=== PATIENT | female | born 1945 | race Caucasian/White ===

== ENCOUNTER → 2016-07-01 | Outpatient (CLI) | payer BC ==
[~2016-07-01] MED LIST: ALPR0.25 PO; AMLO5TAB4 PO; APR25 PO; ASPCH81X PO; ATEN50TA8 PO; CARV12.52 PO; CHOL100010 PO; CLB/200 PO; FLUO40CA8 PO; FLUT0.15 NAE; FURO-85 PO; FURO20TA PO; GABA-1218 PO; GLC/500 PO; HYDR-4717 PO; HYDR200T5 PO; HYT/2 PO; IRON5TAB PO; LPT/40 PO; MECL1TAB40 PO; NITR0.1S UT; NITRSPR6 OR; NRV5 PO; OMEP20CA59 PO; OXYSR10 PO; PANT40TA PO; SNK PO; TAMS0.4C38 PO; VSC/10 PO
[2016-07-01 18:29] LABS: BLOOD UREA NITROGEN 24 mg/dl (7-18); BUN/CREATININE RATIO 29.1 (10-20); CALCIUM 9.3 mg/dl (8.5-10.1); CARBON DIOXIDE 26 mmol/L (21-32); CHLORIDE 107 mmol/L (98-107); CREATININE 0.82 mg/dl (0.60-1.20); GLUCOSE 104 mg/dl (70-99); POTASSIUM 4.3 mmol/L (3.5-5.1); SODIUM 142 mmol/L (136-145)
[2016-07-02 06:54] LABS: ESTIMATED AVERAGE GLUCOSE 128 mg/dl; HA1C FLAG Normal (Normal)
== END | disposition home or self-care (01) ==
LOC: C.LABPVFM 16:04
PROVIDERS: ATTEND Family Medicine
DX: E11.9 Type 2 diabetes mellitus without complications (principal)

== ENCOUNTER → 2016-09-30 | Outpatient (CLI) | payer BC ==
--- NOTE | 2016-10-01 07:55 | MAMMOGRAPHY REPORT ---
UNILATERAL LEFT DIGITAL SCREENING MAMMOGRAM TOMOSYNTHESIS WITH CAD: 09/30/2016 CLINICAL HISTORY: Asymptomatic. Personal history of breast cancer. TECHNIQUE: Breast tomosynthesis in addition to standard 2D mammography was performed. Current study was also evaluated with a Computer Aided Detection (CAD) system. Left CC and MLO 2-D and tomosynth esis images were obtained. COMPARISON: Comparison is made to exams dated: 09/30/2015 mammogram, 09/28/2014 mammogram, 09/26/2013 [facility] mogram, 09/21/2012 mammogram, 09/21/2011 mammogram, and 09/30/2010 ultrasound biopsy - [facility]. BREAST COMPOSITION: There are scattered areas of fibroglandular density in the left breast. FINDINGS: There are no suspicious masses, calcifications, or areas of architectural distortion note d in the left breast. There has been no significant interval change compared to prior exams. IMPRESSION: ACR BI-RADS CATEGORY 1: NEGATIVE There is no mammographic evidence of malignancy. A 1 year screening mammogram is recommended. The p atient will receive written notification of the results. Approximately 10% of breast cancers are not detected with mammography. A negative mammographic repor t should not delay biopsy if a clinically suggestive mass is present. Lou Qureshi M.D. ah/:09/30/2016 15:41:25 Orange Peel Operator: Lissy STOREY)(Manuel), [facility] letter sent: Normal 1/2 BI-RADS Code: ACR BI-RADS Category 1: Negative
== END | disposition home or self-care (01) ==
LOC: EDSEX → C.MAMM 14:14
PROVIDERS: ATTEND Surgery
DX: Z12.31 Encounter for screening mammogram for malignant neoplasm of breast (principal); Z85.3 Personal history of malignant neoplasm of breast; Z90.11 Acquired absence of right breast and nipple

== ENCOUNTER → 2017-02-16 | Outpatient (CLI) | payer BC ==
[~2017-02-16] MED LIST changes: -CARV12.52 PO; -FURO20TA PO; -GABA-1218 PO; +GABA300C19 PO; -HYT/2 PO; -NITR0.1S UT; +NITR0.4S76 UT; -NRV5 PO
[2017-02-16 18:05] LABS: HEMATOCRIT 39.8 % (37-47); MEAN CORPUSCULAR HEMOGLOBIN 30.7 pg (25-34); MEAN CORPUSCULAR HGB CONC 30.4 g/dl (32-36); MEAN PLATELET VOLUME 9.3 fL (7.4-10.4); PLATELET COUNT 185 K/uL (130-400); RED BLOOD COUNT 3.94 M/uL (4.2-5.4); WHITE BLOOD COUNT 7.53 K/uL (4.8-10.8)
[2017-02-16 18:23] LABS: BLOOD UREA NITROGEN 16 mg/dl (7-18); BUN/CREATININE RATIO 20.2 (10-20); CALCIUM 9.3 mg/dl (8.5-10.1); CARBON DIOXIDE 28 mmol/L (21-32); CHLORIDE 107 mmol/L (98-107); CREATININE 0.81 mg/dl (0.60-1.20); GLUCOSE 120 mg/dl (70-99); POTASSIUM 4.5 mmol/L (3.5-5.1); SODIUM 141 mmol/L (136-145)
[2017-02-17 06:32] LABS: ESTIMATED AVERAGE GLUCOSE 131 mg/dl; HA1C FLAG Normal (Normal)
== END | disposition home or self-care (01) ==
LOC: C.LABPVFM 11:25
PROVIDERS: ATTEND Family Medicine
DX: E87.5 Hyperkalemia (principal); E11.40 Type 2 diabetes mellitus with diabetic neuropathy, unspecified; D64.9 Anemia, unspecified

== ENCOUNTER → 2017-03-30 | Outpatient (CLI) | payer BC ==
[~2017-03-30] MED LIST changes: -CLB/200 PO; -FLUT0.15 NAE; -GABA300C19 PO; -HYDR-4717 PO; -HYDR200T5 PO; -IRON5TAB PO; -NITR0.4S76 UT; -PANT40TA PO
[2017-03-30 12:19] LABS: BASO % 0.4 %; BASO ABS # 0.03 K/uL (0-0.2); COMPLETE YES; EOS % 2.9 %; HEMATOCRIT 36.3 % (37-47); IG% 0.4 %; LYMPH % 29.8 %; LYMPH ABS # 2.06 K/uL (1.2-3.4); MEAN CELL VOLUME 98.6 fL (80-100); MEAN CORPUSCULAR HEMOGLOBIN 31.5 pg (25-34); MEAN PLATELET VOLUME 9.1 fL (7.4-10.4); MONO % 7.9 %; NEUT % 58.6 %; PLATELET COUNT 151 K/uL (130-400); RED BLOOD COUNT 3.68 M/uL (4.2-5.4); WHITE BLOOD COUNT 6.92 K/uL (4.8-10.8)
[2017-03-30 12:28] LABS: ALT/SGPT 16 U/L (12-78); AST/SGOT 14 U/L (15-37); CREATININE 0.78 mg/dl (0.60-1.20)
[2017-03-30 12:29] LABS: ALKALINE PHOSPHATASE 67 U/L (45-117)
== END | disposition home or self-care (01) ==
LOC: C.LAB1850 10:02
PROVIDERS: ATTEND Internal Medicine Rheumatology
DX: Z51.81 Encounter for therapeutic drug level monitoring (principal); M15.9 Polyosteoarthritis, unspecified; M70.62 Trochanteric bursitis, left hip; Z79.899 Other long term (current) drug therapy

== ENCOUNTER 2017-05-26 06:56 | Inpatient (IN) | payer BC, OTHER ==
[2017-05-26] VITALS (25 sets, daily range): BP systolic 126–196; BP diastolic 61–127; PULSE 59–85; TEMP 36.4–36.6; O2SAT 92–100; Ht 172.7 cm; Wt 106.2 kg
[~2017-05-26] VITALS: Ht 172.7 cm; Wt 106.2 kg
[~2017-05-26 06:56] MED LIST changes: -APR25 PO; -ATEN50TA8 PO; -CHOL100010 PO; +FLUT0.15 NAE; -FURO-85 PO; +GABA-1218 PO; +HYDR-4717 PO; +HYDR200T5 PO; +IRON5TAB PO; +NITR0.1S UT; -NITRSPR6 OR; -OMEP20CA59 PO; -OXYSR10 PO; +PANT40TA PO; -SNK PO; -TAMS0.4C38 PO; -VSC/10 PO
[2017-05-26] MEDS ORDERED: CARV12.52 PO (07:31)
[2017-05-26] MEDS ORDERED: FURO20TA PO (07:31)
[2017-05-26] MEDS ORDERED: HEPARIN SOD (PORCINE) 1000 UNIT/ML 10 ML VIAL ONE (07:48)
[2017-05-26] MEDS ORDERED: NITROGLYCERIN/D5W 100MCG/ML 20ML SYR ONE (07:48)
[2017-05-26] MEDS ORDERED: FENTANYL CITRATE INJ 50 MCG/1 ML 2 ML VIAL ONE (07:48)
[2017-05-26] MEDS ORDERED: NiCARDipine HCL INJ 2.5 MG/ML 10 ML AMP ONE (07:48)
[2017-05-26] MEDS ORDERED: MIDAZOLAM HCL 1 MG/ML 2ML VIAL ONE (07:48)
--- NOTE | 2017-05-26 07:57 | History & Physical Bridge Note ---
H&P Re-Evaluation Bridge Note: I have examined the patient, reviewed the History & Physical and in the interval since the performance of the History & Physical I have noted the following changes of clinical significance: No changes noted
--- NOTE | 2017-05-26 08:01 | Procedure Note ---
Pre-Mod Sedation Assessment General Date of Moderate Sedation: May 26, 2017. Vital Signs: Vital Signs Past 12 Hours Date Time Temp Pulse Resp B/P (MAP) Pulse Ox O2 Delivery O2 Flow Rate FiO2 05/26/17 07:15 36.6 63 18 160/86 97 Room Air Review Cardiovascular: regular rate, rhythm, no edema, no JVD, no murmur Abdomen: normal bowel sounds, non tender, soft Lungs: chest non-tender, lungs clear, normal breath sounds Pre-Sedation Airway Assessment Oral Cavity: Dentures Short Thick Neck: No Hx of Sleep Apnea: No Smoking Status: Former Smoker Mallampati Classification: Class III ASA Classification: Class II Procedure Planning Contraindications-for Mod Sed: None Yes Notes The planned sedation has been discussed with the patient and consent obtained. I have identified the patient, determined the appropriateness of sedation and have assessed the patient immediately prior to the procedure. All medicine(s) and interventions are by my order.
--- NOTE | 2017-05-26 09:34 | Procedure Note ---
Post-Mod Sedation Assessment General Date of Moderate Sedation May 26, 2017. Vital Signs: Vital Signs Past 12 Hours Date Time Temp Pulse Resp B/P (MAP) Pulse Ox O2 Delivery O2 Flow Rate FiO2 05/26/17 09:20 55 18 149/69 (95) 99 Oxymask 05/26/17 07:15 36.6 63 18 160/86 97 Room Air Review - Discharge Criteria Vital Signs Stable: Yes Alert/Oriented/Conversant: Yes Returned to Baseline Mental St: Yes Nausea Absent/Minimal: Yes Pain/Discomfort/Absent/Minimal: Yes Normal/Baseline Respirations: Yes Active Bleeding?: No Pt Received D/C Instructions: Yes Prescriptions Given: None Specific Proced. D/C Criteria Distal Pulses Present (Cardiac: Yes Groin site assessed-Card Cath: Yes Voided Prior To Discharge: Yes Discharged Patients Adult Escort/Transportation: Yes
--- NOTE | 2017-05-26 09:55 | DIAGNOSTIC IMAGING REPORT ---
HEAD WITHOUT CONTRAST (CT) CLINICAL HISTORY: 71 years-old Female presenting with facial asymmetry, left sided numbness. TECHNIQUE: Multidetector CT imaging of the head was performed without the use of intravenous contrast. IV contrast: None. A dose lowering technique was used consistent with the principles of ALARA (as low as reasonably achievable). COMPARISON: 04/10/2017. CT DOSE (mGy.cm): The estimated cumulative dose is 537.48 mGy.cm. FINDINGS: Bank Compliance Officer topogram: Unremarkable. Ventricles and sulci normal in size. Brain parenchyma normal in appearance with preserved head-white differentiation. No mass effect or midline shift. No hemorrhage or acute territorial infarct. No extra-axial fluid collection. Paranasal sinuses and mastoid air cells clear. Calvarium intact. IMPRESSION: 1. No acute intracranial abnormality. Electronically signed by: Neeraj Gandhi M.D. 05/26/2017 9:54 AM Dictated Date/Time: 05/26/2017 9:51 AM
--- NOTE | 2017-05-26 10:21 | Cardiac Catheterization ---
Procedure Note Procedure Date May 26, 2017. Pre-Procedure Diagnosis Positive Stress Test, CAD, Cardiothoracic Symptom AUC Score 8 Post-Procedure Diagnosis Mild CAD Procedure(s) Performed Coronary Angiography, Left Heart Cath Wallpaper Inspector And Shipper Dr. 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 Moderate to severe distal abdominal aortic stenosis. Hemodynamics Rest Ao: 149/56/93 Final Ao: 159/56/94 LV: 160/0/13 Recommendations Medical therapy and/or Counseling Specimens None Radiation Exposure (mGy) 826 Contrast (mls) 100 Anesthesia Moderate sedation. Start 0818. End 0917. Sedation monitor Ernesto GOMES Procedural Complication(s) facial asymmetry concerning for TIA / CVA. Stroke alert called. Disposition ICU ACC Data Cardiac Status Clinical evaluation leading to the procedure CAD Presntation: Positive Stress Test Anginal Classification: CCS II Heart Failure: No Stress Testing w/SPECT MPI: Yes - Positive, Risk/Extent of Ischemia (High) Coronary Anatomy Dominant: Right Left Main (% Stenosis): Proximal (20%) LAD (% Stenosis): Mid (10%), Distal (20%) Circumflex (% Stenosis): Normal RCA (% Stenosis): Proximal (20% in area of moderate calcification), Mid (30% ini area of moderate calcification) R PDA (% Stenosis): Ostial (20%) Ramus (% Stenosis): Normal Diagnostic Status: Elective Closure Device Percutaneous Entry Location: Femoral (Unable to pass wire due to brachiocephali )
[2017-05-26] MEDS ORDERED: FUROSEMIDE 20 MG TAB PO PRN (10:30)
[2017-05-26 10:37] LABS: BASO % 0.3 %; BASO ABS # 0.02 K/uL (0-0.2); EOS % 1.5 %; HEMATOCRIT 35.8 % (37-47); LYMPH % 25.4 %; LYMPH ABS # 1.52 K/uL (1.2-3.4); MEAN CELL VOLUME 98.1 fL (80-100); MEAN PLATELET VOLUME 8.7 fL (7.4-10.4); MONO % 9.3 %; NEUT % 63.5 %; PLATELET COUNT 130 K/uL (130-400); RED BLOOD COUNT 3.65 M/uL (4.2-5.4); WHITE BLOOD COUNT 5.99 K/uL (4.8-10.8)
[2017-05-26 10:48] LABS: COMPLETE YES; MEAN CORPUSCULAR HGB CONC 31.6 g/dl (32-36)
[2017-05-26 11:00] LABS: ALB/GLOB RATIO 1.2 (0.9-2); BUN/CREATININE RATIO 24.8 (10-20); CREATININE 0.73 mg/dl (0.60-1.20)
[2017-05-26] MEDS ORDERED: ACETAMINOPHEN 325 MG TAB ONE (12:44)
--- NOTE | 2017-05-26 12:48 | Critical Care Consultation ---
Critical Care Consultation Date of Consultation: May 26, 2017. Attending Physician: Reynold Kitchen DO Reason for Consultation: CVA symptoms during cardiac catheterization with nonobstructive CAD History of Present Illness Polymerization Helper: Dr. Bañuelos This is a 71-year-old female that presented earlier today for an elective cardiac catheterization with Dr. Kitchen. The patient previously had [place] and was treated in 1991. She also has a history of breast cancer which was treated with modified radical mastectomy. The patient follows with Dr. Pelayo at the [facility]. She is most recently seen by Dr. Morris for hospital follow-up from her recent admission to [facility]. The patient does have a history of uncontrolled hypertension and has been reporting blood pressures in the 180s and 190s. At the office sure his reported that her blood pressure is constantly above 150 systolic and cons above a diastolic of 80. For blood pressure control the patient takes amlodipine, carvedilol, hydralazine, and furosemide. She was recently seen by Ray Monsivais PA-C at [facility]. She was referred by him to Dr. Kitchen for the cardiac catheterization. During the procedure today, the patient experienced facial asymmetry, numbness and tingling of the extremities. A stroke alert was called and telemedicine was used to communicate with the stroke neurologist at [facility]. His evaluation was to continue with conservative treatment and monitor overnight. The patient is currently on aspirin 81 mg daily which she felt was adequate for her symptoms. At the time of my examination the patient denied any nausea or vomiting. She had minimal residual numbness and tingling of the hand and fingers. She had no aphasia. She denied headache to me but complained of headache to the nurse for which she was treated with acetaminophen. She has no other neurological deficits. Past Medical/Surgical History Medical Problems: (1) CVA (cerebral vascular accident) (2) Diabetes mellitus type 2 managed with metformin with most recent hemoglobin A1c below 7 (3) Dyslipidemia (4) History of breast cancer (5) HTN (hypertension) (6) Hypertensive emergency (7) IBS (irritable bowel syndrome) (8) osteoarthritis (9) diabetic neuropathy (10) history of vertigo (11) GERD (12) depression/anxiety Surgical Problems: (1) H/O repair of right rotator cuff with history of shoulder replacement (2) History of bilateral knee arthroplasty (3) History of cholecystectomy (4) History of modified radical mastectomy of right breast (5) Status post renal artery angioplasty Family History Asthma Diabetes mellitus Hypertension Myocardial infarction Stroke Family history of acute myocardial disease Family history of diabetes mellitus Family history of stroke syndrome Mother with history of heart disease Social History Smoking Status: Former Smoker (quit in 1991) Smokeless Tobacco Use: No Alcohol Use: none Drug Use: none Marital Status: Housing Status: lives with family 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) Allergies Coded Allergies: NSAIDs (Verified Adverse Reaction, Unknown, GI UPSET, 04/10/17) Nadolol (Verified Adverse Reaction, Unknown, GI UPSET, 04/10/17) Nitroglycerin (Verified Adverse Reaction, Unknown, HEADACHE, 04/10/17) Home Medications Scheduled Amlodipine Besylate (Norvasc), 2.5 MG PO QAM Aspirin (Aspirin Chewable), 81 MG PO DAILY Atorvastatin (Lipitor), 40 MG PO QPM Carvedilol (Coreg), 1 TAB PO BID Fluoxetine Hcl (Prozac), 40 MG PO QAM Furosemide (Lasix), 1 TAB PO PRN Gabapentin (Neurontin), 300 MG PO HS Hydralazine Hcl (Apresoline), 50 MG PO TID Hydroxychloroquine Sulfate (Plaquenil), 200 MG PO BIDM Iron-Vitamin C (Iron 100/C), 1 TAB PO DAILY Metformin Hcl (Glucophage), 500 MG PO TID Pantoprazole (Protonix), 40 MG PO DAILY Scheduled PRN Meclizine Hcl (Meclizine Hcl), 1 TAB PO Q8 PRN for Dizziness or Vertigo Nitroglycerin (Nitroglycerin Lingual), 1 SPRAY UT UD PRN for CHEST PAIN Current Inpatient Medications Current Inpatient Medications Medications (Trade) Dose Ordered Sig/Miguelito Route Start Time Stop Time Status Last Admin Dose Admin Amlodipine Besylate (Norvasc Tab) 2.5 mg QAM PO 05/27/17 09:00 06/26/17 08:59 Aspirin (Ecotrin Tab) 81 mg DAILY PO 05/27/17 09:00 06/26/17 08:59 Atorvastatin Calcium (Lipitor Tab) 40 mg QPM PO 05/26/17 21:00 06/25/17 20:59 Carvedilol (Coreg Tab) 12.5 mg BID PO 05/26/17 21:00 06/25/17 20:59 Fluoxetine HCl (Prozac Cap) 40 mg QAM PO 05/27/17 09:00 06/26/17 08:59 Furosemide (Lasix Tab) 20 mg DAILY PRN PO 05/26/17 10:30 06/25/17 10:29 Gabapentin (Neurontin Cap) 300 mg HS PO 05/26/17 21:00 06/25/17 20:59 Hydralazine HCl (Apresoline Tab) 50 mg TID PO 05/26/17 14:00 06/25/17 13:59 Hydroxychloroquine Sulfate (Plaquenil Tab) 200 mg BIDM PO 05/26/17 16:30 06/25/17 17:59 Pantoprazole Sodium (Protonix Tab) 40 mg DAILY PO 05/27/17 09:00 06/26/17 08:59 Review of Systems A total of 12 systems was reviewed and is negative other than as listed above in the HPI Physical Exam Date Time Temp Pulse Resp B/P (MAP) Pulse Ox O2 Delivery O2 Flow Rate FiO2 05/26/17 12:10 36.4 60 16 178/83 (114) 98 Room Air 05/26/17 12:00 97 Room Air 05/26/17 12:00 36.4 60 16 178/83 (114) 96 Room Air 05/26/17 11:55 61 14 185/92 (123) 98 05/26/17 11:40 36.4 60 19 184/81 (115) 96 05/26/17 11:25 36.5 85 18 185/84 (117) 100 Room Air 05/26/17 11:00 36.6 60 20 173/74 (107) 98 Room Air 05/26/17 10:45 59 16 172/82 (112) 99 Room Air 05/26/17 10:30 63 16 168/127 (141) 95 Room Air 05/26/17 10:15 36.4 59 14 162/97 (118) 97 Room Air 05/26/17 10:00 36.4 59 19 155/81 (105) 97 Room Air 05/26/17 09:56 36.4 59 19 155/81 97 Room Air 05/26/17 09:35 55 18 140/61 (87) 96 Room Air 05/26/17 09:20 55 18 149/69 (95) 99 Oxymask 05/26/17 07:15 36.6 63 18 160/86 97 Room Air GENERAL : No acute distress. Pleasant EYES: No icterus, gaze conjugate. EOMI. Pupils equal and reactive NOSE: No evidence of epistaxis. MOUTH: No lesions or candidiasis. Upper and lower dentures in place. No tongue deviation NECK: Supple. No carotid bruits or stridor appreciated LUNGS: CTA B/L, no wheezes, rales or rhonchi. Unable to listen to posterior lung enriquez secondary to mandatory supine position status post groin approach for catheterization HEART: Regular, rate controlled. No murmurs gallops or rubs appreciated. Rate in the 60s ABDOMEN: Soft, NT, ND, BS Present. No rebound tenderness or guarding EXTREMITIES: No LE edema, pedal pulses intact. Patient with what appeared to be sebaceous cysts on bilateral shins. No discharge. No open wounds. NEURO: A&OX3. Facial asymmetry has resolved. Patient has slight pronator drift at onset of symptoms. This has resolved. No other neurological focal signs. Unable to ambulate secondary to recent procedure. NIH scale 3 per [place] neurologist Laboratory Results Last 24 Hours Test 05/26/17 10:28 White Blood Count 5.99 K/uL Red Blood Count 3.65 M/uL Hemoglobin 11.3 g/dL Hematocrit 35.8 % Mean Corpuscular Volume 98.1 fL Mean Corpuscular Hemoglobin 31.0 pg Mean Corpuscular Hemoglobin Concent 31.6 g/dl Platelet Count 130 K/uL Mean Platelet Volume 8.7 fL Neutrophils (%) (Auto) 63.5 % Lymphocytes (%) (Auto) 25.4 % Monocytes (%) (Auto) 9.3 % Eosinophils (%) (Auto) 1.5 % Basophils (%) (Auto) 0.3 % Neutrophils # (Auto) 3.80 K/uL Lymphocytes # (Auto) 1.52 K/uL Monocytes # (Auto) 0.56 K/uL Eosinophils # (Auto) 0.09 K/uL Basophils # (Auto) 0.02 K/uL RDW Standard Deviation 46.8 fL RDW Coefficient of Variation 13.1 % Immature Granulocyte % (Auto) 0.0 % Immature Granulocyte # (Auto) 0.00 K/uL Prothrombin Time 11.0 SECONDS Prothromb Time International Ratio 1.0 Activated Partial Thromboplast Time 26.0 SECONDS Partial Thromboplastin Ratio 1.0 Sodium Level 140 mmol/L Potassium Level 4.0 mmol/L Chloride Level 107 mmol/L Carbon Dioxide Level 26 mmol/L Anion Gap 7.0 mmol/L Blood Urea Nitrogen 18 mg/dl Creatinine 0.73 mg/dl Est Creatinine Clear Calc Drug Dose 89.7 ml/min Estimated GFR () 95.4 Estimated GFR (Non- 82.3 BUN/Creatinine Ratio 24.8 Random Glucose 134 mg/dl Calcium Level 9.0 mg/dl Total Bilirubin 0.6 mg/dl Aspartate Amino Transf (AST/SGOT) 20 U/L Alanine Aminotransferase (ALT/SGPT) 23 U/L Alkaline Phosphatase 63 U/L Total Protein 6.7 gm/dl Albumin 3.6 gm/dl Globulin 3.1 gm/dl Albumin/Globulin Ratio 1.2 Diagnostic Results HEAD WITHOUT CONTRAST (CT) CLINICAL HISTORY: 71 years-old Female presenting with facial asymmetry, left sided numbness. TECHNIQUE: Multidetector CT imaging of the head was performed without the use of intravenous contrast. IV contrast: None. A dose lowering technique was used consistent with the principles of ALARA (as low as reasonably achievable). COMPARISON: 04/10/2017. CT DOSE (mGy.cm): The estimated cumulative dose is 537.48 mGy.cm. FINDINGS: Box Turner topogram: Unremarkable. Ventricles and sulci normal in size. Brain parenchyma normal in appearance with preserved head-white differentiation. No mass effect or midline shift. No hemorrhage or acute territorial infarct. No extra-axial fluid collection. Paranasal sinuses and mastoid air cells clear. Calvarium intact. IMPRESSION: 1. No acute intracranial abnormality. Electronically signed by: Neeraj Gandhi M.D. 05/26/2017 9:54 AM Assessment & Plan This a 71-year-old female that presented to the intensive care unit after a stroke alert was called intraoperatively during cardiac catheterization. Patient had failed approach from the right radial artery. Approach was then made from the femoral artery. Catheterization was completed with non-occluded CAD as a summary. Patient was transferred to room 111 for telemedicine consult with [place] neurologist. After full evaluation it was determined the patient was not a TPA candidate. Patient was continued on lipid and aspirin 81 mg. Patient will be monitored in the intensive care unit for the remainder of her workup secondary to possible stroke and uncontrolled hypertension. NEURO Patient had stroke alert secondary to facial asymmetry and pronator drift No residual neurological deficits or focal No TPA per [place] neurologist gps navigation installer Continue with stroke alert protocol - order set was used Continue with aspirin 81 mg by mouth daily Continue to monitor with neuro checks per protocol Neurology consulted - appreciate Dr. Rutledge input MRI/MRA tomorrow morning CAD Cardiac catheterization completed by Dr. Kitchen Nonocclusive disease Continue treatment for uncontrolled hypertension Continue aspirin 81 mg daily Further management per cardiology POORLY CONTROLLED HYPERTENSION Patient multiple agents Continue with home regimen Cardiac regimen per cardiology Cardiology consult placed - appreciate Dr. Kitchen's input Maintain systolic blood pressure around 160 today for good perfusion Patient reports that a typical blood pressure is 180-200 systolically Further management per cardiology PULMONARY Patient with prior tobacco abuse history - quit in 1991 Patient denies current pulmonary disease No home supplemental O2 use No home nebulizers or bronchodilators Check a chest x-ray for baseline comparison Follow clinically ELECTROLYTES Magnesium 1.7 - replete with 2 g of IV magnesium Follow serial labs Other electrolytes are balanced ENDOCRINE History of diabetes mellitus type 2 with baseline hemoglobin A1c below seven Patient uses metformin No insulin history as an outpatient Glycemic consult with pharmacy for further management BSG's before meals and at bedtime HEME Question of chronic anemia in outpatient notes Current hemoglobin 11.3 with hematocrit of 35.8 No difficulty with bleeding at catheterization sites Continue to monitor arterial puncture sites NUTRITION Patient tolerated bedside swallow test Continue with diabetic AHA diet as tolerated RENAL No history of chronic kidney disease No renal insufficiency with admission labs Continue to follow clinically ID No recent illness No leukocytosis No fever No nausea or vomiting. No diarrhea MRSA swab is negative GI History of GERD Continue with home dose of pantoprazole No indication for [place] catheter at this time DVT PROPHYLAXIS SCDs TEDs No chemical prophylaxis at this time secondary to possible stroke CCT: 40 minutes Thank you for including us in the care of this patient. Please refer to Dr. Bañuelos's addendum for further recommendations Resident Physician Supervision Note: I was present with Joao Wong during the history and exam. I discussed the case with Emmy and agree with the findings and plan as documented in the note. Briefly, 71 yo with Hx as above including remote KY and Breast CA s/p chemo now admitted S/p attempted elective cath ( done for Stress Echo + for ischemia) which was aborted due to new onset sensory neuro deficits as described ( unilateral facial numbness, facial droop), but no motor deficits; Head CT negative for acute CVA, as per Neurology - no TPA nor intervention planned; PLAN: - MRI in am; able to swallow; PT/OT; Neuro checks; Etiology of deficit likely due to disrupted plaque ? atheroma of aorta; Chart reviewed - had carotid dopplers w/o significant stenosis; - Defer to cardiology to do complete cath once neurological issues resolved; - Currently stable hemodynamically and from respiratory standpoint, labs and imaging reviewed; Met with patient and her , obtained history and updated on the plan of care as well as answered their questions to the best of my ability. Documented By: Kayden Bañuelos
[2017-05-26] MEDS ORDERED: ONDANSETRON INJ 2 MG/ML 2 ML VIAL IV PRN (13:00)
[2017-05-26] MEDS ORDERED: PHARMACIST DISCHARGE MED REC CONSULT PRN (13:00)
[2017-05-26 13:26] LABS: CHOLESTEROL/HDL RATIO 1.6; MAGNESIUM 1.7 mg/dl (1.8-2.4)
[2017-05-26] MEDS ORDERED: PHARMACY GLYCEMIC MGMT CONSULT STA (14:47)
[2017-05-26] MEDS ORDERED: PHARMACY GLYCEMIC MGMT CONSULT PRN (15:15)
[2017-05-26] MEDS: MAGNESIUM SULFATE 1GM / D5W 1 GM in PREMIXED IN D5W 100 ML IV SCH ×2 (15:31→16:32)
--- NOTE | 2017-05-26 15:52 | Pharmacy Progress Note ---
Glycemic Control Intl Consult Date of Service May 26, 2017. Scope Glycemic Pharmacist consulted by Lindsey SANTORO on 05/26/17 for glycemic control and to write orders per [facility] inpatient glycemic control protocol Objective Weight (Kilograms): 106.500 Accuchecks BSG (last 24hrs): Test 05/26/17 10:02 05/26/17 10:28 Bedside Glucose 124 mg/dl (70-90) Random Glucose 134 mg/dl (70-99) Laboratory Data (last 24hrs) Test 05/26/17 10:28 Anion Gap 7.0 mmol/L BUN/Creatinine Ratio 24.8 Blood Urea Nitrogen 18 mg/dl Creatinine 0.73 mg/dl Potassium Level 4.0 mmol/L Sodium Level 140 mmol/L White Blood Count 5.99 K/uL Red Blood Count 3.65 M/uL Hemoglobin 11.3 g/dL Hematocrit 35.8 % Mean Corpuscular Volume 98.1 fL Mean Corpuscular Hemoglobin 31.0 pg Mean Corpuscular Hemoglobin Concent 31.6 g/dl Platelet Count 130 K/uL Mean Platelet Volume 8.7 fL Neutrophils (%) (Auto) 63.5 % Lymphocytes (%) (Auto) 25.4 % Monocytes (%) (Auto) 9.3 % Eosinophils (%) (Auto) 1.5 % Basophils (%) (Auto) 0.3 % Neutrophils # (Auto) 3.80 K/uL Lymphocytes # (Auto) 1.52 K/uL Monocytes # (Auto) 0.56 K/uL Eosinophils # (Auto) 0.09 K/uL Basophils # (Auto) 0.02 K/uL HbA1c 6.2% 02/16/17 Recent Pertinent Medications Outpatient Anti-diabetic Regimen: * Metformin 500mg PO TID * A1c = 6.2 % 02/16/17 Risk Factors for Insulin Resistance: * Recent Surgery: s/p elective cardiac cath today * Diet: ordered T2DM / AHA diet Assessment & Plan ASSESSMENT: 05/26/17 * Well controlled type 2 diabetic admitted to ICU today following stroke-like symptoms experienced in the cardiac lab technician during elective procedure * Patient's glycemic control adequate based upon most recent A1c w/ the use of metformin monotherapy * Metformin now on hold following receipt of IV contrast media during today's procedure * Will begin SQ basal/bolus regimen based upon weight and moderate stress level PLAN FOR INPATIENT GLYCEMIC CONTROL: * Lantus SQ BID based upon the following scale: * BSG below 110 give 0 units * BSG 110 - 180 give 10 units * BSG above 180 give 18 units * BSGs ACHS and cover with SQ Novolog * Correction factor 20 mg/dl/unit * Carb ratio 1 unit per 7 grams CHO consumed * Goal range Low 110 mg/dL - High 140 mg/dL * If BSG greater than 180 x 2 consecutive checks, begin insulin drip per moderate stress protocol with goal range 110 - 200 mg/dL * Please note that the plan above was derived based on current level of insulin resistance and hospital stress. These recommendations are appropriate for inpatient admission only. Plan of care upon discharge will need to be reassessed to avoid potential outpatient hypo/hyperglycemia. Thank you.
[2017-05-26] MEDS: INSULIN ASPART 100 UNITS/ML 3 ML PEN SC SCH ×2 (16:00→20:47)
[2017-05-26] MEDS: HYDROXYCHLOROQUINE SULFATE 200 MG TAB PO SCH (16:57)
[2017-05-26] MEDS: ACETAMINOPHEN 325 MG TAB PO PRN (19:49)
[2017-05-26] MEDS: INSULIN GLARGINE SOLOSTAR 100 UNITS/ML 3 ML PEN SC SCH (20:46)
[2017-05-26] MEDS: CARVEDILOL 12.5 MG TAB PO SCH (20:49)
[2017-05-26] MEDS ORDERED: GABAPENTIN 300 MG CAP PO SCH (21:00)
[2017-05-26] MEDS ORDERED: ATORVASTATIN 20 MG TAB PO SCH (21:00)
[2017-05-27] VITALS (7 sets, daily range): BP systolic 132–166; BP diastolic 51–131; PULSE 56–78; TEMP 36.8; O2SAT 90–96
[2017-05-27] MEDS: ACETAMINOPHEN 325 MG TAB PO PRN (05:09)
[2017-05-27 05:59] LABS: HEMATOCRIT 35.3 % (37-47); MEAN CELL VOLUME 98.6 fL (80-100); MEAN CORPUSCULAR HEMOGLOBIN 30.4 pg (25-34); MEAN CORPUSCULAR HGB CONC 30.9 g/dl (32-36); MEAN PLATELET VOLUME 8.8 fL (7.4-10.4); PLATELET COUNT 117 K/uL (130-400); RED BLOOD COUNT 3.58 M/uL (4.2-5.4); WHITE BLOOD COUNT 6.63 K/uL (4.8-10.8)
[2017-05-27 06:02] LABS: ESTIMATED AVERAGE GLUCOSE 128 mg/dl; HA1C FLAG Normal (Normal)
[2017-05-27 06:21] LABS: BUN/CREATININE RATIO 20.9 (10-20); CALCIUM 8.9 mg/dl (8.5-10.1); CREATININE 0.79 mg/dl (0.60-1.20); POTASSIUM 4.4 mmol/L (3.5-5.1)
[2017-05-27] MEDS: [UNRECOGNIZED DRUG - REMARK] SCH ×2 (06:45→11:00)
--- NOTE | 2017-05-27 07:03 | Clinical Documentation Query ---
CLINICAL DOCUMENTATION QUERY 71-y/o female who was undergone cardiac catheterization who experienced facial asymmetry, numbness, and tingling of extremities. A stroke alert was called. In your clinical opinion is this patient being managed for: ( ) Possible postprocedural CVA ( ) Possible postprocedural TIA ( ) Not Agree ( ) Other explanation of clinical findings (Please Explain) ( ) Unable to determine (Please Define) ( ) Need to Discuss The medical record reflects the following clinical findings, treatment, and risk factors. Clinical Indicators: As above. Treatment: Stroke alert, ICU hemodynamic monitoring, q2hr neurochecks, NIHSS assessments, Neurology consult, Head CT, Brain MRI, Risk Factors: Age, CAD, DM type II, HTN Please clarify and document your clinical opinion in the progress notes and discharge summary. Terms such as "probable", "suspected", "likely", "questionable", "possible", or "still to be ruled out" are acceptable. IF IN AGREEMENT, YOU MUST DOCUMENT ABOVE DIAGNOSTIC STATEMENT IN DAILY PROGRESS NOTES AND DISCHARGE SUMMARY. This document is not part of the patient's record. Thank You, Hernandez Chavez RN [phone]
--- NOTE | 2017-05-27 07:05 | Clinical Documentation Query ---
CLINICAL DOCUMENTATION QUERY 71-y/o female who was undergone cardiac catheterization who experienced facial asymmetry, numbness, and tingling of extremities. A stroke alert was called. No documentation exists to say possible/still be ruled out Stroke or TIA. In your clinical opinion is this patient being managed for: (X ) Possible postprocedural CVA ( ) Possible postprocedural TIA ( ) Not Agree ( ) Other explanation of clinical findings (Please Explain) ( ) Unable to determine (Please Define) ( ) Need to Discuss The medical record reflects the following clinical findings, treatment, and risk factors. Clinical Indicators: As above. Treatment: Stroke alert, ICU hemodynamic monitoring, q2hr neurochecks, NIHSS assessments, Neurology consult, Head CT, Brain MRI, Risk Factors: Age, CAD, DM type II, HTN Please clarify and document your clinical opinion in the progress notes and discharge summary. Terms such as "probable", "suspected", "likely", "questionable", "possible", or "still to be ruled out" are acceptable. IF IN AGREEMENT, YOU MUST DOCUMENT ABOVE DIAGNOSTIC STATEMENT IN DAILY PROGRESS NOTES AND DISCHARGE SUMMARY. This document is not part of the patient's record. Thank You, Hernandez Chavez, ELISEO [phone]
--- NOTE | 2017-05-27 07:17 | DIAGNOSTIC IMAGING REPORT ---
SINGLE VIEW CHEST CLINICAL HISTORY: Status post cardiac catheterization. Stroke alert. FINDINGS: An AP, portable, upright chest radiograph is compared to study dated 04/10/2017. The cardiomediastinal silhouette is unremarkable. There is atherosclerotic calcification of the thoracic aorta. The pulmonary vasculature is noncongested. There is chronic elevation of the right hemidiaphragm with mild bibasilar atelectasis. The lungs and pleural spaces are otherwise clear. No pneumothorax is seen. The skeletal structures are osteopenic. A right shoulder arthroplasty is in place. IMPRESSION: No acute cardiopulmonary abnormality. Electronically signed by: Joao Dan M.D. 05/27/2017 7:16 AM Dictated Date/Time: 05/27/2017 7:15 AM
--- NOTE | 2017-05-27 08:44 | Neurology Consultation ---
Neurology Consultation Date of Consultation: May 27, 2017. Attending Physician: Ryenold Kitchen DO Primary Care Physician: Neeraj Pelayo M.D. Reason for Consultation: TIA or stroke History of Present Illness Source: patient, hospital records The patient is a 71-year-old female with a chief complaint of left facial numbness and weakness with associated numbness of the left upper extremity which began acutely yesterday morning. Symptoms were noted immediately after undergoing a cardiac catheterization. A tele-stroke consultation was obtained with [facility] at that time. The patient was not considered an appropriate candidate for TPA. I did review the images and radiologist's interpretation of yesterday's CT of the head, the study is unremarkable. No evidence of hemorrhage or acute process. A follow-up brain MRI has been ordered. The patient reports that her symptoms have resolved this morning. The patient does have a past medical history of poorly controlled hypertension and diabetes mellitus complicated by diabetic peripheral neuropathy. 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) Allergies Coded Allergies: NSAIDs (Verified Adverse Reaction, Unknown, GI UPSET, 04/10/17) Nadolol (Verified Adverse Reaction, Unknown, GI UPSET, 04/10/17) Nitroglycerin (Verified Adverse Reaction, Unknown, HEADACHE, 04/10/17) Current Inpatient Medications Current Inpatient Medications Medications (Trade) Dose Ordered Sig/Miguelito Route Start Time Stop Time Status Last Admin Dose Admin Aspirin (Ecotrin Tab) 81 mg DAILY PO 05/27/17 09:00 06/26/17 08:59 Atorvastatin Calcium (Lipitor Tab) 40 mg QPM PO 05/26/17 21:00 06/25/17 20:59 05/26/17 20:49 40 MG Carvedilol (Coreg Tab) 12.5 mg BID PO 05/26/17 21:00 06/25/17 20:59 05/26/17 20:49 12.5 MG Fluoxetine HCl (Prozac Cap) 40 mg QAM PO 05/27/17 09:00 06/26/17 08:59 Furosemide (Lasix Tab) 20 mg DAILY PRN PO 05/26/17 10:30 06/25/17 10:29 Gabapentin (Neurontin Cap) 300 mg HS PO 05/26/17 21:00 06/25/17 20:59 05/26/17 20:49 300 MG Hydralazine HCl (Apresoline Tab) 50 mg TID PO 05/26/17 14:00 06/25/17 13:59 05/26/17 20:48 50 MG Hydroxychloroquine Sulfate (Plaquenil Tab) 200 mg BIDM PO 05/26/17 16:30 06/25/17 17:59 05/26/17 16:57 200 MG Pantoprazole Sodium (Protonix Tab) 40 mg DAILY PO 05/27/17 09:00 06/26/17 08:59 Acetaminophen (Tylenol Tab) 650 mg Q4H PRN PO 05/26/17 12:45 06/25/17 12:44 05/27/17 05:09 650 MG Miscellaneous Information (Pharmacist Discharge Med Rec Consult) 1 ea UD PRN N/A 05/26/17 13:00 06/25/17 12:59 Ondansetron HCl (Zofran Inj) 4 mg Q6H PRN IV 05/26/17 13:00 06/25/17 12:59 Miscellaneous Information (Consult Glycemic Management Pharmacy) 1 ea UD PRN N/A 05/26/17 15:15 06/25/17 15:14 Insulin Aspart (novoLOG ASPART) SLIDING SCALE ACHS SC 05/26/17 16:00 06/25/17 15:59 Insulin Glargine (Lantus Solostar Pen) See protocol text BID SC 05/26/17 21:00 06/25/17 20:59 Miscellaneous Information (Pending Order) 1 ea ACHS N/A 05/26/17 16:00 06/25/17 15:59 Amlodipine Besylate (Norvasc Tab) 5 mg QAM PO 05/27/17 09:00 06/26/17 08:59 Review of Systems Constitutional: No fever or chills Eyes: No vision loss or diplopia ENT: No vertigo or hearing loss Cardiovascular: No chest pain or palpitations Respiratory: No coughing wheezing or shortness of breath Neurological: As per history of present illness Musculoskeletal: No myalgias Skin: No rash Full 10 point review of systems was obtained from this patient with pertinent positives and negatives described in history of present illness and otherwise listed above. All remaining systems reviewed and are negative. Physical Exam Vital Signs (Past 24 Hrs): Date Time Temp Pulse Resp B/P (MAP) Pulse Ox O2 Delivery O2 Flow Rate FiO2 05/27/17 06:00 56 14 156/68 (97) 95 Room Air 05/27/17 04:00 94 Nasal Cannula 2.0 05/27/17 04:00 36.8 58 15 147/70 (95) 94 Room Air 05/27/17 02:00 59 17 132/51 (78) 93 Room Air 05/27/17 00:01 36.8 65 20 136/62 (86) 90 Room Air 05/26/17 23:59 92 Room Air 05/26/17 22:00 62 15 153/61 (91) 96 Room Air 05/26/17 21:00 62 17 126/95 (105) 96 Room Air 05/26/17 20:00 96 Room Air 05/26/17 20:00 36.5 62 19 184/102 (129) 94 Room Air 05/26/17 19:52 64 20 191/78 (115) 97 Room Air 05/26/17 18:00 36.4 62 16 163/63 (96) 97 05/26/17 17:10 36.4 61 16 177/92 (120) 97 Room Air 05/26/17 16:10 36.4 62 16 154/65 (94) 97 Room Air 05/26/17 16:10 36.4 62 16 154/65 (94) 97 05/26/17 16:00 Room Air 05/26/17 15:10 36.4 59 16 155/73 (100) 98 Room Air 05/26/17 14:10 36.4 61 16 147/74 (98) 97 Room Air 05/26/17 14:00 36.4 61 16 147/74 (98) 96 Room Air 05/26/17 13:10 36.4 61 14 169/73 (105) 98 Room Air 05/26/17 12:40 61 18 163/76 (105) 94 Room Air 05/26/17 12:10 36.4 60 16 178/83 (114) 98 Room Air 05/26/17 12:00 97 Room Air 05/26/17 12:00 36.4 60 16 178/83 (114) 96 Room Air 05/26/17 11:55 61 14 185/92 (123) 98 05/26/17 11:40 36.4 60 19 184/81 (115) 96 05/26/17 11:25 36.5 85 18 185/84 (117) 100 Room Air 05/26/17 11:00 36.6 60 20 173/74 (107) 98 Room Air 05/26/17 10:45 59 16 172/82 (112) 99 Room Air 05/26/17 10:30 63 16 168/127 (141) 95 Room Air 05/26/17 10:15 36.4 59 14 162/97 (118) 97 Room Air 05/26/17 10:00 36.4 59 19 155/81 (105) 97 Room Air 05/26/17 09:56 36.4 59 19 155/81 97 Room Air 05/26/17 09:35 55 18 140/61 (87) 96 Room Air 05/26/17 09:20 55 18 149/69 (95) 99 Oxymask The patient is a well-developed, well-nourished elderly female. She is sitting up comfortably in a bedside chair. The patient is alert and oriented to person place and time. Recent and remote memory intact. Attention and concentration normal. Patient exhibits a normal spontaneous speech pattern and age appropriate fund of knowledge. Visual enriquez full to confrontation. Visual acuity normal. Pupils equal round reactive to light and accommodation. Eye movements normal. Facial sensation intact bilaterally. There is normal facial symmetry and strength. No facial droop. Hearing intact bilaterally. Palate elevates to midline. Shoulder shrug strength intact bilaterally. Tongue protrudes to midline. There is a length-dependent deficit to temperature and vibration noted. Proprioception intact. Deep tendon reflexes are 1+ for the arms and legs bilaterally. There is no dysdiadochokinesia or dysmetria with finger to nose or heel to ledezma bilaterally. Ophthalmoscopic examination reveals normal-appearing optic nerves and posterior segments. No papilledema or hemorrhages. Carotid pulses normal bilaterally, no bruits to auscultation. Gait and station not tested due to safety concerns. Patient exhibits normal muscle strength for the arms and legs bilaterally. There is no pronator drift or hemiparesis at this time. Muscle tone normal throughout. No atrophy. No abnormal movements. Laboratory Results Past 24 Hours: 05/27/17 05:32 05/27/17 05:32 Test 05/26/17 10:28 05/26/17 12:53 05/26/17 20:45 05/27/17 05:32 Immature Granulocyte % (Auto) 0.0 % White Blood Count 5.99 K/uL (4.8-10.8) Red Blood Count 3.65 M/uL (4.2-5.4) 3.58 M/uL (4.2-5.4) Hemoglobin 11.3 g/dL (12.0-16.0) Hematocrit 35.8 % (37-47) Mean Corpuscular Volume 98.1 fL (80-100) 98.6 fL (80-100) Mean Corpuscular Hemoglobin 31.0 pg (25-34) 30.4 pg (25-34) Mean Corpuscular Hemoglobin Concent 31.6 g/dl (32-36) 30.9 g/dl (32-36) Platelet Count 130 K/uL (130-400) Mean Platelet Volume 8.7 fL (7.4-10.4) 8.8 fL (7.4-10.4) Neutrophils (%) (Auto) 63.5 % Lymphocytes (%) (Auto) 25.4 % Monocytes (%) (Auto) 9.3 % Eosinophils (%) (Auto) 1.5 % Basophils (%) (Auto) 0.3 % Neutrophils # (Auto) 3.80 K/uL (1.4-6.5) Lymphocytes # (Auto) 1.52 K/uL (1.2-3.4) Monocytes # (Auto) 0.56 K/uL (0.11-0.59) Eosinophils # (Auto) 0.09 K/uL (0-0.5) Basophils # (Auto) 0.02 K/uL (0-0.2) Immature Granulocyte # (Auto) 0.00 K/uL (0.00-0.02) Prothrombin Time 11.0 SECONDS (9.0-12.0) Prothromb Time International Ratio 1.0 (0.9-1.1) Activated Partial Thromboplast Time 26.0 SECONDS (21.0-31.0) Partial Thromboplastin Ratio 1.0 Total Bilirubin 0.6 mg/dl (0.2-1) Aspartate Amino Transf (AST/SGOT) 20 U/L (15-37) Alanine Aminotransferase (ALT/SGPT) 23 U/L (12-78) Alkaline Phosphatase 63 U/L (45-117) Total Protein 6.7 gm/dl (6.4-8.2) Albumin 3.6 gm/dl (3.4-5.0) Globulin 3.1 gm/dl (2.5-4.0) Albumin/Globulin Ratio 1.2 (0.9-2) Magnesium Level 1.7 mg/dl (1.8-2.4) Triglycerides Level 101 mg/dl (0-150) Cholesterol Level 111 mg/dl (0-200) HDL Cholesterol 71 mg/dl LDL Cholesterol, Calculated 20 mg/dl VLDL Cholesterol, Calculated 20 mg/dl Cholesterol/HDL Ratio 1.6 Bedside Glucose 101 mg/dl (70-90) RDW Standard Deviation 47.9 fL (36.4-46.3) RDW Coefficient of Variation 13.3 % (11.5-14.5) Anion Gap 3.0 mmol/L (3-11) Est Creatinine Clear Calc Drug Dose 82.2 ml/min Estimated GFR () 86.7 Estimated GFR (Non- 74.8 BUN/Creatinine Ratio 20.9 (10-20) Estimated Average Glucose 128 mg/dl Hemoglobin A1c 6.1 % (4.5-5.6) Calcium Level 8.9 mg/dl (8.5-10.1) Date/Time Source Procedure Growth Status 05/26/17 11:00 Nasal MRSA DNA Surveillance Screen - Final Specimen Negative for MRSA by DNA Probe Complete Impression Clinically, this patient appears to have experienced a small TIA localizing to the right cerebral hemisphere. Her symptoms have resolved this morning. However , I'm unable to completely exclude a small catheter related embolic stroke given her history. Her neurological examination is currently intact although she does have some findings consistent with her history of diabetic peripheral neuropathy. Plan Agree with obtaining an MRI of the brain to further exclude a small acute infarct. I would also recommend obtaining a carotid ultrasound as well. Continue with aspirin 81 mg per day. Continue management of hypertension and diabetes mellitus as medically appropriate. Consultations with PT/OT/speech therapy as ordered. However, patient does not appear to have any residual neurological deficits that would require rehabilitation at this time. Please contact me if I may be of further assistance
[2017-05-27] MEDS ORDERED: AMLODIPINE BESYLATE 5 MG TAB PO SCH ×2 (09:00)
[2017-05-27] MEDS ORDERED: ASPIRIN 81 MG ECTAB PO SCH (09:00)
[2017-05-27] MEDS ORDERED: FLUOXETINE HCL 20 MG CAP PO SCH (09:00)
[2017-05-27] MEDS ORDERED: PANTOprazole SOD 40 MG TAB PO SCH (09:00)
--- NOTE | 2017-05-27 09:06 | Medical Student: [facility] ---
Consultation Date of Consultation: May 27, 2017. History of Present Illness Patient is a 71 year old female who presented complaining of left facial numbness and eyelid droop after a cardiac catheter yesterday. She describes that after the procedure she felt that her left eyelid was a bit droopy and that she could not feel on the left cheek. She describes that today, 24 hours later, that she no longer feels numb and weak on her left side of her face. 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) Review of Systems Neurologic: + weakness, + numbness/tingling, No memory loss, No balance problems Allergies Coded Allergies: NSAIDs (Verified Adverse Reaction, Unknown, GI UPSET, 04/10/17) Nadolol (Verified Adverse Reaction, Unknown, GI UPSET, 04/10/17) Nitroglycerin (Verified Adverse Reaction, Unknown, HEADACHE, 04/10/17) Medications Current Inpatient Medications Medications (Trade) Dose Ordered Sig/Miguelito Route Start Time Stop Time Status Last Admin Dose Admin Aspirin (Ecotrin Tab) 81 mg DAILY PO 05/27/17 09:00 06/26/17 08:59 Atorvastatin Calcium (Lipitor Tab) 40 mg QPM PO 05/26/17 21:00 06/25/17 20:59 05/26/17 20:49 40 MG Carvedilol (Coreg Tab) 12.5 mg BID PO 05/26/17 21:00 06/25/17 20:59 05/26/17 20:49 12.5 MG Fluoxetine HCl (Prozac Cap) 40 mg QAM PO 05/27/17 09:00 06/26/17 08:59 Furosemide (Lasix Tab) 20 mg DAILY PRN PO 05/26/17 10:30 06/25/17 10:29 Gabapentin (Neurontin Cap) 300 mg HS PO 05/26/17 21:00 06/25/17 20:59 05/26/17 20:49 300 MG Hydralazine HCl (Apresoline Tab) 50 mg TID PO 05/26/17 14:00 06/25/17 13:59 05/26/17 20:48 50 MG Hydroxychloroquine Sulfate (Plaquenil Tab) 200 mg BIDM PO 05/26/17 16:30 06/25/17 17:59 05/26/17 16:57 200 MG Pantoprazole Sodium (Protonix Tab) 40 mg DAILY PO 05/27/17 09:00 06/26/17 08:59 Acetaminophen (Tylenol Tab) 650 mg Q4H PRN PO 05/26/17 12:45 06/25/17 12:44 05/27/17 05:09 650 MG Miscellaneous Information (Pharmacist Discharge Med Rec Consult) 1 UD PRN N/A 05/26/17 13:00 06/25/17 12:59 Ondansetron HCl (Zofran Inj) 4 mg Q6H PRN IV 05/26/17 13:00 06/25/17 12:59 Miscellaneous Information (Consult Glycemic Management Pharmacy) 1 UD PRN N/A 05/26/17 15:15 06/25/17 15:14 Insulin Aspart (novoLOG ASPART) SLIDING SCALE ACHS SC 05/26/17 16:00 06/25/17 15:59 Insulin Glargine (Lantus Solostar Pen) See protocol text BID SC 05/26/17 21:00 06/25/17 20:59 Miscellaneous Information (Pending Order) 1 ACHS N/A 05/26/17 16:00 06/25/17 15:59 Amlodipine Besylate (Norvasc Tab) 5 mg QAM PO 05/27/17 09:00 06/26/17 08:59 Physical Exam Date Time Temp Pulse Resp B/P (MAP) Pulse Ox O2 Delivery O2 Flow Rate FiO2 05/27/17 06:00 56 14 156/68 (97) 95 Room Air 05/27/17 04:00 94 Nasal Cannula 2.0 05/27/17 04:00 36.8 58 15 147/70 (95) 94 Room Air 05/27/17 02:00 59 17 132/51 (78) 93 Room Air 05/27/17 00:01 36.8 65 20 136/62 (86) 90 Room Air 05/26/17 23:59 92 Room Air 05/26/17 22:00 62 15 153/61 (91) 96 Room Air 05/26/17 21:00 62 17 126/95 (105) 96 Room Air 05/26/17 20:00 96 Room Air 05/26/17 20:00 36.5 62 19 184/102 (129) 94 Room Air 05/26/17 19:52 64 20 191/78 (115) 97 Room Air 05/26/17 18:00 36.4 62 16 163/63 (96) 97 05/26/17 17:10 36.4 61 16 177/92 (120) 97 Room Air 05/26/17 16:10 36.4 62 16 154/65 (94) 97 Room Air 05/26/17 16:10 36.4 62 16 154/65 (94) 97 05/26/17 16:00 Room Air 05/26/17 15:10 36.4 59 16 155/73 (100) 98 Room Air 05/26/17 14:10 36.4 61 16 147/74 (98) 97 Room Air 05/26/17 14:00 36.4 61 16 147/74 (98) 96 Room Air 05/26/17 13:10 36.4 61 14 169/73 (105) 98 Room Air 05/26/17 12:40 61 18 163/76 (105) 94 Room Air 05/26/17 12:10 36.4 60 16 178/83 (114) 98 Room Air 05/26/17 12:00 97 Room Air 05/26/17 12:00 36.4 60 16 178/83 (114) 96 Room Air 05/26/17 11:55 61 14 185/92 (123) 98 05/26/17 11:40 36.4 60 19 184/81 (115) 96 05/26/17 11:25 36.5 85 18 185/84 (117) 100 Room Air 05/26/17 11:00 36.6 60 20 173/74 (107) 98 Room Air 05/26/17 10:45 59 16 172/82 (112) 99 Room Air 05/26/17 10:30 63 16 168/127 (141) 95 Room Air 05/26/17 10:15 36.4 59 14 162/97 (118) 97 Room Air 05/26/17 10:00 36.4 59 19 155/81 (105) 97 Room Air 05/26/17 09:56 36.4 59 19 155/81 97 Room Air 05/26/17 09:35 55 18 140/61 (87) 96 Room Air 05/26/17 09:20 55 18 149/69 (95) 99 Oxymask General Appearance: WD/WN, no apparent distress, + obese Eyes: bilateral eyes normal inspection, bilateral eyes PERRL, bilateral eyes EOMI ENT: hearing grossly normal, pharynx normal 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 Extraocular movements were intact and no nystagmus noted. Mental status: Global - alert, attentive, and cooperative Orientation - oriented to name, location, and date Memory - recent and remote memory intact Language - spontaneous speech of normal fluence, rate, and abundance. no paraphasic errors or neologisms or grammar errors present No [id number] confusion, no finger agnosia. calculations and agraphia not tested. Neglect, constructions, praxis not tested Sequencing tasks and frontal release signs - not tested Logic and abstraction - not tested Delusions/Hallucinations/Mood - not tested Cranial nerves: CN1 - olfaction not tested CN2 - visual enriquez intact CN3, 4, 6 - normal eye tracking to all directions CN5 - No trigeminal neuropathy CN7 - no facial palsy CN8 - hearing intact CN9,10 -normal palatal elevation CN11 - shoulder shrug not tested CN12 - no tongue deviation on protrusion Reflexes: As per Dr. Nayak - Deep tendon reflexes are 1+ for the arms and legs bilaterally Motor strength: not tested. Gait and ambulation not tested. Sensation: sensation to cold and touch normal in bilateral face, arms, legs Laboratory Results Last 24 Hours Test 05/26/17 10:02 05/26/17 10:28 05/26/17 11:32 05/26/17 12:53 Bedside Glucose 124 mg/dl 108 mg/dl White Blood Count 5.99 K/uL Red Blood Count 3.65 M/uL Hemoglobin 11.3 g/dL Hematocrit 35.8 % Mean Corpuscular Volume 98.1 fL Mean Corpuscular Hemoglobin 31.0 pg Mean Corpuscular Hemoglobin Concent 31.6 g/dl Platelet Count 130 K/uL Mean Platelet Volume 8.7 fL Neutrophils (%) (Auto) 63.5 % Lymphocytes (%) (Auto) 25.4 % Monocytes (%) (Auto) 9.3 % Eosinophils (%) (Auto) 1.5 % Basophils (%) (Auto) 0.3 % Neutrophils # (Auto) 3.80 K/uL Lymphocytes # (Auto) 1.52 K/uL Monocytes # (Auto) 0.56 K/uL Eosinophils # (Auto) 0.09 K/uL Basophils # (Auto) 0.02 K/uL RDW Standard Deviation 46.8 fL RDW Coefficient of Variation 13.1 % Immature Granulocyte % (Auto) 0.0 % Immature Granulocyte # (Auto) 0.00 K/uL Prothrombin Time 11.0 SECONDS Prothromb Time International Ratio 1.0 Activated Partial Thromboplast Time 26.0 SECONDS Partial Thromboplastin Ratio 1.0 Sodium Level 140 mmol/L Potassium Level 4.0 mmol/L Chloride Level 107 mmol/L Carbon Dioxide Level 26 mmol/L Anion Gap 7.0 mmol/L Blood Urea Nitrogen 18 mg/dl Creatinine 0.73 mg/dl Est Creatinine Clear Calc Drug Dose 89.7 ml/min Estimated GFR () 95.4 Estimated GFR (Non- 82.3 BUN/Creatinine Ratio 24.8 Random Glucose 134 mg/dl Calcium Level 9.0 mg/dl Total Bilirubin 0.6 mg/dl Aspartate Amino Transf (AST/SGOT) 20 U/L Alanine Aminotransferase (ALT/SGPT) 23 U/L Alkaline Phosphatase 63 U/L Total Protein 6.7 gm/dl Albumin 3.6 gm/dl Globulin 3.1 gm/dl Albumin/Globulin Ratio 1.2 Magnesium Level 1.7 mg/dl Triglycerides Level 101 mg/dl Cholesterol Level 111 mg/dl HDL Cholesterol 71 mg/dl LDL Cholesterol, Calculated 20 mg/dl VLDL Cholesterol, Calculated 20 mg/dl Cholesterol/HDL Ratio 1.6 Test 05/26/17 16:31 05/26/17 20:45 05/27/17 05:32 Bedside Glucose 124 mg/dl 101 mg/dl White Blood Count 6.63 K/uL Red Blood Count 3.58 M/uL Hemoglobin 10.9 g/dL Hematocrit 35.3 % Mean Corpuscular Volume 98.6 fL Mean Corpuscular Hemoglobin 30.4 pg Mean Corpuscular Hemoglobin Concent 30.9 g/dl RDW Standard Deviation 47.9 fL RDW Coefficient of Variation 13.3 % Platelet Count 117 K/uL Mean Platelet Volume 8.8 fL Sodium Level 140 mmol/L Potassium Level 4.4 mmol/L Chloride Level 108 mmol/L Carbon Dioxide Level 29 mmol/L Anion Gap 3.0 mmol/L Blood Urea Nitrogen 16 mg/dl Creatinine 0.79 mg/dl Est Creatinine Clear Calc Drug Dose 82.2 ml/min Estimated GFR () 86.7 Estimated GFR (Non- 74.8 BUN/Creatinine Ratio 20.9 Random Glucose 131 mg/dl Estimated Average Glucose 128 mg/dl Hemoglobin A1c 6.1 % Calcium Level 8.9 mg/dl Assessment & Plan Transient ischemic attack, location to the right cerebral hemisphere - status post cardiac catheterization - associated symptoms of left sided facial numbness and weakness after the procedure, today (24hrs later) the symptoms have subsided - CT scan done about 30 minutes after the procedure showed no abnormality when compared with earlier study, consider MRI for further workup - Continue aspirin 81 mg per day Hypertension with recent cardiac catheterization - continue maintenance of furosemide, hydralazine, carvedilol, amlodipine Type 2 diabetes melitis -continue maintenance with insulin glargine and insulin aspart in the hospital as per glycemic pharmacist consult -restart metformin once discharged from hospital IBS -continue maintenance with hydroxychloroquine Dyslipidemia -continue atorvastatin
[2017-05-27] MEDS: CARVEDILOL 12.5 MG TAB PO SCH (09:41)
[2017-05-27] MEDS ORDERED: GADAVIST IV PRN (09:45)
[2017-05-27] MEDS: HYDROXYCHLOROQUINE SULFATE 200 MG TAB PO SCH (09:45)
--- NOTE | 2017-05-27 09:45 | DIAGNOSTIC IMAGING REPORT ---
BRAIN COMBO CLINICAL HISTORY: 71 years-old Female presenting with Stroke, recent cardiac catheterization, now with facial droop and left arm weakness with tingling. TECHNIQUE: Multisequence, multiplanar MR imaging of the brain was performed before and after the administration of intravenous contrast. IV contrast: 10 mL of Gadavist. COMPARISON: CT head from 05/26/2017 and brain MR from 07/02/2014. FINDINGS: Ventricles and sulci normal in size. Few scattered foci of FLAIR hyperintensity in the subcortical white matter likely age-related. Brain parenchyma otherwise normal in appearance with preserved head-white differentiation. No mass effect or midline shift. Punctate focus of restricted diffusion in the right cerebellar hemisphere (series 4 image 5; series 400 image 5). No extra-axial fluid collection. T2 skull base flow voids preserved. No abnormal parenchymal enhancement. Bone marrow signal intensity within the calvarium within normal limits. Trace fluid in the right mastoid air cells. IMPRESSION: 1. Punctate focus of restricted diffusion consistent with acute ischemia in the right cerebellar hemisphere. No other sites of ischemia. Electronically signed by: Neeraj Gandhi M.D. 05/27/2017 9:43 AM Dictated Date/Time: 05/27/2017 9:37 AM
[2017-05-27] MEDS: INSULIN ASPART 100 UNITS/ML 3 ML PEN SC SCH (09:50)
[2017-05-27] MEDS: INSULIN GLARGINE SOLOSTAR 100 UNITS/ML 3 ML PEN SC SCH (09:51)
--- NOTE | 2017-05-27 09:51 | DIAGNOSTIC IMAGING REPORT ---
MR ANGIOGRAM OF THE NECK COMBO CLINICAL HISTORY: Facial droop status post cardiac catheterization. Left arm weakness and tingling. COMPARISON STUDY: CT of the neck dated 07/02/2014 and carotid artery ultrasound dated 06/13/2014. TECHNIQUE: Axial 3-D [id number] MR angiography of the neck is performed. Subsequently, following the IV administration of 10 cc of Gadavist. Coronal MR angiogram of the neck was performed to corroborate the findings. 3-D reformats are created and assessed. All measurements were calculated based on NASCET criteria. FINDINGS: Visualized portions of the thoracic aorta are normal in caliber. The aortic arch demonstrates standard 3-vessel anatomy. High-grade stenosis is identified at the origin of the right subclavian artery. The right subclavian artery is otherwise patent, as is the left subclavian artery. Mild atherosclerotic irregularity is seen in the carotid bulbs bilateral. High-grade stenosis is suggested at the origin of the right external carotid artery. The right common carotid artery is widely patent, as is the right internal carotid artery. The left common carotid artery is widely patent, as are the left internal and external carotid arteries. There is likely stenosis at the origin of the right vertebral artery. The vertebral arteries are otherwise widely patent and codominant in the neck. The visualized intracranial vessels at the skull base appear patent. Jugular veins are patent. IMPRESSION: 1. The common carotid and internal carotid arteries are patent bilaterally. 2. Some degree of stenosis is suggested the origin of the right vertebral artery. The vertebral arteries are otherwise patent. 3. There is high-grade stenosis of the origin of the right external carotid artery. 4. There is high-grade stenosis at the origin of the right subclavian artery. Electronically signed by: Joao Dan M.D. 05/27/2017 9:50 AM Dictated Date/Time: 05/27/2017 9:42 AM
--- NOTE | 2017-05-27 11:04 | Critical Care Progress Note ---
Critical Care Progress Note Date of Service May 27, 2017. Attending Dr. Bañuelos Subjective Patient alert and oriented. No slurred speech. No cognitive deficits. Denies headache, blurred vision, diplopia, weakness, numbness or tingling of extremities. No chest pain or SOB No acute complaints Objective Vital Signs - as noted below Laboratory Data - as noted below Physical Exam: General - NAD Eyes - No icterus, gaze conjugate ENT - Mucosa moist, no lesions or candidiasis Neck - Supple, No JVD. No stridor or bruits appreciated Lungs - No bronchospasm, rales, or rhonchi. Heart - Regular, rate controlled Abdomen - Soft, NT, ND, BS present. Good bowel sounds Extremities - No edema, pedal pulses intact Neuro - A&OX3. No pronator drift. No focal weakness. No facial droop. No numbness or weakness Current SOFA Score SOFA Score Response (Comments) Value Platelets (x10) < 150 1 Bilirubin (mg/dL) < 1.2 0 [place] Coma Score 15 0 Level of Hypotension No Hypotension 0 Creatinine (mg/dL) < 1.2 0 Total 1 Assessment & Plan ACUTE CVA/ISCHEMIA Patient with focal changes neurologically during cardiac catheterization 2016 Stroke alert called No indication for tPA per [facility] neurologist MRA/MRI brain combo this morning with Punctate focus of restricted diffusion consistent with acute ischemia in the right cerebellar hemisphere. No other sites of ischemia - no other acute findings. Discussed with Dr. Nayak - ok to discharge home with outpatient followup in 1-2 weeks Continue ASA 81mg PO daily CAD S/P cardiac catheterization yesterday with Dr. Younger Non-obstructive disease Outpatient follow up with cardiology Further management per Dr. Kitchen HTN Non-occlusive CAD Dr. Kitchen to adjust antihypertensives before discharge. Follow up with [facility] cardiology in 1-2 weeks DMII Non-insulin dependant Hold metformin for another day and then resume Out patient follow up with Dr. Foley RENAL No acute kidney injury PULMONARY Oxygenating well on room air Lungs clear to auscultation DVT PROPHYLAXIS Ambulate Discharge home CCT: 0 minutes. Level II inpatient billing Thank you for including us in the care of this patient. Please refer to Dr. Bañuelos's addendum for further recommendations Consults & Procedures Consultants: Neurology - Dr. Nayak Procedures: MRI/MRA Brain combo EKG Cardiac catheterization IV infusion of fluids Data Medications: Current Inpatient Medications Medications (Trade) Dose Ordered Sig/Miguelito Route Start Time Stop Time Status Last Admin Dose Admin Aspirin (Ecotrin Tab) 81 mg DAILY PO 05/27/17 09:00 06/26/17 08:59 05/27/17 09:45 81 MG Atorvastatin Calcium (Lipitor Tab) 40 mg QPM PO 05/26/17 21:00 06/25/17 20:59 05/26/17 20:49 40 MG Carvedilol (Coreg Tab) 12.5 mg BID PO 05/26/17 21:00 06/25/17 20:59 05/27/17 09:41 12.5 MG Fluoxetine HCl (Prozac Cap) 40 mg QAM PO 05/27/17 09:00 06/26/17 08:59 05/27/17 09:46 40 MG Furosemide (Lasix Tab) 20 mg DAILY PRN PO 05/26/17 10:30 06/25/17 10:29 Gabapentin (Neurontin Cap) 300 mg HS PO 05/26/17 21:00 06/25/17 20:59 05/26/17 20:49 300 MG Hydralazine HCl (Apresoline Tab) 50 mg TID PO 05/26/17 14:00 06/25/17 13:59 05/27/17 09:41 50 MG Hydroxychloroquine Sulfate (Plaquenil Tab) 200 mg BIDM PO 05/26/17 16:30 06/25/17 17:59 05/27/17 09:45 200 MG Pantoprazole Sodium (Protonix Tab) 40 mg DAILY PO 05/27/17 09:00 06/26/17 08:59 05/27/17 09:41 40 MG Acetaminophen (Tylenol Tab) 650 mg Q4H PRN PO 05/26/17 12:45 06/25/17 12:44 05/27/17 05:09 650 MG Miscellaneous Information (Pharmacist Discharge Med Rec Consult) 1 pauline UD PRN N/A 05/26/17 13:00 06/25/17 12:59 Ondansetron HCl (Zofran Inj) 4 mg Q6H PRN IV 05/26/17 13:00 06/25/17 12:59 Miscellaneous Information (Consult Glycemic Management Pharmacy) 1 pauline UD PRN N/A 05/26/17 15:15 06/25/17 15:14 Insulin Aspart (novoLOG ASPART) SLIDING SCALE ACHS SC 05/26/17 16:00 06/25/17 15:59 05/27/17 09:50 10 UNITS Insulin Glargine (Lantus Solostar Pen) See protocol text BID SC 05/26/17 21:00 06/25/17 20:59 05/27/17 09:51 10 UNITS Miscellaneous Information (Pending Order) 1 ea ACHS N/A 05/26/17 16:00 06/25/17 15:59 Amlodipine Besylate (Norvasc Tab) 5 mg QAM PO 05/27/17 09:00 06/26/17 08:59 05/27/17 09:45 5 MG Gadobutrol (Gadavist) 10 mmol UD PRN IV 05/27/17 09:45 05/31/17 09:44 Vital Signs: Date Time Temp Pulse Resp B/P (MAP) Pulse Ox O2 Delivery O2 Flow Rate FiO2 05/27/17 10:00 61 20 166/131 (143) 96 Room Air 05/27/17 08:00 36.8 78 20 156/127 (137) 96 Room Air 05/27/17 06:00 56 14 156/68 (97) 95 Room Air 05/27/17 04:00 94 Nasal Cannula 2.0 05/27/17 04:00 36.8 58 15 147/70 (95) 94 Room Air 05/27/17 02:00 59 17 132/51 (78) 93 Room Air 05/27/17 00:01 36.8 65 20 136/62 (86) 90 Room Air 05/26/17 23:59 92 Room Air 05/26/17 22:00 62 15 153/61 (91) 96 Room Air 05/26/17 21:00 62 17 126/95 (105) 96 Room Air 05/26/17 20:00 96 Room Air 05/26/17 20:00 36.5 62 19 184/102 (129) 94 Room Air 05/26/17 19:52 64 20 191/78 (115) 97 Room Air 05/26/17 18:00 36.4 62 16 163/63 (96) 97 05/26/17 17:10 36.4 61 16 177/92 (120) 97 Room Air 05/26/17 16:10 36.4 62 16 154/65 (94) 97 Room Air 05/26/17 16:10 36.4 62 16 154/65 (94) 97 05/26/17 16:00 Room Air 05/26/17 15:10 36.4 59 16 155/73 (100) 98 Room Air 05/26/17 14:10 36.4 61 16 147/74 (98) 97 Room Air 05/26/17 14:00 36.4 61 16 147/74 (98) 96 Room Air 05/26/17 13:10 36.4 61 14 169/73 (105) 98 Room Air 05/26/17 12:40 61 18 163/76 (105) 94 Room Air 05/26/17 12:10 36.4 60 16 178/83 (114) 98 Room Air 05/26/17 12:00 97 Room Air 05/26/17 12:00 36.4 60 16 178/83 (114) 96 Room Air 05/26/17 11:55 61 14 185/92 (123) 98 05/26/17 11:40 36.4 60 19 184/81 (115) 96 05/26/17 11:25 36.5 85 18 185/84 (117) 100 Room Air 05/26/17 11:00 36.6 60 20 173/74 (107) 98 Room Air Laboratory Results: Last 24 Hours Test 05/26/17 11:32 05/26/17 12:53 05/26/17 16:31 05/26/17 20:45 Bedside Glucose 108 mg/dl 124 mg/dl 101 mg/dl Magnesium Level 1.7 mg/dl Triglycerides Level 101 mg/dl Cholesterol Level 111 mg/dl HDL Cholesterol 71 mg/dl LDL Cholesterol, Calculated 20 mg/dl VLDL Cholesterol, Calculated 20 mg/dl Cholesterol/HDL Ratio 1.6 Test 05/27/17 05:32 White Blood Count 6.63 K/uL Red Blood Count 3.58 M/uL Hemoglobin 10.9 g/dL Hematocrit 35.3 % Mean Corpuscular Volume 98.6 fL Mean Corpuscular Hemoglobin 30.4 pg Mean Corpuscular Hemoglobin Concent 30.9 g/dl RDW Standard Deviation 47.9 fL RDW Coefficient of Variation 13.3 % Platelet Count 117 K/uL Mean Platelet Volume 8.8 fL Sodium Level 140 mmol/L Potassium Level 4.4 mmol/L Chloride Level 108 mmol/L Carbon Dioxide Level 29 mmol/L Anion Gap 3.0 mmol/L Blood Urea Nitrogen 16 mg/dl Creatinine 0.79 mg/dl Est Creatinine Clear Calc Drug Dose 82.2 ml/min Estimated GFR () 86.7 Estimated GFR (Non- 74.8 BUN/Creatinine Ratio 20.9 Random Glucose 131 mg/dl Estimated Average Glucose 128 mg/dl Hemoglobin A1c 6.1 % Calcium Level 8.9 mg/dl
[2017-05-27] MEDS ORDERED: HYT/2 PO (11:05)
[2017-05-27] MEDS ORDERED: NRV5 PO (11:05)
--- NOTE | 2017-05-27 11:08 | Discharge Instructions ---
Discharge Instructions Procedure Procedure Date: May 27, 2017. Reason for Visit: CVA. Discharge Discharge Date: May 27, 2017. Discharge Diagnosis: cardiac catheterization demonstrating nonobstructive CAD. Post procedural TIA Uncontrolled hypertension Last Recorded Wt (Kilograms): 106.200 Anesthesia Post Anesthesia Instructions: If you have had General Anesthesia or IV Sedation: * Do not drive today. * Resume driving when surgeon permits. * Do not make important decisions or sign legal documents today. * Call surgeon for: 1. Temperature elevations greater than 101 degrees F. 2. Uncontrollable pain. 3. Excessive bleeding. 4. Persistent nausea and vomiting. 5. Medication intolerance (nausea, vomiting or rash). * For nausea and vomiting use only clear liquids such as: tea, soda, bouillon until nausea subsides, then gradually increase diet as tolerated. * If you have any concerns or questions, call your surgeon's office. If physician is unavailable and it is an emergency, call 911 or go to the nearest emergency room. Instructions Activity Recommendations: limitations as noted below Return to School/Work: with the following limitations Recommended Home Diet: low sodium, low cholesterol, diabetes diet Allergies: Coded Allergies: NSAIDs (Verified Adverse Reaction, Unknown, GI UPSET, 04/10/17) Nadolol (Verified Adverse Reaction, Unknown, GI UPSET, 04/10/17) Nitroglycerin (Verified Adverse Reaction, Unknown, HEADACHE, 04/10/17) Provider Instructions ACTIVITY RECOMMENDATIONS: Excess manipulation of the wrist should be avoided for the next 24-48 hours. * No lifting over 2 pounds (approximately a 1/2 gallon of milk) with the utilized arm for 24 hours. * No strenuous activity such as bowling or tennis for 3 days. * Keep the site of the procedure covered with a bandage for 24 hours. *You may shower the day after the procedure. Do not take a tub bath or submerge the puncture site in water for the next 3 days. *Do not operate any motorized equipment for 3 days. SPECIAL CARE INSTRUCTIONS: The site may be slightly bruised and sore following your procedure. Should any of the following occur, contact the DrTrey who performed your procedure. 1. Redness/inflammation, swelling, chills, or fever, or colored drainage at procedure site within 3-7 days after your procedure. 2. Coldness, discoloration, ongoing numbness, severe pain, or swelling. Expect mild tingling of hand and tenderness at the puncture site for up to three days. If this persists beyond three days, or other symptoms develop, notify the Dr. who performed your procedure. BLEEDING: If the procedure site on your wrist begins to bleed, do not panic 1. Place 1 or 2 fingers firmly just slightly above the insertion site to stop the bleeding. You may be able to feel your pulse as you hold pressure. 2. Lift your finger after 5 minutes to see if the bleeding has stopped. 3. Once the bleeding has stopped, gently wipe the wrist area clean with a bandage. * If the bleeding from your wrist does not stop after 10 minutes, or if there is a large amount of bleeding or spurting, call 911 (do not drive yourself to the hospital). SKIN IRRITATION: * You may experience some redness and/or swelling in the area where radiation was administered. If any skin irritation occurs, please contact your family physician. FOLLOW UP VISIT: Keep any scheduled doctor appointments. Follow Up Follow-up with: Ray Monsivais in one week [facility] Recommendations: Call your doctor if: * Temperature above 101 degrees * Pain not relieved by pain medicine ordered * There is increased drainage or redness from any incision * You have any unanswered questions or concerns. Your Doctors Instructions noted above were prepared by provider Reynold Kitchen. Patient Signature Section: Patient Instructions Signature Page Elmira Tavares Patient (or Guardian) Signature/Date: I have read and understand the instructions given to me by my caregivers. Caregiver/RN/Doctor Signature/Date: The above-named patient and/or guardian has received patient instructions on this date. + Original Patient Signature Page (only) stays with chart. Please make copy for patient.
--- NOTE | 2017-05-27 11:22 | CARDIOLOGY PROGRESS NOTE ---
DATE: 05/27/2017 DATE: 05/27/2017 SUBJECTIVE: The patient is seen and examined at the bedside. Previously noted facial asymmetry has resolved. No recurrent left upper or lower extremity paresthesias. MRI of the brain performed this morning demonstrating a punctate focus of restricted diffusion consistent with acute ischemia in the right cerebellar hemorrhage. No other areas of ischemia. MRA of the head and neck were performed demonstrating patent carotid arteries with some degree of stenosis involving the right vertebral artery and a high grade stenosis of the origin of the right external carotid artery and high grade stenosis of the right subclavian artery. Currently, patient is resting comfortably. is present at bedside. Tolerating diet and medications. Blood pressure remains elevated. Denies headaches, focal weakness, slurred speech, visual changes, or gait instability. No chest discomfort or unusual shortness of breath. Offers no complaints at this time. Requesting discharge if possible. LABORATORY DATA: White blood cell count 6.63, hemoglobin is 10.9, platelet count is 117. INR 1.0. Sodium 140, potassium 4.4, CO2 is 29, BUN is 16, creatinine is 0.79, glucose 131, calculated LDL is 20, HDL 71. MEDICATIONS: Reviewed via EMR. Please see list for details. PHYSICAL EXAMINATION: VITAL SIGNS: Temperature is 36.8 degrees centigrade, pulse 60 beats per minute and regular, respiratory rate is 20 breaths per minute, blood pressure 180/90. SaO2 is 96% on room air. GENERAL: NAD, awake, alert and oriented x3. HEAD, EYES, EARS, NOSE, AND THROAT: Mucous membranes are moist. No scleral icterus. Conjunctivae pink. NECK: Supple without JVD or HJR. No carotid bruit. HEART: Regular with a normal S1 and S2. There is a 1/6 systolic ejection murmur heard best at the right second intercostal space. ABDOMEN: Soft, nontender. No rebound or guarding. Normal bowel sounds. EXTREMITIES: Warm and dry without clubbing, cyanosis, or edema. NEUROLOGIC EXAMINATION: Demonstrates no focal motor deficit. No facial asymmetry. Sensation grossly intact. FINAL IMPRESSION: 1. A 71-year-old female status post cardiac catheterization demonstrating nonobstructive CAD and post-procedural neurologic deficit including facial asymmetry and left upper and lower extremity paresthesias. No evidence of acute cerebrovascular accident per MRI to explain neurologic deficit. Punctate cerebellar lesion likely incidental finding of subclinical event post procedure. 2. Peripheral vascular disease with severe right-sided subclavian stenosis as well as distal abdominal aortic disease visualized during catheterization. 3. Hypertension -- uncontrolled. 4. Dyslipidemia -- well controlled. 5. Diabetes. 6. Chronic kidney disease. PLAN AND RECOMMENDATIONS: I will add Hytrin 2 mg at bedtime to improve blood pressure control. Other medications will be continued as previously ordered. I will arrange for close cardiology followup in 1 week to assess blood pressure. No further inpatient evaluation or testing from a cardiovascular perspective. Await neurology input prior to discharge. Case discussed with the hydraulic spinner service. CHUCK
--- NOTE | 2017-05-27 12:22 | DISCHARGE SUMMARY ---
DATE OF DISCHARGE: 05/27/2017 ADMISSION DIAGNOSES: 1. Abnormal stress testing. 2. Hypertension. 3. Dyslipidemia. DISCHARGE DIAGNOSES. 1. Nonobstructive coronary disease. 2. Periprocedural transient ischemic attack. 3. Peripheral vascular disease with right subclavian and distal aortic stenosis. 4. Uncontrolled hypertension. ADMISSION MEDICATIONS: 1. Atorvastatin 40 mg daily. 2. Carvedilol 12.5 mg twice daily. 3. Flonase daily. 4. Neurontin 300 mg at bedtime. 5. Plaquenil twice daily. 6. Sublingual nitroglycerin as needed. 7. Amlodipine 5 mg daily. 8. Lasix 20 mg as needed for edema. 9. Hydralazine 50 mg 3 times daily. 10. Protonix 40 mg daily. 11. Doxycycline 100 mg twice daily. 12. Oxycodone as needed. 13. Antivert as needed. 14. Glucophage 500 mg 3 times daily. 15. Prozac 40 mg daily. 16. Xanax 0.25 mg twice daily as needed. 17. Aspirin 81 mg daily. DISCHARGE MEDICATIONS: Same as outpatient with the addition of Hytrin 2 mg at bedtime. PROCEDURES DURING HOSPITALIZATION: Left heart catheterization with coronary angiography demonstrating nonobstructive coronary disease. HOSPITAL COURSE: The patient was admitted for observation after cardiac catheterization demonstrating nonobstructive coronary disease and transient ischemic attack. Procedure complicated by transient ischemic attack with left- sided facial asymmetry and left upper and lower extremity paresthesias. Symptoms resolved prior to discharge. MRI demonstrated a punctate lesion in the cerebellum which did not correlate with the patient's neurologic exam. Blood pressure noted to be elevated during hospitalization, 2 mg Hytrin added prior to discharge. Other medications continued as previously ordered. Close cardiology followup arranged in 1 week to reassess blood pressure. [facility] HOSPITALEmiliana
== END 2017-05-27 13:27 | disposition home or self-care (01) | DRG 69 ==
LOC: C.CATH 06:56 → C.MSICU 10:24
PROVIDERS: ADMIT Internal Medicine Cardiovascular Disease; ATTEND Internal Medicine Cardiovascular Disease
PROC: 4A023N7 Measurement of Cardiac Sampling and Pressure, Left Heart, Percutaneous Approach (ICD-10-PCS; principal; 2017-05-26 07:15)
PROC: B2111ZZ Fluoroscopy of Multiple Coronary Arteries using Low Osmolar Contrast (ICD-10-PCS; principal; 2017-05-26 07:15)
DX: G45.9 Transient cerebral ischemic attack, unspecified (principal); I25.10 Atherosclerotic heart disease of native coronary artery without angina pectoris; I70.0 Atherosclerosis of aorta; I70.8 Atherosclerosis of other arteries; R94.39 Abnormal result of other cardiovascular function study; I25.2 Old myocardial infarction; I12.9 Hypertensive chronic kidney disease with stage 1 through stage 4 chronic kidney disease, or unspecified chronic kidney disease; E11.40 Type 2 diabetes mellitus with diabetic neuropathy, unspecified; E11.22 Type 2 diabetes mellitus with diabetic chronic kidney disease; N18.9 Chronic kidney disease, unspecified; D50.9 Iron deficiency anemia, unspecified; E78.5 Hyperlipidemia, unspecified; M19.90 Unspecified osteoarthritis, unspecified site; K21.9 Gastro-esophageal reflux disease without esophagitis; G47.30 Sleep apnea, unspecified; F32.9 Major depressive disorder, single episode, unspecified; E66.9 Obesity, unspecified; Z68.35 Body mass index [BMI] 35.0-35.9, adult; Z96.611 Presence of right artificial shoulder joint; Z96.653 Presence of artificial knee joint, bilateral; Z87.891 Personal history of nicotine dependence; Z82.49 Family history of ischemic heart disease and other diseases of the circulatory system; Z79.84 Long term (current) use of oral hypoglycemic drugs; Z79.82 Long term (current) use of aspirin; Z79.899 Other long term (current) drug therapy

== ENCOUNTER → 2017-06-08 | Outpatient (CLI) | payer BC ==
[~2017-06-08] MED LIST changes: -ALPR0.25 PO; -AMLO5TAB4 PO; +CARV12.52 PO; -FLUT0.15 NAE; +FURO20TA PO; +HYT/2 PO; +NRV5 PO
--- NOTE | 2017-06-08 14:29 | DIAGNOSTIC IMAGING REPORT ---
R HAND MIN 3 VIEWS ROUTINE CLINICAL HISTORY: 71 years-old Female presenting with M06.4,Z79.899. TECHNIQUE: Frontal, oblique, and lateral views of the right hand were obtained. COMPARISON: 05/27/2016. FINDINGS: Osteopenia. Chondrocalcinosis of the triangular fibrocartilage complex. Radiocarpal articulations intact. Mild degenerative changes of the first metacarpophalangeal articulation without significant joint space loss. And osteophytosis at the head of the third metacarpal, similar to prior exam, with mild joint space loss again evident. No erosions are evident. No soft tissue swelling. No acute fracture or malalignment allowing for osteopenia. IMPRESSION: 1. Findings most consistent with osteoporosis at the first and third metacarpal phalangeal articulations. No evidence of erosions. This is similar to prior exam. 2. Chondrocalcinosis. 3. Osteopenia. Electronically signed by: Neeraj Gandhi M.D. 06/08/2017 2:28 PM Dictated Date/Time: 06/08/2017 2:25 PM
== END | disposition home or self-care (01) ==
LOC: C.RAD1850 14:00
PROVIDERS: ATTEND Internal Medicine Rheumatology
DX: Z51.81 Encounter for therapeutic drug level monitoring (principal); M06.4 Inflammatory polyarthropathy; Z79.899 Other long term (current) drug therapy; M11.241 Other chondrocalcinosis, right hand; M85.841 Other specified disorders of bone density and structure, right hand

== ENCOUNTER → 2017-06-16 | Outpatient (CLI) | payer BC ==
--- NOTE | 2017-06-17 06:56 | PAP/PSG TECHNICIAN REPORT ---
[facility] Editor Publications Polysomnogram Report Study name: None Report date: 06/17/2017 Study date: 06/16/2017 Referring Physician: Dr. Vallejo Name: ABDIAS TAVARES Interpreting Physician: Juan Nash M.D. Date of : 1945 Editor Publications: Oliver Medellin RPSGT. Sex: Female Age: 71 StudyType: PSG Weight: 295 lbs 14.5 inches Height: 71 years, Height 5' 9" Neck Circum: BMI: 43.56 Medications: LIPITOR 40 MG, COREG 12.5 MG, FLONASE 50 MCG/ACT, NEURONTIN 300 MG, PLAQUENIL 200 MG, NITROLINGUAL 0.4 MG/SPRAY, NORVASC 5 MG, APRESOLINE 50 MG, PROTONIX 40 MG, PERCOCET, ANTIVERT, PROZAC 40 MG, ALPRAZOLAM 0.25 MG, ASPRIN 81 MG Patient History PATIENT HAS HISTORY OF FATIGUE, SNORING AND DAYTIME SLEEPINESS. SHE GENERALLY HAS AN IRREGULAR SLEEP SCHEDULE AND TAKES NAPS DURING THE DAY. SHE IS HERE TODAY FOR AN EVALUATION FOR ISATU. ESS = 2 RM 6 Parameters Monitored NPSG: E1-M2, E2-M1, Fp1-M2, Fp2-M1, F3-M2, F4-M2, F4-M1, C3-M2, C4-M2, C4-M1, O1-M2, O2-M2, O2-M1, T3-M2, T4-M1, P3-M2, P4-M1, CHIN1, CHIN2, HR, EKG, Legs, PFLOW, SNOR, FLOW, CFLOW, Tidal Volume, THOR, ABDO, SpO2, PLTH, CPRESS, ETCO2 Wave, ETCO2, pH Sleep Architecture Sleep Stages Time at Lights Off 9:56:11 PM STAGES Time (min.) TST (%) Time at Lights On 5:30:41 AM Wake 185.5 -- Total Recording Time (TRT) 455.00 min. N1 20.5 8 Total Sleep Period (TSP) 392.5 min. N2 186.5 69 Total Sleep Time (TST) 269.0min. N3 26.0 10 Awake Time 185.5 min. REM 36.0 13 Wake after Sleep Onset 123.5 min. Sleep Efficiency (SE) 59 % Sleep Onset Latency (AGUSTIN) 62.0 min. Number of Stage 1 Shifts None Awakenings 17 Stage Changes 53 Number of REM periods 2 REM 36.0 13 REM Latency 194.0 min. NREM 233.0 87 Body Position Analysis Supine Right Left Side Prone Vertical Total Sleep Time (min.) 4.3 237.0 32.0 269.00 0.0 0.0 Total Sleep Time (%) 0% 88% 12% 100 0% N/A% Total Sleep Time REM (min.) 0.0 36.0 0.0 None 0.0 0.0 Total Sleep Time NREM (min.) 0.0 201.0 32.0 None 0.0 0.0 Intermittent Wake (min.) 4.3 151.9 29.3 None 0.0 0.0 Total Sleep Period (%) 0% None None None None None Arousals Myoclonus (PLM) * Events Count Index Events Count Index Spontaneous 32 7 Events Awake (PLMW) 135 43.7 Respiratory 9 2.0 Events Asleep w/ Arousal (PLMA) 16 3.6 PLM 16 4 Events Asleep w/o Arousal (PLMS) 104 23.2 Snoring 4 1 Total Asleep 120 26.8 Total 61 14 Total 255 34 Respiratory Analysis * CA OA MA CH H RERA Total Count 0 0 0 0 30 2 30 Index 0.0 0.0 0.0 0 6.7 0 7.1 Mean Duration 0.0 0.0 0.0 0.00 16.2 14.2 16.1 Longest Duration 0.0 0.0 0.0 0.00 0.0 14.5 23.5 Respiratory Event Summary Total Supine ~Supine Right Left Prone REM NREM Apneas Count 0 N/A 0 0 0 N/A 0 0 Index 0.0 N/A 0 0.0 0.0 N/A 0 0 Hypopneas (4% Desat) Count 30 N/A 30 29 1 N/A 16 14 Index 6.7 N/A 7 7.3 1.9 N/A 26.7 3.6 Apneas & All Hypopneas Count 30 N/A 30 29 1 N/A 16 14 Index 6.7 N/A 7 7 2 N/A 26.7 3.6 Respiratory Events (Service Shop Foreman+All Hyp+RERA) Count 30 N/A 32 31 1 N/A 16 14 Index 7.1 N/A 7 7.8 1.9 N/A 28.3 3.9 Respiratory Related Arousal Count 9 N/A 9 9 0 N/A 0 9 Index 2.0 N/A 2 2 0 N/A 0 2 Snoring Analysis Supine Right Left Prone REM NREM Total Snore duration 12.4 min Snores count N/A 797 3 N/A 5 795 800 Snore mean duration 0.9 Sec Snores index N/A 202 6 N/A 8.3 204.7 178.4 TST with snoring (%) 4.6% SpO2 Analysis Total REM NREM Awake <50% 0.0 min. 0.0 min. 0.0 min. 0.0 min. 51 - 60% 0.0 min. 0.0 min. 0.0 min. 0.0 min. 61 - 70% 0.0 min. 0.0 min. 0.0 min. 0.0 min. 71 - 80% 0.0 min. 0.0 min. 0.0 min. 0.0 min. 81 - 90% 38.0 min. 9.8 min. 19.0 min. 9.2 min. 91 - 100% 410.0 min. 26.2 min. 214.0 min. 169.9 min. Average 92 92 92 93 Minimum SpO2 84 84 89 84 Desaturation Event Index 5.1 26.7 3.3 3.2 # Desat. Events below 89% 6 5 N/A 1 Time(%) with Saturation below 89% 0.9 0.9 0.0 0.0 Time(min.) with Saturation below 89% 4.2 4.0 0.0 0.2 Heart Rate Analysis End Tidal CO2 Analysis Min (bpm) Max (bpm) Average (bpm) TSP (mins) % of TSP Awake 63 90 71 Above 55 mmHg 0.0 0.0 NREM 65 81 72 50-55 mmHg 0.0 0.0 REM 70 88 75 45-50 mmHg 0.6 0.2 Overall 65 88 72 40-45 mmHg 90.5 33.6 35-40 mmHg 167.4 62.2 30-35 mmHg 10.4 3.9 Average ETCO2 0.2 Supplemental O2 Values Minimum O2 level: None Value Start Time End Time Editor Publications Comments Mrs. Tavares slept in the right and left positions. PVC's noted. Leg movements noted. No bruxism noted. Snoring was noted and scored as a 3 on a scale of 1 through 5. (0=no snoring, 5=snoring loud enough to be heard through a closed door or down the oneal way) Mrs. Tavares awoke to use the restroom 1 time during the night. Mrs. Tavares stated I did not sleep as well as I do when I am in my own bed. The final report will be interpreted and signed by a sleep physician. The completed physician report will then be placed in the patient medical record. Therapy (cm H2O) 0 TIB (min.) 454.5 TST (min.) 269.0 Sleep Onset (min.) 62.0 REM Onset From Sleep (min.) 194.0 Sleep Efficiency % 59 Wakefulness (%) 41 Wakefulness (min.) 185.5 NREM 1 (%) 8 NREM 1 (min.) 20.5 NREM 2 (%) 69 NREM 2 (min.) 186.5 NREM 3 (%) 10 NREM 3 (min.) 26.0 REM (%) 13 REM (min.) 36.0 # Arousals 61 Arousal Index 14 # Snore 800 Snore Index 178.4 AHI 6.7 AHI Supine N/A AHI Non-Supine 7 NREM AHI 3.6 REM AHI 26.7 RDI 7.1 # Obstructive Apnea 0 # Central Apnea 0 # Mixed Apnea 0 # Hypopneas 30 RERAs 2 Total Respiratory Events 33 Time Below SpO2 89% (min.) 4.0 Mean NREM SpO2 (%) 92 Mean REM SpO2 (%) 92 Mean Sleep SpO2 (%) 92 Min NREM SpO2 (%) 89 Min REM SpO2 (%) 84 Position Supine (min.) 4.3 Position Non-supine (min.) 269.0 LM Index Sleep 26.8 LM Index NREM 25.0 LM Index REM 38.3 Mean Heart Rate (bpm) 72 Min Heart Rate (bpm) 65
--- NOTE | 2017-06-17 17:36 | POLYSOMNOGRAPH REPORT ---
CLINICAL DATA: A 71-year-old female with a BMI of 43.6, referred by Dr. Vallejo with a history of snoring, fatigue, and daytime sleepiness. She has no regular sleep schedule and naps during the day. Her [place] sleepiness score is 2/24. SLEEP ARCHITECTURE: Total sleep period was 392.5 minutes. Total sleep time was 269 minutes divided between 233 minutes of non-REM sleep and 36 minutes of REM sleep. Sleep onset latency was delayed at 62 minutes. REM latency was delayed at 194 minutes. Sleep efficiency was reduced to 59%. Wake after sleep onset was elevated at 123.5 minutes. Sleep consisted of stage N1 8%, stage N2 69%, stage N3 10%, and REM 13%. AROUSAL DATA: Sixty one arousals were recorded for an index of 14 per hour. Thirty two were spontaneous. PERIODIC LIMB MOVEMENT DATA: Mildly elevated limb movements during sleep were noted. There are 120 limb movements during sleep noted for an index of 26.8 per hour with arousal index of 3.6 per hour. RESPIRATORY DATA: Mild sleep apnea was documented. The AHI was 6.7. The RDI was 7.1. There were 30 hypopneic episodes with a mean duration of 16.2 seconds. There were 2 RERAs. The longest duration of RERA was 14.5 seconds. OXIMETRY DATA: Transient nocturnal hypoxemia was seen. Oxygen padmini was 84% during REM. The mean saturation was 92%. Time below 89% onset was 4 minutes. ECHOCARDIOGRAM: Heart rate ranged from 65-88 beats per minute. PVCs were noted. GRILL PREP COOK'S COMMENTS: The patient slept in the right and left positions. His snoring was moderate, rated 3 on a scale of 1-5. IMPRESSION: Mild sleep apnea/hypopnea with an apnea/hypopnea index of 6.7 and a respiratory disturbance index of 7.1. RECOMMENDATIONS: The patient may benefit from use of an oral appliance, a repeat sleep study with CPAP, or use of auto CPAP. Clinical correlation is needed. CHUCK
== END | disposition home or self-care (01) ==
LOC: C.NEUR 21:00
PROVIDERS: ATTEND Internal Medicine
DX: G47.33 Obstructive sleep apnea (adult) (pediatric) (principal)

== ENCOUNTER → 2017-08-13 | Outpatient (CLI) | payer BC ==
[2017-08-13 10:02] LABS: BASO % 0.6 %; BASO ABS # 0.04 K/uL (0-0.2); EOS % 3.4 %; EOS ABS # 0.21 K/uL (0-0.5); HEMATOCRIT 34.5 % (37-47); HEMOGLOBIN 11.1 g/dL (12.0-16.0); IG# 0.01 K/uL (0.00-0.02); LYMPH % 32.5 %; MEAN CORPUSCULAR HEMOGLOBIN 31.5 pg (25-34); MEAN CORPUSCULAR HGB CONC 32.2 g/dl (32-36); MONO % 9.1 %; MONO ABS # 0.56 K/uL (0.11-0.59); NEUT % 54.2 %; NEUT ABS # 3.34 K/uL (1.4-6.5); PLATELET COUNT 137 K/uL (130-400); RED CELL DISTRIBUTION WIDTH CV 14.6 % (11.5-14.5); RED CELL DISTRIBUTION WIDTH SD 51.8 fL (36.4-46.3); WHITE BLOOD COUNT 6.16 K/uL (4.8-10.8)
[2017-08-13 10:32] LABS: ALBUMIN 3.6 gm/dl (3.4-5.0); ALT/SGPT 20 U/L (12-78); CREATININE 0.69 mg/dl (0.60-1.20)
[2017-08-13 10:35] LABS: ALKALINE PHOSPHATASE 57 U/L (45-117); AST/SGOT 20 U/L (15-37); TOTAL PROTEIN 6.7 gm/dl (6.4-8.2)
== END | disposition home or self-care (01) ==
LOC: C.LAB1850 09:03
PROVIDERS: ATTEND Internal Medicine Rheumatology
DX: M13.0 Polyarthritis, unspecified (principal); Z51.81 Encounter for therapeutic drug level monitoring; Z79.899 Other long term (current) drug therapy; M70.61 Trochanteric bursitis, right hip

== ENCOUNTER → 2017-09-29 | Outpatient (CLI) | payer BC ==
--- NOTE | 2017-09-29 15:21 | MAMMOGRAPHY REPORT ---
UNILATERAL LEFT DIGITAL SCREENING MAMMOGRAM TOMOSYNTHESIS WITH CAD: 09/29/2017 CLINICAL HISTORY: Asymptomatic. Personal history of breast cancer. TECHNIQUE: Breast tomosynthesis in addition to standard 2D mammography was performed. Current study was also evaluated with a Computer Aided Detection (CAD) system. COMPARISON: Comparison is made to exams dated: 09/30/2016 mammogram, 09/30/2015 mammogram, 09/28/2014 mamm ogram, 09/26/2013 mammogram, 09/21/2012 mammogram, and 09/21/2011 mammogram - [facility] BREAST COMPOSITION: There are scattered areas of fibroglandular density in the left breast. FINDINGS: There are scattered benign round and coarse microcalcifications in left breast. Stable asy mmetries in the lateral breast. No new suspicious mass, architectural distortion or cluster of micro calcifications is seen. IMPRESSION: ACR BI-RADS CATEGORY 1: NEGATIVE There is no mammographic evidence of malignancy. A 1 year screening mammogram is recommended. The pa tient will receive written notification of the results. Approximately 10% of breast cancers are not detected with mammography. A negative mammographic report should not delay biopsy if a clinically suggestive mass is present. Maria R Tesfaye M.D. ay/:09/29/2017 14:39:39 Probation Counselor: Jill STOREY)(M), [facility] letter sent: Normal 1/2 BI-RADS Code: ACR BI-RADS Category 1: Negative
== END | disposition home or self-care (01) ==
LOC: C.MAMM 13:38
PROVIDERS: ATTEND Family Medicine
DX: Z12.31 Encounter for screening mammogram for malignant neoplasm of breast (principal); Z90.11 Acquired absence of right breast and nipple

== ENCOUNTER → 2018-01-19 | Outpatient (CLI) | payer BC ==
[2018-01-19 15:44] LABS: BASO % 0.5 %; BASO ABS # 0.04 K/uL (0-0.2); EOS % 1.9 %; EOS ABS # 0.15 K/uL (0-0.5); HEMATOCRIT 37.8 % (37-47); HEMOGLOBIN 11.8 g/dL (12.0-16.0); IG# 0.02 K/uL (0.00-0.02); LYMPH % 27.9 %; LYMPH ABS # 2.26 K/uL (1.2-3.4); MEAN CELL VOLUME 98.7 fL (80-100); MEAN CORPUSCULAR HEMOGLOBIN 30.8 pg (25-34); MEAN CORPUSCULAR HGB CONC 31.2 g/dl (32-36); MEAN PLATELET VOLUME 9.4 fL (7.4-10.4); MONO ABS # 0.57 K/uL (0.11-0.59); NEUT % 62.5 %; NEUT ABS # 5.06 K/uL (1.4-6.5); PLATELET COUNT 138 K/uL (130-400); RED CELL DISTRIBUTION WIDTH CV 13.1 % (11.5-14.5); RED CELL DISTRIBUTION WIDTH SD 46.7 fL (36.4-46.3)
[2018-01-19 15:52] LABS: ALBUMIN 3.8 gm/dl (3.4-5.0); ALKALINE PHOSPHATASE 74 U/L (45-117); ALT/SGPT 20 U/L (12-78); AST/SGOT 17 U/L (15-37); CREATININE 0.79 mg/dl (0.60-1.20); TOTAL PROTEIN 7.4 gm/dl (6.4-8.2)
== END | disposition home or self-care (01) ==
LOC: C.LAB1850 14:33
PROVIDERS: ATTEND Internal Medicine Rheumatology
DX: M06.049 Rheumatoid arthritis without rheumatoid factor, unspecified hand (principal); Z79.899 Other long term (current) drug therapy

== ENCOUNTER 2018-11-13 15:39 | Inpatient (IN) ==
[2018-11-13] MEDS ORDERED: MoRPHine SULFATE 4 MG/ML 1 ML CARP\\VIAL IV STA ×2 (16:17→17:55)
[2018-11-13] MEDS ORDERED: ONDANSETRON 4 MG OD TAB PO STA (16:18)
[2018-11-13] MEDS: LIDOCAINE 5% 1 PATCH TD SCH (16:35)
[2018-11-13 16:56] LABS: Prothrombin Time 10.4 Seconds (9.0-12.0)
[2018-11-13 17:08] LABS: Basophils # (auto) 0.01 K/uL (0-0.2); Basophils % (auto) 0.1 %; Hematocrit (blood only) 36.9 % (37-47); Hemoglobin 12.6 g/dL (12.0-16.0); Immature Granulocytes # (auto) 0.06 K/uL (0.00-0.02); Immature Granulocytes % (auto) 0.8 %; Lymphocytes # (auto) 0.98 K/uL (1.2-3.4); Lymphocytes % (auto) 12.6 %; Mean Corpuscular Hgb Conc 34.1 g/dL (32-36); Mean Corpuscular Volume 102.8 fL (80-100); Mean Platelet Volume 8.5 fL (7.4-10.4); Monocytes # (auto) 0.33 K/uL (0.11-0.59); Monocytes % (auto) 4.2 %; Neutrophils # (auto) 6.39 K/uL (1.4-6.5); Neutrophils % (auto) 82.3 %; Platelet Count 141 K/uL (130-400); RDW Coefficient of Variation 13.1 % (11.5-14.5); RDW Standard Deviation 48.5 fL (36.4-46.3); Red Blood Count 3.59 M/uL (4.2-5.4); White Blood Count 7.77 K/uL (4.8-10.8)
[2018-11-13 17:09] LABS: BUN Creatinine Ratio 15.9 (10-20); Calcium 8.6 mg/dl (8.5-10.1); Creatinine Clr Calc Pharmacy 64.5 ml/min; Est GFR (African American) 65.9; Est GFR (Non-African American) 56.8; Potassium 4.2 mmol/L (3.5-5.1)
--- NOTE | 2018-11-13 17:19 | Emergency Department Note ---
History of Present Illness General Chief complaint: Back Injury/Pain Stated complaint: BACK PAIN Time Seen by Provider: 11/13/18 16:03 History of Present Illness Maximum Pain Intensity: 8 This patient is a 73-year-old female presents to the emergency department with severe back pain for the last several days per the patient initially had a fall on 10/28 where she sustained a fracture at T12. The patient saw Dr. Street on 11/10. She was told if the pain got worse, that she was supposed to come to the emergency department. The patient has been taking Percocet at home with no relief. She cannot take NSAIDs. She denies any numbness, tingling or weakness. The pain is worse with any movement. Home Medications Home Medications Medication Instructions Recorded Confirmed Type aspirin [Aspirin Low Dose] 81 mg PO DAILY 04/02/18 11/13/18 History atorvastatin 40 mg PO DAILY 04/02/18 11/13/18 History carvedilol 12.5 mg PO BID 04/02/18 11/13/18 History fluoxetine 40 mg PO DAILY 04/02/18 11/13/18 History folic acid 1 mg PO DAILY 04/02/18 11/13/18 History furosemide [Lasix] 20 mg PO DAILY PRN 04/02/18 11/13/18 History gabapentin 300 mg PO TID 04/02/18 11/13/18 History hydralazine 50 mg PO TID 04/02/18 11/13/18 History hydroxychloroquine 200 mg PO BID 04/02/18 11/13/18 History meclizine 0.5 mg PO Q8 PRN 04/02/18 11/13/18 History metformin 500 mg PO BID 04/02/18 11/13/18 History methotrexate sodium 7.5 mg PO WK 04/02/18 11/13/18 History nitroglycerin 1 dose TRANSLINGUAL DIRECTED PRN 04/02/18 11/13/18 History pantoprazole 40 mg PO DAILY 04/02/18 11/13/18 History terazosin 2 mg PO HS 04/02/18 11/13/18 History prednisone 5 mg PO BID 11/13/18 11/13/18 History Allergies Allergy/AdvReac Type Severity Reaction Status Date / Time nadolol AdvReac Unknown GI UPSET Verified 11/13/18 19:33 nitroglycerin AdvReac Unknown HEADACHE Verified 11/13/18 19:33 NSAIDS (Non-Steroidal AdvReac Unknown GI UPSET Verified 11/13/18 19:33 Anti-Inflamma Past Med/Surg History Medical History HTN (hypertension) (Chronic) Diabetes mellitus type 2 in nonobese (Chronic) Dyslipidemia (Chronic) IBS (irritable bowel syndrome) (Chronic) History of breast cancer (Chronic) CVA (cerebral vascular accident) Hypertensive emergency Surgical History Status post renal artery angioplasty (Resolved) "1991" History of bilateral knee arthroplasty (Resolved) "L knee 08/1995 and R knee 03/2006" History of cholecystectomy (Resolved) "1998" History of modified radical mastectomy of right breast (Resolved) "10/24/2010 right mod. radical mastectomy with SLNB - [facility] - DR. Gerber " H/O repair of right rotator cuff (Resolved) "06/2012 [facility] " Family History Other Diabetes Heart disease Hypertension Social History Preferred Language: Tristanian Communication Ability: Effective Visual Impairment: No Limitations Hearing Ability: Normal Operations Support Professionals Required: No Beliefs That Will Affect Care: None marital status: Current Living Situation: Spouse current occupational status: retired Other Information That Helps Us Care for You: No Feels Safe at Home: Yes Safety Concerns: Feels Safe At This Time Smoking Status: Former smoker Do You Dip or Chew Tobacco: No Smoking End Date: 1994 Second Hand Exposure: No Hx Alcohol Use: Yes Hx Substance Use: No Review of Systems A total of 10 systems reviewed and were otherwise negative Physical Exam Vital Signs Vital Signs - 24 hr 11/13/18 15:46 11/13/18 20:59 Temperature 36.8 C Temperature Source Oral Sepsis Recent Fever Within 48 Hours No Sepsis New/Unexplained Change in Mental Status No Sepsis Action Taken by Nursing No Action Required Pulse Rate 70 Respiratory Rate 20 Respiratory Depth Normal Blood Pressure 178/77 H Blood Pressure Mean 110 Pulse Oximetry 97 Oxygen Delivery Method Room Air Room Air Constitutional WD/WN, vitals as above Eyes EOM intact bilaterally ENMT external ear and nose normal, oropharynx normal Neck trachea midline Respiratory normal respiratory effort, lungs clear to auscultation Cardiovascular RRR, no murmur, no edema Gastrointestinal (Abdomen) normal bowel sounds, soft, nontender, no hepatosplenomegaly Musculoskeletal Tenderness to palpation over the lower thoracic and upper lumbar spinous processes. Slight tenderness over the left SI joint. No muscle spasms present in the paraspinous muscles. Quadricep and hamstring strength 5/5. Dorsiflexion and plantarflexion of the feet intact bilaterally. Skin no rashes, warm and dry Neurologic Alert and oriented x3. No focal motor deficits. Sensation in the lower extremities is intact. Psychiatric Acting appropriately Course Patient was seen and examined Vital signs including blood pressure were reviewed medications list was verified with patient Labs were obtained, and a saline lock was established 4 mg of morphine IV ordered. She was also ordered Zofran 4 mg ODT Upon reevaluation, the pain was starting to come back. We reviewed her work-up. The patient was ordered an additional dose of morphine 4 mg IV. We discussed disposition plans. She was not comfortable being discharged home. Case was discussed with case case management and the [facility] team. They agreed to keep the patient overnight for pain control. Consultations Consultation #1: [facility] hospitalist team Administered Medications Lidocaine (Lidoderm 5%) 1 patch TD QAM DIAMOND Stop: 12/13/18 16:29 Last Admin: 11/13/18 16:35 Dose: 1 patch Documented by: [id number] Discontinued Medications Morphine Sulfate (Morphine Sulfate) 4 mg IV NOW STA Stop: 11/13/18 16:18 Last Admin: 11/13/18 16:40 Dose: 4 mg Documented by: [id number] Morphine Sulfate (Morphine Sulfate) 4 mg IV NOW STA Stop: 11/13/18 17:56 Last Admin: 11/13/18 18:04 Dose: 4 mg Documented by: [id number] Ondansetron HCl (Zofran Odt) 4 mg PO NOW STA Stop: 11/13/18 16:19 Last Admin: 11/13/18 16:35 Dose: 4 mg Documented by: [id number] Medical Decision Making Medical Records Attestation: I reviewed the patient's medical records. Home Medications Current Medication List: was personally reviewed by me Laboratory Data Attestation: I reviewed the patient's lab results. Result diagrams: 11/13/18 16:38 11/13/18 16:38 Lab Results 11/13/18 11/13/18 11/13/18 Range/Units 16:38 16:38 16:38 WBC 7.77 (4.8-10.8) K/uL RBC 3.59 L (4.2-5.4) M/uL Hgb 12.6 (12.0-16.0) g/dL Hct 36.9 L (37-47) % MCV 102.8 H (80-100) fL MCH 35.1 H (25-34) pg MCHC 34.1 (32-36) g/dL RDW Std Deviation 48.5 H (36.4-46.3) fL RDW Coeff of Farheen 13.1 (11.5-14.5) % Plt Count 141 (130-400) K/uL MPV 8.5 (7.4-10.4) fL Immature Gran % (Auto) 0.8 % Neut % (Auto) 82.3 % Lymph % (Auto) 12.6 % Jay % (Auto) 4.2 % Eos % (Auto) 0.0 % Baso % (Auto) 0.1 % Immature Gran # (Auto) 0.06 H (0.00-0.02) K/uL Neut # (Auto) 6.39 (1.4-6.5) K/uL Lymph # (Auto) 0.98 L (1.2-3.4) K/uL Jay # (Auto) 0.33 (0.11-0.59) K/uL Eos # (Auto) 0.00 (0-0.5) K/uL Baso # (Auto) 0.01 (0-0.2) K/uL PT 10.4 (9.0-12.0) Seconds INR 1.0 (0.9-1.1) Sodium 140 (136-145) mmol/L Potassium 4.2 (3.5-5.1) mmol/L Chloride 106 (98-107) mmol/L Carbon Dioxide 26 (21-32) mmol/L Anion Gap 8.0 (3-11) BUN 16 (7-18) mg/dl Creatinine 0.98 (0.6-1.2) mg/dl Est Cr Clr Drug Dosing 64.5 ml/min Est GFR ( Amer) 65.9 Est GFR (Non-Af Amer) 56.8 BUN/Creatinine Ratio 15.9 (10-20) Glucose 279 H (70-99) mg/dl Calcium 8.6 (8.5-10.1) mg/dl Prescription Drug Monitoring [place] Drug Monitoring Program reviewed and no issues identified Blood Pressure Blood Pressure Findings: Elevated blood pressure Blood Pressure Disposition: elevated BP felt to be situational MDM Narrative Differential diagnosis: Ongoing pain from fracture, new injury, muscular pain, radiculopathy, among others This patient is a 73-year-old female presents the emergency department with ongoing back pain related to a fall. On exam, she was neurovascularly intact. I reviewed her past records. She did have a fairly significant fracture at T12. Unfortunately, i was unable to control the patient's pain in the emergency department. I also felt that she was a significant fall risk; [facility] Impression & Plan Compression fracture of T12 vertebra Discharge Plan Visit Data Chief Complaint: Back Injury/Pain Stated Complaint: BACK PAIN ED Provider: Reynold Castanon ED Midlevel Provider: Delmy Boggs Discharge Problem: Compression fracture of T12 vertebra Patient Disposition: Admitted As Inpatient Condition: Fair Forms Stand Alone Forms: [facility] Prescriptions: No Action fluoxetine 40 mg Capsule 40 mg PO DAILY RF: 0 atorvastatin 40 mg Tablet 40 mg PO DAILY RF: 0 metformin 500 mg Tablet 500 mg PO BID RF: 0 carvedilol 6.25 mg Tablet 12.5 mg PO BID RF: 0 nitroglycerin 400 mcg/spray Aerosol,[place] 1 dose Translingual DIRECTED PRN (Reason: Chest Pain) RF: 0 meclizine 12.5 mg Tablet 0.5 mg PO Q8 PRN (Reason: Dizziness) RF: 0 aspirin [Aspirin Low Dose] 81 mg Tablet,Delayed Release (Dr/Ec) 81 mg PO DAILY RF: 0 methotrexate sodium 2.5 mg tablet 7.5 mg PO WK RF: 0 terazosin 2 mg Capsule 2 mg PO HS RF: 0 pantoprazole 40 mg tablet,delayed release (DR/EC) 40 mg PO DAILY RF: 0 gabapentin 300 mg Capsule 300 mg PO TID RF: 0 folic acid 1 mg tablet 1 mg PO DAILY RF: 0 hydralazine 50 mg Tablet 50 mg PO TID RF: 0 furosemide [Lasix] 20 mg Tablet 20 mg PO DAILY PRN (Reason: Weight Gain) RF: 0 hydroxychloroquine 200 mg tablet 200 mg PO BID RF: 0 prednisone 5 mg Tablet 5 mg PO BID RF: 0 Referrals Referrals: Derrek Sparks MD [Primary Care Provider] -
[2018-11-13] MEDS ORDERED: ONDANSETRON INJ 2 MG/ML 2 ML VIAL IV PRN (22:21)
[2018-11-13] MEDS ORDERED: FUROSEMIDE 20 MG TAB PO PRN (22:21)
[2018-11-13] MEDS ORDERED: MECLIZINE 12.5 MG TAB PO PRN (22:21)
[2018-11-13] MEDS ORDERED: TIZANIDINE HCL 4 MG TABLET PO PRN (22:21)
[2018-11-13] MEDS ORDERED: POLYETHYLENE (MIRALAX) 17 GM PACK PO PRN (22:21)
[2018-11-13] MEDS ORDERED: HYDROmorphone INJ 0.5 MG/0.5 ML SYR IV PRN (22:21)
[2018-11-13] MEDS ORDERED: CARBOHYDRATES FOR HYPOGLYCEMIA PO PRN (22:45)
[2018-11-13] MEDS ORDERED: DEXTROSE 50% 50 ML SYRINGE IV PRN (22:45)
[2018-11-13] MEDS ORDERED: GLUCOSE 40% GEL 15 GM TUBE PO PRN (22:45)
[2018-11-13] MEDS ORDERED: INSULIN ASPART 100 UNITS/ML 3 ML PEN SC SCH (22:45)
[2018-11-13] MEDS ORDERED: GLUCOSE 10 TABS/TUBE PO PRN (22:45)
[2018-11-13] MEDS ORDERED: GLUCAGON FOR INJ 1 MG VIAL SQ PRN (22:45)
[2018-11-13] MEDS: OXYCODONE HCL IR 5 MG TAB (IMMEDIATE RELEASE) PO PRN (22:52)
[2018-11-13] MEDS: HYDROXYCHLOROQUINE SULFATE 200 MG TAB PO SCH (22:55)
[2018-11-13] MEDS ORDERED: NITROGLYCERIN SL 0.4 MG/TAB TAB SL PRN (23:02)
--- NOTE | 2018-11-14 00:45 | History and Physical Report ---
DATE OF ADMISSION: 11/13/2018 CHIEF COMPLAINT: Back pain. HISTORY OF PRESENT ILLNESS: This is a 73-year-old female with past medical history significant for type 2 diabetes, hyperlipidemia, diabetic peripheral angiopathy, mild sleep apnea, peripheral vascular disease, history of [place], history of hypertension, irritable bowel syndrome, GERD, rheumatoid arthritis, iron deficiency anemia presents with severe back pain. The patient apparently fell on 10/28/2018 at home while she was moving a chair, felled backwards and she was able to get up but had severe pain. She thought it will go away, but it did not and she went to family doctor and x-rays were done which were unremarkable, but the pain was not getting better, so she came to the ER on 11/04/2018 and the CAT scan done in the ER showed T12 burst fracture. She was discharged home on pain medications to follow with Orthopedics and she saw Dr. Street last and advised to see her in 2 weeks and plan for MRI of the back and advised her to go to the ER if the pain does not improve or gets worse. Patient says she is having difficulty ambulating because of severe back pain and she could not sleep in the night, so she came here. Her hemodynamics are stable. No complaints except the back pain. Denies any chest pain, no shortness of breath, no cough, no fever, no chills, no headache, no dizziness, no blurred vision, no runny nose, no sore throat, no difficulty swallowing. Appetite is okay. No nausea, no abdominal pain. Normal bowel and bladder movements. No hematuria, no burning micturition, no black stools or blood in the stools, no rash is seen. No lower extremity edema. The patient says she also fell in September and hit her head and she saw her family doctor because she had lot of bruises on the face and she followed with ENT and found to have broken nasal bone which was treated but right now all the bruises are resolved. ALLERGIES: NADOLOL, NITROGLYCERIN AND NSAIDS. PAST MEDICAL HISTORY: As mentioned above. PAST SURGICAL HISTORY: Left knee replacement, renal angioplasty, colonoscopy, EGDs, modified radical mastectomy, laparoscopic surgical removal of the ducts, right shoulder replacement, left hip surgery, excision of the chest subcutaneous tumor 3 cm, right knee replacement, cholecystectomy, angioplasty, right rotator cuff repair, closed treatment of nasal fracture with stabilization on 09/15/2018, ultrasound guided breast biopsy in 2010. MEDICATIONS: The patient is on Zanaflex 2 mg p.o. t.i.d. p.r.n., methotrexate 2.5 mg 6 tablets once a week, prednisone 7.5 mg daily, Plaquenil 200 mg p.o. b.i.d., Coreg 12.5 mg p.o. b.i.d., atorvastatin 40 mg p.o. daily, folic acid 1 mg p.o. daily, metformin 500 mg p.o. b.i.d., terazosin 2 mg p.o. at bedtime, Protonix 40 mg p.o. daily, fluoxetine 40 mg p.o. daily, Lasix 20 mg p.r.n., gabapentin 300 mg p.o. daily, hydralazine 50 mg p.o. t.i.d., nitroglycerin 0.4 mg sublingual spray p.r.n., Antivert 12.5 mg p.o. t.i.d. p.r.n. FAMILY HISTORY: Significant for father, asthma. Mother has diabetes. SOCIAL HISTORY: , lives with . Quit smoking in 1989, smoked 1 pack a day for 30 years. No alcohol use, no drug use. REVIEW OF SYMPTOMS: As per HPI. Rest of review of systems negative. PHYSICAL EXAMINATION: GENERAL: The patient is of moderate build, not in acute distress. VITAL SIGNS: Temperature 36.8, pulse 58, respiratory rate 20, blood pressure 197/85, oxygen 97% room air. HEENT: No pallor, no icterus. Pupils equal, round, and reactive to light. NECK: No JVD, no neck masses, no carotid bruits. CARDIOVASCULAR: S1, S2 heard, regular rate and rhythm, no murmur, no gallop. RESPIRATORY SYSTEM: Normal AP diameter. No accessory muscle use. No wheezing, no crackles. ABDOMEN: Soft, bowel sounds present. Nontender. No distention. CENTRAL NERVOUS SYSTEM: Cranial nerves II-XII grossly intact, nonfocal. MUSCULOSKELETAL: Lower thoracic spine, mild tenderness. Straight leg test negative. EXTREMITIES: No edema, no erythema. LABS: WBC 7.7, hemoglobin 12.6, hematocrit 36.9, platelets 141. PT 14.4, INR 1. Sodium 140, potassium 4.2, chloride 106, bicarbonate 26, BUN 16, creatinine 0.9, serum glucose 279, calcium 8.6. ASSESSMENT AND PLAN: This is a 73-year-old female who presents with severe back. 1. Severe back pain status post mechanical fall and T12 burst fracture in the first week of October. Severe pain is limiting her ambulation and also not able to sleep well because of pain. We will observe on medical floor. Consult Orthopedics. PT and OT. Further recommendations from ortho. Pain control. 2. History of diabetes. Hold metformin. We will place her on insulin sliding scale. Follow the HbA1c levels, follow the blood sugar. 3. History of rheumatoid arthritis, continue Plaquenil, methotrexate and prednisone. 4. History of hypertension. Continue home medication of hydralazine, Coreg and terazosin. We will monitor the blood pressure. 5. History of depression, on fluoxetine. 6. History of hyperlipidemia on statin. 7. Deep venous thrombosis prophylaxis. SCDs for now. 8. Disposition. Observation on medical floor. PT and OT. Social Service to help with discharge planning. Level 1, full code. MTDD
[2018-11-14] MEDS ORDERED: Nursing to Pharmacy Communication ONE ×2 (05:45→06:36)
[2018-11-14] MEDS: OXYCODONE HCL IR 5 MG TAB (IMMEDIATE RELEASE) PO PRN ×3 (05:53→21:31)
[2018-11-14 05:55] LABS: Basophils # (auto) 0.01 K/uL (0-0.2); Basophils % (auto) 0.1 %; Eosinophils # (auto) 0.03 K/uL (0-0.5); Eosinophils % (auto) 0.4 %; Hematocrit (blood only) 36.9 % (37-47); Hemoglobin 12.2 g/dL (12.0-16.0); Immature Granulocytes # (auto) 0.05 K/uL (0.00-0.02); Immature Granulocytes % (auto) 0.7 %; Lymphocytes # (auto) 2.19 K/uL (1.2-3.4); Lymphocytes % (auto) 31.6 %; Mean Corpuscular Hgb Conc 33.1 g/dL (32-36); Mean Corpuscular Volume 103.9 fL (80-100); Mean Platelet Volume 8.2 fL (7.4-10.4); Monocytes # (auto) 0.51 K/uL (0.11-0.59); Monocytes % (auto) 7.3 %; Neutrophils # (auto) 4.15 K/uL (1.4-6.5); Neutrophils % (auto) 59.9 %; Platelet Count 109 K/uL (130-400); RDW Coefficient of Variation 13.1 % (11.5-14.5); RDW Standard Deviation 49.3 fL (36.4-46.3); Red Blood Count 3.55 M/uL (4.2-5.4); White Blood Count 6.94 K/uL (4.8-10.8)
[2018-11-14] MEDS ORDERED: INSULIN ASPART 100 UNITS/ML 3 ML PEN SC SCH ×2 (06:00→07:30)
[2018-11-14 06:17] LABS: Estimated Average Glucose 166 mg/dl
[2018-11-14 06:31] LABS: BUN Creatinine Ratio 20.7 (10-20); Calcium 8.6 mg/dl (8.5-10.1); Creatinine Clr Calc Pharmacy 90.4 ml/min; Est GFR (African American) 98.9; Est GFR (Non-African American) 85.4; Magnesium 1.2 mg/dl (1.8-2.4); Potassium 3.8 mmol/L (3.5-5.1)
[2018-11-14] MEDS: ACETAMINOPHEN 325 MG TAB PO PRN ×2 (08:11→18:13)
[2018-11-14] MEDS: HYDROXYCHLOROQUINE SULFATE 200 MG TAB PO SCH ×2 (08:11→20:20)
[2018-11-14] MEDS: PANTOprazole 40 MG TAB PO SCH (08:12)
[2018-11-14] MEDS: ASPIRIN 81 MG ECTAB PO SCH (08:12)
[2018-11-14] MEDS: HydrALAZINE TAB 50 MG TAB PO SCH ×3 (08:13→21:41)
[2018-11-14] MEDS: FOLIC ACID 1 MG TAB PO SCH (08:13)
[2018-11-14] MEDS: CARVEDILOL 6.25 MG TAB PO SCH ×3 (08:13→22:51)
[2018-11-14] MEDS: FLUOXETINE HCL 20 MG CAP PO SCH (08:13)
[2018-11-14] MEDS: LIDOCAINE 5% 1 PATCH TD SCH ×2 (08:14→11:11)
[2018-11-14] MEDS: ATORVASTATIN 40 MG TAB PO SCH (08:15)
[2018-11-14] MEDS: GABAPENTIN 300 MG CAP PO SCH ×3 (08:15→20:20)
[2018-11-14] MEDS: predniSONE 5 MG TAB PO SCH (08:19)
[2018-11-14] MEDS: INSULIN ASPART 100 UNITS/ML 3 ML PEN SC SCH ×4 (08:51→21:44)
[2018-11-14] MEDS ORDERED: predniSONE 5 MG TAB PO SCH (09:00)
[2018-11-14] MEDS: MAGNESIUM SULFATE / D5W 1 GM/100 ML BAG IV SCH ×4 (10:02→14:39)
--- NOTE | 2018-11-14 10:17 | Hospitalist Progress Note ---
Date of Service November 14, 2018 Assessment & Plan (1) Compression fracture of T12 vertebra: Pain is been present since fall in early October. Orthospine consult with Dr. Street planning possible surgery tomorrow. Continue supportive care with pain control at this time. (2) Hypomagnesemia: Etiology likely PPI. Replace and repeat in a.m. If persistently low may consider more regular supplementation and follow-up with outpatient primary care doctor. Of note no GI losses have been reported. (3) HTN (hypertension): Controlled, continue current antihypertensive regimen including Coreg 12.5 p.o. twice daily, hydralazine 50 mg p.o. 3 times daily, terazosin 2 mg p.o. nightly. (4) Diabetes mellitus type 2 in nonobese: Hemoglobin A1c reflects control at 7.4 and she is at goal in this hospitalization. Continue with insulin sliding scale coverage as ordered. (5) Rheumatoid arthritis: Currently denies any flare. Continue Plaquenil 200 mg p.o. twice daily, methotrexate 15 mg every Wednesday, folic acid daily. Also continue prednisone 7.5 mg daily. This should be continued perioperatively and if patient is unable to tolerate p.o., hydrocortisone IV should be considered. (6) DVT prophylaxis: SCDs pending procedure Full code Disposition-pending Ortho Spine recommendations Yoly Sin DO [facility] Hospitalist Subjective 73-year-old female with fall and subsequent fracture of T12 presents for uncontrolled pain. Pain control efforts are working for her and she is able to ambulate. I arrived when PT was leaving and they said she was doing well but having pain. Review of Systems Review of Systems: All systems reviewed & are unremarkable except as noted in HPI & below Physical Exam Physical Exam: CONSTITUTIONAL: WNWD, vitals as above, generally well- appearing EYES: normal conjuctivae, no scleral icterus ENT: MMM RESPIRATORY: clear to auscultation bilaterally, no crackles, rales or wheezes, normal respiratory effort CARDIOVASCULAR: regular rate and rhythm, S1 and 2 heard without murmurs, gallops or rubs, no JVD, no peripheral edema, euvolemic CHEST: inspection of chest revealed a small pectus abnormality. GASTROINTESTINAL: normal bowel sounds, soft, nontender, nonistended MUSCULOSKELETAL: strength 5/5 throughout, head is normocephalic and atraumatic, palpation of SP along lower thoracics and lower lumbar area was painful. She can but had some difficulty with sitting up independently. SKIN: warm and dry NEUROLOGIC: CN 2-12 grossly intact, no sensory deficit, no gross focal deficits. Lower extremities are NVI PSYCHIATRIC: alert cooperative and oriented to person, place and time. Results & Data Vital Signs (Past 12 Hours) Vital Signs Temp Pulse Pulse Resp BP Pulse Ox 11/14/18 07:35 36.5 C 54 L 17 146/80 H 94 11/14/18 02:51 165/69 H 11/13/18 22:32 36.6 C 54 L 18 185/80 H 98 Laboratory Results Short CBC 11/13/18 11/14/18 Range/Units 16:38 05:45 WBC 7.77 6.94 (4.8-10.8) K/uL Hgb 12.6 12.2 (12.0-16.0) g/dL Hct 36.9 L 36.9 L (37-47) % Plt Count 141 109 L (130-400) K/uL BMP 11/13/18 11/14/18 16:38 05:45 Sodium 140 142 Potassium 4.2 3.8 Chloride 106 106 Carbon Dioxide 26 29 BUN 16 14 Creatinine 0.98 0.70 Glucose 279 H 131 H Calcium 8.6 8.6 Medications Administered Current Inpatient Medications Acetaminophen (Tylenol) 650 mg PO Q4H PRN PRN Reason: pain/fever Stop: 12/13/18 22:20 Last Admin: 11/14/18 08:11 Dose: 650 mg Documented by: Aspirin (Ecotrin Ectab) 81 mg PO DAILY [facility] Stop: 12/14/18 08:59 Last Admin: 11/14/18 08:12 Dose: 81 mg Documented by: Atorvastatin Calcium (Lipitor) 40 mg PO DAILY [facility] Stop: 12/14/18 08:59 Last Admin: 11/14/18 08:15 Dose: 40 mg Documented by: Carvedilol (Coreg) 12.5 mg PO BID [facility] Stop: 12/14/18 08:59 Last Admin: 11/14/18 08:13 Dose: 12.5 mg Documented by: Dextrose (Dextrose 50%) 25 - 50 ml IV UD PRN; Protocol PRN Reason: Hypoglycemia Protocol Stop: 12/13/18 22:44 Fluoxetine HCl (Prozac) 40 mg PO DAILY [facility] Stop: 12/14/18 08:59 Last Admin: 11/14/18 08:13 Dose: 40 mg Documented by: Folic Acid (Folvite) 1 mg PO DAILY [facility] Stop: 12/14/18 08:59 Last Admin: 11/14/18 08:13 Dose: 1 mg Documented by: Furosemide (Lasix) 20 mg PO DAILY PRN PRN Reason: Weight Gain Stop: 12/13/18 22:20 Gabapentin (Neurontin) 300 mg PO TID [facility] Stop: 12/14/18 08:59 Last Admin: 11/14/18 08:15 Dose: 300 mg Documented by: Glucagon (Glucagen) 1 mg SQ UD PRN; Protocol PRN Reason: Hypoglycemia Protocol Stop: 12/13/18 22:44 Glucose (Glucose 40%) 15 - 30 gm PO UD PRN; Protocol PRN Reason: Hypoglycemia Protocol Stop: 12/13/18 22:44 Glucose (Dex4 Glucose) 4 - 8 tabs PO UD PRN; Protocol PRN Reason: Hypoglycemia Protocol Stop: 12/13/18 22:44 Hydralazine HCl (Apresoline) 50 mg PO TID [facility] Stop: 12/14/18 08:59 Last Admin: 11/14/18 08:13 Dose: 50 mg Documented by: Hydromorphone HCl (Dilaudid) 0.5 mg IV Q4H PRN PRN Reason: Pain Stop: 11/27/18 22:20 Hydroxychloroquine Sulfate (Plaquenil) 200 mg PO BID [facility] Stop: 12/13/18 22:20 Last Admin: 11/14/18 08:11 Dose: 200 mg Documented by: Magnesium Sulfate/Dextrose (Magnesium Sulfate / D5w) 1 gm in 100 mls @ 100 mls/hr IV Q1H [facility] Stop: 11/14/18 13:29 Last Admin: 11/14/18 10:02 Dose: 100 mls/hr Documented by: Insulin Aspart (Novolog Flexpen) 0 units SC ACHS [facility] Stop: 12/14/18 07:29 Last Admin: 11/14/18 08:51 Dose: 4 units Documented by: Lidocaine (Lidoderm 5%) 2 patch TD QAM [facility] Stop: 12/14/18 10:14 Meclizine HCl (Antivert) 6.25 mg PO Q8 PRN PRN Reason: Dizziness Stop: 12/13/18 22:20 Methotrexate (Methotrexate) 15 mg PO We@0900 [facility] Stop: 12/16/18 08:59 Miscellaneous (Remove Lidoderm Patch) 1 ea N/A DAILY@2100 [facility] Stop: 12/13/18 20:59 Last Admin: 11/13/18 22:50 Dose: 1 ea Documented by: Miscellaneous (Carbohydrates For Hypoglycemia) 15 - 30 gm PO UD PRN PRN Reason: Hypoglycemia Treatment Stop: 12/13/18 22:44 Nitroglycerin (Nitrostat) 0.4 mg SL UD PRN PRN Reason: Chest Pain Stop: 12/13/18 23:01 Ondansetron HCl (Zofran) 4 mg IV Q6H PRN PRN Reason: Nausea Stop: 12/13/18 22:20 Oxycodone HCl (Roxicodone Immediate Rel) 5 mg PO Q6H PRN PRN Reason: Pain Stop: 11/27/18 22:20 Last Admin: 11/14/18 05:53 Dose: 5 mg Documented by: Pantoprazole Sodium (Protonix) 40 mg PO DAILY [facility] Stop: 12/14/18 08:59 Last Admin: 11/14/18 08:12 Dose: 40 mg Documented by: Polyethylene Glycol (Miralax Powder Packet) 17 gm PO DAILY PRN PRN Reason: Constipation Stop: 12/13/18 22:20 Prednisone (Prednisone) 7.5 mg PO DAILY [facility] Stop: 12/14/18 08:59 Last Admin: 11/14/18 08:19 Dose: 7.5 mg Documented by: Terazosin HCl (Hytrin) 2 mg PO HS [facility] Stop: 12/14/18 20:59 Tizanidine HCl (Zanaflex) 2 mg PO TID PRN PRN Reason: Muscle Spasm Stop: 12/13/18 22:20 Last Admin: 11/14/18 08:14 Dose: 2 mg Documented by:
--- NOTE | 2018-11-14 11:27 | Orthopedic Consultation ---
Date of Consultation November 14, 2018 Assessment & Plan (1) Compression fracture of T12 vertebra: This time patient has known T12 burst fracture and has continued to decline with her activities of daily living and increase in pain. Subsequently we discussed surgical stabilization by way of a T12 kyphoplasty. I will obtain a preoperative MRI to rule out any adjacent level fracture. Risk benefits pros cons and alternatives were outlined in detail. She will made n.p.o. after midnight. Present on Admission?: Yes History of Present Illness Reason for Consultation: Back pain Attending Physician: Yoly Sin, DO History of Present Illness This is a 73-year-old female with known burst fracture of T12. She is been trying to manage this at home but has had significant decline in status chronic back pain and marked limitations in her activities of daily living. She denies any numbness and tingling to lower extremities. She denies any radicular complaints today. Allergies Allergy/AdvReac Type Severity Reaction Status Date / Time nadolol AdvReac Unknown GI UPSET Verified 11/13/18 19:33 nitroglycerin AdvReac Unknown HEADACHE Verified 11/13/18 19:33 NSAIDS (Non-Steroidal AdvReac Unknown GI UPSET Verified 11/13/18 19:33 Anti-Inflamma Home Medications Home Medications Medication Instructions Recorded Confirmed Type aspirin [Aspirin Low Dose] 81 mg PO DAILY 04/02/18 11/13/18 History atorvastatin 40 mg PO DAILY 04/02/18 11/13/18 History carvedilol 12.5 mg PO BID 04/02/18 11/13/18 History fluoxetine 40 mg PO DAILY 04/02/18 11/13/18 History folic acid 1 mg PO DAILY 04/02/18 11/13/18 History furosemide [Lasix] 20 mg PO DAILY PRN 04/02/18 11/13/18 History gabapentin 300 mg PO TID 04/02/18 11/13/18 History hydralazine 50 mg PO TID 04/02/18 11/13/18 History hydroxychloroquine 200 mg PO BID 04/02/18 11/13/18 History meclizine 0.5 mg PO Q8 PRN 04/02/18 11/13/18 History metformin 500 mg PO BID 04/02/18 11/13/18 History methotrexate sodium 7.5 mg PO WK 04/02/18 11/13/18 History nitroglycerin 1 dose TRANSLINGUAL DIRECTED PRN 04/02/18 11/13/18 History pantoprazole 40 mg PO DAILY 04/02/18 11/13/18 History terazosin 2 mg PO HS 04/02/18 11/13/18 History prednisone 7.5 mg PO DAILY 11/13/18 11/14/18 History Patient History Medical History HTN (hypertension) (Chronic) Diabetes mellitus type 2 in nonobese (Chronic) Dyslipidemia (Chronic) IBS (irritable bowel syndrome) (Chronic) History of breast cancer (Chronic) CVA (cerebral vascular accident) Hypertensive emergency Surgical History Status post renal artery angioplasty (Resolved) "1991" History of bilateral knee arthroplasty (Resolved) "L knee 08/1995 and R knee 03/2006" History of cholecystectomy (Resolved) "1998" History of modified radical mastectomy of right breast (Resolved) "10/24/2010 right mod. radical mastectomy with SLNB - [facility] - DR. Gerber " H/O repair of right rotator cuff (Resolved) "06/2012 [facility] " Family History Other Diabetes Heart disease Hypertension Social History Preferred Language: Burmese Communication Ability: Effective Visual Impairment: No Limitations Hearing Ability: Normal Tankage Grinder Required: No Beliefs That Will Affect Care: None marital status: Current Living Situation: Spouse current occupational status: retired Other Information That Helps Us Care for You: No Feels Safe at Home: Yes Safety Concerns: Feels Safe At This Time Smoking Status: Former smoker Do You Dip or Chew Tobacco: No Smoking End Date: 1994 Second Hand Exposure: No Hx Alcohol Use: Yes Hx Substance Use: No Physical Exam Physical Exam: On exam she is in the chair at the bedside. She is in obvious distress. She has reasonable strength testing the bilateral extremities. Sensory symmetric and intact. Results & Data Vital Signs (Past 12 Hours) Vital Signs Temp Pulse Resp BP Pulse Ox 11/14/18 07:35 36.5 C 54 L 17 146/80 H 94 05/20/19 02:51 165/69 H
--- NOTE | 2018-11-14 15:24 | Anesthesiology Consultation ---
Date of Service November 14, 2018 Assessment & Plan (1) Encounter for pre-operative examination: Chart Review Chart Review: Acceptable Risk for Surgery and Patient NOT seen in Pre Admission Testing Consults Requested none Additional Notes Attempted to see patient, but she was currently off the floor. Patient will be evaluated and consented for anesthesia the day of surgery. History Surgery Operation Date: 11/15/18 13:05 Proposed Procedures p T12 Kyphoplasty - [address] Street, Height/Weight Height: 5 ft 8 in Weight: 107.2 kg Allergies Allergy/AdvReac Type Severity Reaction Status Date / Time nadolol AdvReac Unknown GI UPSET Verified 11/13/18 19:33 nitroglycerin AdvReac Unknown HEADACHE Verified 11/13/18 19:33 NSAIDS (Non-Steroidal AdvReac Unknown GI UPSET Verified 11/13/18 19:33 Anti-Inflamma Medications Home Medications Medication Instructions Recorded Confirmed Last Taken aspirin [Aspirin Low Dose] 81 mg PO DAILY 04/02/18 11/13/18 09/06/18 atorvastatin 40 mg PO DAILY 04/02/18 11/13/18 09/06/18 carvedilol 12.5 mg PO BID 04/02/18 11/13/18 09/06/18 fluoxetine 40 mg PO DAILY 04/02/18 11/13/18 09/06/18 folic acid 1 mg PO DAILY 04/02/18 11/13/18 Unknown furosemide [Lasix] 20 mg PO DAILY PRN 04/02/18 11/13/18 09/06/18 gabapentin 300 mg PO TID 04/02/18 11/13/18 09/06/18 hydralazine 50 mg PO TID 04/02/18 11/13/18 09/06/18 hydroxychloroquine 200 mg PO BID 04/02/18 11/13/18 09/06/18 meclizine 0.5 mg PO Q8 PRN 04/02/18 11/13/18 Unknown metformin 500 mg PO BID 04/02/18 11/13/18 09/06/18 methotrexate sodium 7.5 mg PO WK 04/02/18 11/13/18 Unknown nitroglycerin 1 dose TRANSLINGUAL DIRECTED PRN 04/02/18 11/13/18 Unknown pantoprazole 40 mg PO DAILY 04/02/18 11/13/18 09/06/18 terazosin 2 mg PO HS 04/02/18 11/13/18 09/06/18 prednisone 7.5 mg PO DAILY 11/13/18 11/14/18 Unknown Active Medications Generic Name Dose Route Start Last Admin Trade Name Freq PRN Reason Stop Dose Admin Acetaminophen 650 mg 11/13/18 22:21 11/14/18 08:11 Tylenol PO 12/13/18 22:20 650 mg Q4H PRN Administration pain/fever Aspirin 81 mg 11/14/18 09:00 11/14/18 08:12 Ecotrin Ectab PO 12/14/18 08:59 81 mg DAILY [facility] Administration Atorvastatin Calcium 40 mg 11/14/18 09:00 11/14/18 08:15 Lipitor PO 12/14/18 08:59 40 mg DAILY [facility] Administration Carvedilol 12.5 mg 11/14/18 09:00 11/14/18 08:13 Coreg PO 12/14/18 08:59 12.5 mg BID [facility] Administration Fluoxetine HCl 40 mg 11/14/18 09:00 11/14/18 08:13 Prozac PO 12/14/18 08:59 40 mg DAILY [facility] Administration Folic Acid 1 mg 11/14/18 09:00 11/14/18 08:13 Folvite PO 12/14/18 08:59 1 mg DAILY [facility] Administration Gabapentin 300 mg 11/14/18 09:00 11/14/18 14:39 Neurontin PO 12/14/18 08:59 300 mg TID [facility] Administration Hydralazine HCl 50 mg 11/14/18 09:00 11/14/18 14:39 Apresoline PO 12/14/18 08:59 50 mg TID [facility] Administration Hydroxychloroquine Sulfate 200 mg 11/13/18 22:21 11/14/18 08:11 Plaquenil PO 12/13/18 22:20 200 mg BID [facility] Administration Insulin Aspart 0 units 11/14/18 07:30 11/14/18 13:03 Novolog Flexpen SC 12/14/18 07:29 6 units ACHS [facility] Administration Lidocaine 2 patch 11/14/18 10:15 11/14/18 11:11 Lidoderm 5% TD 12/14/18 10:14 1 patch QAM [facility] Administration Miscellaneous 1 ea 11/13/18 21:00 11/13/18 22:50 Remove Lidoderm Patch N/A 12/13/18 20:59 1 ea DAILY@2100 [facility] Administration Oxycodone HCl 5 mg 11/13/18 22:21 11/14/18 13:50 Roxicodone Immediate Rel PO 11/27/18 22:20 5 mg Q6H PRN Administration Pain Pantoprazole Sodium 40 mg 11/14/18 09:00 11/14/18 08:12 Protonix PO 12/14/18 08:59 40 mg DAILY [facility] Administration Prednisone 7.5 mg 11/14/18 09:00 11/14/18 08:19 Prednisone PO 12/14/18 08:59 7.5 mg DAILY [facility] Administration Tizanidine HCl 2 mg 11/13/18 22:21 11/14/18 08:14 Zanaflex PO 12/13/18 22:20 2 mg TID PRN Administration Muscle Spasm NPO Date Last Intake of Fluids: 11/14/18 Time Last Intake of Fluids: 23:59 Date Last Intake of Solids: 11/14/18 Time Last Intake of Solids: 23:59 Past Medical History Medical History HTN (hypertension) (Chronic) Diabetes mellitus type 2 in nonobese (Chronic) Dyslipidemia (Chronic) IBS (irritable bowel syndrome) (Chronic) History of breast cancer (Chronic) CVA (cerebral vascular accident) Hypertensive emergency Past Family History Family History Other Diabetes Heart disease Hypertension Past Surgical History Surgical History Status post renal artery angioplasty (Resolved) "1991" History of bilateral knee arthroplasty (Resolved) "L knee 08/1995 and R knee 03/2006" History of cholecystectomy (Resolved) "1998" History of modified radical mastectomy of right breast (Resolved) "10/24/2010 right mod. radical mastectomy with SLNB - [facility] - DR. Gerber " H/O repair of right rotator cuff (Resolved) "06/2012 RIGHT - [facility] [place] " Social History Smoking Status: Former smoker Do You Dip or Chew Tobacco: No Smoking End Date: 1994 Hx Alcohol Use: Yes alcohol intake frequency: holidays/special occasions only Alcohol Intake Frequency Comment: 1 drink Hx Substance Use: No Physical Exam Vital Signs Last Vital Signs Temp 36.5 C 11/14/18 12:05 Pulse 59 L 11/14/18 12:05 Resp 18 11/14/18 12:05 BP 137/73 11/14/18 12:05 Pulse Ox 95 11/14/18 12:05 Testing Laboratory Results 11/14/18 05:45 11/14/18 05:45 11/13/18 11/14/18 16:38 05:45 PT 10.4 INR 1.0 Hemoglobin A1c 7.4 H Electrocardiogram Date: 11/14/18 Findings: + SB @ (52) Increased R/S ratio in V1, consider early transition or posterior infarct, When compared with ECG of 11-APR-2017 06:57, No significant change was found
--- NOTE | 2018-11-14 17:08 | Magnetic Resonance Report ---
MR lumbar spine wo con CLINICAL HISTORY: 73 years-old Female with back pain. Acute low back pain COMPARISON: CT lumbar spine 11/04/2018 TECHNIQUE: Multiplanar, multi sequence MRI of the lumbar spine was performed without intravenous cont rast. FINDINGS: 4 mm anterolisthesis L5 on S1, 5 mm anterolisthesis L4 on L5 and 6 mm anterolisthesis L3 on L4 is unc hanged and likely secondary to long-standing severe facet arthrosis. Acute-appearing burst fracture o f the T12 vertebral body redemonstrated with approximately 30% anterior endplate compression deformit y and 80% central superior endplate compression deformity. 6 mm retropulsion is noted about the super ior aspect of the posterior endplate. Moderate paraspinal edema surrounds the T12 level. Watch Crystal Grinder locali zer images demonstrate no gross extraspinal abnormality. No aortic aneurysm or adenopathy. T2 hyperin tense lesions about the left kidney are noted, possibly reflecting cysts. Conus medullaris terminates at the T12-L1 level. Signal within the thoracic spinal cord appears normal. Study is mildly motion d egraded. T11-T12: Spondylitic spurring with small posterior annular disc bulge and moderate facet arthrosis. R etropulsion as above flattens the ventral thecal sac without significant central canal stenosis. Ther e is mild left foraminal narrowing. T12-L1: Spondylitic spurring with small posterior annular disc bulge and moderate facet arthrosis. N o central canal or foraminal narrowing. L1-L2: Spondylitic spurring with small circumferential annular disc bulge, moderate facet arthrosis with ligamentum flavum thickening and small bilateral facet effusions. Flattening of the ventral thec al sac with mild bilateral foraminal stenosis. The central canal is generally patent. L2-L3: Spondylitic spurring with small circumferential annular disc bulge, severe facet arthrosis wi th ligamentum flavum thickening. Mild central canal stenosis with mild bilateral foraminal narrowing. L3-L4: Disc space uncovering secondary to anterolisthesis as above. Spondylitic spurring with small circumferential annular disc bulge, severe facet arthrosis with ligamentum flavum thickening. Mild ce ntral canal stenosis. Mild left with [id number] right foraminal narrowing. L4-L5: Mild spondylitic spurring with severe facet arthrosis and mild ligamentum flavum thickening. No significant central canal or foraminal narrowing. L5-S1: Mild disc space narrowing with spondylitic spurring, circumferential annular disc bulge and s evere facet arthrosis. Flattening of the ventral thecal sac without significant central canal stenosi s. [id number] bilateral foraminal narrowing. IMPRESSION: 1. Acute-appearing burst fracture at T12 redemonstrated with 6 mm retropulsion. There is flattening o f the ventral thecal sac at T11-T12 without significant central canal stenosis. 2. Multilevel discogenic degenerative changes with advanced facet arthrosis and ligamentum flavum thi ckening. 3. Mild central canal stenosis at L2-L3 and L3-L4. 4. Multilevel foraminal narrowing as above. The above report was generated using voice recognition software. It may contain grammatical, syntax o r spelling errors. Dictated: 11/14/2018 4:30 PM Transcribed: 11/14/2018 5:07 PM [employer] [id number] [email or web address] Electronically signed by: Bishnu Juarez M.D. 11/14/2018 5:18 PM
[2018-11-14] MEDS: TERAZOSIN HCL 1 MG CAP PO SCH (21:42)
[2018-11-15] MEDS ORDERED: Nursing to Pharmacy Communication ONE (01:06)
[2018-11-15] MEDS: INSULIN ASPART 100 UNITS/ML 3 ML PEN SC SCH ×5 (01:27→21:10)
[2018-11-15 06:32] LABS: Hematocrit (blood only) 36.8 % (37-47); Hemoglobin 12.4 g/dL (12.0-16.0); Mean Corpuscular Hgb Conc 33.7 g/dL (32-36); Mean Corpuscular Volume 102.8 fL (80-100); Mean Platelet Volume 8.2 fL (7.4-10.4); Platelet Count 112 K/uL (130-400); RDW Standard Deviation 48.4 fL (36.4-46.3); Red Blood Count 3.58 M/uL (4.2-5.4); White Blood Count 7.78 K/uL (4.8-10.8)
[2018-11-15 07:02] LABS: BUN Creatinine Ratio 18.3 (10-20); Calcium 9.3 mg/dl (8.5-10.1); Creatinine Clr Calc Pharmacy 84.4 ml/min; Est GFR (Non-African American) 78.5; Magnesium 1.8 mg/dl (1.8-2.4); Phosphorus 3.2 mg/dl (2.5-4.9); Potassium 4.1 mmol/L (3.5-5.1)
[2018-11-15] MEDS: OXYCODONE HCL IR 5 MG TAB (IMMEDIATE RELEASE) PO PRN ×2 (07:35→18:58)
[2018-11-15] MEDS: HydrALAZINE TAB 50 MG TAB PO SCH ×3 (07:36→20:00)
[2018-11-15] MEDS: GABAPENTIN 300 MG CAP PO SCH ×3 (07:36→20:00)
[2018-11-15] MEDS: FLUOXETINE HCL 20 MG CAP PO SCH (07:37)
[2018-11-15] MEDS: PANTOprazole 40 MG TAB PO SCH (07:37)
[2018-11-15] MEDS: predniSONE 5 MG TAB PO SCH (07:37)
[2018-11-15] MEDS: HYDROXYCHLOROQUINE SULFATE 200 MG TAB PO SCH ×2 (07:38→20:00)
[2018-11-15] MEDS: ASPIRIN 81 MG ECTAB PO SCH (07:38)
[2018-11-15] MEDS: FOLIC ACID 1 MG TAB PO SCH (07:38)
[2018-11-15] MEDS: ATORVASTATIN 40 MG TAB PO SCH (07:38)
[2018-11-15] MEDS: CARVEDILOL 6.25 MG TAB PO SCH ×2 (07:38→20:01)
[2018-11-15] MEDS: LIDOCAINE 5% 1 PATCH TD SCH (07:38)
--- NOTE | 2018-11-15 09:50 | Hospitalist Progress Note ---
Date of Service November 15, 2018 Assessment & Plan (1) Compression fracture of T12 vertebra: Pain is been present since fall in early October. s/p T12 kyphoplasty POD#0. Management per Dr. Street. (2) Hypomagnesemia: Repleted. This was possibly secondary to PPI and should be rechecked as outpatient under primary care provider nonurgently. (3) HTN (hypertension): Controlled, continue current antihypertensive regimen including Coreg 12.5 p.o. twice daily, hydralazine 50 mg p.o. 3 times daily, terazosin 2 mg p.o. nightly. (4) Diabetes mellitus type 2 in nonobese: Hemoglobin A1c reflects control at 7.4 and she is at goal in this hospitalization. Continue with insulin sliding scale coverage as ordered. Glycemic pharmacy consult as above. (5) Rheumatoid arthritis: Currently denies any flare. Continue Plaquenil 200 mg p.o. twice daily, methotrexate 15 mg every Wednesday, folic acid daily. Also continue prednisone 7.5 mg daily. This should be continued perioperatively and if patient is unable to tolerate p.o., hydrocortisone IV should be considered. (6) DVT prophylaxis: SCDs with DVT prophylaxis added per Ortho once cleared Full code Disposition-pending Ortho Spine recommendations Yoly Sin DO [facility] Hospitalist Subjective Doing well postoperatively. Not using pain medications, denies any pain. Tolerating p.o. Review of systems is otherwise negative. Of note the nurse contacted me regarding an uncovered snack of chicken noodle soup and crackers brought in by her granddaughter. As a result her sugar went up to 304. As the undersigned will not be here overnight or tomorrow to follow the result I have consulted the glycemic pharmacist. She was covered with 10 units of NovoLog subcutaneously and will recheck in 3 hours. Review of Systems 2 Review of Systems: All systems reviewed & are unremarkable except as noted in HPI & below Physical Exam Physical Exam: CONSTITUTIONAL: WNWD, vitals as above, generally well- appearing EYES: normal conjuctivae, no scleral icterus ENT: MMM RESPIRATORY: clear to auscultation bilaterally, no crackles, rales or wheezes, normal respiratory effort CARDIOVASCULAR: regular rate and rhythm, S1 and 2 heard without murmurs, gallops or rubs, no JVD, no peripheral edema, euvolemic CHEST: inspection of chest revealed a small pectus abnormality. GASTROINTESTINAL: normal bowel sounds, soft, nontender, nondistended MUSCULOSKELETAL: LE NVI SKIN: warm and dry NEUROLOGIC: CN 2-12 grossly intact, no sensory deficit, no gross focal deficits. Lower extremities are NVI PSYCHIATRIC: alert cooperative and oriented to person, place and time. Results & Data Vital Signs (Past 12 Hours) Vital Signs Temp Pulse Resp BP Pulse Ox 11/15/18 06:52 36.3 C L 63 16 188/84 H 98 11/14/18 23:54 178/70 H 11/14/18 22:45 36.3 C L 57 L 16 197/70 H 96 11/14/18 22:19 36.5 C 56 L 19 191/77 H 97 Laboratory Results Short CBC 11/15/18 Range/Units 06:16 WBC 7.78 (4.8-10.8) K/uL Hgb 12.4 (12.0-16.0) g/dL Hct 36.8 L (37-47) % Plt Count 112 L (130-400) K/uL BMP 11/15/18 06:16 Sodium 142 Potassium 4.1 Chloride 106 Carbon Dioxide 32 BUN 14 Creatinine 0.75 Glucose 142 H Calcium 9.3 Medications Administered Current Inpatient Medications Acetaminophen (Tylenol) 650 mg PO Q4H PRN PRN Reason: pain/fever Stop: 12/13/18 22:20 Last Admin: 11/14/18 18:13 Dose: 650 mg Documented by: Aspirin (Ecotrin Ectab) 81 mg PO DAILY [facility] Stop: 12/14/18 08:59 Last Admin: 11/15/18 07:38 Dose: 81 mg Documented by: Atorvastatin Calcium (Lipitor) 40 mg PO DAILY [facility] Stop: 12/14/18 08:59 Last Admin: 11/15/18 07:38 Dose: 40 mg Documented by: Carvedilol (Coreg) 12.5 mg PO BID [facility] Stop: 12/14/18 08:59 Last Admin: 11/15/18 07:38 Dose: 12.5 mg Documented by: Dextrose (Dextrose 50%) 25 - 50 ml IV UD PRN; Protocol PRN Reason: Hypoglycemia Protocol Stop: 12/13/18 22:44 Fluoxetine HCl (Prozac) 40 mg PO DAILY [facility] Stop: 12/14/18 08:59 Last Admin: 11/15/18 07:37 Dose: 40 mg Documented by: Folic Acid (Folvite) 1 mg PO DAILY [facility] Stop: 12/14/18 08:59 Last Admin: 11/15/18 07:38 Dose: 1 mg Documented by: Furosemide (Lasix) 20 mg PO DAILY PRN PRN Reason: Weight Gain Stop: 12/13/18 22:20 Gabapentin (Neurontin) 300 mg PO TID [facility] Stop: 12/14/18 08:59 Last Admin: 11/15/18 07:36 Dose: 300 mg Documented by: Glucagon (Glucagen) 1 mg SQ UD PRN; Protocol PRN Reason: Hypoglycemia Protocol Stop: 12/13/18 22:44 Glucose (Glucose 40%) 15 - 30 gm PO UD PRN; Protocol PRN Reason: Hypoglycemia Protocol Stop: 12/13/18 22:44 Glucose (Dex4 Glucose) 4 - 8 tabs PO UD PRN; Protocol PRN Reason: Hypoglycemia Protocol Stop: 12/13/18 22:44 Hydralazine HCl (Apresoline) 50 mg PO TID [facility] Stop: 12/14/18 08:59 Last Admin: 11/15/18 07:36 Dose: 50 mg Documented by: Hydromorphone HCl (Dilaudid) 0.5 mg IV Q4H PRN PRN Reason: Pain Stop: 11/27/18 22:20 Hydroxychloroquine Sulfate (Plaquenil) 200 mg PO BID [facility] Stop: 12/13/18 22:20 Last Admin: 11/15/18 07:38 Dose: 200 mg Documented by: Insulin Aspart (Novolog Flexpen) 0 units SC Q6 [facility] Stop: 12/15/18 01:14 Last Admin: 11/15/18 06:14 Dose: Not Given Documented by: Lidocaine (Lidoderm 5%) 2 patch TD QAM [facility] Stop: 12/14/18 10:14 Last Admin: 11/15/18 07:38 Dose: Not Given Documented by: Meclizine HCl (Antivert) 6.25 mg PO Q8 PRN PRN Reason: Dizziness Stop: 12/13/18 22:20 Methotrexate (Methotrexate) 15 mg PO We@0900 [facility] Stop: 12/16/18 08:59 Miscellaneous (Remove Lidoderm Patch) 1 ea N/A DAILY@2100 [facility] Stop: 12/13/18 20:59 Last Admin: 11/14/18 20:19 Dose: 1 ea Documented by: Miscellaneous (Carbohydrates For Hypoglycemia) 15 - 30 gm PO UD PRN PRN Reason: Hypoglycemia Treatment Stop: 12/13/18 22:44 Nitroglycerin (Nitrostat) 0.4 mg SL UD PRN PRN Reason: Chest Pain Stop: 12/13/18 23:01 Ondansetron HCl (Zofran) 4 mg IV Q6H PRN PRN Reason: Nausea Stop: 12/13/18 22:20 Oxycodone HCl (Roxicodone Immediate Rel) 5 mg PO Q6H PRN PRN Reason: Pain Stop: 11/27/18 22:20 Last Admin: 11/15/18 07:35 Dose: 5 mg Documented by: Pantoprazole Sodium (Protonix) 40 mg PO DAILY [facility] Stop: 12/14/18 08:59 Last Admin: 11/15/18 07:37 Dose: 40 mg Documented by: Polyethylene Glycol (Miralax Powder Packet) 17 gm PO DAILY PRN PRN Reason: Constipation Stop: 12/13/18 22:20 Prednisone (Prednisone) 7.5 mg PO DAILY [facility] Stop: 12/14/18 08:59 Last Admin: 11/15/18 07:37 Dose: 7.5 mg Documented by: Terazosin HCl (Hytrin) 2 mg PO HS [facility] Stop: 12/14/18 20:59 Last Admin: 11/14/18 21:42 Dose: 2 mg Documented by: Tizanidine HCl (Zanaflex) 2 mg PO TID PRN PRN Reason: Muscle Spasm Stop: 12/13/18 22:20 Last Admin: 11/14/18 08:14 Dose: 2 mg Documented by:
[2018-11-15] MEDS ORDERED: fentaNYL citrate 100 MCG/2 ML VIAL ONE ×2 (12:33→13:27)
--- NOTE | 2018-11-15 12:49 | History & Physical Bridge Note ---
Date of Service November 15, 2018 History & Physical Bridge Note I have examined the patient, reviewed the History & Physical and in the interval since the performance of the History & Physical I have noted the following changes of clinical significance: Plan for a T12 kyphoplasty with biopsy
[2018-11-15] MEDS ORDERED: CONRAY 60% 50 ML VIAL ONE (13:03)
[2018-11-15] MEDS ORDERED: BUPIVACAINE/EPINEPHRINE 0.5% MPF 1:200,000 30 ML VIAL ONE (13:03)
[2018-11-15] MEDS ORDERED: HYDROmorphone INJ 2 MG/ML SYR/VIAL ONE (13:27)
[2018-11-15] MEDS ORDERED: fentaNYL citrate 100 MCG/2 ML VIAL IV PRN (13:32)
[2018-11-15] MEDS ORDERED: ATROPINE SULFATE 0.1 MG/ML 10ML SYR IV PRN (13:32)
[2018-11-15] MEDS ORDERED: ONDANSETRON INJ 2 MG/ML 2 ML VIAL IV PRN ×2 (13:32→15:28)
[2018-11-15] MEDS ORDERED: ePHEDrine sulfate 50 MG/ML AMP IV PRN (13:32)
[2018-11-15] MEDS ORDERED: CEFAZOLIN 250 MG/ML 1 GM VIAL IM STA (13:41)
[2018-11-15] MEDS ORDERED: NEOSTIGMINE METHYLSULFATE 1 MG/ML 10ML VIAL ONE (14:12)
[2018-11-15] MEDS ORDERED: DEXAMETHASONE SOD INJ 4 MG/ML VIAL ONE (14:12)
[2018-11-15] MEDS ORDERED: ONDANSETRON INJ 2 MG/ML 2 ML VIAL ONE (14:12)
[2018-11-15] MEDS ORDERED: LIDOCAINE HCL 2% 2 ML VIAL/AMP(20MG/ML) INFIL ONE (14:12)
[2018-11-15] MEDS ORDERED: KETOROLAC 30 MG/ML VIAL ONE (14:12)
[2018-11-15] MEDS ORDERED: PROPOFOL IV EMULSION 10 MG/ML 20 ML VIAL IV ONE (14:12)
[2018-11-15] MEDS ORDERED: GLYCOPYRROLATE 0.2 MG/ML VIAL ONE (14:12)
[2018-11-15] MEDS ORDERED: ePHEDrine sulfate 50 MG/ML SYR ONE ×2 (14:12)
--- NOTE | 2018-11-15 14:12 | Operative Report ---
Post Operative Report Pre & Post Diagnosis Operation Date: 11/15/18 13:05 Pre-Op Diagnosis: Compression fracture of T12 vertebra Obesity Post-Op Diagnosis: Same Procedure Operation Date: 11/15/18 13:05 Actual Procedures #1 T12 kyphoplasty. #2 T12 biopsy. Surgeon Rashaad Street DO Center Rep None Estimated Blood Loss 10 Findings See Below Patient is 5 foot 8 inches tall and 107 kg with a BMI of 36. Patient's body habitus increase the technical difficulty of the procedure adding at least 25 to 35% increase in operative time. Specimens T12 biopsy Indications This is a 73-year-old female that presents with the above-mentioned diagnosis. After having a considerable pain and marked decline in activities of daily living elected to undergo the above-mentioned procedure. Description of Procedure Patient was met with identified and informed consent obtained. Patient was then taken to the operative suite underwent intubation and placed in a prone position on the Yan table with chest padded bolsters. The thoracolumbar spine was then prepped and draped in a normal sterile fashion. With the assistance of fluoroscopy identified the T12 vertebral body in AP and lateral planes. 2 incisions were then placed just lateral to the T12 pedicle. Into Kyphon working cannulas were placed by way of a transpedicular approach into the vertebral body. 2 core biopsies were then obtained. 2 Kyphon balloons were then inserted and inflated with fluoroscopic visualization. I subsequently injected approximately 4-1/2 cc of Kyphon bone cement with fluoroscopic visualization. This demonstrated excellent interdigitation of the bony fragments and fill of the vertebral body. Balloons and cannula were then removed. The small incisions were closed with subcutaneous Monocryl and sterile dressing placed. The patient was then awakened and taken to PACU in stable condition. I attest to the content of the Intraoperative Record and any orders documented therein. Any exceptions are noted below.
[2018-11-15] MEDS ORDERED: HydrALAZINE HCL 20 MG/ML VIAL ONE (14:19)
--- NOTE | 2018-11-15 14:34 | Fluoroscopy Report ---
FL thoracic spine 2V CLINICAL HISTORY: KYPHO T12 COMPARISON STUDY: Lumbar spine CT 11/04/2018. FLUOROSCOPY TIME: 3 minutes and 28 seconds. 2 fluoroscopic spot images. FINDINGS: Patient is status post kyphoplasty at T12 which demonstrates the majority of the cement wit hin the moderately compressed vertebral body. Small amount of cement extends to the disc basis. IMPRESSION: Fluoroscopy provided for T12 kyphoplasty. Electronically signed by: Shaun Abreu M.D. 11/15/2018 2:33 PM
--- NOTE | 2018-11-15 14:48 | Anesthesiology Progress Note ---
Date of Service November 15, 2018 Anesthesia Post Procedure Vital Signs Vital Signs: Temp Pulse Pulse Resp BP Pulse Ox 11/15/18 14:45 62 18 184/73 H 100 11/15/18 14:35 66 14 189/76 H 100 11/15/18 14:25 66 17 198/81 H 100 11/15/18 14:17 36.2 C L 64 16 230/95 H 96 11/15/18 12:24 36.6 C 58 L 20 180/74 H 96 11/15/18 06:52 36.3 C L 63 16 188/84 H 98 11/14/18 23:54 178/70 H 11/14/18 22:45 36.3 C L 57 L 16 197/70 H 96 11/14/18 22:19 36.5 C 56 L 19 191/77 H 97 11/14/18 21:40 184/80 H 11/14/18 21:33 56 L 197/77 H 11/14/18 20:14 56 L 133/59 L 11/14/18 16:32 36.4 C L 56 L 19 177/73 H 94 Pain Intensity Back: Pain Intensity: 0 Transfer of Care Handoff Completed per policy Notes Mental Status: alert / awake / arousable Patient Amnestic to Procedure: Yes Nausea / Vomiting: adequately controlled Pain: adequately controlled Airway Patency, RR, SpO2: stable & adequate BP & HR: stable & adequate Hydration State: stable & adequate Anesthetic Complications: no major complications apparent
[2018-11-15] MEDS ORDERED: DO NOT ADMINISTER FLU VACCINE PRN (15:28)
[2018-11-15] MEDS ORDERED: ACETAMINOPHEN 325 MG TAB PO PRN (15:28)
[2018-11-15] MEDS ORDERED: HYDROmorphone INJ 1 MG/ML SYRINGE IV PRN (15:28)
[2018-11-15] MEDS ORDERED: MAGNESIUM HYDROXIDE SUSP 30 ML UDC PO PRN (15:28)
[2018-11-15] MEDS ORDERED: DO NOT ADMINISTER PNEUMOCOCCAL VACCINE PRN (15:28)
[2018-11-15] MEDS ORDERED: PHARMACY GLYCEMIC MGMT CONSULT PRN (18:13)
[2018-11-15] MEDS ORDERED: INSULIN HUMAN NPH SC ONE (18:45)
[2018-11-15] MEDS: TERAZOSIN HCL 1 MG CAP PO SCH (20:02)
[2018-11-15] MEDS: DOCUSATE SODIUM 100 MG CAP PO SCH (20:03)
--- NOTE | 2018-11-15 20:16 | Pharmacy Report ---
Glycemic Control Consultation - Date of Service November 15, 2018 - Scope Scope: Glycemic Pharmacist consulted by Dr Sin on 11/15 for glycemic control and to write orders per [facility] inpatient glycemic control protocol - Objective Weight: 107.2 kg Accuchecks BSG (last 24hrs): 11/14/18 11/15/18 11/15/18 20:26 01:25 05:33 Glucose POC Glucose 202 H 116 H 126 H 11/15/18 11/15/18 11/15/18 06:16 12:01 14:20 Glucose 142 H POC Glucose 185 H 174 H 11/15/18 17:27 Glucose POC Glucose 304 H* Laboratory Data (last 24hrs): 11/15/18 06:16 Potassium 4.1 Carbon Dioxide 32 Anion Gap 4.0 Creatinine 0.75 Est Cr Clr Drug Dosing 84.4 HbA1c: 7.4 % (4.5-5.6) H 11/14/18 05:45 - Recent Pertinent Medications Outpatient Anti-diabetic Regimen: * Metformin 500 mg BID * A1c = 7.4 % 11/14/18 The patient is currently receiving: * Basal insulin: None * Correctional Insulin: Novolog Correction per scale ACHS Goal Range: Low 110 mg/dL - High 140 mg/dL Correction Factor: 30 mg/dL/unit * Prandial insulin: Per carb ratio of 1 unit per 12 grams CHO consumed * Oral Agents: None at this time Risk Factors for Insulin Resistance: * Steroids: Prednisone 7.5 mg daily (chronic med); in addition to this, received up to 12 mg of Decadron intraop today * Recent Surgery: POD 0 s/p T12 kyphoplasty * Diet: type 2 diabetes - Assessment & Plan Assessment & Plan: ASSESSMENT: * 73 y/o female admitted 11/13 for a compression fracture, now s/p kyphoplasty done today. She has a history of type 2 diabetes managed with metformin only as an outpatient. She is also on chronic prednisone for her RA. Other than fasting BSGs, remainder of BSGs have been above goal on just Novolog w/ correctional and prandial insulin ordered. Pharmacy has now been consulted due to a BSG of 304 mg/dL at dinner. After receiving the consult, the nurse informed me that this was after the patient ate some chicken noodle soup and crackers (brought from home) so the hospitalist instructed her to give 10 units of Novolog (to cover food and BSG) and then cover for CHO ate with meal here. BSG could certainly be increased from this; however, the intraop Decadron would most certainly be the culprit and I expect BSGs to continue to be elevated over the next 24-36 hours until this wears off. * Will plan to cover the Decadron with NPH (~0.4 units/kg) now and then 0.2 units/kg in the AM. I am electing to do this over Lantus to have a faster onset and to help with once daily prednisone as well. Novolog parameters will be tightened to weight based dosing using stress of 3. PLAN FOR INPATIENT GLYCEMIC CONTROL: * Continue to hold outpatient oral diabetes medications * Basal insulin * NPH 40 units x 1 now * NPH 20 units in the AM * Further dosing to be reassessed tomorrow * Bolus insulin - tighten CF/CR and add overnight checks * NovoLog per scale ACHS + 00, 04 * Goal Range: Low 110 mg/dL - High 140 mg/dL * Correction Factor: 15 mg/dL/unit * Nutritional / Prandial insulin per carb ratio of 1 unit per 5 grams CHO consumed Discharge Recommendations: * A1c indicates good outpatient glycemic control. Would recommend to continue metformin on discharge, monitoring closely if steroid dose would be increased. Thank you.
[2018-11-15] MEDS: SODIUM CHLORIDE 0.9% 1000ML 1,000 ML IV SCH (21:16)
[2018-11-15] MEDS: CEFAZOLIN 2000MG 2,000 MG/15 ML SYR IV SCH (21:17)
[2018-11-15] MEDS: ACETAMINOPHEN 325 MG TAB PO PRN (21:24)
[2018-11-16] MEDS: INSULIN ASPART 100 UNITS/ML 3 ML PEN SC SCH ×3 (00:51→08:43)
[2018-11-16] MEDS: OXYCODONE HCL IR 5 MG TAB (IMMEDIATE RELEASE) PO PRN ×2 (04:42→11:46)
[2018-11-16] MEDS: CEFAZOLIN 2000MG 2,000 MG/15 ML SYR IV SCH (06:13)
[2018-11-16 07:05] LABS: Hematocrit (blood only) 35.3 % (37-47); Hemoglobin 11.7 g/dL (12.0-16.0); Mean Corpuscular Hgb Conc 33.1 g/dL (32-36); Mean Corpuscular Volume 102.9 fL (80-100); Mean Platelet Volume 8.5 fL (7.4-10.4); Platelet Count 119 K/uL (130-400); RDW Coefficient of Variation 12.9 % (11.5-14.5); RDW Standard Deviation 47.9 fL (36.4-46.3); Red Blood Count 3.43 M/uL (4.2-5.4); White Blood Count 7.76 K/uL (4.8-10.8)
[2018-11-16 07:49] LABS: BUN Creatinine Ratio 16.2 (10-20); Calcium 8.8 mg/dl (8.5-10.1); Creatinine Clr Calc Pharmacy 78.1 ml/min; Est GFR (African American) 82.9; Est GFR (Non-African American) 71.5; Potassium 4.1 mmol/L (3.5-5.1)
[2018-11-16] MEDS: predniSONE 5 MG TAB PO SCH (08:21)
[2018-11-16] MEDS: PANTOprazole 40 MG TAB PO SCH (08:21)
[2018-11-16] MEDS: FLUOXETINE HCL 20 MG CAP PO SCH (08:21)
[2018-11-16] MEDS: GABAPENTIN 300 MG CAP PO SCH (08:22)
[2018-11-16] MEDS: ATORVASTATIN 40 MG TAB PO SCH (08:22)
[2018-11-16] MEDS: FOLIC ACID 1 MG TAB PO SCH (08:22)
[2018-11-16] MEDS: HYDROXYCHLOROQUINE SULFATE 200 MG TAB PO SCH (08:22)
[2018-11-16] MEDS: LIDOCAINE 5% 1 PATCH TD SCH (08:23)
[2018-11-16] MEDS: CARVEDILOL 6.25 MG TAB PO SCH (08:23)
[2018-11-16] MEDS: HydrALAZINE TAB 50 MG TAB PO SCH (08:23)
[2018-11-16] MEDS: DOCUSATE SODIUM 100 MG CAP PO SCH (08:23)
[2018-11-16] MEDS: ASPIRIN 81 MG ECTAB PO SCH (08:23)
[2018-11-16] MEDS ORDERED: metHOTREXate sodium 2.5 MG TAB PO SCH (09:00)
[2018-11-16] MEDS ORDERED: INSULIN HUMAN NPH SC SCH (09:00)
--- NOTE | 2018-11-16 09:03 | Anesthesiology Progress Note ---
Date of Service November 16, 2018 Anesthesia Post Procedure Vital Signs Vital Signs: Temp Pulse Pulse Resp BP Pulse Ox 11/16/18 07:45 36.4 C L 72 20 174/82 H 94 11/16/18 04:04 36.4 C L 73 16 156/107 H 93 11/15/18 23:06 36.8 C 72 16 135/72 94 11/15/18 19:56 69 169/83 H 11/15/18 18:27 37.0 C 75 19 146/70 H 96 11/15/18 17:30 36.3 C L 94 H 19 154/72 H 94 11/15/18 16:30 36.3 C L 66 19 164/75 H 99 11/15/18 15:58 36.4 C L 64 16 171/75 H 99 11/15/18 15:30 36.3 C L 61 16 164/74 H 99 11/15/18 15:05 36.5 C 65 16 172/74 H 99 11/15/18 14:55 36.5 C 62 16 182/71 H 100 11/15/18 14:45 62 18 184/73 H 100 11/15/18 14:35 66 14 189/76 H 100 11/15/18 14:25 66 17 198/81 H 100 11/15/18 14:17 36.2 C L 64 16 230/95 H 96 11/15/18 12:24 36.6 C 58 L 20 180/74 H 96 Pain Intensity Back: Pain Intensity: 8 Notes Mental Status: alert / awake / arousable and participated in evaluation Patient Amnestic to Procedure: Yes Nausea / Vomiting: adequately controlled Pain: adequately controlled Airway Patency, RR, SpO2: stable & adequate BP & HR: stable & adequate Hydration State: stable & adequate Anesthetic Complications: no major complications apparent and Pt Satisfied with anesthetic care
[2018-11-16] MEDS: SODIUM CHLORIDE 0.9% 1000ML 1,000 ML IV SCH (09:24)
--- NOTE | 2018-11-16 11:23 | Hospitalist Progress Note ---
Date of Service November 16, 2018 Assessment & Plan (1) Compression fracture of T12 vertebra: Reports back pain Pain since fall in October. A/P T12 kyphoplasty POD#1 Pain is controlled Activity/wound Care as per Dr. Street Needs follow up upon discharge (2) Hypomagnesemia: Replaced supplements Resolved (3) HTN (hypertension): Stable continue Coreg, hydralazine, terazosin Monitor (4) Diabetes mellitus type 2 in nonobese: Hemoglobin A1c: 7.4 Continue with insulin sliding scale Glycemic pharmacy consult (5) Rheumatoid arthritis: Currently denies any symptoms Continue Plaquenil, Methotrexate, prednisone (6) DVT prophylaxis: SCDs Code Status Full code Subjective Patient is seen and examined at bedside Back pain at surgical site is controlled Denies any chest pain, shortness of breath, dizziness, nausea Family at bedside Offers no other complaints. Review of Systems Review of Systems: All systems reviewed & are unremarkable except as noted in HPI & below Physical Exam Physical Exam: Physical Exam: Vitals signs as noted above General Appearance:Moderately built and nourished, no apparent distress Head: normocephalic, Atraumatic Eyes: normal inspection, EOMI Neck: supple, Trachea midline Respiratory/Chest: Normal breath sounds, CTA, No accessory muscle use Cardiovascular: S1, S2, +murmur Abdomen/GI:Soft, Non tender, Bowel sounds present Back: Surgical site in dressing Extremities/Musculoskelatal:normal inspection, no edema Neurologic/Psych:AAOX3, grossly no focal neurological deficits Skin: normal color, warm Results & Data Vital Signs (Past 12 Hours) Vital Signs Temp Pulse Pulse Resp BP Pulse Ox 11/16/18 07:45 36.4 C L 72 20 174/82 H 94 11/16/18 04:04 36.4 C L 73 16 156/107 H 93 Laboratory Results Short CBC 11/16/18 Range/Units 06:32 WBC 7.76 (4.8-10.8) K/uL Hgb 11.7 L (12.0-16.0) g/dL Hct 35.3 L (37-47) % Plt Count 119 L (130-400) K/uL BMP 11/16/18 06:32 Sodium 137 Potassium 4.1 Chloride 103 Carbon Dioxide 29 BUN 13 Creatinine 0.81 Glucose 130 H Calcium 8.8
--- NOTE | 2018-11-16 11:31 | Pharmacy Report ---
Pharmacy Glycemic Short Note 2 - Date of Service November 16, 2018 - Glycemic Short BSG Results (Last 24 hours): 11/15/18 11/15/18 11/15/18 12:01 14:20 17:27 Glucose POC Glucose 185 H 174 H 304 H* 11/15/18 11/16/18 11/16/18 20:19 00:00 04:00 Glucose POC Glucose 220 H 148 H 124 H 11/16/18 11/16/18 06:32 08:22 Glucose 130 H POC Glucose 145 H OUTPATIENT ANTIDIABETIC REGIMEN: * Metformin 500mg PO BIDM ASSESSMENT: * 73yo T2DM female with adequate outpatient control per recent A1c * Pt is maintained on oral antidiabetic agents as an outpatient * Oral agents are not recommended for inpatient use d/t drug interactions, changing PO intake, and difficulty titrating for acute hyper/hypoglycemia. ADA recommends re-initiating outpatient oral agents 1-2 days prior to discharge if/when appropriate if they were held on admission. * Will hold oral agents for admission and utilize SQ basal bolus insulin regimen which is the recommended regimen for inpatient glycemic control. * Will initiate weight based insulin dosing for insulin ulysses patient and titrate based on BSG trends. * Start with 0.4 units/kg of NPH for high dose steroids (DXM 12mg IV) given intraop on POD#1 * Taper to 0.2 units/kg of NPH POD#1 as the hyperglycemic effects of DXM subside * Will re-assess the need for basal insulin POD#2. May be able to resume outpatient metformin instead of basal insulin PLAN FOR INPATIENT GLYCEMIC CONTROL: * Hold outpatient oral diabetes medications * Basal insulin * NPH 20 units SQ x 1 dose this morning (POD#1) * Bolus insulin * NovoLog per scale ACHS or Q6hrs while NPO * Goal Range: Low 110 mg/dL - High 140 mg/dL * Correction Factor: 20 mg/dL/unit * Nutritional / Prandial insulin per carb ratio of 1 unit per 7 grams CHO consumed PLAN FOR DISCHARGE: * No changes needed to outpatient regimen. * A1c is in goal range at 7.4% on 11/14/18.
--- NOTE | 2018-11-16 13:53 | Orthopedic Progress Note ---
Date of Service November 16, 2018 Assessment & Plan (1) Compression fracture of T12 vertebra: This time patient is responded appropriately to the kyphoplasty is quite comfortable. We will allow her to discharge home when okay with medicine. Present on Admission?: Yes Subjective Patient's back pain is markedly improved. She denies any leg symptoms. Physical Exam Physical Exam: Patient is good strength testing sitting the chair appears comfortable. Results & Data Vital Signs (Past 12 Hours) Vital Signs Temp Pulse Pulse Pulse Resp BP Pulse Ox 11/16/18 12:07 36.8 C 64 73 58 L 20 151/81 H 97 11/16/18 11:50 36.8 C 64 20 151/81 H 97 11/16/18 07:45 36.4 C L 72 20 174/82 H 94 11/16/18 04:04 36.4 C L 73 16 156/107 H 93
--- NOTE | 2018-11-16 15:40 | Discharge Summary ---
Date of Service November 16, 2018 Admission HPI Per Admitting Provider CHIEF COMPLAINT: Back pain. HISTORY OF PRESENT ILLNESS: This is a 73-year-old female with past medical history significant for type 2 diabetes, hyperlipidemia, diabetic peripheral angiopathy, mild sleep apnea, peripheral vascular disease, history of MS, history of hypertension, irritable bowel syndrome, GERD, rheumatoid arthritis, iron deficiency anemia presents with severe back pain. The patient apparently fell on 10/28/2018 at home while she was moving a chair, felled backwards and she was able to get up but had severe pain. She thought it will go away, but it did not and she went to family doctor and x-rays were done which were unremarkable, but the pain was not getting better, so she came to the ER on 11/04/2018 and the CAT scan done in the ER showed T12 burst fracture. She was discharged home on pain medications to follow with Orthopedics and she saw Dr. Street last and advised to see her in 2 weeks and plan for MRI of the back and advised her to go to the ER if the pain does not improve or gets worse. Patient says she is having difficulty ambulating because of severe back pain and she could not sleep in the night, so she came here. Her hemodynamics are stable. No complaints except the back pain. Denies any chest pain, no shortness of breath, no cough, no fever, no chills, no headache, no dizziness, no blurred vision, no runny nose, no sore throat, no difficulty swallowing. Appetite is okay. No nausea, no abdominal pain. Normal bowel and bladder movements. No hematuria, no burning micturition, no black stools or blood in the stools, no rash is seen. No lower extremity edema. The patient says she also fell in September and hit her head and she saw her family doctor because she had lot of bruises on the face and she followed with ENT and found to have broken nasal bone which was treated but right now all the bruises are resolved. Admission Exam Per Admitting Provider PHYSICAL EXAMINATION: GENERAL: The patient is of moderate build, not in acute distress. VITAL SIGNS: Temperature 36.8, pulse 58, respiratory rate 20, blood pressure 197/85, oxygen 97% room air. HEENT: No pallor, no icterus. Pupils equal, round, and reactive to light. NECK: No JVD, no neck masses, no carotid bruits. CARDIOVASCULAR: S1, S2 heard, regular rate and rhythm, no murmur, no gallop. RESPIRATORY SYSTEM: Normal AP diameter. No accessory muscle use. No wheezing, no crackles. ABDOMEN: Soft, bowel sounds present. Nontender. No distention. CENTRAL NERVOUS SYSTEM: Cranial nerves II-XII grossly intact, nonfocal. MUSCULOSKELETAL: Lower thoracic spine, mild tenderness. Straight leg test negative. EXTREMITIES: No edema, no erythema. Principal Diagnosis Discharge Information Discharge Diagnosis T 12 compression fracture Discharge Goals Improve function Discharge Activity Limitations As commented below Discharge Data Allergies Allergy/AdvReac Type Severity Reaction Status Date / Time nadolol AdvReac Unknown GI UPSET Verified 11/13/18 19:33 nitroglycerin AdvReac Unknown HEADACHE Verified 11/13/18 19:33 NSAIDS (Non-Steroidal AdvReac Unknown GI UPSET Verified 11/13/18 19:33 Anti-Inflamma Consultations 11/13/18 19:29 ED Decision to Admit Stat 11/13/18 22:21 Consult Case Management - Discharge Planning Routine 11/14/18 08:00 Consult Orthopedic Surgery Routine Procedures Performed Operation Date: 11/15/18 13:05 Actual Procedures p T12 Kyphoplasty with biopsies - Rashaad Street, DO Lumbar MRI: 1. Acute-appearing burst fracture at T12 redemonstrated with 6 mm retropulsion. There is flattening of the ventral thecal sac at T11-T12 without significant central canal stenosis. 2. Multilevel discogenic degenerative changes with advanced facet arthrosis and ligamentum flavum thickening. 3. Mild central canal stenosis at L2-L3 and L3-L4. 4. Multilevel foraminal narrowing as above. Ordered Studies 11/14/18 11:25 MR lumbar spine wo con Urgent 11/15/18 13:05 FL fluoroscopy <1hr Routine FL thoracic spine 2V Routine Hospital Course (1) Compression fracture of T12 vertebra: Reports back pain Pain since fall in October. A/P T12 kyphoplasty POD#1 Pain is controlled Activity/wound Care as per Dr. Street Needs follow up upon discharge (2) Hypomagnesemia: Replaced supplements Resolved (3) HTN (hypertension): Stable continue Coreg, hydralazine, terazosin Monitor (4) Diabetes mellitus type 2 in nonobese: Hemoglobin A1c: 7.4 Continue with insulin sliding scale Glycemic pharmacy consult (5) Rheumatoid arthritis: Currently denies any symptoms Continue Plaquenil, Methotrexate, prednisone (6) DVT prophylaxis: SCDs Code Status Full code Total Time Total Time Spent Total Time Spent (In Minutes): 36 minutes Total Time Includes: Examination of the Patient, Discharge Planning, Medication Reconciliation, Communication With Other Providers and Other Discharge Plan Discharge Items Patient Disposition: Home - Self-Care Reason For Visit: SEVERE BACK PAIN Discharge Diagnosis: T 12 compression fracture Condition: Fair Discharge Goals: Improve function Activity: As commented below Lifting: No more than 10 pounds Bathing: May shower/bathe in 3 days Non-emergency contact: Primary Care Provider and Surgeon Call non-emergency contact if: you have any medication questions, your symptoms worsen, your pain is not controlled, your pain is worsening, your pain is unusual for you, your pain is concerning for you, you have a fever, your wound has increased redness, your wound has increased drainage and your wound pain has increased Follow-up/Referrals: Derrek Sparks MD [Primary Care Provider] - Diet: Carb Consistent or DM2 and Heart Healthy Addtl Provider Instructions: Follow up with for Primary Care on November 17, 2018 at 10:05Am Follow up with in 2 weeks in office Seek immediate medical attention if your symptoms reoccur or worsen Prescriptions: Continued fluoxetine 40 mg Capsule 40 mg PO DAILY RF: 0 atorvastatin 40 mg Tablet 40 mg PO DAILY RF: 0 metformin 500 mg Tablet 500 mg PO BID RF: 0 carvedilol 6.25 mg Tablet 12.5 mg PO BID RF: 0 nitroglycerin 400 mcg/spray Aerosol,[place] 1 dose Translingual DIRECTED PRN (Reason: Chest Pain) RF: 0 meclizine 12.5 mg Tablet 0.5 mg PO Q8 PRN (Reason: Dizziness) RF: 0 aspirin [Aspirin Low Dose] 81 mg Tablet,Delayed Release (Dr/Ec) 81 mg PO DAILY RF: 0 methotrexate sodium 2.5 mg tablet 7.5 mg PO WK RF: 0 terazosin 2 mg Capsule 2 mg PO HS RF: 0 pantoprazole 40 mg tablet,delayed release (DR/EC) 40 mg PO DAILY RF: 0 gabapentin 300 mg Capsule 300 mg PO TID RF: 0 folic acid 1 mg tablet 1 mg PO DAILY RF: 0 hydralazine 50 mg Tablet 50 mg PO TID RF: 0 furosemide [Lasix] 20 mg Tablet 20 mg PO DAILY PRN (Reason: Weight Gain) RF: 0 hydroxychloroquine 200 mg tablet 200 mg PO BID RF: 0 prednisone 5 mg Tablet 7.5 mg PO DAILY RF: 0 Stand-Alone Forms: [facility]/Other Patient Handouts: DVT Prevent Discharge Orders: Discharge Order (Routine); Ordered 11/16/18 Ordered By: Rashaad Street Admission Data Admit Date/Time: 11/13/18 21:16 Attending Provider: Sergio Hermosillo Admit Provider: Blaze Hutchins Primary Care Provider: Derrek Sparks Other Providers: Blaze Hutchins ; Rashaad Street ; Yoly Sin Service: Surgical Services Other Interventions: Discharge Summary Assessment (RN) Last Done: 11/16/18 12:07 Pending Studies at Discharge: No DC Date/Time DO NOT enter until pt leaves facility: 11/16/18 12:28
== END 2018-11-16 12:28 | disposition home or self-care (01) | DRG 479 ==
LOC: ED 15:39 → SUATTDRO 21:16 → 3N 21:16

== ENCOUNTER 2020-01-15 06:10 | Inpatient (IN) ==
--- NOTE | 2019-12-28 15:51 | PAT Medication Instructions ---
Medication Instructions Date of Service December 28, 2019 Home Medications Medication Instructions Recorded meclizine 12.5 mg tablet 0.5 mg PO Q8 PRN #30 tab 09/26/19 aspirin [Aspirin Low Dose] 81 mg PO QAM atorvastatin 40 mg PO HS carvedilol 12.5 mg PO BID fluoxetine [Prozac] 40 mg PO QAM furosemide [Lasix] 20 mg PO DAILY PRN gabapentin 300 mg PO TID hydralazine 50 mg PO TID hydroxychloroquine 200 mg PO BID metformin 500 mg PO BID nitroglycerin 1 dose TRANSLINGUAL DIRECTED PRN pantoprazole 40 mg PO QAM terazosin 2 mg PO HS amlodipine 5 mg PO QAM betamethasone dipropionate 1 applic TOPICAL BID PRN acetaminophen [Tylenol Extra Strength] 1,000 mg PO Q6H PRN levothyroxine 25 mcg PO QAM meclizine 12.5 mg tablet 0.5 mg PO Q8 PRN Continue as directed nitroglycerin 1 dose TRANSLINGUAL DIRECTED PRN (if needed) ASK your prescriber and surgeon aspirin [Aspirin Low Dose] 81 mg PO QAM hydroxychloroquine 200 mg PO BID STOP taking 24 hours before surgery betamethasone dipropionate 1 applic TOPICAL BID PRN DO NOT take the morning of surgery furosemide [Lasix] 20 mg PO DAILY PRN metformin 500 mg PO BID Take morning of surgery With a small sip of water, OTHERWISE NOTHING TO EAT OR DRINK AFTER MIDNIGHT: carvedilol 12.5 mg PO BID fluoxetine [Prozac] 40 mg PO QAM gabapentin 300 mg PO TID hydralazine 50 mg PO TID pantoprazole 40 mg PO QAM amlodipine 5 mg PO QAM acetaminophen [Tylenol Extra Strength] 1,000 mg PO Q6H PRN (okay to take up to 4 hours prior to surgery if needed) levothyroxine 25 mcg PO QAM meclizine 12.5 mg tablet 0.5 mg PO Q8 PRN (if needed) Take evening before surgery atorvastatin 40 mg PO HS carvedilol 12.5 mg PO BID furosemide [Lasix] 20 mg PO DAILY PRN (if needed) gabapentin 300 mg PO TID hydralazine 50 mg PO TID metformin 500 mg PO BID terazosin 2 mg PO HS acetaminophen [Tylenol Extra Strength] 1,000 mg PO Q6H PRN (if needed) meclizine 12.5 mg tablet 0.5 mg PO Q8 PRN (if needed) Other Notes If you have any questions please call us at [phone] or [phone] or [phone] or [phone]
--- NOTE | 2020-01-04 15:39 | Anesthesiology Consultation ---
Date of Service January 04, 2020 Assessment & Plan (1) Encounter for pre-operative examination: Per nursing phone assessment on 12/27: Travel screen negative. No known COVID-19 positive contacts. No current COVID-19 related symptoms. No hx of COVID-19 testing in past 30 days. - S/P T12 kyphoplasty: 11/16/18: Grade view 1, MAC#3, ETT 7.0 at [facility] - PCP office visit: 01/03/20: "There is no medical contraindication for the proposed surgery and anesthesia.. mild/moderate risk. She is aware of risk of surgery but wants to proceed as this is now a quality of life issue for her." - Cardiology office visit: 12/18/19: "Stable cardiac signs and symptoms.. Complex vascular history.. Although she does have peripheral arterial disease, her symptoms at present include debilitating low back pain. She has had ongoing symptoms despite conservative therapy.. She has a mild to moderately increased risk of perioperative cardiac complication. She is however willing to accept this risk.. I do not think any additional cardiac testing will help lower her risk of present." Chart Review Chart Review: Acceptable Risk for Surgery (pending evaluation AM DOS) and Patient NOT seen in Pre Admission Testing History Surgery Operation Date: 01/15/20 07:45 Proposed Procedures p L3-S1 Decompression and Fusion, Spinal Cord Monitoring - Rashaad Street, Height/Weight Height: 5 ft 10 in Weight: 109.316 kg Allergies Allergy/AdvReac Type Severity Reaction Status Date / Time nadolol AdvReac Unknown GI UPSET Verified 01/15/20 06:39 nitroglycerin AdvReac Unknown HEADACHE Verified 01/15/20 06:39 NSAIDS (Non-Steroidal AdvReac Unknown GI UPSET Verified 01/15/20 06:39 Anti-Inflamma Medications Home Medications Medication Instructions Recorded Confirmed Last Taken aspirin [Aspirin Low Dose] 81 mg PO QAM 04/02/18 01/15/20 01/08/20 atorvastatin 40 mg PO HS 04/02/18 01/15/20 01/14/20 20:00 carvedilol 12.5 mg PO BID 04/02/18 01/15/20 01/15/20 05:30 fluoxetine [Prozac] 40 mg PO QAM 04/02/18 01/15/20 01/14/20 08:00 furosemide [Lasix] 20 mg PO DAILY PRN 04/02/18 01/15/20 09/06/18 gabapentin 300 mg PO TID 04/02/18 01/15/20 01/15/20 05:30 hydralazine 50 mg PO TID 04/02/18 01/15/20 01/15/20 05:30 hydroxychloroquine 200 mg PO BID 04/02/18 01/15/20 01/15/20 05:30 metformin 500 mg PO BID 04/02/18 01/15/20 01/14/20 08:00 nitroglycerin 1 dose TRANSLINGUAL DIRECTED PRN 04/02/18 01/15/20 Unknown pantoprazole 40 mg PO QAM 04/02/18 01/15/20 01/15/20 05:30 terazosin 2 mg PO HS 04/02/18 01/15/20 01/14/20 20:00 amlodipine 5 mg PO QAM 03/29/19 01/15/20 01/15/20 05:30 betamethasone dipropionate 1 applic TOPICAL BID PRN 03/29/19 01/15/20 01/14/20 07:00 acetaminophen [Tylenol Extra 1,000 mg PO Q6H PRN 09/08/19 01/15/20 01/14/20 20:00 Strength] levothyroxine 25 mcg PO QAM 09/08/19 01/15/20 01/15/20 05:30 meclizine 12.5 mg tablet 0.5 mg PO Q8 PRN #30 tab 09/26/19 01/15/20 Unknown Active Medications Generic Name Dose Route Start Last Admin Trade Name Freq PRN Reason Stop Dose Admin Acetaminophen 1,000 mg 01/15/20 06:00 01/15/20 07:02 Tylenol PO 01/15/20 18:00 1,000 mg PREOP DIAMOND Administration Celecoxib 200 mg 01/15/20 06:00 01/15/20 07:03 Celebrex PO 01/15/20 18:00 200 mg PREOP DIAMOND Administration Gabapentin 300 mg 01/15/20 06:00 01/15/20 07:08 Neurontin PO 01/15/20 18:00 Not Given PREOP DIAMOND Lactated Ringer's 1,000 mls @ 15 mls/hr 01/15/20 06:00 07/20/20 06:50 Lr IV 01/16/20 05:59 15 mls/hr .Q24H DIAMOND Administration Past Family History Family History Daughter Family history of reaction to anesthesia SLOW TO WAKE UP Mother Family history of diabetes mellitus Other Diabetes Heart disease Hypertension Social History Smoking Status: Former smoker Do You Dip or Chew Tobacco: No Smoking End Date: QUIT 1991 Hx Alcohol Use: No alcohol intake frequency: holidays/special occasions only Hx Substance Use: No substance use type: does not use Physical Exam Vital Signs Last Vital Signs Temp 36.8 C 01/15/20 06:29 Pulse 75 01/15/20 06:29 Resp 18 01/15/20 06:29 BP 217/97 H 01/15/20 07:20 Pulse Ox 97 01/15/20 06:29 Testing Laboratory Results 01/15/20 06:27 POC Glucose 151 H 01/03/20 WBC 6.86 H/H 11.4/31.3 PLATELETS 137 SODIUM 139 POTASSIUM 4.1 CHLORIDE 100 CO2 26 BUN 18 CREATININE 0.8 GLUCOSE 124 HGBA1C 6.4% PT 13.6 INR 1.04 Electrocardiogram Date: 12/18/19 Findings: + NSR @ (62) Chest X-Ray Date: 05/22/19 Thoracic kyphoplasty. Reversed right shoulder arthroplasty. Clear lungs. Echocardiogram Date: 11/02/18 EF 70%. No RWMA. Mild cLVH. Grade I DD. Moderate AV sclerosis. Mild TR. Stress Test Date: 05/14/17 Type: nuclear Lexiscan nuclear cardiac stress test positive for reversible ischemia (involving the posterior lateral wall). LVEF >70%. 64% MPHR. 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 Cardiac Catheterization Date: 05/26/17 Non-obstructive CAD. Other Testing Aorta-Iliac Arterial Duplex Evaluation: 12/25/19: diffuse, moderate to severe calcific sclerosis throughout the aorto-iliac system. 50-74% mid to distal adominal aorta, right and left ostial SUNNY. No evidence of aorto-iliac aneurysm.
[~2020-01-15 06:10] MED LIST changes: +ACETAMINOPHEN 500 MG TAB PO SCH; -ASPCH81X PO; -CARV12.52 PO; +CEFAZOLIN 1000MG 1,000 MG/7.5 ML SYR IV SCH; +CEFAZOLIN 2000MG 2,000 MG/15 ML SYR IV SCH; +CeleBREX 200 MG CAP PO SCH; -FLUO40CA8 PO; -FURO20TA PO; -GABA-1218 PO; +GABAPENTIN 300 MG CAP PO SCH; -GLC/500 PO; -HYDR-4717 PO; -HYDR200T5 PO; -HYT/2 PO; -IRON5TAB PO; -LPT/40 PO; +LR 15ML/HR IV SCH; -MECL1TAB40 PO; -NITR0.1S UT; -NRV5 PO; -PANT40TA PO
[2020-01-15] MEDS ORDERED: ONDANSETRON INJ 2 MG/ML 2 ML VIAL ONE (06:58)
[2020-01-15] MEDS ORDERED: PROPOFOL IV EMULSION 10 MG/ML 20 ML VIAL IV ONE (06:58)
[2020-01-15] MEDS ORDERED: fentaNYL citrate 100 MCG/2 ML VIAL ONE ×2 (06:58→08:30)
[2020-01-15] MEDS ORDERED: MIDAZOLAM HCL 1 MG/ML 2ML VIAL ONE (06:58)
[2020-01-15] MEDS ORDERED: LIDOCAINE HCL 2% 2 ML VIAL/AMP(20MG/ML) INFIL ONE (06:58)
[2020-01-15] MEDS ORDERED: ROCURONIUM BROMIDE 10 MG/ML 5 ML VIAL IV ONE (06:58)
[2020-01-15] MEDS ORDERED: DEXAMETHASONE SOD INJ 4 MG/ML VIAL ONE (06:58)
[2020-01-15] MEDS ORDERED: BACITRACIN INJ 50,000 UNIT VIAL ONE (06:59)
[2020-01-15] MEDS ORDERED: BUPIVACAINE/EPINEPHRINE 0.25% 1:200,000 30 ML VIAL ONE (06:59)
[2020-01-15] MEDS ORDERED: ePHEDrine sulfate 50 MG/ML AMP IV PRN (07:35)
[2020-01-15] MEDS ORDERED: PROMETHAZINE HCL 12.5 MG in SODIUM CHLORIDE 0.9% 50 ML IV PRN ×2 (07:35→12:38)
[2020-01-15] MEDS ORDERED: ATROPINE SULFATE 0.1 MG/ML 10ML SYR IV PRN (07:35)
[2020-01-15] MEDS ORDERED: ONDANSETRON INJ 2 MG/ML 2 ML VIAL IV PRN ×2 (07:35→12:38)
--- NOTE | 2020-01-15 07:36 | History & Physical Bridge Note ---
Date of Service January 15, 2020 History & Physical Bridge Note I have examined the patient, reviewed the History & Physical and in the interval since the performance of the History & Physical I have noted the following changes of clinical significance: no changes noted
--- NOTE | 2020-01-15 07:37 | History & Physical Report ---
Date of Service January 15, 2020 Assessment & Plan (1) Neurogenic claudication due to lumbar spinal stenosis: L3-S1 decompression fusion Present on Admission?: Yes History of Present Illness Chief Complaint: Back and bilateral leg pain Primary Care Provider: Derrek Sparks MD This is a 74-year-old female presents with chronic persistent back and bilateral leg pain. After an extensive course of nonoperative care is here for surgical invention. Allergies Allergy/AdvReac Type Severity Reaction Status Date / Time nadolol AdvReac Unknown GI UPSET Verified 01/15/20 06:39 nitroglycerin AdvReac Unknown HEADACHE Verified 01/15/20 06:39 NSAIDS (Non-Steroidal AdvReac Unknown GI UPSET Verified 01/15/20 06:39 Anti-Inflamma Home Medications Home Medications Medication Instructions Recorded Confirmed Type aspirin [Aspirin Low Dose] 81 mg PO QAM 04/02/18 01/15/20 History atorvastatin 40 mg PO HS 04/02/18 01/15/20 History carvedilol 12.5 mg PO BID 04/02/18 01/15/20 History fluoxetine [Prozac] 40 mg PO QAM 04/02/18 01/15/20 History furosemide [Lasix] 20 mg PO DAILY PRN 04/02/18 01/15/20 History gabapentin 300 mg PO TID 04/02/18 01/15/20 History hydralazine 50 mg PO TID 04/02/18 01/15/20 History hydroxychloroquine 200 mg PO BID 04/02/18 01/15/20 History metformin 500 mg PO BID 04/02/18 01/15/20 History nitroglycerin 1 dose TRANSLINGUAL DIRECTED PRN 04/02/18 01/15/20 History pantoprazole 40 mg PO QAM 04/02/18 01/15/20 History terazosin 2 mg PO HS 04/02/18 01/15/20 History amlodipine 5 mg PO QAM 03/29/19 01/15/20 History betamethasone dipropionate 1 applic TOPICAL BID PRN 03/29/19 01/15/20 History acetaminophen [Tylenol Extra 1,000 mg PO Q6H PRN 09/08/19 01/15/20 History Strength] levothyroxine 25 mcg PO QAM 09/08/19 01/15/20 History meclizine 12.5 mg tablet 0.5 mg PO Q8 PRN #30 tab 09/26/19 01/15/20 Rx Past Med/Surg History Family History Daughter Family history of reaction to anesthesia SLOW TO WAKE UP Mother Family history of diabetes mellitus Other Diabetes Heart disease Hypertension Social History Preferred Language: Armenian Communication Ability: Effective Visual Impairment: No Limitations Hearing Ability: Normal Director Game Required: No Beliefs That Will Affect Care: None marital status: Current Living Situation: Spouse and Family current occupational status: retired Other Information That Helps Us Care for You: No Feels Safe at Home: Yes Safety Concerns: Feels Safe At This Time Smoking Status: Former smoker Do You Dip or Chew Tobacco: No ; Smoking End Date: QUIT 1991 ; Second Hand Exposure: No ; Tobacco Cessation Education Requested by Patient: No Hx Alcohol Use: No Hx Substance Use: No Physical Exam Physical Exam: Patient is alert and oriented neurologically intact. Heart regular rate and rhythm. Lungs clear to auscultation. Results & Data Vital Signs (Past 12 Hours) Vital Signs Temp Pulse Resp BP Pulse Ox 01/15/20 07:20 217/97 H 01/15/20 06:29 36.8 C 75 18 203/109 H 97
[2020-01-15] MEDS ORDERED: MoRPHine SULFATE 2 MG/ML CARP ONE (08:30)
[2020-01-15] MEDS ORDERED: FLOSEAL HEMOSTATIC MATRIX 10ML TOP ONE (08:34)
[2020-01-15] MEDS ORDERED: NEOSTIGMINE METHYLSULFATE 1 MG/ML 10ML VIAL ONE (08:41)
[2020-01-15] MEDS ORDERED: GLYCOPYRROLATE 0.2 MG/ML VIAL ONE (08:41)
--- NOTE | 2020-01-15 10:41 | Operative Report ---
Post Operative Report Pre & Post Diagnosis Operation Date: 01/15/20 07:45 Pre-Op Diagnosis: Spondylolisthesis, Lumbar Region Lumbar spinal stenosis with neurogenic claudication Obesity Post-Op Diagnosis: Same I identified the patient and participated in the time-out.: Yes Procedure Operation Date: 01/15/20 07:45 Actual Procedures #1 lumbar decompression with bilateral medial facetectomies and foraminotomies L2-3, L3-4, L4-5 and L5-S1. #2 posterior spinal fusion L2-S1. #3 placed a posterior segmental instrumentation L2-S1. #4 interbody fusion L3-4, L4-5 and L5-S1. #5 placement peek cage 12 x 22 mm at L3-4, 12 x 22 mm at L4-5, 13 x 26 mm at L5-S1. #6 placement of locally harvested morselized autograft in the posterior lateral gutters. #7 placement infuse collagen sponge, master graft in the posterior lateral gutters and ostial amp and interbody space. Surgeon Rashaad Street, DO Piece Meat Trimmer Yina Brown Estimated Blood Loss 400 Findings See Below The patient is 5 foot 10 inches tall weighing over 106 kg with a BMI in excess of 33. Patient's body habitus did add increased technical difficulty requiring her deepest retractors and longest instruments in order to perform her procedure. She will require additional postoperative care. This did at least 50% increase to the operative time. Specimens None Indications This is a 74-year-old female who presents above-mentioned diagnosis after failing extensive course of nonoperative care is here for the above-mentioned procedure. Description of Procedure Patient was met with identified informed consent obtained. Patient was then taken to the operative suite underwent intubation placed in a prone position the Yan table on top of the Erik frame. All bony prominences well-padded eyes inspected to ensure no external pressure placed upon the. This point the lumbar spine was prepped and draped in a sterile fashion. Sharp dissection with the assistance of Bovie cautery was performed down to and exposing the lamina and transverse processes of L to L3-L4-L5 and sacral ala bilaterally. From a caudal cephalad fashion complete laminectomy of L5 L4 L3 and L2 was performed including bilateral medial facetectomies and foraminotomies addressing severe spinal stenosis. Pedicle screws were then placed in L2 L3-L4-L5 and S1 levels bilaterally with the assistance of fluoroscopy and appropriate size malcolm placed. By way of a trans-foraminal approach on the left complete discectomy of L5-S1 was performed endplates curetted to subcortical bleeding bone and a 13 x 26 mm peek cage filled with osteo-bone graft tapped in position. Then proceeded L4-[address] of a transforaminal approach on the left complete discectomy performed endplates curetted to subcortical any bone and a 12 x 22 mm peek cage with osteo-bone graft tapped in position. Lastly I approach the L3-4 tr ansforaminal region on the left. A complete discectomy again performed. Endplates curetted to subcortical bleeding bone and a 12 x 22 mm peek cage filled osteo-bone graft tapped position. The rods were then locked in final position bilaterally. A cross-link locked in position. The transverse processes of L2-3-4 5 and the sacral ala were then burred to subcortical any bone. Infuse collagen sponge mass graft local autograft placed in the posterior lateral gutters. 15 round BRITTNEY drain inserted. The incision was then closed with 1 Vicryl the fascia 2-0 Vicryl subcutaneously and 4 Monocryl for final skin closure. Steri-Strip sterile dressings placed. Patient waken taken PACU stable condition. Please note spinal cord monitoring was utilized that the procedure no changes noted. Lastly Yina Brown was present at the entire procedure involved the patient positioning complex portions of the surgery and final skin closure. I attest to the content of the Intraoperative Record and any orders documented therein. Any exceptions are noted below.
--- NOTE | 2020-01-15 10:50 | Fluoroscopy Report ---
LUMBAR SPINE, INTRAOPERATIVE FLUOROSCOPY HISTORY: L2-S1 decompression and fusion. FLUOROSCOPY TIME: 37 seconds. FINDINGS: Intraoperative fluoroscopy was provided for the lumbar spine. 4 fluoroscopic spot images we re obtained. Posterior decompression fusion from L2 through S1 with pedicle screws and rods. The hard andre appears intact. IMPRESSION: Fluoroscopy provided for a L2-S1 posterior decompression and fusion. ACT 112: Negative or not required by law. Electronically signed by: Shaun Abreu M.D. 01/15/2020 10:48 AM
[2020-01-15] MEDS: fentaNYL citrate 100 MCG/2 ML VIAL IV PRN ×2 (11:11→11:16)
[2020-01-15] MEDS ORDERED: HYDROmorphone INJ 1 MG/ML SYRINGE ONE ×3 (11:17→11:49)
[2020-01-15] MEDS: HYDROmorphone INJ 2 MG/ML SYR/VIAL IV PRN ×4 (11:21→11:36)
[2020-01-15] MEDS ORDERED: HYDROmorphone INJ 0.5 MG/0.5 ML SYR IV STA (11:48)
--- NOTE | 2020-01-15 12:23 | Anesthesiology Progress Note ---
Date of Service January 15, 2020 Anesthesia Post Procedure Vital Signs Vital Signs: Temp Pulse Pulse Resp BP Pulse Ox 01/15/20 12:10 36.5 C 82 16 176/82 H 97 01/15/20 12:00 75 16 176/82 H 97 01/15/20 11:50 36.3 C L 77 16 217/76 H 97 01/15/20 11:40 74 16 188/77 H 97 01/15/20 11:30 73 16 182/84 H 73 L 01/15/20 11:20 66 16 163/92 H 99 01/15/20 11:10 67 16 196/91 H 99 01/15/20 11:04 36.4 C L 63 16 200/92 H 98 01/15/20 07:20 217/97 H 01/15/20 06:29 36.8 C 75 18 203/109 H 97 Pain Intensity Lower Back: Pain Intensity: 7 Transfer of Care Handoff Completed per policy Notes Mental Status: alert / awake / arousable and participated in evaluation Patient Amnestic to Procedure: Yes Nausea / Vomiting: adequately controlled Pain: adequately controlled Airway Patency, RR, SpO2: stable & adequate BP & HR: stable & adequate Hydration State: stable & adequate Anesthetic Complications: no major complications apparent and Pt Satisfied with anesthetic care
[2020-01-15] MEDS ORDERED: MECLIZINE 12.5 MG TAB PO PRN (12:38)
[2020-01-15] MEDS ORDERED: METOCLOPRAMIDE HCL INJ 5 MG/ML 2 ML VIAL IV PRN (12:38)
[2020-01-15] MEDS ORDERED: MAGNESIUM HYDROXIDE SUSP 30 ML UDC PO PRN (12:38)
[2020-01-15] MEDS ORDERED: NALOXONE HCL 0.4 MG/1 ML VIAL/CARP IV PRN (12:38)
[2020-01-15] MEDS ORDERED: DO NOT ADMINISTER FLU VACCINE PRN (12:38)
[2020-01-15] MEDS ORDERED: SOD PHOSPHATE/SOD BIPHOSPHATE ENEMA 132 ML BTL PR PRN (12:38)
[2020-01-15] MEDS ORDERED: ALUMINUM/MAGNESIUM SUSP 30 ML UDC PO PRN (12:38)
[2020-01-15] MEDS ORDERED: bisacodyL 10 MG SUPP PR PRN (12:38)
[2020-01-15] MEDS ORDERED: ACETAMINOPHEN 1,000 MG/100 ML VIAL IV PRN (12:38)
[2020-01-15] MEDS ORDERED: FUROSEMIDE 20 MG TAB PO PRN (12:38)
[2020-01-15] MEDS ORDERED: FAMOTIDINE 20 MG TAB PO PRN (12:38)
[2020-01-15] MEDS ORDERED: DO NOT ADMINISTER PNEUMOCOCCAL VACCINE PRN (12:38)
[2020-01-15] MEDS ORDERED: LORazepam 0.5 MG/1 ML VIAL IV PRN (12:38)
[2020-01-15] MEDS ORDERED: LORazepam 0.5 MG TAB PO PRN (12:38)
[2020-01-15] MEDS ORDERED: ONDANSETRON 4 MG OD TAB PO PRN (12:38)
[2020-01-15] MEDS ORDERED: PHARMACY GLYCEMIC MGMT CONSULT PRN (12:48)
[2020-01-15] MEDS ORDERED: NITROGLYCERIN 60 SPRAYS/4.9 GM SPRAY SL PRN (12:53)
[2020-01-15] MEDS ORDERED: BETAMETHASONE DIP AUG (DIPROLENE) 0.05% CR 15 GM TUBE EXT PRN (12:54)
--- NOTE | 2020-01-15 13:05 | Consultation ---
Date of Consultation January 15, 2020 Assessment & Plan (1) Status post lumbar surgery: Post op day# 0 S/P L2-S1 decompression and fusion by Dr Street EBL#400ml -pain management per ortho -wound management per ortho -PT/OT as appropriate -DVT prophylaxis per ortho -incentive spirometry -monitor H&H for acute blood loss anemia; pre-op Hgb: 11.4 (2) HTN (hypertension): -Continue amlodipine, hydralazine, carvedilol, terazosin (3) Diabetes mellitus, type II: A1c: 6.4 on 01/03/2020 -Hold metformin -Monitor BSGs -Novolog sliding scale per protocol, initial insulin orders placed by glycemic pharmacist, we will take over glycemic management (4) CAD (coronary artery disease): -Continue aspirin, atorvastatin, carvedilol (5) Rheumatoid arthritis: Follows with Dr Bro -Continue hydroxychloroquine (6) Depression: -Continue PPI DVT Prophylaxis -SCDs Disposition per primary service Follows with Dr Sparks for routine care Pt was seen and care coordinated with Dr Hermosillo. See addendum Pt will be followed by Dr Barton starting 01/16/2020 Thank you for this consultation. We will follow the patient with you during their hospital stay. You can reach a [facility] via pager @ [phone]. Supervising Physician Co-Signing Physician Notes Patient is a 74-year-old female with history of CAD, hypertension, obstructive sleep apnea and other medical problems was seen and examined postop after having lumbar decompression fusion surgery by Dr. Street. Patient seem to be in mild distress secondary to pain. Denies any chest pain, shortness of breath, dizziness, nausea, abdominal pain. On exam patient is obese, mild distress, normocephalic atraumatic, lungs are clear to auscultation, chest-sternum protruding, S1-S2,+murmur, trace pedal edema, abdomen soft, nontender, normal bowel sounds, back--surgical site in dressing, tender, grossly no focal neurologic deficits. Patient is consulted for postop medical management S/P L2-S1 decompression and fusion by Dr Street POD#0. Monitor for postop anemia. DVT prophylaxis, wound care, activity as per primary team. Pain control. Continue bowel regimen to prevent constipation. Continue incentive spirometry. Blood pressure is slightly elevated. Secondary to pain. Resume home medications to control blood pressure. Hold metformin and utilize insulin therapy while hospitalized to control blood sugar levels. Hold Lasix for now. Resume as able. I personally reviewed the record. Patient is interviewed and examined at bedside. Patient's care is coordinated with Cindy Wong. Please refer to the documentation above for details of patient's presentation and for discussion of other issues. History of Present Illness Requesting Physician: Dr Street Reason for Consultation: Post op medical management Attending Physician: Rashaad Street, DO History of Present Illness Pt is 74 y/o F with PMH CAD, HTN, dyslipidemia, ISATU -untreated, iron deficiency anemia, DM II, depression, GERD, gout, RA, hypothyroidism, breast CA s/p mastectomy & chemo seen in medical consultation s/p L2-S1 decompression and fusion today by Dr Street. Post op pt reports some back pain. Denies extremity paresthesias, nausea, vomiting. Has Granger in place. Denies fever/chills, diaphoresis, MAXWELL, dizziness, CP, SOB, cough, choking, abdominal pain, rashes. Allergies Allergy/AdvReac Type Severity Reaction Status Date / Time nadolol AdvReac Unknown GI UPSET Verified 01/15/20 06:39 nitroglycerin AdvReac Unknown HEADACHE Verified 01/15/20 06:39 NSAIDS (Non-Steroidal AdvReac Unknown GI UPSET Verified 01/15/20 06:39 Anti-Inflamma Home Medications Home Medications Medication Instructions Recorded Confirmed Type aspirin [Aspirin Low Dose] 81 mg PO QAM 04/02/18 01/15/20 History atorvastatin 40 mg PO HS 04/02/18 01/15/20 History carvedilol 12.5 mg PO BID 04/02/18 01/15/20 History fluoxetine [Prozac] 40 mg PO QAM 04/02/18 01/15/20 History furosemide [Lasix] 20 mg PO DAILY PRN 04/02/18 01/15/20 History gabapentin 300 mg PO TID 04/02/18 01/15/20 History hydralazine 50 mg PO TID 04/02/18 01/15/20 History hydroxychloroquine 200 mg PO BID 04/02/18 01/15/20 History metformin 500 mg PO BID 04/02/18 01/15/20 History nitroglycerin 1 dose TRANSLINGUAL DIRECTED PRN 04/02/18 01/15/20 History pantoprazole 40 mg PO QAM 04/02/18 01/15/20 History terazosin 2 mg PO HS 04/02/18 01/15/20 History amlodipine 5 mg PO QAM 03/29/19 01/15/20 History betamethasone dipropionate 1 applic TOPICAL BID PRN 03/29/19 01/15/20 History acetaminophen [Tylenol Extra 1,000 mg PO Q6H PRN 09/08/19 01/15/20 History Strength] levothyroxine 25 mcg PO QAM 09/08/19 01/15/20 History meclizine 12.5 mg tablet 0.5 mg PO Q8 PRN #30 tab 09/26/19 01/15/20 Rx Patient History Medical History (Updated 01/15/20 @ 13:36 by Cindy Green PA-C) CAD (coronary artery disease) non-obstructive per 2017 cardiac cath Chronic back pain LLE radiculopathy CVA (cerebral vascular accident) 2017, residual unsteady, left sided weakness Depression Diabetes mellitus type 2 in nonobese NIDDM Diabetes mellitus, type II Dyslipidemia GERD (gastroesophageal reflux disease) Hiatal hernia History of breast cancer right breast HTN (hypertension) Hypothyroidism IBS (irritable bowel syndrome) Myocardial Infarction 1991 (PTCA/PCI to ramus intermedius complicated by spiral dissection) Osteoarthritis PAD (peripheral artery disease) severe right brachiocephalic stenosis and moderate to severe abdominal aortic stenosis- under surveillance by cardiovascular Rheumatoid arthritis Surgical History (Updated 01/15/20 @ 13:36 by Cindy Green PA-C) H/O repair of right rotator cuff 2013 History of back surgery 2019 History of bilateral knee arthroplasty Left (1995), right (2005) History of cardiac cath [facility]-2017 NO STENTS History of cholecystectomy 1998 History of colonoscopy History of modified radical mastectomy of right breast 2011 History of total knee replacement left revision Nasal fracture repair Status post renal artery angioplasty 1991 Family History Daughter Family history of reaction to anesthesia SLOW TO WAKE UP Mother Family history of diabetes mellitus Other Diabetes Heart disease Hypertension Social History Smoking Status: Former smoker Smoking End Date: QUIT 1991; Second Hand Exposure: No; Do You Dip or Chew Tobacco: No; Tobacco Cessation Education Requested by Patient: No Hx Alcohol Use: No Hx Substance Use: No Preferred Language: Tajik Communication Ability: Effective Visual Impairment: No Limitations Hearing Ability: Normal Card Grinder Required: No Beliefs That Will Affect Care: None marital status: Current Living Situation: Spouse and Family current occupational status: retired Other Information That Helps Us Care for You: No Feels Safe at Home: Yes Safety Concerns: Feels Safe At This Time Review of Systems Review of Systems: All systems reviewed & are unremarkable except as noted in HPI & below Physical Exam Physical Exam: General: no distress, obese Head: normocephalic, atraumatic Eyes: conjunctiva non-injected, anicteric ENT: normal inspection external ears, nose, mucous membranes moist Neck: supple, trachea midline Lungs: clear, no respiratory distress, no wheezing/rhonchi/rales CV: RRR, no murmur, no pretibial edema Abd: normal BS, soft, non-tender Back: Surgical dressing in place is dry and intact Ext: no cyanosis, no calf tenderness Neuro: A&O x 3, no focal deficits noted, normal affect Skin: warm, dry Results & Data ([facility]) Vital Signs (Past 12 Hours) Vital Signs Temp Pulse Pulse Resp BP Pulse Ox 01/15/20 12:38 79 16 164/78 H 99 01/15/20 12:25 36.7 C 76 15 184/75 H 97 01/15/20 12:10 36.5 C 82 16 176/82 H 97 01/15/20 12:00 75 16 176/82 H 97 01/15/20 11:50 36.3 C L 77 16 217/76 H 97 01/15/20 11:40 74 16 188/77 H 97 01/15/20 11:30 73 16 182/84 H 73 L 01/15/20 11:20 66 16 163/92 H 99 01/15/20 11:10 67 16 196/91 H 99 01/15/20 11:04 36.4 C L 63 16 200/92 H 98 01/15/20 07:20 217/97 H 01/15/20 06:29 36.8 C 75 18 203/109 H 97
[2020-01-15] MEDS ORDERED: CARBOHYDRATES FOR HYPOGLYCEMIA PO PRN (13:30)
[2020-01-15] MEDS ORDERED: GLUCAGON FOR INJ 1 MG VIAL IM PRN (13:30)
[2020-01-15] MEDS ORDERED: GLUCOSE 40% GEL 15 GM TUBE PO PRN (13:30)
[2020-01-15] MEDS ORDERED: DEXTROSE 50% 50 ML SYRINGE IV PRN (13:30)
[2020-01-15] MEDS ORDERED: GLUCOSE 10 TABS/TUBE PO PRN (13:30)
[2020-01-15] MEDS: HydrALAZINE TAB 50 MG TAB PO SCH ×2 (14:02→21:42)
[2020-01-15] MEDS: SODIUM CHLORIDE 0.9% 1000ML 1,000 ML IV SCH ×2 (14:02→21:56)
[2020-01-15] MEDS: GABAPENTIN 300 MG CAP PO SCH ×2 (14:02→21:42)
[2020-01-15] MEDS: INSULIN ASPART 100 UNITS/ML 3 ML PEN SC SCH ×4 (14:04→23:37)
[2020-01-15] MEDS: OXYCODONE HCL IR 5 MG TAB (IMMEDIATE RELEASE) PO PRN ×2 (16:51→23:46)
[2020-01-15] MEDS: CEFAZOLIN 2000MG 2,000 MG/15 ML SYR IV SCH ×2 (16:51→23:34)
[2020-01-15] MEDS: TRAMADOL HCL 50 MG TABLET PO PRN (17:55)
[2020-01-15] MEDS: carvediloL 12.5 MG TAB PO SCH (21:42)
[2020-01-15] MEDS: ATORVASTATIN 40 MG TAB PO SCH (21:42)
[2020-01-15] MEDS: DOCUSATE SODIUM/SENNA 50/8.6MG TAB PO SCH (21:42)
[2020-01-15] MEDS: TERAZOSIN HCL 1 MG CAP PO SCH (21:42)
[2020-01-15] MEDS: HYDROXYCHLOROQUINE SULFATE 200 MG TAB PO SCH (21:44)
[2020-01-15] MEDS: INSULIN GLARGINE SOLOSTAR 100 UNITS/ML 3 ML PEN SC SCH (21:51)
[2020-01-16] MEDS: OXYCODONE HCL IR 5 MG TAB (IMMEDIATE RELEASE) PO PRN ×4 (03:54→22:39)
[2020-01-16] MEDS: INSULIN ASPART 100 UNITS/ML 3 ML PEN SC SCH ×5 (04:46→21:09)
[2020-01-16 06:33] LABS: Basophils # (auto) 0.02 K/uL (0-0.2); Basophils % (auto) 0.2 %; Eosinophils # (auto) 0.02 K/uL (0-0.5); Eosinophils % (auto) 0.2 %; Hematocrit (blood only) 28.5 % (37-47); Hemoglobin 9.2 g/dL (12.0-16.0); Immature Granulocytes # (auto) 0.04 K/uL (0.00-0.02); Immature Granulocytes % (auto) 0.3 %; Mean Corpuscular Hemoglobin 31.9 pg (25-34); Mean Corpuscular Hgb Conc 32.3 g/dL (32-36); Mean Platelet Volume 8.3 fL (7.4-10.4); Monocytes # (auto) 0.99 K/uL (0.11-0.59); Monocytes % (auto) 8.5 %; Neutrophils # (auto) 9.01 K/uL (1.4-6.5); Neutrophils % (auto) 77.8 %; Platelet Count 143 K/uL (130-400); RDW Coefficient of Variation 12.8 % (11.5-14.5); Red Blood Count 2.88 M/uL (4.2-5.4); White Blood Count 11.58 K/uL (4.8-10.8)
[2020-01-16] MEDS: LEVOTHYROXINE SODIUM 25 MCG TABLET PO SCH (06:41)
[2020-01-16] MEDS: POLYETHYLENE (MIRALAX) 17 GM PACK PO SCH ×3 (06:41→17:44)
[2020-01-16 06:58] LABS: Estimated Average Glucose 140 mg/dl; Hemoglobin A1C 6.5 % (4.5-5.6)
[2020-01-16 07:03] LABS: BUN Creatinine Ratio 18.4 (10-20); Calcium 7.9 mg/dl (8.5-10.1); Creatinine Clr Calc Pharmacy 83.3 ml/min; Est GFR (African American) 87.5; Est GFR (Non-African American) 75.5; Magnesium 1.2 mg/dl (1.8-2.4)
[2020-01-16] MEDS: HYDROmorphone INJ 0.5 MG/0.5 ML SYR IV PRN ×2 (07:39→08:39)
--- NOTE | 2020-01-16 08:00 | Anesthesiology Progress Note ---
Date of Service January 16, 2020 Pt. very painful during rounding. Nurse getting ready to administer pain medicine. Anesthesia Post Procedure Vital Signs Vital Signs: Temp Pulse Pulse Resp BP Pulse Ox 01/16/20 07:52 36.5 C 89 16 145/69 H 96 01/16/20 04:02 36.4 C L 87 20 197/78 H 90 01/16/20 00:04 36.7 C 86 18 186/67 H 91 01/15/20 20:07 36.5 C 82 16 169/71 H 94 01/15/20 15:25 36.3 C L 78 17 189/95 H 96 01/15/20 13:21 76 16 175/81 H 97 01/15/20 12:38 79 16 164/78 H 99 01/15/20 12:25 36.7 C 76 15 184/75 H 97 01/15/20 12:10 36.5 C 82 16 176/82 H 97 01/15/20 12:00 75 16 176/82 H 97 01/15/20 11:50 36.3 C L 77 16 217/76 H 97 01/15/20 11:40 74 16 188/77 H 97 01/15/20 11:30 73 16 182/84 H 73 L 01/15/20 11:20 66 16 163/92 H 99 01/15/20 11:10 67 16 196/91 H 99 01/15/20 11:04 36.4 C L 63 16 200/92 H 98 Pain Intensity Lower Back: Pain Intensity: 10 Notes Mental Status: alert / awake / arousable and participated in evaluation Nausea / Vomiting: adequately controlled Pain: adequately controlled Airway Patency, RR, SpO2: stable & adequate BP & HR: stable & adequate Hydration State: stable & adequate
[2020-01-16] MEDS: HydrALAZINE TAB 50 MG TAB PO SCH ×3 (08:50→21:03)
[2020-01-16] MEDS: GABAPENTIN 300 MG CAP PO SCH ×3 (08:50→21:05)
[2020-01-16] MEDS: HYDROXYCHLOROQUINE SULFATE 200 MG TAB PO SCH (08:50)
[2020-01-16] MEDS: carvediloL 12.5 MG TAB PO SCH ×2 (08:50→21:04)
[2020-01-16] MEDS: ASPIRIN 81 MG ECTAB PO SCH (08:51)
[2020-01-16] MEDS: AMLODIPINE BESYLATE 5 MG TAB PO SCH (08:51)
[2020-01-16] MEDS: PANTOprazole 40 MG TAB PO SCH (08:51)
[2020-01-16] MEDS: FLUOXETINE HCL 20 MG CAP PO SCH (08:52)
--- NOTE | 2020-01-16 09:56 | Orthopedic Progress Note ---
Date of Service January 16, 2020 Assessment & Plan (1) Neurogenic claudication due to lumbar spinal stenosis: At this time we will continue physical therapy as tolerated. She is quite weak. She is a very good candidate for rehab placement. Present on Admission?: Yes Admission and Anticipated Discharge Date Admission Date: January 15, 2020 Subjective Back pain controlled leg pain improved. Physical Exam Physical Exam: Patient is unsure at the bedside. She is had difficulty with any prolonged standing and she has generalized weakness. This was pre-existing. Results & Data ([facility]) Vital Signs (Past 12 Hours) Vital Signs Temp Pulse Resp BP Pulse Ox 01/16/20 07:52 36.5 C 89 16 145/69 H 96 01/16/20 04:02 36.4 C L 87 20 197/78 H 90 01/16/20 00:04 36.7 C 86 18 186/67 H 91
[2020-01-16] MEDS: HYDROmorphone INJ 1 MG/ML SYRINGE IV PRN (13:27)
[2020-01-16] MEDS ORDERED: HydrALAZINE HCL 20 MG/ML VIAL IV PRN (20:11)
--- NOTE | 2020-01-16 20:37 | Hospitalist Progress Note ---
Date of Service January 16, 2020 Assessment & Plan (1) Status post lumbar surgery: Post op day# 1 S/P L2-S1 decompression and fusion by Dr Street Hemoglobin down to 10 Check hemoglobin daily DVT prophylaxis per orthopedic service (2) HTN (hypertension): Uncontrolled, secondary to pain Add hydralazine as needed for systolic BP more than 160 -Continue amlodipine, hydralazine, carvedilol, terazosin (3) Diabetes mellitus, type II: A1c: 6.4 on 01/03/2020 -Hold metformin BSG's within acceptable range Continue insulin regimen (4) CAD (coronary artery disease): -Continue aspirin, atorvastatin, carvedilol (5) Rheumatoid arthritis: Follows with Dr Bro Hold hydroxychloroquine Need to discuss with Dr. Bro regarding best time to resume hydroxychloroquine (6) Depression: -Continue PPI DVT Prophylaxis -SCDs Thank you for this consultation. We will follow the patient with you during their hospital stay. You can reach a member [facility] via pager @ [phone]. Admission and Anticipated Discharge Date Admission Date: January 15, 2020 Subjective Follow-up for postop back surgery Seen sitting up in bed, not in distress Comfortable States she feels sore on the incision site but otherwise feels fine today No chest pain, shortness of breath, palpitations, dizziness, headache No abdominal pain or nausea vomiting Denies other symptoms Review of Systems Review of Systems: All systems reviewed & are unremarkable except as noted in HPI & below Physical Exam Physical Exam: General- oriented x 3, not in distress, speaks in sentences with no effort or accessory muscle use Head- atraumatic Eyes- PERRL, EOMI, anicteric ENT- oropharynx clear Neck- supple, no JVD, no adenopathy, no thyromegaly; carotids +2/2, no bruits appreciated Lungs- clear to auscultation bilaterally, no rales/wheezes Heart- normal rate, regular rhythm; no murmur, no gallop, no rub appreciated Abdomen- normal bowel sounds, nondistended, soft, nontender, no masses or hepatosplenomegaly Back-surgical dressing in place with no bleeding or discharge, BRITTNEY drain with sanguinous output Extremities- no pretibial edema, no calf tenderness; peripheral pulses intact Neuro- alert, oriented x 3; CN 2-12 grossly intact; motor 5/5 bilaterally;sensation 100% on all extremities; no other gross focal neurologic deficits Skin- warm & dry Results & Data Results & Data ([facility]) Vital Signs (Past 12 Hours) Vital Signs Temp Pulse Resp BP Pulse Ox 01/16/20 20:00 36.7 C 92 H 18 150/70 H 92 01/16/20 16:11 37.1 C 84 16 169/64 H 95 01/16/20 12:29 94 01/16/20 12:02 94 Laboratory Results Laboratory Results - last 24 hr 01/15/20 01/15/20 01/16/20 20:31 23:34 03:34 WBC RBC Hgb Hct MCV MCH MCHC RDW Std Deviation RDW Coeff of Farheen Plt Count MPV Immature Gran % (Auto) Neut % (Auto) Lymph % (Auto) [place] % (Auto) Eos % (Auto) Baso % (Auto) Neut # (Auto) Lymph # (Auto) [place] # (Auto) Eos # (Auto) Baso # (Auto) Immature Gran # (Auto) Sodium Potassium Chloride Carbon Dioxide Anion Gap BUN Creatinine Est Cr Clr Drug Dosing Est GFR ( Amer) Est GFR (Non-Af Amer) BUN/Creatinine Ratio Glucose POC Glucose 157 H 154 H 135 H Estimat Average Glucose Hemoglobin A1c Calcium Magnesium Hepatitis C Ab Screen 01/16/20 01/16/20 01/16/20 05:37 05:37 05:37 WBC 11.58 H RBC 2.88 L Hgb 9.2 L Hct 28.5 L MCV 99.0 MCH 31.9 MCHC 32.3 RDW Std Deviation 46.0 RDW Coeff of Farheen 12.8 Plt Count 143 MPV 8.3 Immature Gran % (Auto) 0.3 Neut % (Auto) 77.8 Lymph % (Auto) 13.0 [place] % (Auto) 8.5 Eos % (Auto) 0.2 Baso % (Auto) 0.2 Neut # (Auto) 9.01 H Lymph # (Auto) 1.50 [place] # (Auto) 0.99 H Eos # (Auto) 0.02 Baso # (Auto) 0.02 Immature Gran # (Auto) 0.04 H Sodium 138 Potassium 4.0 Chloride 106 Carbon Dioxide 26 Anion Gap 6.0 BUN 14 Creatinine 0.77 Est Cr Clr Drug Dosing 83.3 Est GFR ( Amer) 87.5 Est GFR (Non-Af Amer) 75.5 BUN/Creatinine Ratio 18.4 Glucose 146 H POC Glucose Estimat Average Glucose Hemoglobin A1c Calcium 7.9 L Magnesium 1.2 L Hepatitis C Ab Screen Neg 01/16/20 01/16/20 01/16/20 05:37 08:10 12:03 WBC RBC Hgb Hct MCV MCH MCHC RDW Std Deviation RDW Coeff of Farheen Plt Count MPV Immature Gran % (Auto) Neut % (Auto) Lymph % (Auto) [place] % (Auto) Eos % (Auto) Baso % (Auto) Neut # (Auto) Lymph # (Auto) [place] # (Auto) Eos # (Auto) Baso # (Auto) Immature Gran # (Auto) Sodium Potassium Chloride Carbon Dioxide Anion Gap BUN Creatinine Est Cr Clr Drug Dosing Est GFR ( Amer) Est GFR (Non-Af Amer) BUN/Creatinine Ratio Glucose POC Glucose 137 H 177 H Estimat Average Glucose 140 Hemoglobin A1c 6.5 H Calcium Magnesium Hepatitis C Ab Screen 01/16/20 01/16/20 17:13 20:26 WBC RBC Hgb Hct MCV MCH MCHC RDW Std Deviation RDW Coeff of Farheen Plt Count MPV Immature Gran % (Auto) Neut % (Auto) Lymph % (Auto) [place] % (Auto) Eos % (Auto) Baso % (Auto) Neut # (Auto) Lymph # (Auto) [place] # (Auto) Eos # (Auto) Baso # (Auto) Immature Gran # (Auto) Sodium Potassium Chloride Carbon Dioxide Anion Gap BUN Creatinine Est Cr Clr Drug Dosing Est GFR ( Amer) Est GFR (Non-Af Amer) BUN/Creatinine Ratio Glucose POC Glucose 142 H 163 H Estimat Average Glucose Hemoglobin A1c Calcium Magnesium Hepatitis C Ab Screen
[2020-01-16] MEDS: MAGNESIUM SULFATE / D5W 1 GM/100 ML BAG IV SCH ×2 (20:59→22:29)
[2020-01-16] MEDS: ATORVASTATIN 40 MG TAB PO SCH (21:03)
[2020-01-16] MEDS: TERAZOSIN HCL 1 MG CAP PO SCH (21:03)
[2020-01-16] MEDS: MAGNESIUM OXIDE 400 MG TAB PO SCH (21:03)
[2020-01-16] MEDS: DOCUSATE SODIUM/SENNA 50/8.6MG TAB PO SCH (21:03)
[2020-01-16] MEDS: INSULIN GLARGINE SOLOSTAR 100 UNITS/ML 3 ML PEN SC SCH (21:09)
[2020-01-17] MEDS: POLYETHYLENE (MIRALAX) 17 GM PACK PO SCH ×5 (00:22→23:21)
[2020-01-17] MEDS: ACETAMINOPHEN 500 MG TAB PO PRN (00:22)
[2020-01-17 05:57] LABS: Basophils # (auto) 0.01 K/uL (0-0.2); Basophils % (auto) 0.1 %; Eosinophils # (auto) 0.04 K/uL (0-0.5); Eosinophils % (auto) 0.4 %; Hematocrit (blood only) 22.3 % (37-47); Hemoglobin 7.5 g/dL (12.0-16.0); Immature Granulocytes # (auto) 0.05 K/uL (0.00-0.02); Immature Granulocytes % (auto) 0.5 %; Lymphocytes % (auto) 15.1 %; Mean Corpuscular Hemoglobin 32.3 pg (25-34); Mean Corpuscular Hgb Conc 33.6 g/dL (32-36); Mean Corpuscular Volume 96.1 fL (80-100); Mean Platelet Volume 8.1 fL (7.4-10.4); Neutrophils # (auto) 7.26 K/uL (1.4-6.5); Neutrophils % (auto) 72.9 %; Platelet Count 107 K/uL (130-400); RDW Coefficient of Variation 12.6 % (11.5-14.5); RDW Standard Deviation 43.4 fL (36.4-46.3); Red Blood Count 2.32 M/uL (4.2-5.4); White Blood Count 9.96 K/uL (4.8-10.8)
[2020-01-17] MEDS: LEVOTHYROXINE SODIUM 25 MCG TABLET PO SCH (05:57)
[2020-01-17 06:16] LABS: RBC Morphology Unremarkable
[2020-01-17 06:29] LABS: BUN Creatinine Ratio 17.1 (10-20); Calcium 8.4 mg/dl (8.5-10.1); Creatinine Clr Calc Pharmacy 72.9 ml/min; Est GFR (African American) 74.5; Est GFR (Non-African American) 64.3; Potassium 3.9 mmol/L (3.5-5.1)
[2020-01-17] MEDS ORDERED: SODIUM CHLORIDE 0.9% 250 ML IV PRN (07:43)
[2020-01-17] MEDS: HydrALAZINE TAB 50 MG TAB PO SCH ×3 (08:40→20:57)
[2020-01-17] MEDS: FLUOXETINE HCL 20 MG CAP PO SCH (08:40)
[2020-01-17] MEDS: GABAPENTIN 300 MG CAP PO SCH ×3 (08:41→20:57)
[2020-01-17] MEDS: MAGNESIUM OXIDE 400 MG TAB PO SCH ×2 (08:41→20:57)
[2020-01-17] MEDS: carvediloL 12.5 MG TAB PO SCH ×2 (08:41→20:57)
[2020-01-17] MEDS: ASPIRIN 81 MG ECTAB PO SCH (08:41)
[2020-01-17] MEDS: PANTOprazole 40 MG TAB PO SCH (08:41)
[2020-01-17] MEDS: AMLODIPINE BESYLATE 5 MG TAB PO SCH (08:41)
[2020-01-17] MEDS: INSULIN ASPART 100 UNITS/ML 3 ML PEN SC SCH ×4 (08:42→21:01)
[2020-01-17] MEDS: OXYCODONE HCL IR 5 MG TAB (IMMEDIATE RELEASE) PO PRN ×3 (08:47→18:10)
--- NOTE | 2020-01-17 09:50 | Orthopedic Progress Note ---
Date of Service January 17, 2020 Assessment & Plan (1) Neurogenic claudication due to lumbar spinal stenosis: At this time we will transfuse 2 units of packed red blood cells today. Continue with activity as tolerated. Hopefully a candidate for rehab in the next few days. Present on Admission?: Yes Admission and Anticipated Discharge Date Admission Date: January 15, 2020 Subjective Back pain controlled leg symptoms improved. Physical Exam Physical Exam: Exam she is good strength testing appears comfortable. Results & Data ([facility]) Vital Signs (Past 12 Hours) Vital Signs Temp Pulse Pulse Resp BP BP Pulse Ox 01/17/20 09:10 37 C 78 16 167/68 H 93 01/17/20 08:45 36.6 C 78 16 161/70 H 95 01/17/20 08:25 36.7 C 90 18 145/72 H 96 01/17/20 08:04 36.7 C 76 18 150/69 H 01/17/20 07:49 36.7 C 75 16 149/71 H 92 01/16/20 23:30 38.3 C H 89 18 149/69 H 96
--- NOTE | 2020-01-17 16:24 | Hospitalist Progress Note ---
Date of Service January 17, 2020 Assessment & Plan (1) Status post lumbar surgery: Post op day# 2S/P L2-S1 decompression and fusion by Dr Street Participating in PT OT Orthopedics following closely Acute blood loss anemia due to post surgical status 970 cc BRITTNEY drainage Baseline Hgb 11.7, having dropped to 7.5. s/p transfusion of 2 units of PRBC monitor CBC (2) HTN (hypertension): -Continue amlodipine, hydralazine, carvedilol, terazosin (3) Diabetes mellitus, type II: A1c: 6.4 on 01/03/2020 -Hold metformin BSG's within acceptable range Continue insulin regimen (4) CAD (coronary artery disease): -Continue aspirin, atorvastatin, carvedilol (5) Rheumatoid arthritis: Follows with Dr Bro Hold hydroxychloroquine We will discuss with Dr. Bro regarding best time to resume hydroxychloroquine (6) Depression: -Continue PPI DVT Prophylaxis -SCDs Thank you for this consultation. We will follow the patient with you during their hospital stay. You can reach a [facility] of [facility] via pager @ [phone]. Admission and Anticipated Discharge Date Admission Date: January 15, 2020 Subjective Patient sitting up on chair, Denies of any back pain, no radiation pain to thigh and upper leg, No complaint of shortness of breath, no dizzy spell or palpitation Received 2 unit of PRBC transfusion earlier today for postop acute anemia Review of Systems Review of Systems: All systems reviewed & are unremarkable except as noted in HPI & below Physical Exam Constitutional: WD/WN, vitals as above well developed; no acute distress Eyes: + anicteric sclerae ENMT: external ear and nose normal, oropharynx normal Neck: trachea midline, no thyromegaly Respiratory: normal respiratory effort, lungs clear to auscultation Cardiovascular: RRR, no murmur, no edema Gastrointestinal (Abdomen): Percussion/Palpation: abdomen soft; abdomen nontender Musculoskeletal: Status post lumbar decompression surgery, BRITTNEY drain present with serosanguineous drainage Skin: no rashes, warm and dry Neurologic: PERRL, EOMI, accommodation nl, no face palsy, no dysarthria Psychiatric: A+Ox3, euthymic affect Results & Data Results & Data ([facility]) Vital Signs (Past 12 Hours) Vital Signs Temp Pulse Pulse Resp BP BP Pulse Ox 01/17/20 13:50 37.4 C 73 16 154/71 H 93 01/17/20 13:20 36.8 C 76 16 138/63 91 01/17/20 12:50 37.1 C 75 16 146/72 H 95 01/17/20 12:20 37.4 C 75 20 160/72 H 97 01/17/20 11:48 36.7 C 74 16 157/69 H 01/17/20 11:10 37.2 C 71 16 165/71 H 01/17/20 10:10 37 C 76 16 163/72 H 91 01/17/20 09:10 37 C 78 16 167/68 H 93 01/17/20 08:45 36.6 C 78 16 161/70 H 95 01/17/20 08:40 36.5 C 72 16 149/58 H 01/17/20 08:25 36.7 C 90 18 145/72 H 96 01/17/20 08:04 36.7 C 76 18 150/69 H 01/17/20 07:49 36.7 C 75 16 149/71 H 92
[2020-01-17 18:30] LABS: Hematocrit (blood only) 30.8 % (37-47); Hemoglobin 10.3 g/dL (12.0-16.0)
[2020-01-17] MEDS: DOCUSATE SODIUM/SENNA 50/8.6MG TAB PO SCH (20:57)
[2020-01-17] MEDS: ATORVASTATIN 40 MG TAB PO SCH (20:57)
[2020-01-17] MEDS: TERAZOSIN HCL 1 MG CAP PO SCH (20:57)
[2020-01-17] MEDS: INSULIN GLARGINE SOLOSTAR 100 UNITS/ML 3 ML PEN SC SCH (21:01)
[2020-01-18] MEDS: OXYCODONE HCL IR 5 MG TAB (IMMEDIATE RELEASE) PO PRN ×2 (02:14→07:25)
[2020-01-18] MEDS: POLYETHYLENE (MIRALAX) 17 GM PACK PO SCH ×3 (06:25→18:19)
[2020-01-18] MEDS: LEVOTHYROXINE SODIUM 25 MCG TABLET PO SCH (06:25)
[2020-01-18 06:30] LABS: Basophils # (auto) 0.02 K/uL (0-0.2); Basophils % (auto) 0.2 %; Eosinophils # (auto) 0.08 K/uL (0-0.5); Eosinophils % (auto) 0.7 %; Hematocrit (blood only) 25.9 % (37-47); Hemoglobin 8.8 g/dL (12.0-16.0); Immature Granulocytes # (auto) 0.04 K/uL (0.00-0.02); Immature Granulocytes % (auto) 0.4 %; Lymphocytes # (auto) 1.33 K/uL (1.2-3.4); Mean Corpuscular Hemoglobin 31.8 pg (25-34); Mean Corpuscular Volume 93.5 fL (80-100); Mean Platelet Volume 8.3 fL (7.4-10.4); Monocytes # (auto) 1.04 K/uL (0.11-0.59); Monocytes % (auto) 9.4 %; Neutrophils # (auto) 8.53 K/uL (1.4-6.5); Neutrophils % (auto) 77.3 %; Platelet Count 114 K/uL (130-400); RDW Coefficient of Variation 14.2 % (11.5-14.5); RDW Standard Deviation 48.7 fL (36.4-46.3); Red Blood Count 2.77 M/uL (4.2-5.4); White Blood Count 11.04 K/uL (4.8-10.8)
[2020-01-18 07:07] LABS: BUN Creatinine Ratio 22.5 (10-20); Calcium 8.3 mg/dl (8.5-10.1); Est GFR (African American) 98.7; Est GFR (Non-African American) 85.2; Potassium 3.9 mmol/L (3.5-5.1)
[2020-01-18] MEDS: HydrALAZINE TAB 50 MG TAB PO SCH ×3 (08:09→21:09)
[2020-01-18] MEDS: carvediloL 12.5 MG TAB PO SCH ×2 (08:09→21:10)
[2020-01-18] MEDS: MAGNESIUM OXIDE 400 MG TAB PO SCH ×2 (08:09→21:11)
[2020-01-18] MEDS: ASPIRIN 81 MG ECTAB PO SCH (08:09)
[2020-01-18] MEDS: FLUOXETINE HCL 20 MG CAP PO SCH (08:10)
[2020-01-18] MEDS: PANTOprazole 40 MG TAB PO SCH (08:10)
[2020-01-18] MEDS: AMLODIPINE BESYLATE 5 MG TAB PO SCH (08:10)
[2020-01-18] MEDS: GABAPENTIN 300 MG CAP PO SCH ×4 (08:10→21:16)
[2020-01-18] MEDS: INSULIN ASPART 100 UNITS/ML 3 ML PEN SC SCH ×4 (09:01→21:39)
--- NOTE | 2020-01-18 13:16 | Orthopedic Progress Note ---
Date of Service January 18, 2020 Assessment & Plan (1) Neurogenic claudication due to lumbar spinal stenosis: This time we will continue physical therapy monitor BRITTNEY output consider discharge to rehab or home with home health soon. Present on Admission?: Yes Admission and Anticipated Discharge Date Admission Date: January 15, 2020 Subjective Back pain controlled leg symptoms improving. Physical Exam Physical Exam: Patient is in a chair at the bedside is good strength testing. Results & Data ([facility]) Vital Signs (Past 12 Hours) Vital Signs Temp Pulse Resp BP Pulse Ox 01/18/20 08:06 77 139/72 01/18/20 06:32 36.8 C 69 16 156/67 H 97 01/18/20 03:01 96 01/18/20 03:00 87 L
--- NOTE | 2020-01-18 18:54 | Communication Note ---
Date of Service: January 18, 2020 pt not seen personally Chart review done , pt will not be billed Anemia due to post surgical blood loss : hb 8.2 s/p 2 units of PRBc tx monitor BRITTNEY drain out put repeat CBC in AM hx of RA : hydroxycholoqiine should be resumed on discharge cont PT/OT and furhter management per post spinal decompression protocol by spinal Ortho Litzy Ayala MD
[2020-01-18] MEDS: ATORVASTATIN 40 MG TAB PO SCH (21:10)
[2020-01-18] MEDS: TERAZOSIN HCL 1 MG CAP PO SCH (21:10)
[2020-01-18] MEDS: DOCUSATE SODIUM/SENNA 50/8.6MG TAB PO SCH (21:11)
[2020-01-18] MEDS: INSULIN GLARGINE SOLOSTAR 100 UNITS/ML 3 ML PEN SC SCH (21:39)
[2020-01-18] MEDS ORDERED: Nursing to Pharmacy Communication SCH (22:00)
[2020-01-18 23:50] LABS: Hematocrit (blood only) 27.1 % (37-47); Hemoglobin 9.3 g/dL (12.0-16.0); Mean Corpuscular Hemoglobin 31.8 pg (25-34); Mean Corpuscular Hgb Conc 34.3 g/dL (32-36); Mean Corpuscular Volume 92.8 fL (80-100); Mean Platelet Volume 8.5 fL (7.4-10.4); Nucleated RBC # (auto) 0.02 K/uL (0-0); Nucleated RBC % (auto) 0.2 %; Platelet Count 131 K/uL (130-400); RDW Coefficient of Variation 13.9 % (11.5-14.5); RDW Standard Deviation 46.7 fL (36.4-46.3); Red Blood Count 2.92 M/uL (4.2-5.4)
[2020-01-19 00:33] LABS: Appearance Urine Clear (Clear); Bacteria Urine Automated Negative (Negative); Bilirubin Urine Negative (Negative); Blood Urine Trace (Negative); Cast Urine Automated 0 /lpf (0-5); Color Urine Yellow; Glucose Urine UA Negative (Negative); Ketones Urine Negative (Negative); Leukocyte Esterase Urine Trace (Negative); Nitrite Urine Negative (Negative); Protein Urine Trace (Negative); RBC Urine Automated 0-4 /hpf (0-4); Specific Gravity Urine 1.012 (1.000-1.030); Urobilinogen Urine Negative (Negative); pH Urine 5.5 (4.5-7.5)
[2020-01-19] MEDS ORDERED: OPTIRAY 320 125ml IV PRN (02:54)
[2020-01-19] MEDS ORDERED: METOPROLOL TARTRATE 1 MG/ML VIAL IV PRN (05:04)
--- NOTE | 2020-01-19 07:33 | XRay Report ---
XR chest 1V portable HISTORY: hypoxia COMPARISON: Chest 05/27/2017. FINDINGS: Rotated study. Right shoulder prosthesis is again noted. No pneumothorax. No pleural effusi ons. The lungs are clear. Cardiac silhouette appears normal in size. IMPRESSION: Rotated study. No acute process within the chest. ACT 112: Negative or not required by law. Electronically signed by: Shaun Abreu M.D. 01/19/2020 7:32 AM
[2020-01-19 07:42] LABS: Basophils # (auto) 0.01 K/uL (0-0.2); Basophils % (auto) 0.1 %; Eosinophils # (auto) 0.03 K/uL (0-0.5); Eosinophils % (auto) 0.3 %; Hematocrit (blood only) 27.8 % (37-47); Hemoglobin 9.4 g/dL (12.0-16.0); Immature Granulocytes # (auto) 0.05 K/uL (0.00-0.02); Immature Granulocytes % (auto) 0.5 %; Lymphocytes # (auto) 0.87 K/uL (1.2-3.4); Lymphocytes % (auto) 8.4 %; Mean Corpuscular Hemoglobin 32.6 pg (25-34); Mean Corpuscular Hgb Conc 33.8 g/dL (32-36); Mean Corpuscular Volume 96.5 fL (80-100); Mean Platelet Volume 8.5 fL (7.4-10.4); Monocytes # (auto) 1.13 K/uL (0.11-0.59); Neutrophils # (auto) 8.22 K/uL (1.4-6.5); Neutrophils % (auto) 79.7 %; Platelet Count 156 K/uL (130-400); RDW Coefficient of Variation 13.6 % (11.5-14.5); RDW Standard Deviation 46.7 fL (36.4-46.3); Red Blood Count 2.88 M/uL (4.2-5.4); White Blood Count 10.31 K/uL (4.8-10.8)
--- NOTE | 2020-01-19 08:25 | CT Scan Report ---
CHEST CTA for PULMONARY ARTERIES CT DOSE: 1097.64 mGy.cm HISTORY: Shortness of breath. TECHNIQUE: Multiaxial CT images of the chest were performed following the intravenous administration of contrast to evaluate the pulmonary arteries. Maximal intensity projection images were also obtaine d. A dose lowering technique was utilized adhering to the principles of ALARA. COMPARISON STUDY: Chest CT 06/09/2013. FINDINGS: Prior T12 vertebroplasty. Old left posterior 11th rib fracture. Postoperative changes withi n the right shoulder. Small hiatus hernia. Prior cholecystectomy. Elevation of the right hemidiaphrag m. Moderate calcified plaque within the aorta and origin of the celiac and superior mesenteric arteri es. Normal caliber thoracic aorta with no evidence for dissection. The heart is mildly enlarged. No p leural or pericardial effusions. The visualized liver and spleen are unremarkable. No mediastinal or hilar lymphadenopathy. Normal esophagus. No pneumothorax. The central airways are patent. Small subpl eural nodular density along the major fissures measure up to 4 mm. These are likely benign. No focal lung consolidations to suggest pneumonia. No filling defects within the pulmonary arteries to suggest pulmonary embolus. IMPRESSION: 1. No evidence for pulmonary embolus. 2. Small hiatus hernia. 3. No focal lung consolidations to suggest pneumonia. ACT 112: Negative or not required by law. Electronically signed by: Shaun Abreu M.D. 01/19/2020 8:24 AM
[2020-01-19 08:47] LABS: BUN Creatinine Ratio 19.4 (10-20); Calcium 8.5 mg/dl (8.5-10.1); Creatinine Clr Calc Pharmacy 77.3 ml/min; Est GFR (African American) 79.9; Magnesium 1.7 mg/dl (1.8-2.4); Potassium 3.4 mmol/L (3.5-5.1)
[2020-01-19] MEDS: TRAMADOL HCL 50 MG TABLET PO PRN (09:53)
[2020-01-19] MEDS: MAGNESIUM OXIDE 400 MG TAB PO SCH ×2 (09:54→22:06)
[2020-01-19] MEDS: carvediloL 12.5 MG TAB PO SCH ×2 (09:55→22:06)
[2020-01-19] MEDS: HydrALAZINE TAB 50 MG TAB PO SCH ×3 (09:55→22:06)
[2020-01-19] MEDS: ASPIRIN 81 MG ECTAB PO SCH (09:56)
[2020-01-19] MEDS: PANTOprazole 40 MG TAB PO SCH (09:56)
[2020-01-19] MEDS: AMLODIPINE BESYLATE 5 MG TAB PO SCH (09:56)
[2020-01-19] MEDS: FLUOXETINE HCL 20 MG CAP PO SCH (09:57)
[2020-01-19] MEDS: LEVOTHYROXINE SODIUM 25 MCG TABLET PO SCH (09:57)
[2020-01-19] MEDS: INSULIN ASPART 100 UNITS/ML 3 ML PEN SC SCH ×4 (10:05→22:15)
[2020-01-19] MEDS: GABAPENTIN 300 MG CAP PO SCH ×3 (10:07→22:06)
[2020-01-19] MEDS ORDERED: MAGNESIUM SULFATE / D5W 1 GM/100 ML BAG IV ONE (11:00)
[2020-01-19] MEDS ORDERED: POTASSIUM CHLORIDE 20 MEQ TABCR PO ONE (11:00)
--- NOTE | 2020-01-19 11:00 | Cardiology Consultation ---
Date of Consultation January 19, 2020 Assessment & Plan (1) Unspecified atrial fibrillation: New onset asymptomatic atrial fibrillation with a rapid ventricular response occurring in a postoperative period, postoperative anemia, hypokalemia, and hypomagnesemia noted along with untreated sleep apnea. [id number] Score 8 points though with what appears to be significant risks for both short term and mini shifter anticoagulation. Recommend supplementing potassium and magnesium, utilizing as needed IV metoprolol for additional rate control. Further recommendations pending the above, evaluation and by Dr. Ac, and her ongoing hospitalization. Elevated troponin. Patient with known nonobstructive coronary artery disease by May 26, 2017 diagnostic cardiac catheterization, Catheterization course complicated by transient ischemic attack. No signs/symptoms to suggest an acute coronary syndrome. Hypertension, intermittently uncontrolled. Resume prior antihypertensive regimen. Follow. She has a history of recurrent hyperkalemia with past use of ACEI/A2RB, requiring two prior hospital admissions with hyperkalemia. She has also had past issues with HCTZ and headaches with nitrates. Dyslipidemia. Continue atorvastatin 40 mg/day. Chronic renal insufficiency. Peripheral vascular disease. Followed by Dr. Cruz. Supervising Physician Co-Signing Physician Notes Patient seen and examined with Ray Monsivais PA-C. Agree with findings and assessment as above. Patient seen and examined out of bed in chair with daughter at bedside, chart reviewed. States that she is feeling okay currently with only complaint being that of back pain. Denies any chest pain, shortness of breath, palpitations, lightheadedness, dizziness or syncope. Had a lengthy discussion with the patient and her daughter on the pathophysiology and treatment options for atrial fibrillation. Discussed pros and cons of anticoagulation therapy. The patient has very poor ambulation at baseline even with a walker she falls multiple times. Now status post back surgery I am obviously concerned that this will only worsen. The risk of falling and suffering trauma and possible exsanguination while on anticoagulation was also discussed with the patient and her daughter. We will need to discuss with spinal surgery as to the timing that anticoagulation could be initiated. The patient and her daughter will discuss whether or not she would like to be placed on anticoagulation therapy. Would recommend against DOAC given frequent falls. General: Awake, alert and oriented x 3. No acute distress. HEENT: Normocephalic, atraumatic. Pupils equal, round and reactive to light and accommodation. Extraocular muscles are intact. Anicteric sclera. Moist mucous membranes. Neck: No JVD. No bruit. Cardiovascular: irregularly irregular, unable to appreciate murmur, rub or gallop. Pulmonary: Clear to auscultation bilaterally. No rales, rhonchi, or wheezing. Abdomen: Bowel sounds x 4, soft. No rebound, guarding or tenderness. No organomegaly. Extremities: No clubbing, cyanosis or edema. +2 pedal pulses bilaterally. Skin: Warm and dry. History of Present Illness Reason for Consultation: Atrial fibrillation with a rapid ventricular response Requesting Physician: Cuong Attending Physician: Jamie History of Present Illness Elmira Tavares is a very pleasant yet markedly medially complex 74-year-old female who was admitted to [facility] following January 15, 2020 for lumbar spine intervention by Dr. Street. Postoperative course complicated by elevated blood pressures as well as symptomatic anemia, receiving 2 units of packed red blood cells on January 17, 2020. Electrocardiogram early this morning revealed new onset atrial fibrillation with a rapid ventricular response, replacing sinus rhythm. Personal review of her continuous telemetry monitoring reveals sinus rhythm initially with frequent atrial and ventricular ectopy, short runs of atrial tachycardia, short runs of PAF starting 01/17, lapsing into atrial fibrillation shortly after 9 AM this morning and remaining in atrial fibrillation thereafter. Daughter at bedside. Patient and daughter both believe she is doing better today as compared to yesterday. She is unaware of the atrial fibrillation. She specifically denies chest pain, palpitations, worsening dyspnea, cough, chest congestion, peripheral edema, dizziness, near syncope, fevers, or chills. Back pain is controlled, ongoing leg symptoms (improved) Past Medical and Surgical History History of ischemic heart disease * s/p PTCA to the ramus intermedius complicated by spiral dissection in 1991 * Presentation in the Fall of 2016 with chest discomfort concerning for angina leading to abnormal nuclear stress testing and ultimately diagnostic cardiac catheterization on May 26, 2017. Coronary anatomy was noted to be right- dominant and nonobstructive. There was a 20% proximal left main stenosis, 10% mid LAD stenosis, 20% distal LAD stenosis, 20% proximal RCA stenosis in an area of moderate calcification, 30% mid RCA stenosis in an area of moderate calcification, 20% ostial stenosis of the right PDA, normal left circumflex, normal ramus intermedius. * Josseline procedure course complicated by a transient ischemic attack (left sided facial asymmetry along with left upper and left lower pareshesias) MRA of the neck at that time showed patent common carotid and internal carotid arteries. There was some degree of stenosis suggested at the origin of the right vertebral artery and high-grade stenosis of the origin of the right external carotid artery a well as the right subclavian artery. MRI revealed a punctate focus of restricted diffusion consistent with acute ischemia in the right cerebellar hemisphere with no other sites of ischemia observed; this did not correlate with the patient's neurological examination per documentation. Neurological symptoms resolved prior to discharge. 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 Recurrent hyperkalemia with ACEI/A2RB, requiring two prior hospital admissions at [facility] secondary to hyperkalemia. Past issues with HCTZ. Headaches with nitrates. Type II diabetes mellitus with neuropathy Dyslipidemia Obesity Mild obstructive sleep apnea (untreated). Osteoarthritis Chronic renal insufficiency Iron deficiency anemia. Breast cancer status post mastectomy complicated by wound infection requiring a wound vac x 4 months and chemotherapy Depression GERD Diverticulosis Internal hemorrhoids Colonoscopy last on September 26, 2018, tubular adenoma polypectomy. Repeat colonoscopy due in September 2019. IBS Gout Urinary incontinence Lumbar disc disease Bilateral knee replacements. Redo left knee replacement. Right rotator cuff repair. Right shoulder replacement. Cholecystectomy. Breast biopsy. Left wrist surgery. Closed nasal reduction by Dr. Rust on September 15, 2018. Mechanical fall on October 28, 2018 with resultant T12 compression fracture requiring kyphoplasty by Dr. Rashaad Street at [facility] on 11/15/2018. Family History: Father with asthma. He at the age of 42 [address] Mother had DM and a CVA, at [address] while walking to the post office in [place]. One sister with CAD, valvular heart disease. Oldest brother with a cerebral aneurysm. One brother was electrocuted. One brother committed suicide. Social History: Prior smoker, quit in 1991 after smoking 1 ppd off an on for 25- 30 years. Rare alcohol. No illegal drug use. Lives with her Tray. Three children. Complete Review of Systems is otherwise negative or noncontributory. Allergies Allergy/AdvReac Type Severity Reaction Status Date / Time nadolol AdvReac Unknown GI UPSET Verified 01/15/20 06:39 nitroglycerin AdvReac Unknown HEADACHE Verified 01/15/20 06:39 NSAIDS (Non-Steroidal AdvReac Unknown GI UPSET Verified 01/15/20 06:39 Anti-Inflamma Home Medications Home Medications Medication Instructions Recorded Confirmed Type aspirin [Aspirin Low Dose] 81 mg PO QAM 04/02/18 01/15/20 History atorvastatin 40 mg PO HS 04/02/18 01/15/20 History carvedilol 12.5 mg PO BID 04/02/18 01/15/20 History fluoxetine [Prozac] 40 mg PO QAM 04/02/18 01/15/20 History furosemide [Lasix] 20 mg PO DAILY PRN 04/02/18 01/15/20 History gabapentin 300 mg PO TID 04/02/18 01/15/20 History hydralazine 50 mg PO TID 04/02/18 01/15/20 History hydroxychloroquine 200 mg PO BID 04/02/18 01/15/20 History metformin 500 mg PO BID 04/02/18 01/15/20 History nitroglycerin 1 dose TRANSLINGUAL DIRECTED PRN 04/02/18 01/15/20 History pantoprazole 40 mg PO QAM 04/02/18 01/15/20 History terazosin 2 mg PO HS 04/02/18 01/15/20 History amlodipine 5 mg PO QAM 03/29/19 01/15/20 History betamethasone dipropionate 1 applic TOPICAL BID PRN 03/29/19 01/15/20 History acetaminophen [Tylenol Extra 1,000 mg PO Q6H PRN 09/08/19 01/15/20 History Strength] levothyroxine 25 mcg PO QAM 09/08/19 01/15/20 History meclizine 12.5 mg tablet 0.5 mg PO Q8 PRN #30 tab 09/26/19 01/15/20 Rx oxycodone 5 mg PO Q6H PRN #20 tab 01/16/20 Rx tramadol 50 mg PO Q6H PRN #30 tab 01/16/20 Rx Patient History Medical History CAD (coronary artery disease) non-obstructive per 2017 cardiac cath Chronic back pain LLE radiculopathy CVA (cerebral vascular accident) 2017, residual unsteady, left sided weakness Depression Diabetes mellitus type 2 in nonobese NIDDM Diabetes mellitus, type II Dyslipidemia GERD (gastroesophageal reflux disease) Hiatal hernia History of breast cancer right breast HTN (hypertension) Hypothyroidism IBS (irritable bowel syndrome) Myocardial Infarction 1991 (PTCA/PCI to ramus intermedius complicated by spiral dissection) Osteoarthritis PAD (peripheral artery disease) severe right brachiocephalic stenosis and moderate to severe abdominal aortic stenosis- under surveillance by cardiovascular Rheumatoid arthritis Surgical History H/O repair of right rotator cuff 2013 History of back surgery 2019 History of bilateral knee arthroplasty Left (1995), right (2005) History of cardiac cath [facility]-2016 NO STENTS History of cholecystectomy 1998 History of colonoscopy History of modified radical mastectomy of right breast 2011 History of total knee replacement left revision Nasal fracture repair Status post renal artery angioplasty 1991 Family History Daughter Family history of reaction to anesthesia SLOW TO WAKE UP Mother Family history of diabetes mellitus Other Diabetes Heart disease Hypertension Social History Smoking Status: Former smoker Smoking End Date: QUIT 1991; Second Hand Exposure: No; Do You Dip or Chew Tobacco: No; Tobacco Cessation Education Requested by Patient: No Hx Alcohol Use: No Hx Substance Use: No Preferred Language: Divehi Communication Ability: Effective Visual Impairment: No Limitations Hearing Ability: Normal School Curriculum Developer Required: No Beliefs That Will Affect Care: None marital status: Current Living Situation: Spouse and Family current occupational status: retired Other Information That Helps Us Care for You: No Feels Safe at Home: Yes Safety Concerns: Feels Safe At This Time Review of Systems Review of Systems: All systems reviewed & are unremarkable except as noted in HPI & below Physical Exam Physical Exam: Patient examined in a bedside chair General: A&Ox3. NAD. Obese. HEENT: Normocephalic. Atraumatic. PER. Conjunctiva pink, sclera clear. Neck: Bilateral carotid bruits. No overt JVD. Heart: Irregularly irregular around 100 bpm. Grade II/ systolic murmur at the LLSB. No rub. No gallop. PMI is nondisplaced. Chest: + Chest wall pain. Lungs: Clear to auscultation. Abdomen: +BS. Extremities: No edema. No clubbing or cyanosis. Limited neurological examination is without focal deficits. Pulses: radial=2/4 on the right, 2/4 on the left. Posterior tibial pulses are 0/4. Results & Data ([facility]) Vital Signs (Past 12 Hours) Vital Signs Temp Pulse Pulse Pulse Resp BP Pulse Ox 01/19/20 08:06 36.9 C 73 19 169/71 H 96 01/19/20 04:30 36.8 C 75 20 166/87 H 95 01/19/20 04:03 37.2 C 108 H 18 131/87 94 01/19/20 01:55 116 H 01/19/20 00:05 95 01/19/20 00:04 36.7 C 114 H 24 154/70 H 91 01/18/20 23:18 37.1 C 79 18 158/79 H 91 Laboratory Results Laboratory Results - last 24 hr 01/18/20 01/18/20 01/18/20 11:49 17:03 20:36 WBC RBC Hgb Hct MCV MCH MCHC RDW Std Deviation RDW Coeff of Farheen Plt Count MPV Immature Gran % (Auto) Neut % (Auto) Lymph % (Auto) [place] % (Auto) Eos % (Auto) Baso % (Auto) Neut # (Auto) Lymph # (Auto) [place] # (Auto) Eos # (Auto) Baso # (Auto) Immature Gran # (Auto) Absolute Nucleated RBC Nucleated RBC % (auto) Sodium Potassium Chloride Carbon Dioxide Anion Gap BUN Creatinine Est Cr Clr Drug Dosing Est GFR ( Amer) Est GFR (Non-Af Amer) BUN/Creatinine Ratio Glucose POC Glucose 158 H 136 H 133 H Calcium Magnesium Troponin I Urine Color Urine Appearance Urine pH Ur Specific [place] Urine Protein Urine Glucose (UA) Urine Ketones Urine Blood Urine Nitrite Urine Bilirubin Urine Urobilinogen Ur Leukocyte Esterase Urine WBC (Auto) Urine RBC (Auto) U Hyaline Cast (Auto) U Epithel Cells (Auto) Urine Bacteria (Auto) 01/18/20 01/18/20 01/18/20 23:40 23:50 23:58 WBC 11.70 H RBC 2.92 L Hgb 9.3 L Hct 27.1 L MCV 92.8 MCH 31.8 MCHC 34.3 RDW Std Deviation 46.7 H RDW Coeff of Farheen 13.9 Plt Count 131 MPV 8.5 Immature Gran % (Auto) Neut % (Auto) Lymph % (Auto) [place] % (Auto) Eos % (Auto) Baso % (Auto) Neut # (Auto) Lymph # (Auto) [place] # (Auto) Eos # (Auto) Baso # (Auto) Immature Gran # (Auto) Absolute Nucleated RBC 0.02 H Nucleated RBC % (auto) 0.2 Sodium Potassium Chloride Carbon Dioxide Anion Gap BUN Creatinine Est Cr Clr Drug Dosing Est GFR ( Amer) Est GFR (Non-Af Amer) BUN/Creatinine Ratio Glucose POC Glucose 181 H Calcium Magnesium Troponin I Urine Color Yellow Urine Appearance Clear Urine pH 5.5 Ur Specific [place] 1.012 Urine Protein Trace H Urine Glucose (UA) Negative Urine Ketones Negative Urine Blood Trace H Urine Nitrite Negative Urine Bilirubin Negative Urine Urobilinogen Negative Ur Leukocyte Esterase Trace H Urine WBC (Auto) 1-5 Urine RBC (Auto) 0-4 U Hyaline Cast (Auto) 0 U Epithel Cells (Auto) 10-20 H Urine Bacteria (Auto) Negative 01/19/20 01/19/20 01/19/20 05:23 05:27 07:22 WBC 10.31 RBC 2.88 L Hgb 9.4 L Hct 27.8 L MCV 96.5 MCH 32.6 MCHC 33.8 RDW Std Deviation 46.7 H RDW Coeff of Farheen 13.6 Plt Count 156 MPV 8.5 Immature Gran % (Auto) 0.5 Neut % (Auto) 79.7 Lymph % (Auto) 8.4 [place] % (Auto) 11.0 Eos % (Auto) 0.3 Baso % (Auto) 0.1 Neut # (Auto) 8.22 H Lymph # (Auto) 0.87 L [place] # (Auto) 1.13 H Eos # (Auto) 0.03 Baso # (Auto) 0.01 Immature Gran # (Auto) 0.05 H Absolute Nucleated RBC Nucleated RBC % (auto) Sodium Potassium Chloride Carbon Dioxide Anion Gap BUN Creatinine Est Cr Clr Drug Dosing Est GFR ( Amer) Est GFR (Non-Af Amer) BUN/Creatinine Ratio Glucose POC Glucose 189 H Calcium Magnesium Troponin I 0.058 H* Urine Color Urine Appearance Urine pH Ur Specific [place] Urine Protein Urine Glucose (UA) Urine Ketones Urine Blood Urine Nitrite Urine Bilirubin Urine Urobilinogen Ur Leukocyte Esterase Urine WBC (Auto) Urine RBC (Auto) U Hyaline Cast (Auto) U Epithel Cells (Auto) Urine Bacteria (Auto) 01/19/20 08:12 WBC RBC Hgb Hct MCV MCH MCHC RDW Std Deviation RDW Coeff of Farheen Plt Count MPV Immature Gran % (Auto) Neut % (Auto) Lymph % (Auto) [place] % (Auto) Eos % (Auto) Baso % (Auto) Neut # (Auto) Lymph # (Auto) [place] # (Auto) Eos # (Auto) Baso # (Auto) Immature Gran # (Auto) Absolute Nucleated RBC Nucleated RBC % (auto) Sodium 133 L Potassium 3.4 L Chloride 96 L Carbon Dioxide 29 Anion Gap 8.0 BUN 16 Creatinine 0.83 Est Cr Clr Drug Dosing 77.3 Est GFR ( Amer) 79.9 Est GFR (Non-Af Amer) 69.0 BUN/Creatinine Ratio 19.4 Glucose 161 H POC Glucose Calcium 8.5 Magnesium 1.7 L Troponin I Urine Color Urine Appearance Urine pH Ur Specific [place] Urine Protein Urine Glucose (UA) Urine Ketones Urine Blood Urine Nitrite Urine Bilirubin Urine Urobilinogen Ur Leukocyte Esterase Urine WBC (Auto) Urine RBC (Auto) U Hyaline Cast (Auto) U Epithel Cells (Auto) Urine Bacteria (Auto)
[2020-01-19] MEDS: HYDROmorphone INJ 1 MG/ML SYRINGE IV PRN (12:08)
--- NOTE | 2020-01-19 13:07 | Orthopedic Progress Note ---
Date of Service January 19, 2020 Assessment & Plan (1) Neurogenic claudication due to lumbar spinal stenosis: At this time we will encourage her to continue with activity and ambulation as tolerated. Her postoperative course has been interrupted with atrial fibrillation. Present on Admission?: Yes Admission and Anticipated Discharge Date Admission Date: January 15, 2020 Subjective Patient is at the bedside chair. She denies any leg pain. Physical Exam Physical Exam: Patient is comfortable has good strength testing. Results & Data ([facility]) Vital Signs (Past 12 Hours) Vital Signs Temp Pulse Pulse Pulse Resp BP Pulse Ox 01/19/20 11:39 36.9 C 96 H 18 129/73 97 01/19/20 08:06 36.9 C 73 19 169/71 H 96 01/19/20 04:30 36.8 C 75 20 166/87 H 95 01/19/20 04:03 37.2 C 108 H 18 131/87 94 01/19/20 01:55 116 H
--- NOTE | 2020-01-19 16:00 | Electrocardiogram Report ---
Test Reason : Blood Pressure : / mmHG Vent. Rate : 117 BPM Atrial Rate : 060 BPM P-R Int : 000 ms QRS Dur : 094 ms QT Int : 344 ms P-R-T Axes : 000 063 025 degrees QTc Int : 479 ms Atrial fibrillation with rapid ventricular response Abnormal ECG When compared with ECG of 14-NOV-2018 10:06, Atrial fibrillation has replaced Sinus rhythm Vent. rate has increased BY 65 BPM Nonspecific T wave abnormality now evident in Inferior leads Confirmed by Isiah Shepherd ([id number]) on 01/19/2020 4:00:14 PM Referred By: Rashaad Street Confirmed By:Isiah Shepherd
--- NOTE | 2020-01-19 17:05 | Hospitalist Progress Note ---
Date of Service January 19, 2020 Assessment & Plan (1) Unspecified atrial fibrillation: Patient developed A. fib RVR on orthopedic floor, new diagnosis Heart rate was variable between 120/1 40s Patient remains asymptomatic Cardiology consulted, appreciate input Patient started on Lopressor 25 mg p.o. every 6 hours, Ordered for echo Continue to monitor in telemetry Given recent spinal surgery, therapeutic anticoagulation is contraindicated (2) Status post lumbar surgery: Post op day# 3 S/P L2-S1 decompression and fusion by Dr Street Participating in PT OT Orthopedics following closely Acute blood loss anemia due to post surgical status 970 cc BRITTNEY drainage Baseline Hgb 11.7, having dropped to 7.5. s/p transfusion of 2 units of PRBC Hemoglobin remained stable at 9 (3) HTN (hypertension): -Continue amlodipine, hydralazine, carvedilol, terazosin Added Lopressor for rapid A. fib RVR (4) Diabetes mellitus, type II: A1c: 6.4 on 01/03/2020 -Hold metformin BSG's within acceptable range Continue insulin regimen (5) CAD (coronary artery disease): -Continue aspirin, atorvastatin, carvedilol (6) Rheumatoid arthritis: Follows with Dr Dieudonne Rajan hydroxychloroquine Will be resumed after discharge from hospital (7) Depression: -Continue PPI DVT Prophylaxis -SCDs Thank you for this consultation. We will follow the patient with you during their hospital stay. You can reach a member of the [facility] Hospitalist Team 18/01 via pager @ [phone]. Admission and Anticipated Discharge Date Admission Date: January 15, 2020 Subjective Developed rapid A. fib RVR last night, transferred to PCU Denies of any complaint of shortness of breath palpitation dizzy spell or l ightheadedness Back pain well controlled No fever or chills No cough or shortness of breath Physical Exam Constitutional: WD/WN, vitals as above well developed; no acute distress Eyes: + anicteric sclerae ENMT: external ear and nose normal, oropharynx normal Neck: trachea midline, no thyromegaly Respiratory: normal respiratory effort, lungs clear to auscultation Cardiovascular: RRR, no murmur, no edema Gastrointestinal (Abdomen): Percussion/Palpation: abdomen soft; abdomen nontender Skin: no rashes, warm and dry Neurologic: PERRL, EOMI, accommodation nl, no face palsy, no dysarthria Psychiatric: A+Ox3, euthymic affect Results & Data Results & Data ([facility]) Vital Signs (Past 12 Hours) Vital Signs Temp Pulse Resp BP Pulse Ox 01/19/20 11:39 36.9 C 96 H 18 129/73 97 01/19/20 08:06 36.9 C 73 19 169/71 H 96
[2020-01-19] MEDS: OXYCODONE HCL IR 5 MG TAB (IMMEDIATE RELEASE) PO PRN ×2 (17:13→22:06)
[2020-01-19] MEDS: DOCUSATE SODIUM/SENNA 50/8.6MG TAB PO SCH (21:59)
[2020-01-19] MEDS: TERAZOSIN HCL 1 MG CAP PO SCH (22:05)
[2020-01-19] MEDS: ATORVASTATIN 40 MG TAB PO SCH (22:06)
[2020-01-19] MEDS: INSULIN GLARGINE SOLOSTAR 100 UNITS/ML 3 ML PEN SC SCH (22:14)
[2020-01-20] MEDS: LEVOTHYROXINE SODIUM 25 MCG TABLET PO SCH (06:39)
[2020-01-20 06:54] LABS: Hematocrit (blood only) 28.3 % (37-47); Hemoglobin 9.3 g/dL (12.0-16.0); Mean Corpuscular Hemoglobin 31.1 pg (25-34); Mean Corpuscular Hgb Conc 32.9 g/dL (32-36); Mean Corpuscular Volume 94.6 fL (80-100); Mean Platelet Volume 8.4 fL (7.4-10.4); Platelet Count 175 K/uL (130-400); RDW Coefficient of Variation 13.6 % (11.5-14.5); RDW Standard Deviation 46.8 fL (36.4-46.3); Red Blood Count 2.99 M/uL (4.2-5.4); White Blood Count 7.31 K/uL (4.8-10.8)
[2020-01-20 07:20] LABS: Creatinine Clr Calc Pharmacy 98.7 ml/min; Est GFR (African American) 100.7; Est GFR (Non-African American) 86.8; Magnesium 1.8 mg/dl (1.8-2.4); Potassium 3.5 mmol/L (3.5-5.1)
[2020-01-20] MEDS: OXYCODONE HCL IR 5 MG TAB (IMMEDIATE RELEASE) PO PRN ×3 (08:30→20:27)
[2020-01-20] MEDS: MAGNESIUM OXIDE 400 MG TAB PO SCH ×2 (08:30→20:27)
[2020-01-20] MEDS: PANTOprazole 40 MG TAB PO SCH (08:31)
[2020-01-20] MEDS: ASPIRIN 81 MG ECTAB PO SCH (08:31)
[2020-01-20] MEDS: HydrALAZINE TAB 50 MG TAB PO SCH ×3 (08:31→20:27)
[2020-01-20] MEDS: carvediloL 12.5 MG TAB PO SCH ×2 (08:31→20:27)
[2020-01-20] MEDS: AMLODIPINE BESYLATE 5 MG TAB PO SCH (08:32)
[2020-01-20] MEDS: FLUOXETINE HCL 20 MG CAP PO SCH (08:32)
[2020-01-20] MEDS: GABAPENTIN 300 MG CAP PO SCH ×3 (08:32→20:27)
[2020-01-20] MEDS: INSULIN ASPART 100 UNITS/ML 3 ML PEN SC SCH ×4 (08:33→21:18)
--- NOTE | 2020-01-20 09:42 | Orthopedic Progress Note ---
Date of Service January 20, 2020 Assessment & Plan (1) Neurogenic claudication due to lumbar spinal stenosis: At this time we will continue physical therapy as tolerated. Await for placement pending medicine's opinion. She may begin anticoagulation therapy. Present on Admission?: Yes Admission and Anticipated Discharge Date Admission Date: January 15, 2020 Subjective Patient complaining of back pain she denies leg pain. She is still ambulating with physical therapy. Physical Exam Physical Exam: Patient is in bed. She has good strength testing. Results & Data ([facility]) Vital Signs (Past 12 Hours) Vital Signs Temp Pulse Resp BP Pulse Ox 01/20/20 08:00 36.9 C 68 20 170/69 H 97 01/20/20 03:15 36.6 C 86 19 139/77 93 01/19/20 23:17 36.8 C 67 21 124/59 L 93
--- NOTE | 2020-01-20 09:59 | Cardiology Progress Note ---
Date of Service January 20, 2020 Assessment & Plan (1) Unspecified atrial fibrillation: (2) CAD (coronary artery disease): (3) Status post lumbar surgery: (4) Neurogenic claudication due to lumbar spinal stenosis: The patient converted to sinus rhythm this morning. As previously discussed she is high risk for long-term anticoagulation. I think it is best at this time that we continue her on aspirin only and provide DVT prophylaxis until discharge. Subjective The patient is resting comfortably. No ongoing complaints other than postsurgical pain. Review of Systems Review of Systems: All systems reviewed & are unremarkable except as noted in HPI & below Nothing additional to add. Physical Exam Physical Exam: General: no acute distress and stated age Head: normocephalic, no masses, lesions, tenderness or abnormalities Eyes: conjunctiva are pink and non-injected, sclera clear Neck: supple, no adenopathy, no bruits, normal jugular venous pulse, no hepatojugular reflux Chest: normal shape and normal respiratory effort Lungs: clear to auscultation and percussion Cardiac Exam: - regular rate & rhythm, no murmurs gallops or rubs - normal S1, normal S2 Pulses: 2(+) throughout Abdomen: abdomen soft, non-tender, no abnormal masses and no hepatosplenomegaly Musculoskeletal: no gait disturbance, no joint inflammation, no deforming arthritis Extremities: no edema and no cyanosis Neuro: grossly normal exam Results & Data Vital Signs (Past 12 Hours) Vital Signs Temp Pulse Resp BP Pulse Ox 01/20/20 08:00 36.9 C 68 20 170/69 H 97 01/20/20 03:15 36.6 C 86 19 139/77 93 01/19/20 23:17 36.8 C 67 21 124/59 L 93 Laboratory Results Laboratory Results - last 24 hr 01/19/20 01/19/20 01/19/20 11:01 11:42 16:17 WBC RBC Hgb Hct MCV MCH MCHC RDW Std Deviation RDW Coeff of Farheen Plt Count MPV Sodium Potassium Chloride Carbon Dioxide Anion Gap BUN Creatinine Est Cr Clr Drug Dosing Est GFR ( Amer) Est GFR (Non-Af Amer) BUN/Creatinine Ratio Glucose POC Glucose 151 H 142 H Calcium Magnesium Troponin I 0.040 01/19/20 01/20/20 01/20/20 20:12 06:23 06:23 WBC 7.31 RBC 2.99 L Hgb 9.3 L Hct 28.3 L MCV 94.6 MCH 31.1 MCHC 32.9 RDW Std Deviation 46.8 H RDW Coeff of Farheen 13.6 Plt Count 175 MPV 8.4 Sodium 135 L Potassium 3.5 Chloride 99 Carbon Dioxide 31 Anion Gap 5.0 BUN 14 Creatinine 0.65 Est Cr Clr Drug Dosing 98.7 Est GFR ( Amer) 100.7 Est GFR (Non-Af Amer) 86.8 BUN/Creatinine Ratio 22.0 H Glucose 128 H POC Glucose 174 H Calcium 8.0 L Magnesium 1.8 Troponin I 01/20/20 07:29 WBC RBC Hgb Hct MCV MCH MCHC RDW Std Deviation RDW Coeff of Farheen Plt Count MPV Sodium Potassium Chloride Carbon Dioxide Anion Gap BUN Creatinine Est Cr Clr Drug Dosing Est GFR ( Amer) Est GFR (Non-Af Amer) BUN/Creatinine Ratio Glucose POC Glucose 144 H Calcium Magnesium Troponin I Medications Administered Current Inpatient Medications Acetaminophen (Tylenol) 1,000 mg PO Q8H PRN PRN Reason: MILD Pain Scale 1,2,3 & Pre PT Stop: 02/14/20 12:37 Last Admin: 01/17/20 00:22 Dose: 1,000 mg Documented by: Al Hydrox/Mg Hydrox/Simethicone (Maalox) 30 ml PO Q6H PRN PRN Reason: Dyspepsia Stop: 02/14/20 12:37 Amlodipine Besylate (Norvasc) 5 mg PO [facility] Stop: 02/15/20 08:59 Last Admin: 01/20/20 08:32 Dose: 5 mg Documented by: Aspirin (Ecotrin Ectab) 81 mg PO [facility] Stop: 02/15/20 08:59 Last Admin: 01/20/20 08:31 Dose: 81 mg Documented by: Atorvastatin Calcium (Lipitor) 40 mg PO [facility] Stop: 02/14/20 20:59 Last Admin: 01/19/20 22:06 Dose: 40 mg Documented by: Betamethasone Dipropion Augmented (Diprolene 0.05%) 1 appln EXT BID PRN PRN Reason: REDNESS Stop: 02/14/20 12:53 Bisacodyl (Dulcolax) 10 mg [place] DAILY PRN PRN Reason: Constipation Stop: 02/14/20 12:37 Carvedilol (Coreg) 12.5 mg PO BID COUNT [facility] Stop: 02/14/20 20:59 Last Admin: 01/20/20 08:31 Dose: 12.5 mg Documented by: Dextrose (Dextrose 50%) 25 - 50 ml IV UD PRN; Protocol PRN Reason: Hypoglycemia Protocol Stop: 02/14/20 13:29 Diphenhydramine HCl (Benadryl Capsule) 25 mg PO Q6H PRN PRN Reason: Allergic Rhinitis/Insomnia Stop: 02/14/20 12:37 Enoxaparin Sodium (Lovenox) 40 mg SQ QAM [facility] Stop: 02/19/20 09:59 Famotidine (Pepcid) 20 mg PO Q12H PRN PRN Reason: Dyspepsia Stop: 02/14/20 12:37 Fluoxetine HCl (Prozac) 40 mg PO QAM COUNT [facility] Stop: 02/15/20 08:59 Last Admin: 01/20/20 08:32 Dose: 40 mg Documented by: Furosemide (Lasix) 20 mg PO DAILY PRN PRN Reason: Weight Gain Stop: 02/14/20 12:37 Gabapentin (Neurontin) 300 mg PO TID COUNT [facility] Stop: 02/14/20 13:59 Last Admin: 01/20/20 08:32 Dose: 300 mg Documented by: Glucagon (Glucagen) 1 mg IM UD PRN; Protocol PRN Reason: Hypoglycemia Protocol Stop: 02/14/20 13:29 Glucose (Glucose 40%) 15 - 30 gm PO UD PRN; Protocol PRN Reason: Hypoglycemia Protocol Stop: 02/14/20 13:29 Glucose (Dex4 Glucose) 4 - 8 tabs PO UD PRN; Protocol PRN Reason: Hypoglycemia Protocol Stop: 02/14/20 13:29 Hydralazine HCl (Apresoline) 50 mg PO TID COUNT [facility] Stop: 02/14/20 13:59 Last Admin: 01/20/20 08:31 Dose: 50 mg Documented by: Hydromorphone HCl (Dilaudid) 0.5 mg IV Q3H PRN PRN Reason: MOD pain (scale 4-6) & Pre PT Stop: 01/29/20 12:37 Last Admin: 01/16/20 08:39 Dose: 0.5 mg Documented by: Hydromorphone HCl (Dilaudid) 1 mg IV Q3H PRN PRN Reason: severe pain (scale 7-10) Stop: 01/29/20 12:37 Last Admin: 01/19/20 12:08 Dose: 1 mg Documented by: Hydroxychloroquine Sulfate (Plaquenil) 200 mg PO BID COUNT [facility] Stop: 02/14/20 20:59 Last Admin: 01/16/20 08:50 Dose: 200 mg Documented by: Hydroxyzine HCl (Vistaril) 25 mg PO Q8H PRN PRN Reason: Anxiety Stop: 02/14/20 12:37 Promethazine HCl 12.5 mg/ (Sodium Chloride) 50.5 mls @ 204 mls/hr IV Q6H PRN PRN Reason: Nausea &/or Vomiting Stop: 02/14/20 12:37 Lorazepam (Ativan) 0.5 mg in 1 mls @ 0.5 mls/min IV Q8H PRN PRN Reason: Sedation/Anxiety Stop: 02/14/20 12:37 Influenza Virus Vaccine Quadrival (Flu Vaccine, Do Not Administer) 1 ea N/A PRN PRN PRN Reason: Notification Stop: 02/14/20 12:37 Insulin Aspart (Novolog Flexpen) 0 units SC [facility] Stop: 02/14/20 13:29 Last Admin: 01/20/20 08:33 Dose: 6 units Documented by: Insulin Glargine (Lantus Solostar Pen) 0 units SC [facility]; Protocol Stop: 02/14/20 20:59 Last Admin: 01/19/20 22:14 Dose: 10 units Documented by: Ioversol (Optiray 320 125ml) 125 ml IV ONCE PRN PRN Reason: Interaction Checking Stop: 01/23/20 02:53 Last Admin: 01/19/20 02:54 Dose: 112 ml Documented by: [facility]othy[facility]ine [facility]) [facility]: 02/15/20 06:29 Last Admin: 01/20/20 06:39 Dose: 25 mcg Documented by: Lorazepam (Ativan) 0.5 mg PO Q8H PRN PRN Reason: Sedation/Anxiety Stop: 02/14/20 12:37 Magnesium Hydroxide (Milk Of Magnesia) 30 ml PO DAILY PRN PRN Reason: Constipation Stop: 02/14/20 12:37 Magnesium Oxide (Mag-Ox) 400 mg PO BID COUNT [facility]CLUD[facility] Stop: 02/15/20 20:59 Last Admin: 01/20/20 08:30 Dose: 400 mg Documented by: Meclizine HCl (Antivert) 6.25 mg PO Q8H PRN PRN Reason: Dizziness Stop: 02/14/20 12:37 Metoprolol Tartrate (Lopressor) 2.5 mg IV Q4 PRN PRN Reason: Tachycardia Stop: 02/18/20 05:03 Miscellaneous (Carbohydrates For Hypoglycemia) 15 - 30 gm PO UD PRN PRN Reason: Hypoglycemia Treatment Stop: 02/14/20 13:29 Naloxone HCl (Narcan) 0.1 mg IV Q5M PRN; Protocol PRN Reason: Oversedation/Resp Depression Stop: 02/14/20 12:37 Nitroglycerin (Nitrolingual) 1 sprays SL UD PRN PRN Reason: CHEST PAIN Stop: 02/14/20 12:52 Ondansetron HCl (Zofran) 4 mg IV Q6H PRN PRN Reason: Nausea &/or Vomiting Stop: 02/14/20 12:37 Last Admin: 01/16/20 07:39 Dose: 4 mg Documented by: Ondansetron HCl (Zofran Odt) 4 mg PO Q6H PRN PRN Reason: Nausea Stop: 02/14/20 12:37 Oxycodone HCl (Roxicodone Immediate Rel) 5 - 10 mg PO Q4H PRN PRN Reason: Moderate-Severe Pain & Pre PT Stop: 01/29/20 12:37 Last Admin: 01/20/20 08:30 Dose: 10 mg Documented by: Pantoprazole Sodium (Protonix) 40 mg PO QAM COUNT [facility]CLUDES [facility] Stop: 02/15/20 08:59 Last Admin: 01/20/20 08:31 Dose: 40 mg Documented by: Pneumococcal Polyvalent Vaccine (Pneumococcal Vacc, Do Not Administer) 1 ea N/A PRN PRN PRN Reason: Notification Stop: 02/14/20 12:37 Senna/Docusate Sodium (Senokot S) 2 tab PO HS COUNT INCLUDES [facility] Stop: 02/14/20 20:59 Last Admin: 01/19/20 21:59 Dose: Not Given Documented by: Sodium Biphosphate/Sodium Phosphate (Fleet Enema) 132 ml [place] ONE PRN PRN Reason: Constipation Stop: 02/14/20 12:37 Terazosin HCl (Hytrin) 2 mg PO HS [facility] Stop: 02/14/20 20:59 Last Admin: 01/19/20 22:05 Dose: 2 mg Documented by: Tramadol HCl (Ultram) 50 - 100 mg PO Q4H PRN PRN Reason: Moderate-Severe Pain & Pre PT Stop: 02/14/20 12:37 Last Admin: 01/19/20 09:53 Dose: 100 mg Documented by:
[2020-01-20] MEDS: ENOXAPARIN INJ 40 MG/0.4 ML SYR SQ SCH (11:54)
--- NOTE | 2020-01-20 18:35 | Hospitalist Progress Note ---
Date of Service January 20, 2020 Assessment & Plan (1) Unspecified atrial fibrillation: Assessment A. fib: Patient developed A. fib RVR on orthopedic floor, new diagnosis Converted to normal sinus rhythm earlier today Patient remains asymptomatic Cardiology consulted, appreciate input Continue to monitor in telemetry Given recent spinal surgery, therapeutic anticoagulation is contraindicated (2) Status post lumbar surgery: Post op day# 4 S/P L2-S1 decompression and fusion by Dr Street Participating in PT OT Orthopedics following closely Acute blood loss anemia s/p transfusion of 2 units of PRBC Hemoglobin remained stable at 9 (3) HTN (hypertension): -Continue amlodipine, hydralazine, carvedilol, terazosin (4) Diabetes mellitus, type II: A1c: 6.4 on 01/03/2020 -Hold metformin BSG's within acceptable range Continue insulin regimen (5) CAD (coronary artery disease): -Continue aspirin, atorvastatin, carvedilol (6) Rheumatoid arthritis: Follows with Dr Bro Hold hydroxychloroquine Will be resumed after discharge from hospital (7) Depression: -Continue PPI DVT Prophylaxis -SCDs Thank you for this consultation. We will follow the patient with you during their hospital stay. You can reach a member of the [facility] Hospitalist Team 18/01 via pager @ [phone]. Admission and Anticipated Discharge Date Admission Date: January 15, 2020 Subjective Acute sinus with rate controlled earlier today, Telemetry shows normal sinus heart rate between 7080s Patient sitting up on chair, Denies of any discomfort, no chest pain no shortness of breath or palpitation Complains of back pain, no fever chills or cough Physical Exam Constitutional: WD/WN, vitals as above well developed; no acute distress Eyes: + anicteric sclerae ENMT: external ear and nose normal, oropharynx normal Neck: trachea midline, no thyromegaly Respiratory: normal respiratory effort, lungs clear to auscultation Cardiovascular: RRR, no murmur, no edema Gastrointestinal (Abdomen): Percussion/Palpation: abdomen soft; abdomen nontender Skin: no rashes, warm and dry Neurologic: PERRL, EOMI, accommodation nl, no face palsy, no dysarthria Psychiatric: A+Ox3, euthymic affect Results & Data Results & Data ([place]) Vital Signs (Past 12 Hours) Vital Signs Temp Pulse Resp BP Pulse Ox 07/25/20 15:26 36.8 C 66 19 172/76 H 95 01/20/20 08:00 36.9 C 68 20 170/69 H 97
[2020-01-20] MEDS: ATORVASTATIN 40 MG TAB PO SCH (20:27)
[2020-01-20] MEDS: TERAZOSIN HCL 1 MG CAP PO SCH (20:27)
[2020-01-20] MEDS: INSULIN GLARGINE SOLOSTAR 100 UNITS/ML 3 ML PEN SC SCH (21:19)
[2020-01-20] MEDS: DOCUSATE SODIUM/SENNA 50/8.6MG TAB PO SCH (23:10)
[2020-01-21] MEDS: LEVOTHYROXINE SODIUM 25 MCG TABLET PO SCH (06:34)
[2020-01-21 07:20] LABS: Hematocrit (blood only) 28.3 % (37-47); Hemoglobin 9.3 g/dL (12.0-16.0); Mean Corpuscular Hemoglobin 31.1 pg (25-34); Mean Corpuscular Hgb Conc 32.9 g/dL (32-36); Mean Corpuscular Volume 94.6 fL (80-100); Mean Platelet Volume 8.6 fL (7.4-10.4); Platelet Count 180 K/uL (130-400); RDW Coefficient of Variation 13.5 % (11.5-14.5); RDW Standard Deviation 46.6 fL (36.4-46.3); Red Blood Count 2.99 M/uL (4.2-5.4); White Blood Count 7.87 K/uL (4.8-10.8)
[2020-01-21 07:47] LABS: BUN Creatinine Ratio 22.5 (10-20); Calcium 8.4 mg/dl (8.5-10.1); Creatinine Clr Calc Pharmacy 103.5 ml/min; Est GFR (African American) 102.2; Est GFR (Non-African American) 88.2; Magnesium 1.8 mg/dl (1.8-2.4); Potassium 3.6 mmol/L (3.5-5.1)
[2020-01-21] MEDS: INSULIN ASPART 100 UNITS/ML 3 ML PEN SC SCH ×2 (08:17→12:23)
[2020-01-21] MEDS: ASPIRIN 81 MG ECTAB PO SCH (08:19)
[2020-01-21] MEDS: ENOXAPARIN INJ 40 MG/0.4 ML SYR SQ SCH (08:19)
[2020-01-21] MEDS: carvediloL 12.5 MG TAB PO SCH (08:19)
[2020-01-21] MEDS: HydrALAZINE TAB 50 MG TAB PO SCH ×2 (08:19→13:09)
[2020-01-21] MEDS: ACETAMINOPHEN 500 MG TAB PO PRN (08:21)
[2020-01-21] MEDS: MAGNESIUM OXIDE 400 MG TAB PO SCH (08:23)
[2020-01-21] MEDS: AMLODIPINE BESYLATE 5 MG TAB PO SCH (08:24)
[2020-01-21] MEDS: FLUOXETINE HCL 20 MG CAP PO SCH (08:24)
[2020-01-21] MEDS: GABAPENTIN 300 MG CAP PO SCH ×2 (08:24→13:09)
[2020-01-21] MEDS: PANTOprazole 40 MG TAB PO SCH (08:24)
--- NOTE | 2020-01-21 10:03 | Cardiology Progress Note ---
Date of Service January 21, 2020 Assessment & Plan (1) PAF (paroxysmal atrial fibrillation): (2) Status post lumbar surgery: (3) Neurogenic claudication due to lumbar spinal stenosis: The patient has maintained sinus rhythm now for over 24 hours. I would recommend continuing her current medications including an aspirin daily. Subjective The patient had an uneventful night. She is sitting comfortably on the edge of the bed with her present in the room. Review of Systems Review of Systems: All systems reviewed & are unremarkable except as noted in HPI & below Nothing additional to add. Physical Exam Physical Exam: General: no acute distress and stated age Head: normocephalic, no masses, lesions, tenderness or abnormalities Eyes: conjunctiva are pink and non-injected, sclera clear Neck: supple, no adenopathy, no bruits, normal jugular venous pulse, no hepatojugular reflux Chest: normal shape and normal respiratory effort Lungs: clear to auscultation and percussion Cardiac Exam: - regular rate & rhythm, no murmurs gallops or rubs - normal S1, normal S2 Pulses: 2(+) throughout Abdomen: abdomen soft, non-tender, no abnormal masses and no hepatosplenomegaly Musculoskeletal: no gait disturbance, no joint inflammation, no deforming arthritis Extremities: no edema and no cyanosis Neuro: grossly normal exam Results & Data Vital Signs (Past 12 Hours) Vital Signs Temp Pulse Resp BP Pulse Ox 01/21/20 07:21 37.0 C 66 18 152/92 H 94 01/21/20 03:12 36.4 C L 64 18 139/74 92 01/20/20 23:18 36.8 C 67 21 169/81 H 95 Laboratory Results Laboratory Results - last 24 hr 01/20/20 01/20/20 01/20/20 11:33 16:04 20:42 WBC RBC Hgb Hct MCV MCH MCHC RDW Std Deviation RDW Coeff of Farheen Plt Count MPV Sodium Potassium Chloride Carbon Dioxide Anion Gap BUN Creatinine Est Cr Clr Drug Dosing Est GFR ( Amer) Est GFR (Non-Af Amer) BUN/Creatinine Ratio Glucose POC Glucose 96 138 H 119 H Calcium Magnesium 01/21/20 01/21/20 01/21/20 06:33 06:33 07:19 WBC 7.87 RBC 2.99 L Hgb 9.3 L Hct 28.3 L MCV 94.6 MCH 31.1 MCHC 32.9 RDW Std Deviation 46.6 H RDW Coeff of Farheen 13.5 Plt Count 180 MPV 8.6 Sodium 134 L Potassium 3.6 Chloride 98 Carbon Dioxide 30 Anion Gap 6.0 BUN 14 Creatinine 0.62 Est Cr Clr Drug Dosing 103.5 Est GFR ( Amer) 102.2 Est GFR (Non-Af Amer) 88.2 BUN/Creatinine Ratio 22.5 H Glucose 129 H POC Glucose 154 H Calcium 8.4 L Magnesium 1.8 Medications Administered Current Inpatient Medications Acetaminophen (Tylenol) 1,000 mg PO Q8H PRN PRN Reason: MILD Pain Scale 1,2,3 & Pre PT Stop: 02/14/20 12:37 Last Admin: 01/21/20 08:21 Dose: 1,000 mg Documented by: Al Hydrox/Mg Hydrox/Simethicone (Maalox) 30 ml PO Q6H PRN PRN Reason: Dyspepsia Stop: 02/14/20 12:37 Amlodipine Besylate (Norvasc) 5 mg PO QAM [facility] Stop: 02/15/20 08:59 Last Admin: 01/21/20 08:24 Dose: 5 mg Documented by: Aspirin (Ecotrin Ectab) 81 mg PO QAM [facility] Stop: 02/15/20 08:59 Last Admin: 01/21/20 08:19 Dose: 81 mg Documented by: Atorvastatin Calcium (Lipitor) 40 mg PO HS [facility] Stop: 02/14/20 20:59 Last Admin: 01/20/20 20:27 Dose: 40 mg Documented by: Betamethasone Dipropion Augmented (Diprolene 0.05%) 1 appln EXT BID PRN PRN Reason: REDNESS Stop: 02/14/20 12:53 Bisacodyl (Dulcolax) 10 mg [place] DAILY PRN PRN Reason: Constipation Stop: 02/14/20 12:37 Carvedilol (Coreg) 12.5 mg PO BID [facility] Stop: 02/14/20 20:59 Last Admin: 01/21/20 08:19 Dose: 12.5 mg Documented by: Dextrose (Dextrose 50%) 25 - 50 ml IV UD PRN; Protocol PRN Reason: Hypoglycemia Protocol Stop: 02/14/20 13:29 Diphenhydramine HCl (Benadryl Capsule) 25 mg PO Q6H PRN PRN Reason: Allergic Rhinitis/Insomnia Stop: 02/14/20 12:37 Enoxaparin [facility] ([facility]) [facility] Stop: 02/19/20 10:14 Last Admin: 01/21/20 08:19 Dose: 40 mg Documented by: Famotidine (Pepcid) 20 mg PO Q12H PRN PRN Reason: Dyspepsia Stop: 02/14/20 12:37 Fluoxetine HCl (Prozac) 40 mg PO QAM [facility] Stop: 02/15/20 08:59 Last Admin: 01/21/20 08:24 Dose: 40 mg Documented by: Furosemide (Lasix) 20 mg PO DAILY PRN PRN Reason: Weight Gain Stop: 02/14/20 12:37 Gabapentin (Neurontin) 300 mg PO TID [facility] Stop: 02/14/20 13:59 Last Admin: 01/21/20 08:24 Dose: 300 mg Documented by: Glucagon (Glucagen) 1 mg IM UD PRN; Protocol PRN Reason: Hypoglycemia Protocol Stop: 02/14/20 13:29 Glucose (Glucose 40%) 15 - 30 gm PO UD PRN; Protocol PRN Reason: Hypoglycemia Protocol Stop: 02/14/20 13:29 Glucose (Dex4 Glucose) 4 - 8 tabs PO UD PRN; Protocol PRN Reason: Hypoglycemia Protocol Stop: 02/14/20 13:29 Hydralazine HCl (Apresoline) 50 mg PO TID [facility] Stop: 02/14/20 13:59 Last Admin: 01/21/20 08:19 Dose: 50 mg Documented by: Hydromorphone HCl (Dilaudid) 0.5 mg IV Q3H PRN PRN Reason: MOD pain (scale 4-6) & Pre PT Stop: 01/29/20 12:37 Last Admin: 01/16/20 08:39 Dose: 0.5 mg Documented by: Hydromorphone HCl (Dilaudid) 1 mg IV Q3H PRN PRN Reason: severe pain (scale 7-10) Stop: 01/29/20 12:37 Last Admin: 01/19/20 12:08 Dose: 1 mg Documented by: Hydroxychloroquine Sulfate (Plaquenil) 200 mg PO BID [facility] Stop: 02/14/20 20:59 Last Admin: 01/16/20 08:50 Dose: 200 mg Documented by: Hydroxyzine HCl (Vistaril) 25 mg PO Q8H PRN PRN Reason: Anxiety Stop: 02/14/20 12:37 Promethazine HCl 12.5 mg/ (Sodium Chloride) 50.5 mls @ 204 mls/hr IV Q6H PRN PRN Reason: Nausea &/or Vomiting Stop: 02/14/20 12:37 Lorazepam (Ativan) 0.5 mg in 1 mls @ 0.5 mls/min IV Q8H PRN PRN Reason: Sedation/Anxiety Stop: 02/14/20 12:37 Influenza Virus Vaccine Quadrival (Flu Vaccine, Do Not Administer) 1 ea N/A PRN PRN PRN Reason: Notification Stop: 02/14/20 12:37 Insulin Aspart (Novolog Flexpen) 0 units SC [facility] Stop: 02/14/20 13:29 Last Admin: 01/21/20 08:17 Dose: 8 units Documented by: Insulin Glargine (Lantus Solostar Pen) 0 units SC [facility]; Protocol Stop: 02/14/20 20:59 Last Admin: 01/20/20 21:19 Dose: Not Given Documented by: Ioversol (Optiray 320 125ml) 125 ml IV ONCE PRN PRN Reason: Interaction Checking Stop: 01/23/20 02:53 Last Admin: 01/19/20 02:54 Dose: 112 ml Documented by: Levothyroxine Sodium (Synthroid) 25 mcg PO DAILYBB [facility] Stop: 02/15/20 06:29 Last Admin: 01/21/20 06:34 Dose: 25 mcg Documented by: Lorazepam (Ativan) 0.5 mg PO Q8H PRN PRN Reason: Sedation/Anxiety Stop: 02/14/20 12:37 Magnesium Hydroxide (Milk Of Magnesia) 30 ml PO DAILY PRN PRN Reason: Constipation Stop: 02/14/20 12:37 Magnesium Oxide (Mag-Ox) 400 mg PO BID [facility] Stop: 02/15/20 20:59 Last Admin: 01/21/20 08:23 Dose: 400 mg Documented by: Meclizine HCl (Antivert) 6.25 mg PO Q8H PRN PRN Reason: Dizziness Stop: 02/14/20 12:37 Metoprolol Tartrate (Lopressor) 2.5 mg IV Q4 PRN PRN Reason: Tachycardia Stop: 02/18/20 05:03 Miscellaneous (Carbohydrates For Hypoglycemia) 15 - 30 gm PO UD PRN PRN Reason: Hypoglycemia Treatment Stop: 02/14/20 13:29 Naloxone HCl (Narcan) 0.1 mg IV Q5M PRN; Protocol PRN Reason: Oversedation/Resp Depression Stop: 02/14/20 12:37 Nitroglycerin (Nitrolingual) 1 sprays SL UD PRN PRN Reason: CHEST PAIN Stop: 02/14/20 12:52 Ondansetron HCl (Zofran) 4 mg IV Q6H PRN PRN Reason: Nausea &/or Vomiting Stop: 02/14/20 12:37 Last Admin: 01/16/20 07:39 Dose: 4 mg Documented by: Ondansetron HCl (Zofran Odt) 4 mg PO Q6H PRN PRN Reason: Nausea Stop: 02/14/20 12:37 Oxycodone HCl (Roxicodone Immediate Rel) 5 - 10 mg PO Q4H PRN PRN Reason: Moderate-Severe Pain & Pre PT Stop: 01/29/20 12:37 Last Admin: 01/20/20 20:27 Dose: 10 mg Documented by: Pantoprazole Sodium (Protonix) 40 mg PO [facility] Stop: 02/15/20 08:59 Last Admin: 01/21/20 08:24 Dose: 40 mg Documented by: Pneumococcal Polyvalent Vaccine (Pneumococcal Vacc, Do Not Administer) 1 ea N/A PRN PRN PRN Reason: Notification Stop: 02/14/20 12:37 Senna/Docusate Sodium (Senokot S) 2 tab PO [facility] Stop: 02/14/20 20:59 Last Admin: 01/20/20 23:10 Dose: Not Given Documented by: Sodium Biphosphate/Sodium Phosphate (Fleet Enema) 132 ml [place] ONE PRN PRN Reason: Constipation Stop: 02/14/20 12:37 Terazosin HCl (Hytrin) 2 mg PO HS [facility] Stop: 02/14/20 20:59 Last Admin: 01/20/20 20:27 Dose: 2 mg Documented by: Tramadol HCl (Ultram) 50 - 100 mg PO Q4H PRN PRN Reason: Moderate-Severe Pain & Pre PT Stop: 02/14/20 12:37 Last Admin: 01/19/20 09:53 Dose: 100 mg Documented by:
--- NOTE | 2020-01-21 11:11 | Discharge Summary ---
Date of Service January 21, 2020 Admission HPI Per Admitting Provider This is a 74-year-old female presents with chronic persistent back and bilateral leg pain. After an extensive course of nonoperative care is here for surgical invention. Principal Diagnosis Lumbar spinal stenosis with neurogenic claudication Discharge Data Allergies Allergy/AdvReac Type Severity Reaction Status Date / Time nadolol AdvReac Unknown GI UPSET Verified 01/15/20 06:39 nitroglycerin AdvReac Unknown HEADACHE Verified 01/15/20 06:39 NSAIDS (Non-Steroidal AdvReac Unknown GI UPSET Verified 01/15/20 06:39 Anti-Inflamma Consultations 01/15/20 12:38 Consult Case Management - Discharge Planning Routine Consult Hospitalist Routine 01/19/20 08:00 Consult Cardiology Routine Procedures Performed Operation Date: 01/15/20 07:45 Actual Procedures p L2-S1 Decompression and Fusion, L3-L4, L4-L5, L5-S1 Interbody Fusion, Spinal Cord Monitoring(Not Applicable) - Rashaad Street DO Ordered Studies 01/15/20 07:45 FL fluoroscopy <1hr Routine FL lumbar spine 2-3V Routine 01/19/20 02:08 CT angio chest PE protocol Urgent Hospital Course (1) Neurogenic claudication due to lumbar spinal stenosis: Patient underwent multilevel lumbar decompression fusion tolerated this well was taken to the orthopedic floor possibly. Postop day #1 she was tolerating therapy progressed to postop day #2 and 3 with steady progress however she had an episode of atrial fibrillation and was taken to the ICU. She did return to sinus was stable cleared by cardiology and subsequently discharged home. Day of discharge she is up and standing good strength testing pain well controlled. Discharge orders instructions can be found in chart for further review. Total Time Total Time Spent Total Time Spent (In Minutes): 20 minutes Discharge Plan Discharge Items Patient Disposition: Home - Home Health Services Reason For Visit: Spondylolisthesis, Lumbar Region Discharge Diagnosis: Lumbar spinal stenosis with spondylolisthesis Activity: As commented below Non-emergency contact: Primary Care Provider Call non-emergency contact if: you have any medication questions Follow-up/Referrals: Derrek Sparks MD [Primary Care Provider] - Diet: Regular Addtl Attending Provider Instructions: ACTIVITY RECOMMENDATIONS: SELF CARE INSTRUCTIONS AFTER THORACIC/LUMBAR FUSIONS 1. You may walk to your tolerance. It is good exercise for your legs and back. Expect some back and intermittent leg aches and pains. 2. You may perform "counter-top" level activities (make a sandwich, gal with a project, etc.). 3. No bending or lifting of more than 10 pounds or back twisting of any nature (roll like a log when turning in bed). 4. You may ride in a car for 20-30 minutes at a time. No driving until after your first visit with your doctor. 5. Frequent changes of position and restricting sitting to 30 minutes at a time will help limit the amount of back spasms and stiffness you may experience. 6. You may discontinue the use of ambulatory aids (cane, crutches, etc.) once your strength and confidence allow. 7. You may straight line press setter the shower and let water strike your incision when you arrive home at least once daily. Do not take a tub bath, sit in a hot tub or go into a swimming pool until after your first recheck in the office. SPECIAL CARE INSTRUCTIONS: VERY IMPORTANT TO READ AND REVIEW A. Your surgical incision has been closed with a cosmetic suture under the skin that will dissolve in about 6 weeks. In 14 days, you can use a pair of clean scissors and cut the suture that is left outside of the skin at the ends of your incision. 1. The small skin tapes can be removed 7 days after surgery if they have not fallen off by that point. 2. You may keep the wound open to air as much as possible to promote healing after post-op day number 5 unless told otherwise by your doctor. 3. If you think the wound looks like it is becoming infected (redness or worsening drainage) and/or you are experiencing fever, chill or worsening back pain and muscle spasms, contact the office so that we may evaluate you as soon as possible. B. Complications are uncommon, but please contact us if you have any signs or symptoms of: 1. wound infection (fever higher than 102.5 degrees F, redness, separation of wound, drainage, or increasing pain from the incision) 2. blood clots in legs (pain, swelling, redness and warmth in legs) 3. urinary tract infection (fever higher than 102.5 degrees F, burning upon urination or increased frequency of urination) 4. nerve problems (inability to walk on your toes or heels, numbness, loss of bowel or bladder control) 5. any other symptoms that concern you C. Please call the office at if you have any concerns or questions about your operation or recovery. D. No smoking! Smoking drastically decreases the chance of a solid fusion. E. Do not take any anti-inflammatory medications (Indocin, Advil, Motrin, Aspirin, Naprosyn, etc.) as these may inhibit the chance of a solid fusion. Tylenol is okay to take for pain. MANAGING PAIN AFTER SPINAL SURGERY 1. Narcotic medication is intended for short-term use and will be provided for surgical pain. Surgical pain usually lasts for a period of 4-6 weeks. Narcotic medication includes Percocet, Vicodin, Darvocet, Tylenol #3 or Lortab. 2. Longer-term pain is more appropriately treated with non-narcotic medication such as Tylenol ES. 3. Muscle spasm is not appropriately treated with narcotics. Muscle relaxers such as Soma, Flexeril or Skelaxin can be used along with Tylenol ES. 4. Remember that we all live with some "aches and pains". This is not unusual or uncommon after an injury or as we get older. a. Back pain is expected and may include muscle spasms for 4 to 6 weeks after surgery. The pain should gradually improve. If the pain worsens for no apparent reason, please contact the office. b. Intermittent leg pain may also be experienced and should not be concerned about unless it worsens for no apparent reason. If so, please contact the office. 5. We will provide appropriate medication within the normal guidelines of their prescribed use. We will also be very cautious and aware of potential abuse and extended duration of patients' medication needs. a. Pain medications are for your comfort and to assist with sleep and rest so that the tissue can heal. They are not provided in order to return to normal activity and should not be used through the day. To do so or worsening pain at night can result from ongoing tissue damage and development of tolerance to the prescribed medicine. 6. Please allow 2-3 days to process refills. Prescriptions will not be mailed but must be picked up at the office. FOLLOW UP VISIT: Keep your scheduled follow-up appointment. Any questions, please call the office at . Pending Studies at Discharge: No Stand-Alone Forms: [place], Smoking Cessation Medications and DC Order Prescriptions: New tramadol 50 mg tablet 50 mg PO Q6H PRN (Reason: pain, moderate) Qty: 30 RF: 0 oxycodone 5 mg tablet 5 mg PO Q6H PRN (Reason: pain, severe) Qty: 20 RF: 0 Continued meclizine 12.5 mg tablet 0.5 mg PO Q8 PRN (Reason: Dizziness) Qty: 30 RF: 0 fluoxetine [Prozac] 40 mg Capsule 40 mg PO QAM RF: 0 atorvastatin 40 mg Tablet 40 mg PO HS RF: 0 metformin 500 mg Tablet 500 mg PO BID RF: 0 carvedilol 6.25 mg Tablet 12.5 mg PO BID RF: 0 nitroglycerin 400 mcg/spray Aerosol,[place] 1 dose Translingual DIRECTED PRN (Reason: Chest Pain) RF: 0 aspirin [Aspirin Low Dose] 81 mg Tablet,Delayed Release (Dr/Ec) 81 mg PO QAM RF: 0 terazosin 2 mg Capsule 2 mg PO HS RF: 0 pantoprazole 40 mg tablet,delayed release (DR/EC) 40 mg PO QAM RF: 0 gabapentin 300 mg Capsule 300 mg PO TID RF: 0 hydralazine 50 mg Tablet 50 mg PO TID RF: 0 furosemide [Lasix] 20 mg Tablet 20 mg PO DAILY PRN (Reason: Weight Gain) RF: 0 hydroxychloroquine 200 mg tablet 200 mg PO BID RF: 0 amlodipine 5 mg Tablet 5 mg PO QAM RF: 0 betamethasone dipropionate 0.05 % Cream 1 applic TOPICAL BID PRN (Reason: redness) RF: 0 acetaminophen [Tylenol Extra Strength] 500 mg Tablet 1,000 mg PO Q6H PRN (Reason: Pain) RF: 0 levothyroxine 25 mcg Capsule 25 mcg PO QAM RF: 0 Discharge Orders: Discharge Order (Routine); Ordered 01/21/20 Ordered By: Rashaad Irving/Other Patient Handouts: Managing Type 2 Diabetes Admission Data Admit Date/Time: 01/15/20 11:04 Attending Provider: Litzy Ayala Admit Provider: Rashaad Street Primary Care Provider: Derrek Sparks Other Providers: Guilherme Barton ; [place] ; Juan Lora ; Mitesh Ac
[2020-01-21] MEDS: OXYCODONE HCL IR 5 MG TAB (IMMEDIATE RELEASE) PO PRN (12:28)
== END 2020-01-21 13:28 | disposition home health service (06) | DRG 454 ==
LOC: ASU 06:10 → 3E 11:04 → SUATTDRO 11:04 → 2E 01-19 04:42

== ENCOUNTER 2020-01-29 09:43 | Inpatient (IN) ==
[2020-01-29] MEDS ORDERED: HYDROmorphone INJ 1 MG/ML SYRINGE IV STA ×2 (10:18→12:33)
[2020-01-29] MEDS ORDERED: ONDANSETRON INJ 2 MG/ML 2 ML VIAL IV STA (10:18)
--- NOTE | 2020-01-29 10:46 | Emergency Department Note ---
History of Present Illness General Chief Complaint: Back Injury/Pain Stated Complaint: back pain- sx came home sun doc ref. Time Seen by Provider: 01/29/20 10:11 History of Present Illness Provider Complaint: back pain Onset (ago): day(s) 5 Duration: constant Similar Symptoms Previously: No Location: lumbar spine Quality: + sharp Radiation: none Severity: severe Current Pain Intensity: 10 Relieved By: + none Exacerbated By: + none Context: + other (Recent surgery on January [address]) Associated symptoms: + weakness, + difficulty walking, + urinary incontinence and + fecal incontinence; no loss of sensation in lower extremities, no fever, no chills, no dysuria and no hematuria Home Medications Home Medications Medication Instructions Recorded Confirmed Type aspirin [Aspirin Low Dose] 81 mg PO QAM 04/02/18 01/29/20 History atorvastatin 40 mg PO HS 04/02/18 01/29/20 History carvedilol 12.5 mg PO BID 04/02/18 01/29/20 History fluoxetine [Prozac] 40 mg PO QAM 04/02/18 01/29/20 History furosemide [Lasix] 20 mg PO DAILY PRN 04/02/18 01/29/20 History gabapentin 300 mg PO TID 04/02/18 01/29/20 History hydralazine 50 mg PO TID 04/02/18 01/29/20 History hydroxychloroquine 200 mg PO BID 04/02/18 01/29/20 History metformin 500 mg PO BID 04/02/18 01/29/20 History nitroglycerin 1 dose TRANSLINGUAL DIRECTED PRN 04/02/18 01/29/20 History pantoprazole 40 mg PO QAM 04/02/18 01/29/20 History terazosin 2 mg PO HS 04/02/18 01/29/20 History amlodipine 5 mg PO QAM 03/29/19 01/29/20 History betamethasone dipropionate 1 applic TOPICAL BID PRN 03/29/19 01/29/20 History levothyroxine 25 mcg PO QAM 09/08/19 01/29/20 History tramadol 50 mg PO Q6H PRN #30 tab 01/16/20 01/29/20 Rx Allergies Allergy/AdvReac Type Severity Reaction Status Date / Time nadolol AdvReac Unknown GI UPSET Verified 01/29/20 11:11 nitroglycerin AdvReac Unknown HEADACHE Verified 01/29/20 11:11 NSAIDS (Non-Steroidal AdvReac Unknown GI UPSET Verified 01/29/20 11:11 Anti-Inflamma Past Med/Surg History Medical History CAD (coronary artery disease) non-obstructive per 2017 cardiac cath Chronic back pain LLE radiculopathy CVA (cerebral vascular accident) 2017, residual unsteady, left sided weakness Depression Diabetes mellitus type 2 in nonobese NIDDM Diabetes mellitus, type II Dyslipidemia GERD (gastroesophageal reflux disease) Hiatal hernia History of breast cancer right breast HTN (hypertension) Hypothyroidism IBS (irritable bowel syndrome) Myocardial Infarction 1991 (PTCA/PCI to ramus intermedius complicated by spiral dissection) Osteoarthritis PAD (peripheral artery disease) severe right brachiocephalic stenosis and moderate to severe abdominal aortic stenosis- under surveillance by cardiovascular Rheumatoid arthritis Surgical History H/O repair of right rotator cuff 2013 History of back surgery 2019 History of bilateral knee arthroplasty Left (1995), right (2005) History of cardiac cath [facility]-2017 NO STENTS History of cholecystectomy 1998 History of colonoscopy History of modified radical mastectomy of right breast 2011 History of total knee replacement left revision Nasal fracture repair Status post renal artery angioplasty 1991 Family History Daughter Family history of reaction to anesthesia SLOW TO WAKE UP Mother Family history of diabetes mellitus Other Diabetes Heart disease Hypertension Social History Smoking Status: Former smoker Second Hand Exposure: No; Hx Alcohol Use: No Hx Substance Use: No Preferred Language: Persian Communication Ability: Effective Visual Impairment: No Limitations Hearing Ability: Normal Manager Stone Required: No Beliefs That Will Affect Care: None marital status: Current Living Situation: Spouse and Family current occupational status: retired Feels Safe at Home: Yes Review of Systems A total of 10 systems reviewed and were otherwise negative Physical Exam Vital Signs Vital Signs - 24 hr 01/29/20 10:03 01/29/20 10:54 01/29/20 12:00 Temperature 36.7 C Temperature Source Oral Pulse Rate 82 Pulse Rate [Right Finger] 73 85 Pulse Rhythm [Right Finger] Regular Pulse Strength [Right Finger] Normal Respiratory Rate 24 18 20 Respiratory Effort / Characteristics Non-Labored Non-Labored Spontaneous Non-Labored Respiratory Depth Normal Normal Normal Respiratory Pattern Regular Regular Blood Pressure 156/88 H Blood Pressure [Left Arm] 162/87 H 193/90 H Blood Pressure Mean 110 Blood Pressure Mean [Left Arm] 112 124 Blood Pressure Position Sitting Blood Pressure Position [Left Arm] Lying Lying Pulse Oximetry 98 91 92 Oxygen Delivery Method Room Air Room Air Room Air Sepsis Recent Fever Within 48 Hours No Sepsis New/Unexplained Change in Mental Status No Sepsis Action Taken by Nursing No Action Required 01/29/20 15:25 Temperature Temperature Source Pulse Rate Pulse Rate [Right Finger] Pulse Rhythm [Right Finger] Pulse Strength [Right Finger] Respiratory Rate Respiratory Effort / Characteristics Respiratory Depth Respiratory Pattern Blood Pressure Blood Pressure [Left Arm] Blood Pressure Mean Blood Pressure Mean [Left Arm] Blood Pressure Position Blood Pressure Position [Left Arm] Pulse Oximetry Oxygen Delivery Method Room Air Sepsis Recent Fever Within 48 Hours Sepsis New/Unexplained Change in Mental Status Sepsis Action Taken by Nursing Physical Exam GENERAL: She is oriented to person, place, and time. She appears well-developed and well-nourished. She does not appear distressed. HENT: Exam performed. -Head: Normocephalic and atraumatic. -Right Ear: External ear normal. No mastoid tenderness. -Left Ear: External ear normal. No mastoid tenderness. -Mouth/Throat: The oropharynx is clear and moist. No trismus in the jaw. No dental abscesses or uvula swelling. No oropharyngeal exudate or tonsillar abscesses. EYES: Conjunctivae and EOM are normal. Pupils are equal, round, and reactive to light. Right eye exhibits no discharge. Left eye exhibits no discharge. No scleral icterus. NECK: Normal range of motion. Neck supple. No JVD present. No spinous process tenderness present. No carotid bruit present. No rigidity. No tracheal deviation and normal range of motion present. No Brudzinski's sign and no Kernig's sign noted. CV: Normal rate, regular rhythm, normal heart sounds and intact distal pulses. There is no peripheral edema. Palpable radial pulses bue. PULM/CHEST: Effort normal and breath sounds normal. No respiratory distress. No stridor. She has no wheezes. She has no rales. -Chest Wall: She exhibits no tenderness. ABD: The abdomen is soft. Bowel sounds are normal. She has no distension. No mass is present. There is no tenderness. There is no rebound, no guarding, no Ann's sign and no tenderness at McBurney's point. Rovsig negative MUSC/SKEL: Pain on palpation of the lumbar spine. Surgical incision over her lumbar back appears clean and dry. There is no surrounding erythema. There is no discharge. LYMPH: No cervical adenopathy. NEURO: Motor and sensation grossly intact. No saddle anesthesia or paresthesias. SKIN: Skin is warm and dry. She is not diaphoretic. PSYCH: She has a normal mood and affect. Behavior is normal. Judgment and thought content normal. Course Course 1011: The patient was evaluated in room C1. A complete history and physical exam was performed. EMR reviewed. Patient had a surgery done on January 15, [address]. Procedures performed were as follows per his note: Actual Procedures #1 lumbar decompression with bilateral medial facetectomies and foraminotomies L2-3, L3-4, L4-5 and L5-S1. #2 posterior spinal fusion L2-S1. #3 placed a posterior segmental instrumentation L2-S1. #4 interbody fusion L3-4, L4-5 and L5-S1. #5 placement peek cage 12 x 22 mm at L3-4, 12 x 22 mm at L4-5, 13 x 26 mm at L5-S1. #6 placement of locally harvested morselized autograft in the posterior lateral gutters. #7 placement infuse collagen sponge, master graft in the posterior lateral gutters and ostial amp and interbody space. Analgesia, antiemetics, basic lab work and MRI to rule out cauda equina will be ordered. 1257: MRI shows no evidence of cord compression. There is a leukocytosis of 17. Patient is still reporting increasing back pain. Repeat analgesia given. Multiple pages have been sent out to Dr. Street but no response to this point. 1343: Vital signs stable. Discussed the case with Dr. Street who reviewed the MRI images himself and stated he will admit the patient to his service. He recommends starting the patient's on antibiotics vancomycin. Patient is in agreement with the plan. Administered Medications Sodium Chloride (Nss 1000ml) 1,000 mls @ 125 mls/hr IV .Q8H DIAMOND Stop: 02/28/20 10:29 Last Admin: 01/29/20 10:55 Dose: 125 mls/hr Documented by: [id number] Vancomycin HCl 2,250 mg/ (Sodium Chloride) 545 mls @ 200 mls/hr IV NOW ONE Stop: 01/29/20 16:26 Last Admin: 01/29/20 15:31 Dose: 200 mls/hr Documented by: [id number] Discontinued Medications Hydromorphone HCl (Dilaudid) 1 mg IV NOW STA Stop: 01/29/20 10:19 Last Admin: 01/29/20 10:55 Dose: 1 mg Documented by: [id number] Hydromorphone HCl (Dilaudid) 1 mg IV NOW STA Stop: 01/29/20 12:34 Last Admin: 01/29/20 12:43 Dose: 1 mg Documented by: [id number] Ondansetron HCl (Zofran) 4 mg IV NOW STA Stop: 01/29/20 10:19 Last Admin: 01/29/20 10:55 Dose: 4 mg Documented by: [id number] Medical Decision Making Laboratory Data Result diagrams: 01/29/20 10:56 01/29/20 10:56 Lab Results 01/29/20 01/29/20 01/29/20 Range/Units 10:56 10:56 10:56 WBC 17.03 H (4.8-10.8) K/uL RBC 3.95 L (4.2-5.4) M/uL Hgb 12.3 (12.0-16.0) g/dL Hct 37.7 (37-47) % MCV 95.4 (80-100) fL MCH 31.1 (25-34) pg MCHC 32.6 (32-36) g/dL RDW Std Deviation 48.3 H (36.4-46.3) fL RDW Coeff of Farheen 14.0 (11.5-14.5) % Plt Count 262 (130-400) K/uL MPV 8.3 (7.4-10.4) fL Immature Gran % (Auto) 1.0 % Neut % (Auto) 83.0 % Lymph % (Auto) 8.1 % Kleberg % (Auto) 7.3 % Eos % (Auto) 0.5 % Baso % (Auto) 0.1 % Neut # (Auto) 14.13 H (1.4-6.5) K/uL Lymph # (Auto) 1.38 (1.2-3.4) K/uL Kleberg # (Auto) 1.25 H (0.11-0.59) K/uL Eos # (Auto) 0.08 (0-0.5) K/uL Baso # (Auto) 0.02 (0-0.2) K/uL Immature Gran # (Auto) 0.17 H (0.00-0.02) K/uL Absolute Nucleated RBC 0.03 H (0-0) K/uL Nucleated RBC % (auto) 0.2 % PT 11.3 (9.0-12.0) Seconds INR 1.1 (0.9-1.1) APTT 23.1 (21.0-31.0) Seconds PTT Ratio 0.8 Sodium 140 (136-145) mmol/L Potassium 3.2 L (3.5-5.1) mmol/L Chloride 104 (98-107) mmol/L Carbon Dioxide 26 (21-32) mmol/L Anion Gap 10.0 (3-11) BUN 15 (7-18) mg/dl Creatinine 0.89 (0.6-1.2) mg/dl Est Cr Clr Drug Dosing Not Reportable Est GFR ( Amer) 73.5 Est GFR (Non-Af Amer) 63.4 BUN/Creatinine Ratio 17.0 (10-20) Glucose 171 H (70-99) mg/dl Calcium 9.0 (8.5-10.1) mg/dl Imaging Data Radiologist's Impression: MR lumbar spine wo con CLINICAL HISTORY: Postoperative back pain. Urinary incontinence. Evaluate for cord compression. TECHNIQUE: Sagittal and axial T1, T2 and STIR images were obtained. COMPARISON STUDY: 11/14/2018 OBSERVATIONS: Again evident is a severe T12 compression fracture with 4 mm of retropulsion. This effaces the anterior thecal sac but does not result in significant canal compromise. Since the prior study, the patient has developed a moderate superior endplate L1 compression fracture with 30% loss in height. In addition there is interval development of S2 marrow edema suggesting an insufficiency fracture. There is artifact secondary to a L2-S1 spinal decompression and fusion with posterior pedicle screws. L1-2: There is a minimal circumferential disc bulge. There is no significant spinal or foraminal stenosis L2-3: There are postsurgical changes of a posterior laminectomy. There is no significant spinal or foraminal stenosis L3-4: There are postsurgical changes of a discectomy and interbody fusion. There are postlaminectomy changes. There is no significant spinal or foraminal stenosis. L4-5: There are postsurgical changes of discectomy and interbody fusion. There are postlaminectomy changes. There is no significant spinal or foraminal stenosis. L5-S1: There are postsurgical changes of a discectomy and interbody fusion. There are postlaminectomy changes. There is soft tissue surrounding the left S1 nerve root, likely postsurgical. The conus medullaris and cauda equina appear normal. There is a posterior subcutaneous fluid collection measuring 8.8 x 4.5 x 13.4 cm. This is felt to be postsurgical IMPRESSION: 1. Interval L2-S1 spinal decompression and fusion 2. Interval development of an 8.8 x 4.5 x 13.4 cm midline posterior subcutaneous fluid collection which is felt to be postsurgical 3. Persistent severe T12 compression fracture with 4 mm of retropulsion but no evidence of significant canal compromise 4. Interval development of a superior endplate L1 compression fracture with 30% loss in height 5. Interval development of subtle S2 marrow edema suggesting a insufficiency fra cture ACT 112: Negative or not required by law. Electronically signed by: Avery López M.D. 01/29/2020 12:06 PM Dictated: 01/29/20 1152 Transcribed: 01/29/20 1152 [facility] Narrative 1011: The patient was evaluated in room C1. A complete history and physical exam was performed. EMR reviewed. Patient had a surgery done on January 15, [address]. Procedures performed were as follows per his note: Actual Procedures #1 lumbar decompression with bilateral medial facetectomies and foraminotomies L2-3, L3-4, L4-5 and L5-S1. #2 posterior spinal fusion L2-S1. #3 placed a posterior segmental instrumentation L2-S1. #4 interbody fusion L3-4, L4-5 and L5-S1. #5 placement peek cage 12 x 22 mm at L3-4, 12 x 22 mm at L4-5, 13 x 26 mm at L5-S1. #6 placement of locally harvested morselized autograft in the posterior lateral gutters. #7 placement infuse collagen sponge, master graft in the posterior lateral gutters and ostial amp and interbody space. Analgesia, antiemetics, basic lab work and MRI to rule out cauda equina will be ordered. 1257: MRI shows no evidence of cord compression. There is a leukocytosis of 17. Patient is still reporting increasing back pain. Repeat analgesia given. Multiple pages have been sent out to Dr. Street but no response to this point. 1343: Vital signs stable. Discussed the case with Dr. Street who reviewed the MRI images himself and stated he will admit the patient to his service. He recommends starting the patient's on antibiotics vancomycin. Patient is in agreement with the plan. Impression & Plan Postoperative back pain Discharge Plan Visit Data Chief Complaint: Back Injury/Pain Stated Complaint: back pain- sx came home sun doc ref. ED Provider: Adonay Anand Discharge Problem: Postoperative back pain Patient Disposition: Being Evaluated by Surgeon Discharge Instructions Interventions: ED Discharge Assessment Last Done: 01/29/20 15:25 Forms Stand Alone Forms: My [facility] Prescriptions Prescriptions: No Action fluoxetine [Prozac] 40 mg Capsule 40 mg PO QAM RF: 0 atorvastatin 40 mg Tablet 40 mg PO HS RF: 0 metformin 500 mg Tablet 500 mg PO BID RF: 0 carvedilol 6.25 mg Tablet 12.5 mg PO BID RF: 0 nitroglycerin 400 mcg/spray Aerosol,[place] 1 dose Translingual DIRECTED PRN (Reason: Chest Pain) RF: 0 aspirin [Aspirin Low Dose] 81 mg Tablet,Delayed Release (Dr/Ec) 81 mg PO QAM RF: 0 terazosin 2 mg Capsule 2 mg PO HS RF: 0 pantoprazole 40 mg tablet,delayed release (DR/EC) 40 mg PO QAM RF: 0 gabapentin 300 mg Capsule 300 mg PO TID RF: 0 hydralazine 50 mg Tablet 50 mg PO TID RF: 0 furosemide [Lasix] 20 mg Tablet 20 mg PO DAILY PRN (Reason: Weight Gain) RF: 0 hydroxychloroquine 200 mg tablet 200 mg PO BID RF: 0 amlodipine 5 mg Tablet 5 mg PO QAM RF: 0 betamethasone dipropionate 0.05 % Cream 1 applic TOPICAL BID PRN (Reason: redness) RF: 0 levothyroxine 25 mcg Capsule 25 mcg PO QAM RF: 0 tramadol 50 mg tablet 50 mg PO Q6H PRN (Reason: pain, moderate) Qty: 30 RF: 0 Referrals Referrals: Derrek Sparks MD [Primary Care Provider] -
[2020-01-29] MEDS: SODIUM CHLORIDE 0.9% 1000ML 1,000 ML IV SCH ×2 (10:55→18:53)
[2020-01-29 11:07] LABS: Basophils # (auto) 0.02 K/uL (0-0.2); Basophils % (auto) 0.1 %; Eosinophils # (auto) 0.08 K/uL (0-0.5); Eosinophils % (auto) 0.5 %; Hematocrit (blood only) 37.7 % (37-47); Hemoglobin 12.3 g/dL (12.0-16.0); Immature Granulocytes # (auto) 0.17 K/uL (0.00-0.02); Lymphocytes # (auto) 1.38 K/uL (1.2-3.4); Lymphocytes % (auto) 8.1 %; Mean Corpuscular Hemoglobin 31.1 pg (25-34); Mean Corpuscular Hgb Conc 32.6 g/dL (32-36); Mean Corpuscular Volume 95.4 fL (80-100); Mean Platelet Volume 8.3 fL (7.4-10.4); Monocytes # (auto) 1.25 K/uL (0.11-0.59); Monocytes % (auto) 7.3 %; Neutrophils # (auto) 14.13 K/uL (1.4-6.5); Nucleated RBC # (auto) 0.03 K/uL (0-0); Nucleated RBC % (auto) 0.2 %; Platelet Count 262 K/uL (130-400); RDW Standard Deviation 48.3 fL (36.4-46.3); Red Blood Count 3.95 M/uL (4.2-5.4); White Blood Count 17.03 K/uL (4.8-10.8)
[2020-01-29 11:17] LABS: INR 1.1 (0.9-1.1); Partial Thromboplastin Ratio 0.8; Partial Thromboplastin Time 23.1 Seconds (21.0-31.0); Prothrombin Time 11.3 Seconds (9.0-12.0)
[2020-01-29 11:20] LABS: Blood Urea Nitrogen 15 mg/dl (7-18); Carbon Dioxide 26 mmol/L (21-32); Chloride 104 mmol/L (98-107); Est GFR (African American) 73.5; Est GFR (Non-African American) 63.4; Glucose 171 mg/dl (70-99); Potassium 3.2 mmol/L (3.5-5.1); Sodium 140 mmol/L (136-145)
--- NOTE | 2020-01-29 12:07 | Magnetic Resonance Report ---
MR lumbar spine wo con CLINICAL HISTORY: Postoperative back pain. Urinary incontinence. Evaluate for cord compression. TECHNIQUE: Sagittal and axial T1, T2 and STIR images were obtained. COMPARISON STUDY: 11/14/2018 OBSERVATIONS: Again evident is a severe T12 compression fracture with 4 mm of retropulsion. This effaces the anteri or thecal sac but does not result in significant canal compromise. Since the prior study, the patient has developed a moderate superior endplate L1 compression fracture with 30% loss in height. In addit ion there is interval development of S2 marrow edema suggesting an insufficiency fracture. There is a rtifact secondary to a L2-S1 spinal decompression and fusion with posterior pedicle screws. L1-2: There is a minimal circumferential disc bulge. There is no significant spinal or foraminal sten osis L2-3: There are postsurgical changes of a posterior laminectomy. There is no significant spinal or fo raminal stenosis L3-4: There are postsurgical changes of a discectomy and interbody fusion. There are postlaminectomy changes. There is no significant spinal or foraminal stenosis. L4-5: There are postsurgical changes of discectomy and interbody fusion. There are postlaminectomy ch anges. There is no significant spinal or foraminal stenosis. L5-S1: There are postsurgical changes of a discectomy and interbody fusion. There are postlaminectomy changes. There is soft tissue surrounding the left S1 nerve root, likely postsurgical. The conus medullaris and cauda equina appear normal. There is a posterior subcutaneous fluid collection measuring 8.8 x 4.5 x 13.4 cm. This is felt to be postsurgical IMPRESSION: 1. Interval L2-S1 spinal decompression and fusion 2. Interval development of an 8.8 x 4.5 x 13.4 cm midline posterior subcutaneous fluid collection whi ch is felt to be postsurgical 3. Persistent severe T12 compression fracture with 4 mm of retropulsion but no evidence of significan t canal compromise 4. Interval development of a superior endplate L1 compression fracture with 30% loss in height 5. Interval development of subtle S2 marrow edema suggesting a insufficiency fracture ACT 112: Negative or not required by law. Electronically signed by: Avery López M.D. 01/29/2020 12:06 PM
[2020-01-29] MEDS ORDERED: VANCOMYCIN HCL 2,250 MG in SODIUM CHLORIDE 0.9% 500 ML IV ONE (13:43)
[2020-01-29] MEDS ORDERED: VANCOMYCIN CONSULT ACTIVE PRN (13:43)
--- NOTE | 2020-01-29 14:15 | History & Physical Report ---
Date of Service January 29, 2020 Assessment & Plan (1) Compression fracture of L1 lumbar vertebra: At this time we are going to admit the patient for pain control and medical evaluation. I have had a discussion with the patient and her reviewing MRI findings at this point I would like to arrange for a kyphoplasty of L1 which clearly needs to be stabilized as it sits adjacent to a large fusion construct. This should help with a component of her pain. We will also need to perform an I&D on the seroma in the subcutaneous tissues. This may require wound VAC. Patient understands and agrees. Most surgical most likely be Wednesday. Present on Admission?: Yes History of Present Illness Chief Complaint: Back pain Primary Care Provider: Derrek Sparks MD This is a 74-year-old female status post multilevel lumbar decompression and fusion approximate 2 weeks ago. She states past few days she has had significant thoracolumbar back pain that is markedly limited her ability to stand and ambulate. She presents the emergency room today with worsening symptoms. She denies any numbness or tingling into the lower extremities. Denies any radicular complaints. Allergies Allergy/AdvReac Type Severity Reaction Status Date / Time nadolol AdvReac Unknown GI UPSET Verified 01/29/20 11:11 nitroglycerin AdvReac Unknown HEADACHE Verified 01/29/20 11:11 NSAIDS (Non-Steroidal AdvReac Unknown GI UPSET Verified 01/29/20 11:11 Anti-Inflamma Home Medications Home Medications Medication Instructions Recorded Confirmed Type aspirin [Aspirin Low Dose] 81 mg PO QAM 04/02/18 01/29/20 History atorvastatin 40 mg PO HS 04/02/18 01/29/20 History carvedilol 12.5 mg PO BID 04/02/18 01/29/20 History fluoxetine [Prozac] 40 mg PO QAM 04/02/18 01/29/20 History furosemide [Lasix] 20 mg PO DAILY PRN 04/02/18 01/29/20 History gabapentin 300 mg PO TID 04/02/18 01/29/20 History hydralazine 50 mg PO TID 04/02/18 01/29/20 History hydroxychloroquine 200 mg PO BID 04/02/18 01/29/20 History metformin 500 mg PO BID 04/02/18 01/29/20 History nitroglycerin 1 dose TRANSLINGUAL DIRECTED PRN 04/02/18 01/29/20 History pantoprazole 40 mg PO QAM 04/02/18 01/29/20 History terazosin 2 mg PO HS 04/02/18 01/29/20 History amlodipine 5 mg PO QAM 03/29/19 01/29/20 History betamethasone dipropionate 1 applic TOPICAL BID PRN 03/29/19 01/29/20 History levothyroxine 25 mcg PO QAM 09/08/19 01/29/20 History tramadol 50 mg PO Q6H PRN #30 tab 01/16/20 01/29/20 Rx Past Med/Surg History Medical History CAD (coronary artery disease) non-obstructive per 2017 cardiac cath Chronic back pain LLE radiculopathy CVA (cerebral vascular accident) 2017, residual unsteady, left sided weakness Depression Diabetes mellitus type 2 in nonobese NIDDM Diabetes mellitus, type II Dyslipidemia GERD (gastroesophageal reflux disease) Hiatal hernia History of breast cancer right breast HTN (hypertension) Hypothyroidism IBS (irritable bowel syndrome) Myocardial Infarction 1991 (PTCA/PCI to ramus intermedius complicated by spiral dissection) Osteoarthritis PAD (peripheral artery disease) severe right brachiocephalic stenosis and moderate to severe abdominal aortic stenosis- under surveillance by cardiovascular Rheumatoid arthritis Surgical History H/O repair of right rotator cuff 2013 History of back surgery 2019 History of bilateral knee arthroplasty Left (1995), right (2005) History of cardiac cath [facility]-2017 NO STENTS History of cholecystectomy 1998 History of colonoscopy History of modified radical mastectomy of right breast 2011 History of total knee replacement left revision Nasal fracture repair Status post renal artery angioplasty 1991 Family History Daughter Family history of reaction to anesthesia SLOW TO WAKE UP Mother Family history of diabetes mellitus Other Diabetes Heart disease Hypertension Social History Smoking Status: Former smoker Second Hand Exposure: No; Hx Alcohol Use: No Hx Substance Use: No Preferred Language: Canadian Communication Ability: Effective Visual Impairment: No Limitations Hearing Ability: Normal Card Reader Required: No Beliefs That Will Affect Care: None marital status: Current Living Situation: Spouse and Family current occupational status: retired Feels Safe at Home: Yes Physical Exam Physical Exam: On exam the incision is healing there is no erythema but there is evidence of swelling. She is neurologically intact testing lower extremities. Results & Data Vital Signs (Past 12 Hours) Vital Signs Temp Pulse Pulse Resp BP BP Pulse Ox 01/29/20 12:00 85 20 193/90 H 92 01/29/20 10:54 73 18 162/87 H 91 01/29/20 10:03 36.7 C 82 24 156/88 H 98
[2020-01-29] MEDS ORDERED: TRAMADOL HCL 50 MG TABLET PO PRN (15:59)
[2020-01-29] MEDS ORDERED: LORazepam 1 MG/2 ML VIAL IV PRN (15:59)
[2020-01-29] MEDS ORDERED: PROMETHAZINE HCL 12.5 MG in SODIUM CHLORIDE 0.9% 50 ML IV PRN (15:59)
[2020-01-29] MEDS ORDERED: ONDANSETRON INJ 2 MG/ML 2 ML VIAL IV PRN (15:59)
[2020-01-29] MEDS ORDERED: ACETAMINOPHEN 500 MG TAB PO PRN (15:59)
[2020-01-29] MEDS ORDERED: HYDROmorphone INJ 0.5 MG/0.5 ML SYR IV PRN (15:59)
[2020-01-29] MEDS ORDERED: METOCLOPRAMIDE HCL INJ 5 MG/ML 2 ML VIAL IV PRN (15:59)
[2020-01-29] MEDS ORDERED: LORazepam 1 MG TAB PO PRN (15:59)
[2020-01-29] MEDS ORDERED: ONDANSETRON 4 MG OD TAB PO PRN (15:59)
[2020-01-29] MEDS ORDERED: FUROSEMIDE 20 MG TAB PO PRN (15:59)
[2020-01-29] MEDS: HYDROmorphone INJ 1 MG/ML SYRINGE IV PRN ×3 (16:10→23:59)
[2020-01-29] MEDS ORDERED: NITROGLYCERIN SL 0.4 MG/TAB TAB SL PRN (16:12)
[2020-01-29] MEDS: LACTATED RINGER'S 1,000 ML IV SCH (16:23)
[2020-01-29] MEDS ORDERED: PIPERACILL/TAZOBAC CONSULT ACTIVE PRN (17:03)
[2020-01-29] MEDS ORDERED: CARBOHYDRATES FOR HYPOGLYCEMIA PO PRN (17:08)
[2020-01-29] MEDS ORDERED: GLUCOSE 10 TABS/TUBE PO PRN (17:08)
[2020-01-29] MEDS ORDERED: DEXTROSE 50% 50 ML SYRINGE IV PRN (17:08)
[2020-01-29] MEDS ORDERED: GLUCAGON FOR INJ 1 MG VIAL SQ PRN (17:08)
[2020-01-29] MEDS ORDERED: GLUCOSE 40% GEL 15 GM TUBE PO PRN (17:08)
[2020-01-29] MEDS: OXYCODONE HCL IR 5 MG TAB (IMMEDIATE RELEASE) PO PRN (17:13)
[2020-01-29] MEDS ORDERED: POTASSIUM CHLORIDE 20 MEQ TABCR PO ONE (17:14)
[2020-01-29] MEDS ORDERED: PIPERACILLIN/TAZOBACTAM 4.5 GM in DEXTROSE 5% 100 ML IV ONE (17:30)
--- NOTE | 2020-01-29 17:50 | Hospitalist Consultation ---
Date of Consultation January 29, 2020 Assessment & Plan (1) Postoperative back pain: -Admitted to [facility] under orthopedic service -Patient is s/p L3-S1 decompression and fusion on 01/[address] -Presented to the ED for worsening back pain, lumbar spine MRI showing 1. Interval development of an 8.8 x 4.5 x 13.4 cm midline posterior subcutaneous fluid collection which is felt to be postsurgical, 2. Persistent severe T12 compression fracture with 4 mm of retropulsion but no evidence of significant canal compromise, 3. Interval development of a superior endplate L1 compression fracture with 30% loss in height -Spine Ortho planning on kyphoplasty and I&D on 01/30 -Pain control as per spine Ortho -Received IV vancomycin, will add on IV Zosyn (2) Leukocytosis: -WBC 17 K -Does not appear septic -Recent steroid course likely contributing -On IV Vanco and IV Zosyn as above for postoperative seroma -Check UA -Follow postop cultures (3) Hypomagnesemia: (4) Hypokalemia: -K+ 3.2, Mg+ 1.4 -Replace, follow electrolytes (5) Diabetes mellitus, type II: -Hgb A1c 6.4 12/2019 -Hold oral agents and utilize NovoLog per protocol while hospitalized (6) HTN (hypertension): -BP elevated likely situational and/or secondary to pain -Continue home doses of amlodipine, carvedilol, hydralazine, and make adjustments as needed (7) CAD (coronary artery disease): -Appears stable, no reports of chest pain -Continue aspirin, statin, beta-pamela (8) Rheumatoid arthritis: -Previously on Plaquenil and methotrexate however patient reports she has not taken his medications for the past several months (9) DVT prophylaxis: -Teds/SCDs as per spine Ortho Thank you for this consultation. We will follow the patient with you during their hospital stay. You can reach a member of the [facility] Hospitalist Team 18/01 via pager @ [phone]. Supervising Physician Co-Signing Physician Notes Patient was seen and examined by me, care coordinated with BLAYNE Valerio. Please see her note above for further details. Pt is a 74 y/o female with DM type II, CAD, HTN, rheumatoid arthritis, hx of breast ca who underwent decompression and fusion of L3-S1 on January 14 , postoperative course was complicated by new onset of A. fib, after discharge patient was doing well until recently. Patient complained of increased weakness, overall body, and some lower back pain, patient also reported incontinence of urine and stool, patient wears dependents. She presented today to ED for further evaluation and was admitted under the spine orthopedic service for management of postoperative back pain, postoperative incisional fluid collection, and L1 compression fracture. IV broad-spectrum antibiotics, vancomycin and Zosyn were started. She was placed on a Medrol Dosepak by spine orthopedics. Patient reports having subjective fevers chills, however when she measured her temperature at home, she was afebrile. She denies chest pain or shortness of breath. No lightheadedness, dizziness, diaphoresis, syncopal events. Denies abdominal pain, nausea, vomiting, diarrhea. Currently she is lying in bed, in no acute distress. She is alert and oriented, answering questions appropriately. She is moving all 4 extremities. Lung sounds are clear to auscultation bilaterally, without any wheezing rhonchi or crackles. Heart sounds seem regular. Abdomen is soft, nontender, nondistended, positive bowel sounds. There is healed incisional scar on her back, without any erythema however there seems to be mild swelling, and mild tenderness to palpation. [place] catheter is placed. Skin is warm, dry, well-perfused, no rashes or lesions noted. Continue to monitor vital signs, CBC, monitor white blood cell count, patient w/leukocytosis. She was also found hypokalemic and hypomagnesemic, will be replacing electrolytes as needed. Routine ECG d/t hx of afib. Perfecto Marcum MD History of Present Illness Reason for Consultation: Medical management Requesting Physician: Dr. Street Attending Physician: Dr. Marcum History of Present Illness 74-year-old female with PMH DM type II, CAD, HTN, rheumatoid arthritis, and other problems listed below who was admitted under the spine orthopedic service for management of postoperative back pain, postoperative incisional fluid collection, and L1 compression fracture. Patient is status post L3-S1 decompression and fusion on 01/[address]. Patient reports she has been feeling well up until about 5 days ago. Patient reports increasing incisional back pain. She has had associated bilateral lower extremity weakness, numbness, tingling. She was placed on a Medrol Dosepak by spine orthopedics. She denies any loss of bowel or bladder function. No fevers or chills. She denies chest pain or shortness of breath. No lightheadedness, dizziness, diaphoresis, syncopal events. Denies abdominal pain, nausea, vomiting, diarrhea. No urinary symptoms. At the time my exam, patient is resting in bed no acute distress. Allergies Allergy/AdvReac Type Severity Reaction Status Date / Time nadolol AdvReac Unknown GI UPSET Verified 01/29/20 11:11 nitroglycerin AdvReac Unknown HEADACHE Verified 01/29/20 11:11 NSAIDS (Non-Steroidal AdvReac Unknown GI UPSET Verified 01/29/20 11:11 Anti-Inflamma Home Medications Home Medications Medication Instructions Recorded Confirmed Type aspirin [Aspirin Low Dose] 81 mg PO QAM 04/02/18 01/29/20 History atorvastatin 40 mg PO HS 04/02/18 01/29/20 History carvedilol 12.5 mg PO BID 04/02/18 01/29/20 History fluoxetine [Prozac] 40 mg PO QAM 04/02/18 01/29/20 History furosemide [Lasix] 20 mg PO DAILY PRN 04/02/18 01/29/20 History gabapentin 300 mg PO TID 04/02/18 01/29/20 History metformin 500 mg PO BID 04/02/18 01/29/20 History nitroglycerin 1 dose TRANSLINGUAL DIRECTED PRN 04/02/18 01/29/20 History pantoprazole 40 mg PO QAM 04/02/18 01/29/20 History terazosin 2 mg PO HS 04/02/18 01/29/20 History amlodipine 5 mg PO QAM 03/29/19 01/29/20 History betamethasone dipropionate 1 applic TOPICAL BID PRN 03/29/19 01/29/20 History levothyroxine 25 mcg PO QAM 09/08/19 01/29/20 History tramadol 50 mg PO Q6H PRN #30 tab 01/16/20 01/29/20 Rx hydralazine 25 mg PO TID 01/29/20 01/29/20 History methylprednisolone mg 01/29/20 History Patient History Medical History CAD (coronary artery disease) 1992 - PTCA/PCI to ramus intermedius complicated by spiral dissection non-obstructive per 2017 cardiac cath Chronic back pain LLE radiculopathy CVA (cerebral vascular accident) 2017, residual unsteady, left sided weakness Depression Diabetes mellitus, type II Dyslipidemia GERD (gastroesophageal reflux disease) Hiatal hernia History of breast cancer right breast HTN (hypertension) Hypothyroidism IBS (irritable bowel syndrome) Osteoarthritis PAD (peripheral artery disease) severe right brachiocephalic stenosis and moderate to severe abdominal aortic stenosis- under surveillance by cardiovascular PAF (paroxysmal atrial fibrillation) post operative, no further reoccurance Rheumatoid arthritis Surgical History H/O repair of right rotator cuff 2013 History of back surgery 2019 History of bilateral knee arthroplasty Left (1995), right (2005) History of cardiac cath [facility]-2017 NO STENTS History of cholecystectomy 1998 History of colonoscopy History of modified radical mastectomy of right breast 2011 History of total knee replacement left revision Nasal fracture repair Status post lumbar surgery Status post renal artery angioplasty 1991 Family History Daughter Family history of reaction to anesthesia SLOW TO WAKE UP Mother Family history of diabetes mellitus Other Diabetes Heart disease Hypertension Social History Smoking Status: Former smoker Smoking End Date: 1991; Second Hand Exposure: No; Do You Dip or Chew Tobacco: No; Hx Alcohol Use: No Hx Substance Use: No Preferred Language: Dominican Communication Ability: Effective Visual Impairment: No Limitations Hearing Ability: Normal Spectrograph Operator Required: No Beliefs That Will Affect Care: None marital status: Current Living Situation: Spouse current occupational status: retired Other Information That Helps Us Care for You: No Feels Safe at Home: Yes Safety Concerns: Feels Safe At This Time Review of Systems Review of Systems: ROS per HPI, all other systems reviewed and negative Physical Exam Constitutional: WD/WN, vitals as above Eyes: PERRL, conjunctivae normal, anicteric sclerae ENMT: external ear and nose normal, oropharynx normal Respiratory: normal respiratory effort, lungs clear to auscultation Cardiovascular: Rate/Rhythm: regular rate and regular rhythm Vessels: normal peripheral pulses Extremities: no edema Gastrointestinal (Abdomen): normal bowel sounds, soft, nontender, no hepatosplenomegaly Musculoskeletal: no cyanosis or clubbing, extremities motor strength 5/5 Pedal pushes and pulls strong bilaterally Skin: no rashes, warm and dry Neurologic: PERRL, EOMI, accommodation nl, no face palsy, no dysarthria Psychiatric: A+Ox3, euthymic affect Results & Data Results & Data ([facility]) Vital Signs (Past 12 Hours) Vital Signs Temp Pulse Pulse Resp BP BP Pulse Ox 01/29/20 16:25 36.3 C L 77 22 178/74 H 94 01/29/20 12:00 85 20 193/90 H 92 01/29/20 10:54 73 18 162/87 H 91 01/29/20 10:03 36.7 C 82 24 156/88 H 98 Laboratory Results Short CBC 01/29/20 Range/Units 10:56 WBC 17.03 H (4.8-10.8) K/uL Hgb 12.3 (12.0-16.0) g/dL Hct 37.7 (37-47) % Plt Count 262 (130-400) K/uL [facility] 01/29/20 10:56 Sodium 140 Potassium 3.2 L Chloride 104 Carbon Dioxide 26 BUN 15 Creatinine 0.89 Glucose 171 H Calcium 9.0 Diagnostic Findings LUMBAR SPINE MRI IMPRESSION: 1. Interval L2-S1 spinal decompression and fusion 2. Interval development of an 8.8 x 4.5 x 13.4 cm midline posterior subcutaneous fluid collection which is felt to be postsurgical 3. Persistent severe T12 compression fracture with 4 mm of retropulsion but no evidence of significant canal compromise 4. Interval development of a superior endplate L1 compression fracture with 30% loss in height 5. Interval development of subtle S2 marrow edema suggesting a insufficiency fracture
[2020-01-29] MEDS: INSULIN ASPART 100 UNITS/ML 3 ML PEN SC SCH ×2 (17:57→21:03)
[2020-01-29 18:20] LABS: Appearance Urine Turbid (Clear); Bacteria Urine Automated 2+ (Negative); Bilirubin Urine Negative (Negative); Blood Urine Negative (Negative); Color Urine Yellow; Epithelial Cell Urine Auto 0-5 /lpf (0-5); Glucose Urine UA Negative (Negative); Ketones Urine Negative (Negative); Leukocyte Esterase Urine 1+ (Negative); Nitrite Urine Negative (Negative); RBC Urine Automated 0-4 /hpf (0-4); Specific Gravity Urine 1.013 (1.000-1.030); Urobilinogen Urine Negative (Negative); WBC Urine Automated >30 /hpf (0-5)
[2020-01-29 18:24] LABS: Protein Urine 2+ (Negative); Sulfosalicylic Acid Urine Positive (Negative)
--- NOTE | 2020-01-29 18:49 | XRay Report ---
XR chest 1V portable HISTORY: 74 years-old Female pre op preoperative exam. No acute chest complaints COMPARISON: CTA of the chest and chest radiograph 01/19/2020 TECHNIQUE: Portable AP view of the chest FINDINGS: Cardiomediastinal and hilar silhouettes are within normal limits. Calcified plaque of the thoracic ao rtic arch. Unchanged right hemidiaphragmatic elevation. No pneumothorax, pleural effusion, airspace c onsolidation or overt pulmonary edema. Right shoulder total joint arthroplasty. Degenerative changes of the spine and left shoulder. IMPRESSION: No acute process. ACT 112: Negative or not required by law. The above report was generated using voice recognition software. It may contain grammatical, syntax o r spelling errors. Electronically signed by: Bishnu Juarez M.D. 01/29/2020 6:48 PM
[2020-01-29] MEDS: MAGNESIUM SULFATE / D5W 1 GM/100 ML BAG IV SCH ×2 (19:02→20:53)
--- NOTE | 2020-01-29 20:22 | Pharmacy Report ---
Pharmacy Abx Initial Consult - Date of Service January 29, 2020 - Pharmacy Dosing Scope Date of Consult: 01/29/20 Consultation requested by: Dr. Street and Sully Stephens PA-C Pharmacy is consulted to initiate vancomycin and Zosyn IV dosing therapy, order appropriate labs and adjust drug dose/frequency. - Subjective The patient is a 74 year old F admitted on 01/29/20 14:27. - Objective Height: 5 ft 10 in Weight: 106.1 kg Vital Signs (Past 12hrs): Vital Signs Temp Pulse Pulse Resp BP BP Pulse Ox 01/29/20 16:25 36.3 C L 77 22 178/74 H 94 01/29/20 12:00 85 20 193/90 H 92 01/29/20 10:54 73 18 162/87 H 91 01/29/20 10:03 36.7 C 82 24 156/88 H 98 Lab Results (24hrs): Laboratory Tests (24 Hours) 01/29/20 01/29/20 10:56 10:56 WBC 17.03 H Neut # (Auto) 14.13 H Creatinine 0.89 Est Cr Clr Drug Dosing Not Reportable Micro Results: 01/29/20 17:45 Urine Culture - Pending Urine,Straight Cath - Risk Factors for Resistance * Hospitalization for 48 hours or more within the past 90 days (December 2019) * S/P lumbar decompression (01/15/20) * Diabetes mellitus - Assessment & Plan Assessment 74 year old F ordered empiric vancomycin and Zosyn for leukocytosis (WBC: 17 K) and evidence of postoperative seroma on MRI. L3-S1 decompression on 01/15/20. Vital signs stable, patient afebrile on admission. Kyphoplasty L1 + I&D of lumbar spine seroma scheduled for tomorrow. Plan Vancomycin IV * Estimated PK Parameters: Vd 64 L/kg, Travis 0.056 hr-1, t1/2 12 hr * Loading dose: 2250 mg (21 mg/kg) * Maintenance dose: 1000 mg IV (9 mg/kg) every 12 hours * Goal trough level for possible bone/joint infection : 15 to 20 mcg/mL * Trough level ordered for 01/31/20 - prior to steady-state due to dosing in obese patient * A less than traditional dose has been selected due to likelihood of drug accumulation in obese patient Piperacillin/tazobactam * 4.5 g bolus administered over 30 minutes, then 3.375 g IV extended infusion every 8 hours for CrCl greater than 20 mL/min Pharmacy will continue to follow and will adjust dose/frequency as necessary. Thank you.
[2020-01-29] MEDS ORDERED: HYDROXYCHLOROQUINE SULFATE 200 MG TAB PO SCH (21:00)
[2020-01-29] MEDS ORDERED: METFORMIN HCL 500 MG TAB PO SCH (21:00)
[2020-01-29] MEDS: DOCUSATE SODIUM 100 MG CAP PO SCH (21:00)
[2020-01-29] MEDS ORDERED: HydrALAZINE TAB 50 MG TAB PO SCH (21:00)
[2020-01-29] MEDS: TERAZOSIN HCL 1 MG CAP PO SCH (21:02)
[2020-01-29] MEDS: ATORVASTATIN 40 MG TAB PO SCH (21:02)
[2020-01-29] MEDS: carvediloL 12.5 MG TAB PO SCH (21:02)
[2020-01-29] MEDS: GABAPENTIN 300 MG CAP PO SCH (21:03)
[2020-01-29] MEDS: PIPERACILLIN/TAZOBACTAM 3.375 GM in DEXTROSE 5% 100 ML IV SCH (21:25)
[2020-01-30] MEDS: SODIUM CHLORIDE 0.9% 1000ML 1,000 ML IV SCH ×2 (03:05→11:52)
[2020-01-30] MEDS ORDERED: VANCOMYCIN HCL 1,000 MG in SODIUM CHLORIDE 0.9% 250 ML IV SCH (04:00)
[2020-01-30] MEDS: LEVOTHYROXINE SODIUM 25 MCG TABLET PO SCH (06:24)
[2020-01-30] MEDS: PIPERACILLIN/TAZOBACTAM 3.375 GM in DEXTROSE 5% 100 ML IV SCH ×3 (06:24→21:37)
[2020-01-30] MEDS: HYDROmorphone INJ 1 MG/ML SYRINGE IV PRN ×4 (06:29→23:40)
[2020-01-30 06:53] LABS: BUN Creatinine Ratio 22.5 (10-20); Creatinine Clr Calc Pharmacy 85.5 ml/min; Est GFR (African American) 90.4; Magnesium 1.8 mg/dl (1.8-2.4)
[2020-01-30 07:44] LABS: Hematocrit (blood only) 33.4 % (37-47); Hemoglobin 10.2 g/dL (12.0-16.0); Mean Corpuscular Hemoglobin 30.6 pg (25-34); Mean Corpuscular Hgb Conc 30.5 g/dL (32-36); Mean Corpuscular Volume 100.3 fL (80-100); Mean Platelet Volume 8.1 fL (7.4-10.4); Platelet Count 205 K/uL (130-400); RDW Coefficient of Variation 14.1 % (11.5-14.5); RDW Standard Deviation 50.7 fL (36.4-46.3); Red Blood Count 3.33 M/uL (4.2-5.4); White Blood Count 7.27 K/uL (4.8-10.8)
[2020-01-30] MEDS: OXYCODONE HCL IR 5 MG TAB (IMMEDIATE RELEASE) PO PRN ×3 (08:18→21:36)
[2020-01-30] MEDS: carvediloL 12.5 MG TAB PO SCH ×2 (08:20→21:31)
[2020-01-30] MEDS: PANTOprazole 40 MG TAB PO SCH (08:20)
[2020-01-30] MEDS: ASPIRIN 81 MG ECTAB PO SCH (08:20)
[2020-01-30] MEDS: DOCUSATE SODIUM 100 MG CAP PO SCH ×2 (08:21→21:31)
[2020-01-30] MEDS: GABAPENTIN 300 MG CAP PO SCH ×3 (08:21→21:31)
[2020-01-30] MEDS: AMLODIPINE BESYLATE 5 MG TAB PO SCH (08:22)
[2020-01-30] MEDS: FLUOXETINE HCL 20 MG CAP PO SCH (08:22)
--- NOTE | 2020-01-30 08:32 | Orthopedic Progress Note ---
Date of Service January 30, 2020 Assessment & Plan (1) Compression fracture of L1 lumbar vertebra: At this time we will make her n.p.o. after midnight and plan for kyphoplasty L1 as well as I&D of the lumbar seroma tomorrow. Present on Admission?: Yes Admission and Anticipated Discharge Date Admission Date: January 29, 2020 Subjective Patient complaining of back pain no leg pain. She is more comfortable in bed at this time. Physical Exam Physical Exam: On exam she is good strength testing. Results & Data ([facility]) Vital Signs (Past 12 Hours) Vital Signs Temp Pulse Resp BP Pulse Ox 01/30/20 08:03 36.7 C 68 16 201/72 H 96 01/29/20 23:03 36.7 C 67 18 161/67 H 97
[2020-01-30] MEDS: INSULIN ASPART 100 UNITS/ML 3 ML PEN SC SCH ×4 (09:04→21:44)
--- NOTE | 2020-01-30 11:41 | Electrocardiogram Report ---
Test Reason : Blood Pressure : / mmHG Vent. Rate : 061 BPM Atrial Rate : 061 BPM P-R Int : 166 ms QRS Dur : 090 ms QT Int : 456 ms P-R-T Axes : 050 058 061 degrees QTc Int : 459 ms Sinus rhythm with Premature atrial complexes Otherwise normal ECG When compared with ECG of 19-JAN-2020 02:17, Sinus rhythm has replaced Atrial fibrillation Vent. rate has decreased BY 56 BPM Nonspecific T wave abnormality no longer evident in Inferior leads Confirmed by Jim Prieto ([id number]) on 01/30/2020 11:41:20 AM Referred By: Rashaad Street Confirmed By:Willem Prieto
[2020-01-30] MEDS: VANCOMYCIN HCL 1,500 MG in SODIUM CHLORIDE 0.9% 500 ML IV SCH (13:10)
--- NOTE | 2020-01-30 14:56 | Hospitalist Progress Note ---
Date of Service January 30, 2020 Assessment & Plan (1) Postoperative back pain: L1 compression fracture Lumbar seroma S/P L3-S1 decompression and fusion on 01/[address] --Lumbar MRI:Interval L2-S1 spinal decompression and fusion. Interval development of an 8.8 x 4.5 x 13.4 cm midline posterior subcutaneous fluid collection which is felt to be postsurgical. Persistent severe T12 compression fracture with 4 mm of retropulsion but no evidence of significant canal compromise. Interval development of a superior endplate L1 compression fracture with 30% loss in height. Interval development of subtle S2 marrow edema suggesting a insufficiency fracture. --Planned for L1 kyphoplasty and I&D of lumbar seroma tomorrow N.p.o. after midnight Continue empiric antibiotics with vancomycin, Zosyn Pain control, DVT prophylaxis as per primary team (2) Leukocytosis: Urinary tract infection--POA Urine culture E. coli Continue Zosyn as above (3) Hypomagnesemia: (4) Hypokalemia: Replace electrolytes as needed monitor (5) Diabetes mellitus, type II: Hgb A1c 6.4 12/2019 Hold oral agents Utilize NovoLog per protocol while hospitalized (6) HTN (hypertension): BP elevated likely situational secondary to pain Continue amlodipine, carvedilol, hydralazine Pain control monitor (7) CAD (coronary artery disease): Stable Continue aspirin, statin, beta-pamela (8) Rheumatoid arthritis: Previously on Plaquenil and methotrexate Currently not taking meds (9) DVT prophylaxis: Teds/SCDs as per spine Ortho Disposition As per Primary Team Admission and Anticipated Discharge Date Admission Date: January 29, 2020 Subjective Patient is seen and examined at bedside Complains of low back pain radiating down her legs, right more than left Admits to having dysuria Poor appetite Denies any chest pain, shortness of breath, dizziness, nausea, abdominal pain Plan for kyphoplasty and I&D for lumbar seroma tomorrow Family at bedside Review of Systems Review of Systems: All systems reviewed & are unremarkable except as noted in HPI & below Physical Exam Physical Exam: Physical Exam: Vitals signs as noted above General Appearance:Chronic ill appearing, no apparent distress Head: normocephalic, Atraumatic Eyes: normal inspection, EOMI Neck: supple, Trachea midline Respiratory/Chest: Normal breath sounds, CTA, No accessory muscle use Cardiovascular: S1, S2, No murmur Chest: +sternal deformity--chronic Abdomen/GI:Soft, Non tender, Bowel sounds present Back:tender on palpation Extremities/Musculoskelatal:normal inspection, no edema Neurologic/Psych:AAOX3, grossly no focal neurological deficits Skin: normal color, warm Results & Data Results & Data ([facility]) Vital Signs (Past 12 Hours) Vital Signs Temp Pulse Resp BP Pulse Ox 01/30/20 11:56 68 182/75 H 01/30/20 08:03 36.7 C 68 16 201/72 H 96 Laboratory Results Short CBC 01/30/20 Range/Units 05:21 WBC 7.27 (4.8-10.8) K/uL Hgb 10.2 L (12.0-16.0) g/dL Hct 33.4 L (37-47) % Plt Count 205 (130-400) K/uL BMP 01/30/20 05:21 Sodium 138 Potassium 4.0 D Chloride 105 Carbon Dioxide 27 BUN 17 Creatinine 0.75 Glucose 136 H Calcium 8.0 L Urine 01/29/20 Range/Units 17:45 Urine Color Yellow Urine Appearance Turbid A (Clear) Urine pH 8.0 H (4.5-7.5) Ur Specific [place] 1.013 (1.000-1.030) Urine Protein 2+ H (Negative) Urine Glucose (UA) Negative (Negative)
[2020-01-30] MEDS: LACTATED RINGER'S 1,000 ML IV SCH (16:44)
[2020-01-30] MEDS: TERAZOSIN HCL 1 MG CAP PO SCH (21:30)
[2020-01-30] MEDS: ATORVASTATIN 40 MG TAB PO SCH (21:31)
[2020-01-31] MEDS ORDERED: Nursing to Pharmacy Communication SCH ×2 (01:30→15:15)
[2020-01-31] MEDS: SODIUM CHLORIDE 0.9% 1000ML 1,000 ML IV SCH (01:36)
[2020-01-31] MEDS: VANCOMYCIN HCL 1,500 MG in SODIUM CHLORIDE 0.9% 500 ML IV SCH ×2 (02:07→14:26)
[2020-01-31] MEDS ORDERED: VANCOMYCIN TROUGH ONE ×3 (03:30→15:30)
[2020-01-31] MEDS: PIPERACILLIN/TAZOBACTAM 3.375 GM in DEXTROSE 5% 100 ML IV SCH ×3 (05:28→21:50)
[2020-01-31] MEDS: LEVOTHYROXINE SODIUM 25 MCG TABLET PO SCH (05:30)
[2020-01-31 06:00] LABS: Basophils # (auto) 0.03 K/uL (0-0.2); Basophils % (auto) 0.4 %; Eosinophils # (auto) 0.17 K/uL (0-0.5); Eosinophils % (auto) 2.5 %; Hematocrit (blood only) 32.1 % (37-47); Hemoglobin 10.1 g/dL (12.0-16.0); Immature Granulocytes # (auto) 0.11 K/uL (0.00-0.02); Immature Granulocytes % (auto) 1.6 %; Lymphocytes # (auto) 1.48 K/uL (1.2-3.4); Lymphocytes % (auto) 21.5 %; Mean Corpuscular Hemoglobin 31.3 pg (25-34); Mean Corpuscular Hgb Conc 31.5 g/dL (32-36); Mean Corpuscular Volume 99.4 fL (80-100); Mean Platelet Volume 8.1 fL (7.4-10.4); Monocytes # (auto) 0.72 K/uL (0.11-0.59); Monocytes % (auto) 10.5 %; Neutrophils # (auto) 4.37 K/uL (1.4-6.5); Neutrophils % (auto) 63.5 %; Nucleated RBC # (auto) 0.02 K/uL (0-0); Nucleated RBC % (auto) 0.3 %; Platelet Count 151 K/uL (130-400); Red Blood Count 3.23 M/uL (4.2-5.4); White Blood Count 6.88 K/uL (4.8-10.8)
[2020-01-31 06:02] LABS: BUN Creatinine Ratio 16.3 (10-20); Calcium 8.3 mg/dl (8.5-10.1); Creatinine Clr Calc Pharmacy 90.3 ml/min; Est GFR (African American) 96.6; Est GFR (Non-African American) 83.3; Magnesium 1.4 mg/dl (1.8-2.4); Potassium 3.9 mmol/L (3.5-5.1)
[2020-01-31] MEDS: INSULIN ASPART 100 UNITS/ML 3 ML PEN SC SCH ×4 (06:08→21:40)
[2020-01-31] MEDS: DOCUSATE SODIUM 100 MG CAP PO SCH ×2 (07:32→21:35)
[2020-01-31] MEDS: FLUOXETINE HCL 20 MG CAP PO SCH (07:34)
[2020-01-31] MEDS: ASPIRIN 81 MG ECTAB PO SCH (07:35)
[2020-01-31] MEDS: PANTOprazole 40 MG TAB PO SCH (07:35)
[2020-01-31] MEDS: AMLODIPINE BESYLATE 5 MG TAB PO SCH (07:35)
[2020-01-31] MEDS: GABAPENTIN 300 MG CAP PO SCH ×3 (07:36→21:36)
[2020-01-31] MEDS: carvediloL 12.5 MG TAB PO SCH ×2 (07:37→21:35)
[2020-01-31] MEDS: HYDROmorphone INJ 1 MG/ML SYRINGE IV PRN ×2 (07:50→14:22)
[2020-01-31] MEDS ORDERED: fentaNYL citrate 100 MCG/2 ML VIAL ONE ×2 (08:18→10:19)
--- NOTE | 2020-01-31 08:57 | History & Physical Bridge Note ---
Date of Service January 31, 2020 History & Physical Bridge Note I have examined the patient, reviewed the History & Physical and in the interval since the performance of the History & Physical I have noted the following changes of clinical significance: no changes noted
[2020-01-31] MEDS ORDERED: BUPIVACAINE/EPINEPHRINE 0.25% 1:200,000 30 ML VIAL ONE (09:20)
[2020-01-31] MEDS ORDERED: BACITRACIN INJ 50,000 UNIT VIAL ONE (09:20)
--- NOTE | 2020-01-31 09:33 | Anesthesiology Consultation ---
Date of Service January 31, 2020 Assessment & Plan Chart Review Chart Review: Acceptable Risk for Surgery Consults Requested none History Surgery Operation Date: 01/31/20 09:05 Proposed Procedures p L1 Kyphoplasty; - Rashaad Street DO s Lumbar Seroma Incision and Drainage - Rashaad Street DO Height/Weight Height: 5 ft 10 in Weight: 106.1 kg Allergies Allergy/AdvReac Type Severity Reaction Status Date / Time nadolol AdvReac Unknown GI UPSET Verified 01/29/20 11:11 nitroglycerin AdvReac Unknown HEADACHE Verified 01/29/20 11:11 NSAIDS (Non-Steroidal AdvReac Unknown GI UPSET Verified 01/29/20 11:11 Anti-Inflamma Medications Home Medications Medication Instructions Recorded Confirmed Last Taken aspirin [Aspirin Low Dose] 81 mg PO QAM 04/02/18 01/29/20 01/28/20 atorvastatin 40 mg PO HS 04/02/18 01/29/20 01/28/20 carvedilol 12.5 mg PO BID 04/02/18 01/29/20 01/28/20 fluoxetine [Prozac] 40 mg PO QAM 04/02/18 01/29/20 01/28/20 furosemide [Lasix] 20 mg PO DAILY PRN 04/02/18 01/29/20 09/06/18 gabapentin 300 mg PO TID 04/02/18 01/29/20 01/28/20 metformin 500 mg PO BID 04/02/18 01/29/20 01/28/20 nitroglycerin 1 dose TRANSLINGUAL DIRECTED PRN 04/02/18 01/29/20 Unknown pantoprazole 40 mg PO QAM 04/02/18 01/29/20 01/28/20 terazosin 2 mg PO HS 04/02/18 01/29/20 01/28/20 amlodipine 5 mg PO QAM 03/29/19 01/29/20 01/28/20 betamethasone dipropionate 1 applic TOPICAL BID PRN 03/29/19 01/29/20 01/14/20 07:00 levothyroxine 25 mcg PO QAM 09/08/19 01/29/20 01/28/20 tramadol 50 mg PO Q6H PRN #30 tab 01/16/20 01/29/20 01/28/20 20:30 50 mg hydralazine 25 mg PO TID 01/29/20 01/29/20 Unknown methylprednisolone mg 01/29/20 Unknown Active Medications Generic Name Dose Route Start Last Admin Trade Name Alyssa PRN Reason Stop Dose Admin Amlodipine Besylate 5 mg 01/30/20 09:00 01/31/20 07:35 Norvasc PO 02/29/20 08:59 5 mg QAM [facility]OND Administration Aspirin 81 mg 01/30/20 09:00 01/31/20 07:35 Ecotrin Ectab PO 02/29/20 08:59 Not Given QAM DI[facility] Atorvastatin Calcium 40 mg 01/29/20 21:00 01/30/20 21:31 Lipitor PO 02/28/20 20:59 40 mg HS DI[facility] Administration Carvedilol 12.5 mg 01/29/20 21:00 01/31/20 07:37 Coreg PO 02/28/20 20:59 12.5 mg BID DI[facility] Administration Docusate Sodium 100 mg 01/29/20 21:00 01/31/20 07:32 Colace PO 02/28/20 20:59 Not Given BID DI[facility] Fluoxetine HCl 40 mg 01/30/20 09:00 01/31/20 07:34 Prozac PO 02/29/20 08:59 40 mg QAM [facility] Administration Gabapentin 300 mg 01/29/20 21:00 01/31/20 07:36 Neurontin PO 02/28/20 20:59 300 mg TID DI[facility] Administration Hydralazine HCl 25 mg 01/29/20 21:00 01/31/20 07:36 Apresoline PO 02/28/20 20:59 25 mg TID DI[facility] Administration Hydromorphone HCl 1 mg 01/29/20 15:59 01/31/20 07:50 Dilaudid IV 02/12/20 15:58 1 mg Q3H PRN Administration severe pain (scale 7-10) Sodium Chloride 1,000 mls @ 75 mls/hr 01/29/20 10:30 01/31/20 06:10 Nss 1000ml IV 02/28/20 10:29 75 mls/hr .[id number] [facility] Infusion Lactated Ringer's 1,000 mls @ 15 mls/hr 01/29/20 15:59 01/30/20 16:44 Lr IV 02/28/20 15:58 Not Given .Q24H DI[facility]OND Piperacillin Sod/Tazobactam 115 mls @ 28.75 mls/hr 01/29/20 22:00 01/31/20 09:10 Sod 3.375 gm/ Dextrose IV 03/11/20 21:59 Infused Q8H [facility] Infusion Protocol Vancomycin HCl 1,500 mg/ 530 mls @ 200 mls/hr 01/30/20 14:00 01/31/20 04:52 Sodium Chloride IV 03/12/20 13:59 Infused Q12H DI[facility] Infusion Protocol Insulin Aspart 0 units 01/31/20 06:00 01/31/20 06:08 Novolog Flexpen SC 03/01/20 05:59 1 units Q6 DI[facility] Administration Levothyroxine Sodium 25 mcg 01/30/20 06:30 01/31/20 05:30 Synthroid PO 02/29/20 06:29 25 mcg DAILYBB DI[facility] Administration Oxycodone HCl 5 - 10 mg 01/29/20 15:59 01/30/20 21:36 Roxicodone Immediate Rel PO 02/12/20 15:58 10 mg Q4H PRN Administration Moderate-Severe Pain Pantoprazole Sodium 40 mg 01/30/20 09:00 01/31/20 07:35 Protonix PO 02/29/20 08:59 40 mg QAM [facility] Administration Terazosin HCl 2 mg 01/29/20 21:00 01/30/20 21:30 Hytrin PO 02/28/20 20:59 2 mg HS DI[facility]OND Administration NPO Date Last Intake of Fluids: 01/31/20 Time Last Intake of Fluids: 07:30 Date Last Intake of Solids: 01/30/20 Time Last Intake of Solids: 23:59 Past Medical History Medical History CAD (coronary artery disease) 1991 - PTCA/PCI to ramus intermedius complicated by spiral dissection non-obstructive per 2017 cardiac cath Chronic back pain LLE radiculopathy CVA (cerebral vascular accident) 2017, residual unsteady, left sided weakness Depression Diabetes mellitus, type II Dyslipidemia GERD (gastroesophageal reflux disease) Hiatal hernia History of breast cancer right breast HTN (hypertension) Hypothyroidism IBS (irritable bowel syndrome) Osteoarthritis PAD (peripheral artery disease) severe right brachiocephalic stenosis and moderate to severe abdominal aortic stenosis- under surveillance by cardiovascular PAF (paroxysmal atrial fibrillation) post operative, no further reoccurance Rheumatoid arthritis Past Family History Family History Daughter Family history of reaction to anesthesia SLOW TO WAKE UP Mother Family history of diabetes mellitus Other Diabetes Heart disease Hypertension Past Surgical History Surgical History H/O repair of right rotator cuff 2013 History of back surgery 2019 History of bilateral knee arthroplasty Left (1995), right (2005) History of cardiac cath [facility]-2017 NO STENTS History of cholecystectomy 1998 History of colonoscopy History of modified radical mastectomy of right breast 2011 History of total knee replacement left revision Nasal fracture repair Status post lumbar surgery Status post renal artery angioplasty 1991 Social History Smoking Status: Former smoker Do You Dip or Chew Tobacco: No Smoking End Date: 1991 Hx Alcohol Use: No alcohol intake frequency: holidays/special occasions only Hx Substance Use: No substance use type: does not use Physical Exam Vital Signs Last Vital Signs Temp 36.6 C 01/31/20 09:00 Pulse 112 H 01/31/20 09:00 Resp 18 01/31/20 09:00 BP 152/89 H 01/31/20 09:00 Pulse Ox 96 01/31/20 09:00 Testing Laboratory Results 01/31/20 05:10 01/31/20 05:10 PT 11.3 Seconds (9.0-12.0) 01/29/20 10:56 INR 1.1 (0.9-1.1) 01/29/20 10:56 APTT 23.1 Seconds (21.0-31.0) 01/29/20 10:56 Urine Color Yellow 01/29/20 17:45 Urine Appearance Turbid (Clear) A 01/29/20 17:45 Urine pH 8.0 (4.5-7.5) H 01/29/20 17:45 Ur Specific Crane 1.013 (1.000-1.030) 01/29/20 17:45 Urine Protein 2+ (Negative) H 01/29/20 17:45 Urine Glucose (UA) Negative (Negative) 01/29/20 17:45 Urine Ketones Negative (Negative) 01/29/20 17:45 Urine Nitrite Negative (Negative) 01/29/20 17:45 Ur Leukocyte Esterase 1+ (Negative) H 01/29/20 17:45 Urine WBC (Auto) >30 /hpf (0-5) H 01/29/20 17:45 Urine RBC (Auto) 0-4 /hpf (0-4) 01/29/20 17:45 U Hyaline Cast (Auto) 1-5 /lpf (0-5) 01/29/20 17:45 U Epithel Cells (Auto) 0-5 /lpf (0-5) 01/29/20 17:45 Urine Bacteria (Auto) 2+ (Negative) H 01/29/20 17:45 01/29/20 17:45 Urine Culture - Preliminary Urine,Straight Cath Escherichia coli 01/31/20 05:57 POC Glucose 161 H
[2020-01-31] MEDS ORDERED: ATROPINE SULFATE 0.1 MG/ML 10ML SYR IV PRN (09:35)
[2020-01-31] MEDS ORDERED: METOCLOPRAMIDE HCL INJ 5 MG/ML 2 ML VIAL IV PRN ×2 (09:35→12:36)
[2020-01-31] MEDS ORDERED: ePHEDrine sulfate 50 MG/ML AMP IV PRN (09:35)
[2020-01-31] MEDS ORDERED: HYDROmorphone INJ 2 MG/ML SYR/VIAL IV PRN (09:35)
[2020-01-31] MEDS ORDERED: PROMETHAZINE HCL 12.5 MG in SODIUM CHLORIDE 0.9% 50 ML IV PRN ×2 (09:35→12:36)
[2020-01-31] MEDS ORDERED: ONDANSETRON INJ 2 MG/ML 2 ML VIAL IV PRN ×2 (09:35→12:36)
[2020-01-31] MEDS ORDERED: VANCOMYCIN HCL 1000MG/20ML VIAL ONE (10:09)
[2020-01-31] MEDS ORDERED: GENTAMICIN SULFATE 40 MG/ML 2 ML VIAL ONE (10:09)
[2020-01-31] MEDS ORDERED: PROPOFOL IV EMULSION 10 MG/ML 20 ML VIAL IV ONE (10:21)
[2020-01-31] MEDS ORDERED: LIDOCAINE HCL 2% 2 ML VIAL/AMP(20MG/ML) INFIL ONE (10:21)
[2020-01-31] MEDS ORDERED: ONDANSETRON INJ 2 MG/ML 2 ML VIAL ONE (10:21)
[2020-01-31] MEDS ORDERED: ROCURONIUM BROMIDE 10 MG/ML 5 ML VIAL IV ONE (10:21)
[2020-01-31] MEDS ORDERED: FLOSEAL HEMOSTATIC MATRIX 10ML TOP ONE (10:23)
[2020-01-31] MEDS ORDERED: PHENYLEPHRINE 100MCG/ML 5ML SYR ONE (10:30)
[2020-01-31] MEDS ORDERED: GLYCOPYRROLATE 0.2 MG/ML VIAL ONE (10:31)
[2020-01-31] MEDS ORDERED: NEOSTIGMINE METHYLSULFATE 1 MG/ML 10ML VIAL ONE (10:31)
--- NOTE | 2020-01-31 10:51 | Operative Report ---
Post Operative Report Pre & Post Diagnosis #1 L1 compression fracture. #2 lumbar hematoma I identified the patient and participated in the time-out.: Yes Procedure Operation Date: 01/31/20 09:05 Actual Procedures #1 kyphoplasty of L1 vertebral body. #2 biopsy of L1 vertebral body. #3 irrigation debridement subcutaneous lumbar hematoma with placement of 5 cc of stimulant beads. Surgeon Rashaad Street, Rolled Ham Lacer Michele Graham Estimated Blood Loss 25 Findings Consistent with Post-Op Diagnosis Specimens Cultures of lumbar hematoma Indications This is a 74-year-old female status post lumbar decompression fusion that presents with worsening back pain. With L1 compression fracture was diagnosed as well as a large hematoma. Subsequently she is here to address these issues. Description of Procedure Patient was met with identified informed consent obtained. Patient was then taken to the operative suite underwent an patient placed in the prone position the Yan table chest padded bolsters. All bony prominences well-padded eyes inspected to ensure no external pressure placed upon the. This point the lumbar spine was prepped and draped in a sterile fashion. I then opened the previous incision site along the lumbar decompression and fusion. A large hematoma was identified. Cultures were obtained. The area was then copiously irrigated with antibiotic solution. 10 round BRITTNEY drain inserted. Proximally 5 cc of stimulant beads impregnated with gentamicin and vancomycin were then placed throughout the wound. Was then closed with several layers of subcutaneous Vicryl and 4 Monocryl for final skin closure. After this complete I identified the L1 compression fracture by way of fluoroscopy. 2 small incisions were created in Kyphon working cannulas were then placed by way of a transpedicular approach into the L1 vertebral body. Took 2 core biopsies were obtained. Then placed to 15 mm balloons within the vertebral body and explained to them sequentially with fluoroscopic visualization. These were subsequently removed in approximately 6 cc of Kyphon cement injected with fluoroscopic visualization. This demonstrated excellent interdigitation within the broken bone. After this is complete the working cannulas were removed all incisions were closed with subcutaneous Vicryl and Monocryl Steri-Strips and sterile dressings placed. Patient will continue PACU stable condition. Please note Michele dominguez was present at the entire procedure involved the patient positioning complex portions of the surgery and final skin closure. I attest to the content of the Intraoperative Record and any orders documented therein. Any exceptions are noted below.
[2020-01-31] MEDS ORDERED: LABETALOL HCL IV 5 MG/ML 20ML IV ONE (11:23)
[2020-01-31] MEDS: LABETALOL HCL IV 5 MG/ML 20ML IV PRN ×2 (11:27→11:48)
--- NOTE | 2020-01-31 11:46 | Fluoroscopy Report ---
FL lumbar spine 2-3V HISTORY: 74 years-old Female L1 KYPHOPLASTY COMPARISON: MR lumbar spine 01/29/2020 TECHNIQUE: 3 spot fluoroscopic views of the lumbar spine were obtained utilizing 122.8 seconds fluoro scopy time FINDINGS: Interval kyphoplasty changes at what appears to be the T12 and L1 levels. There may be minimal cement material present within the T12 posterior elements and also within the T12-L1 disc space. Partially imaged posterior interbody malcolm and screw fusion hardware with discectomy changes of the lumbar spine. Mild levoscoliosis of the thoracolumbar junction. IMPRESSION: Fluoroscopic assistance as above. Please see procedural report for further details. ACT 112: Negative or not required by law. The above report was generated using voice recognition software. It may contain grammatical, syntax o r spelling errors. Electronically signed by: Bishnu Juarez M.D. 01/31/2020 11:44 AM
[2020-01-31] MEDS ORDERED: LABETALOL HCL IV 5 MG/ML 20ML IV PRN (11:51)
[2020-01-31] MEDS: fentaNYL citrate 100 MCG/2 ML VIAL IV PRN ×4 (11:52→12:08)
--- NOTE | 2020-01-31 12:23 | Anesthesiology Progress Note ---
Date of Service January 31, 2020 Anesthesia Post Procedure Vital Signs Vital Signs: Temp Pulse Pulse Pulse Resp BP Pulse Ox 01/31/20 12:15 87 12 165/85 H 99 01/31/20 12:10 101 H 13 181/88 H 98 01/31/20 12:00 93 H 13 198/98 H 99 01/31/20 11:50 101 H 16 186/113 H 99 01/31/20 11:40 96 H 14 213/125 H 95 01/31/20 11:30 96 H 16 201/114 H 100 01/31/20 11:20 100 H 16 219/144 H 100 01/31/20 11:13 36.4 C L 102 H 16 190/134 H 100 01/31/20 09:00 36.6 C 112 H 18 152/89 H 96 01/31/20 07:20 36.8 C 115 H 18 177/76 H 95 01/30/20 23:32 37.5 C 110 H 14 142/79 H 94 01/30/20 21:26 123 H 168/93 H 01/30/20 15:16 37.2 C 68 17 166/76 H 95 Pain Intensity Bilateral Lower Back: Pain Intensity: 8 Right Back: Pain Intensity: 8 Back: Pain Intensity: 4 Transfer of Care Handoff Completed per policy Notes Mental Status: alert / awake / arousable and participated in evaluation Patient Amnestic to Procedure: Yes Nausea / Vomiting: adequately controlled Pain: adequately controlled Airway Patency, RR, SpO2: stable & adequate BP & HR: stable & adequate Hydration State: stable & adequate Anesthetic Complications: no major complications apparent
[2020-01-31] MEDS ORDERED: FAMOTIDINE 20 MG TAB PO PRN (12:36)
[2020-01-31] MEDS ORDERED: LORazepam 0.5 MG TAB PO PRN (12:36)
[2020-01-31] MEDS ORDERED: MAGNESIUM HYDROXIDE SUSP 30 ML UDC PO PRN (12:36)
[2020-01-31] MEDS ORDERED: LORazepam 0.5 MG/1 ML VIAL IV PRN (12:36)
[2020-01-31] MEDS ORDERED: ALUMINUM/MAGNESIUM SUSP 30 ML UDC PO PRN (12:36)
[2020-01-31] MEDS ORDERED: NALOXONE HCL 0.4 MG/1 ML VIAL/CARP IV PRN (12:36)
[2020-01-31] MEDS ORDERED: DO NOT ADMINISTER PNEUMOCOCCAL VACCINE PRN (12:36)
[2020-01-31] MEDS ORDERED: SOD PHOSPHATE/SOD BIPHOSPHATE ENEMA 132 ML BTL PR PRN (12:36)
[2020-01-31] MEDS ORDERED: DO NOT ADMINISTER FLU VACCINE PRN (12:36)
[2020-01-31] MEDS ORDERED: ONDANSETRON 4 MG OD TAB PO PRN (12:36)
[2020-01-31] MEDS ORDERED: ACETAMINOPHEN 1,000 MG/100 ML VIAL IV PRN (12:36)
[2020-01-31] MEDS ORDERED: bisacodyL 10 MG SUPP PR PRN (12:36)
[2020-01-31] MEDS ORDERED: SODIUM CHLORIDE 0.9% 1000ML 1,000 ML IV SCH (13:00)
--- NOTE | 2020-01-31 16:12 | Hospitalist Progress Note ---
Date of Service January 31, 2020 Assessment & Plan (1) Postoperative back pain: L1 compression fracture Lumbar seroma S/P L3-S1 decompression and fusion on 01/[address] --Lumbar MRI:Interval L2-S1 spinal decompression and fusion. Interval development of an 8.8 x 4.5 x 13.4 cm midline posterior subcutaneous fluid collection which is felt to be postsurgical. Persistent severe T12 compression fracture with 4 mm of retropulsion but no evidence of significant canal compromise. Interval development of a superior endplate L1 compression fracture with 30% loss in height. Interval development of subtle S2 marrow edema suggesting a insufficiency fracture. --Appreciate Ortho input and recommendation --Status post L1 kyphoplasty and I&D of lumbar seroma on 01/31/2020 Continue empiric antibiotics with vancomycin, Zosyn Remains stable following surgery (2) Leukocytosis: Urinary tract infection--POA Urine culture E. coli and is pansensitive Continue Zosyn as above and change to oral antibiotic in a day or 2 White cell count has been normalized (3) Hypomagnesemia: Remains low at 1.4 Will supplement (4) Hypokalemia: Replace electrolytes as needed monitor -normalized (5) Diabetes mellitus, type II: Hgb A1c 6.4 12/2019 Hold oral agents Utilize NovoLog per protocol while hospitalized (6) HTN (hypertension): BP elevated likely situational secondary to pain Continue amlodipine, carvedilol, hydralazine Pain control monitor (7) CAD (coronary artery disease): Stable Continue aspirin, statin, beta-pamela (8) Rheumatoid arthritis: Previously on Plaquenil and methotrexate Currently not taking meds (9) DVT prophylaxis: Teds/SCDs as per spine Ortho Disposition As per Primary Team Admission and Anticipated Discharge Date Admission Date: January 29, 2020 Subjective The patient was seen and examined in medical floor She is a status post a long kyphoplasty and I&D for lumbar seroma Complains pain at the back but denies any other symptoms Review of Systems Review of Systems: All systems reviewed and are unremarkable except as noted below Musculoskeletal: + back pain Status post L1 kyphoplasty and drainage of lumbar seroma Physical Exam Physical Exam: Lying in bed with some discomfort due to back pain Constitutional: well developed, well nourished, + acute distress (Minimal distress due to back pain) and + morbidly obese; not ill appearing Eyes: PERRL, conjunctivae normal, anicteric sclerae ENMT: external ear and nose normal, oropharynx normal Neck: trachea midline, no thyromegaly Respiratory: normal respiratory effort; no respiratory distress Auscultation: lungs clear to auscultation bilaterally Cardiovascular: Rate/Rhythm: regular rate and regular rhythm Heart Sounds: no murmur Gastrointestinal (Abdomen): Inspection/Auscultation: abdomen normal to inspection and normal bowel sounds; abdomen not distended Percussion/Palpation: abdomen soft; abdomen nontender Musculoskeletal: Has localized back pain at the lumbar region without radiation Neurologic: moves all extremities; no focal motor deficits Alert, awake and oriented x3 Results & Data Results & Data ([facility]) Vital Signs (Past 12 Hours) Vital Signs Temp Pulse Pulse Pulse Resp BP Pulse Ox 01/31/20 15:42 36.5 C 89 17 163/72 H 99 01/31/20 14:35 36.5 C 84 16 162/77 H 99 01/31/20 13:35 100 H 16 157/81 H 98 01/31/20 13:05 91 H 16 157/80 H 98 01/31/20 12:40 36.5 C 95 H 16 169/63 H 98 01/31/20 12:15 87 12 165/85 H 99 01/31/20 12:10 101 H 13 181/88 H 98 01/31/20 12:00 93 H 13 198/98 H 99 01/31/20 11:50 101 H 16 186/113 H 99 01/31/20 11:40 96 H 14 213/125 H 95 01/31/20 11:30 96 H 16 201/114 H 100 01/31/20 11:20 100 H 16 219/144 H 100 01/31/20 11:13 36.4 C L 102 H 16 190/134 H 100 01/31/20 09:00 36.6 C 112 H 18 152/89 H 96 01/31/20 07:20 36.8 C 115 H 18 177/76 H 95 Laboratory Results Short CBC 01/31/20 Range/Units 05:10 WBC 6.88 (4.8-10.8) K/uL Hgb 10.1 L (12.0-16.0) g/dL Hct 32.1 L (37-47) % Plt Count 151 (130-400) K/uL BMP 01/31/20 05:10 Sodium 141 Potassium 3.9 Chloride 109 H Carbon Dioxide 27 BUN 12 Creatinine 0.71 Glucose 148 H Calcium 8.3 L Medications Administered Current Inpatient Medications Acetaminophen (Tylenol) 1,000 mg PO Q8H PRN PRN Reason: MILD Pain Scale 1,2,3 & Pre PT Stop: 03/01/20 12:35 Al Hydrox/Mg Hydrox/Simethicone (Maalox) 30 ml PO Q6H PRN PRN Reason: Dyspepsia Stop: 03/01/20 12:35 Amlodipine Besylate (Norvasc) 5 mg PO QAM [facility] Stop: 02/29/20 08:59 Last Admin: 01/31/20 07:35 Dose: 5 mg Documented by: Aspirin (Ecotrin Ectab) 81 mg PO QAM [facility] Stop: 02/29/20 08:59 Last Admin: 01/31/20 07:35 Dose: Not Given Documented by: Atorvastatin Calcium (Lipitor) 40 mg PO [facility] Stop: 02/28/20 20:59 Last Admin: 01/30/20 21:31 Dose: 40 mg Documented by: Atropine Sulfate (Atropine Sulfate) 0.5 mg IV Q1M PRN PRN Reason: PACU Use-HR<40 &/or Bradycardi Stop: 01/31/20 17:35 Bisacodyl (Dulcolax) 10 mg IN DAILY PRN PRN Reason: Constipation Stop: 03/01/20 12:35 Carvedilol (Coreg) 12.5 mg PO BID [facility] Stop: 02/28/20 20:59 Last Admin: 01/31/20 07:37 Dose: 12.5 mg Documented by: Dextrose (Dextrose 50%) 25 - 50 ml IV UD PRN; Protocol PRN Reason: Hypoglycemia Protocol Stop: 02/28/20 17:07 Diphenhydramine HCl (Benadryl Capsule) 25 mg PO Q6H PRN PRN Reason: Allergic Rhinitis/Insomnia Stop: 03/01/20 12:35 Docusate Sodium (Colace) 100 mg PO BID [facility] Stop: 02/28/20 20:59 Last Admin: 01/31/20 07:32 Dose: Not Given Documented by: Ephedrine Sulfate (Ephedrine Sulfate) 5 mg IV Q5M PRN PRN Reason: PACU Use Only-SBP<90 mmHg Stop: 01/31/20 17:35 Famotidine (Pepcid) 20 mg PO Q12H PRN PRN Reason: Dyspepsia Stop: 03/01/20 12:35 Fentanyl Citrate (Fentanyl Citrate) 25 mcg IV Q5M PRN PRN Reason: PACU Use Only-Pain Stop: 01/31/20 17:35 Last Admin: 01/31/20 12:08 Dose: 25 mcg Documented by: Fluoxetine HCl (Prozac) 40 mg PO QAM [facility] Stop: 02/29/20 08:59 Last Admin: 01/31/20 07:34 Dose: 40 mg Documented by: Furosemide (Lasix) 20 mg PO DAILY PRN PRN Reason: Weight Gain Stop: 02/28/20 15:58 Gabapentin (Neurontin) 300 mg PO TID [facility] Stop: 02/28/20 20:59 Last Admin: 01/31/20 14:31 Dose: 300 mg Documented by: Glucagon (Glucagen) 1 mg SQ UD PRN; Protocol PRN Reason: Hypoglycemia Protocol Stop: 02/28/20 17:07 Glucose (Dex4 Glucose) 4 - 8 tabs PO UD PRN; Protocol PRN Reason: Hypoglycemia Protocol Stop: 02/28/20 17:07 Glucose (Glucose 40%) 15 - 30 gm PO UD PRN; Protocol PRN Reason: Hypoglycemia Protocol Stop: 02/28/20 17:07 Hydralazine HCl (Apresoline) 25 mg PO TID [facility] Stop: 02/28/20 20:59 Last Admin: 01/31/20 14:31 Dose: 25 mg Documented by: Hydromorphone HCl (Dilaudid) 0.5 mg IV Q3H PRN PRN Reason: moderate pain (scale 4-6) Stop: 02/12/20 15:58 Hydromorphone HCl (Dilaudid) 1 mg IV Q3H PRN PRN Reason: severe pain (scale 7-10) Stop: 02/12/20 15:58 Last Admin: 01/31/20 14:22 Dose: 1 mg Documented by: Hydromorphone HCl (Dilaudid) 0.5 mg IV Q5M PRN PRN Reason: PACU Use Only-Pain Stop: 01/31/20 17:35 Hydroxyzine HCl (Vistaril) 25 mg PO Q8H PRN PRN Reason: Anxiety Stop: 03/01/20 12:35 Lorazepam (Ativan) 1 mg in 2 mls @ 2 mls/min IV Q6H PRN PRN Reason: Anxiety/Spasms Stop: 02/28/20 15:58 Piperacillin Sod/Tazobactam (Sod 3.375 gm/ Dextrose) 115 mls @ 28.75 mls/hr IV Q8H [facility]; Protocol Stop: 03/11/20 21:59 Last Admin: 01/31/20 14:25 Dose: 28.8 mls/hr Documented by: Vancomycin HCl 1,500 mg/ (Sodium Chloride) 530 mls @ 200 mls/hr IV Q12H [facility]; Protocol Stop: 03/12/20 13:59 Last Admin: 01/31/20 14:26 Dose: 200 mls/hr Documented by: Promethazine HCl 12.5 mg/ (Sodium Chloride) 50.5 mls @ 204 mls/hr IV ONCE PRN PRN Reason: PACU Use Only-Nausea/Vomiting Stop: 01/31/20 17:35 Acetaminophen (Ofirmev) 1,000 mg in 100 mls @ 400 mls/hr IV Q8H PRN PRN Reason: MILD Pain Rating 1,2,3 Stop: 02/01/20 12:35 Lorazepam (Ativan) 0.5 mg in 1 mls @ 1 mls/min IV Q8H PRN PRN Reason: Sedation/Anxiety Stop: 03/01/20 12:35 Sodium Chloride (Nss 1000ml) 1,000 mls @ 75 mls/hr IV .[id number] [facility] Stop: 03/01/20 12:59 Last Admin: 01/31/20 13:05 Dose: 75 mls/hr Documented by: Promethazine HCl 12.5 mg/ (Sodium Chloride) 50.5 mls @ 202 mls/hr IV Q6H PRN PRN Reason: Nausea And Vomiting Stop: 03/01/20 12:35 Vancomycin HCl 1,500 mg/ (Sodium Chloride) 530 mls @ 200 mls/hr IV Q18H [facility]; Protocol Stop: 03/14/20 11:59 Influenza Virus Vaccine Quadrival (Flu Vaccine, Do Not Administer) 1 ea N/A PRN PRN PRN Reason: Notification Stop: 03/01/20 12:35 Insulin Aspart (Novolog Flexpen) 0 units SC ACHS [facility] Stop: 03/01/20 16:29 Labetalol HCl (Normodyne) 10 mg IV Q5M PRN PRN Reason: PACU Use-SBP>160 or DBP>100 Stop: 01/31/20 19:51 Last Admin: 01/31/20 12:04 Dose: 10 mg Documented by: Levothyroxine Sodium (Synthroid) 25 mcg PO DAILYBB [facility] Stop: 02/29/20 06:29 Last Admin: 01/31/20 05:30 Dose: 25 mcg Documented by: Lorazepam (Ativan) 1 mg PO Q6H PRN PRN Reason: Anxiety/spasms Stop: 02/28/20 15:58 Lorazepam (Ativan) 0.5 mg PO Q8H PRN PRN Reason: Sedation/Anxiety Stop: 03/01/20 12:35 Magnesium Hydroxide (Milk Of Magnesia) 30 ml PO DAILY PRN PRN Reason: Constipation Stop: 03/01/20 12:35 Metoclopramide HCl (Reglan) 10 mg IV ONCE PRN PRN Reason: PACU Use Only-Nausea/Vomiting Stop: 01/31/20 17:35 Metoclopramide HCl (Reglan) 10 mg IV Q6H PRN PRN Reason: Nausea &/or Vomiting Stop: 03/01/20 12:35 Miscellaneous (Carbohydrates For Hypoglycemia) 15 - 30 gm PO UD PRN PRN Reason: Hypoglycemia Protocol Stop: 02/28/20 17:07 Miscellaneous Information (Consult) 1 ea N/A UD PRN PRN Reason: Consult Stop: 02/28/20 13:42 Miscellaneous Information (Consult) 1 ea N/A UD PRN PRN Reason: Consult Stop: 02/28/20 17:02 Naloxone HCl (Narcan) 0.1 mg IV Q5M PRN; Protocol PRN Reason: Oversedation/Resp Depression Stop: 03/01/20 12:35 Nitroglycerin (Nitrostat) 0.4 mg SL Q5M PRN PRN Reason: CHEST PAIN Stop: 02/28/20 16:11 Ondansetron HCl (Zofran) 4 mg IV ONCE PRN PRN Reason: PACU Use Only-Nausea/Vomiting Stop: 01/31/20 17:35 Ondansetron HCl (Zofran) 4 mg IV Q6H PRN PRN Reason: Nausea And Vomiting Stop: 03/01/20 12:35 Ondansetron HCl (Zofran Odt) 4 mg PO Q6H PRN PRN Reason: Nausea Stop: 03/01/20 12:35 Oxycodone HCl (Roxicodone Immediate Rel) 5 - 10 mg PO Q4H PRN PRN Reason: Moderate-Severe Pain Stop: 02/12/20 15:58 Last Admin: 01/30/20 21:36 Dose: 10 mg Documented by: Pantoprazole S[facility] ([facility]ix) [facility] [place]: 02/29/20 08:59 Last Admin: 01/31/20 07:35 Dose: 40 mg Documented by: Pneumococcal Polyvalent Vaccine (Pneumococcal Vacc, Do Not Administer) 1 ea N/A PRN PRN PRN Reason: Notification Stop: 03/01/20 12:35 Polyethylene Glycol (Miralax Powder Packet) 17 gm PO Q6 [facility] Stop: 03/02/20 05:59 Senna/Docusate Sodium (Senokot S) 2 tab PO [facility] Stop: 03/01/20 20:59 Sodium Biphosphate/Sodium Phosphate (Fleet Enema) 132 ml IN ONE PRN PRN Reason: Constipation Stop: 03/01/20 12:35 Terazosin HCl (Hytrin) 2 mg PO HS [facility] Stop: 02/28/20 20:59 Last Admin: 01/30/20 21:30 Dose: 2 mg Documented by: Tramadol HCl (Ultram) 50 mg PO Q6H PRN PRN Reason: pain, moderate Stop: 02/28/20 15:58 Tramadol HCl (Ultram) 50 - 100 mg PO Q4H PRN PRN Reason: Moderate-Severe Pain Stop: 02/28/20 15:58
[2020-01-31] MEDS: OXYCODONE HCL IR 5 MG TAB (IMMEDIATE RELEASE) PO PRN ×2 (16:38→21:49)
[2020-01-31] MEDS: MAGNESIUM SULFATE / D5W 1 GM/100 ML BAG IV SCH ×2 (17:30→19:49)
--- NOTE | 2020-01-31 19:50 | Pharmacy Report ---
Pharmacy Abx Dose Short Note - Date of Service January 31, 2020 - Assessment & Plan Assessment * 74 year old F receiving VANCOMYCIN + ZOSYN for treatment of lumbar hematoma/seroma and UTI * Day # 3 of antimicrobial therapy * e coli growing in urine cx is godinez-sensitive - perhaps Zosyn could be deon scalated * Patient to OR today for irrigation debridement subcutaneous lumbar hematoma. Cultures were also collected * Patient is afebrile, no leukocytosis noted on today's labs, non-hypotensive * Renal fxn appears to be stable / unchanged Plan Vancomycin * Trough level of 19.8 mcg/mL is therapeutic. This level was drawn at the appropriate time and prior doses were hung on schedule. This level was drawn prior to achieving steady state and will likely continue to rise w/ repeat dosing (drawn after 2 maint doses) * Change to 1500 mg (~14mg/kg) IV every 18 hours - next dose / @ 1000 to allow for additional time to eliminate last dose * Goal trough level for spinal hematoma/seroma : 10 to 15 mcg/mL, however 15-20 mcg/mL acceptable given proximity to bone and recent surgery * Will repeat trough in 2-3 days if therapy to continue Zosyn * eCrCl > 20, BMI < 35, continue 3.375gm exgt-infusion Q 8 hrs * consider deescalation in near future based upon cx results Pharmacy will continue to follow and will adjust dose/frequency as necessary. Thank you.
[2020-01-31] MEDS: DOCUSATE SODIUM/SENNA 50/8.6MG TAB PO SCH (21:35)
[2020-01-31] MEDS: TERAZOSIN HCL 1 MG CAP PO SCH (21:35)
[2020-01-31] MEDS: ATORVASTATIN 40 MG TAB PO SCH (21:36)
[2020-01-31] MEDS: ACETAMINOPHEN 500 MG TAB PO PRN (21:48)
[2020-02-01] MEDS: OXYCODONE HCL IR 5 MG TAB (IMMEDIATE RELEASE) PO PRN ×4 (03:46→21:11)
[2020-02-01 06:00] LABS: Basophils # (auto) 0.02 K/uL (0-0.2); Basophils % (auto) 0.3 %; Eosinophils # (auto) 0.13 K/uL (0-0.5); Eosinophils % (auto) 1.7 %; Hematocrit (blood only) 29.9 % (37-47); Hemoglobin 9.5 g/dL (12.0-16.0); Immature Granulocytes # (auto) 0.07 K/uL (0.00-0.02); Immature Granulocytes % (auto) 0.9 %; Lymphocytes # (auto) 1.56 K/uL (1.2-3.4); Lymphocytes % (auto) 20.1 %; Mean Corpuscular Hemoglobin 31.5 pg (25-34); Mean Corpuscular Hgb Conc 31.8 g/dL (32-36); Mean Platelet Volume 7.9 fL (7.4-10.4); Monocytes # (auto) 0.89 K/uL (0.11-0.59); Monocytes % (auto) 11.4 %; Neutrophils # (auto) 5.11 K/uL (1.4-6.5); Neutrophils % (auto) 65.6 %; Platelet Count 129 K/uL (130-400); RDW Coefficient of Variation 14.1 % (11.5-14.5); RDW Standard Deviation 49.7 fL (36.4-46.3); Red Blood Count 3.02 M/uL (4.2-5.4); White Blood Count 7.78 K/uL (4.8-10.8)
[2020-02-01] MEDS: POLYETHYLENE (MIRALAX) 17 GM PACK PO SCH ×3 (06:05→18:18)
[2020-02-01] MEDS: LEVOTHYROXINE SODIUM 25 MCG TABLET PO SCH (06:05)
[2020-02-01] MEDS: PIPERACILLIN/TAZOBACTAM 3.375 GM in DEXTROSE 5% 100 ML IV SCH ×3 (06:06→21:22)
[2020-02-01 06:41] LABS: BUN Creatinine Ratio 13.7 (10-20); Calcium 8.5 mg/dl (8.5-10.1); Creatinine Clr Calc Pharmacy 91.6 ml/min; Est GFR (African American) 98.2; Est GFR (Non-African American) 84.8; Magnesium 1.5 mg/dl (1.8-2.4); Phosphorus 2.7 mg/dl (2.5-4.9); Potassium 3.9 mmol/L (3.5-5.1)
[2020-02-01] MEDS: FLUOXETINE HCL 20 MG CAP PO SCH (07:48)
[2020-02-01] MEDS: carvediloL 12.5 MG TAB PO SCH ×2 (07:48→21:10)
[2020-02-01] MEDS: ASPIRIN 81 MG ECTAB PO SCH (07:49)
[2020-02-01] MEDS: GABAPENTIN 300 MG CAP PO SCH ×3 (07:49→21:10)
[2020-02-01] MEDS: PANTOprazole 40 MG TAB PO SCH (07:49)
[2020-02-01] MEDS: DOCUSATE SODIUM 100 MG CAP PO SCH ×2 (07:50→21:09)
[2020-02-01] MEDS: AMLODIPINE BESYLATE 5 MG TAB PO SCH (07:50)
--- NOTE | 2020-02-01 07:53 | Orthopedic Progress Note ---
Date of Service February 01, 2020 Assessment & Plan (1) Compression fracture of L1 lumbar vertebra: Patient's back pain is improved dramatically after the kyphoplasty and evacuation hematoma. Intraoperatively I did not a appreciate any evidence of gross infection. She does have antibiotic beads placed. The drain is in place. We will initiate physical therapy today. Discontinue her [place]. Hopefully she will be able to discharge home the next few days on oral antibiotics. Present on Admission?: Yes Admission and Anticipated Discharge Date Admission Date: January 29, 2020 Subjective Back pain improved. No leg pain. Physical Exam Physical Exam: Patient is good strength testing appears comfortable. Results & Data ([facility]) Vital Signs (Past 12 Hours) Vital Signs Temp Pulse Pulse Resp BP Pulse Ox 02/01/20 03:35 36.7 C 111 H 20 158/90 H 97 01/31/20 23:50 36.5 C 104 H 18 154/71 H 96 01/31/20 21:33 110 H 160/80 H 01/31/20 20:27 156/78 H 01/31/20 20:06 36.6 C 93 H 17 95
[2020-02-01] MEDS ORDERED: MAGNESIUM OXIDE 400 MG TAB PO ONE (08:45)
[2020-02-01] MEDS: HYDROmorphone INJ 1 MG/ML SYRINGE IV PRN ×3 (09:14→16:46)
[2020-02-01] MEDS: INSULIN ASPART 100 UNITS/ML 3 ML PEN SC SCH ×4 (09:15→21:26)
[2020-02-01] MEDS ORDERED: VANCOMYCIN HCL 1,500 MG in SODIUM CHLORIDE 0.9% 500 ML IV SCH ×2 (10:00→12:00)
[2020-02-01] MEDS: TRAMADOL HCL 50 MG TABLET PO PRN (10:03)
--- NOTE | 2020-02-01 11:46 | Hospitalist Progress Note ---
Date of Service February 01, 2020 Assessment & Plan (1) Postoperative back pain: L1 compression fracture Lumbar seroma S/P L3-S1 decompression and fusion on 01/[address] --Lumbar MRI:Interval L2-S1 spinal decompression and fusion. Interval development of an 8.8 x 4.5 x 13.4 cm midline posterior subcutaneous fluid collection which is felt to be postsurgical. Persistent severe T12 compression fracture with 4 mm of retropulsion but no evidence of significant canal compromise. Interval development of a superior endplate L1 compression fracture with 30% loss in height. Interval development of subtle S2 marrow edema suggesting a insufficiency fracture. --Appreciate Ortho input and recommendation --Status post L1 kyphoplasty and I&D of lumbar seroma on 01/31/2020 Continue empiric antibiotics with vancomycin, Zosyn Complains of more pain at the back otherwise is stable Has been receiving intravenous pain medications (2) Leukocytosis: Urinary tract infection--POA Urine culture E. coli and is pansensitive Continue Zosyn as above and change to oral antibiotic in a day or 2 White cell count has been normalized No signs of overt infection We will change antibiotic to oral Augmentin on discharge which will cover UTI and surgical wound at the back Antibiotics will be continued for a total of 7 days (3) Hypomagnesemia: Remains low at 1.4 Will supplement-magnesium remains low at 1.5 We will supplement more (4) Hypokalemia: Replace electrolytes as needed monitor -normalized (5) Diabetes mellitus, type II: Hgb A1c 6.4 12/2019 Hold oral agents Utilize NovoLog per protocol while hospitalized (6) HTN (hypertension): BP elevated likely situational secondary to pain Continue amlodipine, carvedilol, hydralazine Pain control Remains on the upper side at 163/82 this morning We will continue current medications (7) CAD (coronary artery disease): Stable Continue aspirin, statin, beta-pamela (8) Rheumatoid arthritis: Previously on Plaquenil and methotrexate Currently not taking meds (9) DVT prophylaxis: Teds/SCDs as per spine Ortho Disposition As per Primary Team Admission and Anticipated Discharge Date Admission Date: January 29, 2020 Subjective The patient was seen and examined in medical floor She is a status post a long kyphoplasty and I&D for lumbar seroma on 01/31/20 Complains pain at the back but denies any other symptoms 02/01/2020 Patient was seen and examined in medical floor She complains today of some pain at the back with radiation to legs Denies any chest pain or palpitation No fever and/or chills, no abdominal pain, nausea and/or vomiting Review of Systems Review of Systems: All systems reviewed and are unremarkable except as noted below Musculoskeletal: + back pain Status post L1 kyphoplasty and drainage of lumbar seroma Physical Exam Physical Exam: Lying in bed with some discomfort due to back pain Constitutional: well developed, well nourished, + acute distress (Minimal distress due to back pain) and + morbidly obese; not ill appearing Eyes: PERRL, conjunctivae normal, anicteric sclerae ENMT: external ear and nose normal, oropharynx normal Neck: trachea midline, no thyromegaly Respiratory: normal respiratory effort; no respiratory distress Auscultation: lungs clear to auscultation bilaterally Cardiovascular: Rate/Rhythm: regular rate and regular rhythm Heart Sounds: no murmur Gastrointestinal (Abdomen): Inspection/Auscultation: abdomen normal to inspection and normal bowel sounds; abdomen not distended Percussion/Palpation: abdomen soft; abdomen nontender Musculoskeletal: Has severe back pain with radiation to legs Neurologic: moves all extremities; no focal motor deficits Alert, awake and oriented x3 Results & Data Results & Data ([facility]) Vital Signs (Past 12 Hours) Vital Signs Temp Pulse Pulse Resp BP Pulse Ox 02/01/20 08:10 37.0 C 105 H 16 163/82 H 96 02/01/20 03:35 36.7 C 111 H 20 158/90 H 97 01/31/20 23:50 36.5 C 104 H 18 154/71 H 96 Laboratory Results Short CBC 02/01/20 Range/Units 05:49 WBC 7.78 (4.8-10.8) K/uL Hgb 9.5 L (12.0-16.0) g/dL Hct 29.9 L (37-47) % Plt Count 129 L (130-400) K/uL BMP 02/01/20 05:49 Sodium 139 Potassium 3.9 Chloride 108 H Carbon Dioxide 27 BUN 10 Creatinine 0.70 Glucose 152 H Calcium 8.5 Medications Administered Current Inpatient Medications Acetaminophen (Tylenol) 1,000 mg PO Q8H PRN PRN Reason: MILD Pain Scale 1,2,3 & Pre PT Stop: 03/01/20 12:35 Last Admin: 01/31/20 21:48 Dose: 1,000 mg Documented by: Al Hydrox/Mg Hydrox/Simethicone (Maalox) 30 ml PO Q6H PRN PRN Reason: Dyspepsia Stop: 03/01/20 12:35 Amlodipine Besylate ([facility]) [facility] Stop: 02/29/20 08:59 Last Admin: 02/01/20 07:50 Dose: 5 mg Documented by: Aspirin (Ecotrin Ectab) 81 mg PO QAM [facility] Stop: 02/29/20 08:59 Last Admin: 02/01/20 07:49 Dose: 81 mg Documented by: Atorvastatin Calcium (Lipitor) 40 mg PO HS [facility] Stop: 02/28/20 20:59 Last Admin: 01/31/20 21:36 Dose: 40 mg Documented by: Bisacodyl (Dulcolax) 10 mg DE DAILY PRN PRN Reason: Constipation Stop: 03/01/20 12:35 Carvedilol (Coreg) 12.5 mg PO BID [facility] Stop: 02/28/20 20:59 Last Admin: 02/01/20 07:48 Dose: 12.5 mg Documented by: Dextrose (Dextrose 50%) 25 - 50 ml IV UD PRN; Protocol PRN Reason: Hypoglycemia Protocol Stop: 02/28/20 17:07 Diphenhydramine HCl (Benadryl Capsule) 25 mg PO Q6H PRN PRN Reason: Allergic Rhinitis/Insomnia Stop: 03/01/20 12:35 Docusate Sodium (Colace) 100 mg PO BID [facility] Stop: 02/28/20 20:59 Last Admin: 02/01/20 07:50 Dose: 100 mg Documented by: Famotidine (Pepcid) 20 mg PO Q12H PRN PRN Reason: Dyspepsia Stop: 03/01/20 12:35 Fluoxetine HCl (Prozac) 40 mg PO QAM [facility] Stop: 02/29/20 08:59 Last Admin: 02/01/20 07:48 Dose: 40 mg Documented by: Furosemide (Lasix) 20 mg PO DAILY PRN PRN Reason: Weight Gain Stop: 02/28/20 15:58 Gabapentin (Neurontin) 300 mg PO TID [facility] Stop: 09/02/20 20:59 Last Admin: 02/01/20 07:49 Dose: 300 mg Documented by: Glucagon (Glucagen) 1 mg SQ UD PRN; Protocol PRN Reason: Hypoglycemia Protocol Stop: 02/28/20 17:07 Glucose (Dex4 Glucose) 4 - 8 tabs PO UD PRN; Protocol PRN Reason: Hypoglycemia Protocol Stop: 02/28/20 17:07 Glucose (Glucose 40%) 15 - 30 gm PO UD PRN; Protocol PRN Reason: Hypoglycemia Protocol Stop: 02/28/20 17:07 Hydralazine HCl (Apresoline) 25 mg PO TID [facility] Stop: 02/28/20 20:59 Last Admin: 02/01/20 07:50 Dose: 25 mg Documented by: Hydromorphone HCl (Dilaudid) 0.5 mg IV Q3H PRN PRN Reason: moderate pain (scale 4-6) Stop: 02/12/20 15:58 Hydromorphone HCl (Dilaudid) 1 mg IV Q3H PRN PRN Reason: severe pain (scale 7-10) Stop: 02/12/20 15:58 Last Admin: 02/01/20 09:14 Dose: 1 mg Documented by: Hydroxyzine HCl (Vistaril) 25 mg PO Q8H PRN PRN Reason: Anxiety Stop: 03/01/20 12:35 Lorazepam (Ativan) 1 mg in 2 mls @ 2 mls/min IV Q6H PRN PRN Reason: Anxiety/Spasms Stop: 02/28/20 15:58 Piperacillin Sod/Tazobactam (Sod 3.375 gm/ Dextrose) 115 mls @ 28.75 mls/hr IV Q8H [facility]; Protocol Stop: 03/11/20 21:59 Last Infusion: 02/01/20 10:11 Dose: Infused Documented by: Acetaminophen (Ofirmev) 1,000 mg in 100 mls @ 400 mls/hr IV Q8H PRN PRN Reason: MILD Pain Rating 1,2,3 Stop: 02/01/20 12:35 Lorazepam (Ativan) 0.5 mg in 1 mls @ 1 mls/min IV Q8H PRN PRN Reason: Sedation/Anxiety Stop: 03/01/20 12:35 Promethazine HCl 12.5 mg/ (Sodium Chloride) 50.5 mls @ 202 mls/hr IV Q6H PRN PRN Reason: Nausea And Vomiting Stop: 03/01/20 12:35 Influenza Virus Vaccine Quadrival (Flu Vaccine, Do Not Administer) 1 ea N/A PRN PRN PRN Reason: Notification Stop: 03/01/20 12:35 Insulin Aspart (Novolog Flexpen) 0 units SC ACHS [facility] Stop: 03/01/20 16:29 Last Admin: 02/01/20 09:15 Dose: 3 units Documented by: Levothyroxine Sodium (Synthroid) 25 mcg PO DAILYBB [facility] Stop: 02/29/20 06:29 Last Admin: 02/01/20 06:05 Dose: 25 mcg Documented by: Lorazepam (Ativan) 1 mg PO Q6H PRN PRN Reason: Anxiety/spasms Stop: 02/28/20 15:58 Lorazepam (Ativan) 0.5 mg PO Q8H PRN PRN Reason: Sedation/Anxiety Stop: 03/01/20 12:35 Magnesium Hydroxide (Milk Of Magnesia) 30 ml PO DAILY PRN PRN Reason: Constipation Stop: 03/01/20 12:35 Metoclopramide HCl (Reglan) 10 mg IV Q6H PRN PRN Reason: Nausea &/or Vomiting Stop: 03/01/20 12:35 Miscellaneous (Carbohydrates For Hypoglycemia) 15 - 30 gm PO UD PRN PRN Reason: Hypoglycemia Protocol Stop: 02/28/20 17:07 Miscellaneous Information (Consult) 1 ea N/A UD PRN PRN Reason: Consult Stop: 02/28/20 17:02 Naloxone HCl (Narcan) 0.1 mg IV Q5M PRN; Protocol PRN Reason: Oversedation/Resp Depression Stop: 03/01/20 12:35 Nitroglycerin (Nitrostat) 0.4 mg SL Q5M PRN PRN Reason: CHEST PAIN Stop: 02/28/20 16:11 Ondansetron HCl (Zofran) 4 mg IV Q6H PRN PRN Reason: Nausea And Vomiting Stop: 03/01/20 12:35 Ondansetron HCl (Zofran Odt) 4 mg PO Q6H PRN PRN Reason: Nausea Stop: 03/01/20 12:35 Oxycodone HCl (Roxicodone Immediate Rel) 5 - 10 mg PO Q4H PRN PRN Reason: Moderate-Severe Pain Stop: 02/12/20 15:58 Last Admin: 02/01/20 08:15 Dose: 10 mg Documented by: Pantoprazole Sodium (Protonix) 40 mg PO QAM [facility] Stop: 02/29/20 08:59 Last Admin: 02/01/20 07:49 Dose: 40 mg Documented by: Pneumococcal Polyvalent Vaccine (Pneumococcal Vacc, Do Not Administer) 1 ea N/A PRN PRN PRN Reason: Notification Stop: 03/01/20 12:35 Polyethylene Glycol (Miralax Powder Packet) 17 gm PO Q6 [facility] Stop: 03/02/20 05:59 Last Admin: 02/01/20 06:05 Dose: 17 gm Documented by: Senna/Docusate Sodium (Senokot S) 2 tab PO HS [facility] Stop: 03/01/20 20:59 Last Admin: 01/31/20 21:35 Dose: 2 tab Documented by: Sodium Biphosphate/Sodium Phosphate (Fleet Enema) 132 ml DE ONE PRN PRN Reason: Constipation Stop: 03/01/20 12:35 Terazosin HCl (Hytrin) 2 mg PO HS [facility] Stop: 02/28/20 20:59 Last Admin: 01/31/20 21:35 Dose: 2 mg Documented by: Tramadol HCl (Ultram) 50 - 100 mg PO Q4H PRN PRN Reason: Moderate-Severe Pain Stop: 02/28/20 15:58 Last Admin: 02/01/20 10:03 Dose: 100 mg Documented by:
[2020-02-01] MEDS: MAGNESIUM OXIDE 400 MG TAB PO SCH (12:12)
[2020-02-01] MEDS: DOCUSATE SODIUM/SENNA 50/8.6MG TAB PO SCH (21:08)
[2020-02-01] MEDS: TERAZOSIN HCL 1 MG CAP PO SCH (21:09)
[2020-02-01] MEDS: ATORVASTATIN 40 MG TAB PO SCH (21:09)
[2020-02-01] MEDS: ACETAMINOPHEN 500 MG TAB PO PRN (21:11)
[2020-02-02] MEDS: POLYETHYLENE (MIRALAX) 17 GM PACK PO SCH ×4 (00:06→17:33)
[2020-02-02] MEDS: TRAMADOL HCL 50 MG TABLET PO PRN ×3 (01:01→14:31)
[2020-02-02] MEDS: OXYCODONE HCL IR 5 MG TAB (IMMEDIATE RELEASE) PO PRN ×4 (01:47→21:20)
[2020-02-02] MEDS: HYDROmorphone INJ 1 MG/ML SYRINGE IV PRN ×2 (02:51→09:50)
[2020-02-02] MEDS ORDERED: HYDROmorphone INJ 1 MG/ML SYRINGE IV STA (03:31)
[2020-02-02] MEDS: ACETAMINOPHEN 500 MG TAB PO PRN ×2 (05:23→16:12)
[2020-02-02] MEDS: LEVOTHYROXINE SODIUM 25 MCG TABLET PO SCH (05:24)
[2020-02-02] MEDS: PIPERACILLIN/TAZOBACTAM 3.375 GM in DEXTROSE 5% 100 ML IV SCH (05:27)
[2020-02-02 06:20] LABS: Est GFR (African American) 94.9; Est GFR (Non-African American) 81.9
[2020-02-02] MEDS: ASPIRIN 81 MG ECTAB PO SCH (07:55)
[2020-02-02] MEDS: GABAPENTIN 300 MG CAP PO SCH ×3 (07:56→22:08)
[2020-02-02] MEDS: carvediloL 12.5 MG TAB PO SCH (07:56)
[2020-02-02] MEDS: MAGNESIUM OXIDE 400 MG TAB PO SCH (07:56)
[2020-02-02] MEDS: AMLODIPINE BESYLATE 5 MG TAB PO SCH (07:56)
[2020-02-02] MEDS: FLUOXETINE HCL 20 MG CAP PO SCH (07:56)
[2020-02-02] MEDS: DOCUSATE SODIUM 100 MG CAP PO SCH ×2 (07:56→21:21)
[2020-02-02] MEDS: PANTOprazole 40 MG TAB PO SCH (07:56)
[2020-02-02] MEDS ORDERED: DEXAMETHASONE SOD PHOSPHATE 10 MG in SYRINGE 0 ML IV STA (10:38)
[2020-02-02] MEDS: INSULIN ASPART 100 UNITS/ML 3 ML PEN SC SCH ×5 (10:40→22:17)
--- NOTE | 2020-02-02 10:41 | Orthopedic Progress Note ---
Date of Service February 02, 2020 Assessment & Plan (1) Postoperative back pain: At this time I am going to initiate a course of IV Decadron and Neurontin. I strongly suspect that prolonged sitting last evening placed excessive pressure on the right-sided nerve and subsequent that is induced this pain. I will have her undergo bedrest today reassess her throughout the weekend we may consider further imaging. We will hold from physical therapy. Present on Admission?: Yes Admission and Anticipated Discharge Date Admission Date: January 29, 2020 Subjective Patient complaining of severe right buttock pain after prolonged time. In a chair last evening. This is not improved. She states she is unable to stand second of his pain. It does not radiate below the knee. Left extremity is asymptomatic. She does not she has no back pain. She denies any trauma or fall. Physical Exam Physical Exam: On exam she is in her bed on her side. She has no pain to percussion of the lumbar spine. She has right sciatic notch tenderness. She is neurologically intact. Results & Data ([facility]) Vital Signs (Past 12 Hours) Vital Signs Temp Pulse Resp BP Pulse Ox 02/02/20 07:08 36.5 C 118 H 18 155/98 H 94 02/02/20 03:30 115 H 149/88 H 02/02/20 00:00 202/86 H 02/01/20 23:10 36.7 C 79 16 181/81 H 98
--- NOTE | 2020-02-02 12:16 | Hospitalist Progress Note ---
Date of Service February 02, 2020 Assessment & Plan (1) Postoperative back pain: L1 compression fracture Lumbar seroma S/P L3-S1 decompression and fusion on 01/[address] --Lumbar MRI:Interval L2-S1 spinal decompression and fusion. Interval development of an 8.8 x 4.5 x 13.4 cm midline posterior subcutaneous fluid collection which is felt to be postsurgical. Persistent severe T12 compression fracture with 4 mm of retropulsion but no evidence of significant canal compromise. Interval development of a superior endplate L1 compression fracture with 30% loss in height. Interval development of subtle S2 marrow edema suggesting a insufficiency fracture. --Appreciate Ortho input and recommendation --Status post L1 kyphoplasty and I&D of lumbar seroma on 01/31/2020 Continue empiric antibiotics with vancomycin, Zosyn Complains to have more pain which is constant with some radiation in the legs without any fever and/or chills or headache Has been advised bedrest for now by orthopedic surgeon and Decadron has been started (2) Leukocytosis: Urinary tract infection--POA Urine culture E. coli and is pansensitive Continue Zosyn as above and change to oral antibiotic in a day or 2 White cell count has been normalized No signs of overt infection We will change antibiotic to oral Augmentin on discharge which will cover UTI and surgical wound at the back Antibiotics will be continued for a total of 7 days (3) Hypomagnesemia: Remains low at 1.4 Will supplement-magnesium remains low at 1.5 We will supplement more-we will recheck (4) Hypokalemia: Replace electrolytes as needed monitor -normalized (5) Diabetes mellitus, type II: Hgb A1c 6.4 12/2019 Hold oral agents Utilize NovoLog per protocol while hospitalized (6) HTN (hypertension): BP elevated likely situational secondary to pain Continue amlodipine, carvedilol, hydralazine Pain control Remains on the upper side at 163/82 this morning We will continue current medications (7) CAD (coronary artery disease): Stable Continue aspirin, statin, beta-pamela (8) Rheumatoid arthritis: Previously on Plaquenil and methotrexate Currently not taking meds No acute arthritis involving any joints (9) DVT prophylaxis: Teds/SCDs as per spine Ortho Disposition As per Primary Team Admission and Anticipated Discharge Date Admission Date: January 29, 2020 Subjective The patient was seen and examined in medical floor She is a status post a long kyphoplasty and I&D for lumbar seroma on 01/31/20 Complains pain at the back but denies any other symptoms 02/01/2020 Patient was seen and examined in medical floor She complains today of some pain at the back with radiation to legs Denies any chest pain or palpitation No fever and/or chills, no abdominal pain, nausea and/or vomiting 02/02/2020 Patient was seen and examined in medical floor She complains to have more pain at the back with radiation down the legs Denies any fever and/or chills, any nausea and or vomiting, any headache or any problem with vision Review of Systems Review of Systems: All systems reviewed and are unremarkable except as noted below Musculoskeletal: + back pain (Increasing back pain with radiation to legs) Status post L1 kyphoplasty and drainage of lumbar seroma Physical Exam Physical Exam: Lying in bed with moderate discomfort due to back pain Constitutional: well developed, well nourished, + acute distress (Minimal distress due to back pain), + ill appearing and + morbidly obese Eyes: PERRL, conjunctivae normal, anicteric sclerae ENMT: external ear and nose normal, oropharynx normal Neck: trachea midline, no thyromegaly Respiratory: normal respiratory effort; no respiratory distress Auscultation: lungs clear to auscultation bilaterally Cardiovascular: Rate/Rhythm: regular rate and regular rhythm Heart Sounds: no murmur Gastrointestinal (Abdomen): Inspection/Auscultation: abdomen normal to inspection and normal bowel sounds; abdomen not distended Percussion/Palpation: abdomen soft; abdomen nontender Musculoskeletal: Severe pain at the back and tenderness Neurologic: moves all extremities; no focal motor deficits Complains today of some radiculopathy pain in the legs Results & Data Results & Data ([facility]) Vital Signs (Past 12 Hours) Vital Signs Temp Pulse Resp BP Pulse Ox 02/02/20 07:08 36.5 C 118 H 18 155/98 H 94 02/02/20 03:30 115 H 149/88 H Laboratory Results [facility] 02/02/20 05:18 Creatinine 0.72 Medications Administered Current Inpatient Medications Acetaminophen (Tylenol) 1,000 mg PO Q8H PRN PRN Reason: MILD Pain Scale 1,2,3 & Pre PT Stop: 03/01/20 12:35 Last Admin: 02/02/20 05:23 Dose: 1,000 mg Documented by: Al Hydrox/Mg Hydrox/Simethicone (Maalox) 30 ml PO Q6H PRN PRN Reason: Dyspepsia Stop: 03/01/20 12:35 Amlodipine Besylate (Norvasc) 5 mg PO QAM [facility] Stop: 02/29/20 08:59 Last Admin: 02/02/20 07:56 Dose: 5 mg Documented by: Aspirin (Ecotrin Ectab) 81 mg PO QAM [facility] Stop: 02/29/20 08:59 Last Admin: 02/02/20 07:55 Dose: 81 mg Documented by: Atorvastatin Calcium (Lipitor) 40 mg PO HS [facility] Stop: 02/28/20 20:59 Last Admin: 02/01/20 21:09 Dose: 40 mg Documented by: Bisacodyl (Dulcolax) 10 mg NE DAILY PRN PRN Reason: Constipation Stop: 03/01/20 12:35 Carvedilol (Coreg) 12.5 mg PO BID [facility] Stop: 02/28/20 20:59 Last Admin: 02/02/20 07:56 Dose: 12.5 mg Documented by: Dextrose (Dextrose 50%) 25 - 50 ml IV UD PRN; Protocol PRN Reason: Hypoglycemia Protocol Stop: 02/28/20 17:07 Diphenhydramine HCl (Benadryl Capsule) 25 mg PO Q6H PRN PRN Reason: Allergic Rhinitis/Insomnia Stop: 03/01/20 12:35 Docusate Sodium (Colace) 100 mg PO BID [facility] Stop: 02/28/20 20:59 Last Admin: 02/02/20 07:56 Dose: 100 mg Documented by: Famotidine (Pepcid) 20 mg PO Q12H PRN PRN Reason: Dyspepsia Stop: 03/01/20 12:35 Fluoxetine HCl (Prozac) 40 mg PO QAM [facility] Stop: 02/29/20 08:59 Last Admin: 02/02/20 07:56 Dose: 40 mg Documented by: Furosemide (Lasix) 20 mg PO DAILY PRN PRN Reason: Weight Gain Stop: 02/28/20 15:58 Gabapentin (Neurontin) 300 mg PO TID [facility] Stop: 02/28/20 20:59 Last Admin: 02/02/20 07:56 Dose: 300 mg Documented by: Glucagon (Glucagen) 1 mg SQ UD PRN; Protocol PRN Reason: Hypoglycemia Protocol Stop: 02/28/20 17:07 Glucose (Dex4 Glucose) 4 - 8 tabs PO UD PRN; Protocol PRN Reason: Hypoglycemia Protocol Stop: 02/28/20 17:07 Glucose (Glucose 40%) 15 - 30 gm PO UD PRN; Protocol PRN Reason: Hypoglycemia Protocol Stop: 02/28/20 17:07 Hydralazine HCl (Apresoline) 25 mg PO TID [facility] Stop: 02/28/20 20:59 Last Admin: 02/02/20 07:55 Dose: 25 mg Documented by: Hydromorphone HCl (Dilaudid) 0.5 mg IV Q3H PRN PRN Reason: moderate pain (scale 4-6) Stop: 02/12/20 15:58 Last Admin: 02/02/20 06:26 Dose: 0.5 mg Documented by: Hydromorphone HCl (Dilaudid) 1 mg IV Q3H PRN PRN Reason: severe pain (scale 7-10) Stop: 02/12/20 15:58 Last Admin: 02/02/20 09:50 Dose: 1 mg Documented by: Hydroxyzine HCl (Vistaril) 25 mg PO Q8H PRN PRN Reason: Anxiety Stop: 03/01/20 12:35 Lorazepam (Ativan) 1 mg in 2 mls @ 2 mls/min IV Q6H PRN PRN Reason: Anxiety/Spasms Stop: 02/28/20 15:58 Piperacillin Sod/Tazobactam (Sod 3.375 gm/ Dextrose) 115 mls @ 28.75 mls/hr IV Q8H [facility]; Protocol Stop: 03/11/20 21:59 Last Infusion: 02/02/20 10:05 Dose: Infused Documented by: Lorazepam (Ativan) 0.5 mg in 1 mls @ 1 mls/min IV Q8H PRN PRN Reason: Sedation/Anxiety Stop: 03/01/20 12:35 Promethazine HCl 12.5 mg/ (Sodium Chloride) 50.5 mls @ 202 mls/hr IV Q6H PRN PRN Reason: Nausea And Vomiting Stop: 03/01/20 12:35 Dexamethasone Sodium Phosphate (8 mg/ Syringe) 2 mls @ 1 mls/min IV DAILY [facility] Stop: 03/04/20 08:59 Influenza Virus Vaccine Quadrival (Flu Vaccine, Do Not Administer) 1 ea N/A PRN PRN PRN Reason: Notification Stop: 03/01/20 12:35 Insulin Aspart (Novolog Flexpen) 0 units SC ACHS [facility] Stop: 03/01/20 16:29 Last Admin: 02/02/20 10:40 Dose: Not Given Documented by: Levothyroxine Sodium (Synthroid) 25 mcg PO DAILYBB [facility] Stop: 02/29/20 06:29 Last Admin: 02/02/20 05:24 Dose: 25 mcg Documented by: Lorazepam (Ativan) 1 mg PO Q6H PRN PRN Reason: Anxiety/spasms Stop: 02/28/20 15:58 Lorazepam (Ativan) 0.5 mg PO Q8H PRN PRN Reason: Sedation/Anxiety Stop: 03/01/20 12:35 Magnesium Hydroxide (Milk Of Magnesia) 30 ml PO DAILY PRN PRN Reason: Constipation Stop: 03/01/20 12:35 Last Admin: 02/02/20 09:44 Dose: 30 ml Documented by: Magnesium Oxide (Mag-Ox) 400 mg PO QAM [facility] Stop: 03/02/20 11:59 Last Admin: 02/02/20 07:56 Dose: 400 mg Documented by: Metoclopramide HCl (Reglan) 10 mg IV Q6H PRN PRN Reason: Nausea &/or Vomiting Stop: 03/01/20 12:35 Miscellaneous (Carbohydrates For Hypoglycemia) 15 - 30 gm PO UD PRN PRN Reason: Hypoglycemia Protocol Stop: 02/28/20 17:07 Miscellaneous Information (Consult) 1 ea N/A UD PRN PRN Reason: Consult Stop: 02/28/20 17:02 Naloxone HCl (Narcan) 0.1 mg IV Q5M PRN; Protocol PRN Reason: Oversedation/Resp Depression Stop: 03/01/20 12:35 Nitroglycerin (Nitrostat) 0.4 mg SL Q5M PRN PRN Reason: CHEST PAIN Stop: 02/28/20 16:11 Ondansetron HCl (Zofran) 4 mg IV Q6H PRN PRN Reason: Nausea And Vomiting Stop: 03/01/20 12:35 Ondansetron HCl (Zofran Odt) 4 mg PO Q6H PRN PRN Reason: Nausea Stop: 03/01/20 12:35 Oxycodone HCl (Roxicodone Immediate Rel) 5 - 10 mg PO Q4H PRN PRN Reason: Moderate-Severe Pain Stop: 02/12/20 15:58 Last Admin: 02/02/20 05:22 Dose: 10 mg Documented by: Pantoprazole Sodium (Protonix) [facility] [place] Stop: 02/29/20 08:59 Last Admin: 02/02/20 07:56 Dose: 40 mg Documented by: Pneumococcal Polyvalent Vaccine (Pneumococcal Vacc, Do Not Administer) 1 ea N/A PRN PRN PRN Reason: Notification Stop: 03/01/20 12:35 Polyethylene Glycol (Miralax Powder Packet) 17 gm PO Q6 [facility] Stop: 03/02/20 05:59 Last Admin: 02/02/20 11:39 Dose: 17 gm Documented by: Senna/Docusate Sodium (Senokot S) 2 tab PO [facility] Stop: 03/01/20 20:59 Last Admin: 02/01/20 21:08 Dose: 2 tab Documented by: Sodium Biphosphate/Sodium Phosphate (Fleet Enema) 132 ml NE ONE PRN PRN Reason: Constipation Stop: 03/01/20 12:35 Terazosin HCl (Hytrin) 2 mg PO [facility] Stop: 02/28/20 20:59 Last Admin: 02/01/20 21:09 Dose: 2 mg Documented by: Tramadol HCl (Ultram) 50 - 100 mg PO Q4H PRN PRN Reason: Moderate-Severe Pain Stop: 02/28/20 15:58 Last Admin: 02/02/20 04:26 Dose: 100 mg Documented by:
[2020-02-02] MEDS ORDERED: GABAPENTIN 300 MG CAP PO SCH (14:00)
[2020-02-02] MEDS: AMOXICILLIN/CLAVULANATE 875 MG TAB PO SCH (17:00)
[2020-02-02] MEDS: HydrALAZINE HCL 20 MG/ML VIAL IV PRN (17:23)
[2020-02-02] MEDS: carvediloL 25 MG TAB PO SCH (21:20)
[2020-02-02] MEDS: TERAZOSIN HCL 1 MG CAP PO SCH (21:21)
[2020-02-02] MEDS: ATORVASTATIN 40 MG TAB PO SCH (21:21)
[2020-02-02] MEDS: DOCUSATE SODIUM/SENNA 50/8.6MG TAB PO SCH (21:21)
[2020-02-02] MEDS ORDERED: Nursing to Pharmacy Communication SCH (21:30)
[2020-02-02] MEDS: INSULIN GLARGINE SOLOSTAR 100 UNITS/ML 3 ML PEN SC SCH (22:11)
[2020-02-03] MEDS: POLYETHYLENE (MIRALAX) 17 GM PACK PO SCH ×2 (00:33→05:50)
[2020-02-03] MEDS: OXYCODONE HCL IR 5 MG TAB (IMMEDIATE RELEASE) PO PRN ×3 (00:51→19:50)
[2020-02-03] MEDS: LEVOTHYROXINE SODIUM 25 MCG TABLET PO SCH (05:50)
[2020-02-03 06:23] LABS: Hematocrit (blood only) 27.2 % (37-47); Hemoglobin 8.8 g/dL (12.0-16.0); Immature Granulocytes # (auto) 0.05 K/uL (0.00-0.02); Immature Granulocytes % (auto) 1.1 %; Lymphocytes # (auto) 0.81 K/uL (1.2-3.4); Lymphocytes % (auto) 17.7 %; Mean Corpuscular Hemoglobin 31.7 pg (25-34); Mean Corpuscular Hgb Conc 32.4 g/dL (32-36); Mean Corpuscular Volume 97.8 fL (80-100); Mean Platelet Volume 8.3 fL (7.4-10.4); Monocytes % (auto) 6.6 %; Neutrophils # (auto) 3.41 K/uL (1.4-6.5); Neutrophils % (auto) 74.6 %; Platelet Count 136 K/uL (130-400); RDW Coefficient of Variation 14.4 % (11.5-14.5); RDW Standard Deviation 50.8 fL (36.4-46.3); Red Blood Count 2.78 M/uL (4.2-5.4); White Blood Count 4.57 K/uL (4.8-10.8)
[2020-02-03 06:49] LABS: BUN Creatinine Ratio 16.5 (10-20); Calcium 8.7 mg/dl (8.5-10.1); Creatinine Clr Calc Pharmacy 106.8 ml/min; Est GFR (African American) 103.3; Est GFR (Non-African American) 89.2; Magnesium 1.7 mg/dl (1.8-2.4)
[2020-02-03 06:50] LABS: Phosphorus 2.8 mg/dl (2.5-4.9)
--- NOTE | 2020-02-03 06:53 | Hospitalist Progress Note ---
Date of Service February 03, 2020 Assessment & Plan Admission and Anticipated Discharge Date Admission Date: January 29, 2020 Subjective Patient was started on decadron. Sugars are going up. Adjusted ISS and started on Lantus 7units daily. Will monitor. Results & Data Results & Data ([facility]) Vital Signs (Past 12 Hours) Vital Signs Temp Pulse Pulse Resp BP Pulse Ox 02/02/20 23:24 36.7 C 76 16 167/55 H 97 02/02/20 21:19 92 H 171/74 H
[2020-02-03] MEDS: INSULIN ASPART 100 UNITS/ML 3 ML PEN SC SCH ×4 (09:23→21:47)
[2020-02-03] MEDS: DEXAMETHASONE SOD PHOSPHATE 8 MG in SYRINGE 0 ML IV SCH (09:24)
[2020-02-03] MEDS: MAGNESIUM OXIDE 400 MG TAB PO SCH (09:25)
[2020-02-03] MEDS: FLUOXETINE HCL 20 MG CAP PO SCH (09:25)
[2020-02-03] MEDS: ASPIRIN 81 MG ECTAB PO SCH (09:25)
[2020-02-03] MEDS: DOCUSATE SODIUM 100 MG CAP PO SCH ×2 (09:25→21:43)
[2020-02-03] MEDS: PANTOprazole 40 MG TAB PO SCH (09:25)
[2020-02-03] MEDS: AMLODIPINE BESYLATE 5 MG TAB PO SCH (09:25)
[2020-02-03] MEDS: AMOXICILLIN/CLAVULANATE 875 MG TAB PO SCH ×2 (09:25→16:13)
[2020-02-03] MEDS: GABAPENTIN 300 MG CAP PO SCH ×3 (09:26→21:43)
[2020-02-03] MEDS: carvediloL 25 MG TAB PO SCH ×2 (09:26→21:43)
--- NOTE | 2020-02-03 09:54 | Orthopedic Progress Note ---
Date of Service February 03, 2020 Assessment & Plan (1) Compression fracture of L1 lumbar vertebra: Today we will begin bed to chair transfers she may ambulate in the room. She is not to sit for longer than 20 to 30 minutes. If she tolerates this activity the next 2 days will initiate formalized physical therapy Wednesday. Present on Admission?: Yes Admission and Anticipated Discharge Date Admission Date: January 29, 2020 Subjective Patient's leg pain is markedly improved today. Physical Exam Physical Exam: Patient appears much more comfortable. She is excellent strength testing. Results & Data ([facility]) Vital Signs (Past 12 Hours) Vital Signs Temp Pulse Resp BP Pulse Ox 02/03/20 07:45 36.7 C 75 16 174/73 H 95 02/02/20 23:24 36.7 C 76 16 167/55 H 97
[2020-02-03] MEDS: TRAMADOL HCL 50 MG TABLET PO PRN ×2 (10:45→16:13)
[2020-02-03] MEDS: HYDROmorphone INJ 1 MG/ML SYRINGE IV PRN (11:28)
--- NOTE | 2020-02-03 15:24 | Hospitalist Progress Note ---
Date of Service February 03, 2020 Assessment & Plan (1) Postoperative back pain: L1 compression fracture Lumbar seroma S/P L3-S1 decompression and fusion on 01/[address] --Lumbar MRI:Interval L2-S1 spinal decompression and fusion. Interval development of an 8.8 x 4.5 x 13.4 cm midline posterior subcutaneous fluid collection which is felt to be postsurgical. Persistent severe T12 compression fracture with 4 mm of retropulsion but no evidence of significant canal compromise. Interval development of a superior endplate L1 compression fracture with 30% loss in height. Interval development of subtle S2 marrow edema suggesting a insufficiency fracture. --Appreciate Ortho input and recommendation --Status post L1 kyphoplasty and I&D of lumbar seroma on 01/31/2020 Continue empiric antibiotics with vancomycin, Zosyn Complains to have more pain which is constant with some radiation in the legs without any fever and/or chills or headache Has been advised bedrest for now by orthopedic surgeon and Decadron has been started Still has severe pain and is not controlled with anti-inflammatory Advised to have more Dilaudid intravenously as needed with Toradol to control pain (2) Leukocytosis: Urinary tract infection--POA Urine culture E. coli and is pansensitive Continue Zosyn as above and change to oral antibiotic in a day or 2 White cell count has been normalized Surgical site infection has been ruled out We will change antibiotic to oral Augmentin on discharge which will cover UTI and surgical wound at the back Antibiotics will be continued for a total of 7 days No increase in white count (3) Hypomagnesemia: Remains low at 1.4 Will supplement-magnesium remains low at 1.5 We will supplement more-we will recheck (4) Hypokalemia: Replace electrolytes as needed monitor -normalized (5) Diabetes mellitus, type II: Hgb A1c 6.4 12/2019 Hold oral agents Utilize NovoLog per protocol while hospitalized (6) HTN (hypertension): BP elevated likely situational secondary to pain Continue amlodipine, carvedilol, hydralazine Pain control Remains on the upper side at 163/82 this morning Blood pressure remains on the upper side with systolic at 162/51 as of this morning (7) CAD (coronary artery disease): Stable Continue aspirin, statin, beta-pamela (8) Rheumatoid arthritis: Previously on Plaquenil and methotrexate Currently not taking meds No acute arthritis involving any joints (9) DVT prophylaxis: Teds/SCDs as per spine Ortho Disposition As per Primary Team Admission and Anticipated Discharge Date Admission Date: January 29, 2020 Subjective The patient was seen and examined in medical floor She is a status post a long kyphoplasty and I&D for lumbar seroma on 01/31/20 Complains pain at the back but denies any other symptoms 02/01/2020 Patient was seen and examined in medical floor She complains today of some pain at the back with radiation to legs Denies any chest pain or palpitation No fever and/or chills, no abdominal pain, nausea and/or vomiting 02/02/2020 Patient was seen and examined in medical floor She complains to have more pain at the back with radiation down the legs Denies any fever and/or chills, any nausea and or vomiting, any headache or any problem with vision 02/03/2020 Patient was seen and examined in medical floor She complains to extreme pain in the back with radiation to the right lower extremity and has been crying since this morning Received Toradol and was advised to give Dilaudid after I have examined the patient Denies any chest pain or palpitation, no nausea and or vomiting No problem with urination Review of Systems Review of Systems: All systems reviewed and are unremarkable except as noted below Musculoskeletal: + back pain (Increasing back pain with radiation to legs) Status post L1 kyphoplasty and drainage of lumbar seroma-complains of severe back pain with radiation to right lower extremity Physical Exam Physical Exam: Lying in bed with severe discomfort secondary to radiculopathy pain in right leg Constitutional: well developed, well nourished, + acute distress (Minimal distress due to back pain), + ill appearing and + morbidly obese Eyes: PERRL, conjunctivae normal, anicteric sclerae ENMT: external ear and nose normal, oropharynx normal Neck: trachea midline, no thyromegaly Respiratory: normal respiratory effort; no respiratory distress Auscultation: lungs clear to auscultation bilaterally Cardiovascular: Rate/Rhythm: regular rate and regular rhythm Heart Sounds: no murmur Gastrointestinal (Abdomen): Inspection/Auscultation: abdomen normal to inspection and normal bowel sounds; abdomen not distended Percussion/Palpation: abdomen soft; abdomen nontender Musculoskeletal: As above Neurologic: moves all extremities; no focal motor deficits Results & Data Results & Data ([facility]) Vital Signs (Past 12 Hours) Vital Signs Temp Pulse Resp BP Pulse Ox 02/03/20 15:00 36.5 C 76 16 162/51 H 95 02/03/20 13:59 72 178/81 H 02/03/20 07:45 36.7 C 75 16 174/73 H 95 Laboratory Results Short CBC 02/03/20 Range/Units 05:18 WBC 4.57 L (4.8-10.8) K/uL Hgb 8.8 L (12.0-16.0) g/dL Hct 27.2 L (37-47) % Plt Count 136 (130-400) K/uL BMP 02/03/20 05:18 Sodium 141 Potassium 4.0 Chloride 106 Carbon Dioxide 27 BUN 10 Creatinine 0.60 Glucose 175 H Calcium 8.7 Medications Administered Current Inpatient Medications Acetaminophen (Tylenol) 1,000 mg PO Q8H PRN PRN Reason: MILD Pain Scale 1,2,3 & Pre PT Stop: 03/01/20 12:35 Last Admin: 02/02/20 16:12 Dose: 1,000 mg Documented by: Al Hydrox/Mg Hydrox/Simethicone (Maalox) 30 ml PO Q6H PRN PRN Reason: Dyspepsia Stop: 03/01/20 12:35 Amlodipine Besylate (Norvasc) 5 mg PO [facility] Stop: 02/29/20 08:59 Last Admin: 02/03/20 09:25 Dose: 5 mg Documented by: Amoxicillin/Clavulanate Potassium (Augmentin 875mg) [facility]; Protocol Stop: 02/06/20 16:59 Last Admin: 02/03/20 09:25 Dose: 1 tab Documented by: Aspirin (Ecotrin Ectab) 81 mg PO [facility] Stop: 02/29/20 08:59 Last Admin: 02/03/20 09:25 Dose: 81 mg Documented by: Atorvastatin Calcium (Lipitor) 40 mg PO [facility] Stop: 02/28/20 20:59 Last Admin: 02/02/20 21:21 Dose: 40 mg Documented by: Bisacodyl (Dulcolax) 10 mg CA DAILY PRN PRN Reason: Constipation Stop: 03/01/20 12:35 Carvedilol (Coreg) 25 mg PO BID [facility] Stop: 03/03/20 20:59 Last Admin: 02/03/20 09:26 Dose: 25 mg Documented by: Dextrose (Dextrose 50%) 25 - 50 ml IV UD PRN; Protocol PRN Reason: Hypoglycemia Protocol Stop: 02/28/20 17:07 Diphenhydramine HCl (Benadryl Capsule) 25 mg PO Q6H PRN PRN Reason: Allergic Rhinitis/Insomnia Stop: 03/01/20 12:35 Docusate Sodium (Colace) 100 mg PO BID [facility] Stop: 02/28/20 20:59 Last Admin: 02/03/20 09:25 Dose: 100 mg Documented by: Famotidine (Pepcid) 20 mg PO Q12H PRN PRN Reason: Dyspepsia Stop: 03/01/20 12:35 Fluoxetine HCl (Prozac) 40 mg PO QAM [facility] Stop: 02/29/20 08:59 Last Admin: 02/03/20 09:25 Dose: 40 mg Documented by: Furosemide (Lasix) 20 mg PO DAILY PRN PRN Reason: Weight Gain Stop: 02/28/20 15:58 Gabapentin (Neurontin) 300 mg PO TID [facility] Stop: 02/28/20 20:59 Last Admin: 02/03/20 14:00 Dose: 300 mg Documented by: Glucagon (Glucagen) 1 mg SQ UD PRN; Protocol PRN Reason: Hypoglycemia Protocol Stop: 02/28/20 17:07 Glucose (Dex4 Glucose) 4 - 8 tabs PO UD PRN; Protocol PRN Reason: Hypoglycemia Protocol Stop: 02/28/20 17:07 Glucose (Glucose 40%) 15 - 30 gm PO UD PRN; Protocol PRN Reason: Hypoglycemia Protocol Stop: 02/28/20 17:07 Hydralazine HCl (Apresoline) 25 mg PO TID [facility] Stop: 02/28/20 20:59 Last Admin: 02/03/20 14:00 Dose: 25 mg Documented by: Hydralazine HCl (Hydralazine Hcl) 10 mg IV Q6H PRN PRN Reason: SBP > 170 Stop: 03/03/20 17:14 Last Admin: 02/02/20 17:23 Dose: 10 mg Documented by: Hydromorphone HCl (Dilaudid) 0.5 mg IV Q3H PRN PRN Reason: moderate pain (scale 4-6) Stop: 02/12/20 15:58 Last Admin: 02/02/20 06:26 Dose: 0.5 mg Documented by: Hydromorphone HCl (Dilaudid) 1 mg IV Q3H PRN PRN Reason: severe pain (scale 7-10) Stop: 02/12/20 15:58 Last Admin: 02/03/20 11:28 Dose: 1 mg Documented by: Hydroxyzine HCl (Vistaril) 25 mg PO Q8H PRN PRN Reason: Anxiety Stop: 03/01/20 12:35 Lorazepam (Ativan) 1 mg in 2 mls @ 2 mls/min IV Q6H PRN PRN Reason: Anxiety/Spasms Stop: 02/28/20 15:58 Lorazepam (Ativan) 0.5 mg in 1 mls @ 1 mls/min IV Q8H PRN PRN Reason: Sedation/Anxiety Stop: 03/01/20 12:35 Promethazine HCl 12.5 mg/ (Sodium Chloride) 50.5 mls @ 202 mls/hr IV Q6H PRN PRN Reason: Nausea And Vomiting Stop: 03/01/20 12:35 Dexamethasone Sodium Phosphate (8 mg/ Syringe) 2 mls @ 1 mls/min IV DAILY [facility] Stop: 03/04/20 08:59 Last Admin: 02/03/20 09:24 Dose: 1 mls/min Documented by: Influenza Virus Vaccine Quadrival (Flu Vaccine, Do Not Administer) 1 ea N/A PRN PRN PRN Reason: Notification Stop: 03/01/20 12:35 Insulin Aspart (Novolog Flexpen) 0 units SC ACHS [facility] Stop: 03/01/20 16:29 Last Admin: 02/03/20 13:58 Dose: 3 units Documented by: Insulin Glargine (Lantus Solostar Pen) 7 units SC HS [facility] Stop: 03/03/20 21:09 Last Admin: 02/02/20 22:11 Dose: 7 units Documented by: Levothyroxine Sodium (Synthroid) 25 mcg PO DAILYBB [facility] Stop: 02/29/20 06:29 Last Admin: 02/03/20 05:50 Dose: 25 mcg Documented by: Lorazepam (Ativan) 1 mg PO Q6H PRN PRN Reason: Anxiety/spasms Stop: 02/28/20 15:58 Lorazepam (Ativan) 0.5 mg PO Q8H PRN PRN Reason: Sedation/Anxiety Stop: 03/01/20 12:35 Magnesium Hydroxide (Milk Of Magnesia) 30 ml PO DAILY PRN PRN Reason: Constipation Stop: 03/01/20 12:35 Last Admin: 02/02/20 09:44 Dose: 30 ml Documented by: Magnesium Oxide (Mag-Ox) [facility] Stop: 03/02/20 11:59 Last Admin: 02/03/20 09:25 Dose: 400 mg Documented by: Metoclopramide HCl (Reglan) 10 mg IV Q6H PRN PRN Reason: Nausea &/or Vomiting Stop: 03/01/20 12:35 Miscellaneous (Carbohydrates For Hypoglycemia) 15 - 30 gm PO UD PRN PRN Reason: Hypoglycemia Protocol Stop: 02/28/20 17:07 Naloxone HCl (Narcan) 0.1 mg IV Q5M PRN; Protocol PRN Reason: Oversedation/Resp Depression Stop: 03/01/20 12:35 Nitroglycerin (Nitrostat) 0.4 mg SL Q5M PRN PRN Reason: CHEST PAIN Stop: 02/28/20 16:11 Ondansetron HCl (Zofran) 4 mg IV Q6H PRN PRN Reason: Nausea And Vomiting Stop: 03/01/20 12:35 Ondansetron HCl (Zofran Odt) 4 mg PO Q6H PRN PRN Reason: Nausea Stop: 03/01/20 12:35 Oxycodone HCl (Roxicodone Immediate Rel) 5 - 10 mg PO Q4H PRN PRN Reason: Moderate-Severe Pain Stop: 02/12/20 15:58 Last Admin: 02/03/20 14:02 Dose: 10 mg Documented by: Pantoprazole Sodium (Protonix) 40 [facility] Stop: 02/29/20 08:59 Last Admin: 02/03/20 09:25 Dose: 40 mg Documented by: Pneumococcal Polyvalent Vaccine (Pneumococcal Vacc, Do Not Administer) 1 ea N/A PRN PRN PRN Reason: Notification Stop: 03/01/20 12:35 Senna/Docusate Sodium (Senokot S) 2 tab PO HS [facility] Stop: 03/01/20 20:59 Last Admin: 02/02/20 21:21 Dose: 2 tab Documented by: Sodium Biphosphate/Sodium Phosphate (Fleet Enema) 132 ml CA ONE PRN PRN Reason: Constipation Stop: 03/01/20 12:35 Terazosin HCl (Hytrin) 2 mg PO HS [facility] Stop: 02/28/20 20:59 Last Admin: 02/02/20 21:21 Dose: 2 mg Documented by: Tramadol HCl (Ultram) 50 - 100 mg PO Q4H PRN PRN Reason: Moderate-Severe Pain Stop: 02/28/20 15:58 Last Admin: 02/03/20 10:45 Dose: 100 mg Documented by:
[2020-02-03] MEDS: ACETAMINOPHEN 500 MG TAB PO PRN (19:51)
[2020-02-03] MEDS: TERAZOSIN HCL 1 MG CAP PO SCH (21:42)
[2020-02-03] MEDS: DOCUSATE SODIUM/SENNA 50/8.6MG TAB PO SCH (21:43)
[2020-02-03] MEDS: ATORVASTATIN 40 MG TAB PO SCH (21:43)
[2020-02-03] MEDS: INSULIN GLARGINE SOLOSTAR 100 UNITS/ML 3 ML PEN SC SCH (21:46)
[2020-02-04] MEDS: OXYCODONE HCL IR 5 MG TAB (IMMEDIATE RELEASE) PO PRN ×3 (05:09→20:00)
[2020-02-04] MEDS: LEVOTHYROXINE SODIUM 25 MCG TABLET PO SCH (05:11)
[2020-02-04] MEDS: PANTOprazole 40 MG TAB PO SCH (08:26)
[2020-02-04] MEDS: ASPIRIN 81 MG ECTAB PO SCH (08:26)
[2020-02-04] MEDS: FLUOXETINE HCL 20 MG CAP PO SCH (08:26)
[2020-02-04] MEDS: carvediloL 25 MG TAB PO SCH ×2 (08:26→20:06)
[2020-02-04] MEDS: AMLODIPINE BESYLATE 5 MG TAB PO SCH (08:26)
[2020-02-04] MEDS: GABAPENTIN 300 MG CAP PO SCH ×3 (08:26→20:06)
[2020-02-04] MEDS: DOCUSATE SODIUM 100 MG CAP PO SCH ×2 (08:27→20:07)
[2020-02-04] MEDS: DEXAMETHASONE SOD PHOSPHATE 8 MG in SYRINGE 0 ML IV SCH (08:27)
[2020-02-04] MEDS: AMOXICILLIN/CLAVULANATE 875 MG TAB PO SCH ×2 (08:27→18:16)
[2020-02-04] MEDS: MAGNESIUM OXIDE 400 MG TAB PO SCH (08:27)
[2020-02-04] MEDS: TRAMADOL HCL 50 MG TABLET PO PRN (08:27)
[2020-02-04] MEDS: INSULIN ASPART 100 UNITS/ML 3 ML PEN SC SCH ×4 (08:32→20:42)
--- NOTE | 2020-02-04 11:33 | Orthopedic Progress Note ---
Date of Service February 04, 2020 Assessment & Plan (1) Compression fracture of L1 lumbar vertebra: I would like to obtain a CAT scan lumbar spine to rule out occult fracture or sacral insufficiency fracture. Also rule out any neural compression. We will maintain bedrest today. Present on Admission?: Yes Admission and Anticipated Discharge Date Admission Date: January 29, 2020 Subjective Patient complaining of back pain with bilateral leg pain. It is improved from yesterday. She describes numbness in her feet. Bowels are working well. Physical Exam Physical Exam: On exam she is exquisitely tender to palpation of the bilateral IT bands and greater trochanteric regions. She has no significant back pain to palpation. She exhibits excellent strength testing the lower extremities. Results & Data ([facility]) Vital Signs (Past 12 Hours) Vital Signs Temp Pulse Resp BP Pulse Ox 02/04/20 07:30 36.4 C L 66 20 130/89 97 02/04/20 00:36 74 164/98 H
--- NOTE | 2020-02-04 12:23 | CT Scan Report ---
CT lumbar spine wo con CT DOSE: 950.28 mGy.cm HISTORY: Pain back pain TECHNIQUE: Multiaxial CT images of the lumbar spine were performed and reformatted in the sagittal an d coronal plane without the use of contrast. A dose lowering technique was utilized adhering to the principles of ALARA. COMPARISON: 11/04/2018 FINDINGS: Interval extensive laminectomy and fusion from L2 through S1. Interval vertebral plasties a t T12 and L1. No significant compromise of the spinal canal. There are multiple antibacterial pellets within the soft tissues There is soft tissue prominence posterior to the spine difficult to evaluate given the patient's body habitus. Several small air bubbles are noted adjacent to the implantable pellets which are of uncertain signif icance given the lack of information in reference to time frame of the reimplantation. The metallic hardware appears to be intact. Subluxation of L4 and L5 as well as L3 on L4 noted on a degenerative bases appears to be similar of t he bony mineralization is progressing to osteoporosis. IMPRESSION: 1. Extensive operative changes consistent with laminectomy and fusion from L2 through S1. 2. Prominent posterior soft tissue with the implantable pellets and associated air bubbles uncertain significance given lack of information regarding date of implantation. 3. Interval vertebral plasties with progressive compression deformities of T12 and L1. ACT 112: Negative or not required by law. The above report was generated using voice recognition software. It may contain grammatical, syntax or spelling errors. Electronically signed by: Ray Borges M.D. 02/04/2020 12:21 PM
--- NOTE | 2020-02-04 14:47 | Hospitalist Progress Note ---
Date of Service February 04, 2020 Assessment & Plan (1) Postoperative back pain: L1 compression fracture Lumbar seroma S/P L3-S1 decompression and fusion on 01/[address] --Lumbar MRI:Interval L2-S1 spinal decompression and fusion. Interval development of an 8.8 x 4.5 x 13.4 cm midline posterior subcutaneous fluid collection which is felt to be postsurgical. Persistent severe T12 compression fracture with 4 mm of retropulsion but no evidence of significant canal compromise. Interval development of a superior endplate L1 compression fracture with 30% loss in height. Interval development of subtle S2 marrow edema suggesting a insufficiency fracture. --Appreciate Ortho input and recommendation --Status post L1 kyphoplasty and I&D of lumbar seroma on 01/31/2020 Continue empiric antibiotics with vancomycin, Zosyn Complains to have more pain which is constant with some radiation in the legs without any fever and/or chills or headache Has been advised bedrest for now by orthopedic surgeon and Decadron has been started Still has severe pain and is not controlled with anti-inflammatory Pain is reasonably controlled today but will have lumbar spine CT to evaluate it further as per Ortho We will continue current medications including Decadron, Toradol and as needed IV Dilaudid (2) Leukocytosis: Urinary tract infection--POA Urine culture E. coli and is pansensitive Continue Zosyn as above and change to oral antibiotic in a day or 2 White cell count has been normalized Surgical site infection has been ruled out We will change antibiotic to oral Augmentin on discharge which will cover UTI and surgical wound at the back Antibiotics will be continued for a total of 7 days No increase in white count (3) Hypomagnesemia: Remains low at 1.4 Will supplement-magnesium remains low at 1.5 We will supplement more-we will recheck Magnesium level is normalized (4) Hypokalemia: Replace electrolytes as needed monitor -normalized (5) Diabetes mellitus, type II: Hgb A1c 6.4 12/2019 Hold oral agents Utilize NovoLog per protocol while hospitalized (6) HTN (hypertension): BP elevated likely situational secondary to pain Continue amlodipine, carvedilol, hydralazine Pain control Remains on the upper side at 163/82 this morning Blood pressure remains on the upper side with systolic at 162/51 as of this morning Remains stable as of 02/04/2020 (7) CAD (coronary artery disease): Stable Continue aspirin, statin, beta-pamela (8) Rheumatoid arthritis: Previously on Plaquenil and methotrexate Currently not taking meds No acute arthritis involving any joints (9) DVT prophylaxis: Teds/SCDs as per spine Ortho Disposition As per Primary Team Admission and Anticipated Discharge Date Admission Date: January 29, 2020 Subjective The patient was seen and examined in medical floor She is a status post a long kyphoplasty and I&D for lumbar seroma on 01/31/20 Complains pain at the back but denies any other symptoms 02/01/2020 Patient was seen and examined in medical floor She complains today of some pain at the back with radiation to legs Denies any chest pain or palpitation No fever and/or chills, no abdominal pain, nausea and/or vomiting 02/02/2020 Patient was seen and examined in medical floor She complains to have more pain at the back with radiation down the legs Denies any fever and/or chills, any nausea and or vomiting, any headache or any problem with vision 02/03/2020 Patient was seen and examined in medical floor She complains to extreme pain in the back with radiation to the right lower extremity and has been crying since this morning Received Toradol and was advised to give Dilaudid after I have examined the patient Denies any chest pain or palpitation, no nausea and or vomiting No problem with urination 02/04/2020 The patient was seen and examined in medical floor She has been feeling a lot better today but he still has considerable low back pain with radiation to both the legs She does not have any weakness involving the legs on examination Denies any bladder and/or bowel prep Review of Systems Review of Systems: All systems reviewed and are unremarkable except as noted below Musculoskeletal: + back pain (Increasing back pain with radiation to legs) Status post L1 kyphoplasty and drainage of lumbar seroma-complains of severe back pain with radiation to right lower extremity Physical Exam Physical Exam: Lying in bed with mild to moderate pain involving the lower back with radiation to legs Constitutional: well developed, well nourished, + acute distress (Minimal distress due to back pain) and + morbidly obese; not ill appearing Eyes: PERRL, conjunctivae normal, anicteric sclerae ENMT: external ear and nose normal, oropharynx normal Neck: trachea midline, no thyromegaly Respiratory: normal respiratory effort; no respiratory distress Auscultation: lungs clear to auscultation bilaterally Cardiovascular: Rate/Rhythm: regular rate and regular rhythm Heart Sounds: no murmur Gastrointestinal (Abdomen): Inspection/Auscultation: abdomen normal to inspection and normal bowel sounds; abdomen not distended Percussion/Palpation: abdomen soft; abdomen nontender Musculoskeletal: Back pain with radiation to legs Neurologic: moves all extremities; no focal motor deficits Sensory impairment involving the lower legs but motor power seems to be intact in the ankle and knee joint Results & Data Results & Data ([facility]) Vital Signs (Past 12 Hours) Vital Signs Temp Pulse Resp BP Pulse Ox 02/04/20 13:00 63 148/75 H 02/04/20 07:30 36.4 C L 66 20 130/89 97 Medications Administered Current Inpatient Medications Acetaminophen (Tylenol) 1,000 mg PO Q8H PRN PRN Reason: MILD Pain Scale 1,2,3 & Pre PT Stop: 03/01/20 12:35 Last Admin: 02/03/20 19:51 Dose: 1,000 mg Documented by: Al Hydrox/Mg Hydrox/Simethicone (Maalox) 30 ml PO Q6H PRN PRN Reason: Dyspepsia Stop: 03/01/20 12:35 Amlodipine Besylate (Norvasc) 5 mg PO [facility] Stop: 02/29/20 08:59 Last Admin: 02/04/20 08:26 Dose: 5 mg Documented by: Amoxicillin/Clavulanate Potassium (Augmentin 875mg) 1 tab PO BIDM [facility]; Protocol Stop: 02/06/20 16:59 Last Admin: 02/04/20 08:27 Dose: 1 tab Documented by: Aspirin (Ecotrin Ectab) [facility] Stop: 02/29/20 08:59 Last Admin: 02/04/20 08:26 Dose: 81 mg Documented by: Atorvastatin Calcium (Lipitor) 40 mg PO [facility] Stop: 02/28/20 20:59 Last Admin: 02/03/20 21:43 Dose: 40 mg Documented by: Bisacodyl (Dulcolax) 10 mg FL DAILY PRN PRN Reason: Constipation Stop: 03/01/20 12:35 Carvedilol (Coreg) 25 mg PO BID [facility] Stop: 03/03/20 20:59 Last Admin: 02/04/20 08:26 Dose: 25 mg Documented by: Dextrose (Dextrose 50%) 25 - 50 ml IV UD PRN; Protocol PRN Reason: Hypoglycemia Protocol Stop: 02/28/20 17:07 Diphenhydramine HCl (Benadryl Capsule) 25 mg PO Q6H PRN PRN Reason: Allergic Rhinitis/Insomnia Stop: 03/01/20 12:35 Docusate Sodium (Colace) 100 mg PO BID [facility] Stop: 02/28/20 20:59 Last Admin: 02/04/20 08:27 Dose: Not Given Documented by: Famotidine (Pepcid) 20 mg PO Q12H PRN PRN Reason: Dyspepsia Stop: 03/01/20 12:35 Fluoxetine HCl (Prozac) 40 mg PO QAM [facility] Stop: 02/29/20 08:59 Last Admin: 02/04/20 08:26 Dose: 40 mg Documented by: Furosemide (Lasix) 20 mg PO DAILY PRN PRN Reason: Weight Gain Stop: 02/28/20 15:58 Gabapentin (Neurontin) 300 mg PO TID [facility] Stop: 02/28/20 20:59 Last Admin: 02/04/20 13:05 Dose: 300 mg Documented by: Glucagon (Glucagen) 1 mg SQ UD PRN; Protocol PRN Reason: Hypoglycemia Protocol Stop: 02/28/20 17:07 Glucose (Dex4 Glucose) 4 - 8 tabs PO UD PRN; Protocol PRN Reason: Hypoglycemia Protocol Stop: 02/28/20 17:07 Glucose (Glucose 40%) 15 - 30 gm PO UD PRN; Protocol PRN Reason: Hypoglycemia Protocol Stop: 02/28/20 17:07 Hydralazine HCl (Apresoline) 25 mg PO TID [facility] Stop: 02/28/20 20:59 Last Admin: 02/04/20 13:05 Dose: 25 mg Documented by: Hydralazine HCl (Hydralazine Hcl) 10 mg IV Q6H PRN PRN Reason: SBP > 170 Stop: 03/03/20 17:14 Last Admin: 02/02/20 17:23 Dose: 10 mg Documented by: Hydromorphone HCl (Dilaudid) 0.5 mg IV Q3H PRN PRN Reason: moderate pain (scale 4-6) Stop: 02/12/20 15:58 Last Admin: 02/02/20 06:26 Dose: 0.5 mg Documented by: Hydromorphone HCl (Dilaudid) 1 mg IV Q3H PRN PRN Reason: severe pain (scale 7-10) Stop: 02/12/20 15:58 Last Admin: 02/03/20 11:28 Dose: 1 mg Documented by: Hydroxyzine HCl (Vistaril) 25 mg PO Q8H PRN PRN Reason: Anxiety Stop: 03/01/20 12:35 Lorazepam (Ativan) 1 mg in 2 mls @ 2 mls/min IV Q6H PRN PRN Reason: Anxiety/Spasms Stop: 02/28/20 15:58 Lorazepam (Ativan) 0.5 mg in 1 mls @ 1 mls/min IV Q8H PRN PRN Reason: Sedation/Anxiety Stop: 03/01/20 12:35 Promethazine HCl 12.5 mg/ (Sodium Chloride) 50.5 mls @ 202 mls/hr IV Q6H PRN PRN Reason: Nausea And Vomiting Stop: 03/01/20 12:35 Dexamethasone Sodium Phosphate (8 mg/ Syringe) 2 mls @ 1 mls/min IV DAILY [facility] Stop: 03/04/20 08:59 Last Admin: 02/04/20 08:27 Dose: 1 mls/min Documented by: Influenza Virus Vaccine Quadrival (Flu Vaccine, Do Not Administer) 1 ea N/A PRN PRN PRN Reason: Notification Stop: 03/01/20 12:35 Insulin Aspart (Novolog Flexpen) 0 units SC ACHS [facility] Stop: 03/01/20 16:29 Last Admin: 02/04/20 13:01 Dose: 8 units Documented by: Insulin Glargine (Lantus Solostar Pen) 7 units SC HS [facility] Stop: 03/03/20 21:09 Last Admin: 02/03/20 21:46 Dose: 7 units Documented by: Levothyroxine Sodium (Synthroid) 25 mcg PO DAILYBB [facility] Stop: 02/29/20 06:29 Last Admin: 02/04/20 05:11 Dose: 25 mcg Documented by: Lorazepam (Ativan) 1 mg PO Q6H PRN PRN Reason: Anxiety/spasms Stop: 02/28/20 15:58 Lorazepam (Ativan) 0.5 mg PO Q8H PRN PRN Reason: Sedation/Anxiety Stop: 03/01/20 12:35 Magnesium Hydroxide (Milk Of Magnesia) 30 ml PO DAILY PRN PRN Reason: Constipation Stop: 03/01/20 12:35 Last Admin: 02/02/20 09:44 Dose: 30 ml Documented by: Magnesium Oxide (Mag-Ox) 400 mg PO QAM [facility] Stop: 03/02/20 11:59 Last Admin: 02/04/20 08:27 Dose: 400 mg Documented by: Metoclopramide HCl (Reglan) 10 mg IV Q6H PRN PRN Reason: Nausea &/or Vomiting Stop: 03/01/20 12:35 Miscellaneous (Carbohydrates For Hypoglycemia) 15 - 30 gm PO UD PRN PRN Reason: Hypoglycemia Protocol Stop: 02/28/20 17:07 Naloxone HCl (Narcan) 0.1 mg IV Q5M PRN; Protocol PRN Reason: Oversedation/Resp Depression Stop: 03/01/20 12:35 Nitroglycerin (Nitrostat) 0.4 mg SL Q5M PRN PRN Reason: CHEST PAIN Stop: 02/28/20 16:11 Ondansetron HCl (Zofran) 4 mg IV Q6H PRN PRN Reason: Nausea And Vomiting Stop: 03/01/20 12:35 Ondansetron HCl (Zofran Odt) 4 mg PO Q6H PRN PRN Reason: Nausea Stop: 03/01/20 12:35 Oxycodone HCl (Roxicodone Immediate Rel) 5 - 10 mg PO Q4H PRN PRN Reason: Moderate-Severe Pain Stop: 02/12/20 15:58 Last Admin: 02/04/20 13:05 Dose: 10 mg Documented by: Pantoprazole Sodium (Protonix) [facility] Stop: 02/29/20 08:59 Last Admin: 02/04/20 08:26 Dose: 40 mg Documented by: Pneumococcal Polyvalent Vaccine (Pneumococcal Vacc, Do Not Administer) 1 ea N/A PRN PRN PRN Reason: Notification Stop: 03/01/20 12:35 Senna/Docusate Sodium (Senokot S) 2 tab PO [facility] Stop: 03/01/20 20:59 Last Admin: 02/03/20 21:43 Dose: Not Given Documented by: Sodium Biphosphate/Sodium Phosphate (Fleet Enema) 132 ml FL ONE PRN PRN Reason: Constipation Stop: 03/01/20 12:35 Terazosin HCl (Hytrin) 2 mg PO HS [facility] Stop: 02/28/20 20:59 Last Admin: 02/03/20 21:42 Dose: 2 mg Documented by: Tramadol HCl (Ultram) 50 - 100 mg PO Q4H PRN PRN Reason: Moderate-Severe Pain Stop: 02/28/20 15:58 Last Admin: 02/04/20 08:27 Dose: 100 mg Documented by:
[2020-02-04] MEDS: HydrALAZINE HCL 20 MG/ML VIAL IV PRN (15:32)
[2020-02-04] MEDS: ACETAMINOPHEN 500 MG TAB PO PRN (20:00)
[2020-02-04] MEDS: ATORVASTATIN 40 MG TAB PO SCH (20:06)
[2020-02-04] MEDS: TERAZOSIN HCL 1 MG CAP PO SCH (20:06)
[2020-02-04] MEDS: DOCUSATE SODIUM/SENNA 50/8.6MG TAB PO SCH (20:07)
[2020-02-04] MEDS: INSULIN GLARGINE SOLOSTAR 100 UNITS/ML 3 ML PEN SC SCH (20:43)
[2020-02-05] MEDS: OXYCODONE HCL IR 5 MG TAB (IMMEDIATE RELEASE) PO PRN ×3 (04:47→20:59)
[2020-02-05] MEDS: LEVOTHYROXINE SODIUM 25 MCG TABLET PO SCH (06:07)
[2020-02-05] MEDS: HYDROmorphone INJ 1 MG/ML SYRINGE IV PRN ×3 (07:35→17:26)
[2020-02-05] MEDS: carvediloL 25 MG TAB PO SCH ×2 (07:50→20:57)
[2020-02-05] MEDS: AMLODIPINE BESYLATE 5 MG TAB PO SCH (07:50)
[2020-02-05] MEDS: AMOXICILLIN/CLAVULANATE 875 MG TAB PO SCH ×2 (08:59→17:25)
[2020-02-05] MEDS: GABAPENTIN 300 MG CAP PO SCH ×3 (09:00→20:57)
[2020-02-05] MEDS: DOCUSATE SODIUM 100 MG CAP PO SCH ×2 (09:00→20:56)
[2020-02-05] MEDS: ASPIRIN 81 MG ECTAB PO SCH (09:01)
[2020-02-05] MEDS: PANTOprazole 40 MG TAB PO SCH (09:01)
[2020-02-05] MEDS: DEXAMETHASONE SOD PHOSPHATE 8 MG in SYRINGE 0 ML IV SCH (09:02)
[2020-02-05] MEDS: MAGNESIUM OXIDE 400 MG TAB PO SCH (09:02)
[2020-02-05] MEDS: FLUOXETINE HCL 20 MG CAP PO SCH (09:02)
[2020-02-05] MEDS: INSULIN ASPART 100 UNITS/ML 3 ML PEN SC SCH ×4 (09:08→21:12)
--- NOTE | 2020-02-05 10:28 | Orthopedic Progress Note ---
Date of Service February 05, 2020 Assessment & Plan (1) Compression fracture of L1 lumbar vertebra: At this time we will initiate physical therapy for transfers and ambulation. If she tolerates therapy today and tomorrow we will consider discharge home. Present on Admission?: Yes Admission and Anticipated Discharge Date Admission Date: January 29, 2020 Subjective Patient complaining of back pain feels that her leg symptoms have improved. Physical Exam Physical Exam: On exam she is neurologically intact. Results & Data ([facility]) Vital Signs (Past 12 Hours) Vital Signs Temp Pulse Resp BP Pulse Ox 02/05/20 08:58 60 149/62 H 93 02/05/20 07:47 74 200/61 H 02/05/20 07:04 36.9 C 81 16 189/70 H 98 02/04/20 22:50 36.5 C 60 16 148/62 H 96
[2020-02-05] MEDS: HydrALAZINE HCL 20 MG/ML VIAL IV PRN (11:47)
--- NOTE | 2020-02-05 13:01 | Hospitalist Progress Note ---
Date of Service February 05, 2020 Assessment & Plan (1) Postoperative back pain: L1 compression fracture Lumbar seroma S/P L3-S1 decompression and fusion on 01/[address] --Lumbar MRI:Interval L2-S1 spinal decompression and fusion. Interval development of an 8.8 x 4.5 x 13.4 cm midline posterior subcutaneous fluid collection which is felt to be postsurgical. Persistent severe T12 compression fracture with 4 mm of retropulsion but no evidence of significant canal compromise. Interval development of a superior endplate L1 compression fracture with 30% loss in height. Interval development of subtle S2 marrow edema suggesting a insufficiency fracture. --Appreciate Ortho input and recommendation --Status post L1 kyphoplasty and I&D of lumbar seroma on 01/31/2020 Continue empiric antibiotics with vancomycin, Zosyn Complains to have more pain which is constant with some radiation in the legs without any fever and/or chills or headache Has been advised bedrest for now by orthopedic surgeon and Decadron has been started Still has severe pain and is not controlled with anti-inflammatory Pain is reasonably controlled today but will have lumbar spine CT to evaluate it further as per Ortho We will continue current medications including Decadron, Toradol and as needed IV Dilaudid Repeat CT of lumbar spine did not show any significant abnormality Has been getting physical therapy and pain medications Likely be discharged tomorrow as per Ortho Medically stable to be discharged (2) Leukocytosis: Urinary tract infection--POA Urine culture E. coli and is pansensitive Continue Zosyn as above and change to oral antibiotic in a day or 2 White cell count has been normalized Surgical site infection has been ruled out We will change antibiotic to oral Augmentin on discharge which will cover UTI and surgical wound at the back Antibiotics will be continued for a total of 7 days No increase in white count We will repeat CBC and PRP tomorrow (3) Hypomagnesemia: Remains low at 1.4 Will supplement-magnesium remains low at 1.5 We will supplement more-we will recheck Magnesium level is normalized (4) Hypokalemia: Replace electrolytes as needed monitor -normalized (5) Diabetes mellitus, type II: Hgb A1c 6.4 12/2019 Hold oral agents Utilize NovoLog per protocol while hospitalized (6) HTN (hypertension): BP elevated likely situational secondary to pain Continue amlodipine, carvedilol, hydralazine Pain control Remains on the upper side at 163/82 this morning Blood pressure remains on the upper side with systolic at 162/51 as of this morning Blood pressure remains elevated We will increase the dose of hydralazine to 50 mg 3 times daily (7) CAD (coronary artery disease): Stable Continue aspirin, statin, beta-pamela (8) Rheumatoid arthritis: Previously on Plaquenil and methotrexate Currently not taking meds No acute arthritis involving any joints (9) DVT prophylaxis: Teds/SCDs as per spine Ortho Disposition As per Primary Team Admission and Anticipated Discharge Date Admission Date: January 29, 2020 Subjective The patient was seen and examined in medical floor She is a status post a long kyphoplasty and I&D for lumbar seroma on 01/31/20 Complains pain at the back but denies any other symptoms 02/01/2020 Patient was seen and examined in medical floor She complains today of some pain at the back with radiation to legs Denies any chest pain or palpitation No fever and/or chills, no abdominal pain, nausea and/or vomiting 02/02/2020 Patient was seen and examined in medical floor She complains to have more pain at the back with radiation down the legs Denies any fever and/or chills, any nausea and or vomiting, any headache or any problem with vision 02/03/2020 Patient was seen and examined in medical floor She complains to extreme pain in the back with radiation to the right lower extremity and has been crying since this morning Received Toradol and was advised to give Dilaudid after I have examined the patient Denies any chest pain or palpitation, no nausea and or vomiting No problem with urination 02/04/2020 The patient was seen and examined in medical floor She has been feeling a lot better today but he still has considerable low back pain with radiation to both the legs She does not have any weakness involving the legs on examination Denies any bladder and/or bowel prep 02/05/2020 The patient was seen and examined in medical floor She has been much better since this morning Still has some pain at the back radiation to the legs Denies any other significant symptoms Review of Systems Review of Systems: All systems reviewed and are unremarkable except as noted below Musculoskeletal: + back pain (Increasing back pain with radiation to legs) Status post L1 kyphoplasty and drainage of lumbar seroma-complains of severe back pain with radiation to right lower extremity Physical Exam Physical Exam: Lying in bed with mild to moderate pain involving the lower back with radiation to legs Constitutional: well developed, well nourished, + acute distress (Minimal distress due to back pain) and + morbidly obese; not ill appearing Eyes: PERRL, conjunctivae normal, anicteric sclerae ENMT: external ear and nose normal, oropharynx normal Neck: trachea midline, no thyromegaly Respiratory: normal respiratory effort; no respiratory distress Auscultation: lungs clear to auscultation bilaterally Cardiovascular: Rate/Rhythm: regular rate and regular rhythm Heart Sounds: no murmur Gastrointestinal (Abdomen): Inspection/Auscultation: abdomen normal to inspection and normal bowel sounds; abdomen not distended Percussio n/Palpation: abdomen soft; abdomen nontender Musculoskeletal: Moderate back pain with movement of the lower extremities Neurologic: moves all extremities; no focal motor deficits Complaints of numbness in the feet but does not have any sensory impairment on gross examination Results & Data Results & Data ([facility]) Vital Signs (Past 12 Hours) Vital Signs Temp Pulse Resp BP Pulse Ox 02/05/20 12:30 66 189/76 H 96 02/05/20 11:24 57 L 181/75 H 96 02/05/20 08:58 60 149/62 H 93 02/05/20 07:47 74 200/61 H 02/05/20 07:04 36.9 C 81 16 189/70 H 98 Medications Administered Current Inpatient Medications Acetaminophen (Tylenol) 1,000 mg PO Q8H PRN PRN Reason: MILD Pain Scale 1,2,3 & Pre PT Stop: 03/01/20 12:35 Last Admin: 02/04/20 20:00 Dose: 1,000 mg Documented by: Al Hydrox/Mg Hydrox/Simethicone (Maalox) 30 ml PO Q6H PRN PRN Reason: Dyspepsia Stop: 03/01/20 12:35 Amlodipine Besylate ([facility]vasc) [facility] [place] Stop: 02/29/20 08:59 Last Admin: 02/05/20 07:50 Dose: 5 mg Documented by: Amoxicillin/Clavulanate Potassium (Augmentin 875mg) 1 tab PO BIDM [facility]; Protocol Stop: 02/06/20 16:59 Last Admin: 02/05/20 08:59 Dose: 1 tab Documented by: Aspirin (Ecotrin Ectab) 81 mg PO QAM [facility] Stop: 02/29/20 08:59 Last Admin: 02/05/20 09:01 Dose: 81 mg Documented by: Atorvastatin Calcium (Lipitor) 40 mg PO HS [facility] Stop: 02/28/20 20:59 Last Admin: 02/04/20 20:06 Dose: 40 mg Documented by: Bisacodyl (Dulcolax) 10 mg WA DAILY PRN PRN Reason: Constipation Stop: 03/01/20 12:35 Carvedilol (Coreg) 25 mg PO BID [facility] Stop: 03/03/20 20:59 Last Admin: 02/05/20 07:50 Dose: 25 mg Documented by: Dextrose (Dextrose 50%) 25 - 50 ml IV UD PRN; Protocol PRN Reason: Hypoglycemia Protocol Stop: 02/28/20 17:07 Diphenhydramine HCl (Benadryl Capsule) 25 mg PO Q6H PRN PRN Reason: Allergic Rhinitis/Insomnia Stop: 03/01/20 12:35 Docusate Sodium (Colace) 100 mg PO BID [facility] Stop: 02/28/20 20:59 Last Admin: 02/05/20 09:00 Dose: 100 mg Documented by: Famotidine (Pepcid) 20 mg PO Q12H PRN PRN Reason: Dyspepsia Stop: 03/01/20 12:35 Fluoxetine HCl (Prozac) 40 mg PO QAM [facility] Stop: 02/29/20 08:59 Last Admin: 02/05/20 09:02 Dose: 40 mg Documented by: Furosemide (Lasix) 20 mg PO DAILY PRN PRN Reason: Weight Gain Stop: 02/28/20 15:58 Gabapentin (Neurontin) 300 mg PO TID [facility] Stop: 02/28/20 20:59 Last Admin: 02/05/20 09:00 Dose: 300 mg Documented by: Glucagon (Glucagen) 1 mg SQ UD PRN; Protocol PRN Reason: Hypoglycemia Protocol Stop: 02/28/20 17:07 Glucose (Dex4 Glucose) 4 - 8 tabs PO UD PRN; Protocol PRN Reason: Hypoglycemia Protocol Stop: 02/28/20 17:07 Glucose (Glucose 40%) 15 - 30 gm PO UD PRN; Protocol PRN Reason: Hypoglycemia Protocol Stop: 02/28/20 17:07 Hydralazine HCl (Apresoline) 25 mg PO TID [facility] Stop: 02/28/20 20:59 Last Admin: 02/05/20 07:50 Dose: 25 mg Documented by: Hydralazine HCl (Hydralazine Hcl) 10 mg IV Q6H PRN PRN Reason: SBP > 170 Stop: 03/03/20 17:14 Last Admin: 02/05/20 11:47 Dose: 10 mg Documented by: Hydromorphone HCl (Dilaudid) 0.5 mg IV Q3H PRN PRN Reason: moderate pain (scale 4-6) Stop: 02/12/20 15:58 Last Admin: 02/02/20 06:26 Dose: 0.5 mg Documented by: Hydromorphone HCl (Dilaudid) 1 mg IV Q3H PRN PRN Reason: severe pain (scale 7-10) Stop: 02/12/20 15:58 Last Admin: 02/05/20 12:34 Dose: 1 mg Documented by: Hydroxyzine HCl (Vistaril) 25 mg PO Q8H PRN PRN Reason: Anxiety Stop: 03/01/20 12:35 Lorazepam (Ativan) 1 mg in 2 mls @ 2 mls/min IV Q6H PRN PRN Reason: Anxiety/Spasms Stop: 02/28/20 15:58 Lorazepam (Ativan) 0.5 mg in 1 mls @ 1 mls/min IV Q8H PRN PRN Reason: Sedation/Anxiety Stop: 03/01/20 12:35 Promethazine HCl 12.5 mg/ (Sodium Chloride) 50.5 mls @ 202 mls/hr IV Q6H PRN PRN Reason: Nausea And Vomiting Stop: 03/01/20 12:35 Dexamethasone Sodium Phosphate (8 mg/ Syringe) 2 mls @ 1 mls/min IV DAILY [facility] Stop: 03/04/20 08:59 Last Admin: 02/05/20 09:02 Dose: 1 mls/min Documented by: Influenza Virus Vaccine Quadrival (Flu Vaccine, Do Not Administer) 1 ea N/A PRN PRN PRN Reason: Notification Stop: 03/01/20 12:35 Insulin Aspart (Novolog Flexpen) 0 units SC ACHS [facility] Stop: 03/01/20 16:29 Last Admin: 02/05/20 12:39 Dose: 6 units Documented by: Insulin Glargine (Lantus Solostar Pen) 7 units SC [facility] Stop: 03/03/20 21:09 Last Admin: 02/04/20 20:43 Dose: 7 units Documented by: Levothyroxine Sodium (Synthroid) 25 mcg PO DAILYBB [facility] Stop: 02/29/20 06:29 Last Admin: 02/05/20 06:07 Dose: 25 mcg Documented by: Lorazepam (Ativan) 1 mg PO Q6H PRN PRN Reason: Anxiety/spasms Stop: 02/28/20 15:58 Lorazepam (Ativan) 0.5 mg PO Q8H PRN PRN Reason: Sedation/Anxiety Stop: 03/01/20 12:35 Magnesium Hydroxide (Milk Of Magnesia) 30 ml PO DAILY PRN PRN Reason: Constipation Stop: 03/01/20 12:35 Last Admin: 02/02/20 09:44 Dose: 30 ml Documented by: Magnesium Oxide (Mag-Ox) 400 mg PO [facility] Stop: 03/02/20 11:59 Last Admin: 02/05/20 09:02 Dose: 400 mg Documented by: Metoclopramide HCl (Reglan) 10 mg IV Q6H PRN PRN Reason: Nausea &/or Vomiting Stop: 03/01/20 12:35 Miscellaneous (Carbohydrates For Hypoglycemia) 15 - 30 gm PO UD PRN PRN Reason: Hypoglycemia Protocol Stop: 02/28/20 17:07 Naloxone HCl (Narcan) 0.1 mg IV Q5M PRN; Protocol PRN Reason: Oversedation/Resp Depression Stop: 03/01/20 12:35 Nitroglycerin (Nitrostat) 0.4 mg SL Q5M PRN PRN Reason: CHEST PAIN Stop: 02/28/20 16:11 Ondansetron HCl (Zofran) 4 mg IV Q6H PRN PRN Reason: Nausea And Vomiting Stop: 03/01/20 12:35 Ondansetron HCl (Zofran Odt) 4 mg PO Q6H PRN PRN Reason: Nausea Stop: 03/01/20 12:35 Oxycodone HCl (Roxicodone Immediate Rel) 5 - 10 mg PO Q4H PRN PRN Reason: Moderate-Severe Pain Stop: 02/12/20 15:58 Last Admin: 02/05/20 09:14 Dose: 10 mg Documented by: Pantoprazole Sodium (Protonix) 40 mg PO [facility] Stop: 02/29/20 08:59 Last Admin: 02/05/20 09:01 Dose: 40 mg Documented by: Pneumococcal Polyvalent Vaccine (Pneumococcal Vacc, Do Not Administer) 1 ea N/A PRN PRN PRN Reason: Notification Stop: 03/01/20 12:35 Senna/Docusate Sodium (Senokot S) 2 tab PO [facility] Stop: 03/01/20 20:59 Last Admin: 02/04/20 20:07 Dose: Not Given Documented by: Sodium Biphosphate/Sodium Phosphate (Fleet Enema) 132 ml WA ONE PRN PRN Reason: Constipation Stop: 03/01/20 12:35 Terazosin HCl (Hytrin) 2 mg PO [facility] Stop: 02/28/20 20:59 Last Admin: 02/04/20 20:06 Dose: 2 mg Documented by: Tramadol HCl (Ultram) 50 - 100 mg PO Q4H PRN PRN Reason: Moderate-Severe Pain Stop: 02/28/20 15:58 Last Admin: 02/04/20 08:27 Dose: 100 mg Documented by:
[2020-02-05] MEDS: HydrALAZINE TAB 50 MG TAB PO SCH ×2 (13:37→20:56)
[2020-02-05] MEDS: ATORVASTATIN 40 MG TAB PO SCH (20:55)
[2020-02-05] MEDS: DOCUSATE SODIUM/SENNA 50/8.6MG TAB PO SCH (20:55)
[2020-02-05] MEDS: TERAZOSIN HCL 1 MG CAP PO SCH (20:56)
[2020-02-05] MEDS: INSULIN GLARGINE SOLOSTAR 100 UNITS/ML 3 ML PEN SC SCH (21:11)
[2020-02-06] MEDS: TRAMADOL HCL 50 MG TABLET PO PRN ×2 (00:37→09:04)
[2020-02-06] MEDS: LEVOTHYROXINE SODIUM 25 MCG TABLET PO SCH (05:51)
[2020-02-06 06:08] LABS: Basophils # (auto) 0.01 K/uL (0-0.2); Basophils % (auto) 0.1 %; Eosinophils # (auto) 0.01 K/uL (0-0.5); Eosinophils % (auto) 0.1 %; Hemoglobin 10.9 g/dL (12.0-16.0); Immature Granulocytes # (auto) 0.08 K/uL (0.00-0.02); Immature Granulocytes % (auto) 1.1 %; Lymphocytes # (auto) 1.16 K/uL (1.2-3.4); Lymphocytes % (auto) 15.4 %; Mean Corpuscular Hemoglobin 31.2 pg (25-34); Mean Corpuscular Hgb Conc 31.1 g/dL (32-36); Mean Corpuscular Volume 100.3 fL (80-100); Mean Platelet Volume 8.5 fL (7.4-10.4); Monocytes # (auto) 0.77 K/uL (0.11-0.59); Monocytes % (auto) 10.2 %; Neutrophils # (auto) 5.51 K/uL (1.4-6.5); Neutrophils % (auto) 73.1 %; Nucleated RBC # (auto) 0.08 K/uL (0-0); Platelet Count 189 K/uL (130-400); RDW Coefficient of Variation 15.3 % (11.5-14.5); RDW Standard Deviation 54.2 fL (36.4-46.3); Red Blood Count 3.49 M/uL (4.2-5.4); White Blood Count 7.54 K/uL (4.8-10.8)
[2020-02-06] MEDS: OXYCODONE HCL IR 5 MG TAB (IMMEDIATE RELEASE) PO PRN ×3 (06:32→22:03)
[2020-02-06 06:48] LABS: BUN Creatinine Ratio 23.4 (10-20); Calcium 8.8 mg/dl (8.5-10.1); Creatinine Clr Calc Pharmacy 87.8 ml/min; Est GFR (African American) 93.4; Est GFR (Non-African American) 80.6; Magnesium 1.7 mg/dl (1.8-2.4)
[2020-02-06] MEDS: AMLODIPINE BESYLATE 5 MG TAB PO SCH (07:24)
[2020-02-06] MEDS: carvediloL 25 MG TAB PO SCH ×2 (07:24→20:13)
[2020-02-06] MEDS: HydrALAZINE TAB 50 MG TAB PO SCH ×3 (07:24→20:13)
[2020-02-06] MEDS: HYDROmorphone INJ 1 MG/ML SYRINGE IV PRN ×2 (07:47→14:28)
--- NOTE | 2020-02-06 08:27 | Orthopedic Progress Note ---
Date of Service February 06, 2020 Assessment & Plan (1) Compression fracture of L1 lumbar vertebra: Patient seems to be struggling with significant back pain with sitting. I suspect this is related to muscle atrophy and deconditioning. I would like her to undergo transfers with limited sitting today. She is to walk as far as tolerated. I ordered an LSO brace to wear when she is out of bed only. Present on Admission?: Yes Admission and Anticipated Discharge Date Admission Date: January 29, 2020 Subjective Patient continue complaining today of mostly axial back pain she denies any leg pain. She states that prolonged sitting exacerbate her pain. Lying supine is tolerable. Physical Exam Physical Exam: She does have good strength testing lower extremities. Results & Data ([facility]) Vital Signs (Past 12 Hours) Vital Signs Temp Pulse Pulse Resp BP Pulse Ox 02/06/20 07:23 62 182/99 H 96 02/06/20 07:06 36.6 C 62 18 197/74 H 96 02/05/20 23:27 36.6 C 73 18 167/68 H 95 02/05/20 20:50 74 203/78 H
[2020-02-06] MEDS: GABAPENTIN 300 MG CAP PO SCH ×3 (08:52→20:13)
[2020-02-06] MEDS: FLUOXETINE HCL 20 MG CAP PO SCH (08:52)
[2020-02-06] MEDS: DOCUSATE SODIUM 100 MG CAP PO SCH ×2 (08:53→20:13)
[2020-02-06] MEDS: AMOXICILLIN/CLAVULANATE 875 MG TAB PO SCH (08:53)
[2020-02-06] MEDS: DEXAMETHASONE SOD PHOSPHATE 8 MG in SYRINGE 0 ML IV SCH (08:53)
[2020-02-06] MEDS: ASPIRIN 81 MG ECTAB PO SCH (08:53)
[2020-02-06] MEDS: PANTOprazole 40 MG TAB PO SCH (08:54)
[2020-02-06] MEDS: MAGNESIUM OXIDE 400 MG TAB PO SCH (08:54)
[2020-02-06] MEDS: INSULIN ASPART 100 UNITS/ML 3 ML PEN SC SCH ×4 (09:05→21:45)
[2020-02-06] MEDS: HydrALAZINE HCL 20 MG/ML VIAL IV PRN (10:58)
--- NOTE | 2020-02-06 15:03 | Hospitalist Progress Note ---
Date of Service February 06, 2020 Assessment & Plan (1) Postoperative back pain: L1 compression fracture Lumbar seroma S/P L3-S1 decompression and fusion on 01/[address] --Lumbar MRI:Interval L2-S1 spinal decompression and fusion. Interval development of an 8.8 x 4.5 x 13.4 cm midline posterior subcutaneous fluid collection which is felt to be postsurgical. Persistent severe T12 compression fracture with 4 mm of retropulsion but no evidence of significant canal compromise. Interval development of a superior endplate L1 compression fracture with 30% loss in height. Interval development of subtle S2 marrow edema suggesting a insufficiency fracture. --Appreciate Ortho input and recommendation --Status post L1 kyphoplasty and I&D of lumbar seroma on 01/31/2020 Continue empiric antibiotics with vancomycin, Zosyn Complains to have more pain which is constant with some radiation in the legs without any fever and/or chills or headache Has been advised bedrest for now by orthopedic surgeon and Decadron has been started Still has severe pain and is not controlled with anti-inflammatory Pain is reasonably controlled today but will have lumbar spine CT to evaluate it further as per Ortho We will continue current medications including Decadron, Toradol and as needed IV Dilaudid Repeat CT of lumbar spine did not show any significant abnormality Has been getting physical therapy and pain medications Likely be discharged tomorrow as per Ortho Pain is not yet reasonably controlled to be discharged Urinary incontinence Has a problem before admission Recommendation has been worse following admission Complicated by UTI-has been receiving Augmentin to cover UTI and surgery site. Advised to have outpatient urology appointment as soon as possible on discharge Will not put any medications for now (2) Leukocytosis: Urinary tract infection--POA Urine culture E. coli and is pansensitive Continue Zosyn as above and change to oral antibiotic in a day or 2 White cell count has been normalized Surgical site infection has been ruled out We will change antibiotic to oral Augmentin on discharge which will cover UTI and surgical wound at the back Antibiotics will be continued for a total of 7 days No increase in white count We will repeat CBC and PRP tomorrow-remains stable as of 02/06/2020 (3) Hypomagnesemia: Remains low at 1.4 Will supplement-magnesium remains low at 1.5 We will supplement more-we will recheck Magnesium level is normalized and remains around 1.7 (4) Hypokalemia: Replace electrolytes as needed monitor -normalized (5) Diabetes mellitus, type II: Hgb A1c 6.4 12/2019 Hold oral agents Utilize NovoLog per protocol while hospitalized (6) HTN (hypertension): BP elevated likely situational secondary to pain Continue amlodipine, carvedilol, hydralazine Pain control Remains on the upper side at 163/82 this morning Blood pressure remains on the upper side with systolic at 162/51 as of this morning Blood pressure remains elevated We will increase the dose of hydralazine to 50 mg 3 times daily Blood pressure remains upper side-will not start any other medications or increase doses for now Observe (7) CAD (coronary artery disease): Stable Continue aspirin, statin, beta-pamela (8) Rheumatoid arthritis: Previously on Plaquenil and methotrexate Currently not taking meds No acute arthritis involving any joints (9) DVT prophylaxis: Teds/SCDs as per spine Ortho Disposition As per Primary Team Admission and Anticipated Discharge Date Admission Date: January 29, 2020 Subjective The patient was seen and examined in medical floor She is a status post a long kyphoplasty and I&D for lumbar seroma on 01/31/20 Complains pain at the back but denies any other symptoms 02/01/2020 Patient was seen and examined in medical floor She complains today of some pain at the back with radiation to legs Denies any chest pain or palpitation No fever and/or chills, no abdominal pain, nausea and/or vomiting 02/02/2020 Patient was seen and examined in medical floor She complains to have more pain at the back with radiation down the legs Denies any fever and/or chills, any nausea and or vomiting, any headache or any problem with vision 02/03/2020 Patient was seen and examined in medical floor She complains to extreme pain in the back with radiation to the right lower extremity and has been crying since this morning Received Toradol and was advised to give Dilaudid after I have examined the patient Denies any chest pain or palpitation, no nausea and or vomiting No problem with urination 02/04/2020 The patient was seen and examined in medical floor She has been feeling a lot better today but he still has considerable low back pain with radiation to both the legs She does not have any weakness involving the legs on examination Denies any bladder and/or bowel prep 02/05/2020 The patient was seen and examined in medical floor She has been much better since this morning Still has some pain at the back radiation to the legs Denies any other significant symptoms 02/06/2020 The patient was seen and examined in medical floor She still complains to have significant low back pain Her recent symptoms being incontinence of urine especially when she stands up and starts ambulating She has had this problem before but seems to be worse recently Review of Systems Review of Systems: All systems reviewed and are unremarkable except as noted below Genitourinary: + urinary incontinence (Especially with standing and ambulatin g-worsening) Musculoskeletal: + back pain (Increasing back pain with radiation to legs) Status post L1 kyphoplasty and drainage of lumbar seroma-complains of severe back pain with radiation to right lower extremity Physical Exam Physical Exam: Lying in bed with mild pain involving the lower back with radiation to legs Constitutional: well developed, well nourished, + acute distress (Minimal distress due to back pain) and + morbidly obese; not ill appearing Eyes: PERRL, conjunctivae normal, anicteric sclerae ENMT: external ear and nose normal, oropharynx normal Neck: trachea midline, no thyromegaly Respiratory: normal respiratory effort; no respiratory distress Auscultation: lungs clear to auscultation bilaterally Cardiovascular: Rate/Rhythm: regular rate and regular rhythm Heart Sounds: no murmur Gastrointestinal (Abdomen): Inspection/Auscultation: abdomen normal to inspection and normal bowel sounds; abdomen not distended Percussion/Palpation: abdomen soft; abdomen nontender Musculoskeletal: Still has back pain with radiation to the legs Neurologic: moves all extremities; no focal motor deficits Remains weak and lethargic Results & Data Results & Data ([facility]) Vital Signs (Past 12 Hours) Vital Signs Temp Pulse Resp BP Pulse Ox 02/06/20 11:49 56 L 170/78 H 95 02/06/20 10:49 55 L 181/83 H 97 02/06/20 09:09 57 L 167/83 H 95 02/06/20 07:23 62 182/99 H 96 02/06/20 07:06 36.6 C 62 18 197/74 H 96 Laboratory Results Short CBC 02/06/20 Range/Units 05:52 WBC 7.54 (4.8-10.8) K/uL Hgb 10.9 L (12.0-16.0) g/dL Hct 35.0 L (37-47) % Plt Count 189 (130-400) K/uL BMP 02/06/20 05:52 Sodium 141 Potassium 4.0 Chloride 105 Carbon Dioxide 30 BUN 17 Creatinine 0.73 Glucose 165 H Calcium 8.8 Medications Administered Current Inpatient Medications Acetaminophen (Tylenol) 1,000 mg PO Q8H PRN PRN Reason: MILD Pain Scale 1,2,3 & Pre PT Stop: 03/01/20 12:35 Last Admin: 02/04/20 20:00 Dose: 1,000 mg Documented by: Al Hydrox/Mg Hydrox/Simethicone (Maalox) 30 ml PO Q6H PRN PRN Reason: Dyspepsia Stop: 03/01/20 12:35 Amlodipine Bes[facility] ([facility]asc) [facility] [place] Stop: 02/29/20 08:59 Last Admin: 02/06/20 07:24 Dose: 5 mg Documented by: Amoxicillin/Clavulanate Potassium (Augmentin 875mg) 1 tab PO BIDM [facility]; Protocol Stop: 02/06/20 16:59 Last Admin: 02/06/20 08:53 Dose: 1 tab Documented by: Aspirin (Ecotrin Ectab) 81 [facility] Stop: 02/29/20 08:59 Last Admin: 02/06/20 08:53 Dose: 81 mg Documented by: Atorvastatin Calcium (Lipitor) 40 mg PO [facility] Stop: 02/28/20 20:59 Last Admin: 02/05/20 20:55 Dose: 40 mg Documented by: Bisacodyl (Dulcolax) 10 mg AK DAILY PRN PRN Reason: Constipation Stop: 03/01/20 12:35 Carvedilol (Coreg) 25 mg PO BID [facility] Stop: 03/03/20 20:59 Last Admin: 02/06/20 07:24 Dose: 25 mg Documented by: Dextrose (Dextrose 50%) 25 - 50 ml IV UD PRN; Protocol PRN Reason: Hypoglycemia Protocol Stop: 02/28/20 17:07 Diphenhydramine HCl (Benadryl Capsule) 25 mg PO Q6H PRN PRN Reason: Allergic Rhinitis/Insomnia Stop: 03/01/20 12:35 Docusate Sodium (Colace) 100 mg PO BID [facility] Stop: 02/28/20 20:59 Last Admin: 02/06/20 08:53 Dose: 100 mg Documented by: Famotidine (Pepcid) 20 mg PO Q12H PRN PRN Reason: Dyspepsia Stop: 03/01/20 12:35 Fluoxetine HCl (Prozac) 40 mg PO QAM [facility] Stop: 02/29/20 08:59 Last Admin: 02/06/20 08:52 Dose: 40 mg Documented by: Furosemide (Lasix) 20 mg PO DAILY PRN PRN Reason: Weight Gain Stop: 02/28/20 15:58 Gabapentin (Neurontin) 300 mg PO TID [facility] Stop: 02/28/20 20:59 Last Admin: 02/06/20 13:49 Dose: 300 mg Documented by: Glucagon (Glucagen) 1 mg SQ UD PRN; Protocol PRN Reason: Hypoglycemia Protocol Stop: 02/28/20 17:07 Glucose (Dex4 Glucose) 4 - 8 tabs PO UD PRN; Protocol PRN Reason: Hypoglycemia Protocol Stop: 02/28/20 17:07 Glucose (Glucose 40%) 15 - 30 gm PO UD PRN; Protocol PRN Reason: Hypoglycemia Protocol Stop: 02/28/20 17:07 Hydralazine HCl (Hydralazine Hcl) 10 mg IV Q6H PRN PRN Reason: SBP > 170 Stop: 03/03/20 17:14 Last Admin: 02/06/20 10:58 Dose: 10 mg Documented by: Hydralazine HCl (Apresoline) 50 mg PO TID [facility] Stop: 03/06/20 13:59 Last Admin: 02/06/20 13:50 Dose: 50 mg Documented by: Hydromorphone HCl (Dilaudid) 0.5 mg IV Q3H PRN PRN Reason: moderate pain (scale 4-6) Stop: 02/12/20 15:58 Last Admin: 02/02/20 06:26 Dose: 0.5 mg Documented by: Hydromorphone HCl (Dilaudid) 1 mg IV Q3H PRN PRN Reason: severe pain (scale 7-10) Stop: 02/12/20 15:58 Last Admin: 02/06/20 14:28 Dose: 1 mg Documented by: Hydroxyzine HCl (Vistaril) 25 mg PO Q8H PRN PRN Reason: Anxiety Stop: 03/01/20 12:35 Lorazepam (Ativan) 1 mg in 2 mls @ 2 mls/min IV Q6H PRN PRN Reason: Anxiety/Spasms Stop: 02/28/20 15:58 Lorazepam (Ativan) 0.5 mg in 1 mls @ 1 mls/min IV Q8H PRN PRN Reason: Sedation/Anxiety Stop: 03/01/20 12:35 Promethazine HCl 12.5 mg/ (Sodium Chloride) 50.5 mls @ 202 mls/hr IV Q6H PRN PRN Reason: Nausea And Vomiting Stop: 03/01/20 12:35 Dexamethasone Sodium Phosphate (8 mg/ Syringe) 2 mls @ 1 mls/min IV DAILY [facility] Stop: 03/04/20 08:59 Last Admin: 02/06/20 08:53 Dose: 1 mls/min Documented by: Influenza Virus Vaccine Quadrival (Flu Vaccine, Do Not Administer) 1 ea N/A PRN PRN PRN Reason: Notification Stop: 03/01/20 12:35 Insulin Aspart (Novolog Flexpen) 0 units SC ACHS [facility] Stop: 03/01/20 16:29 Last Admin: 02/06/20 12:38 Dose: 8 units Documented by: Insulin Glargine (Lantus Solostar Pen) 7 units SC HS [facility] Stop: 03/03/20 21:09 Last Admin: 02/05/20 21:11 Dose: 7 units Documented by: Levothyroxine Sodium (Synthroid) 25 mcg PO DAILYBB [facility] Stop: 02/29/20 06:29 Last Admin: 02/06/20 05:51 Dose: 25 mcg Documented by: Lorazepam (Ativan) 1 mg PO Q6H PRN PRN Reason: Anxiety/spasms Stop: 02/28/20 15:58 Lorazepam (Ativan) 0.5 mg PO Q8H PRN PRN Reason: Sedation/Anxiety Stop: 03/01/20 12:35 Magnesium Hydroxide (Milk Of Magnesia) 30 ml PO DAILY PRN PRN Reason: Constipation Stop: 03/01/20 12:35 Last Admin: 02/02/20 09:44 Dose: 30 ml Documented by: Magnesium Oxide (Mag-Ox) 400 mg PO QAM [facility] Stop: 03/02/20 11:59 Last Admin: 08/11/20 08:54 Dose: 400 mg Documented by: Metoclopramide HCl (Reglan) 10 mg IV Q6H PRN PRN Reason: Nausea &/or Vomiting Stop: 03/01/20 12:35 Miscellaneous (Carbohydrates For Hypoglycemia) 15 - 30 gm PO UD PRN PRN Reason: Hypoglycemia Protocol Stop: 02/28/20 17:07 Naloxone HCl (Narcan) 0.1 mg IV Q5M PRN; Protocol PRN Reason: Oversedation/Resp Depression Stop: 03/01/20 12:35 Nitroglycerin (Nitrostat) 0.4 mg SL Q5M PRN PRN Reason: CHEST PAIN Stop: 02/28/20 16:11 Ondansetron HCl (Zofran) 4 mg IV Q6H PRN PRN Reason: Nausea And Vomiting Stop: 03/01/20 12:35 Ondansetron HCl (Zofran Odt) 4 mg PO Q6H PRN PRN Reason: Nausea Stop: 03/01/20 12:35 Oxycodone HCl (Roxicodone Immediate Rel) 5 - 10 mg PO Q4H PRN PRN Reason: Moderate-Severe Pain Stop: 02/12/20 15:58 Last Admin: 02/06/20 10:55 Dose: 10 mg Documented by: Pantoprazole Sodium (Protonix) 40 mg PO [facility] Stop: 02/29/20 08:59 Last Admin: 02/06/20 08:54 Dose: 40 mg Documented by: Pneumococcal Polyvalent Vaccine (Pneumococcal Vacc, Do Not Administer) 1 ea N/A PRN PRN PRN Reason: Notification Stop: 03/01/20 12:35 Senna/Docusate Sodium (Senokot S) 2 tab PO [facility] Stop: 03/01/20 20:59 Last Admin: 02/05/20 20:55 Dose: 2 tab Documented by: Sodium Biphosphate/Sodium Phosphate (Fleet Enema) 132 ml AK ONE PRN PRN Reason: Constipation Stop: 03/01/20 12:35 Terazosin HCl (Hytrin) 2 mg PO [facility] Stop: 02/28/20 20:59 Last Admin: 02/05/20 20:56 Dose: 2 mg Documented by: Tramadol HCl (Ultram) 50 - 100 mg PO Q4H PRN PRN Reason: Moderate-Severe Pain Stop: 02/28/20 15:58 Last Admin: 02/06/20 09:04 Dose: 100 mg Documented by:
[2020-02-06] MEDS: ACETAMINOPHEN 500 MG TAB PO PRN (15:27)
[2020-02-06] MEDS ORDERED: LORazepam 0.25 MG/0.5 ML VIAL IV PRN (15:52)
[2020-02-06 19:08] LABS: Appearance Urine Clear (Clear); Bacteria Urine Automated Negative (Negative); Bilirubin Urine Negative (Negative); Blood Urine Negative (Negative); Cast Urine Automated 0 /lpf (0-5); Color Urine Yellow; Glucose Urine UA Negative (Negative); Ketones Urine Negative (Negative); Leukocyte Esterase Urine Negative (Negative); Nitrite Urine Negative (Negative); Protein Urine 1+ (Negative); RBC Urine Automated 0-4 /hpf (0-4); Specific Gravity Urine 1.012 (1.000-1.030); Urobilinogen Urine Negative (Negative)
[2020-02-06] MEDS: ATORVASTATIN 40 MG TAB PO SCH (20:13)
[2020-02-06] MEDS: TERAZOSIN HCL 1 MG CAP PO SCH (20:13)
[2020-02-06] MEDS: DOCUSATE SODIUM/SENNA 50/8.6MG TAB PO SCH (20:14)
[2020-02-06] MEDS: INSULIN GLARGINE SOLOSTAR 100 UNITS/ML 3 ML PEN SC SCH (21:46)
[2020-02-07] MEDS: OXYCODONE HCL IR 5 MG TAB (IMMEDIATE RELEASE) PO PRN ×3 (05:57→16:54)
[2020-02-07] MEDS: LEVOTHYROXINE SODIUM 25 MCG TABLET PO SCH (05:57)
[2020-02-07] MEDS: HydrALAZINE TAB 50 MG TAB PO SCH ×3 (07:27→20:05)
[2020-02-07] MEDS: AMLODIPINE BESYLATE 5 MG TAB PO SCH (07:28)
[2020-02-07] MEDS: TRAMADOL HCL 50 MG TABLET PO PRN ×3 (07:33→18:26)
[2020-02-07] MEDS: DEXAMETHASONE SOD PHOSPHATE 8 MG in SYRINGE 0 ML IV SCH (08:46)
[2020-02-07] MEDS: DOCUSATE SODIUM 100 MG CAP PO SCH ×2 (08:46→20:05)
[2020-02-07] MEDS: carvediloL 25 MG TAB PO SCH ×2 (08:47→20:05)
[2020-02-07] MEDS: MAGNESIUM OXIDE 400 MG TAB PO SCH (08:47)
[2020-02-07] MEDS: PANTOprazole 40 MG TAB PO SCH (08:47)
[2020-02-07] MEDS: ASPIRIN 81 MG ECTAB PO SCH (08:47)
[2020-02-07] MEDS: GABAPENTIN 300 MG CAP PO SCH ×3 (08:48→20:05)
[2020-02-07] MEDS: FLUOXETINE HCL 20 MG CAP PO SCH (08:48)
[2020-02-07] MEDS: INSULIN ASPART 100 UNITS/ML 3 ML PEN SC SCH ×4 (08:52→21:28)
[2020-02-07] MEDS: HYDROmorphone INJ 1 MG/ML SYRINGE IV PRN ×2 (11:09→14:21)
--- NOTE | 2020-02-07 13:59 | Magnetic Resonance Report ---
MRI OF THE LUMBAR SPINE WITHOUT IV CONTRAST CLINICAL HISTORY: Chronic low back pain. Bilateral leg pain. COMPARISON STUDY: CT lumbar spine dated 02/04/2020. MRI lumbar spine dated 11/14/2018. TECHNIQUE: MRI of the lumbar spine was performed utilizing various T1 and T2-weighted sequences in th e axial and sagittal planes. IV contrast was not administered for this examination. The examination i s degraded by motion artifact and by susceptibility artifact from extensive orthopedic spinal hardwar e. FINDINGS: Lumbar spine: Marrow signal intensity is markedly heterogeneous. There are compression deformities of T12 and L1 with evidence of previous vertebroplasty. The L1 vertebroplasty is new from the 01/29/2020 examination. Vertebral body height is otherwise maintained throughout the lumbar spine. There is 5 mm of anterolisthesis at L5-S1. Minimal anterolisthesis is seen at L1-L2, L2-L3, and L3-L4. There is po stoperative change from laminectomy and posterior fusion seen from L2-S1. Interpedicular screws are p resent at all levels. No destructive bony lesion is seen. Intervertebral discs: There has been discectomy at L3-L4, L4-L5, and L5-S1. Degenerative disc desicca tion is noted in the upper lumbar levels. Spinal cord: The visualized spinal cord is normal in morphology and signal intensity. The conus medul david terminates at the level of L1. T12-L1: Unremarkable. L1-L2: The central canal is clear. Facet arthropathy causes mild bilateral neural foraminal narrowing . L2-L3: The central canal and neural foramina are grossly clear. L3-L4: The central canal and neural foramina are grossly clear. L4-L5: The central canal and neural foramina are grossly clear. L5-S1: The central canal is grossly clear. Anterolisthesis contributes to mild to moderate bilateral neural foraminal narrowing. Sacrum: There are bilateral sacral insufficiency fractures which cross midline at S1-S2. Soft tissues: Postoperative change is seen within the posterior paraspinous soft tissues throughout t he operative levels. The postoperative fluid collection seen on 01/29/2020 has almost completely resolv ed. There is trace residual subcutaneous fluid deep to the incision site. There is fatty atrophy of t he paraspinous musculature. A left renal cyst is partially visualized. IMPRESSION: 1. There are large bilateral sacral insufficiency fractures with associated marrow edema. This crosse s midline at S1-S2. 2. Spondylosis with extensive postoperative change throughout the lumbar spine as above. This is rivera lar to recent prior studies. 3. There is no evidence of central canal stenosis. 4. There is a subacute compression fracture of L1 with evidence of interval vertebroplasty. 5. The postoperative fluid collection seen on 01/29/2020 has almost completely resolved. Dictated: 02/07/2020 12:37 PM Transcribed: 02/07/2020 1:54 PM Pamela [id number] [facility] Electronically signed by: Joao Dan M.D. 02/07/2020 1:58 PM
--- NOTE | 2020-02-07 15:57 | Orthopedic Progress Note ---
Date of Service February 07, 2020 Assessment & Plan (1) Sacral fracture: Admission and Anticipated Discharge Date Admission Date: January 29, 2020 Patient continues have severe pain associated obtain an MRI this morning. It demonstrates an S1-S2 fracture with bilateral sacral alar fractures. This clearly is etiology of symptom complex. We may consider lumbar pelvic stabilization to span the fracture and provide some pain relief and allow us to begin mobilization. If we were to pursue this path we would do so on Wednesday of this week. Subjective Patient continues to have lumbosacral back pain is incapacitating in nature. She has some leg numbness. She was able to tolerate some modest walking yesterday but has declined significantly since. Physical Exam Physical Exam: On exam she has reasonable strength testing lower extremities. The incision appears to be clean dry and intact there is no erythema no draina ge. Results & Data ([facility]) Vital Signs (Past 12 Hours) Vital Signs Temp Pulse Pulse Resp BP Pulse Ox 02/07/20 15:21 162/76 H 02/07/20 14:52 36.7 C 57 L 17 171/69 H 97 02/07/20 13:43 63 174/73 H 98 02/07/20 08:45 62 181/75 H 99 02/07/20 07:21 36.9 C 58 L 18 200/76 H 95
--- NOTE | 2020-02-07 19:01 | Hospitalist Progress Note ---
Date of Service February 07, 2020 Assessment & Plan (1) Postoperative back pain: L1 compression fracture Lumbar seroma S/P L3-S1 decompression and fusion on 01/[address] --Lumbar MRI:Interval L2-S1 spinal decompression and fusion. Interval development of an 8.8 x 4.5 x 13.4 cm midline posterior subcutaneous fluid collection which is felt to be postsurgical. Persistent severe T12 compression fracture with 4 mm of retropulsion but no evidence of significant canal compromise. Interval development of a superior endplate L1 compression fracture with 30% loss in height. Interval development of subtle S2 marrow edema suggesting a insufficiency fracture. --Appreciate Ortho input and recommendation --Status post L1 kyphoplasty and I&D of lumbar seroma on 01/31/2020 Continue empiric antibiotics with vancomycin, Zosyn Complains to have more pain which is constant with some radiation in the legs without any fever and/or chills or headache Has been advised bedrest for now by orthopedic surgeon and Decadron has been started Still has severe pain and is not controlled with anti-inflammatory Pain is reasonably controlled today but will have lumbar spine CT to evaluate it further as per Ortho We will continue current medications including Decadron, Toradol and as needed IV Dilaudid Repeat CT of lumbar spine did not show any significant abnormality Has been getting physical therapy and pain medications Pain is not yet reasonably controlled to be discharged MRI ordered by Dr. Street to further evaluate (02/06) Urinary incontinence Has a problem before admission Recommendation has been worse following admission Complicated by UTI-has been receiving Augmentin to cover UTI and surgery site. Advised to have outpatient urology appointment as soon as possible on discharge Will not put any medications for now (2) Leukocytosis: Urinary tract infection--POA Urine culture E. coli and is pansensitive Continue Zosyn as above and change to oral antibiotic in a day or 2 White cell count has been normalized Surgical site infection has been ruled out We will change antibiotic to oral Augmentin on discharge which will cover UTI and surgical wound at the back Antibiotics will be continued for a total of 7 days No increase in white count We will repeat CBC and PRP tomorrow-remains stable as of 02/06/2020 (3) Hypomagnesemia: Remains low at 1.4 Will supplement-magnesium remains low at 1.5 We will supplement more-we will recheck Magnesium level is normalized and remains around 1.7 (4) Hypokalemia: Replace electrolytes as needed monitor -normalized (5) Diabetes mellitus, type II: Hgb A1c 6.4 12/2019 Hold oral agents Utilize NovoLog per protocol while hospitalized (6) HTN (hypertension): BP elevated likely situational secondary to pain Continue amlodipine, carvedilol, hydralazine Pain control Remains on the upper side at 163/82 this morning Blood pressure remains on the upper side with systolic at 162/51 as of this morning Blood pressure remains elevated increased the dose of hydralazine to 50 mg 3 times daily Blood pressure remains upper side-will not start any other medications or increase doses for now Observe (7) CAD (coronary artery disease): Stable Continue aspirin, statin, beta-pamela (8) Rheumatoid arthritis: Previously on Plaquenil and methotrexate Currently not taking meds No acute arthritis involving any joints (9) DVT prophylaxis: Teds/SCDs as per spine Ortho Disposition As per Primary Team Admission and Anticipated Discharge Date Admission Date: January 29, 2020 Subjective Patient continues to have lumbosacral back pain radiating to legs. Complains of urinary incontinence when she stands up. No fever, chills, chest pain, shortness of breath, abd. pain, n/v. MRI ordered by Dr. Street to further evaluate. Review of Systems Review of Systems: All systems reviewed & are unremarkable except as noted in HPI & below Constitutional: no fever and no chills Respiratory: no cough and no dyspnea Cardiovascular: no chest pain and no palpitations Gastrointestinal: no abdominal pain and no vomiting Genitourinary: + urinary incontinence (Especially with standing and ambulating-worsening) Musculoskeletal: + back pain (Increasing back pain with radiation to legs) Status post L1 kyphoplasty and drainage of lumbar seroma-complains of severe back pain with radiation to right lower extremity Physical Exam Physical Exam: Physical Exam: Lying in bed with some pain involving the lower back with radiation to legs Constitutional: well developed, well nourished, + acute distress (Minimal distress due to back pain) and + obese; not ill appearing Eyes: PERRL, conjunctivae normal, anicteric sclerae ENMT: external ear and nose normal, oropharynx normal Neck: trachea midline, no thyromegaly Respiratory: normal respiratory effort; no respiratory distress Auscultation: lungs clear to auscultation bilaterally Cardiovascular: Rate/Rhythm: regular rate and regular rhythm Heart Sounds: no murmur Gastrointestinal (Abdomen): Inspection/Auscultation: abdomen normal to inspection and normal bowel sounds; abdomen not distended Percussion/Palpation: abdomen soft; abdomen nontender Musculoskeletal: + back pain with radiation to the legs Neurologic: moves all extremities; no focal motor deficits Remains weak and lethargic Results & Data Results & Data ([facility]) Vital Signs (Past 12 Hours) Vital Signs Temp Pulse Pulse Resp BP Pulse Ox 02/07/20 15:21 162/76 H 02/07/20 14:52 36.7 C 57 L 17 171/69 H 97 02/07/20 13:43 63 174/73 H 98 02/07/20 08:45 62 181/75 H 99 02/07/20 07:21 36.9 C 58 L 18 200/76 H 95 Laboratory Results 02/07/20 02/07/20 02/07/20 Range/Units 20:37 16:54 12:24 POC Glucose 254 H 204 H 176 H (70-99) mg/dl 02/07/20 Range/Units 08:13 POC Glucose 155 H (70-99) mg/dl Medications Administered Current Inpatient Medications Acetaminophen (Tylenol) 1,000 mg PO Q8H PRN PRN Reason: MILD Pain Scale 1,2,3 & Pre PT Stop: 03/01/20 12:35 Last Admin: 02/06/20 15:27 Dose: 1,000 mg Documented by: Al Hydrox/Mg Hydrox/Simethicone (Maalox) 30 ml PO Q6H PRN PRN Reason: Dyspepsia Stop: 03/01/20 12:35 [facility]mlod[facility] Stop: 02/29/20 08:59 Last Admin: 02/07/20 07:28 Dose: 5 mg Documented by: Aspirin (Ecotrin Ectab) [facility] Stop: 02/29/20 08:59 Last Admin: 02/07/20 08:47 Dose: 81 mg Documented by: Atorvastatin Calcium (Lipitor) 40 mg PO [facility] Stop: 02/28/20 20:59 Last Admin: 02/07/20 20:05 Dose: 40 mg Documented by: Bisacodyl (Dulcolax) 10 mg [facility] DAILY PRN PRN Reason: Constipation Stop: 03/01/20 12:35 Carvedilol (Coreg) 25 mg PO BID [facility] Stop: 03/03/20 20:59 Last Admin: 02/07/20 20:05 Dose: 25 mg Documented by: Dextrose (Dextrose 50%) 25 - 50 ml IV UD PRN; Protocol PRN Reason: Hypoglycemia Protocol Stop: 02/28/20 17:07 Diphenhydramine HCl (Benadryl Capsule) 25 mg PO Q6H PRN PRN Reason: Allergic Rhinitis/Insomnia Stop: 03/01/20 12:35 Docusate Sodium (Colace) 100 mg PO BID [facility] Stop: 02/28/20 20:59 Last Admin: 02/07/20 20:05 Dose: 100 mg Documented by: Famotidine (Pepcid) 20 mg PO Q12H PRN PRN Reason: Dyspepsia Stop: 03/01/20 12:35 Fluoxetine HCl (Prozac) 40 mg PO QAM [facility] Stop: 02/29/20 08:59 Last Admin: 02/07/20 08:48 Dose: 40 mg Documented by: Furosemide (Lasix) 20 mg PO DAILY PRN PRN Reason: Weight Gain Stop: 02/28/20 15:58 Gabapentin (Neurontin) 300 mg PO TID [facility] Stop: 02/28/20 20:59 Last Admin: 02/07/20 20:05 Dose: 300 mg Documented by: Glucagon (Glucagen) 1 mg SQ UD PRN; Protocol PRN Reason: Hypoglycemia Protocol Stop: 02/28/20 17:07 Glucose (Dex4 Glucose) 4 - 8 tabs PO UD PRN; Protocol PRN Reason: Hypoglycemia Protocol Stop: 02/28/20 17:07 Glucose (Glucose 40%) 15 - 30 gm PO UD PRN; Protocol PRN Reason: Hypoglycemia Protocol Stop: 02/28/20 17:07 Hydralazine HCl (Hydralazine Hcl) 10 mg IV Q6H PRN PRN Reason: SBP > 170 Stop: 03/03/20 17:14 Last Admin: 02/06/20 10:58 Dose: 10 mg Documented by: Hydralazine HCl (Apresoline) 50 mg PO TID [facility] Stop: 03/06/20 13:59 Last Admin: 02/07/20 20:05 Dose: 50 mg Documented by: Hydromorphone HCl (Dilaudid) 0.5 mg IV Q3H PRN PRN Reason: moderate pain (scale 4-6) Stop: 02/12/20 15:58 Last Admin: 02/02/20 06:26 Dose: 0.5 mg Documented by: Hydromorphone HCl (Hydromorphone Inj 1 Mg/Ml Syringe) 1 mg IV Q3H PRN PRN Reason: severe pain (scale 7-10) Stop: 02/12/20 15:58 Last Admin: 02/07/20 14:21 Dose: 1 mg Documented by: Hydroxyzine HCl (Vistaril) 25 mg PO Q8H PRN PRN Reason: Anxiety Stop: 03/01/20 12:35 Lorazepam (Ativan) 1 mg in 2 mls @ 2 mls/min IV Q6H PRN PRN Reason: Anxiety/Spasms Stop: 02/28/20 15:58 Promethazine HCl 12.5 mg/ (Sodium Chloride) 50.5 mls @ 202 mls/hr IV Q6H PRN PRN Reason: Nausea And Vomiting Stop: 03/01/20 12:35 Dexamethasone Sodium Phosphate (8 mg/ Syringe) 2 mls @ 1 mls/min IV DAILY [facility] Stop: 03/04/20 08:59 Last Admin: 02/07/20 08:46 Dose: 1 mls/min Documented by: Lorazepam (Ativan) 0.25 mg in 0.5 mls @ 0.5 mls/min IV Q6H PRN PRN Reason: Anxiety Stop: 03/07/20 15:51 Influenza Virus Vaccine Quadrival (Flu Vaccine, Do Not Administer) 1 ea N/A PRN PRN PRN Reason: Notification Stop: 03/01/20 12:35 Insulin Aspart (Novolog Flexpen) 0 units SC ACHS [facility] Stop: 03/01/20 16:29 Last Admin: 02/07/20 21:28 Dose: 5 units Documented by: Insulin Glargine (Lantus Solostar Pen) 7 units SC HS [facility] Stop: 03/03/20 21:09 Last Admin: 02/07/20 21:28 Dose: 7 units Documented by: Levothyroxine Sodium (Synthroid) 25 mcg PO DAILYBB [facility] Stop: 02/29/20 06:29 Last Admin: 02/07/20 05:57 Dose: 25 mcg Documented by: Lorazepam (Ativan) 1 mg PO Q6H PRN PRN Reason: Anxiety/spasms Stop: 02/28/20 15:58 Lorazepam (Ativan) 0.5 mg PO Q8H PRN PRN Reason: Sedation/Anxiety Stop: 03/01/20 12:35 Last Admin: 02/06/20 15:59 Dose: 0.5 mg Documented by: Magnesium Hydroxide (Milk Of Magnesia) 30 ml PO DAILY PRN PRN Reason: Constipation Stop: 03/01/20 12:35 Last Admin: 02/02/20 09:44 Dose: 30 ml Documented by: Magnesium Oxide (Mag-Ox) 400 mg PO QAM [facility] Stop: 03/02/20 11:59 Last Admin: 02/07/20 08:47 Dose: 400 mg Documented by: Metoclopramide HCl (Reglan) 10 mg IV Q6H PRN PRN Reason: Nausea &/or Vomiting Stop: 03/01/20 12:35 Miscellaneous (Carbohydrates For Hypoglycemia) 15 - 30 gm PO UD PRN PRN Reason: Hypoglycemia Protocol Stop: 02/28/20 17:07 Naloxone HCl (Narcan) 0.1 mg IV Q5M PRN; Protocol PRN Reason: Oversedation/Resp Depression Stop: 03/01/20 12:35 Nitroglycerin (Nitrostat) 0.4 mg SL Q5M PRN PRN Reason: CHEST PAIN Stop: 02/28/20 16:11 Ondansetron HCl (Zofran) 4 mg IV Q6H PRN PRN Reason: Nausea And Vomiting Stop: 03/01/20 12:35 Ondansetron HCl (Zofran Odt) 4 mg PO Q6H PRN PRN Reason: Nausea Stop: 03/01/20 12:35 Oxycodone HCl (Oxycodone Hcl Ir 5 Mg Tab (Immediate Release)) 5 - 10 mg PO Q4H PRN PRN Reason: Moderate-Severe Pain Stop: 02/12/20 15:58 Last Admin: 02/07/20 16:54 Dose: 10 mg Documented by: Pantoprazole Sodium (Protonix) 40 mg PO QAM [facility] Stop: 02/29/20 08:59 Last Admin: 02/07/20 08:47 Dose: 40 mg Documented by: Pneumococcal Polyvalent Vaccine (Pneumococcal Vacc, Do Not Administer) 1 ea N/A PRN PRN PRN Reason: Notification Stop: 03/01/20 12:35 Senna/Docusate Sodium (Senokot S) 2 tab PO [facility] Stop: 03/01/20 20:59 Last Admin: 02/07/20 20:04 Dose: 2 tab Documented by: Sodium Biphosphate/Sodium Phosphate (Fleet Enema) 132 ml [facility] PRN PRN Reason: Constipation Stop: 03/01/20 12:35 Terazosin HCl (Hytrin) 2 mg PO [facility] Stop: 02/28/20 20:59 Last Admin: 02/07/20 20:05 Dose: 2 mg Documented by: Tramadol HCl (Tramadol Hcl 50 Mg Tablet) 50 - 100 mg PO Q4H PRN PRN Reason: Moderate-Severe Pain Stop: 02/28/20 15:58 Last Admin: 02/07/20 18:26 Dose: 100 mg Documented by:
[2020-02-07] MEDS: DOCUSATE SODIUM/SENNA 50/8.6MG TAB PO SCH (20:04)
[2020-02-07] MEDS: TERAZOSIN HCL 1 MG CAP PO SCH (20:05)
[2020-02-07] MEDS: ATORVASTATIN 40 MG TAB PO SCH (20:05)
[2020-02-07] MEDS: INSULIN GLARGINE SOLOSTAR 100 UNITS/ML 3 ML PEN SC SCH (21:28)
[2020-02-07] MEDS ORDERED: Nursing to Pharmacy Communication SCH (23:45)
[2020-02-08] MEDS: INSULIN ASPART 100 UNITS/ML 3 ML PEN SC SCH ×5 (00:08→21:10)
[2020-02-08] MEDS: OXYCODONE HCL IR 5 MG TAB (IMMEDIATE RELEASE) PO PRN ×6 (00:10→23:42)
[2020-02-08 05:32] LABS: Hemoglobin 10.6 g/dL (12.0-16.0); Mean Corpuscular Hemoglobin 31.9 pg (25-34); Mean Corpuscular Hgb Conc 32.1 g/dL (32-36); Mean Corpuscular Volume 99.4 fL (80-100); Mean Platelet Volume 8.5 fL (7.4-10.4); Nucleated RBC # (auto) 0.02 K/uL (0-0); Nucleated RBC % (auto) 0.3 %; Platelet Count 165 K/uL (130-400); RDW Standard Deviation 53.6 fL (36.4-46.3); Red Blood Count 3.32 M/uL (4.2-5.4); White Blood Count 6.81 K/uL (4.8-10.8)
[2020-02-08 05:59] LABS: BUN Creatinine Ratio 28.5 (10-20); Calcium 8.4 mg/dl (8.5-10.1); Creatinine Clr Calc Pharmacy 90.3 ml/min; Est GFR (African American) 96.6; Est GFR (Non-African American) 83.3; Magnesium 1.8 mg/dl (1.8-2.4); Phosphorus 3.1 mg/dl (2.5-4.9); Potassium 3.8 mmol/L (3.5-5.1)
[2020-02-08] MEDS: LEVOTHYROXINE SODIUM 25 MCG TABLET PO SCH (06:01)
[2020-02-08] MEDS: AMLODIPINE BESYLATE 5 MG TAB PO SCH (08:00)
[2020-02-08] MEDS: ASPIRIN 81 MG ECTAB PO SCH (08:00)
[2020-02-08] MEDS: FLUOXETINE HCL 20 MG CAP PO SCH (08:00)
[2020-02-08] MEDS: GABAPENTIN 300 MG CAP PO SCH ×3 (08:01→21:12)
[2020-02-08] MEDS: TRAMADOL HCL 50 MG TABLET PO PRN ×2 (08:01→12:35)
[2020-02-08] MEDS: PANTOprazole 40 MG TAB PO SCH (08:01)
[2020-02-08] MEDS: carvediloL 25 MG TAB PO SCH ×2 (08:01→21:11)
[2020-02-08] MEDS: MAGNESIUM OXIDE 400 MG TAB PO SCH (08:01)
[2020-02-08] MEDS: DOCUSATE SODIUM 100 MG CAP PO SCH ×2 (08:01→21:14)
[2020-02-08] MEDS: HydrALAZINE TAB 50 MG TAB PO SCH ×3 (08:01→21:11)
[2020-02-08] MEDS: HydrALAZINE HCL 20 MG/ML VIAL IV PRN ×2 (08:03→17:29)
[2020-02-08] MEDS: DEXAMETHASONE SOD PHOSPHATE 8 MG in SYRINGE 0 ML IV SCH (09:11)
[2020-02-08] MEDS ORDERED: Nursing to Pharmacy Communication SCH (10:15)
--- NOTE | 2020-02-08 10:30 | Orthopedic Progress Note ---
Date of Service February 08, 2020 Assessment & Plan (1) Sacral fracture: Admission and Anticipated Discharge Date Admission Date: January 29, 2020 At this time I reviewed the MRI findings with the patient. They confirm my suspicion of a sacral fracture. I am recommending a lumbar pelvic fusion by way of extending the rods to the pelvis with iliac bolts. This will provide some stabilization across the fracture site and hopefully we can begin mobilization of the patient with less pain. Risk benefits pros cons and alternatives were outlined detail. The patient would like to pursue surgery. We will make her n.p.o. after midnight and plan for surgery tomorrow. Subjective Patient continues to have severe lumbosacral back pain. Physical Exam Physical Exam: Patient is neurologically intact but has marked difficulty with movement in bed. Results & Data ([facility]) Vital Signs (Past 12 Hours) Vital Signs Temp Pulse Resp BP Pulse Ox 02/08/20 09:21 173/88 H 02/08/20 07:36 36.5 C 58 L 20 207/80 H 98 02/07/20 22:59 36.4 C L 59 L 15 167/81 H 96
--- NOTE | 2020-02-08 10:35 | Hospitalist Progress Note ---
Date of Service February 08, 2020 Assessment & Plan (1) Postoperative back pain: L1 compression fracture Lumbar seroma Sacral fracture S/P L3-S1 decompression and fusion on 01/[address] --Lumbar MRI:Interval L2-S1 spinal decompression and fusion. Interval devel opment of an 8.8 x 4.5 x 13.4 cm midline posterior subcutaneous fluid collection which is felt to be postsurgical. Persistent severe T12 compression fracture with 4 mm of retropulsion but no evidence of significant canal compromise. Interval development of a superior endplate L1 compression fracture with 30% loss in height. Interval development of subtle S2 marrow edema suggesting a insufficiency fracture. --Appreciate Ortho input and recommendation --Status post L1 kyphoplasty and I&D of lumbar seroma on 01/31/2020 Continue empiric antibiotics with vancomycin, Zosyn Complains to have more pain which is constant with some radiation in the legs without any fever and/or chills or headache Has been advised bedrest for now by orthopedic surgeon and Decadron has been started Still has severe pain and is not controlled with anti-inflammatory lumbar spine CT to evaluate it further as per Ortho continue current medications including Decadron, Toradol and as needed IV Dilaudid Repeat CT of lumbar spine did not show any significant abnormality Has been getting physical therapy and pain medications Pain is not yet reasonably controlled to be discharged MRI ordered by Dr. Street to further evaluate (02/06) Dr. Street reviewed the MRI findings with the patient, confirmed suspicion of a sacral fracture. Recommending a lumbar pelvic fusion by way of extending the rods to the pelvis with iliac bolts. This will provide some stabilization across the fracture site and hopefully then can begin mobilization of the patient with less pain. Plan for surgery tomorrow 02/09/20. Urinary incontinence Had this problem before admission Seems worse following admission Complicated by UTI-has been receiving Augmentin to cover UTI and surgery site.Finished Abx course on 02/05. Advised to have outpatient urology appointment as soon as possible on discharge Will not put any medications for now (2) Leukocytosis: Urinary tract infection--POA Urine culture E. coli and is pansensitive Continued Zosyn as above and changed to oral antibiotic Augmentin. Finished Abx course on 02/05. White cell count has been normalized Surgical site infection has been ruled out Changed antibiotic to oral Augmentin to cover UTI and surgical wound at the back Antibiotics continued until 02/05 (from 01/28) No increase in white count We will repeat CBC and PRP tomorrow-remains stable as of 02/06/2020 (3) Hypomagnesemia: Remains low at 1.4 Will supplement-magnesium remains low at 1.5 We will supplement more-we will recheck Magnesium level is normalized and remains around 1.7 (4) Hypokalemia: Replace electrolytes as needed monitor -normalized (5) Diabetes mellitus, type II: Hgb A1c 6.4 12/2019 Hold oral agents Utilize NovoLog per protocol while hospitalized (6) HTN (hypertension): BP elevated likely situational secondary to pain Continue amlodipine, carvedilol, hydralazine Pain control Remains on the upper side at 163/82 this morning Blood pressure remains on the upper side with systolic at 162/51 as of this morning Blood pressure remains elevated increased the dose of hydralazine to 50 mg 3 times daily Blood pressure remains upper side-will not start any other medications or increase doses for now Observe (7) CAD (coronary artery disease): Stable Continue aspirin, statin, beta-pamela (8) Rheumatoid arthritis: Previously on Plaquenil and methotrexate Currently not taking meds No acute arthritis involving any joints (9) DVT prophylaxis: Teds/SCDs as per spine Ortho Disposition As per Primary Team Admission and Anticipated Discharge Date Admission Date: January 29, 2020 Subjective Patient continues to have severe lumbosacral back pain. Currently lying in bed in no acute distress, granddaughter at the bedside. Denies any fevers, chills, chest pain, shortness of breath, abdominal pain, nausea or vomiting. Dr. Street reviewed the MRI findings with the patient, confirmed suspicion of a sacral fracture. Recommending a lumbar pelvic fusion by way of extending the rods to the pelvis with iliac bolts. This will provide some stabilization across the fracture site and hopefully then can begin mobilization of the patient with less pain. Plan for surgery tomorrow. Review of Systems Review of Systems: All systems reviewed & are unremarkable except as noted in HPI & below All systems reviewed and are unremarkable except as noted below Constitutional: no fever and no chills Respiratory: no cough and no dyspnea Cardiovascular: no chest pain and no palpitations Gastrointestinal: no abdominal pain, no nausea and no vomiting Genitourinary: + urinary incontinence (Especially with standing and ambulating-worsening) Musculoskeletal: + back pain (Increasing back pain with radiation to legs) Status post L1 kyphoplasty and drainage of lumbar seroma-complains of severe back pain with radiation to right lower extremity Physical Exam Physical Exam: Physical Exam: Lying in bed with some pain involving the lower back with radiation to legs Constitutional: well developed, well nourished, + mild acute distress (Minimal distress due to back pain) and + obese; not ill appearing Eyes: PERRL, conjunctivae normal, anicteric sclerae ENMT: external ear and nose normal, oropharynx normal Neck: trachea midline, no thyromegaly Respiratory: normal respiratory effort; no respiratory distress Auscultation: lungs clear to auscultation bilaterally Cardiovascular: Rate/Rhythm: regular rate and regular rhythm Heart Sounds: no murmur Gastrointestinal (Abdomen): Inspection/Auscultation: abdomen normal to inspection and normal bowel sounds; abdomen not distended Percussion/Palpation: abdomen soft; abdomen nontender Musculoskeletal: + back pain with radiation to the legs Neurologic: moves all extremities; no focal motor deficits Remains weak and lethargic Results & Data Results & Data ([facility]) Vital Signs (Past 12 Hours) Vital Signs Temp Pulse Resp BP Pulse Ox 02/08/20 09:21 173/88 H 02/08/20 07:36 36.5 C 58 L 20 207/80 H 98 02/07/20 22:59 36.4 C L 59 L 15 167/81 H 96 Laboratory Results 02/08/20 02/08/20 02/08/20 Range/Units Unknown Unknown 06:02 WBC (4.8-10.8) K/uL RBC (4.2-5.4) M/uL Hgb (12.0-16.0) g/dL Hct (37-47) % MCV (80-100) fL MCH (25-34) pg MCHC (32-36) g/dL RDW Std Deviation (36.4-46.3) fL RDW Coeff of Farheen (11.5-14.5) % Plt Count (130-400) K/uL MPV (7.4-10.4) fL Absolute Nucleated RBC (0-0) K/uL Nucleated RBC % (auto) % Sodium (136-145) mmol/L Potassium (3.5-5.1) mmol/L Chloride (98-107) mmol/L Carbon Dioxide (21-32) mmol/L Anion Gap (3-11) BUN (7-18) mg/dl Creatinine (0.6-1.2) mg/dl Est Cr Clr Drug Dosing ml/min Est GFR ( Amer) Est GFR (Non-Af Amer) BUN/Creatinine Ratio (10-20) Glucose (70-99) mg/dl POC Glucose 121 H (70-99) mg/dl Calcium (8.5-10.1) mg/dl Phosphorus (2.5-4.9) mg/dl Magnesium (1.8-2.4) mg/dl COVID-19 Eval Order Covid19 Done at [facility] COVID-19 PCR NEGATIVE (Negative) 02/08/20 02/08/20 02/08/20 Range/Units 05:21 05:21 00:07 WBC 6.81 (4.8-10.8) K/uL RBC 3.32 L (4.2-5.4) M/uL Hgb 10.6 L (12.0-16.0) g/dL Hct 33.0 L (37-47) % MCV 99.4 (80-100) fL MCH 31.9 (25-34) pg MCHC 32.1 (32-36) g/dL RDW Std Deviation 53.6 H (36.4-46.3) fL RDW Coeff of Farheen 15.0 H (11.5-14.5) % Plt Count 165 (130-400) K/uL MPV 8.5 (7.4-10.4) fL Absolute Nucleated RBC 0.02 H (0-0) K/uL Nucleated RBC % (auto) 0.3 % Sodium 139 (136-145) mmol/L Potassium 3.8 (3.5-5.1) mmol/L Chloride 106 (98-107) mmol/L Carbon Dioxide 26 (21-32) mmol/L Anion Gap 7.0 (3-11) BUN 20 H (7-18) mg/dl Creatinine 0.71 (0.6-1.2) mg/dl Est Cr Clr Drug Dosing 90.3 ml/min Est GFR ( Amer) 96.6 Est GFR (Non-Af Amer) 83.3 BUN/Creatinine Ratio 28.5 H (10-20) Glucose 123 H (70-99) mg/dl POC Glucose 169 H (70-99) mg/dl Calcium 8.4 L (8.5-10.1) mg/dl Phosphorus 3.1 (2.5-4.9) mg/dl Magnesium 1.8 (1.8-2.4) mg/dl COVID-19 Eval Order COVID-19 PCR (Negative) 02/07/20 02/07/20 02/07/20 Range/Units 20:37 16:54 12:24 WBC (4.8-10.8) K/uL RBC (4.2-5.4) M/uL Hgb (12.0-16.0) g/dL Hct (37-47) % MCV (80-100) fL MCH (25-34) pg MCHC (32-36) g/dL RDW Std Deviation (36.4-46.3) fL RDW Coeff of Farheen (11.5-14.5) % Plt Count (130-400) K/uL MPV (7.4-10.4) fL Absolute Nucleated RBC (0-0) K/uL Nucleated RBC % (auto) % Sodium (136-145) mmol/L Potassium (3.5-5.1) mmol/L Chloride (98-107) mmol/L Carbon Dioxide (21-32) mmol/L Anion Gap (3-11) BUN (7-18) mg/dl Creatinine (0.6-1.2) mg/dl Est Cr Clr Drug Dosing ml/min Est GFR ( Amer) Est GFR (Non-Af Amer) BUN/Creatinine Ratio (10-20) Glucose (70-99) mg/dl POC Glucose 254 H 204 H 176 H (70-99) mg/dl Calcium (8.5-10.1) mg/dl Phosphorus (2.5-4.9) mg/dl Magnesium (1.8-2.4) mg/dl COVID-19 Eval Order COVID-19 PCR (Negative) Medications Administered Current Inpatient Medications Acetaminophen (Tylenol) 1,000 mg PO Q8H PRN PRN Reason: MILD Pain Scale 1,2,3 & Pre PT Stop: 03/01/20 12:35 Last Admin: 02/06/20 15:27 Dose: 1,000 mg Documented by: Al Hydrox/Mg Hydrox/Simethicone (Maalox) 30 ml PO Q6H PRN PRN Reason: Dyspepsia Stop: 03/01/20 12:35 Amlodipine Besylate (Norvasc) 5 mg PO QAM [facility] Stop: 02/29/20 08:59 Last Admin: 02/08/20 08:00 Dose: 5 mg Documented by: Aspirin (Ecotrin Ectab) 81 mg PO QAM [facility] Stop: 02/29/20 08:59 Last Admin: 02/08/20 08:00 Dose: 81 mg Documented by: Atorvastatin Calcium (Lipitor) 40 mg PO HS [facility] Stop: 02/28/20 20:59 Last Admin: 02/07/20 20:05 Dose: 40 mg Documented by: Bisacodyl (Dulcolax) 10 mg HI DAILY PRN PRN Reason: Constipation Stop: 03/01/20 12:35 Carvedilol (Coreg) 25 mg PO BID [facility] Stop: 03/03/20 20:59 Last Admin: 02/08/20 08:01 Dose: Not Given Documented by: Dextrose (Dextrose 50%) 25 - 50 ml IV UD PRN; Protocol PRN Reason: Hypoglycemia Protocol Stop: 02/28/20 17:07 Diphenhydramine HCl (Benadryl Capsule) 25 mg PO Q6H PRN PRN Reason: Allergic Rhinitis/Insomnia Stop: 03/01/20 12:35 Docusate Sodium (Colace) 100 mg PO BID [facility] Stop: 02/28/20 20:59 Last Admin: 02/08/20 08:01 Dose: 100 mg Documented by: Famotidine (Pepcid) 20 mg PO Q12H PRN PRN Reason: Dyspepsia Stop: 03/01/20 12:35 Fluoxetine HCl (Prozac) 40 mg PO QAM [facility] Stop: 02/29/20 08:59 Last Admin: 02/08/20 08:00 Dose: 40 mg Documented by: Furosemide (Lasix) 20 mg PO DAILY PRN PRN Reason: Weight Gain Stop: 02/28/20 15:58 Gabapentin (Neurontin) 300 mg PO TID [facility] Stop: 02/28/20 20:59 Last Admin: 02/08/20 08:01 Dose: 300 mg Documented by: Glucagon (Glucagen) 1 mg SQ UD PRN; Protocol PRN Reason: Hypoglycemia Protocol Stop: 02/28/20 17:07 Glucose (Dex4 Glucose) 4 - 8 tabs PO UD PRN; Protocol PRN Reason: Hypoglycemia Protocol Stop: 02/28/20 17:07 Glucose (Glucose 40%) 15 - 30 gm PO UD PRN; Protocol PRN Reason: Hypoglycemia Protocol Stop: 02/28/20 17:07 Hydralazine HCl (Hydralazine Hcl) 10 mg IV Q6H PRN PRN Reason: SBP > 170 Stop: 03/03/20 17:14 Last Admin: 02/08/20 08:03 Dose: 10 mg Documented by: Hydralazine HCl (Apresoline) 50 mg PO TID [facility] Stop: 03/06/20 13:59 Last Admin: 02/08/20 08:01 Dose: 50 mg Documented by: Hydromorphone HCl (Dilaudid) 0.5 mg IV Q3H PRN PRN Reason: moderate pain (scale 4-6) Stop: 02/12/20 15:58 Last Admin: 02/02/20 06:26 Dose: 0.5 mg Documented by: Hydromorphone HCl (Hydromorphone Inj 1 Mg/Ml Syringe) 1 mg IV Q3H PRN PRN Reason: severe pain (scale 7-10) Stop: 02/12/20 15:58 Last Admin: 02/07/20 14:21 Dose: 1 mg Documented by: Hydroxyzine HCl (Vistaril) 25 mg PO Q8H PRN PRN Reason: Anxiety Stop: 03/01/20 12:35 Lorazepam (Ativan) 1 mg in 2 mls @ 2 mls/min IV Q6H PRN PRN Reason: Anxiety/Spasms Stop: 02/28/20 15:58 Promethazine HCl 12.5 mg/ (Sodium Chloride) 50.5 mls @ 202 mls/hr IV Q6H PRN PRN Reason: Nausea And Vomiting Stop: 03/01/20 12:35 Dexamethasone Sodium Phosphate (8 mg/ Syringe) 2 mls @ 1 mls/min IV DAILY [facility] Stop: 03/04/20 08:59 Last Admin: 02/08/20 09:11 Dose: 1 mls/min Documented by: Lorazepam (Ativan) 0.25 mg in 0.5 mls @ 0.5 mls/min IV Q6H PRN PRN Reason: Anxiety Stop: 03/07/20 15:51 Influenza Virus Vaccine Quadrival (Flu Vaccine, Do Not Administer) 1 ea N/A PRN PRN PRN Reason: Notification Stop: 03/01/20 12:35 Insulin Aspart (Insulin Aspart 100 Units/Ml 3 Ml Pen) 0 units SC ACHS [facility] Stop: 03/09/20 11:29 Insulin Glargine (Lantus Solostar Pen) 7 units SC HS [facility] Stop: 03/03/20 21:09 Last Admin: 02/07/20 21:28 Dose: 7 units Documented by: Levothyroxine Sodium (Synthroid) 25 mcg PO DAILYBB [facility] Stop: 02/29/20 06:29 Last Admin: 02/08/20 06:01 Dose: 25 mcg Documented by: Lorazepam (Ativan) 1 mg PO Q6H PRN PRN Reason: Anxiety/spasms Stop: 02/28/20 15:58 Lorazepam (Ativan) 0.5 mg PO Q8H PRN PRN Reason: Sedation/Anxiety Stop: 03/01/20 12:35 Last Admin: 02/06/20 15:59 Dose: 0.5 mg Documented by: Magnesium Hydroxide (Milk Of Magnesia) 30 ml PO DAILY PRN PRN Reason: Constipation Stop: 03/01/20 12:35 Last Admin: 02/02/20 09:44 Dose: 30 ml Documented by: Magnesium Oxide (Mag-Ox) 400 mg PO QAM [facility] Stop: 03/02/20 11:59 Last Admin: 02/08/20 08:01 Dose: 400 mg Documented by: Metoclopramide HCl (Reglan) 10 mg IV Q6H PRN PRN Reason: Nausea &/or Vomiting Stop: 03/01/20 12:35 Miscellaneous (Carbohydrates For Hypoglycemia) 15 - 30 gm PO UD PRN PRN Reason: Hypoglycemia Protocol Stop: 02/28/20 17:07 Naloxone HCl (Narcan) 0.1 mg IV Q5M PRN; Protocol PRN Reason: Oversedation/Resp Depression Stop: 03/01/20 12:35 Nitroglycerin (Nitrostat) 0.4 mg SL Q5M PRN PRN Reason: CHEST PAIN Stop: 02/28/20 16:11 Ondansetron HCl (Zofran) 4 mg IV Q6H PRN PRN Reason: Nausea And Vomiting Stop: 03/01/20 12:35 Ondansetron HCl (Zofran Odt) 4 mg PO Q6H PRN PRN Reason: Nausea Stop: 03/01/20 12:35 Oxycodone HCl (Oxycodone Hcl Ir 5 Mg Tab (Immediate Release)) 5 - 10 mg PO Q4H PRN PRN Reason: Moderate-Severe Pain Stop: 02/12/20 15:58 Last Admin: 02/08/20 06:01 Dose: 10 mg Documented by: Pantoprazole Sodium (Protonix) 40 mg PO [facility] Stop: 02/29/20 08:59 Last Admin: 02/08/20 08:01 Dose: 40 mg Documented by: Pneumococcal Polyvalent Vaccine (Pneumococcal Vacc, Do Not Administer) 1 ea N/A PRN PRN PRN Reason: Notification Stop: 03/01/20 12:35 Senna/Docusate Sodium (Senokot S) 2 tab PO [facility] Stop: 03/01/20 20:59 Last Admin: 02/07/20 20:04 Dose: 2 tab Documented by: Sodium Biphosphate/Sodium Phosphate (Fleet Enema) 132 ml HI ONE PRN PRN Reason: Constipation Stop: 03/01/20 12:35 Terazosin HCl (Hytrin) 2 mg PO [facility] Stop: 02/28/20 20:59 Last Admin: 02/07/20 20:05 Dose: 2 mg Documented by: Tramadol HCl (Tramadol Hcl 50 Mg Tablet) 50 - 100 mg PO Q4H PRN PRN Reason: Moderate-Severe Pain Stop: 02/28/20 15:58 Last Admin: 02/08/20 08:01 Dose: 100 mg Documented by:
[2020-02-08] MEDS ORDERED: MAGNESIUM SULFATE / D5W 1 GM/100 ML BAG IV ONE (11:00)
[2020-02-08] MEDS ORDERED: ACETAMINOPHEN 500 MG TAB PO ONE (19:18)
[2020-02-08] MEDS: INSULIN GLARGINE SOLOSTAR 100 UNITS/ML 3 ML PEN SC SCH (21:11)
[2020-02-08] MEDS: TERAZOSIN HCL 1 MG CAP PO SCH (21:12)
[2020-02-08] MEDS: ATORVASTATIN 40 MG TAB PO SCH (21:12)
[2020-02-08] MEDS: DOCUSATE SODIUM/SENNA 50/8.6MG TAB PO SCH (21:14)
[2020-02-09] MEDS: OXYCODONE HCL IR 5 MG TAB (IMMEDIATE RELEASE) PO PRN ×3 (05:51→19:24)
[2020-02-09] MEDS: LEVOTHYROXINE SODIUM 25 MCG TABLET PO SCH (05:51)
[2020-02-09] MEDS ORDERED: Nursing to Pharmacy Communication SCH ×2 (06:00→22:30)
[2020-02-09] MEDS: INSULIN ASPART 100 UNITS/ML 3 ML PEN SC SCH ×5 (06:34→23:57)
[2020-02-09 06:51] LABS: BUN Creatinine Ratio 27.3 (10-20); Calcium 8.3 mg/dl (8.5-10.1); Creatinine Clr Calc Pharmacy 92.9 ml/min; Est GFR (African American) 98.7; Est GFR (Non-African American) 85.2; Potassium 3.9 mmol/L (3.5-5.1)
[2020-02-09] MEDS: AMLODIPINE BESYLATE 5 MG TAB PO SCH (08:04)
[2020-02-09] MEDS: PANTOprazole 40 MG TAB PO SCH (08:04)
[2020-02-09] MEDS: MAGNESIUM OXIDE 400 MG TAB PO SCH (08:04)
[2020-02-09] MEDS: GABAPENTIN 300 MG CAP PO SCH ×3 (08:04→21:26)
[2020-02-09] MEDS: carvediloL 25 MG TAB PO SCH ×2 (08:04→23:45)
[2020-02-09] MEDS: ASPIRIN 81 MG ECTAB PO SCH (08:04)
[2020-02-09] MEDS: DOCUSATE SODIUM 100 MG CAP PO SCH ×2 (08:04→21:25)
[2020-02-09] MEDS: FLUOXETINE HCL 20 MG CAP PO SCH (08:04)
[2020-02-09] MEDS: HydrALAZINE TAB 50 MG TAB PO SCH ×3 (08:04→22:17)
[2020-02-09] MEDS: HydrALAZINE HCL 20 MG/ML VIAL IV PRN (08:05)
[2020-02-09] MEDS: DEXAMETHASONE SOD PHOSPHATE 8 MG in SYRINGE 0 ML IV SCH (08:05)
--- NOTE | 2020-02-09 09:05 | Hospitalist Progress Note ---
Date of Service February 09, 2020 Assessment & Plan (1) Postoperative back pain: L1 compression fracture Lumbar seroma Sacral fracture S/P L3-S1 decompression and fusion on 01/[address] --Lumbar MRI:Interval L2-S1 spinal decompression and fusion. Interval devel opment of an 8.8 x 4.5 x 13.4 cm midline posterior subcutaneous fluid collection which is felt to be postsurgical. Persistent severe T12 compression fracture with 4 mm of retropulsion but no evidence of significant canal compromise. Interval development of a superior endplate L1 compression fracture with 30% loss in height. Interval development of subtle S2 marrow edema suggesting a insufficiency fracture. --Appreciate Ortho input and recommendation --Status post L1 kyphoplasty and I&D of lumbar seroma on 01/31/2020 Continue empiric antibiotics with vancomycin, Zosyn Complains to have more pain which is constant with some radiation in the legs without any fever and/or chills or headache Has been advised bedrest for now by orthopedic surgeon and Decadron has been started Still has severe pain and is not controlled with anti-inflammatory lumbar spine CT to evaluate it further as per Ortho continue current medications including Decadron, Toradol and as needed IV Dilaudid Repeat CT of lumbar spine did not show any significant abnormality Has been getting physical therapy and pain medications Pain is not yet reasonably controlled to be discharged MRI ordered by Dr. Street to further evaluate (02/06) Dr. Street reviewed the MRI findings with the patient, confirmed suspicion of a sacral fracture. Recommending a lumbar pelvic fusion by way of extending the rods to the pelvis with iliac bolts. This will provide some stabilization across the fracture site and hopefully then can begin mobilization of the patient with less pain. Patient just underwent above-mentioned procedure 02/08, tolerated well, complains of some back pain Urinary incontinence Had this problem before admission Seems worse following admission Complicated by UTI-has been receiving Augmentin to cover UTI and surgery site.Finished Abx course on 02/05. Advised to have outpatient urology appointment as soon as possible on discharge Will not put any medications for now (2) Leukocytosis: Urinary tract infection--POA Urine culture E. coli and is pansensitive Continued Zosyn as above and changed to oral antibiotic Augmentin. Finished Abx course on 02/05. White cell count has been normalized Surgical site infection has been ruled out Changed antibiotic to oral Augmentin to cover UTI and surgical wound at the back Antibiotics continued until 02/05 (from 01/28) No increase in white count remains stable as of 02/06/2020 (3) Hypomagnesemia: Remains low at 1.4 Will supplement-magnesium remains low at 1.5 We will supplement more-we will recheck Magnesium level is normalized and remains around 1.7 (4) Hypokalemia: Replace electrolytes as needed monitor -normalized (5) Diabetes mellitus, type II: Hgb A1c 6.4 12/2019 Hold oral agents Utilize NovoLog per protocol while hospitalized (6) HTN (hypertension): BP elevated likely situational secondary to pain Continue amlodipine, carvedilol, hydralazine Pain control Remains on the upper side at 163/82 this morning Blood pressure remains on the upper side with systolic at 162/51 as of this morning Blood pressure remains elevated increased the dose of hydralazine to 50 mg 3 times daily Blood pressure remains upper side-will not start any other medications or increase doses for now Observe (7) CAD (coronary artery disease): Stable Continue aspirin, statin, beta-pamela (8) Rheumatoid arthritis: Previously on Plaquenil and methotrexate Currently not taking meds No acute arthritis involving any joints (9) DVT prophylaxis: Teds/SCDs as per spine Ortho Disposition As per Primary Team Admission and Anticipated Discharge Date Admission Date: January 29, 2020 Subjective She is currently lying in bed, just underwent pelvic fusion by Dr. Street, she is complaining of mild back pain, however not in acute distress. Is alert and oriented, answering questions appropriately, patient's is at bedside. Denies any fevers, chills, chest pain, shortness of breath, abdominal pain, nausea or vomiting. Review of Systems Review of Systems: All systems reviewed & are unremarkable except as noted in HPI & below Constitutional: no fever and no chills Respiratory: no cough and no dyspnea Cardiovascular: no chest pain and no palpitations Gastrointestinal: no abdominal pain, no nausea and no vomiting Musculoskeletal: + back pain (post surgery) Physical Exam Physical Exam: Physical Exam: Lying in bed with some pain involving the lower back (now post-surg.) Constitutional: well developed, well nourished, + mild acute distress (Minimal distress due to back pain) and + obese; not ill appearing Eyes: PERRL, conjunctivae normal, anicteric sclerae ENMT: external ear and nose normal, oropharynx normal Neck: trachea midline, no thyromegaly Respiratory: normal respiratory effort; no respiratory distress Auscultation: lungs clear to auscultation bilaterally Cardiovascular: Rate/Rhythm: regular rate and regular rhythm Heart Sounds: no murmur Gastrointestinal (Abdomen): Inspection/Auscultation: abdomen normal to inspection and normal bowel sounds; abdomen not distended Percussion/Palpation: abdomen soft; abdomen nontender Musculoskeletal: + back pain Neurologic: moves all extremities; no focal motor deficits Remains weak and lethargic Results & Data Results & Data ([facility]) Vital Signs (Past 12 Hours) Vital Signs Temp Pulse Resp BP Pulse Ox 02/09/20 07:50 60 192/104 H 02/09/20 07:00 36.5 C 58 L 16 201/71 H 97 02/08/20 23:32 36.6 C 65 16 137/69 98 02/08/20 21:06 84 16 172/73 H 96 Laboratory Results 02/09/20 02/09/20 02/08/20 Range/Units 05:56 05:40 Unknown Sodium 139 (136-145) mmol/L Potassium 3.9 (3.5-5.1) mmol/L Chloride 106 (98-107) mmol/L Carbon Dioxide 29 (21-32) mmol/L Anion Gap 4.0 (3-11) BUN 19 H (7-18) mg/dl Creatinine 0.69 (0.6-1.2) mg/dl Est Cr Clr Drug Dosing 92.9 ml/min Est GFR ( Amer) 98.7 Est GFR (Non-Af Amer) 85.2 BUN/Creatinine Ratio 27.3 H (10-20) Glucose 127 H (70-99) mg/dl POC Glucose 139 H (70-99) mg/dl Calcium 8.3 L (8.5-10.1) mg/dl COVID-19 Eval Order COVID-19 PCR NEGATIVE (Negative) Blood Type Antibody Screen Antibody Identification Antibody ID Comment Antigen Identification Crossmatch 02/08/20 02/08/20 02/08/20 Range/Units Unknown 20:31 17:08 Sodium (136-145) mmol/L Potassium (3.5-5.1) mmol/L Chloride (98-107) mmol/L Carbon Dioxide (21-32) mmol/L Anion Gap (3-11) BUN (7-18) mg/dl Creatinine (0.6-1.2) mg/dl Est Cr Clr Drug Dosing ml/min Est GFR ( Amer) Est GFR (Non-Af Amer) BUN/Creatinine Ratio (10-20) Glucose (70-99) mg/dl POC Glucose 256 H 270 H (70-99) mg/dl Calcium (8.5-10.1) mg/dl COVID-19 Eval Order Covid19 Done at [facility] COVID-19 PCR (Negative) Blood Type Antibody Screen Antibody Identification Antibody ID Comment Antigen Identification Crossmatch 02/08/20 02/08/20 02/08/20 Range/Units 15:17 13:50 12:05 Sodium (136-145) mmol/L Potassium (3.5-5.1) mmol/L Chloride (98-107) mmol/L Carbon Dioxide (21-32) mmol/L Anion Gap (3-11) BUN (7-18) mg/dl Creatinine (0.6-1.2) mg/dl Est Cr Clr Drug Dosing ml/min Est GFR ( Amer) Est GFR (Non-Af Amer) BUN/Creatinine Ratio (10-20) Glucose (70-99) mg/dl POC Glucose 246 H 273 H (70-99) mg/dl Calcium (8.5-10.1) mg/dl COVID-19 Eval Order COVID-19 PCR (Negative) Blood Type O Positive Antibody Screen POSITIVE A Antibody Identification Anti-K Antibody ID Comment Pending Antigen Identification E Antigen - NEGATIVE Crossmatch See Detail 02/08/20 Range/Units 11:27 Sodium (136-145) mmol/L Potassium (3.5-5.1) mmol/L Chloride (98-107) mmol/L Carbon Dioxide (21-32) mmol/L Anion Gap (3-11) BUN (7-18) mg/dl Creatinine (0.6-1.2) mg/dl Est Cr Clr Drug Dosing ml/min Est GFR ( Amer) Est GFR (Non-Af Amer) BUN/Creatinine Ratio (10-20) Glucose (70-99) mg/dl POC Glucose 224 H (70-99) mg/dl Calcium (8.5-10.1) mg/dl COVID-19 Eval Order COVID-19 PCR (Negative) Blood Type Antibody Screen Antibody Identification Antibody ID Comment Antigen Identification Crossmatch Medications Administered Current Inpatient Medications Acetaminophen (Tylenol) 1,000 mg PO Q8H PRN PRN Reason: MILD Pain Scale 1,2,3 & Pre PT Stop: 03/01/20 12:35 Last Admin: 02/06/20 15:27 Dose: 1,000 mg Documented by: Al Hydrox/Mg Hydrox/Simethicone (Maalox) 30 ml PO Q6H PRN PRN Reason: Dyspepsia Stop: 03/01/20 12:35 A[facility]od[facility]) [facility] [place]: 02/29/20 08:59 Last Admin: 02/09/20 08:04 Dose: 5 mg Documented by: Aspirin (Ecotrin Ectab) 81 mg PO QAM [facility] Stop: 02/29/20 08:59 Last Admin: 02/09/20 08:04 Dose: 81 mg Documented by: Atorvastatin Calcium (Lipitor) 40 mg PO HS [facility] Stop: 02/28/20 20:59 Last Admin: 02/08/20 21:12 Dose: 40 mg Documented by: Bisacodyl (Dulcolax) 10 mg ME DAILY PRN PRN Reason: Constipation Stop: 03/01/20 12:35 Carvedilol (Coreg) 25 mg PO BID [facility] Stop: 03/03/20 20:59 Last Admin: 02/09/20 08:04 Dose: Not Given Documented by: Dextrose (Dextrose 50%) 25 - 50 ml IV UD PRN; Protocol PRN Reason: Hypoglycemia Protocol Stop: 02/28/20 17:07 Diphenhydramine HCl (Benadryl Capsule) 25 mg PO Q6H PRN PRN Reason: Allergic Rhinitis/Insomnia Stop: 03/01/20 12:35 Docusate Sodium (Colace) 100 mg PO BID [facility] Stop: 02/28/20 20:59 Last Admin: 02/09/20 08:04 Dose: 100 mg Documented by: Famotidine (Pepcid) 20 mg PO Q12H PRN PRN Reason: Dyspepsia Stop: 03/01/20 12:35 Fluoxetine HCl (Prozac) [facility] [place]: 02/29/20 08:59 Last Admin: 02/09/20 08:04 Dose: 40 mg Documented by: Furosemide (Lasix) 20 mg PO DAILY PRN PRN Reason: Weight Gain Stop: 02/28/20 15:58 Gabapentin (Neurontin) 300 mg PO TID [facility] Stop: 02/28/20 20:59 Last Admin: 02/09/20 08:04 Dose: 300 mg Documented by: Glucagon (Glucagen) 1 mg SQ UD PRN; Protocol PRN Reason: Hypoglycemia Protocol Stop: 02/28/20 17:07 Glucose (Dex4 Glucose) 4 - 8 tabs PO UD PRN; Protocol PRN Reason: Hypoglycemia Protocol Stop: 02/28/20 17:07 Glucose (Glucose 40%) 15 - 30 gm PO UD PRN; Protocol PRN Reason: Hypoglycemia Protocol Stop: 02/28/20 17:07 Hydralazine HCl (Hydralazine Hcl) 10 mg IV Q6H PRN PRN Reason: SBP > 170 Stop: 03/03/20 17:14 Last Admin: 02/09/20 08:05 Dose: 10 mg Documented by: Hydralazine HCl (Apresoline) 50 mg PO TID [facility] Stop: 03/06/20 13:59 Last Admin: 02/09/20 08:04 Dose: 50 mg Documented by: Hydromorphone HCl (Dilaudid) 0.5 mg IV Q3H PRN PRN Reason: moderate pain (scale 4-6) Stop: 02/12/20 15:58 Last Admin: 02/02/20 06:26 Dose: 0.5 mg Documented by: Hydromorphone HCl (Hydromorphone Inj 1 Mg/Ml Syringe) 1 mg IV Q3H PRN PRN Reason: severe pain (scale 7-10) Stop: 02/12/20 15:58 Last Admin: 02/07/20 14:21 Dose: 1 mg Documented by: Hydroxyzine HCl (Vistaril) 25 mg PO Q8H PRN PRN Reason: Anxiety Stop: 03/01/20 12:35 Lorazepam (Ativan) 1 mg in 2 mls @ 2 mls/min IV Q6H PRN PRN Reason: Anxiety/Spasms Stop: 02/28/20 15:58 Promethazine HCl 12.5 mg/ (Sodium Chloride) 50.5 mls @ 202 mls/hr IV Q6H PRN PRN Reason: Nausea And Vomiting Stop: 03/01/20 12:35 Dexamethasone Sodium Phosphate (8 mg/ Syringe) 2 mls @ 1 mls/min IV DAILY [facility] Stop: 03/04/20 08:59 Last Admin: 02/09/20 08:05 Dose: 1 mls/min Documented by: Lorazepam (Ativan) 0.25 mg in 0.5 mls @ 0.5 mls/min IV Q6H PRN PRN Reason: Anxiety Stop: 03/07/20 15:51 Influenza Virus Vaccine Quadrival (Flu Vaccine, Do Not Administer) 1 ea N/A PRN PRN PRN Reason: Notification Stop: 03/01/20 12:35 Insulin Aspart (Insulin Aspart 100 Units/Ml 3 Ml Pen) 0 units SC Q6 [facility] Stop: 03/10/20 06:14 Last Admin: 02/09/20 06:34 Dose: Not Given Documented by: Insulin Glargine (Lantus Solostar Pen) 7 units SC HS [facility] Stop: 03/03/20 21:09 Last Admin: 02/08/20 21:11 Dose: 7 units Documented by: Levothyroxine Sodium (Synthroid) 25 mcg PO DAILYBB [facility] Stop: 02/29/20 06:29 Last Admin: 02/09/20 05:51 Dose: 25 mcg Documented by: Lorazepam (Ativan) 1 mg PO Q6H PRN PRN Reason: Anxiety/spasms Stop: 02/28/20 15:58 Lorazepam (Ativan) 0.5 mg PO Q8H PRN PRN Reason: Sedation/Anxiety Stop: 03/01/20 12:35 Last Admin: 02/06/20 15:59 Dose: 0.5 mg Documented by: Magnesium Hydroxide (Milk Of Magnesia) 30 ml PO DAILY PRN PRN Reason: Constipation Stop: 03/01/20 12:35 Last Admin: 02/02/20 09:44 Dose: 30 ml Documented by: Magnesium Oxide (Mag-Ox) 400 mg PO QAM [facility] Stop: 03/02/20 11:59 Last Admin: 02/09/20 08:04 Dose: 400 mg Documented by: Metoclopramide HCl (Reglan) 10 mg IV Q6H PRN PRN Reason: Nausea &/or Vomiting Stop: 03/01/20 12:35 Miscellaneous (Carbohydrates For Hypoglycemia) 15 - 30 gm PO UD PRN PRN Reason: Hypoglycemia Protocol Stop: 02/28/20 17:07 Naloxone HCl (Narcan) 0.1 mg IV Q5M PRN; Protocol PRN Reason: Oversedation/Resp Depression Stop: 03/01/20 12:35 Nitroglycerin (Nitrostat) 0.4 mg SL Q5M PRN PRN Reason: CHEST PAIN Stop: 02/28/20 16:11 Ondansetron HCl (Zofran) 4 mg IV Q6H PRN PRN Reason: Nausea And Vomiting Stop: 03/01/20 12:35 Ondansetron HCl (Zofran Odt) 4 mg PO Q6H PRN PRN Reason: Nausea Stop: 03/01/20 12:35 Oxycodone HCl (Oxycodone Hcl Ir 5 Mg Tab (Immediate Release)) 5 - 10 mg PO Q4H PRN PRN Reason: Moderate-Severe Pain Stop: 02/12/20 15:58 Last Admin: 02/09/20 05:51 Dose: 10 mg Documented by: Pantoprazole Sodium (Protonix) [facility] [place] Stop: 02/29/20 08:59 Last Admin: 02/09/20 08:04 Dose: 40 mg Documented by: Pneumococcal Polyvalent Vaccine (Pneumococcal Vacc, Do Not Administer) 1 ea N/A PRN PRN PRN Reason: Notification Stop: 03/01/20 12:35 Senna/Docusate Sodium (Senokot S) 2 tab PO [facility] Stop: 03/01/20 20:59 Last Admin: 02/08/20 21:14 Dose: Not Given Documented by: Sodium Biphosphate/Sodium Phosphate (Fleet Enema) 132 ml ME ONE PRN PRN Reason: Constipation Stop: 03/01/20 12:35 Terazosin HCl (Hytrin) 2 mg PO HS [facility] Stop: 02/28/20 20:59 Last Admin: 02/08/20 21:12 Dose: 2 mg Documented by: Tramadol HCl (Tramadol Hcl 50 Mg Tablet) 50 - 100 mg PO Q4H PRN PRN Reason: Moderate-Severe Pain Stop: 02/28/20 15:58 Last Admin: 02/08/20 12:35 Dose: 100 mg Documented by:
--- NOTE | 2020-02-09 12:32 | History & Physical Bridge Note ---
Date of Service February 09, 2020 History & Physical Bridge Note I have examined the patient, reviewed the History & Physical and in the interval since the performance of the History & Physical I have noted the following changes of clinical significance: no changes noted Plan for lumbar pelvic fusion
--- NOTE | 2020-02-09 12:38 | Anesthesiology Consultation ---
Date of Service February 09, 2020 Assessment & Plan (1) Encounter for pre-operative examination: Chart Review Chart Review: Acceptable Risk for Surgery and Patient NOT seen in Pre Admission Testing Consults Requested none History Surgery Operation Date: 01/31/20 09:05 Proposed Procedures p L1 Kyphoplasty; - Rashaad Street DO s Lumbar Seroma Incision and Drainage - Rashaad Street DO Operation Date: 02/09/20 12:15 Proposed Procedures p Lumbar Pelvic Fusion - Rashaad Street DO Height/Weight Height: 5 ft 10 in Weight: 106.1 kg Allergies Allergy/AdvReac Type Severity Reaction Status Date / Time nadolol AdvReac Unknown GI UPSET Verified 02/09/20 12:22 nitroglycerin AdvReac Unknown HEADACHE Verified 02/09/20 12:22 NSAIDS (Non-Steroidal AdvReac Unknown GI UPSET Verified 02/09/20 12:22 Anti-Inflamma Medications Home Medications Medication Instructions Recorded Confirmed Last Taken aspirin [Aspirin Low Dose] 81 mg PO QAM 04/02/18 01/29/20 01/28/20 atorvastatin 40 mg PO HS 04/02/18 01/29/20 01/28/20 carvedilol 12.5 mg PO BID 04/02/18 01/29/20 01/28/20 fluoxetine [Prozac] 40 mg PO QAM 04/02/18 01/29/20 01/28/20 furosemide [Lasix] 20 mg PO DAILY PRN 04/02/18 01/29/20 09/06/18 gabapentin 300 mg PO TID 04/02/18 01/29/20 01/28/20 metformin 500 mg PO BID 04/02/18 01/29/20 01/28/20 nitroglycerin 1 dose TRANSLINGUAL DIRECTED PRN 04/02/18 01/29/20 Unknown pantoprazole 40 mg PO QAM 04/02/18 01/29/20 01/28/20 terazosin 2 mg PO HS 04/02/18 01/29/20 01/28/20 amlodipine 5 mg PO QAM 03/29/19 01/29/20 01/28/20 betamethasone dipropionate 1 applic TOPICAL BID PRN 03/29/19 01/29/20 01/14/20 07:00 levothyroxine 25 mcg PO QAM 03/01/29/20 01/28/20 tramadol 50 mg PO Q6H PRN #30 tab 01/16/20 01/29/20 01/28/20 20:30 50 mg hydralazine 25 mg PO TID 01/29/20 01/29/20 Unknown methylprednisolone mg 01/29/20 Unknown tramadol 50 mg PO Q6H PRN #20 tab 02/05/20 Unknown Active Medications Generic Name Dose Route Start Last Admin Trade Name Alyssa PRN Reason Stop Dose Admin Acetaminophen 1,000 mg 01/31/20 12:36 02/06/20 15:27 Tylenol PO 03/01/20 12:35 1,000 mg Q8H PRN Administration MILD Pain Scale 1,2,3 & Pre PT Amlodipine Besylate 5 mg 01/30/20 09:00 02/09/20 08:04 Norvasc PO 02/29/20 08:59 5 mg QAM DIAMOND Administration Aspirin 81 mg 01/30/20 09:00 02/09/20 08:04 Ecotrin Ectab PO 02/29/20 08:59 81 mg QAM DIAMOND Administration Atorvastatin Calcium 40 mg 01/29/20 21:00 02/08/20 21:12 Lipitor PO 02/28/20 20:59 40 mg HS DIAMOND Administration Carvedilol 25 mg 02/02/20 21:00 02/09/20 08:04 Coreg PO 03/03/20 20:59 Not Given BID DIAMOND Docusate Sodium 100 mg 01/29/20 21:00 02/09/20 08:04 Colace PO 02/28/20 20:59 100 mg BID DIAMOND Administration Fluoxetine HCl 40 mg 01/30/20 09:00 02/09/20 08:04 Prozac PO 02/29/20 08:59 40 mg QAM DIAMOND Administration Gabapentin 300 mg 01/29/20 21:00 02/09/20 08:04 Neurontin PO 02/28/20 20:59 300 mg TID DIAMOND Administration Hydralazine HCl 10 mg 02/02/20 17:13 02/09/20 08:05 Hydralazine Hcl IV 03/03/20 17:14 10 mg Q6H PRN Administration SBP > 170 Hydralazine HCl 50 mg 02/05/20 14:00 02/09/20 08:04 Apresoline PO 03/06/20 13:59 50 mg TID DIAMOND Administration Hydromorphone HCl 0.5 mg 01/29/20 15:59 02/02/20 06:26 Dilaudid IV 02/12/20 15:58 0.5 mg Q3H PRN Administration moderate pain (scale 4-6) Hydromorphone HCl 1 mg 01/29/20 15:59 02/07/20 14:21 Hydromorphone Inj 1 Mg/Ml Syringe IV 02/12/20 15:58 1 mg Q3H PRN Administration severe pain (scale 7-10) Dexamethasone Sodium Phosphate 2 mls @ 1 mls/min 02/03/20 09:00 02/09/20 08:05 8 mg/ Syringe IV 03/04/20 08:59 1 mls/min DAILY DIAMOND Administration Insulin Aspart 0 units 02/09/20 06:15 02/09/20 12:52 Insulin Aspart 100 Units/Ml 3 Ml Pen SC 03/10/20 06:14 Not Given Q6 DIAMOND Insulin Glargine 7 units 02/02/20 21:10 02/08/20 21:11 Lantus Solostar Pen SC 03/03/20 21:09 7 units HS DIAMOND Administration Levothyroxine Sodium 25 mcg 01/30/20 06:30 02/09/20 05:51 Synthroid PO 02/29/20 06:29 25 mcg DAILYBB DIAMOND Administration Lorazepam 0.5 mg 01/31/20 12:36 02/06/20 15:59 Ativan PO 03/01/20 12:35 0.5 mg Q8H PRN Administration Sedation/Anxiety Magnesium Hydroxide 30 ml 01/31/20 12:36 02/02/20 09:44 Milk Of Magnesia PO 03/01/20 12:35 30 ml DAILY PRN Administration Constipation Magnesium Oxide 400 mg 02/01/20 12:00 02/09/20 08:04 Mag-Ox PO 03/02/20 11:59 400 mg QAM DIAMOND Administration Oxycodone HCl 5 - 10 mg 01/29/20 15:59 02/09/20 10:26 Oxycodone Hcl Ir 5 Mg Tab (Immediate Release) PO 02/12/20 15:58 10 mg Q4H PRN Administration Moderate-Severe Pain Pantoprazole Sodium 40 mg 01/30/20 09:00 02/09/20 08:04 Protonix PO 02/29/20 08:59 40 mg QAM DIAMOND Administration Senna/Docusate Sodium 2 tab 01/31/20 21:00 02/08/20 21:14 Senokot S PO 03/01/20 20:59 Not Given HS DIAMOND Terazosin HCl 2 mg 01/29/20 21:00 02/08/20 21:12 Hytrin PO 02/28/20 20:59 2 mg HS DIAMOND Administration Tramadol HCl 50 - 100 mg 01/29/20 15:59 02/08/20 12:35 Tramadol Hcl 50 Mg Tablet PO 02/28/20 15:58 100 mg Q4H PRN Administration Moderate-Severe Pain NPO Date Last Intake of Fluids: 02/09/20 Time Last Intake of Fluids: 11:30 Last Intake of Fluids Comment: small sip with medications Date Last Intake of Solids: 02/08/20 Time Last Intake of Solids: 20:00 Past Medical History Medical History CAD (coronary artery disease) 1991 - PTCA/PCI to ramus intermedius complicated by spiral dissection non-obstructive per 2017 cardiac cath Chronic back pain LLE radiculopathy CVA (cerebral vascular accident) 2017, residual unsteady, left sided weakness Depression Diabetes mellitus, type II Dyslipidemia GERD (gastroesophageal reflux disease) Hiatal hernia History of breast cancer right breast HTN (hypertension) Hypothyroidism IBS (irritable bowel syndrome) Osteoarthritis PAD (peripheral artery disease) severe right brachiocephalic stenosis and moderate to severe abdominal aortic stenosis- under surveillance by cardiovascular PAF (paroxysmal atrial fibrillation) post operative, no further reoccurance Rheumatoid arthritis Past Family History Family History Daughter Family history of reaction to anesthesia SLOW TO WAKE UP Mother Family history of diabetes mellitus Other Diabetes Heart disease Hypertension Past Surgical History Surgical History H/O repair of right rotator cuff 2013 History of back surgery 2019 History of bilateral knee arthroplasty Left (1995), right (2005) History of cardiac cath [facility]-2017 NO STENTS History of cholecystectomy 1998 History of colonoscopy History of modified radical mastectomy of right breast 2011 History of total knee replacement left revision Nasal fracture repair Status post lumbar surgery Status post renal artery angioplasty 1991 Social History Smoking Status: Former smoker Do You Dip or Chew Tobacco: No Smoking End Date: 1991 Hx Alcohol Use: No alcohol intake frequency: holidays/special occasions only Hx Substance Use: No substance use type: does not use Physical Exam Vital Signs Last Vital Signs Temp 36.2 C L 02/09/20 12:23 Pulse 20 L 02/09/20 12:23 Resp 20 02/09/20 12:23 BP 192/7 H 02/09/20 12:23 Pulse Ox 96 02/09/20 12:23 Testing Laboratory Results 02/08/20 05:21 02/09/20 05:40 PT 11.3 Seconds (9.0-12.0) 01/29/20 10:56 INR 1.1 (0.9-1.1) 01/29/20 10:56 APTT 23.1 Seconds (21.0-31.0) 01/29/20 10:56 Urine Color Yellow 02/06/20 18:15 Urine Appearance Clear (Clear) 02/06/20 18:15 Urine pH 7.0 (4.5-7.5) 02/06/20 18:15 Ur Specific [place] 1.012 (1.000-1.030) 02/06/20 18:15 Urine Protein 1+ (Negative) H 02/06/20 18:15 Urine Glucose (UA) Negative (Negative) 02/06/20 18:15 Urine Ketones Negative (Negative) 02/06/20 18:15 Urine Nitrite Negative (Negative) 02/06/20 18:15 Ur Leukocyte Esterase Negative (Negative) 02/06/20 18:15 Urine WBC (Auto) 1-5 /hpf (0-5) 02/06/20 18:15 Urine RBC (Auto) 0-4 /hpf (0-4) 02/06/20 18:15 U Hyaline Cast (Auto) 0 /lpf (0-5) 02/06/20 18:15 U Epithel Cells (Auto) 5-10 /lpf (0-5) H 02/06/20 18:15 Urine Bacteria (Auto) Negative (Negative) 02/06/20 18:15 Blood Type O Positive 02/08/20 15:17 Antibody Screen POSITIVE A 02/08/20 15:17 01/31/20 Unknown Gram Stain - Final Back,Lower Aerobic and Anaerobic Culture - Final No growth 01/31/20 Unknown Gram Stain - Final Back,Lower Aerobic and Anaerobic Culture - Final No growth 01/29/20 17:45 Urine Culture - Final Urine,Straight Cath Escherichia coli 02/09/20 02/09/20 12:00 05:56 POC Glucose 210 H 139 H Electrocardiogram Date: 12/18/19 Findings: + NSR @ (62) Chest X-Ray Date: 05/22/19 Thoracic kyphoplasty. Reversed right shoulder arthroplasty. Clear lungs.
[2020-02-09] MEDS ORDERED: ATROPINE SULFATE 0.1 MG/ML 10ML SYR IV PRN (12:55)
[2020-02-09] MEDS ORDERED: ONDANSETRON INJ 2 MG/ML 2 ML VIAL IV PRN ×2 (12:55→18:13)
[2020-02-09] MEDS ORDERED: ePHEDrine sulfate 50 MG/ML AMP IV PRN (12:55)
[2020-02-09] MEDS ORDERED: CEFAZOLIN 3000MG/72.5 ML BAG IV ONE (12:58)
[2020-02-09] MEDS ORDERED: BACITRACIN INJ 50,000 UNIT VIAL ONE (12:59)
[2020-02-09] MEDS ORDERED: BUPIVACAINE/EPINEPHRINE 0.25% 1:200,000 30 ML VIAL ONE (13:00)
[2020-02-09] MEDS ORDERED: CEFAZOLIN 3000MG 72.5 ML IV SCH (13:00)
[2020-02-09] MEDS ORDERED: fentaNYL citrate 100 MCG/2 ML VIAL ONE ×2 (13:05→14:44)
[2020-02-09] MEDS ORDERED: GENTAMICIN SULFATE 40 MG/ML 2 ML VIAL ONE (13:36)
[2020-02-09] MEDS ORDERED: VANCOMYCIN HCL 1000MG/20ML VIAL ONE (13:36)
[2020-02-09] MEDS ORDERED: ROCURONIUM BROMIDE 10 MG/ML 5 ML VIAL IV ONE (14:07)
[2020-02-09] MEDS ORDERED: ONDANSETRON INJ 2 MG/ML 2 ML VIAL ONE (14:07)
[2020-02-09] MEDS ORDERED: NEOSTIGMINE METHYLSULFATE 1 MG/ML 10ML VIAL ONE (14:07)
[2020-02-09] MEDS ORDERED: PROPOFOL IV EMULSION 10 MG/ML 20 ML VIAL IV ONE (14:07)
[2020-02-09] MEDS ORDERED: GLYCOPYRROLATE 0.2 MG/ML VIAL ONE (14:07)
[2020-02-09] MEDS ORDERED: BUPIVACAINE/EPINEPHRINE 0.25% 1:200,000 30 ML VIAL INFIL ONE (14:34)
[2020-02-09] MEDS ORDERED: GENTAMICIN SULFATE 40 MG/ML 2 ML VIAL IV ONE ×2 (14:43→15:00)
[2020-02-09] MEDS ORDERED: VANCOMYCIN HCL 1,000 MG/270 ML BAG IV ONE (14:47)
[2020-02-09] MEDS ORDERED: BACITRACIN INJ 50,000 UNIT VIAL IR ONE (15:25)
--- NOTE | 2020-02-09 15:37 | Fluoroscopy Report ---
FL lumbar spine 2-3V HISTORY: 74 years-old Female LUMBAR PELVIC FUSION/ILIAC BOLTS COMPARISON: Fluoroscopic images of the lumbar spine 01/31/2020, MRI lumbar spine 02/07/2020 TECHNIQUE: 3 spot fluoroscopic images of the lumbar spine were obtained utilizing 17.7 seconds fluoro scopy time FINDINGS: Limited exam secondary to positioning. Posterior interbody rods with pedicle screws redemonstrated wi thin the lumbar spine with discectomy changes. There appears to have been interval placement of 2 augustine ac bolts. Imaged hardware appears intact. IMPRESSION: Fluoroscopic assistance as above. Please see operative report for further details. ACT 112: Negative or not required by law. The above report was generated using voice recognition software. It may contain grammatical, syntax o r spelling errors. Electronically signed by: Bishnu Juarez M.D. 02/09/2020 3:35 PM
--- NOTE | 2020-02-09 15:39 | Operative Report ---
Post Operative Report Pre & Post Diagnosis Operation Date: 01/31/20 09:05 Pre-Op Diagnosis: COMPRESSION FRACTURE ,Lumar Seroma Post-Op Diagnosis: COMPRESSION FRACTURE, Lumbar Seroma Operation Date: 02/09/20 12:15 Pre-Op Diagnosis: Sacral alar fracture with S1-S2 fracture Obesity Post-Op Diagnosis: Same I identified the patient and participated in the time-out.: Yes Procedure Operation Date: 01/31/20 09:05 Actual Procedures p L1 Kyphoplasty; - Rashaad Street DO s Lumbar Seroma Incision and Drainage - Rashaad Street DO Operation Date: 02/09/20 12:15 Actual Procedures #1 removal of posterior instrumentation including bilateral S1 pedicle screws. #2 open SI joint fusion bilaterally. #3 placement of bilateral iliac bolts. #4 placement of infuse collagen sponge combined master graft in the bilateral SI joints. #5 lumbar pelvic fusion. Surgeon Rashaad Street DO Cofounder Michele Graham Estimated Blood Loss 25 Findings See Below Patient is 5 foot and 106 kg with a BMI in excess of 33. Patient's body habitus did add increased technical difficulty. This at least 50% increase in operative time and will increase postoperative management. Specimens None Indications This is a 74-year-old female that well-known to me that presents with worsening lumbosacral back pain. Imaging demonstrates evidence of bilateral sacral alar fracture and S1-S2 fracture. She was incapacitated unable to transfer or ambulate we chose to go the above-mentioned procedure. Description of Procedure Patient was met with identified informed consent obtained. Patient was then taken to the operative suite underwent an patient placed in a prone position the Yan table on top of the Erik frame. All bony prominences well-padded eyes inspected to ensure no external pressure placed upon them. This point the lumbar spine was prepped and draped in a sterile fashion. Sharp dissection with the assistance of Bovie cautery is warm down to and exposing the instrumentation from L1-S1 as well as the bilateral posterior SI joints. I then remove the malcolm bilaterally noting loosening of the bilateral S1 pedicle screws. These were removed and larger screws were inserted demonstrating much better purchase. I then placed bilateral iliac bolts using globus MAXWELL-coated screws. SI joints were then exposed burred to subcortical bleeding bone. Infuse collagen sponge and master graft was then inserted into the bilateral SI joints. Proper sized malcolm was then reinserted and connected to iliac bolts. Cross-link was also locked into position. I did place approximately 10 cc of stimulant beads throughout the incision. 15 round BRITTNEY drain inserted. The incision was then closed with 1 Vicryl to fascia 2-0 Vicryl subcutaneously and 4 Monocryl for final skin closure. Steri-Strips dressings placed. Patient will continue to PACU stable addition. Please note Michele Graham was present at the entire procedure involved the patient positioning complex portions of the surgery and fascial closure. I attest to the content of the Intraoperative Record and any orders documented therein. Any exceptions are noted below.
[2020-02-09] MEDS: fentaNYL citrate 100 MCG/2 ML VIAL IV PRN ×4 (16:25→16:40)
[2020-02-09] MEDS: HYDROmorphone INJ 1 MG/ML SYRINGE IV PRN ×11 (16:45→22:15)
--- NOTE | 2020-02-09 16:53 | Anesthesiology Progress Note ---
Date of Service February 09, 2020 Anesthesia Post Procedure Vital Signs Vital Signs: Temp Pulse Pulse Pulse Pulse Resp BP 02/09/20 16:25 69 58 L 20 L 20 179/106 H 02/09/20 16:19 37.3 C 69 58 L 20 L 20 160/96 H 02/09/20 12:23 36.2 C L 58 L 20 L 58 L 20 192/7 H 02/09/20 11:12 193/79 H 02/09/20 07:50 60 192/104 H 02/09/20 07:00 36.5 C 58 L 16 201/71 H 02/08/20 23:32 36.6 C 65 16 137/69 02/08/20 21:06 84 16 172/73 H 02/08/20 19:16 180/90 H 02/08/20 19:15 199/70 H 02/08/20 17:26 61 18 200/75 H Pulse Ox 02/09/20 16:25 96 02/09/20 16:19 96 02/09/20 12:23 96 02/09/20 11:12 02/09/20 07:50 02/09/20 07:00 97 02/08/20 23:32 98 02/08/20 21:06 96 02/08/20 19:16 02/08/20 19:15 02/08/20 17:26 97 Pain Intensity Bilateral Lower Back: Pain Intensity: 8 Right Back: Pain Intensity: 8 Back: Pain Intensity: 10 Left Back: Pain Intensity: 10 Head: Pain Intensity: 7 Transfer of Care Handoff Completed per policy Notes Mental Status: alert / awake / arousable and participated in evaluation Patient Amnestic to Procedure: Yes Nausea / Vomiting: adequately controlled Pain: adequately controlled Airway Patency, RR, SpO2: stable & adequate BP & HR: stable & adequate Hydration State: stable & adequate Anesthetic Complications: no major complications apparent and Pt Satisfied with anesthetic care
[2020-02-09] MEDS ORDERED: ACETAMINOPHEN 1,000 MG/100 ML VIAL IV STA (17:07)
[2020-02-09] MEDS ORDERED: ACETAMINOPHEN 1000 MG/100 ML IV IV ONE (17:07)
[2020-02-09] MEDS ORDERED: HYDROmorphone INJ 2 MG/ML SYR/VIAL IV PRN (17:07)
[2020-02-09] MEDS ORDERED: DO NOT ADMINISTER FLU VACCINE PRN (18:13)
[2020-02-09] MEDS ORDERED: ALUMINUM/MAGNESIUM SUSP 30 ML UDC PO PRN (18:13)
[2020-02-09] MEDS ORDERED: NALOXONE HCL 0.4 MG/1 ML VIAL/CARP IV PRN (18:13)
[2020-02-09] MEDS ORDERED: DO NOT ADMINISTER PNEUMOCOCCAL VACCINE PRN (18:13)
[2020-02-09] MEDS ORDERED: bisacodyL 10 MG SUPP PR PRN (18:13)
[2020-02-09] MEDS ORDERED: LORazepam 0.5 MG TAB PO PRN (18:13)
[2020-02-09] MEDS ORDERED: FAMOTIDINE 20 MG TAB PO PRN (18:13)
[2020-02-09] MEDS ORDERED: MAGNESIUM HYDROXIDE SUSP 30 ML UDC PO PRN (18:13)
[2020-02-09] MEDS ORDERED: ONDANSETRON 4 MG OD TAB PO PRN (18:13)
[2020-02-09] MEDS ORDERED: PROMETHAZINE HCL 12.5 MG in SODIUM CHLORIDE 0.9% 50 ML IV PRN (18:13)
[2020-02-09] MEDS ORDERED: LORazepam 0.5 MG/1 ML VIAL IV PRN (18:13)
[2020-02-09] MEDS ORDERED: METOCLOPRAMIDE HCL INJ 5 MG/ML 2 ML VIAL IV PRN (18:13)
[2020-02-09] MEDS ORDERED: SOD PHOSPHATE/SOD BIPHOSPHATE ENEMA 132 ML BTL PR PRN (18:13)
[2020-02-09] MEDS: SODIUM CHLORIDE 0.9% 1000ML 1,000 ML IV SCH (19:12)
[2020-02-09] MEDS: INSULIN GLARGINE SOLOSTAR 100 UNITS/ML 3 ML PEN SC SCH (21:22)
[2020-02-09] MEDS: DOCUSATE SODIUM/SENNA 50/8.6MG TAB PO SCH (21:25)
[2020-02-09] MEDS: ATORVASTATIN 40 MG TAB PO SCH (21:26)
[2020-02-09] MEDS: CEFAZOLIN 2000MG 2,000 MG/15 ML SYR IV SCH (21:37)
[2020-02-09] MEDS: TERAZOSIN HCL 1 MG CAP PO SCH (22:17)
[2020-02-10] MEDS: OXYCODONE HCL IR 5 MG TAB (IMMEDIATE RELEASE) PO PRN ×5 (02:15→21:00)
[2020-02-10] MEDS: LEVOTHYROXINE SODIUM 25 MCG TABLET PO SCH (05:28)
[2020-02-10] MEDS: CEFAZOLIN 2000MG 2,000 MG/15 ML SYR IV SCH (05:37)
[2020-02-10] MEDS: HYDROmorphone INJ 1 MG/ML SYRINGE IV PRN ×3 (05:37→12:30)
[2020-02-10] MEDS: SODIUM CHLORIDE 0.9% 1000ML 1,000 ML IV SCH (05:57)
[2020-02-10] MEDS ORDERED: POLYETHYLENE (MIRALAX) 17 GM PACK PO SCH (06:00)
[2020-02-10 06:40] LABS: Hematocrit (blood only) 30.7 % (37-47); Hemoglobin 9.8 g/dL (12.0-16.0); Mean Corpuscular Hemoglobin 31.5 pg (25-34); Mean Corpuscular Hgb Conc 31.9 g/dL (32-36); Mean Corpuscular Volume 98.7 fL (80-100); Mean Platelet Volume 8.7 fL (7.4-10.4); Platelet Count 176 K/uL (130-400); RDW Standard Deviation 53.6 fL (36.4-46.3); Red Blood Count 3.11 M/uL (4.2-5.4); White Blood Count 12.02 K/uL (4.8-10.8)
[2020-02-10 06:56] LABS: ALC (manual) 1.17 K/uL (1.2-3.4); ANC (manual) 10.33 K/uL (1.4-6.5); Lymphocytes # (manual) 1.17 K/uL (1.2-3.4); Lymphocytes % (manual) 9.7 %; Monocytes # (manual) 0.42 K/uL (0.11-0.59); Monocytes % (manual) 3.5 %; Myelocytes # (manual) 0.11 K/uL (0-0); Myelocytes % (manual) 0.9 %; Neutrophils # (manual) 10.33 K/uL (1.4-6.5); Neutrophils % (manual) 85.9 %; Ovalocytes 1+
[2020-02-10 06:59] LABS: Calcium 8.1 mg/dl (8.5-10.1); Creatinine Clr Calc Pharmacy 70.4 ml/min; Est GFR (African American) 71.5; Est GFR (Non-African American) 61.7; Potassium 3.8 mmol/L (3.5-5.1)
[2020-02-10] MEDS: PANTOprazole 40 MG TAB PO SCH (07:47)
[2020-02-10] MEDS: carvediloL 25 MG TAB PO SCH ×2 (07:47→21:03)
[2020-02-10] MEDS: FLUOXETINE HCL 20 MG CAP PO SCH (07:47)
[2020-02-10] MEDS: DOCUSATE SODIUM 100 MG CAP PO SCH ×2 (07:48→21:03)
[2020-02-10] MEDS: MAGNESIUM OXIDE 400 MG TAB PO SCH (07:48)
[2020-02-10] MEDS: GABAPENTIN 300 MG CAP PO SCH ×3 (07:49→21:03)
[2020-02-10] MEDS: AMLODIPINE BESYLATE 5 MG TAB PO SCH (07:49)
[2020-02-10] MEDS: ASPIRIN 81 MG ECTAB PO SCH (07:50)
[2020-02-10] MEDS: HydrALAZINE TAB 50 MG TAB PO SCH ×3 (07:50→21:03)
[2020-02-10] MEDS: HydrALAZINE HCL 20 MG/ML VIAL IV PRN (07:52)
[2020-02-10] MEDS: DEXAMETHASONE SOD PHOSPHATE 8 MG in SYRINGE 0 ML IV SCH (07:53)
[2020-02-10] MEDS: INSULIN ASPART 100 UNITS/ML 3 ML PEN SC SCH ×4 (08:58→21:05)
--- NOTE | 2020-02-10 10:03 | Orthopedic Progress Note ---
Date of Service February 10, 2020 Assessment & Plan (1) Sacral fracture: Admission and Anticipated Discharge Date Admission Date: January 29, 2020 At this time we will initiate physical therapy for transfers bed to chair. She is to walk very short distances. She will most likely require fpc or rehab early next week. Subjective Patient's back pain is controlled. She complains of numbness in the lower e xtremities. Physical Exam Physical Exam: Patient has good strength testing. She is in bed. Results & Data ([facility]) Vital Signs (Past 12 Hours) Vital Signs Temp Pulse Resp BP Pulse Ox 02/10/20 09:28 165/77 H 02/10/20 07:00 36.6 C 86 18 191/67 H 93 02/10/20 02:46 36.5 C 78 16 131/88 93 02/09/20 23:30 36.4 C L 94 H 18 169/84 H 92
[2020-02-10] MEDS: TRAMADOL HCL 50 MG TABLET PO PRN (10:25)
--- NOTE | 2020-02-10 10:26 | Hospitalist Progress Note ---
Date of Service February 10, 2020 Assessment & Plan (1) Postoperative back pain: L1 compression fracture Lumbar seroma Sacral fracture S/P L3-S1 decompression and fusion on 01/[address] --Lumbar MRI:Interval L2-S1 spinal decompression and fusion. Interval devel opment of an 8.8 x 4.5 x 13.4 cm midline posterior subcutaneous fluid collection which is felt to be postsurgical. Persistent severe T12 compression fracture with 4 mm of retropulsion but no evidence of significant canal compromise. Interval development of a superior endplate L1 compression fracture with 30% loss in height. Interval development of subtle S2 marrow edema suggesting a insufficiency fracture. --Appreciate Ortho input and recommendation --Status post L1 kyphoplasty and I&D of lumbar seroma on 01/31/2020 Continued empiric antibiotics with vancomycin, Zosyn Continued to have pain with some radiation in the legs without any fever and/or chills or headache, not controlled with anti-inflammatory Lumbar spine CT to evaluate it further as per Ortho, did not show significant abnormality continued current medications including Decadron, Toradol and as needed IV Dilaudid Has been getting physical therapy and pain medications Pain not reasonably controlled to be discharged MRI ordered by Dr. Street to further evaluate (02/06) Dr. Street reviewed the MRI findings with the patient, confirmed suspicion of a sacral fracture. Recommending a lumbar pelvic fusion by way of extending the rods to the pelvis with iliac bolts. This will provide some stabilization across the fracture site and hopefully then can begin mobilization of the patient with less pain. Patient underwent above-mentioned procedure on 02/08, tolerated well, pt complains of some sore back, plan for rehab after discharge Urinary incontinence Had this problem before admission Seems worse following admission Complicated by UTI-has been receiving Augmentin to cover UTI and surgery site.Finished Abx course on 02/05. Advised to have outpatient urology appointment as soon as possible on discharge Will not put any medications for now (2) Leukocytosis: Urinary tract infection--POA Urine culture E. coli and is pansensitive Continued Zosyn as above and changed to oral antibiotic Augmentin. Finished Abx course on 02/05. White cell count has normalized Surgical site infection has been ruled out Changed antibiotic to oral Augmentin to cover UTI and surgical wound at the back Antibiotics continued until 02/05 (from 01/28) No increase in white count remains stable as of 02/06/2020 (3) Hypomagnesemia: Initially low at 1.4 after supplement-magnesium remains low at 1.5 We will supplement more-we will recheck Magnesium level is normalized, now 1.8 on 02/07 (4) Hypokalemia: Replace electrolytes as needed monitor -normalized (5) Diabetes mellitus, type II: Hgb A1c 6.4 12/2019 Hold oral agents Utilize NovoLog per protocol while hospitalized (6) HTN (hypertension): BP elevated likely situational secondary to pain Continue amlodipine, carvedilol, hydralazine Pain control increased the dose of hydralazine to 50 mg 3 times daily Blood pressure better controlled-will not start any other medications or increase doses for now Observe (7) CAD (coronary artery disease): Stable Continue aspirin, statin, beta-pamela (8) Rheumatoid arthritis: Previously on Plaquenil and methotrexate Currently not taking meds No acute arthritis involving any joints (9) DVT prophylaxis: Teds/SCDs as per spine Ortho Disposition: As per Primary Team, patient will likely need rehab after discharge Admission and Anticipated Discharge Date Admission Date: January 29, 2020 Subjective She is currently sitting in chair, in no acute distress. Seen by orthopedics in the morning. Currently denies any fevers, chills, chest pain, shortness of breath, abdominal pain, nausea or vomiting. Also denies any headaches. Says that her back feels sore. Patient understands she may need rehab after discharge. Review of Systems Review of Systems: All systems reviewed & are unremarkable except as noted in HPI & below Constitutional: no fever and no chills Respiratory: no cough and no dyspnea Cardiovascular: no chest pain and no palpitations Gastrointestinal: no abdominal pain, no nausea and no vomiting Musculoskeletal: + back pain (post surgery) Physical Exam Physical Exam: Physical Exam: Sitting up in a chair, in no acute distress, with some pain involving the lower back (now post-surg.) Constitutional: well developed, well nourished, + mild acute distress (Minimal distress due to back pain) and + obese; not ill appearing Eyes: PERRL, conjunctivae normal, anicteric sclerae ENMT: external ear and nose normal, oropharynx normal Neck: trachea midline, no thyromegaly Respiratory: normal respiratory effort; no respiratory distress Auscultation: lungs clear to auscultation bilaterally, no wheezing, rhonchi or crackles noted Cardiovascular: Rate/Rhythm: regular rate and regular rhythm Heart Sounds: no murmur Gastrointestinal (Abdomen): Inspection/Auscultation: abdomen normal to inspection and normal bowel sounds; abdomen not distended Percussion/Palpation: abdomen soft; abdomen nontender Musculoskeletal: + back pain Neurologic: moves all extremities; no focal motor deficits Remains weak Results & Data Results & Data ([facility]) Vital Signs (Past 12 Hours) Vital Signs Temp Pulse Resp BP Pulse Ox 02/10/20 09:28 165/77 H 02/10/20 07:00 36.6 C 86 18 191/67 H 93 02/10/20 02:46 36.5 C 78 16 131/88 93 02/09/20 23:30 36.4 C L 94 H 18 169/84 H 92 Laboratory Results 02/10/20 02/10/20 02/10/20 Range/Units 08:04 06:06 06:06 WBC 12.02 H (4.8-10.8) K/uL RBC 3.11 L (4.2-5.4) M/uL Hgb 9.8 L (12.0-16.0) g/dL Hct 30.7 L (37-47) % MCV 98.7 (80-100) fL MCH 31.5 (25-34) pg MCHC 31.9 L (32-36) g/dL RDW Std Deviation 53.6 H (36.4-46.3) fL RDW Coeff of Farheen 15.0 H (11.5-14.5) % Plt Count 176 (130-400) K/uL MPV 8.7 (7.4-10.4) fL Neutrophils % (Manual) 85.9 % Lymphocytes % (Manual) 9.7 % Monocytes % (Manual) 3.5 % Myelocytes % (Man) 0.9 % Neutrophils # (Manual) 10.33 H (1.4-6.5) K/uL Total Absolute Neuts 10.33 H (1.4-6.5) K/uL Lymphocytes # (Manual) 1.17 L (1.2-3.4) K/uL Total Abs Lymphocytes 1.17 L (1.2-3.4) K/uL Monocytes # (Manual) 0.42 (0.11-0.59) K/uL Myelocytes # (Manual) 0.11 H (0-0) K/uL Ovalocytes 1+ Sodium 137 (136-145) mmol/L Potassium 3.8 (3.5-5.1) mmol/L Chloride 105 (98-107) mmol/L Carbon Dioxide 27 (21-32) mmol/L Anion Gap 5.0 (3-11) BUN 21 H (7-18) mg/dl Creatinine 0.91 (0.6-1.2) mg/dl Est Cr Clr Drug Dosing 70.4 ml/min Est GFR ( Amer) 71.5 Est GFR (Non-Af Amer) 61.7 BUN/Creatinine Ratio 23.0 H (10-20) Glucose 107 H (70-99) mg/dl POC Glucose 149 H (70-99) mg/dl Calcium 8.1 L (8.5-10.1) mg/dl 02/09/20 02/09/20 02/09/20 Range/Units 23:53 21:07 16:31 WBC (4.8-10.8) K/uL RBC (4.2-5.4) M/uL Hgb (12.0-16.0) g/dL Hct (37-47) % MCV (80-100) fL MCH (25-34) pg MCHC (32-36) g/dL RDW Std Deviation (36.4-46.3) fL RDW Coeff of Farheen (11.5-14.5) % Plt Count (130-400) K/uL MPV (7.4-10.4) fL Neutrophils % (Manual) % Lymphocytes % (Manual) % Monocytes % (Manual) % Myelocytes % (Man) % Neutrophils # (Manual) (1.4-6.5) K/uL Total Absolute Neuts (1.4-6.5) K/uL Lymphocytes # (Manual) (1.2-3.4) K/uL Total Abs Lymphocytes (1.2-3.4) K/uL Monocytes # (Manual) (0.11-0.59) K/uL Myelocytes # (Manual) (0-0) K/uL Ovalocytes Sodium (136-145) mmol/L Potassium (3.5-5.1) mmol/L Chloride (98-107) mmol/L Carbon Dioxide (21-32) mmol/L Anion Gap (3-11) BUN (7-18) mg/dl Creatinine (0.6-1.2) mg/dl Est Cr Clr Drug Dosing ml/min Est GFR ( Amer) Est GFR (Non-Af Amer) BUN/Creatinine Ratio (10-20) Glucose (70-99) mg/dl POC Glucose 151 H 284 H 255 H (70-99) mg/dl Calcium (8.5-10.1) mg/dl 02/09/20 Range/Units 12:00 WBC (4.8-10.8) K/uL RBC (4.2-5.4) M/uL Hgb (12.0-16.0) g/dL Hct (37-47) % MCV (80-100) fL MCH (25-34) pg MCHC (32-36) g/dL RDW Std Deviation (36.4-46.3) fL RDW Coeff of Farheen (11.5-14.5) % Plt Count (130-400) K/uL MPV (7.4-10.4) fL Neutrophils % (Manual) % Lymphocytes % (Manual) % Monocytes % (Manual) % Myelocytes % (Man) % Neutrophils # (Manual) (1.4-6.5) K/uL Total Absolute Neuts (1.4-6.5) K/uL Lymphocytes # (Manual) (1.2-3.4) K/uL Total Abs Lymphocytes (1.2-3.4) K/uL Monocytes # (Manual) (0.11-0.59) K/uL Myelocytes # (Manual) (0-0) K/uL Ovalocytes Sodium (136-145) mmol/L Potassium (3.5-5.1) mmol/L Chloride (98-107) mmol/L Carbon Dioxide (21-32) mmol/L Anion Gap (3-11) BUN (7-18) mg/dl Creatinine (0.6-1.2) mg/dl Est Cr Clr Drug Dosing ml/min Est GFR ( Amer) Est GFR (Non-Af Amer) BUN/Creatinine Ratio (10-20) Glucose (70-99) mg/dl POC Glucose 210 H (70-99) mg/dl Calcium (8.5-10.1) mg/dl Medications Administered Current Inpatient Medications Acetaminophen (Tylenol) 1,000 mg PO Q8H PRN PRN Reason: MILD Pain Scale 1,2,3 & Pre PT Stop: 03/01/20 12:35 Last Admin: 02/06/20 15:27 Dose: 1,000 mg Documented by: Al Hydrox/Mg Hydrox/Simethicone (Aluminum/Magnesium Susp 30 Ml Udc) 30 ml PO Q6H PRN PRN Reason: Dyspepsia Stop: 03/10/20 18:12 Amlodipine Besylate (Norvasc) 5 mg PO QAM [facility] Stop: 02/29/20 08:59 Last Admin: 02/10/20 07:49 Dose: 5 mg Documented by: Aspirin (Ecotrin Ectab) 81 mg PO QAM [facility] Stop: 02/29/20 08:59 Last Admin: 02/10/20 07:50 Dose: 81 mg Documented by: Atorvastatin Calcium (Lipitor) 40 mg PO HS [facility] Stop: 02/28/20 20:59 Last Admin: 02/09/20 21:26 Dose: 40 mg Documented by: Bisacodyl (Bisacodyl 10 Mg Supp) 10 mg [place] DAILY PRN PRN Reason: Constipation Stop: 03/10/20 18:12 Carvedilol (Carvedilol 25 Mg Tab) 25 mg PO BID [facility] Stop: 03/11/20 08:59 Last Admin: 02/10/20 07:47 Dose: 25 mg Documented by: Dextrose (Dextrose 50%) 25 - 50 ml IV UD PRN; Protocol PRN Reason: Hypoglycemia Protocol Stop: 02/28/20 17:07 Diphenhydramine HCl (Diphenhydramine Hcl 25 Mg Cap) 25 mg PO Q6H PRN PRN Reason: Allergic Rhinitis/Insomnia Stop: 03/10/20 18:12 Docusate Sodium (Colace) 100 mg PO BID [facility] Stop: 02/28/20 20:59 Last Admin: 02/10/20 07:48 Dose: 100 mg Documented by: Famotidine (Famotidine 20 Mg Tab) 20 mg PO Q12H PRN PRN Reason: Dyspepsia Stop: 03/10/20 18:12 Fluoxetine HCl (Prozac) 40 mg PO QAM [facility] Stop: 02/29/20 08:59 Last Admin: 02/10/20 07:47 Dose: 40 mg Documented by: Furosemide (Lasix) 20 mg PO DAILY PRN PRN Reason: Weight Gain Stop: 02/28/20 15:58 Gabapentin (Neurontin) 300 mg PO TID [facility] Stop: 02/28/20 20:59 Last Admin: 02/10/20 07:49 Dose: 300 mg Documented by: Glucagon (Glucagen) 1 mg SQ UD PRN; Protocol PRN Reason: Hypoglycemia Protocol Stop: 02/28/20 17:07 Glucose (Dex4 Glucose) 4 - 8 tabs PO UD PRN; Protocol PRN Reason: Hypoglycemia Protocol Stop: 02/28/20 17:07 Glucose (Glucose 40%) 15 - 30 gm PO UD PRN; Protocol PRN Reason: Hypoglycemia Protocol Stop: 02/28/20 17:07 Hydralazine HCl (Hydralazine Hcl) 10 mg IV Q6H PRN PRN Reason: SBP > 170 Stop: 03/03/20 17:14 Last Admin: 02/10/20 07:52 Dose: 10 mg Documented by: Hydralazine HCl (Apresoline) 50 mg PO TID [facility] Stop: 03/06/20 13:59 Last Admin: 02/10/20 07:50 Dose: 50 mg Documented by: Hydromorphone HCl (Hydromorphone Inj 0.5 Mg/0.5 Ml Syr) 0.5 mg IV Q3H PRN PRN Reason: moderate pain (scale 4-6) Stop: 02/12/20 15:58 Last Admin: 02/02/20 06:26 Dose: 0.5 mg Documented by: Hydromorphone HCl (Hydromorphone Inj 1 Mg/Ml Syringe) 1 mg IV Q3H PRN PRN Reason: severe pain (scale 7-10) Stop: 02/12/20 15:58 Last Admin: 02/10/20 08:53 Dose: 1 mg Documented by: Hydroxyzine HCl (Hydroxyzine Hcl 25 Mg Tab) 25 mg PO Q8H PRN PRN Reason: Anxiety Stop: 03/10/20 18:12 Dexamethasone Sodium Phosphate (8 mg/ Syringe) 2 mls @ 1 mls/min IV DAILY [facility] Stop: 03/04/20 08:59 Last Admin: 02/10/20 07:53 Dose: 1 mls/min Documented by: Promethazine HCl 12.5 mg/ (Sodium Chloride) 50.5 mls @ 204 mls/hr IV Q6H PRN PRN Reason: Nausea &/or Vomiting Stop: 03/10/20 18:12 Lorazepam (Ativan) 0.5 mg in 1 mls @ 0.5 mls/min IV Q8H PRN PRN Reason: Sedation/Anxiety Stop: 03/10/20 18:12 Influenza Virus Vaccine Quadrival (Do Not Administer Flu Vaccine) 1 ea N/A PRN PRN PRN Reason: Notification Stop: 03/10/20 18:12 Insulin Aspart (Insulin Aspart 100 Units/Ml 3 Ml Pen) 0 units SC ACHS [facility] Stop: 03/10/20 22:29 Last Admin: 02/10/20 08:58 Dose: 4 units Documented by: Insulin Glargine (Lantus Solostar Pen) 7 units SC HS [facility] Stop: 03/03/20 21:09 Last Admin: 02/09/20 21:22 Dose: 7 units Documented by: Levothyroxine Sodium (Synthroid) 25 mcg PO DAILYBB [facility] Stop: 02/29/20 06:29 Last Admin: 02/10/20 05:28 Dose: 25 mcg Documented by: Lorazepam (Lorazepam 0.5 Mg Tab) 0.5 mg PO Q8H PRN PRN Reason: Sedation/Anxiety Stop: 03/10/20 18:12 Magnesium Hydroxide (Magnesium Hydroxide Susp 30 Ml Udc) 30 ml PO DAILY PRN PRN Reason: Constipation Stop: 03/10/20 18:12 Magnesium Oxide (Mag-Ox) 400 mg PO QAM [facility] Stop: 03/02/20 11:59 Last Admin: 02/10/20 07:48 Dose: 400 mg Documented by: Metoclopramide HCl (Metoclopramide Hcl Inj 5 Mg/Ml 2 Ml Vial) 10 mg IV Q6H PRN PRN Reason: Nausea &/or Vomiting Stop: 03/10/20 18:12 Miscellaneous (Carbohydrates For Hypoglycemia) 15 - 30 gm PO UD PRN PRN Reason: Hypoglycemia Protocol Stop: 02/28/20 17:07 Naloxone HCl (Naloxone Hcl 0.4 Mg/1 Ml Vial/Carp) 0.1 mg IV Q5M PRN; Protocol PRN Reason: Oversedation/Resp Depression Stop: 03/10/20 18:12 Nitroglycerin (Nitrostat) 0.4 mg SL Q5M PRN PRN Reason: CHEST PAIN Stop: 02/28/20 16:11 Ondansetron HCl (Ondansetron Inj 2 Mg/Ml 2 Ml Vial) 4 mg IV Q6H PRN PRN Reason: Nausea &/or Vomiting Stop: 03/10/20 18:12 Ondansetron HCl (Ondansetron 4 Mg Od Tab) 4 mg PO Q6H PRN PRN Reason: Nausea Stop: 03/10/20 18:12 Oxycodone HCl (Oxycodone Hcl Ir 5 Mg Tab (Immediate Release)) 5 - 10 mg PO Q4H PRN PRN Reason: Moderate-Severe Pain Stop: 02/12/20 15:58 Last Admin: 02/10/20 07:48 Dose: 10 mg Documented by: Pantoprazole Sodium (Protonix) 40 mg PO [facility] Stop: 02/29/20 08:59 Last Admin: 02/10/20 07:47 Dose: 40 mg Documented by: Pneumococcal Polyvalent Vaccine (Do Not Administer Pneumococcal Vaccine) 1 ea N/A PRN PRN PRN Reason: Notification Stop: 03/10/20 18:12 Polyethylene Glycol (Polyethylene (Miralax) 17 Gm Pack) 17 gm PO Q6 [facility] Stop: 03/11/20 05:59 Last Admin: 02/10/20 05:29 Dose: 17 gm Documented by: Senna/Docusate Sodium (Docusate Sodium/Senna 50/8.6mg Tab) 2 tab PO [facility] Stop: 03/10/20 20:59 Last Admin: 02/09/20 21:25 Dose: Not Given Documented by: Sodium Biphosphate/Sodium Phosphate (Sod Phosphate/Sod Biphosphate Enema 132 Ml Btl) 132 ml [place] ONE PRN PRN Reason: Constipation Stop: 03/10/20 18:12 Terazosin HCl (Hytrin) 2 mg PO [facility] Stop: 02/28/20 20:59 Last Admin: 02/09/20 22:17 Dose: 2 mg Documented by: Tramadol HCl (Tramadol Hcl 50 Mg Tablet) 50 - 100 mg PO Q4H PRN PRN Reason: Moderate-Severe Pain Stop: 02/28/20 15:58 Last Admin: 02/10/20 10:25 Dose: 100 mg Documented by:
[2020-02-10] MEDS ORDERED: Nursing to Pharmacy Communication SCH (10:30)
[2020-02-10] MEDS: DOCUSATE SODIUM/SENNA 50/8.6MG TAB PO SCH (21:02)
[2020-02-10] MEDS: ATORVASTATIN 40 MG TAB PO SCH (21:03)
[2020-02-10] MEDS: TERAZOSIN HCL 1 MG CAP PO SCH (21:04)
[2020-02-10] MEDS: INSULIN GLARGINE SOLOSTAR 100 UNITS/ML 3 ML PEN SC SCH (21:04)
[2020-02-10] MEDS: ACETAMINOPHEN 500 MG TAB PO PRN (23:52)
[2020-02-11] MEDS: LEVOTHYROXINE SODIUM 25 MCG TABLET PO SCH (05:51)
[2020-02-11] MEDS: OXYCODONE HCL IR 5 MG TAB (IMMEDIATE RELEASE) PO PRN ×4 (06:07→20:57)
[2020-02-11 06:31] LABS: Hematocrit (blood only) 26.9 % (37-47); Hemoglobin 8.8 g/dL (12.0-16.0); Mean Corpuscular Hemoglobin 31.8 pg (25-34); Mean Corpuscular Hgb Conc 32.7 g/dL (32-36); Mean Corpuscular Volume 97.1 fL (80-100); Mean Platelet Volume 8.5 fL (7.4-10.4); Platelet Count 143 K/uL (130-400); RDW Coefficient of Variation 14.8 % (11.5-14.5); RDW Standard Deviation 52.4 fL (36.4-46.3); Red Blood Count 2.77 M/uL (4.2-5.4); White Blood Count 9.17 K/uL (4.8-10.8)
[2020-02-11 07:21] LABS: Est GFR (African American) 98.2; Potassium 3.8 mmol/L (3.5-5.1)
[2020-02-11 07:22] LABS: BUN Creatinine Ratio 26.1 (10-20); Calcium 8.3 mg/dl (8.5-10.1); Creatinine Clr Calc Pharmacy 91.6 ml/min; Est GFR (Non-African American) 84.8
--- NOTE | 2020-02-11 07:35 | Hospitalist Progress Note ---
Date of Service February 11, 2020 Assessment & Plan (1) Postoperative back pain: L1 compression fracture Lumbar seroma Sacral fracture S/P L3-S1 decompression and fusion on 01/[address] --Lumbar MRI:Interval L2-S1 spinal decompression and fusion. Interval devel opment of an 8.8 x 4.5 x 13.4 cm midline posterior subcutaneous fluid collection which is felt to be postsurgical. Persistent severe T12 compression fracture with 4 mm of retropulsion but no evidence of significant canal compromise. Interval development of a superior endplate L1 compression fracture with 30% loss in height. Interval development of subtle S2 marrow edema suggesting a insufficiency fracture. --Appreciate Ortho input and recommendation --Status post L1 kyphoplasty and I&D of lumbar seroma on 01/31/2020 Continued empiric antibiotics with vancomycin, Zosyn Continued to have pain with some radiation in the legs without any fever and/or chills or headache, not controlled with anti-inflammatory Lumbar spine CT to evaluate it further as per Ortho, did not show significant abnormality continued current medications including Decadron, Toradol and as needed IV Dilaudid Has been getting physical therapy and pain medications Pain not reasonably controlled to be discharged MRI ordered by Dr. Street to further evaluate (02/06) Dr. Street reviewed the MRI findings with the patient, confirmed suspicion of a sacral fracture. Recommending a lumbar pelvic fusion by way of extending the rods to the pelvis with iliac bolts. This will provide some stabilization across the fracture site and hopefully then can begin mobilization of the patient with less pain. Patient underwent above-mentioned procedure on 02/08, tolerated well, pt complains of some sore back, plan for rehab after discharge Anemia - Hgb 8.8 - blood loss anemia (post-op expected) and dilutional from IVF - no need for blood transfusion at this time - monitor H&H Urinary incontinence Had this problem before admission Seems worse following admission Complicated by UTI-has been receiving Augmentin to cover UTI and surgery site.Finished Abx course on 02/05. Advised to have outpatient urology appointment as soon as possible on discharge Will not put any medications for now (2) Leukocytosis: Urinary tract infection--POA Urine culture E. coli and is pansensitive Continued Zosyn as above and changed to oral antibiotic Augmentin. Finished Abx course on 02/05. White cell count has normalized Surgical site infection has been ruled out Changed antibiotic to oral Augmentin to cover UTI and surgical wound at the back Antibiotics continued until 02/05 (from 01/28) No increase in white count remains stable as of 02/06/2020 (3) Hypomagnesemia: Initially low at 1.4 after supplement-magnesium remains low at 1.5 We will supplement more-we will recheck Magnesium level is normalized, now 1.8 on 02/07 (4) Hypokalemia: Replace electrolytes as needed monitor -normalized (5) Diabetes mellitus, type II: Hgb A1c 6.4 12/2019 Hold oral agents Utilize NovoLog per protocol while hospitalized (6) HTN (hypertension): BP elevated likely situational secondary to pain Continue amlodipine, carvedilol, hydralazine Pain control increased the dose of hydralazine to 50 mg 3 times daily Blood pressure better controlled-will not start any other medications or increase doses for now Observe (7) CAD (coronary artery disease): Stable Continue aspirin, statin, beta-pamela (8) Rheumatoid arthritis: Previously on Plaquenil and methotrexate Currently not taking meds No acute arthritis involving any joints (9) DVT prophylaxis: Teds/SCDs as per spine Ortho Disposition: As per Primary Team, patient will likely need rehab/ SNF after discharge Admission and Anticipated Discharge Date Admission Date: January 29, 2020 Subjective She is currently sitting in chair, in no acute distress. Denies any fevers, chills, chest pain, shortness of breath, abdominal pain, nausea or vomiting. Also denies any headaches. Says that her back feels sore. Patient understands she may need rehab / SNF after discharge. Review of Systems Review of Systems: All systems reviewed & are unremarkable except as noted in HPI & below Constitutional: no fever and no chills Respiratory: no cough and no dyspnea Cardiovascular: no chest pain and no palpitations Gastrointestinal: no abdominal pain, no nausea and no vomiting Musculoskeletal: + back pain (post surgery) Physical Exam 2 Physical Exam: Physical Exam: Sitting up in a chair, in no acute distress, with some pain involving the lower back (now post-surg.) Constitutional: well developed, well nourished, + mild acute distress (Minimal distress due to back pain) and + obese; not ill appearing Eyes: PERRL, conjunctivae normal, anicteric sclerae ENMT: external ear and nose normal, oropharynx normal Neck: trachea midline, no thyromegaly Respiratory: normal respiratory effort; no respiratory distress Auscultation: lungs clear to auscultation bilaterally, no wheezing, rhonchi or crackles noted Cardiovascular: Rate/Rhythm: regular rate and regular rhythm Heart Sounds: no murmur Gastrointestinal (Abdomen): Inspection/Auscultation: abdomen normal to inspection and normal bowel sounds; abdomen not distended Percussion/Palpation: abdomen soft; abdomen nontender Musculoskeletal: + back pain Neurologic: moves all extremities; no focal motor deficits Remains weak Results & Data Results & Data ([facility]) Vital Signs (Past 12 Hours) Vital Signs Temp Pulse Resp BP Pulse Ox 02/11/20 07:17 36.5 C 59 L 18 188/64 H 96 02/10/20 23:10 36.5 C 66 16 171/66 H 94 Laboratory Results 02/11/20 02/11/20 02/10/20 Range/Units 05:54 05:54 20:13 WBC 9.17 (4.8-10.8) K/uL RBC 2.77 L (4.2-5.4) M/uL Hgb 8.8 L (12.0-16.0) g/dL Hct 26.9 L (37-47) % MCV 97.1 (80-100) fL MCH 31.8 (25-34) pg MCHC 32.7 (32-36) g/dL RDW Std Deviation 52.4 H (36.4-46.3) fL RDW Coeff of Farheen 14.8 H (11.5-14.5) % Plt Count 143 (130-400) K/uL MPV 8.5 (7.4-10.4) fL Sodium 138 (136-145) mmol/L Potassium 3.8 (3.5-5.1) mmol/L Chloride 105 (98-107) mmol/L Carbon Dioxide 26 (21-32) mmol/L Anion Gap 7.0 (3-11) BUN 18 (7-18) mg/dl Creatinine 0.70 (0.6-1.2) mg/dl Est Cr Clr Drug Dosing 91.6 ml/min Est GFR ( Amer) 98.2 Est GFR (Non-Af Amer) 84.8 BUN/Creatinine Ratio 26.1 H (10-20) Glucose 138 H (70-99) mg/dl POC Glucose 194 H (70-99) mg/dl Calcium 8.3 L (8.5-10.1) mg/dl 02/10/20 02/10/20 02/10/20 Range/Units 17:06 12:23 08:04 WBC (4.8-10.8) K/uL RBC (4.2-5.4) M/uL Hgb (12.0-16.0) g/dL Hct (37-47) % MCV (80-100) fL MCH (25-34) pg MCHC (32-36) g/dL RDW Std Deviation (36.4-46.3) fL RDW Coeff of Farheen (11.5-14.5) % Plt Count (130-400) K/uL MPV (7.4-10.4) fL Sodium (136-145) mmol/L Potassium (3.5-5.1) mmol/L Chloride (98-107) mmol/L Carbon Dioxide (21-32) mmol/L Anion Gap (3-11) BUN (7-18) mg/dl Creatinine (0.6-1.2) mg/dl Est Cr Clr Drug Dosing ml/min Est GFR ( Amer) Est GFR (Non-Af Amer) BUN/Creatinine Ratio (10-20) Glucose (70-99) mg/dl POC Glucose 180 H 223 H 149 H (70-99) mg/dl Calcium (8.5-10.1) mg/dl Medications Administered Current Inpatient Medications Acetaminophen (Acetaminophen 500 Mg Tab) 1,000 mg PO Q8H PRN PRN Reason: MILD Pain Scale 1,2,3 & Pre PT Stop: 03/01/20 12:35 Last Admin: 02/10/20 23:52 Dose: 1,000 mg Documented by: Al Hydrox/Mg Hydrox/Simethicone (Aluminum/Magnesium Susp 30 Ml Udc) 30 ml PO Q6H PRN PRN Reason: Dyspepsia Stop: 03/10/20 18:12 Amlodipine Besylate (Norvasc) 5 mg PO [facility] Stop: 02/29/20 08:59 Last Admin: 02/10/20 07:49 Dose: 5 mg Documented by: Aspirin (Ecotrin Ectab) 81 mg PO [facility] Stop: 02/29/20 08:59 Last Admin: 02/10/20 07:50 Dose: 81 mg Documented by: Atorvastatin Calcium (Lipitor) 40 mg PO HS [facility] Stop: 02/28/20 20:59 Last Admin: 02/10/20 21:03 Dose: 40 mg Documented by: Bisacodyl (Bisacodyl 10 Mg Supp) 10 mg SD DAILY PRN PRN Reason: Constipation Stop: 03/10/20 18:12 Carvedilol (Carvedilol 25 Mg Tab) 25 mg PO BID [facility] Stop: 03/11/20 08:59 Last Admin: 02/10/20 21:03 Dose: 25 mg Documented by: Dextrose (Dextrose 50%) 25 - 50 ml IV UD PRN; Protocol PRN Reason: Hypoglycemia Protocol Stop: 02/28/20 17:07 Diphenhydramine HCl (Diphenhydramine Hcl 25 Mg Cap) 25 mg PO Q6H PRN PRN Reason: Allergic Rhinitis/Insomnia Stop: 03/10/20 18:12 Docusate Sodium (Colace) 100 mg PO BID [facility] Stop: 02/28/20 20:59 Last Admin: 02/10/20 21:03 Dose: 100 mg Documented by: Famotidine (Famotidine 20 Mg Tab) 20 mg PO Q12H PRN PRN Reason: Dyspepsia Stop: 03/10/20 18:12 Fluoxetine HCl (Prozac) 40 mg PO QAM [facility] Stop: 02/29/20 08:59 Last Admin: 02/10/20 07:47 Dose: 40 mg Documented by: Furosemide (Lasix) 20 mg PO DAILY PRN PRN Reason: Weight Gain Stop: 02/28/20 15:58 Gabapentin (Neurontin) 300 mg PO TID [facility] Stop: 02/28/20 20:59 Last Admin: 02/10/20 21:03 Dose: 300 mg Documented by: Glucagon (Glucagen) 1 mg SQ UD PRN; Protocol PRN Reason: Hypoglycemia Protocol Stop: 02/28/20 17:07 Glucose (Dex4 Glucose) 4 - 8 tabs PO UD PRN; Protocol PRN Reason: Hypoglycemia Protocol Stop: 02/28/20 17:07 Glucose (Glucose 40%) 15 - 30 gm PO UD PRN; Protocol PRN Reason: Hypoglycemia Protocol Stop: 02/28/20 17:07 Hydralazine HCl (Hydralazine Hcl) 10 mg IV Q6H PRN PRN Reason: SBP > 170 Stop: 03/03/20 17:14 Last Admin: 02/10/20 07:52 Dose: 10 mg Documented by: Hydralazine HCl (Apresoline) 50 mg PO TID [facility] Stop: 03/06/20 13:59 Last Admin: 02/10/20 21:03 Dose: 50 mg Documented by: Hydromorphone HCl (Hydromorphone Inj 0.5 Mg/0.5 Ml Syr) 0.5 mg IV Q3H PRN PRN Reason: moderate pain (scale 4-6) Stop: 02/12/20 15:58 Last Admin: 02/02/20 06:26 Dose: 0.5 mg Documented by: Hydromorphone HCl (Hydromorphone Inj 1 Mg/Ml Syringe) 1 mg IV Q3H PRN PRN Reason: severe pain (scale 7-10) Stop: 02/12/20 15:58 Last Admin: 02/10/20 12:30 Dose: 1 mg Documented by: Hydroxyzine HCl (Hydroxyzine Hcl 25 Mg Tab) 25 mg PO Q8H PRN PRN Reason: Anxiety Stop: 03/10/20 18:12 Dexamethasone Sodium Phosphate (8 mg/ Syringe) 2 mls @ 1 mls/min IV DAILY [facility] Stop: 03/04/20 08:59 Last Admin: 02/10/20 07:53 Dose: 1 mls/min Documented by: Promethazine HCl 12.5 mg/ (Sodium Chloride) 50.5 mls @ 204 mls/hr IV Q6H PRN PRN Reason: Nausea &/or Vomiting Stop: 03/10/20 18:12 Lorazepam (Ativan) 0.5 mg in 1 mls @ 0.5 mls/min IV Q8H PRN PRN Reason: Sedation/Anxiety Stop: 03/10/20 18:12 Influenza Virus Vaccine Quadrival (Do Not Administer Flu Vaccine) 1 ea N/A PRN PRN PRN Reason: Notification Stop: 03/10/20 18:12 Insulin Aspart (Insulin Aspart 100 Units/Ml 3 Ml Pen) 0 units SC ACHS [facility] Stop: 03/10/20 22:29 Last Admin: 02/10/20 21:05 Dose: 3 units Documented by: Insulin Glargine (Lantus Solostar Pen) 7 units SC HS [facility] Stop: 03/03/20 21:09 Last Admin: 02/10/20 21:04 Dose: 7 units Documented by: Levothyroxine Sodium (Synthroid) 25 mcg PO DAILYBB [facility] Stop: 02/29/20 06:29 Last Admin: 02/11/20 05:51 Dose: 25 mcg Documented by: Lorazepam (Lorazepam 0.5 Mg Tab) 0.5 mg PO Q8H PRN PRN Reason: Sedation/Anxiety Stop: 03/10/20 18:12 Magnesium Hydroxide (Magnesium Hydroxide Susp 30 Ml Udc) 30 ml PO DAILY PRN PRN Reason: Constipation Stop: 03/10/20 18:12 Magnesium Oxide (Mag-Ox) 400 mg PO QAM [facility] Stop: 03/02/20 11:59 Last Admin: 02/10/20 07:48 Dose: 400 mg Documented by: Metoclopramide HCl (Metoclopramide Hcl Inj 5 Mg/Ml 2 Ml Vial) 10 mg IV Q6H PRN PRN Reason: Nausea &/or Vomiting Stop: 03/10/20 18:12 Miscellaneous (Carbohydrates For Hypoglycemia) 15 - 30 gm PO UD PRN PRN Reason: Hypoglycemia Protocol Stop: 02/28/20 17:07 Naloxone HCl (Naloxone Hcl 0.4 Mg/1 Ml Vial/Carp) 0.1 mg IV Q5M PRN; Protocol PRN Reason: Oversedation/Resp Depression Stop: 03/10/20 18:12 Nitroglycerin (Nitrostat) 0.4 mg SL Q5M PRN PRN Reason: CHEST PAIN Stop: 02/28/20 16:11 Ondansetron HCl (Ondansetron Inj 2 Mg/Ml 2 Ml Vial) 4 mg IV Q6H PRN PRN Reason: Nausea &/or Vomiting Stop: 03/10/20 18:12 Ondansetron HCl (Ondansetron 4 Mg Od Tab) 4 mg PO Q6H PRN PRN Reason: Nausea Stop: 03/10/20 18:12 Oxycodone HCl (Oxycodone Hcl Ir 5 Mg Tab (Immediate Release)) 5 - 10 mg PO Q4H PRN PRN Reason: Moderate-Severe Pain Stop: 02/12/20 15:58 Last Admin: 02/11/20 06:07 Dose: 10 mg Documented by: Pantoprazole Sodium (Protonix) [facility] [place] [facility] Stop: 02/29/20 08:59 Last Admin: 02/10/20 07:47 Dose: 40 mg Documented by: Pneumococcal Polyvalent Vaccine (Do Not Administer Pneumococcal Vaccine) 1 ea N/A PRN PRN PRN Reason: Notification Stop: 03/10/20 18:12 Senna/Docusate Sodium (Docusate Sodium/Senna 50/8.6mg Tab) 2 tab PO [facility] Stop: 03/10/20 20:59 Last Admin: 02/10/20 21:02 Dose: 2 tab Documented by: Sodium Biphosphate/Sodium Phosphate (Sod Phosphate/Sod Biphosphate Enema 132 Ml Btl) 132 ml SD ONE PRN PRN Reason: Constipation Stop: 03/10/20 18:12 Terazosin HCl (Hytrin) 2 mg PO [facility] Stop: 02/28/20 20:59 Last Admin: 02/10/20 21:04 Dose: 2 mg Documented by: Tramadol HCl (Tramadol Hcl 50 Mg Tablet) 50 - 100 mg PO Q4H PRN PRN Reason: Moderate-Severe Pain Stop: 02/28/20 15:58 Last Admin: 02/10/20 10:25 Dose: 100 mg Documented by:
[2020-02-11] MEDS: PANTOprazole 40 MG TAB PO SCH (07:58)
[2020-02-11] MEDS: MAGNESIUM OXIDE 400 MG TAB PO SCH (07:58)
[2020-02-11] MEDS: ASPIRIN 81 MG ECTAB PO SCH (07:58)
[2020-02-11] MEDS: FLUOXETINE HCL 20 MG CAP PO SCH (07:58)
[2020-02-11] MEDS: HydrALAZINE HCL 20 MG/ML VIAL IV PRN ×2 (07:59→22:36)
[2020-02-11] MEDS: AMLODIPINE BESYLATE 5 MG TAB PO SCH (07:59)
[2020-02-11] MEDS: DOCUSATE SODIUM 100 MG CAP PO SCH ×2 (07:59→20:53)
[2020-02-11] MEDS: HydrALAZINE TAB 50 MG TAB PO SCH ×3 (07:59→20:52)
[2020-02-11] MEDS: carvediloL 25 MG TAB PO SCH ×2 (07:59→20:52)
[2020-02-11] MEDS: GABAPENTIN 300 MG CAP PO SCH ×3 (07:59→20:51)
--- NOTE | 2020-02-11 08:36 | Orthopedic Progress Note ---
Date of Service February 11, 2020 Assessment & Plan (1) Sacral fracture: Patient is currently bed to chair. Maintain BRITTNEY drains x2. Continue with aggressive bowel regimen. Patient is agreeable to possible SNF upon discharge. Will arrange this tomorrow. DVT prophylaxis is in the form of teds and SCDs. Admission and Anticipated Discharge Date Admission Date: January 29, 2020 Supervising Physician Co-Signing Physician Notes Dr. Rashaad Avila [place] is postoperative day 2 extension of lumbar fusion into the pelvis. Denies leg pain. Back pain is described as a burning. H&H are 8.8 and 26.9 respectively this morning. BRITTNEY drain output #1 is 15 cc over the last shift. BRITTNEY drain output #2 is 30 cc output over the last 8 hours. She has no other complaints. Currently she is bed to chair restriction. Review of Systems Review of Systems: All systems reviewed & are unremarkable except as noted in HPI & below Physical Exam Physical Exam: She is lying in bed. She is in no obvious distress. Lumbar dressing is clean dry and intact with BRITTNEY drains x2 that are intact and functioning. Alert and oriented x3. Lumbar dressing is clean dry and intact. BRITTNEY drain x2 intact. Lower extremities calves soft nontender bilaterally. Strength is intact bilateral lower extremities. Results & Data ([facility]) Vital Signs (Past 12 Hours) Vital Signs Temp Pulse Resp BP Pulse Ox 02/11/20 07:17 36.5 C 59 L 18 188/64 H 96 02/10/20 23:10 36.5 C 66 16 171/66 H 94
[2020-02-11] MEDS: DEXAMETHASONE SOD PHOSPHATE 8 MG in SYRINGE 0 ML IV SCH (09:30)
[2020-02-11] MEDS: INSULIN ASPART 100 UNITS/ML 3 ML PEN SC SCH ×4 (09:59→20:54)
[2020-02-11] MEDS: TRAMADOL HCL 50 MG TABLET PO PRN (13:03)
[2020-02-11] MEDS: DOCUSATE SODIUM/SENNA 50/8.6MG TAB PO SCH (20:50)
[2020-02-11] MEDS: ATORVASTATIN 40 MG TAB PO SCH (20:50)
[2020-02-11] MEDS: TERAZOSIN HCL 1 MG CAP PO SCH (20:50)
[2020-02-11] MEDS: INSULIN GLARGINE SOLOSTAR 100 UNITS/ML 3 ML PEN SC SCH (20:54)
[2020-02-12] MEDS: LEVOTHYROXINE SODIUM 25 MCG TABLET PO SCH (05:43)
[2020-02-12] MEDS: OXYCODONE HCL IR 5 MG TAB (IMMEDIATE RELEASE) PO PRN ×2 (05:43→10:51)
[2020-02-12 06:06] LABS: Hemoglobin 8.5 g/dL (12.0-16.0); Mean Corpuscular Hemoglobin 31.8 pg (25-34); Mean Corpuscular Hgb Conc 32.7 g/dL (32-36); Mean Corpuscular Volume 97.4 fL (80-100); Mean Platelet Volume 8.5 fL (7.4-10.4); Platelet Count 165 K/uL (130-400); RDW Standard Deviation 52.4 fL (36.4-46.3); Red Blood Count 2.67 M/uL (4.2-5.4); White Blood Count 8.58 K/uL (4.8-10.8)
[2020-02-12] MEDS: HydrALAZINE HCL 20 MG/ML VIAL IV PRN (08:10)
[2020-02-12] MEDS: HydrALAZINE TAB 50 MG TAB PO SCH ×3 (08:12→22:13)
[2020-02-12] MEDS: DOCUSATE SODIUM 100 MG CAP PO SCH ×2 (08:12→22:10)
[2020-02-12] MEDS: PANTOprazole 40 MG TAB PO SCH (08:13)
[2020-02-12] MEDS: carvediloL 25 MG TAB PO SCH ×2 (08:13→22:12)
[2020-02-12] MEDS: GABAPENTIN 300 MG CAP PO SCH ×3 (08:13→22:13)
[2020-02-12] MEDS: ASPIRIN 81 MG ECTAB PO SCH (08:13)
[2020-02-12] MEDS: DEXAMETHASONE SOD PHOSPHATE 8 MG in SYRINGE 0 ML IV SCH (08:13)
[2020-02-12] MEDS: AMLODIPINE BESYLATE 5 MG TAB PO SCH (08:13)
[2020-02-12] MEDS: MAGNESIUM OXIDE 400 MG TAB PO SCH (08:13)
[2020-02-12] MEDS: FLUOXETINE HCL 20 MG CAP PO SCH (08:13)
--- NOTE | 2020-02-12 09:14 | Hospitalist Progress Note ---
Date of Service February 12, 2020 Assessment & Plan (1) Postoperative back pain: L1 compression fracture Lumbar seroma Sacral fracture S/P L3-S1 decompression and fusion on 01/[address] --Lumbar MRI:Interval L2-S1 spinal decompression and fusion. Interval devel opment of an 8.8 x 4.5 x 13.4 cm midline posterior subcutaneous fluid collection which is felt to be postsurgical. Persistent severe T12 compression fracture with 4 mm of retropulsion but no evidence of significant canal compromise. Interval development of a superior endplate L1 compression fracture with 30% loss in height. Interval development of subtle S2 marrow edema suggesting a insufficiency fracture. --Appreciate Ortho input and recommendation --Status post L1 kyphoplasty and I&D of lumbar seroma on 01/31/2020 Continued empiric antibiotics with vancomycin, Zosyn Continued to have pain with some radiation in the legs without any fever and/or chills or headache, not controlled with anti-inflammatory Lumbar spine CT to evaluate it further as per Ortho, did not show significant abnormality continued current medications including Decadron, Toradol and as needed IV Dilaudid Has been getting physical therapy and pain medications Pain not reasonably controlled to be discharged MRI ordered by Dr. Street to further evaluate (02/06) Dr. Street reviewed the MRI findings with the patient, confirmed suspicion of a sacral fracture. Recommending a lumbar pelvic fusion by way of extending the rods to the pelvis with iliac bolts. This will provide some stabilization across the fracture site and hopefully then can begin mobilization of the patient with less pain. Patient underwent above-mentioned procedure on 02/08, tolerated well, pt complains of some sore back, plan for rehab after discharge Anemia - Hgb 8.8 - blood loss anemia (post-op expected) and dilutional from IVF - no need for blood transfusion at this time - monitor H&H Urinary incontinence Had this problem before admission Seems worse following admission Complicated by UTI-has been receiving Augmentin to cover UTI and surgery site.Finished Abx course on 02/05. Advised to have outpatient urology appointment as soon as possible on discharge Will not put any medications for now (2) Leukocytosis: Urinary tract infection--POA Urine culture E. coli and is pansensitive Continued Zosyn as above and changed to oral antibiotic Augmentin. Finished Abx course on 02/05. White cell count has normalized Surgical site infection has been ruled out Changed antibiotic to oral Augmentin to cover UTI and surgical wound at the back Antibiotics continued until 02/05 (from 01/28) No increase in white count remains stable as of 02/06/2020 (3) Hypomagnesemia: Initially low at 1.4 after supplement-magnesium remains low at 1.5 We will supplement more-we will recheck Magnesium level is normalized, now 1.8 on 02/07 (4) Hypokalemia: Replace electrolytes as needed monitor -normalized (5) Diabetes mellitus, type II: Hgb A1c 6.4 12/2019 Hold oral agents Utilize NovoLog per protocol while hospitalized (6) HTN (hypertension): BP elevated likely situational secondary to pain Continue amlodipine, carvedilol, hydralazine Pain control increased the dose of hydralazine to 50 mg 3 times daily Blood pressure better controlled-will not start any other medications or increase doses for now Observe (7) CAD (coronary artery disease): Stable Continue aspirin, statin, beta-pamela (8) Rheumatoid arthritis: Previously on Plaquenil and methotrexate Currently not taking meds No acute arthritis involving any joints (9) DVT prophylaxis: Teds/SCDs as per spine Ortho Disposition: As per Primary Team, patient will likely need rehab/ SNF after discharge Admission and Anticipated Discharge Date Admission Date: January 29, 2020 Subjective No acute overnight. She is currently sitting in chair, in no acute distress. Denies any fevers, chills, chest pain, shortness of breath, abdominal pain, nausea or vomiting. Also denies any headaches. Says that her back feels sore. Patient understands she may need rehab / SNF after discharge. Review of Systems Review of Systems: All systems reviewed & are unremarkable except as noted in HPI & below Constitutional: no fever and no chills Respiratory: no cough and no dyspnea Cardiovascular: no chest pain and no palpitations Gastrointestinal: no abdominal pain, no nausea and no vomiting Musculoskeletal: + back pain (post surgery) Physical Exam Physical Exam: Physical Exam: Sitting up in a chair, in no acute distress, with some pain involving the lower back (now post-surg.) Constitutional: well developed, well nourished, + mild acute distress (Minimal distress due to back pain) and + obese; not ill appearing Eyes: PERRL, conjunctivae normal, anicteric sclerae ENMT: external ear and nose normal, oropharynx normal Neck: trachea midline, no thyromegaly Respiratory: normal respiratory effort; no respiratory distress Auscultation: lungs clear to auscultation bilaterally, no wheezing, rhonchi or crackles noted Cardiovascular: Rate/Rhythm: regular rate and regular rhythm Heart Sounds: no murmur Gastrointestinal (Abdomen): Inspection/Auscultation: abdomen normal to inspection and normal bowel sounds; abdomen not distended Percussion/Palpation: abdomen soft; abdomen nontender Musculoskeletal: + back pain Neurologic: moves all extremities; no focal motor deficits Remains weak Results & Data Results & Data ([facility]) Vital Signs (Past 12 Hours) Vital Signs Temp Pulse Resp BP Pulse Ox 02/12/20 07:03 36.8 C 64 16 183/63 H 98 02/11/20 23:08 36.9 C 68 16 173/53 H 97 02/11/20 22:28 66 184/77 H Laboratory Results 02/12/20 02/12/20 02/11/20 Range/Units 08:10 05:52 20:44 WBC 8.58 (4.8-10.8) K/uL RBC 2.67 L (4.2-5.4) M/uL Hgb 8.5 L (12.0-16.0) g/dL Hct 26.0 L (37-47) % MCV 97.4 (80-100) fL MCH 31.8 (25-34) pg MCHC 32.7 (32-36) g/dL RDW Std Deviation 52.4 H (36.4-46.3) fL RDW Coeff of Farheen 15.0 H (11.5-14.5) % Plt Count 165 (130-400) K/uL MPV 8.5 (7.4-10.4) fL POC Glucose 136 H 248 H (70-99) mg/dl Crossmatch 02/11/20 02/11/20 02/08/20 Range/Units 17:09 11:44 15:17 WBC (4.8-10.8) K/uL RBC (4.2-5.4) M/uL Hgb (12.0-16.0) g/dL Hct (37-47) % MCV (80-100) fL MCH (25-34) pg MCHC (32-36) g/dL RDW Std Deviation (36.4-46.3) fL RDW Coeff of Farheen (11.5-14.5) % Plt Count (130-400) K/uL MPV (7.4-10.4) fL POC Glucose 211 H 207 H (70-99) mg/dl Crossmatch See Detail Medications Administered Current Inpatient Medications Acetaminophen (Acetaminophen 500 Mg Tab) 1,000 mg PO Q8H PRN PRN Reason: MILD Pain Scale 1,2,3 & Pre PT Stop: 03/01/20 12:35 Last Admin: 02/10/20 23:52 Dose: 1,000 mg Documented by: Al Hydrox/Mg Hydrox/Simethicone (Aluminum/Magnesium Susp 30 Ml Udc) 30 ml PO Q6H PRN PRN Reason: Dyspepsia Stop: 03/10/20 18:12 Amlodipine Besylate (Norvasc) 5 mg PO QAM [facility] Stop: 02/29/20 08:59 Last Admin: 02/12/20 08:13 Dose: 5 mg Documented by: Aspirin (Ecotrin Ectab) 81 mg PO QAM [facility] Stop: 02/29/20 08:59 Last Admin: 02/12/20 08:13 Dose: 81 mg Documented by: Atorvastatin Calcium (Lipitor) 40 mg PO HS [facility] Stop: 02/28/20 20:59 Last Admin: 02/11/20 20:50 Dose: 40 mg Documented by: Bisacodyl (Bisacodyl 10 Mg Supp) 10 mg WI DAILY PRN PRN Reason: Constipation Stop: 03/10/20 18:12 Carvedilol (Carvedilol 25 Mg Tab) 25 mg PO BID [facility] Stop: 03/11/20 08:59 Last Admin: 02/12/20 08:13 Dose: 25 mg Documented by: Dextrose (Dextrose 50%) 25 - 50 ml IV UD PRN; Protocol PRN Reason: Hypoglycemia Protocol Stop: 02/28/20 17:07 Diphenhydramine HCl (Diphenhydramine Hcl 25 Mg Cap) 25 mg PO Q6H PRN PRN Reason: Allergic Rhinitis/Insomnia Stop: 03/10/20 18:12 Docusate Sodium (Colace) 100 mg PO BID [facility] Stop: 02/28/20 20:59 Last Admin: 02/12/20 08:12 Dose: 100 mg Documented by: Famotidine (Famotidine 20 Mg Tab) 20 mg PO Q12H PRN PRN Reason: Dyspepsia Stop: 03/10/20 18:12 Fluoxetine HCl (Prozac) 40 mg PO QAM [facility] Stop: 02/29/20 08:59 Last Admin: 02/12/20 08:13 Dose: 40 mg Documented by: Furosemide (Lasix) 20 mg PO DAILY PRN PRN Reason: Weight Gain Stop: 02/28/20 15:58 Gabapentin (Neurontin) 300 mg PO TID [facility] Stop: 02/28/20 20:59 Last Admin: 02/12/20 08:13 Dose: 300 mg Documented by: Glucagon (Glucagen) 1 mg SQ UD PRN; Protocol PRN Reason: Hypoglycemia Protocol Stop: 02/28/20 17:07 Glucose (Dex4 Glucose) 4 - 8 tabs PO UD PRN; Protocol PRN Reason: Hypoglycemia Protocol Stop: 02/28/20 17:07 Glucose (Glucose 40%) 15 - 30 gm PO UD PRN; Protocol PRN Reason: Hypoglycemia Protocol Stop: 02/28/20 17:07 Hydralazine HCl (Hydralazine Hcl) 10 mg IV Q6H PRN PRN Reason: SBP > 170 Stop: 03/03/20 17:14 Last Admin: 02/12/20 08:10 Dose: 10 mg Documented by: Hydralazine HCl (Apresoline) 50 mg PO TID [facility] Stop: 03/06/20 13:59 Last Admin: 02/12/20 08:12 Dose: 50 mg Documented by: Hydromorphone HCl (Hydromorphone Inj 0.5 Mg/0.5 Ml Syr) 0.5 mg IV Q3H PRN PRN Reason: moderate pain (scale 4-6) Stop: 02/12/20 15:58 Last Admin: 02/02/20 06:26 Dose: 0.5 mg Documented by: Hydromorphone HCl (Hydromorphone Inj 1 Mg/Ml Syringe) 1 mg IV Q3H PRN PRN Reason: severe pain (scale 7-10) Stop: 02/12/20 15:58 Last Admin: 02/10/20 12:30 Dose: 1 mg Documented by: Hydroxyzine HCl (Hydroxyzine Hcl 25 Mg Tab) 25 mg PO Q8H PRN PRN Reason: Anxiety Stop: 03/10/20 18:12 Dexamethasone Sodium Phosphate (8 mg/ Syringe) 2 mls @ 1 mls/min IV DAILY [facility] Stop: 03/04/20 08:59 Last Admin: 02/12/20 08:13 Dose: 1 mls/min Documented by: Promethazine HCl 12.5 mg/ (Sodium Chloride) 50.5 mls @ 204 mls/hr IV Q6H PRN PRN Reason: Nausea &/or Vomiting Stop: 03/10/20 18:12 Lorazepam (Ativan) 0.5 mg in 1 mls @ 0.5 mls/min IV Q8H PRN PRN Reason: Sedation/Anxiety Stop: 03/10/20 18:12 Influenza Virus Vaccine Quadrival (Do Not Administer Flu Vaccine) 1 ea N/A PRN PRN PRN Reason: Notification Stop: 03/10/20 18:12 Insulin Aspart (Insulin Aspart 100 Units/Ml 3 Ml Pen) 0 units SC ACHS [facility] Stop: 03/10/20 22:29 Last Admin: 02/11/20 20:54 Dose: 5 units Documented by: Insulin Glargine (Lantus Solostar Pen) 7 units SC HS [facility] Stop: 03/03/20 21:09 Last Admin: 02/11/20 20:54 Dose: 7 units Documented by: Levothyroxine Sodium (Synthroid) 25 mcg PO DAILYBB [facility] Stop: 02/29/20 06:29 Last Admin: 02/12/20 05:43 Dose: 25 mcg Documented by: Lorazepam (Lorazepam 0.5 Mg Tab) 0.5 mg PO Q8H PRN PRN Reason: Sedation/Anxiety Stop: 03/10/20 18:12 Magnesium Hydroxide (Magnesium Hydroxide Susp 30 Ml Udc) 30 ml PO DAILY PRN PRN Reason: Constipation Stop: 03/10/20 18:12 Magnesium Oxide (Mag-Ox) 400 mg PO QAM [facility] Stop: 03/02/20 11:59 Last Admin: 02/12/20 08:13 Dose: 400 mg Documented by: Metoclopramide HCl (Metoclopramide Hcl Inj 5 Mg/Ml 2 Ml Vial) 10 mg IV Q6H PRN PRN Reason: Nausea &/or Vomiting Stop: 03/10/20 18:12 Miscellaneous (Carbohydrates For Hypoglycemia) 15 - 30 gm PO UD PRN PRN Reason: Hypoglycemia Protocol Stop: 02/28/20 17:07 Naloxone HCl (Naloxone Hcl 0.4 Mg/1 Ml Vial/Carp) 0.1 mg IV Q5M PRN; Protocol PRN Reason: Oversedation/Resp Depression Stop: 03/10/20 18:12 Nitroglycerin (Nitrostat) 0.4 mg SL Q5M PRN PRN Reason: CHEST PAIN Stop: 02/28/20 16:11 Ondansetron HCl (Ondansetron Inj 2 Mg/Ml 2 Ml Vial) 4 mg IV Q6H PRN PRN Reason: Nausea &/or Vomiting Stop: 03/10/20 18:12 Ondansetron HCl (Ondansetron 4 Mg Od Tab) 4 mg PO Q6H PRN PRN Reason: Nausea Stop: 03/10/20 18:12 Oxycodone HCl (Oxycodone Hcl Ir 5 Mg Tab (Immediate Release)) 5 - 10 mg PO Q4H PRN PRN Reason: Moderate-Severe Pain Stop: 02/12/20 15:58 Last Admin: 02/12/20 05:43 Dose: 10 mg Documented by: Pantoprazole Sodium (Protonix) [address] [facility] Stop: 02/29/20 08:59 Last Admin: 02/12/20 08:13 Dose: 40 mg Documented by: Pneumococcal Polyvalent Vaccine (Do Not Administer Pneumococcal Vaccine) 1 ea N/A PRN PRN PRN Reason: Notification Stop: 03/10/20 18:12 Senna/Docusate Sodium (Docusate Sodium/Senna 50/8.6mg Tab) 2 tab PO [facility] Stop: 03/10/20 20:59 Last Admin: 02/11/20 20:50 Dose: 2 tab Documented by: Sodium Biphosphate/Sodium Phosphate (Sod Phosphate/Sod Biphosphate Enema 132 Ml Btl) 132 ml WI ONE PRN PRN Reason: Constipation Stop: 03/10/20 18:12 Terazosin HCl (Hytrin) 2 mg PO [facility] Stop: 02/28/20 20:59 Last Admin: 02/11/20 20:50 Dose: 2 mg Documented by: Tramadol HCl (Tramadol Hcl 50 Mg Tablet) 50 - 100 mg PO Q4H PRN PRN Reason: Moderate-Severe Pain Stop: 02/28/20 15:58 Last Admin: 02/11/20 13:03 Dose: 100 mg Documented by:
[2020-02-12] MEDS: INSULIN ASPART 100 UNITS/ML 3 ML PEN SC SCH ×4 (09:35→22:15)
--- NOTE | 2020-02-12 13:37 | Orthopedic Progress Note ---
Date of Service February 12, 2020 Assessment & Plan (1) Sacral fracture: Admission and Anticipated Discharge Date Admission Date: January 29, 2020 This time the patient's noted significant provement after stabilization of the pelvis. She is to continue with undergo light activity only. Bed to chair transfers walking short distances. To lift no more than 5 pounds. We are hoping for rehab placement in the next day or so. Subjective Back pain improved leg symptoms improved. Physical Exam Physical Exam: Patient appears comfortable sitting at the bedside chair. She has good strength testing. Results & Data ([facility]) Vital Signs (Past 12 Hours) Vital Signs Temp Pulse Resp BP Pulse Ox 02/12/20 07:03 36.8 C 64 16 183/63 H 98
[2020-02-12] MEDS: TRAMADOL HCL 50 MG TABLET PO PRN (19:26)
[2020-02-12] MEDS: DOCUSATE SODIUM/SENNA 50/8.6MG TAB PO SCH (22:10)
[2020-02-12] MEDS: TERAZOSIN HCL 1 MG CAP PO SCH (22:11)
[2020-02-12] MEDS: ATORVASTATIN 40 MG TAB PO SCH (22:12)
[2020-02-12] MEDS: INSULIN GLARGINE SOLOSTAR 100 UNITS/ML 3 ML PEN SC SCH (22:14)
[2020-02-12] MEDS: ACETAMINOPHEN 500 MG TAB PO PRN (23:34)
[2020-02-13] MEDS: LEVOTHYROXINE SODIUM 25 MCG TABLET PO SCH (05:55)
[2020-02-13] MEDS: TRAMADOL HCL 50 MG TABLET PO PRN ×3 (05:58→13:47)
--- NOTE | 2020-02-13 08:31 | Discharge Summary ---
Date of Service February 13, 2020 Admission HPI Per Admitting Provider This is a 74-year-old female status post multilevel lumbar decompression and fusion approximate 2 weeks ago. She states past few days she has had significant thoracolumbar back pain that is markedly limited her ability to stand and ambulate. She presents the emergency room today with worsening symptoms. She denies any numbness or tingling into the lower extremities. Denies any radicular complaints. Principal Diagnosis L1 compression fracture with sacral insufficiency fractures Discharge Data Allergies Allergy/AdvReac Type Severity Reaction Status Date / Time nadolol AdvReac Unknown GI UPSET Verified 02/09/20 12:22 nitroglycerin AdvReac Unknown HEADACHE Verified 02/09/20 12:22 NSAIDS (Non-Steroidal AdvReac Unknown GI UPSET Verified 02/09/20 12:22 Anti-Inflamma Consultations 01/29/20 13:38 ED Decision to Admit Stat 01/29/20 15:59 Consult Internal Medicine Routine 02/09/20 18:13 Consult Case Management - Discharge Planning Routine Procedures Performed Operation Date: 01/31/20 09:05 Actual Procedures p L1 Kyphoplasty; - Rashaad Street DO s Lumbar Seroma Incision and Drainage - Rashaad Street DO Operation Date: 02/09/20 12:15 Actual Procedures p Lumbar Pelvic Fusion with Application of Bone Morphogenetic Protein(Not Applicable) - Rashaad Street DO Ordered Studies 01/29/20 10:16 MR lumbar spine wo con Stat 01/31/20 09:05 FL fluoroscopy <1hr Routine FL lumbar spine 2-3V Routine 02/04/20 11:31 CT lumbar spine wo con Routine 02/07/20 10:31 MR lumbar spine wo con Urgent 02/09/20 12:15 FL fluoroscopy <1hr Routine FL lumbar spine 2-3V Routine Hospital Course (1) Sacral fracture: Patient was admitted to hospital with marked decline in status with worsening back pain and inability to ambulate. Imaging demonstrated large hematoma and evidence of an L1 compression fracture. She underwent kyphoplasty of L1 with evacuation of hematoma. Postoperatively she began physical therapy and ambulating but over the course of 2 days had recurrence of severe pain now at the lumbosacral region. This failed to improve imaging demonstrated evidence of a sacral fracture consistent with bilateral insufficiency fractures of the ala. Subsequently we like to go back to surgery extend the fusion into the pelvis to stabilize across the fracture and provide some relief. She responded to this wonderfully. She was able to transfer and ambulate more comfortably. Subsequently she was discharged to rehab. Discharge orders instructions were on the chart for further review. Total Time Total Time Spent Total Time Spent (In Minutes): 20 minutes Discharge Plan Discharge Items Patient Disposition: Transfer Inpatient Rehab Fac Reason For Visit: COMPRESSION FRACTURE Discharge Diagnosis: Compression fracture Activity: As commented below Non-emergency contact: Primary Care Provider Call non-emergency contact if: you have any medication questions Follow-up/Referrals: Derrek Sparks MD [Primary Care Provider] - Diet: Regular Addtl Attending Provider Instructions: ACTIVITY RECOMMENDATIONS: SELF CARE INSTRUCTIONS AFTER THORACIC/LUMBAR FUSIONS 1. You may walk to your tolerance. It is good exercise for your legs and back. Expect some back and intermittent leg aches and pains. 2. You may perform "counter-top" level activities (make a sandwich, gal with a project, etc.). 3. No bending or lifting of more than 10 pounds or back twisting of any nature (roll like a log when turning in bed). 4. You may ride in a car for 20-30 minutes at a time. No driving until after your first visit with your doctor. 5. Frequent changes of position and restricting sitting to 30 minutes at a time will help limit the amount of back spasms and stiffness you may experience. 6. You may discontinue the use of ambulatory aids (cane, crutches, etc.) once your strength and confidence allow. 7. You may business control manager the shower and let water strike your incision when you arrive home at least once daily. Do not take a tub bath, sit in a hot tub or go into a swimming pool until after your first recheck in the office. SPECIAL CARE INSTRUCTIONS: VERY IMPORTANT TO READ AND REVIEW A. Your surgical incision has been closed with a cosmetic suture under the skin that will dissolve in about 6 weeks. In 14 days, you can use a pair of clean scissors and cut the suture that is left outside of the skin at the ends of your incision. 1. The small skin tapes can be removed 7 days after surgery if they have not fallen off by that point. 2. You may keep the wound open to air as much as possible to promote healing after post-op day number 5 unless told otherwise by your doctor. 3. If you think the wound looks like it is becoming infected (redness or worsening drainage) and/or you are experiencing fever, chill or worsening back pain and muscle spasms, contact the office so that we may evaluate you as soon as possible. B. Complications are uncommon, but please contact us if you have any signs or symptoms of: 1. wound infection (fever higher than 102.5 degrees F, redness, separation of wound, drainage, or increasing pain from the incision) 2. blood clots in legs (pain, swelling, redness and warmth in legs) 3. urinary tract infection (fever higher than 102.5 degrees F, burning upon urination or increased frequency of urination) 4. nerve problems (inability to walk on your toes or heels, numbness, loss of bowel or bladder control) 5. any other symptoms that concern you C. Please call the office at if you have any concerns or questions about your operation or recovery. D. No smoking! Smoking drastically decreases the chance of a solid fusion. E. Do not take any anti-inflammatory medications (Indocin, Advil, Motrin, Aspirin, Naprosyn, etc.) as these may inhibit the chance of a solid fusion. Tylenol is okay to take for pain. MANAGING PAIN AFTER SPINAL SURGERY 1. Narcotic medication is intended for short-term use and will be provided for surgical pain. Surgical pain usually lasts for a period of 4-6 weeks. Narcotic medication includes Percocet, Vicodin, Darvocet, Tylenol #3 or Lortab. 2. Longer-term pain is more appropriately treated with non-narcotic medication such as Tylenol ES. 3. Muscle spasm is not appropriately treated with narcotics. Muscle relaxers such as Soma, Flexeril or Skelaxin can be used along with Tylenol ES. 4. Remember that we all live with some "aches and pains". This is not unusual or uncommon after an injury or as we get older. a. Back pain is expected and may include muscle spasms for 4 to 6 weeks after surgery. The pain should gradually improve. If the pain worsens for no apparent reason, please contact the office. b. Intermittent leg pain may also be experienced and should not be concerned about unless it worsens for no apparent reason. If so, please contact the office. 5. We will provide appropriate medication within the normal guidelines of their prescribed use. We will also be very cautious and aware of potential abuse and extended duration of patients' medication needs. a. Pain medications are for your comfort and to assist with sleep and rest so that the tissue can heal. They are not provided in order to return to normal activity and should not be used through the day. To do so or worsening pain at night can result from ongoing tissue damage and development of tolerance to the prescribed medicine. 6. Please allow 2-3 days to process refills. Prescriptions will not be mailed but must be picked up at the office. FOLLOW UP VISIT: Keep your scheduled follow-up appointment. Any questions, please call the office at . Pending Studies at Discharge: No Stand-Alone Forms: My Smartsheet, Smoking Cessation Skilled Items Patient informed of condition?: Yes DNR: No Discharge Level of Care: Acute rehab Communicable Disease: No Discharge Prognosis: Improving Lines: None Urinary Catheter: No Medications and DC Order Prescriptions: New tramadol 50 mg tablet 50 mg PO Q6H PRN (Reason: pain, moderate) Qty: 20 RF: 0 tramadol 50 mg tablet 50 mg PO Q6H PRN (Reason: pain, moderate) Qty: 30 RF: 0 Continued fluoxetine [Prozac] 40 mg Capsule 40 mg PO QAM RF: 0 atorvastatin 40 mg Tablet 40 mg PO HS RF: 0 metformin 500 mg Tablet 500 mg PO BID RF: 0 carvedilol 6.25 mg Tablet 12.5 mg PO BID RF: 0 nitroglycerin 400 mcg/spray Aerosol,[place] 1 dose Translingual DIRECTED PRN (Reason: Chest Pain) RF: 0 aspirin [Aspirin Low Dose] 81 mg Tablet,Delayed Release (Dr/Ec) 81 mg PO QAM RF: 0 terazosin 2 mg Capsule 2 mg PO HS RF: 0 pantoprazole 40 mg tablet,delayed release (DR/EC) 40 mg PO QAM RF: 0 gabapentin 300 mg Capsule 300 mg PO TID RF: 0 furosemide [Lasix] 20 mg Tablet 20 mg PO DAILY PRN (Reason: Weight Gain) RF: 0 amlodipine 5 mg Tablet 5 mg PO QAM RF: 0 betamethasone dipropionate 0.05 % Cream 1 applic TOPICAL BID PRN (Reason: redness) RF: 0 hydralazine 25 mg tablet 25 mg PO TID RF: 0 methylprednisolone 4 mg tablets,dose pack RF: 0 levothyroxine 25 mcg Capsule 25 mcg PO QAM RF: 0 tramadol 50 mg tablet 50 mg PO Q6H PRN (Reason: pain, moderate) Qty: 30 RF: 0 Discharge Orders: Discharge Order (Routine); Ordered 02/13/20 Ordered By: Rashaad Street Admission Data Admit Date/Time: 01/29/20 14:27 Attending Provider: Rashaad Street Admit Provider: Rashaad Street Primary Care Provider: Derrek Sparks Other Providers: [place] ; Mychal Marcum ; Rashaad Street ; Juan Lora ; [facility] ; [place]
[2020-02-13] MEDS: DEXAMETHASONE SOD PHOSPHATE 8 MG in SYRINGE 0 ML IV SCH (08:32)
[2020-02-13] MEDS: GABAPENTIN 300 MG CAP PO SCH ×2 (08:32→13:48)
[2020-02-13] MEDS: carvediloL 25 MG TAB PO SCH (08:33)
[2020-02-13] MEDS: AMLODIPINE BESYLATE 5 MG TAB PO SCH (08:33)
[2020-02-13] MEDS: HydrALAZINE TAB 50 MG TAB PO SCH ×2 (08:33→13:48)
[2020-02-13] MEDS: MAGNESIUM OXIDE 400 MG TAB PO SCH (08:33)
[2020-02-13] MEDS: ASPIRIN 81 MG ECTAB PO SCH (08:33)
[2020-02-13] MEDS: FLUOXETINE HCL 20 MG CAP PO SCH (08:33)
[2020-02-13] MEDS: PANTOprazole 40 MG TAB PO SCH (08:34)
[2020-02-13] MEDS: ACETAMINOPHEN 500 MG TAB PO PRN (08:36)
[2020-02-13] MEDS: DOCUSATE SODIUM 100 MG CAP PO SCH (08:39)
[2020-02-13] MEDS: INSULIN ASPART 100 UNITS/ML 3 ML PEN SC SCH ×2 (08:39→12:42)
== END 2020-02-13 14:00 | DRG 460 ==
LOC: ED 09:43 → 3W 14:27

== ENCOUNTER 2020-02-15 11:57 | Inpatient (IN) ==
[2020-02-15] MEDS ORDERED: MoRPHine SULFATE 4 MG/ML 1 ML CARP\\VIAL IV STA (12:39)
[2020-02-15] MEDS ORDERED: ACETAMINOPHEN 325 MG TAB PO STA (12:39)
[2020-02-15 13:19] LABS: Eosinophils # (auto) 0.01 K/uL (0-0.5); Eosinophils % (auto) 0.1 %; Hematocrit (blood only) 31.6 % (37-47); Hemoglobin 10.3 g/dL (12.0-16.0); Immature Granulocytes # (auto) 0.04 K/uL (0.00-0.02); Immature Granulocytes % (auto) 0.3 %; Lymphocytes % (auto) 5.1 %; Mean Corpuscular Hemoglobin 32.1 pg (25-34); Mean Corpuscular Hgb Conc 32.6 g/dL (32-36); Mean Corpuscular Volume 98.4 fL (80-100); Mean Platelet Volume 8.5 fL (7.4-10.4); Monocytes # (auto) 0.74 K/uL (0.11-0.59); Monocytes % (auto) 6.3 %; Neutrophils # (auto) 10.28 K/uL (1.4-6.5); Neutrophils % (auto) 88.2 %; Platelet Count 151 K/uL (130-400); RDW Coefficient of Variation 14.8 % (11.5-14.5); RDW Standard Deviation 52.6 fL (36.4-46.3); Red Blood Count 3.21 M/uL (4.2-5.4); White Blood Count 11.67 K/uL (4.8-10.8)
[2020-02-15 13:36] LABS: BUN Creatinine Ratio 20.5 (10-20); Calcium 9.3 mg/dl (8.5-10.1); Est GFR (African American) 81.1; Potassium 3.4 mmol/L (3.5-5.1)
--- NOTE | 2020-02-15 13:45 | Emergency Department Note ---
Impression & Plan Back pain, Seroma, Anemia ED Provider Note NAME: ABDIAS GRECO AGE: 74 SEX: F : 1945 ARRIVES VIA: Ambulance INFORMANT: Patient, ED PROVIDER(S): Young Pena MD Chief Complaint: Back pain, leg weakness HPI: Patient does present with worsening back pain. The patient describes it as being in the middle of her lower back near where her surgical site was. The patient has had [address] Street most recently for a cement fixation. Patient was subsequently discharged to [facility] and during PT and OT the patient believes that she has had worsening symptoms. The patient has tried multiple [id number] prescription medications but without any relief with her back pain. The patient believes that she is having some difficulty with moving her legs. Patient states she is able to bend her legs but it is difficult to pick them up off of a bed. The patient states that the pain is sharp and nonradiating. The patient has fevers or chills, chest pains, shortness of breath, loss of taste or smell. Patient did have an L1 compression and sacral fracture status post kyphoplasty with Dr. Street. ROS: See HPI for pertinent positives and negatives. A total of 10 systems were reviewed and otherwise negative. Past medical history: See below Surgical history: See below Social history: See below Physical Exam: GENERAL: Uncomfortable in appearance, wearing a mask. NAD, non-toxic. EYE EXAM: Normal conjunctiva. PERRL, no anisocoria and EOM's grossly intact w/o pain. [OROPHARYNX: Moist mucus membranes. Grossly normal dentition. [No exudate, posterior pharynx is clear, no tonsillar/uvular deviation or swelling. No cervical adenopathy, no submental, submandibular, or sublingual swelling.]] NECK: Supple, no nuchal rigidity, no adenopathy, non-tender. No signs of menin gismus. [FROM of the neck with good chin to chest and neck extension. No stridor.] LUNGS: Clear to auscultation. Normal chest wall mechanics. HEART: NSR, no MRG. ABDOMEN: Abdomen soft, non-tender, normo-active bowel sounds, no masses, no rebound or guarding. BACK: Surgical incisional site over the lower lumbar spine, healing, no purulent drainage, redness or fluctuance. SKIN: No rashes and no bruising. UPPER EXTREMITIES: Upper extremities are grossly normal. LOWER EXTREMITIES: Grossly normal, no edema. NEURO EXAM: A&O x3, cranial nerves II-XII grossly intact, normal speech, decreased ability to raise legs off the bed, good flexion at the knee and ankle, no sensory deficit deficit distally, no saddle anesthesia. Differential diagnoses: Musculoskeletal, disc herniation, fracture, metastatic disease, cord compression, discitis, sciatica, cauda equina, infection, aortic disease, renal colic, gastrointestinal, as well as other pathologies. Course: Patient was seen and evaluated the bedside. Full history physical exam was performed. EKG: None Imaging Studies: Radiology results as stated below per my review in the radiologist's interpretation: CT lumbar spine wo con HISTORY: 74 years-old Female Back Pain [back pain COMPARISON: CT lumbar spine 02/04/2020, MRI lumbar spine 02/07/2020 TECHNIQUE: Multiple axial CT images of the lumbar spine were obtained without the use of IV contrast. A dose lowering technique was used consistent with the principals of ALARA. FINDINGS: Acute appearing bilateral sacral insufficiency fractures are redemonstrated. Remote T12 and L1 compression deformities with kyphoplasty. There is unchanged retropulsion at T12. Demineralized appearance of the bones. Posterior interbody malcolm and screw fusion is noted at L2-S1. Discectomy changes at L3-L4 through L5- S1. The hardware appears intact. Bilateral iliac bolts. There is a healing nondisplaced fracture noted involving the posterior aspect of the left T11 rib. Streak artifact from the hardware limits evaluation of the adjacent tissues. Stranding with air bubbles and postoperative beads are present. Posterior subcutaneous/deep tissue air and fluid-filled collection measures up to approximately 12.4 cm in length. Left nephrolithiasis. Extensive calcified plaque of the abdominal aorta. Colonic diverticulosis. IMPRESSION: 1. Acute bilateral sacral insufficiency fractures are demonstrated with unchanged alignment. 2. Unchanged appearance of the T12 and L1 compression deformities with prior kyphoplasty. 3. Posterior interbody malcolm and screw fusion at L2-S1 with multilevel discectomy changes are redemonstrated. Hardware appears intact. 4. Ill-defined air and fluid-filled collection within the subcutaneous and paraspinal muscular distribution of the midline incision measures over 12 cm in length. Sterility cannot be determined by imaging alone. ACT 112: Negative or not required by law. The above report was generated using voice recognition software. It may contain grammatical, syntax or spelling errors. Electronically signed by: Bishnu Juarez M.D. 02/15/2020 1:56 PM Dictated: 02/15/20 1344 Transcribed: 02/15/20 1344 Cardiac monitoring: An order was placed for continuous cardiac monitoring. The monitor shows a rate of 65 with sinus rhythm. MDM: Patient does present with concern for lower back pain. The patient did have blood work completed along with a CT lumbar spine. Patient was also ordered medications to help with her back pain. Patient does have mild white count of 11. Patient has chronic and stable anemia. Normal platelet count is noted. Mild hypokalemia and hyperglycemia noted. Calcium is within normal limits. I did reevaluate the patient the patient does appear to have increased ability to raise the left lower extremity. The patient does have some mild difficulty with raising the right lower extremity but after further discussion with the patient she believes this is more related to pain. The patient denies any bowel incontinence or retention and does not have any saddle anesthesia. After further discussion with case management the patient was refusing to go back to [facility]. An attempt was made to see if the patient could be placed at [facility] which was not possible at this time. Patient was evaluated by [facility] therapy. Patient was evaluated and deemed not to be able to go home at this time. CT is not show any change in the fractures alignment or hardware. The patient does have ill-defined areas of fluid-filled collection in the subcutaneous paraspinal muscle distribution of the midline incision. Given that the midline incisional site appears normal and patient is afebrile I believe this more likely to be a seroma. I did speak the on-call spinal specialist and surgeon of record Dr. Street who recommended to bed rest and admission. I did speak with Dr. Marcum with [facility] and the patient was admitted to the medicine service. Past Med/Surg History Medical History CAD (coronary artery disease) 1991 - PTCA/PCI to ramus intermedius complicated by spiral dissection non-obstructive per 2017 cardiac cath Chronic back pain LLE radiculopathy CVA (cerebral vascular accident) 2017, residual unsteady, left sided weakness Depression Diabetes mellitus, type II Dyslipidemia GERD (gastroesophageal reflux disease) Hiatal hernia History of breast cancer right breast HTN (hypertension) Hypothyroidism IBS (irritable bowel syndrome) Osteoarthritis PAD (peripheral artery disease) severe right brachiocephalic stenosis and moderate to severe abdominal aortic stenosis- under surveillance by cardiovascular PAF (paroxysmal atrial fibrillation) post operative, no further reoccurance Rheumatoid arthritis Surgical History H/O repair of right rotator cuff 2013 History of back surgery 2019 History of bilateral knee arthroplasty Left (1995), right (2005) History of cardiac cath [facility]-2017 NO STENTS History of cholecystectomy 1998 History of colonoscopy History of modified radical mastectomy of right breast 2011 History of total knee replacement left revision Nasal fracture repair Status post lumbar surgery Status post renal artery angioplasty 1991 Family History Daughter Family history of reaction to anesthesia SLOW TO WAKE UP Mother Family history of diabetes mellitus Other Diabetes Heart disease Hypertension Social History Smoking Status: Former smoker Second Hand Exposure: No; Hx Alcohol Use: No Hx Substance Use: No Preferred Language: Romanian Communication Ability: Effective Visual Impairment: No Limitations Hearing Ability: Normal Internet Programmer Required: No Beliefs That Will Affect Care: None marital status: Current Living Situation: Spouse current occupational status: retired Feels Safe at Home: Yes Allergies Allergies Allergy/AdvReac Type Severity Reaction Status Date / Time nadolol AdvReac Unknown GI UPSET Verified 02/15/20 14:49 nitroglycerin AdvReac Unknown HEADACHE Verified 02/15/20 14:49 NSAIDS (Non-Steroidal AdvReac Unknown GI UPSET Verified 02/15/20 14:49 Anti-Inflamma Home Meds Home Medications Medication Instructions Recorded Confirmed aspirin [Aspirin Low Dose] 81 mg PO QAM 04/02/18 02/15/20 atorvastatin 40 mg PO HS 04/02/18 02/15/20 carvedilol 12.5 mg PO BID 04/02/18 02/15/20 fluoxetine [Prozac] 40 mg PO QAM 04/02/18 02/15/20 furosemide [Lasix] 20 mg PO DAILY PRN 04/02/18 02/15/20 gabapentin 300 mg PO TID 04/02/18 02/15/20 metformin 500 mg PO BID 04/02/18 02/15/20 nitroglycerin 1 dose TRANSLINGUAL DIRECTED PRN 04/02/18 02/15/20 pantoprazole 40 mg PO QAM 04/02/18 02/15/20 terazosin 2 mg PO HS 04/02/18 02/15/20 amlodipine 5 mg PO QAM 03/29/19 02/15/20 betamethasone dipropionate 1 applic TOPICAL BID PRN 03/29/19 02/15/20 levothyroxine 25 mcg PO QAM 09/08/19 02/15/20 hydralazine 25 mg PO TID 01/29/20 02/15/20 Results & Data (ED) Vital Signs Vital Signs - 24 hr 02/15/20 12:04 02/15/20 12:06 02/15/20 12:10 Temperature Temperature Source Pulse Rate - Lying Pulse Rate 70 65 66 Pulse Rate from SpO2 Sensor 67 65 64 Respiratory Rate 15 24 17 Blood Pressure - Lying Blood Pressure 207/99 H Blood Pressure Mean 115 Pulse Oximetry 96 98 99 Oxygen Delivery Method Sepsis Recent Fever Within 48 Hours Sepsis New/Unexplained Change in Mental Status Sepsis Action Taken by Nursing 02/15/20 12:12 02/15/20 12:21 02/15/20 12:30 Temperature 37 C Temperature Source Oral Pulse Rate - Lying Pulse Rate 75 68 73 Pulse Rate from SpO2 Sensor 62 67 Respiratory Rate 16 19 15 Blood Pressure - Lying Blood Pressure 207/99 H Blood Pressure Mean 135 Pulse Oximetry 98 97 98 Oxygen Delivery Method Room Air Sepsis Recent Fever Within 48 Hours No Sepsis New/Unexplained Change in Mental Status No Sepsis Action Taken by Nursing No Action Required 02/15/20 12:31 02/15/20 12:40 02/15/20 12:51 Temperature Temperature Source Pulse Rate - Lying Pulse Rate 66 67 67 Pulse Rate from SpO2 Sensor 65 65 69 Respiratory Rate 22 17 Blood Pressure - Lying Blood Pressure 181/99 H Blood Pressure Mean 132 Pulse Oximetry 98 97 95 Oxygen Delivery Method Sepsis Recent Fever Within 48 Hours Sepsis New/Unexplained Change in Mental Status Sepsis Action Taken by Nursing 02/15/20 13:00 02/15/20 13:10 02/15/20 13:21 Temperature Temperature Source Pulse Rate - Lying Pulse Rate 68 69 67 Pulse Rate from SpO2 Sensor 72 68 64 Respiratory Rate 20 22 Blood Pressure - Lying Blood Pressure Blood Pressure Mean Pulse Oximetry 96 97 96 Oxygen Delivery Method Sepsis Recent Fever Within 48 Hours Sepsis New/Unexplained Change in Mental Status Sepsis Action Taken by Nursing 02/15/20 13:42 02/15/20 13:50 02/15/20 14:00 Temperature Temperature Source Pulse Rate - Lying Pulse Rate 68 70 69 Pulse Rate from SpO2 Sensor 63 65 67 Respiratory Rate 17 20 21 Blood Pressure - Lying Blood Pressure 167/68 H Blood Pressure Mean 108 Pulse Oximetry 90 96 95 Oxygen Delivery Method Sepsis Recent Fever Within 48 Hours Sepsis New/Unexplained Change in Mental Status Sepsis Action Taken by Nursing 02/15/20 14:02 02/15/20 14:10 02/15/20 14:20 Temperature Temperature Source Pulse Rate - Lying Pulse Rate 66 64 65 Pulse Rate from SpO2 Sensor 68 67 60 Respiratory Rate 18 17 21 Blood Pressure - Lying Blood Pressure Blood Pressure Mean Pulse Oximetry 96 95 94 Oxygen Delivery Method Sepsis Recent Fever Within 48 Hours Sepsis New/Unexplained Change in Mental Status Sepsis Action Taken by Nursing 02/15/20 14:30 02/15/20 14:31 02/15/20 14:40 Temperature Temperature Source Pulse Rate - Lying Pulse Rate 63 67 61 Pulse Rate from SpO2 Sensor 61 62 60 Respiratory Rate 18 14 14 Blood Pressure - Lying Blood Pressure 157/74 H Blood Pressure Mean 114 Pulse Oximetry 96 96 95 Oxygen Delivery Method Sepsis Recent Fever Within 48 Hours Sepsis New/Unexplained Change in Mental Status Sepsis Action Taken by Nursing 02/15/20 14:50 02/15/20 15:00 02/15/20 15:01 Temperature Temperature Source Pulse Rate - Lying Pulse Rate 71 64 69 Pulse Rate from SpO2 Sensor 67 61 67 Respiratory Rate 15 18 17 Blood Pressure - Lying Blood Pressure 174/84 H Blood Pressure Mean 139 Pulse Oximetry 94 95 95 Oxygen Delivery Method Sepsis Recent Fever Within 48 Hours Sepsis New/Unexplained Change in Mental Status Sepsis Action Taken by Nursing 02/15/20 15:53 Temperature Temperature Source Pulse Rate - Lying 70 Pulse Rate Pulse Rate from SpO2 Sensor Respiratory Rate Blood Pressure - Lying 165/78 H Blood Pressure Blood Pressure Mean Pulse Oximetry 97 Oxygen Delivery Method Sepsis Recent Fever Within 48 Hours Sepsis New/Unexplained Change in Mental Status Sepsis Action Taken by [facility] Medications Current Medication List: was personally reviewed by me Laboratory Data Attestation: I reviewed the patient's lab results. Result diagrams: 02/15/20 13:05 02/15/20 13:05 Lab Results 02/15/20 02/15/20 Range/Units 13:05 13:05 WBC 11.67 H (4.8-10.8) K/uL RBC 3.21 L (4.2-5.4) M/uL Hgb 10.3 L (12.0-16.0) g/dL Hct 31.6 L (37-47) % MCV 98.4 (80-100) fL MCH 32.1 (25-34) pg MCHC 32.6 (32-36) g/dL RDW Std Deviation 52.6 H (36.4-46.3) fL RDW Coeff of Farheen 14.8 H (11.5-14.5) % Plt Count 151 (130-400) K/uL MPV 8.5 (7.4-10.4) fL Immature Gran % (Auto) 0.3 % Neut % (Auto) 88.2 % Lymph % (Auto) 5.1 % Newton % (Auto) 6.3 % Eos % (Auto) 0.1 % Baso % (Auto) 0.0 % Neut # (Auto) 10.28 H (1.4-6.5) K/uL Lymph # (Auto) 0.60 L (1.2-3.4) K/uL Newton # (Auto) 0.74 H (0.11-0.59) K/uL Eos # (Auto) 0.01 (0-0.5) K/uL Baso # (Auto) 0.00 (0-0.2) K/uL Immature Gran # (Auto) 0.04 H (0.00-0.02) K/uL Sodium 135 L (136-145) mmol/L Potassium 3.4 L (3.5-5.1) mmol/L Chloride 99 (98-107) mmol/L Carbon Dioxide 28 (21-32) mmol/L Anion Gap 8.0 (3-11) BUN 17 (7-18) mg/dl Creatinine 0.82 (0.6-1.2) mg/dl Est Cr Clr Drug Dosing 76.0 ml/min Est GFR ( Amer) 81.1 Est GFR (Non-Af Amer) 70.0 BUN/Creatinine Ratio 20.5 H (10-20) Glucose 193 H (70-99) mg/dl Calcium 9.3 (8.5-10.1) mg/dl Administered Medications Discontinued Medications Acetaminophen (Acetaminophen 325 Mg Tab) 650 mg PO NOW STA Stop: 02/15/20 12:40 Last Admin: 02/15/20 13:04 Dose: 650 mg Documented by: [id number] Fentanyl Citrate (Fentanyl Citrate 100 Mcg/2 Ml Vial) 25 mcg IV NOW ONE Stop: 02/15/20 14:34 Last Admin: 02/15/20 14:44 Dose: 25 mcg Documented by: [id number] Morphine Sulfate (Morphine Sulfate 4 Mg/Ml 1 Ml Carp\Vial) 4 mg IV NOW STA Stop: 02/15/20 12:40 Last Admin: 02/15/20 13:04 Dose: 4 mg Documented by: [id number] Discharge Plan Visit Data Chief Complaint: Back Injury/Pain Stated Complaint: Back Pain ED Provider: Young Pena Discharge Problem: Back pain, Seroma, Anemia Forms Stand Alone Forms: [facility] [place] [employer] Prescriptions Prescriptions: No Action fluoxetine [Prozac] 40 mg Capsule 40 mg PO QAM RF: 0 atorvastatin 40 mg Tablet 40 mg PO HS RF: 0 metformin 500 mg Tablet 500 mg PO BID RF: 0 carvedilol 6.25 mg Tablet 12.5 mg PO BID RF: 0 nitroglycerin 400 mcg/spray Aerosol,[place] 1 dose Translingual DIRECTED PRN (Reason: Chest Pain) RF: 0 aspirin [Aspirin Low Dose] 81 mg Tablet,Delayed Release (Dr/Ec) 81 mg PO QAM RF: 0 terazosin 2 mg Capsule 2 mg PO HS RF: 0 pantoprazole 40 mg tablet,delayed release (DR/EC) 40 mg PO QAM RF: 0 gabapentin 300 mg Capsule 300 mg PO TID RF: 0 furosemide [Lasix] 20 mg Tablet 20 mg PO DAILY PRN (Reason: Weight Gain) RF: 0 amlodipine 5 mg Tablet 5 mg PO QAM RF: 0 betamethasone dipropionate 0.05 % Cream 1 applic TOPICAL BID PRN (Reason: redness) RF: 0 hydralazine 25 mg tablet 25 mg PO TID RF: 0 levothyroxine 25 mcg Capsule 25 mcg PO QAM RF: 0 Discharge Problem: Back pain Qualifiers: Back pain location: low back pain Chronicity: chronic Back pain laterality: midline Sciatica presence: unspecified whether sciatica present Qualified Code(s): M54.5 - Low back pain Anemia Qualifiers: Anemia type: unspecified type Qualified Code(s): D64.9 - Anemia, unspecified
--- NOTE | 2020-02-15 13:58 | CT Scan Report ---
CT lumbar spine wo con HISTORY: 74 years-old Female Back Pain [back pain COMPARISON: CT lumbar spine 02/04/2020, MRI lumbar spine 02/07/2020 TECHNIQUE: Multiple axial CT images of the lumbar spine were obtained without the use of IV contrast. A dose lowering technique was used consistent with the principals of ALARA. FINDINGS: Acute appearing bilateral sacral insufficiency fractures are redemonstrated. Remote T12 and L1 compre ssion deformities with kyphoplasty. There is unchanged retropulsion at T12. Demineralized appearance of the bones. Posterior interbody malcolm and screw fusion is noted at L2-S1. Discectomy changes at L3-L4 through L5-S1. The hardware appears intact. Bilateral iliac bolts. There is a healing nondisplaced f racture noted involving the posterior aspect of the left T11 rib. Streak artifact from the hardware l imits evaluation of the adjacent tissues. Stranding with air bubbles and postoperative beads are pres ent. Posterior subcutaneous/deep tissue air and fluid-filled collection measures up to approximately 12.4 cm in length. Left nephrolithiasis. Extensive calcified plaque of the abdominal aorta. Colonic diverticulosis. IMPRESSION: 1. Acute bilateral sacral insufficiency fractures are demonstrated with unchanged alignment. 2. Unchanged appearance of the T12 and L1 compression deformities with prior kyphoplasty. 3. Posterior interbody malcolm and screw fusion at L2-S1 with multilevel discectomy changes are redemonst rated. Hardware appears intact. 4. Ill-defined air and fluid-filled collection within the subcutaneous and paraspinal muscular distri bution of the midline incision measures over 12 cm in length. Sterility cannot be determined by imagi ng alone. ACT 112: Negative or not required by law. The above report was generated using voice recognition software. It may contain grammatical, syntax o r spelling errors. Electronically signed by: Bishnu Juarez M.D. 02/15/2020 1:56 PM
[2020-02-15] MEDS ORDERED: fentaNYL citrate 100 MCG/2 ML VIAL IV ONE (14:33)
[2020-02-15] MEDS ORDERED: POTASSIUM CHLORIDE 20 MEQ TABCR PO STA (17:20)
--- NOTE | 2020-02-15 17:22 | History & Physical Report ---
Date of Service February 15, 2020 Assessment & Plan (1) Back pain: (2) Seroma: (3) Leukocytosis: -Likely secondary to postoperative seroma is identified on CT -We will treat with empiric antibiotics, and will further discuss with orthospine (4) Postoperative back pain: 74-year-old female, with history of CAD, hypertension, diabetes mellitus type 2, well-controlled, RA, anemia, and multiple recent back surgeries, who now presents with back pain. Patient was admitted under Dr. Street's service, and was recently discharged to [facility]. There unfortunately patient was experiencing more back pain after physical therapy, and therefore she presented to emergency room. During her last admission, she underwent seroma incision and drainage, L1 compression fracture kyphoplasty, and also lumbar pelvic fusion for sacral fracture. CT of lumbar spine was obtained in the emergency room, showed acute bilateral sacral insufficiency fractures, unchanged alignment. Unchanged appearance of T12 and L1 compression deformities with prior kyphoplasty. Posterior interbody malcolm and screw fusion at L2 S1 with multilevel discectomy changes redemonstrated. Hardware appears intact. Also showed ill-defined air and fluid-filled collection within the subcutaneous and paraspinal muscular distribution of the midline incision measures over 12 cm in length, sterilely cannot be determined by imaging alone. Dr. Street aware of the patient, will officially consult for further recommendations -Patient also has leukocytosis, and seroma identified on CT, will start empiric antibiotics, will further discuss with Dr. Street if antibiotics necessary -Tylenol and tramadol ordered for back pain (5) Diabetes mellitus, type II: -Well-controlled, A1c 6.5% in 12/2019 -May continue metformin for now, will switch to insulin if patient will require prolonged admission (6) Anemia: Hemoglobin 10.3, actually improved since last admission earlier this month -Continue to monitor HTN -Currently blood pressure acceptable, 142/72 -On discharge had increase in hydralazine to 50 mg 3 times daily -Continue to monitor CAD -Stable, no chest pain -Continue aspirin, statin, beta-pamela RA -Previously on Plaquenil and methotrexate, currently not taking any medications -No acute RA involving any joints Code: Full Dispo: Med/ Surg DVT ppx: SCDs for now will further evaluate if patient has prolonged admission History of Present Illness Chief Complaint: Back pain Primary Care Provider: Derrek Sparks MD 74-year-old female, with history of CAD, hypertension, diabetes mellitus type 2, well-controlled, RA, anemia, and multiple recent back surgeries, who now presents with back pain. Patient was admitted under Dr. Street's service, and was recently discharged to [facility]. There unfortunately patient was experiencing more back pain after physical therapy, and therefore she presented to emergency room. During her last admission, she underwent seroma incision and drainage, L1 compression fracture kyphoplasty, and also lumbar pelvic fusion for sacral fracture. CT of lumbar spine was obtained in the emergency room, showed acute bilateral sacral insufficiency fractures, unchanged alignment. Unchanged appearance of T12 and L1 compression deformities with prior kyphoplasty. Posterior interbody malcolm and screw fusion at L2 S1 with multilevel discectomy changes redemonstrated. Hardware appears intact. Also showed ill-defined air and fluid-filled collection within the subcutaneous and paraspinal muscular dist ribution of the midline incision measures over 12 cm in length, sterilely cannot be determined by imaging alone. Provider contacted Dr. Street, who was operating at a time, patient did not seem to be a surgical candidate at this time and recommended admission. Patient otherwise denies any fevers, chills, chest pain, shortness of breath, abdominal pain, nausea or vomiting. She has currently Granger catheter placed in. She denies stool incontinence. She is able to move lower extremities however she says that she is more weak in her lower extremities and she has little difficulty with PT. at the bedside and updated. Allergies Allergy/AdvReac Type Severity Reaction Status Date / Time nadolol AdvReac Unknown GI UPSET Verified 02/15/20 14:49 nitroglycerin AdvReac Unknown HEADACHE Verified 02/15/20 14:49 NSAIDS (Non-Steroidal AdvReac Unknown GI UPSET Verified 02/15/20 14:49 Anti-Inflamma Home Medications Home Medications Medication Instructions Recorded Confirmed Type aspirin [Aspirin Low Dose] 81 mg PO QAM 04/02/18 02/15/20 History atorvastatin 40 mg PO HS 04/02/18 02/15/20 History carvedilol 12.5 mg PO BID 04/02/18 02/15/20 History fluoxetine [Prozac] 40 mg PO QAM 04/02/18 02/15/20 History furosemide [Lasix] 20 mg PO DAILY PRN 04/02/18 02/15/20 History gabapentin 300 mg PO TID 04/02/18 02/15/20 History metformin 500 mg PO BID 04/02/18 02/15/20 History nitroglycerin 1 dose TRANSLINGUAL DIRECTED PRN 04/02/18 02/15/20 History pantoprazole 40 mg PO QAM 04/02/18 02/15/20 History terazosin 2 mg PO HS 04/02/18 02/15/20 History amlodipine 5 mg PO QAM 03/29/19 02/15/20 History betamethasone dipropionate 1 applic TOPICAL BID PRN 03/29/19 02/15/20 History levothyroxine 25 mcg PO QAM 09/08/19 02/15/20 History hydralazine 25 mg PO TID 01/29/20 02/15/20 History Past Med/Surg History Medical History CAD (coronary artery disease) 1991 - PTCA/PCI to ramus intermedius complicated by spiral dissection non-obstructive per 2017 cardiac cath Chronic back pain LLE radiculopathy CVA (cerebral vascular accident) 2017, residual unsteady, left sided weakness Depression Diabetes mellitus, type II Dyslipidemia GERD (gastroesophageal reflux disease) Hiatal hernia History of breast cancer right breast HTN (hypertension) Hypothyroidism IBS (irritable bowel syndrome) Osteoarthritis PAD (peripheral artery disease) severe right brachiocephalic stenosis and moderate to severe abdominal aortic stenosis- under surveillance by cardiovascular PAF (paroxysmal atrial fibrillation) post operative, no further reoccurance Rheumatoid arthritis Surgical History H/O repair of right rotator cuff 2013 History of back surgery 2019 History of bilateral knee arthroplasty Left (1995), right (2005) History of cardiac cath [facility]-2017 NO STENTS History of cholecystectomy 1998 History of colonoscopy History of modified radical mastectomy of right breast 2010 History of total knee replacement left revision Nasal fracture repair Status post lumbar surgery Status post renal artery angioplasty 1991 Family History Daughter Family history of reaction to anesthesia SLOW TO WAKE UP Mother Family history of diabetes mellitus Other Diabetes Heart disease Hypertension Social History Smoking Status: Former smoker Second Hand Exposure: No; Hx Alcohol Use: No Hx Substance Use: No Preferred Language: [place] Communication Ability: Effective Visual Impairment: No Limitations Hearing Ability: Normal Core Stripper Required: No Beliefs That Will Affect Care: None marital status: Current Living Situation: Spouse current occupational status: retired Feels Safe at Home: Yes Review of Systems Review of Systems: All systems reviewed & are unremarkable except as noted in HPI & below Constitutional: no fever and no chills Eyes: no problem reported Ear, Nose, Mouth, Throat: no problem reported Respiratory: no cough and no dyspnea Cardiovascular: no chest pain and no palpitations Gastrointestinal: no abdominal pain, no nausea and no vomiting Genitourinary: Currently has Granger catheter in place Musculoskeletal: + back pain and + muscle weakness Integumentary: no problem reported Neurologic: + unsteadiness Psychiatric: no problem reported Endocrine: no problem reported Hematologic / Lymphatic: no problem reported Allergy / Immunological: no problem reported Physical Exam Physical Exam: Elderly female lying in bed, in no acute distress (however received pain medications in ED) Constitutional: WD/WN, vitals as above + obese Eyes: PERRL, conjunctivae normal, anicteric sclerae EOM intact bilaterally ENMT: external ear and nose normal, oropharynx normal Neck: trachea midline, no thyromegaly Respiratory: normal respiratory effort, lungs clear to auscultation Cardiovascular: RRR, no murmur, no edema Gastrointestinal (Abdomen): Inspection/Auscultation: abdomen normal to inspection and normal bowel sounds; abdomen not distended Percussion/Palpation: abdomen soft; abdomen nontender, no guarding and abdomen not rigid Obese Musculoskeletal: Head/Neck/Chest: normocephalic, head atraumatic and neck supple Patient is able to move lower extremities while lying in bed, however she says that while she was walking around with physical therapist and a walker, she had significant weakness, I did not assess her gait Skin: no rashes, warm and dry Neurologic: PERRL, EOMI, accommodation nl, no face palsy, no dysarthria moves all extremities Psychiatric: A+Ox3, euthymic affect Genitourinary: no CVA tenderness Currently has Granger catheter placed Results & Data Results & Data ([facility]) Vital Signs (Past 12 Hours) Vital Signs Temp Pulse Resp BP Pulse Ox 02/15/20 15:53 97 08/20/20 15:01 69 17 95 02/15/20 15:00 64 18 174/84 H 95 02/15/20 14:50 71 15 94 02/15/20 14:40 61 14 95 02/15/20 14:31 67 14 96 02/15/20 14:30 63 18 157/74 H 96 02/15/20 14:20 65 21 94 02/15/20 14:10 64 17 95 02/15/20 14:02 66 18 96 02/15/20 14:00 69 21 167/68 H 95 02/15/20 13:50 70 20 96 02/15/20 13:42 68 17 90 02/15/20 13:21 67 22 96 02/15/20 13:10 69 20 97 02/15/20 13:00 68 96 02/15/20 12:51 67 95 02/15/20 12:40 67 17 97 02/15/20 12:31 66 22 181/99 H 98 02/15/20 12:30 73 15 98 02/15/20 12:21 68 19 97 02/15/20 12:12 37 C 75 16 207/99 H 98 02/15/20 12:10 66 17 99 02/15/20 12:06 65 24 98 02/15/20 12:04 70 15 207/99 H 96 Laboratory Results 02/15/20 02/15/20 Range/Units 13:05 13:05 WBC 11.67 H (4.8-10.8) K/uL RBC 3.21 L (4.2-5.4) M/uL Hgb 10.3 L (12.0-16.0) g/dL Hct 31.6 L (37-47) % MCV 98.4 (80-100) fL MCH 32.1 (25-34) pg MCHC 32.6 (32-36) g/dL RDW Std Deviation 52.6 H (36.4-46.3) fL RDW Coeff of Farheen 14.8 H (11.5-14.5) % Plt Count 151 (130-400) K/uL MPV 8.5 (7.4-10.4) fL Immature Gran % (Auto) 0.3 % Neut % (Auto) 88.2 % Lymph % (Auto) 5.1 % Broome % (Auto) 6.3 % Eos % (Auto) 0.1 % Baso % (Auto) 0.0 % Neut # (Auto) 10.28 H (1.4-6.5) K/uL Lymph # (Auto) 0.60 L (1.2-3.4) K/uL Broome # (Auto) 0.74 H (0.11-0.59) K/uL Eos # (Auto) 0.01 (0-0.5) K/uL Baso # (Auto) 0.00 (0-0.2) K/uL Immature Gran # (Auto) 0.04 H (0.00-0.02) K/uL Sodium 135 L (136-145) mmol/L Potassium 3.4 L (3.5-5.1) mmol/L Chloride 99 (98-107) mmol/L Carbon Dioxide 28 (21-32) mmol/L Anion Gap 8.0 (3-11) BUN 17 (7-18) mg/dl Creatinine 0.82 (0.6-1.2) mg/dl Est Cr Clr Drug Dosing 76.0 ml/min Est GFR ( Amer) 81.1 Est GFR (Non-Af Amer) 70.0 BUN/Creatinine Ratio 20.5 H (10-20) Glucose 193 H (70-99) mg/dl Calcium 9.3 (8.5-10.1) mg/dl Diagnostic Findings Lumbar spine CT 02/15/20 IMPRESSION: 1. Acute bilateral sacral insufficiency fractures are demonstrated with unchanged alignment. 2. Unchanged appearance of the T12 and L1 compression deformities with prior kyphoplasty. 3. Posterior interbody malcolm and screw fusion at L2-S1 with multilevel discectomy changes are redemonstrated. Hardware appears intact. 4. Ill-defined air and fluid-filled collection within the subcutaneous and paraspinal muscular distribution of the midline incision measures over 12 cm in length. Sterility cannot be determined by imaging alone. Code Status & VTE Plan VTE Prophylaxis Plan VTE Prophylaxis will be ordered: Yes (1) Anemia Anemia type: unspecified type Qualified Code(s): D64.9 - Anemia, unspecified (2) Back pain Back pain laterality: midline Back pain location: low back pain Chronicity: chronic Sciatica presence: unspecified whether sciatica present Qualified Code(s): M54.5 - Low back pain; G89.29 - Other chronic pain
[2020-02-15] MEDS ORDERED: FUROSEMIDE 20 MG TAB PO PRN (18:08)
[2020-02-15] MEDS ORDERED: ACETAMINOPHEN 325 MG TAB PO PRN (18:08)
[2020-02-15] MEDS ORDERED: BETAMETHASONE DIP AUG (DIPROLENE) 0.05% CR 15 GM TUBE EXT PRN (18:16)
[2020-02-15] MEDS: METFORMIN HCL 500 MG TAB PO SCH (20:18)
[2020-02-15] MEDS: ATORVASTATIN 40 MG TAB PO SCH (20:18)
[2020-02-15] MEDS: TERAZOSIN HCL 1 MG CAP PO SCH (20:18)
[2020-02-15] MEDS: GABAPENTIN 300 MG CAP PO SCH (20:19)
[2020-02-15] MEDS: carvediloL 12.5 MG TAB PO SCH (20:19)
[2020-02-16] MEDS: TRAMADOL HCL 50 MG TABLET PO PRN ×4 (00:13→23:32)
[2020-02-16 01:50] LABS: Appearance Urine Turbid (Clear); Bacteria Urine Automated 2+ (Negative); Bilirubin Urine Negative (Negative); Blood Urine Trace (Negative); Color Urine Dark Yellow; Epithelial Cell Urine Auto >30 /lpf (0-5); Glucose Urine UA Trace (Negative); Ketones Urine Trace (Negative); Leukocyte Esterase Urine 3+ (Negative); Nitrite Urine Negative (Negative); Urobilinogen Urine Negative (Negative); WBC Urine Automated >30 /hpf (0-5); pH Urine >= 9.0 (4.5-7.5)
[2020-02-16 02:02] LABS: Protein Urine 3+ (Negative); Sulfosalicylic Acid Urine Positive (Negative)
[2020-02-16 02:04] LABS: Triple Phosphate Crystal Urine Present (None Prsent)
[2020-02-16 02:05] LABS: Mucus Urine Present (None Prsent)
[2020-02-16] MEDS ORDERED: cefTRIAXone SODIUM 2,000 MG in DEXTROSE 5% 50 ML IV SCH (02:30)
[2020-02-16] MEDS: LEVOTHYROXINE SODIUM 25 MCG TABLET PO SCH (05:31)
[2020-02-16] MEDS ORDERED: SODIUM CHLORIDE 0.9% 1000ML 1,000 ML IV SCH (06:00)
[2020-02-16 06:27] LABS: Hematocrit (blood only) 28.9 % (37-47); Hemoglobin 9.2 g/dL (12.0-16.0); Mean Corpuscular Hemoglobin 31.9 pg (25-34); Mean Corpuscular Hgb Conc 31.8 g/dL (32-36); Mean Corpuscular Volume 100.3 fL (80-100); Mean Platelet Volume 8.1 fL (7.4-10.4); Platelet Count 182 K/uL (130-400); RDW Coefficient of Variation 15.1 % (11.5-14.5); RDW Standard Deviation 54.9 fL (36.4-46.3); Red Blood Count 2.88 M/uL (4.2-5.4); White Blood Count 12.12 K/uL (4.8-10.8)
[2020-02-16 06:58] LABS: BUN Creatinine Ratio 23.4 (10-20); Creatinine Clr Calc Pharmacy 79.9 ml/min; Est GFR (African American) 86.2; Est GFR (Non-African American) 74.4; Magnesium 1.5 mg/dl (1.8-2.4); Potassium 3.7 mmol/L (3.5-5.1)
[2020-02-16 07:00] LABS: Phosphorus 2.8 mg/dl (2.5-4.9)
[2020-02-16] MEDS: ASPIRIN 81 MG ECTAB PO SCH (08:14)
[2020-02-16] MEDS: GABAPENTIN 300 MG CAP PO SCH ×3 (08:14→20:39)
[2020-02-16] MEDS: AMLODIPINE BESYLATE 5 MG TAB PO SCH (08:14)
[2020-02-16] MEDS: carvediloL 12.5 MG TAB PO SCH ×2 (08:14→20:38)
[2020-02-16] MEDS: METFORMIN HCL 500 MG TAB PO SCH ×2 (08:14→18:20)
[2020-02-16] MEDS: FLUOXETINE HCL 20 MG CAP PO SCH (08:15)
[2020-02-16] MEDS: PANTOprazole 40 MG TAB PO SCH (08:15)
--- NOTE | 2020-02-16 09:43 | Hospitalist Progress Note ---
Date of Service February 16, 2020 Assessment & Plan (1) Back pain: (2) Seroma: (3) Leukocytosis: -Likely secondary to postoperative seroma is identified on CT -No need for abx per ortho (4) Postoperative back pain: 74-year-old female, with history of CAD, hypertension, diabetes mellitus type 2, well-controlled, RA, anemia, and multiple recent back surgeries, who now presents with back pain. Patient was admitted under Dr. Street's service, and was recently discharged to [facility]. Patient was experiencing more back pain after physical therapy, and therefore she presented to emergency room. During her last admission, she underwent seroma incision and drainage, L1 compression fracture kyphoplasty, and also lumbar pelvic fusion for sacral fracture. CT of lumbar spine was obtained in the emergency room, showed acute bilateral sacral insufficiency fractures, unchanged alignment. Unchanged appearance of T12 and L1 compression deformities with prior kyphoplasty. Posterior interbody malcolm and screw fusion at L2 S1 with multilevel discectomy changes re- demonstrated. Hardware appears intact. Also showed ill-defined air and fluid- filled collection within the subcutaneous and paraspinal muscular distribution of the midline incision measures over 12 cm in length, sterilely cannot be determined by imaging alone. Dr. Street aware of the patient, will officially consult for further recommendations -Patient also has leukocytosis, and seroma identified on CT, Dr. Street says no abx needed, has Abx beeds -Tylenol and tramadol ordered for back pain (5) Diabetes mellitus, type II: -Well-controlled, A1c 6.5% in 12/2019 -May continue metformin for now, will switch to insulin if patient will require prolonged admission (6) Anemia: Hemoglobin 10.3, actually improved since last admission earlier this month -Continue to monitor HTN -Currently blood pressure acceptable, 142/72 -On discharge had increase in hydralazine to 50 mg 3 times daily -Continue to monitor CAD -Stable, no chest pain -Continue aspirin, statin, beta-pamela RA -Previously on Plaquenil and methotrexate, currently not taking any medications -No acute RA involving any joints Labs checked DC to SNF after seen by Ortho if no further w/u needed, DC [place] Code: Full Dispo: Med/ Surg DVT ppx: SCDs for now will further evaluate if patient has prolonged admission ROS-No Headache, No Visual Changes, No Nausea, No Vomiting, No Fever, No Chills, No Neck Pain or Stiffness, No Chest Pain, No Palpitations, No SOB, No VALDEZ, No Cough, No Sputum, No Wheezing, No Abdominal Pain, No Diarrhea, No Hematemesis, No Hemoptysis, No Unexpected Weight Loss, No Flank pain, No Melena, No Hematochezia, No Frequency, No Urgency, No Burning, No Hematuria, No Rashes, No Diaphoresis. Appetite is Normal, +Back Pain Physical Exam Gen-AAO x 3, NAD, Afebrile, +Granger POA Head-NCAT, EOMI, PERRLA, Anicteric Sclera, No Posterior Pharyngeal Erythema Neck-Supple, No JVD, No Thyromegaly, No Masses, No LAD, No Bruits Lungs-Clear to Auscultation Bilaterally, No Rales, No Rhonchi, No Wheezing, No Crepitus Chest-No S4, +S1, +S2, No S3, No Murmurs, No Rubs, No Gallops, No Ectopy Abdomen-Soft, Bowel Sounds Present, Non Tender, Non Distended, No Hepatomegaly, No Splenomegaly, No Palpable Masses, No Rebound, No Rigidity, No Guarding Musculoskeletal-Full Range of Motion Bilaterally, No CVAT Extremities-No Cyanosis, No Clubbing, No Edema Nuero-Cranial Nerves II-XII grossly intact, Motor WNL, DTRs WNL, Strength WNL, Non Focal Psych-Normal Mood Admission and Anticipated Discharge Date Admission Date: February 15, 2020 Anticipated date of discharge: 02/16/20 Results & Data Results & Data ([facility]) Vital Signs (Past 12 Hours) Vital Signs Temp Pulse Pulse Resp BP Pulse Ox 02/16/20 07:47 36.8 C 112 H 20 155/94 H 96 02/16/20 00:06 36.8 C 71 18 168/68 H 98 (1) Back pain Back pain laterality: midline Back pain location: low back pain Chronicity: chronic Sciatica presence: unspecified whether sciatica present Qualified Code(s): M54.5 - Low back pain; G89.29 - Other chronic pain (2) Anemia Anemia type: unspecified type Qualified Code(s): D64.9 - Anemia, unspecified
--- NOTE | 2020-02-16 13:30 | Orthopedic Consultation ---
Date of Consultation February 16, 2020 Assessment & Plan (1) Sacral fracture: At this time I suspect that she was far too active yesterday clear exacerbated her discomfort. She is much more comfortable at this time. She I would recommend transfer to a halfway where she could begin transfers and short courses of ambulation only. She is to continue with no lifting more than 5 pounds. She understands agrees with this plan. Present on Admission?: Yes History of Present Illness Reason for Consultation: Back pain Attending Physician: Mushtaq Phillips, History of Present Illness Patient is much improved today. States her back pain is controlled. She is not describing any radicular complaints or numbness in her legs at this time. Rosina does describe difficulty with ambulating her legs "not cooperating". She does feel that she overdid it yesterday with therapy and that clearly exacerbated her discomfort. Allergies Allergy/AdvReac Type Severity Reaction Status Date / Time nadolol AdvReac Unknown GI UPSET Verified 02/15/20 14:49 nitroglycerin AdvReac Unknown HEADACHE Verified 02/15/20 14:49 NSAIDS (Non-Steroidal AdvReac Unknown GI UPSET Verified 02/15/20 14:49 Anti-Inflamma Home Medications Home Medications Medication Instructions Recorded Confirmed Type aspirin [Aspirin Low Dose] 81 mg PO QAM 04/02/18 02/15/20 History atorvastatin 40 mg PO HS 04/02/18 02/15/20 History carvedilol 12.5 mg PO BID 04/02/18 02/15/20 History fluoxetine [Prozac] 40 mg PO QAM 04/02/18 02/15/20 History furosemide [Lasix] 20 mg PO DAILY PRN 04/02/18 02/15/20 History gabapentin 300 mg PO TID 04/02/18 02/15/20 History metformin 500 mg PO BID 04/02/18 02/15/20 History nitroglycerin 1 dose TRANSLINGUAL DIRECTED PRN 04/02/18 02/15/20 History pantoprazole 40 mg PO QAM 04/02/18 02/15/20 History terazosin 2 mg PO HS 04/02/18 02/15/20 History amlodipine 5 mg PO QAM 03/29/19 02/15/20 History betamethasone dipropionate 1 applic TOPICAL BID PRN 03/29/19 02/15/20 History levothyroxine 25 mcg PO QAM 09/08/19 02/15/20 History hydralazine 25 mg PO TID 01/29/20 02/15/20 History Patient History Medical History CAD (coronary artery disease) 1991 - PTCA/PCI to ramus intermedius complicated by spiral dissection non-obstructive per 2017 cardiac cath Chronic back pain LLE radiculopathy CVA (cerebral vascular accident) 2017, residual unsteady, left sided weakness Depression Diabetes mellitus, type II Dyslipidemia GERD (gastroesophageal reflux disease) Hiatal hernia History of breast cancer right breast HTN (hypertension) Hypothyroidism IBS (irritable bowel syndrome) Osteoarthritis PAD (peripheral artery disease) severe right brachiocephalic stenosis and moderate to severe abdominal aortic stenosis- under surveillance by cardiovascular PAF (paroxysmal atrial fibrillation) post operative, no further reoccurance Rheumatoid arthritis Surgical History H/O repair of right rotator cuff 2013 History of back surgery 2019 History of bilateral knee arthroplasty Left (1995), right (2005) History of cardiac cath [facility]-2017 NO STENTS History of cholecystectomy 1998 History of colonoscopy History of modified radical mastectomy of right breast 2011 History of total knee replacement left revision Nasal fracture repair Status post lumbar surgery Status post renal artery angioplasty 1991 Family History Daughter Family history of reaction to anesthesia SLOW TO WAKE UP Mother Family history of diabetes mellitus Other Diabetes Heart disease Hypertension Social History Smoking Status: Never smoker Second Hand Exposure: No; Hx Alcohol Use: No Hx Substance Use: No Preferred Language: [place] Communication Ability: Effective Visual Impairment: No Limitations Hearing Ability: Normal Switch Repairer Required: No Beliefs That Will Affect Care: None marital status: Current Living Situation: Spouse current occupational status: retired Feels Safe at Home: Yes Safety Concerns: Feels Safe At This Time Physical Exam Physical Exam: On exam she is in the chair at the bedside. She looks very healthy. The dressings in place there is no evidence of swelling or erythema. She has reasonable strength testing lower extremities. Results & Data ([facility]) Vital Signs (Past 12 Hours) Vital Signs Temp Pulse Resp BP Pulse Ox 02/16/20 07:47 36.8 C 112 H 20 155/94 H 96
[2020-02-16] MEDS: TERAZOSIN HCL 1 MG CAP PO SCH (20:38)
[2020-02-16] MEDS: ATORVASTATIN 40 MG TAB PO SCH (20:38)
[2020-02-17] MEDS: cefTRIAXone SODIUM 1,000 MG in DEXTROSE 5% 50 ML IV SCH (02:13)
[2020-02-17] MEDS ORDERED: METOPROLOL TARTRATE 1 MG/ML VIAL IV PRN (04:49)
[2020-02-17] MEDS ORDERED: GLUCAGON FOR INJ 1 MG VIAL SQ PRN (05:00)
[2020-02-17] MEDS ORDERED: GLUCOSE 10 TABS/TUBE PO PRN (05:00)
[2020-02-17] MEDS ORDERED: GLUCOSE 40% GEL 15 GM TUBE PO PRN (05:00)
[2020-02-17] MEDS ORDERED: CARBOHYDRATES FOR HYPOGLYCEMIA PO PRN (05:00)
[2020-02-17] MEDS ORDERED: DEXTROSE 50% 50 ML SYRINGE IV PRN (05:00)
[2020-02-17] MEDS: TRAMADOL HCL 50 MG TABLET PO PRN ×3 (05:09→21:13)
[2020-02-17] MEDS: LEVOTHYROXINE SODIUM 25 MCG TABLET PO SCH (05:15)
[2020-02-17 06:00] LABS: Eosinophils # (auto) 0.01 K/uL (0-0.5); Eosinophils % (auto) 0.1 %; Hematocrit (blood only) 30.6 % (37-47); Hemoglobin 9.9 g/dL (12.0-16.0); Immature Granulocytes # (auto) 0.05 K/uL (0.00-0.02); Immature Granulocytes % (auto) 0.5 %; Lymphocytes # (auto) 1.21 K/uL (1.2-3.4); Mean Corpuscular Hemoglobin 31.9 pg (25-34); Mean Corpuscular Hgb Conc 32.4 g/dL (32-36); Mean Corpuscular Volume 98.7 fL (80-100); Mean Platelet Volume 8.5 fL (7.4-10.4); Monocytes # (auto) 0.84 K/uL (0.11-0.59); Monocytes % (auto) 7.6 %; Neutrophils # (auto) 8.92 K/uL (1.4-6.5); Neutrophils % (auto) 80.8 %; Platelet Count 151 K/uL (130-400); RDW Coefficient of Variation 14.5 % (11.5-14.5); RDW Standard Deviation 51.9 fL (36.4-46.3); White Blood Count 11.03 K/uL (4.8-10.8)
[2020-02-17 06:31] LABS: Alanine Aminotransferase 19 U/L (12-78); Albumin Level 2.3 gm/dl (3.4-5.0); Aspartate Aminotransferase 17 U/L (15-37); BUN Creatinine Ratio 19.9 (10-20); Blood Urea Nitrogen 14 mg/dl (7-18); Calcium 8.4 mg/dl (8.5-10.1); Carbon Dioxide 27 mmol/L (21-32); Chloride 95 mmol/L (98-107); Creatinine Clr Calc Pharmacy 91.6 ml/min; Est GFR (African American) 99.2; Est GFR (Non-African American) 85.6; Glucose 175 mg/dl (70-99); Magnesium 1.2 mg/dl (1.8-2.4); Potassium 2.9 mmol/L (3.5-5.1); Sodium 132 mmol/L (136-145)
[2020-02-17 06:32] LABS: Albumin Globulin Ratio 0.7 (0.9-2); Alkaline Phosphatase 172 U/L (45-117); Bilirubin,Total 1.1 mg/dl (0.2-1); Globulin 3.5 gm/dl (2.5-4.0); Total Protein 5.8 gm/dl (6.4-8.2); Troponin I < 0.015 ng/ml (0-0.045)
[2020-02-17] MEDS: INSULIN ASPART 100 UNITS/ML 3 ML PEN SC SCH ×4 (08:39→20:29)
[2020-02-17] MEDS: PANTOprazole 40 MG TAB PO SCH (08:41)
[2020-02-17] MEDS: FLUOXETINE HCL 20 MG CAP PO SCH (08:41)
[2020-02-17] MEDS: GABAPENTIN 300 MG CAP PO SCH ×3 (08:42→20:20)
[2020-02-17] MEDS: AMLODIPINE BESYLATE 5 MG TAB PO SCH (08:42)
[2020-02-17] MEDS: ASPIRIN 81 MG ECTAB PO SCH (08:42)
[2020-02-17] MEDS: carvediloL 12.5 MG TAB PO SCH (08:42)
[2020-02-17] MEDS ORDERED: METOPROLOL TARTRATE 1 MG/ML VIAL IV STA (09:06)
--- NOTE | 2020-02-17 09:06 | Hospitalist Progress Note ---
Date of Service February 17, 2020 Assessment & Plan (1) Back pain: (2) Seroma: (3) Leukocytosis: -Likely secondary to postoperative seroma is identified on CT -No need for abx per ortho (4) Postoperative back pain: 74-year-old female, with history of CAD, hypertension, diabetes mellitus type 2, well-controlled, RA, anemia, and multiple recent back surgeries, who now presents with back pain. Patient was admitted under Dr. Street's service, and was recently discharged to [facility]. Patient was experiencing more back pain after physical therapy, and therefore she presented to emergency room. During her last admission, she underwent seroma incision and drainage, L1 compression fracture kyphoplasty, and also lumbar pelvic fusion for sacral fracture. CT of lumbar spine was obtained in the emergency room, showed acute bilateral sacral insufficiency fractures, unchanged alignment. Unchanged appearance of T12 and L1 compression deformities with prior kyphoplasty. Posterior interbody malcolm and screw fusion at L2 S1 with multilevel discectomy changes re- demonstrated. Hardware appears intact. Also showed ill-defined air and fluid- filled collection within the subcutaneous and paraspinal muscular distribution of the midline incision measures over 12 cm in length, sterilely cannot be determined by imaging alone. Dr. Street aware of the patient, will officially consult for further recommendations -Patient also has leukocytosis, and seroma identified on CT, Dr. Street says no abx needed, has Abx beeds -Tylenol and tramadol ordered for back pain (5) Diabetes mellitus, type II: -Well-controlled, A1c 6.5% in 12/2019 -May continue metformin for now, will switch to insulin if patient will require prolonged admission (6) Atrial fibrillation with RVR: Now in PCU-Cards to see, Metoprolol (7) Anemia: Hemoglobin 10.3, actually improved since last admission earlier this month -Continue to monitor HTN -Currently blood pressure acceptable, 142/72 -On discharge had increase in hydralazine to 50 mg 3 times daily -Continue to monitor CAD -Stable, no chest pain -Continue aspirin, statin, beta-pamela UTI Rocephin RA -Previously on Plaquenil and methotrexate, currently not taking any medications -No acute RA involving any joints Labs checked DC to SNF when stable, [facility] [place] Code: Full Dispo: Med/ Surg DVT ppx: SCDs for now will further evaluate if patient has prolonged admission ROS-No Headache, No Visual Changes, No Nausea, No Vomiting, No Fever, No Chills, No Neck Pain or Stiffness, No Chest Pain, No Palpitations, No SOB, No VALDEZ, No Cough, No Sputum, No Wheezing, No Abdominal Pain, No Diarrhea, No Hematemesis, No Hemoptysis, No Unexpected Weight Loss, No Flank pain, No Melena, No Hematochezia, No Frequency, No Urgency, No Burning, No Hematuria, No Rashes, No Diaphoresis. Appetite is Normal, +Back Pain Physical Exam Gen-AAO x 3, NAD, Afebrile Head-NCAT, EOMI, PERRLA, Anicteric Sclera, No Posterior Pharyngeal Erythema Neck-Supple, No JVD, No Thyromegaly, No Masses, No LAD, No Bruits Lungs-Clear to Auscultation Bilaterally, No Rales, No Rhonchi, No Wheezing, No Crepitus Chest-No S4, +S1, +S2, No S3, No Murmurs, No Rubs, No Gallops, No Ectopy Abdomen-Soft, Bowel Sounds Present, Non Tender, Non Distended, No Hepatomegaly, No Splenomegaly, No Palpable Masses, No Rebound, No Rigidity, No Guarding Musculoskeletal-Full Range of Motion Bilaterally, No CVAT Extremities-No Cyanosis, No Clubbing, No Edema Nuero-Cranial Nerves II-XII grossly intact, Motor WNL, DTRs WNL, Strength WNL, Non Focal Psych-Normal Mood Admission and Anticipated Discharge Date Admission Date: February 15, 2020 Results & Data Results & Data ([facility]) Vital Signs (Past 12 Hours) Vital Signs Temp Pulse Pulse Pulse Resp BP Pulse Ox 02/17/20 08:18 114 H 02/17/20 08:17 36.7 C 120 H 20 130/61 96 02/17/20 05:10 130 H 02/17/20 04:40 36.7 C 130 H 20 171/103 H 94 02/17/20 03:03 120 H 02/16/20 23:27 36.9 C 118 H 18 136/75 95 (1) Back pain Back pain laterality: midline Back pain location: low back pain Chronicity: chronic Sciatica presence: unspecified whether sciatica present Qualified Code(s): M54.5 - Low back pain; G89.29 - Other chronic pain (2) Anemia Anemia type: unspecified type Qualified Code(s): D64.9 - Anemia, unspecified
[2020-02-17] MEDS ORDERED: POTASSIUM CHLORIDE 20 MEQ TABCR PO ONE (09:15)
[2020-02-17] MEDS: MAGNESIUM SULFATE / D5W 1 GM/100 ML BAG IV SCH ×2 (09:23→11:17)
[2020-02-17] MEDS: MoRPHine SULFATE 2 MG/ML CARP IV PRN ×3 (09:24→23:30)
--- NOTE | 2020-02-17 09:46 | Orthopedic Progress Note ---
Date of Service February 17, 2020 Assessment & Plan (1) Sacral fracture: Admission and Anticipated Discharge Date Admission Date: February 15, 2020 I recommend bed to chair transfers with ambulation short distances as tolerated. Ultimately she would best served with transfer to a fdc facility when she is medically able. Subjective Patient's back pain is controlled still has some numbness in the lower extremities but no radicular complaints. Physical Exam Physical Exam: On exam she appears much more comfortable. She has reasonable strength testing lower extremities. Results & Data ([facility]) Vital Signs (Past 12 Hours) Vital Signs Temp Pulse Pulse Pulse Resp BP Pulse Ox 02/17/20 09:24 117 H 02/17/20 08:18 114 H 02/17/20 08:17 36.7 C 120 H 20 130/61 96 02/17/20 05:10 130 H 02/17/20 04:40 36.7 C 130 H 20 171/103 H 94 02/17/20 03:03 120 H 02/16/20 23:27 36.9 C 118 H 18 136/75 95
[2020-02-17] MEDS: METOPROLOL SUCC 50MG EXT REL TAB PO SCH ×2 (10:40→11:23)
[2020-02-17] MEDS: ACETAMINOPHEN 500 MG TAB PO SCH ×5 (10:40→23:32)
[2020-02-17] MEDS: POTASSIUM CHLORIDE / WTR 10 MEQ/100 ML PLCT IV SCH ×4 (10:40→13:23)
[2020-02-17] MEDS ORDERED: POTASSIUM CHLORIDE / WTR 10 MEQ/100 ML PLCT IV STA (11:09)
--- NOTE | 2020-02-17 11:09 | Cardiology Consultation ---
Date of Consultation February 17, 2020 Assessment & Plan (1) Atrial fibrillation with RVR: (2) Hypokalemia: (3) Hypomagnesemia: (4) Anemia: (5) CAD (coronary artery disease): (6) PAD (peripheral artery disease): (7) HTN (hypertension): (8) Diabetes mellitus type 2 in nonobese: (9) CVA (cerebral vascular accident): Replace electrolytes as indicated. Repeat basic metabolic panel and serum magnesium level this afternoon. Discontinue carvedilol in favor metoprolol tartrate 25mg TID. If atrial fibrillation persists, will initiate IV heparin if no objections from the orthopedic surgery service. Utilize PRN doses of IV Lopressor as needed to maintain ventricular response below 120 bpm. Patient remains essentially asymptomatic in regard to her atrial fibrillation. Repeat resting 2D echocardiogram. Monitor anemia daily. Consider addition of iron supplementation. All questions answered to satisfaction both patient and her at bedside. Thank you for allowing me to participate in the care of your patient. History of Present Illness Reason for Consultation: Atrial fibrillation with rapid ventricular response Requesting Physician: Dr. Phillips Attending Physician: Mushtaq Phillips DO History of Present Illness 74-year-old female with complex history listed below admitted 02/15/2020 with postoperative back pain, seroma, and leukocytosis. Elevated heart rate overnight reported. ECG confirms presence of atrial fibrillation with rapid ventricular response. Patient transferred to the progressive care unit. Profound hypokalemia and hypomagnesemia noted. Patient is unaware of her atrial fibrillation. Notes a mild fluttering occasionally. Denies chest discomfort or heaviness. Heart rates as high as 130 bpm recorded. Received 1 dose of IV Lopressor and her a.m. dose of carvedilol 12.5 mg earlier. Heart rate now in the range of 100 to 110 bpm. She appears comfortable. No history of atrial fibrillation. Patient complains of low back pain. Improved with narcotic analgesics. Recently admitted last week secondary to back pain requiring seroma incision and drainage, L1 compression fracture kyphoplasty, and lumbar pelvic fusion for sacral fracture. Past Medical and Surgical History 1. History of ischemic heart disease 2. s/p PTCA to the ramus intermedius complicated by spiral dissection in 1991 3. Presentation in the Fall of 2016 with chest discomfort concerning for angina leading to abnormal nuclear stress testing and ultimately diagnostic cardiac catheterization on May 26, 2017. Coronary anatomy was noted to be right-dominant and nonobstructive. There was a 20% proximal left main stenosis, 10% mid LAD stenosis, 20% distal LAD stenosis, 20% proximal RCA stenosis in an area of moderate calcification, 30% mid RCA stenosis in an area of moderate calcification, 20% ostial stenosis of the right PDA, normal left circumflex, normal ramus intermedius. 4. Josseline procedure course complicated by a transient ischemic attack (left sided facial asymmetry along with left upper and left lower pareshesias) MRA of the neck at that time showed patent common carotid and internal carotid arteries. There was some degree of stenosis suggested at the origin of the right vertebral artery and high-grade stenosis of the origin of the right external carotid artery a well as the right subclavian artery. MRI revealed a punctate focus of restricted diffusion consistent with acute ischemia in the right cerebellar hemisphere with no other sites of ischemia observed; this did not correlate with the patient's neurological examination per documentation. Neurological symptoms resolved prior to discharge. 5. 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 Hypertension. Recurrent hyperkalemia with ACEI/A2RB, requiring two prior hospital admissions at [facility] secondary to hyperkalemia. Past issues with HCTZ. Headaches with nitrates. 7. Type II diabetes mellituswith neuropathy 8. Dyslipidemia 9. Obesity 10. Mild obstructive sleep apnea (untreated). 11. Osteoarthritis 12. Chronic renal insufficiency 13. Iron deficiency anemia. 14. Breast cancerstatus post mastectomy complicated by wound infection requiring a wound vac x 4 months and chemotherapy 15. Depression 16. GERD 17. Diverticulosis 18. Internal hemorrhoids 19. Colonoscopy last on September 26, 2018, tubular adenoma polypectomy. Repeat colonoscopy due in September 2019. 20. IBS 21. Gout 22. Urinary incontinence 23. Lumbar disc disease 24. Bilateral knee replacements. 25. Redo left knee replacement. 26. Right rotator cuff repair. 27. Right shoulder replacement. 28. Cholecystectomy. 29. Breast biopsy. 30. Left wrist surgery. 31. Closed nasal reduction by Dr. Rust on September 15, 2018. 32. Mechanical fall on October 28, 2018 with resultant T12 compression fracture requiring kyphoplasty by Dr. Rashaad Street at [facility] on 11/15/2018. Allergies Allergy/AdvReac Type Severity Reaction Status Date / Time nadolol AdvReac Unknown GI UPSET Verified 02/15/20 14:49 nitroglycerin AdvReac Unknown HEADACHE Verified 02/15/20 14:49 NSAIDS (Non-Steroidal AdvReac Unknown GI UPSET Verified 02/15/20 14:49 Anti-Inflamma Home Medications Home Medications Medication Instructions Recorded Confirmed Type aspirin [Aspirin Low Dose] 81 mg PO QAM 04/02/18 02/15/20 History atorvastatin 40 mg PO HS 04/02/18 02/15/20 History carvedilol 12.5 mg PO BID 04/02/18 02/15/20 History fluoxetine [Prozac] 40 mg PO QAM 04/02/18 02/15/20 History furosemide [Lasix] 20 mg PO DAILY PRN 04/02/18 02/15/20 History gabapentin 300 mg PO TID 04/02/18 02/15/20 History metformin 500 mg PO BID 04/02/18 02/15/20 History nitroglycerin 1 dose TRANSLINGUAL DIRECTED PRN 04/02/18 02/15/20 History pantoprazole 40 mg PO QAM 04/02/18 02/15/20 History terazosin 2 mg PO HS 04/02/18 02/15/20 History amlodipine 5 mg PO QAM 03/29/19 02/15/20 History betamethasone dipropionate 1 applic TOPICAL BID PRN 03/29/19 02/15/20 History levothyroxine 25 mcg PO QAM 09/08/19 02/15/20 History hydralazine 25 mg PO TID 01/29/20 02/15/20 History Patient History Medical History CAD (coronary artery disease) 1991 - PTCA/PCI to ramus intermedius complicated by spiral dissection non-obstructive per 2017 cardiac cath Chronic back pain LLE radiculopathy CVA (cerebral vascular accident) 2017, residual unsteady, left sided weakness Depression Diabetes mellitus, type II Dyslipidemia GERD (gastroesophageal reflux disease) Hiatal hernia History of breast cancer right breast HTN (hypertension) Hypothyroidism IBS (irritable bowel syndrome) Osteoarthritis PAD (peripheral artery disease) severe right brachiocephalic stenosis and moderate to severe abdominal aortic stenosis- under surveillance by cardiovascular PAF (paroxysmal atrial fibrillation) post operative, no further reoccurance Rheumatoid arthritis Surgical History H/O repair of right rotator cuff 2013 History of back surgery 2019 History of bilateral knee arthroplasty Left (1995), right (2005) History of cardiac cath [facility]-2017 NO STENTS History of cholecystectomy 1998 History of colonoscopy History of modified radical mastectomy of right breast 2011 History of total knee replacement left revision Nasal fracture repair Status post lumbar surgery Status post renal artery angioplasty 1991 Family History Daughter Family history of reaction to anesthesia SLOW TO WAKE UP Mother Family history of diabetes mellitus Other Diabetes Heart disease Hypertension Social History Smoking Status: Never smoker Second Hand Exposure: No; Hx Alcohol Use: No Hx Substance Use: No Preferred Language: Urdu Communication Ability: Effective Visual Impairment: No Limitations Hearing Ability: Normal Electric Gas Appliances Demonstrator Required: No Beliefs That Will Affect Care: None marital status: Current Living Situation: Spouse current occupational status: retired Feels Safe at Home: Yes Safety Concerns: Feels Safe At This Time Review of Systems Review of Systems: All systems reviewed & are unremarkable except as noted in HPI & below Physical Exam Constitutional: well nourished, + ill appearing and + obese; no acute distress Respiratory: normal respiratory effort, lungs clear to auscultation Cardiovascular: Rate/Rhythm: + tachycardic and + irregularly irregular Heart Sounds: normal S1 and normal S2; no murmur Palpation: normal PMI Vessels: radial pulses present; no JVD Extremities: no edema Gastrointestinal (Abdomen): Inspection/Auscultation: abdomen normal to inspection and normal bowel sounds; abdomen not distended Percussion/Palpation: abdomen soft; abdomen nontender, no guarding and abdomen not rigid Musculoskeletal: no cyanosis or clubbing, extremities motor strength 5/5 Skin: no rashes, warm and dry Neurologic: moves all extremities; no focal motor deficits Speech / Cognition: normal speech Motor/Sensory: no tremor Psychiatric: A+Ox3, euthymic affect Results & Data ([facility]) Vital Signs (Past 12 Hours) Vital Signs Temp Pulse Pulse Pulse Resp BP Pulse Ox 02/17/20 09:24 117 H 02/17/20 08:18 114 H 02/17/20 08:17 36.7 C 120 H 20 130/61 96 02/17/20 05:10 130 H 02/17/20 04:40 36.7 C 130 H 20 171/103 H 94 02/17/20 03:03 120 H 02/16/20 23:27 36.9 C 118 H 18 136/75 95 (1) Anemia Anemia type: unspecified type Qualified Code(s): D64.9 - Anemia, unspecified
[2020-02-17] MEDS ORDERED: PERFLUTREN LIPID MICROSPHERE (DEFINITY) IV ONE (11:38)
[2020-02-17] MEDS: METOPROLOL TARTRATE 25 MG TAB PO SCH ×2 (13:16→20:20)
[2020-02-17 18:19] LABS: BUN Creatinine Ratio 17.6 (10-20); Blood Urea Nitrogen 12 mg/dl (7-18); Calcium 8.3 mg/dl (8.5-10.1); Carbon Dioxide 28 mmol/L (21-32); Chloride 97 mmol/L (98-107); Est GFR (African American) 99.2; Est GFR (Non-African American) 85.6; Glucose 189 mg/dl (70-99); Magnesium 1.8 mg/dl (1.8-2.4); Sodium 128 mmol/L (136-145); Troponin I < 0.015 ng/ml (0-0.045)
[2020-02-17 19:52] LABS: Partial Thromboplastin Time 26.8 Seconds (21.0-31.0); Prothrombin Time 10.3 Seconds (9.0-12.0)
[2020-02-17] MEDS ORDERED: HEPARIN IV BOLUS 6,000 UNITS in SYRINGE 0 ML IV ONE (20:00)
[2020-02-17] MEDS: HEPARIN SODIUM/DEXTROSE 25,000 UNITS/500 ML BAG IV SCH (20:12)
[2020-02-17] MEDS: SODIUM CHLORIDE 0.9% 1000ML 1,000 ML IV SCH (20:19)
[2020-02-17] MEDS: ATORVASTATIN 40 MG TAB PO SCH (20:20)
[2020-02-17] MEDS: TERAZOSIN HCL 1 MG CAP PO SCH (20:20)
[2020-02-18] MEDS: cefTRIAXone SODIUM 1,000 MG in DEXTROSE 5% 50 ML IV SCH (02:14)
[2020-02-18] MEDS: TRAMADOL HCL 50 MG TABLET PO PRN ×3 (02:20→23:18)
[2020-02-18 02:36] LABS: Eosinophils # (auto) 0.04 K/uL (0-0.5); Eosinophils % (auto) 0.4 %; Hematocrit (blood only) 27.4 % (37-47); Immature Granulocytes # (auto) 0.03 K/uL (0.00-0.02); Immature Granulocytes % (auto) 0.3 %; Lymphocytes # (auto) 1.13 K/uL (1.2-3.4); Mean Corpuscular Hemoglobin 31.5 pg (25-34); Mean Corpuscular Hgb Conc 32.8 g/dL (32-36); Mean Corpuscular Volume 95.8 fL (80-100); Mean Platelet Volume 8.2 fL (7.4-10.4); Monocytes # (auto) 0.61 K/uL (0.11-0.59); Monocytes % (auto) 6.5 %; Neutrophils # (auto) 7.64 K/uL (1.4-6.5); Neutrophils % (auto) 80.8 %; Platelet Count 126 K/uL (130-400); RDW Coefficient of Variation 14.2 % (11.5-14.5); RDW Standard Deviation 50.3 fL (36.4-46.3); Red Blood Count 2.86 M/uL (4.2-5.4); White Blood Count 9.45 K/uL (4.8-10.8)
[2020-02-18 02:56] LABS: Albumin Level 2.1 gm/dl (3.4-5.0); BUN Creatinine Ratio 18.9 (10-20); Calcium 8.2 mg/dl (8.5-10.1); Creatinine Clr Calc Pharmacy 105.5 ml/min; Est GFR (African American) 104.5; Est GFR (Non-African American) 90.2; Potassium 3.8 mmol/L (3.5-5.1)
[2020-02-18 02:57] LABS: Partial Thromboplastin Ratio 4.2
[2020-02-18 02:59] LABS: Albumin Globulin Ratio 0.6 (0.9-2); Bilirubin,Total 1.2 mg/dl (0.2-1); Globulin 3.5 gm/dl (2.5-4.0); Total Protein 5.6 gm/dl (6.4-8.2)
[2020-02-18 03:09] LABS: Partial Thromboplastin Time 117.4 Seconds (21.0-31.0)
[2020-02-18] MEDS: LEVOTHYROXINE SODIUM 25 MCG TABLET PO SCH (04:32)
[2020-02-18] MEDS: ACETAMINOPHEN 500 MG TAB PO SCH ×6 (04:32→23:18)
[2020-02-18] MEDS: MoRPHine SULFATE 2 MG/ML CARP IV PRN ×2 (06:40→19:37)
[2020-02-18] MEDS: SODIUM CHLORIDE 0.9% 1000ML 1,000 ML IV SCH ×2 (07:37→19:46)
[2020-02-18] MEDS: INSULIN ASPART 100 UNITS/ML 3 ML PEN SC SCH ×4 (07:45→20:30)
--- NOTE | 2020-02-18 08:24 | Hospitalist Progress Note ---
Date of Service February 18, 2020 Assessment & Plan (1) Back pain: (2) Seroma: (3) Leukocytosis: -Likely secondary to postoperative seroma is identified on CT -No need for abx per ortho (4) Postoperative back pain: 74-year-old female, with history of CAD, hypertension, diabetes mellitus type 2, well-controlled, RA, anemia, and multiple recent back surgeries, who now presents with back pain. Patient was admitted under Dr. Street's service, and was recently discharged to [facility]. Patient was experiencing more back pain after physical therapy, and therefore she presented to emergency room. During her last admission, she underwent seroma incision and drainage, L1 compression fracture kyphoplasty, and also lumbar pelvic fusion for sacral fracture. CT of lumbar spine was obtained in the emergency room, showed acute bilateral sacral insufficiency fractures, unchanged alignment. Unchanged appearance of T12 and L1 compression deformities with prior kyphoplasty. Posterior interbody malcolm and screw fusion at L2 S1 with multilevel discectomy changes re- demonstrated. Hardware appears intact. Also showed ill-defined air and fluid- filled collection within the subcutaneous and paraspinal muscular distribution of the midline incision measures over 12 cm in length, sterilely cannot be determined by imaging alone. Dr. Street aware of the patient, will officially consult for further recommendations -Patient also has leukocytosis, and seroma identified on CT, Dr. Street says no abx needed, has Abx beeds -Tylenol and tramadol ordered for back pain -Abx needed for UTI (5) Diabetes mellitus, type II: -Well-controlled, A1c 6.5% in 12/2019 -May continue metformin for now, will switch to insulin if patient will require prolonged admission (6) Atrial fibrillation with RVR: Now in PCU-Cards on case, Metoprolol Tartrate increase to 50 (7) Anemia: Hemoglobin 10.3, actually improved since last admission earlier this month -Continue to monitor HTN -Currently blood pressure acceptable, 142/72 -On discharge had increase in hydralazine to 50 mg 3 times daily -Continue to monitor CAD -Stable, no chest pain -Continue aspirin, statin, beta-pamela UTI Rocephin RA -Previously on Plaquenil and methotrexate, currently not taking any medications -No acute RA involving any joints Labs checked DC to SNF when stable, [place] out Code: Full Dispo: Med/ Surg DVT ppx: SCDs for now will further evaluate if patient has prolonged admission ROS-No Headache, No Visual Changes, No Nausea, No Vomiting, No Fever, No Chills, No Neck Pain or Stiffness, No Chest Pain, No Palpitations, No SOB, No VALDEZ, No Cough, No Sputum, No Wheezing, No Abdominal Pain, No Diarrhea, No Hematemesis, No Hemoptysis, No Unexpected Weight Loss, No Flank pain, No Melena, No Hematoch ezia, No Frequency, No Urgency, No Burning, No Hematuria, No Rashes, No Diaphoresis. Appetite is Normal, +Back Pain Physical Exam Gen-AAO x 3, NAD, Afebrile Head-NCAT, EOMI, PERRLA, Anicteric Sclera, No Posterior Pharyngeal Erythema Neck-Supple, No JVD, No Thyromegaly, No Masses, No LAD, No Bruits Lungs-Clear to Auscultation Bilaterally, No Rales, No Rhonchi, No Wheezing, No Crepitus Chest-No S4, +S1, +S2, No S3, No Murmurs, No Rubs, No Gallops, No Ectopy Abdomen-Soft, Bowel Sounds Present, Non Tender, Non Distended, No Hepatomegaly, No Splenomegaly, No Palpable Masses, No Rebound, No Rigidity, No Guarding Musculoskeletal-Full Range of Motion Bilaterally, No CVAT Extremities-No Cyanosis, No Clubbing, No Edema Nuero-Cranial Nerves II-XII grossly intact, Motor WNL, DTRs WNL, Strength WNL, Non Focal Psych-Normal Mood Admission and Anticipated Discharge Date Admission Date: February 15, 2020 Results & Data Results & Data ([facility]) Vital Signs (Past 12 Hours) Vital Signs Temp Pulse Pulse Resp BP Pulse Ox 02/18/20 08:12 115 H 02/18/20 07:27 36.6 C 116 H 16 150/82 H 96 02/18/20 03:26 36.6 C 106 H 169/84 H 93 02/18/20 00:00 36.6 C 101 H 107 H 147/82 H 97 (1) Back pain Back pain laterality: midline Back pain location: low back pain Chronicity: chronic Sciatica presence: unspecified whether sciatica present Qualified Code(s): M54.5 - Low back pain; G89.29 - Other chronic pain (2) Anemia Anemia type: unspecified type Qualified Code(s): D64.9 - Anemia, unspecified
[2020-02-18] MEDS: METOPROLOL TARTRATE 50 MG TAB PO SCH ×3 (08:51→19:44)
[2020-02-18] MEDS: GABAPENTIN 300 MG CAP PO SCH ×3 (08:52→19:43)
[2020-02-18] MEDS: PANTOprazole 40 MG TAB PO SCH (08:52)
[2020-02-18] MEDS: FLUOXETINE HCL 20 MG CAP PO SCH (08:52)
[2020-02-18] MEDS: AMLODIPINE BESYLATE 5 MG TAB PO SCH (08:52)
[2020-02-18] MEDS: ASPIRIN 81 MG ECTAB PO SCH (08:52)
--- NOTE | 2020-02-18 11:03 | Cardiology Progress Note ---
Date of Service February 18, 2020 Assessment & Plan (1) Atrial fibrillation with RVR: (2) Hypokalemia: (3) Hypomagnesemia: (4) Anemia: (5) CAD (coronary artery disease): (6) PAD (peripheral artery disease): (7) HTN (hypertension): (8) Diabetes mellitus type 2 in nonobese: (9) CVA (cerebral vascular accident): 20meq KCL today. Repeat basic metabolic panel and magnesium level in a.m. Metoprolol titrated to 50 mg 3 times daily. Monitor telemetry. Continue intravenous heparin infusion. Discussed potential need for external direct-current cardioversion. Patient and voiced understanding. Continue conservative medical management, intravenous hydration, and rate cont rol strategy for the time being. Replace electrolytes as indicated. Monitor anemia daily. Consider addition of iron supplementation. All questions answered to satisfaction both patient and her at bedside. Admission and Anticipated Discharge Date Admission Date: February 15, 2020 Subjective Patient seen and examined the bedside. Continues to report significant low back pain. Feeling fatigued and exhausted. Reports poor appetite. voices concern regarding poor p.o. intake and hydration. IV normal saline initiated yesterday due to presence of hyponatremia on repeat lab testing. Potassium and magnesium supplemented. Metoprolol titrated to 50 mg 3 times daily by internal medicine this morning. IV heparin infusing. No signs/symptoms of GI/ blood loss. She offers no new concerns/complaints this time. Review of Systems Review of Systems: All systems reviewed & are unremarkable except as noted in HPI & below Physical Exam Constitutional: well nourished, + ill appearing and + obese; no acute distress Respiratory: normal respiratory effort, lungs clear to auscultation Cardiovascular: Rate/Rhythm: + tachycardic and + irregularly irregular Heart Sounds: normal S1 and normal S2; no murmur Palpation: normal PMI Vessels: radial pulses present; no JVD Extremities: no edema Gastrointestinal (Abdomen): Inspection/Auscultation: abdomen normal to inspection and normal bowel sounds; abdomen not distended Percussion/Palpation: abdomen soft; abdomen nontender, no guarding and abdomen not rigid Musculoskeletal: no cyanosis or clubbing, extremities motor strength 5/5 Skin: no rashes, warm and dry Neurologic: moves all extremities; no focal motor deficits Speech / Cognition: normal speech Motor/Sensory: no tremor Psychiatric: A+Ox3, euthymic affect Results & Data ([facility]) Vital Signs (Past 12 Hours) Vital Signs Temp Pulse Pulse Resp BP Pulse Ox 02/18/20 08:12 115 H 02/18/20 07:27 36.6 C 116 H 16 150/82 H 96 02/18/20 03:26 36.6 C 106 H 169/84 H 93 02/18/20 00:00 36.6 C 101 H 107 H 147/82 H 97 (1) Anemia Anemia type: unspecified type Qualified Code(s): D64.9 - Anemia, unspecified
[2020-02-18 11:19] LABS: Partial Thromboplastin Ratio 2.5
[2020-02-18] MEDS ORDERED: POTASSIUM CHLORIDE 20 MEQ TABCR PO ONE (11:30)
[2020-02-18 11:33] LABS: Partial Thromboplastin Time 70.9 Seconds (21.0-31.0)
--- NOTE | 2020-02-18 12:46 | Orthopedic Progress Note ---
Date of Service February 18, 2020 Assessment & Plan (1) Sacral fracture: Admission and Anticipated Discharge Date Admission Date: February 15, 2020 This time I will discontinue to recommend bed to chair transfers ambulate about the room as tolerated. Subjective Patient's back pain is controlled denies any leg pain. Denies any chest pain. Physical Exam Physical Exam: Patient is in bed at this time. She has good strength testing lower extremities. Results & Data ([facility]) Vital Signs (Past 12 Hours) Vital Signs Temp Pulse Pulse Pulse Resp BP Pulse Ox 02/18/20 12:09 36.7 C 93 H 18 158/83 H 96 02/18/20 08:12 115 H 02/18/20 07:27 36.6 C 116 H 16 150/82 H 96 02/18/20 03:26 36.6 C 106 H 169/84 H 93
[2020-02-18] MEDS: HEPARIN SODIUM/DEXTROSE 25,000 UNITS/500 ML BAG IV SCH (16:59)
[2020-02-18] MEDS: ATORVASTATIN 40 MG TAB PO SCH (19:43)
[2020-02-18] MEDS: TERAZOSIN HCL 1 MG CAP PO SCH (19:43)
[2020-02-18 20:20] LABS: Partial Thromboplastin Time 56.7 Seconds (21.0-31.0)
[2020-02-19] MEDS: cefTRIAXone SODIUM 1,000 MG in DEXTROSE 5% 50 ML IV SCH (03:40)
[2020-02-19] MEDS: ACETAMINOPHEN 500 MG TAB PO SCH ×6 (03:42→23:56)
[2020-02-19] MEDS: LEVOTHYROXINE SODIUM 25 MCG TABLET PO SCH (04:19)
[2020-02-19] MEDS: TRAMADOL HCL 50 MG TABLET PO PRN ×4 (04:19→21:01)
[2020-02-19 06:51] LABS: Hematocrit (blood only) 24.7 % (37-47); Hemoglobin 8.1 g/dL (12.0-16.0); Mean Corpuscular Hemoglobin 31.2 pg (25-34); Mean Corpuscular Hgb Conc 32.8 g/dL (32-36); Mean Platelet Volume 8.1 fL (7.4-10.4); Platelet Count 119 K/uL (130-400); RDW Coefficient of Variation 14.4 % (11.5-14.5); RDW Standard Deviation 50.4 fL (36.4-46.3); White Blood Count 7.28 K/uL (4.8-10.8)
[2020-02-19 07:12] LABS: Partial Thromboplastin Ratio 2.6
[2020-02-19 07:14] LABS: Partial Thromboplastin Time 73.6 Seconds (21.0-31.0)
[2020-02-19 07:24] LABS: BUN Creatinine Ratio 17.8 (10-20); Calcium 7.8 mg/dl (8.5-10.1); Creatinine Clr Calc Pharmacy 129.4 ml/min; Est GFR (African American) 111.2; Magnesium 1.3 mg/dl (1.8-2.4); Potassium 3.3 mmol/L (3.5-5.1)
--- NOTE | 2020-02-19 07:37 | Hospitalist Progress Note ---
Date of Service February 19, 2020 Assessment & Plan (1) Back pain: (2) Seroma: (3) Leukocytosis: -Likely secondary to postoperative seroma is identified on CT -No need for abx per ortho (4) Postoperative back pain: 74-year-old female, with history of CAD, hypertension, diabetes mellitus type 2, well-controlled, RA, anemia, and multiple recent back surgeries, who now presents with back pain. Patient was admitted under Dr. Street's service, and was recently discharged to [facility]. Patient was experiencing more back pain after physical therapy, and therefore she presented to emergency room. During her last admission, she underwent seroma incision and drainage, L1 compression fracture kyphoplasty, and also lumbar pelvic fusion for sacral fracture. CT of lumbar spine was obtained in the emergency room, showed acute bilateral sacral insufficiency fractures, unchanged alignment. Unchanged appearance of T12 and L1 compression deformities with prior kyphoplasty. Posterior interbody malcolm and screw fusion at L2 S1 with multilevel discectomy changes re- demonstrated. Hardware appears intact. Also showed ill-defined air and fluid- filled collection within the subcutaneous and paraspinal muscular distribution of the midline incision measures over 12 cm in length, sterilely cannot be determined by imaging alone. Dr. Street aware of the patient, will officially consult for further recommendations -Patient also has leukocytosis, and seroma identified on CT, Dr. Street says no abx needed, has Abx beeds -Tylenol and tramadol ordered for back pain -Abx needed for UTI (5) Diabetes mellitus, type II: -Well-controlled, A1c 6.5% in 12/2019 -May continue metformin for now, will switch to insulin if patient will require prolonged admission (6) Atrial fibrillation with RVR: Now in PCU-Cards on case, Metoprolol Tartrate 50 TID Better controlled, Heparin Gtt (7) Anemia: Hemoglobin 10.3, actually improved since last admission earlier this month -Continue to monitor HTN -Currently blood pressure acceptable, 142/72 -On discharge had increase in hydralazine to 50 mg 3 times daily -Continue to monitor CAD -Stable, no chest pain -Continue aspirin, statin, beta-pamela UTI Rocephin RA -Previously on Plaquenil and methotrexate, currently not taking any medications -No acute RA involving any joints Labs checked DC to SNF when stable, [facility] out, Bridge on Warfarin Code: Full Dispo: Med/ Surg DVT ppx: SCDs for now will further evaluate if patient has prolonged admission ROS-No Headache, No Visual Changes, No Nausea, No Vomiting, No Fever, No Chills, No Neck Pain or Stiffness, No Chest Pain, No Palpitations, No SOB, No VALDEZ, No Cough, No Sputum, No Wheezing, No Abdominal Pain, No Diarrhea, No Hematemesis, No Hemoptysis, No Unexpected Weight Loss, No Flank pain, No Melena, No Hematochezia, No Frequency, No Urgency, No Burning, No Hematuria, No Rashes, No Diaphoresis. Appetite is Normal, +Back Pain Physical Exam Gen-AAO x 3, NAD, Afebrile Head-NCAT, EOMI, PERRLA, Anicteric Sclera, No Posterior Pharyngeal Erythema Neck-Supple, No JVD, No Thyromegaly, No Masses, No LAD, No Bruits Lungs-Clear to Auscultation Bilaterally, No Rales, No Rhonchi, No Wheezing, No Crepitus Chest-Irreg No S4, +S1, +S2, No S3, No Murmurs, No Rubs, No Gallops Abdomen-Soft, Bowel Sounds Present, Non Tender, Non Distended, No Hepatomegaly, No Splenomegaly, No Palpable Masses, No Rebound, No Rigidity, No Guarding Musculoskeletal-Full Range of Motion Bilaterally, No CVAT Extremities-No Cyanosis, No Clubbing, No Edema Nuero-Cranial Nerves II-XII grossly intact, Motor WNL, DTRs WNL, Strength WNL, Non Focal Psych-Normal Mood Admission and Anticipated Discharge Date Admission Date: February 15, 2020 Results & Data Results & Data ([facility]) Vital Signs (Past 12 Hours) Vital Signs Temp Pulse Resp BP Pulse Ox 02/19/20 06:55 36.9 C 102 H 20 165/83 H 96 02/19/20 03:03 37 C 100 H 18 158/72 H 95 02/18/20 22:48 36.9 C 97 H 20 146/77 H 95 02/18/20 19:48 168/95 H (1) Back pain Back pain laterality: midline Back pain location: low back pain Chronicity: chronic Sciatica presence: unspecified whether sciatica present Qualified Code(s): M54.5 - Low back pain; G89.29 - Other chronic pain (2) Anemia Anemia type: unspecified type Qualified Code(s): D64.9 - Anemia, unspecified
[2020-02-19] MEDS: METOPROLOL TARTRATE 50 MG TAB PO SCH ×3 (07:58→20:54)
[2020-02-19] MEDS: FLUOXETINE HCL 20 MG CAP PO SCH (07:59)
[2020-02-19] MEDS: PANTOprazole 40 MG TAB PO SCH (07:59)
[2020-02-19] MEDS: GABAPENTIN 300 MG CAP PO SCH ×3 (07:59→20:55)
[2020-02-19] MEDS: AMLODIPINE BESYLATE 5 MG TAB PO SCH (07:59)
[2020-02-19] MEDS: ASPIRIN 81 MG ECTAB PO SCH (07:59)
[2020-02-19] MEDS: INSULIN ASPART 100 UNITS/ML 3 ML PEN SC SCH ×4 (08:04→20:56)
--- NOTE | 2020-02-19 08:46 | Electrocardiogram Report ---
Test Reason : Blood Pressure : / mmHG Vent. Rate : 120 BPM Atrial Rate : 122 BPM P-R Int : 000 ms QRS Dur : 098 ms QT Int : 338 ms P-R-T Axes : 000 044 179 degrees QTc Int : 477 ms Atrial fibrillation with rapid ventricular response Diffuse Nonspecific ST and T wave abnormality Abnormal ECG When compared with ECG of 30-JAN-2020 09:39, Atrial fibrillation has replaced Sinus rhythm Vent. rate has increased BY [address] and T wave abnormality now present Confirmed by Ran Renteria ([id number]) on 02/19/2020 8:45:59 AM Referred By: REFERRED SELF Confirmed By:Ran Renteria
[2020-02-19] MEDS ORDERED: POTASSIUM CHLORIDE 20 MEQ TABCR PO STA (10:04)
[2020-02-19] MEDS: SODIUM CHLORIDE 0.9% 1000ML 1,000 ML IV SCH ×2 (11:11→21:01)
[2020-02-19] MEDS: MAGNESIUM OXIDE 400 MG TAB PO SCH ×2 (11:11→20:54)
[2020-02-19 13:36] LABS: INR 1.1 (0.9-1.1); Partial Thromboplastin Ratio 2.2; Prothrombin Time 11.4 Seconds (9.0-12.0)
[2020-02-19 13:41] LABS: Partial Thromboplastin Time 60.6 Seconds (21.0-31.0)
[2020-02-19] MEDS ORDERED: NURSING LOW INTENSITY WARFARIN NOMOGRAM SCH (14:00)
[2020-02-19] MEDS ORDERED: Nursing to Pharmacy Communication SCH (14:30)
[2020-02-19] MEDS: NURSING LOW INTENSITY WARFARIN NOMOGRAM SCH (14:30)
--- NOTE | 2020-02-19 14:51 | Cardiology Progress Note ---
Date of Service February 19, 2020 Assessment & Plan (1) Atrial fibrillation with RVR: (2) Hypokalemia: (3) Hypomagnesemia: (4) Anemia: (5) CAD (coronary artery disease): (6) PAD (peripheral artery disease): (7) HTN (hypertension): (8) Diabetes mellitus type 2 in nonobese: (9) CVA (cerebral vascular accident): Patient spontaneously converted to normal sinus rhythm. Potassium and magnesium levels remain significantly low today, will replete. Continue to follow electrolytes closely. Ideally, hopefully she will remain in normal sinus rhythm once electrolytes have stabilized. We will continue metoprolol along with heparin bridge and warfarin with a goal INR of 2-3. Consideration could be given to amiodarone to maintain sinus rhythm down the road once electrolytes have stabilized. Monitor anemia daily. Consider addition of iron supplementation. Admission and Anticipated Discharge Date Admission Date: February 15, 2020 Subjective Patient seen and examined, chart reviewed. Family member at bedside and patient is seated out of bed in chair. States that she is doing okay today. States that her back is sore but overall improving. Continues to deny any cardiac complaints of chest pain, shortness of breath, palpitations, lightheadedness, dizziness or syncope. Telemetry reviewed: Converted to normal sinus rhythm with frequent PACs. Review of Systems Review of Systems: All systems reviewed & are unremarkable except as noted in HPI & below Physical Exam Physical Exam: General: Awake, alert and oriented x 3. No acute distress. HEENT: Normocephalic, atraumatic. Pupils equal, round and reactive to light and accommodation. Extraocular muscles are intact. Anicteric sclera. Moist mucous membranes. Neck: No JVD. No bruit. Cardiovascular: irregularly irregular, unable to appreciate murmur, rub or gallop. Pulmonary: Clear to auscultation bilaterally. No rales, rhonchi, or wheezing. Abdomen: Bowel sounds x 4, soft. No rebound, guarding or tenderness. No organomegaly. Extremities: No clubbing, cyanosis or edema. +2 pedal pulses bilaterally. Skin: Warm and dry. Results & Data ([facility]) Vital Signs (Past 12 Hours) Vital Signs Temp Pulse Pulse Resp BP Pulse Ox 02/19/20 12:00 102 H 02/19/20 11:48 36.9 C 99 H 16 154/74 H 96 02/19/20 08:00 102 H 02/19/20 06:55 36.9 C 102 H 20 165/83 H 96 02/19/20 03:03 37 C 100 H 18 158/72 H 95 (1) Anemia Anemia type: unspecified type Qualified Code(s): D64.9 - Anemia, unspecified
--- NOTE | 2020-02-19 15:09 | Electrocardiogram Report ---
Test Reason : Blood Pressure : / mmHG Vent. Rate : 068 BPM Atrial Rate : 068 BPM P-R Int : 188 ms QRS Dur : 102 ms QT Int : 432 ms P-R-T Axes : 036 032 057 degrees QTc Int : 459 ms Sinus rhythm with Premature atrial complexes Otherwise normal ECG When compared with ECG of 19-FEB-2020 10:19, Nonspecific ST and T wave abnormality no longer present Confirmed by Ran Renteria ([id number]) on 02/19/2020 3:09:13 PM Referred By: REFERRED SELF Confirmed By:Ran Renteria
[2020-02-19] MEDS ORDERED: WARFARIN SOD 3 MG TAB PO SCH (16:00)
[2020-02-19] MEDS: HEPARIN SODIUM/DEXTROSE 25,000 UNITS/500 ML BAG IV SCH ×2 (16:27→21:20)
[2020-02-19] MEDS: TERAZOSIN HCL 1 MG CAP PO SCH (20:53)
[2020-02-19] MEDS: ATORVASTATIN 40 MG TAB PO SCH (20:54)
[2020-02-20] MEDS: cefTRIAXone SODIUM 1,000 MG in DEXTROSE 5% 50 ML IV SCH (02:59)
[2020-02-20] MEDS: ACETAMINOPHEN 500 MG TAB PO SCH ×6 (04:00→23:47)
[2020-02-20] MEDS: LEVOTHYROXINE SODIUM 25 MCG TABLET PO SCH (06:11)
[2020-02-20 06:22] LABS: Hematocrit (blood only) 25.6 % (37-47); Hemoglobin 8.4 g/dL (12.0-16.0); Mean Corpuscular Hemoglobin 31.1 pg (25-34); Mean Corpuscular Hgb Conc 32.8 g/dL (32-36); Mean Corpuscular Volume 94.8 fL (80-100); Platelet Count 127 K/uL (130-400); RDW Coefficient of Variation 14.3 % (11.5-14.5); RDW Standard Deviation 49.2 fL (36.4-46.3); White Blood Count 7.61 K/uL (4.8-10.8)
[2020-02-20 06:42] LABS: INR 1.1 (0.9-1.1); Prothrombin Time 11.2 Seconds (9.0-12.0)
[2020-02-20 06:45] LABS: BUN Creatinine Ratio 16.8 (10-20); Calcium 8.2 mg/dl (8.5-10.1); Est GFR (African American) 111.2; Potassium 3.7 mmol/L (3.5-5.1)
[2020-02-20 06:49] LABS: Partial Thromboplastin Time 56.1 Seconds (21.0-31.0)
[2020-02-20] MEDS: AMLODIPINE BESYLATE 5 MG TAB PO SCH (07:45)
[2020-02-20] MEDS: PANTOprazole 40 MG TAB PO SCH (07:45)
[2020-02-20] MEDS: ASPIRIN 81 MG ECTAB PO SCH (07:45)
[2020-02-20] MEDS: GABAPENTIN 300 MG CAP PO SCH ×3 (07:45→19:27)
[2020-02-20] MEDS: METOPROLOL TARTRATE 50 MG TAB PO SCH ×3 (07:45→19:27)
[2020-02-20] MEDS: FLUOXETINE HCL 20 MG CAP PO SCH (07:46)
[2020-02-20] MEDS: MAGNESIUM OXIDE 400 MG TAB PO SCH ×3 (07:47→19:27)
[2020-02-20] MEDS: INSULIN ASPART 100 UNITS/ML 3 ML PEN SC SCH ×4 (07:48→21:05)
[2020-02-20] MEDS: TRAMADOL HCL 50 MG TABLET PO PRN ×2 (07:57→23:46)
[2020-02-20] MEDS ORDERED: POTASSIUM CHLORIDE 20 MEQ TABCR PO STA (08:35)
--- NOTE | 2020-02-20 08:44 | Hospitalist Progress Note ---
Date of Service February 20, 2020 Assessment & Plan (1) Back pain: (2) Seroma: (3) Leukocytosis: -Likely secondary to postoperative seroma is identified on CT -No need for abx per ortho (4) Postoperative back pain: 74-year-old female, with history of CAD, hypertension, diabetes mellitus type 2, well-controlled, RA, anemia, and multiple recent back surgeries, who now presents with back pain. Patient was admitted under Dr. Street's service, and was recently discharged to [facility]. Patient was experiencing more back pain after physical therapy, and therefore she presented to emergency room. During her last admission, she underwent seroma incision and drainage, L1 compression fracture kyphoplasty, and also lumbar pelvic fusion for sacral fracture. CT of lumbar spine was obtained in the emergency room, showed acute bilateral sacral insufficiency fractures, unchanged alignment. Unchanged appearance of T12 and L1 compression deformities with prior kyphoplasty. Posterior interbody malcolm and screw fusion at L2 S1 with multilevel discectomy changes re- demonstrated. Hardware appears intact. Also showed ill-defined air and fluid- filled collection within the subcutaneous and paraspinal muscular distribution of the midline incision measures over 12 cm in length, sterilely cannot be determined by imaging alone. Dr. Street aware of the patient, will officially consult for further recommendations -Patient also has leukocytosis, and seroma identified on CT, Dr. Street says no abx needed, has Abx beeds -Tylenol and tramadol ordered for back pain -Abx needed for UTI -PT/OT eval, Ambulate (5) Diabetes mellitus, type II: -Well-controlled, A1c 6.5% in 12/2019 -May continue metformin for now, will switch to insulin if patient will require prolonged admission (6) Atrial fibrillation with RVR: Now in PCU-Cards on case, Metoprolol Tartrate 50 TID HR still up, BP up, Heparin gtt until therapeutic (7) Anemia: Hemoglobin 10.3, actually improved since last admission earlier this month -Continue to monitor HTN -Currently blood pressure acceptable, 142/72 -On discharge had increase in hydralazine to 50 mg 3 times daily -Continue to monitor CAD -Stable, no chest pain -Continue aspirin, statin, beta-pamela UTI Rocephin RA -Previously on Plaquenil and methotrexate, currently not taking any medications -No acute RA involving any joints Labs checked DC to SNF when stable, [facility] out, [place] on Warfarin Code: Full Dispo: Med/ Surg DVT ppx: SCDs for now will further evaluate if patient has prolonged admission ROS-No Headache, No Visual Changes, No Nausea, No Vomiting, No Fever, No Chills, No Neck Pain or Stiffness, No Chest Pain, No Palpitations, No SOB, No VALDEZ, No Cough, No Sputum, No Wheezing, No Abdominal Pain, No Diarrhea, No Hematemesis, No Hemoptysis, No Unexpected Weight Loss, No Flank pain, No Melena, No Hematochezia, No Frequency, No Urgency, No Burning, No Hematuria, No Rashes, No Diaphoresis. Appetite is Normal, +Back Pain Physical Exam Gen-AAO x 3, NAD, Afebrile Head-NCAT, EOMI, PERRLA, Anicteric Sclera, No Posterior Pharyngeal Erythema Neck-Supple, No JVD, No Thyromegaly, No Masses, No LAD, No Bruits Lungs-Clear to Auscultation Bilaterally, No Rales, No Rhonchi, No Wheezing, No Crepitus Chest-Irreg No S4, +S1, +S2, No S3, No Murmurs, No Rubs, No Gallops Abdomen-Soft, Bowel Sounds Present, Non Tender, Non Distended, No Hepatomegaly, No Splenomegaly, No Palpable Masses, No Rebound, No Rigidity, No Guarding Musculoskeletal-Full Range of Motion Bilaterally, No CVAT Extremities-No Cyanosis, No Clubbing, No Edema Nuero-Cranial Nerves II-XII grossly intact, Motor WNL, DTRs WNL, Strength WNL, Non Focal Psych-Normal Mood Admission and Anticipated Discharge Date Admission Date: February 15, 2020 Results & Data Results & Data ([facility]) Vital Signs (Past 12 Hours) Vital Signs Temp Pulse Pulse Pulse Resp BP Pulse Ox 02/20/20 07:43 36.9 C 117 H 18 184/94 H 98 02/20/20 03:07 37 C 90 16 136/63 99 02/20/20 00:00 77 02/19/20 23:09 37.2 C 72 20 146/77 H 96 (1) Back pain Back pain laterality: midline Back pain location: low back pain Chronicity: chronic Sciatica presence: unspecified whether sciatica present Qualified Code(s): M54.5 - Low back pain; G89.29 - Other chronic pain (2) Anemia Anemia type: unspecified type Qualified Code(s): D64.9 - Anemia, unspecified
[2020-02-20] MEDS ORDERED: METOPROLOL TARTRATE 1 MG/ML VIAL IV STA (09:33)
[2020-02-20] MEDS: MAGNESIUM SULFATE / D5W 1 GM/100 ML BAG IV SCH ×3 (09:59→14:15)
--- NOTE | 2020-02-20 11:11 | Cardiology Progress Note ---
Date of Service February 20, 2020 Assessment & Plan (1) Atrial fibrillation with RVR: (2) Hypokalemia: (3) Hypomagnesemia: (4) Anemia: (5) CAD (coronary artery disease): (6) PAD (peripheral artery disease): (7) HTN (hypertension): (8) Diabetes mellitus type 2 in nonobese: (9) CVA (cerebral vascular accident): Patient spontaneously converted to normal sinus rhythm. Potassium and magnesium levels remain significantly low today, will replete. Continue to follow electrolytes closely. Ideally, hopefully she will remain in normal sinus rhythm once electrolytes have stabilized. We will continue metoprolol along with heparin bridge and warfarin with a goal INR of 2-3. Given that she is returned to normal sinus rhythm I do not believe an outpatient bridge will be necessary. Will require close follow-up with [facility] clinic for Coumadin management. Okay to discharge to home from a cardiac standpoint. We will need close outpatient follow-up of electrolytes with the hope of maintaining sinus rhythm. Monitor anemia daily. Consider addition of iron supplementation. Admission and Anticipated Discharge Date Admission Date: February 15, 2020 Subjective Patient seen and examined, chart reviewed. States that she is feeling well overall. Denies any palpitations and states his breathing appears to be close to baseline. Denies any chest pain, lightheadedness, dizziness or syncope. Telemetry reviewed: Normal sinus rhythm with frequent PACs. No recurrences of atrial fibrillation overnight. Review of Systems Review of Systems: All systems reviewed & are unremarkable except as noted in HPI & below Physical Exam Physical Exam: General: Awake, alert and oriented x 3. No acute distress. HEENT: Normocephalic, atraumatic. Pupils equal, round and reactive to light and accommodation. Extraocular muscles are intact. Anicteric sclera. Moist mucous membranes. Neck: No JVD. No bruit. Cardiovascular: irregularly irregular, unable to appreciate murmur, rub or gallop. Pulmonary: Clear to auscultation bilaterally. No rales, rhonchi, or wheezing. Abdomen: Bowel sounds x 4, soft. No rebound, guarding or tenderness. No organomegaly. Extremities: No clubbing, cyanosis or edema. +2 pedal pulses bilaterally. Skin: Warm and dry. Results & Data ([facility]) Vital Signs (Past 12 Hours) Vital Signs Temp Pulse Pulse Resp BP BP Pulse Ox 02/20/20 10:15 73 129/82 02/20/20 09:56 73 129/82 02/20/20 07:43 36.9 C 117 H 18 184/94 H 98 02/20/20 03:07 37 C 90 16 136/63 99 02/20/20 00:00 77 (1) Anemia Anemia type: unspecified type Qualified Code(s): D64.9 - Anemia, unspecified
--- NOTE | 2020-02-20 12:11 | Electrocardiogram Report ---
Test Reason : Blood Pressure : / mmHG Vent. Rate : 070 BPM Atrial Rate : 070 BPM P-R Int : 176 ms QRS Dur : 092 ms QT Int : 422 ms P-R-T Axes : 050 055 069 degrees QTc Int : 455 ms Sinus rhythm with occasional Premature ventricular complexes and Premature atrial complexes Otherwise normal ECG When compared with ECG of 19-FEB-2020 10:19, Premature ventricular complexes are now Present Confirmed by Ran Renteria ([id number]) on 02/20/2020 12:10:36 PM Referred By: REFERRED SELF Confirmed By:Ran Renteria
--- NOTE | 2020-02-20 13:17 | Discharge Summary ---
Date of Service February 20, 2020 Admission HPI Per Admitting Provider 74-year-old female, with history of CAD, hypertension, diabetes mellitus type 2, well-controlled, RA, anemia, and multiple recent back surgeries, who now presents with back pain. Patient was admitted under Dr. Street's service, and was recently discharged to [facility]. There unfortunately patient was experiencing more back pain after physical therapy, and therefore she presented to emergency room. During her last admission, she underwent seroma incision and drainage, L1 compression fracture kyphoplasty, and also lumbar pelvic fusion for sacral fracture. CT of lumbar spine was obtained in the emergency room, showed acute bilateral sacral insufficiency fractures, unchanged alignment. Unchanged appearance of T12 and L1 compression deformities with prior kyphoplasty. Posterior interbody malcolm and screw fusion at L2 S1 with multilevel discectomy changes redemonstrated. Hardware appears intact. Also showed ill-defined air and fluid-filled collection within the subcutaneous and paraspinal muscular distribution of the midline incision measures over 12 cm in length, sterilely cannot be determined by imaging alone. Provider contacted Dr. Street, who was operating at a time, patient did not seem to be a surgical candidate at this time and recommended admission. Patient otherwise denies any fevers, chills, chest pain, shortness of breath, abdominal pain, nausea or vomiting. She has currently Granger catheter placed in. She denies stool incontinence. She is able to move lower extremities however she says that she is more weak in her lower extremities and she has little difficulty with PT. at the bedside and updated. Admission Exam Per Admitting Provider Physical Exam: Elderly female lying in bed, in no acute distress (however received pain medications in ED) Constitutional: WD/WN, vitals as above + obese Eyes: PERRL, conjunctivae normal, anicteric sclerae EOM intact bilaterally ENMT: external ear and nose normal, oropharynx normal Neck: trachea midline, no thyromegaly Respiratory: normal respiratory effort, lungs clear to auscultation Cardiovascular: RRR, no murmur, no edema Gastrointestinal (Abdomen): Inspection/Auscultation: abdomen normal to inspection and normal bowel sounds; abdomen not distended Percussion/Palpation: abdomen soft; abdomen nontender, no guarding and abdomen not rigid Obese Musculoskeletal: Head/Neck/Chest: normocephalic, head atraumatic and neck supple Patient is able to move lower extremities while lying in bed, however she says that while she was walking around with physical therapist and a walker, she had significant weakness, I did not assess her gait Skin: no rashes, warm and dry Neurologic: PERRL, EOMI, accommodation nl, no face palsy, no dysarthria moves all extremities Psychiatric: A+Ox3, euthymic affect Genitourinary: no CVA tenderness Currently has Granger catheter placed Principal Diagnosis (1) Back pain: (2) Seroma: (3) Leukocytosis: (4) Postoperative back pain: (5) Diabetes mellitus, type II: (6) Atrial fibrillation with RVR: (7) Anemia: (8) HTN (9) CAD (10) UTI (11) RA Discharge Exam see below Discharge Data Allergies Allergy/AdvReac Type Severity Reaction Status Date / Time nadolol AdvReac Unknown GI UPSET Verified 02/15/20 14:49 nitroglycerin AdvReac Unknown HEADACHE Verified 02/15/20 14:49 NSAIDS (Non-Steroidal AdvReac Unknown GI UPSET Verified 02/15/20 14:49 Anti-Inflamma Consultations 02/15/20 17:06 ED Decision to Admit Stat 02/15/20 18:08 Consult Orthopedic Surgery Routine 02/17/20 08:09 Consult Cardiology Routine Ordered Studies 02/15/20 12:39 CT lumbar spine wo con Stat Current Diagnoses Anemia, unspecified (02/15/20) Elevated white blood cell count, unspecified (02/15/20) Type 2 diabetes mellitus without complications (02/15/20) Hypomagnesemia (02/15/20) Hypokalemia (02/15/20) Other acute postprocedural pain (02/15/20) Other chronic pain (02/15/20) Essential (primary) hypertension (02/15/20) Atherosclerotic heart disease of [place] coronary artery without angina pectoris (02/15/20) Unspecified atrial fibrillation (02/15/20) Cerebral infarction, unspecified (02/15/20) Peripheral vascular disease, unspecified (02/15/20) Low back pain (02/15/20) Unspecified fracture of sacrum, initial encounter for closed fracture (02/15/20) Allergies nadolol Adverse Reaction (Unknown, Verified 02/15/20 14:49) GI UPSET nitroglycerin Adverse Reaction (Unknown, Verified 02/15/20 14:49) HEADACHE NSAIDS (Non-Steroidal Anti-Inflamma Adverse Reaction (Unknown, Verified 02/15/20 14:49) GI UPSET Height/Weight/Isolation Height 5 ft 9 in Weight 102.5 kg Isolation Type Contact Precautions Chemistry 02/19/20 02/20/20 06:14 06:02 Sodium 132 L 132 L Potassium 3.3 L 3.7 Chloride 100 101 Carbon Dioxide 24 25 Anion Gap 8.0 6.0 BUN 9 8 Creatinine 0.48 L 0.48 L Glucose 131 H 138 H Hospital Course (1) Back pain: (2) Seroma: (3) Leukocytosis: -Likely secondary to postoperative seroma is identified on CT -No need for abx per ortho (4) Postoperative back pain: 74-year-old female, with history of CAD, hypertension, diabetes mellitus type 2, well-controlled, RA, anemia, and multiple recent back surgeries, who now presents with back pain. Patient was admitted under Dr. Street's service, and was recently discharged to [facility]. Patient was experiencing more back pain after physical therapy, and therefore she presented to emergency room. During her last admission, she underwent seroma incision and drainage, L1 compression fracture kyphoplasty, and also lumbar pelvic fusion for sacral fracture. CT of lumbar spine was obtained in the emergency room, showed acute bilateral sacral insufficiency fractures, unchanged alignment. Unchanged appearance of T12 and L1 compression deformities with prior kyphoplasty. Posterior interbody malcolm and screw fusion at L2 S1 with multilevel discectomy changes re- demonstrated. Hardware appears intact. Also showed ill-defined air and fluid- filled collection within the subcutaneous and paraspinal muscular distribution of the midline incision measures over 12 cm in length, sterilely cannot be determined by imaging alone. Dr. Street aware of the patient, will officially consult for further recommendations -Patient also has leukocytosis, and seroma identified on CT, Dr. Street says no abx needed, has Abx beeds -Tylenol and tramadol ordered for back pain -Abx needed for UTI -PT/OT eval, Ambulate (5) Diabetes mellitus, type II: -Well-controlled, A1c 6.5% in 12/2019 -May continue metformin for now, will switch to insulin if patient will require prolonged admission (6) Atrial fibrillation with RVR: Now in PCU-Cards on case, Metoprolol Tartrate 50 TID HR still up, BP up, Heparin gtt until therapeutic (7) Anemia: Hemoglobin 10.3, actually improved since last admission earlier this month -Continue to monitor HTN -Currently blood pressure acceptable, 142/72 -On discharge had increase in hydralazine to 50 mg 3 times daily -Continue to monitor CAD -Stable, no chest pain -Continue aspirin, statin, beta-pamela UTI Rocephin RA -Previously on Plaquenil and methotrexate, currently not taking any medications -No acute RA involving any joints Labs checked DC to AR[facility], Covid Ordered, Granger out, Warfarin Code: Full Physical Exam Gen-AAO x 3, NAD, Afebrile Head-NCAT, EOMI, PERRLA, Anicteric Sclera, No Posterior Pharyngeal Erythema Neck-Supple, No JVD, No Thyromegaly, No Masses, No LAD, No Bruits Lungs-Clear to Auscultation Bilaterally, No Rales, No Rhonchi, No Wheezing, No Crepitus Chest-Reg No S4, +S1, +S2, No S3, No Murmurs, No Rubs, No Gallops Abdomen-Soft, Bowel Sounds Present, Non Tender, Non Distended, No Hepatomegaly, No Splenomegaly, No Palpable Masses, No Rebound, No Rigidity, No Guarding Musculoskeletal-Full Range of Motion Bilaterally, No CVAT Extremities-No Cyanosis, No Clubbing, No Edema Nuero-Cranial Nerves II-XII grossly intact, Motor WNL, DTRs WNL, Strength WNL, Non Focal Psych-Normal Mood Total Time Total Time Spent Total Time Spent (In Minutes): 45 min Total Time Includes: Examination of the Patient, Discharge Planning, Medication Reconciliation and Communication With Other Providers Discharge Plan Discharge Items Patient Disposition: Transfer Inpatient Rehab Fac Reason For Visit: BACK PAIN, POST-OP Discharge Diagnosis: (1) Back pain: (2) Seroma: (3) Leukocytosis: (4) Postoperative back pain: (5) Diabetes mellitus, type II: (6) Atrial fibrillation with RVR: (7) Anemia: (8) HTN (9) CAD (10) UTI (11) RA Health Concerns: AFIB and INR Activity: Per Instructions section Activity Comment: Per Dr Street on Prev DC Lifting: None Bathing: Keep incision dry Exercise/Sports: None Driving/Machine Use: None Weightbearing: Full weightbearing Non-emergency contact: Primary Care Provider, Specialist and Busperson Call non-emergency contact if: you have any medication questions Follow-up/Referrals: Rashaad Street DO [Surgeon] - (Call for instructions and follow up appointment) Neeru Merrill [Non-Staff] - Reynold Kitchen DO [Busperson] - (2-3 weeks) Derrek Sparks MD [Primary Care Provider] - Diet: Carb Consistent or DM2 and Heart Healthy Addtl Attending Provider Instructions: Warfarin as per INR Pending Studies at Discharge: Yes Studies:: COVID test, 02/07 COVID negative Stand-Alone Forms: [facility] Skilled Items Patient informed of condition?: Yes DNR: No Discharge Level of Care: Acute rehab Communicable Disease: Yes Discharge Prognosis: Improving Lines: None Urinary Catheter: No Medications and DC Order Prescriptions: New metoprolol tartrate 50 mg Tablet 50 mg PO TID Qty: 30 RF: 0 tramadol 50 mg Tablet 50 mg PO Q4H PRN (Reason: pain) Qty: 30 RF: 0 acetaminophen 500 mg Tablet 500 mg PO Q4 Qty: 30 RF: 0 magnesium oxide 400 mg (241.3 mg magnesium) Tablet 400 mg PO TID Qty: 12 RF: 0 Continued fluoxetine [Prozac] 40 mg Capsule 40 mg PO QAM RF: 0 atorvastatin 40 mg Tablet 40 mg PO HS RF: 0 metformin 500 mg Tablet 500 mg PO BID RF: 0 aspirin [Aspirin Low Dose] 81 mg Tablet,Delayed Release (Dr/Ec) 81 mg PO QAM RF: 0 terazosin 2 mg Capsule 2 mg PO HS RF: 0 pantoprazole 40 mg tablet,delayed release (DR/EC) 40 mg PO QAM RF: 0 gabapentin 300 mg Capsule 300 mg PO TID RF: 0 furosemide [Lasix] 20 mg Tablet 20 mg PO DAILY PRN (Reason: Weight Gain) RF: 0 amlodipine 5 mg Tablet 5 mg PO QAM RF: 0 betamethasone dipropionate 0.05 % Cream 1 applic TOPICAL BID PRN (Reason: redness) RF: 0 hydralazine 25 mg tablet 25 mg PO TID RF: 0 levothyroxine 25 mcg Capsule 25 mcg PO QAM RF: 0 Discontinued carvedilol 6.25 mg Tablet 12.5 mg PO BID RF: 0 nitroglycerin 400 mcg/spray Aerosol,[place] 1 dose Translingual DIRECTED PRN (Reason: Chest Pain) RF: 0 Admission Data Admit Date/Time: 02/15/20 17:11 Attending Provider: Mushtaq Phillips Admit Provider: Mychal Marcum Primary Care Provider: Derrek Sparks Other Providers: Neeru Merrill ; Mychal Marcum ; Rashaad Street ; Reynold Kitchen
[2020-02-20] MEDS ORDERED: NURSING LOW INTENSITY WARFARIN NOMOGRAM SCH (14:00)
[2020-02-20] MEDS: NURSING LOW INTENSITY WARFARIN NOMOGRAM SCH (14:21)
[2020-02-20] MEDS: SODIUM CHLORIDE 0.9% 1000ML 1,000 ML IV SCH (15:30)
[2020-02-20] MEDS: HEPARIN SODIUM/DEXTROSE 25,000 UNITS/500 ML BAG IV SCH (15:31)
[2020-02-20] MEDS ORDERED: WARFARIN SOD 3 MG TAB PO ONE (16:00)
[2020-02-20] MEDS: TERAZOSIN HCL 1 MG CAP PO SCH (19:26)
[2020-02-20] MEDS: ATORVASTATIN 40 MG TAB PO SCH (19:27)
[2020-02-20 21:00] LABS: BUN Creatinine Ratio 14.6 (10-20); Calcium 8.5 mg/dl (8.5-10.1); Creatinine Clr Calc Pharmacy 99.9 ml/min; Est GFR (African American) 102.2; Est GFR (Non-African American) 88.2; Magnesium 1.9 mg/dl (1.8-2.4); Potassium 4.3 mmol/L (3.5-5.1)
[2020-02-21] MEDS: ACETAMINOPHEN 500 MG TAB PO SCH ×4 (04:46→12:23)
[2020-02-21] MEDS: LEVOTHYROXINE SODIUM 25 MCG TABLET PO SCH (05:01)
[2020-02-21 05:36] LABS: Eosinophils # (auto) 0.11 K/uL (0-0.5); Eosinophils % (auto) 1.7 %; Hematocrit (blood only) 27.9 % (37-47); Hemoglobin 9.1 g/dL (12.0-16.0); Immature Granulocytes # (auto) 0.03 K/uL (0.00-0.02); Immature Granulocytes % (auto) 0.5 %; Lymphocytes # (auto) 0.89 K/uL (1.2-3.4); Lymphocytes % (auto) 13.4 %; Mean Corpuscular Hemoglobin 31.5 pg (25-34); Mean Corpuscular Hgb Conc 32.6 g/dL (32-36); Mean Corpuscular Volume 96.5 fL (80-100); Mean Platelet Volume 7.8 fL (7.4-10.4); Monocytes # (auto) 0.49 K/uL (0.11-0.59); Monocytes % (auto) 7.4 %; Neutrophils # (auto) 5.13 K/uL (1.4-6.5); Platelet Count 128 K/uL (130-400); RDW Coefficient of Variation 14.5 % (11.5-14.5); RDW Standard Deviation 51.2 fL (36.4-46.3); Red Blood Count 2.89 M/uL (4.2-5.4); White Blood Count 6.65 K/uL (4.8-10.8)
[2020-02-21 05:47] LABS: Partial Thromboplastin Time 27.9 Seconds (21.0-31.0)
[2020-02-21 05:58] LABS: BUN Creatinine Ratio 14.5 (10-20); Calcium 8.4 mg/dl (8.5-10.1); Creatinine Clr Calc Pharmacy 123.6 ml/min; Est GFR (Non-African American) 94.1; Magnesium 1.6 mg/dl (1.8-2.4); Potassium 4.3 mmol/L (3.5-5.1)
[2020-02-21 06:01] LABS: Albumin Globulin Ratio 0.5 (0.9-2); Bilirubin,Total 0.7 mg/dl (0.2-1); Globulin 3.7 gm/dl (2.5-4.0); Phosphorus 2.9 mg/dl (2.5-4.9); Total Protein 5.7 gm/dl (6.4-8.2)
--- NOTE | 2020-02-21 08:21 | Hospitalist Progress Note ---
Date of Service February 21, 2020 Assessment & Plan (1) Back pain: (2) Seroma: (3) Leukocytosis: -Likely secondary to postoperative seroma as identified on CT -No need for abx per ortho, as she still has antibiotic beads in place (4) Postoperative back pain: 74-year-old female, with history of CAD, hypertension, diabetes mellitus type 2, well-controlled, RA, anemia, and multiple recent back surgeries, who now presents with back pain. Patient was admitted under Dr. Street's service, and was recently discharged to [facility]. Patient was experiencing more back pain after physical therapy, and therefore she presented to emergency room. During her last admission, she underwent seroma incision and drainage, L1 compression fracture kyphoplasty, and also lumbar pelvic fusion for sacral fracture. CT of lumbar spine was obtained in the emergency room, showed acute bilateral sacral insufficiency fractures, unchanged alignment. Unchanged appearance of T12 and L1 compression deformities with prior kyphoplasty. Posterior interbody malcolm and screw fusion at L2 S1 with multilevel discectomy changes re- demonstrated. Hardware appears intact. Also showed ill-defined air and fluid- filled collection within the subcutaneous and paraspinal muscular distribution of the midline incision measures over 12 cm in length, sterilely cannot be determined by imaging alone. Dr. Street aware of the patient, will officially consult for further recommendations -Patient also has leukocytosis, and seroma identified on CT, Dr. Street says no abx needed, has Abx beads in place -Tylenol and tramadol ordered for back pain -Abx needed for UTI, treatment finished -PT/OT eval, Ambulate, plan to discharge to [facility] (5) Diabetes mellitus, type II: -Well-controlled, A1c 6.5% in 12/2019 -May continue metformin for now (6) Atrial fibrillation with RVR: Now in PCU-Cards on case, Metoprolol Tartrate 50 TID Was on Heparin gtt, now switched to warfarin as of yesterday Will need INR checks closely and warfarin adjusted as needed (7) Anemia: Hemoglobin~ 8-9 -Continue to monitor -Consider iron supplement HTN -Currently blood pressure acceptable -May increase hydralazine dose in the future if needed -Continue to monitor CAD -Stable, no chest pain -Continue aspirin, statin, beta-pamela UTI Rocephin, finished course RA -Previously on Plaquenil and methotrexate, currently not taking any medications -No acute RA involving any joints Labs checked DC to [facility], Covid Ordered, [place] out, Warfarin started yesterday Code: Full Admission and Anticipated Discharge Date Admission Date: February 15, 2020 Subjective No acute events overnight. Patient is sitting in chair, in no acute distress. Denies any fevers, chills, chest pain, shortness of breath. Also denies any urinary incontinence. Telemetry reviewed, normal sinus rhythm with PACs, and occasional flutter. Plan for discharge to [facility] today. Review of Systems Review of Systems: All systems reviewed & are unremarkable except as noted in HPI & below Constitutional: no fever and no chills Respiratory: no cough and no dyspnea Cardiovascular: no chest pain and no palpitations Gastrointestinal: no abdominal pain, no nausea and no vomiting Genitourinary: no urinary incontinence Musculoskeletal: + back pain and + muscle weakness Physical Exam Physical Exam: Elderly female sitting up in the chair, in no acute distress Constitutional: WD/WN, vitals as above + obese Eyes: PERRL, conjunctivae normal, anicteric sclerae EOM intact bilaterally ENMT: external ear and nose normal, oropharynx normal Neck: trachea midline, no thyromegaly Respiratory: normal respiratory effort, lungs clear to auscultation Cardiovascular: RRR, no murmur, no edema Gastrointestinal (Abdomen): Inspection/Auscultation: abdomen normal to inspection and normal bowel sounds; abdomen not distended Percussion/Palpation: abdomen soft; abdomen nontender, no guarding and abdomen not rigid Musculoskeletal: Head/Neck/Chest: normocephalic, head atraumatic and neck supple Skin: no rashes, warm and dry Neurologic: PERRL, EOMI, accommodation nl, no face palsy, no dysarthria moves all extremities Psychiatric: A+Ox3, euthymic affect Genitourinary: no CVA tenderness Results & Data Results & Data ([facility]) Vital Signs (Past 12 Hours) Vital Signs Temp Pulse Pulse Resp BP Pulse Ox 02/21/20 07:08 36.5 C 75 20 152/82 H 97 02/21/20 04:00 36.9 C 108 H 18 159/83 H 97 02/20/20 23:47 37 C 107 H 18 151/88 H 99 02/20/20 23:00 74 Laboratory Results 02/21/20 02/21/20 02/21/20 Range/Units 07:06 05:21 05:21 WBC 6.65 (4.8-10.8) K/uL RBC 2.89 L (4.2-5.4) M/uL Hgb 9.1 L (12.0-16.0) g/dL Hct 27.9 L (37-47) % MCV 96.5 (80-100) fL MCH 31.5 (25-34) pg MCHC 32.6 (32-36) g/dL RDW Std Deviation 51.2 H (36.4-46.3) fL RDW Coeff of Farheen 14.5 (11.5-14.5) % Plt Count 128 L (130-400) K/uL MPV 7.8 (7.4-10.4) fL Immature Gran % (Auto) 0.5 % Neut % (Auto) 77.0 % Lymph % (Auto) 13.4 % [place] % (Auto) 7.4 % Eos % (Auto) 1.7 % Baso % (Auto) 0.0 % Neut # (Auto) 5.13 (1.4-6.5) K/uL Lymph # (Auto) 0.89 L (1.2-3.4) K/uL [place] # (Auto) 0.49 (0.11-0.59) K/uL Eos # (Auto) 0.11 (0-0.5) K/uL Baso # (Auto) 0.00 (0-0.2) K/uL Immature Gran # (Auto) 0.03 H (0.00-0.02) K/uL PT (9.0-12.0) Seconds INR (0.9-1.1) APTT (21.0-31.0) Seconds PTT Ratio Sodium 132 L (136-145) mmol/L Potassium 4.3 (3.5-5.1) mmol/L Chloride 100 (98-107) mmol/L Carbon Dioxide 27 (21-32) mmol/L Anion Gap 5.0 (3-11) BUN 7 (7-18) mg/dl Creatinine 0.51 L (0.6-1.2) mg/dl Est Cr Clr Drug Dosing 123.6 ml/min Est GFR ( Amer) 109.0 Est GFR (Non-Af Amer) 94.1 BUN/Creatinine Ratio 14.5 (10-20) Glucose 120 H (70-99) mg/dl POC Glucose 128 H (70-99) mg/dl Calcium 8.4 L (8.5-10.1) mg/dl Phosphorus 2.9 (2.5-4.9) mg/dl Magnesium 1.6 L (1.8-2.4) mg/dl Total Bilirubin 0.7 (0.2-1) mg/dl AST 42 H (15-37) U/L ALT 50 (12-78) U/L Alkaline Phosphatase 174 H (45-117) U/L Total Protein 5.7 L (6.4-8.2) gm/dl Albumin 2.0 L (3.4-5.0) gm/dl Globulin 3.7 (2.5-4.0) gm/dl Albumin/Globulin Ratio 0.5 L (0.9-2) COVID-19 Eval Order SARS-CoV-2, RNA, NAAT (NEGATIVE) 02/21/20 02/20/20 02/20/20 Range/Units 05:21 20:15 20:12 WBC (4.8-10.8) K/uL RBC (4.2-5.4) M/uL Hgb (12.0-16.0) g/dL Hct (37-47) % MCV (80-100) fL MCH (25-34) pg MCHC (32-36) g/dL RDW Std Deviation (36.4-46.3) fL RDW Coeff of Farheen (11.5-14.5) % Plt Count (130-400) K/uL MPV (7.4-10.4) fL Immature Gran % (Auto) % Neut % (Auto) % Lymph % (Auto) % [place] % (Auto) % Eos % (Auto) % Baso % (Auto) % Neut # (Auto) (1.4-6.5) K/uL Lymph # (Auto) (1.2-3.4) K/uL [place] # (Auto) (0.11-0.59) K/uL Eos # (Auto) (0-0.5) K/uL Baso # (Auto) (0-0.2) K/uL Immature Gran # (Auto) (0.00-0.02) K/uL PT 11.0 (9.0-12.0) Seconds INR 1.0 (0.9-1.1) APTT 27.9 (21.0-31.0) Seconds PTT Ratio 1.0 Sodium 132 L (136-145) mmol/L Potassium 4.3 D (3.5-5.1) mmol/L Chloride 103 (98-107) mmol/L Carbon Dioxide 22 (21-32) mmol/L Anion Gap 8.0 (3-11) BUN 9 (7-18) mg/dl Creatinine 0.62 (0.6-1.2) mg/dl Est Cr Clr Drug Dosing 99.9 ml/min Est GFR ( Amer) 102.2 Est GFR (Non-Af Amer) 88.2 BUN/Creatinine Ratio 14.6 (10-20) Glucose 142 H (70-99) mg/dl POC Glucose 139 H (70-99) mg/dl Calcium 8.5 (8.5-10.1) mg/dl Phosphorus (2.5-4.9) mg/dl Magnesium 1.9 (1.8-2.4) mg/dl Total Bilirubin (0.2-1) mg/dl AST (15-37) U/L ALT (12-78) U/L Alkaline Phosphatase (45-117) U/L Total Protein (6.4-8.2) gm/dl Albumin (3.4-5.0) gm/dl Globulin (2.5-4.0) gm/dl Albumin/Globulin Ratio (0.9-2) COVID-19 Eval Order SARS-CoV-2, RNA, NAAT (NEGATIVE) 02/20/20 02/20/20 02/20/20 Range/Units 16:22 13:18 13:18 WBC (4.8-10.8) K/uL RBC (4.2-5.4) M/uL Hgb (12.0-16.0) g/dL Hct (37-47) % MCV (80-100) fL MCH (25-34) pg MCHC (32-36) g/dL RDW Std Deviation (36.4-46.3) fL RDW Coeff of Farheen (11.5-14.5) % Plt Count (130-400) K/uL MPV (7.4-10.4) fL Immature Gran % (Auto) % Neut % (Auto) % Lymph % (Auto) % [place] % (Auto) % Eos % (Auto) % Baso % (Auto) % Neut # (Auto) (1.4-6.5) K/uL Lymph # (Auto) (1.2-3.4) K/uL [place] # (Auto) (0.11-0.59) K/uL Eos # (Auto) (0-0.5) K/uL Baso # (Auto) (0-0.2) K/uL Immature Gran # (Auto) (0.00-0.02) K/uL PT (9.0-12.0) Seconds INR (0.9-1.1) APTT (21.0-31.0) Seconds PTT Ratio Sodium (136-145) mmol/L Potassium (3.5-5.1) mmol/L Chloride (98-107) mmol/L Carbon Dioxide (21-32) mmol/L Anion Gap (3-11) BUN (7-18) mg/dl Creatinine (0.6-1.2) mg/dl Est Cr Clr Drug Dosing ml/min Est GFR ( Amer) Est GFR (Non-Af Amer) BUN/Creatinine Ratio (10-20) Glucose (70-99) mg/dl POC Glucose 158 H (70-99) mg/dl Calcium (8.5-10.1) mg/dl Phosphorus (2.5-4.9) mg/dl Magnesium (1.8-2.4) mg/dl Total Bilirubin (0.2-1) mg/dl AST (15-37) U/L ALT (12-78) U/L Alkaline Phosphatase (45-117) U/L Total Protein (6.4-8.2) gm/dl Albumin (3.4-5.0) gm/dl Globulin (2.5-4.0) gm/dl Albumin/Globulin Ratio (0.9-2) COVID-19 Eval [facility]-2, RNA, NAAT NEGATIVE (NEGATIVE) 02/20/20 02/20/20 Range/Units 11:19 06:02 WBC (4.8-10.8) K/uL RBC (4.2-5.4) M/uL Hgb (12.0-16.0) g/dL Hct (37-47) % MCV (80-100) fL MCH (25-34) pg MCHC (32-36) g/dL RDW Std Deviation (36.4-46.3) fL RDW Coeff of Farheen (11.5-14.5) % Plt Count (130-400) K/uL MPV (7.4-10.4) fL Immature Gran % (Auto) % Neut % (Auto) % Lymph % (Auto) % [place] % (Auto) % Eos % (Auto) % Baso % (Auto) % Neut # (Auto) (1.4-6.5) K/uL Lymph # (Auto) (1.2-3.4) K/uL [place] # (Auto) (0.11-0.59) K/uL Eos # (Auto) (0-0.5) K/uL Baso # (Auto) (0-0.2) K/uL Immature Gran # (Auto) (0.00-0.02) K/uL PT (9.0-12.0) Seconds INR (0.9-1.1) APTT (21.0-31.0) Seconds PTT Ratio Sodium (136-145) mmol/L Potassium (3.5-5.1) mmol/L Chloride (98-107) mmol/L Carbon Dioxide (21-32) mmol/L Anion Gap (3-11) BUN (7-18) mg/dl Creatinine (0.6-1.2) mg/dl Est Cr Clr Drug Dosing ml/min Est GFR ( Amer) Est GFR (Non-Af Amer) BUN/Creatinine Ratio (10-20) Glucose (70-99) mg/dl POC Glucose 152 H (70-99) mg/dl Calcium (8.5-10.1) mg/dl Phosphorus (2.5-4.9) mg/dl Magnesium 1.3 L (1.8-2.4) mg/dl Total Bilirubin (0.2-1) mg/dl AST (15-37) U/L ALT (12-78) U/L Alkaline Phosphatase (45-117) U/L Total Protein (6.4-8.2) gm/dl Albumin (3.4-5.0) gm/dl Globulin (2.5-4.0) gm/dl Albumin/Globulin Ratio (0.9-2) COVID-19 Eval Order SARS-CoV-2, RNA, NAAT (NEGATIVE) Medications Administered Current Inpatient Medications Acetaminophen (Acetaminophen 500 Mg Tab) 500 mg PO Q4 [facility] Stop: 03/18/20 09:59 Last Admin: 02/21/20 05:02 Dose: 500 mg Documented by: Amlodipine Besylate (Amlodipine Besylate 5 Mg Tab) [facility] Stop: 03/17/20 08:59 Last Admin: 02/20/20 07:45 Dose: 5 mg Documented by: Aspirin (Aspirin 81 Mg Ectab) [facility] Stop: 03/17/20 08:59 Last Admin: 02/20/20 07:45 Dose: 81 mg Documented by: Atorvastatin Calcium (Atorvastatin 40 Mg Tab) 40 mg PO HS [facility] Stop: 03/16/20 20:59 Last Admin: 02/20/20 19:27 Dose: 40 mg Documented by: Betamethasone Dipropion Augmented (Betamethasone Dip Aug (Diprolene) 0.05% Cr 15 Gm Tube) 1 appln EXT BID PRN PRN Reason: redness Stop: 03/16/20 18:15 Dextrose (Dextrose 50% 50 Ml Syringe) 25 - 50 ml IV UD PRN; Protocol PRN Reason: Hypoglycemia Protocol Stop: 03/18/20 04:59 Fluoxetine HCl (Fluoxetine Hcl 20 Mg Cap) 40 mg PO QAM [facility] Stop: 03/17/20 08:59 Last Admin: 02/20/20 07:46 Dose: 40 mg Documented by: Furosemide (Furosemide 20 Mg Tab) 20 mg PO DAILY PRN PRN Reason: Weight Gain Stop: 03/16/20 18:07 Last Admin: 02/16/20 08:15 Dose: 20 mg Documented by: Gabapentin (Gabapentin 300 Mg Cap) 300 mg PO TID [facility] Stop: 03/16/20 20:59 Last Admin: 02/20/20 19:27 Dose: 300 mg Documented by: Glucagon (Glucagon For Inj 1 Mg Vial) 1 mg SQ UD PRN; Protocol PRN Reason: Hypoglycemia Protocol Stop: 03/18/20 04:59 Glucose (Glucose 40% Gel 15 Gm Tube) 15 - 30 gm PO UD PRN; Protocol PRN Reason: Hypoglycemia Protocol Stop: 03/18/20 04:59 Glucose (Glucose 10 Tabs/Tube) 4 - 8 tabs PO UD PRN; Protocol PRN Reason: Hypoglycemia Protocol Stop: 03/18/20 04:59 Hydralazine HCl (Hydralazine Hcl 25 Mg Tab) 25 mg PO TID [facility] Stop: 03/16/20 20:59 Last Admin: 02/20/20 19:27 Dose: 25 mg Documented by: Magnesium Sulfate/Dextrose (Magnesium Sulfate / D5w) 1 gm in 100 mls @ 50 mls/hr IV ONE ONE Stop: 02/21/20 10:15 Insulin Aspart (Insulin Aspart 100 Units/Ml 3 Ml Pen) 0 units SC ACHS [facility] Stop: 03/18/20 07:29 Last Admin: 02/20/20 21:05 Dose: Not Given Documented by: Levothyroxine Sodium (Levothyroxine Sodium 25 Mcg Tablet) 25 mcg PO DAILYBB [facility] Stop: 03/17/20 06:29 Last Admin: 02/21/20 05:01 Dose: 25 mcg Documented by: Magnesium Oxide (Magnesium Oxide 400 Mg Tab) 400 mg PO TID [facility] Stop: 03/21/20 13:59 Last Admin: 02/20/20 19:27 Dose: 400 mg Documented by: Metoprolol Tartrate (Metoprolol Tartrate 1 Mg/Ml Vial) 5 mg IV Q6 PRN PRN Reason: Tachycardia Stop: 03/18/20 04:48 Last Admin: 02/17/20 05:10 Dose: 5 mg Documented by: Metoprolol Tartrate (Metoprolol Tartrate 50 Mg Tab) 50 mg PO TID [facility] Stop: 03/19/20 08:59 Last Admin: 02/20/20 19:27 Dose: 50 mg Documented by: Miscellaneous (Carbohydrates For Hypoglycemia ) 15 - 30 gm PO UD PRN PRN Reason: Hypoglycemia Treatment Stop: 03/18/20 04:59 Miscellaneous (Nursing Low Intensity Warfarin Nomogram) 1 ea N/A DAILY@1400 [facility] Stop: 03/20/20 13:59 Last Admin: 02/20/20 14:21 Dose: 1 ea Documented by: Morphine Sulfate (Morphine Sulfate 2 Mg/Ml Carp) 2 mg IV Q4 PRN PRN Reason: Severe Pain Stop: 03/02/20 09:00 Last Admin: 02/18/20 19:37 Dose: 2 mg Documented by: Pantoprazole Sodium (Pantoprazole 40 Mg Tab) 40 mg PO QAM [facility] Stop: 03/17/20 08:59 Last Admin: 02/20/20 07:45 Dose: 40 mg Documented by: Terazosin HCl (Terazosin Hcl 1 Mg Cap) 2 mg PO HS [facility] Stop: 03/16/20 20:59 Last Admin: 02/20/20 19:26 Dose: 2 mg Documented by: Tramadol HCl (Tramadol Hcl 50 Mg Tablet) 50 mg PO Q4H PRN PRN Reason: Pain Stop: 03/16/20 18:07 Last Admin: 02/20/20 23:46 Dose: 50 mg Documented by: (1) Anemia Anemia type: unspecified type Qualified Code(s): D64.9 - Anemia, unspecified (2) Back pain Back pain laterality: midline Back pain location: low back pain Chronicity: chronic Sciatica presence: unspecified whether sciatica present Qualified Code(s): M54.5 - Low back pain; G89.29 - Other chronic pain
[2020-02-21] MEDS: ASPIRIN 81 MG ECTAB PO SCH (08:22)
[2020-02-21] MEDS: AMLODIPINE BESYLATE 5 MG TAB PO SCH (08:22)
[2020-02-21] MEDS: MAGNESIUM OXIDE 400 MG TAB PO SCH ×2 (08:22→14:17)
[2020-02-21] MEDS: GABAPENTIN 300 MG CAP PO SCH ×2 (08:22→14:17)
[2020-02-21] MEDS: PANTOprazole 40 MG TAB PO SCH (08:22)
[2020-02-21] MEDS: METOPROLOL TARTRATE 50 MG TAB PO SCH ×2 (08:22→14:17)
[2020-02-21] MEDS: FLUOXETINE HCL 20 MG CAP PO SCH (08:23)
[2020-02-21] MEDS: INSULIN ASPART 100 UNITS/ML 3 ML PEN SC SCH ×2 (08:23→12:21)
[2020-02-21] MEDS: TRAMADOL HCL 50 MG TABLET PO PRN (08:25)
[2020-02-21] MEDS ORDERED: MAGNESIUM SULFATE / D5W 1 GM/100 ML BAG IV ONE (08:30)
--- NOTE | 2020-02-21 11:14 | Discharge Summary ---
Date of Service February 21, 2020 Admission HPI Per Admitting Provider 74-year-old female, with history of CAD, hypertension, diabetes mellitus type 2, well-controlled, RA, anemia, and multiple recent back surgeries, who now presents with back pain. Patient was admitted under Dr. Street's service, and was recently discharged to [facility]. There unfortunately patient was experiencing more back pain after physical therapy, and therefore she presented to emergency room. During her last admission, she underwent seroma incision and drainage, L1 compression fracture kyphoplasty, and also lumbar pelvic fusion for sacral fracture. CT of lumbar spine was obtained in the emergency room, showed acute bilateral sacral insufficiency fractures, unchanged alignment. Unchanged appearance of T12 and L1 compression deformities with prior kyphoplasty. Posterior interbody malcolm and screw fusion at L2 S1 with multilevel discectomy changes redemonstrated. Hardware appears intact. Also showed ill-defined air and fluid-filled collection within the subcutaneous and paraspinal muscular distribution of the midline incision measures over 12 cm in length, sterilely cannot be determined by imaging alone. Provider contacted Dr. Street, who was operating at a time, patient did not seem to be a surgical candidate at this time and recommended admission. Patient otherwise denies any fevers, chills, chest pain, shortness of breath, abdominal pain, nausea or vomiting. She has currently Granger catheter placed in. She denies stool incontinence. She is able to move lower extremities however she says that she is more weak in her lower extremities and she has little difficulty with PT. at the bedside and updated. Admission Exam Per Admitting Provider Physical Exam: Elderly female lying in bed, in no acute distress (however received pain medications in ED) Constitutional: WD/WN, vitals as above + obese Eyes: PERRL, conjunctivae normal, anicteric sclerae EOM intact bilaterally ENMT: external ear and nose normal, oropharynx normal Neck: trachea midline, no thyromegaly Respiratory: normal respiratory effort, lungs clear to auscultation Cardiovascular: RRR, no murmur, no edema Gastrointestinal (Abdomen): Inspection/Auscultation: abdomen normal to inspection and normal bowel sounds; abdomen not distended Percussion/Palpation: abdomen soft; abdomen nontender, no guarding and abdomen not rigid Obese Musculoskeletal: Head/Neck/Chest: normocephalic, head atraumatic and neck supple Patient is able to move lower extremities while lying in bed, however she says that while she was walking around with physical therapist and a walker, she had significant weakness, I did not assess her gait Skin: no rashes, warm and dry Neurologic: PERRL, EOMI, accommodation nl, no face palsy, no dysarthria moves all extremities Psychiatric: A+Ox3, euthymic affect Genitourinary: no CVA tenderness Currently has Granger catheter placed Principal Diagnosis (1) Back pain: (2) Seroma: (3) Leukocytosis: (4) Postoperative back pain: (5) Diabetes mellitus, type II: (6) Atrial fibrillation with RVR: (7) Anemia: (8) HTN (9) CAD (10) UTI (11) RA Discharge Exam Constitutional WD/WN, vitals as above + obese Eyes PERRL, conjunctivae normal, anicteric sclerae EOM intact bilaterally ENMT external ear and nose normal, oropharynx normal Neck trachea midline, no thyromegaly Respiratory normal respiratory effort, lungs clear to auscultation Cardiovascular RRR, no murmur, no edema Gastrointestinal (Abdomen) Inspection/Auscultation: abdomen normal to inspection and normal bowel sounds; abdomen not distended Percussion/Palpation: abdomen soft; abdomen nontender, no guarding and abdomen not rigid Musculoskeletal Head/Neck/Chest: normocephalic, head atraumatic and neck supple Skin no rashes, warm and dry Neurologic PERRL, EOMI, accommodation nl, no face palsy, no dysarthria moves all extremities Psychiatric A+Ox3, euthymic affect Genitourinary no CVA tenderness Discharge Data Allergies Allergy/AdvReac Type Severity Reaction Status Date / Time nadolol AdvReac Unknown GI UPSET Verified 02/15/20 14:49 nitroglycerin AdvReac Unknown HEADACHE Verified 02/15/20 14:49 NSAIDS (Non-Steroidal AdvReac Unknown GI UPSET Verified 02/15/20 14:49 Anti-Inflamma Consultations 02/15/20 17:06 ED Decision to Admit Stat 02/15/20 18:08 Consult Orthopedic Surgery Routine 02/17/20 08:09 Consult Cardiology Routine Ordered Studies 02/15/20 12:39 CT lumbar spine wo con Stat IMPRESSION: 1. Acute bilateral sacral insufficiency fractures are demonstrated with unchanged alignment. 2. Unchanged appearance of the T12 and L1 compression deformities with prior kyphoplasty. 3. Posterior interbody malcolm and screw fusion at L2-S1 with multilevel discectomy changes are redemonstrated. Hardware appears intact. 4. Ill-defined air and fluid-filled collection within the subcutaneous and paraspinal muscular distribution of the midline incision measures over 12 cm in length. Sterility cannot be determined by imaging alone. Hospital Course (1) Back pain: (2) Seroma: (3) Leukocytosis: -Likely secondary to postoperative seroma as identified on CT -No need for abx per ortho, as she still has antibiotic beads in place (4) Postoperative back pain: 74-year-old female, with history of CAD, hypertension, diabetes mellitus type 2, well-controlled, RA, anemia, and multiple recent back surgeries, who now presents with back pain. Patient was admitted under Dr. Street's service, and was recently discharged to [facility]. Patient was experiencing more back pain after physical therapy, and therefore she presented to emergency room. During her last admission, she underwent seroma incision and drainage, L1 compression fracture kyphoplasty, and also lumbar pelvic fusion for sacral fracture. CT of lumbar spine was obtained in the emergency room, showed acute bilateral sacral insufficiency fractures, unchanged alignment. Unchanged appearance of T12 and L1 compression deformities with prior kyphoplasty. Posterior interbody malcolm and screw fusion at L2 S1 with multilevel discectomy changes re- demonstrated. Hardware appears intact. Also showed ill-defined air and fluid- filled collection within the subcutaneous and paraspinal muscular distribution of the midline incision measures over 12 cm in length, sterilely cannot be determined by imaging alone. Dr. Street aware of the patient, will officially consult for further recommendations -Patient also has leukocytosis, and seroma identified on CT, Dr. Street says no abx needed, has Abx beads in place -Tylenol and tramadol ordered for back pain -Abx needed for UTI, treatment finished -PT/OT eval, Ambulate, plan to discharge to [facility] (5) Diabetes mellitus, type II: -Well-controlled, A1c 6.5% in 12/2019 -May continue metformin for now (6) Atrial fibrillation with RVR: Now in PCU-Cards on case, Metoprolol Tartrate 50 TID Was on Heparin gtt, now switched to warfarin as of yesterday Will need INR checks closely and warfarin adjusted as needed (7) Anemia: Hemoglobin~ 8-9 -Continue to monitor -Consider iron supplement HTN -Currently blood pressure acceptable -May increase hydralazine dose in the future if needed -Continue to monitor CAD -Stable, no chest pain -Continue aspirin, statin, beta-pamela UTI Rocephin, finished course RA -Previously on Plaquenil and methotrexate, currently not taking any medications -No acute RA involving any joints Labs checked DC to ARF, Covid Ordered, Granger out, Warfarin started yesterday Code: Full Total Time Total Time Spent Total Time Spent (In Minutes): 40 Total Time Includes: Examination of the Patient, Discharge Planning, Medication Reconciliation and Communication With Other Providers Discharge Plan Discharge Items Patient Disposition: Transfer Inpatient Rehab Fac Reason For Visit: BACK PAIN, POST-OP Discharge Diagnosis: (1) Back pain: (2) Seroma: (3) Leukocytosis: (4) Postoperative back pain: (5) Diabetes mellitus, type II: (6) Atrial fibrillation with RVR: (7) Anemia: (8) HTN (9) CAD (10) UTI (11) RA Health Concerns: AFIB and INR Activity: Per Instructions section Activity Comment: Per Dr Street on Prev DC Lifting: None Bathing: Keep incision dry Exercise/Sports: None Driving/Machine Use: None Weightbearing: Full weightbearing Non-emergency contact: Primary Care Provider, Specialist and Enhanced Environmental Operator Call non-emergency contact if: you have any medication questions Follow-up/Referrals: Rashaad Street DO [Surgeon] - (Call for instructions and follow up appointment) [facility] [Non-Staff] - Reynold Kitchen DO [Enhanced Environmental Operator] - (2-3 weeks) Derrek Sparks MD [Primary Care Provider] - Diet: Carb Consistent or DM2 and Heart Healthy Addtl Attending Provider Instructions: Warfarin as per INR Need to recheck electrolytes, BMP, and magnesium level within 1 week. Magnesium supplement started. Need to have her INR checked in 2 days, started on warfarin but currently subtherapeutic. Warfarin dose needs to be adjusted as needed. Patient then will need to be set up with [facility] Coumadin clinic. You are also anemic, and it is recommended that you start iron supplements. R ecommend to recheck your blood counts in about a week. Addtl Client Relations Specialist Provider Instructions: SELF CARE INSTRUCTIONS AFTER THORACIC/LUMBAR FUSIONS 1. You may walk to your tolerance. It is good exercise for your legs and back. Expect some back and intermittent leg aches and pains. 2. You may perform "counter-top" level activities (make a sandwich, gal with a project, etc.). 3. No bending or lifting of more than 10 pounds or back twisting of any nature (roll like a log when turning in bed). 4. You may ride in a car for 20-30 minutes at a time. No driving until after your first visit with your doctor. 5. Frequent changes of position and restricting sitting to 30 minutes at a time will help limit the amount of back spasms and stiffness you may experience. 6. You may discontinue the use of ambulatory aids (cane, crutches, etc.) once your strength and confidence allow. 7. You may metal pickling equipment operator the shower and let water strike your incision when you arr pantera home at least once daily. Do not take a tub bath, sit in a hot tub or go into a swimming pool until after your first recheck in the office. SPECIAL CARE INSTRUCTIONS: VERY IMPORTANT TO READ AND REVIEW A. Your surgical incision has been closed with a cosmetic suture under the skin that will dissolve in about 6 weeks. In 14 days, you can use a pair of clean scissors and cut the suture that is left outside of the skin at the ends of your incision. 1. The small skin tapes can be removed 7 days after surgery if they have not fallen off by that point. 2. You may keep the wound open to air as much as possible to promote healing after post-op day number 5 unless told otherwise by your doctor. 3. If you think the wound looks like it is becoming infected (redness or w orsening drainage) and/or you are experiencing fever, chill or worsening back pain and muscle spasms, contact the office so that we may evaluate you as soon as possible. B. Complications are uncommon, but please contact us if you have any signs or symptoms of: 1. wound infection (fever higher than 102.5 degrees F, redness, separation of wound, drainage, or increasing pain from the incision) 2. blood clots in legs (pain, swelling, redness and warmth in legs) 3. urinary tract infection (fever higher than 102.5 degrees F, burning upon urination or increased frequency of urination) 4. nerve problems (inability to walk on your toes or heels, numbness, loss of bowel or bladder control) 5. any other symptoms that concern you C. Please call the office at if you have any concerns or questions about your operation or recovery. D. No smoking! Smoking drastically decreases the chance of a solid fusion. E. Do not take any anti-inflammatory medications (Indocin, Advil, Motrin, Aspirin, Naprosyn, etc.) as these may inhibit the chance of a solid fusion. Tylenol is okay to take for pain. MANAGING PAIN AFTER SPINAL SURGERY 1. Narcotic medication is intended for short-term use and will be provided for surgical pain. Surgical pain usually lasts for a period of 4-6 weeks. Narcotic medication includes Percocet, Vicodin, Darvocet, Tylenol #3 or Lortab. 2. Longer-term pain is more appropriately treated with non-narcotic medication such as Tylenol ES. 3. Muscle spasm is not appropriately treated with narcotics. Muscle relaxers such as Soma, Flexeril or Skelaxin can be used along with Tylenol ES. 4. Remember that we all live with some "aches and pains". This is not unusual or uncommon after an injury or as we get older. a. Back pain is expected and may include muscle spasms for 4 to 6 weeks after surgery. The pain should gradually improve. If the pain worsens for no apparent reason, please contact the office. b. Intermittent leg pain may also be experienced and should not be concerned about unless it worsens for no apparent reason. If so, please contact the office. 5. We will provide appropriate medication within the normal guidelines of their prescribed use. We will also be very cautious and aware of potential abuse and extended duration of patients' medication needs. a. Pain medications are for your comfort and to assist with sleep and rest so that the tissue can heal. They are not provided in order to return to normal activity and should not be used through the day. To do so or worsening pain at night can result from ongoing tissue damage and development of tolerance to the prescribed medicine. 6. Please allow 2-3 days to process refills. Prescriptions will not be mailed but must be picked up at the office. FOLLOW UP VISIT: Keep your scheduled follow-up appointment. Any questions, please call the office at . Pending Studies at Discharge: Yes Studies:: COVID test, 02/07 COVID negative Stand-Alone Forms: My [facility] Skilled Items Patient informed of condition?: Yes DNR: No Discharge Level of Care: Acute rehab Communicable Disease: Yes Discharge Prognosis: Improving Lines: None Urinary Catheter: No Medications and DC Order Prescriptions: New metoprolol tartrate 50 mg Tablet 50 mg PO TID Qty: 30 RF: 0 tramadol 50 mg Tablet 50 mg PO Q4H PRN (Reason: pain) Qty: 30 RF: 0 acetaminophen 500 mg Tablet 500 mg PO Q4 Qty: 30 RF: 0 magnesium oxide 400 mg (241.3 mg magnesium) Tablet 400 mg PO TID Qty: 12 RF: 0 warfarin 3 mg tablet 3 mg PO DAILY Qty: 7 RF: 0 ferrous sulfate 324 mg (65 mg iron) tablet,delayed release (DR/EC) 324 mg PO DAILY Qty: 1 RF: 0 Continued fluoxetine [Prozac] 40 mg Capsule 40 mg PO QAM RF: 0 atorvastatin 40 mg Tablet 40 mg PO HS RF: 0 metformin 500 mg Tablet 500 mg PO BID RF: 0 aspirin [Aspirin Low Dose] 81 mg Tablet,Delayed Release (Dr/Ec) 81 mg PO QAM RF: 0 terazosin 2 mg Capsule 2 mg PO HS RF: 0 pantoprazole 40 mg tablet,delayed release (DR/EC) 40 mg PO QAM RF: 0 gabapentin 300 mg Capsule 300 mg PO TID RF: 0 furosemide [Lasix] 20 mg Tablet 20 mg PO DAILY PRN (Reason: Weight Gain) RF: 0 amlodipine 5 mg Tablet 5 mg PO QAM RF: 0 betamethasone dipropionate 0.05 % Cream 1 applic TOPICAL BID PRN (Reason: redness) RF: 0 hydralazine 25 mg tablet 25 mg PO TID RF: 0 levothyroxine 25 mcg Capsule 25 mcg PO QAM RF: 0 Discontinued carvedilol 6.25 mg Tablet 12.5 mg PO BID RF: 0 nitroglycerin 400 mcg/spray Aerosol,[place] 1 dose Translingual DIRECTED PRN (Reason: Chest Pain) RF: 0 Discharge Orders: Discharge Order (Routine); Ordered 02/21/20 Ordered By: Mychal Marcum Admission Data Admit Date/Time: 02/15/20 17:11 Attending Provider: Mychal Marcum Admit Provider: Mychal Marcum Primary Care Provider: Derrek Sparks Other Providers: Neeru Merrill ; Mychal Marcum ; Rashaad Street ; Reynold Kitchen ; Mushtaq Phillips
[2020-02-21] MEDS: NURSING LOW INTENSITY WARFARIN NOMOGRAM SCH (14:17)
--- NOTE | 2020-02-21 16:58 | Cardiology Progress Note ---
Date of Service February 21, 2020 Assessment & Plan (1) Atrial fibrillation with RVR: (2) Hypokalemia: (3) Hypomagnesemia: (4) Anemia: (5) CAD (coronary artery disease): (6) PAD (peripheral artery disease): (7) HTN (hypertension): (8) Diabetes mellitus type 2 in nonobese: (9) CVA (cerebral vascular accident): Patient spontaneously converted to normal sinus rhythm. Potassium and magnesium levels remain significantly low today, will replete. Continue to follow electrolytes closely. Ideally, hopefully she will remain in normal sinus rhythm once electrolytes have stabilized. We will continue metoprolol along with heparin bridge and warfarin with a goal INR of 2-3. Given that she is returned to normal sinus rhythm I do not believe an outpatient bridge will be necessary. Will require close follow-up with [facility] clinic for Coumadin management. Okay to discharge to home from a cardiac standpoint. We will need close outpatient follow-up of electrolytes with the hope of maintaining sinus rhythm. Admission and Anticipated Discharge Date Admission Date: February 15, 2020 Subjective Patient seen and examined, chart reviewed. States that she is feeling okay today. Continues to deny any cardiac complaints of chest pain, shortness of breath, palpitations, lightheadedness, dizziness or syncope. Telemetry reviewed: Normal sinus rhythm without recurrence of atrial fibrillation. Frequent PACs. Review of Systems Review of Systems: All systems reviewed & are unremarkable except as noted in HPI & below Physical Exam Physical Exam: General: Awake, alert and oriented x 3. No acute distress. HEENT: Normocephalic, atraumatic. Pupils equal, round and reactive to light and accommodation. Extraocular muscles are intact. Anicteric sclera. Moist mucous membranes. Neck: No JVD. No bruit. Cardiovascular: irregularly irregular, unable to appreciate murmur, rub or gallop. Pulmonary: Clear to auscultation bilaterally. No rales, rhonchi, or wheezing. Abdomen: Bowel sounds x 4, soft. No rebound, guarding or tenderness. No organomegaly. Extremities: No clubbing, cyanosis or edema. +2 pedal pulses bilaterally. Skin: Warm and dry. Results & Data ([facility]) Vital Signs (Past 12 Hours) Vital Signs Temp Pulse Pulse Pulse Resp BP Pulse Ox 08/26/20 13:16 36.8 C 63 71 71 20 145/73 H 97 02/21/20 11:37 36.8 C 71 20 145/73 H 97 02/21/20 07:08 36.5 C 75 20 152/82 H 97 (1) Anemia Anemia type: unspecified type Qualified Code(s): D64.9 - Anemia, unspecified
== END 2020-02-21 15:39 | DRG 690 ==
LOC: ED 11:57 → SUATTDRO 17:11 → 3W 17:11 → 2S 02-17 04:43

== ENCOUNTER 2020-11-20 11:50 | Inpatient (IN) ==
[2020-11-20] MEDS ORDERED: fentaNYL citrate 100 MCG/2 ML VIAL IV PRN (12:13)
[2020-11-20] MEDS ORDERED: ONDANSETRON INJ 2 MG/ML 2 ML VIAL IV STA (12:13)
[2020-11-20] MEDS ORDERED: SODIUM CHLORIDE 0.9% 500 ML IV STA (12:13)
--- NOTE | 2020-11-20 12:24 | Emergency Department Note ---
Impression & Plan Acute upper gastrointestinal bleeding, Abdominal pain, Vomiting ED Provider Note NAME: ABDIAS GRECO AGE: 75 SEX: F : 1945 ARRIVES VIA: Walk-In INFORMANT: Patient, ED PROVIDER(S): Isiah Díaz DO CHIEF COMPLAINT: Abdominal pain HPI: The patient is a 75-year-old female who presented to the emergency department for evaluation of abdominal pain. The patient had ongoing abdominal pain for the last week. She states the pain waxes and wanes but she has had it constantly over the last 24 hours. She denies having any vomiting but does have nausea. She is also noticed loose bowel movements. She denies having any rectal bleeding but did notice some black stool recently. She denies having any fever. She denies having any chest pain. She was seen at our facility recently for similar complaints but was able to go home after testing did not reveal a source for her pain. She was seen by her primary care physician as well and started on medication for it the loose bowel movements. The patient states the pain is worsened with ambulation palpation as well as food. She states the pain is moderate to severe at this time. ROS: See above HPI for pertinent positives & negatives. A total of 10 systems reviewed and were otherwise negative. PAST MEDICAL HISTORY: See Below PAST SURGICAL HISTORY: See Below FAMILY HISTORY: See Below SOCIAL HISTORY: See Below HOME MEDICATIONS: See Below ALLERGIES: See Below VITALS: See Below PHYSICAL EXAMINATION: GENERAL: The patient is awake and alert. She is very anxious appearing and appears to be uncomfortable. EYES: The conjunctivae are clear. The pupils are round and reactive. EARS, NOSE, MOUTH AND THROAT: The nose is without any evidence of any deformity. NECK: The neck is nontender and supple. RESPIRATORY: Normal respiratory effort is noted there is no evidence of wheezing rhonchi or rales CARDIOVASCULAR: Regular rate and rhythm noted there no murmurs rubs or gallops normal S1 normal S2. GASTROINTESTINAL: The abdomen is mildly distended and diffusely tender. There is guarding in the upper abdomen. MUSCULOSKELETAL/EXTREMITIES: There is no evidence of gross deformity full range of motion is noted in the hips and shoulders. SKIN: There is no obvious evidence of any rash. Skin is warm and dry. NEUROLOGIC: Patient is awake alert and oriented x3. MEDICAL DECISION MAKING: The patient is a 75-year-old female who presented to the emergency department for an evaluation of upper abdominal pain. The patient has been experiencing upper abdominal pain for approximately 1 week. She was seen in our facility and also by her primary care physician. Today in the emergency department I did feel her physical exam was very significant. She had guarding in her upper abdomen. For this reason further laboratory and radiographic studies were obtained. On physical exam she was found to have black stool which was strongly heme positive. She was treated with a proton pump inhibitor. She was treated with IV fluids and IV pain medication. On subsequent reevaluation her symptoms were significantly improved. I [facility] the [facility] have agreed to evaluate the patient in the emergency department for further management and disposition. Triage Nursing notes reviewed. Prior medical records reviewed Vital Signs: reviewed and remarkable for elevated blood pressure. Differential diagnosis: Etiologies such as appendicitis, diverticulitis, obstruction, inflammatory bowel disease, renal colic, PUD, biliary pathology, pancreatitis, mesenteric ischemia, aortic pathology, infections, genitourinary, UTI, perforated viscus, as well as others were entertained. ER treatment provided: See below Diagnostics interpreted by me: ECG: EKG was obtained in the emergency department. My interpretation is sinus rhythm at 80 bpm. PVCs as well as PACs were noted. There is no acute ST segment abnormalities noted and negative beats. This was compared to a tracing from November 182020. The ectopy does appear new compared to the earlier tracing. Cardiac Monitoring: An order was placed for continuous cardiac monitoring. The monitor shows a rate of 89 bpm with sinus rhythm. Laboratory studies: As stated above and show below. Imaging studies: See below Consultation(s): 1410: I discussed this case with Rach who is [facility]. Past Med/Surg History Medical History (Updated 11/20/20 @ 19:25 by Isiah Díaz DO) Anemia CAD (coronary artery disease) 1991 - PTCA/PCI to ramus intermedius complicated by spiral dissection non-obstructive per 2017 cardiac cath Chronic back pain LLE radiculopathy Depression Diabetes mellitus, type II Dyslipidemia GERD (gastroesophageal reflux disease) Hiatal hernia History of breast cancer right breast HTN (hypertension) Hypothyroidism IBS (irritable bowel syndrome) Osteoarthritis PAD (peripheral artery disease) severe right brachiocephalic stenosis and moderate to severe abdominal aortic stenosis- under surveillance by cardiovascular PAF (paroxysmal atrial fibrillation) post operative, no further reoccurance Rheumatoid arthritis Surgical History H/O repair of right rotator cuff 2013 History of back surgery 2019 History of bilateral knee arthroplasty Left (1995), right (2005) History of cardiac cath [facility]-2017 NO STENTS History of cholecystectomy 1998 History of colonoscopy History of fracture of nasal bone History of modified radical mastectomy of right breast 2011 History of shoulder replacement History of total knee replacement left revision Nasal fracture repair Status post lumbar surgery Status post renal artery angioplasty 1991 Family History Daughter Family history of reaction to anesthesia SLOW TO WAKE UP Mother Family history of diabetes mellitus Other Diabetes Heart disease Hypertension Social History Smoking Status: Former smoker Smoking End Date: 1994; Second Hand Exposure: No; Do You Dip or Chew Tobacco: No; Tobacco Cessation Education Requested by Patient: No Hx Alcohol Use: No Hx Substance Use: No Preferred Language: Lithuanian Communication Ability: Effective Visual Impairment: No Limitations Hearing Ability: Normal Box Brander Required: No Beliefs That Will Affect Care: None marital status: Current Living Situation: Spouse current occupational status: retired Other Information That Helps Us Care for You: No Feels Safe at Home: Yes Safety Concerns: Feels Safe At This Time Assistive Devices: Cane, Denture - Upper, Denture - Lower, Glasses and Walker Allergies Allergies Allergy/AdvReac Type Severity Reaction Status Date / Time nadolol AdvReac Unknown GI UPSET Verified 11/20/20 13:16 nitroglycerin AdvReac Unknown HEADACHE Verified 11/20/20 13:16 NSAIDS (Non-Steroidal AdvReac Unknown GI UPSET Verified 11/20/20 13:16 Anti-Inflamma Home Meds Home Medications Medication Instructions Recorded Confirmed aspirin [Aspirin Low Dose] 81 mg PO QAM 04/02/18 11/20/20 atorvastatin 40 mg PO HS 04/02/18 11/20/20 gabapentin 300 mg PO TID 04/02/18 11/20/20 terazosin 2 mg PO HS 04/02/18 11/20/20 hydralazine 25 mg PO TID 01/29/20 11/20/20 bisacodyl [Dulcolax (bisacodyl)] 10 mg AK DAILY PRN 03/18/20 11/20/20 sodium phosphates [Fleet Enema] 118 ml AK DAILY PRN 03/18/20 11/20/20 pantoprazole 40 mg tablet,delayed 40 mg PO DAILY 04/03/20 11/20/20 release ferrous sulfate 324 mg (65 mg 324 mg PO BID tab 04/10/20 11/20/20 iron) tablet,delayed release furosemide 40 mg tablet 40 mg PO DAILY 04/10/20 11/20/20 spironolactone 25 mg tablet 25 mg PO DAILY 07/10/20 11/20/20 sertraline 50 mg PO DAILY 11/18/20 11/20/20 ascorbic acid (vitamin C) 500 mg PO DAILY 11/20/20 11/20/20 levothyroxine 25 mcg PO DAILY 11/20/20 11/20/20 magnesium oxide 400 mg PO TID 11/20/20 11/20/20 metformin 500 mg PO BID 11/20/20 11/20/20 metoprolol tartrate 100 mg PO BID 11/20/20 11/20/20 ondansetron HCl 4 mg PO Q6 11/20/20 11/20/20 potassium chloride 20 meq PO DAILY 11/20/20 11/20/20 warfarin 6 mg PO VAZQUEZ 11/20/20 11/20/20 warfarin 8 mg PO MOTUWETHFRSA 11/20/20 11/20/20 Previous Rx's Medication Instructions Recorded acetaminophen 500 mg PO Q4 #30 tab 02/20/20 magnesium oxide 400 mg PO TID #12 tab 02/20/20 Results & Data (ED) Vital Signs Vital Signs - 24 hr 11/20/20 11:58 11/20/20 12:27 11/20/20 13:30 Temperature 36.1 C L Temperature Source Temporal Artery Scan Pulse Rate 54 L Pulse Rate [Finger] 77 Respiratory Rate 20 16 Respiratory Depth Normal Blood Pressure 127/81 Blood Pressure [Right Arm] 166/64 H Blood Pressure Mean 96 Blood Pressure Mean [Right Arm] 98 Pulse Oximetry 99 98 95 Oxygen Delivery Method Room Air Room Air Sepsis Recent Fever Within 48 Hours No Sepsis New/Unexplained Change in Mental Status N/A Sepsis Action Taken by Nursing No Action Required Home Medications Current Medication List: was personally reviewed by me Laboratory Data Attestation: I reviewed the patient's lab results. Result diagrams: 11/20/20 12:25 11/20/20 12:25 Lab Results 11/20/20 11/20/20 11/20/20 Range/Units 12:25 12:25 12:25 WBC 10.52 (4.8-10.8) K/uL RBC 3.61 L (4.2-5.4) M/uL Hgb 11.2 L (12.0-16.0) g/dL Hct 34.7 L (37-47) % MCV 96.1 (80-100) fL MCH 31.0 (25-34) pg MCHC 32.3 (32-36) g/dL RDW Std Deviation 47.0 H (36.4-46.3) fL RDW Coeff of Farheen 13.5 (11.5-14.5) % Plt Count 185 (130-400) K/uL MPV 8.7 (7.4-10.4) fL Immature Gran % (Auto) 0.2 % Neut % (Auto) 72.6 % Lymph % (Auto) 17.5 % [place] % (Auto) 7.9 % Eos % (Auto) 1.6 % Baso % (Auto) 0.2 % Neut # (Auto) 7.64 H (1.4-6.5) K/uL Lymph # (Auto) 1.84 (1.2-3.4) K/uL [place] # (Auto) 0.83 H (0.11-0.59) K/uL Eos # (Auto) 0.17 (0-0.5) K/uL Baso # (Auto) 0.02 (0-0.2) K/uL Immature Gran # (Auto) 0.02 (0.00-0.02) K/uL ESR 47 H (0-30) mm/hr PT 20.0 H (9.0-12.0) Seconds INR 2.1 H (0.9-1.1) APTT 32.8 H (21.0-31.0) Seconds PTT Ratio 1.2 Sodium (136-145) mmol/L Potassium (3.5-5.1) mmol/L Chloride (98-107) mmol/L Carbon Dioxide (21-32) mmol/L Anion Gap (3-11) BUN (7-18) mg/dl Creatinine (0.6-1.2) mg/dl Est Cr Clr Drug Dosing Est GFR ( Amer) ml/min Est GFR (Non-Af Amer) ml/min BUN/Creatinine Ratio (10-20) Glucose (70-99) mg/dl Calcium (8.5-10.1) mg/dl Total Bilirubin (0.2-1) mg/dl AST (15-37) U/L ALT (12-78) U/L Alkaline Phosphatase (45-117) U/L Troponin I (0-0.045) ng/ml C-Reactive Protein (0-0.29) mg/dl Total Protein (6.4-8.2) gm/dl Albumin (3.4-5.0) gm/dl Globulin (2.5-4.0) gm/dl Albumin/Globulin Ratio (0.9-2) Lipase (73-393) U/L Specimen Hemolysis COVID-19 Eval Order SARS-CoV-2 (PCR) (Negative) Blood Type Antibody Screen Antibody Identification Crossmatch 11/20/20 11/20/20 11/20/20 Range/Units 12:25 13:43 13:43 WBC (4.8-10.8) K/uL RBC (4.2-5.4) M/uL Hgb (12.0-16.0) g/dL Hct (37-47) % MCV (80-100) fL MCH (25-34) pg MCHC (32-36) g/dL RDW Std Deviation (36.4-46.3) fL RDW Coeff of Farheen (11.5-14.5) % Plt Count (130-400) K/uL MPV (7.4-10.4) fL Immature Gran % (Auto) % Neut % (Auto) % Lymph % (Auto) % [place] % (Auto) % Eos % (Auto) % Baso % (Auto) % Neut # (Auto) (1.4-6.5) K/uL Lymph # (Auto) (1.2-3.4) K/uL [place] # (Auto) (0.11-0.59) K/uL Eos # (Auto) (0-0.5) K/uL Baso # (Auto) (0-0.2) K/uL Immature Gran # (Auto) (0.00-0.02) K/uL ESR (0-30) mm/hr PT (9.0-12.0) Seconds INR (0.9-1.1) APTT (21.0-31.0) Seconds PTT Ratio Sodium 136 (136-145) mmol/L Potassium 3.6 (3.5-5.1) mmol/L Chloride 104 (98-107) mmol/L Carbon Dioxide 25 (21-32) mmol/L Anion Gap 7.0 (3-11) BUN 12 (7-18) mg/dl Creatinine 1.02 (0.6-1.2) mg/dl Est Cr Clr Drug Dosing Not Reportable Est GFR ( Amer) 61.9 ml/min Est GFR (Non-Af Amer) 53.4 ml/min BUN/Creatinine Ratio 12.2 (10-20) Glucose 147 H (70-99) mg/dl Calcium 9.2 (8.5-10.1) mg/dl Total Bilirubin 0.9 (0.2-1) mg/dl AST 24 (15-37) U/L ALT 12 (12-78) U/L Alkaline Phosphatase 93 (45-117) U/L Troponin I < 0.015 (0-0.045) ng/ml C-Reactive Protein 1.61 H (0-0.29) mg/dl Total Protein 7.4 (6.4-8.2) gm/dl Albumin 3.2 L (3.4-5.0) gm/dl Globulin 4.2 H (2.5-4.0) gm/dl Albumin/Globulin Ratio 0.8 L (0.9-2) Lipase 81 (73-393) U/L Specimen Hemolysis COVID-19 Eval Order Covid19 at [facility] SARS-CoV-2 (PCR) NEGATIVE (Negative) Blood Type Antibody Screen Antibody Identification Crossmatch 11/20/20 Range/Units 14:07 WBC (4.8-10.8) K/uL RBC (4.2-5.4) M/uL Hgb (12.0-16.0) g/dL Hct (37-47) % MCV (80-100) fL MCH (25-34) pg MCHC (32-36) g/dL RDW Std Deviation (36.4-46.3) fL RDW Coeff of Farheen (11.5-14.5) % Plt Count (130-400) K/uL MPV (7.4-10.4) fL Immature Gran % (Auto) % Neut % (Auto) % Lymph % (Auto) % [place] % (Auto) % Eos % (Auto) % Baso % (Auto) % Neut # (Auto) (1.4-6.5) K/uL Lymph # (Auto) (1.2-3.4) K/uL [place] # (Auto) (0.11-0.59) K/uL Eos # (Auto) (0-0.5) K/uL Baso # (Auto) (0-0.2) K/uL Immature Gran # (Auto) (0.00-0.02) K/uL ESR (0-30) mm/hr PT (9.0-12.0) Seconds INR (0.9-1.1) APTT (21.0-31.0) Seconds PTT Ratio Sodium (136-145) mmol/L Potassium (3.5-5.1) mmol/L Chloride (98-107) mmol/L Carbon Dioxide (21-32) mmol/L Anion Gap (3-11) BUN (7-18) mg/dl Creatinine (0.6-1.2) mg/dl Est Cr Clr Drug Dosing Est GFR ( Amer) ml/min Est GFR (Non-Af Amer) ml/min BUN/Creatinine Ratio (10-20) Glucose (70-99) mg/dl Calcium (8.5-10.1) mg/dl Total Bilirubin (0.2-1) mg/dl AST (15-37) U/L ALT (12-78) U/L Alkaline Phosphatase (45-117) U/L Troponin I (0-0.045) ng/ml C-Reactive Protein (0-0.29) mg/dl Total Protein (6.4-8.2) gm/dl Albumin (3.4-5.0) gm/dl Globulin (2.5-4.0) gm/dl Albumin/Globulin Ratio (0.9-2) Lipase (73-393) U/L Specimen Hemolysis COVID-19 Eval Order SARS-CoV-2 (PCR) (Negative) Blood Type O Positive Antibody Screen POSITIVE A Antibody Identification Anti-K Crossmatch See Detail Administered Medications Ferrous Sulfate (Ferrous Sulfate 325 Mg Tab) 325 mg PO BIDM DIAMOND Stop: 12/20/20 16:59 Last Admin: 11/20/20 18:32 Dose: 325 mg Documented by: [id number] Potassium Chloride/Sodium Chloride (Normal Saline W/20 Meq Kcl) 20 meq in 1,000 mls @ 80 mls/hr IV .[id number] DIAMOND Stop: 11/21/20 06:29 Last Admin: 11/20/20 18:31 Dose: 80 mls/hr Documented by: [id number] Insulin Aspart (Insulin Aspart 100 Units/Ml 3 Ml Pen) 0 units SC ACHS DIAMOND Stop: 12/20/20 16:34 Last Admin: 11/20/20 17:41 Dose: Not Given Documented by: [id number] Cosigned by: [id number] Discontinued Medications Fentanyl Citrate (Fentanyl Citrate 100 Mcg/2 Ml Vial) 50 mcg IV Q15M PRN PRN Reason: Pain Stop: 12/04/20 12:12 Last Admin: 11/20/20 12:26 Dose: 50 mcg Documented by: [id number] Sodium Chloride (Nss) 500 mls @ 999 mls/hr IV .Q31M STA Stop: 11/20/20 12:43 Last Infusion: 11/20/20 13:04 Dose: 0 mls/hr Documented by: [id number] Admin: 11/20/20 12:25 Dose: 999 mls/hr Documented by: [id number] Pantoprazole Sodium 40 mg/ (Syringe) 10 mls @ 5 mls/min IV NOW ONE Stop: 11/20/20 13:41 Last Admin: 11/20/20 15:22 Dose: 5 mls/min Documented by: [id number] Ceftriaxone Sodium (Rocephin) 2,000 mg in 70 mls @ 100 mls/hr IV NOW STA; Protocol Stop: 11/20/20 15:19 Last Infusion: 11/20/20 16:15 Dose: 0 mls/hr Documented by: [id number] Admin: 11/20/20 15:22 Dose: 100 mls/hr Documented by: [id number] Metronidazole (Flagyl) 500 mg in 100 mls @ 100 mls/hr IV NOW STA Stop: 11/20/20 15:27 Last Infusion: 11/20/20 17:05 Dose: 0 mls/hr Documented by: [id number] Admin: 11/20/20 16:05 Dose: 100 mls/hr Documented by: [id number] Ioversol (Optiray 320 100ml) 88 ml IV ONCE ONE Stop: 11/20/20 13:23 Last Admin: 11/20/20 13:22 Dose: 88 ml Documented by: [id number] Ondansetron HCl (Ondansetron Inj 2 Mg/Ml 2 Ml Vial) 4 mg IV NOW STA Stop: 11/20/20 12:14 Last Admin: 11/20/20 12:26 Dose: 4 mg Documented by: [id number] Imaging Data Radiologist's Impression: Chest X-Ray 11/20/20 12:14 SINGLE VIEW CHEST CLINICAL HISTORY: Atypical chest pain. Vomiting. FINDINGS: An AP, portable, upright chest radiograph is compared to study dated 01/29/2020. The cardiomediastinal silhouette is unremarkable noting atheroscle rotic calcification of the thoracic aorta. There is chronic elevation of the right hemidiaphragm with associated atelectasis. The lungs and pleural spaces are otherwise clear. No pneumothorax is seen. The skeletal structures are osteopenic. The bony thorax is grossly intact. A right shoulder arthroplasty is in place. Arthritic changes seen in the left shoulder. IMPRESSION: No active disease in the chest. ACT 112: Negative or not required by law. Electronically signed by: Joao Dan M.D. 11/20/2020 12:38 PM Abdomen/Pelvis CT 11/20/20 12:20 CT abd pelvis IV con only CLINICAL HISTORY: Abdominal pain COMPARISON STUDY: October 2014 TECHNIQUE: The patient was scanned in a dynamic helical fashion during intravenous administration of 88 cc of Optiray 320. A dose lowering technique was utilized adhering to the principles of ALARA. CT DOSE: 1143.09 mGy.cm FINDINGS: Lower chest: There is elevation right hemidiaphragm. There are right basilar atelectatic changes. Liver: There is mild central intrahepatic biliary ductal dilatation. This is slightly more pronounced than on the prior study. The common bile duct measures 10 mm. Gallbladder: Gallbladder is surgically absent Spleen: Normal in size and attenuation. Pancreas: Unremarkable. Adrenal glands: Unremarkable. Kidneys: There is a 19 mm left renal cyst. There is no hydronephrosis. No solid renal masses are visualized. Bowel: There are no transition zones indicate bowel obstruction. There are scattered colonic diverticula. There is no evidence of acute diverticulitis. There are no findings to indicate acute appendicitis. There is mild godinez colonic wall thickening consistent with a pancolitis. Peritoneum: There is no intraperitoneal free air or abdominal ascites. Vasculature: There is no evidence of abdominal aortic aneurysm. There are severe atheromatous changes present within the abdominal aorta with evidence of luminal narrowing. Adenopathy: None. Pelvic viscera: The bladder, and pelvic viscera are unremarkable. Skeletal structures: There are postsurgical changes present within the lumbar spine and sacrum. There are bilateral sacroiliac bolts. There are SI joint erosive changes. There are old T11 and T12 vertebral body compression fractures status post vertebroplasties. IMPRESSION: 1. No evidence of bowel obstruction. No evidence of free air 2. Mild pancolonic wall thickening consistent with a pancolitis. 3. Surgically absent gallbladder with mild intra and extrahepatic biliary ductal dilatation possibly secondary to a reservoir effect. This is mildly increased when compared to prior October 2014 study 4. Advanced atheromatous changes within the abdominal aorta with evidence of luminal narrowing ACT 112: Negative or not required by law. Electronically signed by: Avery López M.D. 11/20/2020 1:36 PM Discharge Plan Visit Data Chief Complaint: Vomiting Stated Complaint: VOMITING,DIARRHEA ED Provider: Isiah Díaz Discharge Problem: Acute upper gastrointestinal bleeding, Abdominal pain, Vomiting Patient Disposition: Admitted As Inpatient Condition: Good Discharge Instructions Interventions: ED Discharge Assessment Last Done: 11/20/20 16:10 Discharge Problem: Abdominal pain Qualifiers: Abdominal location: epigastric Qualified Code(s): R10.13 - Epigastric pain Vomiting Qualifiers: Vomiting type: unspecified Vomiting Intractability: non-intractable Nausea presence: with nausea Qualified Code(s): R11.2 - Nausea with vomiting, unspeci fied
[2020-11-20 12:39] LABS: Basophils # (auto) 0.02 K/uL (0-0.2); Basophils % (auto) 0.2 %; Eosinophils # (auto) 0.17 K/uL (0-0.5); Eosinophils % (auto) 1.6 %; Hematocrit (blood only) 34.7 % (37-47); Hemoglobin 11.2 g/dL (12.0-16.0); Immature Granulocytes # (auto) 0.02 K/uL (0.00-0.02); Immature Granulocytes % (auto) 0.2 %; Lymphocytes # (auto) 1.84 K/uL (1.2-3.4); Lymphocytes % (auto) 17.5 %; Mean Corpuscular Hgb Conc 32.3 g/dL (32-36); Mean Corpuscular Volume 96.1 fL (80-100); Mean Platelet Volume 8.7 fL (7.4-10.4); Monocytes # (auto) 0.83 K/uL (0.11-0.59); Monocytes % (auto) 7.9 %; Neutrophils # (auto) 7.64 K/uL (1.4-6.5); Neutrophils % (auto) 72.6 %; Platelet Count 185 K/uL (130-400); RDW Coefficient of Variation 13.5 % (11.5-14.5); Red Blood Count 3.61 M/uL (4.2-5.4); White Blood Count 10.52 K/uL (4.8-10.8)
--- NOTE | 2020-11-20 12:40 | XRay Report ---
SINGLE VIEW CHEST CLINICAL HISTORY: Atypical chest pain. Vomiting. FINDINGS: An AP, portable, upright chest radiograph is compared to study dated 01/29/2020. The cardiome diastinal silhouette is unremarkable noting atherosclerotic calcification of the thoracic aorta. Ther e is chronic elevation of the right hemidiaphragm with associated atelectasis. The lungs and pleural spaces are otherwise clear. No pneumothorax is seen. The skeletal structures are osteopenic. The bony thorax is grossly intact. A right shoulder arthroplasty is in place. Arthritic changes seen in the l eft shoulder. IMPRESSION: No active disease in the chest. ACT 112: Negative or not required by law. Electronically signed by: Joao Dan M.D. 11/20/2020 12:38 PM
[2020-11-20 12:50] LABS: INR 2.1 (0.9-1.1); Partial Thromboplastin Ratio 1.2; Partial Thromboplastin Time 32.8 Seconds (21.0-31.0)
[2020-11-20 12:58] LABS: Alanine Aminotransferase 12 U/L (12-78); Albumin Globulin Ratio 0.8 (0.9-2); Albumin Level 3.2 gm/dl (3.4-5.0); Aspartate Aminotransferase 24 U/L (15-37); BUN Creatinine Ratio 12.2 (10-20); Bilirubin,Total 0.9 mg/dl (0.2-1); Blood Urea Nitrogen 12 mg/dl (7-18); C Reactive Protein 1.61 mg/dl (0-0.29); Calcium 9.2 mg/dl (8.5-10.1); Carbon Dioxide 25 mmol/L (21-32); Chloride 104 mmol/L (98-107); Est GFR (African American) 61.9 ml/min; Est GFR (Non-African American) 53.4 ml/min; Globulin 4.2 gm/dl (2.5-4.0); Glucose 147 mg/dl (70-99); Lipase 81 U/L (73-393); Potassium 3.6 mmol/L (3.5-5.1); Sodium 136 mmol/L (136-145); Total Protein 7.4 gm/dl (6.4-8.2)
[2020-11-20 13:00] LABS: Alkaline Phosphatase 93 U/L (45-117); Troponin I < 0.015 ng/ml (0-0.045)
[2020-11-20] MEDS ORDERED: OPTIRAY 320 100ml IV ONE (13:22)
--- NOTE | 2020-11-20 13:37 | CT Scan Report ---
CT abd pelvis IV con only CLINICAL HISTORY: Abdominal pain COMPARISON STUDY: October 2014 TECHNIQUE: The patient was scanned in a dynamic helical fashion during intravenous administration of 88 cc of Optiray 320. A dose lowering technique was utilized adhering to the principles of ALARA. CT DOSE: 1143.09 mGy.cm FINDINGS: Lower chest: There is elevation right hemidiaphragm. There are right basilar atelectatic changes. Liver: There is mild central intrahepatic biliary ductal dilatation. This is slightly more pronounced than on the prior study. The common bile duct measures 10 mm. Gallbladder: Gallbladder is surgically absent Spleen: Normal in size and attenuation. Pancreas: Unremarkable. Adrenal glands: Unremarkable. Kidneys: There is a 19 mm left renal cyst. There is no hydronephrosis. No solid renal masses are visu alized. Bowel: There are no transition zones indicate bowel obstruction. There are scattered colonic divertic bay. There is no evidence of acute diverticulitis. There are no findings to indicate acute appendicit is. There is mild godinez colonic wall thickening consistent with a pancolitis. Peritoneum: There is no intraperitoneal free air or abdominal ascites. Vasculature: There is no evidence of abdominal aortic aneurysm. There are severe atheromatous changes present within the abdominal aorta with evidence of luminal narrowing. Adenopathy: None. Pelvic viscera: The bladder, and pelvic viscera are unremarkable. Skeletal structures: There are postsurgical changes present within the lumbar spine and sacrum. There are bilateral sacroiliac bolts. There are SI joint erosive changes. There are old T11 and T12 verteb ral body compression fractures status post vertebroplasties. IMPRESSION: 1. No evidence of bowel obstruction. No evidence of free air 2. Mild pancolonic wall thickening consistent with a pancolitis. 3. Surgically absent gallbladder with mild intra and extrahepatic biliary ductal dilatation possibly secondary to a reservoir effect. This is mildly increased when compared to prior October 2014 study 4. Advanced atheromatous changes within the abdominal aorta with evidence of luminal narrowing ACT 112: Negative or not required by law. Electronically signed by: Avery López M.D. 11/20/2020 1:36 PM
[2020-11-20] MEDS ORDERED: PANTOprazole 40 MG in SYRINGE 0 ML IV ONE (13:40)
[2020-11-20] MEDS ORDERED: metroNIDAZOLE 500 MG/100 ML BAG IV STA (14:28)
--- NOTE | 2020-11-20 14:31 | History & Physical Report ---
Date of Service November 20, 2020 Assessment & Plan (1) Nausea vomiting and diarrhea: (2) Pancolitis: (3) Black tarry stools: This is a 75-year-old female who has significant past medical history of CAD, Chronic HFpEF, hx of TIA, HTN, HLD, PAF anticoagulated on Coumadin, ISATU not on cpap, T2DM, anemia, GERD, obesity, depression who presents to ED secondary to nausea, vomiting, diarrhea and abdominal pain x 7 days. Admit to PCU IV antibiotics rocephin and flagyl stool for cdiff, stool culture consult GI 2/2 to pancolitis, black tarry stool, + FOBT clear liquid diet, NPO after mid night - Last c scope 11/14 + benign polyps removed Antiemetics, APAP for pain monitor h&h (4) OMA (acute kidney injury): likey pre renal due to GI loss/poor intake baseline cr 0.4-0.5 bun/cr 12 and 1.02 today, cr clr 53.4 gentle IVF, monitor hold lasix, metformin avoid nephrotoxic agents (5) PAF (paroxysmal atrial fibrillation): [id number] 9 follows Direct Sitters Cards Metoprolol for rate control warfarin for thrombotic control - hold given GI work up resume warfarin as soon as able, currently in NSR (6) CAD (coronary artery disease): CAD, PVD, Chronic HFpEF, Stenosis of abdominal Aorta on asa, statin, metoprolol, lasix, aldactone as outpt no CP or SOB daily weights, strict I and O hold lasix 2/2 oma and poor po intake (7) Diabetes mellitus, type II: last a1c 5.5 on 07/05/20 hold metformin a1c in a.m. Insulin sliding scale per protocol (8) Anemia: h/h stable at 11.2/34.7 on iron supplement type and cross transfuse hgb < 8 unless symptomatic otherwise (9) HTN (hypertension): BP elevated in ED on hydralazine, metoprolol, lasix and aldactone as outpt monitor (10) DVT prophylaxis: SCD/TEDS hold warfarin/asa due to GI w/u for black stool, resume as soon as able currently in NSR Dispo: PCU PCP: Clare FULL CODE Pt was seen and examined in collaboration with Dr. Hermosillo, please see addendum History of Present Illness Chief Complaint: abdominal pain x 1 week. Primary Care Provider: Derrek Sparks MD This is a 75-year-old female who has significant past medical history of CAD, Chronic HFpEF, hx of TIA, HTN, HLD, PAF anticoagulated on Coumadin, ISATU not on cpap, T2DM, anemia, GERD, obesity, depression who presents to ED secondary to nausea, vomiting, diarrhea and abdominal pain x 7 days. She complains of epigastric abdominal pain, occasionally sharp and occasionally dull, poor appetite & mostly doing liquids due to pain. Pain radiates to L side of abdomen. Pain associated with nausea and vomiting. Pain not associated with eating or bowel habits. Initially there was no blood in stool but + FOBT today. Her stool is dark black today and c/o black stool x 1 week. She does take iron but feels more black than usual. She has chronic lbp due to surgery in the past. She denies NSAID use. She had a colonoscopy on 11/14 which revealed polyps which were benign. She denies hematemesis, f/c/s, chest pain, sob, URI sx, cough, dysuria, increased urg/freq with urination and dsyuria. In ED pt remained hemodynamically stable. Lab work shows a anemia which is baseline for patient. She has have elevated esr/crp at [address] abdomen pelvis concerning for pancolitis. She denies recent travel or sick contacts. She admits to taking her medications this morning and able to keep them down. Allergies Allergy/AdvReac Type Severity Reaction Status Date / Time nadolol AdvReac Unknown GI UPSET Verified 11/20/20 13:16 nitroglycerin AdvReac Unknown HEADACHE Verified 11/20/20 13:16 NSAIDS (Non-Steroidal AdvReac Unknown GI UPSET Verified 11/20/20 13:16 Anti-Inflamma Home Medications Medication Instructions Recorded Confirmed Type aspirin [Aspirin Low Dose] 81 mg PO QAM 04/02/18 11/20/20 History atorvastatin 40 mg PO HS 04/02/18 11/20/20 History gabapentin 300 mg PO TID 04/02/18 11/20/20 History terazosin 2 mg PO HS 04/02/18 11/20/20 History hydralazine 25 mg PO TID 01/29/20 11/20/20 History acetaminophen 500 mg PO Q4 #30 tab 02/20/20 11/20/20 Rx magnesium oxide 400 mg PO TID #12 tab 02/20/20 11/20/20 Rx bisacodyl [Dulcolax (bisacodyl)] 10 mg OH DAILY PRN 03/18/20 11/20/20 History sodium phosphates [Fleet Enema] 118 ml OH DAILY PRN 03/18/20 11/20/20 History pantoprazole 40 mg tablet,delayed 40 mg PO DAILY 04/03/20 11/20/20 History release ferrous sulfate 324 mg (65 mg 324 mg PO BID tab 04/10/20 11/20/20 History iron) tablet,delayed release furosemide 40 mg tablet 40 mg PO DAILY 04/10/20 11/20/20 History spironolactone 25 mg tablet 25 mg PO DAILY 07/10/20 11/20/20 History sertraline 50 mg PO DAILY 11/18/20 11/20/20 History ascorbic acid (vitamin C) 500 mg PO DAILY 11/20/20 11/20/20 History levothyroxine 25 mcg PO DAILY 11/20/20 11/20/20 History magnesium oxide 400 mg PO TID 11/20/20 11/20/20 History metformin 500 mg PO BID 11/20/20 11/20/20 History metoprolol tartrate 100 mg PO BID 11/20/20 11/20/20 History ondansetron HCl 4 mg PO Q6 11/20/20 11/20/20 History potassium chloride 20 meq PO DAILY 11/20/20 11/20/20 History warfarin 6 mg PO VAZQUEZ 11/20/20 11/20/20 History warfarin 8 mg PO MOTUWETHFRSA 11/20/20 11/20/20 History Past Med/Surg History Medical History (Updated 11/20/20 @ 15:28 by Rach Triana PA-C) Anemia CAD (coronary artery disease) 1991 - PTCA/PCI to ramus intermedius complicated by spiral dissection non-obstructive per 2017 cardiac cath Chronic back pain LLE radiculopathy Depression Diabetes mellitus, type II Dyslipidemia GERD (gastroesophageal reflux disease) Hiatal hernia History of breast cancer right breast HTN (hypertension) Hypothyroidism IBS (irritable bowel syndrome) Osteoarthritis PAD (peripheral artery disease) severe right brachiocephalic stenosis and moderate to severe abdominal aortic stenosis- under surveillance by cardiovascular PAF (paroxysmal atrial fibrillation) post operative, no further reoccurance Rheumatoid arthritis Surgical History H/O repair of right rotator cuff 2012 History of back surgery 2019 History of bilateral knee arthroplasty Left (1995), right (2005) History of cardiac cath [facility]-2017 NO STENTS History of cholecystectomy 1998 History of colonoscopy History of fracture of nasal bone History of modified radical mastectomy of right breast 2011 History of shoulder replacement History of total knee replacement left revision Nasal fracture repair Status post lumbar surgery Status post renal artery angioplasty 1991 Family History Daughter Family history of reaction to anesthesia SLOW TO WAKE UP Mother Family history of diabetes mellitus Other Diabetes Heart disease Hypertension Social History Smoking Status: Former smoker Smoking End Date: 1994; Second Hand Exposure: No; Do You Dip or Chew Tobacco: No; Tobacco Cessation Education Requested by Patient: No Hx Alcohol Use: No Hx Substance Use: No Preferred Language: Mohawk Communication Ability: Effective Visual Impairment: No Limitations 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 Beliefs That Will Affect Care: None marital status: Current Living Situation: Spouse current occupational status: retired Other Information That Helps Us Care for You: No Feels Safe at Home: Yes Safety Concerns: Feels Safe At This Time Assistive Devices: Cane, Denture - Upper, Denture - Lower, Glasses and Walker Review of Systems Review of Systems: All systems reviewed & are unremarkable except as noted in HPI & below Physical Exam Physical Exam: Constitutional: WD/WN, vitals as above, NAD, sitting up in bed, pleasant, conversing easily Head: Normocephalic, Atraumatic Eyes: PERRL, conjunctivae normal, anicteric sclerae ENMT: external ear and nose normal, oropharynx normal Neck: trachea midline, no thyromegaly normal visual inspection Respiratory: normal respiratory effort, lungs clear to auscultation, no wheeze, rales, rhonchi. Normal insp/exp effort, no accessory muscle use Cardiovascular: RRR with ectopy, 2/6 JEANETH noted RUSB, no edema Vessels: no JVD or carotid bruit Chest: normal inspection of chest Abdomen: normal bowel sounds, soft, tender to palpation diffusely, no rebound, guarding, rigidity, no hepatosplenomegaly Musculoskeletal: no cyanosis or clubbing, extremities motor strength 5/5 Skin: no rashes, warm and dry normal turgor Neurologic: PERRL, EOMI, accommodation nl, no face palsy, no dysarthria CN's II-XI intact bilaterally and moves all extremities Psychiatric: A+Ox3, euthymic affect Lymphatic: no cervical or axillary lymphadenopathy : deferred Results & Data Results & Data ([facility]) Vital Signs (Past 12 Hours) Vital Signs Temp Pulse Pulse Resp BP BP Pulse Ox 11/20/20 13:30 77 16 166/64 H 95 11/20/20 12:27 98 11/20/20 11:58 36.1 C L 54 L 20 127/81 99 Diagnostic Findings Chest X-Ray 11/20/20 12:14 SINGLE VIEW CHEST CLINICAL HISTORY: Atypical chest pain. Vomiting. FINDINGS: An AP, portable, upright chest radiograph is compared to study dated 01/29/2020. The cardiomediastinal silhouette is unremarkable noting atherosclerotic calcification of the thoracic aorta. There is chronic elevation of the right hemidiaphragm with associated atelectasis. The lungs and pleural spaces are otherwise clear. No pneumothorax is seen. The skeletal structures are osteopenic. The bony thorax is grossly intact. A right shoulder arthroplasty is in place. Arthritic changes seen in the left shoulder. IMPRESSION: No active disease in the chest. ACT 112: Negative or not required by law. Electronically signed by: Joao Dan M.D. 11/20/2020 12:38 PM Abdomen/Pelvis CT 11/20/20 12:20 CT abd pelvis IV con only CLINICAL HISTORY: Abdominal pain COMPARISON STUDY: October 2014 TECHNIQUE: The patient was scanned in a dynamic helical fashion during intravenous administration of 88 cc of Optiray 320. A dose lowering technique was utilized adhering to the principles of ALARA. CT DOSE: 1143.09 mGy.cm FINDINGS: Lower chest: There is elevation right hemidiaphragm. There are right basilar atelectatic changes. Liver: There is mild central intrahepatic biliary ductal dilatation. This is slightly more pronounced than on the prior study. The common bile duct measures 10 mm. Gallbladder: Gallbladder is surgically absent Spleen: Normal in size and attenuation. Pancreas: Unremarkable. Adrenal glands: Unremarkable. Kidneys: There is a 19 mm left renal cyst. There is no hydronephrosis. No solid renal masses are visualized. Bowel: There are no transition zones indicate bowel obstruction. There are scattered colonic diverticula. There is no evidence of acute diverticulitis. There are no findings to indicate acute appendicitis. There is mild godinez colonic wall thickening consistent with a pancolitis. Peritoneum: There is no intraperitoneal free air or abdominal ascites. Vasculature: There is no evidence of abdominal aortic aneurysm. There are severe atheromatous changes present within the abdominal aorta with evidence of luminal narrowing. Adenopathy: None. Pelvic viscera: The bladder, and pelvic viscera are unremarkable. Skeletal structures: There are postsurgical changes present within the lumbar spine and sacrum. There are bilateral sacroiliac bolts. There are SI joint erosive changes. There are old T11 and T12 vertebral body compression fractures status post vertebroplasties. IMPRESSION: 1. No evidence of bowel obstruction. No evidence of free air 2. Mild pancolonic wall thickening consistent with a pancolitis. 3. Surgically absent gallbladder with mild intra and extrahepatic biliary ductal dilatation possibly secondary to a reservoir effect. This is mildly increased when compared to prior October 2014 study 4. Advanced atheromatous changes within the abdominal aorta with evidence of luminal narrowing ACT 112: Negative or not required by law. Electronically signed by: Avery López M.D. 11/20/2020 1:36 PM Medications Administered Fentanyl Citrate (Fentanyl Citrate 100 Mcg/2 Ml Vial) 50 mcg IV Q15M PRN PRN Reason: Pain Stop: 12/04/20 12:12 Last Admin: 11/20/20 12:26 Dose: 50 mcg Documented by: [id number] Discontinued Medications Sodium Chloride (Nss) 500 mls @ 999 mls/hr IV .Q31M STA Stop: 11/20/20 12:43 Last Infusion: 11/20/20 13:04 Dose: 0 mls/hr Documented by: [id number] Admin: 11/20/20 12:25 Dose: 999 mls/hr Documented by: [id number] Ioversol (Optiray 320 100ml) 88 ml IV ONCE ONE Stop: 11/20/20 13:23 Last Admin: 11/20/20 13:22 Dose: 88 ml Documented by: [id number] Ondansetron HCl (Ondansetron Inj 2 Mg/Ml 2 Ml Vial) 4 mg IV NOW STA Stop: 11/20/20 12:14 Last Admin: 11/20/20 12: Dose: 4 mg Documented by: [id number] ECG Rate (beats per minute): 80 Rhythm: normal sinus Findings: + PVC and + prolonged QT (491ms) COVID-19 Results Results COVID-19 Adm Lab Results: RBC 3.61 M/uL (4.2-5.4) L 11/20/20 WBC 10.52 K/uL (4.8-10.8) 11/20/20 Hgb 11.2 g/dL (12.0-16.0) L 11/20/20 Hct 34.7 % (37-47) L 11/20/20 Plt Count 185 K/uL (130-400) 11/20/20 Neutrophils (%) (Auto) 72.6 % 11/20/20 Lymphocytes (%) (Auto) 17.5 % 11/20/20 Monocytes # (Auto) 0.83 K/uL (0.11-0.59) H 11/20/20 Eosinophils # (Auto) 0.17 K/uL (0-0.5) 11/20/20 Immature Granulocyte % (Auto) 0.2 % 11/20/20 Neutrophils # (Auto) 7.64 K/uL (1.4-6.5) H 11/20/20 Lymphocytes # (Auto) 1.84 K/uL (1.2-3.4) 11/20/20 Monocytes # (Auto) 0.83 K/uL (0.11-0.59) H 11/20/20 Eosinophils # (Auto) 0.17 K/uL (0-0.5) 11/20/20 Basophils # (Auto) 0.02 K/uL (0-0.2) 11/20/20 Immature Granulocyte # (Auto) 0.02 K/uL (0.00-0.02) 11/20/20 Na 136 mmol/L (136-145) 11/20/20 K 3.6 mmol/L (3.5-5.1) 11/20/20 Cl 104 mmol/L (98-107) 11/20/20 CO2 25 mmol/L (21-32) 11/20/20 Anion Gap 7.0 (3-11) 11/20/20 BUN 12 mg/dl (7-18) 11/20/20 Creatinine 1.02 mg/dl (0.6-1.2) 11/20/20 BUN/Creatinine Ratio 12.2 (10-20) 11/20/20 Glucose Level 147 mg/dl (70-99) H 11/20/20 Ca 9.2 mg/dl (8.5-10.1) 11/20/20 Total Bilirubin 0.9 mg/dl (0.2-1) 11/20/20 AST/SGOT 24 U/L (15-37) 11/20/20 ALT/SGPT 12 U/L (12-78) 11/20/20 Alkaline Phosphatase 93 U/L (45-117) 11/20/20 Total Protein 7.4 gm/dl (6.4-8.2) 11/20/20 Albumin 3.2 gm/dl (3.4-5.0) L 11/20/20 Globulin 4.2 gm/dl (2.5-4.0) H 11/20/20 Albumin/Globulin Ratio 0.8 (0.9-2) L 11/20/20 Troponin I < 0.015 ng/ml (0-0.045) 11/20/20 CRP 1.61 mg/dl (0-0.29) H 11/20/20 PTT 32.8 Seconds (21.0-31.0) H 11/20/20 INR 2.1 (0.9-1.1) H 11/20/20 COVID-19 PCR NEGATIVE (Negative) 11/20/20 Chest X-Ray 11/20/20 Code Status & VTE Plan Code Status Full Code VTE Prophylaxis Plan VTE Prophylaxis will be ordered: Yes Supervising Physician Co-Signing Physician Notes Patient is a 75-year-old female with history of coronary artery disease, CHF, hypertension, paroxysmal A. fib on anticoagulation with Coumadin and other medical problems presents with history of nausea, vomiting, diarrhea, abdominal pain since 1 week duration. She reports abdominal pain is predominantly epigastric, lower left and right quadrants, sharp to dull in quality, associated with poor oral intake secondary to nausea, vomiting. She also states noticing black-colored stools since 1 week duration. She denies any NSAID use. Recently had polypectomy as outpatient. Please review HPI for complete details of presentation. CT abdomen showed mild pericolonic wall thickening consistent with pancolitis. On exam patient is elderly, no apparent distress, normocephalic atraumatic, lungs are clear to auscultation, normal bowel sounds, S1-S2,+ 12 mu rmur, no pedal edema, abdomen mild tenderness in epigastric, lower quadrants, no guarding or rigidity, normal bowel sounds, alert, awake, oriented, grossly nonfocal deficits. Patient is admitted for management of pancolitis, melena, to rule out GI bleed. Agree with starting Rocephin, Flagyl, IV fluids, pain control, consulted GI. Will check stool studies if tolerates diarrhea, check fecal occult. Agree with Protonix IV twice daily. Monitor H&H and transfuse PRBCs as needed. Hold nephrotoxic agents given OMA. Monitor renal function. I personally reviewed the record. Patient is interviewed and examined at bedside. Patient's care is coordinated with Rach Triana PA-C. Please refer to the documentation above for details of patient's presentation and for discussion of other issues.
[2020-11-20] MEDS ORDERED: cefTRIAXone SODIUM 2,000 MG/70 ML BAG IV STA (14:38)
--- NOTE | 2020-11-20 14:54 | Electrocardiogram Report ---
Test Reason : Blood Pressure : / mmHG Vent. Rate : 080 BPM Atrial Rate : 082 BPM P-R Int : 166 ms QRS Dur : 098 ms QT Int : 426 ms P-R-T Axes : 047 061 079 degrees QTc Int : 491 ms Sinus rhythm with occasional , and consecutive Premature ventricular complexes and Premature atrial c omplexes Prolonged QT Abnormal ECG When compared with ECG of 18-NOV-2020 13:04, Premature ventricular complexes are now Present Confirmed by Isiah Shepherd ([id number]) on 11/20/2020 2:53:55 PM Referred By: Confirmed By:Isiah Shepherd
[2020-11-20] MEDS ORDERED: ALUMINUM/MAGNESIUM SUSP 30 ML UDC PO PRN (16:35)
[2020-11-20] MEDS ORDERED: DEXTROSE 50% 50 ML SYRINGE IV PRN (16:35)
[2020-11-20] MEDS ORDERED: GLUCOSE 10 TABS/TUBE PO PRN (16:35)
[2020-11-20] MEDS ORDERED: SODIUM CHLORIDE 0.9% 250 ML IV PRN (16:35)
[2020-11-20] MEDS ORDERED: CARBOHYDRATES FOR HYPOGLYCEMIA PO PRN (16:35)
[2020-11-20] MEDS ORDERED: GLUCAGON FOR INJ 1 MG VIAL SQ PRN (16:35)
[2020-11-20] MEDS ORDERED: GLUCOSE 40% GEL 15 GM TUBE PO PRN (16:35)
[2020-11-20] MEDS: INSULIN ASPART 100 UNITS/ML 3 ML PEN SC SCH ×2 (17:41→21:49)
[2020-11-20] MEDS ORDERED: NSS + 20MEQ KCL 20 MEQ/1,000 ML BAG IV SCH (18:00)
[2020-11-20] MEDS: FERROUS SULFATE 325 MG TAB PO SCH (18:32)
[2020-11-20 19:43] LABS: Appearance Urine Cloudy (Clear); Bacteria Urine Automated Negative (Negative); Bilirubin Urine Negative (Negative); Blood Urine Negative (Negative); Cast Urine Automated 0 /lpf (0-5); Color Urine Yellow; Epithelial Cell Urine Auto 20-30 /lpf (0-5); Glucose Urine UA Negative (Negative); Ketones Urine Negative (Negative); Leukocyte Esterase Urine 2+ (Negative); Nitrite Urine Negative (Negative); Protein Urine Negative (Negative); RBC Urine Automated 0-4 /hpf (0-4); Specific Gravity Urine 1.034 (1.000-1.030); Urobilinogen Urine Negative (Negative); WBC Urine Automated >30 /hpf (0-5)
[2020-11-20] MEDS: PROMETHAZINE HCL 6.25 MG in SODIUM CHLORIDE 0.9% 50 ML IV PRN (19:53)
[2020-11-20 20:56] LABS: Hematocrit (blood only) 34.7 % (37-47)
[2020-11-20] MEDS: MAGNESIUM OXIDE 400 MG TAB PO SCH (21:03)
[2020-11-20] MEDS: hydrALAZINE HCL 25 MG TAB PO SCH (21:03)
[2020-11-20] MEDS: GABAPENTIN 300 MG CAP PO SCH (21:03)
[2020-11-20] MEDS: TERAZOSIN HCL 1 MG CAP PO SCH (21:03)
[2020-11-20] MEDS: PANTOprazole 40 MG in SYRINGE 0 ML IV SCH (21:03)
[2020-11-20] MEDS: ATORVASTATIN 40 MG TAB PO SCH (21:03)
[2020-11-20] MEDS: METOPROLOL TARTRATE 100 MG TAB PO SCH (21:03)
[2020-11-20] MEDS: metroNIDAZOLE 500 MG/100 ML BAG IV SCH (23:28)
[2020-11-20] MEDS ORDERED: MoRPHine SULFATE 4 MG/ML 1 ML CARP\\VIAL IV STA (23:39)
[2020-11-21 05:11] LABS: Basophils # (auto) 0.03 K/uL (0-0.2); Basophils % (auto) 0.3 %; Eosinophils # (auto) 0.14 K/uL (0-0.5); Eosinophils % (auto) 1.5 %; Hematocrit (blood only) 32.6 % (37-47); Hemoglobin 10.3 g/dL (12.0-16.0); Immature Granulocytes # (auto) 0.01 K/uL (0.00-0.02); Immature Granulocytes % (auto) 0.1 %; Lymphocytes % (auto) 27.4 %; Mean Corpuscular Hgb Conc 31.6 g/dL (32-36); Mean Corpuscular Volume 98.2 fL (80-100); Mean Platelet Volume 8.5 fL (7.4-10.4); Monocytes # (auto) 0.76 K/uL (0.11-0.59); Monocytes % (auto) 8.3 %; Neutrophils # (auto) 5.68 K/uL (1.4-6.5); Neutrophils % (auto) 62.4 %; Platelet Count 181 K/uL (130-400); RDW Coefficient of Variation 13.3 % (11.5-14.5); RDW Standard Deviation 47.9 fL (36.4-46.3); Red Blood Count 3.32 M/uL (4.2-5.4); White Blood Count 9.12 K/uL (4.8-10.8)
[2020-11-21 05:18] LABS: INR 2.6 (0.9-1.1); Prothrombin Time 24.4 Seconds (9.0-12.0)
[2020-11-21] MEDS: LEVOTHYROXINE SODIUM 25 MCG TABLET PO SCH (05:19)
[2020-11-21 05:36] LABS: Albumin Level 2.9 gm/dl (3.4-5.0); BUN Creatinine Ratio 11.4 (10-20); Calcium 8.6 mg/dl (8.5-10.1); Creatinine Clr Calc Pharmacy 67.5 ml/min; Est GFR (African American) 78.2 ml/min; Est GFR (Non-African American) 67.5 ml/min; Magnesium 1.2 mg/dl (1.8-2.4); Potassium 3.3 mmol/L (3.5-5.1)
[2020-11-21 05:38] LABS: Albumin Globulin Ratio 0.8 (0.9-2); Bilirubin,Total 0.8 mg/dl (0.2-1); Globulin 3.6 gm/dl (2.5-4.0); Total Protein 6.5 gm/dl (6.4-8.2)
[2020-11-21] MEDS: metroNIDAZOLE 500 MG/100 ML BAG IV SCH ×2 (07:49→17:03)
[2020-11-21] MEDS: ACETAMINOPHEN 325 MG TAB PO PRN (07:49)
[2020-11-21] MEDS: MAGNESIUM OXIDE 400 MG TAB PO SCH (07:50)
[2020-11-21] MEDS: PANTOprazole 40 MG in SYRINGE 0 ML IV SCH (07:50)
[2020-11-21] MEDS: SPIRONOLACTONE 25 MG TAB PO SCH (07:50)
[2020-11-21] MEDS: GABAPENTIN 300 MG CAP PO SCH (07:51)
[2020-11-21] MEDS: SERTRALINE HCL 50 MG TABLET PO SCH (07:51)
[2020-11-21] MEDS: METOPROLOL TARTRATE 100 MG TAB PO SCH (07:51)
[2020-11-21] MEDS: ASCORBIC ACID 500 MG TAB PO SCH (07:52)
[2020-11-21] MEDS: POTASSIUM CHLORIDE CRTAB 20 MEQ TABCR PO SCH (07:52)
[2020-11-21] MEDS: hydrALAZINE HCL 25 MG TAB PO SCH ×2 (07:52→14:24)
[2020-11-21] MEDS: FERROUS SULFATE 325 MG TAB PO SCH (07:53)
[2020-11-21] MEDS: INSULIN ASPART 100 UNITS/ML 3 ML PEN SC SCH ×4 (08:07→18:18)
--- NOTE | 2020-11-21 08:12 | Gastrointestinal Consultation ---
Date of Consultation November 21, 2020 Assessment & Plan (1) Abdominal pain: (2) Abnormal CT of the abdomen: This is a 75-year-old female admitted with nausea vomiting abdominal pain and diarrhea x2 weeks of unclear etiology. GI asked to evaluate for pancolitis seen on CT, and black stools. Patient tells me black stools are not unusual for her, in the setting of oral iron use. Her chronic anemia is at baseline without elevated BUN, making acute upper GI bleeding unlikely. She just had a colonoscopy 7 days ago notable for several polyps and diverticulosis, internal hemorrhoids but otherwise unremarkable; and symptoms began prior to this. Abd is soft; mildly TTP upper abd. - Would rule out infectious etiology; await c. diff testing and GI pathogen panel. Can continue empiric antibiotics, - IV hydration - Clear liquid diet as tolerated Continue IV PPI twice daily Monitor and document GI output Trend H&H - Antiemetics as needed Analgesia as needed - Unclear if endoscopy (such as EGD) would be beneficial at this time Supervising Physician Co-Signing Physician Notes Consult for pancolitis on imaging PE she is somnolent but arousable, abd exam is benign Reports no diarrhea overnite Recent colonoscopy with polyp removal (small polyps) - er visit and then a subsequent er visit leading to admission No current need for egd Agree with further plan of care as below. History of Present Illness Reason for Consultation: pancolitis, black stool Requesting Physician: Rach Triana PA-C Attending Physician: Litzy Ayala MD History of Present Illness This is a 75 y/o female with PMHx a-fib, colonic polyps, chronic anemia, CAD, Chronic HFpEF, prior TIA, HTN, HLD, PAF on Coumadin, T2DM, GERD, and others admitted yesterday after presenting to the ED secondary to nausea, vomiting, diarrhea and abdominal pain x 2 weeks. She was found to have OMA and mild pancolitis on CT. CXR neg. She was admitted to the PCU, started on empiric antibiotics, Rocephin and Flagyl, awaiting stool cultures/c diff testing. She has chronic stable anemia; no leukocytosis. Overnight, she had 2 watery stools, some black noted, but was not melanotic per staff. Patient states she has chronic intermittent black stools, takes oral iron. Typically she does not have diarrhea. She is hypertensive today; afebrile. OMA improving. She states symptoms started approximately 2 weeks ago, with vomiting and diarrhea several times per day, though not every day, along with some upper abdominal discomfort. Symptoms were not clearly prandially related. She takes a daily PPI. She just had a colonoscopy 7 days ago as below. She denies hematemesis, fevers or chills, abdominal distention, chest pain or shortness of breath, hematuria, hematochezia, new medicines, well water, antibiotics, NSAID use, tobacco or alcohol. In the past serologies for celiac sprue were neg. Last colonoscopy 11/14/20: The examined portion of the ileum was normal. - Three 6 to 15 mm polyps in the transverse colon, removed using injection-lift and a hot snare. Resected and retrieved. Clips were placed. - Post-polypectomy scars in the transverse colon and in the ascending colon. No residual seen. - A tattoo was seen in the transverse colon. - Diverticulosis in the sigmoid colon. - Non-bleeding internal hemorrhoids. VCE 2018: Normal Last EGD 2018: Inlet patch. 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 Small hiatal hernia. Very mild thrush that is not likely to explain the patient's symptoms and does not need to be treated. Large bore dilator passed. Allergies Allergy/AdvReac Type Severity Reaction Status Date / Time nadolol AdvReac Unknown GI UPSET Verified 11/20/20 13:16 nitroglycerin AdvReac Unknown HEADACHE Verified 11/20/20 13:16 NSAIDS (Non-Steroidal AdvReac Unknown GI UPSET Verified 11/20/20 13:16 Anti-Inflamma Home Medications Medication Instructions Recorded Confirmed Type aspirin [Aspirin Low Dose] 81 mg PO QAM 04/02/18 11/20/20 History atorvastatin 40 mg PO HS 04/02/18 11/20/20 History gabapentin 300 mg PO TID 04/02/18 11/20/20 History terazosin 2 mg PO HS 04/02/18 11/20/20 History hydralazine 25 mg PO TID 01/29/20 11/20/20 History acetaminophen 500 mg PO Q4 #30 tab 02/20/20 11/20/20 Rx magnesium oxide 400 mg PO TID #12 tab 02/20/20 11/20/20 Rx bisacodyl [Dulcolax (bisacodyl)] 10 mg MS DAILY PRN 03/18/20 11/20/20 History sodium phosphates [Fleet Enema] 118 ml MS DAILY PRN 03/18/20 11/20/20 History pantoprazole 40 mg tablet,delayed 40 mg PO DAILY 04/03/20 11/20/20 History release ferrous sulfate 324 mg (65 mg 324 mg PO BID tab 04/10/20 11/20/20 History iron) tablet,delayed release furosemide 40 mg tablet 40 mg PO DAILY 04/10/20 11/20/20 History spironolactone 25 mg tablet 25 mg PO DAILY 07/10/20 11/20/20 History sertraline 50 mg PO DAILY 11/18/20 11/20/20 History ascorbic acid (vitamin C) 500 mg PO DAILY 11/20/20 11/20/20 History levothyroxine 25 mcg PO DAILY 11/20/20 11/20/20 History magnesium oxide 400 mg PO TID 11/20/20 11/20/20 History metformin 500 mg PO BID 11/20/20 11/20/20 History metoprolol tartrate 100 mg PO BID 11/20/20 11/20/20 History ondansetron HCl 4 mg PO Q6 11/20/20 11/20/20 History potassium chloride 20 meq PO DAILY 11/20/20 11/20/20 History warfarin 6 mg PO VAZQUEZ 11/20/20 11/20/20 History warfarin 8 mg PO [id number] 11/20/20 11/20/20 History Patient History Medical History (Updated 11/21/20 @ 11:20 by Giselle Dobson PA-C) Anemia CAD (coronary artery disease) 1991 - PTCA/PCI to ramus intermedius complicated by spiral dissection non-obstructive per 2017 cardiac cath Chronic back pain LLE radiculopathy Depression Diabetes mellitus, type II Dyslipidemia GERD (gastroesophageal reflux disease) Hiatal hernia History of breast cancer right breast HTN (hypertension) Hypothyroidism IBS (irritable bowel syndrome) Osteoarthritis PAD (peripheral artery disease) severe right brachiocephalic stenosis and moderate to severe abdominal aortic stenosis- under surveillance by cardiovascular PAF (paroxysmal atrial fibrillation) post operative, no further reoccurance Rheumatoid arthritis Surgical History H/O repair of right rotator cuff 2013 History of back surgery 2019 History of bilateral knee arthroplasty Left (1995), right (2005) History of cardiac cath [facility]-2017 NO STENTS History of cholecystectomy 1998 History of colonoscopy History of fracture of nasal bone History of modified radical mastectomy of right breast 2011 History of shoulder replacement History of total knee replacement left revision Nasal fracture repair Status post lumbar surgery Status post renal artery angioplasty 1991 Family History Daughter Family history of reaction to anesthesia SLOW TO WAKE UP Mother Family history of diabetes mellitus Other Diabetes Heart disease Hypertension Social History Smoking Status: Former smoker Smoking End Date: 1994; Second Hand Exposure: No; Do You Dip or Chew Tobacco: No; Tobacco Cessation Education Requested by Patient: No Hx Alcohol Use: No Hx Substance Use: No Preferred Language: Angolan Communication Ability: Effective Visual Impairment: No Limitations Hearing Ability: Normal 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 Required: No Beliefs That Will Affect Care: None marital status: Current Living Situation: Spouse current occupational status: retired Other Information That Helps Us Care for You: No Feels Safe at Home: Yes Safety Concerns: Feels Safe At This Time Assistive Devices: None Review of Systems Review of Systems: All systems reviewed & are unremarkable except as noted in HPI & below Physical Exam Constitutional: WD/WN, vitals as above Eyes: + anicteric sclerae Respiratory: normal respiratory effort, lungs clear to auscultation Cardiovascular: RRR, no murmur, no edema Gastrointestinal (Abdomen): Inspection/Auscultation: abdomen normal to inspection and normal bowel sounds; abdomen not distended Percussion/Pa lpation: abdomen soft; no guarding Mild epigastric tenderness, no rebound Skin: no rashes, warm and dry Psychiatric: A+Ox3, euthymic affect Results & Data ([facility]) Vital Signs (Past 12 Hours) Vital Signs Temp Pulse Pulse Resp BP Pulse Ox 11/21/20 07:08 36.5 C 86 18 158/88 H 96 11/21/20 03:51 36.4 C L 68 20 150/70 H 95 11/20/20 23:47 76 11/20/20 23:18 36.8 C 58 L 16 156/70 H 93 11/20/20 21:40 88 160/78 H Laboratory Results 11/21/20 11/21/20 11/21/20 Range/Units 07:09 04:52 04:52 WBC (4.8-10.8) K/uL RBC (4.2-5.4) M/uL Hgb (12.0-16.0) g/dL Hct (37-47) % MCV (80-100) fL MCH (25-34) pg MCHC (32-36) g/dL RDW Std Deviation (36.4-46.3) fL RDW Coeff of Farhe[place] (11.5-14.5) % Plt Count (130-400) K/uL MPV (7.4-10.4) fL Immature Gran % (Auto) % Neut % (Auto) % Lymph % (Auto) % Clay % (Auto) % Eos % (Auto) % Baso % (Auto) % Neut # (Auto) (1.4-6.5) K/uL Lymph # (Auto) (1.2-3.4) K/uL Clay # (Auto) (0.11-0.59) K/uL Eos # (Auto) (0-0.5) K/uL Baso # (Auto) (0-0.2) K/uL Immature Gran # (Auto) (0.00-0.02) K/uL ESR (0-30) mm/hr PT (9.0-12.0) Seconds INR (0.9-1.1) APTT (21.0-31.0) Seconds PTT Ratio Sodium 141 (136-145) mmol/L Potassium 3.3 L (3.5-5.1) mmol/L Chloride 108 H (98-107) mmol/L Carbon Dioxide 27 (21-32) mmol/L Anion Gap 6.0 (3-11) BUN 10 (7-18) mg/dl Creatinine 0.84 (0.6-1.2) mg/dl Est Cr Clr Drug Dosing 67.5 Est GFR ( Amer) 78.2 ml/min Est GFR (Non-Af Amer) 67.5 ml/min BUN/Creatinine Ratio 11.4 (10-20) Glucose 105 H (70-99) mg/dl POC Glucose 105 H (70-99) mg/dl Estimat Average Glucose 134 mg/dl Hemoglobin A1c 6.3 H (4.5-5.6) % Calcium 8.6 (8.5-10.1) mg/dl Magnesium 1.2 L (1.8-2.4) mg/dl Total Bilirubin 0.8 (0.2-1) mg/dl AST 14 L (15-37) U/L ALT 9 L (12-78) U/L Alkaline Phosphatase 83 (45-117) U/L Troponin I (0-0.045) ng/ml C-Reactive Protein (0-0.29) mg/dl Total Protein 6.5 (6.4-8.2) gm/dl Albumin 2.9 L (3.4-5.0) gm/dl Globulin 3.6 (2.5-4.0) gm/dl Albumin/Globulin Ratio 0.8 L (0.9-2) Lipase (73-393) U/L Specimen Hemolysis Urine Color Urine Appearance (Clear) Urine pH (4.5-7.5) Ur Specific [place] (1.000-1.030) Urine Protein (Negative) Urine Glucose (UA) (Negative) Urine Ketones (Negative) Urine Blood (Negative) Urine Nitrite (Negative) Urine Bilirubin (Negative) Urine Urobilinogen (Negative) Ur Leukocyte Esterase (Negative) Urine WBC (Auto) (0-5) /hpf Urine RBC (Auto) (0-4) /hpf U Hyaline Cast (Auto) (0-5) /lpf U Epithel Cells (Auto) (0-5) /lpf Urine Bacteria (Auto) (Negative) Stool Occult Bld Scrn (Negative) Stl C. diff Tox B Gene (Neg) COVID-19 Eval Order SARS-CoV-2 (PCR) (Negative) Blood Type Antibody Screen Antibody Identification Antibody ID Comment Crossmatch 11/21/20 11/21/20 11/20/20 Range/Units 04:52 04:52 21:50 WBC 9.12 (4.8-10.8) K/uL RBC 3.32 L (4.2-5.4) M/uL Hgb 10.3 L (12.0-16.0) g/dL Hct 32.6 L (37-47) % MCV 98.2 (80-100) fL MCH 31.0 (25-34) pg MCHC 31.6 L (32-36) g/dL RDW Std Deviation 47.9 H (36.4-46.3) fL RDW Coeff of Farheen 13.3 (11.5-14.5) % Plt Count 181 (130-400) K/uL MPV 8.5 (7.4-10.4) fL Immature Gran % (Auto) 0.1 % Neut % (Auto) 62.4 % Lymph % (Auto) 27.4 % Clay % (Auto) 8.3 % Eos % (Auto) 1.5 % Baso % (Auto) 0.3 % Neut # (Auto) 5.68 (1.4-6.5) K/uL Lymph # (Auto) 2.50 (1.2-3.4) K/uL Clay # (Auto) 0.76 H (0.11-0.59) K/uL Eos # (Auto) 0.14 (0-0.5) K/uL Baso # (Auto) 0.03 (0-0.2) K/uL Immature Gran # (Auto) 0.01 (0.00-0.02) K/uL ESR (0-30) mm/hr PT 24.4 H (9.0-12.0) Seconds INR 2.6 H (0.9-1.1) APTT (21.0-31.0) Seconds PTT Ratio Sodium (136-145) mmol/L Potassium (3.5-5.1) mmol/L Chloride (98-107) mmol/L Carbon Dioxide (21-32) mmol/L Anion Gap (3-11) BUN (7-18) mg/dl Creatinine (0.6-1.2) mg/dl Est Cr Clr Drug Dosing Est GFR ( Amer) ml/min Est GFR (Non-Af Amer) ml/min BUN/Creatinine Ratio (10-20) Glucose (70-99) mg/dl POC Glucose (70-99) mg/dl Estimat Average Glucose mg/dl Hemoglobin A1c (4.5-5.6) % Calcium (8.5-10.1) mg/dl Magnesium (1.8-2.4) mg/dl Total Bilirubin (0.2-1) mg/dl AST (15-37) U/L ALT (12-78) U/L Alkaline Phosphatase (45-117) U/L Troponin I (0-0.045) ng/ml C-Reactive Protein (0-0.29) mg/dl Total Protein (6.4-8.2) gm/dl Albumin (3.4-5.0) gm/dl Globulin (2.5-4.0) gm/dl Albumin/Globulin Ratio (0.9-2) Lipase (73-393) U/L Specimen Hemolysis Urine Color Urine Appearance (Clear) Urine pH (4.5-7.5) Ur Specific [place] (1.000-1.030) Urine Protein (Negative) Urine Glucose (UA) (Negative) Urine Ketones (Negative) Urine Blood (Negative) Urine Nitrite (Negative) Urine Bilirubin (Negative) Urine Urobilinogen (Negative) Ur Leukocyte Esterase (Negative) Urine WBC (Auto) (0-5) /hpf Urine RBC (Auto) (0-4) /hpf U Hyaline Cast (Auto) (0-5) /lpf U Epithel Cells (Auto) (0-5) /lpf Urine Bacteria (Auto) (Negative) Stool Occult Bld Scrn (Negative) Stl C. diff Tox B Gene Negative Cdiff Gene (Neg) COVID-19 Eval Order SARS-CoV-2 (PCR) (Negative) Blood Type Antibody Screen Antibody Identification Antibody ID Comment Crossmatch 11/20/20 11/20/20 11/20/20 Range/Units 21:50 20:55 20:40 WBC (4.8-10.8) K/uL RBC (4.2-5.4) M/uL Hgb 11.0 L (12.0-16.0) g/dL Hct 34.7 L (37-47) % MCV (80-100) fL MCH (25-34) pg MCHC (32-36) g/dL RDW Std Deviation (36.4-46.3) fL RDW Coeff of Farheen (11.5-14.5) % Plt Count (130-400) K/uL MPV (7.4-10.4) fL Immature Gran % (Auto) % Neut % (Auto) % Lymph % (Auto) % Clay % (Auto) % Eos % (Auto) % Baso % (Auto) % Neut # (Auto) (1.4-6.5) K/uL Lymph # (Auto) (1.2-3.4) K/uL Clay # (Auto) (0.11-0.59) K/uL Eos # (Auto) (0-0.5) K/uL Baso # (Auto) (0-0.2) K/uL Immature Gran # (Auto) (0.00-0.02) K/uL ESR (0-30) mm/hr PT (9.0-12.0) Seconds INR (0.9-1.1) APTT (21.0-31.0) Seconds PTT Ratio Sodium (136-145) mmol/L Potassium (3.5-5.1) mmol/L Chloride (98-107) mmol/L Carbon Dioxide (21-32) mmol/L Anion Gap (3-11) BUN (7-18) mg/dl Creatinine (0.6-1.2) mg/dl Est Cr Clr Drug Dosing Est GFR ( Amer) ml/min Est GFR (Non-Af Amer) ml/min BUN/Creatinine Ratio (10-20) Glucose (70-99) mg/dl POC Glucose 133 H (70-99) mg/dl Estimat Average Glucose mg/dl Hemoglobin A1c (4.5-5.6) % Calcium (8.5-10.1) mg/dl Magnesium (1.8-2.4) mg/dl Total Bilirubin (0.2-1) mg/dl AST (15-37) U/L ALT (12-78) U/L Alkaline Phosphatase (45-117) U/L Troponin I (0-0.045) ng/ml C-Reactive Protein (0-0.29) mg/dl Total Protein (6.4-8.2) gm/dl Albumin (3.4-5.0) gm/dl Globulin (2.5-4.0) gm/dl Albumin/Globulin Ratio (0.9-2) Lipase (73-393) U/L Specimen Hemolysis Urine Color Urine Appearance (Clear) Urine pH (4.5-7.5) Ur Specific [place] (1.000-1.030) Urine Protein (Negative) Urine Glucose (UA) (Negative) Urine Ketones (Negative) Urine Blood (Negative) Urine Nitrite (Negative) Urine Bilirubin (Negative) Urine Urobilinogen (Negative) Ur Leukocyte Esterase (Negative) Urine WBC (Auto) (0-5) /hpf Urine RBC (Auto) (0-4) /hpf U Hyaline Cast (Auto) (0-5) /lpf U Epithel Cells (Auto) (0-5) /lpf Urine Bacteria (Auto) (Negative) Stool Occult Bld Scrn Positive A (Negative) Stl C. diff Tox B Gene (Neg) COVID-19 Eval Order SARS-CoV-2 (PCR) (Negative) Blood Type Antibody Screen Antibody Identification Antibody ID Comment Crossmatch 11/20/20 11/20/20 11/20/20 Range/Units 19:20 17:23 14:07 WBC (4.8-10.8) K/uL RBC (4.2-5.4) M/uL Hgb (12.0-16.0) g/dL Hct (37-47) % MCV (80-100) fL MCH (25-34) pg MCHC (32-36) g/dL RDW Std Deviation (36.4-46.3) fL RDW Coeff of Farheen (11.5-14.5) % Plt Count (130-400) K/uL MPV (7.4-10.4) fL Immature Gran % (Auto) % Neut % (Auto) % Lymph % (Auto) % Clay % (Auto) % Eos % (Auto) % Baso % (Auto) % Neut # (Auto) (1.4-6.5) K/uL Lymph # (Auto) (1.2-3.4) K/uL Clay # (Auto) (0.11-0.59) K/uL Eos # (Auto) (0-0.5) K/uL Baso # (Auto) (0-0.2) K/uL Immature Gran # (Auto) (0.00-0.02) K/uL ESR (0-30) mm/hr PT (9.0-12.0) Seconds INR (0.9-1.1) APTT (21.0-31.0) Seconds PTT Ratio Sodium (136-145) mmol/L Potassium (3.5-5.1) mmol/L Chloride (98-107) mmol/L Carbon Dioxide (21-32) mmol/L Anion Gap (3-11) BUN (7-18) mg/dl Creatinine (0.6-1.2) mg/dl Est Cr Clr Drug Dosing Est GFR ( Amer) ml/min Est GFR (Non-Af Amer) ml/min BUN/Creatinine Ratio (10-20) Glucose (70-99) mg/dl POC Glucose 98 (70-99) mg/dl Estimat Average Glucose mg/dl Hemoglobin A1c (4.5-5.6) % Calcium (8.5-10.1) mg/dl Magnesium (1.8-2.4) mg/dl Total Bilirubin (0.2-1) mg/dl AST (15-37) U/L ALT (12-78) U/L Alkaline Phosphatase (45-117) U/L Troponin I (0-0.045) ng/ml C-Reactive Protein (0-0.29) mg/dl Total Protein (6.4-8.2) gm/dl Albumin (3.4-5.0) gm/dl Globulin (2.5-4.0) gm/dl Albumin/Globulin Ratio (0.9-2) Lipase (73-393) U/L Specimen Hemolysis Urine Color Yellow Urine Appearance Cloudy A (Clear) Urine pH 5.0 (4.5-7.5) Ur Specific [place] 1.034 H (1.000-1.030) Urine Protein Negative (Negative) Urine Glucose (UA) Negative (Negative) Urine Ketones Negative (Negative) Urine Blood Negative (Negative) Urine Nitrite Negative (Negative) Urine Bilirubin Negative (Negative) Urine Urobilinogen Negative (Negative) Ur Leukocyte Esterase 2+ H (Negative) Urine WBC (Auto) >30 H (0-5) /hpf Urine RBC (Auto) 0-4 (0-4) /hpf U Hyaline Cast (Auto) 0 (0-5) /lpf U Epithel Cells (Auto) 20-30 H (0-5) /lpf Urine Bacteria (Auto) Negative (Negative) Stool Occult Bld Scrn (Negative) Stl C. diff Tox B Gene (Neg) COVID-19 Eval Order SARS-CoV-2 (PCR) (Negative) Blood Type O Positive Antibody Screen POSITIVE A Antibody Identification Anti-K Antibody ID Comment Crossmatch See Detail 11/20/20 11/20/20 11/20/20 Range/Units 13:43 13:43 12:25 WBC (4.8-10.8) K/uL RBC (4.2-5.4) M/uL Hgb (12.0-16.0) g/dL Hct (37-47) % MCV (80-100) fL MCH (25-34) pg MCHC (32-36) g/dL RDW Std Deviation (36.4-46.3) fL RDW Coeff of Farheen (11.5-14.5) % Plt Count (130-400) K/uL MPV (7.4-10.4) fL Immature Gran % (Auto) % Neut % (Auto) % Lymph % (Auto) % Clay % (Auto) % Eos % (Auto) % Baso % (Auto) % Neut # (Auto) (1.4-6.5) K/uL Lymph # (Auto) (1.2-3.4) K/uL Clay # (Auto) (0.11-0.59) K/uL Eos # (Auto) (0-0.5) K/uL Baso # (Auto) (0-0.2) K/uL Immature Gran # (Auto) (0.00-0.02) K/uL ESR (0-30) mm/hr PT (9.0-12.0) Seconds INR (0.9-1.1) APTT (21.0-31.0) Seconds PTT Ratio Sodium 136 (136-145) mmol/L Potassium 3.6 (3.5-5.1) mmol/L Chloride 104 (98-107) mmol/L Carbon Dioxide 25 (21-32) mmol/L Anion Gap 7.0 (3-11) BUN 12 (7-18) mg/dl Creatinine 1.02 (0.6-1.2) mg/dl Est Cr Clr Drug Dosing Not Reportable Est GFR ( Amer) 61.9 ml/min Est GFR (Non-Af Amer) 53.4 ml/min BUN/Creatinine Ratio 12.2 (10-20) Glucose 147 H (70-99) mg/dl POC Glucose (70-99) mg/dl Estimat Average Glucose mg/dl Hemoglobin A1c (4.5-5.6) % Calcium 9.2 (8.5-10.1) mg/dl Magnesium (1.8-2.4) mg/dl Total Bilirubin 0.9 (0.2-1) mg/dl AST 24 (15-37) U/L ALT 12 (12-78) U/L Alkaline Phosphatase 93 (45-117) U/L Troponin I < 0.015 (0-0.045) ng/ml C-Reactive Protein 1.61 H (0-0.29) mg/dl Total Protein 7.4 (6.4-8.2) gm/dl Albumin 3.2 L (3.4-5.0) gm/dl Globulin 4.2 H (2.5-4.0) gm/dl Albumin/Globulin Ratio 0.8 L (0.9-2) Lipase 81 (73-393) U/L Specimen Hemolysis Urine Color Urine Appearance (Clear) Urine pH (4.5-7.5) Ur Specific [place] (1.000-1.030) Urine Protein (Negative) Urine Glucose (UA) (Negative) Urine Ketones (Negative) Urine Blood (Negative) Urine Nitrite (Negative) Urine Bilirubin (Negative) Urine Urobilinogen (Negative) Ur Leukocyte Esterase (Negative) Urine WBC (Auto) (0-5) /hpf Urine RBC (Auto) (0-4) /hpf U Hyaline Cast (Auto) (0-5) /lpf U Epithel Cells (Auto) (0-5) /lpf Urine Bacteria (Auto) (Negative) Stool Occult Bld Scrn (Negative) Stl C. diff Tox B Gene (Neg) COVID-19 Eval Order Covid19 at [facility] SARS-CoV-2 (PCR) NEGATIVE (Negative) Blood Type Antibody Screen Antibody Identification Antibody ID Comment Crossmatch 11/20/20 11/20/20 11/20/20 Range/Units 12:25 12:25 12:25 WBC 10.52 (4.8-10.8) K/uL RBC 3.61 L (4.2-5.4) M/uL Hgb 11.2 L (12.0-16.0) g/dL Hct 34.7 L (37-47) % MCV 96.1 (80-100) fL MCH 31.0 (25-34) pg MCHC 32.3 (32-36) g/dL RDW Std Deviation 47.0 H (36.4-46.3) fL RDW Coeff of [place]he[place] 13.5 (11.5-14.5) % Plt Count 185 (130-400) K/uL MPV 8.7 (7.4-10.4) fL Immature Gran % (Auto) 0.2 % Neut % (Auto) 72.6 % Lymph % (Auto) 17.5 % Clay % (Auto) 7.9 % Eos % (Auto) 1.6 % Baso % (Auto) 0.2 % Neut # (Auto) 7.64 H (1.4-6.5) K/uL Lymph # (Auto) 1.84 (1.2-3.4) K/uL Clay # (Auto) 0.83 H (0.11-0.59) K/uL Eos # (Auto) 0.17 (0-0.5) K/uL Baso # (Auto) 0.02 (0-0.2) K/uL Immature Gran # (Auto) 0.02 (0.00-0.02) K/uL ESR 47 H (0-30) mm/hr PT 20.0 H (9.0-12.0) Seconds INR 2.1 H (0.9-1.1) APTT 32.8 H (21.0-31.0) Seconds PTT Ratio 1.2 Sodium (136-145) mmol/L Potassium (3.5-5.1) mmol/L Chloride (98-107) mmol/L Carbon Dioxide (21-32) mmol/L Anion Gap (3-11) BUN (7-18) mg/dl Creatinine (0.6-1.2) mg/dl Est Cr Clr Drug Dosing Est GFR ( Amer) ml/min Est GFR (Non-Af Amer) ml/min BUN/Creatinine Ratio (10-20) Glucose (70-99) mg/dl POC Glucose (70-99) mg/dl Estimat Average Glucose mg/dl Hemoglobin A1c (4.5-5.6) % Calcium (8.5-10.1) mg/dl Magnesium (1.8-2.4) mg/dl Total Bilirubin (0.2-1) mg/dl AST (15-37) U/L ALT (12-78) U/L Alkaline Phosphatase (45-117) U/L Troponin I (0-0.045) ng/ml C-Reactive Protein (0-0.29) mg/dl Total Protein (6.4-8.2) gm/dl Albumin (3.4-5.0) gm/dl Globulin (2.5-4.0) gm/dl Albumin/Globulin Ratio (0.9-2) Lipase (73-393) U/L Specimen Hemolysis Urine Color Urine Appearance (Clear) Urine pH (4.5-7.5) Ur Specific [place] (1.000-1.030) Urine Protein (Negative) Urine Glucose (UA) (Negative) Urine Ketones (Negative) Urine Blood (Negative) Urine Nitrite (Negative) Urine Bilirubin (Negative) Urine Urobilinogen (Negative) Ur Leukocyte Esterase (Negative) Urine WBC (Auto) (0-5) /hpf Urine RBC (Auto) (0-4) /hpf U Hyaline Cast (Auto) (0-5) /lpf U Epithel Cells (Auto) (0-5) /lpf Urine Bacteria (Auto) (Negative) Stool Occult Bld Scrn (Negative) Stl C. diff Tox B Gene (Neg) COVID-19 Eval Order SARS-CoV-2 (PCR) (Negative) Blood Type Antibody Screen Antibody Identification Antibody ID Comment Crossmatch Diagnostic Findings CTAP: 1. No evidence of bowel obstruction. No evidence of free air 2. Mild pancolonic wall thickening consistent with a pancolitis. 3. Surgically absent gallbladder with mild intra and extrahepatic biliary ductal dilatation possibly secondary to a reservoir effect. This is mildly increased wh en compared to prior October 2014 study 4. Advanced atheromatous changes within the abdominal aorta with evidence of luminal narrowing CXR: No acute findings (1) Abdominal pain Abdominal location: epigastric Qualified Code(s): R10.13 - Epigastric pain
[2020-11-21 08:21] LABS: Estimated Average Glucose 134 mg/dl; Hemoglobin A1C 6.3 % (4.5-5.6)
[2020-11-21] MEDS ORDERED: MAGNESIUM SULFATE / D5W 1 GM/100 ML BAG IV ONE (08:30)
[2020-11-21] MEDS: POTASSIUM CHLORIDE / WTR 10 MEQ/100 ML PLCT IV SCH ×2 (09:07→10:50)
[2020-11-21] MEDS: PROMETHAZINE HCL 6.25 MG in SODIUM CHLORIDE 0.9% 50 ML IV PRN (09:53)
--- NOTE | 2020-11-21 12:16 | Hospitalist Progress Note ---
Date of Service November 21, 2020 Assessment & Plan (1) Nausea vomiting and diarrhea: Possibly secondary to pancolitis, recent colonoscopy showed no evidence of inflammatory bowel disease. Possible infectious etiology, stool culture ordered on IV Rocephin and Flagyl Positive UA. Ordered for urine culture, on IV Rocephin (2) Pancolitis: (3) Black tarry stools: This is a 75-year-old female who has significant past medical history of CAD, Chronic HFpEF, hx of TIA, HTN, HLD, PAF anticoagulated on Coumadin, ISATU not on cpap, T2DM, anemia, GERD, obesity, depression who presents to ED secondary to nausea, vomiting, diarrhea and abdominal pain x [address] abdomen pelvis shows pancolitis, H&H has been stable overnight, Watery bowel movement yesterday, reports of chronic dark stool patient takes iron supplement GI consulted, appreciate input Patient had colonoscopy 7 days ago, which showed polyps diverticulosis, no evidence of bleeding. Recommends continue empiric antibiotic with IV Rocephin/Flagyl Follow stool culture, stool for C. difficile ordered Does not feel emergent EGD recommended at this point, Supportive care with IV PPI. Clear liquid diet was ordered, patient could not tolerate clears, felt worsening of abdominal discomfort, nausea. Ordered to keep n.p.o. with sips of water and ice chips only Continue to monitor (4) OMA (acute kidney injury): likey pre renal due to GI loss/poor intake baseline cr 0.4-0.5 On admission bun/cr 12 and 1.02 cr clr 53.4 Function improved after IV fluids, continue to hold Lasix and Metformin Follow labs Hypokalemia/low mag: Possible secondary to GI loss, ongoing diarrhea. Replaced, repeat BMP in a.m. (5) PAF (paroxysmal atrial fibrillation): [id number] follows [employer] [facility] Metoprolol for rate control Was on warfarin for thrombotic control -INR 2.6 today Continue to hold Coumadin, as patient still having ongoing GI symptoms. Will consider IV heparin weight-based protocol when INR less than 2 Daily INR check ordered (6) CAD (coronary artery disease): CAD, PVD, Chronic HFpEF, Stenosis of abdominal Aorta Order to hold aspirin/statin/Aldactone/Lasix: Patient having ongoing GI symptoms, dehydration Ordered for IV Lopressor scheduled dose no CP or SOB daily weights, strict I and O hold lasix 2/2 oma and poor po intake (7) Diabetes mellitus, type II: last a1c 5.5 on 07/05/20 hold metformin Hemoglobin A1c 6.1 shows adequate control Insulin sliding scale per protocol (8) Anemia: h/h stable at 11.2/34.7 on iron supplement CASI globin remained stable at 10 transfuse hgb < 8 unless symptomatic otherwise (9) HTN (hypertension): Will change to IV hydralazine, IV Lopressor Continue to hold Lasix and Aldactone for ongoing GI symptoms (10) DVT prophylaxis: SCD/TEDS hold warfarin/asa due to GI w/u for black stool, resume as soon as able currently in NSR PCP: Clare FULL CODE Disposition: Expected to be discharged home when medically stable Admission and Anticipated Discharge Date Admission Date: November 20, 2020 Subjective Follow-up visit for abdominal pain/nausea/diarrhea with black stools: Patient reports having ongoing abdominal discomfort, upset stomach, does not feel well Ordered for clear liquid diet, patient feels nauseous after taking 1 spoon of broth, Last bowel movement yesterday was liquid and dark. Complains of diffuse abdominal bloating, discomfort on bilateral lower abdomen. No vomiting or hematemesis Denies of any chest pain or discomfort, no shortness of breath no fever no chills Review of Systems Review of Systems: All systems reviewed & are unremarkable except as noted in Subjective Physical Exam Constitutional: + ill appearing Eyes: + anicteric sclerae ENMT: Nose: + dry nasal mucous membranes Neck: trachea midline, no thyromegaly Respiratory: normal respiratory effort, lungs clear to auscultation Cardiovascular: RRR, no murmur, no edema Gastrointestinal (Abdomen): Inspection/Auscultation: normal bowel sounds Percussion/Palpation: abdomen soft; abdomen nontender (Mild discomfort on palpation, bowel sound) Skin: no rashes, warm and dry Neurologic: PERRL, EOMI, accommodation nl, no face palsy, no dysarthria Psychiatric: A+Ox3, euthymic affect Results & Data Results & Data ([facility]) Vital Signs (Past 12 Hours) Vital Signs Temp Pulse Pulse Resp BP BP Pulse Ox 11/21/20 11:17 36.4 C L 84 22 155/93 H 97 11/21/20 08:00 60 11/21/20 07:08 36.5 C 86 18 158/88 H 96 11/21/20 03:51 36.4 C L 68 20 150/70 H 95
[2020-11-21] MEDS ORDERED: METOPROLOL TARTRATE 1 MG/ML VIAL IV PRN (12:19)
[2020-11-21] MEDS ORDERED: hydrALAZINE HCL 20 MG/ML VIAL IV PRN (12:23)
[2020-11-21] MEDS ORDERED: ONDANSETRON INJ 2 MG/ML 2 ML VIAL IV PRN (12:25)
--- NOTE | 2020-11-21 15:28 | Electrocardiogram Report ---
Test Reason : Blood Pressure : / mmHG Vent. Rate : 082 BPM Atrial Rate : 082 BPM P-R Int : 166 ms QRS Dur : 096 ms QT Int : 418 ms P-R-T Axes : 044 032 055 degrees QTc Int : 488 ms Sinus rhythm with occasional Premature ventricular complexes and Premature atrial complexes Otherwise normal ECG When compared with ECG of 20-NOV-2020 12:17, No significant change was found Confirmed by Isiah Shepherd ([id number]) on 11/21/2020 3:27:54 PM Referred By: REFERRED SELF Confirmed By:Isiah Shepherd
[2020-11-21] MEDS: cefTRIAXone SODIUM 2,000 MG in DEXTROSE 5% 50 ML IV SCH (17:03)
[2020-11-21] MEDS ORDERED: MoRPHine SULFATE 4 MG/ML 1 ML CARP\\VIAL IV PRN (17:18)
[2020-11-21] MEDS ORDERED: MoRPHine SULFATE 4 MG/ML 1 ML CARP\\VIAL IV STA (17:18)
[2020-11-21] MEDS ORDERED: PANTOPRAZOLE BOLUS/DRIP 1 EA IV STA (17:30)
--- NOTE | 2020-11-21 17:37 | Communication Note ---
Date of Service: November 21, 2020 pt developed severe cramping pain 9/10 on epigastric area /then states it diffused to whole abdomen it started as Burning sensation at epigastric area , protonix IV helps for some times then wears off had 2 more dark liquid BM since morning exam : abdomen soft , diffusely tender , mostly at epigastric area ordered for stat KUB / stat labs: for lactic acid /CBC /CMP stool heme positive NPO including meds /allowed for ice chips only started on IV PPI gtt IV Vit K 5 mg now to reverse coagulopathy GI team will be updated Litzy Ayala MD
[2020-11-21] MEDS ORDERED: Nursing to Pharmacy Communication SCH (17:45)
[2020-11-21 18:07] LABS: Hematocrit (blood only) 33.5 % (37-47); Hemoglobin 10.7 g/dL (12.0-16.0); Mean Corpuscular Hemoglobin 30.8 pg (25-34); Mean Corpuscular Volume 96.5 fL (80-100); Platelet Count 160 K/uL (130-400); RDW Coefficient of Variation 13.7 % (11.5-14.5); Red Blood Count 3.47 M/uL (4.2-5.4); White Blood Count 6.95 K/uL (4.8-10.8)
[2020-11-21] MEDS ORDERED: PANTOprazole 80 MG in DEXTROSE 5% 100 ML IV ONE (18:15)
[2020-11-21] MEDS ORDERED: PHYTONADIONE 5 MG in SODIUM CHLORIDE 0.9% 50 ML IV ONE (18:15)
[2020-11-21] MEDS: METOPROLOL TARTRATE 1 MG/ML VIAL IV SCH (18:18)
[2020-11-21 18:23] LABS: Mean Corpuscular Hgb Conc 31.9 g/dL (32-36)
--- NOTE | 2020-11-21 18:40 | XRay Report ---
KUB CLINICAL HISTORY: Abdominal pain. COMPARISON STUDY: CT of the abdomen and pelvis November 20, 2020. FINDINGS: Incidental note is made of postoperative findings within the lumbosacral spine as well as p ostprocedural findings from vertebroplasty. Pelvic calcifications reflect phleboliths. Calcification adjacent to the greater trochanter of the left femur is chronic. The bowel gas pattern is normal. The re are cholecystectomy clips. Elevation of the right hemidiaphragm is unchanged. IMPRESSION: No evidence for a bowel obstruction. ACT 112: Negative or not required by law. Electronically signed by: Juan José Reeder M.D. 11/21/2020 6:38 PM
[2020-11-21] MEDS: PANTOprazole 40 MG in DEXTROSE 5% 100 ML IV SCH ×2 (18:46→23:29)
[2020-11-21 19:30] LABS: Albumin Globulin Ratio 0.8 (0.9-2); Bilirubin,Total 1.4 mg/dl (0.2-1); Calcium 8.8 mg/dl (8.5-10.1); Creatinine Clr Calc Pharmacy 75.7 ml/min; Est GFR (African American) 89.7 ml/min; Est GFR (Non-African American) 77.4 ml/min; Globulin 3.7 gm/dl (2.5-4.0); Magnesium 1.6 mg/dl (1.8-2.4); Potassium 3.8 mmol/L (3.5-5.1); Total Protein 6.7 gm/dl (6.4-8.2)
[2020-11-22] MEDS: INSULIN ASPART 100 UNITS/ML 3 ML PEN SC SCH ×5 (00:21→21:39)
[2020-11-22] MEDS: PANTOprazole 40 MG in DEXTROSE 5% 100 ML IV SCH ×3 (03:35→13:21)
[2020-11-22 05:50] LABS: Hematocrit (blood only) 32.3 % (37-47); Hemoglobin 10.1 g/dL (12.0-16.0); Mean Corpuscular Hemoglobin 30.1 pg (25-34); Mean Corpuscular Hgb Conc 31.3 g/dL (32-36); Mean Corpuscular Volume 96.4 fL (80-100); Mean Platelet Volume 8.8 fL (7.4-10.4); Platelet Count 157 K/uL (130-400); RDW Coefficient of Variation 13.5 % (11.5-14.5); RDW Standard Deviation 47.5 fL (36.4-46.3); Red Blood Count 3.35 M/uL (4.2-5.4); White Blood Count 6.29 K/uL (4.8-10.8)
[2020-11-22 05:59] LABS: INR 1.4 (0.9-1.1); Prothrombin Time 13.4 Seconds (9.0-12.0)
[2020-11-22] MEDS: METOPROLOL TARTRATE 1 MG/ML VIAL IV SCH ×3 (06:07→11:52)
[2020-11-22 06:24] LABS: Albumin Level 2.9 gm/dl (3.4-5.0); BUN Creatinine Ratio 9.8 (10-20); Calcium 8.6 mg/dl (8.5-10.1); Creatinine Clr Calc Pharmacy 86.5 ml/min; Est GFR (Non-African American) 85.4 ml/min; Magnesium 1.7 mg/dl (1.8-2.4); Potassium 3.6 mmol/L (3.5-5.1)
[2020-11-22 06:26] LABS: Albumin Globulin Ratio 0.8 (0.9-2); Bilirubin,Total 1.3 mg/dl (0.2-1); Globulin 3.5 gm/dl (2.5-4.0); Total Protein 6.4 gm/dl (6.4-8.2)
[2020-11-22] MEDS: metroNIDAZOLE 500 MG/100 ML BAG IV SCH ×3 (08:05→16:49)
[2020-11-22] MEDS: MAGNESIUM SULFATE / D5W 1 GM/100 ML BAG IV SCH ×2 (08:24→10:03)
[2020-11-22] MEDS ORDERED: ACETAMINOPHEN 1,000 MG/100 ML VIAL IV STA (10:46)
--- NOTE | 2020-11-22 11:25 | Ultrasound Report ---
ABDOMINAL ULTRASOUND, RIGHT UPPER QUADRANT HISTORY: Generalized abdominal pain.. COMPARISON: Abdomen and pelvis CT 11/20/2020. FINDINGS: Pancreas: The pancreatic tail is obscured by overlying bowel gas. The remaining portions of the pancr eas are within normal limits. Liver: Mild central hepatic bile duct dilatation. Gallbladder: The gallbladder is surgically absent. CBD: 12 mm in diameter. Right kidney: No hydronephrosis. IMPRESSION: 1. Prior cholecystectomy. 2. Mild intra and extra hepatic bile duct dilatation is again noted. This is nonspecific but could be due to the patient's postcholecystectomy state. Recommend correlation with LFTs to exclude the less likely possibility of an obstructive process. ACT 112: Negative or not required by law. Electronically signed by: Shaun Abreu M.D. 11/22/2020 11:23 AM
--- NOTE | 2020-11-22 11:46 | Gastroenterology Progress Note ---
Date of Service November 22, 2020 Assessment & Plan (1) Abdominal pain: (2) Abnormal CT of the abdomen: This is a 75-year-old female admitted with nausea vomiting abdominal pain and diarrhea x2 weeks of unclear etiology. GI asked to evaluate for pancolitis seen on CT, dark s tools. Patient tells me she has chronic intermittent dark/black stools that are not unusual for her, in the setting of oral iron use. Her chronic anemia is at baseline without elevated BUN, making acute upper GI bleeding unlikely. She just had a colonoscopy last week notable for several polyps and diverticulosis, internal hemorrhoids but otherwise unremarkable; and symptoms began prior to this. C diff neg, GI path panel pending. Pt had some acute abd pain last night; KUB neg for acute findings and labs remain stable; she had brown stool this AM. US ABD with chronic mild IHDD/CBD dilation. Abd is soft. She's not having vomiting; diarrhea seems to have slowed. She was recently switched to Zoloft and perhaps; this may be contributing to her symptoms. - Await GI pathogen panel. Can continue empiric antibiotics for colitis - IV hydration - If stool neg for infection, can try daily fiber to help thicken stools - Consider switching off Zoloft - Today, clear liquid diet as tolerated Continue IV PPI twice daily Monitor and document GI output Trend H&H - Antiemetics as needed Analgesia as needed - Unclear if endoscopy (such as EGD) would be beneficial at this time; given lack of overt GIB and dropping HGB/elevated BUN Admission and Anticipated Discharge Date Admission Date: November 20, 2020 Supervising Physician Co-Signing Physician Notes I saw and evaluated the patient. We were consulted to would with regard to nausea and irregular bowel habits. Of note the patient was recently started on an SSRI as an outpatient approximately 3 weeks ago. Physical examination Elderly female in no obvious distress asking to eat go home Impression: Patient presents with symptoms suggestive of a medication reaction. At the present time there does not appear to be evidence of a gastrointestinal bleed and would not recommend a repeat upper endoscopy or colonoscopy during this admission with regard to her symptoms I would recommend discontinuation of the Zoloft and follow up with her primary care doctor. Should the patient's symptoms persist endoscopic evaluation could certainly be considered with her regular GI provider as an outpatient Subjective Patient seen and examined, chart reviewed. Last evening patient had some upper abdominal discomfort and dark stool. Patient was started on PPI drip and made n.p.o., KUB with no acute changes. This morning, patient reports no upper ab dominal pain, but does have intermittent lower abdominal discomfort, she states this is not entirely new for her. Diarrhea seems to be slowing down, had a loose BM this morning that was brown. Labs this a.m. with stable hemoglobin, no elevated BUN. Total bilirubin 1.3, she has had this intermittently elevated in the past along with some chronic post-cholecystectomy IHDD and dilated CBD which was noted on US ABD this AM. Denies melena, hematochezia, hematemesis, n/v, CP, SOB, fever. On review of her outpatient records, she was recently switched from Prozac to Zoloft for some depression. Review of Systems Review of Systems: All systems reviewed & are unremarkable except as noted in HPI & below Physical Exam Constitutional: WD/WN, vitals as above Eyes: + anicteric sclerae Respiratory: normal respiratory effort, lungs clear to auscultation Cardiovascular: RRR, no murmur, no edema Gastrointestinal (Abdomen): Inspection/Auscultation: abdomen normal to inspection and normal bowel sounds; abdomen not distended Percussion/Palpation: abdomen soft; no guarding Skin: no rashes, warm and dry Psychiatric: A+Ox3, euthymic affect Results & Data ([facility]) Vital Signs (Past 12 Hours) Vital Signs Temp Pulse Resp BP Pulse Ox 11/22/20 07:18 36.8 C 93 H 18 164/111 H 100 11/22/20 03:37 36.6 C 49 L 16 132/62 95 Laboratory Results 11/22/20 11/22/20 11/22/20 Range/Units 06:05 05:30 05:30 WBC (4.8-10.8) K/uL RBC (4.2-5.4) M/uL Hgb (12.0-16.0) g/dL Hct (37-47) % MCV (80-100) fL MCH (25-34) pg MCHC (32-36) g/dL RDW Std Deviation (36.4-46.3) fL RDW Coeff of Farheen (11.5-14.5) % Plt Count (130-400) K/uL MPV (7.4-10.4) fL PT 13.4 H (9.0-12.0) Seconds INR 1.4 H (0.9-1.1) Sodium 141 Potassium 3.6 Chloride 110 H Carbon Dioxide 25 Anion Gap 6.0 BUN 7 Creatinine 0.67 Est Cr Clr Drug Dosing 86.5 Est GFR ( Amer) 99.0 Est GFR (Non-Af Amer) 85.4 BUN/Creatinine Ratio 9.8 L Glucose 103 H POC Glucose 101 H (70-99) mg/dl Lactate (0.4-2.0) mmol/L Calcium 8.6 Magnesium 1.7 L (1.8-2.4) mg/dl Total Bilirubin 1.3 H AST 16 ALT 11 L Alkaline Phosphatase 86 Total Protein 6.4 Albumin 2.9 L Globulin 3.5 Albumin/Globulin Ratio 0.8 L 11/22/20 11/22/20 11/21/20 Range/Units 05:30 00:15 20:12 WBC 6.29 (4.8-10.8) K/uL RBC 3.35 L (4.2-5.4) M/uL Hgb 10.1 L (12.0-16.0) g/dL Hct 32.3 L (37-47) % MCV 96.4 (80-100) fL MCH 30.1 (25-34) pg MCHC 31.3 L (32-36) g/dL RDW Std Deviation 47.5 H (36.4-46.3) fL RDW Coeff of Farheen 13.5 (11.5-14.5) % Plt Count 157 (130-400) K/uL MPV 8.8 (7.4-10.4) fL PT (9.0-12.0) Seconds INR (0.9-1.1) Sodium Potassium Chloride Carbon Dioxide Anion Gap BUN Creatinine Est Cr Clr Drug Dosing Est GFR ( Amer) Est GFR (Non-Af Amer) BUN/Creatinine Ratio Glucose POC Glucose 105 H 99 (70-99) mg/dl Lactate (0.4-2.0) mmol/L Calcium Magnesium (1.8-2.4) mg/dl Total Bilirubin AST ALT Alkaline Phosphatase Total Protein Albumin Globulin Albumin/Globulin Ratio 11/21/20 11/21/20 11/21/20 Range/Units 18:49 17:40 17:40 WBC 6.95 (4.8-10.8) K/uL RBC 3.47 L (4.2-5.4) M/uL Hgb 10.7 L (12.0-16.0) g/dL Hct 33.5 L (37-47) % MCV 96.5 (80-100) fL MCH 30.8 (25-34) pg MCHC 31.9 L (32-36) g/dL RDW Std Deviation 48.0 H (36.4-46.3) fL RDW Coeff of Farheen 13.7 (11.5-14.5) % Plt Count 160 (130-400) K/uL MPV 10.0 (7.4-10.4) fL PT (9.0-12.0) Seconds INR (0.9-1.1) Sodium 140 Cancelled Potassium 3.8 D Cancelled Chloride 110 H Cancelled Carbon Dioxide 24 Cancelled Anion Gap 6.0 Cancelled BUN 8 Cancelled Creatinine 0.75 Cancelled Est Cr Clr Drug Dosing 75.7 Cancelled Est GFR ( Amer) 89.7 Cancelled Est GFR (Non-Af Amer) 77.4 Cancelled BUN/Creatinine Ratio 11.0 Cancelled Glucose 110 H Cancelled POC Glucose (70-99) mg/dl Lactate (0.4-2.0) mmol/L Calcium 8.8 Cancelled Magnesium 1.6 L (1.8-2.4) mg/dl Total Bilirubin 1.4 H D Cancelled AST 19 Cancelled ALT 11 L Cancelled Alkaline Phosphatase 90 Cancelled Total Protein 6.7 Cancelled Albumin 3.0 L Cancelled Globulin 3.7 Cancelled Albumin/Globulin Ratio 0.8 L Cancelled 11/21/20 11/21/20 Range/Units 17:40 16:21 WBC (4.8-10.8) K/uL RBC (4.2-5.4) M/uL Hgb (12.0-16.0) g/dL Hct (37-47) % MCV (80-100) fL MCH (25-34) pg MCHC (32-36) g/dL RDW Std Deviation (36.4-46.3) fL RDW Coeff of Farheen (11.5-14.5) % Plt Count (130-400) K/uL MPV (7.4-10.4) fL PT (9.0-12.0) Seconds INR (0.9-1.1) Sodium Potassium Chloride Carbon Dioxide Anion Gap BUN Creatinine Est Cr Clr Drug Dosing Est GFR ( Amer) Est GFR (Non-Af Amer) BUN/Creatinine Ratio Glucose POC Glucose 105 H (70-99) mg/dl Lactate 1.5 (0.4-2.0) mmol/L Calcium Magnesium (1.8-2.4) mg/dl Total Bilirubin AST ALT Alkaline Phosphatase Total Protein Albumin Globulin Albumin/Globulin Ratio Diagnostic Findings US ABD: 1. Prior cholecystectomy. 2. Mild intra and extra hepatic bile duct dilatation is again noted. This is nonspecific but could be due to the patient's postcholecystectomy state. Recommend correlation with LFTs to exclude the less likely possibility of an obstructive process. KUB: FINDINGS: Incidental note is made of postoperative findings within the lumbosacral spine as well as postprocedural findings from vertebroplasty. Pelvic calcifications reflect phleboliths. Calcification adjacent to the greater trochanter of the left femur is chronic. The bowel gas pattern is normal. There are cholecystectomy clips. Elevation of the right hemidiaphragm is unchanged. IMPRESSION: No evidence for a bowel obstruction. (1) Abdominal pain Abdominal location: epigastric Qualified Code(s): R10.13 - Epigastric pain
[2020-11-22] MEDS ORDERED: Nursing to Pharmacy Communication SCH (14:00)
--- NOTE | 2020-11-22 15:45 | Electrocardiogram Report ---
Test Reason : Blood Pressure : / mmHG Vent. Rate : 093 BPM Atrial Rate : 068 BPM P-R Int : 000 ms QRS Dur : 098 ms QT Int : 394 ms P-R-T Axes : 000 065 067 degrees QTc Int : 489 ms Sinus rhythm with frequent , and consecutive Premature atrial complexes Abnormal ECG When compared with ECG of 21-NOV-2020 05:14, No significant change Confirmed by Isiah Shepherd ([id number]) on 11/22/2020 3:44:42 PM Referred By: REFERRED SELF Confirmed By:Isiah Shepherd
[2020-11-22] MEDS ORDERED: DICYCLOMINE HCL 10 MG CAP PO PRN (15:56)
[2020-11-22] MEDS ORDERED: Heparin IV Adult Wt-Based Low-Dose *NO* Bolus Protocol IV SCH (15:58)
--- NOTE | 2020-11-22 16:01 | Communication Note ---
Date of Service: November 22, 2020 Hemoglobin has remained stable appreciate input from GI no plan for EGD , upper gi bleed less likely started on Clears , DC IV PPI will advance diet to full liquid as tolerated hx of AFib , Coumadin was kept on hold/given Ambreen for concern for GI bleed started on Low dose IV heparin bridge plan to start on Coumadin tomorrow if tolerating diet /stable H&H Litzy Ayala MD
--- NOTE | 2020-11-22 16:26 | Hospitalist Progress Note ---
Date of Service November 22, 2020 Assessment & Plan (1) Nausea vomiting and diarrhea: Symptom has completely resolved, No complaint of abdominal pain, no nausea or vomiting, had 2 episode of loose bowel movements , recent colonoscopy showed no evidence of inflammatory bowel disease. Possible infectious etiology, viral gastroenteritis? GI symptoms has improved markedly, stool C. difficile negative IV Flagyl discontinued, Tolerating clears well, diet advanced to full liquid, (2) Pancolitis: (3) Black tarry stools: No evidence of GI bleed This is a 75-year-old female who has significant past medical history of CAD, Chronic HFpEF, hx of TIA, HTN, HLD, PAF anticoagulated on Coumadin, ISATU not on cpap, T2DM, anemia, GERD, obesity, depression who presents to ED secondary to nausea, vomiting, diarrhea and abdominal pain x [address] abdomen pelvis shows pancolitis, Hemoglobin has been stable Watery bowel movement yesterday, reports of chronic dark stool patient takes iron supplement GI consulted, appreciate input Patient had colonoscopy 7 days ago, which showed polyps diverticulosis, no evidence of bleeding. Culture/stool C. difficile negative, will DC antibiotic No indication for EGD, order to advance diet patient has been tolerating well (4) OMA (acute kidney injury): Resolved after IV fluids Hypokalemia/low mag: Possible secondary to GI loss, ongoing diarrhea. Corrected (5) PAF (paroxysmal atrial fibrillation): [id number] follows [employer] [facility] Metoprolol for rate control Coumadin resumed as there is no evidence of GI bleed or anemia: IV heparin weight-based protocol (6) CAD (coronary artery disease): CAD, PVD, Chronic HFpEF, Stenosis of abdominal Aorta Stable no complaint chest pain shortness of breath Cardiac meds resumed (7) Diabetes mellitus, type II: last a1c 5.5 on 07/05/20 hold metformin Hemoglobin A1c 6.1 shows adequate control Insulin sliding scale per protocol (8) Anemia: H&H has been stable no evidence of GI bleed (9) HTN (hypertension): Resume outpatient meds (10) DVT prophylaxis: Coumadin and IV heparin weight-based protocol PCP: Clare FULL CODE Disposition: Possible discharge home in next 1 to 2 days, plan of care updated to patient and patient present at bedside Admission and Anticipated Discharge Date Admission Date: November 20, 2020 Subjective Patient feels comfortable no further episode of abdominal pain no nausea Tolerating clear liquid diet well Reported that he still having loose bowel movement No blood in stool Stable vitals, no fever or chills no shortness of breath no dyspnea on exertion Review of Systems Review of Systems: All systems reviewed & are unremarkable except as noted in Subjective Physical Exam Constitutional: WD/WN, vitals as above Eyes: PERRL, conjunctivae normal, anicteric sclerae ENMT: external ear and nose normal, oropharynx normal Neck: trachea midline, no thyromegaly Respiratory: normal respiratory effort, lungs clear to auscultation Cardiovascular: RRR, no murmur, no edema Gastrointestinal (Abdomen): Inspection/Auscultation: normal bowel sounds Percussion/Palpation: abdomen soft; abdomen nontender Skin: no rashes, warm and dry Neurologic: PERRL, EOMI, accommodation nl, no face palsy, no dysarthria Psychiatric: A+Ox3, euthymic affect Results & Data Results & Data ([facility]) Vital Signs (Past 12 Hours) Vital Signs Temp Pulse Pulse Resp BP Pulse Ox 11/22/20 15:10 36.7 C 109 H 20 153/75 H 93 11/22/20 12:03 36.5 C 98 H 18 153/95 H 97 11/22/20 11:52 89 11/22/20 07:18 36.8 C 93 H 18 164/111 H 100
[2020-11-22] MEDS: ADVANCED PROBIOTIC 1250 MG CAPSULE PO SCH (16:49)
[2020-11-22] MEDS: FERROUS SULFATE 325 MG TAB PO SCH (16:55)
[2020-11-22] MEDS: ACETAMINOPHEN 325 MG TAB PO PRN (16:59)
[2020-11-22] MEDS: cefTRIAXone SODIUM 2,000 MG in DEXTROSE 5% 50 ML IV SCH (17:29)
[2020-11-22] MEDS: HEPARIN SODIUM/DEXTROSE 25,000 UNITS/500 ML BAG IV SCH (17:52)
[2020-11-22 17:56] LABS: INR 1.2 (0.9-1.1); Partial Thromboplastin Ratio 1.1; Partial Thromboplastin Time 28.2 Seconds (21.0-31.0); Prothrombin Time 11.9 Seconds (9.0-12.0)
[2020-11-22 18:00] LABS: Basophils # (auto) 0.02 K/uL (0-0.2); Basophils % (auto) 0.3 %; Eosinophils # (auto) 0.09 K/uL (0-0.5); Eosinophils % (auto) 1.3 %; Hematocrit (blood only) 33.2 % (37-47); Hemoglobin 10.7 g/dL (12.0-16.0); Immature Granulocytes # (auto) 0.03 K/uL (0.00-0.02); Immature Granulocytes % (auto) 0.4 %; Lymphocytes # (auto) 1.93 K/uL (1.2-3.4); Lymphocytes % (auto) 27.7 %; Mean Corpuscular Hemoglobin 31.9 pg (25-34); Mean Corpuscular Volume 99.1 fL (80-100); Mean Platelet Volume 9.2 fL (7.4-10.4); Monocytes % (auto) 10.1 %; Neutrophils # (auto) 4.19 K/uL (1.4-6.5); Neutrophils % (auto) 60.2 %; Platelet Count 149 K/uL (130-400); RDW Coefficient of Variation 13.6 % (11.5-14.5); RDW Standard Deviation 48.1 fL (36.4-46.3); Red Blood Count 3.35 M/uL (4.2-5.4); White Blood Count 6.96 K/uL (4.8-10.8)
[2020-11-22 18:26] LABS: Mean Corpuscular Hgb Conc 32.2 g/dL (32-36)
[2020-11-22] MEDS ORDERED: WARFARIN SOD 10 MG TAB PO ONE (18:33)
[2020-11-22] MEDS ORDERED: LOPERAMIDE HCL 2 MG CAP PO PRN (18:33)
[2020-11-22] MEDS: MAGNESIUM OXIDE 400 MG TAB PO SCH (22:00)
[2020-11-22] MEDS: hydrALAZINE HCL 25 MG TAB PO SCH (22:01)
[2020-11-22] MEDS: ATORVASTATIN 40 MG TAB PO SCH (22:01)
[2020-11-22] MEDS: GABAPENTIN 300 MG CAP PO SCH (22:01)
[2020-11-22] MEDS: TERAZOSIN HCL 1 MG CAP PO SCH (22:02)
[2020-11-22] MEDS: METOPROLOL TARTRATE 100 MG TAB PO SCH (22:02)
[2020-11-23 00:53] LABS: Partial Thromboplastin Ratio 1.7; Partial Thromboplastin Time 44.4 Seconds (21.0-31.0)
[2020-11-23] MEDS: LEVOTHYROXINE SODIUM 25 MCG TABLET PO SCH (06:00)
[2020-11-23 06:19] LABS: Hematocrit (blood only) 31.1 % (37-47)
[2020-11-23 06:51] LABS: BUN Creatinine Ratio 9.8 (10-20); Calcium 9.2 mg/dl (8.5-10.1); Est GFR (Non-African American) 87.1 ml/min; Magnesium 1.5 mg/dl (1.8-2.4); Potassium 3.5 mmol/L (3.5-5.1)
[2020-11-23] MEDS: ACETAMINOPHEN 325 MG TAB PO PRN ×2 (07:36→17:19)
[2020-11-23] MEDS: FERROUS SULFATE 325 MG TAB PO SCH ×2 (08:00→17:17)
[2020-11-23] MEDS: ASCORBIC ACID 500 MG TAB PO SCH (08:01)
[2020-11-23] MEDS: ADVANCED PROBIOTIC 1250 MG CAPSULE PO SCH (08:01)
[2020-11-23] MEDS: GABAPENTIN 300 MG CAP PO SCH ×3 (08:01→21:33)
[2020-11-23] MEDS: hydrALAZINE HCL 25 MG TAB PO SCH ×3 (08:02→21:32)
[2020-11-23] MEDS: POTASSIUM CHLORIDE CRTAB 20 MEQ TABCR PO SCH (08:02)
[2020-11-23] MEDS: METOPROLOL TARTRATE 100 MG TAB PO SCH ×2 (08:02→21:33)
[2020-11-23] MEDS: SERTRALINE HCL 50 MG TABLET PO SCH (08:02)
[2020-11-23] MEDS: MAGNESIUM OXIDE 400 MG TAB PO SCH ×3 (08:02→21:34)
[2020-11-23] MEDS: PANTOprazole 40 MG TAB PO SCH (08:02)
[2020-11-23] MEDS: SPIRONOLACTONE 25 MG TAB PO SCH (08:04)
[2020-11-23] MEDS: INSULIN ASPART 100 UNITS/ML 3 ML PEN SC SCH ×4 (08:58→21:20)
[2020-11-23 10:34] LABS: Partial Thromboplastin Ratio 1.9
[2020-11-23 14:54] LABS: INR 1.2 (0.9-1.1); Prothrombin Time 11.9 Seconds (9.0-12.0)
[2020-11-23] MEDS: MAGNESIUM SULFATE / D5W 1 GM/100 ML BAG IV SCH ×2 (15:17→17:10)
[2020-11-23] MEDS ORDERED: WARFARIN SOD 10 MG TAB PO SCH (16:00)
--- NOTE | 2020-11-23 17:03 | Hospitalist Progress Note ---
Date of Service November 23, 2020 Assessment & Plan (1) Nausea vomiting and diarrhea: Symptom has completely resolved, No complaint of abdominal pain, no nausea or vomiting, had 2 episode of loose bowel movements , recent colonoscopy showed no evidence of inflammatory bowel disease. Possible infectious etiology, viral gastroenteritis? GI symptoms has improved markedly, stool C. difficile negative tolerating solid diet no evidence of GI bleed (2) Pancolitis: (3) Black tarry stools: No evidence of GI bleed H&H has been stable coumadin resumed This is a 75-year-old female who has significant past medical history of CAD, Chronic HFpEF, hx of TIA, HTN, HLD, PAF anticoagulated on Coumadin, ISATU not on cpap, T2DM, anemia, GERD, obesity, depression who presents to ED secondary to nausea, vomiting, diarrhea and abdominal pain x [address] abdomen pelvis shows pancolitis, GI consulted, appreciate input Patient had colonoscopy 7 days ago, which showed polyps diverticulosis, no evidence of bleeding. Culture/stool C. difficile negative, will DC antibiotic No indication for EGD, order to advance diet patient has been tolerating well (4) OMA (acute kidney injury): Resolved after IV fluids Low Mg : ordered replacement (5) PAF (paroxysmal atrial fibrillation): [id number] follows [employer] [facility] Metoprolol for rate control Coumadin resumed as there is no evidence of GI bleed or anemia: IV heparin weight-based protocol (6) CAD (coronary artery disease): CAD, PVD, Chronic HFpEF, Stenosis of abdominal Aorta Stable no complaint chest pain shortness of breath Cardiac meds resumed (7) Diabetes mellitus, type II: last a1c 5.5 on 07/05/20 hold metformin Hemoglobin A1c 6.1 shows adequate control Insulin sliding scale per protocol (8) Anemia: H&H has been stable no evidence of GI bleed (9) HTN (hypertension): Resume outpatient meds (10) DVT prophylaxis: Coumadin and IV heparin weight-based protocol PCP: Clare FULL CODE Disposition: Possible discharge home tomorrow , plan of care updated to patient and patient present at bedside Admission and Anticipated Discharge Date Admission Date: November 20, 2020 Subjective Patient feels comfortable no further episode of abdominal pain no nausea tolerating solid had one BM today Review of Systems Review of Systems: All systems reviewed & are unremarkable except as noted in Subjective Physical Exam Constitutional: WD/WN, vitals as above Eyes: PERRL, conjunctivae normal, anicteric sclerae + anicteric sclerae ENMT: external ear and nose normal, oropharynx normal Neck: trachea midline, no thyromegaly Respiratory: normal respiratory effort, lungs clear to auscultation Cardiovascular: RRR, no murmur, no edema Gastrointestinal (Abdomen): Inspection/Auscultation: normal bowel sounds Percussion/Palpation: abdomen soft; abdomen nontender Skin: no rashes, warm and dry Neurologic: PERRL, EOMI, accommodation nl, no face palsy, no dysarthria Psychiatric: A+Ox3, euthymic affect Results & Data Results & Data ([facility]) Vital Signs (Past 12 Hours) Vital Signs Temp Pulse Resp BP Pulse Ox 11/23/20 15:24 36.4 C L 132 H 18 132/67 91 11/23/20 14:45 36.4 C L 58 L 16 144/69 H 97 11/23/20 14:32 153/68 H 11/23/20 07:47 36.6 C 61 16 177/66 H 95
[2020-11-23] MEDS: HEPARIN SODIUM/DEXTROSE 25,000 UNITS/500 ML BAG IV SCH (19:08)
[2020-11-23] MEDS: TERAZOSIN HCL 1 MG CAP PO SCH (21:33)
[2020-11-23] MEDS: ATORVASTATIN 40 MG TAB PO SCH (21:34)
[2020-11-24] MEDS: LEVOTHYROXINE SODIUM 25 MCG TABLET PO SCH (06:31)
[2020-11-24 06:42] LABS: INR 1.4 (0.9-1.1); Partial Thromboplastin Ratio 2.1; Prothrombin Time 13.8 Seconds (9.0-12.0)
[2020-11-24 06:44] LABS: Partial Thromboplastin Time 55.2 Seconds (21.0-31.0)
[2020-11-24] MEDS: INSULIN ASPART 100 UNITS/ML 3 ML PEN SC SCH ×2 (08:41→13:01)
[2020-11-24] MEDS: MAGNESIUM OXIDE 400 MG TAB PO SCH ×2 (08:43→13:06)
[2020-11-24] MEDS: ADVANCED PROBIOTIC 1250 MG CAPSULE PO SCH (08:43)
[2020-11-24] MEDS: SERTRALINE HCL 50 MG TABLET PO SCH (08:43)
[2020-11-24] MEDS: GABAPENTIN 300 MG CAP PO SCH ×2 (08:43→13:06)
[2020-11-24] MEDS: ASCORBIC ACID 500 MG TAB PO SCH (08:43)
[2020-11-24] MEDS: hydrALAZINE HCL 25 MG TAB PO SCH ×2 (08:43→13:06)
[2020-11-24] MEDS: POTASSIUM CHLORIDE CRTAB 20 MEQ TABCR PO SCH (08:43)
[2020-11-24] MEDS: FERROUS SULFATE 325 MG TAB PO SCH (08:43)
[2020-11-24] MEDS: PANTOprazole 40 MG TAB PO SCH (08:43)
[2020-11-24] MEDS: METOPROLOL TARTRATE 100 MG TAB PO SCH (08:43)
[2020-11-24] MEDS: SPIRONOLACTONE 25 MG TAB PO SCH (08:43)
--- NOTE | 2020-11-24 13:01 | Hospitalist Progress Note ---
Date of Service November 24, 2020 Assessment & Plan (1) Nausea vomiting and diarrhea: Symptom has completely resolved, No complaint of abdominal pain, no nausea or vomiting, had 2 episode of loose bowel movements , recent colonoscopy showed no evidence of inflammatory bowel disease. Possible infectious etiology, viral gastroenteritis? GI symptoms has improved markedly, stool C. difficile negative tolerating solid diet no evidence of GI bleed /H&H been stable, stool Hemoccult negative (2) Pancolitis: (3) Black tarry stools: No evidence of GI bleed Hemoccult negative H&H has been stable coumadin resumed This is a 75-year-old female who has significant past medical history of CAD, Chronic HFpEF, hx of TIA, HTN, HLD, PAF anticoagulated on Coumadin, ISATU not on cpap, T2DM, anemia, GERD, obesity, depression who presents to ED secondary to nausea, vomiting, diarrhea and abdominal pain x [address] abdomen pelvis shows pancolitis, supple viral gastroenteritis, symptom resolved with supportive care only GI consulted, appreciate input Patient had colonoscopy 7 days ago, which showed polyps diverticulosis, no evidence of bleeding. Culture/stool C. difficile negative, will DC antibiotic No indication for EGD, order to advance diet patient has been tolerating well (4) OMA (acute kidney injury): Resolved after IV fluids (5) PAF (paroxysmal atrial fibrillation): [id number] 9 follows [employer] Metoprolol for rate control Coumadin resumed as there is no evidence of GI bleed or anemia: Patient received IV heparin weight-based protocol during hospital stay, will be discharged with higher dose of p.o. Coumadin, repeat PT/INR on Wednesday. (6) CAD (coronary artery disease): CAD, PVD, Chronic HFpEF, Stenosis of abdominal Aorta Stable no complaint chest pain shortness of breath Cardiac meds resumed (7) Diabetes mellitus, type II: last a1c 5.5 on 07/05/20 hold metformin Hemoglobin A1c 6.1 shows adequate control Insulin sliding scale per protocol (8) Anemia: H&H has been stable no evidence of GI bleed (9) HTN (hypertension): Resume outpatient meds (10) DVT prophylaxis: Coumadin and IV heparin weight-based protocol PCP: Clare FULL CODE Disposition: Stable to be discharged home today Admission and Anticipated Discharge Date Admission Date: November 20, 2020 Subjective Patient wants to go home, no abdominal pain no nausea Has been tolerating solid food, Had only one episode of bowel movement, Hemoccult negative, vitals been stable Review of Systems Review of Systems: All systems reviewed & are unremarkable except as noted in Subjective Physical Exam Constitutional: WD/WN, vitals as above + ill appearing Eyes: PERRL, conjunctivae normal, anicteric sclerae + anicteric sclerae ENMT: external ear and nose normal, oropharynx normal Nose: + dry nasal mucous membranes Neck: trachea midline, no thyromegaly Respiratory: normal respiratory effort, lungs clear to auscultation Cardiovascular: RRR, no murmur, no edema Gastrointestinal (Abdomen): Inspection/Auscultation: normal bowel sounds Percussion/Palpation: abdomen soft; abdomen nontender Skin: no rashes, warm and dry Neurologic: PERRL, EOMI, accommodation nl, no face palsy, no dysarthria Psychiatric: A+Ox3, euthymic affect Results & Data Results & Data ([facility]) Vital Signs (Past 12 Hours) Vital Signs Temp Pulse Resp BP Pulse Ox 11/24/20 08:30 79 182/73 H 11/24/20 07:51 37.0 C 78 16 197/83 H 94
--- NOTE | 2020-11-24 17:05 | Discharge Summary ---
Date of Service November 24, 2020 Admission HPI Per Admitting Provider This is a 75-year-old female who has significant past medical history of CAD, Chronic HFpEF, hx of TIA, HTN, HLD, PAF anticoagulated on Coumadin, ISATU not on cpap, T2DM, anemia, GERD, obesity, depression who presents to ED secondary to nausea, vomiting, diarrhea and abdominal pain x 7 days. She complains of epigastric abdominal pain, occasionally sharp and occasionally dull, poor appetite & mostly doing liquids due to pain. Pain radiates to L side of abdomen. Pain associated with nausea and vomiting. Pain not associated with eating or bowel habits. Initially there was no blood in stool but + FOBT today. Her stool is dark black today and c/o black stool x 1 week. She does take iron but feels more black than usual. She has chronic lbp due to surgery in the past. She denies NSAID use. She had a colonoscopy on 11/14 which revealed polyps which were benign. She denies hematemesis, f/c/s, chest pain, sob, URI sx, cough, dysuria, increased urg/freq with urination and dsyuria. In ED pt remained hemodynamically stable. Lab work shows a anemia which is baseline for patient. She has have elevated esr/crp at [address] abdomen pelvis concerning for pancolitis. She denies recent travel or sick contacts. She admits to taking her medications this morning and able to keep them down. Principal Diagnosis Nausea vomiting/diarrhea/abdominal pain: Resolved Possible viral gastroenteritis Acute renal failure on CKD stage III: Resolved History of paroxysmal A. fib Discharge Exam Constitutional WD/WN, vitals as above + ill appearing Eyes PERRL, conjunctivae normal, anicteric sclerae + anicteric sclerae ENMT external ear and nose normal, oropharynx normal Nose: + dry nasal mucous membranes Neck trachea midline, no thyromegaly Respiratory normal respiratory effort, lungs clear to auscultation Cardiovascular RRR, no murmur, no edema Gastrointestinal (Abdomen) Inspection/Auscultation: normal bowel sounds Percussion/Palpation: abdomen soft; abdomen nontender Skin no rashes, warm and dry Neurologic PERRL, EOMI, accommodation nl, no face palsy, no dysarthria Psychiatric A+Ox3, euthymic affect Discharge Data Allergies Allergy/AdvReac Type Severity Reaction Status Date / Time nadolol AdvReac Unknown GI UPSET Verified 11/20/20 13:16 nitroglycerin AdvReac Unknown HEADACHE Verified 11/20/20 13:16 NSAIDS (Non-Steroidal AdvReac Unknown GI UPSET Verified 11/20/20 13:16 Anti-Inflamma Consultations 11/20/20 14:11 ED Decision to Admit Stat 11/20/20 14:26 Consult Gastroenterology Routine Ordered Studies 11/20/20 12:20 CT abd pelvis IV con only Stat 11/22/20 11:00 US abdomen limited Urgent Hospital Course (1) Nausea vomiting and diarrhea: Symptom has completely resolved, No complaint of abdominal pain, no nausea or vomiting, had 2 episode of loose bowel movements , recent colonoscopy showed no evidence of inflammatory bowel disease. Possible infectious etiology, viral gastroenteritis? GI symptoms has improved markedly, stool C. difficile negative tolerating solid diet no evidence of GI bleed /H&H been stable, stool Hemoccult negative (2) Pancolitis: (3) Black tarry stools: No evidence of GI bleed Hemoccult negative H&H has been stable coumadin resumed This is a 75-year-old female who has significant past medical history of CAD, Chronic HFpEF, hx of TIA, HTN, HLD, PAF anticoagulated on Coumadin, ISATU not on cpap, T2DM, anemia, GERD, obesity, depression who presents to ED secondary to nausea, vomiting, diarrhea and abdominal pain x [address] abdomen pelvis shows pancolitis, supple viral gastroenteritis, symptom resolved with supportive care only GI consulted, appreciate input Patient had colonoscopy 7 days ago, which showed polyps diverticulosis, no evidence of bleeding. Culture/stool C. difficile negative, will DC antibiotic No indication for EGD, order to advance diet patient has been tolerating well stable to be discharged home today (4) OMA (acute kidney injury): Resolved after IV fluids (5) PAF (paroxysmal atrial fibrillation): [id number] follows [employer] Metoprolol for rate control Coumadin resumed as there is no evidence of GI bleed or anemia: Patient received IV heparin weight-based protocol during hospital stay, will be discharged with higher dose of p.o. Coumadin, repeat PT/INR on Wednesday. (6) CAD (coronary artery disease): CAD, PVD, Chronic HFpEF, Stenosis of abdominal Aorta Stable no complaint chest pain shortness of breath Cardiac meds resumed (7) Diabetes mellitus, type II: last a1c 5.5 on 07/05/20 hold metformin Hemoglobin A1c 6.1 shows adequate control Insulin sliding scale per protocol (8) Anemia: H&H has been stable no evidence of GI bleed (9) HTN (hypertension): Resume outpatient meds (10) DVT prophylaxis: Coumadin and IV heparin weight-based protocol PCP: Clare FULL CODE Disposition: Stable to be discharged home today Total Time Total Time Spent Total Time Spent (In Minutes): 35 mins Total Time Includes: Examination of the Patient, Discharge Planning and Medication Reconciliation Discharge Plan Discharge Items Patient Disposition: Home - Self-Care Reason For Visit: PANCOLITIS, OMA, BLACK STOOL Discharge Diagnosis: Nausea vomiting/diarrhea/abdominal pain: Resolved Possible viral gastroenteritis Acute renal failure on CKD stage III: Resolved History of paroxysmal A. fib Condition on Discharge: Good Activity: Resume your previous activity Non-emergency contact: Primary Care Provider Call non-emergency contact if: you have any medication questions Follow-up/Referrals: Derrek Sparks MD [Primary Care Provider] - Diet: Carb Consistent or DM2 and Heart Healthy Addtl Attending Provider Instructions: Please take all medications as instructed on discharge list below. It is recommended that you follow-up with your primary care physician within 1-2 weeks of hospital discharge to ensure you are still doing well. Please call if you have any questions or problems. You can reach a [facility] hospitalist on duty at [facility] 24 hours a day by calling [phone] You were discharged on a higher dose of Coumadin 10 mg daily, as your INR is low. Lab work: INR check on Wednesday, November 26, 2020 Your Coumadin dose will be adjusted per anticoagulation clinic depending on INR level. Addtl Deputy Head Provider Instructions: Do not take group of medications belonging to NSAIDs group List Of these medications includes but not limited to: Diclofenac Ibuprofen, Motrin, Advil Toradol,ketorolac Naproxen, Aleve, Naprosyn You can take Tylenol as needed for pain or fever When buying [id number] pain medications please consult with pharmacy if you are not sure regarding ingredients, as a lot of the pain medications have combination of NSAIDs and Tylenol. Pending Studies at Discharge: No Stand-Alone Forms: My [facility], Smoking Cessation Medications and DC Order Prescriptions: New warfarin 10 mg Tablet 10 mg PO DAILY Qty: 10 RF: 0 dicyclomine 10 mg Capsule 10 mg PO BID PRN (Reason: abdominal pain) Qty: 60 RF: 0 Continued spironolactone 25 mg tablet 25 mg PO DAILY RF: 0 pantoprazole [Protonix] 40 mg tablet,delayed release (DR/EC) 40 mg PO DAILY RF: 0 furosemide [Lasix] 40 mg tablet 40 mg PO DAILY RF: 0 atorvastatin 40 mg Tablet 40 mg PO HS RF: 0 aspirin [Aspirin Low Dose] 81 mg Tablet,Delayed Release (Dr/Ec) 81 mg PO QAM RF: 0 terazosin 2 mg Capsule 2 mg PO HS RF: 0 gabapentin 300 mg Capsule 300 mg PO TID RF: 0 hydralazine 25 mg tablet 25 mg PO TID RF: 0 bisacodyl [Dulcolax (bisacodyl)] 10 mg Suppository 10 mg ID DAILY PRN (Reason: Constipation) RF: 0 Fleet Enema 19-7 gram/118 mL Enema 118 ml ID DAILY PRN (Reason: Constipation) RF: 0 ferrous sulfate 324 mg (65 mg iron) tablet,delayed release (DR/EC) 324 mg PO BID RF: 0 acetaminophen 500 mg Tablet 500 mg PO Q4 Qty: 30 RF: 0 magnesium oxide 400 mg (241.3 mg magnesium) Tablet 400 mg PO TID Qty: 12 RF: 0 sertraline 25 mg tablet 50 mg PO DAILY RF: 0 metoprolol tartrate 100 mg tablet 100 mg PO BID RF: 0 ondansetron HCl 4 mg tablet 4 mg PO Q6 RF: 0 levothyroxine 25 mcg tablet 25 mcg PO DAILY RF: 0 metformin 500 mg tablet extended release 24 hr 500 mg PO BID RF: 0 potassium chloride 20 mEq tablet extended release 20 meq PO DAILY RF: 0 magnesium oxide 400 mg magnesium Tablet 400 mg PO TID RF: 0 ascorbic acid (vitamin C) 500 mg Tablet 500 mg PO DAILY RF: 0 Discontinued warfarin 4 mg tablet 6 mg PO [id number] RF: 0 warfarin 4 mg Tablet 8 mg PO [id number] RF: 0 Discharge Orders: Discharge Order (Routine); Ordered 11/24/20 Ordered By: Litzy Irving/Other Patient Handouts: What to Know When TakingWarfarin, Managing Type 2 Diabetes, A1C Admission Data Admit Date/Time: 11/20/20 14:26 Attending Provider: Litzy Ayala Admit Provider: Sergio Hermosillo Primary Care Provider: Derrek Sparks Other Providers: Litzy Ayala ; Sergio Hermosillo ; Pennie Kilgore Other Interventions: Discharge Summary Assessment (RN) Last Done: 11/24/20 13:36
== END 2020-11-24 15:25 | disposition home or self-care (01) | DRG 392 ==
LOC: ED 11:50 → SUATTDRO 14:26 → 2E 14:26 → 3N 11-22 14:12

== ENCOUNTER 2021-11-20 04:18 | Inpatient (IN) ==
--- NOTE | 2021-11-20 04:27 | Emergency Department Note ---
Impression & Plan [facility] the [facility] ED Provider Note NAME: ABDIAS GRECO AGE: 76 SEX: F ARRIVES VIA: Walk-In INFORMANT: The patient ED PROVIDER(S): Wendy Ruiz DO CHIEF COMPLAINT: Abdominal pain and back pain PLAN: Disposition: Admit to the [facility] service Condition: Stable MEDICAL DECISION MAKING: This is a 76-year-old female patient who developed severe and increasing left- sided abdominal pain and left-sided low back pain. The patient underwent neurostimulator placement [address]. The pain was sudden in onset at [address] scan shows evidence of a postoperative large hematoma with some active extravasation. The patient is currently on Lovenox shots as a bridge from her Coumadin. I discussed the case with Dr. Street and he will evacuate the hematoma. [facility] and [facility] will [facility] the patient until the procedure can be performed. It seems that the patient has pain from the back that radiates around to the left flank. There is no reproducible discomfort with examination of her abdomen. The patient has relief of her discomfort with IV Dilaudid. Her H&H are stable. Triage Nursing notes reviewed and agree with them. Prior medical records reviewed Vital Signs: reviewed and remarkable for no significant abnormalities Differential diagnosis: Ureteral colic; bleeding around surgical site; small bowel obstruction; intra-abdominal bleeding ER treatment provided: IV Zofran IV Dilaudid Diagnostics interpreted by me: Cardiac Monitoring: Normal sinus rhythm at 97 Laboratory studies: See below Imaging studies: See radiology report indicating postoperative hematoma with extravasation HPI: 76/F arrives for evaluation of abdominal pain and back pain. Patient developed back pain and abdominal pain around 8 PM last evening. She tried taking OxyContin and tramadol with no relief of her symptoms. The patient had a neurostimulator placed yesterday afternoon. The patient had very little discomfort post surgery but noted that around 8 PM last evening the pain seemed to become much more severe. ROS: See above HPI for pertinent positives & negatives. A total of 10 systems reviewed and were otherwise negative. PAST MEDICAL HISTORY:See Below PAST SURGICAL HISTORY:See Below FAMILY HISTORY:See Below SOCIAL HISTORY:See Below HOME MEDICATIONS:See list ALLERGIES:See list VITALS:See Below PHYSICAL EXAMINATION: HEENT: Head - normocephalic and atraumatic. Pupils are equal, round, and reactive to light. Extraocular eye muscles are intact, and sclera are anicteric. Nose - moist nasal mucosa without discharge. Mouth - moist buccal mucosa. Oropharynx is nonerythematous and there is no tonsillar exudate or edema noted. Neck: Supple; no cervical lymphadenopathy or nuchal rigidity Hear go brush her teeth but Regular rate an [place] get your out self ready to go rhythm. There is a normal S1 and S2 with no murmurs, clicks, or gallops appreciated. Lungs: Clear to auscultation bilaterally with no wheezes, rales, or rhonchi. Abdomen: Soft, completely nontender, nondistended, with good bowel sounds. There are no palpable pulsatile masses or hepatosplenomegaly. There is no guarding, rigidity, or rebound noted. Extremities: No evidence of cyanosis, clubbing, or edema. There are easily palpable peripheral pulses. Skin: warm and dry with good turgor and no rashes. Back: Neurostimulator in place on the left low back. However, there is significant edema and fullness of the left low back. ED COURSE: Times/Reassessments: 425: The patient was evaluated in room C6. An IV lock was initiated and labs were drawn as above. The patient was given IV Dilaudid and IV Zofran for pain. She went for CT scan of the abdomen/pelvis. I reviewed the results of the CT with the patient and her . She required additional pain medication. I discussed the case with Dr. Street and he recommended admission to medicine so that he could perform an evacuation of the hematoma sometime later this morning. The patient remained hemodynamically stable but was still in pain and received another dose of IV Dilaudid. I discussed the case with the [facility] hospitalist group. Wendy Ruiz DO Past Med/Surg History Medical History Anemia RBC 2.9-3.9 over past year, Hgb 10-13 over past year Aortic stenosis mild per 08/2021 echo CAD (coronary artery disease) 1991 - PTCA/PCI to ramus intermedius complicated by spiral dissection non-obstructive per 2016 cardiac cath Chronic back pain LLE radiculopathy Depression Diabetes mellitus, type II controlled, stable per pt Dyslipidemia Dyspnea on effort occasional, chronic per pt, denies change or worsening GERD (gastroesophageal reflux disease) controlled, stable per pt Hiatal hernia History of breast cancer right breast-right upper extremity restriction History of COVID-19 DX'D 01/2019 AND 05/2019 WH[facility] IN [facility]denies residual problems HTN (hypertension) ongoing management, reports improvement with d/c hydralazine and starting valsartan 160 mg Hypothyroidism IBS (irritable bowel syndrome) Limb alert care status Right upper extremity restriction MRSA infection Myocardial Infarction 1994-F/U JHOANA JIMENEZ/DR GORMAN On anticoagulant therapy Osteoarthritis PAD (peripheral artery disease) severe right brachiocephalic stenosis and moderate to severe abdominal aortic stenosis- under surveillance by cardiovascular-on warfarin PAF (paroxysmal atrial fibrillation) post operative, follows with [facility] cardio, on warfarin Rheumatoid arthritis Sleep apnea Stroke post-op > 10 yrs ago, pt denies residual problems Surgical History H/O repair of right rotator cuff 2013 History of back surgery x3, 2019 History of bilateral knee arthroplasty Left (1995)x2 , right (2005) History of cardiac cath [facility]-2017 NO STENTS History of cholecystectomy 1998 History of colonoscopy History of fracture of nasal bone History of mastectomy RIGHT History of modified radical mastectomy of right breast 2011 History of shoulder replacement R History of total knee replacement left revision Nasal fracture repair S/P insertion of spinal cord stimulator trial placed 11/17/21 at [facility] Status post lumbar surgery Status post renal artery angioplasty 1991 Family History Daughter Family history of reaction to anesthesia SLOW TO WAKE UP Mother Family history of diabetes mellitus Other Diabetes Heart disease Hypertension Social History Smoking Status: Never smoker Second Hand Exposure: No; Hx Alcohol Use: No Hx Substance Use: No Preferred Language: Uzbek Communication Ability: Effective Visual Impairment: No Limitations Hearing Ability: Normal Guide Visitor Required: No Beliefs That Will Affect Care: None marital status: Current Living Situation: Spouse current occupational status: retired Feels Safe at Home: Yes Assistive Devices: Denture - Upper, Denture - Lower and Glasses Allergies Allergies Allergy/AdvReac Type Severity Reaction Status Date / Time nadolol AdvReac Unknown GI UPSET Verified 11/18/21 11:27 nitroglycerin AdvReac Unknown HEADACHE Verified 11/18/21 11:27 NSAIDS (Non-Steroidal AdvReac Unknown GI UPSET Verified 11/18/21 11:27 Anti-Inflamma Home Meds Home Medications Medication Instructions Recorded Confirmed aspirin 81 mg tablet,delayed 81 mg PO QAM 04/02/18 11/20/21 release (Aspirin Low Dose) gabapentin 300 mg capsule 300 mg PO TID 04/02/18 11/20/21 pantoprazole 40 mg tablet,delayed 40 mg PO QAM 04/03/20 11/20/21 release (Protonix) ascorbic acid (vitamin C) 500 mg 500 mg PO QAM 11/20/20 11/20/21 tablet magnesium oxide 400 mg PO QAM 11/20/20 11/20/21 warfarin 4 mg tablet (Jantoven) 4 - 6 mg PO QAM 08/07/21 11/20/21 acetaminophen 500 mg tablet 500 mg PO Q4H PRN 10/02/21 11/20/21 amlodipine 2.5 mg tablet 2.5 mg PO BID 10/02/21 11/20/21 furosemide 20 mg tablet 20 mg PO QAM 10/02/21 11/20/21 levothyroxine 25 mcg tablet 25 mcg PO QAM 10/02/21 11/20/21 atorvastatin 80 mg tablet 80 mg PO HS 11/20/21 11/20/21 ferrous sulfate 325 mg (65 mg 325 mg PO BID 11/20/21 11/20/21 iron) tablet Previous Rx's Medication Instructions Recorded oxycodone 5 mg tablet 5 mg PO Q6H PRN #20 tab 11/17/21 tramadol 50 mg tablet 50 mg PO Q6H PRN #20 tab 11/17/21 clindamycin HCl 300 mg capsule 300 mg PO BID 7 Days #14 cap 11/18/21 Results & Data (ED) Vital Signs Vital Signs - 24 hr 11/20/21 07:00 Pulse Rate 92 H Pulse Rate from SpO2 Sensor 89 Respiratory Rate 16 Blood Pressure 165/75 H Blood Pressure Mean 105 Pulse Oximetry 97 Oxygen Delivery Method Room Air Laboratory Data Result diagrams: 11/21/21 05:19 11/21/21 05:19 Lab Results 05/11/20/21 11/20/21 Range/Units 03:44 04:51 04:51 WBC 11.13 H (4.8-10.8) K/uL RBC 3.36 L (4.2-5.4) M/uL Hgb 10.7 L (12.0-16.0) g/dL POC Hgb (12.0-16.0) g/dl Hct 33.3 L (37-47) % POC Hct (37-47) % MCV 99.1 (80-100) fL MCH 31.8 (25-34) pg MCHC 32.1 (32-36) g/dL RDW Std Deviation 46.4 H (36.4-46.3) fL RDW Coeff of Farheen 12.9 (11.5-14.5) % Plt Count 157 (130-400) K/uL MPV 8.9 (7.4-10.4) fL Immature Gran % (Auto) 0.4 % Neut % (Auto) 81.7 % Lymph % (Auto) 10.4 % Elk % (Auto) 6.2 % Eos % (Auto) 1.1 % Baso % (Auto) 0.2 % Neut # (Auto) 9.10 H (1.4-6.5) K/uL Lymph # (Auto) 1.16 L (1.2-3.4) K/uL Elk # (Auto) 0.69 H (0.11-0.59) K/uL Eos # (Auto) 0.12 (0-0.5) K/uL Baso # (Auto) 0.02 (0-0.2) K/uL Immature Gran # (Auto) 0.04 H (0.00-0.02) K/uL POC Sodium (135-144) mmol/L Sodium 134 L (136-145) mmol/L POC Potassium (3.3-5.0) mmol/L Potassium 4.1 (3.5-5.1) mmol/L POC Chloride (101-112) mmol/L Chloride 99 (98-107) mmol/L Carbon Dioxide 25 (21-32) mmol/L POC Total CO2 (24-31) mmol/L Anion Gap 10 (3-11) POC Anion Gap (16-25) mmol/L POC BUN (7-18) mg/dl BUN 15 (6-23) mg/dl Creatinine 0.70 (0.6-1.2) mg/dl POC Creatinine (0.6-1.3) mg/dl Est Cr Clr Drug Dosing Not Reportable Est GFR ( Amer) 96.9 ml/min Est GFR (Non-Af Amer) 83.6 ml/min BUN/Creatinine Ratio 21.4 H (10-20) Glucose 245 H (70-99(Fasting)) mg/dl POC Glucose (other) (70-99) mg/dl Lactate (0.4-2.0) mmol/L Calcium 9.1 (8.5-10.1) mg/dl POC Ioniz Calcium Blaire (1.12-1.32) mmol/l Total Bilirubin 2.3 H (0.2-1.0) mg/dl AST 19 (13-39) U/L ALT 7 (7-52) U/L Alkaline Phosphatase 83 (34-104) U/L Total Protein 6.3 (6.0-8.3) gm/dl Albumin 3.8 (3.4-5.0) gm/dl Globulin 2.5 (2.5-4.0) gm/dl Albumin/Globulin Ratio 1.5 (0.9-2) Lipase 13 (11-82) U/L Urine Color Yellow Urine Appearance Clear (Clear) Urine pH 6.5 (4.5-7.5) Ur Specific [place] 1.029 (1.000-1.030) Urine Protein 1+ H (Negative) Urine Glucose (UA) Negative (Negative) Urine Ketones Negative (Negative) Urine Blood Negative (Negative) Urine Nitrite Negative (Negative) Urine Bilirubin Negative (Negative) Urine Urobilinogen Negative (Negative) Ur Leukocyte Esterase Negative (Negative) Urine WBC (Auto) 1-5 (0-5) /hpf Urine RBC (Auto) 0-4 (0-4) /hpf U Hyaline Cast (Auto) 1-5 (0-5) /lpf U Epithel Cells (Auto) >30 H (0-5) /lpf Urine Bacteria (Auto) Negative (Negative) SARS-CoV-2, RNA, NAAT (NEGATIVE) 11/20/21 11/20/21 11/20/21 Range/Units 04:56 05:14 07:21 WBC (4.8-10.8) K/uL RBC (4.2-5.4) M/uL Hgb (12.0-16.0) g/dL POC Hgb 10.9 L (12.0-16.0) g/dl Hct (37-47) % POC Hct 32 L (37-47) % MCV (80-100) fL MCH (25-34) pg MCHC (32-36) g/dL RDW Std Deviation (36.4-46.3) fL RDW Coeff of Farheen (11.5-14.5) % Plt Count (130-400) K/uL MPV (7.4-10.4) fL Immature Gran % (Auto) % Neut % (Auto) % Lymph % (Auto) % Elk % (Auto) % Eos % (Auto) % Baso % (Auto) % Neut # (Auto) (1.4-6.5) K/uL Lymph # (Auto) (1.2-3.4) K/uL Elk # (Auto) (0.11-0.59) K/uL Eos # (Auto) (0-0.5) K/uL Baso # (Auto) (0-0.2) K/uL Immature Gran # (Auto) (0.00-0.02) K/uL POC Sodium 135 (135-144) mmol/L Sodium (136-145) mmol/L POC Potassium 3.9 (3.3-5.0) mmol/L Potassium (3.5-5.1) mmol/L POC Chloride 97 L (101-112) mmol/L Chloride (98-107) mmol/L Carbon Dioxide (21-32) mmol/L POC Total CO2 24 (24-31) mmol/L Anion Gap (3-11) POC Anion Gap 18.0 (16-25) mmol/L POC BUN 14 (7-18) mg/dl BUN (6-23) mg/dl Creatinine (0.6-1.2) mg/dl POC Creatinine 0.7 (0.6-1.3) mg/dl Est Cr Clr Drug Dosing Est GFR ( Amer) ml/min Est GFR (Non-Af Amer) ml/min BUN/Creatinine Ratio (10-20) Glucose (70-99(Fasting)) mg/dl POC Glucose (other) 260 H (70-99) mg/dl Lactate 1.5 (0.4-2.0) mmol/L Calcium (8.5-10.1) mg/dl POC Ioniz Calcium Blaire 1.09 L (1.12-1.32) mmol/l Total Bilirubin (0.2-1.0) mg/dl AST (13-39) U/L ALT (7-52) U/L Alkaline Phosphatase (34-104) U/L Total Protein (6.0-8.3) gm/dl Albumin (3.4-5.0) gm/dl Globulin (2.5-4.0) gm/dl Albumin/Globulin Ratio (0.9-2) Lipase (11-82) U/L Urine Color Urine Appearance (Clear) Urine pH (4.5-7.5) Ur Specific [place] (1.000-1.030) Urine Protein (Negative) Urine Glucose (UA) (Negative) Urine Ketones (Negative) Urine Blood (Negative) Urine Nitrite (Negative) Urine Bilirubin (Negative) Urine Urobilinogen (Negative) Ur Leukocyte Esterase (Negative) Urine WBC (Auto) (0-5) /hpf Urine RBC (Auto) (0-4) /hpf U Hyaline Cast (Auto) (0-5) /lpf U Epithel Cells (Auto) (0-5) /lpf Urine Bacteria (Auto) (Negative) SARS-CoV-2, RNA, NAAT NEGATIVE (NEGATIVE) Administered Medications Gabapentin (Gabapentin 300 Mg Cap) 300 mg PO TID [facility] Stop: 12/20/21 13:59 Last Admin: 11/20/21 20:47 Dose: 300 mg Documented by: [id number] Admin: 11/20/21 17:32 Dose: Not Given Documented by: [id number] Hydralazine HCl (Hydralazine Hcl 20 Mg/Ml Vial) 10 mg IV Q6H PRN PRN Reason: for systolic bp > 160 Stop: 12/20/21 17:29 Last Admin: 11/20/21 20:48 Dose: 10 mg Documented by: [id number] Hydromorphone HCl (Hydromorphone Inj 0.5 Mg/0.5 Ml Syr) 0.5 mg IV Q3H PRN PRN Reason: MODERATE Pain (Scale 4,5,6) & Pre PT Stop: 12/04/21 17:17 Last Admin: 11/20/21 20:59 Dose: 0.5 mg Documented by: [id number] Admin: 11/20/21 18:07 Dose: 0.5 mg Documented by: [id number] Hydromorphone HCl (Hydromorphone Inj 1 Mg/Ml Syringe) 1 mg IV Q3H PRN PRN Reason: SEVERE Pain (Scale 7,8,9,10) Stop: 12/04/21 17:17 Last Admin: 11/21/21 03:39 Dose: 1 mg Documented by: [id number] Sodium Chloride (Nss 1000ml) 1,000 mls @ 100 mls/hr IV .Q10H [facility] Stop: 12/20/21 17:17 Last Admin: 11/21/21 03:43 Dose: 100 mls/hr Documented by: [id number] Infusion: 11/21/21 03:43 Dose: 100 mls/hr Documented by: [id number] Admin: 11/20/21 17:48 Dose: 100 mls/hr Documented by: [id number] Insulin Aspart (Insulin Aspart Per Unit) 0 units SC ACHS [facility] Stop: 12/20/21 11:29 Last Admin: 11/20/21 20:48 Dose: 2 units Documented by: [id number] Cosigned by: [id number] Admin: 11/20/21 17:47 Dose: 1 units Documented by: [id number] Cosigned by: [id number] Admin: 11/20/21 17:30 Dose: Not Given Documented by: [id number] Cosigned by: [id number] Oxycodone HCl (Oxycodone Hcl Ir 5 Mg Tab (Immediate Release)) 5 - 10 mg PO Q4H PRN PRN Reason: Pain & Pre PT Stop: 12/04/21 17:17 Last Admin: 11/21/21 06:31 Dose: 10 mg Documented by: [id number] Admin: 11/21/21 00:22 Dose: 10 mg Documented by: [id number] Polyethylene Glycol (Polyethylene (Miralax) 17 Gm Pack) 17 gm PO Q6 [facility] Stop: 12/21/21 05:59 Last Admin: 11/21/21 06:00 Dose: 17 gm Documented by: [id number] Senna/Docusate Sodium (Docusate Sodium/Senna 50/8.6mg Tab) 2 tab PO HS [facility] Stop: 12/20/21 20:59 Last Admin: 11/20/21 20:47 Dose: 2 tab Documented by: [id number] Discontinued Medications Acetaminophen (Acetaminophen 500 Mg Tab) 1,000 mg PO Q8H [facility] Stop: 12/20/21 09:59 Last Admin: 11/20/21 17:52 Dose: Not Given Documented by: [id number] Acetaminophen (Acetaminophen 1000 Mg/100 Ml Iv) 1,000 mg IV Q8 [facility] Stop: 11/23/21 13:59 Last Admin: 11/20/21 12:09 Dose: 1,000 mg Documented by: [id number] Acetaminophen (Acetaminophen 1000 Mg/100 Ml Iv) Confirm Administered Dose 1,000 mg IV .STK-MED ONE Stop: 11/20/21 12:07 Last Admin: 11/20/21 12:09 Dose: Not Given Documented by: [id number] Amlodipine Besylate (Amlodipine Besylate 5 Mg Tab) 5 mg PO NOW ONE Stop: 11/20/21 17:31 Last Admin: 11/20/21 17:52 Dose: 5 mg Documented by: [id number] Bupivacaine HCl/Epinephrine Bitart (Bupivacaine/Epinephrine 0.25% 1:200,000 30 Ml Vial) Confirm Administered Dose 30 ml .ROUTE .STK-MED ONE Stop: 11/20/21 13:31 Last Admin: 11/20/21 15:00 Dose: 12 ml Documented by: [id number] Cefazolin Sodium (Cefazolin 330 Mg/Ml 1 Gm Vial) Confirm Administered Dose 990 mg .ROUTE .STK-MED ONE Stop: 11/20/21 13:31 Last Admin: 11/20/21 15:00 Dose: 990 mg Documented by: [id number] Fentanyl Citrate (Fentanyl Citrate 100 Mcg/2 Ml Vial) 25 mcg IV Q5M PRN PRN Reason: PACU Use Only-Pain Stop: 11/20/21 20:46 Last Admin: 11/20/21 16:40 Dose: 25 mcg Documented by: [id number] Admin: 11/20/21 16:34 Dose: 25 mcg Documented by: [id number] Admin: 11/20/21 16:28 Dose: 25 mcg Documented by: [id number] Admin: 11/20/21 16:21 Dose: 25 mcg Documented by: [id number] Gabapentin (Gabapentin 600 Mg Tab) 600 mg PO NOW STA Stop: 11/20/21 14:02 Last Admin: 11/20/21 14:10 Dose: 600 mg Documented by: [id number] Hydromorphone HCl (Hydromorphone Inj 1 Mg/Ml Syringe) 1 mg IV NOW STA Stop: 11/20/21 04:42 Last Admin: 11/20/21 04:59 Dose: 1 mg Documented by: [id number] Hydromorphone HCl (Hydromorphone Inj 0.5 Mg/0.5 Ml Syr) 0.5 mg IV NOW STA Stop: 11/20/21 07:25 Last Admin: 11/20/21 07:35 Dose: 0.5 mg Documented by: [id number] Hydromorphone HCl (Hydromorphone Inj 1 Mg/Ml Syringe) 1 mg IV NOW STA Stop: 11/20/21 08:33 Last Admin: 11/20/21 08:39 Dose: 1 mg Documented by: [id number] Sodium Chloride (Nss 1000ml) 1,000 mls @ 75 mls/hr IV .[id number] [facility] Stop: 12/20/21 09:38 Last Infusion: 11/20/21 19:20 Dose: 0 mls/hr Documented by: [id number] Admin: 11/20/21 10:05 Dose: 75 mls/hr Documented by: [id number] Cefazolin Sodium (Ancef 2000mg) 2,000 mg in 15 mls @ 3.75 mls/min IV PREOP ONE Stop: 11/20/21 14:05 Last Admin: 11/20/21 14:17 Dose: 3.75 mls/min Documented by: [id number] Lactated Ringer's (Lr) 1,000 mls @ 15 mls/hr IV .Q24H [facility] Stop: 12/20/21 14:14 Last Infusion: 11/20/21 14:17 Dose: 0 mls/hr Documented by: [id number] Admin: 11/20/21 14:00 Dose: 15 mls/hr Documented by: [id number] Cefazolin Sodium (Ancef 2000mg) 2,000 mg in 15 mls @ 3.75 mls/min IV Q8H [facility]; Protocol Stop: 11/21/21 05:33 Last Admin: 11/21/21 06:00 Dose: 3.75 mls/min Documented by: [id number] Admin: 11/20/21 20:48 Dose: 3.75 mls/min Documented by: [id number] Ioversol (Optiray 320 100ml) 94 ml IV ONCE ONE Stop: 11/20/21 05:21 Last Admin: 11/20/21 05:24 Dose: 94 ml Documented by: [id number] Labetalol HCl (Labetalol Hcl Iv 5 Mg/Ml 20ml) 10 mg IV NOW STA Stop: 11/20/21 16:03 Last Admin: 11/20/21 16:05 Dose: 10 mg Documented by: [id number] Cosigned by: [id number] Labetalol HCl (Labetalol Hcl Iv 5 Mg/Ml 20ml) 10 mg IV NOW STA Stop: 11/20/21 16:30 Last Admin: 11/20/21 16:31 Dose: 10 mg Documented by: [id number] Cosigned by: [id number] Ondansetron HCl (Ondansetron Inj 2 Mg/Ml 2 Ml Vial) 4 mg IV NOW STA Stop: 11/20/21 04:42 Last Admin: 11/20/21 04:59 Dose: 4 mg Documented by: [id number] Oxycodone HCl (Oxycodone Hcl Ir 5 Mg Tab (Immediate Release)) 5 mg PO Q6H PRN PRN Reason: Pain Stop: 12/04/21 09:20 Last Admin: 11/20/21 10:03 Dose: 5 mg Documented by: [id number] Discharge Plan Visit Data Chief Complaint: Abdominal Pain Stated Complaint: ABD PAIN AND BACK PAIN ED Provider: Wendy Ruiz Discharge Problem: Postoperative hematoma Patient Disposition: Admitted As Inpatient Discharge Instructions Interventions: ED Discharge Assessment Last Done: 11/20/21 10:30 Discharge Problem: Postoperative hematoma Qualifiers: Surgical complication system/body Area: subcutaneous tissue Procedure type: non-dermatologic Qualified Code(s): L76.32 - Postprocedural hematoma of skin and subcutaneous tissue following other procedure
[2021-11-20] MEDS ORDERED: ONDANSETRON INJ 2 MG/ML 2 ML VIAL IV STA (04:41)
[2021-11-20] MEDS ORDERED: HYDROmorphone INJ 1 MG/ML SYRINGE IV STA ×2 (04:41→08:32)
[2021-11-20 05:09] LABS: iSTAT Creatinine 0.7 mg/dl (0.6-1.3); iSTAT Hemoglobin 10.9 g/dl (12.0-16.0); iSTAT Ionized Calcium 1.09 mmol/l (1.12-1.32); iSTAT Potassium 3.9 mmol/L (3.3-5.0)
[2021-11-20 05:15] LABS: Basophils # (auto) 0.02 K/uL (0-0.2); Basophils % (auto) 0.2 %; Eosinophils # (auto) 0.12 K/uL (0-0.5); Eosinophils % (auto) 1.1 %; Hematocrit (blood only) 33.3 % (37-47); Hemoglobin 10.7 g/dL (12.0-16.0); Immature Granulocytes # (auto) 0.04 K/uL (0.00-0.02); Immature Granulocytes % (auto) 0.4 %; Lymphocytes # (auto) 1.16 K/uL (1.2-3.4); Lymphocytes % (auto) 10.4 %; Mean Corpuscular Hemoglobin 31.8 pg (25-34); Mean Corpuscular Hgb Conc 32.1 g/dL (32-36); Mean Corpuscular Volume 99.1 fL (80-100); Mean Platelet Volume 8.9 fL (7.4-10.4); Monocytes # (auto) 0.69 K/uL (0.11-0.59); Monocytes % (auto) 6.2 %; Neutrophils % (auto) 81.7 %; Platelet Count 157 K/uL (130-400); RDW Coefficient of Variation 12.9 % (11.5-14.5); RDW Standard Deviation 46.4 fL (36.4-46.3); Red Blood Count 3.36 M/uL (4.2-5.4); White Blood Count 11.13 K/uL (4.8-10.8)
[2021-11-20] MEDS ORDERED: OPTIRAY 320 100ml IV ONE (05:20)
[2021-11-20 05:23] LABS: Alanine Aminotransferase 7 U/L (7-52); Albumin Globulin Ratio 1.5 (0.9-2); Albumin Level 3.8 gm/dl (3.4-5.0); Alkaline Phosphatase 83 U/L (34-104); Anion Gap 10 (3-11); Aspartate Aminotransferase 19 U/L (13-39); BUN Creatinine Ratio 21.4 (10-20); Bilirubin,Total 2.3 mg/dl (0.2-1.0); Blood Urea Nitrogen 15 mg/dl (6-23); Calcium 9.1 mg/dl (8.5-10.1); Carbon Dioxide 25 mmol/L (21-32); Chloride 99 mmol/L (98-107); Est GFR (African American) 96.9 ml/min; Est GFR (Non-African American) 83.6 ml/min; Globulin 2.5 gm/dl (2.5-4.0); Glucose 245 mg/dl (70-99(Fasting)); Lipase 13 U/L (11-82); Potassium 4.1 mmol/L (3.5-5.1); Sodium 134 mmol/L (136-145); Total Protein 6.3 gm/dl (6.0-8.3)
--- NOTE | 2021-11-20 06:46 | CT Scan Report ---
CT OF THE ABDOMEN AND PELVIS WITH CONTRAST CLINICAL HISTORY: L flank pain(?bleeding around surg site - back) COMPARISON STUDY: CT of the abdomen and pelvis November 20, 2020. Right upper quadrant November 22, 2020. TECHNIQUE: Following IV administration of 94 mL of Optiray, axial images of the abdomen and pelvis we re obtained from the lung bases to the proximal femurs. Images were reviewed in the axial, sagittal, and coronal planes. IV contrast was administered without complication. Automated exposure control wa s utilized for the study. A dose lowering technique was utilized adhering to the principles of ALARA . CT DOSE: 975.20 mGy.cm FINDINGS: Post procedural findings from recent placement of spinal cord stimulator are noted. The sti mulator leads enter the canal at T10-T11 level. The canal is suboptimally assessed by CT. Note is mad e of a hyperdense fluid collection within the deep subcutaneous tissues, within the operative bed, a djacent to the extracanalicular portion of the leads. This collection measures 7.2 x 4 cm. This conta ins a linear hyperdense focus. This is suggestive of a hematoma. T12 and L1 kyphoplasty is noted. Mul tilevel postoperative findings within the thoracolumbar spine are present. Subcutaneous edema of the lower back is present. Biliary ductal dilatation is unchanged and prior CT. This is likely related to cholecystectomy. The spleen, adrenal glands, right kidney are normal. There is a left renal cyst. Th ere is no hydronephrosis. There is no evidence for a bowel obstruction. Colonic diverticulosis is not ed without evidence for acute diverticulitis. No abdominal or pelvic lymphadenopathy is present. Exte nsive atherosclerotic plaque of the abdominal aorta. Subcutaneous gas within the lower anterior abdom inal wall is likely from recent injection. Right hepatic dome is not included on this exam. IMPRESSION: 1. No acute process within the abdomen or pelvis. 2. Post procedural findings from recent placement of spinal cord stimulator. 7.2 x 4 cm hyperdense fl uid collection suggestive of a hematoma within the operative bed within the subcutaneous tissues claire cent to the coiled portions of the leads. This hematoma contains a linear hyperdense focus which coul d reflect surgical material or small focus of active extravasation. The central canal is suboptimally assessed due to CT technique and artifact from the stimulator leads. 3. No bowel obstruction. No bowel wall thickening. 4. Colonic diverticulosis without evidence for acute diverticulitis. ACT 112: Negative or not required by law. Electronically signed by: Juan José Reeder M.D. 11/20/2021 6:44 AM
[2021-11-20 07:03] LABS: Appearance Urine Clear (Clear); Bacteria Urine Automated Negative (Negative); Bilirubin Urine Negative (Negative); Blood Urine Negative (Negative); Color Urine Yellow; Epithelial Cell Urine Auto >30 /lpf (0-5); Glucose Urine UA Negative (Negative); Ketones Urine Negative (Negative); Leukocyte Esterase Urine Negative (Negative); Nitrite Urine Negative (Negative); Protein Urine 1+ (Negative); RBC Urine Automated 0-4 /hpf (0-4); Specific Gravity Urine 1.029 (1.000-1.030); Urobilinogen Urine Negative (Negative); pH Urine 6.5 (4.5-7.5)
[2021-11-20] MEDS ORDERED: HYDROmorphone INJ 0.5 MG/0.5 ML SYR IV STA (07:24)
--- NOTE | 2021-11-20 08:41 | History & Physical Report ---
Date of Service November 20, 2021 Assessment & Plan (1) Hematoma following procedure: Plan: - Admit to PCU - Serial H&H - Holding Lovenox and warfarin for now - pt with PAF and hx of CVA - Appreciate spine surgery input - to OR this afternoon for evacuation of the hematoma (2) Back pain: Plan: Acute on chronic pain - has followed with pain management previously. Pain in the ED has been difficult to control. - Scheduled Tylenol with oxycodone for mild to moderate pain, IV Diluadid for severe pain - Consult pain management for additional recommendations - Fall precautions (3) Blood loss anemia: Plan: Acute on chronic anemia - monitor H&H for stability. No indication for transfusion at present but will monitor. (4) PAF (paroxysmal atrial fibrillation): (5) CAD (coronary artery disease): (6) Diabetes mellitus, type II: Plan: Managed with diet alone as outpatient. Was on Metformin previously but this was discontinued last year (A1c at the time was 5.5). Most recent A1c on 11/14/21 was 7.0 - Currently NPO but will need diabetic diet once able to eat - Insulin sliding scale while admitted (7) GERD (gastroesophageal reflux disease): (8) HTN (hypertension): (9) Dyslipidemia: Plan: Continue other home medications as appropriate. Daily labs CXR and EKG ordered as part of pre-op eval. EKG showed atrial fibrillation with RVR - personally reviewed Pt seen and reviewed with attending physician, Dr. Barton. Plan of care discussed and as outlined above. Code Status: Full Code DVT Prophylaxis: SCDsmith Hawthorne PA-C History of Present Illness Chief Complaint: Back pain s/p neurostimulator placement Primary Care Provider: Derrek Sparks MD This is a 76 y/o female with a PMH of PAF on chronic AC, CAD, Chronic HFpEF, prior TIA, HTN, dyslipidemia, ISATU, DM2 with associated retinopathy, GERD, depression, obesity, hypothyroidism, prior Breast CA s/p mastectomy, and chronic back pain for which she follows with pain management who presents to the ED with severe lower back pain radiating to her abdomen that started around midnight. Pt underwent neurostimulator placement by Dr. Street on 11/17/21 and reports that she initially felt okay after the procedure. However, she reports that she started with lower back pain about 8 hours ago that has rapidly worsened in severity. She has been unable to control this pain with oral meds. She had associated LE weakness but denies fall or legs giving out. No new numbness or tingling. She denies radiation of pain to LE. She has received multiple doses of Dilaudid in the ED but pain has been difficult to control. Appetite has been fair but pt reports this is her baseline. She denies fevers, chills, chest pain, palpitations, cough, dyspnea, vomiting, diarrhea, hematochezia, hematuria. Her warfarin was held for the recent procedure and she has been on bridging Lovenox. She has not restarted her warfarin yet. Last dose of Lovenox was last evening. She has not taken any meds yet today. She has some mild nausea at present. Allergies Allergy/AdvReac Type Severity Reaction Status Date / Time nadolol AdvReac Unknown GI UPSET Verified 11/18/21 11:27 nitroglycerin AdvReac Unknown HEADACHE Verified 11/18/21 11:27 NSAIDS (Non-Steroidal AdvReac Unknown GI UPSET Verified 11/18/21 11:27 Anti-Inflamma Home Medications Medication Instructions Recorded Confirmed Type aspirin 81 mg tablet,delayed 81 mg PO QAM 04/02/18 11/20/21 History release (Aspirin Low Dose) gabapentin 300 mg capsule 300 mg PO TID 04/02/18 11/20/21 History pantoprazole 40 mg tablet,delayed 40 mg PO QAM 04/03/20 11/20/21 History release (Protonix) ascorbic acid (vitamin C) 500 mg 500 mg PO QAM 11/20/20 11/20/21 History tablet magnesium oxide 400 mg PO QAM 11/20/20 11/20/21 History acetaminophen 500 mg tablet 500 mg PO Q4H PRN 10/02/21 11/20/21 History amlodipine 2.5 mg tablet 2.5 mg PO BID 10/02/21 11/20/21 History furosemide 20 mg tablet 20 mg PO QAM 10/02/21 11/20/21 History levothyroxine 25 mcg tablet 25 mcg PO QAM 10/02/21 11/20/21 History oxycodone 5 mg tablet 5 mg PO Q6H PRN #20 tab 11/17/21 11/20/21 Rx tramadol 50 mg tablet 50 mg PO Q6H PRN #20 tab 11/17/21 11/20/21 Rx clindamycin HCl 300 mg capsule 300 mg PO BID 7 Days #14 cap 11/18/21 11/20/21 Rx atorvastatin 80 mg tablet 80 mg PO HS 11/20/21 11/20/21 History ferrous sulfate 325 mg (65 mg 325 mg PO BID 11/20/21 11/20/21 History iron) tablet carvedilol 25 mg tablet 25 mg BID 11/22/21 11/22/21 History clonidine HCl 0.1 mg tablet 0.1 mg BID 11/22/21 11/22/21 History sertraline 25 mg tablet 25 mg DAILY 11/22/21 11/22/21 History terazosin 2 mg capsule 4 mg HS 11/22/21 11/22/21 History Past Med/Surg History Medical History Anemia RBC 2.9-3.9 over past year, Hgb 10-13 over past year Aortic stenosis mild per 08/2021 echo CAD (coronary artery disease) 1991 - PTCA/PCI to ramus intermedius complicated by spiral dissection non-obstructive per 2016 cardiac cath Chronic back pain LLE radiculopathy Depression Diabetes mellitus, type II controlled, stable per pt Dyslipidemia Dyspnea on effort occasional, chronic per pt, denies change or worsening GERD (gastroesophageal reflux disease) controlled, stable per pt Hiatal hernia History of breast cancer right breast-right upper extremity restriction History of COVID-19 DX'D 01/2019 AND 05/2019 WHILE IN [facility]-denies residual problems HTN (hypertension) ongoing management, reports improvement with d/c hydralazine and starting valsartan 160 mg Hypothyroidism IBS (irritable bowel syndrome) Limb alert care status Right upper extremity restriction MRSA infection Myocardial Infarction 1994-F/U [facility]/DR GORMAN On anticoagulant therapy Osteoarthritis PAD (peripheral artery disease) severe right brachiocephalic stenosis and moderate to severe abdominal aortic stenosis- under surveillance by cardiovascular-on warfarin PAF (paroxysmal atrial fibrillation) post operative, follows with [facility] cardio, on warfarin Rheumatoid arthritis Sleep apnea Stroke post-op > 10 yrs ago, pt denies residual problems Surgical History H/O repair of right rotator cuff 2013 History of back surgery x3, 2019 History of bilateral knee arthroplasty Left (1995)x2 , right (2005) History of cardiac cath [facility]-2017 NO STENTS History of cholecystectomy 1998 History of colonoscopy History of fracture of nasal bone History of mastectomy RIGHT History of modified radical mastectomy of right breast 2011 History of shoulder replacement R History of total knee replacement left revision Nasal fracture repair S/P insertion of spinal cord stimulator trial placed 11/17/21 at [facility] Status post lumbar surgery Status post renal artery angioplasty 1991 Family History Daughter Family history of reaction to anesthesia SLOW TO WAKE UP Mother Family history of diabetes mellitus Other Diabetes Heart disease Hypertension Social History Smoking Status: Never smoker Second Hand Exposure: No; Hx Alcohol Use: No Hx Substance Use: No Preferred Language: Bhutanese Communication Ability: Effective Visual Impairment: No Limitations Hearing Ability: Normal Manager Support Services Required: No Beliefs That Will Affect Care: None marital status: Current Living Situation: Spouse current occupational status: retired Feels Safe at Home: Yes Assistive Devices: Cane and Walker Review of Systems Review of Systems: All systems reviewed & are unremarkable except as noted in HPI & below Constitutional: + fatigue and + anorexia; no fever and no chills Eyes: no diplopia Respiratory: no cough, no dyspnea, no hemoptysis and no wheezing Cardiovascular: no chest pain, no palpitations, no lightheadedness, no syncope and no edema Gastrointestinal: no abdominal pain, no vomiting and no blood in stools Genitourinary: no dysuria and no hematuria Musculoskeletal: + back pain and + neck pain; no radicular pain Integumentary: no yellowing of the skin Neurologic: no falls, no localized weakness and no headache(s) Physical Exam Constitutional: well developed, well nourished and + obese; no acute distress (although appears uncomfortable at present - lying on her right side) Eyes: + anicteric sclerae Neck: trachea midline Respiratory: no respiratory distress and no labored breathing Auscultation: + diminished lung sounds; no rales, no rhonchi and no wheezes Cardiovascular: Rate/Rhythm: + tachycardic and + irregularly irregular Vessels: radial pulses present Extremities: no pedal edema Gastrointestinal (Abdomen): Inspection/Auscultation: normal bowel sounds; abdomen not distended Percussion/Palpation: + abdomen tender (mild left abdomen) and abdomen soft Musculoskeletal: Neurostimulator in place in left lower back but surrounding edema/fullness noted - tender to light palpation Skin: dressing in lower back with blood but no purulent drainage noted, no active bleeding from incision, +fluctuance Neurologic: moves all extremities; no focal motor deficits and not confused Psychiatric: A+Ox3, euthymic affect Results & Data Results & Data ([facility]) Vital Signs (Past 12 Hours) Vital Signs Temp Pulse Resp BP Pulse Ox 11/20/21 08:00 19 159/103 H 95 11/20/21 07:00 92 H 16 165/75 H 97 11/20/21 06:50 97 H 16 147/92 H 96 11/20/21 06:20 101 H 16 94 11/20/21 06:10 96 H 15 95 11/20/21 06:00 94 H 17 172/71 H 95 11/20/21 05:50 96 H 16 95 11/20/21 05:44 95 H 19 151/74 H 95 11/20/21 05:43 106 H 8 L 11/20/21 05:10 96 H 19 92 11/20/21 05:04 94 H 94 11/20/21 05:00 101 H 17 97 11/20/21 04:52 97 H 21 96 11/20/21 04:21 36.7 C 101 H 20 148/82 H 98 Laboratory Results Laboratory Results - last 24 hr 11/20/21 11/20/21 11/20/21 03:44 04:51 04:51 WBC 11.13 H RBC 3.36 L Hgb 10.7 L POC Hgb Hct 33.3 L POC Hct MCV 99.1 MCH 31.8 MCHC 32.1 RDW Std Deviation 46.4 H RDW Coeff of Farheen 12.9 Plt Count 157 MPV 8.9 Immature Gran % (Auto) 0.4 Neut % (Auto) 81.7 Lymph % (Auto) 10.4 [place] % (Auto) 6.2 Eos % (Auto) 1.1 Baso % (Auto) 0.2 Neut # (Auto) 9.10 H Lymph # (Auto) 1.16 L [place] # (Auto) 0.69 H Eos # (Auto) 0.12 Baso # (Auto) 0.02 Immature Gran # (Auto) 0.04 H PT INR APTT PTT Ratio POC Sodium Sodium 134 L POC Potassium Potassium 4.1 POC Chloride Chloride 99 Carbon Dioxide 25 POC Total CO2 Anion Gap 10 POC Anion Gap POC BUN BUN 15 Creatinine 0.70 POC Creatinine Est Cr Clr Drug Dosing Not Reportable Est GFR ( Amer) 96.9 Est GFR (Non-Af Amer) 83.6 BUN/Creatinine Ratio 21.4 H Glucose 245 H POC Glucose (other) Lactate Calcium 9.1 POC Ioniz Calcium Blaire Total Bilirubin 2.3 H AST 19 ALT 7 Alkaline Phosphatase 83 Total Protein 6.3 Albumin 3.8 Globulin 2.5 Albumin/Globulin Ratio 1.5 Lipase 13 Urine Color Yellow Urine Appearance Clear Urine pH 6.5 Ur Specific [place] 1.029 Urine Protein 1+ H Urine Glucose (UA) Negative Urine Ketones Negative Urine Blood Negative Urine Nitrite Negative Urine Bilirubin Negative Urine Urobilinogen Negative Ur Leukocyte Esterase Negative Urine WBC (Auto) 1-5 Urine RBC (Auto) 0-4 U Hyaline Cast (Auto) 1-5 U Epithel Cells (Auto) >30 H Urine Bacteria (Auto) Negative SARS-CoV-2, RNA, NAAT 11/20/21 11/20/21 11/20/21 04:56 05:14 07:21 WBC RBC Hgb POC Hgb 10.9 L Hct POC Hct 32 L MCV MCH MCHC RDW Std Deviation RDW Coeff of Farheen Plt Count MPV Immature Gran % (Auto) Neut % (Auto) Lymph % (Auto) [place] % (Auto) Eos % (Auto) Baso % (Auto) Neut # (Auto) Lymph # (Auto) [place] # (Auto) Eos # (Auto) Baso # (Auto) Immature Gran # (Auto) PT INR APTT PTT Ratio POC Sodium 135 Sodium POC Potassium 3.9 Potassium POC Chloride 97 L Chloride Carbon Dioxide POC Total CO2 24 Anion Gap POC Anion Gap 18.0 POC BUN 14 BUN Creatinine POC Creatinine 0.7 Est Cr Clr Drug Dosing Est GFR ( Amer) Est GFR (Non-Af Amer) BUN/Creatinine Ratio Glucose POC Glucose (other) 260 H Lactate 1.5 Calcium POC Ioniz Calcium Blaire 1.09 L Total Bilirubin AST ALT Alkaline Phosphatase Total Protein Albumin Globulin Albumin/Globulin Ratio Lipase Urine Color Urine Appearance Urine pH Ur Specific [place] Urine Protein Urine Glucose (UA) Urine Ketones Urine Blood Urine Nitrite Urine Bilirubin Urine Urobilinogen Ur Leukocyte Esterase Urine WBC (Auto) Urine RBC (Auto) U Hyaline Cast (Auto) U Epithel Cells (Auto) Urine Bacteria (Auto) SARS-CoV-2, RNA, NAAT NEGATIVE 11/20/21 08:18 WBC RBC Hgb POC Hgb Hct POC Hct MCV MCH MCHC RDW Std Deviation RDW Coeff of Farheen Plt Count MPV Immature Gran % (Auto) Neut % (Auto) Lymph % (Auto) [place] % (Auto) Eos % (Auto) Baso % (Auto) Neut # (Auto) Lymph # (Auto) [place]undy # (Auto) Eos # (Auto) Baso # (Auto) Immature Gran # (Auto) PT Pending INR Pending APTT Pending PTT Ratio Pending POC Sodium Sodium POC Potassium Potassium POC Chloride Chloride Carbon Dioxide POC Total CO2 Anion Gap POC Anion Gap POC BUN BUN Creatinine POC Creatinine Est Cr Clr Drug Dosing Est GFR ( Amer) Est GFR (Non-Af Amer) BUN/Creatinine Ratio Glucose POC Glucose (other) Lactate Calcium POC Ioniz Calcium Blaire Total Bilirubin AST ALT Alkaline Phosphatase Total Protein Albumin Globulin Albumin/Globulin Ratio Lipase Urine Color Urine Appearance Urine pH Ur Specific [place] Urine Protein Urine Glucose (UA) Urine Ketones Urine Blood Urine Nitrite Urine Bilirubin Urine Urobilinogen Ur Leukocyte Esterase Urine WBC (Auto) Urine RBC (Auto) U Hyaline Cast (Auto) U Epithel Cells (Auto) Urine Bacteria (Auto) SARS-CoV-2, RNA, NAAT Diagnostic Findings CT Abd/Pel 11/20/21 - IMPRESSION:1. No acute process within the abdomen or pelvis. 2. Post procedural findings from recent placement of spinal cord stimulator. 7.2 x 4 cm hyperdense fluid collection suggestive of a hematoma within the operative bed within the subcutaneous tissues adjacent to the coiled portions of the leads. This hematoma contains a linear hyperdense focus which could reflect surgical material or small focus of active extravasation. The central canal is suboptimally assessed due to CT technique and artifact from the stimulator leads. 3. No bowel obstruction. No bowel wall thickening. 4. Colonic diverticulosis without evidence for acute diverticulitis. Medications Administered Discontinued Medications Hydromorphone HCl (Hydromorphone Inj 1 Mg/Ml Syringe) 1 mg IV NOW STA Stop: 11/20/21 04:42 Last Admin: 11/20/21 04:59 Dose: 1 mg Documented by: [id number] Hydromorphone HCl (Hydromorphone Inj 0.5 Mg/0.5 Ml Syr) 0.5 mg IV NOW STA Stop: 11/20/21 07:25 Last Admin: 11/20/21 07:35 Dose: 0.5 mg Documented by: [id number] Hydromorphone HCl (Hydromorphone Inj 1 Mg/Ml Syringe) 1 mg IV NOW STA Stop: 11/20/21 08:33 Last Admin: 11/20/21 08:39 Dose: 1 mg Documented by: [id number] Ioversol (Optiray 320 100ml) 94 ml IV ONCE ONE Stop: 11/20/21 05:21 Last Admin: 11/20/21 05:24 Dose: 94 ml Documented by: [id number] Ondansetron HCl (Ondansetron Inj 2 Mg/Ml 2 Ml Vial) 4 mg IV NOW STA Stop: 11/20/21 04:42 Last Admin: 11/20/21 04:59 Dose: 4 mg Documented by: [id number] Code Status & VTE Plan VTE Prophylaxis Plan VTE Prophylaxis will be ordered: Yes Supervising Physician Co-Signing Physician Notes delayed entry date of service noted above Attending Addendum: care coordinated with NICOLE Swapna Hawthorne please refer to her notes for full details, I agree with her notes, assessment and plan patient seen and examined, records reviewed by myself as well Guilherme Barton MD (1) Back pain Back pain laterality: midline Back pain location: low back pain Chronicity: chronic Sciatica presence: unspecified whether sciatica present Qualified Code(s): M54.5 - Low back pain; G89.29 - Other chronic pain (2) HTN (hypertension) Hypertension type: unspecified Qualified Code(s): I10 - Essential (primary) hypertension
[2021-11-20 09:04] LABS: Partial Thromboplastin Ratio 1.1; Partial Thromboplastin Time 29.9 Seconds (21.0-31.0); Prothrombin Time 10.9 Seconds (9.0-12.0)
--- NOTE | 2021-11-20 09:12 | Consultation ---
Date of Consultation November 20, 2021 Assessment & Plan (1) Hematoma following procedure: Patient is being admitted to the medical service. She is currently NPO. Current plan is to take her this afternoon to the OR for an I&D of the thoracic spine to evacuate her thoracic hematoma. We will have to make the decision if she is still a candidate to proceed with spinal cord stim implant tomorrow or that if this will have to be postponed or ultimately place SCS impant in at the time of I&D. This will have to be coordinated with implant company. Continue to hold Lovenox/anticoagulation. History of Present Illness Reason for Consultation: Thoracic hematoma History of Present Illness This is a 76-year-old female who is well-known to our practice. She is postop day 3 status post spinal cord stimulator trial with T10 laminectomy. She is on Lovenox bridging due to A. fib. Last dose was yesterday. She was doing well up until yesterday when she started to have severe thoracic pain rating to her left lower abdominal and groin region. She tried taking her tramadol and oxycodone at home which did not alleviate her symptoms. Therefore presented to the emergency room this morning for further evaluation. She is currently scheduled to undergo spinal cord stim implant tomorrow. Allergies Allergy/AdvReac Type Severity Reaction Status Date / Time nadolol AdvReac Unknown GI UPSET Verified 11/18/21 11:27 nitroglycerin AdvReac Unknown HEADACHE Verified 11/18/21 11:27 NSAIDS (Non-Steroidal AdvReac Unknown GI UPSET Verified 11/18/21 11:27 Anti-Inflamma Home Medications Medication Instructions Recorded Confirmed Type aspirin 81 mg tablet,delayed 81 mg PO QAM 04/02/18 11/18/21 History release (Aspirin Low Dose) atorvastatin 40 mg tablet 40 mg PO HS 04/02/18 11/18/21 History gabapentin 300 mg capsule 300 mg PO TID 04/02/18 11/18/21 History pantoprazole 40 mg tablet,delayed 40 mg PO QAM 04/03/20 11/18/21 History release (Protonix) ascorbic acid (vitamin C) 500 mg 500 mg PO QAM 11/20/20 11/18/21 History tablet magnesium oxide 400 mg PO QAM 11/20/20 11/18/21 History oxycodone-acetaminophen 7.5 mg-325 1 tab PO Q6H PRN 08/07/21 11/18/21 History mg tablet (Percocet) warfarin 4 mg tablet (Jantoven) 4 - 6 mg PO QAM 08/07/21 11/18/21 History acetaminophen 500 mg tablet 500 mg PO Q4H PRN 10/02/21 11/18/21 History amlodipine 2.5 mg tablet 2.5 mg PO BID 10/02/21 11/18/21 History dicyclomine 10 mg capsule 10 mg PO BID PRN 10/02/21 11/18/21 History furosemide 20 mg tablet 20 mg PO QAM 10/02/21 11/18/21 History hydralazine 100 mg tablet 100 mg PO QID 10/02/21 11/18/21 History levothyroxine 25 mcg tablet 25 mcg PO QAM 10/02/21 11/18/21 History metformin 500 mg tablet 500 mg PO BID 10/02/21 11/18/21 History oxycodone 5 mg tablet 5 mg PO Q6H PRN #20 tab 11/17/21 11/18/21 Rx tramadol 50 mg tablet 50 mg PO Q6H PRN #20 tab 11/17/21 11/18/21 Rx clindamycin HCl 300 mg capsule 300 mg PO BID 7 Days #14 cap 11/18/21 11/18/21 Rx Patient History Medical History Anemia RBC 2.9-3.9 over past year, Hgb 10-13 over past year Aortic stenosis mild per 08/2021 echo CAD (coronary artery disease) 1991 - PTCA/PCI to ramus intermedius complicated by spiral dissection non-obstructive per 2017 cardiac cath Chronic back pain LLE radiculopathy Depression Diabetes mellitus, type II controlled, stable per pt Dyslipidemia Dyspnea on effort occasional, chronic per pt, denies change or worsening GERD (gastroesophageal reflux disease) controlled, stable per pt Hiatal hernia History of breast cancer right breast-right upper extremity restriction History of COVID-19 DX'D 01/2019 AND 05/2019 WHILE IN [facility]-denies residual problems HTN (hypertension) ongoing management, reports improvement with d/c hydralazine and starting valsartan 160 mg Hypothyroidism IBS (irritable bowel syndrome) Limb alert care status Right upper extremity restriction Myocardial Infarction 1994-F/U [facility]/DR GORMAN On anticoagulant therapy Osteoarthritis PAD (peripheral artery disease) severe right brachiocephalic stenosis and moderate to severe abdominal aortic stenosis- under surveillance by cardiovascular-on warfarin PAF (paroxysmal atrial fibrillation) post operative, follows with [facility] cardio, on warfarin Rheumatoid arthritis Sleep apnea Stroke post-op > 10 yrs ago, pt denies residual problems Surgical History H/O repair of right rotator cuff 2013 History of back surgery x3, 2019 History of bilateral knee arthroplasty Left (1995)x2 , right (2005) History of cardiac cath [facility]-2017 NO STENTS History of cholecystectomy 1998 History of colonoscopy History of fracture of nasal bone History of mastectomy RIGHT History of modified radical mastectomy of right breast 2011 History of shoulder replacement R History of total knee replacement left revision Nasal fracture repair S/P insertion of spinal cord stimulator trial placed 11/17/[address] [facility] Status post lumbar surgery Status post renal artery angioplasty 1991 Family History Daughter Family history of reaction to anesthesia SLOW TO WAKE UP Mother Family history of diabetes mellitus Other Diabetes Heart disease Hypertension Social History Smoking Status: Former smoker Second Hand Exposure: No; Hx Alcohol Use: No Hx Substance Use: No Preferred Language: Ukrainian Communication Ability: Effective Visual Impairment: No Limitations Hearing Ability: Normal Sharebroker Required: No Beliefs That Will Affect Care: None marital status: Current Living Situation: Spouse and Family current occupational status: retired Feels Safe at Home: Yes Assistive Devices: Denture - Upper, Denture - Lower and Glasses Review of Systems Review of Systems: All systems reviewed & are unremarkable except as noted in HPI & below Physical Exam Physical Exam: Patient seen in the ER in conjunction with her . She is lying on her right side on a stretcher Noticeably uncomfortable Alert and oriented x3 Dressings over the thoracic and lumbar spine are saturated with bloody drainage. there is significant notable edema surrounding the lower thoracic incision. No purulent drainage noted Strength is intact bilateral lower extremities Constitutional: well nourished Eyes: normal visual enriquez by confrontation ENMT: external ear and nose normal, oropharynx normal Neck: normal visual inspection Respiratory: normal respiratory effort Cardiovascular: Extremities: normal capillary refill Gastrointestinal (Abdomen): Inspection/Auscultation: abdomen normal to inspection Musculoskeletal: Spine: + thoracic spinal tenderness Extremities: extremities normal to inspection and strength 5/5 throughout Skin: + ecchymosis and + fluctulance Neurologic: normal touch/pain/proprioception and moves all extremities Psychiatric: A+Ox3, euthymic affect Eye Contact: + fair eye contact Speech: normal rate/rhythm/volume of speech Results & Data ([facility]) Vital Signs (Past 12 Hours) Vital Signs Temp Pulse Resp BP Pulse Ox 11/20/21 08:00 19 159/103 H 95 11/20/21 07:00 92 H 16 165/75 H 97 11/20/21 06:50 97 H 16 147/92 H 96 11/20/21 06:20 101 H 16 94 11/20/21 06:10 96 H 15 95 11/20/21 06:00 94 H 17 172/71 H 95 11/20/21 05:50 96 H 16 95 11/20/21 05:44 95 H 19 151/74 H 95 11/20/21 05:43 106 H 8 L 11/20/21 05:10 96 H 19 92 11/20/21 05:04 94 H 94 11/20/21 05:00 101 H 17 97 11/20/21 04:52 97 H 21 96 11/20/21 04:21 36.7 C 101 H 20 148/82 H 98
[2021-11-20] MEDS ORDERED: HYDROmorphone INJ 0.5 MG/0.5 ML SYR IV PRN (09:21)
[2021-11-20] MEDS ORDERED: oxyCODONE HCL IR 5 MG TAB (IMMEDIATE RELEASE) PO PRN (09:21)
[2021-11-20] MEDS ORDERED: ACETAMINOPHEN 325 MG TAB PO PRN (09:25)
[2021-11-20] MEDS ORDERED: SODIUM CHLORIDE 0.9% 1000ML 1,000 ML IV SCH (09:39)
[2021-11-20] MEDS ORDERED: ACETAMINOPHEN 500 MG TAB PO SCH (10:00)
--- NOTE | 2021-11-20 10:17 | XRay Report ---
XR chest 1V portable CLINICAL HISTORY: pre-op COMPARISON STUDY: Chest radiograph August 07, 2021. FINDINGS: Elevation of the right hemidiaphragm is unchanged. Right shoulder arthroplasty is partially imaged. Intracanalicular electrodes are noted. Cardiomediastinal silhouette is normal. There is no p neumothorax or pleural effusion. There is pulmonary vascular congestion without overt pulmonary edema . No consolidation to suggest pneumonia. IMPRESSION: 1. Pulmonary vascular congestion without overt pulmonary edema. 2. Stable elevation of the right hemidiaphragm with associated atelectasis. ACT 112: Negative or not required by law. Electronically signed by: Juan José Reeder M.D. 11/20/2021 10:16 AM
[2021-11-20] MEDS ORDERED: CARBOHYDRATES FOR HYPOGLYCEMIA PO PRN (10:43)
[2021-11-20] MEDS ORDERED: GLUCAGON FOR INJ 1 MG VIAL SQ PRN (10:43)
[2021-11-20] MEDS ORDERED: GLUCOSE 10 TABS/TUBE PO PRN (10:43)
[2021-11-20] MEDS ORDERED: GLUCOSE 40% GEL 15 GM TUBE PO PRN (10:43)
[2021-11-20] MEDS ORDERED: DEXTROSE 50% 50 ML SYRINGE IV PRN (10:43)
[2021-11-20 10:53] LABS: Hematocrit (blood only) 32.2 % (37-47); Hemoglobin 10.4 g/dL (12.0-16.0)
[2021-11-20] MEDS ORDERED: ACETAMINOPHEN 1000 MG/100 ML IV IV ONE (12:06)
--- NOTE | 2021-11-20 12:41 | Anesthesiology Consultation ---
Date of Service November 20, 2021 Assessment & Plan (1) Encounter for pre-operative examination: Chart Review Chart Review: Acceptable Risk for Surgery (necessary) and Patient NOT seen in Pre Admission Testing The patient tolerated back surgery on 11/17/21. Consults Requested none History Surgery Operation Date: 11/20/21 09:40 Proposed Procedures p Evacuation of Hematoma - Rashaad Street DO s Spinal Cord Stimulator Placement - Rashaad Street DO Operation Date: 11/21/21 13:05 Proposed Procedures p Spinal Cord Stimulator Placement - Rashaad Street DO Height/Weight Height: 5 ft 10 in Weight: 95.3 kg Allergies Allergy/AdvReac Type Severity Reaction Status Date / Time nadolol AdvReac Unknown GI UPSET Verified 11/18/21 11:27 nitroglycerin AdvReac Unknown HEADACHE Verified 11/18/21 11:27 NSAIDS (Non-Steroidal AdvReac Unknown GI UPSET Verified 11/18/21 11:27 Anti-Inflamma Medications Home Medications Medication Instructions Recorded Confirmed Last Taken aspirin 81 mg tablet,delayed 81 mg PO QAM 04/02/18 11/20/21 11/17/21 07:30 release (Aspirin Low Dose) gabapentin 300 mg capsule 300 mg PO TID 04/02/18 11/20/21 11/17/21 07:30 pantoprazole 40 mg tablet,delayed 40 mg PO QAM 04/03/20 11/20/21 11/17/21 07:30 release (Protonix) ascorbic acid (vitamin C) 500 mg 500 mg PO QAM 11/20/20 11/20/21 11/17/21 07:30 tablet magnesium oxide 400 mg PO QAM 11/20/20 11/20/21 11/17/21 07:30 warfarin 4 mg tablet (Jantoven) 4 - 6 mg PO QAM 08/07/21 11/20/21 11/14/21 acetaminophen 500 mg tablet 500 mg PO Q4H PRN 10/02/21 11/20/21 11/16/21 21:00 amlodipine 2.5 mg tablet 2.5 mg PO BID 10/02/21 11/20/21 11/17/21 07:30 furosemide 20 mg tablet 20 mg PO QAM 10/02/21 11/20/21 11/17/21 07:30 levothyroxine 25 mcg tablet 25 mcg PO QAM 10/02/21 11/20/21 11/17/21 07:30 oxycodone 5 mg tablet 5 mg PO Q6H PRN #20 tab 11/17/21 11/20/21 Unknown tramadol 50 mg tablet 50 mg PO Q6H PRN #20 tab 11/17/21 11/20/21 Unknown clindamycin HCl 300 mg capsule 300 mg PO BID 7 Days #14 cap 11/18/21 11/20/21 Unknown atorvastatin 80 mg tablet 80 mg PO HS 11/20/21 11/20/21 Unknown ferrous sulfate 325 mg (65 mg 325 mg PO BID 11/20/21 11/20/21 Unknown iron) tablet Active Medications Generic Name Dose Route Start Last Admin Trade Name Freq PRN Reason Stop Dose Admin Acetaminophen 1,000 mg 11/20/21 14:00 11/20/21 12:09 Acetaminophen 1000 Mg/100 Ml Iv IV 11/23/21 13:59 1,000 mg Q8 DIAMOND Administration Sodium Chloride 1,000 mls @ 75 mls/hr 11/20/21 09:39 11/20/21 10:05 Nss 1000ml IV 12/20/21 09:38 75 mls/hr .[id number] DIAMOND Administration Oxycodone HCl 5 mg 11/20/21 09:21 11/20/21 10:03 Oxycodone Hcl Ir 5 Mg Tab (Immediate Release) PO 12/04/21 09:20 5 mg Q6H PRN Administration Pain Past Medical History Medical History Anemia RBC 2.9-3.9 over past year, Hgb 10-13 over past year Aortic stenosis mild per 08/2021 echo CAD (coronary artery disease) 1991 - PTCA/PCI to ramus intermedius complicated by spiral dissection non-obstructive per 2017 cardiac cath Chronic back pain LLE radiculopathy Depression Diabetes mellitus, type II controlled, stable per pt Dyslipidemia Dyspnea on effort occasional, chronic per pt, denies change or worsening GERD (gastroesophageal reflux disease) controlled, stable per pt Hiatal hernia History of breast cancer right breast-right upper extremity restriction History of COVID-19 DX'D 01/2019 AND 05/2019 WHILE IN [facility]-denies residual problems HTN (hypertension) ongoing management, reports improvement with d/c hydralazine and starting valsartan 160 mg Hypothyroidism IBS (irritable bowel syndrome) Limb alert care status Right upper extremity restriction MRSA infection Myocardial Infarction 1994-F/U [facility] JIMENEZ/DR GORMAN On anticoagulant therapy Osteoarthritis PAD (peripheral artery disease) severe right brachiocephalic stenosis and moderate to severe abdominal aortic stenosis- under surveillance by cardiovascular-on warfarin PAF (paroxysmal atrial fibrillation) post operative, follows with [facility] cardio, on warfarin Rheumatoid arthritis Sleep apnea Stroke post-op > 10 yrs ago, pt denies residual problems Past Family History Family History Daughter Family history of reaction to anesthesia SLOW TO WAKE UP Mother Family history of diabetes mellitus Other Diabetes Heart disease Hypertension Past Surgical History Surgical History H/O repair of right rotator cuff 2013 History of back surgery x3, 2019 History of bilateral knee arthroplasty Left (1995)x2 , right (2005) History of cardiac cath [facility]-2016 NO STENTS History of cholecystectomy 1998 History of colonoscopy History of fracture of nasal bone History of mastectomy RIGHT History of modified radical mastectomy of right breast 2011 History of shoulder replacement R History of total knee replacement left revision Nasal fracture repair S/P insertion of spinal cord stimulator trial placed 11/17/21 at [facility] Status post lumbar surgery Status post renal artery angioplasty 1991 Social History Smoking Status: Former smoker tobacco type: cigarettes Hx Alcohol Use: No alcohol intake frequency: holidays/special occasions only Hx Substance Use: No substance use type: prescription drug Physical Exam Vital Signs Last Vital Signs Temp 36.7 C 11/20/21 04:21 Pulse 97 H 11/20/21 09:30 Resp 20 11/20/21 09:30 BP 160/72 H 11/20/21 09:30 Pulse Ox 98 11/20/21 09:30 Testing Laboratory Results 11/20/21 10:38 11/20/21 04:51 PT 10.9 Seconds (9.0-12.0) 11/20/21 08:18 INR 1.0 (0.9-1.1) 11/20/21 08:18 APTT 29.9 Seconds (21.0-31.0) 11/20/21 08:18 Urine Color Yellow 11/20/21 03:44 Urine Appearance Clear (Clear) 11/20/21 03:44 Urine pH 6.5 (4.5-7.5) 11/20/21 03:44 Ur Specific [place] 1.029 (1.000-1.030) 11/20/21 03:44 Urine Protein 1+ (Negative) H 11/20/21 03:44 Urine Glucose (UA) Negative (Negative) 11/20/21 03:44 Urine Ketones Negative (Negative) 11/20/21 03:44 Urine Nitrite Negative (Negative) 11/20/21 03:44 Ur Leukocyte Esterase Negative (Negative) 11/20/21 03:44 Urine WBC (Auto) 1-5 /hpf (0-5) 11/20/21 03:44 Urine RBC (Auto) 0-4 /hpf (0-4) 11/20/21 03:44 U Hyaline Cast (Auto) 1-5 /lpf (0-5) 11/20/21 03:44 U Epithel Cells (Auto) >30 /lpf (0-5) H 11/20/21 03:44 Urine Bacteria (Auto) Negative (Negative) 11/20/21 03:44 11/20/21 04:56 POC Glucose (other) 260 H Electrocardiogram Date: 11/20/21 Findings: + NSST changes and + AFIB @ (104) Chest X-Ray Date: 11/20/21 XR chest 1V portable CLINICAL HISTORY: pre-op COMPARISON STUDY: Chest radiograph August 07, 2021. FINDINGS: Elevation of the right hemidiaphragm is unchanged. Right shoulder arthroplasty is partially imaged. Intracanalicular electrodes are noted. Cardiomediastinal silhouette is normal. There is no pneumothorax or pleural effusion. There is pulmonary vascular congestion without overt pulmonary edema. No consolidation to suggest pneumonia. IMPRESSION: 1. Pulmonary vascular congestion without overt pulmonary edema. 2. Stable elevation of the right hemidiaphragm with associated atelectasis. ACT 112: Negative or not required by law. Electronically signed by: Juan José Reeder M.D. 11/20/2021 10:16 AM Dictated:11/20/21 1014 Transcribed: 11/20/21 1014 Echocardiogram Date: 09/09/21 EF: 60-64 LV Function: normal Other Findings: + LVH (mild concentric) and + diastolic dysfunction (grade 2) Valvular Disease: + (mild) Other Testing CT OF THE ABDOMEN AND PELVIS WITH CONTRAST CLINICAL HISTORY: L flank pain(?bleeding around surg site - back) COMPARISON STUDY: CT of the abdomen and pelvis November 20, 2020. Right upper quadrant November 22, 2020. TECHNIQUE: Following IV administration of 94 mL of Optiray, axial images of the abdomen and pelvis were obtained from the lung bases to the proximal femurs. Images were reviewed in the axial, sagittal, and coronal planes. IV contrast was administered without complication. Automated exposure control was utilized for the study. A dose lowering technique was utilized adhering to the principles of ALARA. CT DOSE: 975.20 mGy.cm FINDINGS: Post procedural findings from recent placement of spinal cord stimulator are noted. The stimulator leads enter the canal at T10-T11 level. The canal is suboptimally assessed by CT. Note is made of a hyperdense fluid collection within the deep subcutaneous tissues, within the operative bed, adjacent to the extracanalicular portion of the leads. This collection measures 7.2 x 4 cm. This contains a linear hyperdense focus. This is suggestive of a hematoma. T12 and L1 kyphoplasty is noted. Multilevel postoperative findings within the thoracolumbar spine are present. Subcutaneous edema of the lower back is present. Biliary ductal dilatation is unchanged and prior CT. This is likely related to cholecystectomy. The spleen, adrenal glands, right kidney are normal. There is a left renal cyst. There is no hydronephrosis. There is no evidence for a bowel obstruction. Colonic diverticulosis is noted without evidence for acute diverticulitis. No abdominal or pelvic lymphadenopathy is present. Extensive atherosclerotic plaque of the abdominal aorta. Subcutaneous gas within the lower anterior abdominal wall is likely from recent injection. Right hepatic dome is not included on this exam. IMPRESSION: 1. No acute process within the abdomen or pelvis. 2. Post procedural findings from recent placement of spinal cord stimulator. 7.2 x 4 cm hyperdense fluid collection suggestive of a hematoma within the operative bed within the subcutaneous tissues adjacent to the coiled portions of the leads. This hematoma contains a linear hyperdense focus which could reflect surgical material or small focus of active extravasation. The central canal is suboptimally assessed due to CT technique and artifact from the stimulator leads. 3. No bowel obstruction. No bowel wall thickening. 4. Colonic diverticulosis without evidence for acute diverticulitis. ACT 112: Negative or not required by law. Electronically signed by: Juan José Reeder M.D. 11/20/2021 6:44 AM Dictated:11/20/21 0630
[2021-11-20] MEDS ORDERED: ePHEDrine sulfate 50 MG/ML AMP IV PRN (12:45)
[2021-11-20] MEDS ORDERED: ATROPINE SULFATE 0.1 MG/ML 10ML SYR IV PRN (12:45)
[2021-11-20] MEDS ORDERED: PHENYLEPHRINE 100MCG/ML 5ML SYR IV PRN (12:45)
[2021-11-20] MEDS ORDERED: ONDANSETRON INJ 2 MG/ML 2 ML VIAL IV PRN ×2 (12:45→17:18)
[2021-11-20] MEDS ORDERED: LABETALOL HCL IV 5 MG/ML 20ML IV PRN (12:45)
[2021-11-20] MEDS ORDERED: HYDROmorphone INJ 1 MG/ML SYRINGE IV PRN (12:45)
[2021-11-20] MEDS ORDERED: SUGAMMADEX SODIUM 200 MG/2 ML VIAL IV ONE (13:06)
[2021-11-20] MEDS ORDERED: ceFAZolin 330 MG/ML 1 GM VIAL ONE (13:30)
[2021-11-20] MEDS ORDERED: BUPIVACAINE/EPINEPHRINE 0.25% 1:200,000 30 ML VIAL ONE (13:30)
--- NOTE | 2021-11-20 13:57 | History & Physical Bridge Note ---
Date of Service November 20, 2021 History & Physical Bridge Note I have examined the patient, reviewed the History & Physical and in the interval since the performance of the History & Physical I have noted the following changes of clinical significance: no changes noted Spinal cord stimulator placement with irrigation and debridement
[2021-11-20] MEDS ORDERED: ACETAMINOPHEN 1000 MG/100 ML IV IV SCH (14:00)
[2021-11-20] MEDS ORDERED: GABAPENTIN 600 MG TAB PO STA (14:01)
[2021-11-20] MEDS ORDERED: ceFAZolin 2000MG 2,000 MG/15 ML SYR IV ONE (14:02)
[2021-11-20] MEDS ORDERED: LACTATED RINGER'S 1,000 ML IV SCH (14:15)
--- NOTE | 2021-11-20 15:07 | Fluoroscopy Report ---
FL spine 1V any level CLINICAL HISTORY: CERVICAL EVAC OF HEMATOMA AND SPINAL STIM INSERTION COMPARISON STUDY: None. FLUOROSCOPY TIME: 2 seconds. FINDINGS: A single fluoroscopic spot image of the lower thoracic region demonstrates spinal stimulato r leads in place. IMPRESSION: Fluoroscopic assistance provided for spinal stimulator lead placement. ACT 112: Negative or not required by law. Electronically signed by: Shaun Abreu M.D. 11/20/2021 3:05 PM
--- NOTE | 2021-11-20 15:25 | Operative Report ---
Post Operative Report Pre & Post Diagnosis Operation Date: 11/20/21 09:40 Pre-Op Diagnosis: Lumbar Hematoma Post-Op Diagnosis: Lumbar Hematoma Operation Date: 11/21/21 13:05 <No data on this case meets the specified criteria> I identified the patient and participated in the time-out.: Yes Procedure Operation Date: 11/20/21 09:40 Actual Procedures #1 evacuation of thoracic hematoma. #2 removal of temporary spinal cord stimulator leads. #3 placement of spinal cord stimulator battery. Operation Date: 11/21/21 13:05 <No data on this case meets the specified criteria> Surgeon Rashaad Street, DO Panel Saw Operator None Estimated Blood Loss 25 Findings Consistent with Post-Op Diagnosis Specimens None Indications This is a 76-year-old female well-known to me that is undergone a dorsal column stimulator trial earlier this week. She presents the emergency room late last night with significant back pain. She been undergoing successful trial with marked improvement of her back and leg symptoms but developed a significant hematoma in the thoracic region of the laminotomy site over the past day. Subsequently she is here for evacuation of hematoma and we elected to proceed with spinal cord stimulator placement. Description of Procedure Patient was met with identified informed consent obtained. Patient was then taken to the operative suite underwent patient placed in a prone position adjustable top of the Erik frame. All bony prominences well-padded eyes inspected to ensure no external pressure placed upon them. I did obtain an x- ray of the thoracic spine to ensure appropriate placement of the dorsal column stimulator paddle. This point the thoracolumbar spine was prepped and draped in a sterile fashion. I then opened the thoracic laminotomy site noting a massive amount of hematoma that I dissected through the subcutaneous tissues along the right posterior rib cage. Hematoma was evacuated in its entirety the incision was copiously irrigated with normal saline. I did remove the temporary stimulator leads. I then created a pocket over the right flank large enough for a dorsal come stimulator battery. Trocar was then utilized to take the leads to the battery site today leads were subsequently attached to the battery tested for efficacy. Once this was established I did place the battery within the pocket and the incisions were closed with subcutaneous Vicryl and 4 Monocryl for final skin closure. A 15 round drain was inserted into the thoracic laminotomy site. Sterile dressings were placed and the patient was awakened and taken to PACU in stable condition. I attest to the content of the Intraoperative Record and any orders documented therein. Any exceptions are noted below.
[2021-11-20] MEDS ORDERED: LABETALOL HCL IV 5 MG/ML 20ML IV STA ×2 (16:02→16:29)
[2021-11-20] MEDS: fentaNYL citrate 100 MCG/2 ML VIAL IV PRN ×4 (16:21→16:40)
--- NOTE | 2021-11-20 16:51 | Anesthesiology Progress Note ---
Date of Service November 20, 2021 Anesthesia Post Procedure Vital Signs Vital Signs: Temp Pulse Pulse Pulse Resp BP BP 11/20/21 16:40 93 H 15 171/89 H 11/20/21 16:30 87 17 180/99 H 11/20/21 16:20 88 14 200/105 H 11/20/21 16:10 96 H 16 199/114 H 11/20/21 16:00 90 18 207/121 H 11/20/21 15:50 95 H 15 205/109 H 11/20/21 15:46 36.0 C L 97 H 21 169/96 H 11/20/21 13:10 36.4 C L 102 H 20 201/101 H 11/20/21 12:30 90 20 167/85 H 11/20/21 12:10 90 22 189/86 H 11/20/21 11:00 86 19 167/95 H 11/20/21 10:31 98 H 18 169/104 H 11/20/21 09:30 97 H 20 160/72 H 11/20/21 09:01 96 H 14 143/78 H 11/20/21 08:00 19 159/103 H 11/20/21 07:00 92 H 16 165/75 H 11/20/21 06:50 97 H 16 147/92 H 11/20/21 06:20 101 H 16 11/20/21 06:10 96 H 15 11/20/21 06:00 94 H 17 172/71 H 11/20/21 05:50 96 H 16 11/20/21 05:44 95 H 19 151/74 H 11/20/21 05:43 106 H 8 L 11/20/21 05:10 96 H 19 11/20/21 05:04 94 H 11/20/21 05:00 101 H 17 11/20/21 04:52 97 H 21 11/20/21 04:21 36.7 C 101 H 20 148/82 H Pulse Ox 11/20/21 16:40 95 11/20/21 16:30 94 11/20/21 16:20 94 11/20/21 16:10 96 11/20/21 16:00 96 11/20/21 15:50 96 11/20/21 15:46 95 11/20/21 13:10 98 11/20/21 12:30 97 11/20/21 12:10 97 11/20/21 11:00 97 11/20/21 10:31 98 11/20/21 09:30 98 11/20/21 09:01 98 11/20/21 08:00 95 11/20/21 07:00 97 11/20/21 06:50 96 11/20/21 06:20 94 11/20/21 06:10 95 11/20/21 06:00 95 11/20/21 05:50 95 11/20/21 05:44 95 11/20/21 05:43 11/20/21 05:10 92 11/20/21 05:04 94 11/20/21 05:00 97 11/20/21 04:52 96 11/20/21 04:21 98 Pain Intensity Right Abdomen: Pain Intensity: 10 Back: Pain Intensity: 5 Transfer of Care Handoff Completed per policy Notes Mental Status: alert / awake / arousable and participated in evaluation Patient Amnestic to Procedure: Yes Nausea / Vomiting: adequately controlled Pain: adequately controlled Airway Patency, RR, SpO2: stable & adequate BP & HR: stable & adequate Hydration State: stable & adequate Anesthetic Complications: no major complications apparent and Pt Satisfied with anesthetic care
[2021-11-20] MEDS ORDERED: ALUMINUM/MAGNESIUM SUSP 30 ML UDC PO PRN (17:18)
[2021-11-20] MEDS ORDERED: FAMOTIDINE 20 MG TAB PO PRN (17:18)
[2021-11-20] MEDS ORDERED: LORazepam 0.5 MG TAB PO PRN (17:18)
[2021-11-20] MEDS ORDERED: DO NOT ADMINISTER PNEUMOCOCCAL VACCINE PRN (17:18)
[2021-11-20] MEDS ORDERED: DO NOT ADMINISTER FLU VACCINE PRN (17:18)
[2021-11-20] MEDS ORDERED: diphenhydrAMINE Capsule 25 MG CAP PO PRN (17:18)
[2021-11-20] MEDS ORDERED: LORazepam 2 MG/1 ML VIAL IV PRN (17:18)
[2021-11-20] MEDS ORDERED: bisacodyL 10 MG SUPP PR PRN (17:18)
[2021-11-20] MEDS ORDERED: traMADol HCL 50 MG TABLET PO PRN (17:18)
[2021-11-20] MEDS ORDERED: ACETAMINOPHEN 500 MG TAB PO PRN (17:18)
[2021-11-20] MEDS ORDERED: SOD PHOSPHATE/SOD BIPHOSPHATE ENEMA 132 ML BTL PR PRN (17:18)
[2021-11-20] MEDS ORDERED: PROMETHAZINE HCL 12.5 MG in SODIUM CHLORIDE 0.9% 50 ML IV PRN (17:18)
[2021-11-20] MEDS ORDERED: ONDANSETRON 4 MG OD TAB PO PRN (17:18)
[2021-11-20] MEDS ORDERED: METOCLOPRAMIDE HCL INJ 5 MG/ML 2 ML VIAL IV PRN (17:18)
[2021-11-20] MEDS ORDERED: hydrOXYzine HCl 25 MG TAB PO PRN (17:18)
[2021-11-20] MEDS ORDERED: ACETAMINOPHEN 1,000 MG/100 ML VIAL IV PRN (17:18)
[2021-11-20] MEDS ORDERED: MAGNESIUM HYDROXIDE SUSP 30 ML UDC PO PRN (17:18)
[2021-11-20] MEDS ORDERED: NALOXONE HCL 0.4 MG/1 ML VIAL/CARP IV PRN (17:18)
[2021-11-20] MEDS ORDERED: amLODIPine BESYLATE 5 MG TAB PO ONE (17:30)
[2021-11-20] MEDS: INSULIN ASPART PER UNIT SC SCH ×3 (17:30→20:48)
[2021-11-20] MEDS ORDERED: hydrALAZINE HCL 20 MG/ML VIAL IV PRN (17:30)
[2021-11-20] MEDS: GABAPENTIN 300 MG CAP PO SCH ×2 (17:32→20:47)
[2021-11-20 17:42] LABS: Hemoglobin 10.2 g/dL (12.0-16.0)
[2021-11-20] MEDS: SODIUM CHLORIDE 0.9% 1000ML 1,000 ML IV SCH (17:48)
[2021-11-20] MEDS: HYDROmorphone INJ 0.5 MG/0.5 ML SYR IV PRN ×2 (18:07→20:59)
[2021-11-20] MEDS: DOCUSATE SODIUM/SENNA 50/8.6MG TAB PO SCH (20:47)
[2021-11-20] MEDS: ceFAZolin 2000MG 2,000 MG/15 ML SYR IV SCH (20:48)
[2021-11-20] MEDS: hydrALAZINE HCL 20 MG/ML VIAL IV PRN (20:48)
[2021-11-20] MEDS ORDERED: amLODIPine BESYLATE 5 MG TAB PO SCH (21:00)
[2021-11-20 23:30] LABS: Hematocrit (blood only) 28.9 % (37-47); Hemoglobin 9.6 g/dL (12.0-16.0)
[2021-11-21] MEDS: oxyCODONE HCL IR 5 MG TAB (IMMEDIATE RELEASE) PO PRN ×2 (00:22→06:31)
[2021-11-21] MEDS: HYDROmorphone INJ 1 MG/ML SYRINGE IV PRN ×4 (03:39→19:44)
[2021-11-21] MEDS: SODIUM CHLORIDE 0.9% 1000ML 1,000 ML IV SCH ×2 (03:43→19:16)
[2021-11-21 05:48] LABS: Hematocrit (blood only) 27.4 % (37-47); Hemoglobin 8.9 g/dL (12.0-16.0); Immature Granulocytes # (auto) 0.02 K/uL (0.00-0.02); Immature Granulocytes % (auto) 0.3 %; Lymphocytes % (auto) 15.1 %; Mean Corpuscular Hemoglobin 32.4 pg (25-34); Mean Corpuscular Hgb Conc 32.5 g/dL (32-36); Mean Corpuscular Volume 99.6 fL (80-100); Mean Platelet Volume 8.4 fL (7.4-10.4); Monocytes # (auto) 0.58 K/uL (0.11-0.59); Neutrophils # (auto) 5.59 K/uL (1.4-6.5); Neutrophils % (auto) 76.6 %; Platelet Count 150 K/uL (130-400); RDW Coefficient of Variation 12.8 % (11.5-14.5); RDW Standard Deviation 46.4 fL (36.4-46.3); Red Blood Count 2.75 M/uL (4.2-5.4); White Blood Count 7.29 K/uL (4.8-10.8)
[2021-11-21 05:53] LABS: Prothrombin Time 10.8 Seconds (9.0-12.0)
[2021-11-21] MEDS: ceFAZolin 2000MG 2,000 MG/15 ML SYR IV SCH (06:00)
[2021-11-21] MEDS: POLYETHYLENE (MIRALAX) 17 GM PACK PO SCH ×4 (06:00→21:18)
[2021-11-21 06:07] LABS: Calcium 9.1 mg/dl (8.5-10.1); Est GFR (African American) 99.3 ml/min; Est GFR (Non-African American) 85.6 ml/min
--- NOTE | 2021-11-21 06:24 | Electrocardiogram Report ---
Test Reason : Blood Pressure : / mmHG Vent. Rate : 104 BPM Atrial Rate : 107 BPM P-R Int : 000 ms QRS Dur : 100 ms QT Int : 388 ms P-R-T Axes : 000 058 091 degrees QTc Int : 510 ms Atrial fibrillation with rapid ventricular response Nonspecific T wave abnormality Abnormal ECG When compared with ECG of 07-AUG-2021 17:05, Atrial fibrillation has replaced Sinus rhythm Vent. rate has increased BY 43 BPM Confirmed by Varinder Hidalgo ([id number]) on 11/21/2021 6:23:37 AM Referred By: REFERRED SELF Confirmed By:Varinder Hidalgo
[2021-11-21] MEDS: INSULIN ASPART PER UNIT SC SCH ×4 (08:10→21:35)
[2021-11-21] MEDS: PANTOprazole 40 MG TAB PO SCH (08:13)
[2021-11-21] MEDS: LEVOTHYROXINE SODIUM 25 MCG TABLET PO SCH (08:13)
[2021-11-21] MEDS: GABAPENTIN 300 MG CAP PO SCH ×3 (08:13→21:18)
[2021-11-21] MEDS ORDERED: MUPIROCIN 2% OINT 22 GM TUBE EXT SCH (09:30)
[2021-11-21] MEDS: amLODIPine BESYLATE 5 MG TAB PO SCH ×2 (09:42→21:18)
[2021-11-21] MEDS: MUPIROCIN 2% OINT 22 GM TUBE SCH ×2 (09:54→21:18)
[2021-11-21] MEDS: hydrALAZINE HCL 20 MG/ML VIAL IV PRN (18:20)
--- NOTE | 2021-11-21 18:47 | Hospitalist Progress Note ---
Date of Service November 21, 2021 delayed entry date of service noted above Assessment & Plan (1) Hematoma following procedure: Plan: Per PRATEEK Hawthorne with addendum: - Admit to PCU - Serial H&H - Holding Lovenox and warfarin for now - pt with PAF and hx of CVA - Appreciate spine surgery input - to OR this afternoon for evacuation of the hematoma 11/21 Status post evacuation of hematoma and stimulator batteries placement 11/20 Hemoglobin today dropped to 8.9 Asymptomatic Repeat CBC tomorrow Monitor closely OT recommending return home PT evaluation pain (2) Back pain: Plan: Acute on chronic pain - has followed with pain management previously. Pain in the ED has been difficult to control. - Scheduled Tylenol with oxycodone for mild to moderate pain, IV Diluadid for severe pain - Consult pain management for additional recommendations - Fall precautions 11/21 Much improved after surgery Continue to monitor closely (3) Blood loss anemia: Plan: Acute on chronic anemia - monitor H&H for stability. No indication for transfusion at present but will monitor. 11/21 per above (4) PAF (paroxysmal atrial fibrillation): Plan: Heart rate control Will discuss with Dr. Street as to when Coumadin can be resumed (5) CAD (coronary artery disease): Plan: No cardiac symptoms (6) Diabetes mellitus, type II: Plan: Managed with diet alone as outpatient. Was on Metformin previously but this was discontinued last year (A1c at the time was 5.5). Most recent A1c on 11/14/21 was 7.0 - Insulin sliding scale while admitted BSG 147 (7) GERD (gastroesophageal reflux disease): (8) HTN (hypertension): Plan: Blood pressure improved today (9) Dyslipidemia: Plan: Continue other home medications as appropriate. Daily labs Code Status: Full Code DVT Prophylaxis: SCDs We will discuss with Dr. Street as to when Coumadin can be restarted Admission and Anticipated Discharge Date Admission Date: November 20, 2021 Subjective Follow-up for status post lumbar spine hematoma evacuation, etc. Seen resting in bed, comfortable, not in distress States she feels fine overall No back pain, flank pain, abdominal pain no chest pain, dyspnea, palpitations, dizziness No other symptoms Review of Systems Review of Systems: all noted and negative except for above Physical Exam Physical Exam: General- oriented x 3, not in distress, speaks in sentences with no effort or accessory muscle use Eyes- anicteric Neck- no JVD Lungs- clear breath sounds bilaterally, no rales/wheezes Heart- normal rate, regular rhythm; no murmurs Abdomen- normal bowel sounds, nondistended, soft, nontender Back-dressing in place, drain in place with scant sanguinous output, no discharges Extremities- no pretibial edema, no calf tenderness Neuro- alert, oriented x 3; no gross focal neurologic deficits Skin- warm & dry Results & Data Results & Data ([facility]) Vital Signs (Past 12 Hours) Vital Signs Temp Pulse Resp BP Pulse Ox 11/21/21 18:44 176/89 H 11/21/21 17:00 36.8 C 82 17 138/84 96 11/21/21 15:00 37 C 101 H 22 171/88 H 98 11/21/21 11:00 37 C 95 H 18 156/96 H 95 11/21/21 09:39 36.8 C 99 H 18 156/96 H 96 11/21/21 07:00 36.9 C 103 H 20 136/67 97 all noted and reviewed including below (1) Back pain Back pain laterality: midline Back pain location: low back pain Chronicity: chronic Sciatica presence: unspecified whether sciatica present Qualified Code(s): M54.5 - Low back pain; G89.29 - Other chronic pain (2) HTN (hypertension) Hypertension type: unspecified Qualified Code(s): I10 - Essential (primary) hypertension
[2021-11-21] MEDS: DOCUSATE SODIUM/SENNA 50/8.6MG TAB PO SCH (21:19)
[2021-11-22] MEDS: POLYETHYLENE (MIRALAX) 17 GM PACK PO SCH ×2 (05:24→12:34)
[2021-11-22] MEDS: LEVOTHYROXINE SODIUM 25 MCG TABLET PO SCH (05:24)
[2021-11-22 07:50] LABS: BUN Creatinine Ratio 24.6 (10-20); Calcium 9.2 mg/dl (8.5-10.1); Creatinine Clr Calc Pharmacy 88.2 ml/min; Est GFR (African American) 99.3 ml/min; Est GFR (Non-African American) 85.6 ml/min; Potassium 3.8 mmol/L (3.5-5.1)
[2021-11-22 08:06] LABS: Basophils # (auto) 0.02 K/uL (0-0.2); Basophils % (auto) 0.2 %; Eosinophils # (auto) 0.16 K/uL (0-0.5); Eosinophils % (auto) 1.9 %; Hematocrit (blood only) 27.8 % (37-47); Hemoglobin 8.8 g/dL (12.0-16.0); Immature Granulocytes # (auto) 0.04 K/uL (0.00-0.02); Immature Granulocytes % (auto) 0.5 %; Lymphocytes % (auto) 27.1 %; Mean Corpuscular Hemoglobin 32.4 pg (25-34); Mean Corpuscular Hgb Conc 31.7 g/dL (32-36); Mean Corpuscular Volume 102.2 fL (80-100); Mean Platelet Volume 8.3 fL (7.4-10.4); Monocytes # (auto) 0.76 K/uL (0.11-0.59); Monocytes % (auto) 8.9 %; Neutrophils # (auto) 5.22 K/uL (1.4-6.5); Neutrophils % (auto) 61.4 %; Platelet Count 177 K/uL (130-400); RDW Coefficient of Variation 13.2 % (11.5-14.5); RDW Standard Deviation 48.8 fL (36.4-46.3); Red Blood Count 2.72 M/uL (4.2-5.4)
[2021-11-22] MEDS: amLODIPine BESYLATE 5 MG TAB PO SCH (08:54)
[2021-11-22] MEDS: PANTOprazole 40 MG TAB PO SCH (08:54)
[2021-11-22] MEDS: MUPIROCIN 2% OINT 22 GM TUBE SCH (08:55)
[2021-11-22] MEDS: GABAPENTIN 300 MG CAP PO SCH (08:55)
[2021-11-22] MEDS: INSULIN ASPART PER UNIT SC SCH ×2 (08:56→12:32)
--- NOTE | 2021-11-22 11:06 | Orthopedic Progress Note ---
Date of Service November 22, 2021 Assessment & Plan (1) Hematoma following procedure: Plan: This time we will have patient go home today. She will follow-up next Wednesday in the office for dressing change and possible drain removal. Admission and Anticipated Discharge Date Admission Date: November 20, 2021 Subjective Patient's back pain is well controlled. He denies any leg pain. She has been ambulating about her room without difficulty. Physical Exam Physical Exam: On exam she sitting up at the bedside. Is good strength testing. The dressing is intact. The drain is functioning well. There is no pain to palpation of the thoracolumbar spine. Results & Data ([facility]) Vital Signs (Past 12 Hours) Vital Signs Temp Pulse Pulse Resp BP Pulse Ox 11/22/21 08:00 36.8 C 119 H 20 172/95 H 98 11/22/21 06:11 96 H 11/22/21 03:00 36.6 C 93 H 16 168/75 H 95 11/22/21 00:00 107 H 11/21/21 23:44 37.1 C 116 H 20 142/73 H 95
--- NOTE | 2021-11-22 11:40 | Hospitalist Progress Note ---
Date of Service November 22, 2021 Assessment & Plan (1) Hematoma following procedure: Plan: Per PRATEEK Hawthorne with addendum: - Admit to PCU - Serial H&H - Holding Lovenox and warfarin for now - pt with PAF and hx of CVA - Appreciate spine surgery input - to OR this afternoon for evacuation of the hematoma 11/22 Status post evacuation of hematoma and stimulator batteries placement 11/20 Hemoglobin been stable at 8.8 postoperatively Asymptomatic PT and OT recommended to discharge home Cleared for discharge by Dr. Street Resume Coumadin tomorrow November 23, 2021 Follow-up with Dr. Street in 1 week (2) Back pain: Plan: Acute on chronic pain - has followed with pain management previously. Pain in the ED has been difficult to control. - Scheduled Tylenol with oxycodone for mild to moderate pain, IV Diluadid for severe pain - Consult pain management for additional recommendations - Fall precautions 11/22 Mostly resolved after surgery Continue to monitor closely (3) Blood loss anemia: Plan: Acute on chronic anemia - monitor H&H for stability. No indication for transfusion at present but will monitor. 11/21 per above (4) PAF (paroxysmal atrial fibrillation): Plan: Resume carvedilol Resume Coumadin tomorrow November 23, 2021 (5) CAD (coronary artery disease): Plan: No cardiac symptoms (6) Diabetes mellitus, type II: Plan: Managed with diet alone as outpatient. Was on Metformin previously but this was discontinued last year (A1c at the time was 5.5). Most recent A1c on 11/14/21 was 7.0 Continue outpatient follow-up (7) GERD (gastroesophageal reflux disease): (8) HTN (hypertension): Plan: Resume clonidine, terazosin, amlodipine (9) Dyslipidemia: Plan: On Lipitor Plan: Discharge to home Follow-up with PCP in 1 week Follow-up with Dr. Street in 1 week plan of care discussed with patient and her daughter over the phone in detail and at length all questions answered they are understanding, agreeable, comfortable with the plan of care Admission and Anticipated Discharge Date Admission Date: November 20, 2021 Subjective Follow-up status post lumbar spine evacuation of hematoma, etc. Seen resting in bed, comfortable, not in distress in good spirits States she feels better overall Ambulating in the room with no problems Denies chest pain, shortness of breath, palpitations, dizziness, abdominal pain, nausea vomiting, fevers or chills No other symptoms States that she is ready and would like to be discharged today Review of Systems Review of Systems: all noted and negative except for above Physical Exam Physical Exam: General- oriented x 3, not in distress, speaks in sentences with no effort or accessory muscle use Eyes- anicteric Neck- no JVD Lungs- clear breath sounds bilaterally, no rales/wheezes Heart-normal rate, irregularly irregular rhythm, no murmurs Abdomen- normal bowel sounds, nondistended, soft, nontender Extremities- no pretibial edema, no calf tenderness Back-dressing in place, no bleeding or discharge Drain in place with scant sanguinous output Neuro- alert, oriented x 3; no gross focal neurologic deficits Skin- warm & dry Results & Data Results & Data ([facility]) Vital Signs (Past 12 Hours) Vital Signs Temp Pulse Pulse Resp BP Pulse Ox 11/22/21 11:11 36.5 C 119 H 20 178/98 H 97 11/22/21 08:00 36.8 C 119 H 20 172/95 H 98 11/22/21 06:11 96 H 11/22/21 03:00 36.6 C 93 H 16 168/75 H 95 11/22/21 00:00 107 H 11/21/21 23:44 37.1 C 116 H 20 142/73 H 95 all noted and reviewed including below (1) Back pain Back pain laterality: midline Back pain location: low back pain Chronicity: chronic Sciatica presence: unspecified whether sciatica present Qualified Code(s): M54.5 - Low back pain; G89.29 - Other chronic pain (2) HTN (hypertension) Hypertension type: unspecified Qualified Code(s): I10 - Essential (primary) hypertension
[2021-11-22] MEDS ORDERED: cloNIDine HCL 0.1 MG TAB PO SCH (11:45)
[2021-11-22] MEDS ORDERED: carvediloL 25 MG TAB PO SCH (11:45)
[2021-11-22] MEDS ORDERED: SERTRALINE HCL 50 MG TABLET PO SCH (11:45)
--- NOTE | 2021-11-22 11:50 | Discharge Summary ---
Date of Service November 22, 2021 Admission HPI Per Admitting Provider This is a 76 y/o female with a PMH of PAF on chronic AC, CAD, Chronic HFpEF, prior TIA, HTN, dyslipidemia, ISATU, DM2 with associated retinopathy, GERD, depression, obesity, hypothyroidism, prior Breast CA s/p mastectomy, and chronic back pain for which she follows with pain management who presents to the ED with severe lower back pain radiating to her abdomen that started around midnight. Pt underwent neurostimulator placement by Dr. Street on 11/17/21 and reports that she initially felt okay after the procedure. However, she reports that she started with lower back pain about 8 hours ago that has rapidly worsened in severity. She has been unable to control this pain with oral meds. She had associated LE weakness but denies fall or legs giving out. No new numbness or tingling. She denies radiation of pain to LE. She has received multiple doses of Dilaudid in the ED but pain has been difficult to control. Appetite has been fair but pt reports this is her baseline. She denies fevers, chills, chest pain , palpitations, cough, dyspnea, vomiting, diarrhea, hematochezia, hematuria. Her warfarin was held for the recent procedure and she has been on bridging Lovenox. She has not restarted her warfarin yet. Last dose of Lovenox was last evening. She has not taken any meds yet today. She has some mild nausea at present. Admission Exam Per Admitting Provider Constitutional: well developed, well nourished and + obese; no acute distress (although appears uncomfortable at present - lying on her right side) Eyes: + anicteric sclerae Neck: trachea midline Respiratory: no respiratory distress and no labored breathing Auscultation: + diminished lung sounds; no rales, no rhonchi and no wheezes Cardiovascular: Rate/Rhythm: + tachycardic and + irregularly irregular Vessels: radial pulses present Extremities: no pedal edema Gastrointestinal (Abdomen): Inspection/Auscultation: normal bowel sounds; abdomen not distended Percussion/Palpation: + abdomen tender (mild left abdomen) and abdomen soft Musculoskeletal: Neurostimulator in place in left lower back but surrounding edema/fullness noted - tender to light palpation Skin: dressing in lower back with blood but no purulent drainage noted, no active bleeding from incision, +fluctuance Neurologic: moves all extremities; no focal motor deficits and not confused Psychiatric: A+Ox3, euthymic affect Principal Diagnosis Lumbar spine hematoma Status postevacuation Discharge Exam General- oriented x 3, not in distress, speaks in sentences with no effort or accessory muscle use Eyes- anicteric Neck- no JVD Lungs- clear breath sounds bilaterally, no rales/wheezes Heart-normal rate, irregularly irregular rhythm, no murmurs Abdomen- normal bowel sounds, nondistended, soft, nontender Extremities- no pretibial edema, no calf tenderness Back-dressing in place, no bleeding or discharge Drain in place with scant sanguinous output Neuro- alert, oriented x 3; no gross focal neurologic deficits Skin- warm & dry Discharge Data Allergies Allergy/AdvReac Type Severity Reaction Status Date / Time nadolol AdvReac Unknown GI UPSET Verified 11/18/21 11:27 nitroglycerin AdvReac Unknown HEADACHE Verified 11/18/21 11:27 NSAIDS (Non-Steroidal AdvReac Unknown GI UPSET Verified 11/18/21 11:27 Anti-Inflamma Consultations 11/20/21 07:30 ED Decision to Admit Stat 11/20/21 09:39 Consult Orthopedic Surgery Routine Consult Pain Management Routine 11/20/21 17:18 Consult Hospitalist Routine Procedures Performed Operation Date: 11/20/21 09:40 Actual Procedures s Evacuation of Hematoma(Not Applicable) - Rashaad Street DO p Spinal Cord Stimulator Placement(Not Applicable) - Rashaad Street DO Operation Date: 11/21/21 13:05 <No data on this case meets the specified criteria> Ordered Studies 11/20/21 04:43 CT abd pelvis IV con only Urgent COMPARISON STUDY: CT of the abdomen and pelvis November 20, 2020. Right upper quadrant November 22, 2020. TECHNIQUE: Following IV administration of 94 mL of Optiray, axial images of the abdomen and pelvis were obtained from the lung bases to the proximal femurs. Images were reviewed in the axial, sagittal, and coronal planes. IV contrast was administered without complication. Automated exposure control was utilized for the study. A dose lowering technique was utilized adhering to the principles of ALARA. CT DOSE: 975.20 mGy.cm FINDINGS: Post procedural findings from recent placement of spinal cord stimulator are noted. The stimulator leads enter the canal at T10-T11 level. The canal is suboptimally assessed by CT. Note is made of a hyperdense fluid collection within the deep subcutaneous tissues, within the operative bed, adjacent to the extracanalicular portion of the leads. This collection measures 7.2 x 4 cm. This contains a linear hyperdense focus. This is suggestive of a hematoma. T12 and L1 kyphoplasty is noted. Multilevel postoperative findings within the thoracolumbar spine are present. Subcutaneous edema of the lower back is present. Biliary ductal dilatation is unchanged and prior CT. This is likely related to cholecystectomy. The spleen, adrenal glands, right kidney are normal. There is a left renal cyst. There is no hydronephrosis. There is no evidence for a bowel obstruction. Colonic diverticulosis is noted without evidence for acute diverticulitis. No abdominal or pelvic lymphadenopathy is present. Extensive atherosclerotic plaque of the abdominal aorta. Subcutaneous gas within the lower anterior abdominal wall is likely from recent injection. Right hepatic dome is not included on this exam. IMPRESSION: 1. No acute process within the abdomen or pelvis. 2. Post procedural findings from recent placement of spinal cord stimulator. 7.2 x 4 cm hyperdense fluid collection suggestive of a hematoma within the operative bed within the subcutaneous tissues adjacent to the coiled portions of the leads. This hematoma contains a linear hyperdense focus which could reflect surgical material or small focus of active extravasation. The central canal is suboptimally assessed due to CT technique and artifact from the stimulator leads. 3. No bowel obstruction. No bowel wall thickening. 4. Colonic diverticulosis without evidence for acute diverticulitis. ACT 112: Negative or not required by law. 11/20/21 14:12 FL spine 1V any level Routine Hospital Course (1) Hematoma following procedure: 11/22 Status post evacuation of hematoma and stimulator batteries placement 11/20 Hemoglobin been stable at 8.8 postoperatively Asymptomatic PT and OT recommended to discharge home Cleared for discharge by Dr. Street Resume Coumadin tomorrow November 23, 2021 Follow-up with Dr. Street in 1 week (2) Back pain: Acute on chronic pain - has followed with pain management previously. Pain in the ED has been difficult to control. - Scheduled Tylenol with oxycodone for mild to moderate pain, IV Diluadid for severe pain 11/22 Mostly resolved after surgery Continue to monitor closely (3) Blood loss anemia: Acute on chronic anemia - monitor H&H for stability. No indication for transfusion at present but will monitor. 11/21 per above (4) PAF (paroxysmal atrial fibrillation): Resume carvedilol Resume Coumadin tomorrow November 23, 2021 (5) CAD (coronary artery disease): No cardiac symptoms (6) Diabetes mellitus, type II: Managed with diet alone as outpatient. Was on Metformin previously but this was discontinued last year (A1c at the time was 5.5). Most recent A1c on 11/14/21 was 7.0 Continue outpatient follow-up (7) GERD (gastroesophageal reflux disease): (8) HTN (hypertension): Resume clonidine, terazosin, amlodipine (9) Dyslipidemia: On Lipitor Discharge to home Follow-up with PCP in 1 week Follow-up with Dr. Street in 1 week plan of care discussed with patient and her daughter over the phone in detail and at length all questions answered they are understanding, agreeable, comfortable with the plan of care Total Time Total Time Spent Total Time Spent (In Minutes): >30 minutes Discharge Plan Discharge Items Patient Disposition: Home - Self-Care Reason For Visit: LUMBAR HEMATOMA Discharge Diagnosis: Thoracolumbar hematoma Activity: As commented below Lifting: Wait until after follow-up appointment Exercise/Sports: Wait until after follow-up appointment Driving/Machine Use: No driving until reevaluated by primary care physician Non-emergency contact: Primary Care Provider and Surgeon Call non-emergency contact if: you have any medication questions, your symptoms worsen, your pain is not controlled, your pain is worsening, your pain is unusual for you, your pain is concerning for you and you have a fever Follow-up/Referrals: Rashaad Street DO [Surgeon] - Derrek Sparks MD [Primary Care Provider] - Diet: Carb Consistent or DM2 and Heart Healthy Addtl Attending Provider Instructions: Resume Coumadin (4 mg every Wednesday, Wednesday, and 6 mg all other days) starting tomorrow November 23, 2021. The Coumadin clinic will be calling you soon for further Coumadin dosing instructions. Resume aspirin starting tomorrow November 23, 2021. Resume the rest of your medication regimen starting tonight November 22, 2021. PLEASE CALL YOUR PRIMARY CARE PHYSICIAN OR RETURN TO THE ER IF WITH WORSENING OF SYMPTOMS, INCLUDING Back pain, flank pain, abdominal pain, nausea vomiting no fevers or chills, chest pain, shortness of breath, dizziness, palpitations. FOLLOW UP WITH PRIMARY CARE PHYSICIAN in 1 week. Follow-up with Dr. Street as scheduled. ACTIVITY RECOMMENDATIONS: SELF CARE INSTRUCTIONS AFTER A LAMINECTOMY 1. No prolonged sitting (less than 30 minutes for the first 3 weeks after surgery). 2. No bending, lifting more than 5 pounds, or twisting (roll like a log when turning in bed). 3. You may shower 3 days after surgery if no drainage from wound. Thoroughly dry wound. Do not soak in the tub. 4. Please walk as much as you can for exercise. Gradually increase the distance that you walk as your endurance increases. 5. You may drive in 7-10 days if you are comfortable and no longer requiring pain medications. SPECIAL CARE INSTRUCTIONS: VERY IMPORTANT TO READ AND REVIEW A. Your surgical incision has been closed with a cosmetic suture under the skin that will dissolve in about 6 weeks. In 14 days, you can use a pair of clean scissors and cut the suture that is left outside of the skin at the ends of your incision. B. Complications are uncommon, but please contact us if you have any signs or symptoms of: 1. wound infection (fever higher than 102.5 degrees F, redness, separation of wound, drainage, or increasing pain from the incision) 2. blood clots in legs (pain, swelling, redness and warmth in legs) 3. urinary tract infection (fever higher than 102.5 degrees, burning upon urination or increased frequency of urination) 4. nerve problems (inability to walk on your toes or heels, numbness, loss of bowel or bladder control) 5. any other symptoms that concern you. C. Please call the office at if you have any concerns or questions about your operation or recovery. MANAGING PAIN AFTER SPINAL SURGERY 1. Narcotic medication is intended for short-term use and will be provided for surgical pain. Surgical pain usually lasts for a period of 4-6 weeks. Narcotic medication includes Percocet, Vicodin, Darvocet, Tylenol #3 or Lortab. 2. Longer-term pain is more appropriately treated with non-narcotic medication such as Tylenol ES. 3. Muscle spasm is not appropriately treated with narcotics. Muscle relaxers such as Soma, Flexeril or Skelaxin can be used along with Tylenol ES. 4. Remember that we all live with some "aches and pains". This is not unusual or uncommon after an injury or as we get older. 5. We will provide appropriate medication within the normal guidelines of their prescribed use. We will also be very cautious and aware of potential abuse and extended duration of patients' medication needs. 6. Please allow 2-3 days to process refills. Prescriptions will not be mailed but must be picked up at the office. FOLLOW UP VISIT: Keep your scheduled follow-up appointment. Any questions, please call the office at . Pending Studies at Discharge: No Stand-Alone Forms: My [facility], Smoking Cessation Medications and DC Order Prescriptions: Continued pantoprazole [Protonix] 40 mg tablet,delayed release (DR/EC) 40 mg PO QAM RF: 0 aspirin [Aspirin Low Dose] 81 mg Tablet,Delayed Release (Dr/Ec) 81 mg PO QAM RF: 0 gabapentin 300 mg Capsule 300 mg PO TID RF: 0 atorvastatin 80 mg tablet 80 mg PO HS RF: 0 ferrous sulfate 325 mg (65 mg iron) tablet 325 mg PO BID RF: 0 clonidine HCl 0.1 mg tablet 0.1 mg BID RF: 0 carvedilol 25 mg tablet 25 mg BID RF: 0 sertraline 25 mg tablet 25 mg DAILY RF: 0 terazosin 2 mg capsule 4 mg HS RF: 0 magnesium oxide 400 mg magnesium Tablet 400 mg PO QAM RF: 0 ascorbic acid (vitamin C) 500 mg Tablet 500 mg PO QAM RF: 0 acetaminophen 500 mg tablet 500 mg PO Q4H PRN (Reason: Pain) RF: 0 amlodipine 2.5 mg Tablet 2.5 mg PO BID RF: 0 levothyroxine 25 mcg Tablet 25 mcg PO QAM RF: 0 furosemide 20 mg Tablet 20 mg PO QAM RF: 0 tramadol 50 mg tablet 50 mg PO Q6H PRN (Reason: pain, moderate) Qty: 20 RF: 0 oxycodone 5 mg tablet 5 mg PO Q6H PRN (Reason: pain, severe) Qty: 20 RF: 0 clindamycin HCl 300 mg capsule 300 mg PO BID 7 Days Qty: 14 RF: 0 Discontinued warfarin [Jantoven] 4 mg tablet 4 - 6 mg PO QAM RF: 0 Discharge Orders: Discharge Order (Routine); Ordered 11/22/21 Ordered By: Rashaad Street Admission Data Admit Date/Time: 11/20/21 07:50 Attending Provider: Guilherme Barton Admit Provider: Guilherme Barton Primary Care Provider: Derrek Sparks Other Providers: Guilherme Barton ; Rashaad Street ; Yimi Bai Other Interventions: Discharge Summary Assessment (RN) Last Done: 11/22/21 12:47
== END 2021-11-22 13:30 | disposition home or self-care (01) | DRG 908 ==
LOC: ED 04:18 → EDINP 07:50 → 1E 17:08 → 2S 11-21 19:04

== ENCOUNTER 2024-01-05 14:57 | Inpatient (IN) ==
--- NOTE | 2024-01-05 16:58 | Emergency Department Note ---
Impression & Plan Abdominal pain, Acute GI bleeding, Melena ED Provider Note HISTORY OF PRESENT ILLNESS: Patient is a 78-year-old female presenting with abdominal pain for the last 4 weeks. Reports that the symptoms seem to come and go. States that she goes through bouts of being severely constipated and then having "gushing stool out of my rectum." She states that today she has significant pain in her right lower quadrant. States that she started vomiting earlier this afternoon. She had a bowel movement earlier today that was black in color. She is on Coumadin for history of A-fib. Denies any fevers. Currently not complaining of any nausea. Rates her pain a 10 out of 10 in the right lower quadrant. Reports an abdominal surgical history significant for cholecystectomy. Has any chest pain or shortness of breath. Denies any recent sick contact exposures or recent travel. ROS: as above PHYSICAL EXAM: Constitutional: Patient appears in no acute distress. HENT: Head: Normocephalic and atraumatic. Eyes: EOMI, PERRL Mouth/Throat: Mucous membranes moist. Neck: Trachea midline. Neck supple. Cardiovascular: Irregular rhythm. No murmurs, rubs or gallops. Intact distal pulses. Pulmonary/Chest: No respiratory distress. Breath sounds clear and equal bilaterally. No wheezes or rales. Abdominal: Abdomen soft, no rebound or guarding. RLQ TTP Rectal: Chaperoned by nursing staff. No palpable masses or hemorrhoids. Melanotic stool on glove. Hemoccult positive. Musculoskeletal: No edema, tenderness or deformity noted. Skin: Warm and dry. No rash, erythema, pallor or cyanosis Psychiatric: Appropriate mood and affect for situation. Neurological: Alert and keenly responsive. CN II-XII grossly intact, moving all extremities equally and fully. MDM: - Vitals signs showed hypertension - History obtained via patient. History as above. - Chronic conditions affecting care: HLD; HTN; GERD; DM-2; CAD (s/p PCI); peripheral artery disease; Afib - Differential diagnoses include, but are not limited to: appendicitis; ischemic colitis; diverticulitis; UTI; small bowel obstruction; GI bleed - Order placed for continuous cardiac monitoring. At this time, monitor showed rate of 89 bpm with irregular rhythm, per my interpretation. - External medical records reviewed. Discharge summary dated 11/22/2021 was reviewed. Patient was admitted at that time for severe lower back pain - EKG interpreted by myself showed atrial fibrillation. Rate 77 bpm. QT 426. No acute ischemic changes. - Laboratory workup interpreted by myself showed normal WBC; anemia (Hgb 11.0 - down from 13.2 one year ago); INR 2.1; slight hyponatremia (Na 134); hypercalcemia (Ca 10.5); elevated lactate (2.5); elevated total bilirubin (1.9); stable liver function; normal troponin; normal lipase - UA negative for infection. Noted to have bacteria, but no WBCs. - Patient given 1L NS and 4 mg IV zofran. On reassessment, she is feeling improved. - Repeat lactate down to 1.7 - Viral respiratory panel negative - CT abdomen/pelvis with IV contrast showed no acute pathology. Noted to have severe atherosclerosis with high-grade stenosis of the infrarenal abdominal aorta and proximal branch vessels. - Patient initially hesitant for me to do a rectal exam. However, I agree discussion of her results, she was agreeable. Rectal exam chaperoned by nursing staff. Positive for melanotic stool on glove and Hemoccult positive. Patient was agreeable to admission. IV Pepcid ordered and the hospitalist ordered IV Protonix. - Discussion was had with housing case manager about patient's case and need for admission - Hospitalist, Dr. Parks, consulted for admission - Patient admitted to [facility] service for further evaluation and management. ASSESSMENT AND PLAN: Diagnosis: abdominal pain; acute GI bleeding; melena Plan: admit Past Med/Surg History Problem List (Updated 01/19/23 @ 13:43 by Humera Miranda) Melena (Acute) Acute GI bleeding (Acute) Abdominal pain (Acute) Hypertensive emergency 2017 Rheumatoid arthritis PAD (peripheral artery disease) Postoperative back pain (Acute) Compression fracture of L1 lumbar vertebra Back pain (Acute) Venous ulcer-leg syndrome, left Abnormal CT of the abdomen Postlaminectomy syndrome of lumbar region Hematoma following procedure Blood loss anemia Encounter for pre-operative examination Postoperative hematoma (Acute) Postlaminectomy syndrome of lumbar region Anemia Hgb 10-13 over past year PAF (paroxysmal atrial fibrillation) post operative, follows with [facility] cardio, on warfarin Depression CAD (coronary artery disease) 1991 - PTCA/PCI to ramus intermedius complicated by spiral dissection non-obstructive per 2017 cardiac cath Follows with [facility] cardiology Diabetes mellitus, type II no longer on medication-waiting to hear back from about a new medicine as the Jardiance was too expensive GERD (gastroesophageal reflux disease) controlled, stable per pt HTN (hypertension) (Acute) controlled, stable per pt Dyslipidemia IBS (irritable bowel syndrome) History of breast cancer Right breast- RUE limb restriction* Status post renal artery angioplasty 1994 History of bilateral knee arthroplasty Left (1995) x2 , right (2005) History of cholecystectomy 1998 History of modified radical mastectomy of right breast 2010 H/O repair of right rotator cuff 2012 Medical History (Updated 01/05/24 @ 21:02 by Emilia Jones MD) Limb alert care status RUE limb restriction Aortic stenosis "Mild" per 12/2022 echo Sleep apnea no treatment History of COVID-19 x 01/2020 and 05/2020 while in [place] for rehab, denies residual issues Myocardial Infarction 1994, had a balloon angioplasty, [facility] [place] MRSA infection Hx-more than 1 year ago Atrial fibrillation with RVR f/u [facility] PAD (peripheral artery disease) severe right brachiocephalic stenosis and moderate to severe abdominal aortic stenosis- under surveillance by cardiovascular-on warfarin Chronic back pain LLE radiculopathy Rheumatoid arthritis Hiatal hernia Hypothyroidism CVA (cerebral vascular accident) 2017, residual unsteady, left sided weakness Surgical History (Updated 01/19/23 @ 13:43 by Humera Miranda) History of surgery on left wrist "put a plate in for the arthritis" History of surgery Hematoma evacuation, stimulator check (11/20/21): Grade 1 view, MAC#3, ETT 7.0 at [facility]. No issues noted per post-op anesthesia progress note. S/P insertion of spinal cord stimulator placed in 2021, [facility]>has had it checked multiple times History of fracture of nasal bone no sx. History of shoulder replacement R Status post lumbar surgery History of back surgery x3, 2018 History of cardiac cath 2017 ([facility]) > no stents History of colonoscopy Family History Daughter Family history of reaction to anesthesia SLOW TO WAKE UP Mother Family history of diabetes mellitus Other Heart disease Hypertension Social History Smoking Status: Former smoker Second Hand Exposure: No; Do You Dip or Chew Tobacco: No; Hx Alcohol Use: Yes (hx-none for years) Hx Substance Use: No Preferred Language: Maldivian Communication Ability: Effective Visual Impairment: No Limitations Hearing Ability: Normal Central Office Technician Required: No Beliefs That Will Affect Care: None marital status: Current Living Situation: Spouse current occupational status: retired Feels Safe at Home: Yes Assistive Devices: Cane, Denture - Upper, Denture - Lower and Glasses Allergies Allergies Allergy/AdvReac Type Severity Reaction Status Date / Time ABRIL Inhibitors AdvReac Severe hyperkalemi Verified 01/26/23 08:47 a nadolol AdvReac Unknown GI UPSET Verified 01/26/23 08:47 nitroglycerin AdvReac Unknown HEADACHE Verified 01/26/23 08:47 NSAIDS (Non-Steroidal AdvReac Unknown GI UPSET Verified 01/26/23 08:47 Anti-Inflamma metformin AdvReac Diarrhea Verified 01/26/23 10:04 Home Meds Home Medications Medication Instructions Recorded Confirmed aspirin 81 mg tablet,delayed 81 mg PO QAM 04/02/18 01/26/23 release (Ashly Low Dose Aspirin) gabapentin 300 mg capsule 300 mg PO TID 04/02/18 01/26/23 pantoprazole 40 mg tablet,delayed 40 mg PO QAM 04/03/20 01/26/23 release (Protonix) ascorbic acid (vitamin C) 500 mg 500 mg PO QAM 11/20/20 01/26/23 tablet magnesium oxide 400 mg PO QAM 11/20/20 01/26/23 acetaminophen 500 mg tablet 500 mg PO Q4H PRN Pain 10/02/21 01/26/23 amlodipine 2.5 mg tablet 2.5 mg PO BID 10/02/21 01/26/23 furosemide 20 mg tablet 20 mg PO QAM 10/02/21 01/26/23 levothyroxine 25 mcg tablet 25 mcg PO QAM 10/02/21 01/26/23 atorvastatin 80 mg tablet 80 mg PO DAILY 11/20/21 01/26/23 ferrous sulfate 325 mg (65 mg 325 mg PO DAILY 11/20/21 01/26/23 iron) tablet carvedilol 25 mg tablet 25 mg BID 11/22/21 01/26/23 clonidine HCl 0.1 mg tablet 0.1 mg BID 11/22/21 01/26/23 sertraline 25 mg tablet 25 mg PO QAM 11/22/21 01/26/23 terazosin 2 mg capsule 4 mg PO HS 11/22/21 01/26/23 warfarin 4 mg tablet 4 mg PO HS 02/27/22 01/26/23 cholecalciferol (vitamin D3) 50 50 mcg PO DAILY 03/27/22 01/26/23 mcg (2,000 unit) capsule (Vitamin D3) Previous Rx's Medication Instructions Recorded oxycodone 5 mg tablet 5 mg PO Q6H PRN pain #30 tabs 01/26/23 tramadol 50 mg tablet 50 mg PO Q6H PRN pain, moderate 01/26/23 #20 tabs Results & Data (ED) Vital Signs Vital Signs - 24 hr 01/05/24 15:05 01/05/24 16:49 01/05/24 17:10 Temperature 36.6 C Temperature Source Temporal Artery Scan Pulse Rate 77 78 Pulse Rate [Finger] 78 Respiratory Rate 14 18 Respiratory Effort / Characteristics Non-Labored Spontaneous Respiratory Depth Normal Blood Pressure 106/67 Blood Pressure [Right Arm] 149/83 H Blood Pressure Mean 80 Blood Pressure Mean [Right Arm] 105 Pulse Oximetry 98 100 Oxygen Delivery Method Room Air Room Air Sepsis Recent Fever Within 48 Hours No Sepsis New/Unexplained Change in Mental Status No Sepsis Action Taken by Nursing No Action Required 01/05/24 18:13 Temperature Temperature Source Pulse Rate Pulse Rate [Finger] 89 Respiratory Rate 18 Respiratory Effort / Characteristics Respiratory Depth Blood Pressure Blood Pressure [Right Arm] 180/98 H Blood Pressure Mean Blood Pressure Mean [Right Arm] 125 Pulse Oximetry 98 Oxygen Delivery Method Room Air Sepsis Recent Fever Within 48 Hours Sepsis New/Unexplained Change in Mental Status Sepsis Action Taken by Nursing Laboratory Data 01/05/24 17:14 01/05/24 16:32 Lab Results 01/05/24 01/05/24 01/05/24 Range/Units 16:32 16:41 17:14 WBC 8.18 (4.8-10.8) K/ul RBC 3.24 L (4.20-5.40) M/uL Hgb 11.0 L (12.0-16.0) g/dl Hct 32.9 L (37.0-47.0) % MCV 101.5 H (80.0-100.0) fL MCH 34.0 (25.0-34.0) pg MCHC 33.4 (32.0-36.0) g/dL RDW Std Deviation 50.0 H (36.4-46.3) fL RDW Coeff of Farheen 13.7 (11.5-14.5) % Plt Count 182 (130-400) K/uL MPV 8.7 L (9.4-12.4) fL Immature Gran % (Auto) 0.2 % Neut % (Auto) 73.5 % Lymph % (Auto) 21.1 % [place] % (Auto) 4.3 % Eos % (Auto) 0.5 % Baso % (Auto) 0.4 % Neut # (Auto) 6.01 (1.40-6.50) K/uL Lymph # (Auto) 1.73 (1.20-3.40) K/uL [place] # (Auto) 0.35 (0.11-0.59) K/uL Eos # (Auto) 0.04 (0.00-0.50) K/uL Baso # (Auto) 0.03 (0.00-0.20) K/uL Immature Gran # (Auto) 0.02 (0.01-0.20) K/uL PT 20.9 H (9.0-12.0) Seconds INR 2.1 H (0.9-1.1) Sodium 134 L (136-145) mmol/L Potassium 3.9 (3.5-5.1) mmol/L Chloride 98 (98-107) mmol/L Carbon Dioxide 25 (21-32) mmol/L Anion Gap 11 (3-11) BUN 20 (6-23) mg/dl Creatinine 1.20 (0.6-1.2) mg/dl Est Cr Clr Drug Dosing Not Reportable Est GFR ( Amer) 49.8 ml/min Est GFR (Non-Af Amer) 43.0 ml/min BUN/Creatinine Ratio 16.7 (10-20) Glucose 245 H (70-99(Fasting)) mg/dl Lactate 2.5 H* (0.4-2.0) mmol/L Calcium 10.5 H (8.6-10.3) mg/dl Magnesium 1.8 (1.7-2.4) mg/dl Total Bilirubin 1.9 H (0.2-1.0) mg/dl AST 35 (13-39) U/L ALT 24 (7-52) U/L Alkaline Phosphatase 80 (34-104) U/L Troponin I High Sens 5.1 (0-14) pg/ml Total Protein 7.9 (6.0-8.3) gm/dl Albumin 4.6 (3.4-5.0) gm/dl Globulin 3.3 (2.5-4.0) gm/dl Albumin/Globulin Ratio 1.4 (0.9-2) Lipase 32 (11-82) U/L Urine Color Urine Appearance (Clear) Urine pH (4.5-7.5) Ur Specific [place] (1.000-1.030) Urine Protein (Negative) Urine Glucose (UA) (Negative) Urine Ketones (Negative) Urine Blood (Negative) Urine Nitrite (Negative) Urine Bilirubin (Negative) Urine Urobilinogen (Negative) Ur Leukocyte Esterase (Negative) Urine WBC (Auto) (0-5) /hpf Urine RBC (Auto) (0-2) /hpf U Hyaline Cast (Auto) (0-2) /lpf U Epithel Cells (Auto) (0-2) /hpf Urine Bacteria (Auto) (None Seen) Adenovirus (PCR) Not Detected (NotDetected) B. pertussis DNA (PCR) Not Detected (NotDetected) B.parapertussis DNA PCR Not Detected (NotDetected) C. pneumoniae DNA (PCR) Not Detected (NotDetected) Coronavirus OC43 (PCR) Not Detected (NotDetected) Coronavirus HKU1 (PCR) Not Detected (NotDetected) Coronavirus 229E (PCR) Not Detected (NotDetected) SARS-CoV-2 (PCR) Not Detected (NotDetected) Coronavirus NL63 (PCR) Not Detected (NotDetected) Human Metapneumovir PCR Not Detected (NotDetected) Influenza Type A (PCR) Not Detected (NotDetected) Influenza Type B (PCR) Not Detected (NotDetected) M. pneumoniae (PCR) Not Detected (NotDetected) Parainfluenza 1 (PCR) Not Detected (NotDetected) Parainfluenza 2 (PCR) Not Detected (NotDetected) Parainfluenza 3 (PCR) Not Detected (NotDetected) Parainfluenza 4 (PCR) Not Detected (NotDetected) RSV (PCR) Not Detected (NotDetected) Entero/Rhino (PCR) Not Detected (NotDetected) 01/05/24 01/05/24 Range/Units 19:28 20:07 WBC (4.8-10.8) K/ul RBC (4.20-5.40) M/uL Hgb (12.0-16.0) g/dl Hct (37.0-47.0) % MCV (80.0-100.0) fL MCH (25.0-34.0) pg MCHC (32.0-36.0) g/dL RDW Std Deviation (36.4-46.3) fL RDW Coeff of Farheen (11.5-14.5) % Plt Count (130-400) K/uL MPV (9.4-12.4) fL Immature Gran % (Auto) % Neut % (Auto) % Lymph % (Auto) % [place] % (Auto) % Eos % (Auto) % Baso % (Auto) % Neut # (Auto) (1.40-6.50) K/uL Lymph # (Auto) (1.20-3.40) K/uL [place] # (Auto) (0.11-0.59) K/uL Eos # (Auto) (0.00-0.50) K/uL Baso # (Auto) (0.00-0.20) K/uL Immature Gran # (Auto) (0.01-0.20) K/uL PT (9.0-12.0) Seconds INR (0.9-1.1) Sodium (136-145) mmol/L Potassium (3.5-5.1) mmol/L Chloride (98-107) mmol/L Carbon Dioxide (21-32) mmol/L Anion Gap (3-11) BUN (6-23) mg/dl Creatinine (0.6-1.2) mg/dl Est Cr Clr Drug Dosing Est GFR ( Amer) ml/min Est GFR (Non-Af Amer) ml/min BUN/Creatinine Ratio (10-20) Glucose (70-99(Fasting)) mg/dl Lactate 1.7 (0.4-2.0) mmol/L Calcium (8.6-10.3) mg/dl Magnesium (1.7-2.4) mg/dl Total Bilirubin (0.2-1.0) mg/dl AST (13-39) U/L ALT (7-52) U/L Alkaline Phosphatase (34-104) U/L Troponin I High Sens (0-14) pg/ml Total Protein (6.0-8.3) gm/dl Albumin (3.4-5.0) gm/dl Globulin (2.5-4.0) gm/dl Albumin/Globulin Ratio (0.9-2) Lipase (11-82) U/L Urine Color Yellow Urine Appearance Clear (Clear) Urine pH 7.0 (4.5-7.5) Ur Specific [place] 1.018 (1.000-1.030) Urine Protein Negative (Negative) Urine Glucose (UA) Negative (Negative) Urine Ketones Negative (Negative) Urine Blood Negative (Negative) Urine Nitrite Negative (Negative) Urine Bilirubin Negative (Negative) Urine Urobilinogen Negative (Negative) Ur Leukocyte Esterase 1+ H (Negative) Urine WBC (Auto) 0-5 (0-5) /hpf Urine RBC (Auto) 0-2 (0-2) /hpf U Hyaline Cast (Auto) 0-2 (0-2) /lpf U Epithel Cells (Auto) 0-2 (0-2) /hpf Urine Bacteria (Auto) 4+ H (None Seen) Adenovirus (PCR) (NotDetected) B. pertussis DNA (PCR) (NotDetected) B.parapertussis DNA PCR (NotDetected) C. pneumoniae DNA (PCR) (NotDetected) Coronavirus OC43 (PCR) (NotDetected) Coronavirus HKU1 (PCR) (NotDetected) Coronavirus 229E (PCR) (NotDetected) SARS-CoV-2 (PCR) (NotDetected) Coronavirus NL63 (PCR) (NotDetected) Human Metapneumovir PCR (NotDetected) Influenza Type A (PCR) (NotDetected) Influenza Type B (PCR) (NotDetected) M. pneumoniae (PCR) (NotDetected) Parainfluenza 1 (PCR) (NotDetected) Parainfluenza 2 (PCR) (NotDetected) Parainfluenza 3 (PCR) (NotDetected) Parainfluenza 4 (PCR) (NotDetected) RSV (PCR) (NotDetected) Entero/Rhino (PCR) (NotDetected) Administered Medications Discontinued Medications Sodium Chloride (Nss) 1,000 mls @ 999 mls/hr IV .Q1H1M ONE Stop: 01/05/24 16:01 Last Infusion: 01/05/24 18:20 Dose: Infused Documented By: Admin: 01/05/24 17:07 Dose: 999 mls/hr Documented By: PRAVEENA Ioversol (Optiray 320 100ml) 91 ml IV ONCE ONE Stop: 01/05/24 17:58 Last Admin: 01/05/24 17:57 Dose: 91 ml Documented By: MARIANA Ondansetron HCl (Ondansetron Inj 2 Mg/Ml 2 Ml Vial) 4 mg IV NOW STA Stop: 01/05/24 15:02 Last Admin: 01/05/24 17:17 Dose: Not Given Documented By: PRAVEENA Imaging Data Radiologist's Impression: Abdomen/Pelvis CT 01/05/24 15:[address] WITH IV CONTRAST CT DOSE: 1414.79 mGy.cm HISTORY: Acute onset abdominal pain with nausea and vomiting abdominal pain; vomiting/diarrhea TECHNIQUE: Multiaxial CT images of the abdomen and pelvis were performed following the IV administration of 91 cc of Optiray, A dose lowering technique was utilized adhering to the principles of ALARA. COMPARISON STUDY: 11/20/2021 FINDINGS: Extensive coronary artery calcifications with cardiomegaly. Moderate right hemidiaphragmatic elevation. No free air. Unremarkable spleen, mildly atrophic pancreas and adrenal glands. Cholecystectomy is likely postsurgical biliary ductal dilation. Unremarkable liver. Patent portal vein. No hydronephrosis. Atrophic left kidney measures up to 6.4 cm. 5 mm nonobstructing calculus of the inferior pole left kidney. No ureteral calculi or hydronephrosis. Mild urinary bladder distention. Severe atherosclerosis of the aorta and branch vessels with resultant high-grade stenosis at the origin of the celiac trunk, superior mesenteric and renal arteries. Areas of severe stenosis noted within the abdominal aorta, notably image 143 series 3 prior. Small hiatal hernia with distal esophageal wall thickening. No bowel obstruction or bowel wall thickening. Colonic diverticulosis. Noninflamed appendix. Postoperative changes of the lumbosacral spine. Chronic T12 and L1 compression deformities with kyphoplasty. Spinal stimulator device is noted. IMPRESSION: 1. No bowel obstruction or bowel wall thickening. 2. Left nephrolithiasis. 3. Colonic diverticulosis. 4. Severe atherosclerosis with high grade stenosis of the infrarenal abdominal aorta and proximal branch vessels. 5. Atrophic left kidney. ACT 112: Negative or not required by law. The above report was generated using voice recognition software. It may contain grammatical, syntax or spelling errors. Electronically signed by: Monty Juarez M.D. 01/05/2024 6:49 PM Discharge Plan Visit Data Chief Complaint: Illness Stated Complaint: ABD PAIN, DIARRHEA, VOMITING ED Provider: Emilia Jones Discharge Problem: Abdominal pain, Acute GI bleeding, Melena Forms Stand Alone Forms: [facility] Prescriptions Prescriptions: No Action pantoprazole [Protonix] 40 mg tablet,delayed release (DR/EC) 40 mg PO QAM aspirin [Ashly Low Dose Aspirin] 81 mg Tablet,Delayed Release (Dr/Ec) 81 mg PO QAM gabapentin 300 mg Capsule 300 mg PO TID atorvastatin 80 mg tablet 80 mg PO DAILY ferrous sulfate 325 mg (65 mg iron) tablet 325 mg PO DAILY clonidine HCl 0.1 mg tablet 0.1 mg BID carvedilol 25 mg tablet 25 mg BID sertraline 25 mg tablet 25 mg PO QAM terazosin 2 mg capsule 4 mg PO HS magnesium oxide 400 mg magnesium Tablet 400 mg PO QAM ascorbic acid (vitamin C) 500 mg Tablet 500 mg PO QAM acetaminophen 500 mg tablet 500 mg PO Q4H PRN (Reason: Pain) amlodipine 2.5 mg Tablet 2.5 mg PO BID levothyroxine 25 mcg Tablet 25 mcg PO QAM furosemide 20 mg Tablet 20 mg PO QAM warfarin 4 mg Tablet 4 mg PO HS cholecalciferol (vitamin D3) [Vitamin D3] 50 mcg (2,000 unit) Capsule 50 mcg PO DAILY tramadol 50 mg tablet 50 mg PO Q6H PRN (Reason: pain, moderate) Qty: 20 0RF oxycodone 5 mg tablet 5 mg PO Q6H PRN (Reason: pain) Qty: 30 0RF Referrals Referrals: Derrek Sparks MD [Primary Care Provider] -
[2024-01-05] MEDS: SODIUM CHLORIDE 0.9% 1,000 ML IV ONE (17:07)
[2024-01-05 17:16] LABS: Alanine Aminotransferase 24 U/L (7-52); Albumin Globulin Ratio 1.4 (0.9-2); Albumin Level 4.6 gm/dl (3.4-5.0); Alkaline Phosphatase 80 U/L (34-104); Anion Gap 11 (3-11); Aspartate Aminotransferase 35 U/L (13-39); BUN Creatinine Ratio 16.7 (10-20); Bilirubin,Total 1.9 mg/dl (0.2-1.0); Blood Urea Nitrogen 20 mg/dl (6-23); Calcium 10.5 mg/dl (8.6-10.3); Carbon Dioxide 25 mmol/L (21-32); Chloride 98 mmol/L (98-107); Est GFR (African American) 49.8 ml/min; Globulin 3.3 gm/dl (2.5-4.0); Glucose 245 mg/dl (70-99(Fasting)); Lipase 32 U/L (11-82); Magnesium 1.8 mg/dl (1.7-2.4); Potassium 3.9 mmol/L (3.5-5.1); Sodium 134 mmol/L (136-145); Total Protein 7.9 gm/dl (6.0-8.3)
[2024-01-05] MEDS: ONDANSETRON INJ 2 MG/ML 2 ML VIAL IV STA (17:17)
[2024-01-05 17:22] LABS: Troponin I High Sensitivity 5.1 pg/ml (0-14)
[2024-01-05 17:25] LABS: INR 2.1 (0.9-1.1); Prothrombin Time 20.9 Seconds (9.0-12.0)
[2024-01-05 17:31] LABS: Basophils # (auto) 0.03 K/uL (0.00-0.20); Basophils % (auto) 0.4 %; Eosinophils # (auto) 0.04 K/uL (0.00-0.50); Eosinophils % (auto) 0.5 %; Hematocrit (blood only) 32.9 % (37.0-47.0); Immature Granulocytes # (auto) 0.02 K/uL (0.01-0.20); Immature Granulocytes % (auto) 0.2 %; Lymphocytes # (auto) 1.73 K/uL (1.20-3.40); Lymphocytes % (auto) 21.1 %; Mean Corpuscular Hgb Conc 33.4 g/dL (32.0-36.0); Mean Corpuscular Volume 101.5 fL (80.0-100.0); Mean Platelet Volume 8.7 fL (9.4-12.4); Monocytes # (auto) 0.35 K/uL (0.11-0.59); Monocytes % (auto) 4.3 %; Neutrophils # (auto) 6.01 K/uL (1.40-6.50); Neutrophils % (auto) 73.5 %; Platelet Count 182 K/uL (130-400); RDW Coefficient of Variation 13.7 % (11.5-14.5); Red Blood Count 3.24 M/uL (4.20-5.40); White Blood Count 8.18 K/ul (4.8-10.8)
[2024-01-05 17:46] LABS: Adenovirus PCR Not Detected (NotDetected); Bordetella parapertussis PCR Not Detected (NotDetected); Bordetella pertussis PCR Not Detected (NotDetected); Chlamydia pneumoniae PCR Not Detected (NotDetected); Coronavirus 229E PCR Not Detected (NotDetected); Coronavirus CoV-2 (COVID19)PCR Not Detected (NotDetected); Coronavirus HKU1 PCR Not Detected (NotDetected); Coronavirus NL63 PCR Not Detected (NotDetected); Coronavirus OC43PCR Not Detected (NotDetected); Human Metapneumovirus PCR Not Detected (NotDetected); Influenza A PCR Not Detected (NotDetected); Influenza B PCR Not Detected (NotDetected); Mycoplasma pneumoniae PCR Not Detected (NotDetected); Parainfluenza Virus 1 PCR Not Detected (NotDetected); Parainfluenza Virus 2 PCR Not Detected (NotDetected); Parainfluenza Virus 3 PCR Not Detected (NotDetected); Parainfluenza Virus 4 PCR Not Detected (NotDetected); Respiratory Syncytial VirusPCR Not Detected (NotDetected); Rhinovirus/Enterovirus PCR Not Detected (NotDetected)
[2024-01-05] MEDS: OPTIRAY 320 100ml IV ONE (17:57)
--- NOTE | 2024-01-05 18:35 | Electrocardiogram Report ---
Test Reason : Blood Pressure : / mmHG Vent. Rate : 077 BPM Atrial Rate : 000 BPM P-R Int : 000 ms QRS Dur : 094 ms QT Int : 426 ms P-R-T Axes : 000 036 049 degrees QTc Int : 482 ms Atrial fibrillation Abnormal ECG When compared with ECG of 06-JAN-2023 13:55, No significant change was found Confirmed by Jim Prieto ([id number]) on 01/05/2024 6:35:16 PM Referred By: Confirmed By:Willem Prieto
--- NOTE | 2024-01-05 18:52 | CT Scan Report ---
ABDOMEN AND PELVIS CT WITH IV CONTRAST CT DOSE: 1414.79 mGy.cm HISTORY: Acute onset abdominal pain with nausea and vomiting abdominal pain; vomiting/diarrhea TECHNIQUE: Multiaxial CT images of the abdomen and pelvis were performed following the IV administrat ion of 91 cc of Optiray, A dose lowering technique was utilized adhering to the principles of ALARA. COMPARISON STUDY: 11/20/2021 FINDINGS: Extensive coronary artery calcifications with cardiomegaly. Moderate right hemidiaphragmati c elevation. No free air. Unremarkable spleen, mildly atrophic pancreas and adrenal glands. Cholecyst ectomy is likely postsurgical biliary ductal dilation. Unremarkable liver. Patent portal vein. No hydronephrosis. Atrophic left kidney measures up to 6.4 cm. 5 mm nonobstructing calculus of the in ferior pole left kidney. No ureteral calculi or hydronephrosis. Mild urinary bladder distention. Eloise re atherosclerosis of the aorta and branch vessels with resultant high-grade stenosis at the origin o f the celiac trunk, superior mesenteric and renal arteries. Areas of severe stenosis noted within the abdominal aorta, notably image 143 series 3 prior. Small hiatal hernia with distal esophageal wall thickening. No bowel obstruction or bowel wall thicke corinne. Colonic diverticulosis. Noninflamed appendix. Postoperative changes of the lumbosacral spine. C hronic T12 and L1 compression deformities with kyphoplasty. Spinal stimulator device is noted. IMPRESSION: 1. No bowel obstruction or bowel wall thickening. 2. Left nephrolithiasis. 3. Colonic diverticulosis. 4. Severe atherosclerosis with high grade stenosis of the infrarenal abdominal aorta and proximal bra nch vessels. 5. Atrophic left kidney. ACT 112: Negative or not required by law. The above report was generated using voice recognition software. It may contain grammatical, syntax o r spelling errors. Electronically signed by: Monty Juarez M.D. 01/05/2024 6:49 PM
[2024-01-05 19:41] LABS: Appearance Urine Clear (Clear); Bacteria Urine Automated 4+ (None Seen); Bilirubin Urine Negative (Negative); Blood Urine Negative (Negative); Cast Urine Automated 0-2 /lpf (0-2); Color Urine Yellow; Epithelial Cell Urine Auto 0-2 /hpf (0-2); Glucose Urine UA Negative (Negative); Ketones Urine Negative (Negative); Leukocyte Esterase Urine 1+ (Negative); Nitrite Urine Negative (Negative); Protein Urine Negative (Negative); RBC Urine Automated 0-2 /hpf (0-2); Specific Gravity Urine 1.018 (1.000-1.030); Urobilinogen Urine Negative (Negative); WBC Urine Automated 0-5 /hpf (0-5)
--- NOTE | 2024-01-05 21:06 | History & Physical Report ---
Date of Service January 05, 2024 Assessment & Plan (1) Abdominal pain: (2) Melena: (3) Permanent atrial fibrillation: (4) HTN (hypertension): (5) Diabetes mellitus, type II: (6) CAD (coronary artery disease): (7) Chronic heart failure with preserved ejection fraction (HFpEF): (8) Rheumatoid arthritis: (9) Hypothyroidism: (10) GERD (gastroesophageal reflux disease): Plan: HPI, ROS, PE, med rec completed by Cindy Green PA-C Assessment and Plan per Dr Parks. See addendum History of Present Illness Chief Complaint: abdominal pain Primary Care Provider: Derrek Sparks MD Patient is 78-year-old female with PMH DM II, HTN, dyslipidemia, PVD, chronic HFpEF, CAD, persistent atrial fibrillation anticoagulated on Coumadin, TIA, chronic anemia (baseline Hgb: 13), RA, hypothyroidism, GERD, ISATU, history of breast cancer s/p chemo & surgery, and others listed below presented to ER with c/o abdominal pain. Patient states for the past 1 to 2 months has been having intermittent abdominal pain. She reports typically occurs approximately once a week and is usually an aching type sensation across to her abdomen with associated nausea, vomiting followed by dry heaves. Also reports will have several loose stools associated with this. Patient reports symptoms usually las t 24 hours and then resolve. Patient states around noon today had sudden onset of abdominal pain across abdomen however this time was more sharp with associated nausea, vomiting. She also reports has had multiple episodes of loose stool that is black in color. She felt chilled today. Has not taken her temperature. Denies any dizziness or syncope. Denies diaphoresis, hematemesis, MAXWELL, neck pain, CP, SOB, palpitations, cough, otalgia, rhinorrhea, paresthesias, extremity weakness, extremity edema, rashes, urinary symptoms. per outpatient chart review: A1c: 9.0 on 10/29/23 Hgb: 13.4 on 06/01/23 08/18/2022 colonoscopy: Poor colon prep, stool entire examined colon. Tattoo seen in transverse colon, post polypectomy scar found at tattoo site 05/16/2018: EGD: Inlet patch. 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 Small hiatal hernia. Very mild thrush 05/31/2018 video capsule study: No abnormality found Allergies Allergy/AdvReac Type Severity Reaction Status Date / Time ABRIL Inhibitors AdvReac Severe hyperkalemi Verified 01/26/23 08:47 a nadolol AdvReac Unknown GI UPSET Verified 01/26/23 08:47 nitroglycerin AdvReac Unknown HEADACHE Verified 01/26/23 08:47 NSAIDS (Non-Steroidal AdvReac Unknown GI UPSET Verified 01/26/23 08:47 Anti-Inflamma metformin AdvReac Diarrhea Verified 01/26/23 10:04 Home Medications Medication Instructions Recorded Confirmed Type aspirin 81 mg tablet,delayed 81 mg PO QAM 04/02/18 01/05/24 History release (Ashly Low Dose Aspirin) pantoprazole 40 mg tablet,delayed 40 mg PO QAM 04/03/20 01/05/24 History release (Protonix) ascorbic acid (vitamin C) 500 mg 500 mg PO QAM 11/20/20 01/05/24 History tablet acetaminophen 500 mg tablet 500 mg PO Q4H PRN Pain 10/02/21 01/05/24 History levothyroxine 25 mcg tablet 25 mcg PO QAM 10/02/21 01/05/24 History atorvastatin 80 mg tablet 80 mg PO DAILY 11/20/21 01/05/24 History ferrous sulfate 325 mg (65 mg 325 mg PO QAM 11/20/21 01/05/24 History iron) tablet carvedilol 25 mg tablet 37.5 mg PO AMPM 11/22/21 01/05/24 History clonidine HCl 0.1 mg tablet 0.1 mg PO AMHS 11/22/21 01/05/24 History sertraline 25 mg tablet 25 mg PO QAM 11/22/21 01/05/24 History terazosin 2 mg capsule 4 mg PO HS 11/22/21 01/05/24 History cholecalciferol (vitamin D3) 50 50 mcg PO DAILY 03/27/22 01/05/24 History mcg (2,000 unit) capsule (Vitamin D3) amlodipine 5 mg tablet 5 mg PO AMHS 01/05/24 01/05/24 History dicyclomine 10 mg capsule 10 mg PO BID PRN Abdominal Pain 01/05/24 01/05/24 History folic acid 1 mg tablet 1 mg PO DAILY 01/05/24 01/05/24 History furosemide 40 mg tablet 40 mg PO QAM 01/05/24 01/05/24 History hydralazine 100 mg tablet 100 mg PO TID 01/05/24 01/05/24 History methotrexate sodium 2.5 mg tablet 15 mg PO WK 01/05/24 01/05/24 History pregabalin 25 mg capsule 25 mg PO AMHS 01/05/24 01/05/24 History spironolactone 25 mg tablet 25 mg PO QAM 01/05/24 01/05/24 History warfarin 4 mg tablet (Estella) See Rx Instructions .Route .COMPLEX 01/05/24 01/05/24 History Past Med/Surg History Problem List Hypothyroidism Chronic heart failure with preserved ejection fraction (HFpEF) Permanent atrial fibrillation Melena (Acute) Acute GI bleeding (Acute) Abdominal pain (Acute) Hypertensive emergency 2017 Rheumatoid arthritis PAD (peripheral artery disease) Postoperative back pain (Acute) Compression fracture of L1 lumbar vertebra Back pain (Acute) Venous ulcer-leg syndrome, left Abnormal CT of the abdomen Postlaminectomy syndrome of lumbar region Hematoma following procedure Blood loss anemia Encounter for pre-operative examination Postoperative hematoma (Acute) Postlaminectomy syndrome of lumbar region Anemia Hgb 10-13 over past year PAF (paroxysmal atrial fibrillation) post operative, follows with [facility] cardio, on warfarin Depression CAD (coronary artery disease) 1991 - PTCA/PCI to ramus intermedius complicated by spiral dissection non-obstructive per 2016 cardiac cath Follows with [facility] cardiology Diabetes mellitus, type II no longer on medication-waiting to hear back from about a new medicine as the Jardiance was too expensive GERD (gastroesophageal reflux disease) controlled, stable per pt HTN (hypertension) (Acute) controlled, stable per pt Dyslipidemia IBS (irritable bowel syndrome) History of breast cancer Right breast- RUE limb restriction* Status post renal artery angioplasty 1994 History of bilateral knee arthroplasty Left (1995) x2 , right (2005) History of cholecystectomy 1998 History of modified radical mastectomy of right breast 2010 H/O repair of right rotator cuff 2012 Medical History Limb alert care status RUE limb restriction Aortic stenosis "Mild" per 12/2022 echo Sleep apnea no treatment History of COVID-19 x 01/2020 and 05/2020 while in [place] for rehab, denies residual issues Myocardial Infarction 1994, had a balloon angioplasty, [facility] Jung MRSA infection Hx-more than 1 year ago Atrial fibrillation with RVR f/u ruby thomas PAD (peripheral artery disease) severe right brachiocephalic stenosis and moderate to severe abdominal aortic stenosis- under surveillance by cardiovascular-on warfarin Chronic back pain LLE radiculopathy Rheumatoid arthritis Hiatal hernia Hypothyroidism CVA (cerebral vascular accident) 2016, residual unsteady, left sided weakness Surgical History History of surgery on left wrist "put a plate in for the arthritis" History of surgery Hematoma evacuation, stimulator check (11/20/21): Grade 1 view, MAC#3, ETT 7.0 at [facility]. No issues noted per post-op anesthesia progress note. S/P insertion of spinal cord stimulator placed in 2021, [facility]>has had it checked multiple times History of fracture of nasal bone no sx. History of shoulder replacement R Status post lumbar surgery History of back surgery x3, 2019 History of cardiac cath 2017 ([facility]) > no stents History of colonoscopy Family History Daughter Family history of reaction to anesthesia SLOW TO WAKE UP Mother Family history of diabetes mellitus Other Heart disease Hypertension Social History Smoking Status: Former smoker Second Hand Exposure: No; Do You Dip or Chew Tobacco: No; Hx Alcohol Use: No Hx Substance Use: No Preferred Language: Indian Communication Ability: Effective Visual Impairment: No Limitations Hearing Ability: Normal Heel Trimmer Required: No Beliefs That Will Affect Care: None marital status: Current Living Situation: Spouse current occupational status: retired Feels Safe at Home: Yes Assistive Devices: Cane, Denture - Upper, Denture - Lower and Glasses Review of Systems Review of Systems: All systems reviewed & are unremarkable except as noted in HPI & below Physical Exam Physical Exam: General: no distress currently, overweight elderly female Head: normocephalic, atraumatic Eyes: conjunctiva non-injected, anicteric ENT: normal inspection external ears, nose, mucous membranes moist Neck: supple, trachea midline Lungs: clear, no respiratory distress, no wheezing/rhonchi/rales CV: RRR, no murmur, no pretibial edema Abd: normal BS, soft, +tender to palpation across RUQ, epigastric, LUQ and RLQ currently Ext: no cyanosis, no calf tenderness Neuro: A&O x 3, no focal deficits noted, normal affect Skin: warm, dry Results & Data Results & Data Vital Signs (Past 12 Hours) Vital Signs Temp Pulse Pulse Resp BP BP Pulse Ox 01/05/24 18:13 89 18 180/98 H 98 01/05/24 17:10 78 18 149/83 H 100 01/05/24 16:49 78 01/05/24 15:05 36.6 C 77 14 106/67 98 O2 Del Method 01/05/24 18:13 Room Air 01/05/24 17:10 Room Air 01/05/24 16:49 01/05/24 15:05 Room Air Laboratory Results Short CBC 01/05/24 Range/Units 17:14 WBC 8.18 (4.8-10.8) K/ul Hgb 11.0 L (12.0-16.0) g/dl Hct 32.9 L (37.0-47.0) % Plt Count 182 (130-400) K/uL BMP 01/05/24 16:32 Sodium 134 L Potassium 3.9 Chloride 98 Carbon Dioxide 25 BUN 20 Creatinine 1.20 Glucose 245 H Calcium 10.5 H Liver Function 01/05/24 Range/Units 16:32 Total Bilirubin 1.9 H (0.2-1.0) mg/dl AST 35 (13-39) U/L ALT 24 (7-52) U/L Alkaline Phosphatase 80 (34-104) U/L Albumin 4.6 (3.4-5.0) gm/dl Urine 01/05/24 Range/Units 19:28 Urine Color Yellow Urine Appearance Clear (Clear) Urine pH 7.0 (4.5-7.5) Ur Specific Porter 1.018 (1.000-1.030) Urine Protein Negative (Negative) Urine Glucose (UA) Negative (Negative) Diagnostic Findings Abdomen/Pelvis CT 01/05/24 15:[address] WITH IV CONTRAST CT DOSE: 1414.79 mGy.cm HISTORY: Acute onset abdominal pain with nausea and vomiting abdominal pain; vomiting/diarrhea TECHNIQUE: Multiaxial CT images of the abdomen and pelvis were performed fol lowing the IV administration of 91 cc of Optiray, A dose lowering technique was utilized adhering to the principles of ALARA. COMPARISON STUDY: 11/20/2021 FINDINGS: Extensive coronary artery calcifications with cardiomegaly. Moderate right hemidiaphragmatic elevation. No free air. Unremarkable spleen, mildly atrophic pancreas and adrenal glands. Cholecystectomy is likely postsurgical biliary ductal dilation. Unremarkable liver. Patent portal vein. No hydronephrosis. Atrophic left kidney measures up to 6.4 cm. 5 mm nonobstructing calculus of the inferior pole left kidney. No ureteral calculi or hydronephrosis. Mild urinary bladder distention. Severe atherosclerosis of the aorta and branch vessels with resultant high-grade stenosis at the origin of the celiac trunk, superior mesenteric and renal arteries. Areas of severe stenosis noted within the abdominal aorta, notably image 143 series 3 prior. Small hiatal hernia with distal esophageal wall thickening. No bowel obstruction or bowel wall thickening. Colonic diverticulosis. Noninflamed appendix. Postoperative changes of the lumbosacral spine. Chronic T12 and L1 compression deformities with kyphoplasty. Spinal stimulator device is noted. IMPRESSION: 1. No bowel obstruction or bowel wall thickening. 2. Left nephrolithiasis. 3. Colonic diverticulosis. 4. Severe atherosclerosis with high grade stenosis of the infrarenal abdominal aorta and proximal branch vessels. 5. Atrophic left kidney. ACT 112: Negative or not required by law. The above report was generated using voice recognition software. It may contain grammatical, syntax or spelling errors. Electronically signed by: Monty Juarez M.D. 01/05/2024 6:49 PM Supervising Physician Co-Signing Physician Notes IM ATTENDING : Patient seen and examined. History obtained from patient and records. Concur with salient points upon review of preceding documentation by Ms. Cindy Green PA-C. I take responsibility for plan of care below. FINAL ASSESSMENT AND PLAN as follows : UGIB History of Cullen's esophagus History A-fib on Coumadin, INR therapeutic Hypertension, stable Chronic diastolic heart failure (EF 64%, TTE 2022), patient on the dry side CAD/PVD/TIA as per records Valvular heart disease (mild MR/TR/, TTE 2022) Mild ISATU RA on immunosuppression Right breast cancer status post surgery, chemotherapy DM2, on oral medications, suboptimal control as of recent hemoglobin A1c of 9 last August 2023 Hypothyroidism, euthyroid as of recent outpatient TSH Past tobacco abuse Medical telemetry IV PPI Hold antiplatelet and Coumadin for now Vitamin K 1 dose follow H&H, Transfuse PRBC to maintain hemoglobin of at least 8 given vascular history GI consult re: UGIB N.p.o. until patient seen by GI in anticipation of endoscopy Basal bolus insulin adjusted for n.p.o. status, ISS BG goal 1 10-1 40 DVT prophylaxis. SCDs if INR less than 2 while Coumadin on hold Full code Text document was generated using [employer] voice recognition software. It may contain grammatical or spelling errors. Kindly contact undersigned for clarification of any documentation item in question. (4) HTN (hypertension) Hypertension type: unspecified Qualified Code(s): I10 - Essential (primary) hypertension
[2024-01-05] MEDS: FAMOTIDINE 20MG IV PUSH 20 MG/5 ML SYR IV STA (21:12)
[2024-01-05] MEDS: PANTOprazole 80 MG in DEXTROSE 5% 100 ML IV STA (21:12)
[2024-01-05 21:50] LABS: Hemoglobin 11.7 g/dl (12.0-16.0)
[2024-01-05] MEDS: carvediloL 6.25 MG TAB PO STA (22:56)
[2024-01-05] MEDS: PHYTONADIONE 5 MG in DEXTROSE 5% 50 ML IV ONE (22:57)
[2024-01-05] MEDS ORDERED: oxyCODONE HCL IR 5 MG TAB (IMMEDIATE RELEASE) PO PRN (23:10)
[2024-01-05] MEDS ORDERED: PROMETHAZINE HCL 6.25 MG in SODIUM CHLORIDE 0.9% 50 ML IV PRN (23:10)
[2024-01-05] MEDS ORDERED: GLUCOSE 10 TAB/TUBE PO PRN (23:30)
[2024-01-05] MEDS ORDERED: CARBOHYDRATES FOR HYPOGLYCEMIA PO PRN (23:30)
[2024-01-05] MEDS ORDERED: GLUCOSE 40% GEL 15 GM TUBE PO PRN (23:30)
[2024-01-05] MEDS ORDERED: DEXTROSE 50% 50 ML SYRINGE IV PRN (23:30)
[2024-01-05] MEDS ORDERED: GLUCAGON FOR INJ 1 MG VIAL SQ PRN (23:30)
[2024-01-06] MEDS: cloNIDine HCL 0.1 MG TAB PO SCH (00:07)
[2024-01-06] MEDS: hydrALAZINE TAB 50 MG TAB PO SCH (00:29)
[2024-01-06] MEDS: LANTUS PER UNIT CHARGE SQ SCH ×2 (00:40→20:54)
[2024-01-06] MEDS: INSULIN ASPART PER UNIT CHARGE SC SCH (00:41)
[2024-01-06] MEDS: LEVOTHYROXINE SODIUM 25 MCG TABLET PO SCH (05:57)
[2024-01-06 06:46] LABS: Basophils # (auto) 0.04 K/uL (0.00-0.20); Basophils % (auto) 0.5 %; Eosinophils # (auto) 0.07 K/uL (0.00-0.50); Eosinophils % (auto) 0.9 %; Hematocrit (blood only) 32.3 % (37.0-47.0); Hemoglobin 10.8 g/dl (12.0-16.0); Immature Granulocytes % (auto) 1.3 %; Lymphocytes # (auto) 1.61 K/uL (1.20-3.40); Lymphocytes % (auto) 21.1 %; Mean Corpuscular Hemoglobin 34.4 pg (25.0-34.0); Mean Corpuscular Hgb Conc 33.4 g/dL (32.0-36.0); Mean Corpuscular Volume 102.9 fL (80.0-100.0); Mean Platelet Volume 8.9 fL (9.4-12.4); Monocytes # (auto) 0.23 K/uL (0.11-0.59); Neutrophils # (auto) 5.57 K/uL (1.40-6.50); Neutrophils % (auto) 73.2 %; Platelet Count 186 K/uL (130-400); RDW Coefficient of Variation 13.4 % (11.5-14.5); RDW Standard Deviation 49.2 fL (36.4-46.3); Red Blood Count 3.14 M/uL (4.20-5.40); White Blood Count 7.62 K/ul (4.8-10.8)
[2024-01-06 07:03] LABS: INR 1.4 (0.9-1.1); Prothrombin Time 15.2 Seconds (9.0-12.0)
[2024-01-06 07:06] LABS: BUN Creatinine Ratio 16.3 (10-20); Calcium 9.1 mg/dl (8.6-10.3); Creatinine Clr Calc Pharmacy 60.1 ml/min; Est GFR (African American) 68.6 ml/min; Est GFR (Non-African American) 59.2 ml/min; Potassium 3.4 mmol/L (3.5-5.1)
[2024-01-06] MEDS: carvediloL 12.5 MG TAB PO SCH (08:07)
[2024-01-06] MEDS: PANTOprazole 40 MG in SYRINGE 0 ML IV SCH (08:07)
[2024-01-06] MEDS: FOLIC ACID 1 MG TAB PO SCH (08:08)
[2024-01-06] MEDS: SERTRALINE HCL 50 MG TABLET PO SCH (08:08)
[2024-01-06] MEDS: ATORVASTATIN 40 MG TAB PO SCH (08:08)
[2024-01-06] MEDS: amLODIPine BESYLATE 5 MG TAB PO SCH (08:08)
[2024-01-06] MEDS: FERROUS SULFATE 325 MG TAB PO SCH (08:08)
[2024-01-06] MEDS: PREGABALIN 25 MG CAP PO SCH (08:10)
--- NOTE | 2024-01-06 08:52 | Hospitalist Progress Note ---
Date of Service January 06, 2024 Assessment & Plan (1) Abdominal pain: (2) Melena: (3) Permanent atrial fibrillation: (4) HTN (hypertension): (5) Diabetes mellitus, type II: (6) CAD (coronary artery disease): (7) Chronic heart failure with preserved ejection fraction (HFpEF): (8) Rheumatoid arthritis: (9) Hypothyroidism: (10) GERD (gastroesophageal reflux disease): Plan Patient is 78-year-old female with PMHx significant for DM II, HTN, dyslipidemia, PVD, chronic HFpEF, CAD, persistent atrial fibrillation anticoagulated on Coumadin, TIA, chronic anemia (baseline Hgb: 13), RA, hypothyroidism, GERD, ISATU, history of breast cancer s/p chemo & surgery who presented to the ER with concern for abdominal pain and black stools. Melena Possible GI Bleed Abdominal Pain Anemia, macrocytic Pt presenting with abdominal pain and black stools Hgb trend of 11.0 to 11.7 to 10.8 on admission, was 13.2 a year ago MCV macrocytic FOBT pending Anemia panel pending- folate and b12 levels given macrocytosis, iron panel and ferritin Pt takes daily warfarin, received Vit K on admission for reversal, holding home warfarin at this time CT abd pelvis noting no possible cause holding home lasix and spironolactone in setting of possible GI bleed Continue IV ppi BID Continue home iron and folate supplements at this time GI consulted, appreciate recs UTI UA suggestive of infection Urine Cx growing gram negative bacilli currently Blood Cx x 2 ordered given elevated lactate on admission IV rocephin Follow cultures Elevated lactate Noted on admission, downtrended after fluids Likely in setting of above (infection, bleed) Improved Hypokalemia Replete as needed Subtherapeutic INR INR currently not at goal of 2-3 received Vit K on admission for reversal, holding home warfarin at this time Continue to monitor INR daily Resume warfarin as soon as able Abdominal Aorta Stenosis, high grade CT abd/pelvis noting "severe atherosclerosis with high grade stenosis of the infrarenal abdominal aorta and proximal branch vessels." ? cause of abdominal pain Consider Vascular Surgery consult Atrophic Left Kidney Left Nephrolithiasis Stable PCP followup, consider outpt Urology followup Elevated bilirubin Appears chronic Stable Atrial Fibrillation On Coreg and warfarin Warfarin currently on hold as above Resume as able CHF Chronic diastolic heart failure (EF 64%, TTE 2022) On spironolactone and Lasix Currently on hold in setting of GI bleed Resume as soon as able DMII Hyperglycemia noted AM [id number] ISS while hospitalized Not on home meds currently Continue other home meds as ordered DVT prophylaxis: warfarin currently on hold, follow INR Diet: currently NPO for possible procedure Dispo: PT/OT ordered for further recs Admission and Anticipated Discharge Date Admission Date: January 05, 2024 Subjective pt was seen with at bedside. States she just feels tired. Asking about going home. Review of Systems Review of Systems: All systems reviewed & are unremarkable except as noted in Subjective Physical Exam Physical Exam: General: Alert, oriented. No acute distress Psych: Appropriate mood and affect Neuro: weak HEENT: NC/AT Chest: noted chest wall deformity CV: RRR Resp: Breath sounds clear bilaterally, no increased effort of breathing Abdomen: Soft, nontender Extremities: No edema in lower extremities bilaterally. Results & Data Results & Data Vital Signs (Past 12 Hours) Vital Signs Temp Pulse Pulse Resp BP BP Pulse Ox 01/06/24 07:18 36.8 C 92 H 16 129/72 97 01/06/24 07:00 66 01/06/24 04:20 01/06/24 04:05 36.8 C 91 H 18 132/69 97 01/06/24 03:36 82 130/67 96 01/05/24 23:57 01/05/24 23:09 70 16 143/82 H 95 01/05/24 22:00 80 20 174/106 H 98 01/05/24 21:06 94 H 23 130/71 99 01/05/24 21:01 78 Pulse Ox O2 Del Method O2 Del Method 01/06/24 07:18 Room Air 01/06/24 07:00 01/06/24 04:20 Room Air 01/06/24 04:05 Room Air 01/06/24 03:36 01/05/24 23:57 95 Room Air 01/05/24 23:09 01/05/24 22:00 01/05/24 21:06 01/05/24 21:01 Diagnostic Findings Abdomen/Pelvis CT 01/05/24 15:[address] WITH IV CONTRAST CT DOSE: 1414.79 mGy.cm HISTORY: Acute onset abdominal pain with nausea and vomiting abdominal pain; vomiting/diarrhea TECHNIQUE: Multiaxial CT images of the abdomen and pelvis were performed follow ing the IV administration of 91 cc of Optiray, A dose lowering technique was utilized adhering to the principles of ALARA. COMPARISON STUDY: 11/20/2021 FINDINGS: Extensive coronary artery calcifications with cardiomegaly. Moderate right hemidiaphragmatic elevation. No free air. Unremarkable spleen, mildly atrophic pancreas and adrenal glands. Cholecystectomy is likely postsurgical biliary ductal dilation. Unremarkable liver. Patent portal vein. No hydronephrosis. Atrophic left kidney measures up to 6.4 cm. 5 mm nonobstructing calculus of the inferior pole left kidney. No ureteral calculi or hydronephrosis. Mild urinary bladder distention. Severe atherosclerosis of the aorta and branch vessels with resultant high-grade stenosis at the origin of the celiac trunk, superior mesenteric and renal arteries. Areas of severe stenosis noted within the abdominal aorta, notably image 143 series 3 prior. Small hiatal hernia with distal esophageal wall thickening. No bowel obstruction or bowel wall thickening. Colonic diverticulosis. Noninflamed appendix. Postoperative changes of the lumbosacral spine. Chronic T12 and L1 compression deformities with kyphoplasty. Spinal stimulator device is noted. IMPRESSION: 1. No bowel obstruction or bowel wall thickening. 2. Left nephrolithiasis. 3. Colonic diverticulosis. 4. Severe atherosclerosis with high grade stenosis of the infrarenal abdominal aorta and proximal branch vessels. 5. Atrophic left kidney. ACT 112: Negative or not required by law. The above report was generated using voice recognition software. It may contain grammatical, syntax or spelling errors. Electronically signed by: Monty Juarez M.D. 01/05/2024 6:49 PM (4) HTN (hypertension) Hypertension type: unspecified Qualified Code(s): I10 - Essential (primary) hypertension
[2024-01-06] MEDS: POTASSIUM CHLORIDE CRTAB 20 MEQ TABCR PO STA (09:25)
[2024-01-06] MEDS: cefTRIAXone SODIUM 2,000 MG/50 ML BAG IV SCH (09:38)
[2024-01-06 11:18] LABS: Ferritin 225.3 ng/ml (8-388)
[2024-01-06 11:24] LABS: Folate (Folic Acid),Ser orPlas > 22.30 ng/ml (>5.38)
--- NOTE | 2024-01-06 11:24 | Gastrointestinal Consultation ---
<Statement entered by Janet Ortiz MD - 01/06/24 16:01> I have examined the patient, reviewed the History & Physical and in the interval since the performance of the History & Physical I have noted the following changes of clinical significance: no changes noted. I agree with the documentation provided by RPATEEK Crespo with no additional comments. Patient was offered an endoscopic evaluation given her report of black stools and RLQ pain but she declined unless her symptoms persist. Recommend she trial senna 1-2 tabs or a cup of senna tea in the evening as a bowel regimen given that her stool is too soft to maintain continence when she takes mirlax or colace. Date of Consultation January 06, 2024 Assessment & Plan (1) Melena: (2) Anemia: Plan Patient admitted with complaints of abdominal pain over several weeks. she also endorses constipation. she has darker stools but does use oral iron. No bowel movements since admission. This does not seem to be an active GI bleed. I suspect that her nausea, vomiting, and abdominal pain are secondary to constipation issues. - start miralax 17gm daily. can titrate up to TID as needed. - continue with protonix 40mg IV bid. - follow hgb/hct and transfuse as needed. - patient is not interested in any endoscopic evaluation at this time. - she should follow up with her primary GI team on discharge. History of Present Illness Reason for Consultation: UGIB Requesting Physician: Glen Parks MD Attending Physician: Josephine Santoro MD History of Present Illness Patient is a 78 year old female with PMH DM II, HTN, dyslipidemia, PVD, chronic HFpEF, CAD, persistent atrial fibrillation anticoagulated on Coumadin, TIA, chronic anemia (baseline Hgb: 13), RA, hypothyroidism, GERD, ISATU, history of breast cancer s/p chemo & surgery, and presented to the ED with complaints of abdominal pain that has come and gone over the past several weeks. She reports typically the pain occurs approximately once a week and is usually an aching type sensation across to her abdomen with associated nausea, vomiting followed by dry heaves. Also reports will have several loose stools associated with this. Patient reports symptoms usually last 24 hours and then resolve. She also reports has had multiple episodes of loose stool that is black in color and has also been ongoing for several months. she tells me that she tends to skip several days between bowel movements and then has the darker stools. she does not use anything regularly for constipation. she tells me she has not moved her bowels since she has been admitted. In ED she had a rectal exam with dark stool that was heme positive. she uses oral iron as an outpatient. CT 01/04 No bowel obstruction or bowel wall thickening. Left nephrolithiasis. Colonic diverticulosis. Severe atherosclerosis with high grade stenosis of the infrarenal abdominal aorta and proximal branch vessels. Atrophic left kidney. 01/05/24 hgb 11 and then 11.7. INR 2.1 01/06/24 hgb 10.8 Per chart has had prior GI work up at [facility] GI: 08/18/2022 colonoscopy: Poor colon prep, stool entire examined colon. Tattoo seen in transverse colon, post polypectomy scar found at tattoo site 05/16/2018: EGD: Inlet patch. 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 Small hiatal hernia. Very mild thrush 05/31/2018 video capsule study: No abnormality found Allergies Allergy/AdvReac Type Severity Reaction Status Date / Time ABRIL Inhibitors AdvReac Severe hyperkalemi Verified 01/26/23 08:47 a nadolol AdvReac Unknown GI UPSET Verified 01/26/23 08:47 nitroglycerin AdvReac Unknown HEADACHE Verified 01/26/23 08:47 NSAIDS (Non-Steroidal AdvReac Unknown GI UPSET Verified 01/26/23 08:47 Anti-Inflamma metformin AdvReac Diarrhea Verified 01/26/23 10:04 Home Medications Medication Instructions Recorded Confirmed Type aspirin 81 mg tablet,delayed 81 mg PO QAM 04/02/18 01/05/24 History release (Ashly Low Dose Aspirin) pantoprazole 40 mg tablet,delayed 40 mg PO QAM 04/03/20 01/05/24 History release (Protonix) ascorbic acid (vitamin C) 500 mg 500 mg PO QAM 11/20/20 01/05/24 History tablet acetaminophen 500 mg tablet 500 mg PO Q4H PRN Pain 10/02/21 01/05/24 History levothyroxine 25 mcg tablet 25 mcg PO QAM 10/02/21 01/05/24 History atorvastatin 80 mg tablet 80 mg PO DAILY 11/20/21 01/05/24 History ferrous sulfate 325 mg (65 mg 325 mg PO QAM 11/20/21 01/05/24 History iron) tablet carvedilol 25 mg tablet 37.5 mg PO AMPM 11/22/21 01/05/24 History clonidine HCl 0.1 mg tablet 0.1 mg PO AMHS 11/22/21 01/05/24 History sertraline 25 mg tablet 25 mg PO QAM 11/22/21 01/05/24 History terazosin 2 mg capsule 4 mg PO HS 11/22/21 01/05/24 History cholecalciferol (vitamin D3) 50 50 mcg PO DAILY 03/27/22 01/05/24 History mcg (2,000 unit) capsule (Vitamin D3) amlodipine 5 mg tablet 5 mg PO AMHS 01/05/24 01/05/24 History dicyclomine 10 mg capsule 10 mg PO BID PRN Abdominal Pain 01/05/24 01/05/24 History folic acid 1 mg tablet 1 mg PO DAILY 01/05/24 01/05/24 History furosemide 40 mg tablet 40 mg PO QAM 01/05/24 01/05/24 History hydralazine 100 mg tablet 100 mg PO TID 01/05/24 01/05/24 History methotrexate sodium 2.5 mg tablet 15 mg PO WK 01/05/24 01/05/24 History pregabalin 25 mg capsule 25 mg PO AMHS 01/05/24 01/05/24 History spironolactone 25 mg tablet 25 mg PO QAM 01/05/24 01/05/24 History warfarin 4 mg tablet (Jantoven) See Rx Instructions .Route .COMPLEX 01/05/24 01/05/24 History Patient History Medical History Limb alert care status RUE limb restriction Aortic stenosis "Mild" per 12/2022 echo Sleep apnea no treatment History of COVID-19 x 01/2020 and 05/2020 while in [place] for rehab, denies residual issues Myocardial Infarction 1994, had a balloon angioplasty, [facility] MRSA infection Hx-more than 1 year ago Atrial fibrillation with RVR f/u [facility] PAD (peripheral artery disease) severe right brachiocephalic stenosis and moderate to severe abdominal aortic stenosis- under surveillance by cardiovascular-on warfarin Chronic back pain LLE radiculopathy Rheumatoid arthritis Hiatal hernia Hypothyroidism CVA (cerebral vascular accident) 2017, residual unsteady, left sided weakness Surgical History History of surgery on left wrist "put a plate in for the arthritis" History of surgery Hematoma evacuation, stimulator check (11/20/21): Grade 1 view, MAC#3, ETT 7.0 at [facility]. No issues noted per post-op anesthesia progress note. S/P insertion of spinal cord stimulator placed in 2021, [facility]>has had it checked multiple times History of fracture of nasal bone no sx. History of shoulder replacement R Status post lumbar surgery History of back surgery x3, 2019 History of cardiac cath 2017 ([facility]) > no stents History of colonoscopy Family History Daughter Family history of reaction to anesthesia SLOW TO WAKE UP Mother Family history of diabetes mellitus Other Heart disease Hypertension Social History Smoking Status: Former smoker Second Hand Exposure: No; Do You Dip or Chew Tobacco: No; Hx Alcohol Use: No Hx Substance Use: No Preferred Language: Nigerien Communication Ability: Effective Visual Impairment: No Limitations Hearing Ability: Normal Trouble Operator Required: No Beliefs That Will Affect Care: None marital status: Current Living Situation: Spouse current occupational status: retired Feels Safe at Home: Yes Assistive Devices: Cane, Denture - Upper, Denture - Lower and Glasses Review of Systems Review of Systems: All systems reviewed & are unremarkable except as noted in HPI & below Physical Exam Constitutional: WD/WN, vitals as above Respiratory: normal respiratory effort, lungs clear to auscultation Cardiovascular: RRR, no murmur, no edema Gastrointestinal (Abdomen): normal bowel sounds, soft, nontender, no hepatosplenomegaly Psychiatric: Orientation: alert and oriented x 3 Affect: euthymic affect Results & Data Vital Signs (Past 12 Hours) Vital Signs Temp Pulse Pulse Resp BP BP BP 01/06/24 11:13 99.0 F 86 18 116/65 01/06/24 08:00 01/06/24 07:18 98.2 F 92 H 16 129/72 01/06/24 07:00 66 01/06/24 04:20 01/06/24 04:05 98.2 F 91 H 18 132/69 01/06/24 03:36 82 130/67 01/05/24 23:57 Pulse Ox Pulse Ox O2 Del Method O2 Del Method 01/06/24 11:13 97 Room Air 01/06/24 08:00 Room Air 01/06/24 07:18 97 Room Air 01/06/24 07:00 01/06/24 04:20 Room Air 01/06/24 04:05 97 Room Air 01/06/24 03:36 96 01/05/24 23:57 95 Room Air Coding Level of Care Code 18659 INT INP/OBS CARE 2/55MIN Diagnoses Melena K92.1 Anemia D64.9
[2024-01-06 11:25] LABS: Vitamin B12 > 1500 pg/ml (180-914)
[2024-01-06] MEDS: POLYETHYLENE (MIRALAX) 17 GM PACK PO SCH (12:03)
--- OUTSIDE RECORDS SUMMARY | 2024-01-06 14:18 | External Medical Summary | Summary of Care ---
Author Name Unknown Organization [facility] Address [address] [place] [address] Phone [phone] Care Team Providers Care Water Taxi Ferry Operator Name Role Phone Derrek Sparks MD Primary Care Provider [phone] Reason for Visit * Reason Comments eRx-Medication Refill Encounter Details Date Type Department Care Team (Late st Contact Info) Description 01/03/2024 Refill [facility] [address] [place] [address] Derrek Sparks MD [address] [place] [address] Abdominal cramps Allergies Active Allergy Reactions Criticality Noted Date Comments Tello Inhibitors 05/08/2021 Hyperkalemia resulting in 2 hospitalizations Metformin Diarrhea 11/05/2022 Nadolol Itching 03/17/1999 Corgard itchy Nitroglycerin Other (Please comment) 02/09/2011 Headache that is only relieved with Morphine. Nsaids Nausea/vomiting 03/17/1999 relafen documented as of this encounter (statuses as of 01/04/2024) Medications Medication Sig Dispensed Refills Start Date End Date Status ONETOUCH ULTRASOFT LANCETS MISCIndications:DM type 2 with diabetic peripheral neuropathy (HCC) Use to check blood sugars daily as directed E11.9 1 Box Dosing Unit 11 12/16/2018 Active Aspirin 81 MG TabletIndications: in am Take 1 Tablet by mouth in the morning. Active Acetaminophen 500 MG Oral Capsule Take 1 Capsule by mouth every 4 hours as needed. Active [employer] Cleansing Enema Rectal Enema Administer into the rectum daily as needed for Constipation. Active Magnesium Hydroxide 400 MG/5ML Oral Suspension Take by mouth daily as needed for Constipation. Active Vitamin C 500 MG Oral Tablet (Ascorbic Acid) Take 1 Tablet by mouth in the morning. Active Iron (Ferrous Sulfate) 325 (65 Fe) MG Oral TabletIndications: 1 tablet in am Take 1 Tablet by mouth in the morning. 07/22/2020 Active [employer] Verio w/Device KitIndications:DM type 2 with diabetic peripheral neuropathy (HCC) Use to check blood sugars daily as directed E11.9 1 Kit 10/10/2020 Active [employer] Verio In Vitro Strip (Glucose Blood)Indications: DM type 2 with diabetic peripheral neuropathy (HCC) Use to check blood sugars twice daily as directed Dx E11.9 200 Strip 3 10/10/2020 Active Cholecalciferol 50 MCG (2000 UT) Oral Capsule DAILY 03/27/2022 Active Atorvastatin Calcium 80 MG Oral Tablet (Lipitor) Take 1 Tablet by mouth in the morning. 100 Tablet 3 01/07/2023 Active Carvedilol 25 MG Oral Tablet (Coreg)Indications :Coronary artery disease involving [place] coronary artery of [place] heart without angina pectoris,HTN, goal below 140/90 Take 1.5 Tablets by mouth 2 times a day with morning and evening meals. 10 Tablet 3 05/29/2023 Active Levothyroxine Sodium 25 MCG Oral Tablet (Levoxyl) TAKE 1 TABLET BY MOUTH EVERY MORNING. AT LEAST 30 MINUTES PRIOR TO BREAKFAST OR OTHER MEDICATIONS 90 Tablet 3 06/07/2023 Active Pantoprazole Sodium 40 MG Oral Tablet Delayed Release (Protonix) TAKE ONE TABLET BY MOUTH DAILY 90 Tablet 3 07/01/2023 Active Furosemide 40 MG Oral Tablet (Lasix)Indications :HTN, goal below 140/90 Take 1 Tablet by mouth in the morning. 90 Tablet 3 07/02/2023 Active Terazosin HCl 2 MG Oral CapsuleIndications :HTN, goal below 140/80,Dizziness TAKE 2 CAPSULES BY MOUTH AT ONCE DAILY AT BEDTIME. 180 Capsule 3 07/30/2023 Active hydrALAZINE HCl 100 MG Oral TabletIndications: HTN, goal below 140/90 TAKE 1 TABLET BY MOUTH IN THE MORNING AND 1 TABLET AT NOON AND 1 TABLET BEFORE BEDTIME 270 Tablet 3 08/10/2023 Active Spironolactone 25 MG Oral Tablet (Aldactone)Indicat ions:HTN, goal below 130/80,Chronic diastolic congestive heart failure (HCC),Persistent atrial fibrillation (HCC) Take 1 Tablet by mouth in the morning. 90 Tablet 3 08/30/2023 Active cloNIDine HCl 0.1 MG Oral Tablet (Catapres)Indicati ons:HTN, goal below 140/80 TAKE ONE TABLET BY MOUTH IN THE MORNING AND ONE BEFORE BEDTIME 180 Tablet 3 11/08/2023 Active amLODIPine Besylate 5 MG Oral Tablet (Norvasc)Indicatio ns:Resistant hypertension,HTN, goal below 140/90,Longstandin g persistent atrial fibrillation (HCC),Atherosclero sis of aorta (HCC) TAKE 1 TABLET BY MOUTH TWICE DAILY EVERY MORNING AND BEFORE BEDTIME 180 Tablet 1 11/08/2023 Active Warfarin Sodium 4 MG Oral Tablet (Jantoven) TAKE 1 TO 1& 1/2 TABLETS BY MOUTH EVERY DAY OR DIRECTED BY COUMADIN CLINIC 135 Tablet 1 11/26/2023 Active Methotrexate 2.5 MG Oral Tablet Take 6 Tablets by mouth once a week. 30 Tablet 3 12/08/2023 Active Folic Acid 1 MG Oral Tablet Take 1 Tablet by mouth in the morning. 30 Tablet 5 12/08/2023 Active Sertraline HCl 25 MG Oral Tablet (Zoloft)Indication s:Major depression single episode, in partial remission (HCC) TAKE 1 TABLET BY MOUTH ONCE DAILY 90 Tablet 1 12/11/2023 Active Dicyclomine HCl 10 MG Oral Capsule (Bentyl)Indication s:Abdominal cramps Take 1 capsule by mouth twice per day as needed for abdominal pain. 60 Capsule 12/29/2023 Active Pregabalin 25 MG Oral Capsule (Lyrica)Indication s:Type 2 diabetes mellitus with diabetic neuropathy, without long-term current use of insulin (HCC) Take 1 Capsule by mouth in the morning and 1 Capsule before bedtime. 60 Capsule 1 12/29/2023 Active documented as of this encounter (statuses as of 01/04/2024) Active Problems Problem Noted Date Diagnosed Date Mild mitral regurgitation 12/14/2023 Mild tricuspid regurgitation 12/14/2023 Mild aortic stenosis 12/14/2023 Thyroid cyst 12/14/2023 Cerebral atrophy 12/14/2023 Food insecurity 11/08/2023 Overview: Per [facility] Protocol Hypertensive heart disease w ith chronic diastolic congestive heart failure 02/08/2023 Atherosclerosis of aorta 01/07/2023 Persistent atrial fibrillation 01/21/2022 History of vertebral compression fracture 2021 Urge and stress incontinence 10/24/2021 Vitamin D deficiency 10/24/2021 Status post renal artery angioplasty 10/24/2021 Status post lumbar spine operation 10/24/2021 Osteopenia 10/24/2021 Lumbar radiculopathy 10/24/2021 Internal hemorrhoids 10/24/2021 History of modified radical mastectomy of right breast 10/24/2021 History of repair of right rotator cuff 10/25/19 History of cholecystectomy 10/24/2021 Diverticulosis of colon 10/24/2021 Diabetic retinopathy of left eye associated with type 2 diabetes mellitus 03/12/2021 Personal history of fall 02/12/2021 Longstanding persistent atrial fibrillation 10/2019 Hypothyroidism, unspecified 02/21/2020 History of breast cancer 11/06/2019 Coronary artery disease invo lving [place] coronary artery of [place] heart without angina pectoris 07/04/2019 Senile osteoporosis 05/15/2019 Nontoxic uninodular goiter 11/17/2018 Gastroesophageal reflux disease without esophagi tis 11/01/2018 Rheumatoid arthritis 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 03/24/2018 Old CO (myocardial infarction) 03/24/2018 Type 2 diabetes mellitus wit h diabetic neuropathy, without long-term current use of insulin 03/15/2018 Type 2 diabetes mellitus with peripheral angiopa thy 11/19/2017 Mild sleep apnea 07/29/2017 PVD (peripheral vascular disease) 06/04/2017 History of total knee arthroplasty 04/25/2015 Anemia 05/04/2011 Encounter for long-term (current) use of medicat ions 04/10/2011 Dyslipidemia, goal LDL below 70 06/06/2009 Overview: Per Lipid Taxonomy. HTN, goal below 130/80 05/21/2009 Overview: Modified per HTN protocol #16. Type 2 diabetes mellitus wit h hemoglobin A1c goal of less than 7.0% 04/25/2009 Overview: Per Diabetes Taxonomy. ICD-10 update of inactive term GENERAL OSTEOARTHROSIS Irritable bowel syndrome documented as of this encounter (statuses as of 01/04/2024) Resolved Problems Problem Noted Date Diagnosed Date Resolved Date Hypertensive heart disease w ith chronic diastolic congestive heart failure 02/08/202302/08 Polyarthritis 10/24/2021 02/23/2022 Osteoarthritis 10/24/2021 02/23/2022 Peripheral arterial disease 10/24/2021 11/07/2021 Overview: Duplicate Venous stasis ulcer of left lower leg with edema of left lower leg 10/24/2021 09/20/2022 Ulcerative pancolitis 10/24/20212023 Methicillin resistant Staphy lococcus aureus infection 10/24/2021 01/25/2023 Long-term use of high-risk medication 10/24/2021 12/09/2023 Cerebrovascular accident (CVA) 10/24/2021 11/07/2021 Overview: Not current CVA Acute pain of right knee 02/12/2021 Overview: Noted in january of 2021 Historical Skin tear of right upper arm without complication 02/12/2021 09/22/2022 Overview: Noted in 2020 Historical Diarrhea 01/25/2021 09/22/2022 Overview: Noted in December of 2020 Historical Incontinence of feces 01/25/20212023 Black tarry stools 01/25/2021 Overview: Noted in 2020 historical Postprocedural seroma of a m usculoskeletal structure following a musculoskeletal system procedure 02/21/2020 12/14/2023 Anxiety state 07/04/2019 09/20/2022 Diabetes mellitus with peripheral angiopathy 0 09/26/2021 Rheumatoid arthritis 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 07/04/2019 09/27/19 22 Old CO (myocardial infarction) 07/04/2019 09/26/2021 Major depression single epis ode, in partial remission 03/23/2019 08/26/2023 Severe obesity with body mas s index (BMI) of 36.0 to 36.9 with serious comorbidity 11/17/2018 Atherosclerosis of [place] co ronary artery of [place] heart without angina pectoris 11/17/201806/2021 Arteriosclerotic dementia wi th depressive features 11/17/2018 12/16/2018 Compression fracture of lumbar vertebra 11/10/2018 11/07/2021 Iron deficiency anemia 05/26/201812/16 Colorectal polyps 04/22/2018 09/12/2018 HTN, goal below 140/90 03/24/201812/13 Rheumatoid arthritis 12/28/2017 023 Overview: More specified Dx listed on PL Acute CO 11/19/2017 11/19/2017 Inflammatory polyarthropathy 11/19/2017 12/16/2018 Loosening of knee joint prosthesis 08/16/2015 07/07/2022 HTN, goal below 130/80 02/15/201203/24 Overview: Per HTN Protocol #27. Other specified prophylactic or treatment measure 04/09/2011 11/19/2017 Malignant neoplasm of female breast 10/08/2010 11/19/2017 Severe obesity with body mas s index (BMI) of 35.0 to 39.9 with serious comorbidity 09/23/2009 Overview: Per Obesity Taxonomy ICD-10 update of inactive diagnosis ADVANCE DIRECTIVE INFORMATION 10/05/2006 11/19/2017 Overview: No, Advance Directive brochure given to patient at prior appointment. Dyslipidemia, goal to be determined 01/12/2002 06/06/2009 Overview: Per Lipid Taxonomy. CHR ISCHEMIC HRT DIS NOS 09/16/2001 HYPERTENSION NOS 05/21/2009 Overview: Modified per HTN protocol #16. OBESITY, UNSPECIFIED 010 Overview: Per Obesity Taxonomy Type 2 diabetes mellitus wit h hemoglobin A1c goal of less than 7.0% 04/25/2009 Overview: Per Diabetes Taxonomy. ICD-10 update of inactive term BMI 31.0-31.9,adult 10/11/19 19 documented as of this encounter (statuses as of 01/04/2024) Immunizations Name Administration Dates Next Due COVID-19 mRNA, LNP-s, No Pre serve, 2-Dose Series (Pfizer) 10/30/2020,10/09/2020 DT - Diptheria/Tetanus (PEDS) 04/13/2002 PPD 01/19/2018 Pneumococcal Conjugate Vacc, 13 Valent (Prevnar) 03/15/2018 Pneumococcal Conjugate Vacci ne, 20-valent ([id number]) 10/26/2023 Pneumococcal Conjugate Vacci ne, 7 Valent 07/12/2014 Pneumococcal Polysaccharide PPV23 (Pneumovax) 06/28/2001 Seasonal Influenza Virus Vac cine, Unspecified Formulation 03/13/2021,04/11/2020,05/10/2019,03/15,04/10/2017,03/25/2016,03/26/2015 ,04/13/2002,06/17/2001 Seasonal Influenza, PF, 6 M & above, IM , (FluLaval or Fluzone) 03/15/2018 Seasonal Influenza, Quadriva lent Hd (Fluzone Hd) 04/13/2023,03/13/2021 Seasonal Influenza, Split, I IV3, With Preserve, Inj 04/17/2013,05/06/2012 Seasonal Influenza, Trivalen t, Adjuvanted, 65+ yrs 04/11/2020,05/10/2019 Seasonal Influenza, Trivalen t, High Dose, No Preserve, IM 04/10/2017,03/25/2016,03/26/2015,07/12 TD - Tetanus/Diptheria (ADULT) 01/25/2017 TDAP (age 10 and older)(Boostrix) 03/15/2018 Varicella Zoster Vaccine (Adult) 01/15/2016 documented as of this encounter Social History Tobacco Use Types Packs/Day Years Used Date Smoking Tobacco: Former Cigarettes 1 30 0 02/12/1963 - 02/12/1993 Smokeless Tobacco: Never Alcohol Use Standard Drinks/Week Comments No 0 (1 standard drink = 0.6 oz pur e alcohol) PHQ-2 Answer Date Recorded PHQ Adult Total Score 0 12/14/2023 Hunger Vital Sign Answer Date Recorded Within the past 12 months, y ou worried that your food would run out before you got the money to buy more. Sometimes true Within the past 12 months, t he food you bought just didn't last and you didn't have money to get more. Sometimes true Childcare Answer Date Recorded Do you feel overwhelmed with taking care of a child, family member or friend? No 12/14/2023 Does your family need help f inding childcare? (Household - for ages 0-17 years) Not on file 12/14/2023 Clothing Answer Date Recorded Have you been unable to get clothing when it was really needed? No 12/14/2023 Is your family able to get c lothes or diapers when needed? (Household - for ages 0-17 years) Not on file 12/14/2023 Personal Safety Answer Date Recorded Do you feel unsafe or have concerns for your saf ety? No 12/14/2023 Do you have concerns for you r family's safety? (Household - for ages 0-17 years) Not on file 12/14/2023 Utilities Answer Date Recorded Do you have trouble paying y our heating, water, or electric bill? No 12/14/2023 Is your family able to pay t he heat, water, or electric bill? (Household - for ages 0-17 years) Not on file 12/14/2023 Does your family have access to good internet? (Household - for ages 0-17 years) Not on file 12/14/2023 Employment Status Answer Date Recorded Are you unemployed or without regular income? No 12/14/2023 Does the household have a re gular source of income? (Household - for ages 0-17 years) Not on file 12/14/2023 Social Connections Answer Date Recorded How often do you feel lonely or isolated from th ose around you? Never 12/14/2023 Financial Resource Strain Answer Date R ecorded Do you have any trouble payi ng for your medications, or do you think you might in the future? No 12/14/2023 Does your family have troubl e paying for medicine? (Household - for ages 0-17 years) Not on file 12/14/2023 Transportation Needs Answer Date Record ed READ ONLY Do you have troubl e getting a ride to medical visits or work? Never True 12/14/2023 Does your family have a hard time getting a ride to doctors visits? (Household - for ages 0-17 years) Not on file 12/14/2023 Has lack of transportation k ept you from medical appointments, meetings, work, or from getting things needed for daily living? Check all that apply. No 12/14/2023 Do you (or your family) have trouble finding or paying for a ride (transportation)? (Household - for ages 0-17 years) Not on file 12/14/2023 Housing Stability Answer Date Recorded Do you currently live in a s helter or have no steady place to sleep at night? No 12/14/2023 READ ONLY Do you think you a re at risk of becoming homeless? No 12/14/2023 Does your family worry about paying for your home or becoming homeless? (Household - for ages 0-17 years) Not on file 0 12/14/2023 Are you homeless or worried that you might be in the future? No 12/14/2023 Are you (or your family) moe eless or worried that you might be in the future? (Household - for ages 0-17 years) Not on file Food Insecurity Answer Date Recorded Do you need food for this week? No 12/14/2023 Are you able to get enough f ood for your family? (Household - for ages 0-17 years) Not on file 12/14/2023 Does your family need food t his week? (Household - for ages 0-17 years) Not on file 12/14/2023 Do you always have enough fo od for your family? (Household - for ages 0-17 years) Not on file 12/14/2023 Sex and Gender Information Value Date Recorded Sex Assigned at Female 07/07/2022 8:10 AM EST Gender Identity Female 07/07/2022 8:10 AM EST Sexual Orientation Straight 04/29/2019 3: 38 PM EDT Job Start Date Occupation Industry Not on file Not on file Not on file documented as of this encounter Miscellaneous Notes * Telephone Encounter - Margarito Munoz sahil - 01/04/2024 2:18 PM EDT Refused Prescriptions: Disp Refills Dicyclomine HCl 10 MG Oral Capsule (Bentyl)60 Cap*0 Sig: Take 1capsule by mouth twice per day as needed for abdominal pain.Refused By: MARGARITO MUNOZ for Refusal: Duplicate Request documented in this encounter Plan of Treatment Upcoming Encounters Date Type Department Care Team (Late st Contact Info) Description 02/18/2024 11:00 AM EDT Anticoagulation Pharmacy, [place] [address] [place] [address] [place] [id number] [place] [address] 03/24/2024 9:30 AM EDT Office Visit Cardiology, [facility] [address] [facility] [place] [address] Corrine Quinn PA-C [address] [facility] [place] [address] 05/11/2024 10:15 AM EST Office Visit Ophthalmology, [facility] [address] [facility] [place] [address] Doyle Heredia, DO [address] [facility] [place] [address] 05/18/2024 10:40 AM EST Office Visit Family Practice, [facility] [address] [place] [phone] Derrek Sparks MD [address] [place] [address] 05/18/2024 1:00 PM EST Office Visit Dermatology, [facility] [address] [place] [facility] [place] [address] Sully Kearns PAAmita [address] [place] [address] [place] [address] 06/12/2024 10:30 AM EST Office Visit Rheumatology [address] [place] [address] Carlitos Castro CRNP [address] [place] [address] [place] [address] 12/14/2024 9:00 AM EDT Home Visit Care at Home [address] [place] [address] Delmy Boggs PA-C [address] [place], [place] [id number] Health Maintenance Due Date Last Done Comments Zoster Vaccines (1 of 2) 03/11/2016 01/15/2016 COVID-19 Vaccine (3 - Pfizer risk series) 11/27/2020 10/30/2020, 10/09/2020 Diabetic Foot Exam 07/07/2023 07/07/2022, 0 10/22/2020, 07/04/2019, Additional history exists Influenza Vaccine (FLU shot) (#1) 2024 04/13/2023, 03/13/2021, 03/13/2021, Additional history exists Diabetic Eye Exam 04/29/2024 04/29/2023, , 04/29/2023, Additional history exists HbA1c 04/30/2024 10/29/2023, 10/2022, 01/07/2023, Additional history exists DXA Scan 05/03/2024 05/03/2023, 11/2022, 04/29/2021, Additional history exists Albumin/Creatinine Ratio 06/01/2024 023, 05/07/2022, 12/06/2020, Additional history exists TSH 06/01/2024 06/01/2023, 07/29, 04/21/2021, Additional history exists GFR 10/18/2024 10/19/2023, 01/2024, 07/28/2023, Additional history exists Depression Screening 12/13/2024 12/14/2023, 10/26/19 24 Colonoscopy 08/18/2025 08/18/2022, 07/30, 11/14/2020, Additional history exists DTaP,Tdap,and Td Vaccines (4 - Td or Tdap) 03/15/2028 03/15/2018, 03/15/2018, 01/25/2017, Additional history exists RETIRED - COLONOSCOPY-ANNUAL AGES 18-100 Discontinued 08/18/2022, 08/18/2022, 11/14/2020, Additional history exists Pneumococcal Vaccine: 65+ Years Completed 10/26/2023, 03/15/2018, 01/12/2002, Additional history exists VITAMIN D LEVEL ONCE IN A LIFETIME-USE SMARTSET# [id number] Completed 12/03/2023, 06/22/2023, 06/01/2023, Additional history exists HPV (Gardasil) Vaccine Aged Out No lo nger eligible based on patient's age to complete this topic Hepatitis B Vaccine Aged Out No longe r eligible based on patient's age to complete this topic MENINGOCOCCAL (MENACTRA/MENVEO) Aged Out No longer eligible based on patient's age to complete this topic documented as of this encounter Medical Devices Implanted Type Area [employer] Device Identifier Shelf Expiration Date Model / Serial / Lot Lead- 3 Implanted:Qt y: 1 on 01/26/[address], DO Lead Back 1295.04 07/28/2025 [id number] / / Description:Implanted at [facility] Neurostimula tor-01/26/2023 Implanted: by Rashaad Street DO (Quantity not on file) Neurostimulator 1295.04 10/25/2025 [id number] / [id number] / Description:Nikita Soto anted at [facility] Clip Quick 2.8mm 230cm - [id number] Implanted:Qt y: 4 on 11/14/2020 by Martina Cancino MD at [facility] [employer] [employer] 06/27/2023 [id number] / / Lens 19.5 [id number] - [id number] - [id number] Implanted:Qt y: 1 on 03/26/2021 by Doyle Heredia DO at OR [facility] Right: Eye BRII : SURGICAL 10/29/2025 [id number] / [id number] / Lens 19.5 [id number] - [id number] - [id number] Implanted:Qt y: 1 on 03/11/2022 by Doyle Heredia DO at OR [facility] Left: Eye RBII : SURGICAL 10/29/2025 [id number] / [id number] / documented as of this encounter Visit Diagnoses Diagnosis Abdominal cramps Abdominal pain, unspecified site documented in this encounter Advance Directives * Full Code (Latest Code Status on File) Date Activated Date Inactivated Comments 03/11/2022 7:56 AM 03/11/2022 2:41 PM Question Answer Comments Discussion of Advance Direct donnie occurred with: Not Discussed due to patient's condition Care Teams Water Taxi Ferry Operator Relationship Specialty Start Date End Date Derrek Sparks MD [address] [facility] [place] [address] PCP - General Family Medicine 08/04/22 documented as of this encounter
--- OUTSIDE RECORDS SUMMARY | 2024-01-06 14:19 | External Medical Summary ---
Author Name Unknown Address Unknown Organization : Laboratory Report Ordering Provider Test Date Status ILIA CHAVEZ 01/04/2024 11:06:51 Final Therapeutic ranges for non-o perative patients:
Prophylaxsis/treatment of DVT: (Range:2.0-3.0)
Treatment of pulmonary embolism:(Range:2.0-3.0)
Prevention of systemic embolism from:
-tissue heart valves
-acute myocardial infarction
-valvular heart disease
-atrial fibrillation
(Range: 2.0-3.0)
Mechanical prosthetic valves: (Range: 2.5-3.5) Observation Date Value Abnormality Reference (Units ) Status INR in Capillary blood by Coagulation assay 01/04/2024 11:06:51 1.9 (INR) Final Performing Location
--- OUTSIDE RECORDS SUMMARY | 2024-01-06 14:19 | External Medical Summary | Summary of Care ---
Author Name Unknown Organization [facility] Address [address] [place] [address] Phone [phone] Care Team Providers Care Collar Starcher Name Role Phone Fabio Clarke MD Primary Care Provider [phone]- [phone] Reason for Visit * Reason Comments eRx-Medication Refill Encounter Details Date Type Department Care Team (Late st Contact Info) Description 12/27/2023 Refill Located Within [facility] [address] [place] [address] Fabio Clarke MD [address] [place] [address] Abdominal cramps Allergies Active Allergy Reactions Criticality Noted Date Comments Tello Inhibitors 05/08/2021 Hyperkalemia resulting in 2 hospitalizations Metformin Diarrhea 11/05/2022 Nadolol Itching 03/17/1999 Corgard itchy Nitroglycerin Other (Please comment) 02/09/2011 Headache that is only relieved with Morphine. Nsaids Nausea/vomiting 03/17/1999 relafen documented as of this encounter (statuses as of 12/29/2023) Medications Medication Sig Dispensed Refills Start Date [...] by mouth in the morning. 07/22/2020 Active High Brew CoffeeToListar Verio w/Device KitIndications:DM type 2 with diabetic peripheral neuropathy (HCC) Use to check blood sugars daily as directed E11.9 1 Kit 10/10/2020 Active High Brew CoffeeToListar Verio In Vitro Strip (Glucose Blood)Indications: DM [...] Oral Tablet (Coreg)Indications :Coronary artery disease involving [place] coronary artery of [place] heart without angina pectoris,HTN, goal below 140/90 [...] for abdominal pain. 60 Capsule 12/29/2023 Active documented as of this encounter (statuses as of 12/29/2023) Active Problems Problem Noted Date Diagnosed Date [...] cancer 11/06/2019 Coronary artery disease invo lving [place] coronary artery of [place] heart without angina pectoris 07/04/2019 Senile osteoporosis 05/15/2019 Nontoxic uninodular goiter 11/17/2018 Gastroesophageal reflux disease without esophagi tis 11/01/2018 Rheumatoid arthritis 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 03/24/2018 Old [place] (myocardial infarction) 03/24/2018 Type 2 diabetes mellitus [...] as of this encounter (statuses as of 12/29/2023) Resolved Problems Problem Noted Date Diagnosed Date [...] negative rheumatoid factor 07/04/2019 09/27/19 22 Old [place] (myocardial infarction) 07/04/2019 09/26/2021 Major depression single epis ode, in partial remission 03/23/2019 08/26/2023 Severe obesity with body mas s index (BMI) of 36.0 to 36.9 with serious comorbidity 11/17/2018 Atherosclerosis of [place] co ronary artery of [place] heart without angina pectoris 11/17/201806/2021 Arteriosclerotic dementia wi th depressive features 11/17/2018 12/16/2018 Compression fracture of lumbar vertebra 11/10/2018 11/07/2021 Iron deficiency anemia 05/26/201812/16 Colorectal polyps 04/22/2018 09/12/2018 HTN, goal below 140/90 03/24/201812/13 Rheumatoid arthritis 12/28/2017 023 Overview: More specified Dx listed on PL Acute TX 11/19/2017 11/19/2017 Inflammatory polyarthropathy 11/19/2017 12/16/2018 Loosening [...] as of this encounter (statuses as of 12/29/2023) Immunizations Name Administration Dates Next Due COVID-19 mRNA, LNP-s, No Pre serve, 2-Dose Series (Pfizer) 10/30/2020,10/09/2020 DT - Diptheria/Tetanus (PEDS) 04/13/2002 PPD 01/19/2018 Pneumococcal Conjugate Vacc, 13 Valent (Prevnar) 03/15/2018 Pneumococcal Conjugate Vacci ne, 20-valent ([id number]) 10/26/2023 Pneumococcal Conjugate Vacci ne, 7 Valent [...] encounter Miscellaneous Notes * Telephone Encounter - Fabio Clarke MD - 12/29/2023 12:33 PM EDTSigned Prescriptions: Disp Refills Dicyclomine HCl 10 MG Oral Capsule (Bentyl)60 Cap*0 Sig: Take 1 capsule by mouth twice per day as needed for abdominal pain.Authorizing Provider: FABIO CLARKE * Telephone Encounter - Deneen Ramirez LPN - 12/29/2023 11:21 AM EDTPending Prescriptions: Disp Refills Dicyclomine HCl 10 MG Oral Capsule [Pharma*60 Cap*0 Sig: Take 1 capsule by mouth twice per day as needed for abdominal pain. * Telephone Encounter - Deneen Ramirez LPN - 12/29/2023 11:21 AM EDT Did you pend patient's preferred pharmacy and medication before forwarding?yes Pharmacy: [id number] [facility] Pending Prescriptions: Disp Refills Dicyclomine HCl 10 MG Oral Capsule (Benty*60 Cap*0 Sig: Take 1 capsule by mouth twice per day as needed for abdominal pain. Last Visit: 10/26/2023 (in office), Visit date not found (telemedicine) Next Visit: 05/18/2024 If no future appointments scheduled, and last appointment is greater than a year ago, please schedule patient for a follow-up appointment Last date the medication was ordered: Is this request for a controlled substance? Urine Drug Screen:No results found. However, due to the size of the patient record, not all encounters were searched. Please check Results Review for a complete set of results. Patient Phone Numbers Labs: Lab Results Component Value Date/Time CREAT 1.0 10/19/2023 08:00 AM CREAT 0.72 01/12/2023 12:00 AM CREAT 0.7 07/19/2020 10:10 AM CREAT 0.7 09/22/1996 06:30 PM POTASSIUM 3.6 10/19/2023 08:00 AM POTASSIUM 3.6 01/12/2023 12:00 AM POTASSIUM 4.6 07/19/2020 10:10 AM POTASSIUM 4.2 09/22/1996 06:30 PM TSH 4.21 (H) 06/01/2023 10:44 AM TSH 3.15 10/10/2019 11:06 AM LDLCALC 54 10/19/2023 08:00 AM LDLCALC 68 10/10/2019 11:06 AM LDLCALC 180. (HH) 09/22/1996 06:30 PM LDLDIRECT 86 05/29/2021 09:29 AM LDLDIRECT NOT APPLICABLE 10/10/2019 11:06 AM LDLDIRECT 57 12/22/2016 01:42 PM ALT 22 10/19/2023 08:00 AM ALT 10 07/19/2020 10:10 AM ALT 20 09/22/1996 06:30 PM HGBA1C 9.0 (H) 10/29/2023 10:59 AM HGBA1C 8.4 (A) 03/17/2022 12:00 AM HGBA1C 5.5 07/05/2020 01:05 PM * Telephone Encounter - Bela Field - 12/27/2023 7:28 PM EDTPending Prescriptions: Disp Refills Dicyclomine HCl 10 MG Oral Capsule [Pharma*60 Cap*0 Sig: Take 1capsule by mouth twice per day as needed for abdominal pain. documented in this encounter Plan of Treatment Upcoming Encounters Date Type Department Care Team (Late st Contact Info) Description 01/04/2024 11:00 AM EDT [facility], [place] [address] [facility] [address] [facility] [address] [facility] [address] 03/24/2024 9:30 AM EDT Office Visit Cardiology, [facility] [address] [facility] [place] [address] Corrine Quinn PA-C [address] [facility] [place] [address] 05/11/2024 10:15 AM EST Office Visit Ophthalmology, [facility] [address] [facility] [place] [address] Doyle Heredia DO [address] [facility] [place] [address] 05/18/2024 10:40 AM EST Office Visit [facility], [place] [address] [facility] [phone] Fabio Clarke [facility] [address] [facility] [address] 05/18/2024 1:00 PM EST Office Visit Dermatology, [place] [address] [facility], [place] [address] Sully Kearns, PAAmita [address] [place] [address] [place] [address] 06/12/2024 10:30 AM EST Office Visit Rheumatology [facility] [address] [facility], [place] [address] Carlitos Castro, BLAYNE [address] [facility] [place] [address] 12/14/2024 9:00 AM EDT Home Visit Care at Home [address] [place], [place] [phone] Delmy Boggs PA-C [address] [place], [place] [phone] Health Maintenance Due Date Last Done Comments [...] Additional history exists DXA Scan 05/03/2024 05/03/2023, 1111/2022, 04/29/2021, Additional history exists Albumin/Creatinine Ratio 06/01/2024 023, 05/07/2022, 12/06/2020, Additional history exists TSH 06/01/2024 06/01/2023, 07/29, 04/21/2021, Additional history exists GFR 10/18/2024 10/19/2023, 02/0 01/2024, 07/28/2023, Additional history exists Depression Screening [...] D LEVEL ONCE IN A LIFETIME-USE SMARTSET# [id number] Completed 12/03/2023, 06/22/2023, 06/01/2023, Additional history exists [...] this encounter Medical Devices Implanted Type Area Body Shop Supervisor Device Identifier Shelf Expiration Date Model / Serial / Lot Lead- 3 Implanted:Qt y: 1 on 01/26/[address] DO Lead Back 1295.04 07/28/2025 [id number] / / Description:Implanted at [facility] Neurostimula tor-01/26/2023 Implanted: by Rashaad Street DO (Quantity not on file) Neurostimulator 1295.04 10/25/2025 [id number] / [id number] / Description:Nikita page at [facility] Clip Quick 2.8mm 230cm - [id number] Implanted:Qt y: 4 on 11/14/2020 by Martina Cancino MD at [facility] [employer] 06/27/2023 [id number]-202UR. A / / Lens 19.5 [id number] - [id number] - [id number] Implanted:Qt y: 1 on 03/26/2021 by Doyle Heredia, DO at OR [facility] Right: Eye BRII : SURGICAL 10/29/2025 [id number] / [id number] / Lens 19.5 [id number] - [id number] - [id number] Implanted:Qt y: 1 on 03/11/2022 by Doyle Heredia, DO at OR [facility] Left: Eye BRII : SURGICAL 10/29/2025 [id number] / [id number] / documented as of this encounter Visit Diagnoses Diagnosis Abdominal cramps Abdominal pain, unspecified site documented in this encounter Advance Directives * Full Code (Latest Code Status on File) Date Activated Date Inactivated Comments 03/11/2022 7:56 AM 03/11/2022 2:41 PM Question Answer Comments Discussion of Advance Direct donnie occurred with: Not Discussed due to patient's condition Care Teams Collar Starcher Relationship Specialty Start Date End Date Fabio Clarke MD [address] [place] [address] PCP - General Family Medicine 08/04/22 documented as of this encounter
--- OUTSIDE RECORDS SUMMARY | 2024-01-06 14:19 | External Medical Summary | Summary of Care ---
Author Name Unknown Organization [facility] Address [address] [place] [address] Phone [phone] Care Team Providers Care Director Of Spa And Guest Experience Name Role Phone Derrek Sparks MD Primary Care Provider +1- [phone] Reason for Visit * Reason Comments Dosage Adjustment In Person (Anticoag Cl inic) Encounter Details Date Type Department Care Team (Latest Contact Info) Description 01/04/2024 11:00 AM EDT Anticoagulation Pharmacy, [address] [address] [facility] [address] [place] [address] Anticoagulation management encounter*; Longstanding persistent atrial fibrillation (HCC) Allergies Active Allergy Reactions Criticality Noted Date [...] by mouth in the morning. 07/22/2020 Active Tilkee Verio w/Device KitIndications:DM type 2 with diabetic peripheral neuropathy (HCC) Use to check blood sugars daily as directed E11.9 1 Kit 10/10/2020 Active eduClipper In Vitro Strip (Glucose Blood)Indications: DM type [...] Oral Tablet (Coreg)Indications :Coronary artery disease involving [place] coronary artery of [place] heart without angina pectoris,HTN, goal below 140/90 [...] cancer 11/06/2019 Coronary artery disease invo lving [place] coronary artery of [place] heart without angina pectoris 07/04/2019 Senile osteoporosis 05/15/2019 Nontoxic uninodular goiter 11/17/2018 Gastroesophageal reflux disease without esophagi tis 11/01/2018 Rheumatoid arthritis 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 03/24/2018 Old [place] (myocardial infarction) 03/24/2018 Type 2 diabetes mellitus [...] negative rheumatoid factor 07/04/2019 09/27/19 22 Old PR (myocardial infarction) 07/04/2019 09/26/2021 Major depression single epis ode, in partial remission 03/23/2019 08/26/2023 Severe obesity with body mas s index (BMI) of 36.0 to 36.9 with serious comorbidity 11/17/2018 Atherosclerosis of [place] co ronary artery of [place] heart without angina pectoris 11/17/201806/2021 Arteriosclerotic dementia wi th depressive features 11/17/2018 12/16/2018 Compression fracture of lumbar vertebra 11/10/2018 11/07/2021 Iron deficiency anemia 05/26/201812/16 Colorectal polyps 04/22/2018 09/12/2018 HTN, goal below 140/90 03/24/201812/13 Rheumatoid arthritis 12/28/2017 023 Overview: More specified Dx listed on PL Acute PR 11/19/2017 11/19/2017 Inflammatory polyarthropathy 11/19/2017 12/16/2018 Loosening [...] (Prevnar) 03/15/2018 Pneumococcal Conjugate Vacci ne, 20-valent ([id number]) 10/26/2023 Pneumococcal Conjugate Vacci ne, 7 Valent [...] on file documented as of this encounter Progress Notes * Alanna Osborn RPh - 01/04/2024 11:03 AM EDT Medication Therapy Disease Management - Anticoagulation Patient: Elmira Tavares | : 1945 Subjective Patient-Reported Symptoms: Patient Findings Negatives: Signs/symptoms of thrombosis, Signs/symptoms of bleeding, Change in health, Change in alcohol use, Change in activity, Upcoming invasive procedure, Missed doses, Extra doses, Change in medications, Change in diet/appetite, Bruising Objective Current Warfarin Dose As of 01/04/2024 Warfarin maintenance plan: 6 mg (4 mg x 1.5) every Mon, Fri; 4 mg (4 mg x 1) all other days INR Result As of 01/04/2024 INR goal: 1.8-2.2 INR used for dosin.9 (01/04/2024) Assessment & Plan Warfarin Plan As of 01/04/2024 Full warfarin instructions: 6 mg every Mon, Fri; 4 mg all other days Next INR check: 02/18/2024 Repeat PT/INR in 6 week(s) Weekly dose: not changed Additional Dosing Information: Alanna Osborn [facility] Clinical Pharmacist 01/04/2024, 11:03 AM documented in this encounter Plan of Treatment Upcoming Encounters Date Type Department Care Team (Late st Contact Info) Description 02/18/2024 11:00 AM EDT Anticoagulation Pharmacy, [place] [address] [place], [place] [address] [address] [facility] [address] [facility] [place] [address] 03/24/2024 9:30 AM EDT Office Visit Cardiology, [address] [place] [address] Corrine Quinn PA-C [address] [facility] [place] [address] 05/11/2024 10:15 AM EST Office Visit Ophthalmology, [facility] [address] [facility] [place] [address] Doyle Heredia, DO [facility] [place] [address] 05/18/2024 10:40 AM EST Office Visit Family Practice, [place] [address] [place] [phone] Derrek Sparks MD [address] [place] [address] 05/18/2024 1:00 PM EST Office Visit Dermatology, [place] [address] [place] [address] Sully Kearns PA-C [address] [place] [address] [place] [address] 06/12/2024 10:30 AM EST Office Visit Rheumatology [address] [place] [address] Carlitos Castro CRNP [address] [place], [place] [address] [address] 12/14/2024 9:00 AM EDT Home Visit Care at Home [address] [place], [place] [phone] Delmy Boggs PA-C [address] [facility] [id number] Health Maintenance Due Date Last Done Comments Zoster Vaccines (1 of 2) 03/11/2016 01/15/2016 COVID-19 Vaccine (3 - Pfizer risk series) 11/27/2020 10/30/2020, 10/09/2020 Diabetic Foot Exam 07/07/2023 07/07/2022, 0 10/22/2020, 07/04/2019, Additional history exists Influenza Vaccine (FLU shot) (#1) 2024 04/13/2023, 03/13/2021, 03/13/2021, Additional history exists Diabetic Eye Exam 04/29/2024 04/29/2023, , 04/29/2023, Additional history exists HbA1c 04/30/2024 10/29/2023, 0 10/2022, 01/07/2023, Additional history exists DXA Scan 05/03/2024 05/03/2023, 11/2022, 04/29/2021, Additional history exists Albumin/Creatinine Ratio 06/01/2024 023, 05/07/2022, 12/06/2020, Additional history exists TSH 06/01/2024 06/01/2023, 021 08/2022, 04/21/2021, Additional history exists GFR 10/18/2024 10/19/2023, 020 01/2024, 07/28/2023, Additional history exists Depression Screening 12/13/2024 12/14/2023, 10/26/19 24 Colonoscopy 08/18/2025 08/18/2022, 02/06/2022, 11/14/2020, Additional history exists DTaP,Tdap,and Td Vaccines (4 - Td or Tdap) 03/15/2028 03/15/2018, 03/15/2018, 01/25/2017, Additional history exists RETIRED - COLONOSCOPY-ANNUAL AGES 18-100 Discontinued 08/18/2022, 08/18/2022, 11/14/2020, Additional history exists Pneumococcal Vaccine: 65+ Years Completed 10/26/2023, 03/15/2018, 01/12/2002, Additional history exists VITAMIN D LEVEL ONCE IN A LIFETIME-USE SMARTSET# [id number] Completed 12/03/2023, 06/22/2023, 06/01/2023, Additional history exists [...] this encounter Medical Devices Implanted Type Area Painter Interior Finish Device Identifier Shelf Expiration Date Model / Serial / Lot Lead- Implanted:Qt y: 1 on 01/26/[address] DO Lead Back 1295.04 07/28/2025 [id number] / / Description:Implanted at [facility] Neurostimula tor-01/26/2023 Implanted: by Rashaad Street DO (Quantity not on file) Neurostimulator 1295.04 10/25/2025 [id number] / [id number] / Description:Nikita Cole Impl anted at [facility] Clip Quick 2.8mm 230cm - [id number] Implanted:Qt y: 4 on 11/14/2020 by Martina Cancino MD at [facility] [employer] 06/27/2023 HX-202UR. A / / Lens 19.5 [id number] - [id number] - [id number] Implanted:Qt y: 1 on 03/26/2021 by Doyle Heredia DO at OR [facility] Right: Eye BRII : SURGICAL 10/29/2025 [id number] / [id number] / Lens 19.5 [id number] - [id number] - [id number] Implanted:Qt y: 1 on 03/11/2022 by Doyle Heredia DO at OR [facility] Left: Eye BRII : SURGICAL 10/29/2025 [id number] / [id number] / documented as of this encounter Procedures Procedure Name Priority Date/Time Associated Diagnosis Comments INR FINGERSTICK, POINT OF CARE STAT 01/04/2024 11:06 AM EDT Longstanding persistent atrial fibrillation (HCC) Anticoagulation management encounter documented in this encounter Results * INR FINGERSTICK, POINT OF CARE (01/04/2024 11:06 AM EDT) Fingerstick INR 1.9 INR 11:08 AM EDT [facility]- Blood 01/04/2024 11:0 6 AM EDT 01/04/2024 11:08 AM EDT Narrative [facility]-01 - 01/04/2024 11:08 AM EDT Therapeutic ranges for non-operative patients: Prophylaxsis/treatment of DVT: (Range:2.0-3.0) Treatment of pulmonary embolism:(Range:2.0-3.0) Prevention of systemic embolism from: -tissue heart valves -acute myocardial infarction -valvular heart disease -atrial fibrillation (Range: 2.0-3.0) Mechanical prosthetic valves: (Range: 2.5-3.5) Alanna Osborn [facility] POINT OF CARE TEST DOCKED DEVICE UNSOLICITED RESULTS [facility] [address] [place] [address] documented in this encounter Visit Diagnoses Diagnosis Anticoagulation management encounter- Primary Encounter for therapeutic drug monitoring Longstanding persistent atrial fibrillation (HCC) documented in this encounter Advance Directives * Full Code (Latest Code Status on File) Date Activated Date Inactivated Comments 03/11/2022 7:56 AM 03/11/2022 2:41 PM Question Answer Comments Discussion of Advance Direct donnie occurred with: Not Discussed due to patient's condition Care Teams Director Of Spa And Guest Experience Relationship Specialty Start Date End Date Derrek Sparks MD [address] [place] [id number] PCP - General Family Medicine 08/04/22 documented as of this encounter"
--- OUTSIDE RECORDS SUMMARY | 2024-01-06 14:19 | External Medical Summary | Summary of Care ---
Author Name Unknown Organization [facility] Address [address] [place] [address] Phone [phone] Care Team Providers Care Ride Assembly Supervisor Name Role Phone Derrek Sparks MD Primary Care Provider [phone]- [phone] Reason for Visit * Reason Comments eRx-Medication Refill Encounter Details Date Type Department Care Team (Late st Contact Info) Description 12/31/2023 Refill [facility] [address] [place] [address] Derrek Sparks MD [address] [place] [address] Abdominal cramps Allergies Active Allergy Reactions Criticality Noted Date Comments Tello Inhibitors 05/08/2021 Hyperkalemia resulting in 2 hospitalizations Metformin Diarrhea 11/05/2022 Nadolol Itching 03/17/1999 Corgard itchy Nitroglycerin Other (Please comment) 02/09/2011 Headache that is only relieved with Morphine. Nsaids Nausea/vomiting 03/17/1999 relafen documented as of this encounter (statuses as of 01/01/2024) Medications Medication Sig Dispensed Refills Start Date [...] by mouth in the morning. 07/22/2020 Active [employer] Verio w/Device KitIndications:DM type 2 with diabetic peripheral neuropathy (HCC) Use to check blood sugars daily as directed E11.9 1 Kit 10/10/2020 Active [employer] Verio In Vitro Strip (Glucose Blood)Indications: DM [...] Oral Tablet (Coreg)Indications :Coronary artery disease involving [place] coronary artery of [place] heart without angina pectoris,HTN, goal below 140/90 [...] as of this encounter (statuses as of 01/01/2024) Active Problems Problem Noted Date Diagnosed Date [...] cancer 11/06/2019 Coronary artery disease invo lving southern [place] coronary artery of southern [place] heart without angina pectoris 07/04/2019 Senile osteoporosis 05/15/2019 Nontoxic uninodular goiter 11/17/2018 Gastroesophageal reflux disease without esophagi tis 11/01/2018 Rheumatoid arthritis 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 03/24/2018 Old DE (myocardial infarction) 03/24/2018 Type 2 diabetes mellitus [...] as of this encounter (statuses as of 01/01/2024) Resolved Problems Problem Noted Date Diagnosed Date [...] negative rheumatoid factor 07/04/2019 09/27/19 22 Old DE (myocardial infarction) 07/04/2019 09/26/2021 Major depression single epis ode, in partial remission 03/23/2019 08/26/2023 Severe obesity with body mas s index (BMI) of 36.0 to 36.9 with serious comorbidity 11/17/2018 Atherosclerosis of southern [place] co ronary artery of southern [place] heart without angina pectoris 11/17/201806/2021 Arteriosclerotic dementia wi th depressive features 11/17/2018 12/16/2018 Compression fracture of lumbar vertebra 11/10/2018 11/07/2021 Iron deficiency anemia 05/26/201812/16 Colorectal polyps 04/22/2018 09/12/2018 HTN, goal below 140/90 03/24/201812/13 Rheumatoid arthritis 12/28/2017 023 Overview: More specified Dx listed on PL Acute DE 11/19/2017 11/19/2017 Inflammatory polyarthropathy 11/19/2017 12/16/2018 Loosening [...] as of this encounter (statuses as of 01/01/2024) Immunizations Name Administration Dates Next Due COVID-19 mRNA, LNP-s, No Pre serve, 2-Dose Series (Pfizer) 10/30/2020,10/09/2020 DT - Diptheria/Tetanus (PEDS) 04/13/2002 PPD 01/19/2018 Pneumococcal Conjugate Vacc, 13 Valent (Prevnar) 03/15/2018 Pneumococcal Conjugate Vacci ne, 20-valent ([id number]) 10/26/2023 Pneumococcal Conjugate Vacci ne, 7 Valent [...] encounter Miscellaneous Notes * Telephone Encounter - Bela Marina - 01/01/2024 4:40 AM EDTRefused Prescriptions: Disp Refills Dicyclomine HCl 10 MG Oral Capsule (Bentyl)60 Cap*0 Sig: Take 1capsule by mouth twice per day as needed for abdominal pain.Refused By: Nicole MARINAon for Refusal: Duplicate Request documented in this encounter Plan of Treatment Upcoming Encounters Date Type Department Care Team (Late st Contact Info) Description 01/04/2024 11:00 AM EDT Anticoagulation Pharmacy, [place] [address] [place] [address] [place] [address] [place] [address] 03/24/2024 9:30 AM EDT Office Visit Cardiology, [facility] [address] [facility] [place] [address] Corrine Quinn PA-C [address] [facility] [place] [address] 05/11/2024 10:15 AM EST Office Visit Ophthalmology, [facility] [address] [facility] [place] [address] Doyle Heredia, [address] [facility] [place] [address] 05/18/2024 10:40 AM EST Office Visit Family Practice, [place] [address] [place] [phone] Derrek Sparks MD [address] [place] [address] 05/18/2024 1:00 PM EST Office Visit Dermatology, [place] [address] [place] [facility] [address] Sully Kearns PAAmita [address] [place] [address] [place] [address] 06/12/2024 10:30 AM EST Office Visit Rheumatology [address] [place] [address] Carlitos Castro CRNP [address] [place] [address] [place] [address] 12/14/2024 9:00 AM EDT Home Visit Care at Home [address] [place] [address] Delmy Boggs PA-C [address], [place] [phone] Health Maintenance Due Date Last Done Comments [...] D LEVEL ONCE IN A LIFETIME-USE SMARTSET# [id number] Completed 12/03/2023, 06/22/2023, 06/01/2023, Additional history exists [...] this encounter Medical Devices Implanted Type Area Cia Agent Device Identifier Shelf Expiration Date Model / Serial / Lot Lead- 3 Implanted:Qt y: 1 on 01/26/[address], DO Lead Back 1295.04 07/28/2025 [id number] / / Description:Implanted at [facility] Neurostimula tor-01/26/2023 Implanted: by Rashaad Street DO (Quantity not on file) Neurostimulator 1295.04 10/25/2025 [id number] / [id number] / Description:Nikita mendozad at [facility] Clip Quick 2.8mm 230cm - [id number] Implanted:Qt y: 4 on 11/14/2020 by Martina Cancino MD at [facility] [employer] 06/27/2023 HX-202UR. A / / Lens 19.5 [id number] - [id number] - [id number] Implanted:Qt y: 1 on 03/26/2021 by Doyle Heredia DO at OR [facility] Right: Eye BRII : SURGICAL 10/29/2025 [id number] / [id number] / Lens 19.5 [id number] - [id number] - [id number] Implanted:Qt y: 1 on 03/11/2022 by Doyle Heredia DO at OR [facility] Left: Eye BRII : SURGICAL 10/29/2025 [id number] / [id number] / documented as of this encounter Visit Diagnoses Diagnosis Abdominal cramps Abdominal pain, unspecified site documented in this encounter Advance Directives * Full Code (Latest Code Status on File) Date Activated Date Inactivated Comments 03/11/2022 7:56 AM 03/11/2022 2:41 PM Question Answer Comments Discussion of Advance Direct donnie occurred with: Not Discussed due to patient's condition Care Teams Ride Assembly Supervisor Relationship Specialty Start Date End Date Derrek Sparks MD [address] [facility] [place] [address] PCP - General Family Medicine 08/04/22 documented as of this encounter
--- OUTSIDE RECORDS SUMMARY | 2024-01-06 14:19 | External Medical Summary | Summary of Care ---
Author Name Unknown Organization [facility] Address [address] [place] [address] Phone [phone] Care Team Providers Care School Aide Name Role Phone Derrek Sparks MD Primary Care Provider [phone]- [phone] Reason for Visit * Reason Onset Date Comments MyCode Nonconsent - Not interested at this time 01/04/2024 Encounter Details Date Type Department Care Team (Late st Contact Info) Description 01/04/2024 Orders Only Outcomes Research Department [address] [place] [address] Saba Davis CHRA MyCode Nonconsent Documentation Allergies Active Allergy Reactions Criticality Noted Date [...] by mouth in the morning. 07/22/2020 Active [employer] Verio w/Device KitIndications:DM type 2 with diabetic peripheral neuropathy (HCC) Use to check blood sugars daily as directed E11.9 1 Kit 10/10/2020 Active [employer] In Vitro Strip (Glucose Blood)Indications: DM type [...] Oral Tablet (Coreg)Indications :Coronary artery disease involving [place] coronary artery of [place] heart without angina pectoris,HTN, goal below 140/90 [...] cancer 11/06/2019 Coronary artery disease invo lving standing [place] coronary artery of [place] heart without angina pectoris 07/04/2019 Senile osteoporosis 05/15/2019 Nontoxic uninodular goiter 11/17/2018 Gastroesophageal reflux disease without esophagi tis 11/01/2018 Rheumatoid arthritis 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 03/24/2018 Old OR (myocardial infarction) 03/24/2018 Type 2 diabetes mellitus [...] negative rheumatoid factor 07/04/2019 09/27/19 22 Old OR (myocardial infarction) 07/04/2019 09/26/2021 Major depression single epis ode, in partial remission 03/23/2019 08/26/2023 Severe obesity with body mas s index (BMI) of 36.0 to 36.9 with serious comorbidity 11/17/2018 Atherosclerosis of [place] co ronary artery of standing [place] heart without angina pectoris 11/17/201806/2021 Arteriosclerotic dementia wi th depressive features 11/17/2018 12/16/2018 Compression fracture of lumbar vertebra 11/10/2018 11/07/2021 Iron deficiency anemia 05/26/201812/16 Colorectal polyps 04/22/2018 09/12/2018 HTN, goal below 140/90 03/24/201812/13 Rheumatoid arthritis 12/28/2017 023 Overview: More specified Dx listed on PL Acute OR 11/19/2017 11/19/2017 Inflammatory polyarthropathy 11/19/2017 12/16/2018 Loosening [...] (Prevnar) 03/15/2018 Pneumococcal Conjugate Vacci ne, 20-valent ([id number]) 10/26/2023 Pneumococcal Conjugate Vacci ne, 7 Valent [...] as of this encounter Progress Notes * Saba Davis CHRA - 01/04/2024 10:53 AM EDT MyCode Nonconsent Documentation Elmira Tavares was approached in the clinic regarding participation in the MyCode Project and did not consent. documented in this encounter Plan of Treatment Upcoming Encounters Date Type Department Care Team (Late st Contact Info) Description 02/18/2024 11:00 AM EDT Anticoagulation Pharmacy, [place] [address] [place] [facility] [place] [address] [facility] [address] [place] [address] 03/24/2024 9:30 AM EDT Office Visit Cardiology, [facility] [address] [place] [address] Corrine Quinn PA-C [address] [place] [address] 05/11/2024 10:15 AM EST Office Visit Ophthalmology, [facility] [address] [place] [address] Doyle Heredia, [address] [facility] [place] [address] 05/18/2024 10:40 AM EST [facility], [place] [address] [facility] [phone] Derrek Sparks MD [address] [place] [facility] [place] [address] 05/18/2024 1:00 PM EST Office Visit Dermatology, [place] [address] [place] [facility] [place] [address] Sully Kearns PA-C [address] [place] [address] [place] [address] 06/12/2024 10:30 AM EST Office Visit Rheumatology [facility] [address] [facility] [place] [address] Carlitos Castro CRNP [address] [facility] [place] [address] 12/14/2024 9:00 AM EDT Home Visit Care at Home [address] [place] [address] Delmy Boggs PA-C [address] [place], [place] [phone] Health Maintenance Due Date Last Done Comments Zoster Vaccines (1 of 2) 03/11/2016 01/15/2016 COVID-19 Vaccine (3 - Pfizer risk series) 11/27/2020 10/30/2020, 10/09/2020 Diabetic Foot Exam 07/07/2023 07/07/2022, 0 10/22/2020, 07/04/2019, Additional history exists Influenza Vaccine (FLU shot) (#1) 2024 04/13/2023, 03/13/2021, 03/13/2021, Additional history exists Diabetic Eye Exam 04/29/2024 04/29/2023, , 04/29/2023, Additional history exists HbA1c 04/30/2024 10/29/2023, 120 10/2022, 01/07/2023, Additional history exists DXA Scan 05/03/2024 05/03/2023, 11/2022, 04/29/2021, Additional history exists Albumin/Creatinine Ratio 06/01/20242 023, 05/07/2022, 12/06/2020, Additional history exists TSH [...] D LEVEL ONCE IN A LIFETIME-USE SMARTSET# [id number] Completed 12/03/2023, 06/22/2023, 06/01/2023, Additional history exists [...] this encounter Medical Devices Implanted Type Area Pin Drafter Device Identifier Shelf Expiration Date Model / Serial / Lot Lead- 3 Implanted:Qt y: 1 on 01/26/[address] DO Lead Back 1295.04 07/28/2025 [id number] / / Description:Implanted at [facility] Neurostimula tor-01/26/2023 Implanted: by Rashaad Street DO (Quantity not on file) Neurostimulator 1295.04 10/25/2025 [id number] / [id number] / Description:Nikita page at [facility] Clip Quick 2.8mm 230cm - [id number] Implanted:Qt y: 4 on 11/14/2020 by Martina Cancino MD at [facility] [employer] 06/27/2023 HX-202UR. A / / Lens 19.5 [id number] - [id number] - [id number] Implanted:Qt y: 1 on 03/26/2021 by Doyle Heredia DO at OR [facility] Right: Eye BRII : SURGICAL 10/29/2025 [id number] / [id number] / Lens 19.5 [id number] - [id number] - [id number] Implanted:Qt y: 1 on 03/11/2022 by Doyle Heredia DO at OR [facility] Left: Eye BRII : SURGICAL 10/29/2025 [id number] / [id number] / documented as of this encounter Advance Directives * Full Code (Latest Code Status on File) Date Activated Date Inactivated Comments 03/11/2022 7:56 AM 03/11/2022 2:41 PM Question Answer Comments Discussion of Advance Direct donnie occurred with: Not Discussed due to patient's condition Care Teams School Aide Relationship Specialty Start Date End Date Derrek Sparks MD [address] [place] [address] PCP - General Family Medicine 08/04/22 documented as of this encounter
--- OUTSIDE RECORDS SUMMARY | 2024-01-06 14:20 | External Medical Summary | Summary of Care ---
Author Name Unknown Organization [facility] Address [address] [place] [address] Phone [phone] Care Team Providers Care Perioperative Nurse Name Role Phone Derrek Sparks MD Primary Care Provider [phone]- [phone] Reason for Visit * Reason Onset Date Comments Appointment 12/08/2023 Encounter Details Date Type Department Care Team (Late st Contact Info) Description 12/08/2023 Telephone Care at Home [address] [place] [address] Services, Scheduling [address] [place] [address] Appointment Allergies Active Allergy Reactions Criticality Noted Date Comments Tello Inhibitors 05/08/2021 Hyperkalemia resulting in 2 hospitalizations Metformin Diarrhea 11/05/2022 Nadolol Itching 03/17/1999 Corgard itchy Nitroglycerin Other (Please comment) 02/09/2011 Headache that is only relieved with Morphine. Nsaids Nausea/vomiting 03/17/1999 relafen documented as of this encounter (statuses as of 12/08/2023) Medications Medication Sig Dispensed Refills Start Date [...] by mouth in the morning. 07/22/2020 Active [employer]To[employer]oobean Verio w/Device KitIndications:DM type 2 with diabetic peripheral neuropathy (HCC) Use to check blood sugars daily as directed E11.9 1 Kit 10/10/2020 Active Traffic.comTouch Verio In Vitro Strip (Glucose Blood)Indications: DM type 2 with diabetic peripheral neuropathy (HCC) Use to check blood sugars twice daily as directed Dx E11.9 200 Strip 3 10/10/2020 Active Cholecalciferol 50 MCG (2000 UT) Oral Capsule DAILY 03/27/2022 Active Sertraline HCl 25 MG Oral Tablet (Zoloft)Indication s:in am Take 1 tablet by mouth daily. 90 Tablet 3 01/02/2023 Active Atorvastatin Calcium 80 MG Oral Tablet (Lipitor) Take 1 Tablet by mouth in the morning. 100 Tablet 3 01/07/2023 Active Carvedilol 25 MG Oral Tablet (Coreg)Indications :Coronary artery disease involving [place] coronary artery of [place] heart without angina pectoris,HTN, goal below 140/90 [...] the morning. 90 Tablet 3 08/30/2023 Active Pregabalin 25 MG Oral Capsule (Lyrica)Indication s:Type 2 diabetes mellitus with diabetic neuropathy, without long-term current use of insulin (HCC) Take 1 Capsule by mouth in the morning and 1 Capsule before bedtime. 60 Capsule 1 10/26/2023 Active cloNIDine HCl 0.1 MG Oral Tablet [...] the morning. 30 Tablet 5 12/08/2023 Active documented as of this encounter (statuses as of 12/08/2023) Active Problems Problem Noted Date Diagnosed Date Food insecurity 11/08/2023 Overview: Per [facility] Protocol Hypertensive heart disease w ith chronic diastolic congestive heart failure 02/08/2023 Atherosclerosis of aorta 01/07/2023 Persistent atrial fibrillation 01/21/2022 History of vertebral compression fracture 2021 Urge and stress incontinence 10/24/2021 Vitamin D deficiency 10/24/2021 Ulcerative pancolitis 10/24/2021 Status post renal artery angioplasty 10/24/2021 Status post lumbar spine operation 10/24/2021 Osteopenia 10/24/2021 Lumbar radiculopathy 10/24/2021 Long-term use of high-risk medication 10/24/2021 Internal hemorrhoids 10/24/2021 History of modified radical mastectomy of right breast 10/24/2021 History of repair of right rotator cuff 10/25/19 History of cholecystectomy 10/24/2021 Diverticulosis of colon 10/24/2021 Diabetic retinopathy of left eye associated with type 2 diabetes mellitus 03/12/2021 Personal history of fall 02/12/2021 Incontinence of feces 01/25/2021 Longstanding persistent atrial fibrillation 10/2019 Postprocedural seroma of a m usculoskeletal structure following a musculoskeletal system procedure 02/21/2020 Hypothyroidism, unspecified 02/21/2020 Hemiplegia and hemiparesis f ollowing cerebral infarction affecting left non-dominant side 02/21/2020 History of breast cancer 11/06/2019 Coronary artery disease invo lving [place] coronary artery of [place] heart without angina pectoris 07/04/2019 Senile osteoporosis 05/15/2019 Nontoxic uninodular goiter 11/17/2018 Gastroesophageal reflux disease without esophagi tis 11/01/2018 Rheumatoid arthritis 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 03/24/2018 HTN, goal below 140/90 03/24/2018 Old [place] (myocardial infarction) 03/24/2018 Type 2 diabetes mellitus [...] as of this encounter (statuses as of 12/08/2023) Resolved Problems Problem Noted Date Diagnosed Date Resolved Date Hypertensive heart disease w ith chronic diastolic congestive heart failure 02/08/202302/08 Polyarthritis 10/24/2021 02/23/2022 Osteoarthritis 10/24/2021 02/23/2022 Peripheral arterial disease 10/24/2021 11/07/2021 Overview: Duplicate Venous stasis ulcer of left lower leg with edema of left lower leg 10/24/2021 09/20/2022 Methicillin resistant Staphy lococcus aureus infection 10/24/2021 01/25/2023 Cerebrovascular accident (CVA) 10/24/2021 11/07/2021 Overview: Not current CVA Acute pain of right knee 02/12/2021 Overview: Noted in january of 2021 Historical Skin tear of right upper arm without complication 02/12/2021 09/22/2022 Overview: Noted in 2020 Historical Diarrhea 01/25/2021 09/22/2022 Overview: Noted in December of 2020 Historical Black tarry stools 01/25/2021 Overview: Noted in 2020 historical Anxiety state 07/04/2019 09/20/2022 Diabetes mellitus with peripheral angiopathy 0 09/26/2021 Rheumatoid arthritis 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 07/04/2019 09/27/19 22 Old VT (myocardial infarction) 07/04/2019 09/26/2021 Major depression single epis ode, in partial remission 03/23/2019 08/26/2023 Severe obesity with body mas s index (BMI) of 36.0 to 36.9 with serious comorbidity 11/17/2018 Atherosclerosis of [place] co ronary artery of [place] heart without angina pectoris 11/17/201806/2021 Arteriosclerotic dementia wi th depressive features 11/17/2018 12/16/2018 Compression fracture of lumbar vertebra 11/10/2018 11/07/2021 Iron deficiency anemia 05/26/201812/16 Colorectal polyps 04/22/2018 09/12/2018 Rheumatoid arthritis 12/28/2017 023 Overview: More specified Dx listed on PL Acute VT 11/19/2017 11/19/2017 Inflammatory polyarthropathy 11/19/2017 12/16/2018 Loosening [...] as of this encounter (statuses as of 12/08/2023) Immunizations Name Administration Dates Next Due COVID-19 mRNA, LNP-s, No Pre serve, 2-Dose Series (Pfizer) 10/30/2020,10/09/2020 DT - Diptheria/Tetanus (PEDS) 04/13/2002 PPD 01/19/2018 Pneumococcal Conjugate Vacc, 13 Valent (Prevnar) 03/15/2018 Pneumococcal Conjugate Vacci ne, 20-valent ([id number]) 10/26/2023 Pneumococcal Conjugate Vacci ne, 7 Valent [...] Answer Date Recorded PHQ Adult Total Score 1 10/26/2023 Hunger Vital Sign Answer Date Recorded Within the past 12 months, y ou worried that your food would run out before you got the money to buy more. Sometimes true Within the past 12 months, t he food you bought just didn't last and you didn't have money to get more. Sometimes true Sex and Gender Information Value Date Recorded Sex Assigned at Female 07/07/2022 8:10 AM EST Gender Identity Female 07/07/2022 8:10 AM EST Sexual Orientation Straight 04/29/2019 3: 38 PM EDT Job Start Date Occupation Industry Not on file Not on file Not on file documented as of this encounter Miscellaneous Notes * Telephone Encounter - Talita Ratliff OSA - 12/08/2023 1:27 PM EDT Care At Home Outreach Call attempt: 1st Call Call result: Call Successful - Patient enrolled and agreed to visit. Appointment with: Delmy Boggs PA-C Visit Date: 12/13 Visit Time: 12:00 pm with spouse Mesha Wong ISATU Ratliff documented in this encounter Plan of Treatment Upcoming Encounters Date Type Department Care Team (Late st Contact Info) Description 12/14/2023 12:00 PM EDT Home Visit Care at Home [address] [place] [address] Delmy Boggs PA-C [address] [place] [address] 01/04/2024 11:00 AM EDT Anticoagulation Pharmacy, [place] [address] [place] [address] [facility] [address] [place] [address] 03/24/2024 9:30 AM EDT Office Visit Cardiology, [facility] [address] [place] [address] [address] Corrine Quinn PA-C [address] [place] [address] 05/11/2024 10:15 AM EST Office Visit Ophthalmology, [facility] [address] [place] [address] Doyle Heredia, [address] [place] [address] 05/18/2024 10:40 AM EST Office Visit Family Practice, [place] [address] [facility] [place] [phone] Derrek Sparks MD [address] [place] [address] 05/18/2024 1:00 PM EST [facility] [place] [address] [facility] [address] Sully Kaerns PA-C [address] [place] [address] [place] [address] 06/12/2024 10:30 AM EST Office Visit Rheumatology [place] [address] [facility] [place] [address] Carlitos Castro CRNP [address] [facility] [place] [address] Health Maintenance Due Date Last Done Comments Zoster Vaccines (1 of 2) 03/11/2016 01/15/2016 COVID-19 Vaccine (3 - Pfizer risk series) 11/27/2020 10/30/2020, 10/09/2020 Diabetic Foot Exam 07/07/2023 07/07/2022, 0 10/22/2020, 07/04/2019, Additional history exists Diabetic Eye Exam 04/29/2024 04/29/2023, , 04/29/2023, Additional history exists HbA1c 04/30/2024 10/29/2023, 120 10/2022, 01/07/2023, Additional history exists DXA Scan 05/03/2024 05/03/2023, 11/2022, 04/29/2021, Additional history exists Albumin/Creatinine Ratio 06/01/2024 023, 05/07/2022, 12/06/2020, Additional history exists TSH 06/01/2024 06/01/2023, 07/29, 04/21/2021, Additional history exists GFR 10/18/2024 10/19/2023, 02/0 01/2024, 07/28/2023, Additional history exists Depression Screening 10/25/2024 10/26/2023 Colonoscopy 08/18/2025 08/18/2022, 07/30, 11/14/2020, Additional history exists DTaP,Tdap,and Td Vaccines (4 - Td or Tdap) 03/15/2028 03/15/2018, 03/15/2018, 01/25/2017, Additional history exists RETIRED - COLONOSCOPY-ANNUAL AGES 18-100 Discontinued 08/18/2022, 08/18/2022, 11/14/2020, Additional history exists Influenza Vaccine (FLU shot) Completed 04/13/2023, 03/13/2021, 03/13/2021, Additional history exists Pneumococcal Vaccine: 65+ Years Completed 10/26/2023, 03/15/2018, 01/12/2002, Additional history exists VITAMIN D LEVEL ONCE IN A LIFETIME-USE SMARTSET# [id number] Completed 12/03/2023, 06/22/2023, 06/01/2023, Additional history exists GARDASIL-HPV IMMUNIZATION SERIES Aged Out No longer eligible based on patient's age to complete this topic Hepatitis B Aged Out No longer eligi ble based on patient's age to complete this topic MENINGOCOCCAL (MENACTRA/MENVEO) Aged Out No longer eligible based on patient's age to complete this topic documented as of this encounter Medical Devices Implanted Type Area Quality Measurement Specialist Device Identifier Shelf Expiration Date Model / Serial / Lot Lead- 3 Implanted:Qt y: 1 on 01/26/[address], DO Lead Back 1295.04 07/28/2025 [id number] / / Description:Implanted at [facility] Neurostimula [facility]-01/26/2023 Implanted: by Rashaad Street DO (Quantity not on file) Neurostimulator 1295.04 10/25/2025 [id number] / [id number] / Description:Nikita page at [facility] Clip Quick 2.8mm 230cm - [id number] Implanted:Qt y: 4 on 11/14/2020 by Martina Cancino MD at [facility] [employer] 06/27/2023 [id number]-202UR. [id number] / / Lens 19.5 [id number] - [id number] - [id number] Implanted:Qt y: 1 on 03/26/2021 by Doyle Heredia DO at OR [facility] Right: Eye BRII : SURGICAL 10/29/2025 [id number] / [id number] 37 / Lens 19.5 [id number] - [id number] - [id number] Implanted:Qt y: 1 on 03/11/2022 by Doyle Heredia DO at OR [facility] Left: Eye BRII : SURGICAL 10/29/2025 [id number] / [id number] 29 / documented as of this encounter Advance Directives * Full Code (Latest Code Status on File) Date Activated Date Inactivated Comments 03/11/2022 7:56 AM 03/11/2022 2:41 PM Question Answer Comments Discussion of Advance Direct donnie occurred with: Not Discussed due to patient's condition Care Teams Perioperative Nurse Relationship Specialty Start Date End Date Derrek Sparks MD [address] [place] [address] PCP - General Family Medicine 08/04/22 documented as of this encounter
--- OUTSIDE RECORDS SUMMARY | 2024-01-06 14:20 | External Medical Summary | Summary of Care ---
Author Name Unknown Organization [facility] Address [address] [place] [address] Phone [phone] Care Team Providers Care Chief General Pediatric Clinic Name Role Phone Derrek Sparks MD Primary Care Provider +1- [phone] Reason for Visit * Reason Onset Date Comments Order Request 12/01/2023 Vit D / prolia Encounter Details Date Type Department Care Team (Late st Contact Info) Description 12/01/2023 Telephone Rheumatology [address] [place] [address] David Musa MD [address] [place] [address] [place] [address] Order Request (Vit D / prolia) Allergies Active Allergy Reactions Criticality Noted Date Comments Tello Inhibitors 05/08/2021 Hyperkalemia resulting in 2 hospitalizations Metformin Diarrhea 11/05/2022 Nadolol Itching 03/17/1999 Corgard itchy Nitroglycerin Other (Please comment) 02/09/2011 Headache that is only relieved with Morphine. Nsaids Nausea/vomiting 03/17/1999 relafen documented as of this encounter (statuses as of 12/06/2023) Medications Medication Sig Dispensed Refills Start Date [...] by mouth in the morning. 07/22/2020 Active [employer] Verio w/Device KitIndications:DM type 2 with diabetic peripheral neuropathy (HCC) Use to check blood sugars daily as directed E11.9 1 Kit 10/10/2020 Active Clustrix In Vitro Strip (Glucose Blood)Indications: DM type [...] Oral Tablet (Coreg)Indications :Coronary artery disease involving [place] coronary artery of [place] heart without angina pectoris,HTN, goal below 140/90 [...] [facility] 135 Tablet 1 11/26/2023 Active Hospital, Clinic, or Other Facility Administered Medication Ordered Dose Route Frequency Start Date End Date Status Denosumab (Prolia) subcut inj 60 mgIndications:Senile osteoporosis 60 mg SC ONCE 12/08/2023 12/08/2023 Active documented as of this encounter (statuses as of 12/06/2023) Active Problems Problem Noted Date Diagnosed Date Food insecurity 11/08/2023 Overview: Per [facility] Protocol Hypertensive heart disease w [...] cancer 11/06/2019 Coronary artery disease invo lving [place] coronary artery of [place] heart without angina pectoris 07/04/2019 Senile osteoporosis 05/15/2019 Nontoxic uninodular goiter 11/17/2018 Gastroesophageal reflux disease without esophagi tis 11/01/2018 Rheumatoid arthritis 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 03/24/2018 HTN, goal below 140/90 03/24/2018 Old [place] (myocardial infarction) 03/24/2018 Type 2 diabetes mellitus [...] as of this encounter (statuses as of 12/06/2023) Resolved Problems Problem Noted Date Diagnosed Date [...] negative rheumatoid factor 07/04/2019 09/27/19 22 Old [place] (myocardial infarction) 07/04/2019 09/26/2021 Major depression single epis ode, in partial remission 03/23/2019 08/26/2023 Severe obesity with body mas s index (BMI) of 36.0 to 36.9 with serious comorbidity 11/17/2018 Atherosclerosis of [place] co ronary artery of [place] heart without angina pectoris 11/17/201806/2021 Arteriosclerotic dementia wi th depressive features 11/17/2018 12/16/2018 Compression fracture of lumbar vertebra 11/10/2018 11/07/2021 Iron deficiency anemia 05/26/201812/16 Colorectal polyps 04/22/2018 09/12/2018 Rheumatoid arthritis 12/28/2017 023 Overview: More specified Dx listed on PL Acute MN 11/19/2017 11/19/2017 Inflammatory polyarthropathy 11/19/2017 12/16/2018 Loosening [...] as of this encounter (statuses as of 12/06/2023) Immunizations Name Administration Dates Next Due COVID-19 mRNA, LNP-s, No Pre serve, 2-Dose Series (Pfizer) 10/30/2020,10/09/2020 DT - Diptheria/Tetanus (PEDS) 04/13/2002 Diptheria/Tetanus (Adult) 06/28/1989 PPD 01/19/2018 Pneumococcal Conjugate Vacc, 13 Valent (Prevnar) 03/15/2018 Pneumococcal Conjugate Vacci ne, 20-valent ([id number]) 10/26/2023 Pneumococcal Conjugate Vacci ne, 7 Valent 07/12/2014 Pneumococcal Polysaccharide PPV23 (Pneumovax) 01/12/2002,06/28/2001,03/25/1993 Seasonal Influenza Virus Vac cine, Unspecified Formulation 03/13/2021,04/11/2020,05/10/2019,03/15,04/10/2017,03/25/2016,03/26/2015 ,04/13/2002,06/17/2001,04/08/1998,06/1994 Seasonal Influenza, PF, 6 M & above, IM , (FluLaval or Fluzone) 03/15/2018 Seasonal Influenza, Quadriva lent Hd (Fluzone Hd) 04/13/2023,03/13/2021 Seasonal Influenza, Split, I IV3, With Preserve, Inj 04/17/2013,05/06/2012,04/13/2002,06/17 Seasonal Influenza, Trivalen t, Adjuvanted, 65+ yrs 04/11/2020,05/10/2019 Seasonal Influenza, Trivalen t, High Dose, No Preserve, IM 04/10/2017,03/25/2016,03/26/2015,07/12 TD - Tetanus/Diptheria (ADULT) 01/25/2017,2001 TDAP (age 10 and older)(Boostrix) 03/15/2018 Unknown Immunization 06/17/2001 Varicella Zoster Vaccine (Adult) 01/15/2016 documented as [...] as of this encounter Miscellaneous Notes * Addendum Note - David Musa MD - 12/06/2023 8:49 AM EDTAddended by: DAVID MUSA on: 12/06/2023 08:49 AM Modules accepted: Orders * Telephone Encounter - David Musa MD - 12/06/2023 8:47 AM EDT I spoke with patient. Instructed her to start taking vitamin-D with a fatty meal as she is taking it in the mornings which just toast. Okay to get Prolia in 2 days. Will repeat labs in April. * Telephone Encounter - Humera Heck LPN - 12/06/2023 7:52 AM EDT Vit D was 24 on 12/03/23. * Telephone Encounter - Ad Pittman OSA - 12/02/2023 8:36 AM EDT [place] - Patient Related Communication Reason for Call: Patient is aware to have labs done. Will have done 12-03-23. Thank you ISATU Person * Telephone Encounter - David Musa MD - 12/01/2023 4:43 PM EDT signed * Telephone Encounter - Humera Heck LPN - 12/01/2023 9:21 AM EDT Chart reviewed. Patient has been seen within the last 12 months by a Rheumatology provider. Prolia authorization approved and updated in referral. Last injection has been > 6 months and 1 day. CAMorders pended for signature. Pt needs updated Vit D, order pended, informed pt she should be taking 2000 units daily, pt will increase Vit D and get lab work done before her appt. documented in this encounter Plan of Treatment Upcoming Encounters Date Type Department Care Team (Late st Contact Info) Description 12/08/2023 10:40 AM EDT Office Visit Rheumatology [address] [place], [place] [address] David Musa MD [address] [place] [address] [place], [place] [address] 01/04/2024 11:00 AM EDT [facility], [place] [address] [facility] [address] [place] [address] [facility] [address] 03/24/2024 9:30 AM EDT Office Visit Cardiology, [facility] [address] [facility] [place] [address] Corrine Quinn PA-C [address] [place] [address] 05/11/2024 10:15 AM EST Office Visit Ophthalmology, [facility] [place] [address] Doyle Heredia, DO [address] [facility] [place] [address] 05/18/2024 10:40 AM EST Office Visit Family [facility], [place] [address] [place] [phone] Derrek Sparks MD [address] [place] [address] 05/18/2024 1:00 PM EST Office Visit Dermatology, [place] [address] [place] [address] Sully Kearns PA-C [address] [place] [address] [place] [address] Scheduled Orders Name Type Priority Associated Diagnoses Orde r Schedule BASIC METABOLIC PANEL Lab Routine Senile osteoporosis Expected: 05/02/2024 (Approximate), Expires: 12/01/2024 25-HYDROXY VITAMIN D Lab Routine Senile osteoporosis Expected: 05/02/2024 (Approximate), Expires: 12/01/2024 Health Maintenance Due Date Last Done Comments Zoster Vaccines (2 of 3) 03/11/2016 01/15/2016 COVID-19 Vaccine ( season) 2023 10/30/2020, 10/09/2020 Diabetic Foot Exam 07/07/2023 07/07/2022, [...] D LEVEL ONCE IN A LIFETIME-USE SMARTSET# [id number] Completed 12/03/2023, 06/22/2023, 06/01/2023, Additional history exists [...] this encounter Medical Devices Implanted Type Area Polisher Numeral Device Identifier Shelf Expiration Date Model / Serial / Lot Lead- 3 Implanted:Qt y: 1 on 01/26/[address], DO Lead Back 1295.04 07/28/2025 [id number] / / Description:Implanted at [facility] [employer] [facility]-01/26/2023 Implanted: by Rashaad Street DO (Quantity not on file) Neurostimulator 1295.04 10/25/2025 [id number] / [id number] / Description:Nikita Soto anted at [facility] Clip Quick 2.8mm 230cm - [id number] Implanted:Qt y: 4 on 11/14/2020 by Martina Cancino MD at [facility] [employer] 06/27/2023 HX-202UR. A / / Lens 19.5 [id number] - [id number] - [id number] Implanted:Qt y: 1 on 03/26/2021 by Doyle Heredia DO at OR [facility] Right: Eye BRII : SURGICAL 10/29/2025 [id number] / [id number] 37 / Lens 19.5 [id number] - [id number] - [id number] Implanted:Qt y: 1 on 03/11/2022 by Doyle Heredia DO at OR [facility] Left: Eye BRII : SURGICAL 10/29/2025 [id number] / [id number] 29 / documented as of this encounter Results * 25-HYDROXY VITAMIN D (12/03/2023 11:04 AM EDT) 25-Hydroxy Vitamin D 24 >19 ng/mL 12/04/2023 12:53 AM EDT [facility] Blood Venous blood specimen / Unknown Venipuncture / Unknown 12/03/2023 11:04 AM EDT 12/03/2023 11:04 AM EDT Narrative [facility] - 12/04/2023 12:53 AM EDT Deficient: <20 ng/mL Insufficient: 20-29 ng/mL Recommended/Optimum:30-50 ng/mL Vitamin D intoxication is rare. If suspicious of Vitamin D toxicity, evaluation of serum Calcium and PTH is recommended. David Musa MD LAB BLOOD ORDERABLE S [facility] [address] [facility] [address] documented in this encounter Visit Diagnoses Diagnosis Senile osteoporosis- Primary documented in this encounter Advance Directives * Full Code (Latest Code Status on File) Date Activated Date Inactivated Comments 03/11/2022 7:56 AM 03/11/2022 2:41 PM Question Answer Comments Discussion of Advance Direct donnie occurred with: Not Discussed due to patient's condition Care Teams Chief General Pediatric Clinic Relationship Specialty Start Date End Date Derrek Sparks MD [address] [facility] [address] PCP - General Family Medicine 08/04/22 documented as of this encounter
--- OUTSIDE RECORDS SUMMARY | 2024-01-06 14:20 | External Medical Summary | Summary of Care ---
Author Name Unknown Organization [facility] Address [address] [place] [address] Phone [phone] Care Team Providers Care Lowerator Operator Name Role Phone Fabio Clarke MD Primary Care Provider [phone]- [phone] Reason for Visit * Reason Comments Adult Annual Wellness Visit, Initial Vis it Encounter Details Date Type Department Care Team (Late st Contact Info) Description 12/14/2023 12:00 PM EDT Home Visit Care at Home [address], [place] [id number] Delmy Boggs PA-C [address], [place] [id number] Iron deficiency anemia, unspecified iron deficiency anemia type*; Atherosclerosis of aorta ([facility]); Coronary artery disease involving tribe coronary artery of tribe heart without angina pectoris; Diabetic retinopathy of left eye associated with type 2 diabetes mellitus, macular edema presence unspecified, unspecified retinopathy severity ([facility]); Diverticulosis of colon; Dyslipidemia, goal LDL below 70; Gastroesophageal reflux disease without esophagitis; Food insecurity; History of breast cancer; History of cholecystectomy; History of modified radical mastectomy of right breast; History of repair of right rotator cuff; History of total bilateral knee replacement; 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 ([facility]); History of vertebral compression fracture; Type 2 diabetes mellitus with hemoglobin A1c goal of less than 7.0% ([facility]); Type 2 diabetes mellitus with diabetic neuropathy, without long-term current use of insulin (HCC); Longstanding persistent atrial fibrillation (HCC); Type 2 diabetes mellitus with peripheral angiopathy (HCC); PVD (peripheral vascular disease) (HCC); Cerebral atrophy (HCC); HTN, goal below 130/80; Hypertensive heart disease with chronic diastolic congestive heart failure (HCC); Acquired hypothyroidism; Internal hemorrhoids; Irritable bowel syndrome with constipation; Personal history of fall; Senile osteoporosis; Status post lumbar spine operation; Status post renal artery angioplasty; Urge and stress incontinence; Vitamin D deficiency; Mild mitral regurgitation; Mild tricuspid regurgitation; Mild aortic stenosis; Thyroid cyst Allergies Active Allergy Reactions Criticality Noted Date Comments Tello Inhibitors 05/08/2021 Hyperkalemia resulting in 2 hospitalizations Metformin Diarrhea 11/05/2022 Nadolol Itching 03/17/1999 Corgard itchy Nitroglycerin Other (Please comment) 02/09/2011 Headache that is only relieved with Morphine. Nsaids Nausea/vomiting 03/17/1999 relafen documented as of this encounter (statuses as of 12/14/2023) Medications Medication Sig Dispensed Refills Start Date End Date Status tweetTVTOUCH ULTRASOFT LANCETS MISCIndications:DM type 2 with diabetic [...] by mouth in the morning. 07/22/2020 Active Mama w/Device KitIndications:DM type 2 with diabetic peripheral neuropathy (HCC) Use to check blood sugars daily as directed E11.9 1 Kit 10/10/2020 Active Mama In Vitro Strip (Glucose Blood)Indications: DM type [...] Oral Tablet (Coreg)Indications :Coronary artery disease involving tribe coronary artery of tribe heart without angina pectoris,HTN, goal below [...] ONCE DAILY 90 Tablet 1 12/11/2023 Active documented as of this encounter (statuses as of 12/14/2023) Active Problems Problem Noted Date Diagnosed Date Mild mitral regurgitation 12/14/2023 Mild tricuspid regurgitation 12/14/2023 Mild aortic stenosis 12/14/2023 Thyroid cyst 12/14/2023 Cerebral atrophy 12/14/2023 Food insecurity 11/08/2023 Overview: Per [facility] Protocol Hypertensive heart disease w [...] cancer 11/06/2019 Coronary artery disease invo lving tribe coronary artery of tribe heart without angina pectoris 07/04/2019 Senile osteoporosis 05/15/2019 Nontoxic uninodular goiter 11/17/2018 Gastroesophageal reflux disease without esophagi tis 11/01/2018 Rheumatoid arthritis 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 03/24/2018 Old [place] (myocardial infarction) 03/24/2018 Type 2 diabetes mellitus [...] as of this encounter (statuses as of 12/14/2023) Resolved Problems Problem Noted Date Diagnosed Date [...] negative rheumatoid factor 07/04/2019 09/27/19 22 Old [place] (myocardial infarction) 07/04/2019 09/26/2021 Major depression single epis ode, in partial remission 03/23/2019 08/26/2023 Severe obesity with body mas s index (BMI) of 36.0 to 36.9 with serious comorbidity 11/17/2018 Atherosclerosis of tribe co ronary artery of tribe heart without angina pectoris 11/17/201806/2021 Arteriosclerotic dementia wi th depressive features 11/17/2018 12/16/2018 Compression fracture of lumbar vertebra 11/10/2018 11/07/2021 Iron deficiency anemia 05/26/201812/16 Colorectal polyps 04/22/2018 09/12/2018 HTN, goal below 140/90 03/24/201812/13 Rheumatoid arthritis 12/28/2017 023 Overview: More specified Dx listed on PL Acute [place] 11/19/2017 11/19/2017 Inflammatory polyarthropathy 11/19/2017 12/16/2018 Loosening [...] as of this encounter (statuses as of 12/14/2023) Immunizations Name Administration Dates Next Due COVID-19 mRNA, LNP-s, No Pre serve, 2-Dose Series (Pfizer) 10/30/2020,10/09/2020 DT - Diptheria/Tetanus (PEDS) 04/13/2002 PPD 01/19/2018 Pneumococcal Conjugate Vacc, 13 Valent (Prevnar) 03/15/2018 Pneumococcal Conjugate Vacci ne, 20-valent ([id number]) 10/26/2023 Pneumococcal Conjugate Vacci ne, 7 Valent [...] a child, family member or friend? No 10/26/2023 Does your family need help f inding childcare? (Household - for ages 0-17 years) Not on file 10/26/2023 Clothing Answer Date Recorded Have you been unable to get clothing when it was really needed? No 10/26/2023 Is your family able to get c lothes or diapers when needed? (Household - for ages 0-17 years) Not on file 10/26/2023 Personal Safety Answer Date Recorded Do you feel unsafe or have concerns for your saf ety? No 10/26/2023 Do you have concerns for you r family's safety? (Household - for ages 0-17 years) Not on file 10/26/2023 Utilities Answer Date Recorded Do you have trouble paying y our heating, water, or electric bill? Yes 10/26/2023 Is your family able to pay t he heat, water, or electric bill? (Household - for ages 0-17 years) Not on file 10/26/2023 Does your family have access to good internet? (Household - for ages 0-17 years) Not on file 10/26/2023 Employment Status Answer Date Recorded Are you unemployed or without regular income? No 10/26/2023 Does the household have a re gular source of income? (Household - for ages 0-17 years) Not on file 10/26/2023 Social Connections Answer Date Recorded How often do you feel lonely or isolated from th ose around you? Rarely 10/26/2023 Financial Resource Strain Answer Date R ecorded Do you have any trouble payi ng for your medications, or do you think you might in the future? No 10/26/2023 Does your family have troubl e paying for medicine? (Household - for ages 0-17 years) Not on file 10/26/2023 Transportation Needs Answer Date Record ed READ ONLY Do you have troubl e getting a ride to medical visits or work? Never True 10/26/2023 Does your family have a hard time getting a ride to doctors visits? (Household - for ages 0-17 years) Not on file 10/26/2023 Has lack of transportation k ept you from medical appointments, meetings, work, or from getting things needed for daily living? Check all that apply. (Adult - for ages 18 years and over) Not on file 10/26/2023 Do you (or your family) have trouble finding or paying for a ride (transportation)? (Household - for ages 0-17 years) Not on file 10/26/2023 Housing Stability Answer Date Recorded Do you currently live in a s helter or have no steady place to sleep at night? No 10/26/2023 READ ONLY Do you think you a re at risk of becoming homeless? No 10/26/2023 Does your family worry about paying for your home or becoming homeless? (Household - for ages 0-17 years) Not on file 0 10/26/2023 Are you homeless or worried that you might be in the future? (Adult - for ages 18 years and over) Not on file Are you (or your family) moe eless or worried that you might be in the future? (Household - for ages 0-17 years) Not on file Food Insecurity Answer Date Recorded Do you need food for this week? No 10/26/2023 Are you able to get enough f ood for your family? (Household - for ages 0-17 years) Not on file 10/26/2023 Does your family need food t his week? (Household - for ages 0-17 years) Not on file 10/26/2023 Do you always have enough fo od for your family? (Household - for ages 0-17 years) Not on file 10/26/2023 Sex and Gender Information Value Date Recorded Sex Assigned at Female 07/07/2022 8:10 AM EST Gender Identity Female 07/07/2022 8:10 AM EST Sexual Orientation Straight 04/29/2019 3: 38 PM EDT Job Start Date Occupation Industry Not on file Not on file Not on file documented as of this encounter Last Filed Vital Signs Vital Sign Reading Time Taken Comments Blood Pressure 112/68 12/14/2023 5:01 PM EDT Pulse 86 12/14/2023 5:01 PM EDT Temperature - - Respiratory Rate 18 12/14/2023 5:01 PM EDT Oxygen Saturation 93% 12/14/2023 5:01 PM EDT Inhaled Oxygen Concentration - - Weight - - Height - - Body Mass Index - - documented in this encounter Progress Notes * Delmy Boggs PA-C - 12/14/2023 12:15 PM EDT Images from the original note were not included. ANNUAL HEALTH RISK ASSESSMENT [facility] [address] [facility] [place] [address] Patient Name: Elmira Tavares : 1945 Date of Assessment: 12/14/2023 Gender: Female PCP: [place] [address] [phone] Extended Emergency Contact Information Primary Emergency Contact: REI Quick Address: [address] [place] [address] Mobile Relation: Adult Child Secondary Emergency Contact: BERNICE TAVARES Mobile Relation: Spouse HRA Intake Documentation: Advance Care Planning: Advance Directive Type: None Advance Directive Date: Medical Adherence: Patient is able to obtain all medications? Yes Patient takes medications as prescribed? Yes Patient uses a pill box? Yes, refill(s) completed by self Medication Reconciliation Medications Medication reconciliation/review completed:: Yes (12/14/231707) Medication adherence problem:: No (12/14/231707) Experiencing side effects from current medications:: No (12/14/231707) Medication support:: Caregiver/family fills pillbox (12/14/231707) Admissions (within the last year): Not Applicable Hospital ER within 30 days: No Health Maintenance Last physical exam: 10/26/23 Does patient see provider regularly? 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 COMPARISON No prior ultrasound available for review. FINDINGS The thyroid gland is atrophic. The right lobe measures 2.2 x 0.9 x 1.3 cm. The isthmus measures 2 mm. The left lobe measures 3.5 x 1.7 x 1.5 cm. There is no lymphadenopathy. Left midpole cyst measures 18 x 12 x 12 mm. IMPRESSION IMPRESSION Left midpole thyroid cyst measuring 18 mm. Exam Ended: 09/20/18 11:03 Last Resulted: 09/20/18 13:14 Exam End Date Exam End Time 05/17/2019 9:43 AM XR CHEST 2 VIEWS Order: [id number] Status: Final result Visible to patient: Yes (seen) Next appt: 01/04/2024 at 11:00 AM in Pharmacy ([facility]) Dx: Cough 0 Result Notes Details Reading Physician Reading Date Result Priority Wu Shah MD [phone] 05/22/2019 Narrative & Impression EXAM XR CHEST 2 VIEWS HISTORY cough for 3 weeks COMPARISON No comparisons FINDINGS Heart size is normal. Lungs are clear without pleural effusion, pneumothorax or focal consolidation. Thoracic kyphoplasty. Reversed right shoulder arthroplasty IMPRESSION IMPRESSION Clear lungs. Exam Ended: 05/17/19 09:43 Last Resulted: 05/22/19 19:47 Exam End Date Exam End Time 09/29/2022 3:[address] ABDOMEN WO IV/ORAL CONTRAST Order: [id number] Status: Final result Visible to patient: Yes (seen) Next appt: 01/04/2024 at 11:00 AM in Pharmacy ([facility]) Dx: Generalized abdominal pain 1 Result Note 1 Patient Communication Details Reading Physician Reading Date Result Priority Milan Pete MD [phone] 10/02/2022 Narrative & Impression PROCEDURE INFORMATION: Exam: CT Abdomen Without Contrast Exam date and time: 09/29/2022 3:54 PM Age: 77 years old Clinical indication: Generalized abdominal pain TECHNIQUE: Imaging protocol: Computed tomography of the abdomen without contrast. Radiation optimization: All CT scans at this facility use at least one of these dose optimization techniques: automated exposure control; mA and/or kV adjustment per patient size (includes targeted exams where dose is matched to clinical indication); or iterative reconstruction. REPORTING DATA: Count of CT and Cardiac NM exams in prior 12 months: This patient has received 0 known CTs and 0 known cardiac nuclear medicine studies in the 12 months prior to the current study. COMPARISON: DX XR ABDOMEN 1 VIEW 08/10/2022 12:22 PM FINDINGS: Lungs: The visualized portions of the lung bases are normal. Moderate coronary arterial atherosclerotic vascular calcifications. Enlarged visualized central pulmonary artery, suggestive of pulmonary arterial hypertension. Liver: The non-contrast enhanced liver appears unremarkable. Gallbladder and bile ducts: Status post prior cholecystectomy. No biliary ductal dilatation. Pancreas: Atrophic changes of the pancreas are seen. No ductal dilatation. Spleen: The non-contrast enhanced spleen appears unremarkable. No splenomegaly. Adrenal glands: Unremarkable non-contrast CT appearance of the adrenals. No definte masses. Kidneys and ureters: No contour deforming masses seen on the non-contrast CT. Left kidney mid zone exophytic simple 1.1 x 1.4 cm cyst is seen. No calcifications. No hydronephrosis or ureterectasis. Stomach and bowel: The non-contrast opacified stomach is not well distended with relative gastric fold prominence. Assessment is limited. Small hiatal hernia is seen. The noncontrast opacified visualized loops of small bowel in the abdomen appear unremarkable. The noncontrast opacified loops of visualized colon in the abdomen show mild descending colonic diverticulosis, without CT evidence of diverticulitis. The lack of orally administered contrast material limits assessment. Appendix: No CT evidence of appendicitis. Intraperitoneal space: No free air. No significant fluid collection. Vasculature: Severe atherosclerotic vascular calcifications with calcifications at the origins of the mesenteric and renal arteries. Evaluation limited on noncontrast CT. No abdominal aortic aneurysm. Lymph nodes: No enlarged lymph nodes. Bones/joints: There is generalized osteopenia. Compression fractures of the T12 and L1 vertebral bodies are seen status post kyphoplasty/vertebroplasty. 60% T12 and 40% L1 vertebral body height loss is seen. There is 0.2 cm retrolisthesis of the superior aspect of the T12 vertebral body. Postsurgical changes are seen status post L2 to upper sacral fusion. L3-L4 through L5-S1 disc space graft material is seen. There is extensive artifact, which limits evaluation. Soft tissues: No soft tissue swelling. Postsurgical changes of the mid to lower visualized lumbar paraspinal soft tissues. Generator device is seen in the right lower back subcutaneous soft tissues with leads extending into the posterior epidural space in the lower thoracic region. IMPRESSION IMPRESSION: 1. Severe atherosclerotic vascular calcifications of the abdominal aorta with calcifications of the mesenteric and renal artery origins. Assessment limited on noncontrast CT. No abdominal aortic aneurysm. 2. Small hiatal hernia. 3. Some descending colonic diverticula, without CT evidence of diverticulitis. 4. T12 and L1 compression fractures status post kyphoplasty/vertebroplasty. Postsurgical changes of the lumbar spine, as noted above. 5. Other chronic findings, as noted above. THIS DOCUMENT HAS BEEN ELECTRONICALLY SIGNED BY MILAN PETE MD Exam Ended: 09/29/22 15:53 Last Resulted: 10/02/22 08:31 Exam End Date Exam End Time 05/03/2023 9:43 AM DEXA SCAN/BONE MINERAL AXIAL Order: [id number] Status: Final result Visible to patient: Yes (seen) Next appt: 01/04/2024 at 11:00 AM in Pharmacy ([facility]) Dx: Senile osteoporosis 0 Result Notes 1 HM Topic Details Reading Physician Reading Date Result Priority David Musa MD [phone] 05/03/2023 Routine Narrative & Impression Radiology, [facility] DXA Performed: 05/03/23 DXA Resulted: 05/03/2023 Elmira Tavares Reason for testing: estrogen deficient woman at clinical risk , monitoring to assess efficacy of therapy Osteoporosis treatment (per questionnaire): A. Previous treatment: Actonel/Risedronate B. Current treatment: Prolia/Denosumab since 2021 Major risk factors: none Using a [facility] images of the left hip were obtained using DXA.. The bone mineral density and T scores [standard, young, normal, female population] are as follows: RESULTS: Left total hip: 0.644 gms/cm2 T-score: -2.4 FRAX not indicated. IMPRESSIONS: Fracture risk is based on current National Osteoporosis Foundation (www.nof.org) Clinicians Guide and [place] Association of Clinical Endocrinology (AACE) Guidelines (www.aace.com) and the application of current WHO FRAX tool (https://www.[place].ac.uk/FRAX/) as well as the 2017 [place] Collegeof Rheumatology Glucocorticoid Induced Osteoporosis (GIOP) Guidelines (rheumatology.org/Practice-Elroy lity/Clinical-Support/Xswiiuan-Krfkzyuy-Cvqtxetuxx) using Bone mineral density derived T-scores andclinical risk factors obtained from the patient questionnaire. 1. The fracture risk is HIGH (remains HIGH) 2. The quality of the examination is GOOD. 3. No previous study for comparison. DEXA machine was recently upgraded so a comparison study can not be made. SUGGESTIONS: Information concerning the evaluation and treatment of osteoporosis can be found at the National Osteoporosis Foundation website (www.nof.org) and [place] Association of Clinical Endocrinology (AACE-www.aace.com). Osteoporosis prevention and treatment begins by modifying risk factors (such as smoking cessation and avoiding alcohol excess) and by participating in weight-bearing activities and exercise. Issues related to fall prevention and home safety should be addressed. Current NOF guidelinessuggest 1200 to 1500 mg of calcium from diet and or supplemental sources. It is generally felt bestto get calcium from ones diet. Calcium carbonate and calcium citrate are common calcium supplement choices in most local pharmacies. If the patient is taking a proton pump inhibitor, then calcium citrate should be the preferred supplement, if that is necessary. NOF guidelines for vitamin D are 800 to 1000 units of vitamin D3 daily. However, this may best be guided by measurement of 25-OH vitamin-D level, aiming for a level between 30 to 50 units (ng/ml). Additional information can be found at the FRAX website (https://www.[place].ac.uk/FRAX/), and the [place] College of Rheumatology website (https://www.rheumatology.org/Practice-Quality/Clinical-Support/Clinical-Practic e-Guidelines). 1. The present treatment with Prolia/Denosumab may be helping to maintain bone mineral density. in this patient and should be continued. 2. A repeat study should be considered in 2 years, while on therapy DAVID MUSA M.D. MARY Certified Clinical Psych Specialist Department of Rheumatology [facility] [employer] [address] [facility] Exam Ended: 05/03/23 09:43 Last Resulted: 05/03/23 12:40 Order Details View Encounter Lab and Collection Details Routing Result History View All Conversations on this Encounter Narrative & Impression EXAM: MRI BRAIN WITHOUT CONTRAST - 11/26/2023 HISTORY: 78 y/o F, falls, memory loss TECHNIQUE: MR images of the brain were acquired without intravenous contrast. COMPARISON: Multiple, most recently CT head dated 04/24/2021 FINDINGS: BRAIN PARENCHYMA: No acute infarct or hemorrhage. No intracranial mass identified. No mass effect or herniation. Scattered periventricular and subcortical T2/FLAIR hyperintense signal is nonspecific but likely the sequela chronic microvascular ischemic change. VENTRICLES/EXTRA-AXIAL SPACES: The ventricles and sulci are symmetric, but enlarged. No hydrocephalus or extra-axial fluid collections. FLOW VOIDS: Intact. SINUSES/MASTOIDS: No significant mucosal thickening. Mastoid cells are clear bilaterally. CALVARIUM: Intact. Bilateral lens replacement. IMPRESSION IMPRESSION: No acute intracranial abnormality. 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 Providers: Leonora Liu MD (Doctor) Referring MD: Fabio Clarke MD (Referring MD) Medicines: See the Anesthesia note for documentation of the administered medications Complications: No immediate complications. Procedure: Pre-Anesthesia Assessment: - ASA Grade Assessment: III - A patient with severe systemic disease. - Prior to the procedure, a History and Physical was performed, and patient medication allergies have been reviewed. The patient's tolerance of previous anesthesia has been reviewed. - Respiratory Examination: clear to auscultation. - CV Examination: normal. - The risks and benefits of the procedure and the sedation options and risks were discussed with the patient. All questions were answered and informed consent was obtained. - Patient identification and proposed procedure were verified prior to the procedure by the physician, the nurse and the product developer. The procedure was verified in the pre-procedure area in the procedure room. - The medication list for this patient has been reviewed prior to the procedure and has been determined that the patient may proceed with the planned study. Any medication changes made as a result of the findings of this procedure have been discussed with the patient and/or sales representative sales manager at the time of discharge from the facility. After obtaining informed consent, the endoscope was passed under direct vision. Throughout the procedure, the patient's blood pressure, pulse, and oxygen saturations were monitored continuously.The colonoscopy was performed without difficulty. The patient tolerated the procedure well. The [id number]-[id number] Endoscope([id number]) was introduced through the mouth, and advanced to the second part of duodenum. Findings: There was an inlet patch in the proximal esophagus. There was evidence a short segment Cullen's, with an island at 38 cm and 2 tongues extending 1 cm above the GE junction at 39 cm. There were a few scant whitish plaques in the lower esophagus, likely very mild thrush. There was a small hiatal hernia. The stomach and duodenum were normal. Biopsies taken from GE junction. A wire was passed and the scope was withdrawn. A 16 and 18 mm Savary dilator were passed without trauma or resistance. Impression: Inlet patch. 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 Small hiatal hernia. Very mild thrush that is not likely to explain the patient's symptoms and does not need to be treated. Large bore dilator passed. Recommendation: Discharge pt home. Check Hp stool Ag and sprue serologies. Consider small bowel imaging to complete w/u of iron deficiency. Would ask PCP to consider swallow study and PPI trial to complete w/u of dysphagia. Leonora Liu MD 05/16/2018 10:21:38 AM This report has been signed electronically. [facility] Patient Name: Elmira Tavares Procedure Date: 08/18/2022 9:36 AM Date of : 1945 Admit Type: Outpatient Note Status: Finalized Date of : 1945 Admit Type: Outpatient Age: 76 Room: Endo 3 Gender: Female Note Status: Finalized Procedure: Colonoscopy Indications: Follow-up of chronic ulcerative pancolitis/hx of polyps Providers: Mynor Alvarado MD (Doctor), Nilsa Jacob RN, Eloisa Earl CRNA (Anesthesia Staff) Referring MD: Chelly Kessler MD (Referring MD) Medicines: See the Anesthesia note for documentation of the administered medications Complications: No immediate complications. Procedure: Pre-Anesthesia Assessment: - - Patient identification and proposed procedure were verified prior to the procedure by the physician and the nurse. The procedure was verified in the procedure area. - Prior to the procedure, a History and Physical was performed, and patient medications, allergies and sensitivities were reviewed. The patient's tolerance of previous anesthesia was reviewed. - The risks and benefits of the procedure and the sedation options and risks were discussed with the patient. All questions were answered and informed consent was obtained. After I obtained informed consent, the scope was passed under direct vision. All instruments were visually inspected immediately before and after removal from the patient to ensure they are fully intact. Throughout the procedure, the patient's blood pressure, pulse, and oxygen saturations were monitored continuously. The Plan B Acq[employer]itions-[id number] Colonoscope ([id number]) was introduced through the anus and advanced to the cecum, identified by appendiceal orifice and ileocecal valve. The colonoscopy was performed without difficulty. The patient tolerated the procedure well. The quality of the bowel preparation was poor. Findings & Specimens: The perianal and digital rectal examinations were normal. A moderate amount of stool was found in the entire colon, interfering with visualization. A tattoo was seen in the transverse colon. A post-polypectomy scar was found at the tattoo site. The exam was otherwise without abnormality on direct and retroflexion views. Impression: - Preparation of the colon was poor. - Stool in the entire examined colon. - A tattoo was seen in the transverse colon. A post-polypectomy scar was found at the tattoo site. - The examination was otherwise normal on direct and retroflexion views. - No specimens collected. - No endoscopic evidence of IBD. Recommendation: - Discharge patient to home. - Return to primary care physician as previously scheduled. Mynor Alvarado MD 08/18/2022 10:12:17 AM This report has been signed electronically. REASON FOR STUDY: resistant HTN CONCLUSIONS: Atrial fibrillation Prolonged QT interval or tu fusion, consider myocardial disease, electrolyte imbalance, or drug effects Abnormal ECG When compared with ECG of 03-MAR-2022 10:38, No significant change Ventricular Rate: 85 Atrial Rate: 78 QRS Duration: 100 QT/QTc: 428/509 ms P-R-T [place]: 0 : 63 : 56 degrees Echo Adult Transthoracic Echocardiography Report Study Date: 01/12/2023 10:49 AM Study Location: [facility] Patient Location: [place] [place] : 1945 Age: 77 yrs Gender: Female Referring Physician: EDI SARKAR Ordering Physician: EDI SARKAR Height: 70 in Weight: 186 lb BSA: 2.0 m2 Resting HR: 77 Order #: [id number] Billing #: [id number] Reason For Study: Preoperative cardiac assessment, paroxysmal atrial fibrillation, ischemic heart disease, mild aortic stenosis Interpretation Summary The examination is adequate to evaluate the referral indication. There was rate controlled atrial fibrillation during the examination. The LV wall thickness is mildly increased (concentric). The left ventricular wall motion is normal. Calculated LV ejection Fraction = 64% (bi-plane methodof discs). The left atrium is moderately enlarged (42-48 ml/m^2). The aortic valve is moderately calcified. Mild aortic valve stenosis is present. There is no significant aortic regurgitation. There is mild mitral annular calcification. Mild mitral regurgitation is present. Mild tricuspid regurgitation is present. There is no evidence of pulmonary hypertension. The aortic root is mildly enlarged ,3.8 cm. The proximal ascending thoracic aorta is normal sized. Compared to the previous study dated09/09/2021, the aortic root diameter was 3.7 cm at that time. Rate controlled atrial fibrillation is present the time of the present study as compared to sinus rhythm on 09/09/2021. Left Ventricle The left ventricular systolic function is normal. Calculated LV ejection Fraction = 64% (bi-plane method of discs). The left ventricular cavity size is normal. The LV wall thickness is mildly increased (concentric). There is no left ventricular mural thrombus. Left Ventricular Wall Motion The left vent ricular wall motion is normal. Right Ventricle The right ventricular cavity size is normal (basal dimension < 4.2 cm RV apical 4 chamber view). The right ventricular systolic function is normal asassessed by tricuspid annular plane systolic excursion (TAPSE) (normal >1.7 cm). Atria The left atrium is moderately enlarged (42-48 ml/m^2). The right atrial size is normal. Diastolic Function Lef t ventricular diastolic function is not assessed due to irregular cardiac rhythm. Aortic Valve The aortic valve has three leaflets. The aortic valve is moderately calcified. Mild aortic valve stenosis is present. There is no significant aortic regurgitation. Mitral Valve There is mild mitral annular calcification. The mitral valve leaflets thickness is mildly increased. Mitral stenosis is absent.Mild mitral ELMIRA ANGUS 01/12/2023 Page 1 of 3 01/12/2023 regurgitation is present. Tricuspid Valve The tricuspid valve anatomy is normal. Tricuspid stenosis is absent. Mild tricuspid regurgitation is present. Pulmonary Valve The pulmonary valve is inadequately visualized but the Doppler data is adequate for interpretation.. Pulmonic stenosis is absent. There is no significant pulmonary regurgitation. Pericardium No pericardial effusion is noted. Vessels The aortic root is mildly enlarged. The proximal ascending thoracic aorta is normal sized. The inferior vena cava is normal sized. Septae There is no evidence of an atrial septal defect but resolution does not allow assessment for a patent foramen ovale. There is no ventricular septal defect. Hemodynamics Normal IVC size and collapsability with sniff indicates a normal right atrial pressure of 3 mmHg. There is no evidence of pulmonary hypertension. Referral Diagnosis Ischemic heart disease [I25.9] Coronary artery disease involvingnative coronary artery of tribe heart without angina pectoris [I25.10] HTN, goal below 140/90 [I10] Persistent atrial fibrillation (HCC) [I48.19] Preoperative cardiovascular examination [Z01.810] Dyslipidemia, goal LDL below 70 [E78.5] Chronic diastolic congestive heart failure (HCC) Communication and Comprehension: Communication and Comprehension Communication and Comprehension Follow-up Patient cognition:: Oriented to person;Oriented to place;Oriented to time;Alert (12/14/231708) Alteration in memory:: Forgetfulness (12/14/231708) Patient able to understand instructions:: Written;Verbal (12/14/231708) Does the patient have any vision issues?: No (12/14/231708) Does the patient have hearing issues?: Yes (12/14/231708) Supports used:: (awaiting testing) (12/14/231708) Adventism or spiritual beliefs that impact treatment:: No (12/14/231708) Patient and Caregiver Support System: Patient lives: with a spouse and with children Means of Transportation: Family transports Patient lives in: Two Story - How many stairs: 1 flight Functional Status and ADL Skills: Ambulation: Cane and Walker ADLs/IADLs ADL/IADLs Does the patient need assistance with any of the following ADLs?: None (12/14/231708) Does the patient need assistance with any of the following IADLs?: Transportation;Shopping (12/14/231708) Fall Risk Assessment: Fall risk factors present. Balance or gait disturbances Lower extremity weakness Older than age 70 [id number]-[id number] Test: Not done fall risk Nutritional Health Checklist: Changed food due to illness or condition: Yes (2 pts) Eat fewer than 2 meals per day: No (0 pts) Eat few fruits veggies or milk products: No (0 pts) 3 or more drinks or beer, liquor, wine daily: No (0 pts) Tooth or mouth problem: No (0 pts) Not enough money to purchase food: No (0 pts) Eat alone: No (0 pts) 3 or more medications taken per day: Yes (2 pts) Weight change of 10 lbs. In 6 months: Loss, Yes (2 pts) Not always able to shop, cook or feed self: Yes (2 pts) Total points: 8 Nutritional Health Score & Recommendation: 6 or more: High nutritional risk Depression Screening: PHQ2/9 Screening PHQ2_9 Adult Little interest or pleasure in doing things: Not at all (12/14/231724) Feeling down, depressed or hopeless: Not at all (12/14/231724) PHQ Adult Total Score: 0 (12/14/231724) PHQ Adult Score Description: No Depression (12/14/231724) Social Determinants of Health Screening: SDoH Screening Tool Adult (for ages 18 years and over) Within the past 12 months, you worried that your food would run out before you got the money to buymore.: Sometimes true (12/14/231724) Within the past 12 months, the food you bought just didn't last and you didn't have money to get more.: Sometimes true (12/14/231724) Do you need food for this week?: No (12/14/231724) Do you currently live in a group home or have no steady place to sleep at night?: No (12/14/231724) Are you homeless or worried that you might be in the future?: No (12/14/231724) Has lack of transportation kept you from medical appointments, meetings, work, or from getting things needed for daily living? Check all that apply.: No (12/14/231724) Do you have any trouble paying for your medications, or do you think you might in the future?: No (12/14/231724) How often do you feel lonely or isolated from those around you?: Never (12/14/231724) Do you feel unsafe or have concerns for your safety?: No (12/14/231724) Do you feel overwhelmed with taking care of a child, family member or friend?: No (12/14/231724) Have you been unable to get clothing when it was really needed?: No (12/14/231724) Do you have trouble paying your heating, water, or electric bill?: No (12/14/231724) Are you unemployed or without regular income?: No (12/14/231724) Would you like help connecting to resources in any of these categories?: None (12/14/231724) Community Resources: Community Resources: Not Applicable Potential Resource Needs from Benefits Identified: No Benefits: Benefits Benefits Health plan benefits assessed: Adequate to cover care (12/14/231725) Is the patient a SNP?: No (12/14/231725) HRA Provider Assessment Documentation: Objective Past Medical History: Diagnosis Date Acute [place] ([facility]) 01/1993 Myocardial Infarction Acute pain of right knee 02/12/2021 Noted in january of 2021 Historical Black tarry stools 01/25/2021 Noted in 2020 historical BMI 31.0-31.9,adult Cerebrovascular accident (CVA) ([facility]) 10/24/2021 Not current CVA Chronic ischemic heart disease Compression fracture of lumbar vertebra ([facility]) 11/10/2018 Diabetes mellitus with peripheral angiopathy ([facility]) Diarrhea 01/25/2021 Noted in December of 2020 Historical DM type 2, goal A1c below 7 Dyslipidemia, goal LDL below 100 06/06/2009 Essential hypertension with goal blood pressure less than 140/90 Generalized osteoarthritis Incontinence of feces 01/25/2021 Inflammatory polyarthropathy ([facility]) Iron deficiency anemia Irritable bowel syndrome Malignant neoplasm of female breast (HCC) Breast, right, mastectomy with SLNB 10/25/2011 Methicillin resistant Staphylococcus aureus infection 10/24/2021 Mild sleep apnea Postprocedural seroma of a musculoskeletal structure following a musculoskeletal system procedure 02/21/2020 Rheumatoid arthritis (HCC) 12/28/2017 More specified Dx listed on PL Skin tear of right upper arm without complication 02/12/2021 Noted in 2020 Historical Subclinical hypothyroidism 09/24/2018 TSH 4.35/T4 1.25 Patient Active Problem List Diagnosis GENERAL OSTEOARTHROSIS Irritable bowel syndrome Type 2 diabetes mellitus with hemoglobin A1c goal of less than 7.0% ([facility]) HTN, goal below 130/80 Dyslipidemia, goal LDL below 70 Encounter for long-term (current) use of medications Anemia PVD (peripheral vascular disease) ([facility]) Mild sleep apnea Type 2 diabetes mellitus with peripheral angiopathy ([facility]) Type 2 diabetes mellitus with diabetic neuropathy, without long-term current use of insulin ([facility]) 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 ([facility]) Old [place] (myocardial infarction) Gastroesophageal reflux disease without esophagitis Nontoxic uninodular goiter Senile osteoporosis Coronary artery disease involving tribe coronary artery of tribe heart without angina pectoris History of breast cancer Longstanding persistent atrial fibrillation ([facility]) Personal history of fall Diabetic retinopathy of left eye associated with type 2 diabetes mellitus ([facility]) Urge and stress incontinence Vitamin D deficiency Status post renal artery angioplasty Status post lumbar spine operation Osteopenia Lumbar radiculopathy Internal hemorrhoids Hypothyroidism, unspecified History of modified radical mastectomy of right breast History of total knee arthroplasty History of repair of right rotator cuff History of cholecystectomy Diverticulosis of colon History of vertebral compression fracture Persistent atrial fibrillation ([facility]) Atherosclerosis of aorta ([facility]) Hypertensive heart disease with chronic diastolic congestive heart failure ([facility]) Food insecurity Mild mitral regurgitation Mild tricuspid regurgitation Mild aortic stenosis Thyroid cyst Cerebral atrophy ([facility]) Family History Problem Relation Name Age of Onset Diabetes Mother Asthma Father Review of patient's allergies indicates: Allergen Reactions Tello Inhibitors Hyperkalemia resulting in 2 hospitalizations Metformin Diarrhea Nadolol Itching Corgard itchy Nitroglycerin Other (Please comment) Headache that is only relieved with Morphine. Nsaids Nausea/vomiting relafen Current Outpatient Medications Medication Sig Dispense Refill ONETOUCH ULTRASOFT LANCETS [facility] Use to check blood sugars daily as directed E11.9 1 Box Dosing Unit11 Aspirin 81 MG Tablet Take 1 Tablet by mouth in the morning. Acetaminophen 500 MG Oral Capsule Take 1 Capsule by mouth every 4 hours as needed. [employer] Cleansing Enema Rectal Enema Administer into the rectum daily as needed for Constipation. Magnesium Hydroxide 400 MG/5ML Oral Suspension Take by mouth daily as needed for Constipation. Vitamin C 500 MG Oral Tablet (Ascorbic Acid) Take 1 Tablet by mouth in the morning. Iron (Ferrous Sulfate) 325 (65 Fe) MG Oral Tablet Take 1 Tablet by mouth in the morning. [employer] w/Device Kit Use to check blood sugars daily as directed E11.9 1 Kit 0 TriNovusuch VerSummize In Vitro Strip (Glucose Blood) Use to check blood sugars twice daily as directed Dx E11.9 200 Strip 3 Cholecalciferol 50 MCG (2000 UT) Oral Capsule DAILY Atorvastatin Calcium 80 MG Oral Tablet (Lipitor) Take 1 Tablet by mouth in the morning. 100 Tablet 3 Carvedilol 25 MG Oral Tablet (Coreg) Take 1.5 Tablets by mouth 2 times a day with morning and evening meals. 10 Tablet 3 Levothyroxine Sodium 25 MCG Oral Tablet (Levoxyl) TAKE 1 TABLET BY MOUTH EVERY MORNING. AT LEAST 30MINUTES PRIOR TO BREAKFAST OR OTHER MEDICATIONS 90 Tablet 3 Pantoprazole Sodium 40 MG Oral Tablet Delayed Release (Protonix) TAKE ONE TABLET BY MOUTH DAILY 90 Tablet 3 Furosemide 40 MG Oral Tablet (Lasix) Take 1 Tablet by mouth in the morning. 90 Tablet 3 Terazosin HCl 2 MG Oral Capsule TAKE 2 CAPSULES BY MOUTH AT ONCE DAILY AT BEDTIME. 180 Capsule 3 hydrALAZINE HCl 100 MG Oral Tablet TAKE 1 TABLET BY MOUTH IN THE MORNING AND 1 TABLET AT NOON AND 1TABLET BEFORE BEDTIME 270 Tablet 3 Spironolactone 25 MG Oral Tablet (Aldactone) Take 1 Tablet by mouth in the morning. 90 Tablet 3 Pregabalin 25 MG Oral Capsule (Lyrica) Take 1 Capsule by mouth in the morning and 1 Capsule before bedtime. 60 Capsule 1 cloNIDine HCl 0.1 MG Oral Tablet (Catapres) TAKE ONE TABLET BY MOUTH IN THE MORNING AND ONE BEFORE BEDTIME 180 Tablet 3 amLODIPine Besylate 5 MG Oral Tablet (Norvasc) TAKE 1 TABLET BY MOUTH TWICE DAILY EVERY MORNING ANDBEFORE BEDTIME 180 Tablet 1 Warfarin Sodium 4 MG Oral Tablet (Jantoven) TAKE 1 TO 1& 1/2 TABLETS BY MOUTH EVERY DAY OR DIRECTED BY COUMADIN CLINIC 135 Tablet 1 Methotrexate 2.5 MG Oral Tablet Take 6 Tablets by mouth once a week. 30 Tablet 3 Folic Acid 1 MG Oral Tablet Take 1 Tablet by mouth in the morning. 30 Tablet 5 Sertraline HCl 25 MG Oral Tablet (Zoloft) TAKE 1 TABLET BY MOUTH ONCE DAILY 90 Tablet 1 No current facility-administered medications for this visit. Past Surgical History: Procedure Laterality Date ANESTH, TOTAL KNEE REPLACEMENT 09/21/1995 left ANGIOPLASTY RENAL/MESENTERIC,O 1991 COLONOSCOPY, DIAGNOSTIC (RECTUM) 03/22/2018 adenomatous & serrated adenomatous polyps, repeat 6 mo/COLONOSCOPY FLEXIBLE PROXIMAL DIAGNOSTICperformed by Martina Cancino MD at ENDOSCOPY [facility] COLONOSCOPY, DIAGNOSTIC (RECTUM) 09/26/2018 adenomatous polyp, repeat 1 yr/COLONOSCOPY FLEXIBLE PROXIMAL DIAGNOSTIC performed by Martina Cancino MD at ENDOSCOPY [facility] COLONOSCOPY, DIAGNOSTIC (RECTUM) 11/14/2020 benign adenomatous polyps, repeat 3 yrs / COLONOSCOPY FLEXIBLE PROXIMAL DIAGNOSTIC performed by Martina Cancino MD at ENDOSCOPY [facility] COLONOSCOPY, DIAGNOSTIC (RECTUM) 08/18/2022 prep-poor, stool in entire exam / normal scope / no specimens collected / COLONOSCOPY FLEXIBLE PROXIMAL DIAGNOSTIC performed by Mynor Alvarado MD at ENDOSCOPY [facility] ECHO, COMPLETE (2D), TRANS-THORACIC 11/02/2018 mild conc LVH with normal LV size and function EF 70%, grade I diastolic dysfunction EGD, FLEXIBLE, DIAGNOSTIC 05/16/2018 normal bx/ESOPHAGOGASTRODUODENOSCOPY (EGD), FLEXIBLE, TRANSORAL, DIAGNOSTIC performed by Leonora Liu MD at ENDOSCOPY [facility] LAPAROSCOPY, SURGICAL/REMOVE DUCTS 1979 MASTECTOMY, MODIFIED RADICAL 10/24/2010 10/24/2010 right mod. radicala mastectomy with SLNB - [facility] - DR. Gerber MISCELLANEOUS ORDER ([facility] ONLY) 2012 right shoulder replacement MISCELLANEOUS ORDER ([facility] ONLY) left TKR, redo MISCELLANEOUS ORDER ([facility] ONLY) left wrist surgery NECK/CHEST SUBQ TUMOR REMOVAL, 3 CM OR MORE Right 05/22/2014 EXCISION NECK/CHEST SUBQ TUMOR, 3 CM OR MORE performed by Ray Gerber MD at OR [facility] OTHER 03/2006 Right knee replacement OTHER 1998 cholecystectomy OTHER 1992 Angioplasty [place] REMOVE CATARACT, INSERT LENS PROSTH Right 03/26/2021 EXTRACAPSULAR CATARACT REMOVAL WITH INTRAOCULAR LENS performed by Doyle Heredia DO at [facility] REMOVE CATARACT, INSERT LENS PROSTH Left 03/11/2022 LEFT EXTRACAPSULAR CATARACT REMOVAL WITH INTRAOCULAR LENS performed by Doyle Heredia DO at [facility] REPAIR RUPTURED ROTATOR CUFF, ACUTE 06/2012 [facility] TREAT NOSE FX W/STABILIZATION N/A 09/15/2018 CLOSED TREATMENT NASAL FRACTURE WITH STABILIZATION performed by Marlon Rust DO at OR [facility] US GUIDED BREAST BIOPSY 09/30/2010 Immunization History Administered Date(s) Administered COVID-19 mRNA, LNP-s, No Preserve, 2-Dose Series (Diabetica) 10/09/2020, 10/30/2020 DT - Diptheria/Tetanus (PEDS) 04/13/2002 Diptheria/Tetanus (Adult) 06/28/1989 Epoetin F[place]ad 05/28/2011 PPD 01/19/2018 Pneumococcal Conjugate Vacc, 13 Valent (Prevnar) 03/15/2018 Pneumococcal Conjugate Vaccine, 20-valent ([id number]) 10/26/2023 Pneumococcal Conjugate Vaccine, 7 Valent 07/12/2014 Pneumococcal Polysaccharide PPV23 (Pneumovax) 03/25/1993, 06/28/2001, 01/12/2002 Seasonal Influenza Virus Vaccine, Unspecified Formulation 04/28/1995, 04/08/1998, 06/17/2001, 04/13/2002, 03/26/2015, 03/25/2016, 04/10/2017, 03/15/2018, 05/10/2019, 04/11/2020, 03/13/2021 Seasonal Influenza, PF, 6 M & above, IM , (FluLaval or Fluzone) 03/15/2018 Seasonal Influenza, Quadrivalent Hd (Fluzone Hd) 03/13/2021, 04/13/2023 Seasonal Influenza, Split, IIV3, With Preserve, Inj 06/17/2001, 04/13/2002, 05/06/2012, 04/17/2013 Seasonal Influenza, Trivalent, Adjuvanted, 65+ yrs 05/10/2019, 04/11/2020 Seasonal Influenza, Trivalent, High Dose, No Preserve, IM 07/12/2014, 03/26/2015, 03/25/2016, 04/10/2017 TD - Tetanus/Diptheria (ADULT) 04/13/2002, 01/25/2017 TDAP (age 10 and older)(Boostrix) 03/15/2018 Unknown Immunization 06/17/2001 Varicella Zoster Vaccine (Adult) 01/15/2016 Preventative Plan: Mammogram (Every 2 years for women 50-74 years of age): 2019 cat 1 neg Pap Smear (every 3 years): 2000 Diabetes (Fasting plasma glucose every 3 years): Hemoglobin AIC Results: Lab Results Component Value Date/Time HEMOGLOBIN A1C - [facility] 9.0 (H) 10/29/2023 10:59 AM HEMOGLOBIN A1C - [facility] 6.6 (H) 06/01/2023 10:44 AM HEMOGLOBIN A1C - [facility] 6.9 (H) 01/07/2023 09:22 AM HEMOGLOBIN A1C - [facility] 5.5 07/05/2020 01:05 PM HEMOGLOBIN A1C - [facility] 6.4 (H) 01/03/2020 01:10 PM HEMOGLOBIN A1C - [facility] 8.0 (H) 05/01/2019 07:54 AM Lipid Testing (Every 5 years): Lipid Panel Results: Results for orders placed or performed in visit on 10/19/23 LIPID PANEL WITH DIRECT LDL IF TG IS HIGH Result Value Ref Range Triglycerides 120 <=174 mg/dL Cholesterol 127 <200 mg/dL HDL Cholesterol 49 (L) >49 mg/dL Non-HDL Cholesterol 78 <=159 mg/dL LDL Cholesterol 54 <=129 mg/dL Colonoscopy or other screenin see above Bone Density (every 2+ years): 2022 high fx risk Health Maintenance Topic Date Due Zoster Vaccines (1 of 2) 03/11/2016 COVID-19 Vaccine (3 - Pfizer risk series) 11/27/2020 Diabetic Foot Exam 07/07/2023 Diabetic Eye Exam 04/29/2024 HbA1c 04/30/2024 DXA Scan 05/03/2024 Albumin/Creatinine Ratio 06/01/2024 TSH 06/01/2024 GFR 10/18/2024 Depression Screening 10/25/2024 Colonoscopy 08/18/2025 DTaP,Tdap,and Td Vaccines (4 - Td or Tdap) 03/15/2028 VITAMIN D LEVEL ONCE IN A LIFETIME-USE SMARTSET# [id number] Completed Influenza Vaccine (FLU shot) Completed Pneumococcal Vaccine: 65+ Years Completed Hepatitis B Aged Out MENINGOCOCCAL (MENACTRA/MENVEO) Aged Out GARDASIL-HPV IMMUNIZATION SERIES Aged Out RETIRED - COLONOSCOPY-ANNUAL AGES 18-100 Discontinued Review of Systems: Review of Systems Musculoskeletal: Positive for back pain. All other systems reviewed and are negative. Physical Exam: Vitals: 12/14/23 1701 Pulse: 86 Resp: 18 SpO2: 93% BP: 112/68 Pain Screening: Yes - Location: low back, When: every day, Duration: constant, Aggravating Factors:walking, Relieved by: rest Pain Scale: 8 out of 10 There is no height or weight on file to calculate BMI. Physical Exam Constitutional: Appearance: Amber is obese. Comments: Chronically ill in appearance HENT: Head: Normocephalic and atraumatic. Mouth/Throat: Mouth: Mucous membranes are moist. Eyes: Extraocular Movements: Extraocular movements intact. Neck: Vascular: No carotid bruit. Cardiovascular: Rate and Rhythm: Rhythm irregular. Heart sounds: Murmur heard. Pulmonary: Effort: Pulmonary effort is normal. Breath sounds: Normal breath sounds. Abdominal: General: Bowel sounds are normal. Palpations: Abdomen is soft. Musculoskeletal: General: No swelling. Cervical back: Neck supple. Skin: General: Skin is warm and dry. Neurological: General: No focal deficit present. Mental Status: Amber is alert and oriented to person, place, and time. Gait: Gait normal. Psychiatric: Mood and Affect: Mood normal. Behavior: Behavior normal. Lab Data: Lab Results Component Value Date/Time BUN 13 09/22/1996 06:30 PM BUN - [facility] 20 10/19/2023 08:00 AM BUN - [facility] 12 07/19/2020 10:10 AM Lab Results Component Value Date/Time CREATININE 0.7 09/22/1996 06:30 PM CREATININE - [facility] 1.0 10/19/2023 08:00 AM CREATININE - [facility] 0.7 07/19/2020 10:10 AM CREATININE, RANDOM URINE - [facility] 44 06/01/2023 10:50 AM CREATININE, RANDOM URINE - [facility] 38 01/03/2020 01:10 PM CREATININE-OUTSIDE LAB 0.72 01/12/2023 12:00 AM Lab Results Component Value Date/Time GLUCOSE 140 (H) 09/22/1996 06:30 PM GLUCOSE - [facility] 253 (H) 10/19/2023 08:00 AM GLUCOSE - [facility] 121 (H) 07/19/2020 10:10 AM GLUCOSE METER POCT - [facility] 188 (H) 08/18/2022 09:00 AM GLUCOSE METER POCT - [facility] 112 09/26/2018 10:37 AM GLUCOSE URINE, POCT - [facility] 100 10/26/2023 12:00 AM GLUCOSE, URINE - [facility] Negative 08/10/2022 12:20 PM GLUCOSE, URINE - [facility] neg 07/05/2020 12:00 AM GLUCOSE, WHOLE BLOOD - [facility] 111 08/15/2002 12:00 AM GLUCOSE-OUTSIDE LAB 148 (A) 01/12/2023 12:00 AM No components found for: "[id number]" Lab Results Component Value Date/Time LD - [facility] 140 07/06/1997 12:50 PM LDL (CALCULATED) 180. (HH) 09/22/1996 06:30 PM LDL CHOLESTEROL (CALCULATED) - [facility] 54 10/19/2023 08:00 AM LDL CHOLESTEROL (CALCULATED) - [facility] 68 10/10/2019 11:06 AM LDL CHOLESTEROL (DIRECT MEASURE) - [facility] 86 05/29/2021 09:29 AM LDL CHOLESTEROL (DIRECT MEASURE) - [facility] NOT APPLICABLE 10/10/2019 11:06 AM LDL CHOLESTEROL (DIRECT MEASURE) - [facility] 57 12/22/2016 01:42 PM No results found for: "MICROALBUMIN" Assessment/Plan: Elmira"Amber" was seen today for adult annual wellness visit, initial visit. Diagnoses and all orders for this visit: Iron deficiency anemia, unspecified iron deficiency anemia type Atherosclerosis of aorta (HCC) Coronary artery disease involving tribe coronary artery of tribe heart without angina pectoris Diabetic retinopathy of left eye associated with type 2 diabetes mellitus, macular edema presence unspecified, unspecified retinopathy severity (HCC) Diverticulosis of colon Dyslipidemia, goal LDL below 70 Gastroesophageal reflux disease without esophagitis Food insecurity History of breast cancer History of cholecystectomy History of modified radical mastectomy of right breast History of repair of right rotator cuff History of total bilateral knee replacement 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 (HCC) History of vertebral compression fracture Type 2 diabetes mellitus with hemoglobin A1c goal of less than 7.0% (HCC) Type 2 diabetes mellitus with diabetic neuropathy, without long-term current use of insulin (HCC) Longstanding persistent atrial fibrillation (HCC) Type 2 diabetes mellitus with peripheral angiopathy (HCC) PVD (peripheral vascular disease) (HCC) Cerebral atrophy (HCC) HTN, goal below 130/80 Hypertensive heart disease with chronic diastolic congestive heart failure (HCC) Acquired hypothyroidism Internal hemorrhoids Irritable bowel syndrome with constipation Personal history of fall Senile osteoporosis Status post lumbar spine operation Status post renal artery angioplasty Urge and stress incontinence Vitamin D deficiency Mild mitral regurgitation Mild tricuspid regurgitation Mild aortic stenosis Thyroid cyst PLAN Pt reports no active issues or adverse effects to the established treatment plan. No changes at this time. Strongly advised to contact her care team if changes occur. Care Planning (3+ Personal and/or Medical Goals): Less pain Maintain independence Maintain current activity level Treatment Plan: Patient continues to work on their progress to the goals set by themselves and their PCP Follow Up/Handouts: CAHAWV f/u one year I spent a total of Greater than 55 mins (exact time 80 mins) on the date of service in preparation,delivery, and documentation of the care provided to Elmira Tavares excluding any time spent inthe performance of separately billed services. Delmy Boggs PA-C documented in this encounter Plan of Treatment Upcoming Encounters Date Type Department Care Team (Late st Contact Info) Description 01/04/2024 11:00 AM EDT Anticoagulation Pharmacy, [address] [address] [facility] [place] [address] 03/24/2024 9:30 AM EDT Office Visit Cardiology, [facility] [address] [facility] [place] [address] Corrine Quinn PA-C [address] [facility] [place] [address] 05/11/2024 10:15 AM EST Office Visit Ophthalmology, [facility] [address] [facility] [place] [address] Doyle Heredia, DO [address] [facility] [place] [address] 05/18/2024 10:40 AM EST Office Visit Family [facility] [place] [address] [place] [phone] Fabio Clarke MD [address] [place] [address] 05/18/2024 1:00 PM EST Office Visit Dermatology, [place] [address] [place] [address] Sully Kearns, PAAmita [address] [place] [address] [place] [address] 06/12/2024 10:30 AM EST Office Visit Rheumatology [place] [id number] [facility] [place] [address] Carlitos Castro CRNP [address] [facility] [place] [address] 12/14/2024 9:00 AM EDT Home Visit Care at Home [address], [place] [phone] Delmy Boggs PA-C [address] [place] [address] Health Maintenance Due Date Last Done Comments [...] D LEVEL ONCE IN A LIFETIME-USE SMARTSET# [id number] Completed 12/03/2023, 06/22/2023, 06/01/2023, Additional history exists [...] this encounter Medical Devices Implanted Type Area Economic History Teacher Device Identifier Shelf Expiration Date Model / Serial / Lot Lead- 3 Implanted:Qt y: 1 on 01/26/[address], DO Lead Back 1295.04 07/28/2025 [id number] / / Description:Implanted at [facility] Neurostimula tor-01/26/2023 Implanted: by Rashaad Street DO (Quantity not on file) Neurostimulator 1295.04 10/25/2025 [id number] / [id number] / Description:Nikita page at [facility] Clip Quick 2.8mm 230cm - [id number] Implanted:Qt y: 4 on 11/14/2020 by Martina Cancino MD at ENDOSCOPY [facility] [employer] 06/27/2023 HX-202UR. A / / Lens 19.5 [id number] - [id number] - [id number] Implanted:Qt y: 1 on 03/26/2021 by Doyle Heredia DO at OR [facility] Right: Eye BRII : SURGICAL 10/29/2025 [id number] / [id number] / Lens 19.5 [id number] - [id number] - [id number] Implanted:Qt y: 1 on 03/11/2022 by Doyle Heredia DO at OR [facility] Left: Eye BRII : SURGICAL 10/29/2025 [id number] / [id number] / documented as of this encounter Visit Diagnoses Diagnosis Iron deficiency anemia, unspecified iron deficiency anemia type- Primary Atherosclerosis of aorta (HCC) Atherosclerosis of aorta Coronary artery disease involving tribe coronary artery of tribe heart without angina pectoris Diabetic retinopathy of left eye associated with type 2 diabetes mellitus, macular edema presence unspecified, unspecified retinopathy severity (HCC) Diverticulosis of colon Diverticulosis of colon (without mention of hemorrhage) Dyslipidemia, goal LDL below 70 Other and unspecified hyperlipidemia Gastroesophageal reflux disease without esophagitis Esophageal reflux Food insecurity History of breast cancer Personal history of malignant neoplasm of breast History of cholecystectomy Other acquired absence of organ History of modified radical mastectomy of right breast History of repair of right rotator cuff Personal history of surgery to other organs History of total bilateral knee replacement 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 (HCC) History of vertebral compression fracture Type 2 diabetes mellitus with hemoglobin A1c goal of less than 7.0% (HCC) Type 2 diabetes mellitus with diabetic neuropathy, without long-term current use of insulin (HCC) Longstanding persistent atrial fibrillation (HCC) Type 2 diabetes mellitus with peripheral angiopathy (HCC) Type II or unspecified type diabetes mellitus with peripheral circulatory disorders, not stated as uncontrolled PVD (peripheral vascular disease) (HCC) Peripheral vascular disease, unspecified Cerebral atrophy (HCC) Cerebral degeneration, unspecified HTN, goal below 130/80 Unspecified essential hypertension Hypertensive heart disease with chronic diastolic congestive heart failure (HCC) Acquired hypothyroidism Unspecified hypothyroidism Internal hemorrhoids Internal hemorrhoids without mention of complication Irritable bowel syndrome with constipation Irritable bowel syndrome Personal history of fall Senile osteoporosis Status post lumbar spine operation Other postprocedural status Status post renal artery angioplasty Other postprocedural status Urge and stress incontinence Mixed incontinence urge and stress (male)(female) Vitamin D deficiency Unspecified vitamin D deficiency Mild mitral regurgitation Mitral valve disorders Mild tricuspid regurgitation Diseases of tricuspid valve Mild aortic stenosis Aortic valve disorders Thyroid cyst Cyst of thyroid documented in this encounter Advance Directives * Full Code (Latest Code Status on File) Date Activated Date Inactivated Comments 03/11/2022 7:56 AM 03/11/2022 2:41 PM Question Answer Comments Discussion of Advance Direct donnie occurred with: Not Discussed due to patient's condition Care Teams Lowerator Operator Relationship Specialty Start Date End Date Fabio Clarke MD [address] [place] [address] PCP - General Family Medicine 08/04/22 documented as of this encounter
--- OUTSIDE RECORDS SUMMARY | 2024-01-06 14:20 | External Medical Summary | Summary of Care ---
Author Name Unknown Organization [facility] Address [address] [place] [address] Phone [phone] Care Team Providers Care Rest Room Maid Name Role Phone Fabio Clarke MD Primary Care Provider [phone] Reason for Visit * Reason Comments eRx-Medication Refill Encounter Details Date Type Department Care Team (Late st Contact Info) Description 12/28/2023 Refill [facility] [address] [place] [address] Fabio Clarke MD [address] [place] [address] Type 2 diabetes mellitus with diabetic neuropathy, without long-term current use of insulin ([facility]) Allergies Active Allergy Reactions Criticality Noted Date Comments Tello Inhibitors 05/08/2021 Hyperkalemia resulting in 2 hospitalizations Metformin Diarrhea 11/05/2022 Nadolol Itching 03/17/1999 Corgard itchy Nitroglycerin Other (Please comment) 02/09/2011 Headache that is only relieved with Morphine. Nsaids Nausea/vomiting 03/17/1999 relafen documented as of this encounter (statuses as of 12/29/2023) Medications Medication Sig Dispensed Refills Start Date End Date Status ONETOUCH ULTRASOFT LANCETS MISCIndications:D M type 2 with diabetic peripheral neuropathy (HCC) Use to check blood sugars daily as directed E11.9 1 Box Dosing Unit 11 9 Active Aspirin 81 MG TabletIndications :in am Take 1 Tablet by mouth in [...] (Ferrous Sulfate) 325 (65 Fe) MG Oral TabletIndications :1 tablet in am Take 1 Tablet by mouth in the morning. 1 Active [employer] Verio w/Device KitIndications:DM type 2 with diabetic peripheral neuropathy (HCC) Use to check blood sugars daily as directed E11.9 1 Kit 1 Active [employer] Verio In Vitro Strip (Glucose Blood)Indications :DM type 2 with diabetic peripheral neuropathy (HCC) Use to check blood sugars twice daily as directed Dx E11.9 200 Strip 3 1 Active Cholecalciferol 50 MCG (2000 UT) Oral Capsule DAILY 2 Active Atorvastatin Calcium 80 MG Oral Tablet (Lipitor) Take 1 Tablet by mouth in the morning. 100 Tablet 3 3 Active Carvedilol 25 MG Oral Tablet (Coreg)Indication s:Coronary artery disease involving [place] croix coronary artery of [place] cro[place] heart without angina pectoris,HTN, goal below 140/90 Take 1.5 Tablets by mouth 2 times a day with morning and evening meals. 10 Tablet 3 3 Active Levothyroxine Sodium 25 MCG Oral Tablet (Levoxyl) TAKE 1 TABLET BY MOUTH EVERY MORNING. AT LEAST 30 MINUTES PRIOR TO BREAKFAST OR OTHER MEDICATIONS 90 Tablet 3 3 Active Pantoprazole Sodium 40 MG Oral Tablet Delayed Release (Protonix) TAKE ONE TABLET BY MOUTH DAILY 90 Tablet 3 4 Active Furosemide 40 MG Oral Tablet (Lasix)Indication s:HTN, goal below 140/90 Take 1 Tablet by mouth in the morning. 90 Tablet 3 4 Active Terazosin HCl 2 MG Oral CapsuleIndication s:HTN, goal below 140/80,Dizziness TAKE 2 CAPSULES BY MOUTH AT ONCE DAILY AT BEDTIME. 180 Capsule 3 4 Active hydrALAZINE HCl 100 MG Oral TabletIndications :HTN, goal below 140/90 TAKE 1 TABLET BY MOUTH IN THE MORNING AND 1 TABLET AT NOON AND 1 TABLET BEFORE BEDTIME 270 Tablet 3 4 Active Spironolactone 25 MG Oral Tablet (Aldactone)Indica tions:HTN, goal below 130/80,Chronic diastolic congestive heart failure (HCC),Persistent atrial fibrillation (HCC) Take 1 Tablet by mouth in the morning. 90 Tablet 3 4 Active cloNIDine HCl 0.1 MG Oral Tablet (Catapres)Indicat ions:HTN, goal below 140/80 TAKE ONE TABLET BY MOUTH IN THE MORNING AND ONE BEFORE BEDTIME 180 Tablet 3 4 Active amLODIPine Besylate 5 MG Oral Tablet (Norvasc)Indicati ons:Resistant hypertension,HTN, goal below 140/90,Longstandi ng persistent atrial fibrillation (HCC),Atheroscler osis of aorta (HCC) TAKE 1 TABLET BY MOUTH TWICE DAILY EVERY MORNING AND BEFORE BEDTIME 180 Tablet 1 4 Active Warfarin Sodium 4 MG Oral Tablet (Jantoven) TAKE 1 TO 1& 1/2 TABLETS BY MOUTH EVERY DAY OR DIRECTED BY COUMADIN CLINIC 135 Tablet 1 4 Active Methotrexate 2.5 MG Oral Tablet Take 6 Tablets by mouth once a week. 30 Tablet 3 4 Active Folic Acid 1 MG Oral Tablet Take 1 Tablet by mouth in the morning. 30 Tablet 5 4 Active Sertraline HCl 25 MG Oral Tablet (Zoloft)Indicatio ns:Major depression single episode, in partial remission (HCC) TAKE 1 TABLET BY MOUTH ONCE DAILY 90 Tablet 1 4 Active Pregabalin 25 MG Oral Capsule (Lyrica)Indicatio ns:Type 2 diabetes mellitus with diabetic neuropathy, without long-term current use of insulin (HCC) Take 1 Capsule by mouth in the morning and 1 Capsule before bedtime. 60 Capsule 1 4 Active Pregabalin 25 MG Oral Capsule (Lyrica)Indicatio ns:Type 2 diabetes mellitus with diabetic neuropathy, without long-term current use of insulin (HCC) Take 1 Capsule by mouth in the morning and 1 Capsule before bedtime. 60 Capsule 1 4 12/29/19 24 Discontinued documented as of this encounter (statuses as [...] cancer 11/06/2019 Coronary artery disease invo lving [place] croix coronary artery of [place] croix heart without angina pectoris 07/04/2019 Senile osteoporosis [...] 36.9 with serious comorbidity 11/17/[address] croix co ronary artery of [place] croix heart without angina pectoris 11/17/201806/2021 Arteriosclerotic dementia [...] mRNA, LNP-s, No Pre serve, 2-Dose Series (Join The Wellness Team) 10/30/2020,10/09/2020 DT - Diptheria/Tetanus (PEDS) 04/13/2002 PPD 01/19/2018 Pneumococcal Conjugate Vacc, 13 Valent (Prevnar) 03/15/2018 Pneumococcal Conjugate Vacci ne, 20-valent ([id number]) 10/26/2023 Pneumococcal Conjugate Vacci ne, 7 Valent [...] Encounter - Fabio Clarke MD - 12/29/2023 12:32 PM EDTSigned Prescriptions: Disp Refills Pregabalin 25 MG Oral Capsule (Lyrica) 60 Cap*1 Sig: Take 1 Capsule by mouth in the morning and 1 Capsule before bedtime.Authorizing Provider: FABIO CLARKE--- * Telephone Encounter - Caterina Cuevas [facility] - 12/29/2023 10:33 AM EDT Pending Prescriptions: Disp Refills Pregabalin 25 MG Oral Capsule (Lyrica) 60 Cap*1 Sig: Take 1 Capsule by mouth in the morning and 1 Capsule before bedtime. * Telephone Encounter - Caterina Cuevas [facility] - 12/29/2023 10:30 AM EDT I have reviewed the patients controlled substance dispensing history in the Prescription Drug Monitoring Program in compliance with the [facility] regulations before prescribing a controlled substance. PDMP checked on 12/29/2023. Pending Prescriptions: Disp Refills Pregabalin 25 MG Oral Capsule (Lyrica) [P*60 Cap*0 Sig: Take 1 Capsule by mouth in the morning and 1 Capsule before bedtime. Last Visit: 10/26/2023 (in office), Visit date not found (telemedicine) Next Visit: 05/18/2024 Date medication was last filled: 11/25/23 Date medication is due for refill: 12/24/23 Pharmacy: [id number] Is this request for a controlled substance? Yes and Urine Drug Screen Not completed Toxicology results: No results found. However, due to the size of the patient record, not all encounters were searched.Please check Results Review for a complete set of results. Please approve if appropriate. Thank you, Caterina Cuevas, PharmD Clinical Pharmacist [facility] ([facility]) [phone] 12/29/2023, 10:33 AM documented in this encounter Plan of Treatment Upcoming Encounters Date Type Department Care Team (Late st Contact Info) Description 01/04/2024 11:00 AM EDT Anticoagulation Pharmacy, [address] [address] [facility] [address] [place] [address] 03/24/2024 9:30 AM EDT Office Visit Cardiology, [facility] [address] [facility] [place] [address] Corrine Quinn PA-C [address] [place] [address] 05/11/2024 10:15 AM EST Office Visit Ophthalmology, [facility] [address] [place] [address] Doyle Heredia, DO [address] [place] [address] 05/18/2024 10:40 AM EST Office Visit Family Practice, [place] [address] [place] [facility] [id number] Fabio Clarke MD [address] [place] [address] 05/18/2024 1:00 PM EST Office Visit Dermatology, [place] [address] [place] [facility] [address] Sully Kearns PA-C [address] [place] [address] [place] [address] 06/12/2024 10:30 AM EST Office Visit Rheumatology [place] [phone] [facility] [place] [address] Carlitos Castro CRNP [address] [facility] [place] [address] 12/14/2024 9:00 AM EDT Home Visit Care at Home [address] [place], [place] [phone] Delmy Boggs PA-C [address] [place], [place] [phone] Health Maintenance Due Date Last Done Comments [...] D LEVEL ONCE IN A LIFETIME-USE SMARTSET# [id number] Completed 12/03/2023, 06/22/2023, 06/01/2023, Additional history exists [...] this encounter Medical Devices Implanted Type [facility] Device Identifier Shelf Expiration Date Model / Serial / Lot Lead- 3 Implanted:Qt y: 1 on 01/26/[address], DO Lead Back 1295.04 07/28/2025 [id number] / / Description:Implanted at [facility] Neurostimula tor-01/26/2023 Implanted: by Rashaad Street DO (Quantity not on file) Neurostimulator 1295.04 10/25/2025 [id number] / [id number] / Description:Nikita Cole Impl anted at [facility] Clip Quick 2.8mm 230cm - [id number] Implanted:Qt y: 4 on 11/14/2020 by Martina Cancino MD at [facility] [employer] 06/27/2023 HX-202UR. A / / Lens 19.5 [id number] - [id number] - [id number] Implanted:Qt y: 1 on 03/26/2021 by Doyle Heredia DO at OR [facility] Right: Eye BRII : SURGICAL 10/29/2025 [id number] / [id number] / Lens 19.5 [id number] - [id number] - [id number] Implanted:Qt y: 1 on 03/11/2022 by Doyle Heredia DO at OR [facility] Left: Eye BRII : SURGICAL 10/29/2025 [id number] / [id number] / documented as of this encounter Visit Diagnoses Diagnosis Type 2 diabetes mellitus with diabetic neuropathy, without long-term current use of insulin (HCC) documented in this encounter Advance Directives * Full Code (Latest Code Status on File) Date Activated Date Inactivated Comments 03/11/2022 7:56 AM 03/11/2022 2:41 PM Question Answer Comments Discussion of Advance Direct donnie occurred with: Not Discussed due to patient's condition Care Teams Rest Room Maid Relationship Specialty Start Date End Date Fabio Clarke MD [address] [facility] [place] [address] PCP - General Family Medicine 08/04/22 documented as of this encounter
--- OUTSIDE RECORDS SUMMARY | 2024-01-06 14:20 | External Medical Summary | Summary of Care ---
Author Name Unknown Organization [facility] Address [address] [place] [address] Phone [phone] Care Team Providers Care Ammunition Officer Name Role Phone Fabio Clarke MD Primary Care Provider [phone]- [phone] Reason for Visit * Reason Comments eRx-Medication Refill Encounter Details Date Type Department Care Team (Late st Contact Info) Description 12/11/2023 Refill [facility] [address] [place] [address] Fabio Clarke MD [address] [place] [address] Major depression single episode, in partial remission (HCC) Allergies Active Allergy Reactions Criticality Noted Date Comments Tello Inhibitors 05/08/2021 Hyperkalemia resulting in 2 hospitalizations Metformin Diarrhea 11/05/2022 Nadolol Itching 03/17/1999 Corgard itchy Nitroglycerin Other (Please comment) 02/09/2011 Headache that is only relieved with Morphine. Nsaids Nausea/vomiting 03/17/1999 relafen documented as of this encounter (statuses as of 12/11/2023) Medications Medication Sig Dispensed Refills Start Date [...] by mouth in the morning. 1 Active [employer] Verio w/Device KitIndications:DM type 2 with diabetic peripheral neuropathy (HCC) Use to check blood sugars daily as directed E11.9 1 Kit 1 Active [employer] VerPaxera In Vitro Strip (Glucose Blood)Indications :DM type [...] Oral Tablet (Coreg)Indication s:Coronary artery disease involving [place] coronary artery of [place] heart without angina pectoris,HTN, goal below 140/90 [...] the morning. 90 Tablet 3 4 Active Pregabalin 25 MG Oral Capsule (Lyrica)Indicatio ns:Type 2 diabetes mellitus with diabetic neuropathy, without long-term current use of insulin (HCC) Take 1 Capsule by mouth in the morning and 1 Capsule before bedtime. 60 Capsule 1 4 Active cloNIDine HCl 0.1 MG Oral [...] ONCE DAILY 90 Tablet 1 4 Active Sertraline HCl 25 MG Oral Tablet (Zoloft)Indicatio ns:in am Take 1 tablet by mouth daily. 90 Tablet 3 3 12/11/19 24 Discontinued documented as of this encounter (statuses as of 12/11/2023) Active Problems Problem Noted Date Diagnosed Date Food insecurity 11/08/2023 Overview: Per [employer] [...] cancer 11/06/2019 Coronary artery disease invo lving [place] coronary artery of [place] heart without angina pectoris 07/04/2019 Senile osteoporosis 05/15/2019 Nontoxic uninodular goiter 11/17/2018 Gastroesophageal reflux disease without esophagi tis 11/01/2018 Rheumatoid arthritis 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 03/24/2018 HTN, goal below 140/90 03/24/[address] (myocardial infarction) 03/24/2018 Type 2 diabetes mellitus [...] as of this encounter (statuses as of 12/11/2023) Resolved Problems Problem Noted Date Diagnosed Date [...] hands with negative rheumatoid factor 07/04/2019 09/27/[address] (myocardial infarction) 07/04/2019 09/26/2021 Major depression single epis ode, in partial remission 03/23/2019 08/26/2023 Severe obesity with body mas s index (BMI) of 36.0 to 36.9 with serious comorbidity 11/17/2018 Atherosclerosis of [place] co ronary artery of [place] heart without angina pectoris 11/17/201806/2021 Arteriosclerotic dementia wi th depressive features 11/17/2018 12/16/2018 Compression fracture of lumbar vertebra 11/10/2018 11/07/2021 Iron deficiency anemia 05/26/201812/16 Colorectal polyps 04/22/2018 09/12/2018 Rheumatoid arthritis 12/28/2017 023 Overview: More specified Dx listed on PL Acute CT 11/19/2017 11/19/2017 Inflammatory polyarthropathy 11/19/2017 12/16/2018 Loosening [...] as of this encounter (statuses as of 12/11/2023) Immunizations Name Administration Dates Next Due COVID-19 mRNA, LNP-s, No Pre serve, 2-Dose Series (Pfizer) 10/30/2020,10/09/2020 DT - Diptheria/Tetanus (PEDS) 04/13/2002 PPD 01/19/2018 Pneumococcal Conjugate Vacc, 13 Valent (Prevnar) 03/15/2018 Pneumococcal Conjugate Vacci ne, 20-valent ([id number]) 10/26/2023 Pneumococcal Conjugate Vacci ne, 7 Valent [...] encounter Miscellaneous Notes * Telephone Encounter - Karin Mcmahan RPh - 12/11/2023 10:14 PM EDTSigned Prescriptions: Disp Refills Sertraline HCl 25 MG Oral Tablet (Zoloft) 90 Tab*1 Sig: TAKE 1 TABLET BY MOUTH ONCE DAILYAuthorizing Provider: FABIO CLARKE User: KARIN MCMAHAN CH documented in this encounter Plan of Treatment Upcoming Encounters Date Type Department Care Team (Late st Contact Info) Description 12/14/2023 12:00 PM EDT Home Visit Care at Home [address] [facility] [place] [address] Delmy Boggs PA-C [address] [facility] [place] [id number] 01/04/2024 11:00 AM EDT Anticoagulation Pharmacy, [place] [address] [facility] [place] [address] [facility] [address] [place] [address] 03/24/2024 9:30 AM EDT Office Visit Cardiology, [facility] [address] [facility] [place] [address] Corrine Quinn PA-C [address] [facility] [place] [address] 05/11/2024 10:15 AM EST Office Visit Ophthalmology, [facility] [address] [facility] [place] [address] Doyle Heredia DO [address] [facility] [place] [address] 05/18/2024 10:40 AM EST Office Visit Family Practice, [place] [address] [facility] [place] [id number] Fabio Clarke MD [address] [place] [address] 05/18/2024 1:00 PM EST Office Visit Dermatology, [place] [address] [place] [address] Sully Kearns PA-C [address] [place] [address] [place] [address] 06/12/2024 10:30 AM EST Office Visit Rheumatology [place] [id number] [place] [address] Carlitos Castro CRNP [facility] [facility] [place] [address] Health Maintenance Due Date Last Done Comments [...] D LEVEL ONCE IN A LIFETIME-USE SMARTSET# 23209 Completed 12/03/2023, 06/22/2023, 06/01/2023, Additional history exists [...] this encounter Medical Devices Implanted Type Area Parlor Maid Device Identifier Shelf Expiration Date Model / Serial / Lot Lead- 3 Implanted:Qt y: 1 on 01/26/[address] DO Lead Back 1295.04 07/28/2025 [id number] / / Description:Implanted at [facility] Neurostimula tor-01/26/2023 Implanted: by Rashaad Street DO (Quantity not on file) Neurostimulator 1295.04 10/25/2025 [id number] / [id number] / Description:Nikita Cole Impl anted at [facility] Clip Quick 2.8mm 230cm - [id number] Implanted:Qt y: 4 on 11/14/2020 by Martina Cancino MD at ENDOSCOPY [facility] [email or web address] 06/27/2023 [id number]-202UR. A / / Lens 19.5 [id number] - [id number] - [id number] Implanted:Qt y: 1 on 03/26/2021 by Doyle Heredia DO at OR [facility] Right: Eye BRII : SURGICAL 10/29/2025 [id number] / [id number] / Lens 19.5 [id number] - [id number] - [id number] Implanted:Qt y: 1 on 03/11/2022 by Doyle Heredia DO at OR [facility] Left: Eye BRII : SURGICAL 10/29/2025 [id number] / [id number] / documented as of this encounter Visit Diagnoses Diagnosis Major depression single episode, in partial remission (HCC) Major depressive disorder, single episode, in partial or unspecified remission documented in this encounter Advance Directives * Full Code (Latest Code Status on File) Date Activated Date Inactivated Comments 03/11/2022 7:56 AM 03/11/2022 2:41 PM Question Answer Comments Discussion of Advance Direct donnie occurred with: Not Discussed due to patient's condition Care Teams Ammunition Officer Relationship Specialty Start Date End Date Fabio Clarke MD [address] [place] [address] PCP - General Family Medicine 08/04/22 documented as of this encounter
--- OUTSIDE RECORDS SUMMARY | 2024-01-06 14:20 | External Medical Summary | Summary of Care ---
Author Name Unknown Organization [facility] Address [address] [place] [address] Phone [phone] Care Team Providers Care Facilities Maintenance Technician Name Role Phone Derrek Sparks MD Primary Care Provider [phone]- [phone] Reason for Referral * Evaluate & Treat - Unlimited Visits (Within 30 days (routine)) - Authorized Specialty Diagnoses / Procedures Referred By Contac t Referred To Contact Pain Management / Pain Medicine Diagnoses 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 (HCC) Status post lumbar spine operation Derrek Sparks MD [address] [place] [address] Referral ID Status Reason Start Date Expiration Date Visits Requested Visits Authorized [id number] Authorized Specialty Services Required 12/24/2023 999 999 Question Answer Referral Priority Within 30 days (routine) Where should this appointment be scheduled? [facility] Reason for referral? Non Interventional Pain Management What is the preferred location to have this test performed? Non [facility] Site Comments Patient Name: Emlira Tavares Date of : 1945 Department Phone Number: MRI or CT (if unable to have a MRI) is recommended if any of the following apply: 1. Patient has neck or back pain with radiation to extremities. A previous MRI will be accepted if symptoms unchanged since prior MRI. 2. Spinal surgery since last MRI. If yes, order a MRI with and without contrast. 3. Hx or ongoing cancer treatment. Patient will need spine x-ray (Ap/Lat) for axial neck or back pain if not done previously. Fax No. [facility] [phone] or contact front attendant [phone] Fax No. [facility] [phone] or contact front attendant [phone] [facility] [phone] or contact front attendant [phone] Reason for Visit * Reason Onset Date Comments Fax 12/23/2023 Encounter Details Date Type Department Care Team (Late st Contact Info) Description 12/23/2023 Telephone [facility] [address] [place] [address] Derrek Sparks MD [address] [place] [address] Fax Allergies Active Allergy Reactions Criticality Noted Date Comments Tello Inhibitors 05/08/2021 Hyperkalemia resulting in 2 hospitalizations Metformin Diarrhea 11/05/2022 Nadolol Itching 03/17/1999 Corgard itchy Nitroglycerin Other (Please comment) 02/09/2011 Headache that is only relieved with Morphine. Nsaids Nausea/vomiting 03/17/1999 relafen documented as of this encounter (statuses as of 12/27/2023) Medications Medication Sig Dispensed Refills Start Date [...] by mouth in the morning. 07/22/2020 Active [email or web address] Verio w/Device KitIndications:DM type 2 with diabetic peripheral neuropathy (HCC) Use to check blood sugars daily as directed E11.9 1 Kit 10/10/2020 Active [email or web address] In Vitro Strip (Glucose Blood)Indications: DM type [...] Oral Tablet (Coreg)Indications :Coronary artery disease involving [place] coronary artery of [place] heart without angina pectoris,HTN, goal below 140/90 [...] as of this encounter (statuses as of 12/27/2023) Active Problems Problem Noted Date Diagnosed Date Mild mitral regurgitation 12/14/2023 Mild tricuspid regurgitation 12/14/2023 Mild aortic stenosis 12/14/2023 Thyroid cyst 12/14/2023 Cerebral atrophy 12/14/2023 Food insecurity 11/08/2023 Overview: Per [facility] Protocol Hypertensive heart disease w ith [...] cancer 11/06/2019 Coronary artery disease invo lving [place] coronary artery of [place] heart without angina pectoris 07/04/2019 Senile osteoporosis 05/15/2019 Nontoxic uninodular goiter 11/17/2018 Gastroesophageal reflux disease without esophagi tis 11/01/2018 Rheumatoid arthritis 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 03/24/2018 Old [place] (myocardial infarction) 03/24/2018 Type 2 diabetes mellitus [...] as of this encounter (statuses as of 12/27/2023) Resolved Problems Problem Noted Date Diagnosed Date [...] negative rheumatoid factor 07/04/2019 09/27/19 22 Old [place] (myocardial infarction) 07/04/2019 09/26/2021 Major depression single epis ode, in partial remission 03/23/2019 08/26/2023 Severe obesity with body mas s index (BMI) of 36.0 to 36.9 with serious comorbidity 11/17/2018 Atherosclerosis of [place] co ronary artery of [place] heart without angina pectoris 11/17/201806/2021 Arteriosclerotic dementia wi th depressive features 11/17/2018 12/16/2018 Compression fracture of lumbar vertebra 11/10/2018 11/07/2021 Iron deficiency anemia 05/26/201812/16 Colorectal polyps 04/22/2018 09/12/2018 HTN, goal below 140/90 03/24/201812/13 Rheumatoid arthritis 12/28/2017 023 Overview: More specified Dx listed on PL Acute [place] 11/19/2017 11/19/2017 Inflammatory polyarthropathy 11/19/2017 12/16/2018 Loosening [...] as of this encounter (statuses as of 12/27/2023) Immunizations Name Administration Dates Next Due COVID-19 mRNA, LNP-s, No Pre serve, 2-Dose Series (Pfizer) 10/30/2020,10/09/2020 DT - Diptheria/Tetanus (PEDS) 04/13/2002 PPD 01/19/2018 Pneumococcal Conjugate Vacc, 13 Valent (Prevnar) 03/15/2018 Pneumococcal Conjugate Vacci ne, 20-valent ([id number]) 10/26/2023 Pneumococcal Conjugate Vacci ne, 7 Valent [...] encounter Miscellaneous Notes * Telephone Encounter - Sully Terry OSA - 12/27/2023 9:35 AM EDT Spoke to patient and she states it is the [facility]. Referral faxed. 12/27/2023 * Telephone Encounter - Derrek Sparks MD - 12/24/2023 5:14 PM EDT That does not really clear it up - I entered a referral for medication pain management that can be sent to [facility]. If that is not correct, please send back * Telephone Encounter - Maddy Bhagat LPN - 12/24/2023 10:28 AM EDT Pt wants referral for pain management in [place]. Pt states there is pain management there ?? Thanks * Telephone Encounter - Derrek Sparks MD - 12/23/2023 6:24 PM EDT Does she mean the [facility]? This is medication management of pain. Or is she looking for interventional pain management eval? I am not aware of one of those in [facility]. * Telephone Encounter - Vlad Aviles OSA - 12/23/2023 3:10 PM EDT Pt is calling in because she is looking for a referral to be sent in to the pain clinic in [facility]. She is having trouble standing documented in this encounter Plan of Treatment Upcoming Encounters Date Type Department Care Team (Late st Contact Info) Description 01/04/2024 11:00 AM EDT Anticoagulation Pharmacy, [place] [address] [facility] [place] [address] [place], [facility] [address] [facility] [place] [address] 03/24/2024 9:30 AM EDT Office Visit Cardiology, [facility] [address] [facility] [place] [address] Corrine Quinn PA-C [address] [facility] [place] [address] 05/11/2024 10:15 AM EST Office Visit Ophthalmology, [facility] [address] [facility] [place] [address] Doyle Heredia, DO [address] [facility] [place] [address] 05/18/2024 10:40 AM EST Office Visit Family [place] [address] [place] [address] Derrek Sparks MD [address] [place] [address] 05/18/2024 1:00 PM EST Office Visit Dermatology, [address] [address] Sully Kearns PA-C [address] [place] [address] [place] [address] 06/12/2024 10:30 AM EST Office Visit Rheumatology [address] [place] [address] Carlitos Castro CRNP [address] [place] [address] [place] [address] 12/14/2024 9:00 AM EDT Home Visit Care at Home [address] [place], [place] [id number] Delmy Boggs PA-C [address] [place], [place] [phone] Scheduled Referrals Name Type Priority Associated Diagnoses Orde r Schedule PAIN MEDICINE REFERRAL OP Referral Within 30 days (routine) 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 (HCC) Status post lumbar spine operation Ordered: 12/24/2023 Health Maintenance Due Date Last Done Comments [...] Additional history exists DXA Scan 05/03/2024 05/03/2023, 110 11/2022, 04/29/2021, Additional history exists Albumin/Creatinine Ratio [...] D LEVEL ONCE IN A LIFETIME-USE SMARTSET# [id number] Completed 12/03/2023, 06/22/2023, 06/01/2023, Additional history exists [...] this encounter Medical Devices Implanted Type Area Wire Frame Lamp Shade Maker Device Identifier Shelf Expiration Date Model / Serial / Lot Lead- Implanted:Qt y: 1 on 01/26/[address] DO Lead Back 1295.04 07/28/2025 [id number] / / Description:Implanted at [facility] Neurostimula tor-01/26/2023 Implanted: by Rashaad Street DO (Quantity not on file) Neurostimulator 1295.04 10/25/2025 [id number] / [id number] / Description:Nikita page at [facility] Clip Quick 2.8mm 230cm - [id number] Implanted:Qt y: 4 on 11/14/2020 by Martina Cancino MD at ENDOSCOPY [facility] [employer] 06/27/2023 HX-202UR. A / / Lens 19.5 [id number] - [id number] - [id number] Implanted:Qt y: 1 on 03/26/2021 by Doyle Heredia DO at OR [facility] Right: Eye BRII : SURGICAL 10/29/2025 [id number] / [id number] / Lens 19.5 [id number] - [id number] - [id number] Implanted:Qt y: 1 on 03/11/2022 by Doyle Heredia DO at OR [facility] Left: Eye BRII : SURGICAL 10/29/2025 [id number] / [id number] / documented as of this encounter Visit Diagnoses Diagnosis 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 (HCC)- Primary Status post lumbar spine operation Other postprocedural status documented in this encounter Advance Directives * Full Code (Latest Code Status on File) Date Activated Date Inactivated Comments 03/11/2022 7:56 AM 03/11/2022 2:41 PM Question Answer Comments Discussion of Advance Direct donnie occurred with: Not Discussed due to patient's condition Care Teams Facilities Maintenance Technician Relationship Specialty Start Date End Date Derrek Sparks MD [address] [facility] [place] [address] PCP - General Family Medicine 08/04/22 documented as of this encounter
--- OUTSIDE RECORDS SUMMARY | 2024-01-06 14:20 | External Medical Summary | Summary of Care ---
Author Name Unknown Organization [facility] Address [address] [place] [address] Phone [phone] Care Team Providers Care Tester [employer] Name Role Phone Derrek Sparks MD Primary Care Provider [phone]- [phone] Reason for Visit * Reason Onset Date Comments Rheum Follow Up Follow up - OLLA C/ RA Medication Administration prolia Medication Administration 12/08/2023 Prolia * Precert (Within 30 days (routine)) - Authorized Specialty Diagnoses / Procedures Referred By Contac t Referred To Contact Rheumatology Diagnoses Age-related osteoporosis without current pathological fracture Procedures [place]OSUMAB 1MG, [place] [address] [place] [address] Referral ID Status Reason Start Date Expiration Date V isits Requested Visits Authorized [id number] Authorized Precert 02/24/2022 06/27/2099 [id number] Encounter Details Date Type Department Care Team (Latest Contact Info) Description 12/08/2023 10:40 AM EDT Office Visit Rheumatology [place] [id number] [place] [address] Arnav Damon MD [address] [place] [address] 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 07/22/2020 Active Rainbow[employer] w/Device KitIndications:DM type 2 with diabetic peripheral neuropathy (HCC) Use to check blood sugars daily as directed E11.9 1 Kit 10/10/2020 Active [employer] In Vitro Strip (Glucose Blood)Indications: DM type [...] Oral Tablet (Coreg)Indications :Coronary artery disease involving [place] coronary artery of [place] heart without angina pectoris,HTN, goal below 140/90 [...] the morning. 30 Tablet 5 12/08/2023 Active Hospital, Clinic, or Other Facility Administered Medication Ordered Dose Route Frequency Start Date End Date Status Denosumab (Prolia) subcut inj 60 mgIndications:Senile osteoporosis 60 mg SC ONCE 12/08/2023 12/08/2023 Ended documented as of this encounter (statuses as [...] cancer 11/06/2019 Coronary artery disease invo lving [place] coronary artery of [place] heart without angina pectoris 07/04/2019 Senile osteoporosis 05/15/2019 Nontoxic uninodular goiter 11/17/2018 Gastroesophageal reflux disease without esophagi tis 11/01/2018 Rheumatoid arthritis 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 03/24/2018 HTN, goal below 140/90 03/24/2018 Old WI (myocardial infarction) 03/24/2018 Type 2 diabetes mellitus [...] negative rheumatoid factor 07/04/2019 09/27/19 22 Old WI (myocardial infarction) 07/04/2019 09/26/2021 Major depression single epis ode, in partial remission 03/23/2019 08/26/2023 Severe obesity with body mas s index (BMI) of 36.0 to 36.9 with serious comorbidity 11/17/2018 Atherosclerosis of [place] co ronary artery of [place] heart without angina pectoris 11/17/201806/2021 Arteriosclerotic dementia wi th depressive features 11/17/2018 12/16/2018 Compression fracture of lumbar vertebra 11/10/2018 11/07/2021 Iron deficiency anemia 05/26/201812/16 Colorectal polyps 04/22/2018 09/12/2018 Rheumatoid arthritis 12/28/2017 023 Overview: More specified Dx listed on PL Acute WI 11/19/2017 11/19/2017 Inflammatory polyarthropathy 11/19/2017 12/16/2018 Loosening [...] (Prevnar) 03/15/2018 Pneumococcal Conjugate Vacci ne, 20-valent ([id number]) 10/26/2023 Pneumococcal Conjugate Vacci ne, 7 Valent [...] 0 [birth year]/12/1964 - 02/12/1993 Smokeless Tobacco: Never Tobacco Cessation:Counseling Given: Not Answered Alcohol Use Standard Drinks/Week Comments No 0 [...] Sign Reading Time Taken Comments Blood Pressure - - Pulse - - Temperature 36.4 C (97.5 F) 12/08/2023 10:37 AM E DT Respiratory Rate - - Oxygen Saturation - - Inhaled Oxygen Concentration - - Weight 84.8 kg (187 lb) 12/08/2023 10:37 AM EDT Height - - Body Mass Index 26.83 10/26/2023 6:08 PM EDT documented in this encounter Progress Notes * Humera Heck LPN - 12/08/2023 11:06 AM EDT Elmira Tavares presents today for administration of Prolia. Amber understands the benefits and risks of this treatment. An educational pamphlet was given to the patient. Prolia 60 mg was administered subcutaneously. The patient tolerated the procedure without problems. Amber will return in 6 months for the next injection and evaluation. Humera Heck LPN * Arnav Damon MD - 12/08/2023 10:37 AM EDT Subjective: Patient seen today for further follow up evaluation of rheumatoid arthritis, osteoporosis. Since the last visit I had seen her last in 2019 and she was on MTX, plaquenil for RA. Looks like she has been off these meds since 2019. Her biggest issue is her back and feet. She has a spinal stimulator and that does not always help. She states if she turns up her stimulator she gets more foot swelling. She also has has right hand pains. Can get swelling at the 3 MCP. Unclear why she was not restarted on her medications over these last 4 years. She is due for prolia today. She is here for her 4th dose. No falls or fractures. No exercises. Taking vit D last one was 24 but not taking her supplement with a fatty meal. Uses a cane. Musculoskeletal ROS: . Abnormal: joint pain, joint swelling, and back pain . Pain scale (0-10): 7 Other ROS: . Constitutional: normal . Head normal . Eyes: normal . Ears, nose, throat, mouth: normal . Cardiovascular: normal . Respiratory: normal . Gastrointestinal: normal . Genitourinary: normal . Skin: normal Social History: Social History Tobacco Use Smoking status: Former Current packs/day: 0.00 Average packs/day: 1 pack/day for 30.0 years (30.0 ttl pk-yrs) Types: Cigarettes Start date: 02/12/1963 Quit date: 02/12/1993 Years since quittin.8 Smokeless tobacco: Never Substance Use Topics Alcohol use: No Vaping/E-Cigarette Use Vaping/E-Cigarette Use Never User Vaping/E-Cigarette Substances Nicotine No Other No Flavoring No THC No Cannabidiol (CBD) No Vaping/E-Cigarette Devices Disposable No Pre-filled or Refillable Cartridge No Refillable Tank No Pre-filled Pod No Current Outpatient Medications Medication Sig Dispense Refill ONETOUCH ULTRASOFT LANCETS MISC Use to check blood sugars daily as [...] 1 Tablet by mouth in the morning. Rank By Search Verio w/Device Kit Use to check blood sugars daily as directed E11.9 1 Kit 0 American CareSource HoldingsTouch Verio In Vitro Strip (Glucose Blood) Use to check blood sugars twice daily as directed Dx E11.9 200 Strip 3 Cholecalciferol 50 MCG (2000 UT) Oral Capsule DAILY Sertraline HCl 25 MG Oral Tablet (Zoloft) Take 1 tablet by mouth daily. 90 Tablet 3 Atorvastatin Calcium 80 MG Oral Tablet (Lipitor) [...] DIRECTED BY [facility] 135 Tablet 1 Current Facility-Administered Medications Medication Dose Route Frequency Provider Last Rate Last Admin Denosumab (Prolia) subcut inj 60 mg 60 mg Subcutaneous Once Physical Exam: Temp 36.4 C (97.5 F) (Infrared ) | Wt 84.8 kg (187 lb) | BMI 26.83 kg/m | BSA 2.05 m General: alert, no distress, and well nourished Neck: supple, no adenopathy, thyroid normal size, non-tender, without nodularity Lymph: no palpable lymphadenopathy Heart: regular rate & rhythm and no gallops Lungs: clear to auscultation , no rales, wheezes or rhonchi Abdomen: abdomen soft, non-tender, and normal bowel sounds Extremities: no clubbing, no cyanosis Musculoskeletal Exam: Weakness of both hip flexors noted, deltoid strength 4/5 Assessment: M06.041,M06.042 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 She likely has some activity of her feet given exam so will resume methotrexate at 6 tabs weekly and folic acid. Will update labs in 3 months. As for osteoporosis, will get Prolia today. Plan: 1. Prolia given today 2. Restart methotrexate and folic acid 3. Labs in 3 months 4. Return to clinic in 6 months for RA and Prolia Arnav Damon MD Department of Rheumatology documented in this encounter Nursing Notes * Humera Heck LPN - 12/08/2023 10:37 AM EDT Chief Complaint Patient presents with Rheum Follow Up Follow up - HIROC/ RA Medication Administration prolia documented in this encounter Plan of Treatment Upcoming Encounters Date Type Department Care Team (Late st Contact Info) Description 01/04/2024 11:00 AM EDT [facility], [place] [address] [facility] [address] [facility] [address] [facility] [address] 03/24/2024 9:30 AM EDT Office Visit Cardiology, [facility] [address] [facility] [place] [address] Corrine Quinn, ANIA [address] [facility] [place] [address] 05/11/2024 10:15 AM EST Office Visit Ophthalmology, [facility] [address] [facility] [place] [address] Doyle Heredia, DO [facility] [place] [address] 05/18/2024 10:40 AM EST Office Visit [facility] [address] [facility] [phone] Derrek Sparks MD [address] [facility] [address] 05/18/2024 1:00 PM EST Office Visit Dermatology, [place] [address] [facility] [place], [place] [address] Sully Kearns PA-C [address] [place] [address] [place] [address] 06/12/2024 10:30 AM EST Office Visit Rheumatology [place] [id number] [place] [address] Carlitos Castro CRNP [address] [facility] [place] [address] Scheduled Orders Name Type Priority Associated Diagnoses Orde r Schedule HEPATIC FUNCTION PANEL Lab Routine 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 (HCC) Expected: 02/27/2024 (Approximate), Expires: 06/28/2024 CBC WITH WBC DIFFERENTIAL Lab Routine 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 (HCC) Expected: 02/27/2024 (Approximate), Expires: 06/28/2024 Health Maintenance Due Date Last Done Comments [...] 11/2022, 04/29/2021, Additional history exists Albumin/Creatinine Ratio 06/01/202406/01/2 023, 05/07/2022, 12/06/2020, Additional history exists TSH [...] D LEVEL ONCE IN A LIFETIME-USE SMARTSET# 65727 Completed 12/03/2023, 06/22/2023, 06/01/2023, Additional history exists [...] this encounter Medical Devices Implanted Type Area Director Of Financial Planning Device Identifier Shelf Expiration Date Model / Serial / Lot Lead- 3 Implanted:Qt y: 1 on 01/26/[address] DO Lead Back 1295.04 07/28/2025 [id number] / / Description:Implanted at [facility] Neurostimula tor-01/26/2023 Implanted: by Rashaad Street DO (Quantity not on file) Neurostimulator 1295.04 10/25/2025 [id number] / [id number] / Description:Nikita Cole Impl anted at [facility] Clip Quick 2.8mm 230cm - [id number] Implanted:Qt y: 4 on 11/14/2020 by Martina Cancino MD at [facility]COPY [facility] [employer] 06/27/2023 HX-202UR. 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)- Primary Senile osteoporosis Long-term use of high-risk medication Lumbar radiculopathy Thoracic or lumbosacral neuritis or radiculitis, unspecified documented in this encounter Administered Medications Inactive Administered Medications - up to 3 most recent administrations Medication Order MAR Action Action Date Dose Rate Site Denosumab (Prolia) subcut inj 60 mg 60 mg, Subcutaneous, ONCE, On Wed12/08/23 at 1030, For 1 dose Given 12/08/2023 11:07 AM EDT 60 mg Arm Left Upper documented in this encounter Advance Directives * Full Code (Latest Code Status on File) Date Activated Date Inactivated Comments 03/11/2022 7:56 AM 03/11/2022 2:41 PM Question Answer Comments Discussion of Advance Direct donnie occurred with: Not Discussed due to patient's condition Care Teams Tester [employer] Relationship Specialty Start Date End Date Derrek Sparks MD [address] [place] [address] PCP - General Family Medicine 08/04/22 documented as of this encounter"
--- OUTSIDE RECORDS SUMMARY | 2024-01-06 14:21 | External Medical Summary | Summary of Care ---
Author Name Unknown Organization [facility] Address [address] [place] [address] Phone [phone] Care Team Providers Care Salesperson [employer]el[employer] Name Role Phone Derrek Sparks MD Primary Care Provider +1- [phone] Reason for Visit * Reason Onset Date Comments Order Request 12/01/2023 Vit D / prolia Encounter Details Date Type Department Care Team (Late st Contact Info) Description 12/01/[address] [place] [address] Arnav Damon MD [address] [place] [address] [place] [address] Order Request (Vit D / [...] by mouth in the morning. 07/22/2020 Active [employer] Verio w/Device KitIndications:DM type 2 with diabetic peripheral neuropathy (HCC) Use to check blood sugars daily as directed E11.9 1 Kit 10/10/2020 Active [employer] In Vitro Strip (Glucose Blood)Indications: DM type [...] Oral Tablet (Coreg)Indications :Coronary artery disease involving [place] coronary artery of [place] heart without angina pectoris,HTN, goal below 140/90 [...] Diagnosed Date Food insecurity 11/08/2023 Overview: Per [facility] Protocol Hypertensive heart disease w [...] cancer 11/06/2019 Coronary artery disease invo lving [place] coronary artery of [place] heart without angina pectoris 07/04/2019 Senile osteoporosis 05/15/2019 Nontoxic uninodular goiter 11/17/2018 Gastroesophageal reflux disease without esophagi tis 11/01/2018 Rheumatoid arthritis 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 03/24/2018 HTN, goal below 140/90 03/24/2018 Old [place] (myocardial infarction) 03/24/2018 Type 2 diabetes mellitus [...] negative rheumatoid factor 07/04/2019 09/27/19 22 Old MS (myocardial infarction) 07/04/2019 09/26/2021 Major depression single epis ode, in partial remission 03/23/2019 08/26/2023 Severe obesity with body mas s index (BMI) of 36.0 to 36.9 with serious comorbidity 11/17/2018 Atherosclerosis of [place] co ronary artery of [place] heart without angina pectoris 11/17/201806/2021 Arteriosclerotic dementia wi th depressive features 11/17/2018 12/16/2018 Compression fracture of lumbar vertebra 11/10/2018 11/07/2021 Iron deficiency anemia 05/26/201812/16 Colorectal polyps 04/22/2018 09/12/2018 Rheumatoid arthritis 12/28/2017 023 Overview: More specified Dx listed on PL Acute MS 11/19/2017 11/19/2017 Inflammatory polyarthropathy 11/19/2017 12/16/2018 Loosening [...] (Prevnar) 03/15/2018 Pneumococcal Conjugate Vacci ne, 20-valent ([id number]) 10/26/2023 Pneumococcal Conjugate Vacci ne, 7 Valent [...] encounter Miscellaneous Notes * Telephone Encounter - Humera Heck LPN - 12/06/2023 7:52 AM EDT Vit D was 24 on 12/03/23. * Telephone Encounter - Ad Pittman OSA - 12/02/2023 8:36 AM EDT Research Executive - Patient Related Communication Reason for Call: Patient is aware to have labs done. Will have done 12-03-23. Thank you ISATU Person * Telephone Encounter - Arnav Damon MD - 12/01/2023 4:43 PM EDT signed [...] 12/08/2023 10:40 AM EDT Office Visit Rheumatology [address] [place] [address] Arnav Damon MD [address] [place] [address] [place] [address] 01/04/2024 11:00 AM EDT Anticoagulation Pharmacy, [place] [address] [place] [address] [facility] [address] [place] [address] 03/24/2024 9:30 AM EDT Office Visit Cardiology[facility] [address] [facility] [place] [address] Corrine Quinn, ANIA [address] [facility] [place] [address] 05/11/2024 10:15 AM EST Office Visit Ophthalmology, [facility] [address] [facility] [place] [address] Doyle Heredia, DO [address] [facility] [place] [address] 05/18/2024 10:40 AM EST Office Visit Family [facility], [place] [address] [place] [phone] Derrek Sparks MD [address] [place] [facility] [place] [place] [address] 05/18/2024 1:00 PM EST Office Visit Dermatology, [place] [address] [place] [address] Sully Kearns, ANIA [address] [place] [address] [place] [address] Health Maintenance Due Date Last Done Comments Zoster Vaccines (2 of 3) 03/11/2016 01/15/2016 COVID-19 Vaccine (3 - 2022- season) 2023 10/30/2020, 10/09/2020 Diabetic Foot Exam [...] D LEVEL ONCE IN A LIFETIME-USE SMARTSET# 23470 Completed 12/03/2023, 06/22/2023, 06/01/2023, Additional history exists [...] this encounter Medical Devices Implanted Type Area Rubber Down Device Identifier Shelf Expiration Date Model / Serial / Lot Lead- Implanted:Qt y: 1 on 01/26/[address] DO Lead Back 1295.04 07/28/2025 [id number] / / Description:Implanted at [facility] Neurostimula tor-01/26/2023 Implanted: by Rashaad Street DO (Quantity not on file) Neurostimulator 1295.04 10/25/2025 [id number] / [id number] / Description:Nikita Cole Impl anted at [facility] Clip Quick 2.8mm 230cm - [id number] Implanted:Qt y: 4 on 11/14/2020 by Martina Cancino MD at [facility] [employer] 06/27/2023 HX-202UR. A / / Lens 19.5 [id number] - [id number] - [id number] Implanted:Qt y: 1 on 03/26/2021 by Doyle Heredia DO at OR [facility] Right: Eye BRII : SURGICAL 10/29/2025 [id number] / [id number] / Lens 19.5 [id number] - [id number] - [id number] Implanted:Qt y: 1 on 03/11/2022 by Doyle Heredia, DO at OR [facility] Left: Eye BRII : SURGICAL 10/29/2025 [id number] / [id number] / documented as of this encounter Results * 25-HYDROXY VITAMIN D (12/03/2023 11:04 AM EDT) 25-Hydroxy Vitamin D 24 >19 ng/mL 12/04/2023 12:53 AM EDT [facility] Blood Venous blood specimen / Unknown Venipuncture / Unknown 12/03/2023 11:04 AM EDT 12/03/2023 11:04 AM EDT Narrative [facility] - 12/04/2023 12:53 AM EDT Deficient: <20 ng/mL Insufficient: 20-29 ng/mL Recommended/Optimum:30-50 ng/mL Vitamin D intoxication is rare. If suspicious of Vitamin D toxicity, evaluation of serum Calcium and PTH is recommended. Arnav Damon MD LAB BLOOD ORDERABLE S [facility] [address] [place] [address] documented in this encounter Visit Diagnoses Diagnosis Senile osteoporosis- Primary documented in this encounter Advance Directives * Full Code (Latest Code Status on File) Date Activated Date Inactivated Comments 03/11/2022 7:56 AM 03/11/2022 2:41 PM Question Answer Comments Discussion of Advance Direct donnie occurred with: Not Discussed due to patient's condition Care Teams Salesperson Jewelry Relationship Specialty Start Date End Date Derrek Sparks MD [address] [place] [address] PCP - General Family Medicine 08/04/22 documented as of this encounter
--- OUTSIDE RECORDS SUMMARY | 2024-01-06 14:21 | External Medical Summary | Summary of Care ---
Author Name Unknown Organization [facility] Address [address] [place] [address] Phone [phone] Care Team Providers Care Forestry Technical Officer Name Role Phone Derrek Sparks MD Primary Care Provider [phone]- [phone] Reason for Visit * Reason Comments Outpatient Testing Encounter Details Date Type Department Care Team (Late st Contact Info) Description 12/03/2023 11:00 AM EDT Laboratory Laboratory, [place] [address] [place] [address] [place], [facility] [address], [place] [id number] Longstanding persistent atrial fibrillation (HCC); Anticoagulation management encounter; senior living current use of anticoagulant therapy; Senile osteoporosis Allergies Active Allergy Reactions Criticality Noted Date Comments Tello Inhibitors 05/08/2021 Hyperkalemia resulting in 2 hospitalizations Metformin Diarrhea 11/05/2022 Nadolol Itching 03/17/1999 Corgard itchy Nitroglycerin Other (Please comment) 02/09/2011 Headache that is only relieved with Morphine. Nsaids Nausea/vomiting 03/17/1999 relafen documented as of this encounter (statuses as of 12/03/2023) Medications Medication Sig Dispensed Refills Start Date [...] by mouth in the morning. 07/22/2020 Active [employer] Verio w/Device KitIndications:DM type 2 with diabetic peripheral neuropathy (HCC) Use to check blood sugars daily as directed E11.9 1 Kit 10/10/2020 Active [employer] Verio In Vitro Strip (Glucose Blood)Indications: DM [...] Oral Tablet (Coreg)Indications :Coronary artery disease involving [place] coronary artery of [place] heart without angina pectoris,HTN, goal below 140/90 [...] as of this encounter (statuses as of 12/03/2023) Active Problems Problem Noted Date Diagnosed Date Food insecurity 11/08/2023 Overview: Per [facility] Protocol Hypertensive heart disease w [...] cancer 11/06/2019 Coronary artery disease invo lving [place] coronary artery of [place] heart without angina pectoris 07/04/2019 Senile osteoporosis 05/15/2019 Nontoxic uninodular goiter 11/17/2018 Gastroesophageal reflux disease without esophagi tis 11/01/2018 Rheumatoid arthritis 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 03/24/2018 HTN, goal below 140/90 03/24/2018 Old ID (myocardial infarction) 03/24/2018 Type 2 diabetes mellitus [...] as of this encounter (statuses as of 12/03/2023) Resolved Problems Problem Noted Date Diagnosed Date [...] negative rheumatoid factor 07/04/2019 09/27/19 22 Old ID (myocardial infarction) 07/04/2019 09/26/2021 Major depression single epis ode, in partial remission 03/23/2019 08/26/2023 Severe obesity with body mas s index (BMI) of 36.0 to 36.9 with serious comorbidity 11/17/2018 Atherosclerosis of [place] co ronary artery of [place] heart without angina pectoris 11/17/201806/2021 Arteriosclerotic dementia wi th depressive features 11/17/2018 12/16/2018 Compression fracture of lumbar vertebra 11/10/2018 11/07/2021 Iron deficiency anemia 05/26/201812/16 Colorectal polyps 04/22/2018 09/12/2018 Rheumatoid arthritis 12/28/2017 023 Overview: More specified Dx listed on PL Acute ID 11/19/2017 11/19/2017 Inflammatory polyarthropathy 11/19/2017 12/16/2018 Loosening [...] as of this encounter (statuses as of 12/03/2023) Immunizations Name Administration Dates Next Due COVID-19 mRNA, LNP-s, No Pre serve, 2-Dose Series (Pfizer) 10/30/2020,10/09/2020 DT - Diptheria/Tetanus (PEDS) 04/13/2002 PPD 01/19/2018 Pneumococcal Conjugate Vacc, 13 Valent (Prevnar) 03/15/2018 Pneumococcal Conjugate Vacci ne, 20-valent ([id number]) 10/26/2023 Pneumococcal Conjugate Vacci ne, 7 Valent [...] on file documented as of this encounter Plan of Treatment Upcoming Encounters Date Type Department Care Team (Late st Contact Info) Description 12/08/2023 10:40 AM EDT Office Visit Rheumatology [address] [place] [address] Arnav Damon MD [address] [place] [address] [place] [address] 01/04/2024 11:00 AM EDT Anticoagulation Pharmacy, [place] [address] [place] [address] [facility] [address] [place] [address] 03/24/2024 9:30 AM EDT Office Visit Cardiology, [facility] [address] [facility] [place] [address] Corrine Quinn PA-C [address] [facility] [place] [address] 05/11/2024 10:15 AM EST Office Visit Ophthalmology, [facility] [address] [facility] [place] [address] Doyle Heredia, DO [address] [facility] [place] [address] 05/18/2024 10:40 AM EST Office Visit Family [facility] [address] [facility] [place] [address] Derrek Sparks MD [address] [place] [facility] [place] [address] 05/18/2024 1:00 PM EST Office Visit Dermatology, [place] [address] [facility] [place] [address] Sully Kearns, ANIA [address] [place] [address] [place] [address] Pending Results Name Type Priority Associated Diagnoses Date /Time PT INR Lab Routine Longstanding persistent atrial fibrillation (HCC) 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 12/03/2023 11:04 AM EDT 25-HYDROXY VITAMIN D Lab Routine Senile osteoporosis 12/03/2023 11:04 AM EDT Health Maintenance Due Date Last Done Comments Zoster Vaccines (2 of 3) 03/11/2016 01/15/2016 COVID-19 Vaccine ( season) 2023 10/30/2020, 10/09/2020 Diabetic Foot Exam 07/07/2023 07/07/2022, 0 10/22/2020, 07/04/2019, Additional history exists *BISPHONATE OR OTHER ACCEPTABLE MEDICATION NEEDED FOR OSTEOPOROSIS (REFER TO SMARTSET #1146) 12/02/2023 Diabetic Eye Exam 04/29/2024 04/29/2023, , 04/29/2023, [...] Completed 04/13/2023, 03/13/2021, 03/13/2021, Additional history exists VITAMIN D LEVEL ONCE IN A LIFETIME-USE SMARTSET# 23649 Completed 06/22/2023, 06/01/2023, 01/07/2023, Additional history exists Pneumococcal Vaccine: 65+ Years Completed 10/26/2023, 03/15/2018, 01/12/2002, Additional history exists GARDASIL-HPV IMMUNIZATION SERIES Aged Out No longer eligible based on patient's age to complete this topic Hepatitis B Aged Out No longer eligi ble based on patient's age to complete this topic MENINGOCOCCAL (MENACTRA/MENVEO) Aged Out No longer eligible based on patient's age to complete this topic documented as of this encounter Medical Devices Implanted Type Area Cnc Service Technician Device Identifier Shelf Expiration Date Model / Serial / Lot Lead- 3 Implanted:Qt y: 1 on 01/26/[address] DO Lead Back 1295.04 07/28/2025 [id number] / / Description:Implanted at [facility] Neurostimula tor-01/26/2023 Implanted: by Rashaad Street DO (Quantity not on file) Neurostimulator 1295.04 10/25/2025 [id number] / [id number] / Description:Nikita Cole Impl anted at [facility] Clip Quick 2.8mm 230cm - [id number] Implanted:Qt y: 4 on 11/14/2020 by Martina Cancino MD at [facility] [employer] 06/27/2023 [id number]-202UR. 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
--- OUTSIDE RECORDS SUMMARY | 2024-01-06 14:21 | External Medical Summary | Summary of Care ---
Author Name Unknown Organization [facility] Address [address] [place] [address] Phone [phone] Care Team Providers Care Medical Technologist Clinical Name Role Phone Derrek Sparks MD Primary Care Provider +1- [phone] Reason for Visit * Reason Comments Dosage Adjustment In Person (Anticoag Cl inic) Encounter Details Date Type Department Care Team (Latest Contact Info) Description 12/03/2023 10:50 AM EDT Anticoagulation Pharmacy, [place] [address] [place] [address] [facility] [address] [place] [address] Anticoagulation management encounter*; Longstanding persistent atrial fibrillation (HCC); 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 Nsaids Nausea/vomiting 03/17/1999 relafen documented as of this encounter (statuses as of 12/03/2023) Medications Medication Sig Dispensed Refills Start Date End Date Status [facility] MISCIndications:DM type 2 with diabetic peripheral neuropathy [...] by mouth in the morning. 07/22/2020 Active [employer] Verio w/Device KitIndications:DM type 2 with diabetic peripheral neuropathy (HCC) Use to check blood sugars daily as directed E11.9 1 Kit 10/10/2020 Active [employer] In Vitro Strip (Glucose Blood)Indications: DM type [...] Oral Tablet (Coreg)Indications :Coronary artery disease involving [place] coronary artery of [place] heart without angina pectoris,HTN, goal below 140/90 [...] Diagnosed Date Food insecurity 11/08/2023 Overview: Per [facility] Protocol Hypertensive heart disease w [...] cancer 11/06/2019 Coronary artery disease invo lving [place] coronary artery of [place] heart without angina pectoris 07/04/2019 Senile osteoporosis 05/15/2019 Nontoxic uninodular goiter 11/17/2018 Gastroesophageal reflux disease without esophagi tis 11/01/2018 Rheumatoid arthritis 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 03/24/2018 HTN, goal below 140/90 03/24/2018 Old IN (myocardial infarction) 03/24/2018 Type 2 diabetes mellitus [...] negative rheumatoid factor 07/04/2019 09/27/19 22 Old IN (myocardial infarction) 07/04/2019 09/26/2021 Major depression single epis ode, in partial remission 03/23/2019 08/26/2023 Severe obesity with body mas s index (BMI) of 36.0 to 36.9 with serious comorbidity 11/17/2018 Atherosclerosis of [place] co ronary artery of [place] heart without angina pectoris 11/17/201806/2021 Arteriosclerotic dementia wi th depressive features 11/17/2018 12/16/2018 Compression fracture of lumbar vertebra 11/10/2018 11/07/2021 Iron deficiency anemia 05/26/201812/16 Colorectal polyps 04/22/2018 09/12/2018 Rheumatoid arthritis 12/28/2017 023 Overview: More specified Dx listed on PL Acute IN 11/19/2017 11/19/2017 Inflammatory polyarthropathy 11/19/2017 12/16/2018 Loosening [...] (Prevnar) 03/15/2018 Pneumococcal Conjugate Vacci ne, 20-valent ([id number]) 10/26/2023 Pneumococcal Conjugate Vacci ne, 7 Valent [...] Progress Notes * Alanna Osborn RPh - 12/03/2023 10:52 AM EDT Images from the original note were not included. Medication Therapy Disease Management - Anticoagulation Patient: Elmira Tavares | : 1945 Subjective Patient-Reported Symptoms: Patient Findings Negatives: Signs/symptoms of thrombosis, Signs/symptoms of bleeding, Change in health, Change in alcohol use, Change in activity, Upcoming invasive procedure, Missed doses, Extra doses, Change in medications, Change in diet/appetite, Bruising Objective Current Warfarin Dose As of 12/03/2023 Warfarin maintenance plan: 6 mg (4 mg x 1.5) every Mon, Fri; 4 mg (4 mg x 1) all other days INR Result As of 12/03/2023 INR goal: 1.8-2.2 INR used for dosin.5 (12/03/2023) Assessment & Plan Warfarin Plan As of 12/03/2023 Full warfarin instructions: 12/02: 8 mg; Otherwise 6 mg every Mon, Fri; 4 mg all other days Next INR check: 01/04/2024 Repeat PT/INR in 4 week(s) Weekly dose: not changed Additional Dosing Information: Alanna Osborn RPh Clinical Pharmacist 12/03/2023, 10:52 AM documented in this encounter Plan of Treatment Upcoming Encounters Date Type Department Care Team (Late st Contact Info) Description 12/08/2023 10:40 AM EDT Office Visit Rheumatology [address] [place] [address] Arnav Damon MD [address] [place] [address] [place] [address] 01/04/2024 11:00 AM EDT Anticoagulation Pharmacy, [place] [address] [place] [address] [facility] [address] [place] [address] 03/24/2024 9:30 AM EDT Office Visit Cardiology, [facility] [address] [facility] [place] [address] Corrine Quinn, PA-C [address] [place] [address] 05/11/2024 10:15 AM EST Office Visit Ophthalmology, [facility] [address] [facility] [place] [address] Doyle Heredia DO [facility] [place] [address] 05/18/2024 10:40 AM EST Office Visit Family [facility] [address] [place] [phone] Derrek Sparks MD [address] [place] [address] 05/18/2024 1:00 PM EST Office Visit Dermatology, [place] [address] [place] [address] Sully Kearns, ANIA [address] [place] [address] [place] [address] Health Maintenance Due Date Last Done Comments Zoster Vaccines (2 of 3) 03/11/2016 01/15/2016 COVID-19 Vaccine (3 - 2022-24 season) 2023 10/30/2020, 10/09/2020 Diabetic Foot Exam [...] D LEVEL ONCE IN A LIFETIME-USE SMARTSET# 37740 Completed 06/22/2023, 06/01/2023, 01/07/2023, Additional history exists [...] this encounter Medical Devices Implanted Type Area Almond Paste Mixer Device Identifier Shelf Expiration Date Model / Serial / Lot Lead- Implanted:Qt y: 1 on 01/26/[address] DO Lead Back 1295.04 07/28/2025 [id number] / / Description:Implanted at [facility] Neurostimula tor-01/26/2023 Implanted: by Rashaad Street DO (Quantity not on file) Neurostimulator 1295.04 10/25/2025 [id number] / [id number] / Description:Nikita Cole Impl anted at [facility] Clip Quick 2.8mm 230cm - [id number] Implanted:Qt y: 4 on 11/14/2020 by Martina Cancino MD at [facility] [employer] 06/27/2023 HX-202UR. A / / Lens 19.5 [id number] - [id number] - [id number] Implanted:Qt y: 1 on 03/26/2021 by Doyle Heredia DO at OR [facility] Right: Eye BRII : SURGICAL 10/29/2025 [id number] / [id number] / Lens 19.5 [id number] - [id number] - [id number] Implanted:Qt y: 1 on 03/11/2022 by Doyle Heredia DO at OR [facility] Left: Eye BRII : SURGICAL 10/29/2025 [id number] / [id number] 29 / documented as of this encounter Procedures Procedure Name Priority Date/Time Associated Diagnosis Comments INR FINGERSTICK, POINT OF CARE STAT 12/03/2023 10:55 AM EDT Longstanding persistent atrial fibrillation (HCC) Anticoagulation management encounter 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 documented in this encounter Results * INR FINGERSTICK, POINT OF CARE (12/03/2023 10:55 AM EDT) Fingerstick INR 1.5 INR 10:57 AM EDT [facility]- Blood 12/03/2023 10:5 5 AM EDT 12/03/2023 10:56 AM EDT Narrative [facility]- - 12/03/2023 10:57 AM EDT Therapeutic ranges for non-operative patients: Prophylaxsis/treatment of DVT: (Range:2.0-3.0) Treatment of pulmonary embolism:(Range:2.0-3.0) Prevention of systemic embolism from: -tissue heart valves -acute myocardial infarction -valvular heart disease -atrial fibrillation (Range: 2.0-3.0) Mechanical prosthetic valves: (Range: 2.5-3.5) Alanna Osborn [facility] POINT OF CARE TEST DOCKED DEVICE UNSOLICITED RESULTS [facility] [address] [place] [address] documented in this encounter Visit Diagnoses Diagnosis Anticoagulation management encounter- Primary Encounter for therapeutic drug monitoring Longstanding persistent atrial fibrillation (HCC) 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
--- OUTSIDE RECORDS SUMMARY | 2024-01-06 14:21 | External Medical Summary ---
Author Name Unknown Address Unknown Organization [id number]:[facility] - [address] [place] [address] Laboratory Report Ordering Provider Test Date Status KATHYWILLIAMAayush 12/03/2023 11:04:34 Final Warfarin Therapy
INR: 2 .0-3.0 conventional anticoagulation
INR: 2.5- 3.5 high intensity anticoagulation Observation Date Value Abnormality Reference (Units ) Status PT 12/03/2023 11:04:34 18.4 Above high normal 11 .6-15.2 (seconds) Final INR 12/03/2023 11:04:34 1.5 Above high normal 0. 8-1.2 Final Performing Location [facility] - [address] [place] [address]
--- OUTSIDE RECORDS SUMMARY | 2024-01-06 14:21 | External Medical Summary | Summary of Care ---
Author Name Unknown Organization [facility] Address [address] [place] [address] Phone [phone] Care Team Providers Care Purchasing Manager/Sales Name Role Phone Derrek Sparks MD Primary Care Provider +1- [phone] Reason for Visit * Reason Comments Dosage Adjustment In Person (Anticoag Cl inic) Encounter Details Date Type Department Care Team (Latest Contact Info) Description 12/03/2023 10:50 AM EDT Anticoagulation Pharmacy, [place] [address] [place] [address] 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 [employer] Verio w/Device KitIndications:DM type 2 with diabetic peripheral neuropathy (HCC) Use to check blood sugars daily as directed E11.9 1 Kit 10/10/2020 Active Skysheet In Vitro Strip (Glucose Blood)Indications: DM type [...] Oral Tablet (Coreg)Indications :Coronary artery disease involving [place] coronary artery of [place] heart without angina pectoris,HTN, goal below 140/90 [...] Diagnosed Date Food insecurity 11/08/2023 Overview: Per [facility] Protocol Hypertensive heart disease w [...] cancer 11/06/2019 Coronary artery disease invo lving [place] coronary artery of [place] heart without angina pectoris 07/04/2019 Senile osteoporosis 05/15/2019 Nontoxic uninodular goiter 11/17/2018 Gastroesophageal reflux disease without esophagi tis 11/01/2018 Rheumatoid arthritis 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 03/24/2018 HTN, goal below 140/90 03/24/2018 Old W[place] (myocardial infarction) 03/24/2018 Type 2 diabetes mellitus [...] negative rheumatoid factor 07/04/2019 09/27/19 22 Old W[place] (myocardial infarction) 07/04/2019 09/26/2021 Major depression single epis ode, in partial remission 03/23/2019 08/26/2023 Severe obesity with body mas s index (BMI) of 36.0 to 36.9 with serious comorbidity 11/17/2018 Atherosclerosis of [place] co ronary artery of [place] heart without angina pectoris 11/17/201806/2021 Arteriosclerotic dementia wi th depressive features 11/17/2018 12/16/2018 Compression fracture of lumbar vertebra 11/10/2018 11/07/2021 Iron deficiency anemia 05/26/201812/16 Colorectal polyps 04/22/2018 09/12/2018 Rheumatoid arthritis 12/28/2017 023 Overview: More specified Dx listed on PL Acute W[place] 11/19/2017 11/19/2017 Inflammatory polyarthropathy 11/19/2017 12/16/2018 Loosening [...] (Prevnar) 03/15/2018 Pneumococcal Conjugate Vacci ne, 20-valent ([id number]) 10/26/2023 Pneumococcal Conjugate Vacci ne, 7 Valent [...] Description 12/03/2023 11:00 AM EDT Laboratory Laboratory, [place] [address] [place] [id number] [facility] [address] [place] [address] Arrived 12/08/2023 10:40 AM EDT Office Visit Rheumatology [address] [place] [address] Arnav Damon MD [address] [place] [address] [place] [address] 01/04/2024 11:00 AM EDT Anticoagulation Pharmacy, [place] [address] [place] [address] [facility] [address] [place] [address] 03/24/2024 9:30 AM EDT Office Visit Cardiology, [facility] 132 [facility] [place] [address] Corrine Quinn PA-C 132 [facility] [place] [address] 05/11/2024 10:15 AM EST Office Visit Ophthalmology, [facility] 132 [facility] [place] [address] Doyle Heredia, 21 [facility] [place] [address] 05/18/2024 10:40 AM EST Office Visit [facility], [place] [address] [facility] [phone] Derrek Sparks MD [address] [place] [facility] [place] [address] 05/18/2024 1:00 PM EST Office Visit Dermatology, [place] [address] [place] [facility] [place] [address] Sully Kearns, PA-C [address] [place] [address] [place] [address] Health Maintenance Due Date Last Done Comments [...] 04/21/2021, Additional history exists GFR 10/18/2024 10/19/2023, 0 01/2024, 07/28/2023, Additional history exists Depression Screening 10/25/2024 10/26/2023 Colonoscopy 08/18/2025 08/18/2022, 07/30, 11/14/2020, Additional history exists DTaP,Tdap,and Td Vaccines (4 - Td or Tdap) 03/15/2028 03/15/2018, 03/15/2018, 01/25/2017, Additional history exists RETIRED - COLONOSCOPY-ANNUAL AGES 18-100 Discontinued 08/18/2022, 08/18/2022, 11/14/2020, Additional history exists Influenza Vaccine (FLU shot) Completed 04/13/2023, 03/13/2021, 03/13/2021, Additional history exists VITAMIN D LEVEL ONCE IN A LIFETIME-USE SMARTSET# [id number] Completed 06/22/2023, 06/01/2023, 01/07/2023, Additional history exists [...] this encounter Medical Devices Implanted Type Area Central Supply Clerk Device Identifier Shelf Expiration Date Model / Serial / Lot Lead- 3 Implanted:Qt y: 1 on 01/26/[address] DO Lead Back 1295.04 07/28/2025 [id number] / / Description:Implanted at [facility] Neurostimula [facility]-01/26/2023 Implanted: by Rashaad Street DO (Quantity not on file) Neurostimulator 1295.04 10/25/2025 [id number] / [id number] / Description:Nikita page at [facility] Clip Quick 2.8mm 230cm - [id number] Implanted:Qt y: 4 on 11/14/2020 by Martina Cancino MD at ENDOSCOPY [facility] [employer] 06/27/2023 HX-202UR. A / / Lens 19.5 [id number] - [id number] - [id number] Implanted:Qt y: 1 on 03/26/2021 by Doyle Heredia, DO at OR [facility] Right: Eye BRII : SURGICAL 10/29/2025 [id number] / [id number] 37 / Lens 19.5 [id number] - [id number] - [id number] Implanted:Qt y: 1 on 03/11/2022 by Doyle Heredia, DO at OR [facility] Left: Eye BRII : SURGICAL 10/29/2025 [id number] / [id number] 29 / documented as of this encounter Procedures Procedure Name Priority Date/Time Associated Diagnosis Comments INR FINGERSTICK, POINT OF CARE STAT 12/03/2023 10:55 AM EDT Longstanding persistent atrial fibrillation (HCC) 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 documented in this encounter Results * INR FINGERSTICK, POINT OF CARE (12/03/2023 10:55 AM EDT) Fingerstick INR 1.5 INR 10:57 AM EDT [facility] Blood 12/03/2023 10:5 5 AM EDT 12/03/2023 10:56 AM EDT Narrative LAB[facility]ATORY [place] 56-01 - 12/03/2023 10:57 AM EDT Therapeutic ranges for non-operative patients: Prophylaxsis/treatment of DVT: (Range:2.0-3.0) Treatment of pulmonary embolism:(Range:2.0-3.0) Prevention of systemic embolism from: -tissue heart valves -acute myocardial infarction -valvular heart disease -atrial fibrillation (Range: 2.0-3.0) Mechanical prosthetic valves: (Range: 2.5-3.5) Alanna Osborn [facility] POINT OF CARE TEST DOCKED DEVICE UNSOLICITED RESULTS RASHAD CASTLE [address] [place] [address] documented in this encounter Visit Diagnoses Diagnosis Anticoagulation management encounter- Primary Encounter for therapeutic drug monitoring Longstanding persistent atrial fibrillation (HCC) FDC current use of anticoagulant therapy documented in this encounter Advance Directives * Full Code (Latest Code Status on File) Date Activated Date Inactivated Comments 03/11/2022 7:56 AM 03/11/2022 2:41 PM Question Answer Comments Discussion of Advance Direct donnie occurred with: Not Discussed due to patient's condition Care Teams Purchasing Manager/Sales Relationship Specialty Start Date End Date Derrek Sparks MD [address] [facility] [place] [address] PCP - General Family Medicine 08/04/22 documented as of this encounter"
--- OUTSIDE RECORDS SUMMARY | 2024-01-06 14:22 | External Medical Summary | Summary of Care ---
Author Name Unknown Organization [facility] Address [address] [place] [address] Phone [phone] Care Team Providers Care Front Tender Name Role Phone Fabio Clarke MD Primary Care Provider +1- [phone] Reason for Visit * Reason Comments eRx-Medication Refill Encounter Details Date Type Department Care Team (Late st Contact Info) Description 11/25/2023 Refill [facility] [address] [place] [address] Fabio Clarke MD [address] [place] [address] Allergies Active Allergy Reactions Criticality Noted Date Comments Tello Inhibitors 05/08/2021 Hyperkalemia resulting in 2 hospitalizations Metformin Diarrhea 11/05/2022 Nadolol Itching 03/17/1999 Corgard itchy Nitroglycerin Other (Please comment) 02/09/2011 Headache that is only relieved with Morphine. Nsaids Nausea/vomiting 03/17/1999 relafen documented as of this encounter (statuses as of 11/26/2023) Medications Medication Sig Dispensed Refills Start Date [...] by mouth in the morning. 1 Active SemadicTouch Verio w/Device KitIndications:DM type 2 with diabetic peripheral neuropathy (HCC) Use to check blood sugars daily as directed E11.9 1 Kit 1 Active OneTouch Verio In Vitro Strip (Glucose Blood)Indications :DM type 2 with diabetic peripheral neuropathy (HCC) Use to check blood sugars twice daily as directed Dx E11.9 200 Strip 3 1 Active Cholecalciferol 50 MCG (1999 UT) Oral Capsule DAILY 2 Active Sertraline HCl 25 MG Oral Tablet (Zoloft)Indicatio ns:in am Take 1 tablet by mouth daily. 90 Tablet 3 3 Active Atorvastatin Calcium 80 MG Oral Tablet (Lipitor) Take 1 Tablet by mouth in the morning. 100 Tablet 3 3 Active Carvedilol 25 MG Oral Tablet (Coreg)Indication s:Coronary artery disease involving [place] coronary artery of [place] heart without angina pectoris,HTN, goal below 140/90 [...] [facility] 135 Tablet 1 4 Active Warfarin Sodium 4 MG Oral Tablet (Jantoven) TAKE 1 TO 1& 1/2 TABLETS BY MOUTH EVERY DAY OR DIRECTED BY [facility]ADIN CLINIC 135 Tablet 1 4 11/26/19 24 Discontinued documented as of this encounter (statuses as of 11/26/2023) Active Problems Problem Noted Date Diagnosed Date Food insecurity 11/08/2023 Overview: Per [facility] Protocol Hypertensive heart disease w [...] cancer 11/06/2019 Coronary artery disease invo lving [place] coronary artery of [place] heart without angina pectoris 07/04/2019 Senile osteoporosis [...] as of this encounter (statuses as of 11/26/2023) Resolved Problems Problem Noted Date Diagnosed Date [...] 36.9 with serious comorbidity 11/17/2018 Atherosclerosis of [place] co ronary artery of [place] heart without angina pectoris 11/17/201806/2021 Arteriosclerotic dementia [...] as of this encounter (statuses as of 11/26/2023) Immunizations Name Administration Dates Next Due COVID-19 mRNA, LNP-s, No Pre serve, 2-Dose Series (Pfizer) 10/30/2020,10/09/2020 DT - Diptheria/Tetanus (PEDS) 04/13/2002 PPD 01/19/2018 Pneumococcal Conjugate Vacc, 13 Valent (Prevnar) 03/15/2018 Pneumococcal Conjugate Vacci ne, 20-valent ([id number]) 10/26/2023 Pneumococcal Conjugate Vacci ne, 7 Valent [...] encounter Miscellaneous Notes * Telephone Encounter - Nora Lombardo RPh - 11/26/2023 2:15 PM EDTSigned Prescriptions: Disp Refills Warfarin Sodium 4 MG Oral Tablet (Jantoven)135 Ta*1 Sig: TAKE 1 TO 1& 1/2 TABLETS BY MOUTH EVERY DAY OR DIRECTED BY COUMADIN CLINICAuthorizing Provider: FABIO CLARKE User: NORA LOMBARDO * Telephone Encounter - Nora Lombardo RPh - 11/26/2023 2:11 PM EDT Assessment & Plan Warfarin Plan As of 10/29/2023 Full warfarin instructions: 6 mg every Mon, Fri; 4 mg all other days No change documented: Alanna Osborn [facility] Next INR check: 12/05/2023 Thank you, Nora Lombardo, PharmD Clinical Pharmacist [facility]) 11/26/23 2:14 PM [phone] documented in this encounter Plan of Treatment Upcoming Encounters Date Type Department Care Team (Late st Contact Info) Description 12/03/2023 10:50 AM EDT Antico[facility], [place] [address] [facility] [address] [facility] [address] [facility] [address] 12/08/2023 10:40 AM EDT Office Visit Rheumatology [address] [place] [address] Arnav Damon MD [facility] [place] [address] 03/24/2024 9:30 AM EDT Office Visit Cardiology, [facility] 132 [facility] [place] [address] Corrine Quinn PANehalC 132 [facility] [place] [address] 05/11/2024 10:15 AM EST Office Visit Ophthalmology, [facility] 132 [facility] [place] [address] Doyle Heredia DO 21 [facility] [place] [address] 05/18/2024 10:40 AM EST Office Visit Family Practice, [place] [address] [facility] [address] Fabio Clarke MD [address] [facility] [address] 05/18/2024 1:00 PM EST Office Visit Dermatology, [place] [address] [place] [address] Sully Kearns, PA-C [address] [place] [address] [place] [address] Health Maintenance Due Date Last Done Comments [...] D LEVEL ONCE IN A LIFETIME-USE SMARTSET# 61357 Completed 06/22/2023, 06/01/2023, 01/07/2023, Additional history exists [...] this encounter Medical Devices Implanted Type Area Professor In Family Studies Device Identifier Shelf Expiration Date Model / Serial / Lot Lead- 3 Implanted:Qt y: 1 on 01/26/[address] DO Lead Back 1295.04 07/28/2025 3005-50B / / Description:Implanted at [facility] Neurostimula tor-01/26/2023 Implanted: by Rashaad Street DO (Quantity not on file) Neurostimulator 1295.04 10/25/2025 [id number] / [id number] / Description:Nikita Cole Impl anted at [facility] Clip Quick 2.8mm 230cm - [id number] Implanted:Qt y: 4 on 11/14/2020 by Martina Cancino MD at ENDOSCOPY [facility] [employer] 06/27/2023 HX-202UR. A / / Lens 19.5 [id number] - [id number] - [id number] Implanted:Qt y: 1 on 03/26/2021 by Doyle Heredia DO at OR [facility] Right: Eye BRII : SURGICAL 10/29/2025 [id number] / [id number] 37 / Lens 19.5 [id number] - [id number] - [id number] Implanted:Qt y: 1 on 03/11/2022 by Doyle Heredia DO at OR [facility] Left: Eye BRII : SURGICAL 10/29/2025 [id number] / [id number] 29 / documented as of this encounter Advance Directives * Full Code (Latest Code Status on File) Date Activated Date Inactivated Comments 03/11/2022 7:56 AM 03/11/2022 2:41 PM Question Answer Comments Discussion of Advance Direct donnie occurred with: Not Discussed due to patient's condition Care Teams Front Tender Relationship Specialty Start Date End Date Fabio Clarke MD [address] [place] [address] PCP - General Family Medicine 08/04/22 documented as of this encounter
--- OUTSIDE RECORDS SUMMARY | 2024-01-06 14:22 | External Medical Summary ---
Author Name Unknown Address Unknown Organization K01:LAB[facility]ATORY [facility] - [address] [place] [address] Laboratory Report Ordering Provider Test Date Status LENCHO HERNANDEZ 12/03/2023 11:04:34 Final Deficient: <20 ng/mL
Ins ufficient: 20-29 ng/mL
Recommended/Optimum:30-50 ng/mL

Vitamin D intoxication is rare. If suspicious of Vitamin D toxicity, evaluation of serum Calcium and PTH is recommended. Observation Date Value Abnormality Reference (Units ) Status 25-OH Vitamin D total 12/03/2023 11:04:34 24 >19 (ng/mL) Final Performing Location LABORATORY C - [address] [place] [address]
--- OUTSIDE RECORDS SUMMARY | 2024-01-06 14:22 | External Medical Summary | Summary of Care ---
Author Name Unknown Organization [facility] Address [address] [place] [address] Phone [phone] Care Team Providers Care Criminal Judge Name Role Phone Derrek Sparks MD Primary Care Provider +1- [phone] Encounter Details Date Type Department Care Team (Late st Contact Info) Description 11/30/2023 Population Health External Data Unspecified Department Allergies Active Allergy Reactions Criticality Noted Date Comments Tello Inhibitors 05/08/2021 Hyperkalemia resulting in 2 hospitalizations Metformin Diarrhea 11/05/2022 Nadolol Itching 03/17/1999 Corgard itchy Nitroglycerin Other (Please comment) 02/09/2011 Headache that is only relieved with Morphine. Nsaids Nausea/vomiting 03/17/1999 relafen documented as of this encounter (statuses as of 11/30/2023) Medications Medication Sig Dispensed Refills Start Date [...] by mouth in the morning. 07/22/2020 Active OneTouch Verio w/Device KitIndications:DM type 2 with diabetic peripheral neuropathy (HCC) Use to check blood sugars daily as directed E11.9 1 Kit 10/10/2020 Active OneTouch Verio In Vitro Strip (Glucose Blood)Indications: DM [...] Oral Tablet (Coreg)Indications :Coronary artery disease involving [place] coronary artery of [place] heart without angina pectoris,HTN, goal below 140/90 [...] [facility]IN CLIN[facility] 135 Tablet 1 11/26/2023 Active documented as of this encounter (statuses as of 11/30/2023) Active Problems Problem Noted Date Diagnosed Date [...] cancer 11/06/2019 Coronary artery disease invo lving [place] coronary artery of [place] heart without angina pectoris 07/04/2019 Senile osteoporosis [...] as of this encounter (statuses as of 11/30/2023) Resolved Problems Problem Noted Date Diagnosed Date [...] 36.9 with serious comorbidity 11/17/2018 Atherosclerosis of [place] co ronary artery of [place] heart without angina pectoris 11/17/201806/2021 Arteriosclerotic dementia [...] as of this encounter (statuses as of 11/30/2023) Immunizations Name Administration Dates Next Due COVID-19 mRNA, LNP-s, No Pre serve, 2-Dose Series (Pfizer) 10/30/2020,10/09/2020 DT - Diptheria/Tetanus (PEDS) 04/13/2002 PPD 01/19/2018 Pneumococcal Conjugate Vacc, 13 Valent (Prevnar) 03/15/2018 Pneumococcal Conjugate Vacci ne, 20-valent ([id number]) 10/26/2023 Pneumococcal Conjugate Vacci ne, 7 Valent [...] Description 12/03/2023 10:50 AM EDT [facility] [place] [address] [facility] [address] [place] [address] [facility] [address] 12/08/2023 10:40 AM EDT Office Visit Rheumatology [address] [place] [address] Arnav Damon MD [facility] [place] [address] 03/24/2024 9:30 AM EDT Office Visit Cardiology, [facility] [address] [facility] [place] [address] Corrine Quinn PA-C 132 [facility] [place] [address] 05/11/2024 10:15 AM EST Office Visit Ophthalmology, [facility] [address] [facility] [place] [address] Doyle Heredia DO 21 [facility] [place] [address] 05/18/2024 10:40 AM EST Office Visit Family Practice, [place] [address] [address] [facility] [phone] Derrek Sparks MD [address] [facility] [address] 05/18/2024 1:00 PM EST Office Visit Dermatology, [place] [address] [address] [facility] [address] Sully Kearns PAAmita [address] [place] [address] [place] [address] Health Maintenance Due Date Last Done Comments [...] D LEVEL ONCE IN A LIFETIME-USE SMARTSET# [id number] Completed 06/22/2023, 06/01/2023, 01/07/2023, Additional history exists [...] this encounter Medical Devices Implanted Type Area Residential Specialist Device Identifier Shelf Expiration Date Model / Serial / Lot Lead- 3 Implanted:Qt y: 1 on 01/26/[address] DO Lead Back 1295.04 07/28/2025 3005-50B / / Description:Implanted at [facility] Neurostimula tor-01/26/2023 Implanted: by Rashaad Street DO (Quantity not on file) Neurostimulator 1295.04 10/25/2025 [id number] / [id number] / Description:Nikita Cole Impl anted at [facility] Clip Quick 2.8mm 230cm - [id number] Implanted:Qt y: 4 on 11/14/2020 by Martina Cancino MD at ENDOSCOPY [facility] [employer] 06/27/2023 HX-202UR. A / / Lens 19.5 [id number] - [id number] - [id number] Implanted:Qt y: 1 on 03/26/2021 by Doyle Heredia DO at OR [facility] Right: Eye BRII : SURGICAL 10/29/2025 [id number] / [id number] / Lens 19.5 [id number] - [id number] - [id number] Implanted:Qt y: 1 on 03/11/2022 by Doyle Heredia DO at OR [facility] Left: Eye BRII : SURGICAL 10/29/2025 [id number] / [id number] 29 / documented as of this encounter Advance Directives * Full Code (Latest Code Status on File) Date Activated Date Inactivated Comments 03/11/2022 7:56 AM 03/11/2022 2:41 PM Question Answer Comments Discussion of Advance Direct donnie occurred with: Not Discussed due to patient's condition Care Teams Criminal Judge Relationship Specialty Start Date End Date Derrek Sparks MD [address] [place] [address] PCP - General Family Medicine 08/04/22 documented as of this encounter
--- OUTSIDE RECORDS SUMMARY | 2024-01-06 14:22 | External Medical Summary | Summary of Care ---
Author Name Unknown Organization [facility] Address [address] [place] [address] Phone [phone] Care Team Providers Care Shop Repairer Name Role Phone Derrek Sparks MD Primary Care Provider [phone]- [phone] Reason for Visit * Reason Onset Date Comments Advice 08/23/2023 Corrine Wong Encounter Details Date Type Department Care Team (Late st Contact Info) Description 08/23/2023 Telephone Cardiology, [facility] [address] [place] [id number] Corrine Quinn PA-C [address] [place] [address] Advice (Corrine Quinn PA-C) Allergies Active Allergy Reactions Criticality Noted Date Comments Tello Inhibitors 05/08/2021 Hyperkalemia resulting in 2 hospitalizations Metformin Diarrhea 11/05/2022 Nadolol Itching 03/17/1999 Corgard itchy Nitroglycerin Other (Please comment) 02/09/2011 Headache that is only relieved with Morphine. Nsaids Nausea/vomiting 03/17/1999 relafen documented as of this encounter (statuses as of 11/22/2023) Medications Medication Sig Dispensed Refills Start Date End Date Status ONETOUCH ULTRASOFT LANCETS MISCIndications: DM type 2 with diabetic peripheral neuropathy (HCC) Use to check blood sugars daily as directed E11.9 1 Box Dosing Unit 11 9 Active Aspirin 81 MG TabletIndication s:in am Take 1 Tablet by mouth in [...] (Ferrous Sulfate) 325 (65 Fe) MG Oral TabletIndication s:1 tablet in am Take 1 Tablet by mouth in the morning. 1 Active OneToVHT Verio w/Device KitIndications:D M type 2 with diabetic peripheral neuropathy (HCC) Use to check blood sugars daily as directed E11.9 1 Kit 1 Active [employer] Verio In Vitro Strip (Glucose Blood)Indication s:DM type 2 with diabetic peripheral neuropathy (HCC) Use to check blood sugars twice daily as directed Dx E11.9 200 Strip 3 1 Active Cholecalciferol 50 MCG (2000 UT) Oral Capsule DAILY 2 Active Sertraline HCl 25 MG Oral Tablet (Zoloft)Indicati ons:in am Take 1 tablet by mouth daily. 90 Tablet 3 3 Active Atorvastatin Calcium 80 MG Oral Tablet (Lipitor) Take 1 Tablet by mouth in the morning. 100 Tablet 3 3 Active Carvedilol 25 MG Oral Tablet (Coreg)Indicatio ns:Coronary artery disease involving mcgrath coronary artery of mcgrath heart without angina pectoris,HTN, goal below 140/90 [...] 4 Active Furosemide 40 MG Oral Tablet (Lasix)Indicatio ns:HTN, goal below 140/90 Take 1 Tablet by mouth in the morning. 90 Tablet 3 4 Active Warfarin Sodium 4 MG Oral Tablet (Jantoven) TAKE 1 TO 1& 1/2 TABLETS BY MOUTH EVERY DAY OR DIRECTED BY COUMADIN CLINIC 135 Tablet 1 4 Active Terazosin HCl 2 MG Oral CapsuleIndicatio ns:HTN, goal below 140/80,Dizziness TAKE 2 CAPSULES BY MOUTH AT ONCE DAILY AT BEDTIME. 180 Capsule 3 4 Active hydrALAZINE HCl 100 MG Oral TabletIndication s:HTN, goal below 140/90 TAKE 1 TABLET BY MOUTH IN THE MORNING AND 1 TABLET AT NOON AND 1 TABLET BEFORE BEDTIME 270 Tablet 3 4 Active Diclofenac Sodium 1 % External Gel (Voltaren)Indica tions:Left foot pain Apply topically to affected area 4 times a day. Apply to bilateral feet. 150 g 2 3 10/26/19 24 Discontinued(Med ication List Clean Up) Valsartan 160 MG Oral Tablet (Diovan) Take 1 Tablet by mouth daily. 3 10/26/19 24 Discontinued(Med ication List Clean Up) cloNIDine HCl 0.1 MG Oral Tablet (Catapres)Indica tions:HTN, goal below 140/80 TAKE 1 TABLET BY MOUTH IN THE MORNING AND 1 TABLET BEFORE BEDTIME. 180 Tablet 3 3 11/08/19 24 Discontinued Dicyclomine HCl 10 MG Oral Capsule (Bentyl)Indicati ons:Abdominal cramps Take 1 capsule by mouth twice per day as needed for abd pain. 60 Capsule 3 09/15/19 24 Discontinued(Ref ill) Linzess 145 MCG Oral Capsule (linaCLOtide)Ind ications:Constip ation, unspecified constipation type,Chronic idiopathic constipation Take 1 Capsule by mouth daily before breakfast. 90 Capsule 3 3 10/26/19 24 Discontinued(Med ication List Clean Up) amLODIPine Besylate 5 MG Oral Tablet (Norvasc)Indicat ions:Resistant hypertension,HTN , goal below 140/90,Longstand ing persistent atrial fibrillation (HCC),Atheroscle rosis of aorta (HCC) Take 1 Tablet by mouth in the morning and 1 Tablet before bedtime. 180 Tablet 1 3 11/08/19 24 Discontinued Spironolactone 25 MG Oral Tablet (Aldactone)Indic ations:HTN, goal below 130/80 Take 1 Tablet by mouth in the morning. 4 08/23/19 24 Discontinued(Ref ill) Spironolactone 25 MG Oral Tablet (Aldactone)Indic ations:HTN, goal below 130/80,Chronic diastolic congestive heart failure (HCC),Persistent atrial fibrillation (HCC) Take 1 Tablet by mouth in the morning. 90 Tablet 3 4 08/27/19 24 Discontinued(Ref ill) documented as of this encounter (statuses as of 11/22/2023) Active Problems Problem Noted Date Diagnosed Date Food insecurity 11/08/2023 Overview: Per [facility] Protocol Hypertensive heart disease w [...] cancer 11/06/2019 Coronary artery disease invo lving mcgrath coronary artery of mcgrath heart without angina pectoris 07/04/2019 Senile osteoporosis 05/15/2019 Nontoxic uninodular goiter 11/17/2018 Gastroesophageal reflux disease without esophagi tis 11/01/2018 Rheumatoid arthritis 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 03/24/2018 HTN, goal below 140/90 03/24/2018 Old [place] (myocardial infarction) 03/24/2018 Type 2 diabetes mellitus [...] as of this encounter (statuses as of 11/22/2023) Resolved Problems Problem Noted Date Diagnosed Date [...] negative rheumatoid factor 07/04/2019 09/27/19 22 Old SD (myocardial infarction) 07/04/2019 09/26/2021 Major depression single epis ode, in partial remission 03/23/2019 08/26/2023 Severe obesity with body mas s index (BMI) of 36.0 to 36.9 with serious comorbidity 11/17/2018 Atherosclerosis of mcgrath co ronary artery of mcgrath heart without angina pectoris 11/17/201806/2021 Arteriosclerotic dementia wi th depressive features 11/17/2018 12/16/2018 Compression fracture of lumbar vertebra 11/10/2018 11/07/2021 Iron deficiency anemia 05/26/201812/16 Colorectal polyps 04/22/2018 09/12/2018 Rheumatoid arthritis 12/28/2017 023 Overview: More specified Dx listed on PL Acute SD 11/19/2017 11/19/2017 Inflammatory polyarthropathy 11/19/2017 12/16/2018 Loosening [...] as of this encounter (statuses as of 11/22/2023) Immunizations Name Administration Dates Next Due COVID-19 mRNA, LNP-s, No Pre serve, 2-Dose Series (Songtradr) 10/30/2020,10/09/2020 DT - Diptheria/Tetanus (PEDS) 04/13/2002 PPD 01/19/2018 Pneumococcal Conjugate Vacc, 13 Valent (Prevnar) 03/15/2018 Pneumococcal Conjugate Vacci ne, 7 Valent 07/12/2014 [...] encounter Miscellaneous Notes * Telephone Encounter - Maria R Curry CMA - 08/30/2023 4:08 PM EST Left message on pharmacy VM with prescriber and Rx renewal details. * Telephone Encounter - Shira Jain OSA - 08/27/2023 10:16 AM EST Person calling: Elmira Relationship to patient: self Number to return call: [phone] Reason for call: due to the increase in dosage with Spironolactone 25 MG Oral . Patient is out of this med. Dhaval told patient to have Corrine Quinn's office call in the script, their fax is down [phone] Provider Name:Kai * Telephone Encounter - Corrine Quinn PA-C - 2023 5:24 PM EST Orders signed as requested. * Telephone Encounter - Layla Davis OSA - 08/23/2023 4:21 PM EST Person calling: Elmira Tavares Relationship to patient: Self Number to return call: [phone] Reason for call: Advice Pharmacy: [facility] [place] Provider Name:Corrine Quinn PA-C The patient called stating that the dosage of her Spironolactone 25 MG Oral Tablet (Aldactone) was changed and she ran through her prescription quitequickly. She needs a new presciption with more pills. Please advise. Thank you, ISATU Torre documented in this encounter Plan of Treatment Upcoming Encounters Date Type Department Care Team (Late st Contact Info) Description 11/26/2023 11:15 AM EDT Imaging Radiology [address] [place] [address] 12/03/2023 10:50 AM EDT [facility], [place] [address] [facility] [address] [facility] [address] [facility] [address] 12/08/2023 10:40 AM EDT Office Visit Rheumatology [address] [place] [address] Aranv Damon MD [address] [place] [address] [place] [address] 03/24/2024 9:30 AM EDT Office Visit Cardiology, [facility] [address] [facility] [place] [address] Corrine Quinn, PA-C [address] [facility] [place] [address] 05/11/2024 10:15 AM EST Office Visit Ophthalmology, [facility] [address] [facility] [place] [address] Doyle Heredia DO [address] [facility] [place] [address] 05/18/2024 10:40 AM EST [facility] [facility] [address] [place] [phone] Derrek Sparks MD [address] [place] [address] 05/18/2024 1:00 PM EST Office Visit Dermatology, [address] [address] Sully Kearns, PAAmita [address] [place] [address] [place] [address] Health Maintenance Due Date Last Done Comments Zoster Vaccines (2 of 3) 03/11/2016 01/15/2016 COVID-19 Vaccine (3 2022- season) 2023 10/30/2020, 10/09/2020 Diabetic Foot [...] D LEVEL ONCE IN A LIFETIME-USE SMARTSET# [id number] Completed 06/22/2023, 06/01/2023, 01/07/2023, Additional history exists [...] this encounter Medical Devices Implanted Type Area Transportation Sales Consultant Device Identifier Shelf Expiration Date Model / Serial / Lot Lead- 3 Implanted:Qt y: 1 on 01/26/[address], DO Lead Back 1295.04 07/28/2025 [id number] / / Description:Implanted at [facility] Neurostimula tor-01/26/2023 Implanted: by Rashaad Street DO (Quantity not on file) Neurostimulator 1295.04 10/25/2025 [id number] / [id number] / Description:Nikita Cole Impl anted at [facility] Clip Quick 2.8mm 230cm - [id number] Implanted:Qt y: 4 on 11/14/2020 by Martina Cancino MD at [facility] [employer] 06/27/2023 HX-202UR. A / / Lens 19.5 [id number] - [id number] - [id number] Implanted:Qt y: 1 on 03/26/2021 by Doyle Heredia DO at OR [facility] Right: Eye BRII : SURGICAL 10/29/2025 [id number] / [id number] 37 / Lens 19.5 [id number] - [id number] - [id number] Implanted:Qt y: 1 on 03/11/2022 by Doyle Heredia DO at OR [facility] Left: Eye BRII : SURGICAL 10/29/2025 [id number] / [id number] 29 / documented as of this encounter Visit Diagnoses Diagnosis HTN, goal below 130/80- Primary Unspecified essential hypertension Chronic diastolic congestive heart failure (HCC) Chronic diastolic heart failure Persistent atrial fibrillation (HCC) Atrial fibrillation documented in this encounter Advance Directives * Full Code (Latest Code Status on File) Date Activated Date Inactivated Comments 03/11/2022 7:56 AM 03/11/2022 2:41 PM Question Answer Comments Discussion of Advance Direct donnie occurred with: Not Discussed due to patient's condition Care Teams Shop Repairer Relationship Specialty Start Date End Date Derrek Sparsk MD [address] [facility] [place] [place] [address] PCP - General Family Medicine 08/04/22 documented as of this encounter
--- OUTSIDE RECORDS SUMMARY | 2024-01-06 14:22 | External Medical Summary | Summary of Care ---
Author Name Unknown Organization [facility] Address [address] [place] [address] Phone [phone] Care Team Providers Care Railway Track Plant Operator Name Role Phone Derrek Sparks MD Primary Care Provider [phone]- [phone] Reason for Visit * Reason Onset Date Comments Order Request 12/01/2023 Vit D / prolia Encounter Details Date Type Department Care Team (Late st Contact Info) Description 12/01/2023 Telephone Rheumatology [address] [place] [address] Arnav Damon MD [address] [place] [address] [place] [address] Order Request (Vit D / prolia) Allergies Active Allergy Reactions Criticality Noted Date Comments Tello Inhibitors 05/08/2021 Hyperkalemia resulting in 2 hospitalizations Metformin Diarrhea 11/05/2022 Nadolol Itching 03/17/1999 Corgard itchy Nitroglycerin Other (Please comment) 02/09/2011 Headache that is only relieved with Morphine. Nsaids Nausea/vomiting 03/17/1999 relafen documented as of this encounter (statuses as of 12/01/2023) Medications Medication Sig Dispensed Refills Start Date [...] by mouth in the morning. 07/22/2020 Active [employer] Verio w/Device KitIndications:DM type 2 with diabetic peripheral neuropathy (HCC) Use to check blood sugars daily as directed E11.9 1 Kit 10/10/2020 Active [employer] In Vitro Strip (Glucose Blood)Indications: DM type [...] Oral Tablet (Coreg)Indications :Coronary artery disease involving assiniboine and sioux coronary artery of assiniboine and sioux heart without angina pectoris,HTN, goal below 140/90 [...] as of this encounter (statuses as of 12/01/2023) Active Problems Problem Noted Date Diagnosed Date Food insecurity 11/08/2023 Overview: Per [place] Protocol Hypertensive heart disease w [...] cancer 11/06/2019 Coronary artery disease invo lving assiniboine and sioux coronary artery of assiniboine and sioux heart without angina pectoris 07/04/2019 Senile osteoporosis 05/15/2019 Nontoxic uninodular goiter 11/17/2018 Gastroesophageal reflux disease without esophagi tis 11/01/2018 Rheumatoid arthritis 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 03/24/2018 HTN, goal below 140/90 03/24/2018 Old [place] (myocardial infarction) 03/24/2018 Type 2 diabetes mellitus [...] as of this encounter (statuses as of 12/01/2023) Resolved Problems Problem Noted Date Diagnosed Date [...] negative rheumatoid factor 07/04/2019 09/27/19 22 Old [place] (myocardial infarction) 07/04/2019 09/26/2021 Major depression single epis ode, in partial remission 03/23/2019 08/26/2023 Severe obesity with body mas s index (BMI) of 36.0 to 36.9 with serious comorbidity 11/17/2018 Atherosclerosis of assiniboine and sioux co ronary artery of assiniboine and sioux heart without angina pectoris 11/17/201806/2021 Arteriosclerotic dementia wi th depressive features 11/17/2018 12/16/2018 Compression fracture of lumbar vertebra 11/10/2018 11/07/2021 Iron deficiency anemia 05/26/201812/16 Colorectal polyps 04/22/2018 09/12/2018 Rheumatoid arthritis 12/28/2017 023 Overview: More specified Dx listed on PL Acute [place] 11/19/2017 11/19/2017 Inflammatory polyarthropathy 11/19/2017 12/16/2018 Loosening [...] as of this encounter (statuses as of 12/01/2023) Immunizations Name Administration Dates Next Due COVID-19 mRNA, LNP-s, No Pre serve, 2-Dose Series (Pfizer) 10/30/2020,10/09/2020 DT - Diptheria/Tetanus (PEDS) 04/13/2002 PPD 01/19/2018 Pneumococcal Conjugate Vacc, 13 Valent (Prevnar) 03/15/2018 Pneumococcal Conjugate Vacci ne, 20-valent (Tsepcyt11) 10/26/2023 Pneumococcal Conjugate Vacci ne, 7 Valent [...] encounter Miscellaneous Notes * Telephone Encounter - Arnav Damon MD [...] Description 12/03/2023 10:50 AM EDT [facility], [place] [address] [facility] [address] [place] [address] [facility] [address] 12/08/2023 10:40 AM EDT [address] [place] [address] Arnav Damon MD [address] [facility] [place], [place] [address] 03/24/2024 9:30 AM EDT Office Visit Cardiology, [facility] [address] [facility] [place] [address] Corrine Quinn PA-C [address] [facility] [place] [address] 05/11/2024 10:15 AM EST Office Visit Ophthalmology, [facility] [address] [facility] [place] [address] Doyle Heredia, [address] [facility] [place] [address] 05/18/2024 10:40 AM EST Office Visit Family [place] [address] [place] [phone] Derrek Sparks MD [address] [place] [address] 05/18/2024 1:00 PM EST Office Visit Dermatology, [place] [address] [place] [address] Sully Kearns, PAAmita [address] [place] [address] [place] [address] Scheduled Orders Name Type Priority Associated Diagnoses Orde r Schedule 25-HYDROXY VITAMIN D Lab Routine Senile osteoporosis Expected: 12/01/2023, Expires: 11/30/2024 Health Maintenance Due Date Last Done Comments [...] D LEVEL ONCE IN A LIFETIME-USE SMARTSET# [id number] Completed 06/22/2023, 06/01/2023, 01/07/2023, Additional history exists [...] this encounter Medical Devices Implanted Type Area Political Worker Device Identifier Shelf Expiration Date Model / Serial / Lot Lead- 3 Implanted:Qt y: 1 on 01/26/[address] DO Lead Back 1295.04 07/28/2025 [id number] / / Description:Implanted at [facility] Neurostimula tor-01/26/2023 Implanted: by Rashaad Street DO (Quantity not on file) Neurostimulator 1295.04 10/25/2025 [id number] / [id number] / Description:Nikita Cole Impl anted at [facility] Clip Quick 2.8mm 230cm - [id number] Implanted:Qt y: 4 on 11/14/2020 by Martina Cancino MD at [facility] [email or web address] 06/27/2023 HX-202UR. A / / Lens 19.5 [id number] - [id number] - [id number] Implanted:Qt y: 1 on 03/26/2021 by Doyle Heredia DO at OR [facility] Right: Eye BRII : SURGICAL 10/29/2025 [id number] / [id number] 37 / Lens 19.5 [id number] - [id number] - [id number] Implanted:Qt y: 1 on 03/11/2022 by Doyle Heredia DO at OR [facility] Left: Eye BRII : SURGICAL 10/29/2025 [id number] / [id number] 29 / documented as of this encounter Visit Diagnoses Diagnosis Senile osteoporosis- Primary documented in this encounter Advance Directives * Full Code (Latest Code Status on File) Date Activated Date Inactivated Comments 03/11/2022 7:56 AM 03/11/2022 2:41 PM Question Answer Comments Discussion of Advance Direct donnie occurred with: Not Discussed due to patient's condition Care Teams Railway Track Plant Operator Relationship Specialty Start Date End Date Derrek Sparks MD [address] [facility] [address] PCP - General Family Medicine 08/04/22 documented as of this encounter
--- OUTSIDE RECORDS SUMMARY | 2024-01-06 14:22 | External Medical Summary | Summary of Care ---
Author Name Unknown Organization [facility] Address [address] [place] [address] Phone [phone] Care Team Providers Care Generator Repairer Name Role Phone Derrek Sparks MD Primary Care Provider [phone] Reason for Referral * Evaluate & Treat - Unlimited Visits (Within 30 days (routine)) - Authorized Specialty Diagnoses / Procedures Referred By Candice girard Referred To Contact Neurology Diagnoses Memory loss Derrek Sparks MD [address] [place] [address] Referral ID Status Reason Start Date Expiration Date Visits Requested Visits Authorized [id number] Authorized Specialty Services Required 12/01/[phone] Question Answer Referral Priority Within 30 days (routine) Where should this appointment be scheduled? [facility] Is this referral being placed for insurance purposes ONLY No, patient needs appointment [facility] NEUROLOGY REFERRAL QUESTIONS Memory/Cognition Reason for Visit * Reason Onset Date Comments Test Results 11/30/2023 Encounter Details Date Type Department Care Team ([facility] st Contact Info) Description 11/30/2023 Telephone [facility] [address] [place] [address] Derrek Sparks MD [address] [place] [address] Test Results Allergies Active Allergy Reactions Criticality Noted Date Comments Tello Inhibitors 05/08/2021 Hyperkalemia resulting in 2 hospitalizations Metformin Diarrhea 11/05/2022 Nadolol Itching 03/17/1999 Corgard itchy Nitroglycerin Other (Please comment) 02/09/2011 Headache that is only relieved with Morphine. Nsaids Nausea/vomiting 03/17/1999 relafen documented as of this encounter (statuses as of 12/02/2023) Medications Medication Sig Dispensed Refills Start Date [...] by mouth in the morning. 07/22/2020 Active Percolateio w/Device KitIndications:DM type 2 with diabetic peripheral neuropathy (HCC) Use to check blood sugars daily as directed E11.9 1 Kit 10/10/2020 Active [employer] In Vitro Strip (Glucose Blood)Indications: DM type 2 with diabetic peripheral neuropathy (HCC) Use to check blood sugars twice daily as directed Dx E11.9 200 Strip 3 10/10/2020 Active Cholecalciferol 50 MCG (1999 UT) Oral Capsule DAILY 03/27/2022 Active Sertraline HCl 25 MG Oral Tablet (Zoloft)Indication s:in am Take 1 tablet by mouth daily. 90 Tablet 3 01/02/2023 Active Atorvastatin Calcium 80 MG Oral Tablet (Lipitor) Take 1 Tablet by mouth in the morning. 100 Tablet 3 01/07/2023 Active Carvedilol 25 MG Oral Tablet (Coreg)Indications :Coronary artery disease involving [place] coronary artery [...] as of this encounter (statuses as of 12/02/2023) Active Problems Problem Noted Date Diagnosed Date [...] 03/24/2018 HTN, goal below 140/90 03/24/2018 Old MA (myocardial infarction) 03/24/2018 Type 2 diabetes mellitus [...] as of this encounter (statuses as of 12/02/2023) Resolved Problems Problem Noted Date Diagnosed Date [...] of 2020 Historical Black tarry stools 01/25/2021 3 Overview: Noted in 2020 historical Anxiety state 07/04/2019 09/20/2022 Diabetes mellitus with peripheral angiopathy 0 09/26/2021 Rheumatoid arthritis 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 07/04/2019 09/27/19 22 Old MA (myocardial infarction) 07/04/2019 09/26/2021 Major depression single [...] More specified Dx listed on PL Acute MA 11/19/2017 11/19/2017 Inflammatory polyarthropathy 11/19/2017 12/16/2018 Loosening [...] as of this encounter (statuses as of 12/02/2023) Immunizations Name Administration Dates Next Due COVID-19 mRNA, LNP-s, No Pre serve, 2-Dose Series (Pfizer) 10/30/2020,10/09/2020 DT - Diptheria/Tetanus (PEDS) 04/13/2002 PPD 01/19/2018 Pneumococcal Conjugate Vacc, 13 Valent (Prevnar) 03/15/2018 Pneumococcal Conjugate Vacci ne, 20-valent ([id number]) 10/26/2023 Pneumococcal Conjugate Vacci ne, 7 Valent [...] Telephone Encounter - Sully Terry OSA - 12/02/2023 8:21 AM EDT [place] [facility] [place] [facility] first available wasn't until October 06, 2024. 12/02/2023 * Telephone Encounter - Derrek Sparks MD - 12/01/2023 4:59 PM EDT Please assist with neurology referral * Telephone Encounter - Alexandria Ruff LPN - 12/01/2023 8:59 AM EDT Called and spoke with patient and she states she would like to go forward with the neurology referral. * Telephone Encounter - Derrek Sparks MD - 11/30/2023 10:24 PM EDT Please call to notify that the MRI of the brain is fine. No concerning findings. No stroke, tumor, lesion. Good news! For her memory issues, can offer referral to neurology. No changes from me at this time. documented in this encounter Plan of Treatment Upcoming Encounters Date Type Department Care Team (Late st Contact Info) Description 12/03/2023 10:50 AM EDT Anticoagulation Pharmacy, [place] [address] [place] [address] [facility] [place] [facility] [place] [address] 12/08/2023 10:40 AM EDT Office Visit Rheumatology [address] [place] [address] Arnav Damon MD [address] [place] [address] [place] [address] 03/24/2024 9:30 AM EDT Office Visit Cardiology, [facility] [address] [facility] [place] [address] Corrine Quinn PA-C [address] [facility] [place] [address] 05/11/2024 10:15 AM EST Office Visit Ophthalmology, [facility] [address] [place] [address] Doyle Heredia, [address] [facility] [place] [address] 05/18/2024 10:40 AM EST Office Visit Family [facility] [id number] Derrek Sparks MD [address] [address] 05/18/2024 1:00 PM EST Office Visit Dermatology, [place] [address] [facility] [place] [address] Sully Kearns PA-C [address] [place] [address] [place] [address] Scheduled Referrals Name Type Priority Associated Diagnoses Orde r Schedule ADULT NEUROLOGY REFERRAL OP Referral Within 30 days (routine) Memory loss Ordered: 12/01/2023 Health Maintenance Due Date Last Done Comments [...] Depression Screening 10/25/2024 10/26/2023 Colonoscopy 08/18/2025 08/18/2022, 02/06/2022, 11/14/2020, Additional history exists DTaP,Tdap,and Td Vaccines (4 - Td or Tdap) 03/15/2028 03/15/2018, 03/15/2018, 01/25/2017, Additional history exists RETIRED - COLONOSCOPY-ANNUAL AGES 18-100 Discontinued 08/18/2022, 08/18/2022, 11/14/2020, Additional history exists Influenza Vaccine (FLU shot) Completed 04/13/2023, 03/13/2021, 03/13/2021, Additional history exists VITAMIN D LEVEL ONCE IN A LIFETIME-USE SMARTSET# [id number] Completed 06/22/2023, 06/01/2023, 01/07/2023, Additional history exists [...] this encounter Medical Devices Implanted Type Area Tar Chaser Device Identifier Shelf Expiration Date Model / Serial / Lot Lead- 3 Implanted:Qt y: 1 on 01/26/[address] DO Lead Back 1295.04 07/28/2025 [id number] / / Description:Implanted at [facility] Neurostimula tor-01/26/2023 Implanted: by Rashaad Street DO (Quantity not on file) Neurostimulator 1295.04 10/25/2025 [id number] / [id number] / Description:Nikita page at [facility] Clip Quick 2.8mm 230cm - [id number] Implanted:Qt y: 4 on 11/14/2020 by Martina Cancino MD at ENDOSCOPY [facility] [employer] 06/27/2023 [id number] / / Lens 19.5 [id number] - [id number] - [id number] Implanted:Qt y: 1 on 03/26/2021 by Doyle Heredia DO at [facility] Right: Eye BRII : SURGICAL 10/29/2025 [id number] / [id number] / Lens 19.5 [id number] - [id number] - [id number] Implanted:Qt y: 1 on 03/11/2022 by Doyle Heredia DO at OR [facility] Left: Eye BRII : SURGICAL 10/29/2025 [id number] / [id number] / documented as of this encounter Visit Diagnoses Diagnosis Memory loss- Primary documented in this encounter Advance Directives * Full Code (Latest Code Status on File) Date Activated Date Inactivated Comments 03/11/2022 7:56 AM 03/11/2022 2:41 PM Question Answer Comments Discussion of Advance Direct donnie occurred with: Not Discussed due to patient's condition Care Teams Generator Repairer Relationship Specialty Start Date End Date Derrek Sparks MD [address] [facility] [address] PCP - General Family Medicine 08/04/22 documented as of this encounter
--- OUTSIDE RECORDS SUMMARY | 2024-01-06 14:22 | External Medical Summary | Summary of Care ---
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 Aeronautical Engineering Professor Name Role Phone Derrek Sparks MD Primary Care Provider [phone] Reason for Referral * Evaluate & Treat - Unlimited Visits (Within 30 days (routine)) - Authorized Specialty Diagnoses / Procedures Referred By Candice girard Referred To Contact Dermatology Diagnoses Lesion of face Derrek Sparks MD [address] [place] [address] Referral ID Status Reason Start Date Expiration Date Visits Requested Visits Authorized [id number] Authorized Specialty Services Required 10/26/[phone] Question Answer Referral Priority Within 30 days (routine) Where should this appointment be scheduled? [facility] Are you referring the patient for Mohs Surgery and have a current positive skin cancer biopsy result? No What is the reason for the patient referral? Rash/Skin Check/Eval of Lesion or Mole * Precert (Within 10 days (routine)) - Pending Review Specialty Diagnoses / Procedures Referred By Candice t Referred To Contact Radiology Diagnoses Memory loss Fall, initial encounter Procedures MRI BRAIN WITHOUT CONTRAST Derrek Sparks MD [address] [place] [address] Referral ID Status Reason Start Date Expiration Date V isits Requested Visits Authorized [id number] Pending Review 10/26/[phone] Reason for Visit * Reason Onset Date Comments Status Check Return in 6 jovi hs Ear Flush 10/26/2023 Encounter Details Date Type Department Care Team (Late st Contact Info) Description 10/26/2023 6:20 PM EDT Office Visit [facility] [address] [place] [address] Derrek Sparks MD [address] [place] [address] Impacted cerumen, bilateral*; Risk and functional assessment; Dysuria; Memory loss; Fall, initial encounter; Type 2 diabetes mellitus with diabetic neuropathy, without long-term current use of insulin ([facility]); Lesion of face; Need for pneumococcal vaccination Allergies Active Allergy Reactions Criticality Noted Date Comments Tello Inhibitors 05/08/2021 Hyperkalemia resulting in 2 hospitalizations Metformin Diarrhea 11/05/2022 Nadolol Itching 03/17/1999 Corgard itchy Nitroglycerin Other (Please comment) 02/09/2011 Headache that is only relieved with Morphine. Nsaids Nausea/vomiting 03/17/1999 relafen documented as of this encounter (statuses as of 11/15/2023) Medications Medication Sig Dispensed Refills Start Date [...] by mouth in the morning. 1 Active OneTouch Verio w/Device KitIndications:D M type 2 with diabetic peripheral neuropathy (HCC) Use to check blood sugars daily as directed E11.9 1 Kit 1 Active OneTouch Verio In Vitro Strip (Glucose Blood)Indication s:DM [...] Oral Tablet (Coreg)Indicatio ns:Coronary artery disease involving [place] coronary artery of [place] heart without angina pectoris,HTN, goal below 140/90 [...] 4 Active Spironolactone 25 MG Oral Tablet (Aldactone)Indic ations:HTN, goal below 130/80,Chronic diastolic congestive heart failure (HCC),Persistent atrial fibrillation (HCC) Take 1 Tablet by mouth in the morning. 90 Tablet 3 4 Active Pregabalin 25 MG Oral Capsule (Lyrica)Indicati ons:Type 2 diabetes mellitus with diabetic neuropathy, without long-term current use of insulin (HCC) Take 1 Capsule by mouth in the morning and 1 Capsule before bedtime. 60 Capsule 1 4 Active Diclofenac Sodium 1 % External [...] 180 Tablet 3 3 11/08/19 24 Discontinued Linzess 145 MCG Oral Capsule (linaCLOtide)Ind ications:Constip [...] 180 Tablet 1 3 11/08/19 24 Discontinued Dicyclomine HCl 10 MG Oral Capsule (Bentyl)Indicati ons:Abdominal cramps Take 1 capsule by mouth twice per day as needed for abd pain. 60 Capsule 4 10/26/19 24 Discontinued(Med ication List Clean Up) documented as of this encounter (statuses as of 11/15/2023) Active Problems Problem Noted Date Diagnosed Date [...] cancer 11/06/2019 Coronary artery disease invo lving [place] coronary artery of [place] heart without angina pectoris 07/04/2019 Senile osteoporosis [...] as of this encounter (statuses as of 11/15/2023) Resolved Problems Problem Noted Date Diagnosed Date [...] 36.9 with serious comorbidity 11/17/2018 Atherosclerosis of [place] co ronary artery of [place] heart without angina pectoris 11/17/201806/2021 Arteriosclerotic dementia [...] as of this encounter (statuses as of 11/15/2023) Immunizations Name Administration Dates Next Due COVID-19 mRNA, LNP-s, No Pre serve, 2-Dose Series (Pfizer) 10/30/2020,10/09/2020 DT - Diptheria/Tetanus (PEDS) 04/13/2002 PPD 01/19/2018 Pneumococcal Conjugate Vacc, 13 Valent (Prevnar) 03/15/2018 Pneumococcal Conjugate Vacci ne, 20-valent ([id number]) 10/26/2023 Pneumococcal Conjugate Vacci ne, 7 Valent [...] Sign Reading Time Taken Comments Blood Pressure 138/70 10/26/2023 6:08 PM EDT Pulse 85 10/26/2023 6:08 PM EDT Temperature 36.2 C (97.1 F) 10/26/2023 6:08 PM ED T Respiratory Rate 18 10/26/2023 6:08 PM EDT Oxygen Saturation 97% 10/26/2023 6:08 PM EDT Inhaled Oxygen Concentration - - Weight 85.5 kg (188 lb 9.6 oz) 10/26/2023 6:08 P M EDT Height 177.8 cm (5' 10") 10/26/2023 6:08 PM EDT Body Mass Index 27.06 10/26/2023 6:08 PM EDT documented in this encounter Patient Instructions * Patient Instructions* Chandrika Edgar LPN - 10/26/2023 6:07 PM EDT Patient Instructions - Fall Prevention (This education is for all patients over 65 regardless of symptoms) Remember to take your current medications as prescribed. In order to prevent falls, you are encouraged to: Exercise Utilize assistive/adaptive devices Avoid multifocal lenses when walking Avoid hazards in home Maintain a regular toileting schedule Any questions please contact our office. Preventing Falls in the Home (This education is for all patients over 65 regardless of symptoms) As you get older, falls are more likely. Thats because your reaction time slows. Your muscles and joints may also get stiffer, making them less flexible. Illness, medications, and vision changes can also affect your balance. A fall could leave you unable to live on your own. To make your home safer, follow these tips: Floors Put nonskid pads under area rugs Remove throw rugs Replace worn floor coverings Tack carpets firmly to each step on carpeted stairs. Put nonskid strips on the edges of uncarpeted stairs Keep floors and stairs free of clutter and cords Arrange furniture so there are clear pathways Clean up any spills right away Bathrooms Install grab bars in the tub or shower Apply nonskid strips or put a nonskid rubber mat in the tub or shower Sit on a bath chair to bathe Use bathmats with nonskid backing Lighting Keep a flashlight in each room Put a nightlight along the pathway between the bedroom and the bathroom Appies Patient Education Copyright 2008 - 2010 [facility] except where otherwise noted Preventing Falls: Exercises to Improve Balance, Flexibility, Strength, and Staying Power (This education is for all patients over 65 regardless of symptoms) Certain types of exercises may help make you less likely to fall. Try the ones below. Or do other exercises that your healthcare provider suggests. Depending on your health, you may need to start slowly. Dont let that stop you. Even small amounts of exercise can help you. Be sure to talk to yourhealthcare provider before starting any exercise program. Improve Balance Many types of exercise can help improve balance. Lam chi and yoga are good examples. Heres another one to try. You can do it anytime and almost anywhere. Stand next to a counter or solid support. Push yourself up onto your tiptoes. Hold for 5 seconds. If you start to lose your balance, hold on to the counter. Rest and repeat 5 times. Work up to holding for 20 to 30 seconds, if you can. Increase Flexibility Being more flexible makes it easier for you to move around safely. Try exercises like the seated hamstring stretch. Sit in a chair and put one foot on a stool. Straighten your leg and reach with both hands down either side of your leg. Reach as far down your leg as you can. Hold for about 20 seconds. Go back to the starting position. Then repeat 5 times. Switch legs. Build Strength Resistance exercises help build strength. You can do them without equipment. Or you can use weights, elastic bands, or special machines. One such exercise is called the biceps curl. You can hold a 1 pound weight or even a can of soup. Do this exercise at least 3 times a week. Strive for everyday. Sit up straight in a chair. Keep your elbow close to your body and your wrist straight. Bend your arm, moving your hand up to your shoulder. Then slowly lower your arm. Repeat 5 times. Switch to the other arm. Build Your Staying Power Aerobic exercises make your heart and lungs stronger so you can keep moving longer. Walking and swimming are two of the best types of exercises you can do. Using a stationary bike is great, too. Find an aerobic exercise that you enjoy. Start slowly and build up. Even 5 minutes is helpful. Aimfor a goal of 30 minutes, at least 3 times a week. You dont have to do 30 minutes in one session. Break it up and walk a little throughout the day. More Helpful Tips Start easy. Slowly work up to doing more. Talk with your healthcare provider about the best exercises for you. Call senior centers or health clubs about exercise programs. If needed, have a family member watch you walk every so often to check your stability. Exercise with a friend. Choose an activity you both enjoy. Try exercises that you can do anytime, anywhere. Here are two examples. Have someone with you when you first try these: Practice walking by placing one foot right in front of the other. Stand up and sit down 10 times. Repeat this throughout the day. [employer] Patient Education Copyright 2009 - 2010 [employer] except where otherwise noted. Preventing Falls: Moving Safely Using a Cane or Walker (This education is for all patients over 65 regardless of symptoms) Keep the cane away from your feet so you dont trip. A walking aid, such as a cane or walker, can help you stay more independent and avoid falls. Remember to keep your walking aid within easy reach when youre in a chair or in bed. And learn how to use it safely so you dont injure yourself. Using a Cane If you have a stronger side, hold the cane on that side. Get your balance. Move the cane and your weaker leg forward. Support your weight on both the cane and your weaker side. Step with your stronger leg. Start again from step 1. If youre using a folding walker, be sure you know how to lock it open. Check that its locked open before each use. Using a Walker Roll the walker (or lift it, if youre using one without wheels) forward about 12 inches. Step forward with your weaker leg first. Use the walker to help keep your balance. Bring your other foot forward to the center of the walker. Start again from step 1. Helpful Tips Check with your healthcare provider about the right walking aid to use. Ask about a walker with a seat attached. Check the tips of your cane or walker to make sure they have nonskid covers. Move slowly from room to room. Dont chase. Sit down to get dressed. Use a juanis pack or backpack to keep your hands free. Get help for jobs that mean climbing, even on a stepstool. [employer] Patient Education Copyright 2008 - 2010 [employer] except where otherwise noted. Urinary Incontinence Plan of Care Documentation: (This education is for all patients over 65 regardless of symptoms) Current medications reconciled. Patient encouraged to: Practice kegal exercises Provide education materials Use the restroom every 2 hours throughout the day Limit caffeine, alcohol, spicy foods and acidic foods Keep a bladder diary Limit fluid intake 3-4 hours before bed Lose weight Prevent constipation Take fluid pills at a time when you can get to the bathroom quickly Control sugar better if diabetic Limit fluid intake to 60 oz. per day Wear support stockings (TEDs)if you have edema Chandrika Edgar LPN 10/26/2023 Kegel Exercises Kegel exercises dont require special clothing or equipment. Theyre easy to learn and simple to do. And if you do them right, no one can tell youre doing them, so they can be done almost anywhere. Your doctor, nurse, or physical therapist can answer any questions you have and help you get started. A Weak Pelvic Floor The pelvic floor muscles may weaken due to aging, and vaginal childbirth, injury, surgery, chronic cough, or lack of exercise. If the pelvic floor is weak, your bladder and other pelvic organs may sag out of place. The urethra may also open too easily and allow urine to leak out. Kegel exercises can help you strengthen your pelvic floor muscles so they can better support the pelvic organs and control urine flow. How Kegel Exercises Are Done Try each of the Kegel exercises described below. When youre doing them, try not to move your leg, buttock, or stomach muscles. While youre urinating, try to stop the flow of urine. Start and stop it as often as you can. Contract as if you were stopping your urine stream, but do it when youre not urinating. Tighten your rectum as if trying not to pass gas. Contract your anus, but dont move your buttocks. Helpful Hints Do your Kegels as often as you can. The more you do them, the faster youll feel the results. Pick an activity you do often as a reminder. For instance, do your Kegels every time you sit down. Tighten your pelvic floor before you sneeze, get up from a chair, cough, laugh, or lift. This protects your pelvic floor from injury and can help prevent urine leakage. Try to hold each Kegel for a slow count to five. You probably wont be able to hold them for thatlong at first, but keep practicing. It will get easier as your pelvic floor gets stronger. Eventually, special weights that you place in your vagina may be recommended to help make your Kegels even more effective. [employer] Patient Education Copyright 2008 - 2010 [employer] except where otherwise noted. Here are some helpful tips for your urinary incontinence: (This education is for all patients over 65 regardless of symptoms) Practice Kegel exercises Use the restroom every 2 hours throughout the day Limit caffeine, alcohol, spicy foods, and acidic foods Keep a bladder diary Limit fluid intake 3-4 hours before bed Lose weight Prevent constipation Take fluid pills at a time when can get to the bathroom quickly Control sugar better if diabetic Limit fluid intake to 60 oz. per day Any questions, please feel free to contact our office. documented in this encounter Progress Notes * Chandrika Edgar LPN - 10/26/2023 7:37 PM EDT Ear Irrigation Procedure: Irrigation Solution: Up to 200 ml of solution may be instilled with one Procedure Solution Used: Water 180 ml/ Hydrogen Peroxide 20 ml (Mixed) Ear(s) Irrigated: Bilateral Response: Patient Tolerated Well and small return from right ear, nothing from left ear. Stopped irrigation when patient reported discomfort Chandrika Edgar LPN * Derrek Sparks MD - 10/26/2023 6:33 PM EDT Subjective: Elmira Tavares is a 78 year old female here today for Chief Complaint Patient presents with Status Check Return in 6 months Ear Flush Here for check of several issues. She is concerned that she may need an ear flush for cerumen. Diabetic shoes - neuropathy. Burning pain, numbness Also having issues with constipation Bm every 3-4 days - hard ball Linzess caused to be too loose and leg swelling and expensive Colace causes stools that are too loose Pt concerned that memory has been progressively worsening. Reports increased gait instability and has had a fall. Past Medical History: Diagnosis Date Acute IN ([facility]) Myocardial Infarction Acute pain of right knee 02/12/2021 Noted in january of 2021 Historical Black tarry stools 01/25/2021 Noted in 2020 historical BMI 31.0-31.9,adult Cerebrovascular accident (CVA) ([facility]) 10/24/2021 Not current CVA Chronic ischemic heart disease Compression fracture of lumbar vertebra ([facility]) 11/10/2018 Diabetes mellitus with peripheral angiopathy ([facility]) Diarrhea 01/25/2021 Noted in December of 2020 Historical DM type 2, goal A1c below 7 Dyslipidemia, goal LDL below 100 06/06/2009 Essential hypertension with goal blood pressure less than 140/90 Generalized osteoarthritis Inflammatory polyarthropathy ([facility]) Iron deficiency anemia Irritable bowel syndrome Malignant neoplasm of female breast ([facility]) Breast, right, mastectomy with SLNB 10/25/2011 Methicillin resistant Staphylococcus aureus infection 10/24/2021 Mild sleep apnea Rheumatoid arthritis ([facility]) 12/28/2017 More specified Dx listed on PL Skin tear of right upper arm without complication 02/12/2021 Noted in 2020 Historical Subclinical hypothyroidism 09/24/2018 TSH 4.35/T4 1.25 Past Surgical History: Procedure Laterality Date ANESTH, TOTAL KNEE REPLACEMENT 09/21/1995 left ANGIOPLASTY RENAL/MESENTERIC,O 1991 COLONOSCOPY, DIAGNOSTIC (RECTUM) 03/22/2018 adenomatous & serrated adenomatous polyps, repeat 6 mo/COLONOSCOPY FLEXIBLE PROXIMAL DIAGNOSTICperformed by Martina Cancino MD at ENDOSCOPY [facility] COLONOSCOPY, DIAGNOSTIC (RECTUM) 09/26/2018 adenomatous polyp, repeat 1 yr/COLONOSCOPY FLEXIBLE PROXIMAL DIAGNOSTIC performed by Martina Cancino MD at ENDOSCOPY [facility] COLONOSCOPY, DIAGNOSTIC (RECTUM) 11/14/2020 benign adenomatous polyps, repeat 3 yrs / COLONOSCOPY FLEXIBLE PROXIMAL DIAGNOSTIC performed by Martina Cancino MD at ENDOSCOPY [facility] COLONOSCOPY, DIAGNOSTIC (RECTUM) 08/18/2022 prep-poor, stool in entire exam / normal scope / no specimens collected / COLONOSCOPY FLEXIBLE PROXIMAL DIAGNOSTIC performed by Mynor Alvarado MD at ENDOSCOPY [facility] ECHO, COMPLETE (2D), TRANS-THORACIC 11/02/2018 mild conc LVH with normal LV size and function EF 70%, grade I diastolic dysfunction EGD, FLEXIBLE, DIAGNOSTIC 05/16/2018 normal bx/ESOPHAGOGASTRODUODENOSCOPY (EGD), FLEXIBLE, TRANSORAL, DIAGNOSTIC performed by Leonora Liu MD at ENDOSCOPY [facility] LAPAROSCOPY, SURGICAL/REMOVE DUCTS 1979 MASTECTOMY, MODIFIED RADICAL 10/24/2010 10/24/2010 right mod. radicala mastectomy with SLNB - [facility] - DR. Gerber MISCELLANEOUS ORDER ([facility] ONLY) 2012 right shoulder replacement MISCELLANEOUS ORDER ([facility] ONLY) left TKR, redo MISCELLANEOUS ORDER ([facility] ONLY) left wrist surgery NECK/CHEST SUBQ TUMOR REMOVAL, 3 CM OR MORE Right 05/22/2014 EXCISION NECK/CHEST SUBQ TUMOR, 3 CM OR MORE performed by Ray Gerber MD at OR [facility] OTHER 03/2006 Right knee replacement OTHER 1998 cholecystectomy OTHER 1992 Angioplasty Harris REMOVE CATARACT, INSERT LENS PROSTH Right 03/26/2021 EXTRACAPSULAR CATARACT REMOVAL WITH INTRAOCULAR LENS performed by Doyle Heredia DO at [facility] REMOVE CATARACT, INSERT LENS PROSTH Left 03/11/2022 LEFT EXTRACAPSULAR CATARACT REMOVAL WITH INTRAOCULAR LENS performed by Doyle Heredia DO at [facility] REPAIR RUPTURED ROTATOR CUFF, ACUTE 06/2012 [facility] TREAT NOSE FX W/STABILIZATION N/A 09/15/2018 CLOSED TREATMENT NASAL FRACTURE WITH STABILIZATION performed by Marlon Rust DO at OR [facility] US GUIDED BREAST BIOPSY 09/30/2010 Review of patient's allergies indicates: Allergen Reactions Tello Inhibitors Hyperkalemia resulting in 2 hospitalizations Metformin Diarrhea Nadolol Itching Corgard itchy Nitroglycerin Other (Please comment) Headache that is only relieved with Morphine. Nsaids Nausea/vomiting relafen Current Outpatient Medications Medication Sig Dispense Refill ONETOUCH ULTRASOFT LANCETS [facility] Use to check blood sugars daily as directed E11.9 1 Box Dosing Unit11 Aspirin 81 MG Tablet Take 1 Tablet by mouth in the morning. Acetaminophen 500 MG Oral Capsule Take 1 Capsule by mouth every 4 hours as needed. Magnesium Hydroxide 400 MG/5ML Oral Suspension Take by mouth daily as needed for Constipation. Vitamin C 500 MG Oral Tablet (Ascorbic Acid) Take 1 Tablet by mouth in the morning. Iron (Ferrous Sulfate) 325 (65 Fe) MG Oral Tablet Take 1 Tablet by mouth in the morning. [employer] Verio w/Device Kit Use to check blood sugars daily as directed E11.9 1 Kit 0 OneTouch Verio In Vitro Strip (Glucose Blood) Use [...] 1 Capsule before bedtime. 60 Capsule 1 [employer] Cleansing Enema Rectal Enema Administer into the rectum daily as needed for Constipation. (Patient not taking: Reported on 10/26/2023) Warfarin Sodium 4 MG Oral Tablet (Jantoven) TAKE 1 TO 1& 1/2 TABLETS BY MOUTH EVERY DAY OR DIRECTED BY COUMADIN CLINIC 135 Tablet 1 cloNIDine HCl 0.1 MG Oral Tablet (Catapres) TAKE ONE TABLET BY MOUTH IN THE MORNING AND ONE BEFORE BEDTIME 180 Tablet 3 amLODIPine Besylate 5 MG Oral Tablet (Norvasc) TAKE 1 TABLET BY MOUTH TWICE DAILY EVERY MORNING ANDBEFORE BEDTIME 180 Tablet 1 No current facility-administered medications for this visit. Objective: BP 138/70 | Pulse 85 | Temp 36.2 C (97.1 F) (Temporal Artery) | Resp 18 | Ht 1.778 m(5' 10") | Wt 85.5 kg (188 lb 9.6 oz) | SpO2 97% | BMI 27.06 kg/m | BSA 2.05 m GEN: NAD HEENT: cerumen impactions bilat NECK: Supple with no LAD, TM, JVD CHEST: CTA B CV: RRR ABD: Soft, NT/ND, No HSM, NABS EXT: No c,c,e Assessment and Plan: Impacted cerumen, bilateral (Primary) - REMOVAL IMPACTED CERUMEN IRRIGATION/LAVAGE, UNILAT Risk and functional assessment Dysuria - URINALYSIS, POINT OF CARE (ENTER/EDIT) - CULTURE, URINE, QUANTITATIVE Memory loss - MRI BRAIN WITHOUT CONTRAST; Future; Expected date: 10/26/2023 Fall, initial encounter - MRI BRAIN WITHOUT CONTRAST; Future; Expected date: 10/26/2023 Type 2 diabetes mellitus with diabetic neuropathy, without long-term current use of insulin (HCC) - Pregabalin 25 MG Oral Capsule (Lyrica); Take 1 Capsule by mouth in the morning and 1 Capsule before bedtime. - HEMOGLOBIN A1C; Future; Expected date: 10/26/2023 Lesion of face - DERMATOLOGY REFERRAL OP Need for pneumococcal vaccination - PNEUMOCOCCAL VACC, PCV20, IM ([id number]) Follow Up: Return in about 6 months (around 04/26/2024) for recheck. | For: recheck | Check-out note: Derm MRI Brain 44 min with pt and chart review. Derrek Sparks MD documented in this encounter Nursing Notes * Chandrika Edgar LPN - 10/26/2023 6:08 PM EDT The patient has been properly identified by confirmation of name and date of . Chief Complaint Patient presents with Status Check Return in 6 months Patient has valsartan 160 mg, dicyclomine 10 mg, and diclofenac 1% gel on her medication list. Is not currently taking these medications and questions if she is suppose to. Does not have any of the medication at home. Stopped taking Linzess- caused diarrhea and swelling in feet. Has ringing in her ears, can't hear and feels like there is something rolling around Head feels like she has fluid in it swishing around Increased forgetfulness Open area on her chin for months that won't heal Increased urinary incontinence- states she is having some burning/pain with urination, has to strain to urinate which has caused her to vomit at times. Abdominal pain- goes 4-5 days without a bowel movement, stool softner caused diarrhea documented in this encounter Plan of Treatment Upcoming Encounters Date Type Department Care Team (Late st Contact Info) Description 11/26/2023 11:15 AM EDT Imaging Radiology [facility] [address] [facility] [place] [id number] 12/03/2023 10:50 AM EDT [facility] [place] [address] [facility] [address] [place], [facility] [address] [facility] [place] [address] 12/08/2023 10:40 AM EDT Office Visit [place]ology [address] [place] [address] Arnav Damon MD [address] [facility] [place] [address] 03/24/2024 9:30 AM EDT Office Visit Cardiology, [facility] [address] [facility] [place] [address] Corrine Quinn, ANIA 132 [facility] [place] [address] 05/11/2024 10:15 AM EST Office Visit Ophthalmology, [facility] 132 [facility] [place] [address] Doyle Heredia, DO [facility] [address] 05/18/2024 10:40 AM EST Office Visit [place] [address] [place] [address] Derrek Sparks MD [address] [place] [address] 05/18/2024 1:00 PM EST Office Visit Dermatology, [address] [address] Sully Kearns, PAAmita [address] [place] [address] [place] [address] Scheduled Orders Name Type Priority Associated Diagnoses Orde r Schedule MRI BRAIN WITHOUT CONTRAST Medical Imaging Routine Memory loss Fall, initial encounter Expected: 10/26/2023, Expires: 11/24/2024 REMOVAL IMPACTED CERUMEN IRRIGATION/LAVAGE, UNILAT Procedures Routine Impacted cerumen, bilateral Ordered: 10/26/2023 Scheduled Referrals Name Type Priority Associated Diagnoses Orde r Schedule DERMATOLOGY REFERRAL OP Referral Within 30 days (routine) Lesion of face Ordered: 10/26/2023 Health Maintenance Due Date Last Done Comments Zoster Vaccines (2 of 3) 03/11/2016 01/15/2016 COVID-19 Vaccine ( season) 2023 10/30/2020, 10/09/2020 Diabetic Foot Exam 07/07/2023 07/07/2022, 0 10/22/2020, 07/04/2019, Additional history exists Diabetic Eye Exam 04/29/2024 04/29/2023, , 04/29/2023, Additional history exists HbA1c 04/30/2024 10/29/2023, 0 10/2022, 01/07/2023, Additional history exists DXA Scan 05/03/2024 05/03/2023, 0 11/2022, 04/29/2021, Additional history exists Albumin/Creatinine Ratio [...] D LEVEL ONCE IN A LIFETIME-USE SMARTSET# [id number] Completed 06/22/2023, 06/01/2023, 01/07/2023, Additional history exists [...] this encounter Medical Devices Implanted Type Area Utility Worker [place] Device Identifier Shelf Expiration Date Model / Serial / Lot Clip Quick 2.8mm 230cm - [id number] Implanted:Qty: 4 on 11/14/2020 by Martina Cancino MD at ENDOSCOPY [facility] [employer] 06/27/2023 [id number]-202UR.A / / Lens 19.5 [id number] - [id number] - [id number] Implanted:Qty: 1 on 03/26/2021 by Doyle Heredia DO at OR [facility] Right: Eye BRII : SURGICAL 10/29/2025 [id number] / [id number] / Lens 19.5 [id number] - [id number] - [id number] Implanted:Qty: 1 on 03/11/2022 by Doyle Heredia DO at OR [facility] Left: Eye BRII : SURGICAL 10/29/2025 [id number] / [id number] / documented as of this encounter Procedures Procedure Name Priority Date/Time Associated Diagnosis Comments CULTURE, URINE, QUANTITATIVE Routine 10/26/2023 6:38 PM EDT Dysuria URINALYSIS, POINT OF CARE (ENTER/EDIT) Routine 10/26/2023 Dysuria documented in this encounter Results * (ABNORMAL) HEMOGLOBIN A1C (10/29/2023 10:59 AM EDT) Hemoglobin A1C 9.0(H) 4.0 - 5.6 % 10/29/2023 5:19 PM EDT [facility] Comment:The use of HbA1c to monitor glycemic status is based on normal hemoglobin and HbA composition. This test should not be used in patients with abnormal hemoglobin that affects the half life of the red blood cell or the in vivo glycation rates. Estimated Average Glucose 212(H) <126 mg/dL 10/29/2023 5:19 PM EDT [facility] Blood Venous blood specimen / Unknown Venipuncture / Unknown 10/29/2023 10:59 AM EDT 10/29/2023 10:59 AM EDT Derrek Sparks MD LAB BLOOD ORDERABL ES Performing Organization Address [facility]/ZIP Co de Phone Number [facility] [address] [place] [address] * (ABNORMAL) CULTURE, URINE, QUANTITATIVE (10/26/2023 6:38 PM EDT) Pathologist [facility] Culture Growth 10,000 to 100,000 colonies/mL Escherichia coli(A) MICROBROTH DILUTIONS 10/30/2023 8:41 AM EDT [facility] Urine Urine specimen obtained by clean catch procedure / Unknown Non-blood Collection / Unknown 10/26/2023 6:38 PM EDT 10/26/2023 6:38 PM EDT Narrative [facility] - 10/30/2023 8:41 AM EDT <10,000 colonies/ml mixed normal john Organism Antibiotic Method Susceptibility Escherichia coli Ampicillin MICROBROTH DILUTIONS <=2: Susceptible Escherichia coli Cefazolin MICROBROTH DILUTIONS <=4: Susceptible Escherichia coli Cefepime MICROBROTH DILUTIONS <=1: Susceptible Escherichia coli Ceftriaxone MICROBROTH DILUTIONS <=1: Susceptible Escherichia coli Ciprofloxacin MICROBROTH DILUTIONS <=0.25: Susceptible Comment:Due to jany us side effects, the FDA has advised against using Ciprofloxacin to treat uncomplicated UTIs and respiratory tract infections unless there are no alternative treatment options. Escherichia coli Gentamicin MICROBROTH DILUTIONS <=1: Susceptible Escherichia coli Nitrofurantoin MICROBROTH DILUTIONS <=16: Susceptible Escherichia coli Piperacillin Tazobactam MICROBROTH DI LUTIONS <=4: Susceptible Escherichia coli Trimeth/Sulfamethoxazole MICROBROTH D ILUTIONS <=20: Susceptible Derrek Sparks MD LAB MICRO - GENERA L ORDERABLES Performing Organization Address [facility]/ZIP Co de Phone Number [facility] [address] [place] [address] * URINALYSIS, POINT OF CARE (ENTER/EDIT) (10/26/2023) Color, Urine Yellow Yellow or Light Yellow Clarity, Urine Clear Clear Glucose, Urine 100 Negative mg/dL Bilirubin, Urine Negative Negative Ketone, Urine Negative Negative mg/dL Specific [place], Urine 1.015 1.003 - 1.030 Blood, Urine Negative Negative pH, Urine 5.5 5.0 - 7.5 units Protein, Urine 30 Negative mg/dL Urobilinogen, Urine 0.2 0.2 - 1.0 mg/dL Nitrite, Urine Negative Negative Esterase, Urine Small Negative Urine 10/26/2023 Derrek Sparks MD LAB POINT OF CARE TEST ENTER/EDIT ORDERABLES documented in this encounter Visit Diagnoses Diagnosis Impacted cerumen, bilateral- Primary Risk and functional assessment Screening for unspecified condition Dysuria Memory loss Fall, initial encounter Type 2 diabetes mellitus with diabetic neuropathy, without long-term current use of insulin (HCC) Lesion of face Need for pneumococcal vaccination Need for prophylactic vaccination against streptococcus pneumoniae (pneumococcus) documented in this encounter Advance Directives * Full Code (Latest Code Status on File) Date Activated Date Inactivated Comments 03/11/2022 7:56 AM 03/11/2022 2:41 PM Question Answer Comments Discussion of Advance Direct donnie occurred with: Not Discussed due to patient's condition Care Teams Aeronautical Engineering Professor Relationship Specialty Start Date End Date Derrek Sparks MD [address] [place] [address] PCP - General Family Medicine 08/04/22 documented as of this encounter
--- OUTSIDE RECORDS SUMMARY | 2024-01-06 14:22 | External Medical Summary | Summary of Care ---
Author Name Unknown Organization [facility] Address [address] [place] [address] Phone [phone] Care Team Providers Care Traveling Plant Operator Name Role Phone Derrek Sparks MD Primary Care Provider [phone] Reason for Visit * Reason Onset Date Comments Order Request 12/01/2023 Vit D / prolia Encounter Details Date Type Department Care Team (Late st Contact Info) Description 12/01/2023 Telephone [address] [place] [address] Arnav Damon MD [address] [place] [address] [place] [address] Order Request (Vit D / [...] by mouth in the morning. 07/22/2020 Active [employer] Verio w/Device KitIndications:DM type 2 with diabetic peripheral neuropathy (HCC) Use to check blood sugars daily as directed E11.9 1 Kit 10/10/2020 Active [email or web address] In Vitro Strip (Glucose Blood)Indications: DM type [...] Oral Tablet (Coreg)Indications :Coronary artery disease involving [place] coronary artery of [place] heart without angina pectoris,HTN, goal below 140/90 [...] Diagnosed Date Food insecurity 11/08/2023 Overview: Per [facility] Protocol Hypertensive heart disease w [...] cancer 11/06/2019 Coronary artery disease invo lving [place] coronary artery of [place] heart without angina pectoris 07/04/2019 Senile osteoporosis 05/15/2019 Nontoxic uninodular goiter 11/17/2018 Gastroesophageal reflux disease without esophagi tis 11/01/2018 Rheumatoid arthritis 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 03/24/2018 HTN, goal below 140/90 03/24/2018 Old KS (myocardial infarction) 03/24/2018 Type 2 diabetes mellitus [...] negative rheumatoid factor 07/04/2019 09/27/19 22 Old [place] (myocardial infarction) 07/04/2019 09/26/2021 Major depression single epis ode, in partial remission 03/23/2019 08/26/2023 Severe obesity with body mas s index (BMI) of 36.0 to 36.9 with serious comorbidity 11/17/2018 Atherosclerosis of [place] co ronary artery of [place] heart without angina pectoris 11/17/201806/2021 Arteriosclerotic dementia wi th depressive features 11/17/2018 12/16/2018 Compression fracture of lumbar vertebra 11/10/2018 11/07/2021 Iron deficiency anemia 05/26/201812/16 Colorectal polyps 04/22/2018 09/12/2018 Rheumatoid arthritis 12/28/2017 023 Overview: More specified Dx listed on PL Acute KS 11/19/2017 11/19/2017 Inflammatory polyarthropathy 11/19/2017 12/16/2018 Loosening [...] (Prevnar) 03/15/2018 Pneumococcal Conjugate Vacci ne, 20-valent ([id number]) 10/26/2023 Pneumococcal Conjugate Vacci ne, 7 Valent [...] encounter Miscellaneous Notes * Telephone Encounter - Ad Pittman OSA - 12/02/2023 8:36 AM EDT [facility] - Patient Related Communication Reason for Call: [...] Description 12/03/2023 10:50 AM EDT [facility], [place] [address] [facility] [address] [place] [address] [facility] [address] 12/08/2023 10:40 AM EDT Office Visit Rheumatology [address] [place] [address] Arnav Damon MD [address] [place] [address] [place] [address] 03/24/2024 9:30 AM EDT Office Visit Cardiology, [facility] 132 [facility] [place] [address] Corrine Quinn PA-C [facility] [address] 05/11/2024 10:15 AM EST Office Visit Ophthalmology, [facility] 132 [facility] [place] [address] Doyle Heredia, 21 [facility] [place] [address] 05/18/2024 10:40 AM EST Office Visit [facility], [place] [address] [facility] [phone] Derrek Sparks [facility] [address] [facility] [address] 05/18/2024 1:00 PM EST Office Visit Dermatology, [place] [address] [place] [facility] [place] [address] Sully Kearns PA-C [address] [place] [address] [place] [address] Scheduled Orders Name Type Priority Associated Diagnoses [...] D LEVEL ONCE IN A LIFETIME-USE SMARTSET# [id number] Completed 06/22/2023, 06/01/2023, 01/07/2023, Additional history exists [...] this encounter Medical Devices Implanted Type Area Molecular Geneticist Device Identifier Shelf Expiration Date Model / Serial / Lot Lead- Implanted:Qt y: 1 on 01/26/[address] DO Lead Back 1295.04 07/28/2025 [id number] / / Description:Implanted at [facility] [facility]-01/26/2023 Implanted: by Rashaad Street DO (Quantity not on file) Neurostimulator 1295.04 10/25/2025 [id number] / [id number] / Description:Nikita Cole Impl anted at [facility] Clip Quick 2.8mm 230cm - [id number] Implanted:Qt y: 4 on 11/14/2020 by Martina Cancino MD at ENDOSCOPY [facility] [employer] 06/27/2023 HX-202UR. A / / Lens 19.5 [id number] - [id number] - [id number] Implanted:Qt y: 1 on 03/26/2021 by Doyle Heredia DO at OR [facility] Right: Eye BRII : SURGICAL 10/29/2025 [id number] / [id number] / Lens 19.5 [id number] - [id number] - [id number] Implanted:Qt y: 1 on 03/11/2022 by Doyle Heredia DO at OR [facility] Left: Eye BRII : SURGICAL 10/29/2025 [id number] / [id number] / documented as of this encounter Visit Diagnoses Diagnosis Senile osteoporosis- Primary documented in this encounter Advance Directives * Full Code (Latest Code Status on File) Date Activated Date Inactivated Comments 03/11/2022 7:56 AM 03/11/2022 2:41 PM Question Answer Comments Discussion of Advance Direct donnie occurred with: Not Discussed due to patient's condition Care Teams Traveling Plant Operator Relationship Specialty Start Date End Date Derrek Sparks MD [address] [place] [address] PCP - General Family Medicine 08/04/22 documented as of this encounter
--- OUTSIDE RECORDS SUMMARY | 2024-01-06 14:22 | External Medical Summary ---
Author Name Unknown Address Unknown Organization : Laboratory Report Ordering Provider Test Date Status ILIA CHAVEZ 12/03/2023 10:55:22 Final Therapeutic ranges for non-o perative patients:
Prophylaxsis/treatment of DVT: (Range:2.0-3.0)
Treatment of pulmonary embolism:(Range:2.0-3.0)
Prevention of systemic embolism from:
-tissue heart valves
-acute myocardial infarction
-valvular heart disease
-atrial fibrillation
(Range: 2.0-3.0)
Mechanical prosthetic valves: (Range: 2.5-3.5) Observation Date Value Abnormality Reference (Units ) Status INR in Capillary blood by Coagulation assay 12/03/2023 10:55:22 1.5 (INR) Final Performing Location
--- OUTSIDE RECORDS SUMMARY | 2024-01-06 14:23 | External Medical Summary | Summary of Care ---
Author Name Unknown Organization [facility] Address [address] [place] [address] Phone [phone] Care Team Providers Care International Trade Analyst Name Role Phone Derrek Sparks MD Primary Care Provider [phone]- [phone] Reason for Visit * Reason Onset Date Comments Appointment 10/27/2023 MRI BRAIN WITHOU T CONTRAST Encounter Details Date Type Department Care Team (Late st Contact Info) Description 10/27/2023 Telephone [facility] [address] [place] [address] Derrek Sparks MD [address] [place] [address] Appointment (MRI BRAIN WITHOUT CONTRAST) Allergies Active Allergy Reactions Criticality Noted Date Comments Tello Inhibitors 05/08/2021 Hyperkalemia resulting in 2 hospitalizations Metformin Diarrhea 11/05/2022 Nadolol Itching 03/17/1999 Corgard itchy Nitroglycerin Other (Please comment) 02/09/2011 Headache that is only relieved with Morphine. Nsaids Nausea/vomiting 03/17/1999 relafen documented as of this encounter (statuses as of 10/28/2023) Medications Medication Sig Dispensed Refills Start Date End Date Status ONETOUCH ULTRASOFT LANCETS MISCIndications:DM type 2 with diabetic peripheral neuropathy (HCC) Use to check blood sugars daily as directed E11.9 1 Box Dosing Unit 11 12/16/2018 Active Aspirin 81 MG TabletIndications: in am Take 1 Tablet by mouth in the morning. 0 Active Acetaminophen 500 MG Oral Capsule Take 1 Capsule by mouth every 4 hours as needed. 0 Active [employer] Cleansing Enema Rectal Enema Administer into the rectum daily as needed for Constipation. 0 Active Magnesium Hydroxide 400 MG/5ML Oral Suspension Take by mouth daily as needed for Constipation. 0 Active Vitamin C 500 MG Oral Tablet (Ascorbic Acid) Take 1 Tablet by mouth in the morning. 0 Active Iron (Ferrous Sulfate) 325 (65 Fe) MG Oral TabletIndications: 1 tablet in am Take 1 Tablet by mouth in the morning. 0 07/22/2020 Active [employer] Verio w/Device KitIndications:DM type 2 with diabetic peripheral neuropathy (HCC) Use to check blood sugars daily as directed E11.9 1 Kit 0 10/10/2020 Active [employer] Beauty Care Pvt LtdToServiceMax Verio In Vitro Strip (Glucose Blood)Indications: DM type 2 with diabetic peripheral neuropathy (HCC) Use to check blood sugars twice daily as directed Dx E11.9 200 Strip 3 10/10/2020 Active Cholecalciferol 50 MCG (2000 UT) Oral Capsule DAILY 0 03/27/2022 Active cloNIDine HCl 0.1 MG Oral Tablet (Catapres)Indicati ons:HTN, goal below 140/80 TAKE 1 TABLET BY MOUTH IN THE MORNING AND 1 TABLET BEFORE BEDTIME. 180 Tablet 3 10/26/2022 Active Sertraline HCl 25 MG Oral Tablet (Zoloft)Indication s:in am Take 1 tablet by mouth daily. 90 Tablet 3 01/02/2023 Active Atorvastatin Calcium 80 MG Oral Tablet (Lipitor) Take 1 Tablet by mouth in the morning. 100 Tablet 3 01/07/2023 Active Carvedilol 25 MG Oral Tablet (Coreg)Indications :Coronary artery disease involving [place] coronary artery of [place] heart without angina pectoris,HTN, goal below 140/90 [...] the morning. 90 Tablet 3 07/02/2023 Active Warfarin Sodium 4 MG Oral Tablet (Jantoven) TAKE 1 TO 1& 1/2 TABLETS BY MOUTH EVERY DAY OR DIRECTED BY COUMADIN CLINIC 135 Tablet 1 07/21/2023 Active Terazosin HCl 2 MG Oral CapsuleIndications [...] before bedtime. 60 Capsule 1 10/26/2023 Active documented as of this encounter (statuses as of 10/28/2023) Active Problems Problem Noted Date Diagnosed Date Hypertensive heart disease w ith chronic [...] of feces 01/25/2021 Longstanding persistent atrial fibrillation /10/2019 Postprocedural seroma of a m usculoskeletal structure following a musculoskeletal system procedure 02/21/2020 Hypothyroidism, unspecified 02/21/2020 Hemiplegia and hemiparesis f ollowing cerebral infarction affecting left non-dominant side 02/21/2020 History of breast cancer 11/06/2019 Coronary artery disease invo lving [place] coronary artery of [place] heart without angina pectoris 07/04/2019 Senile osteoporosis 05/15/2019 Nontoxic uninodular goiter 11/17/2018 Gastroesophageal reflux disease without esophagi tis 11/01/2018 Rheumatoid arthritis 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 03/24/2018 HTN, goal below 140/90 03/24/2018 Old [place] (myocardial infarction) 03/24/2018 Type 2 diabetes mellitus [...] as of this encounter (statuses as of 10/28/2023) Resolved Problems Problem Noted Date Diagnosed Date [...] negative rheumatoid factor 07/04/2019 09/27/19 22 Old [place] (myocardial infarction) 07/04/2019 09/26/2021 Major depression single epis ode, in partial remission 03/23/2019 08/26/2023 Severe obesity with body mas s index (BMI) of 36.0 to 36.9 with serious comorbidity 11/17/2018 Atherosclerosis of [place] co ronary artery of [place] heart without angina pectoris 11/17/201806/2021 Arteriosclerotic dementia wi th depressive features 11/17/2018 12/16/2018 Compression fracture of lumbar vertebra 11/10/2018 11/07/2021 Iron deficiency anemia 05/26/201812/16 Colorectal polyps 04/22/2018 09/12/2018 Rheumatoid arthritis 12/28/2017 023 Overview: More specified Dx listed on PL Acute NV 11/19/2017 11/19/2017 Inflammatory polyarthropathy 11/19/2017 12/16/2018 Loosening [...] as of this encounter (statuses as of 10/28/2023) Immunizations Name Administration Dates Next Due COVID-19 mRNA, LNP-s, No Pre serve, 2-Dose Series (Pfizer) 10/30/2020,10/09/2020 DT - Diptheria/Tetanus (PEDS) 04/13/2002 Diptheria/Tetanus (Adult) 06/28/1989 PPD 01/19/2018 Pneumococcal Conjugate Vacc, 13 Valent (Prevnar) 03/15/2018 Pneumococcal Conjugate Vacci ne, 20-valent ([id number]) 10/26/2023 Pneumococcal Conjugate Vacci ne, 7 Valent [...] encounter Miscellaneous Notes * Telephone Encounter - Yessy Morel OSA - 10/28/2023 1:29 PM EDT Stimulator Info Model#[id number] Model # for leads? 2 lead plant [id number] Name of stimulator- [place] where it was placed- [place] when it was placed- 09/26/22 Dr that placed it- Can she charge the remote and put it in MRI mode- No, she only knows how to charge it. * Telephone Encounter - Sully Terry OSA - 10/27/2023 8:15 AM EDT Please call patient to schedule MRI BRAIN WITHOUT CONTRAST as patient has a stimulator in her back. Thank you. documented in this encounter Plan of Treatment Upcoming Encounters Date Type Department Care Team (Late st Contact Info) Description 10/29/2023 10:50 AM EDT Anticoagulation Pharmacy, [place] [address] [place] [address] [facility] [address] [place] [address] 12/08/2023 10:40 AM EDT Office Visit Rheumatology [place] [phone] [place] [address] Anrav Damon MD [address] [place] [address] 03/24/2024 9:30 AM EDT Office Visit Cardiology, [facility] 132 [facility] [place] [address] Corrine Quinn PA-C 132 [facility] [place] [address] 05/11/2024 10:15 AM EST Office Visit Ophthalmology, [facility] 132 [facility] [place] [address] Doyle Heredia, DO 21 [facility] [place] [address] 05/18/2024 10:40 AM EST Office Visit Family [facility] [address] [place] [phone] Derrek Sparks MD [address] [place] [address] 05/18/2024 1:00 PM EST Office Visit Dermatology, [place] [address] [place] [address] Sully Kearns PA-C [address] [place] [address] [place] [address] Health Maintenance Due Date Last Done Comments Zoster Vaccines (2 of 3) 03/11/2016 01/15/2016 COVID-19 Vaccine (3 - 2022- season) 2023 10/30/2020, 10/09/2020 *NEPHROLOGY REFERRAL DUE TO RESISTANT HTN 05/10/2023 Diabetic Foot Exam 07/07/2023 07/07/2022, 0 10/22/2020, 07/04/2019, Additional history exists HbA1c 12/01/2023 06/01/2023, 12/26, 08/10/2022, Additional history exists Diabetic Eye Exam 04/29/2024 04/29/2023, , 04/29/2023, Additional history exists DXA Scan 05/03/2024 05/03/2023, [...] D LEVEL ONCE IN A LIFETIME-USE SMARTSET# [id number] Completed 06/22/2023, 06/01/2023, 01/07/2023, Additional history exists [...] this encounter Medical Devices Implanted Type Area [place] Device Identifier Shelf Expiration Date Model / Serial / Lot Clip Quick 2.8mm 230cm - [id number] Implanted:Qty: 4 on 11/14/2020 by Martina Cancino MD at ENDOSCOPY [facility] [employer] 06/27/2023 HX-202UR.A / / Lens 19.5 [id number] - [id number] - [id number] Implanted:Qty: 1 on 03/26/2021 by Doyle Heredia, at OR [facility] Right: Eye BRII : SURGICAL 10/29/2025 [id number] / [id number] / Lens 19.5 [id number] - [id number] - [id number] Implanted:Qty: 1 on 03/11/2022 by Doyle Heredia, at OR [facility] Left: Eye BRII : SURGICAL 10/29/2025 [id number] / [id number] / documented as of this encounter Advance Directives Latest Code Status on File Code Status Date Activated Date Inactivated Comments Full Code 03/11/2022 7:56 AM 03/11/2022 2:41 PM Question Answer Comments Discussion of Advance Directives occurred with: Not Discussed due to patient's condition Care Teams International Trade Analyst Relationship Specialty Start Date End Date Derrek Sparks MD [address] [place] [address] PCP - General Family Medicine 08/04/22 documented as of this encounter
--- OUTSIDE RECORDS SUMMARY | 2024-01-06 14:23 | External Medical Summary ---
Author Name Unknown Address Unknown Organization K01:LABORATORY [facility] - [address] [place] [address] Laboratory Report Ordering Provider Test Date Status KATHYWILLIAMAayush 10/29/2023 10:59:45 Final Warfarin Therapy
INR: 2 .0-3.0 conventional anticoagulation
INR: 2.5- 3.5 high intensity anticoagulation Observation Date Value Abnormality Reference (Units ) Status PT 10/29/2023 10:59:45 21.5 Above high normal 11 .6-15.2 (seconds) Final INR 10/29/2023 10:59:45 1.9 Above high normal 0. 8-1.2 Final Performing Location LAB[facility]ATORY [facility] - [address] [place] [address]
--- OUTSIDE RECORDS SUMMARY | 2024-01-06 14:23 | External Medical Summary ---
Author Name Unknown Address Unknown Organization K01:LAB[facility]ORY [facility] [place] - [address] [facility] [place] [address] Laboratory Report Ordering Provider Test Date Status TONY ELY 10/19/2023 08:00:01 Final Observation Date Value Abnormality Reference (Units ) Status Triglyceride 10/19/2023 08:00:01 120 <=174 ( mg/dL) Final Triglyceride Reference Range s (mg/dL):
<150 Acceptable
150-174 Borderline high
175-499 High
>=500 Very high Cholesterol 10/19/2023 08:00:01 127 <200 (mg /dL) Final Total Cholesterol Reference Ranges (mg/dL):
<200 Desirable
200-239 Borderline high
>=240 High HDL 10/19/2023 08:00:01 49 Below low normal >49 (mg/dL) Final HDL Cholesterol Reference Ra nges (mg/dL):
>=60 High (Desirable)
<50 Low (Undesirable) For Females
<40 Low (Undesirable) For Males NON-HDL CHOLESTEROL 10/19/2023 08:00:01 78 <=159 (mg/dL) Final Non-HDL Cholesterol Referenc e Range (mg/dL):
<100 Target level for high risk ASCVD patient
<130 Optimal for general population
130-159 Near optimal for general population
160-189 Borderline High
190-219 High
>=220 Very High LDL, (calculated) 10/19/2023 08:00:01 54 <= 129 (mg/dL) Final LDL Cholesterol Reference Ra nges (mg/dL):
<70 Target level for high risk ASCVD patient
<100 Optimal for general population
100-129 Near optimal for general population
130-159 Borderline high
160-189 High
>=190 Very high Performing Location LAB[facility]ATORY [facility] [place] - [address] [facility] [address]
--- OUTSIDE RECORDS SUMMARY | 2024-01-06 14:23 | External Medical Summary ---
Author Name Unknown Address Unknown Organization K01:LABORATORY [facility] [place] - [address] [facility] [address] Laboratory Report Ordering Provider Test Date Status TRICIA MCCARTHY 10/29/2023 10:59:45 Final Observation Date Value Abnormality Reference (Units ) Status HbA1C 10/29/2023 10:59:45 9.0 Above high normal 4. 0-5.6 (%) Final The use of HbA1c to monitor glycemic status is based on normal hemoglobin and HbA composition. This test should not be used in patients with abnormal hemoglobin that affects the half life of the red blood cell or the in vivo glycation rates. Glucose, estimated average 10/29/2023 10:59:45 212 Above high normal <126 (mg/dL) José asher Performing Location LABORATORY [facility] [place] - [address] [facility] [address]
--- OUTSIDE RECORDS SUMMARY | 2024-01-06 14:23 | External Medical Summary | Summary of Care ---
Author Name Unknown Organization [facility] Address [address] [place] [address] Phone [phone] Care Team Providers Care Blood Donor Recruiter Supervisor Name Role Phone Fabio Clarke MD Primary Care Provider [phone]- [phone] Reason for Visit * Reason Comments eRx-Medication Refill Encounter Details Date Type Department Care Team (Late st Contact Info) Description 11/06/2023 Refill [facility] [address] [place] [address] Celia Goddard MD [address] [place] [address] Resistant hypertension; HTN, goal below 140/90; Longstanding persistent atrial fibrillation (HCC); Atherosclerosis of aorta (HCC) Allergies Active Allergy Reactions Criticality Noted Date Comments Tello Inhibitors 05/08/2021 Hyperkalemia resulting in 2 hospitalizations Metformin Diarrhea 11/05/2022 Nadolol Itching 03/17/1999 Corgard itchy Nitroglycerin Other (Please comment) 02/09/2011 Headache that is only relieved with Morphine. Nsaids Nausea/vomiting 03/17/1999 relafen documented as of this encounter (statuses as of 11/08/2023) Medications Medication Sig Dispensed Refills Start Date [...] Tablet by mouth in the morning. 0 1 Active [employer] Verio w/Device KitIndications:DM type 2 with diabetic peripheral neuropathy (HCC) Use to check blood sugars daily as directed E11.9 1 Kit 0 1 Active [employer] Verio In Vitro Strip (Glucose Blood)Indications :DM type 2 with diabetic peripheral neuropathy (HCC) Use to check blood sugars twice daily as directed Dx E11.9 200 Strip 3 1 Active Cholecalciferol 50 MCG (2000 UT) Oral Capsule DAILY 0 2 Active Sertraline HCl 25 MG Oral Tablet (Zoloft)Indicatio ns:in am Take 1 tablet by mouth daily. 90 Tablet 3 3 Active Atorvastatin Calcium 80 MG Oral Tablet (Lipitor) Take 1 Tablet by mouth in the morning. 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 180 Tablet 1 3 11/08/19 24 Discontinued documented as of this encounter (statuses as of 11/08/2023) Active Problems Problem Noted Date Diagnosed Date [...] cancer 11/06/2019 Coronary artery disease invo lving robinson coronary artery of robinson heart without angina pectoris 07/04/2019 Senile osteoporosis 05/15/2019 Nontoxic uninodular goiter 11/17/2018 Gastroesophageal reflux disease without esophagi tis 11/01/2018 Rheumatoid arthritis 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 03/24/2018 HTN, goal below 140/90 03/24/2018 Old [place] (myocardial infarction) 03/24/2018 Type 2 diabetes mellitus [...] as of this encounter (statuses as of 11/08/2023) Resolved Problems Problem Noted Date Diagnosed Date [...] negative rheumatoid factor 07/04/2019 09/27/19 22 Old [place] (myocardial infarction) 07/04/2019 09/26/2021 Major depression single epis ode, in partial remission 03/23/2019 08/26/2023 Severe obesity with body mas s index (BMI) of 36.0 to 36.9 with serious comorbidity 11/17/2018 Atherosclerosis of robinson co ronary artery of robinson heart without angina pectoris 11/17/201806/2021 Arteriosclerotic dementia wi th depressive features 11/17/2018 12/16/2018 Compression fracture of lumbar vertebra 11/10/2018 11/07/2021 Iron deficiency anemia 05/26/201812/16 Colorectal polyps 04/22/2018 09/12/2018 Rheumatoid arthritis 12/28/2017 023 Overview: More specified Dx listed on PL Acute OK 11/19/2017 11/19/2017 Inflammatory polyarthropathy 11/19/2017 12/16/2018 Loosening [...] as of this encounter (statuses as of 11/08/2023) Immunizations Name Administration Dates Next Due COVID-19 mRNA, LNP-s, No Pre serve, 2-Dose Series (Pfizer) 10/30/2020,10/09/2020 DT - Diptheria/Tetanus (PEDS) 04/13/2002 PPD 01/19/2018 Pneumococcal Conjugate Vacc, 13 Valent (Prevnar) 03/15/2018 Pneumococcal Conjugate Vacci ne, 20-valent ([id number]) 10/26/2023 Pneumococcal Conjugate Vacci ne, 7 Valent [...] Notes * Telephone Encounter - Margarito Munoz [facility] - 11/08/2023 1:45 PM EDT Signed Prescriptions: Disp Refills amLODIPine Besylate 5 MG Oral Tablet (Norv*180 Ta*1 Sig: TAKE 1 TABLET BY MOUTH TWICE DAILY EVERY MORNING AND BEFORE BEDTIME Authorizing Provider: FABIO CLARKE Ordering User: MARGARITO MUNOZ * Telephone Encounter - [facility] - 11/08/2023 10:02 AM EDT Pending Prescriptions: Disp Refills amLODIPine Besylate 5 MG Oral Tablet [Phar*180 Ta*0 Sig: TAKE 1TABLET BY MOUTH TWICE DAILY EVERY MORNING AND BEFORE BEDTIME documented in this encounter Plan of Treatment Upcoming Encounters Date Type Department Care Team (Late st Contact Info) Description 11/26/2023 11:15 AM EDT Imaging Radiology [facility] 1st [facility] [address] [facility] [place] [address] 12/03/2023 10:50 AM EDT Anticoagulation Pharmacy, [place] [address] [address] [place], [facility] [address] [place] [address] 12/08/2023 10:40 AM EDT Office Visit Rheumatology [address] [place] [address] Arnav Damon MD [address] [place] [address] [place] [address] 03/24/2024 9:30 AM EDT Office Visit Cardiology, [facility] [address] [place] [address] Corrine Quinn PA-C [address] [facility] [place] [address] 05/11/2024 10:15 AM EST Office Visit Ophthalmology, [facility] [address] [place] [address] Doyle Heredia, DO [address] [place] [address] 05/18/2024 10:40 AM EST Office Visit Family Practice, [place] [address] [address] Fabio Clarke MD [address] [facility] [address] 05/18/2024 1:00 PM EST [place] [address] [facility] [place] [address] Sully Kearns PA-C [address] [place] [address] [place] [address] Health Maintenance Due Date Last Done Comments [...] D LEVEL ONCE IN A LIFETIME-USE SMARTSET# [id number] Completed 06/22/2023, 06/01/2023, 01/07/2023, Additional history exists [...] this encounter Medical Devices Implanted Type Area Section Crews Activities Clerk Device Identifier Shelf Expiration Date Model / Serial / Lot Clip Quick 2.8mm 230cm - [id number] Implanted:Qty: 4 on 11/14/2020 by Martina Cancino MD at ENDOSCOPY [facility] [employer] [facility] 06/27/2023 [id number]-202UR.A / / Lens 19.5 [id number] - [id number] - [id number] Implanted:Qty: 1 on 03/26/2021 by Doyle Heredia DO at OR [facility] Right: Eye BRII : SURGICAL 10/29/2025 [id number] / [id number] / Lens 19.5 [id number] - [id number] - [id number] Implanted:Qty: 1 on 03/11/2022 by Doyle Heredia DO at OR [facility] Left: Eye BRII : SURGICAL 10/29/2025 [id number] / [id number] / documented as of this encounter Visit Diagnoses Diagnosis Resistant hypertension HTN, goal below 140/90 Unspecified essential hypertension Longstanding persistent atrial fibrillation (HCC) Atherosclerosis of aorta (HCC) Atherosclerosis of aorta documented in this encounter Advance Directives Latest Code Status on File Code Status Date Activated Date Inactivated Comments Full Code 03/11/2022 7:56 AM 03/11/2022 2:41 PM Question Answer Comments Discussion of Advance Directives occurred with: Not Discussed due to patient's condition Care Teams Blood Donor Recruiter Supervisor Relationship Specialty Start Date End Date Fabio Clarke MD [address] [place] [address] PCP - General Family Medicine 08/04/22 documented as of this encounter
--- OUTSIDE RECORDS SUMMARY | 2024-01-06 14:23 | External Medical Summary ---
Author Name Unknown Address Unknown Organization K01:[facility] [place] - [address] [facility] [address] Laboratory Report Ordering Provider Test Date Status TRICIA MCCARTHY 10/26/2023 18:38:25 Final <10,000 colonies/ml mixed no rmal john Observation Date Value Abnormality Reference (Units ) Status Bacteria identified in Specimen by Culture 10/26/2023 18:38:25 [id number]^ESCHE RICHIA COLI Abnormal Final 10,000 to 100,000 colonies/m L Escherichia coli Performing Location LAB[facility] [place] - [address] [place] [address] Ordering Provider Test Date Status TRICIA MCCARTHY 10/26/2023 18:38:25 Final Observation Date Value Abnormality Reference (Units ) Status Ampicillin 10/26/2023 18:38:25 <=2 Susceptible Final Cefazolin 10/26/2023 18:38:25 <=4 Susceptible Final Cefepime susceptibility 10/26/2023 18:38:25 <=1 Susceptible Final Ceftriaxone suceptibility 10/26/2023 18:38:25 <=1 Susceptible Final Ciprofloxacin 10/26/2023 18:38:25 <=0.25 Susceptible Final Due to serious side effects, the FDA has advised against using Ciprofloxacin to treat uncomplicated UTIs and respiratory tract infections unless there are no alternative treatment options. Gentamicin susceptibility 10/26/2023 18:38:25 <=1 Susc eptible Final Nitrofurantoin susceptibility 10/26/2023 18:38:25 <=16 Susceptible Final Piperacillin + Tazobactamsusceptibility 10/26/2023 18:38:25 <=4 Susceptible Final TMP-SMZ susceptibility 10/26/2023 18:38:25 <=20 Suscept ible Final Test: Culture, Urine, Quanti tative
Specimen Source: Urine, Clean Catch
Specimen Type: Urine
Specimen Date: 10/26/2023 6:38 PM
Result Date: 10/30/2023 8:41 AM
Result Status: Final result
Abnormal: Yes
Resulting Lab: [facility] [place]
[address]
[facility] [address]

CULTURE

10,000 to 100,000 colonies/mL Escherichia coli (Abnormal)

<10,000 colonies/ml mixed normal john

SUSCEPTIBILITY

Escherichia coli
METHOD MICROBROTH
DILUTIONS

AMPICILLIN <=2 Susceptible
CEFAZOLIN <=4 Susceptible
CEFEPIME <=1 Susceptible
CEFTRIAXONE <=1 Susceptible
CIPROFLOXACIN <=0.25 Susceptible
GENTAMICIN <=1 Susceptible
NITROFURANTOIN <=16 Susceptible
PIPERACILLIN TAZOBACTAM <=4 Susceptible
TRIMETH/SULFAMETHOXAZOLE <=20 Susceptible

null Performing Location LABORATORY [facility] [place] - [address] [facility] [address]
--- OUTSIDE RECORDS SUMMARY | 2024-01-06 14:23 | External Medical Summary | Summary of Care ---
Author Name Unknown Organization [facility] Address [address] [place] [address] Phone [phone] Care Team Providers Care Accident Report Clerk Name Role Phone Derrek Sparks MD Primary Care Provider [phone]- [phone] Reason for Visit * Reason Comments Outpatient Testing Encounter Details Date Type Department Care Team (Late st Contact Info) Description 10/29/2023 11:10 AM EDT Laboratory Laboratory, [place] [address] [place] [address] [place], Laboratory [address], [place] [id number] Longstanding persistent atrial fibrillation (HCC); Anticoagulation management encounter; assisted current use of anticoagulant therapy; Type 2 diabetes mellitus with diabetic neuropathy, without long-term current use of insulin (HCC) Allergies Active Allergy Reactions Criticality Noted Date Comments Tello Inhibitors 05/08/2021 Hyperkalemia resulting in 2 hospitalizations Metformin Diarrhea 11/05/2022 Nadolol Itching 03/17/1999 Corgard itchy Nitroglycerin Other (Please comment) 02/09/2011 Headache that is only relieved with Morphine. Nsaids Nausea/vomiting 03/17/1999 relafen documented as of this encounter (statuses as of 10/29/2023) Medications Medication Sig Dispensed Refills Start Date [...] mouth in the morning. 0 07/22/2020 Active [email or web address] Verio w/Device KitIndications:DM type 2 with diabetic peripheral neuropathy (HCC) Use to check blood sugars daily as directed E11.9 1 Kit 0 10/10/2020 Active [employer] Verio In Vitro Strip (Glucose Blood)Indications: DM [...] Oral Tablet (Coreg)Indications :Coronary artery disease involving siletz tribe coronary artery of siletz tribe heart without angina pectoris,HTN, goal below [...] as of this encounter (statuses as of 10/29/2023) Active Problems Problem Noted Date Diagnosed Date [...] cancer 11/06/2019 Coronary artery disease invo lving siletz tribe coronary artery of siletz tribe heart without angina pectoris 07/04/2019 Senile [...] as of this encounter (statuses as of 10/29/2023) Resolved Problems Problem Noted Date Diagnosed Date [...] 36.9 with serious comorbidity 11/17/2018 Atherosclerosis of siletz tribe co ronary artery of siletz tribe heart without angina pectoris 11/17/201806/2021 Arteriosclerotic [...] as of this encounter (statuses as of 10/29/2023) Immunizations Name Administration Dates Next Due COVID-19 mRNA, LNP-s, No Pre serve, 2-Dose Series (Pfizer) 10/30/2020,10/09/2020 DT - Diptheria/Tetanus (PEDS) 04/13/2002 PPD 01/19/2018 Pneumococcal Conjugate Vacc, 13 Valent (Prevnar) 03/15/2018 Pneumococcal Conjugate Vacci ne, 20-valent ([id number]) 10/26/2023 Pneumococcal Conjugate Vacci ne, 7 Valent [...] Description 12/03/2023 10:50 AM EDT [facility]ticoagulation Pharm[facility], [place] [address] [facility] [facility] [address] [facility] [address] [facility] [address] 12/08/2023 10:40 AM EDT Office Visit Rheumatology [address] [place] [address] Arnav Damon MD [address] [place] [address] [place] [address] 03/24/2024 9:30 AM EDT Office Visit Cardiology, [facility] [address] [facility] [address] Corrine Quinn PA-C [address] [facility] [address] 05/11/2024 10:15 AM EST Office Visit Ophthalmology, [facility] [address] [place] [address] Doyle Heredia, DO [address] [facility] [address] 05/18/2024 10:40 AM EST Office Visit Family Practice, [place] [address] [facility] [id number] Derrek Sparks MD [address] [facility] [address] 05/18/2024 1:00 PM EST Office Visit Dermatology, [place] [address] [address] [facility] [address] Sully Kearns PA-C [address] [place] [address] [place] [address] Pending Results Name Type Priority Associated Diagnoses Date /Time PT INR Lab Routine Longstanding persistent atrial fibrillation (HCC) Anticoagulation management encounter terminologist current use of anticoagulant therapy 10/29/2023 10:59 AM EDT HEMOGLOBIN A1C Lab Routine Type 2 diabetes mellitus with diabetic neuropathy, without long-term current use of insulin (HCC) 10/29/2023 10:59 AM EDT Health Maintenance Due Date Last [...] D LEVEL ONCE IN A LIFETIME-USE SMARTSET# [id number] Completed 06/22/2023, 06/01/2023, 01/07/2023, Additional history exists [...] this encounter Medical Devices Implanted Type Area Grain Wafer Machine Operator Device Identifier Shelf Expiration Date Model / Serial / Lot Clip Quick 2.8mm 230cm - [id number] Implanted:Qty: 4 on 11/14/2020 by Martina Cancino MD at ENDOSCOPY [facility] [employer] 06/27/2023 HX-202UR.A / / Lens 19.5 [id number] - [id number] - [id number] Implanted:Qty: 1 on 03/26/2021 by Doyle Heredia DO at OR [facility] Right: Eye BRII : SURGICAL 10/29/2025 [id number] / [id number] / Lens 19.5 [id number] - [id number] - [id number] Implanted:Qty: 1 on 03/11/2022 by Doyle Heredia DO at OR [facility] Left: Eye BRII : SURGICAL 10/29/2025 [id number] / [id number] / documented as of this encounter Visit Diagnoses Diagnosis Longstanding persistent atrial fibrillation (HCC) Anticoagulation management encounter Encounter for therapeutic drug monitoring assisted current use of anticoagulant therapy Type 2 diabetes mellitus with diabetic neuropathy, without long-term current use of insulin (HCC) documented in this encounter Advance Directives Latest Code Status on File Code Status Date Activated Date Inactivated Comments Full Code 03/11/2022 7:56 AM 03/11/2022 2:41 PM Question Answer Comments Discussion of Advance Directives occurred with: Not Discussed due to patient's condition Care Teams Accident Report Clerk Relationship Specialty Start Date End Date Derrek Sparks MD [address] [place] [address] PCP - General Family Medicine 08/04/22 documented as of this encounter
--- OUTSIDE RECORDS SUMMARY | 2024-01-06 14:23 | External Medical Summary | Summary of Care ---
Author Name Unknown Organization [facility] Address [address] [place] [address] Phone [phone] Care Team Providers Care Resident Care Assistant Name Role Phone Derrek Sparks MD Primary Care Provider +1- [phone] Reason for Visit * Reason Comments Outpatient Testing Encounter Details Date Type Department Care Team (Late st Contact Info) Description 10/29/2023 11:10 AM EDT Laboratory Laboratory, [place] [address] [place] [address] [place], Laboratory [address] [place], [place] [id number] Longstanding persistent atrial fibrillation (HCC); Anticoagulation management encounter; MCC current use of anticoagulant therapy; Type 2 [...] mouth in the morning. 0 07/22/2020 Active [employer] Verio w/Device KitIndications:DM type 2 with diabetic peripheral neuropathy (HCC) Use to check blood sugars daily as directed E11.9 1 Kit 0 10/10/2020 Active [employer] Verio In Vitro Strip (Glucose Blood)Indications: DM [...] Oral Tablet (Coreg)Indications :Coronary artery disease involving venetie ira coronary artery of ven[place] ir[place] heart without angina pectoris,HTN, goal below 140/90 [...] cancer 11/06/2019 Coronary artery disease invo lving venetie ira coronary artery of ven[place] ir[place] heart without angina pectoris 07/04/2019 Senile osteoporosis 05/15/2019 Nontoxic uninodular goiter 11/17/2018 Gastroesophageal reflux disease without esophagi tis 11/01/2018 Rheumatoid arthritis 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 03/24/2018 HTN, goal below 140/90 03/24/2018 Old [place] (myocardial infarction) 03/24/2018 Type 2 diabetes mellitus [...] negative rheumatoid factor 07/04/2019 09/27/19 22 Old [place] (myocardial infarction) 07/04/2019 09/26/2021 Major depression single epis ode, in partial remission 03/23/2019 08/26/2023 Severe obesity with body mas s index (BMI) of 36.0 to 36.9 with serious comorbidity 11/17/2018 Atherosclerosis of venet[place] ira co ronary artery of venetie ira heart without angina pectoris 11/17/201806/2021 Arteriosclerotic dementia wi th depressive features 11/17/2018 12/16/2018 Compression fracture of lumbar vertebra 11/10/2018 11/07/2021 Iron deficiency anemia 05/26/201812/16 Colorectal polyps 04/22/2018 09/12/2018 Rheumatoid arthritis 12/28/2017 023 Overview: More specified Dx listed on PL Acute [place] 11/19/2017 11/19/2017 Inflammatory polyarthropathy 11/19/2017 12/16/2018 Loosening [...] (Prevnar) 03/15/2018 Pneumococcal Conjugate Vacci ne, 20-valent ([id number]) 10/26/2023 Pneumococcal Conjugate Vacci ne, 7 Valent [...] Description 12/03/2023 10:50 AM EDT [facility], [place] [address] [facility] [address] [facility] [address] [facility] [address] 12/08/2023 10:40 AM EDT Office Visit Rheumatology [address] [place] [address] Arnav Damon MD [address] [place] [address] [place] [address] 03/24/2024 9:30 AM EDT Office Visit [facility], [facility] [address] Corrine [facility] PA-C [facility] [address] 05/11/2024 10:15 AM EST Office Visit Ophthalmology, [facility] [address] [facility] [place] [address] Doyle Heredia, DO 21 [facility] [place] [address] 05/18/2024 10:40 AM EST Office Visit Family Practice, [place] [address] [facility] [phone] Derrek Sparks MD [address] 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 current use of anticoagulant therapy 10/29/2023 10:59 [...] D LEVEL ONCE IN A LIFETIME-USE SMARTSET# [id number] Completed 06/22/2023, 06/01/2023, 01/07/2023, Additional history exists [...] this encounter Medical Devices Implanted Type Area Home Teaching Grades 7 And 8 Teacher Device Identifier Shelf Expiration Date Model / Serial / Lot Clip Quick 2.8mm 230cm - [id number] Implanted:Qty: 4 on 11/14/2020 by Martina Cancino MD at ENDOSCOPY [facility] [employer] 06/27/2023 [id number]-202UR.A / / Lens 19.5 [id number] - [id number] - [id number] Implanted:Qty: 1 on 03/26/2021 by Doyle Heredia DO at OR [facility] Right: Eye BRII : SURGICAL 10/29/2025 [id number] / [id number] / Lens 19.5 [id number] - [id number] - [id number] Implanted:Qty: 1 on 03/11/2022 by Doyle Heredia DO at OR [facility] Left: Eye BRII : SURGICAL 10/29/2025 [id number] / [id number] / documented as of this encounter Visit Diagnoses Diagnosis Longstanding persistent atrial fibrillation (HCC) Anticoagulation management encounter Encounter for therapeutic drug monitoring MCC current use of anticoagulant therapy Type 2 diabetes mellitus with diabetic neuropathy, without long-term current use of insulin (HCC) documented in this encounter Advance Directives Latest Code Status on File Code Status Date Activated Date Inactivated Comments Full Code 03/11/2022 7:56 AM 03/11/2022 2:41 PM Question Answer Comments Discussion of Advance Directives occurred with: Not Discussed due to patient's condition Care Teams Resident Care Assistant Relationship Specialty Start Date End Date Derrek Sparks MD [address] [place] [address] PCP - General Family Medicine 08/04/22 documented as of this encounter
--- OUTSIDE RECORDS SUMMARY | 2024-01-06 14:23 | External Medical Summary | Summary of Care ---
Author Name Unknown Organization [facility] Address [address] [place] [address] Phone [phone] Care Team Providers Care Agriculture Engineer Name Role Phone Derrek Sparks MD Primary Care Provider +1- [phone] Reason for Visit * Reason Comments Outpatient Testing Encounter Details Date Type Department Care Team (Late st Contact Info) Description 10/19/2023 7:50 AM EDT Laboratory Laboratory, [place] [address] [place] [address] [place], Laboratory [address] [place], [place] [id number] Dyslipidemia, goal LDL below 70; Coronary artery disease involving ugash[place] coronary artery of ugashik heart without angina pectoris; PVD (peripheral vascular disease) ([facility]); HTN, goal below 130/80 Allergies Active Allergy Reactions Criticality Noted Date Comments Tello Inhibitors 05/08/2021 Hyperkalemia resulting in 2 hospitalizations Metformin Diarrhea 11/05/2022 Nadolol Itching 03/17/1999 Corgard itchy Nitroglycerin Other (Please comment) 02/09/2011 Headache that is only relieved with Morphine. Nsaids Nausea/vomiting 03/17/1999 relafen documented as of this encounter (statuses as of 10/19/2023) Medications Medication Sig Dispensed Refills Start Date [...] mouth in the morning. 0 07/22/2020 Active [employer] Verio w/Device KitIndications:DM type 2 with diabetic peripheral neuropathy (HCC) Use to check blood sugars daily as directed E11.9 1 Kit 0 10/10/2020 Active [employer] Verio In Vitro Strip (Glucose Blood)Indications: DM type 2 with diabetic peripheral neuropathy (HCC) Use to check blood sugars twice daily as directed Dx E11.9 200 Strip 3 10/10/2020 Active Cholecalciferol 50 MCG (2000 UT) Oral Capsule DAILY 0 03/27/2022 Active Diclofenac Sodium 1 % External Gel (Voltaren)Indicati ons:Left foot pain Apply topically to affected area 4 times a day. Apply to bilateral feet. 150 g 2 07/07/2022 Active Valsartan 160 MG Oral Tablet (Diovan) Take 1 Tablet by mouth daily. 0 07/15/2022 Active cloNIDine HCl 0.1 MG Oral Tablet [...] the morning. 100 Tablet 3 01/07/2023 Active Linzess 145 MCG Oral Capsule (linaCLOtide)Indic ations:Constipatio n, unspecified constipation type,Chronic idiopathic constipation Take 1 Capsule by mouth daily before breakfast. 90 Capsule 3 02/08/2023 Active Additional Information Patient not taking.Reported on 10/05/2023 Carvedilol 25 MG Oral Tablet (Coreg)Indications :Coronary artery disease involving ugashik coronary artery of ugashik heart without angina pectoris,HTN, goal below 140/90 [...] the morning. 90 Tablet 3 08/30/2023 Active Dicyclomine HCl 10 MG Oral Capsule (Bentyl)Indication s:Abdominal cramps Take 1 capsule by mouth twice per day as needed for abd pain. 60 Capsule 0 09/15/2023 Active documented as of this encounter (statuses as of 10/19/2023) Active Problems Problem Noted Date Diagnosed Date [...] cancer 11/06/2019 Coronary artery disease invo lving ugashik coronary artery of ugashik heart without angina pectoris 07/04/2019 Senile osteoporosis 05/15/2019 Nontoxic uninodular goiter 11/17/2018 Gastroesophageal reflux disease without esophagi tis 11/01/2018 Rheumatoid arthritis 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 03/24/2018 HTN, goal below 140/90 03/24/2018 Old [place] (myocardial infarction) 03/24/2018 Type [...] as of this encounter (statuses as of 10/19/2023) Resolved Problems Problem Noted Date Diagnosed Date [...] 36.9 with serious comorbidity 11/17/2018 Atherosclerosis of ugash[place] co ronary artery of ugashik heart without angina pectoris 11/17/201806/2021 Arteriosclerotic dementia [...] as of this encounter (statuses as of 10/19/2023) Immunizations Name Administration Dates Next Due COVID-19 [...] Date Recorded PHQ Adult Total Score 0 09/08/2022 Hunger Vital Sign Answer Date Recorded Worried About Running Out of Food in the Last Ye ar Never true 05/15/2019 Ran Out of Food in the Last Year Never true 05/15/2019 Sex and Gender Information Value Date Recorded [...] Description 10/26/2023 6:20 PM EDT Office Visit Family [facility], [place] [address] [place] [address] Derrek Sparks MD [address] [place] [address] 10/29/2023 10:50 AM EDT Anticoagulation Pharmacy, [place] [address] [place] [address] [facility] [address] [place] [address] 12/08/2023 10:40 AM EDT Office Visit Rheumatology [address] [address] Arnav Damon MD [address] [place] [address], [place] [address] 03/24/2024 9:30 AM EDT Office Visit [facility]iology, [facility] [place] [address] Corrine Quinn, ANIA [address] [place] [address] 05/11/2024 10:15 AM EST Office Visit Ophthalmology, [facility] [address] [place] [address] Doyle Heredia, DO [address] [place] [address] Pending Results Name Type Priority Associated Diagnoses Date /Time LIPID PANEL WITH DIRECT LDL IF TG IS HIGH Lab Routine Dyslipidemia, goal LDL below 70 Coronary artery disease involving ugashik coronary artery of ugashik heart without angina pectoris PVD (peripheral vascular disease) (HCC) HTN, goal below 130/80 10/19/2023 8:00 AM EDT COMPREHENSIVE METABOLIC PANEL Lab Routine Dyslipidemia, goal LDL below 70 Coronary artery disease involving ugashik coronary artery of ugashik heart without angina pectoris PVD (peripheral vascular disease) (HCC) HTN, goal below 130/80 10/19/2023 8:00 AM EDT Health Maintenance Due Date Last Done Comments Zoster Vaccines (2 of 3) 03/11/2016 01/15/2016 Pneumococcal Vaccine: 65+ Years (3 of 3 - PPSV23 or PCV20) 03/15/2019 03/15/2018, 01/12/2002, 06/28/2001, Additional history exists COVID-19 Vaccine ( season) 2023 10/30/2020, 10/09/2020 *NEPHROLOGY REFERRAL DUE TO RESISTANT HTN 05/10/2023 Diabetic Foot Exam 07/07/2023 07/07/2022, 0 10/22/2020, 07/04/2019, Additional history exists Depression Screening 09/09/2023 09/08/2022 HbA1c 12/01/2023 06/01/2023, 12/26, 08/10/2022, Additional history exists Diabetic Eye Exam 04/29/2024 04/29/2023, , 04/29/2023, Additional history exists DXA Scan 05/03/2024 05/03/2023, 11/2022, 04/29/2021, Additional history exists Albumin/Creatinine Ratio 06/01/20242 023, 05/07/2022, 12/06/2020, Additional history exists TSH 06/01/2024 06/01/2023, 07/29, 04/21/2021, Additional history exists GFR 08/05/2024 08/05/2023, 06/30, 06/22/2023, Additional history exists COLONOSCOPY-EVERY 3 YRS AGES 18-100 08/18/2025 08/18/2022, 08/18/2022, 11/14/2020, Additional history exists DTaP,Tdap,and Td Vaccines (4 - Td or Tdap) 03/15/2028 03/15/2018, 03/15/2018, 01/25/2017, Additional history exists COLONOSCOPY-ANNUAL AGES 18-100 Discontinued 08/18/2022, 08/18/2022, 11/14/2020, Additional history exists Influenza Vaccine (FLU shot) Completed 04/13/2023, 03/13/2021, 03/13/2021, Additional history exists VITAMIN D LEVEL ONCE IN A LIFETIME-USE SMARTSET# [id number] Completed 06/22/2023, 06/01/2023, 01/07/2023, Additional history exists GARDASIL-HPV IMMUNIZATION SERIES Aged Out No longer eligible based on patient's age to complete this topic Hepatitis B Aged Out No longer eligi ble based on patient's age to complete this topic MENINGOCOCCAL (MENACTRA/MENVEO) Aged Out No longer eligible based on patient's age to complete this topic documented as of this encounter Medical Devices Implanted Type Area [employer] Device Identifier Shelf Expiration Date Model / Serial / Lot Clip Quick 2.8mm 230cm - [id number] Implanted:Qty: 4 on 11/14/2020 by Martina Cancino MD at ENDOSCOPY [facility] [employer] [facility] 06/27/2023 HX-202UR.A / / Lens 19.5 [id number] - [id number] - [id number] Implanted:Qty: 1 on 03/26/2021 by Doyle Heredia DO at OR [facility] Right: Eye BRII : SURGICAL 10/29/2025 [id number] / [id number] / Lens 19.5 [id number] - [id number] - [id number] Implanted:Qty: 1 on 03/11/2022 by Doyle Heredia DO at OR [facility] Left: Eye BRII : SURGICAL 10/29/2025 [id number] / [id number] / documented as of this encounter Visit Diagnoses Diagnosis Dyslipidemia, goal LDL below 70 Other and unspecified hyperlipidemia Coronary artery disease involving ugashik coronary artery of ugashik heart without angina pectoris PVD (peripheral vascular disease) (HCC) Peripheral vascular disease, unspecified HTN, goal below 130/80 Unspecified essential hypertension documented in this encounter Advance Directives Latest Code Status on File Code Status Date Activated Date Inactivated Comments Full Code 03/11/2022 7:56 AM 03/11/2022 2:41 PM Question Answer Comments Discussion of Advance Directives occurred with: Not Discussed due to patient's condition Care Teams Agriculture Engineer Relationship Specialty Start Date End Date Derrek Sparks MD [address] [place] [facility] [place] [address] PCP - General Family Medicine 08/04/22 documented as of this encounter
--- OUTSIDE RECORDS SUMMARY | 2024-01-06 14:23 | External Medical Summary | Summary of Care ---
Author Name Unknown Organization [facility] Address [address] [place] [address] Phone [phone] Care Team Providers Care Assistant Spa Director Name Role Phone Derrek Sparks MD Primary Care Provider +1- [phone] Reason for Visit * Reason Comments eRx-Medication Refill Encounter Details Date Type Department Care Team (Late st Contact Info) Description 11/06/2023 Refill Cardiology, [facility] [address] [place] [address] Jhoana Jimenez PA-C [address] [place] [address] HTN, goal below 140/80 Allergies Active Allergy Reactions Criticality Noted Date [...] mouth in the morning. 0 1 Active [employer] Verio w/Device KitIndications:DM type 2 with diabetic peripheral neuropathy (HCC) Use to check blood sugars daily as directed E11.9 1 Kit 0 1 Active [employer] Verio In Vitro Strip (Glucose Blood)Indications :DM [...] Oral Tablet (Coreg)Indication s:Coronary artery disease involving [place] coronary artery of [place] heart without angina pectoris,HTN, goal below 140/90 [...] BEFORE BEDTIME 180 Tablet 3 4 Active cloNIDine HCl 0.1 MG Oral Tablet (Catapres)Indicat ions:HTN, goal below 140/80 TAKE 1 TABLET BY MOUTH IN THE MORNING AND 1 TABLET BEFORE BEDTIME. 180 Tablet 3 3 11/08/19 24 Discontinued amLODIPine Besylate 5 MG Oral Tablet (Norvasc)Indicati [...] cancer 11/06/2019 Coronary artery disease invo lving [place] coronary artery of [place] heart without angina pectoris 07/04/2019 Senile osteoporosis 05/15/2019 Nontoxic uninodular goiter 11/17/2018 Gastroesophageal reflux disease without esophagi tis 11/01/2018 Rheumatoid arthritis 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 03/24/2018 HTN, goal below 140/90 03/24/2018 Old [place] (myocardial infarction) 03/24/2018 Type 2 diabetes mellitus [...] negative rheumatoid factor 07/04/2019 09/27/19 22 Old [place] (myocardial infarction) 07/04/2019 09/26/2021 Major depression single epis ode, in partial remission 03/23/2019 08/26/2023 Severe obesity with body mas s index (BMI) of 36.0 to 36.9 with serious comorbidity 11/17/2018 Atherosclerosis of [place] co ronary artery of [place] heart without angina pectoris 11/17/201806/2021 Arteriosclerotic dementia wi th depressive features 11/17/2018 12/16/2018 Compression fracture of lumbar vertebra 11/10/2018 11/07/2021 Iron deficiency anemia 05/26/201812/16 Colorectal polyps 04/22/2018 09/12/2018 Rheumatoid arthritis 12/28/2017 023 Overview: More specified Dx listed on PL Acute [place] 11/19/2017 11/19/2017 Inflammatory polyarthropathy 11/19/2017 12/16/2018 Loosening [...] (Prevnar) 03/15/2018 Pneumococcal Conjugate Vacci ne, 20-valent ([id number]) 10/26/2023 Pneumococcal Conjugate Vacci ne, 7 Valent [...] encounter Miscellaneous Notes * Telephone Encounter - Jhoana Jimenez PA-C - 11/08/2023 1:33 PM EDT Signed Prescriptions: Disp Refills cloNIDine HCl 0.1 MG Oral Tablet (Catapres)180 Ta*3 Sig: TAKE ONE TABLET BY MOUTH IN THE MORNING AND ONE BEFORE BEDTIME Authorizing Provider: JHOANA JIMENEZ * Telephone Encounter - Rachel Jimenes CMA - 11/08/2023 10:56 AM EDTPending Prescriptions: Disp Refills cloNIDine HCl 0.1 MG Oral Tablet (Catapres)180 Ta*3 Sig: TAKE ONE TABLET BY MOUTH IN THE MORNING AND ONE BEFORE BEDTIME * Telephone Encounter - Rachel Jimenes CMA - 11/08/2023 10:56 AM EDT Did you pend patient's preferred pharmacy and medication before forwarding?yes Pharmacy: [id number] Pending Prescriptions: Disp Refills cloNIDine HCl 0.1 MG Oral Tablet (Catapre*180 Ta*3 Sig: TAKE ONE TABLET BY MOUTH IN THE MORNING AND ONE BEFORE BEDTIME Last Visit: 10/05/2023 (in office), Visit date not found (telemedicine) Next Visit: 03/24/2024 If no future appointments scheduled, and last appointment is greater than a year ago, please schedule patient for a follow-up appointment Last date the medication was ordered: 10-26-2022 Is this request for a controlled substance?No Urine Drug Screen:No results found. However, due [...] 07/05/2020 01:05 PM * Telephone Encounter - Interface, E-Rx Ss Inbound - 11/08/2023 10:02 AM EDT Pending Prescriptions: Disp Refills cloNIDine HCl 0.1 MG Oral Tablet [Pharmacy*180 Ta*0 Sig: TAKE ONE TABLET BY MOUTH IN THE MORNING AND ONE BEFORE BEDTIME documented in this encounter Plan of Treatment Upcoming Encounters Date Type Department Care Team (Late st Contact Info) Description 11/26/2023 11:15 AM EDT Imaging Radiology [address] [place] [address] 12/03/2023 10:50 AM EDT [place] [address] [place] [address] [facility] [address] [place] [address] 12/08/2023 10:40 AM EDT Office Visit Rheumatology [place] [address] [place] [address] Arnav Damon MD [facility] [place] [address] [place] [address] 03/24/2024 9:30 AM EDT Office Visit Cardiology, [facility] [address] [facility] [place] [address] Jhoana Jimenez PA-C [address] [place] [address] 05/11/2024 10:15 AM EST Office Visit Ophthalmology, [facility] [address] [place] [address] Doyle Heredia, DO [address] [place] [address] 05/18/2024 10:40 AM EST Office Visit Family [facility], [place] [address] [facility] [place] [phone] Derrek Sparks MD [address] [place] [address] 05/18/2024 1:00 PM EST Office Visit Dermatology, [place] [address] [place] [address] Sully Kearns PA-C [address] [place] [address] [place] [address] Health Maintenance Due Date Last Done Comments [...] D LEVEL ONCE IN A LIFETIME-USE SMARTSET# 32554 Completed 06/22/2023, 06/01/2023, 01/07/2023, Additional history exists [...] this encounter Medical Devices Implanted Type Area Liquid Center Assembler Device Identifier Shelf Expiration Date Model / Serial / Lot Clip Quick 2.8mm 230cm - [id number] Implanted:Qty: 4 on 11/14/2020 by Martina Cancino MD at ENDOSCOPY [facility] [employer] 06/27/2023 HX-202UR.A / / Lens 19.5 [id number] - [id number] - [id number] Implanted:Qty: 1 on 03/26/2021 by Doyle Heredia DO at OR [facility] Right: Eye BRII : SURGICAL 10/29/2025 [id number] / [id number] / Lens 19.5 [id number] - [id number] - [id number] Implanted:Qty: 1 on 03/11/2022 by Doyle Heredia DO at OR [facility] Left: Eye BRII : SURGICAL 10/29/2025 [id number] / [id number] / documented as of this encounter Visit Diagnoses Diagnosis HTN, goal below 140/80 Unspecified essential hypertension documented in this encounter Advance Directives Latest Code Status on File Code Status Date Activated Date Inactivated Comments Full Code 03/11/2022 7:56 AM 03/11/2022 2:41 PM Question Answer Comments Discussion of Advance Directives occurred with: Not Discussed due to patient's condition Care Teams Assistant Spa Director Relationship Specialty Start Date End Date Derrek Sparks MD [address] [place] [address] PCP - General Family Medicine 08/04/22 documented as of this encounter
--- OUTSIDE RECORDS SUMMARY | 2024-01-06 14:23 | External Medical Summary ---
Author Name Unknown Address Unknown Organization : Laboratory Report Ordering Provider Test Date Status ILIA CHAEVZ 10/29/2023 10:50:52 Final Therapeutic ranges for non-o perative patients:
Prophylaxsis/treatment of DVT: (Range:2.0-3.0)
Treatment of pulmonary embolism:(Range:2.0-3.0)
Prevention of systemic embolism from:
-tissue heart valves
-acute myocardial infarction
-valvular heart disease
-atrial fibrillation
(Range: 2.0-3.0)
Mechanical prosthetic valves: (Range: 2.5-3.5) Observation Date Value Abnormality Reference (Units ) Status INR in Capillary blood by Coagulation assay 10/29/2023 10:50:52 1.8 (INR) Final Performing Location
--- OUTSIDE RECORDS SUMMARY | 2024-01-06 14:23 | External Medical Summary | Summary of Care ---
Author Name Unknown Organization [facility] Address [address] [place] [address] Phone [phone] Care Team Providers Care Car Mechanic Helper Name Role Phone Derrek Sparks MD Primary Care Provider [phone]- [phone] Reason for Visit * Reason Onset Date Comments Appointment 10/27/2023 MRI BRAIN WITHOU T CONTRAST Encounter Details Date Type Department Care Team (Late st Contact Info) Description 10/27/2023 Telephone [facility] [address] [place] [address] Derrek Sparks MD [address] [place] [address] Appointment (MRI BRAIN WITHOUT CONTRAST) Allergies Active Allergy Reactions Criticality Noted Date Comments Tello Inhibitors 05/08/2021 Hyperkalemia resulting in 2 hospitalizations Metformin Diarrhea 11/05/2022 Nadolol Itching 03/17/1999 Corgard itchy Nitroglycerin Other (Please comment) 02/09/2011 Headache that is only relieved with Morphine. Nsaids Nausea/vomiting 03/17/1999 relafen documented as of this encounter (statuses as of 10/27/2023) Medications Medication Sig Dispensed Refills Start Date [...] mouth in the morning. 0 07/22/2020 Active [employer] Verio w/Device KitIndications:DM type 2 with diabetic peripheral neuropathy (HCC) Use to check blood sugars daily as directed E11.9 1 Kit 0 10/10/2020 Active [employer] Verio In Vitro Strip (Glucose Blood)Indications: DM [...] Oral Tablet (Coreg)Indications :Coronary artery disease involving [place] coronary artery of [place] heart without angina pectoris,HTN, goal below 140/90 [...] as of this encounter (statuses as of 10/27/2023) Active Problems Problem Noted Date Diagnosed Date [...] cancer 11/06/2019 Coronary artery disease invo lving [place] coronary artery of [place] heart without angina pectoris 07/04/2019 Senile osteoporosis 05/15/2019 Nontoxic uninodular goiter 11/17/2018 Gastroesophageal reflux disease without esophagi tis 11/01/2018 Rheumatoid arthritis 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 03/24/2018 HTN, goal below 140/90 03/24/2018 Old VA (myocardial infarction) 03/24/2018 Type 2 diabetes mellitus [...] as of this encounter (statuses as of 10/27/2023) Resolved Problems Problem Noted Date Diagnosed Date [...] negative rheumatoid factor 07/04/2019 09/27/19 22 Old VA (myocardial infarction) 07/04/2019 09/26/2021 Major depression single epis ode, in partial remission 03/23/2019 08/26/2023 Severe obesity with body mas s index (BMI) of 36.0 to 36.9 with serious comorbidity 11/17/2018 Atherosclerosis of [place] co ronary artery of [place] heart without angina pectoris 11/17/201806/2021 Arteriosclerotic dementia wi th depressive features 11/17/2018 12/16/2018 Compression fracture of lumbar vertebra 11/10/2018 11/07/2021 Iron deficiency anemia 05/26/201812/16 Colorectal polyps 04/22/2018 09/12/2018 Rheumatoid arthritis 12/28/2017 023 Overview: More specified Dx listed on PL Acute VA 11/19/2017 11/19/2017 Inflammatory polyarthropathy 11/19/2017 12/16/2018 Loosening [...] as of this encounter (statuses as of 10/27/2023) Immunizations Name Administration Dates Next Due COVID-19 mRNA, LNP-s, No Pre serve, 2-Dose Series (Pfizer) 10/30/2020,10/09/2020 DT - Diptheria/Tetanus (PEDS) 04/13/2002 PPD 01/19/2018 Pneumococcal Conjugate Vacc, 13 Valent (Prevnar) 03/15/2018 Pneumococcal Conjugate Vacci ne, 20-valent ([id number]) 10/26/2023 Pneumococcal Conjugate Vacci ne, 7 Valent [...] Description 10/29/2023 10:50 AM EDT Anticoagulation Pharmacy, [place] [address] [place] [facility] [place] [address] [place] [facility] [address] [place] [facility] [place] [address] 12/08/2023 10:40 AM EDT Office Visit Rheumatology [address] [place] [address] Arnav Damon MD [address] [place] [address] [place] [address] 03/24/2024 9:30 AM EDT Office Visit Cardiology, [facility] [address] [facility] [place] [address] Corrine Quinn PA-C 132 [facility] [place] [address] 05/11/2024 10:15 AM EST Office Visit Ophthalmology, [facility] [address] [facility] [place] [address] Doyle Heredia, DO [address] [facility] [place] [address] 05/18/2024 10:40 AM EST Office Visit [facility], [place] [address] [facility] [id number] Derrek [facility]ks [facility] [address] [facility] [address] 05/18/2024 1:00 PM EST [facility], [place] [address] [facility] [place] [address] Sully Kearns, PA-Judith [address] [place] [address] [place] [address] Health Maintenance Due Date Last Done Comments [...] D LEVEL ONCE IN A LIFETIME-USE SMARTSET# [id number] Completed 06/22/2023, 06/01/2023, 01/07/2023, Additional history exists [...] this encounter Medical Devices Implanted Type Area Cable Tester Device Identifier Shelf Expiration Date Model / Serial / Lot Clip Quick 2.8mm 230cm - [id number] Implanted:Qty: 4 on 11/14/2020 by Martina Cancino MD at [facility] [employer] 06/27/2023 [id number]-202UR.A / / Lens 19.5 [id number] - [id number] - [id number] Implanted:Qty: 1 on 03/26/2021 by Doyle Heredia DO at OR [facility] Right: Eye BRII : SURGICAL 10/29/2025 [id number] / [id number] / Lens 19.5 [id number] - [id number] - [id number] Implanted:Qty: 1 on 03/11/2022 by Doyle Heredia DO at OR [facility] Left: Eye BRII : SURGICAL 10/29/2025 [id number] / [id number] / documented as of this encounter Advance Directives Latest Code Status on File Code Status Date Activated Date Inactivated Comments Full Code 03/11/2022 7:56 AM 03/11/2022 2:41 PM Question Answer Comments Discussion of Advance Directives occurred with: Not Discussed due to patient's condition Care Teams Car Mechanic Helper Relationship Specialty Start Date End Date Derrek Sparks MD [address] [place] [address] PCP - General Family Medicine 08/04/22 documented as of this encounter
--- OUTSIDE RECORDS SUMMARY | 2024-01-06 14:23 | External Medical Summary | Summary of Care ---
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 0 07/22/2020 Active [employer] Verio w/Device KitIndications:DM type 2 with diabetic peripheral neuropathy (HCC) Use to check blood sugars daily as directed E11.9 1 Kit 0 10/10/2020 Active [employer] In Vitro Strip (Glucose Blood)Indications: DM type [...] Oral Tablet (Coreg)Indications :Coronary artery disease involving [place] coronary artery of [place] heart without angina pectoris,HTN, goal below 140/90 [...] cancer 11/06/2019 Coronary artery disease invo lving [place] coronary artery of [place] heart without angina pectoris 07/04/2019 Senile osteoporosis [...] 36.9 with serious comorbidity 11/17/2018 Atherosclerosis of [place] co ronary artery of [place] heart without angina pectoris 11/17/201806/2021 Arteriosclerotic dementia [...] (Prevnar) 03/15/2018 Pneumococcal Conjugate Vacci ne, 20-valent ([id number]) 10/26/2023 Pneumococcal Conjugate Vacci ne, 7 Valent [...] Progress Notes * Alanna Osborn RPh - 10/29/2023 10:42 AM EDT Medication Therapy Disease Management - Anticoagulation Patient: Elmira Tavares | : 1945 Subjective Patient-Reported Symptoms: Patient Findings Negatives: Signs/symptoms of thrombosis, Signs/symptoms of bleeding, Change in health, Change in alcohol use, Change in activity, Upcoming invasive procedure, Missed doses, Extra doses, Change in medications, Change in diet/appetite, Bruising Objective Current Warfarin Dose As of 10/29/2023 Warfarin maintenance plan: 6 mg (4 mg x 1.5) every Mon, Fri; 4 mg (4 mg x 1) all other days INR Result As of 10/29/2023 INR goal: 1.8-2.2 INR used for dosin.8 (10/29/2023) Assessment & Plan Warfarin Plan As of 10/29/2023 Full warfarin instructions: 6 mg every Mon, Fri; 4 mg all other days No change documented: Alanna Osborn sahil Next INR check: 12/05/2023 Repeat PT/INR in 5 week(s) Weekly dose: not changed Additional Dosing Information: Description Can speak with daughter, Ya (lives with patient)- who manages her medicine Alanna Osborn RPh Clinical Pharmacist 10/29/2023, 10:43 AM documented in this encounter Plan of Treatment Upcoming Encounters Date Type Department Care Team (Late st Contact Info) Description 12/03/2023 10:50 AM EDT Anticoagulation Pharmacy, [place] [address] [place] [address] [facility] [address] [place] [address] 12/08/2023 10:40 AM EDT Office Visit Rheumatology [facility] [address] [place] [address] Arnav Damon MD [address] [facility] [place], [place] [address] 03/24/2024 9:30 AM EDT Office Visit Cardiology, [facility] [address] [facility] [place] [address] Corrine Quinn PA-C 132 [facility] [place] [address] 05/11/2024 10:15 AM EST Office Visit Ophthalmology, [facility] 132 [facility] [place] [address] Doyle Heredia, [address] [facility] [place] [address] 05/18/2024 10:40 AM EST Office Visit Family [facility], [place] [address] [place] [address] Derrek Sparks MD [address] [place] [address] 05/18/2024 1:00 PM EST Office Visit Dermatology, [place] [address] [place] [address] Sully Kearns, PAAmita [address] [place] [address] [place] [address] Health Maintenance Due Date Last Done Comments Zoster Vaccines (2 of 3) 03/11/2016 01/15/2016 COVID-19 Vaccine (2022-24 season) 2023 10/30/2020, 10/09/2020 Diabetic Foot Exam [...] D LEVEL ONCE IN A LIFETIME-USE SMARTSET# [id number] Completed 06/22/2023, 06/01/2023, 01/07/2023, Additional history exists [...] this encounter Medical Devices Implanted Type Area Back Sizer Device Identifier Shelf Expiration Date Model / Serial / Lot Clip Quick 2.8mm 230cm - [id number] Implanted:Qty: 4 on 11/14/2020 by Martina Cancino MD at [facility] [employer] 06/27/2023 HX-202UR.A / / Lens 19.5 [id number] - [id number] - [id number] Implanted:Qty: 1 on 03/26/2021 by Doyle Heredia DO at OR [facility] Right: Eye BRII : SURGICAL 10/29/2025 [id number] / [id number] / Lens 19.5 [id number] - [id number] - [id number] Implanted:Qty: 1 on 03/11/2022 by Doyle Heredia DO at OR [facility] Left: Eye BRII : SURGICAL 10/29/2025 [id number] / [id number] / documented as of this encounter Procedures Procedure Name Priority Date/Time Associated Diagnosis Comments INR FINGERSTICK, POINT OF CARE STAT 10/29/2023 10:50 AM EDT Longstanding persistent atrial fibrillation (HCC) Anticoagulation management encounter jail current use of anticoagulant therapy documented in this encounter Results * INR FINGERSTICK, POINT OF CARE (10/29/2023 10:50 AM EDT) Fingerstick INR 1.8 INR 10:52 AM EDT [facility] Blood 10/29/2023 10:5 0 AM EDT 10/29/2023 10:52 AM EDT Narrative [facility] - 10/29/2023 10:52 AM EDT Therapeutic ranges for non-operative patients: Prophylaxsis/treatment of DVT: (Range:2.0-3.0) Treatment of pulmonary embolism:(Range:2.0-3.0) Prevention of systemic embolism from: -tissue heart valves -acute myocardial infarction -valvular heart disease -atrial fibrillation (Range: 2.0-3.0) Mechanical prosthetic valves: (Range: 2.5-3.5) Alanna Osborn [facility] POINT OF CARE TEST DOCKED DEVICE UNSOLICITED RESULTS [facility] [address] [place] [address] documented in this encounter Visit Diagnoses Diagnosis Anticoagulation management encounter- Primary Encounter for therapeutic drug monitoring 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
--- OUTSIDE RECORDS SUMMARY | 2024-01-06 14:24 | External Medical Summary | Summary of Care ---
Author Name Unknown Organization [facility] Address [address] [place] [address] Phone [phone] Care Team Providers Care Flaring Machine Operator Name Role Phone Derrek Sparks MD Primary Care Provider [phone] Reason for Visit * Reason Comments Follow Up 3 month follow up. D oing about the same. Can't get around that easy with back and legs. Encounter Details Date Type Department Care Team (Late st Contact Info) Description 10/05/2023 9:00 AM EDT Office Visit Cardiology, [facility] [address] [place] [address] Corrine Quinn PA-C [address] [place] [address] Coronary artery disease involving chefornak coronary artery of che[place]nak heart without angina pectoris*; Dyslipidemia, goal LDL below 70; PVD (peripheral vascular disease) ([facility]); HTN, goal below 130/80 Allergies Active Allergy Reactions Criticality Noted Date Comments Tello Inhibitors 05/08/2021 Hyperkalemia resulting in 2 hospitalizations Metformin Diarrhea 11/05/2022 Nadolol Itching 03/17/1999 Corgard itchy Nitroglycerin Other (Please comment) 02/09/2011 Headache that is only relieved with Morphine. Nsaids Nausea/vomiting 03/17/1999 relafen documented as of this encounter (statuses as of 10/05/2023) Medications Medication Sig Dispensed Refills Start Date [...] mouth in the morning. 0 07/22/2020 Active Sold Verio w/Device KitIndications:DM type 2 with diabetic peripheral neuropathy (HCC) Use to check blood sugars daily as directed E11.9 1 Kit 0 10/10/2020 Active Sold Verio In Vitro Strip (Glucose Blood)Indications: DM [...] Oral Tablet (Coreg)Indications :Coronary artery disease involving chefornak coronary artery of chefornak heart without angina pectoris,HTN, goal below 140/90 [...] as of this encounter (statuses as of 10/05/2023) Active Problems Problem Noted Date Diagnosed Date [...] cancer 11/06/2019 Coronary artery disease invo lving chefornak coronary artery of chefornak heart without angina pectoris 07/04/2019 Senile osteoporosis 05/15/2019 Nontoxic uninodular goiter 11/17/2018 Gastroesophageal reflux disease without esophagi tis 11/01/2018 Rheumatoid arthritis 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 03/24/2018 HTN, goal below 140/90 03/24/2018 Old PA (myocardial infarction) 03/24/2018 Type 2 diabetes mellitus [...] as of this encounter (statuses as of 10/05/2023) Resolved Problems Problem Noted Date Diagnosed Date [...] negative rheumatoid factor 07/04/2019 09/27/19 22 Old PA (myocardial infarction) 07/04/2019 09/26/2021 Major depression single epis ode, in partial remission 03/23/2019 08/26/2023 Severe obesity with body mas s index (BMI) of 36.0 to 36.9 with serious comorbidity 11/17/2018 Atherosclerosis of chefornak co ronary artery of che[place]nak heart without angina pectoris 11/17/201806/2021 Arteriosclerotic dementia wi th depressive features 11/17/2018 12/16/2018 Compression fracture of lumbar vertebra 11/10/2018 11/07/2021 Iron deficiency anemia 05/26/201812/16 Colorectal polyps 04/22/2018 09/12/2018 Rheumatoid arthritis 12/28/2017 023 Overview: More specified Dx listed on PL Acute PA 11/19/2017 11/19/2017 Inflammatory polyarthropathy 11/19/2017 12/16/2018 Loosening [...] as of this encounter (statuses as of 10/05/2023) Immunizations Name Administration Dates Next Due COVID-19 [...] Sign Reading Time Taken Comments Blood Pressure 154/76 10/05/2023 8:57 AM EDT Pulse 68 10/05/2023 8:57 AM EDT Temperature - - Respiratory Rate 16 10/05/2023 8:57 AM EDT Oxygen Saturation - - Inhaled Oxygen Concentration - - Weight 86 kg (189 lb 8 oz) 10/05/2023 8:57 AM ED T Height - - Body Mass Index 27.19 08/26/2023 7:39 AM EST documented in this encounter Progress Notes * Corrine Quinn PA-C - 10/05/2023 9:08 AM EDT 10/05/2023 Cardiology F/U: HPI: Patient is a 78-year-old female here today for routine cardiology follow- up. She is accompanied by her . Last clinic evaluation approximately 3 months ago with the undersigned. Primary data typist is Dr. Sumner. History includes: History of ischemic heart disease S/P PTCA to the ramus intermedius complicated by spiral dissection in 1991 Presentation in the Fall 2016 with chest discomfort concerning for angina leading to abnormal nuclear stress testing and ultimately diagnostic cardiac catheterization on May 26, 2017. Coronary anatomy was noted to be right- dominant and nonobstructive. There was a 20% proximal left main stenosis, 10% mid LAD stenosis, 20% distal LAD stenosis, 20% proximal RCA stenosis in an area of moderate calcification, 30% mid RCA stenosis in an area of moderate calcification, 20% ostial stenosis of the right PDA, normal left circumflex, normal ramus intermedius. Josseline procedure course complicated by a transient ischemic attack (left sided facial asymmetry alongwith left upper and left lower paresthesias) MRA of the neck at that time showed patent common carotid and internal carotid arteries. There was some degree of stenosis suggested at the origin of the right vertebral artery and high-grade stenosis of the origin of the right external carotid artery a well as the right subclavian artery. MRI revealed a punctate focus of restricted diffusion consistent with acute ischemia in the right cerebellar hemisphere with no other sites of ischemia observed; this did not correlate with the patient's neurological examination per documentation. Neurological symptoms resolved prior to discharge. 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 and moderate to severe abdominal aortic stenosis by May 26, 2017 cardiac catheterization Nonischemic nuclear stress test 09/2021 Hypertension. Recurrent hyperkalemia with ACEI/ARB, requiring two prior hospital admissions at [facility] secondary to hyperkalemia. Past issues with HCTZ. Headaches with nitrates. Type II diabetes mellitus with neuropathy Dyslipidemia Obesity Mild obstructive sleep apnea (untreated). Chronic renal insufficiency Iron deficiency anemia. Breast cancer status post mastectomy complicated by wound infection requiring a wound vac x 4 months and chemotherapy GERD Paroxysmal afib during admission January 2020, now persistent afib on metoprolol and coumadin. Chronic back pain S/P spinal implant Post op course complicated by a large hematoma (used Lovenox bridge at this time) 13. Mild aortic stenosis Patient presents today feeling relatively well. Her blood pressure has improved from prior evaluation. Ranging 140 to 150's over 70's at home. Today in clinic blood pressure initially elevated but she had not yet taken her morning meds. Trending down on my repeat. She denies acute cardiac complaints. No recent exertional chest pain or unusual shortness of breath. Prior complaints of lower extremity edema improved. No chest pain, shortness of breath, palpitations, dizziness, syncope or near syncope. No orthopnea,PND, or increased lower extremity edema. No fever, chills, cough, hematochezia, melena, or hemoptysis. Review of Systems: See HPI for pertinent positives. All others negative, other than those noted in HPI. Patient Active Problem List Diagnosis Code GENERAL OSTEOARTHROSIS M15.9 Irritable bowel syndrome K58.9 Type 2 diabetes mellitus with hemoglobin A1c goal of less than 7.0% ([facility]) E11.9 Dyslipidemia, goal LDL below 70 E78.5 Encounter for long-term (current) use of medications Z79.899 Anemia D64.9 PVD (peripheral vascular disease) ([facility]) I73.9 Mild sleep apnea G47.30 Type 2 diabetes mellitus with peripheral angiopathy ([facility]) E11.51 Type 2 diabetes mellitus with diabetic neuropathy, without long-term current use of insulin (HCC) E11.40 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 ([facility]) M06.041, M06.042 HTN, goal below 140/90 I10 Old PA (myocardial infarction) I25.2 Gastroesophageal reflux disease without esophagitis K21.9 Nontoxic uninodular goiter E04.1 Senile osteoporosis M81.0 Coronary artery disease involving chefornak coronary artery of che[place]nak heart without angina pectoris I25.10 History of breast cancer Z85.3 Longstanding persistent atrial fibrillation ([facility]) I48.11 Incontinence of feces R15.9 Personal history of fall Z91.81 Diabetic retinopathy of left eye associated with type 2 diabetes mellitus ([facility]) E11.319 Urge and stress incontinence N39.46 Vitamin D deficiency E55.9 Ulcerative pancolitis ([facility]) K51.00 Postprocedural seroma of a musculoskeletal structure following a musculoskeletal system procedure M96.842 Status post renal artery angioplasty Z98.62 Status post lumbar spine operation Z98.890 Osteopenia M85.80 Lumbar radiculopathy M54.16 Long-term use of high-risk medication Z79.899 Internal hemorrhoids K64.8 Hypothyroidism, unspecified E03.9 History of modified radical mastectomy of right breast Z90.11 History of total knee arthroplasty Z96.659 History of repair of right rotator cuff Z98.890 History of cholecystectomy Z90.49 Hemiplegia and hemiparesis following cerebral infarction affecting left non- dominant side ([facility]) I69.354 Diverticulosis of colon K57.30 History of vertebral compression fracture Z87.81 Persistent atrial fibrillation (HCC) I48.19 Atherosclerosis of aorta ([facility]) I70.0 Hypertensive heart disease with chronic diastolic congestive heart failure ([facility]) I11.0, I50.32 Social History Tobacco Use Smoking status: Former Current packs/day: 0.00 Average packs/day: 1 pack/day for 30.0 years (30.0 ttl pk-yrs) Types: Cigarettes Start date: 02/12/1963 Quit date: 02/12/1993 Years since quittin.6 Smokeless tobacco: Never Vaping Use Vaping Use: Never used Substance Use Topics Alcohol use: No Drug use: No Family History Problem Relation Age of Onset Diabetes Mother Asthma Father [...] by mouth every 4 hours as needed. Vitamin C 500 MG Oral Tablet (Ascorbic Acid) Take 1 Tablet by mouth in the morning. Iron (Ferrous Sulfate) 325 (65 Fe) MG Oral Tablet Take 1 Tablet by mouth in the morning. Sold Verio w/Device Kit Use to check blood sugars daily as directed E11.9 1 Kit 0 [facility] Ver[facility] In Vitro Strip (Glucose Blood) Use to check blood sugars twice daily as directed Dx E11.9 200 Strip 3 Cholecalciferol 50 MCG (2000 UT) Oral Capsule DAILY Diclofenac Sodium 1 % External Gel (Voltaren) Apply topically to affected area 4 times a day. Applyto bilateral feet. 150 g 2 Valsartan 160 MG Oral Tablet (Diovan) Take 1 Tablet by mouth daily. cloNIDine HCl 0.1 MG Oral Tablet (Catapres) TAKE 1 TABLET BY MOUTH IN THE MORNING AND 1 TABLET BEFORE BEDTIME. 180 Tablet 3 Sertraline HCl 25 MG Oral Tablet (Zoloft) [...] mouth in the morning. 90 Tablet 3 Warfarin Sodium 4 MG Oral Tablet (Jantoven) TAKE 1 TO 1& 1/2 TABLETS BY MOUTH EVERY DAY OR DIRECTED BY COUMADIN CLINIC 135 Tablet 1 Terazosin HCl 2 MG Oral Capsule TAKE 2 CAPSULES BY MOUTH AT ONCE DAILY AT BEDTIME. 180 Capsule 3 hydrALAZINE HCl 100 MG Oral Tablet TAKE 1 TABLET BY MOUTH IN THE MORNING AND 1 TABLET AT NOON AND 1TABLET BEFORE BEDTIME 270 Tablet 3 Spironolactone 25 MG Oral Tablet (Aldactone) Take 1 Tablet by mouth in the morning. 90 Tablet 3 Dicyclomine HCl 10 MG Oral Capsule (Bentyl) Take 1 capsule by mouth twice per day as needed for abdpain. 60 Capsule 0 [employer] Cleansing Enema Rectal Enema Administer into the rectum daily as needed for Constipation. Magnesium Hydroxide 400 MG/5ML Oral Suspension Take by mouth daily as needed for Constipation. Linzess 145 MCG Oral Capsule (linaCLOtide) Take 1 Capsule by mouth daily before breakfast. (Patientnot taking: Reported on 10/05/2023) 90 Capsule 3 No current facility-administered medications for this visit. Physical Exam BP 154/76 | Pulse 68 | Resp 16 | Wt 86 kg (189 lb 8 oz) | BMI 27.19 kg/m | BSA 2.06 m Blood pressure my repeat 140/70 BP Readings from Last 4 Encounters: 10/05/23 154/76 08/26/23 152/88 07/02/23 180/98 06/11/23 162/80 Wt Readings from Last 3 Encounters: 10/05/23 86 kg (189 lb 8 oz) 08/26/23 88.4 kg (194 lb 14.4 oz) 07/02/23 86.9 kg (191 lb 8 oz) General: No acute distress. A+Ox3. HEENT: Normocephalic. Atraumatic. Conjunctiva and sclera clear. NECK: No carotid bruits. No JVD. Carotid upstrokes are brisk. Heart: Irregularly irregular, II/ ejection fraction murmur noted over right 2nd intercostal space, no rubs. Lungs: Clear to auscultation. No wheezes, rhonchi, rales. Abdomen: Normal bowel sounds. Soft. Nontender. No masses or organomegaly. No abdominal bruits. Extremities: 1+ ankle and pretibial edema, right > left. Chronic stasis changes. Pulses: radial=2/4, posterior tibial=2/4, dorsalis pedis = 2/4. NEURO: No focal deficits. PSYCH: Normal. Lab data/imaging study review: Echocardiogram report reviewed dated December 2022: Interpretation Summary The examination is adequate to evaluate the referral indication. There was rate controlled atrial fibrillation during the examination. The LV wall thickness is mildly increased (concentric). The left ventricular wall motion is normal. Calculated LV ejection Fraction = 64% (bi-plane method of discs). The left atrium is moderately enlarged [...] normal sized. Compared to the previous study dated 09/09/2021, the aortic root diameter was 3.7 cm at that time. Rate controlled atrial fibrillation is present the time of the present study as compared to sinus rhythm on 09/09/2021. Nuclear stress test report reviewed dated October 13, 2021: Myocardial perfusion imaging is normal. Overall left ventricular systolic function was normal without regional wall motion abnormalities. The left ventricular ejection fraction was >70%. Compared to previous study of 2017, ischemia has resolved. Echo report reviewed dated August 2021: The examination is adequate to evaluate the referral indication. The left ventricular cavity size is normal. The LV wall thickness is mildly increased (concentric). The left ventricular wall motion is normal. The qualitative LV ejection fraction is 60-64% (normal). The left ventricular diastolic function is moderately abnormal (grade II). The aortic valve is moderately calcified. Mild aortic valve stenosis is present. Renal vascular scan, report reviewed dated August 2021: On the right:: There is no evidence of hemodynamically significant renal artery stenosis. On the left: There is no evidence of hemodynamically significant renal artery stenosis Latest Reference Range & Units 06/01/23 10:44 Triglycerides <=174 mg/dL 112 Cholesterol <200 mg/dL 234 (H) Non-HDL Cholesterol <=159 mg/dL 184 (H) HDL Cholesterol >49 mg/dL 50 LDL Cholesterol <=129 mg/dL 162 (H) (H): Data is abnormally high Impression/Plan: 78 year old female 1. Coronary artery disease involving chefornak coronary artery of chefornak heart without angina pectoris 2. Ischemic heart disease -Complex coronary artery disease as described above under problem list. 1. Continue aspirin 81 mg daily, statin, and antihypertensives 3. Dyslipidemia, goal LDL below 70 -uncontrolled - resumed atorvastatin -repeat lipids with next labs - ordered. 4. Chronic diastolic congestive heart failure (HCC) Chronic diastolic CHF, NYHA class 2 - compensated 5. HTN, goal below 140/90 -difficult to control/labile. -BP currently improved/controlled. -Renal artery ultrasound negative for stenosis 6. Persistent atrial fibrillation (HCC) -Paroxysmal afib during admission January 2020, now persistent afib on carvedilol and coumadin. -Asymptomatic. Ventricular rates controlled. 7. Aortic stenosis Mild noted on last echo, plan to repeat fall 2023. 8. Vascular disease - continue ASA, statin -would consider establishing vascular surgery? -currently asymptotic. BP and volume status improved with prior titration of furosemide/spironolactone. Repeat CMP and update lipid panel in October 2023 after PCP appt. The patient is to continue all current medications as listed above. No changes were made at today'is. Patient is being evaluated in the cardiology office for ongoing care/risk management for HTN; CAD; dyslipidemia. I spent a total of 30 minutes on the date of service in preparation, delivery, and documentation ofthe care provided to Elmira Tavares excluding any time spent in the performance of separately billed services. The patient agrees to the above plan and will call with additional questions or concerns. ER with all emergencies advised. Follow Up: Return in about 6 months (around 04/05/2024). Corrine Quinn PA-C Department of Cardiology This chart was completed in part utilizing [employer] Speech Voice Recognition Software. Grammatical errors, random word insertions, prounoun errors, and incomplete sentences are an occasional consequence of this system due to software limitations, ambient noise, and hardware issues. Any formal questions or concerns about the content, text, or information contained within the body of this dictation should be directly addressed to the provider for clarification. documented in this encounter Nursing Notes * Avni Urena LPN - 10/05/2023 8:56 AM EDT Patient identified by full name and date of Chief Complaint Patient presents with Follow Up 3 month follow up. Doing about the same. Can't get around that easy with back and legs. Examination Room: 1 Name: Elmira Tavares Date of : (1945). Reason for Visit: 3 month follow up Interim Hospitalization(s): Denies Problems/Concerns: See chief complaint Chest Pain/SOB: See chief complaint [facility] Discussed: Yes [facility] is a way you can talk to your provider online through e-mail. Would you like to sign up? I can activate it for you? ALREADY ACTIVE Patient was instructed to not get up on the exam table until directed and assisted by their provider; patient is to remain seated in the chair/ wheelchair/ exam table for fall prevention and safety reasons. Patient is aware to have assistance to step down off exam table with personnel. Patient voiced full comprehension of instructions. documented in this encounter Plan of Treatment Upcoming Encounters Date Type Department Care Team (Late st Contact Info) Description 10/26/2023 6:20 PM EDT Office Visit [place] [address] [place] [address] Derrek Sparks MD [address] [place] [address] 10/29/2023 10:50 AM EDT Anticoagulation Pharmacy, [place] [address] [place] [address] [facility] [address] [place] [address] 12/08/2023 10:40 AM EDT Office Visit Rheumatology [address] [place] [address] Arnav Damon MD [address] [place] [address] [place] [address] 03/24/2024 9:30 AM EDT Office Visit Cardiology, [facility] [address] [facility] [place] [address] Corrine Quinn PA-C [address] [facility] [place] [address] 05/11/2024 10:15 AM EST Office Visit Ophthalmology, [facility] [address] [facility] [place] [address] Doyle Heredia, [address] [facility] [place] [address] Scheduled Orders Name Type Priority Associated Diagnoses Orde r Schedule LIPID PANEL WITH DIRECT LDL IF TG IS HIGH Lab Routine Dyslipidemia, goal LDL below 70 Coronary artery disease involving chefornak coronary artery of chefornak heart without angina pectoris PVD (peripheral vascular disease) (HCC) HTN, goal below 130/80 Expected: 10/05/2023, Expires: 10/04/2024 COMPREHENSIVE METABOLIC PANEL Lab Routine Dyslipidemia, goal LDL below 70 Coronary artery disease involving chefornak coronary artery of che[place]nak heart without angina pectoris PVD (peripheral vascular disease) (HCC) HTN, goal below 130/80 Expected: 10/05/2023, Expires: 10/04/2024 Health Maintenance Due Date Last Done Comments Zoster Vaccines (2 of 3) 03/11/2016 01/15/2016 Pneumococcal Vaccine: 65+ Years (3 of 3 - PPSV23 or PCV20) 03/15/2019 03/15/2018, 01/12/2002, 06/28/2001, Additional history exists COVID-19 Vaccine (3 - 2022-24 season) 2023 10/30/2020, 10/09/2020 *NEPHROLOGY REFERRAL DUE [...] D LEVEL ONCE IN A LIFETIME-USE SMARTSET# [id number] Completed 06/22/2023, 06/01/2023, 01/07/2023, Additional history exists [...] this encounter Medical Devices Implanted Type Area Loom Mechanic Device Identifier Shelf Expiration Date Model / Serial / Lot Clip Quick 2.8mm 230cm - [id number] Implanted:Qty: 4 on 11/14/2020 by Martina Cancino MD at ENDOSCOPY [facility] [employer] 06/27/2023 [id number] / Lens 19.5 [id number] - [id number] - [id number] Implanted:Qty: 1 on 03/26/2021 by Doyle Heredia DO at OR [facility] Right: Eye BRII : SURGICAL 10/29/2025 [id number] / [id number] / Lens 19.5 [id number] - [id number] - [id number] Implanted:Qty: 1 on 03/11/2022 by Doyle Heredia DO at OR [facility] Left: Eye BRII : SURGICAL 10/29/2025 [id number] / [id number] / documented as of this encounter Visit Diagnoses Diagnosis Coronary artery disease involving chefornak coronary artery of che[place]nak heart without angina pectoris- Primary Dyslipidemia, goal LDL below 70 Other and unspecified hyperlipidemia PVD (peripheral vascular disease) (HCC) Peripheral vascular disease, unspecified HTN, goal below 130/80 Unspecified essential hypertension documented in this encounter Advance Directives Latest Code Status on File Code Status Date Activated Date Inactivated Comments Full Code 03/11/2022 7:56 AM 03/11/2022 2:41 PM Question Answer Comments Discussion of Advance Directives occurred with: Not Discussed due to patient's condition Care Teams Flaring Machine Operator Relationship Specialty Start Date End Date Derrek Sparks MD [address] [place] [address] PCP - General Family Medicine 08/04/22 documented as of this encounter"
--- OUTSIDE RECORDS SUMMARY | 2024-01-06 14:24 | External Medical Summary | Summary of Care ---
Author Name Unknown Organization [facility] Address [address] [place] [address] Phone [phone] Care Team Providers Care Smelter Charger Name Role Phone Derrek Sparks MD Primary Care Provider +1- [phone] Reason for Visit * Reason Onset Date Comments Forms Request 09/07/2023 [facility] Diabetic shoes Encounter Details Date Type Department Care Team (Late st Contact Info) Description 09/07/2023 Telephone [facility] [address] [place] [address] Derrek Sparks MD [address] [place] [address] Forms Request ([facility] /D... Allergies Active Allergy Reactions Criticality Noted Date Comments Tello Inhibitors 05/08/2021 Hyperkalemia resulting in 2 hospitalizations Metformin Diarrhea 11/05/2022 Nadolol Itching 03/17/1999 Corgard itchy Nitroglycerin Other (Please comment) 02/09/2011 Headache that is only relieved with Morphine. 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 Indications: 1 tablet in am 0 07/22/2020 Active [employer] Verio w/Device KitIndications:DM type 2 with diabetic peripheral neuropathy (HCC) Use to check blood sugars daily as directed E11.9 1 Kit 0 10/10/2020 Active [employer] Verio In Vitro Strip (Glucose Blood)Indications :DM type 2 with diabetic peripheral neuropathy (HCC) Use to check blood sugars twice daily as directed Dx E11.9 200 Strip 3 10/10/2020 Active Cholecalciferol 50 MCG (2000 UT) Oral Capsule DAILY 0 03/27/2022 Active Diclofenac Sodium 1 % External Gel (Voltaren)Indicat ions:Left foot pain Apply topically to affected area [...] 01/07/2023 Active Linzess 145 MCG Oral Capsule (linaCLOtide)Briseida cations:Constipat ion, unspecified constipation type,Chronic idiopathic constipation Take 1 Capsule by mouth daily before breakfast. 90 Capsule 3 02/08/2023 Active Carvedilol 25 MG Oral Tablet (Coreg)Indication s:Coronary artery disease involving cra[place] coronary artery of craig heart without angina pectoris,HTN, goal below 140/90 [...] 07/01/2023 Active Furosemide 40 MG Oral Tablet (Lasix)Indication s:HTN, goal below 140/90 Take 1 Tablet by mouth in the morning. 90 Tablet 3 07/02/2023 Active Warfarin Sodium 4 MG Oral Tablet (Jantoven) TAKE 1 TO 1& 1/2 TABLETS BY MOUTH EVERY DAY OR DIRECTED BY COUMADIN CLINIC 135 Tablet 1 07/21/2023 Active Terazosin HCl 2 MG Oral CapsuleIndication s:HTN, goal below 140/80,Dizziness TAKE 2 CAPSULES BY MOUTH AT ONCE DAILY AT BEDTIME. 180 Capsule 3 07/30/2023 Active hydrALAZINE HCl 100 MG Oral TabletIndications :HTN, goal below 140/90 TAKE 1 TABLET BY MOUTH IN THE MORNING AND 1 TABLET AT NOON AND 1 TABLET BEFORE BEDTIME 270 Tablet 3 08/10/2023 Active Spironolactone 25 MG Oral Tablet (Aldactone)Indica tions:HTN, goal below 130/80,Chronic diastolic congestive heart failure (HCC),Persistent atrial fibrillation (HCC) Take 1 Tablet by mouth in the morning. 90 Tablet 3 08/30/2023 Active Dicyclomine HCl 10 MG Oral Capsule (Bentyl)Indicatio ns:Abdominal cramps Take 1 capsule by mouth twice per day as needed for abd pain. 60 Capsule 0 11/11/2022 Discontinue d(Refill) documented as of this encounter (statuses as of 10/04/2023) Active Problems Problem Noted Date Diagnosed Date [...] cancer 11/06/2019 Coronary artery disease invo lving craig coronary artery of craig heart without angina pectoris 07/04/2019 Senile osteoporosis [...] below 70 06/06/2009 Overview: Per Lipid Taxonomy. Type 2 diabetes mellitus wit h hemoglobin A1c goal of less than 7.0% 04/25/2009 Overview: Per Diabetes Taxonomy. ICD-10 update of inactive term GENERAL OSTEOARTHROSIS Irritable bowel syndrome documented as of this encounter (statuses as of 10/04/2023) Resolved Problems Problem Noted Date Diagnosed Date [...] 36.9 with serious comorbidity 11/17/2018 Atherosclerosis of craig co ronary artery of craig heart without angina pectoris 11/17/201806/2021 Arteriosclerotic dementia [...] Obesity Taxonomy ICD-10 update of inactive diagnosis HTN, GOAL BELOW 130/80 05/21/200902/17 Overview: Modified per HTN protocol #16. ADVANCE DIRECTIVE INFORMATION 10/05/2006 11/19/2017 Overview: No, [...] as of this encounter (statuses as of 10/04/2023) Immunizations Name Administration Dates Next Due COVID-19 mRNA, LNP-s, No Pre serve, 2-Dose Series (Pfizer) 10/30/2020,10/09/2020 DT - Diptheria/Tetanus (PEDS) 04/13/2002 Diptheria/Tetanus (Adult) 06/28/1989 PPD 01/19/2018 Pneumococcal Conjugate Vacc, 13 Valent (Prevnar) 03/15/2018 Pneumococcal Conjugate Vacci ne, 7 Valent 07/12/2014 Pneumococcal Polysaccharide PPV23 (Pneumovax) 01/12/2002,06/28/2001,03/25/1993 Seasonal Influenza Virus Vac cine, Unspecified Formulation 03/13/2021,04/11/2020,05/10/2019,03/15,04/10/2017,03/25/2016,03/26/2015 ,04/13/2002,06/17/2001,04/08/1998,1106/1994 Seasonal Influenza, PF, 6 M & above, [...] encounter Miscellaneous Notes * Telephone Encounter - Chandrika Edgar LPN - 10/04/2023 3:34 PM EDT Faxed on 10/01/2023. There was no mention of diabetic shoes in any other providers notes. Have not heard anything back from [facility] * Telephone Encounter - Derrek Sparks MD - 10/01/2023 7:24 AM EDT I have signed paperwork. It is at my desk. However, the last that I saw patient was 09/08/22. That note can be sent but I suspect that it will not be good enough for [facility] due to being over a year ago. As everyone in the office should be aware, pt's need office visit notes as well as the form signed. Could someone please reviewthe notes of the providers from our office that have seen the patient in the past year to see if there is documentation of need for diabetic shoes? If so, please include those notes and see if [facility] needs that physician to be the one to sign the form that they have sent. If so, pleaseget the form to that provider. If there is no documentation of need, pt will need an office visit. Please call to explain that to patient and arrange a visit. * Telephone Encounter - Nilsa Allred OSA - 09/30/2023 11:50 AM EDT Princess called regarding status of paperwork for patients diabetic shoes. Paperwork was received 09/07/2023. Escalation email sent. * Telephone Encounter - Beverley Layton OSA - 09/23/2023 11:13 AM EDT Bhargavi calling again for an update in regards to forms that need to be filled out by PCP. Pls check into this and contact with an update. Call back:[phone] * Telephone Encounter - Edwige Alvarez LPN - 09/15/2023 10:[address] Sparks, please fill out the form if you haven't done so. No further documentation since 09/08 that's been completed. * Telephone Encounter - Mitesh Gibbs OSA - 09/15/2023 10:09 AM EDT Patient calling in to check on the status of previous message. Patient Called within forms 5-7 business day turnaround timeframe. Reminded patient of 5-7 businessday policy for forms requests. * Telephone Encounter - Kina Willard OSA - 09/09/2023 12:35 PM EDT 09/09/23 Bhargavi from [facility] called and asked if we rec paperwork for pt. We did rec the paperwork and the forms are on the provider's desk. Fax paperwork and OVN to [phone]. * Telephone Encounter - Maddy Bhagat LPN - 09/07/2023 7:11 AM EDT [facility] forms for Diabetic shoes were placed on the providers desk documented in this encounter Plan of Treatment Upcoming Encounters Date Type Department Care Team (Late st Contact Info) Description 10/05/2023 9:00 AM EDT Office Visit Cardiology, [facility] [address] [place] [address] Corrine Quinn PA-C [address] [place] [address] 10/26/2023 6:20 PM EDT Office Visit [place] [address] [place] [address] Derrek Sparks MD [address] [place] [address] 10/29/2023 10:50 AM EDT Anticoagulation Pharmacy, [place] [address] [place] [address] [facility] [address] [place] [address] 12/08/2023 10:40 AM EDT Office Visit Rheumatology [address] [place] [address] Arnav Damon MD [address] [place] [address] [place] [address] 05/11/2024 10:15 AM EST Office Visit Ophthalmology, [facility] [address] [place] [address] Doyle Heredia, DO [address] [place] [address] Health Maintenance Due Date Last Done Comments Zoster Vaccines (2 of 3) 03/11/2016 01/15/2016 Pneumococcal Vaccine: 65+ Years (3 of 3 - PPSV23 or PCV20) 03/15/2019 03/15/2018, 01/12/2002, 06/28/2001, Additional history exists COVID-19 Vaccine (3 - 2022- season) 2023 [...] D LEVEL ONCE IN A LIFETIME-USE SMARTSET# [id number] Completed 06/22/2023, 06/01/2023, 01/07/2023, Additional history exists [...] this encounter Medical Devices Implanted Type Area Order Expediter Device Identifier Shelf Expiration Date Model / Serial / Lot Clip Quick 2.8mm 230cm - [id number] Implanted:Qty: 4 on 11/14/2020 by Martina Cancino MD at ENDOSCOPY [facility] [employer] 06/27/2023 [id number]-202UR.A / / Lens 19.5 [id number] - [id number] - [id number] Implanted:Qty: 1 on 03/26/2021 by Doyle Heredia DO at OR [facility] Right: Eye BRII : SURGICAL 10/29/2025 [id number] / [id number] / Lens 19.5 [id number] - [id number] - [id number] Implanted:Qty: 1 on 03/11/2022 by Doyle Heredia DO at OR [facility] Left: Eye BRII : SURGICAL 10/29/2025 [id number] / [id number] / documented as of this encounter Advance Directives Latest Code Status on File Code Status Date Activated Date Inactivated Comments Full Code 03/11/2022 7:56 AM 03/11/2022 2:41 PM Question Answer Comments Discussion of Advance Directives occurred with: Not Discussed due to patient's condition Care Teams Smelter Charger Relationship Specialty Start Date End Date Derrek Sparks MD [address] [place] [address] PCP - General Family Medicine 08/04/22 documented as of this encounter
--- OUTSIDE RECORDS SUMMARY | 2024-01-06 14:24 | External Medical Summary | Summary of Care ---
Author Name Unknown Organization [facility] Address [address] [place] [address] Phone [phone] Care Team Providers Care Tire Shop Manager Name Role Phone Derrek Sparks MD Primary Care Provider [phone]- [phone] Reason for Visit * Reason Comments Dosage Adjustment In Person (Anticoag Cl inic) Encounter Details Date Type Department Care Team (Latest Contact Info) Description 10/01/2023 11:10 AM EDT Anticoagulation Pharmacy, [place] [address] [place] [address] [facility] [address] [place] [address] Longstanding persistent atrial fibrillation (HCC)*; Anticoagulation management encounter; 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 Nsaids Nausea/vomiting 03/17/1999 relafen documented as of this encounter (statuses as of 10/01/2023) Medications Medication Sig Dispensed Refills Start Date [...] TabletIndications: 1 tablet in am Take 1 Tab by mouth 2 times a day. Indications: 1 tablet in am 0 07/22/2020 Active Tip or Skip Verio w/Device KitIndications:DM type 2 with diabetic peripheral neuropathy (HCC) Use to check blood sugars daily as directed E11.9 1 Kit 0 10/10/2020 Active Tip or Skip Verio In Vitro Strip (Glucose Blood)Indications: DM [...] 02/08/2023 Active Carvedilol 25 MG Oral Tablet (Coreg)Indications :Coronary artery disease involving [place] coronary artery of [place] heart without angina pectoris,HTN, goal below 140/90 [...] as of this encounter (statuses as of 10/01/2023) Active Problems Problem Noted Date Diagnosed Date [...] Coronary artery disease invo lving [place] coronary artery of [place] heart without angina pectoris 07/04/2019 Senile osteoporosis 05/15/2019 Nontoxic uninodular goiter 11/17/2018 Gastroesophageal reflux disease without esophagi tis 11/01/2018 Rheumatoid arthritis 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 03/24/2018 HTN, goal below 140/90 03/24/2018 Old AR (myocardial infarction) 03/24/2018 Type 2 diabetes mellitus [...] as of this encounter (statuses as of 10/01/2023) Resolved Problems Problem Noted Date Diagnosed Date [...] negative rheumatoid factor 07/04/2019 09/27/19 22 Old AR (myocardial infarction) 07/04/2019 09/26/2021 Major depression single epis ode, in partial remission 03/23/2019 08/26/2023 Severe obesity with body mas s index (BMI) of 36.0 to 36.9 with serious comorbidity 11/17/2018 Atherosclerosis of [place] co ronary artery of [place] heart without angina pectoris 11/17/201806/2021 Arteriosclerotic dementia wi th depressive features 11/17/2018 12/16/2018 Compression fracture of lumbar vertebra 11/10/2018 11/07/2021 Iron deficiency anemia 05/26/201812/16 Colorectal polyps 04/22/2018 09/12/2018 Rheumatoid arthritis 12/28/2017 023 Overview: More specified Dx listed on PL Acute AR 11/19/2017 11/19/2017 Inflammatory polyarthropathy 11/19/2017 12/16/2018 Loosening [...] as of this encounter (statuses as of 10/01/2023) Immunizations Name Administration Dates Next Due COVID-19 [...] Progress Notes * Alanna Osborn RPh - 10/01/2023 11:14 AM EDT Images from the original note [...] Bruising Objective Current Warfarin Dose As of 10/01/2023 Warfarin maintenance plan: 6 mg (4 mg x 1.5) every Mon, Fri; 4 mg (4 mg x 1) all other days INR Result As of 10/01/2023 INR goal: 1.8-2.2 INR used for dosin.5 (10/01/2023) Assessment & Plan Warfarin Plan As of 10/01/2023 Full warfarin instructions: 4/5: 8 mg; Otherwise 6 mg every Mon, Fri; 4 mg all other days Next INR check: 10/29/2023 Repeat PT/INR in 4 week(s) Weekly dose: not changed Additional Dosing Information: Description Can speak with daughterYa (lives with patient)- who manages her medicine Alanna Osborn [facility] Clinical Pharmacist 10/01/2023, 11:14 AM documented in this encounter Plan of Treatment Upcoming Encounters Date Type Department Care Team (Late st Contact Info) Description 10/05/2023 9:00 AM EDT Office Visit Cardiology, [facility] [address] [place] [address] Corrine Quinn PA-C [address] [facility] [place] [address] 10/26/2023 6:20 PM EDT Office Visit Family [facility], [place] [address] [place] [address] Derrek Sparks MD [address] [place] [address] 10/29/2023 10:50 AM EDT Anticoagulation Pharmacy, [place] [address] [place] [address] [facility] [address] [place] [address] 12/08/2023 10:40 AM EDT Office Visit Rheumatology [address] [place] [address] Arnav Damon MD [address] [place] [address] [place] [address] 05/11/2024 10:15 AM EST Office Visit Ophthalmology, [facility] [address] [facility] [place] [address] Doyle Heredia DO [address] [facility] [place] [address] Scheduled Orders Name Type Priority Associated Diagnoses Orde r Schedule PT INR Lab Routine Longstanding persistent atrial fibrillation (HCC) Anticoagulation management encounter 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 26 Occurrences starting 10/01/2023 until 09/30/2024 INR FINGERSTICK, POINT OF CARE Point of Care Testing - Unsolicited Results STAT Longstanding persistent atrial fibrillation (HCC) Anticoagulation management encounter halfway current use of anticoagulant therapy Every 2 Weeks for 26 Occurrences starting 10/01/2023 until 09/30/2024, 1 completed Health Maintenance Due Date Last Done Comments Zoster Vaccines (2 of 3) 03/11/2016 01/15/2016 Pneumococcal Vaccine: 65+ Years (3 of 3 - PPSV23 or PCV20) 03/15/2019 03/15/2018, 01/12/2002, 06/28/2001, Additional history exists COVID-19 Vaccine ( - 2022- season) 2023 10/30/2020, 10/09/2020 *NEPHROLOGY [...] D LEVEL ONCE IN A LIFETIME-USE SMARTSET# [id number] Completed 06/22/2023, 06/01/2023, 01/07/2023, Additional history exists [...] this encounter Medical Devices Implanted Type Area Funeral [employer] Licensee Device Identifier Shelf Expiration Date Model / Serial / Lot Clip Quick 2.8mm 230cm - [id number] Implanted:Qty: 4 on 11/14/2020 by Martina Cancino MD at ENDOSCOPY [facility] [employer] 06/27/2023 HX-202UR.A / / Lens 19.5 [id number] - [id number] - [id number] Implanted:Qty: 1 on 03/26/2021 by Doyle Heredia DO at OR [facility] Right: Eye BRII : SURGICAL 10/29/2025 [id number] / [id number] / Lens 19.5 [id number] - [id number] - [id number] Implanted:Qty: 1 on 03/11/2022 by Doyle Heredia DO at OR [facility] Left: Eye BRII : SURGICAL 10/29/2025 [id number] / [id number] / documented as of this encounter Procedures Procedure Name Priority Date/Time Associated Diagnosis Comments INR FINGERSTICK, POINT OF CARE STAT 10/01/2023 11:17 AM EDT Longstanding persistent atrial fibrillation (HCC) Anticoagulation management encounter halfway current use of anticoagulant therapy documented in this encounter Results * INR FINGERSTICK, POINT OF CARE (10/01/2023 11:17 AM EDT) Fingerstick INR 1.5 INR 11:20 AM EDT LABORATORY [facility] 56-01 Blood 10/01/2023 11:1 7 AM EDT 10/01/2023 11:20 AM EDT Narrative LABORATORY JONATH[facility]OM[facility] 56-01 - 10/01/2023 11:20 AM EDT Therapeutic ranges for non-operative patients: Prophylaxsis/treatment of DVT: (Range:2.0-3.0) Treatment of pulmonary embolism:(Range:2.0-3.0) Prevention of systemic embolism from: -tissue heart valves -acute myocardial infarction -valvular heart disease -atrial fibrillation (Range: 2.0-3.0) Mechanical prosthetic valves: (Range: 2.5-3.5) Alanna Osborn [facility] LAB POINT OF CARE TEST DOCKED DEVICE UNSOLICITED RESULTS [facility] [address] [place] [address] documented in this encounter Visit Diagnoses Diagnosis Longstanding persistent atrial fibrillation (HCC)- Primary Anticoagulation management encounter Encounter for therapeutic drug monitoring 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 documented in this encounter Advance Directives Latest Code Status on File Code Status Date Activated Date Inactivated Comments Full Code 03/11/2022 7:56 AM 03/11/2022 2:41 PM Question Answer Comments Discussion of Advance Directives occurred with: Not Discussed due to patient's condition Care Teams Tire Shop Manager Relationship Specialty Start Date End Date Derrek Sparks MD [address] [place] [address] PCP - General Family Medicine 08/04/22 documented as of this encounter"
--- OUTSIDE RECORDS SUMMARY | 2024-01-06 14:24 | External Medical Summary | Summary of Care ---
Author Name Unknown Organization [facility] Address [address] [place] [address] Phone [phone] Care Team Providers Care Group Leader Name Role Phone Derrek Sparks MD Primary Care Provider [phone]- [phone] Reason for Visit * Reason Onset Date Comments Forms Request 10/04/2023 Diabetic shoes Encounter Details Date Type Department Care Team (Late st Contact Info) Description 10/04/2023 Telephone [facility] [address] [place] [address] Derrek Sparks MD [address] [place] [address] Forms Request (Diabetic shoes) Allergies Active Allergy Reactions Criticality Noted Date [...] mouth in the morning. 0 07/22/2020 Active SiftyNetTouch Verio w/Device KitIndications:DM type 2 with diabetic peripheral neuropathy (HCC) Use to check blood sugars daily as directed E11.9 1 Kit 0 10/10/2020 Active [employer]if[employer] Verio In Vitro Strip (Glucose Blood)Indications: DM [...] Oral Tablet (Coreg)Indications :Coronary artery disease involving [place] coronary artery of [place] heart without angina pectoris,HTN, goal below 140/90 [...] cancer 11/06/2019 Coronary artery disease invo lving [place] coronary artery of [place] heart without angina pectoris 07/04/2019 Senile osteoporosis [...] 36.9 with serious comorbidity 11/17/2018 Atherosclerosis of [place] co ronary artery of [place] heart without angina pectoris 11/17/201806/2021 Arteriosclerotic dementia [...] encounter Miscellaneous Notes * Telephone Encounter - Derrek Sparks MD - 10/04/2023 4:33 PM EDT Those notes are from a cardiology appt and don't mention diabetic shoes - but they are signed and at my desk * Telephone Encounter - Maddy Bhagat LPN - 10/04/2023 2:47 PM EDT Printed out an OV notes as requested per Fax note for dr Sparks to sign. Placed on doctor's desk to review and sign . Thanks documented in this encounter Plan of Treatment Upcoming Encounters Date Type Department Care Team (Late st Contact Info) Description 10/26/2023 6:20 PM EDT Office Visit [place] [address] [place] [address] Derrek Sparks MD [address] [place] [address] 10/29/2023 10:50 AM EDT Anticoagulation Pharmacy, [place] [address] [place] [address] [facility] [address] [place] [address] 12/08/2023 10:40 AM EDT Office Visit Rheumatology [place] [id number] [facility] [place] [address] Arnav Damon MD [facility] [place] [address] 03/24/2024 9:30 AM EDT [facility], [facility] [place] [address] Corrine Quinn PA-C [address] [place] [address] 05/11/2024 10:15 AM EST Office Visit Ophthalmology, [facility] [address] [facility] [place] [address] Doyle Heredia, DO [address] [facility] [place] [address] Health Maintenance Due Date Last Done Comments Zoster Vaccines (2 of 3) 03/11/2016 01/15/2016 Pneumococcal Vaccine: 65+ Years (3 of 3 - PPSV23 or PCV20) 03/15/2019 03/15/2018, 01/12/2002, 06/28/2001, Additional history exists COVID-19 Vaccine (3 - season) 2023 10/30/2020, 10/09/2020 *NEPHROLOGY REFERRAL DUE TO RESISTANT HTN 05/10/2023 Diabetic Foot Exam 07/07/2023 07/07/2022, 0 10/22/2020, 07/04/2019, Additional history exists Depression Screening 09/09/2023 09/08/2022 HbA1c 12/01/2023 06/01/2023, 12/26, 08/10/2022, Additional history exists Diabetic Eye Exam 04/29/2024 04/29/2023, , 04/29/2023, Additional history exists DXA Scan 05/03/2024 05/03/2023, 11/2022, 04/29/2021, Additional history exists Albumin/Creatinine Ratio 06/01/202406/01/ 023, 05/07/2022, 12/06/2020, Additional history exists TSH [...] D LEVEL ONCE IN A LIFETIME-USE SMARTSET# [id number] Completed 06/22/2023, 06/01/2023, 01/07/2023, Additional history exists [...] this encounter Medical Devices Implanted Type Area Muffler Mechanic Device Identifier Shelf Expiration Date Model / Serial / Lot Clip Quick 2.8mm 230cm - [id number] Implanted:Qty: 4 on 11/14/2020 by Martina Cancino MD at ENDOSCOPY [facility] [email or web address] 06/27/2023 HX-202UR.A / / Lens 19.5 [id number] - [id number] - [id number] Implanted:Qty: 1 on 03/26/2021 by Doyle Heredia DO at OR [facility] Right: Eye BRII : SURGICAL 10/29/2025 [id number] / [id number] / Lens 19.5 [id number] - [id number] - [id number] Implanted:Qty: 1 on 03/11/2022 by Doyle Heredia DO at OR [facility] Left: Eye BRII : SURGICAL 10/29/2025 [id number] / [id number] / documented as of this encounter Advance Directives Latest Code Status on File Code Status Date Activated Date Inactivated Comments Full Code 03/11/2022 7:56 AM 03/11/2022 2:41 PM Question Answer Comments Discussion of Advance Directives occurred with: Not Discussed due to patient's condition Care Teams Group Leader Relationship Specialty Start Date End Date Derrek Sparks MD [address] [facility] [place] [address] PCP - General Family Medicine 08/04/22 documented as of this encounter
--- OUTSIDE RECORDS SUMMARY | 2024-01-06 14:24 | External Medical Summary | Summary of Care ---
Author Name Unknown Organization [facility] Address [address] [place] [address] Phone [phone] Care Team Providers Care Tour Production Supervisor Name Role Phone Derrek Sparks MD Primary Care Provider [phone] Reason for Visit * Reason Onset Date Comments Forms Request 09/07/2023 [facility] Diabetic shoes Encounter Details Date Type Department Care Team (Late st Contact Info) Description 09/07/2023 Telephone [facility] [address] [place] [address] Derrek Sparks MD [address] [place] [address] Forms Request ([facility] /D... Allergies Active Allergy Reactions [...] 1 tablet in am 0 07/22/2020 Active Sonda41 Verio w/Device KitIndications:DM type 2 with diabetic peripheral neuropathy (HCC) Use to check blood sugars daily as directed E11.9 1 Kit 0 10/10/2020 Active Sonda41 Verio In Vitro Strip (Glucose Blood)Indications :DM [...] it will not be good enough for [facility] due to being over a year ago. [...] please include those notes and see if [facility] needs that physician to be the one to sign the form that they have sent. If so, pleaseget the form to that provider. If there is no documentation of need, pt will need an office visit. Please call to explain that to patient and arrange a visit. * Telephone Encounter - Nilsa Allred OSA - 09/30/2023 11:50 AM EDT Ally called regarding status of paperwork for patients diabetic shoes. Paperwork was received 09/07/2023. Escalation email sent. * Telephone Encounter - Beverley Layton OSA - 09/23/2023 11:13 AM EDT Bhargavi calling again for an update in regards to forms that need to be filled out by PCP. Pls check into this and contact with an update. Call back:[phone] * Telephone Encounter - Edwige Alvarez LPN [...] 09/09/2023 12:35 PM EDT 09/09/23 Bhargavi from [facility] called and asked if we rec paperwork for pt. We did rec the paperwork and the forms are on the provider's desk. Fax paperwork and OVN to [phone]. * Telephone Encounter - Maddy Bhgaat LPN - 09/07/2023 7:11 AM EDT [facility] forms for Diabetic shoes were placed on the providers desk documented in this encounter Plan of Treatment Upcoming Encounters Date Type Department Care Team (Late st Contact Info) Description 10/01/2023 11:10 AM EDT [facility]tico[facility], [place] [address] [place] [address] [place], [facility] [address] [place] [address] 10/05/2023 9:00 AM EDT Office Visit Cardiology, [facility] [address] [facility] [place] [address] Corrine Quinn PA-C [address] [facility] [place] [address] 10/26/2023 6:20 PM EDT Office Visit Family Practice, [place] [address] [place] [id number] Derrek Sparks MD [address] [place] [facility] [place] [address] 12/08/2023 10:40 AM EDT Office Visit Rheumatology [address] [place] [address] Arnav Damon MD [address] [place] [address] [place] [address] 05/11/2024 10:15 AM EST Office Visit Ophthalmology, [facility] [address] [facility] [place] [address] Doyle Heredia, DO [address] [place] [address] Health Maintenance Due Date Last Done Comments [...] D LEVEL ONCE IN A LIFETIME-USE SMARTSET# [id number] Completed 06/22/2023, 06/01/2023, 01/07/2023, Additional history exists [...] this encounter Medical Devices Implanted Type Area Solar Maintenance Technician Device Identifier Shelf Expiration Date Model / Serial / Lot Clip Quick 2.8mm 230cm - [id number] Implanted:Qty: 4 on 11/14/2020 by Martina Cancino MD at ENDOSCOPY [facility] [employer] [facility] 06/27/2023 [id number] / / Lens 19.5 [id number] - [id number] - [id number] Implanted:Qty: 1 on 03/26/2021 by Doyle Heredia DO at OR [facility] Right: Eye BRII : SURGICAL 10/29/2025 [id number] / [id number] / Lens 19.5 [id number] - [id number] - [id number] Implanted:Qty: 1 on 03/11/2022 by Doyle Heredia DO at OR [facility] Left: Eye BRII : SURGICAL 10/29/2025 [id number] / [id number] / documented as of this encounter Advance Directives Latest Code Status on File Code Status Date Activated Date Inactivated Comments Full Code 03/11/2022 7:56 AM 03/11/2022 2:41 PM Question Answer Comments Discussion of Advance Directives occurred with: Not Discussed due to patient's condition Care Teams Tour Production Supervisor Relationship Specialty Start Date End Date Derrek Sparks MD [address] [place] [address] PCP - General Family Medicine 08/04/22 documented as of this encounter
--- OUTSIDE RECORDS SUMMARY | 2024-01-06 14:24 | External Medical Summary ---
Author Name Unknown Address Unknown Organization K01:[facility] [place] [address] [facility] [place] [address] Laboratory Report Ordering Provider Test Date Status TONY ELY 10/19/2023 08:00:01 Final Observation Date Value Abnormality Reference (Units ) Status BUN 10/19/2023 08:00:01 20 6-20 (mg/dL) Final Creatinine 10/19/2023 08:00:01 1.0 0.5-1.0 (mg/dL) Final Glomerular filtration rate/1.73 sq M.predicted [Volume Rate/Area] in Serum, Plasma or Blood by Creatinine-based formula (CKD-EPI) 10/19/2023 08:00:01 57 Below low normal >=60 (mL/min) Final eGFR is calculated based on the CKD-EPI 2020 equation Sodium 10/19/2023 08:00:01 138 135-146 (m mol/L) Final Potassium 10/19/2023 08:00:01 3.6 3.5-5.1 (m mol/L) Final Cl 10/19/2023 08:00:01 95 Below low normal 98- 107 (mmol/L) Final CO2 10/19/2023 08:00:01 29 22-32 (mmo l/L) Final Anion gap 10/19/2023 08:00:01 14 7-15 (mmol /L) Final Glucose 10/19/2023 08:00:01 253 Above high normal 70 -120 (mg/dL) Final Albumin 10/19/2023 08:00:01 4.5 3.8-5.0 (g /dL) Final AST (Aspartate aminotransferase) 10/19/2023 08:00:01 27 10-35 (U/L) Fin al Alk Phos 10/19/2023 08:00:01 143 Above high normal 35 -130 (U/L) Final Bilirubin, Total 10/19/2023 08:00:01 1.6 Above high no rmal <=1.2 (mg/dL) Final Calcium 10/19/2023 08:00:01 9.9 8.4-10.2 ( mg/dL) Final Protein 10/19/2023 08:00:01 7.2 6.0-8.3 (g /dL) Final ALT (Alanine aminotransferase) 10/19/2023 08:00:01 22 10-35 (U/L) José asher Performing Location [facility] [place] [facility] [address] [facility] [address]
--- OUTSIDE RECORDS SUMMARY | 2024-01-06 14:24 | External Medical Summary | Summary of Care ---
Author Name Unknown Organization [facility] Address [address] [place] [address] Phone [phone] Care Team Providers Care Warehouse Picker Name Role Phone Derrek Sparks MD Primary Care Provider [phone]- [phone] Reason for Visit * Reason Comments Status Check Encounter Details Date Type Department Care Team (Late st Contact Info) Description 09/08/2022 2:40 PM EDT Office Visit [facility] [address] [place] [address] Derrek Sparks MD [address], [place] [id number] Type 2 diabetes mellitus with hemoglobin A1c goal of less than 7.0% (HCC)*; DM type 2 with diabetic peripheral neuropathy (HCC); Diabetes mellitus with peripheral angiopathy (HCC); Major depression single episode, in partial remission (HCC); Senile osteoporosis; Hypothyroidism, unspecified type; Dyslipidemia, goal LDL below 70; Coronary artery disease involving [place] coronary artery of [place] heart without angina pectoris; HTN, goal below 140/90; Persistent atrial fibrillation (HCC); Encounter for long-term (current) use of medications; Hypomagnesemia; History of iron deficiency anemia Allergies Active Allergy Reactions Criticality Noted Date Comments Tello Inhibitors 05/08/2021 Hyperkalemia resulting in 2 hospitalizations Metformin Diarrhea 11/05/2022 Nadolol Itching 03/17/1999 Corgard itchy Nitroglycerin Other (Please comment) 02/09/2011 Headache that is only relieved with Morphine. Nsaids Nausea/vomiting 03/17/1999 relafen documented as of this encounter (statuses as of 10/01/2023) Medications Medication Sig Dispensed Refills Start Date End Date Status ONETOUCH ULTRASOFT LANCETS MISCIndications :DM type 2 with diabetic peripheral neuropathy (HCC) Use to check blood sugars daily as directed E11.9 1 Box Dosing Unit 11 9 Active Aspirin 81 MG TabletIndicatio ns:in am Take 1 Tablet by mouth in [...] (Ferrous Sulfate) 325 (65 Fe) MG Oral TabletIndicatio ns:1 tablet in am Take 1 Tab by mouth 2 times a day. Indications: 1 tablet in am 0 1 Active OneTouch Verio w/Device KitIndications: DM type 2 with diabetic peripheral neuropathy (HCC) Use to check blood sugars daily as directed E11.9 1 Kit 0 1 Active OneTouch Verio In Vitro Strip (Glucose Blood)Indicatio ns:DM type 2 with diabetic peripheral neuropathy (HCC) Use to check blood sugars twice daily as directed Dx E11.9 200 Strip 3 1 Active Cholecalciferol 50 MCG (1999 UT) Oral Capsule DAILY 0 2 Active Diclofenac Sodium 1 % External Gel (Voltaren)Indic ations:Left foot pain Apply topically to affected area 4 times a day. Apply to bilateral feet. 150 g 2 3 Active Valsartan 160 MG Oral Tablet (Diovan) Take 1 Tablet by mouth daily. 0 3 Active Systane 0.4-0.3 % Ophthalmic Solution (Polyethyl Glycol-Propyl Glycol) Instill 1 Drop into both eyes in the morning and 1 Drop at noon and 1 Drop in the evening and 1 Drop before bedtime. 0 11/06/19 Discontinued(Med ication List Clean Up) Atorvastatin Calcium 80 MG Oral Tablet (Lipitor)Indica tions:Dyslipide ruthann, goal LDL below 70 Take 1 Tablet by mouth daily. 90 Tablet 3 1 11/06/19 23 Discontinued(Med ication List Clean Up) Warfarin Sodium 4 MG Oral Tablet (Coumadin) Take 1 to 1.5 tablets (4mg to 6mg) by mouth daily or as directed by Coumadin clinic 135 Tablet 3 2 11/14/19 23 Discontinued Furosemide 20 MG Oral Tablet (Lasix) Take 1 Tablet by mouth in the morning. Take an additional tablet in the afternoon as directed or as needed for increased swelling. 100 Tablet 3 2 05/10/20 23 Discontinued(Ref ill) Magnesium Oxide 400 (240 Mg) MG Oral Tablet Take 1 Tablet by mouth in the morning. 0 11/06/19 Discontinued(Med ication List Clean Up) Carvedilol 25 MG Oral Tablet (Coreg) Take by mouth 1 Tablet in the morning AND 1 Tablet before bedtime. 68 Tablet 11 2 10/13/19 Discontinued Sertraline HCl 25 MG Oral Tablet (Zoloft)Indicat ions:Major depression single episode, in partial remission (HCC) Take 1 tablet by mouth daily. 90 Tablet 5 2 01/03/20 23 Discontinued cloNIDine HCl 0.1 MG Oral Tablet (Catapres) Take by mouth 1 Tablet in the morning AND 1 Tablet before bedtime. 68 Tablet 11 2 10/27/19 23 Discontinued amLODIPine Besylate 2.5 MG Oral Tablet (Norvasc) Take by mouth 1 Tablet in the morning AND 1 Tablet before bedtime. 60 Tablet 11 2 10/27/19 23 Discontinued(Ref ill) Levothyroxine Sodium 25 MCG Oral Tablet (Levoxyl) Take by mouth 1 Tablet in the morning. (at least 30 min prior to breakfast or other meds). 90 Tablet 3 2 11/14/19 23 Discontinued Pantoprazole Sodium 40 MG Oral Tablet Delayed Release (Protonix) TAKE ONE TABLET BY MOUTH DAILY 90 Tablet 3 3 07/01/19 24 Discontinued Terazosin HCl 2 MG Oral CapsuleIndicati ons:HTN, goal below 140/80,Dizzines s TAKE TWO CAPSULES BY MOUTH ONCE DAILY AT BEDTIME 180 Capsule 3 3 07/30/19 24 Discontinued Gabapentin 300 MG Oral Capsule (Neurontin) TAKE 1 CAPSULE BY MOUTH THREE TIMES DAILY 270 Capsule 3 3 11/06/19 23 Discontinued(Med ication List Clean Up) Dicyclomine HCl 10 MG Oral Capsule (Bentyl)Indicat ions:Abdominal cramps Take 1 capsule by mouth twice per day as needed for abd pain. 60 Capsule 0 3 11/12/19 23 Discontinued(Ref ill) Empagliflozin 10 MG Oral Tablet (Jardiance) Take 1 Tablet by mouth in the morning. 30 Tablet 11 3 01/08/20 23 Discontinued metFORMIN HCl ER 500 MG Oral Tablet Extended Release 24 Hour (Glucophage XR)Indications: DM type 2 with diabetic peripheral neuropathy (HCC),Type 2 diabetes mellitus with hemoglobin A1c goal of less than 7.0% (HCC) Take 1 by mouth daily 90 Tablet 3 3 11/06/19 23 Discontinued(Adv erse reaction) documented as of this encounter (statuses as [...] cancer 11/06/2019 Coronary artery disease invo lving [place] coronary artery of [place] heart without angina pectoris 07/04/2019 Senile osteoporosis 05/15/2019 Nontoxic uninodular goiter 11/17/2018 Gastroesophageal reflux disease without esophagi tis 11/01/2018 Rheumatoid arthritis 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 03/24/2018 HTN, goal below 140/90 03/24/2018 Old ME (myocardial infarction) 03/24/2018 Type 2 diabetes mellitus [...] negative rheumatoid factor 07/04/2019 09/27/19 22 Old ME (myocardial infarction) 07/04/2019 09/26/2021 Major depression single epis ode, in partial remission 03/23/2019 08/26/2023 Severe obesity with body mas s index (BMI) of 36.0 to 36.9 with serious comorbidity 11/17/2018 Atherosclerosis of [place] co ronary artery of [place] heart without angina pectoris 11/17/201806/2021 Arteriosclerotic dementia wi th depressive features 11/17/2018 12/16/2018 Compression fracture of lumbar vertebra 11/10/2018 11/07/2021 Iron deficiency anemia 05/26/201812/16 Colorectal polyps 04/22/2018 09/12/2018 Rheumatoid arthritis 12/28/2017 023 Overview: More specified Dx listed on PL Acute ME 11/19/2017 11/19/2017 Inflammatory polyarthropathy 11/19/2017 12/16/2018 Loosening [...] Influenza Virus Vac cine, Unspecified Formulation 03/13/2021,04/11/2020,05/10/2019,03/15,04/10/2017,03/25/2016,03/26/2015 ,04/13/2002,06/17/2001,04/08/1998,11/06/1994 Seasonal Influenza, PF, 6 M & above, [...] Sign Reading Time Taken Comments Blood Pressure 130/74 09/08/2022 2:38 PM EDT Pulse 94 09/08/2022 2:38 PM EDT Temperature 36.1 C (97 F) 09/08/2022 2:38 PM EDT Respiratory Rate 18 09/08/2022 2:38 PM EDT Oxygen Saturation 96% 09/08/2022 2:38 PM EDT Inhaled Oxygen Concentration - - Weight 83.5 kg (184 lb) 09/08/2022 2:38 PM EDT Height 177.8 cm (5' 10") 09/08/2022 2:38 PM EDT Body Mass Index 26.4 09/08/2022 2:38 PM EDT documented in this encounter Progress Notes * Derrek Sparks MD - 09/08/2022 3:00 PM EDT Subjective: Elmira Tavares is a 77 year old female here today for Chief Complaint Patient presents with Status Check Here for routine recheck. Tolerating current meds. Denies chest pain, shortness of breath, cough, nausea, vomiting, abd pain, dysuria, urinary frequency, nocturia, fever, melena, hematochezia, peripheral edema. Plan for repeat labs with next ov. She does have problems with neuropathy at nighttime. Having pain in the right ankle - twisted it. Able to walk on it. Past Medical History: Diagnosis Date Acute ME ([facility]) Myocardial Infarction BMI 31.0-31.9,adult Cerebrovascular accident (CVA) ([facility]) 10/24/2021 Not current CVA Chronic ischemic heart disease Compression fracture of lumbar vertebra ([facility]) 11/10/2018 Diabetes mellitus with peripheral angiopathy ([facility]) DM type 2, goal A1c below 7 Dyslipidemia, goal LDL below 100 06/06/2009 Essential hypertension with goal blood pressure less than 140/90 Generalized osteoarthritis Inflammatory polyarthropathy (HCC) Iron deficiency anemia Irritable bowel syndrome Malignant neoplasm of female breast (HCC) Breast, right, mastectomy with SLNB 10/25/2011 Mild sleep apnea Subclinical hypothyroidism 09/24/2018 TSH 4.35/T4 1.25 Past Surgical History: Procedure Laterality Date ANESTH, TOTAL KNEE REPLACEMENT 09/21/1995 left ANGIOPLASTY RENAL/MESENTERIC,O 1991 COLONOSCOPY, DIAGNOSTIC (RECTUM) 03/22/2018 adenomatous & serrated adenomatous polyps, repeat 6 mo/COLONOSCOPY FLEXIBLE PROXIMAL DIAGNOSTICperformed by Martina Cancino MD at ENDOSCOPY [facility] COLONOSCOPY, DIAGNOSTIC (RECTUM) 09/26/2018 adenomatous polyp, repeat 1 yr/COLONOSCOPY FLEXIBLE PROXIMAL DIAGNOSTIC performed by Martina Cancino MD at ENDOSCOPY [facility] COLONOSCOPY, DIAGNOSTIC (RECTUM) 11/14/2020 benign adenomatous polyps, repeat 3 yrs / COLONOSCOPY FLEXIBLE PROXIMAL DIAGNOSTIC performed by Martina Cancino MD at ENDOSCOPY [facility] COLONOSCOPY, DIAGNOSTIC (RECTUM) 08/18/2022 COLONOSCOPY FLEXIBLE PROXIMAL DIAGNOSTIC performed by Mynor Alvarado MD at ENDOSCOPY [facility] ECHO, COMPLETE (2D), TRANS-THORACIC 11/02/2018 mild conc LVH with normal LV size and function EF 70%, grade I diastolic dysfunction EGD, FLEXIBLE, DIAGNOSTIC 05/16/2018 normal bx/ESOPHAGOGASTRODUODENOSCOPY (EGD), FLEXIBLE, TRANSORAL, DIAGNOSTIC performed by Leonora Liu MD at ENDOSCOPY [facility] LAPAROSCOPY, SURGICAL/REMOVE DUCTS 1979 MASTECTOMY, MODIFIED RADICAL 10/24/2010 10/24/2010 right mod. radicala mastectomy with SLNB - [facility] - DR. Gerber MISCELLANEOUS ORDER ([facility] ONLY) 2012 right shoulder replacement MISCELLANEOUS ORDER ([facility] ONLY) left TKR, redo MISCELLANEOUS ORDER ([facility] ONLY) left wrist surgery NECK/CHEST SUBQ TUMOR REMOVAL, 3 CM OR MORE Right 05/22/2014 EXCISION NECK/CHEST SUBQ TUMOR, 3 CM OR MORE performed by Ray Gerber MD at OR [facility] OTHER 03/2006 Right knee replacement OTHER 1998 cholecystectomy OTHER 1992 Angioplasty [place] REMOVE CATARACT, INSERT LENS PROSTH Right 03/26/2021 EXTRACAPSULAR CATARACT REMOVAL WITH INTRAOCULAR LENS performed by Doyle Heredia DO at OR [facility] REMOVE CATARACT, INSERT LENS PROSTH Left 03/11/2022 LEFT EXTRACAPSULAR CATARACT REMOVAL WITH INTRAOCULAR LENS performed by Doyle Heredia DO at OR [facility] REPAIR RUPTURED ROTATOR CUFF, ACUTE 06/2012 [facility] TREAT NOSE FX W/STABILIZATION N/A 09/15/2018 CLOSED TREATMENT NASAL FRACTURE WITH STABILIZATION performed by Marlon Rust DO at [facility] US GUIDED BREAST BIOPSY 09/30/2010 Review of patient's allergies indicates: Allergen Reactions Tello Inhibitors Hyperkalemia resulting in 2 hospitalizations Nadolol Itching Corgard itchy Nitroglycerin Other (Please comment) Headache that is only relieved with Morphine. Nsaids Nausea/vomiting relafen Current Outpatient Medications Medication Sig Dispense Refill metFORMIN HCl ER 500 MG Oral Tablet Extended Release 24 Hour (Glucophage XR) Take 1 by mouth daily 90 Tablet 3 ONETOUCH ULTRASOFT LANCETS [facility] Use to check blood sugars daily as [...] (65 Fe) MG Oral Tablet Take 1 Tab by mouth 2 times a day. Indications: 1tablet in am OneTouch Verio w/Device Kit Use to check blood sugars daily as directed E11.9 1 Kit 0 OneTouch Verio In Vitro Strip (Glucose Blood) Use to check blood sugars twice daily as directed Dx E11.9 200 Strip 3 Systane 0.4-0.3 % Ophthalmic Solution (Polyethyl Glycol-Propyl Glycol) Instill 1 Drop into both eyes in the morning and 1 Drop at noon and 1 Drop in the evening and 1 Drop before bedtime. Atorvastatin Calcium 80 MG Oral Tablet (Lipitor) Take 1 Tablet by mouth daily. 90 Tablet 3 Warfarin Sodium 4 MG Oral Tablet (Coumadin) Take 1 to 1.5 tablets (4mg to 6mg) by mouth daily or asdirected by Coumadin clinic 135 Tablet 3 Furosemide 20 MG Oral Tablet (Lasix) Take 1 Tablet by mouth in the morning. Take an additional tablet in the afternoon as directed or as needed for increased swelling. 100 Tablet 3 Magnesium Oxide 400 (240 Mg) MG Oral Tablet Take 1 Tablet by mouth in the morning. Carvedilol 25 MG Oral Tablet (Coreg) Take by mouth 1 Tablet in the morning AND 1 Tablet before bedtime. 68 Tablet 11 Sertraline HCl 25 MG Oral Tablet (Zoloft) Take 1 tablet by mouth daily. (Patient taking differently: Take 1 tablet by mouth daily.) 90 Tablet 5 cloNIDine HCl 0.1 MG Oral Tablet (Catapres) Take by mouth 1 Tablet in the morning AND 1 Tablet before bedtime. 68 Tablet 11 amLODIPine Besylate 2.5 MG Oral Tablet (Norvasc) Take by mouth 1 Tablet in the morning AND 1 Tabletbefore bedtime. 60 Tablet 11 Levothyroxine Sodium 25 MCG Oral Tablet (Levoxyl) Take by mouth 1 Tablet in the morning. (at least 30 min prior to breakfast or other meds). 90 Tablet 3 Cholecalciferol 50 MCG (2000 UT) Oral Capsule DAILY Pantoprazole Sodium 40 MG Oral Tablet Delayed Release (Protonix) TAKE ONE TABLET BY MOUTH DAILY (Patient taking differently: at bedtime.) 90 Tablet 3 Diclofenac Sodium 1 % External Gel (Voltaren) Apply topically to affected area 4 times a day. Applyto bilateral feet. 150 g 2 Terazosin HCl 2 MG Oral Capsule TAKE TWO CAPSULES BY MOUTH ONCE DAILY AT BEDTIME 180 Capsule 3 Gabapentin 300 MG Oral Capsule (Neurontin) TAKE 1 CAPSULE BY MOUTH THREE TIMES DAILY 270 Capsule 3 Valsartan 160 MG Oral Tablet (Diovan) Take 1 Tablet by mouth daily. (Patient not taking: Reported on 08/14/2022) Dicyclomine HCl 10 MG Oral Capsule (Bentyl) Take 1 capsule by mouth twice per day as needed for abdpain. 60 Capsule 0 Empagliflozin 10 MG Oral Tablet (Jardiance) Take 1 Tablet by mouth in the morning. 30 Tablet 11 No current facility-administered medications for this visit. Objective: BP 130/74 | Pulse 94 | Temp 36.1 C (97 F) (Temporal Artery) | Resp 18 | Ht 1.778 m (5' 10") | Wt 83.5 kg (184 lb) | SpO2 96% | BMI 26.40 kg/m | BSA 2.03 m GEN: NAD HEENT: Benign NECK: Supple with no LAD, TM, JVD CHEST: CTA B CV: RRR ABD: Soft, NT/ND, No HSM, NABS EXT: No c,c,e Assessment and Plan: Type 2 diabetes mellitus with hemoglobin A1c goal of less than 7.0% (HCC) (Primary) - metFORMIN HCl ER 500 MG Oral Tablet Extended Release 24 Hour (Glucophage XR); Take 1 by mouth daily - HEMOGLOBIN A1C; Future; Expected date: 09/20/2022 - COMPREHENSIVE METABOLIC PANEL; Future; Expected date: 09/20/2022 - ALBUMIN / CREATININE RATIO, URINE; Future; Expected date: 09/20/2022 DM type 2 with diabetic peripheral neuropathy (HCC) - metFORMIN HCl ER 500 MG Oral Tablet Extended Release 24 Hour (Glucophage XR); Take 1 by mouth daily Diabetes mellitus with peripheral angiopathy (HCC) Pt has diabetic neuropathy and angiopathy and it is medically necessary for her to use diabetic shoes. Major depression single episode, in partial remission (HCC) -continue current meds Senile osteoporosis Hypothyroidism, unspecified type - TSH WITH FREE T4 IF INDICATED; Future; Expected date: 09/20/2022 Dyslipidemia, goal LDL below 70 Coronary artery disease involving [place] coronary artery of [place] heart without angina pectoris HTN, goal below 140/90 Persistent atrial fibrillation (HCC) -continue current meds Encounter for long-term (current) use of medications - VITAMIN B12; Future; Expected date: 09/20/2022 Hypomagnesemia - MAGNESIUM; Future; Expected date: 09/20/2022 History of iron deficiency anemia - CBC; Future; Expected date: 09/20/2022 - IRON SCREEN, INCLUDING TIBC; Future; Expected date: 09/20/2022 Follow Up: Return in about 6 months (around 03/11/2023) for recheck. | For: recheck 43 min with pt and chart review Derrek Sparks MD documented in this encounter Nursing Notes * Alejandra Villasenor LPN - 09/08/2022 2:38 PM EDT The patient has been properly identified by confirmation of name and date of . Chief Complaint Patient presents with Status Check Return visit Twisted right ankle and it's painful. Also complains of neuropathy in feet that is terrible at night. documented in this encounter Plan of Treatment Upcoming Encounters Date Type Department Care Team (Late st Contact Info) Description 10/01/2023 11:10 AM EDT Anticoagulation Pharmacy, [place] [address] [place] [address] [facility] [address] [place] [address] 10/05/2023 9:00 AM EDT Office Visit Cardiology, [facility] [address] [facility] [place] [address] Corrine Quinn [place] [address] [facility] [place] [address] 10/26/2023 6:20 PM EDT Office Visit Family [facility] [address] [place] [address] Derrek Sparks MD [address] [place] [address] 12/08/2023 10:40 AM EDT Office Visit Rheumatology [address] [place] [address] Arnav Damon MD [address] [place], [place] [address] [address] 05/11/2024 10:15 AM EST Office Visit Ophthalmology, [facility] [address] [facility] [place] [address] Doyle Heredia, DO [address] [place] [address] Health Maintenance Due Date Last Done Comments [...] D LEVEL ONCE IN A LIFETIME-USE SMARTSET# [id number] Completed 06/22/2023, 06/01/2023, 01/07/2023, Additional history exists [...] this encounter Medical Devices Implanted Type Area Independent Video Producer Device Identifier Shelf Expiration Date Model / Serial / Lot Clip Quick 2.8mm 230cm - [id number] Implanted:Qty: 4 on 11/14/2020 by Martina Cancino MD at ENDOSCOPY [facility] [employer] 06/27/2023 [id number] / Lens 19.5 [id number] - [id number] - [id number] Implanted:Qty: 1 on 03/26/2021 by Doyle Heredia DO at OR [facility] Right: Eye BRII : SURGICAL 10/29/2025 [id number] / [id number] / Lens 19.5 [id number] - [id number] - [id number] Implanted:Qty: 1 on 03/11/2022 by Doyle Heredia DO at OR [facility] Left: Eye BRII : SURGICAL 10/29/2025 [id number] / [id number] / documented as of this encounter Results * (ABNORMAL) ALBUMIN / CREATININE RATIO, URINE (06/01/2023 10:50 AM EST) Albumin, Random Urine 52.60 mg/dL 06/01/2023 6:28 PM EST [facility] Creatinine, Random Urine 44 mg/dL 06/01/2023 6:28 PM EST [facility] Albumin / Creatinine Ratio, Urine 1,195(H) <30 mg/g Creat 06/01/2023 6:28 PM EST [facility] Urine Urine specimen obtained by clean catch procedure / Unknown Non-blood Collection / Unknown 06/01/2023 10:50 AM EST 06/01/2023 10:50 AM EST Narrative [facility] - 06/01/2023 6:28 PM EST Normal: <30 mg/g creatinine High: 30-300 mg/g creatinine Very High: >300 mg/g creatinine Nephrotic: >2200 mg/g creatinine Derrek Sparks MD LAB URINE ORDERABL ES [facility] [address] [place] [address] * IRON SCREEN, INCLUDING TIBC (06/01/2023 10:44 AM EST) Iron 59 33 - 151 ug/dL 06/02/2023 3:29 AM EST [facility] Iron Binding Capacity 312 250 - 425 ug/dL 06/02/2023 3:29 AM EST [facility] Transferrin Saturation Percent 19 15 - 55 % 06/02/2023 3:29 AM EST [facility] Blood Venous blood specimen / Unknown Venipuncture / Unknown 06/01/2023 10:44 AM EST 06/01/2023 10:47 AM EST Derrek Sparks MD LAB BLOOD ORDERABL ES [facility] [address] [place] [address] * (ABNORMAL) CBC (06/01/2023 10:44 AM EST) WBC 6.63 4.00 - 10.80 K/uL 06/01/2023 7:33 PM EST [facility] RBC 3.27 3.85 - 5.15 M/uL 06/01/2023 7:33 PM EST [facility] HGB 13.4 12.0 - 15.3 g/dL 06/01/2023 7:33 PM EST [facility] HCT 35.8(L) 36.0 - 45.2 % 06/01/2023 7:33 PM EST [facility] MCV 109.5 81.5 - 97.5 fL 06/01/2023 7:33 PM EST [facility] MCH 41.0 27.0 - 34.0 pg 06/01/2023 7:33 PM EST [facility] MCHC 37.4 32.0 - 36.0 g/dL 06/01/2023 7:33 PM EST [facility] RDW 13.0 11.5 - 15.5 % 06/01/2023 7:33 PM EST [facility] PLT 161 140 - 400 K/uL 06/01/2023 7:33 PM EST [facility] MPV 9.9 6.6 - 11.1 fL 06/01/2023 7:33 PM EST [facility] nRBCs 0 <=0 /100 WBCs 06/01/2023 7:33 PM EST [facility] Blood Venous blood specimen / Unknown Venipuncture / Unknown 06/01/2023 10:44 AM EST 06/01/2023 10:47 AM EST Derrek Sparks MD LAB BLOOD ORDERABL ES Performing Organization Address [facility] Co de Phone Number [facility]ORY [facility] [address] [place] [address] * MAGNESIUM (06/01/2023 10:44 AM EST) Magnesium 1.6 1.5 - 2.6 mg/dL 06/02/2023 3:29 AM EST [facility] Blood Venous blood specimen / Unknown Venipuncture / Unknown 06/01/2023 10:44 AM EST 06/01/2023 10:47 AM EST Derrek Sparks MD LAB BLOOD ORDERABL ES Performing Organization Address [facility] Phone Number LABORATORY [place] [address] [place] [address] * VITAMIN B12 (06/01/2023 10:44 AM EST) Vitamin B12 693 232 - 1,245 pg/mL 06/02/2023 4:15 AM EST [facility] Blood Venous blood specimen / Unknown Venipuncture / Unknown 06/01/2023 10:44 AM EST 06/01/2023 10:47 AM EST Derrek Sparks MD LAB BLOOD ORDERABL ES Performing Organization Address [facility] Co de Phone Number [facility]ORY [facility] [address] [place] [address] * (ABNORMAL) TSH WITH FREE T4 IF INDICATED (06/01/2023 10:44 AM EST) TSH 4.21(H) 0.27 - 4.20 uIU/mL 06/02/2023 4:15 AM EST [facility] Blood Venous blood specimen / Unknown Venipuncture / Unknown 06/01/2023 10:44 AM EST 06/01/2023 10:47 AM EST Derrek Sparks MD LAB BLOOD ORDERABL ES LAB[facility]ATORY [facility] [address] [place] [address] * (ABNORMAL) COMPREHENSIVE METABOLIC PANEL (06/01/2023 10:44 AM EST) BUN 13 6 - 20 mg/dL 06/02/2023 3:29 AM EST [facility] Creatinine 0.7 0.5 - 1.0 mg/dL 06/02/2023 3:29 AM EST [facility] Estimated Glomerular Filtration Rate 87 >=60 mL/min 06/02/2023 3:29 AM EST [facility] Comment:eGFR is calculated b ased on the CKD-EPI 2020 equation Sodium 141 135 - 146 mmol/L 06/02/2023 3:29 AM EST [facility] Potassium 3.8 3.5 - 5.1 mmol/L 06/02/2023 3:29 AM EST [facility] Chloride 104 98 - 107 mmol/L 06/02/2023 3:29 AM EST [facility] CO2 24 22 - 32 mmol/L 06/02/2023 3:29 AM EST [facility] Anion Gap 13 7 - 15 mmol/L 06/02/2023 3:29 AM EST [facility] Glucose 138(H) 70 - 120 mg/dL 06/02/2023 3:29 AM EST [facility] Albumin 4.4 3.8 - 5.0 g/dL 06/02/2023 3:29 AM EST [facility] AST 19 10 - 35 U/L 06/02/2023 3:29 AM EST [facility] Alkaline Phosphatase 89 35 - 130 U/L 06/02/2023 3:29 AM EST [facility] Bilirubin, Total 1.3(H) <=1.2 mg/dL 06/02/2023 3:29 AM EST [facility] Calcium 9.6 8.4 - 10.2 mg/dL 06/02/2023 3:29 AM EST [facility] Protein 6.7 6.0 - 8.3 g/dL 06/02/2023 3:29 AM EST [facility] ALT 12 10 - 35 U/L 06/02/2023 3:29 AM EST [facility] Blood Venous blood specimen / Unknown Venipuncture / Unknown 06/01/2023 10:44 AM EST 06/01/2023 10:47 AM EST Derrek Sparks MD LAB BLOOD ORDERABL ES Performing Organization Address [facility] de Phone Number [facility]ATORY [facility] [address] [place] [address] * (ABNORMAL) HEMOGLOBIN A1C (06/01/2023 10:44 AM EST) Hemoglobin A1C 6.6(H) 4.0 - 5.6 % 06/01/2023 3:46 PM EST [facility]ORY [facility] Comment:The use of HbA1c to monitor glycemic status is based on normal hemoglobin and HbA composition. This test should not be used in patients with abnormal hemoglobin that affects the half life of the red blood cell or the in vivo glycation rates. Estimated Average Glucose 143(H) <126 mg/dL 06/01/2023 3:46 PM EST [facility] Blood Venous blood specimen / Unknown Venipuncture / Unknown 06/01/2023 10:44 AM EST 06/01/2023 10:47 AM EST Derrek Sparks MD LAB BLOOD ORDERABL ES Performing Organization Address [facility] Phone Number LAB[facility]ATORY [facility] [address] [place] [address] documented in this encounter Visit Diagnoses Diagnosis Type 2 diabetes mellitus with hemoglobin A1c goal of less than 7.0% (HCC)- Primary DM type 2 with diabetic peripheral neuropathy (HCC) Type II or unspecified type diabetes mellitus with neurological manifestations, not stated as uncontrolled Diabetes mellitus with peripheral angiopathy (HCC) Type II or unspecified type diabetes mellitus with peripheral circulatory disorders, not stated as uncontrolled Major depression single episode, in partial remission (HCC) Major depressive disorder, single episode, in partial or unspecified remission Senile osteoporosis Hypothyroidism, unspecified type Dyslipidemia, goal LDL below 70 Other and unspecified hyperlipidemia Coronary artery disease involving [place] coronary artery of [place] heart without angina pectoris HTN, goal below 140/90 Unspecified essential hypertension Persistent atrial fibrillation (HCC) Atrial fibrillation Encounter for long-term (current) use of medications Encounter for long-term (current) use of other medications Hypomagnesemia Disorders of magnesium metabolism History of iron deficiency anemia Personal history of diseases of blood and blood-forming organs documented in this encounter Advance Directives Latest Code Status on File Code Status Date Activated Date Inactivated Comments Full Code 03/11/2022 7:56 AM 03/11/2022 2:41 PM Question Answer Comments Discussion of Advance Directives occurred with: Not Discussed due to patient's condition Care Teams Warehouse Picker Relationship Specialty Start Date End Date Derrek Sparks MD [address] [place] [address] PCP - General Family Medicine 08/04/22 documented as of this encounter
--- OUTSIDE RECORDS SUMMARY | 2024-01-06 14:24 | External Medical Summary | Summary of Care ---
Author Name Unknown Organization [facility] Address [address] [place] [address] Phone [phone] Care Team Providers Care Navigation Teacher Name Role Phone Derrek Sparks MD Primary Care Provider +1- [phone] Reason for Visit * Reason Onset Date Comments Forms Request 10/04/2023 Diabetic shoes Encounter Details Date Type Department Care Team (Late st Contact Info) Description 10/04/2023 Telephone [facility] [address] [place] [address] Derrek Sparks MD [address] [place] [address] Forms Request (Diabetic shoes) Allergies [...] mouth in the morning. 0 07/22/2020 Active TalknoteTouch Verio w/Device KitIndications:DM type 2 with diabetic peripheral neuropathy (HCC) Use to check blood sugars daily as directed E11.9 1 Kit 0 10/10/2020 Active [employer]noteTouch Verio In Vitro Strip (Glucose Blood)Indications: DM [...] Oral Tablet (Coreg)Indications :Coronary artery disease involving [place] coronary artery of [place] heart without angina pectoris,HTN, goal below [...] cancer 11/06/2019 Coronary artery disease invo lving [place] coronary artery of [place] heart without angina pectoris 07/04/2019 Senile [...] 36.9 with serious comorbidity 11/17/2018 Atherosclerosis of [place] co ronary artery of [place] heart without angina pectoris 11/17/201806/2021 Arteriosclerotic [...] Description 10/26/2023 6:20 PM EDT Office Visit [place] [address] [place] [address] Derrek Sparks MD [address] [place] [address] 10/29/2023 10:50 AM EDT Anticoagulation Pharmacy, [place] [address] [place] [address] [facility] [address] [place] [address] 12/08/2023 10:40 AM EDT Office Visit Rheumatology [place] [id number] [facility] [place], [place] [address] Arnav Damon MD [facility] [place] [address] 03/24/2024 9:30 AM EDT Office Visit Cardiology, [facility] [place] [address] Corrine Quinn PA-C [address] [place] [address] 05/11/2024 10:15 AM EST Office Visit Ophthalmology, [facility] [address] [facility] [place] [address] Doyle Heredia, DO [address] [facility] [place] [address] Health Maintenance Due Date Last Done Comments [...] D LEVEL ONCE IN A LIFETIME-USE SMARTSET# [id number] Completed 06/22/2023, 06/01/2023, 01/07/2023, Additional history exists [...] this encounter Medical Devices Implanted Type Area Milled Rubber Tender Device Identifier Shelf Expiration Date Model / Serial / Lot Clip Quick 2.8mm 230cm - [id number] Implanted:Qty: 4 on 11/14/2020 by Martina Cancino MD at ENDOSCOPY [facility] [employer] 06/27/2023 HX-202UR.A / / Lens 19.5 [id number] - [id number] - [id number] Implanted:Qty: 1 on 03/26/2021 by Doyle Heredia DO at OR [facility] Right: Eye BRII : SURGICAL 10/29/2025 [id number] / [id number] / Lens 19.5 [id number] - [id number] - [id number] Implanted:Qty: 1 on 03/11/2022 by Doyle Heredia DO at OR [facility] Left: Eye BRII : SURGICAL 10/29/2025 [id number] / [id number] / documented as of this encounter Advance Directives Latest Code Status on File Code Status Date Activated Date Inactivated Comments Full Code 03/11/2022 7:56 AM 03/11/2022 2:41 PM Question Answer Comments Discussion of Advance Directives occurred with: Not Discussed due to patient's condition Care Teams Navigation Teacher Relationship Specialty Start Date End Date Derrek Sparks MD [address] [facility] [place] [address] PCP - General Family Medicine 08/04/22 documented as of this encounter
--- OUTSIDE RECORDS SUMMARY | 2024-01-06 14:25 | External Medical Summary | Summary of Care ---
Author Name Unknown Organization [facility] Address [address] [place] [address] Phone [phone] Care Team Providers Care Gas Station Supervisor Name Role Phone Derrek Sparks MD Primary Care Provider +1- [phone] Reason for Visit * Reason Onset Date Comments Forms Request 09/07/2023 [facility] Diabetic shoes Encounter Details Date Type Department Care Team (Late st Contact Info) Description 09/07/2023 Telephone [facility] [address] [place] [address] Derrek Sparks MD [address] [place] [address] Forms Request ([facility] /D... Allergies Active Allergy Reactions Criticality Noted Date Comments Tello Inhibitors 05/08/2021 Hyperkalemia resulting in 2 hospitalizations Metformin Diarrhea 11/05/2022 Nadolol Itching 03/17/1999 Corgard itchy Nitroglycerin Other (Please comment) 02/09/2011 Headache that is only relieved with Morphine. Nsaids Nausea/vomiting 03/17/1999 relafen documented as of this encounter (statuses as of 09/30/2023) Medications Medication Sig Dispensed Refills Start Date [...] 1 tablet in am 0 07/22/2020 Active [employer] Verio w/Device KitIndications:DM type 2 with diabetic peripheral neuropathy (HCC) Use to check blood sugars daily as directed E11.9 1 Kit 0 10/10/2020 Active [employer] Verio In Vitro Strip (Glucose Blood)Indications :DM [...] Oral Tablet (Coreg)Indication s:Coronary artery disease involving [place] coronary artery of [...] as of this encounter (statuses as of 09/30/2023) Active Problems Problem Noted Date Diagnosed Date [...] 03/24/2018 HTN, goal below 140/90 03/24/2018 Old [place] (myocardial infarction) 03/24/2018 Type 2 diabetes mellitus [...] as of this encounter (statuses as of 09/30/2023) Resolved Problems Problem Noted Date Diagnosed Date [...] negative rheumatoid factor 07/04/2019 09/27/19 22 Old UT (myocardial infarction) 07/04/2019 09/26/2021 Major depression single [...] More specified Dx listed on PL Acute UT 11/19/2017 11/19/2017 Inflammatory polyarthropathy 11/19/2017 12/16/2018 Loosening [...] as of this encounter (statuses as of 09/30/2023) Immunizations Name Administration Dates Next Due COVID-19 [...] encounter Miscellaneous Notes * Telephone Encounter - Nilsa Allred OSA [...] this and contact with an update. Call back:[phone] * Telephone Encounter - Edwige Alvarez LPN [...] day turnaround timeframe. Reminded patient of 5-7 day policy for forms requests. * Telephone Encounter - Kina Willard OSA - 09/09/2023 12:35 PM EDT 09/09/23 Bhargavi from [facility] called and asked if we rec paperwork for pt. We did rec the paperwork and the forms are on the provider's desk. Fax paperwork and OVN to [phone]. * Telephone Encounter - Maddy Bhagat LPN - 09/07/2023 7:11 AM EDT [facility] forms for Diabetic shoes were placed on the providers desk documented in this encounter Plan of Treatment Upcoming Encounters Date Type Department Care Team (Late st Contact Info) Description 10/01/2023 11:10 AM EDT [facility]tico[facility] Pharm[facility], [place] [address] [facility] [address] [facility] [address] [facility] [address] [address] 10/05/2023 9:00 AM EDT Office Visit Cardiology, [facility] [address] [place] [address] Corrine Quinn PA-C [address] [place] [address] 10/26/2023 6:20 PM EDT Office Visit [facility], [place] [address] [facility] [place] [phone] Derrek Sparks MD [address] [place] [address] 12/08/2023 10:40 AM EDT Office Visit Rheumatology [facility] [address] [facility] [place] [address] Arnav Damon MD [address] [facility] [place] [address] 05/11/2024 10:15 AM EST Office Visit Ophthalmology, [facility] [address] [facility] [place] [address] Doyle Heredia, DO [address] [place] [address] Health Maintenance Due Date Last Done Comments [...] D LEVEL ONCE IN A LIFETIME-USE SMARTSET# [id number] Completed 06/22/2023, 06/01/2023, 01/07/2023, Additional history exists [...] this encounter Medical Devices Implanted Type Area Chlorination Operator Device Identifier Shelf Expiration Date Model / Serial / Lot Clip Quick 2.8mm 230cm - [id number] Implanted:Qty: 4 on 11/14/2020 by Martina Cancino MD at ENDOSCOPY [facility] [employer] 06/27/2023 HX-202UR.A / / Lens 19.5 [id number] - [id number] - [id number] Implanted:Qty: 1 on 03/26/2021 by Doyle Heredia DO at OR [facility] Right: Eye BRII : SURGICAL 10/29/2025 [id number] / [id number] / Lens 19.5 [id number] - [id number] - [id number] Implanted:Qty: 1 on 03/11/2022 by Doyle Heredia DO at OR [facility] Left: Eye BRII : SURGICAL 10/29/2025 [id number] / [id number] / documented as of this encounter Advance Directives Latest Code Status on File Code Status Date Activated Date Inactivated Comments Full Code 03/11/2022 7:56 AM 03/11/2022 2:41 PM Question Answer Comments Discussion of Advance Directives occurred with: Not Discussed due to patient's condition Care Teams Gas Station Supervisor Relationship Specialty Start Date End Date Derrek Sparks MD [address] [facility] [place] [address] PCP - General Family Medicine 08/04/22 documented as of this encounter
--- OUTSIDE RECORDS SUMMARY | 2024-01-06 14:25 | External Medical Summary | Summary of Care ---
Author Name Unknown Organization [facility] Address [address] [place] [address] Phone [phone] Care Team Providers Care Profiling Machine Operator Name Role Phone Derrek Sparks MD Primary Care Provider +1- [phone] Reason for Visit * Reason Onset Date Comments Forms Request 09/07/2023 [facility] Diabetic shoes Encounter Details Date Type Department Care Team (Late st Contact Info) Description 09/07/[address] [facility] [address] [place] [address] Derrek Sparks MD [address] [place] [address] Forms Request ([facility] /D... Allergies Active Allergy Reactions Criticality Noted Date Comments Tello Inhibitors 05/08/2021 Hyperkalemia resulting in 2 hospitalizations Metformin Diarrhea 11/05/2022 Nadolol Itching 03/17/1999 Corgard itchy Nitroglycerin Other (Please comment) 02/09/2011 Headache that is only relieved with Morphine. Nsaids Nausea/vomiting 03/17/1999 relafen documented as of this encounter (statuses as of 09/23/2023) Medications Medication Sig Dispensed Refills Start Date [...] 1 tablet in am 0 07/22/2020 Active [employer] Verio w/Device KitIndications:DM type 2 with diabetic peripheral neuropathy (HCC) Use to check blood sugars daily as directed E11.9 1 Kit 0 10/10/2020 Active [employer] Verio In Vitro Strip (Glucose Blood)Indications :DM [...] Oral Tablet (Coreg)Indication s:Coronary artery disease involving [place] coronary artery of [place] heart without angina pectoris,HTN, goal below 140/90 [...] as of this encounter (statuses as of 09/23/2023) Active Problems Problem Noted Date Diagnosed Date [...] cancer 11/06/2019 Coronary artery disease invo lving [place] coronary artery of [place] heart without angina pectoris 07/04/2019 Senile osteoporosis 05/15/2019 Nontoxic uninodular goiter 11/17/2018 Gastroesophageal reflux disease without esophagi tis 11/01/2018 Rheumatoid arthritis 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 03/24/2018 HTN, goal below 140/90 03/24/2018 Old [place] (myocardial infarction) 03/24/2018 Type 2 diabetes mellitus [...] as of this encounter (statuses as of 09/23/2023) Resolved Problems Problem Noted Date Diagnosed Date [...] negative rheumatoid factor 07/04/2019 09/27/19 22 Old [place] (myocardial infarction) 07/04/2019 09/26/2021 Major depression single epis ode, in partial remission 03/23/2019 08/26/2023 Severe obesity with body mas s index (BMI) of 36.0 to 36.9 with serious comorbidity 11/17/2018 Atherosclerosis of [place] co ronary artery of k[place] heart without angina pectoris 11/17/201806/2021 Arteriosclerotic dementia wi th depressive features 11/17/2018 12/16/2018 Compression fracture of lumbar vertebra 11/10/2018 11/07/2021 Iron deficiency anemia 05/26/201812/16 Colorectal polyps 04/22/2018 09/12/2018 Rheumatoid arthritis 12/28/2017 023 Overview: More specified Dx listed on PL Acute NE 11/19/2017 11/19/2017 Inflammatory polyarthropathy 11/19/2017 12/16/2018 Loosening [...] as of this encounter (statuses as of 09/23/2023) Immunizations Name Administration Dates Next Due COVID-19 [...] encounter Miscellaneous Notes * Telephone Encounter - Beverley Layton OSA - 09/23/2023 11:13 AM EDT Bhargavi calling again for an update in regards to forms that need to be filled out by PCP. Pls check into this and contact with an update. Call back:[phone] * Telephone Encounter - Edwige Alvarez LPN [...] 09/09/2023 12:35 PM EDT 09/09/23 Bhargavi from [facility] called and asked if we rec paperwork for pt. We did rec the paperwork and the forms are on the provider's desk. Fax paperwork and OVN to [phone]. * Telephone Encounter - Maddy Bhagat LPN - 09/07/2023 7:11 AM EDT [facility] forms for Diabetic shoes were placed on the providers desk documented in this encounter Plan of Treatment Upcoming Encounters Date Type Department Care Team (Late st Contact Info) Description 10/01/2023 11:10 AM EDT Anticoagulation Pharmacy, [place] [address] [place] [address] [facility] [address] [place] [address] 10/05/2023 9:00 AM EDT Office Visit Cardiology, [facility] [address] [facility] [place] [address] Corrine Quinn PA-C [address] [place] [address] 10/26/2023 6:20 PM EDT Office Visit Family Practice, [place] [address] [place] [facility] [place] [phone] Derrek Sparks MD [address] [place] [address] 12/08/2023 10:40 AM EDT Office Visit Rheumatology [place] [address] [facility] [place] [address] Arnav Damon MD [address] [place] [address] [place] [address] 05/11/2024 10:15 AM EST Office Visit Ophthalmology, [facility] [address] [facility] [place] [address] Doyle Heredia, DO [address] [facility] [place] [address] Health Maintenance Due Date Last Done Comments [...] D LEVEL ONCE IN A LIFETIME-USE SMARTSET# [id number] Completed 06/22/2023, 06/01/2023, 01/07/2023, Additional history exists [...] this encounter Medical Devices Implanted Type Area Locomotive Firer Device Identifier Shelf Expiration Date Model / Serial / Lot Clip Quick 2.8mm 230cm - [id number] Implanted:Qty: 4 on 11/14/2020 by Martina Cancino MD at ENDOSCOPY [facility] [employer] 06/27/2023 HX-202UR.A / / Lens 19.5 [id number] - [id number] - [id number] Implanted:Qty: 1 on 03/26/2021 by Doyle Heredia DO at OR [facility] Right: Eye BRII : SURGICAL 10/29/2025 [id number] / [id number] / Lens 19.5 [id number] - [id number] - [id number] Implanted:Qty: 1 on 03/11/2022 by Doyle Heredia DO at OR [facility] Left: Eye BRII : SURGICAL 10/29/2025 [id number] / [id number] / documented as of this encounter Advance Directives Latest Code Status on File Code Status Date Activated Date Inactivated Comments Full Code 03/11/2022 7:56 AM 03/11/2022 2:41 PM Question Answer Comments Discussion of Advance Directives occurred with: Not Discussed due to patient's condition Care Teams Profiling Machine Operator Relationship Specialty Start Date End Date Derrek Sparks MD [address] [place] [address] PCP - General Family Medicine 08/04/22 documented as of this encounter
--- OUTSIDE RECORDS SUMMARY | 2024-01-06 14:25 | External Medical Summary ---
Author Name Unknown Address Unknown Organization : Laboratory Report Ordering Provider Test Date Status ILIA CHAVEZ 10/01/2023 11:17:12 Final Therapeutic ranges for non-o perative patients:
Prophylaxsis/treatment of DVT: (Range:2.0-3.0)
Treatment of pulmonary embolism:(Range:2.0-3.0)
Prevention of systemic embolism from:
-tissue heart valves
-acute myocardial infarction
-valvular heart disease
-atrial fibrillation
(Range: 2.0-3.0)
Mechanical prosthetic valves: (Range: 2.5-3.5) Observation Date Value Abnormality Reference (Units ) Status INR in Capillary blood by Coagulation assay 10/01/2023 11:17:12 1.5 (INR) Final Performing Location
--- OUTSIDE RECORDS SUMMARY | 2024-01-06 14:26 | External Medical Summary | Summary of Care ---
Author Name Unknown Organization [facility] Address [address] [place] [address] Phone [phone] Care Team Providers Care Classroom Technology Coach Name Role Phone Derrek Sparks MD Primary Care Provider [phone]- [phone] Reason for Visit * Reason Onset Date Comments Medication Refill 08/27/2023 Encounter Details Date Type Department Care Team (Late st Contact Info) Description 08/27/2023 Refill Cardiology, [facility] [address] [place] [address] Jhoana Jimenez PA-C [address] [place] [address] HTN, goal below 130/80; Chronic diastolic congestive heart failure (HCC); Persistent atrial fibrillation (HCC) Allergies Active Allergy Reactions Criticality Noted Date Comments Tello Inhibitors 05/08/2021 Hyperkalemia resulting in 2 hospitalizations Metformin Diarrhea 11/05/2022 Nadolol Itching 03/17/1999 Corgard itchy Nitroglycerin Other (Please comment) 02/09/2011 Headache that is only relieved with Morphine. Nsaids Nausea/vomiting 03/17/1999 relafen documented as of this encounter (statuses as of 08/30/2023) Medications Medication Sig Dispensed Refills Start Date [...] 1 tablet in am 0 07/22/2020 Active [employer] Verio w/Device KitIndications:DM type 2 with diabetic peripheral neuropathy (HCC) Use to check blood sugars daily as directed E11.9 1 Kit 0 10/10/2020 Active [employer] Verio In Vitro Strip (Glucose Blood)Indications :DM [...] BEFORE BEDTIME. 180 Tablet 3 10/26/2022 Active Dicyclomine HCl 10 MG Oral Capsule (Bentyl)Indicatio ns:Abdominal cramps Take 1 capsule by mouth twice per day as needed for abd pain. 60 Capsule 0 11/11/2022 Active Sertraline HCl 25 MG Oral Tablet [...] Oral Tablet (Coreg)Indication s:Coronary artery disease involving [place] coronary artery of [place] heart without angina pectoris,HTN, goal below 140/90 [...] the morning. 90 Tablet 3 08/30/2023 Active Spironolactone 25 MG Oral Tablet (Aldactone)Indica tions:HTN, goal below 130/80,Chronic diastolic congestive heart failure (HCC),Persistent atrial fibrillation (HCC) Take 1 Tablet by mouth in the morning. 90 Tablet 3 2023 Discontinue d(Refill) documented as of this encounter (statuses as of 08/30/2023) Active Problems Problem Noted Date Diagnosed Date [...] cancer 11/06/2019 Coronary artery disease invo lving [place] coronary artery of [place] heart without angina pectoris 07/04/2019 Senile osteoporosis [...] as of this encounter (statuses as of 08/30/2023) Resolved Problems Problem Noted Date Diagnosed Date [...] 36.9 with serious comorbidity 11/17/2018 Atherosclerosis of [place] co ronary artery of [place] heart without angina pectoris 11/17/201806/2021 Arteriosclerotic dementia [...] as of this encounter (statuses as of 08/30/2023) Immunizations Name Administration Dates Next Due COVID-19 [...] Telephone Encounter - Jhoana Jimenez PA-C - 08/30/2023 11:56 AM EST Signed Prescriptions: Disp Refills Spironolactone 25 MG Oral Tablet (Aldacton*90 Tab*3 Sig: Take 1 Tablet by mouth in the morning. Authorizing Provider: JHOANA JIMENEZ * Telephone Encounter - Tabby Sandhu CMA - 08/27/2023 3:23 PM EST Did you pend patient's preferred pharmacy and medication before forwarding?yes Pharmacy: [id number] Pending Prescriptions: Disp Refills Spironolactone 25 MG Oral Tablet (Aldacto*90 Tab*3 Sig: Take 1 Tablet by mouth in the morning. Last Visit: 07/02/2023 (in office), Visit date not found (telemedicine) Next Visit: 10/05/2023 If no future appointments scheduled, and last appointment is greater than a year ago, please schedule patient for a follow-up appointment Last date the medication was ordered: Is this request for a controlled substance?No Urine Drug Screen:No results found. However, due to the size of the patient record, not all encounters were searched. Please check Results Review for a complete set of results. Patient Phone Numbers Labs: Lab Results Component Value Date/Time CREAT 0.8 08/05/2023 10:11 AM CREAT 0.72 01/12/2023 12:00 AM CREAT 0.7 07/19/2020 10:10 AM CREAT 0.7 09/22/1996 06:30 PM POTASSIUM 3.6 08/05/2023 10:11 AM POTASSIUM 3.6 01/12/2023 12:00 AM POTASSIUM 4.6 07/19/2020 10:10 AM POTASSIUM 4.2 09/22/1996 06:30 PM TSH 4.21 (H) 06/01/2023 10:44 AM TSH 3.15 10/10/2019 11:06 AM LDLCALC 162 (H) 06/01/2023 10:44 AM LDLCALC 68 10/10/2019 11:06 AM LDLCALC 180. (HH) 09/22/1996 06:30 PM LDLDIRECT 86 05/29/2021 09:29 AM LDLDIRECT NOT APPLICABLE 10/10/2019 11:06 AM LDLDIRECT 57 12/22/2016 01:42 PM ALT 12 06/01/2023 10:44 AM ALT 10 07/19/2020 10:10 AM ALT 20 09/22/1996 06:30 PM HGBA1C 6.6 (H) 06/01/2023 10:44 AM HGBA1C 8.4 (A) 03/17/2022 12:00 AM HGBA1C 5.5 07/05/2020 01:05 PM documented in this encounter Plan of Treatment Upcoming Encounters Date Type Department Care Team (Late st Contact Info) Description 10/01/2023 11:10 AM EDT Anticoagulation Pharmacy, [address] [place] [address] [facility] [address] [place] [address] 10/05/2023 9:00 AM EDT Office Visit Cardiology, [facility] [address] [place] [address] Jhoana Jimenez PA-C [address] [facility] [place] [place] [address] 10/26/2023 6:20 PM EDT Office Visit Family Practice, [place] [address] [place] [id number] Derrek Sparks MD [address] [place] [address] 12/08/2023 10:40 AM EDT Office Visit Rheumatology [address] [address] Arnav Damon MD [address] [place] [address] 05/11/2024 10:15 AM EST Office Visit Ophthalmology, [facility] [address] [place] [address] Doyle Heredia, DO [address] [facility] [place] [address] Health Maintenance Due Date Last Done Comments [...] D LEVEL ONCE IN A LIFETIME-USE SMARTSET# 53001 Completed 06/22/2023, 06/01/2023, 01/07/2023, Additional history exists [...] this encounter Medical Devices Implanted Type Area Elevator Mechanic Device Identifier Shelf Expiration Date Model / Serial / Lot Clip Quick 2.8mm 230cm - [id number] Implanted:Qty: 4 on 11/14/2020 by Martina Cancino MD at ENDOSCOPY [facility] [employer] 06/27/2023 HX-202UR.A / / Lens 19.5 [id number] - [id number] - [id number] Implanted:Qty: 1 on 03/26/2021 by Doyle Heredia DO at OR [facility] Right: Eye BRII : SURGICAL 10/29/2025 [id number] / [id number] / Lens 19.5 [id number] - [id number] - [id number] Implanted:Qty: 1 on 03/11/2022 by Doyle Heredia DO at OR [facility] Left: Eye BRII : SURGICAL 10/29/2025 [id number] / [id number] / documented as of this encounter Visit Diagnoses Diagnosis HTN, goal below 130/80 Unspecified essential hypertension Chronic diastolic congestive heart failure (HCC) Chronic diastolic heart failure Persistent atrial fibrillation (HCC) Atrial fibrillation documented in this encounter Advance Directives Latest Code Status on File Code Status Date Activated Date Inactivated Comments Full Code 03/11/2022 7:56 AM 03/11/2022 2:41 PM Question Answer Comments Discussion of Advance Directives occurred with: Not Discussed due to patient's condition Care Teams Classroom Technology Coach Relationship Specialty Start Date End Date Derrek Sparks MD [address] [place] [address] PCP - General Family Medicine 08/04/22 documented as of this encounter
--- OUTSIDE RECORDS SUMMARY | 2024-01-06 14:26 | External Medical Summary | Summary of Care ---
Author Name Unknown Organization [facility] Address [address] [place] [address] Phone [phone] Care Team Providers Care Interlocking Pavement Installer Name Role Phone Derrek Sparks MD Primary Care Provider [phone]- [phone] Reason for Visit * Reason Onset Date Comments Forms Request 09/07/2023 [facility] Diabetic shoes Encounter Details Date Type Department Care Team (Late st Contact Info) Description 09/07/2023 Telephone [facility] [address] [place] [address] Derrek Sparks MD [address] [place] [address] Forms Request ([facility] /D... Allergies Active Allergy Reactions Criticality Noted Date Comments Tello Inhibitors 05/08/2021 Hyperkalemia resulting in 2 hospitalizations Metformin Diarrhea 11/05/2022 Nadolol Itching 03/17/1999 Corgard itchy Nitroglycerin Other (Please comment) 02/09/2011 Headache that is only relieved with Morphine. Nsaids Nausea/vomiting 03/17/1999 relafen documented as of this encounter (statuses as of 09/15/2023) Medications Medication Sig Dispensed Refills Start Date [...] 1 tablet in am 0 07/22/2020 Active [employer] Verio w/Device KitIndications:DM type 2 with diabetic peripheral neuropathy (HCC) Use to check blood sugars daily as directed E11.9 1 Kit 0 10/10/2020 Active [employer] Verio In Vitro Strip (Glucose Blood)Indications: DM [...] Oral Tablet (Coreg)Indications :Coronary artery disease involving [place] coronary artery of [place] heart without angina pectoris,HTN, goal below 140/90 [...] the morning. 90 Tablet 3 08/30/2023 Active documented as of this encounter (statuses as of 09/15/2023) Active Problems Problem Noted Date Diagnosed Date [...] cancer 11/06/2019 Coronary artery disease invo lving [place] coronary artery of [place] heart without angina pectoris 07/04/2019 Senile osteoporosis [...] as of this encounter (statuses as of 09/15/2023) Resolved Problems Problem Noted Date Diagnosed Date [...] 36.9 with serious comorbidity 11/17/2018 Atherosclerosis of [place] co ronary artery of [place] heart without angina pectoris 11/17/201806/2021 Arteriosclerotic dementia [...] as of this encounter (statuses as of 09/15/2023) Immunizations Name Administration Dates Next Due COVID-19 [...] encounter Miscellaneous Notes * Telephone Encounter - Mitesh Gibbs OSA - 09/15/2023 10:09 AM EDT Patient calling in to check on the status of previous message. Patient Called within forms 5-7 business day turnaround timeframe. Reminded patient of 5-7 businessday policy for forms requests. * Telephone Encounter - Kina Willard OSA - 09/09/2023 12:35 PM EDT 09/09/23 Bhargavi from [facility] called and asked if we rec paperwork for pt. We did rec the paperwork and the forms are on the provider's desk. Fax paperwork and OVN to [phone]. * Telephone Encounter - Maddy Bhagat LPN - 09/07/2023 7:11 AM EDT [facility] forms for Diabetic shoes were placed on the providers desk documented in this encounter Plan of Treatment Upcoming Encounters Date Type Department Care Team (Late st Contact Info) Description 10/01/2023 11:10 AM EDT Anticoagulation Pharmacy[address] [place] [id number] [facility] [address] [place] [address] 10/05/2023 9:00 AM EDT Office Visit Cardiology, [address] [place] [address] Corrine Quinn PA-C [address] [facility] [address] 10/26/2023 6:20 PM EDT Office Visit Family Practice, [place] [address] [place] [facility] [place] [id number] Derrek Sparks MD [address] [place] [address] 12/08/2023 10:40 AM EDT Office Visit [facility] [place] [address] [facility] [address] Arnav Damon MD [address] [place] [address] 05/11/2024 10:15 AM EST Office Visit Ophthalmology, [facility] [address] [place] [address] Doyle Heredia, DO [address] [facility] [place] [address] Health Maintenance Due Date Last Done Comments [...] D LEVEL ONCE IN A LIFETIME-USE SMARTSET# [id number] Completed 06/22/2023, 06/01/2023, 01/07/2023, Additional history exists [...] this encounter Medical Devices Implanted Type Area Magazine Publisher Device Identifier Shelf Expiration Date Model / Serial / Lot Clip Quick 2.8mm 230cm - [id number] Implanted:Qty: 4 on 11/14/2020 by Martina Cancino MD at ENDOSCOPY [facility] [employer] 06/27/2023 HX-202UR.A / / Lens 19.5 [id number] - [id number] - [id number] Implanted:Qty: 1 on 03/26/2021 by Doyle Heredia DO at OR [facility] Right: Eye BRII : SURGICAL 10/29/2025 [id number] / [id number] / Lens 19.5 [id number] - [id number] - [id number] Implanted:Qty: 1 on 03/11/2022 by Doyle Heredia DO at OR [facility] Left: Eye BRII : SURGICAL 10/29/2025 [id number] / [id number] / documented as of this encounter Advance Directives Latest Code Status on File Code Status Date Activated Date Inactivated Comments Full Code 03/11/2022 7:56 AM 03/11/2022 2:41 PM Question Answer Comments Discussion of Advance Directives occurred with: Not Discussed due to patient's condition Care Teams Interlocking Pavement Installer Relationship Specialty Start Date End Date Derrek Sparks MD [address] [place] [address] PCP - General Family Medicine 08/04/22 documented as of this encounter
--- OUTSIDE RECORDS SUMMARY | 2024-01-06 14:26 | External Medical Summary | Summary of Care ---
Author Name Unknown Organization [facility] Address [address] [place] [address] Phone [phone] Care Team Providers Care Business Process Engineer Name Role Phone Derrek Sparks MD Primary Care Provider [phone]- [phone] Reason for Visit * Reason Comments Acute Pt states that she h as a sore/bruised area to the gluteus Encounter Details Date Type Department Care Team (Late st Contact Info) Description 08/26/2023 7:40 AM EST Office Visit [facility] [address] [place] [address] Chelly Kessler MD [address] [place] [address] Abscess*; Hypertensive heart disease with chronic diastolic congestive heart failure (HCC); Persistent atrial fibrillation (HCC); HTN, goal below 140/90; Type 2 diabetes mellitus with peripheral angiopathy (HCC); Type 2 diabetes mellitus with hemoglobin A1c goal of less than 7.0% ([facility]) Allergies Active Allergy Reactions Criticality Noted Date Comments Tello Inhibitors 05/08/2021 Hyperkalemia resulting in 2 hospitalizations Metformin Diarrhea 11/05/2022 Nadolol Itching 03/17/1999 Corgard itchy Nitroglycerin Other (Please comment) 02/09/2011 Headache that is only relieved with Morphine. Nsaids Nausea/vomiting 03/17/1999 relafen documented as of this encounter (statuses as of 08/26/2023) Medications Medication Sig Dispensed Refills Start Date End Date Status ONETOUCH REJIOFT GUANAKO MISCIndications:DM type 2 with diabetic peripheral neuropathy [...] 1 tablet in am 0 07/22/2020 Active [email or web address] Verio w/Device KitIndications:DM type 2 with diabetic peripheral neuropathy (HCC) Use to check blood sugars daily as directed E11.9 1 Kit 0 10/10/2020 Active [email or web address] Verio In Vitro Strip (Glucose Blood)Indications: DM [...] Oral Tablet (Coreg)Indications :Coronary artery disease involving [place] coronary artery of [place] heart without angina pectoris,HTN, goal below 140/90 [...] in the morning. 90 Tablet 3 2023 Active documented as of this encounter (statuses as of 08/26/2023) Active Problems Problem Noted Date Diagnosed Date [...] cancer 11/06/2019 Coronary artery disease invo lving [place] coronary artery of [place] heart without angina pectoris 07/04/2019 Senile osteoporosis 05/15/2019 Nontoxic uninodular goiter 11/17/2018 Gastroesophageal reflux disease without esophagi tis 11/01/2018 Rheumatoid arthritis 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 03/24/2018 HTN, goal below 140/90 03/24/2018 Old OR (myocardial infarction) 03/24/2018 Type [...] as of this encounter (statuses as of 08/26/2023) Resolved Problems Problem Noted Date Diagnosed Date [...] 36.9 with serious comorbidity 11/17/2018 Atherosclerosis of [place] co ronary artery of [place] heart without angina pectoris 11/17/201806/2021 Arteriosclerotic dementia [...] as of this encounter (statuses as of 08/26/2023) Immunizations Name Administration Dates Next Due COVID-19 [...] Sign Reading Time Taken Comments Blood Pressure 152/88 08/26/2023 7:39 AM EST Pulse 85 08/26/2023 7:39 AM EST Temperature 35.8 C (96.4 F) 08/26/2023 7:39 AM ES T Respiratory Rate 16 08/26/2023 7:39 AM EST Oxygen Saturation 99% 08/26/2023 7:39 AM EST Inhaled Oxygen Concentration - - Weight 88.4 kg (194 lb 14.4 oz) 08/26/2023 7:39 AM EST Height 177.8 cm (5' 10") 08/26/2023 7:39 AM EST Body Mass Index 27.97 08/26/2023 7:39 AM EST documented in this encounter Progress Notes * Chelly Kessler MD - 08/26/2023 8:00 AM EST Images from the original note were not included. Subjective Elmira Tavares is a 78 year old female. Chief Complaint Patient presents with Acute Pt states that she has a sore/bruised area to the gluteus HPI: Here to check a skin lesion on rt inner buttock Last week it got sore, bigger, and then popped out with small blood discharge Now it is better Showed healed abscess/cyst , no need for Abx Known type 2 DM, last hba1c 6.6 Known afib, CHF, diastolic, HTN BP - running high Will increase spironolactone per cardio advice And will recheck BP , update me Taking all her meds PMH: Patient Active Problem List Diagnosis Code GENERAL OSTEOARTHROSIS M15.9 Irritable bowel syndrome K58.9 Type 2 diabetes mellitus with hemoglobin A1c goal of less than 7.0% ([facility]) E11.9 Dyslipidemia, goal LDL below 70 E78.5 Encounter for long-term (current) use of medications Z79.899 Anemia D64.9 PVD (peripheral vascular disease) ([facility]) I73.9 Mild sleep apnea G47.30 Type 2 diabetes mellitus with peripheral angiopathy ([facility]) E11.51 Type 2 diabetes mellitus with diabetic neuropathy, without long-term current use of insulin ([facility]) E11.40 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 ([facility]) M06.041, M06.042 HTN, goal below 140/90 I10 Old OR (myocardial infarction) I25.2 Gastroesophageal reflux disease without esophagitis K21.9 Nontoxic uninodular goiter E04.1 Senile osteoporosis M81.0 Coronary artery disease involving [place] coronary artery of [place] heart without angina pectoris I25.10 History of breast cancer Z85.3 Longstanding persistent atrial fibrillation ([facility]) I48.11 Incontinence of feces R15.9 Personal history of fall Z91.81 Diabetic retinopathy of left eye associated with type 2 diabetes mellitus ([facility]) E11.319 Urge and stress incontinence N39.46 Vitamin D deficiency E55.9 Ulcerative pancolitis ([facility]) K51.00 Postprocedural seroma of a musculoskeletal structure [...] cerebral infarction affecting left non- dominant side ([facility]) I69.354 Diverticulosis of colon K57.30 History of vertebral compression fracture Z87.81 Persistent atrial fibrillation ([facility]) I48.19 Atherosclerosis of aorta ([facility]) I70.0 Hypertensive heart disease with chronic diastolic congestive heart failure ([facility]) I11.0, I50.32 Current Outpatient Medications Medication Sig Dispense Refill ONETOUCH ULTRASOFT LANCETS [facility] Use to check blood sugars daily as [...] times a day. Indications: 1tablet in am [employer] Verio w/Device Kit Use to check blood sugars daily as directed E11.9 1 Kit 0 [employer] Verio In Vitro Strip (Glucose Blood) Use [...] 1 TABLET BEFORE BEDTIME. 180 Tablet 3 Dicyclomine HCl 10 MG Oral Capsule (Bentyl) Take 1 capsule by mouth twice per day as needed for abdpain. 60 Capsule 0 Sertraline HCl 25 MG Oral Tablet (Zoloft) Take 1 tablet by mouth daily. 90 Tablet 3 Atorvastatin Calcium 80 MG Oral Tablet (Lipitor) Take 1 Tablet by mouth in the morning. 100 Tablet 3 Linzess 145 MCG Oral Capsule (linaCLOtide) Take 1 Capsule by mouth daily before breakfast. 90 Capsule 3 Carvedilol 25 MG Oral Tablet (Coreg) [...] mouth in the morning. 90 Tablet 3 No current facility-administered medications for this visit. Past Medical History: Diagnosis Date Acute OR ([facility]) Myocardial Infarction Acute pain of right knee 02/12/2021 Noted in january of 2021 Historical Black tarry stools 01/25/2021 Noted in 2020 historical BMI 31.0-31.9,adult Cerebrovascular accident (CVA) ([facility]) 10/24/2021 Not current CVA Chronic ischemic heart disease Compression fracture of lumbar vertebra ([facility]) 11/10/2018 Diabetes mellitus with peripheral angiopathy ([facility]) Diarrhea 01/25/2021 Noted in December of 2020 Historical DM type 2, goal A1c below 7 Dyslipidemia, goal LDL below 100 06/06/2009 Essential hypertension with goal blood pressure less than 140/90 Generalized osteoarthritis Inflammatory polyarthropathy ([facility]) Iron deficiency anemia Irritable bowel syndrome Malignant neoplasm of female breast (HCC) Breast, right, mastectomy with SLNB 10/25/2011 Methicillin resistant Staphylococcus aureus infection 10/24/2021 Mild sleep apnea Rheumatoid arthritis ([facility]) 12/28/2017 More specified Dx listed on PL Skin tear of right upper arm without complication 02/12/2021 Noted in 2020 Historical Subclinical hypothyroidism 09/24/2018 TSH 4.35/T4 1.25 Past Surgical History: Procedure Laterality Date ANESTH, TOTAL KNEE REPLACEMENT 09/21/1995 left ANGIOPLASTY RENAL/MESENTERIC,O 1991 COLONOSCOPY, DIAGNOSTIC (RECTUM) 03/22/2018 adenomatous & serrated adenomatous polyps, repeat 6 mo/COLONOSCOPY FLEXIBLE PROXIMAL DIAGNOSTICperformed by Martina Cancino MD at ENDOSCOPY [facility] COLONOSCOPY, DIAGNOSTIC (RECTUM) 09/26/2018 adenomatous polyp, repeat 1 yr/COLONOSCOPY FLEXIBLE PROXIMAL DIAGNOSTIC performed by Martina Cancino MD at ENDOSCOPY [facility] COLONOSCOPY, DIAGNOSTIC (RECTUM) 11/14/2020 benign adenomatous polyps, repeat 3 yrs / COLONOSCOPY FLEXIBLE PROXIMAL DIAGNOSTIC performed by Martina Cancino MD at ENDOSCOPY [facility] COLONOSCOPY, DIAGNOSTIC (RECTUM) 08/18/2022 prep-poor, stool in entire exam / normal scope / no specimens collected / COLONOSCOPY FLEXIBLE PROXIMAL DIAGNOSTIC performed by Mynor Alvarado MD at ENDOSCOPY [facility] ECHO, COMPLETE (2D), TRANS-THORACIC 11/02/2018 mild conc LVH with normal LV size and function EF 70%, grade I diastolic dysfunction EGD, FLEXIBLE, DIAGNOSTIC 05/16/2018 normal bx/ESOPHAGOGASTRODUODENOSCOPY (EGD), FLEXIBLE, TRANSORAL, DIAGNOSTIC performed by Leonora Liu MD at ENDOSCOPY [facility] LAPAROSCOPY, SURGICAL/REMOVE DUCTS 1979 MASTECTOMY, MODIFIED RADICAL 10/24/2010 10/24/2010 right mod. radicala mastectomy with SLNB - [facility] - DR. Gerber MISCELLANEOUS ORDER ([facility] ONLY) 2012 right shoulder replacement MISCELLANEOUS ORDER ([facility] ONLY) left TKR, redo MISCELLANEOUS ORDER ([facility] ONLY) left wrist surgery NECK/CHEST SUBQ TUMOR REMOVAL, 3 CM OR MORE Right 05/22/2014 EXCISION NECK/CHEST SUBQ TUMOR, 3 CM OR MORE performed by Ray Gerber MD at OR [facility] OTHER 03/2006 Right knee replacement OTHER 1998 cholecystectomy OTHER 1992 Angioplasty [place] REMOVE CATARACT, INSERT LENS PROSTH Right 03/26/2021 EXTRACAPSULAR CATARACT REMOVAL WITH INTRAOCULAR LENS performed by Doyle Heredia DO at [facility] REMOVE CATARACT, INSERT LENS PROSTH Left 03/11/2022 LEFT EXTRACAPSULAR CATARACT REMOVAL WITH INTRAOCULAR LENS performed by Doyle Heredia DO at [facility] REPAIR RUPTURED ROTATOR CUFF, ACUTE 06/2012 [facility] TREAT NOSE FX W/STABILIZATION N/A 09/15/2018 CLOSED TREATMENT NASAL FRACTURE WITH STABILIZATION performed by Marlon Rust DO at [facility] US GUIDED BREAST BIOPSY 09/30/2010 Review of patient's allergies indicates: Allergen Reactions Tello Inhibitors Hyperkalemia resulting in 2 hospitalizations Metformin Diarrhea Nadolol Itching Corgard itchy Nitroglycerin Other (Please comment) Headache that is only relieved with Morphine. Nsaids Nausea/vomiting relafen Family History Problem Relation Age of Onset Diabetes Mother Asthma Father Family Status Relation Status Mo at age 59 DM, stroke Fa at age 42 Asthma Sis Alive Bro at age 67 blood clot in neck Bro electricuted Bro suicide [place] Social History Socioeconomic History Marital status: Spouse name: Not on file Number of children: Not on file Years of education: Not on file Highest education level: Not on file Occupational History Not on file Tobacco Use Smoking status: Former Current packs/day: 0.00 Average packs/day: 1 pack/day for 30.0 years (30.0 ttl pk-yrs) Types: Cigarettes Start date: 02/12/1963 Quit date: 02/12/1993 Years since quittin.5 Smokeless tobacco: Never Vaping Use Vaping Use: Never used Substance and Sexual Activity Alcohol use: No Drug use: No Sexual activity: Not on file Other Topics Concern Not on file Social History Narrative Not on file Social Determinants of Health Financial Resource Strain: Not on file Food Insecurity: No Food Insecurity (05/15/2019) Hunger Vital Sign Worried About Running Out of Food in the Last Year: Never true Ran Out of Food in the Last Year: Never true Transportation Needs: Not on file Physical Activity: Not on file Stress: Not on file Social Connections: Not on file Intimate Partner Violence: Not on file Housing Stability: Not on file Review of Systems Constitutional: Positive for fatigue. Negative for activity change, appetite change, chills, diaphoresis, fever and unexpected weight change. Respiratory: Negative for shortness of breath. Cardiovascular: Negative for chest pain, palpitations and leg swelling. Gastrointestinal: Negative for abdominal distention and abdominal pain. Endocrine: Negative. Musculoskeletal: Positive for arthralgias, back pain and gait problem. Skin: Positive for color change (Rt inner buttock, healed abscess/cyst). Negative for wound. Neurological: Positive for weakness and numbness. Negative for dizziness, speech difficulty and light-headedness. Psychiatric/Behavioral: Positive for sleep disturbance. Negative for agitation and behavioral problems. Objective BP 152/88 | Pulse 85 | Temp 35.8 C (96.4 F) (Temporal Artery) | Resp 16 | Ht 1.778 m (5' 10") |Wt 88.4 kg (194 lb 14.4 oz) | SpO2 99% | BMI 27.97 kg/m | BSA 2.09 m Physical Exam Constitutional: General: Elmira Ennis" is not in acute distress. Appearance: Normal appearance. Elmira Ennis" is not ill-appearing, toxic-appearing or diaphoretic. HENT: Head: Normocephalic and atraumatic. Nose: Nose normal. Eyes: Extraocular Movements: Extraocular movements intact. Cardiovascular: Rate and Rhythm: Normal rate. Rhythm irregular. Heart sounds: Murmur heard. Pulmonary: Effort: Pulmonary effort is normal. No respiratory distress. Genitourinary: Musculoskeletal: Right lower leg: No edema. Left lower leg: No edema. Skin: Findings: Lesion present. No erythema. Neurological: Mental Status: Elmira Tavares "Amber" is alert and oriented to person, place, and time. Psychiatric: Behavior: Behavior normal. ASSESSMENT/PLAN: Abscess (Primary) Hypertensive heart disease with chronic diastolic congestive heart failure (HCC) Persistent atrial fibrillation (HCC) HTN, goal below 140/90 Type 2 diabetes mellitus with peripheral angiopathy (HCC) Type 2 diabetes mellitus with hemoglobin A1c goal of less than 7.0% (HCC) Abscess - currently healed , no ABx needed But if recurs, call me back for oral Abx And cont meds Increase aldactone as directed And check BP , update me Chelly Kessler MD documented in this encounter Nursing Notes * Radha Gutierrez CCMA - 08/26/2023 7:39 AM EST Elmira Tavares is a 78 year old female who presents today for Chief Complaint Patient presents with Acute Pt states that she has a sore/bruised area to the gluteus documented in this encounter Plan of Treatment Upcoming Encounters Date Type Department Care Team (Late st Contact Info) Description 10/01/2023 11:10 AM EDT Anticoagulation Pharmacy, [place] [address] [place] [address] [facility] [address] [place] [address] 10/05/2023 9:00 AM EDT Office Visit Cardiology, [address] [place] [address] Corrine Quinn PA-C [address] [place] [address] 10/26/2023 6:20 PM EDT Office Visit [facility] [address] [facility], [place] [id number] Derrek Sparks MD [address] [place] [address] 12/08/2023 10:40 AM EDT Office Visit Rheumatology [address] [place] [address] Arnav Damon MD [address] [place] [address] [place] [address] 05/11/2024 10:15 AM EST Office Visit Ophthalmology, [facility] [address] [place] [address] Doyle Heredia, [address] [facility] [place] [address] Health Maintenance Due Date Last Done Comments [...] Depression Screening 09/09/2023 09/08/2022 HbA1c 12/01/2023 06/01/2023, 0708/2022, 08/10/2022, Additional history exists Diabetic Eye Exam [...] D LEVEL ONCE IN A LIFETIME-USE SMARTSET# 21082 Completed 06/22/2023, 06/01/2023, 01/07/2023, Additional history exists [...] this encounter Medical Devices Implanted Type Area Quilting Machine Operator Device Identifier Shelf Expiration Date Model / Serial / Lot Clip Quick 2.8mm 230cm - [id number] Implanted:Qty: 4 on 11/14/2020 by Martina Cancino MD at ENDOSCOPY [employer] 06/27/2023 HX-202UR.A / / Lens 19.5 [id number] - [id number] - [id number] Implanted:Qty: 1 on 03/26/2021 by Doyle Heredia DO at OR [facility] Right: Eye BRII : SURGICAL 10/29/2025 [id number] / [id number] / Lens 19.5 [id number] - [id number] - [id number] Implanted:Qty: 1 on 03/11/2022 by Doyle Heredia DO at OR [facility] Left: Eye BRII : SURGICAL 10/29/2025 [id number] / [id number] / documented as of this encounter Visit Diagnoses Diagnosis Abscess- Primary Cellulitis and abscess of unspecified site Hypertensive heart disease with chronic diastolic congestive heart failure (HCC) Persistent atrial fibrillation (HCC) Atrial fibrillation HTN, goal below 140/90 Unspecified essential hypertension Type 2 diabetes mellitus with peripheral angiopathy (HCC) Type II or unspecified type diabetes mellitus with peripheral circulatory disorders, not stated as uncontrolled Type 2 diabetes mellitus with hemoglobin A1c goal of less than 7.0% (HCC) documented in this encounter Advance Directives Latest Code Status on File Code Status Date Activated Date Inactivated Comments Full Code 03/11/2022 7:56 AM 03/11/2022 2:41 PM Question Answer Comments Discussion of Advance Directives occurred with: Not Discussed due to patient's condition Care Teams Business Process Engineer Relationship Specialty Start Date End Date Derrek Sparks MD [address] [place] [address] PCP - General Family Medicine 08/04/22 documented as of this encounter
--- OUTSIDE RECORDS SUMMARY | 2024-01-06 14:26 | External Medical Summary | Summary of Care ---
Author Name Unknown Organization [facility] Address [address] [place] [address] Phone [phone] Care Team Providers Care Scientific Database Curator Name Role Phone Derrek Sparks MD Primary Care Provider [phone]- [phone] Reason for Visit * Reason Onset Date Comments Forms Request 09/07/2023 [facility] Diabetic shoes Encounter Details Date Type Department Care Team (Late st Contact Info) Description 09/07/[address] [facility] [address] [place] [address] Derrek Sparks MD [address] [place] [address] Forms Request ([facility] /D... Allergies Active Allergy Reactions Criticality Noted Date Comments Tello Inhibitors 05/08/2021 Hyperkalemia resulting in 2 hospitalizations Metformin Diarrhea 11/05/2022 Nadolol Itching 03/17/1999 Corgard itchy Nitroglycerin Other (Please comment) 02/09/2011 Headache that is only relieved with Morphine. Nsaids Nausea/vomiting 03/17/1999 relafen documented as of this encounter (statuses as of 09/09/2023) Medications Medication Sig Dispensed Refills Start Date [...] 1 tablet in am 0 07/22/2020 Active [employer] Verio w/Device KitIndications:DM type 2 with diabetic peripheral neuropathy (HCC) Use to check blood sugars daily as directed E11.9 1 Kit 0 10/10/2020 Active [employer] Verio In Vitro Strip (Glucose Blood)Indications: DM [...] Oral Tablet (Coreg)Indications :Coronary artery disease involving [place] coronary artery of [place] heart without angina pectoris,HTN, goal below 140/90 [...] as of this encounter (statuses as of 09/09/2023) Active Problems Problem Noted Date Diagnosed Date [...] cancer 11/06/2019 Coronary artery disease invo lving [place] coronary artery of [place] heart without angina pectoris 07/04/2019 Senile osteoporosis 05/15/2019 Nontoxic uninodular goiter 11/17/2018 Gastroesophageal reflux disease without esophagi tis 11/01/2018 Rheumatoid arthritis 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 03/24/2018 HTN, goal below 140/90 03/24/2018 Old ND (myocardial infarction) 03/24/2018 Type 2 diabetes mellitus [...] as of this encounter (statuses as of 09/09/2023) Resolved Problems Problem Noted Date Diagnosed Date [...] negative rheumatoid factor 07/04/2019 09/27/19 22 Old ND (myocardial infarction) 07/04/2019 09/26/2021 Major depression single epis ode, in partial remission 03/23/2019 08/26/2023 Severe obesity with body mas s index (BMI) of 36.0 to 36.9 with serious comorbidity 11/17/2018 Atherosclerosis of [place] co ronary artery of [place] heart without angina pectoris 11/17/201806/2021 Arteriosclerotic dementia wi th depressive features 11/17/2018 12/16/2018 Compression fracture of lumbar vertebra 11/10/2018 11/07/2021 Iron deficiency anemia 05/26/201812/16 Colorectal polyps 04/22/2018 09/12/2018 Rheumatoid arthritis 12/28/2017 023 Overview: More specified Dx listed on PL Acute ND 11/19/2017 11/19/2017 Inflammatory polyarthropathy 11/19/2017 12/16/2018 Loosening [...] as of this encounter (statuses as of 09/09/2023) Immunizations Name Administration Dates Next Due COVID-19 [...] encounter Miscellaneous Notes * Telephone Encounter - Kina Willard OSA - 09/09/2023 12:35 PM EDT 09/09/23 Bhargavi from [facility] called and asked if we rec paperwork for pt. We did rec the paperwork and the forms are on the provider's desk. Fax paperwork and OVN to [phone]. * Telephone Encounter - Maddy Bhagat LPN - 09/07/2023 7:11 AM EDT [facility] forms for Diabetic shoes were placed on the providers desk documented in this encounter Plan of Treatment Upcoming Encounters Date Type Department Care Team (Late st Contact Info) Description 10/01/2023 11:10 AM EDT [facility], [place] [address] [address] [facility] [address] [facility] [address] [facility] [place] [address] 10/05/2023 9:00 AM EDT Office Visit Cardiology, [facility] [address] [place] [address] Corrine Quinn PA-C [address] [address] 10/26/2023 6:20 PM EDT Office Visit Family Practice, [place] [address] [address] [facility] [address] Derrek Sparks MD [address] [place] [address] 12/08/2023 10:40 AM EDT Office Visit Rheumatology [facility] [address] [facility] [place] [address] Arnav Damon MD [facility] [place], [place] [address] 05/11/2024 10:15 AM EST Office Visit Ophthalmology, [facility] [address] [facility] [place] [address] Doyle Heredia, DO [address] [facility] [place] [address] Health Maintenance Due Date Last Done Comments [...] 1111/2022, 04/29/2021, Additional history exists Albumin/Creatinine Ratio 06/01/20242 [...] D LEVEL ONCE IN A LIFETIME-USE SMARTSET# [id number] Completed 06/22/2023, 06/01/2023, 01/07/2023, Additional history exists [...] encounter Medical Devices Implanted Type Area Home Health Aide Device Identifier Shelf Expiration Date Model / Serial / Lot Clip Quick 2.8mm 230cm - [id number] Implanted:Qty: 4 on 11/14/2020 by Martina Cancino MD at ENDOSCOPY [facility] [employer] 06/27/2023 HX-202UR.A / / Lens 19.5 [id number] - [id number] - [id number] Implanted:Qty: 1 on 03/26/2021 by Doyle Heredia DO at OR [facility] Right: Eye BRII : SURGICAL 10/29/2025 [id number] / [id number] / Lens 19.5 [id number] - [id number] - [id number] Implanted:Qty: 1 on 03/11/2022 by Doyle Heredia DO at OR [facility] Left: Eye BRII : SURGICAL 10/29/2025 [id number] / [id number] / documented as of this encounter Advance Directives Latest Code Status on File Code Status Date Activated Date Inactivated Comments Full Code 03/11/2022 7:56 AM 03/11/2022 2:41 PM Question Answer Comments Discussion of Advance Directives occurred with: Not Discussed due to patient's condition Care Teams Scientific Database Curator Relationship Specialty Start Date End Date Derrek Sparks MD [address], [place] [id number] PCP - General Family Medicine 08/04/22 documented as of this encounter
--- OUTSIDE RECORDS SUMMARY | 2024-01-06 14:26 | External Medical Summary | Summary of Care ---
Author Name Unknown Organization [facility] Address [address] [place] [address] Phone [phone] Care Team Providers Care Activities Officer Name Role Phone Derrek Sparks MD Primary Care Provider +1- [phone] Reason for Visit * Reason Onset Date Comments Forms Request 09/07/2023 [facility] Diabetic shoes Encounter Details Date Type Department Care Team (Late st Contact Info) Description 09/07/2023 Telephone [facility] [address] [place] [address] Derrek Sparks MD [address] [place] [address] Forms Request ([facility] /D... Allergies Active Allergy Reactions [...] 1 tablet in am 0 07/22/2020 Active [employer] Verio w/Device KitIndications:DM type 2 with diabetic peripheral neuropathy (HCC) Use to check blood sugars daily as directed E11.9 1 Kit 0 10/10/2020 Active [employer] Verio In Vitro Strip (Glucose Blood)Indications :DM [...] Oral Tablet (Coreg)Indication s:Coronary artery disease involving [place] coronary artery of [place] heart without angina pectoris,HTN, goal below 140/90 [...] cancer 11/06/2019 Coronary artery disease invo lving [place] coronary artery of [place] heart without angina pectoris 07/04/2019 Senile osteoporosis 05/15/2019 Nontoxic uninodular goiter 11/17/2018 Gastroesophageal reflux disease without esophagi tis 11/01/2018 Rheumatoid arthritis 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 03/24/2018 HTN, goal below 140/90 03/24/2018 Old IA (myocardial infarction) 03/24/2018 Type 2 diabetes mellitus [...] negative rheumatoid factor 07/04/2019 09/27/19 22 Old [place] (myocardial infarction) 07/04/2019 09/26/2021 Major depression single epis ode, in partial remission 03/23/2019 08/26/2023 Severe obesity with body mas s index (BMI) of 36.0 to 36.9 with serious comorbidity 11/17/2018 Atherosclerosis of [place] co ronary artery of [place] heart without angina pectoris 11/17/201806/2021 Arteriosclerotic dementia wi th depressive features 11/17/2018 12/16/2018 Compression fracture of lumbar vertebra 11/10/2018 11/07/2021 Iron deficiency anemia 05/26/201812/16 Colorectal polyps 04/22/2018 09/12/2018 Rheumatoid arthritis 12/28/2017 023 Overview: More specified Dx listed on PL Acute IA 11/19/2017 11/19/2017 Inflammatory polyarthropathy 11/19/2017 12/16/2018 Loosening [...] this and contact with an update. Call back:[phone] * Telephone Encounter - Edwige Alvarez LPN [...] 09/09/2023 12:35 PM EDT 09/09/23 Bhargavi from [facility] called and asked if we rec paperwork for pt. We did rec the paperwork and the forms are on the provider's desk. Fax paperwork and OVN to [phone]. * Telephone Encounter - Maddy Bhagat LPN - 09/07/2023 7:11 AM EDT [facility] forms for Diabetic shoes were placed on the providers desk documented in this encounter Plan of Treatment Upcoming Encounters Date Type Department Care Team (Late st Contact Info) Description 10/01/2023 11:10 AM EDT Anticoagulation Pharmacy, [place] [address] [place] [address] [facility] [address] [place] [address] 10/05/2023 9:00 AM EDT Office Visit Cardiology, [facility] [address] [facility] [place] [address] Corrine Quinn PA-C [address] [place] [address] 10/26/2023 6:20 PM EDT Office Visit Family Practice, [place] [address] [place] [facility] [place] [id number] Derrek Sparks MD [address] [place] [address] 12/08/2023 10:40 AM EDT Office Visit Rheumatology [place] [id number] [place] [address] Arnav Damon MD [address] [place] [address] [place] [address] 05/11/2024 10:15 AM EST Office Visit Ophthalmology, [facility] [address] [facility] [place] [address] Doyle Heredia, DO [address] [place] [facility] [place] [address] Health Maintenance Due Date Last Done Comments [...] D LEVEL ONCE IN A LIFETIME-USE SMARTSET# [id number] Completed 06/22/2023, 06/01/2023, 01/07/2023, Additional history exists [...] this encounter Medical Devices Implanted Type Area Hl7 Interface Developer Device Identifier Shelf Expiration Date Model / Serial / Lot Clip Quick 2.8mm 230cm - [id number] Implanted:Qty: 4 on 11/14/2020 by Martina Cancino MD at ENDOSCOPY [facility] [employer] 06/27/2023 HX-202UR.A / / Lens 19.5 [id number] - [id number] - [id number] Implanted:Qty: 1 on 03/26/2021 by Doyle Heredia DO at OR [facility] Right: Eye BRII : SURGICAL 10/29/2025 [id number] / [id number] / Lens 19.5 [id number] - [id number] - [id number] Implanted:Qty: 1 on 03/11/2022 by Doyle Heredia DO at OR [facility] Left: Eye BRII : SURGICAL 10/29/2025 [id number] / [id number] / documented as of this encounter Advance Directives Latest Code Status on File Code Status Date Activated Date Inactivated Comments Full Code 03/11/2022 7:56 AM 03/11/2022 2:41 PM Question Answer Comments Discussion of Advance Directives occurred with: Not Discussed due to patient's condition Care Teams Activities Officer Relationship Specialty Start Date End Date Derrek Sparks MD [address] [place] [address] PCP - General Family Medicine 08/04/22 documented as of this encounter
--- OUTSIDE RECORDS SUMMARY | 2024-01-06 14:26 | External Medical Summary | Summary of Care ---
Author Name Unknown Organization [facility] Address [address] [place] [address] Phone [phone] Care Team Providers Care Printing Plate Setter Name Role Phone Derrek Sparks MD Primary Care Provider +1- [phone] Reason for Visit * Reason Onset Date Comments Forms Request 09/07/2023 [facility] Diabetic shoes Encounter Details Date Type Department Care Team (Late st Contact Info) Description 09/07/2023 Telephone [facility] [address] [place] [address] Derrek Sparks MD [address] [place] [address] Forms Request ([facility] /D... Allergies Active Allergy [...] 1 tablet in am 0 07/22/2020 Active [employer] Verio w/Device KitIndications:DM type 2 with diabetic peripheral neuropathy (HCC) Use to check blood sugars daily as directed E11.9 1 Kit 0 10/10/2020 Active [employer] Verio In Vitro Strip (Glucose Blood)Indications: DM [...] Oral Tablet (Coreg)Indications :Coronary artery disease involving [place] coronary artery of [place] heart without angina pectoris,HTN, goal below 140/90 [...] cancer 11/06/2019 Coronary artery disease invo lving [place] coronary artery of [place] heart without angina pectoris 07/04/2019 Senile osteoporosis [...] 36.9 with serious comorbidity 11/17/2018 Atherosclerosis of [place] co ronary artery of [place] heart without angina pectoris 11/17/201806/2021 Arteriosclerotic dementia [...] encounter Miscellaneous Notes * Telephone Encounter - Edwige Alvarez LPN [...] 09/09/2023 12:35 PM EDT 09/09/23 Bhargavi from [facility] called and asked if we rec paperwork for pt. We did rec the paperwork and the forms are on the provider's desk. Fax paperwork and OVN to [phone]. * Telephone Encounter - Maddy Bhagat LPN - 09/07/2023 7:11 AM EDT [facility] forms for Diabetic shoes were placed on the providers desk documented in this encounter Plan of Treatment Upcoming Encounters Date Type Department Care Team (Late st Contact Info) Description 10/01/2023 11:10 AM EDT Anticoagulation Pharmacy, [place] [address] [place] [address] [facility] [address] [place] [address] 10/05/2023 9:00 AM EDT Office Visit Cardiology, [facility] [address] [facility] [place] [address] Corrine Quinn PA-C [address] [facility] [place] [address] 10/26/2023 6:20 PM EDT Office Visit Family Practice, [place] [address] [place] [facility] [place] [address] Derrek Sparks MD [address] [place] [address] 12/08/2023 10:40 AM EDT Office Visit Rheumatology [address] [place] [address] Arnav Damon MD [address] [place] [address] [place] [address] 05/11/2024 10:15 AM EST Office Visit Ophthalmology, [facility] 132 [facility] [place] [address] Doyle Heredia, DO [address] [place] [address] Health Maintenance Due Date Last Done Comments [...] D LEVEL ONCE IN A LIFETIME-USE SMARTSET# [id number] Completed 06/22/2023, 06/01/2023, 01/07/2023, Additional history exists [...] this encounter Medical Devices Implanted Type Area Medical Office Technologist Device Identifier Shelf Expiration Date Model / Serial / Lot Clip Quick 2.8mm 230cm - [id number] Implanted:Qty: 4 on 11/14/2020 by Martina Cancino MD at ENDOSCOPY [facility] [employer] 06/27/2023 HX-202UR.A / / Lens 19.5 [id number] - [id number] - [id number] Implanted:Qty: 1 on 03/26/2021 by Doyle Heredia DO at OR [facility] Right: Eye BRII : SURGICAL 10/29/2025 [id number] / [id number] / Lens 19.5 [id number] - [id number] - [id number] Implanted:Qty: 1 on 03/11/2022 by Doyle Heredia DO at OR [facility] Left: Eye BRII : SURGICAL 10/29/2025 [id number] / [id number] / documented as of this encounter Advance Directives Latest Code Status on File Code Status Date Activated Date Inactivated Comments Full Code 03/11/2022 7:56 AM 03/11/2022 2:41 PM Question Answer Comments Discussion of Advance Directives occurred with: Not Discussed due to patient's condition Care Teams Printing Plate Setter Relationship Specialty Start Date End Date Derrek Sparks MD [address] [place], [place] [id number] PCP - General Family Medicine 08/04/22 documented as of this encounter
--- OUTSIDE RECORDS SUMMARY | 2024-01-06 14:26 | External Medical Summary | Summary of Care ---
Author Name Unknown Organization [facility] Address [address] [place] [address] Phone [phone] Care Team Providers Care County Records Management Officer Name Role Phone Derrek Sparks MD Primary Care Provider +1- [phone] Reason for Visit * Reason Onset Date Comments Med Request 09/15/2023 Encounter Details Date Type Department Care Team (Late st Contact Info) Description 09/15/2023 Telephone [facility] [address] [place] [address] Derrek Sparks MD [address] [place] [address] Med Request Allergies Active Allergy Reactions Criticality Noted Date [...] 1 tablet in am 0 07/22/2020 Active [employer] Verio w/Device KitIndications:DM type 2 with diabetic peripheral neuropathy (HCC) Use to check blood sugars daily as directed E11.9 1 Kit 0 10/10/2020 Active [employer] Verio In Vitro Strip (Glucose Blood)Indications :DM [...] Oral Tablet (Coreg)Indication s:Coronary artery disease involving [place] coronary artery of [place] heart without angina pectoris,HTN, goal below 140/90 [...] abd pain. 60 Capsule 0 09/15/2023 Active Dicyclomine HCl 10 MG Oral Capsule [...] cancer 11/06/2019 Coronary artery disease invo lving [place] coronary artery of [place] heart without angina pectoris 07/04/2019 Senile osteoporosis 05/15/2019 Nontoxic uninodular goiter 11/17/2018 Gastroesophageal reflux disease without esophagi tis 11/01/2018 Rheumatoid arthritis 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 03/24/2018 HTN, goal below 140/90 03/24/2018 Old [place] (myocardial infarction) 03/24/2018 Type 2 diabetes mellitus [...] negative rheumatoid factor 07/04/2019 09/27/19 22 Old NC (myocardial infarction) 07/04/2019 09/26/2021 Major depression single epis ode, in partial remission 03/23/2019 08/26/2023 Severe obesity with body mas s index (BMI) of 36.0 to 36.9 with serious comorbidity 11/17/2018 Atherosclerosis of [place] co ronary artery of [place] heart without angina pectoris 11/17/201806/2021 Arteriosclerotic dementia wi th depressive features 11/17/2018 12/16/2018 Compression fracture of lumbar vertebra 11/10/2018 11/07/2021 Iron deficiency anemia 05/26/201812/16 Colorectal polyps 04/22/2018 09/12/2018 Rheumatoid arthritis 12/28/2017 023 Overview: More specified Dx listed on PL Acute NC 11/19/2017 11/19/2017 Inflammatory polyarthropathy 11/19/2017 12/16/2018 Loosening [...] encounter Miscellaneous Notes * Telephone Encounter - Braden Tiara Jeff, [facility] - 09/15/2023 12:30 PM EDT Did you pend patient's preferred pharmacy and medication before forwarding?yes Pharmacy: [id number] Pending Prescriptions: Disp Refills Dicyclomine HCl 10 MG Oral Capsule (Benty*60 Cap*0 Sig: Take 1 capsule by mouth twice per day as needed for abd pain. Last Visit: 08/26/2023 (in office), Visit date not found (telemedicine) Next Visit: 10/26/2023 If no future appointments scheduled, and last appointment is greater than a year ago, please schedule patient for a follow-up appointment Last date the medication was ordered: 11/11/22 Is this request for a controlled substance?No [...] Description 10/01/2023 11:10 AM EDT Antico[facility] Pharm[facility], [place] [address] [facility] [address] [facility] [address] [facility] [address] 10/05/2023 9:00 AM EDT Office Visit Cardiology, [facility] [address] [place] [address] Corrine Quinn PA-C [address] [address] 10/26/2023 6:20 PM EDT Office Visit Family Practice, [place] [address] [facility] [address] Derrek [facility]ks MD [address] [facility] [address] 12/08/2023 10:40 AM EDT Office Visit Rheumatology [facility] [address] [facility] [place] [address] Arnav Damon MD [address] [facility] [place] [address] 05/11/2024 10:15 AM EST Office Visit Ophthalmology, [facility] [address] [place] [address] Doyle Heredia, DO [address] [place] [id number] Health Maintenance Due Date Last Done Comments [...] D LEVEL ONCE IN A LIFETIME-USE SMARTSET# [id number] Completed 06/22/2023, 06/01/2023, 01/07/2023, Additional history exists [...] this encounter Medical Devices Implanted Type Area Car Salesman Device Identifier Shelf Expiration Date Model / Serial / Lot Clip Quick 2.8mm 230cm - [id number] Implanted:Qty: 4 on 11/14/2020 by Martina Cancino MD at ENDOSCOPY [facility] [employer] [facility] 06/27/2023 HX-202UR.A / / Lens 19.5 [id number] - [id number] - [id number] Implanted:Qty: 1 on 03/26/2021 by Doyle Heredia DO at OR [facility] Right: Eye BRII : SURGICAL 10/29/2025 [id number] / [id number] / Lens 19.5 [id number] - [id number] - [id number] Implanted:Qty: 1 on 03/11/2022 by Doyle Heredia DO at OR [facility] Left: Eye BRII : SURGICAL 10/29/2025 [id number] / [id number] / documented as of this encounter Visit Diagnoses Diagnosis Abdominal cramps Abdominal pain, unspecified site documented in this encounter Advance Directives Latest Code Status on File Code Status Date Activated Date Inactivated Comments Full Code 03/11/2022 7:56 AM 03/11/2022 2:41 PM Question Answer Comments Discussion of Advance Directives occurred with: Not Discussed due to patient's condition Care Teams County Records Management Officer Relationship Specialty Start Date End Date Derrek Sparks MD [address] [facility] [place] [address] PCP - General Family Medicine 08/04/22 documented as of this encounter
--- OUTSIDE RECORDS SUMMARY | 2024-01-06 14:26 | External Medical Summary | Summary of Care ---
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 Nsaids Nausea/vomiting 03/17/1999 relafen documented as of this encounter (statuses as of 08/25/2023) Medications Medication Sig Dispensed Refills Start Date [...] 1 tablet in am 0 07/22/2020 Active [employer] Verio w/Device KitIndications:DM type 2 with diabetic peripheral neuropathy (HCC) Use to check blood sugars daily as directed E11.9 1 Kit 0 10/10/2020 Active [employer] Verio In Vitro Strip (Glucose Blood)Indications: DM [...] Oral Tablet (Coreg)Indications :Coronary artery disease involving [place] coronary artery of [place]ht[place] heart without angina pectoris,HTN, goal below 140/90 [...] as of this encounter (statuses as of 08/25/2023) Active Problems Problem Noted Date Diagnosed Date [...] cancer 11/06/2019 Coronary artery disease invo lving caht[place] coronary artery of caht[place] heart without angina pectoris 07/04/2019 Senile osteoporosis 05/15/2019 Major depression single episode, in partial yimi ssion 03/23/2019 Nontoxic uninodular goiter 11/17/2018 Gastroesophageal reflux disease without esophagi tis 11/01/2018 Rheumatoid arthritis 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 03/24/2018 HTN, goal below 140/90 03/24/2018 Old [place] (myocardial infarction) 03/24/2018 Type 2 diabetes mellitus [...] as of this encounter (statuses as of 08/25/2023) Resolved Problems Problem Noted Date Diagnosed Date [...] negative rheumatoid factor 07/04/2019 09/27/19 22 Old FL (myocardial infarction) 07/04/2019 09/26/2021 Severe obesity with body mas s index (BMI) of 36.0 to 36.9 with serious comorbidity 11/17/2018 Atherosclerosis of caht[place] co ronary artery of cahto heart without angina pectoris 11/17/201806/2021 Arteriosclerotic dementia wi th depressive features 11/17/2018 12/16/2018 Compression fracture of lumbar vertebra 11/10/2018 11/07/2021 Iron deficiency anemia 05/26/201812/16 Colorectal polyps 04/22/2018 09/12/2018 Rheumatoid arthritis 12/28/2017 023 Overview: More specified Dx listed on PL Acute FL 11/19/2017 11/19/2017 Inflammatory polyarthropathy 11/19/2017 12/16/2018 Loosening [...] as of this encounter (statuses as of 08/25/2023) Immunizations Name Administration Dates Next Due COVID-19 [...] Progress Notes * Alanna Osborn RPh - 08/25/2023 1:50 PM EST Medication Therapy Disease Management - Anticoagulation Patient: Elmira Tavares | : 1945 Subjective Patient-Reported Symptoms: Patient Findings Negatives: Signs/symptoms of thrombosis, Signs/symptoms of bleeding, Change in health, Change in alcohol use, Change in activity, Upcoming invasive procedure, Missed doses, Extra doses, Change in medications, Change in diet/appetite, Bruising Objective Current Warfarin Dose As of 08/25/2023 Warfarin maintenance plan: 6 mg (4 mg x 1.5) every Mon, Fri; 4 mg (4 mg x 1) all other days INR Result As of 08/25/2023 INR goal: 1.8-2.2 INR used for dosin.0 (08/25/2023) Assessment & Plan Warfarin Plan As of 08/25/2023 Full warfarin instructions: 6 mg every Mon, Fri; 4 mg all other days No change documented: Alanna Osborn RPh Next INR check: 10/01/2023 Repeat PT/INR in 5 week(s) Weekly dose: not changed Additional Dosing Information: Description Can speak with daughterYa (lives with patient)- who manages her medicine Alanna Osborn [facility] Clinical Pharmacist 08/25/2023, 1:50 PM documented in this encounter Plan of Treatment Upcoming Encounters Date Type Department Care Team (Late st Contact Info) Description 08/26/2023 7:40 AM EST Office Visit [facility] [address] [facility] [address] Chelly Kessler MD [address] [facility] [address] 10/01/2023 11:10 AM EDT Anticoagulation Pharmacy, [place] [address] [place] [address] [facility] [address] [place] [address] 10/05/2023 9:00 AM EDT Office Visit Cardiology, [facility] [address] [facility] [place] [address] Corrine Quinn PA-C [address] [facility] [place] [address] 10/26/2023 6:20 PM EDT Office Visit Family Practice, [place] [address] [facility] [place] [address] Derrek Sparks MD [address] [place] [address] 12/08/2023 10:40 AM EDT Office Visit Rheumatology [address] [place] [address] Arnav Damon MD [address] [place] [address], [place] [address] 05/11/2024 10:15 AM EST Office Visit Ophthalmology, [facility] [address] [facility] [place] [address] Doyle Heredia, DO [address] [place] [address] Health Maintenance Due Date Last Done Comments Zoster Vaccines (2 of 3) 03/11/2016 01/15/2016 Pneumococcal Vaccine: 65+ Years (3 of 3 - PPSV23 or PCV20) 03/15/2019 03/15/2018, 01/12/2002, 06/28/2001, Additional history exists COVID-19 Vaccine (3 2022-24 season) 2023 10/30/2020, 10/09/2020 *NEPHROLOGY REFERRAL [...] D LEVEL ONCE IN A LIFETIME-USE SMARTSET# [id number] Completed 06/22/2023, 06/01/2023, 01/07/2023, Additional history exists [...] this encounter Medical Devices Implanted Type Area Real Estate Listing Consultant Device Identifier Shelf Expiration Date Model / Serial / Lot Clip Quick 2.8mm 230cm - [id number] Implanted:Qty: 4 on 11/14/2020 by Martina Cancino MD at ENDOSCOPY [facility] [address] [employer] [facility] 06/27/2023 HX-202UR.A / / Lens 19.5 [id number] - [id number] - [id number] Implanted:Qty: 1 on 03/26/2021 by Doyle Heredia DO at OR [facility] [address] Right: Eye BRII : SURGICAL 10/29/2025 [id number] / [id number] / Lens 19.5 [id number] - [id number] - [id number] Implanted:Qty: 1 on 03/11/2022 by Doyle Heredia DO at OR [facility] [address] Left: Eye BRII : SURGICAL 10/29/2025 [id number] / [id number] / documented as of this encounter Procedures Procedure Name Priority Date/Time Associated Diagnosis Comments INR FINGERSTICK, POINT OF CARE STAT 08/25/2023 1:54 PM EST Longstanding persistent atrial fibrillation (HCC) 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 documented in this encounter Results * INR FINGERSTICK, POINT OF CARE (08/25/2023 1:54 PM EST) Fingerstick INR 2.0 INR 1:55 PM EST [facility]-01 Blood 08/25/2023 1:54 PM EST 08/25/2023 1:55 PM EST [facility] 56-01 - 08/25/2023 1:55 PM EST Therapeutic ranges for non-operative patients: Prophylaxsis/treatment of DVT: (Range:2.0-3.0) Treatment of pulmonary embolism:(Range:2.0-3.0) Prevention of systemic embolism from: -tissue heart valves -acute myocardial infarction -valvular heart disease -atrial fibrillation (Range: 2.0-3.0) Mechanical prosthetic valves: (Range: 2.5-3.5) [place] Osborn [facility] LAB POINT OF CARE TEST DOCKED DEVICE UNSOLICITED RESULTS [facility] [address] [place] [address] documented in this encounter Visit Diagnoses Diagnosis Longstanding persistent atrial fibrillation (HCC)- Primary Anticoagulation management encounter Encounter for therapeutic drug monitoring 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
--- OUTSIDE RECORDS SUMMARY | 2024-01-06 14:27 | External Medical Summary | Summary of Care ---
Author Name Unknown Organization [facility] Address [address] [place] [address] Phone [phone] Care Team Providers Care Mender Knit Goods Name Role Phone Derrek Sparks MD Primary Care Provider [phone]- [phone] Reason for Visit * Reason Onset Date Comments Health Maintenance 07/29/2023 Encounter Details Date Type Department Care Team (Late st Contact Info) Description 07/29/[address] [facility] [address] [place] [address] Derrek Sparks MD [address] [place] [address] Health Maintenance Allergies Active Allergy Reactions Criticality Noted Date Comments Tello Inhibitors 05/08/2021 Hyperkalemia resulting in 2 hospitalizations Metformin Diarrhea 11/05/2022 Nadolol Itching 03/17/1999 Corgard itchy Nitroglycerin Other (Please comment) 02/09/2011 Headache that is only relieved with Morphine. Nsaids Nausea/vomiting 03/17/1999 relafen documented as of this encounter (statuses as of 07/29/2023) Medications Medication Sig Dispensed Refills Start Date [...] 1 tablet in am 0 07/22/2020 Active [employer] Verio w/Device KitIndications:DM type 2 with diabetic peripheral neuropathy (HCC) Use to check blood sugars daily as directed E11.9 1 Kit 0 10/10/2020 Active [employer] Verio In Vitro Strip (Glucose Blood)Indications: DM [...] bilateral feet. 150 g 2 07/07/2022 Active Terazosin HCl 2 MG Oral CapsuleIndications :HTN, goal below 140/80,Dizziness TAKE TWO CAPSULES BY MOUTH ONCE DAILY AT BEDTIME 180 Capsule 3 07/15/2022 Active Valsartan 160 MG Oral Tablet (Diovan) Take 1 Tablet by mouth daily. 0 07/15/2022 Active cloNIDine HCl 0.1 MG Oral Tablet (Catapres)Indicati ons:HTN, goal below 140/80 TAKE 1 TABLET BY MOUTH IN THE MORNING AND 1 TABLET BEFORE BEDTIME. 180 Tablet 3 10/26/2022 Active hydrALAZINE HCl 50 MG Oral Tablet (Apresoline)Indica tions:HTN, goal below 140/90 Take 1 Tablet by mouth in the morning and 1 Tablet at noon and 1 Tablet before bedtime. 270 Tablet 3 11/05/2022 Active Dicyclomine HCl 10 MG Oral Capsule [...] before breakfast. 90 Capsule 3 02/08/2023 Active amLODIPine Besylate 5 MG Oral Tablet (Norvasc)Indicatio ns:Resistant hypertension,HTN, goal below 140/90,Longstandin g persistent atrial fibrillation (HCC),Atherosclero sis of aorta (HCC) Take 1 Tablet by mouth in the morning and 1 Tablet before bedtime. 180 Tablet 1 05/07/2023 Active Carvedilol 25 MG Oral Tablet (Coreg)Indications :Coronary artery disease involving [place] coronary artery of [place] heart without angina pectoris,HTN, goal below 140/90 [...] [facility] 135 Tablet 1 07/21/2023 Active Spironolactone 25 MG Oral Tablet (Aldactone)Indicat ions:HTN, goal below 130/80 Take 1 Tablet by mouth in the morning. 0 07/29/2023 Active documented as of this encounter (statuses as of 07/29/2023) Active Problems Problem Noted Date Diagnosed Date [...] cancer 11/06/2019 Coronary artery disease invo lving [place] coronary artery of [place] heart without angina pectoris 07/04/2019 Senile osteoporosis 05/15/2019 Major depression single episode, in partial iymi ssion 03/23/2019 Nontoxic uninodular goiter 11/17/2018 Gastroesophageal [...] as of this encounter (statuses as of 07/29/2023) Resolved Problems Problem Noted Date Diagnosed Date [...] 22 Old IA (myocardial infarction) 07/04/2019 09/26/2021 Severe obesity with body mas s index (BMI) of 36.0 to 36.9 with serious comorbidity 11/17/2018 Atherosclerosis of [place] co ronary artery of [place] heart without angina pectoris 11/17/201806/2021 Arteriosclerotic dementia [...] as of this encounter (statuses as of 07/29/2023) Immunizations Name Administration Dates Next Due COVID-19 [...] Date Smoking Tobacco: Former Cigarettes 1 30 Q uit: 02/12/1993 Smokeless Tobacco: Never Alcohol Use Standard [...] encounter Miscellaneous Notes * Telephone Encounter - Elodia Oscar LPN - 07/29/2023 3:46 PM EST Care Gaps Comprehensive Care Outreach Last Office/Telemedicine Visit: 05/07/2023 (in office), Visit date not found (telemedicine) Next Office Visit: 10/26/2023 Hemoglobin AIC Results: Lab Results Component Value Date/Time HEMOGLOBIN A1C - [facility] 6.6 (H) 06/01/2023 10:44 AM HEMOGLOBIN A1C - [facility] 6.9 (H) 01/07/2023 09:22 AM HEMOGLOBIN A1C - [facility] 8.4 (H) 08/10/2022 12:14 PM HEMOGLOBIN A1C - [facility] 5.5 07/05/2020 01:05 PM HEMOGLOBIN A1C - [facility] 6.4 (H) 01/03/2020 01:10 PM HEMOGLOBIN A1C - [facility] 8.0 (H) 05/01/2019 07:54 AM BP Readings from Last 1 Encounters: 07/02/23 180/98 Reviewed Health Maintenance below: Health Maintenance Topic Date Due Hepatitis B (1 of 3 - Risk 3-dose series) Never done Zoster Vaccines (2 of 3) 03/11/2016 Pneumococcal Vaccine: 65+ Years (3 - PPSV23 or PCV20) 03/15/2019 COVID-19 Vaccine (3 - season) 2023 *NEPHROLOGY REFERRAL DUE TO RESISTANT HTN Never done Diabetic Foot Exam 07/07/2023 Depression Screening 09/09/2023 HbA1c 12/01/2023 Awv my g Care Gap Outreach Action Taken: [employer] message sent documented in this encounter Plan of Treatment Upcoming Encounters Date Type Department Care Team (Late st Contact Info) Description 08/25/2023 1:50 PM EST Anticoagulation Pharmacy, [place] [address] [address] [place], [facility] [address] [address] 10/05/2023 9:00 AM EDT Office Visit Cardiology, [facility] [address] [facility] [place] [address] Corrine Quinn PA-C [address] [facility] [place] [address] 10/26/2023 6:20 PM EDT Office Visit Family Practice, [place] [address] [address] Derrek Sparks MD [address] [facility] [address] 12/08/2023 10:40 AM EDT Office Visit Rheumatology [address] [place] [address] Aranv Damon MD [facility], [place] [address] 05/11/2024 10:15 AM EST Office Visit Ophthalmology, [facility] [address] [facility] [place] [address] Doyle Heredia, DO [address] [place] [address] Health Maintenance Due Date Last Done Comments Hepatitis B (1 of 3 - Risk 3-dose series) 2004 Zoster Vaccines (2 of 3) 03/11/2016 01/15/2016 Pneumococcal Vaccine: 65+ Years (3 - PPSV23 or PCV20) 03/15/2019 03/15/2018, 01/12/2002, [...] 06/01/2023, 07/29, 04/21/2021, Additional history exists GFR 07/28/2024 07/28/2023, 05/29, 06/01/2023, Additional history exists COLONOSCOPY-EVERY 3 YRS AGES 18-100 08/18/2025 08/18/2022, 08/18/2022, 11/14/2020, Additional history exists DTaP,Tdap,and Td Vaccines (4 - Td or Tdap) 03/15/2028 03/15/2018, 03/15/2018, 01/25/2017, Additional history exists COLONOSCOPY-ANNUAL AGES 18-100 Discontinued 08/18/2022, 08/18/2022, 11/14/2020, Additional history exists Influenza Vaccine (FLU shot) Completed 04/13/2023, 03/13/2021, 03/13/2021, Additional history exists VITAMIN D LEVEL ONCE IN A LIFETIME-USE SMARTSET# 48941 Completed 06/22/2023, 06/01/2023, 01/07/2023, Additional history exists GARDASIL-HPV IMMUNIZATION SERIES Aged Out No longer eligible based on patient's age to complete this topic MENINGOCOCCAL (MENACTRA/MENVEO) Aged Out No longer eligible based on patient's age to complete this topic documented as of this encounter Medical Devices Implanted Type Area Career Development Facilitator Device Identifier Shelf Expiration Date Model / Serial / Lot Clip Quick 2.8mm 230cm - [id number] Implanted:Qty: 4 on 11/14/2020 by Martina Cancino MD at ENDOSCOPY [facility] [employer] 06/27/2023 HX-202UR.A / / Lens 19.5 [id number] - [id number] - [id number] Implanted:Qty: 1 on 03/26/2021 by Doyle Heredia DO at OR [facility] Right: Eye BRII : SURGICAL 10/29/2025 [id number] / [id number] / Lens 19.5 [id number] - [id number] - [id number] Implanted:Qty: 1 on 03/11/2022 by Doyle Heredia DO at OR [facility] Left: Eye BRII : SURGICAL 10/29/2025 [id number] / [id number] / documented as of this encounter Advance Directives Latest Code Status on File Code Status Date Activated Date Inactivated Comments Full Code 03/11/2022 7:56 AM 03/11/2022 2:41 PM Question Answer Comments Discussion of Advance Directives occurred with: Not Discussed due to patient's condition Care Teams Mender Knit Goods Relationship Specialty Start Date End Date Derrek Sparks MD [address] [place] [address] PCP - General Family Medicine 08/04/22 documented as of this encounter
--- OUTSIDE RECORDS SUMMARY | 2024-01-06 14:27 | External Medical Summary ---
Author Name Unknown Address Unknown Organization K01:[facility] [place] [address] [place] [address] Laboratory Report Ordering Provider Test Date Status TONY ELY 08/05/2023 10:11:04 Final Observation Date Value Abnormality Reference (Units ) Status BUN 08/05/2023 10:11:04 12 6-20 (mg/dL) Final Creatinine 08/05/2023 10:11:04 0.8 0.5-1.0 (mg/dL) Final Glomerular filtration rate/1.73 sq M.predicted [Volume Rate/Area] in Serum, Plasma or Blood by Creatinine-based formula (CKD-EPI) 08/05/2023 10:11:04 75 >=60 (mL/min) Final eGFR is calculated based on the CKD-EPI 2020 equation SODIUM 08/05/2023 10:11:04 138 135-146 (m mol/L) Final Potassium 08/05/2023 10:11:04 3.6 3.5-5.1 (m mol/L) Final Cl 08/05/2023 10:11:04 99 98-107 (mm ol/L) Final CO2 08/05/2023 10:11:04 25 22-32 (mmo l/L) Final Anion gap 08/05/2023 10:11:04 14 7-15 (mmol /L) Final Glucose 08/05/2023 10:11:04 201 Above high normal 70 -120 (mg/dL) Final Calcium 08/05/2023 10:11:04 9.5 8.4-10.2 ( mg/dL) Final Performing Location [facility] [place] [address] [place] [address]
--- OUTSIDE RECORDS SUMMARY | 2024-01-06 14:27 | External Medical Summary | Summary of Care ---
Author Name Unknown Organization [facility] Address [address] [place] [address] Phone [phone] Care Team Providers Care Cartridge Loader Name Role Phone Derrek Sparks MD Primary Care Provider +1- [phone] Reason for Visit * Reason Comments Outpatient Testing Encounter Details Date Type Department Care Team (Late st Contact Info) Description 08/05/2023 10:10 AM EST Laboratory Laboratory, [place] [address] [place] [address] [place], [facility] [address] [place], [place] [id number] HTN, goal below 140/90; Localized edema; PVD (peripheral vascular disease) (HCC); Chronic diastolic congestive heart failure (HCC) Allergies Active Allergy Reactions Criticality Noted Date Comments Tello Inhibitors 05/08/2021 Hyperkalemia resulting in 2 hospitalizations Metformin Diarrhea 11/05/2022 Nadolol Itching 03/17/1999 Corgard itchy Nitroglycerin Other (Please comment) 02/09/2011 Headache that is only relieved with Morphine. Nsaids Nausea/vomiting 03/17/1999 relafen documented as of this encounter (statuses as of 08/05/2023) Medications Medication Sig Dispensed Refills Start Date [...] 1 tablet in am 0 07/22/2020 Active [employer] Verio w/Device KitIndications:DM type 2 with diabetic peripheral neuropathy (HCC) Use to check blood sugars daily as directed E11.9 1 Kit 0 10/10/2020 Active [employer] Verio In Vitro Strip (Glucose Blood)Indications: DM [...] Oral Tablet (Coreg)Indications :Coronary artery disease involving [place] coronary artery of [place] heart without angina pectoris,HTN, goal below 140/90 [...] mouth in the morning. 0 07/29/2023 Active Terazosin HCl 2 MG Oral CapsuleIndications :HTN, goal below 140/80,Dizziness TAKE 2 CAPSULES BY MOUTH AT ONCE DAILY AT BEDTIME. 180 Capsule 3 07/30/2023 Active documented as of this encounter (statuses as of 08/05/2023) Active Problems Problem Noted Date Diagnosed Date [...] cancer 11/06/2019 Coronary artery disease invo lving [place] coronary artery of [place] heart without angina pectoris 07/04/2019 Senile osteoporosis 05/15/2019 Major depression single episode, in partial yimi ssion 03/23/2019 Nontoxic uninodular goiter 11/17/2018 Gastroesophageal reflux disease without esophagi tis 11/01/2018 Rheumatoid arthritis 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 03/24/2018 HTN, goal below 140/90 03/24/2018 Old MD (myocardial infarction) 03/24/2018 Type 2 diabetes mellitus [...] as of this encounter (statuses as of 08/05/2023) Resolved Problems Problem Noted Date Diagnosed Date [...] negative rheumatoid factor 07/04/2019 09/27/19 21 Old MD (myocardial infarction) 07/04/2019 09/26/2021 Severe obesity with body mas s index (BMI) of 36.0 to 36.9 with serious comorbidity 11/17/2018 Atherosclerosis of [place] co ronary artery of [place] heart without angina pectoris 11/17/201806/2021 Arteriosclerotic dementia wi th depressive features 11/17/2018 12/16/2018 Compression fracture of lumbar vertebra 11/10/2018 11/07/2021 Iron deficiency anemia 05/26/201812/16 Colorectal polyps 04/22/2018 09/12/2018 Rheumatoid arthritis 12/28/2017 023 Overview: More specified Dx listed on PL Acute MD 11/19/2017 11/19/2017 Inflammatory polyarthropathy 11/19/2017 12/16/2018 Loosening [...] as of this encounter (statuses as of 08/05/2023) Immunizations Name Administration Dates Next Due COVID-19 [...] Description 08/25/2023 1:50 PM EST Anticoagulation Pharmacy, [place] [address] [place] [facility] [place] [address] [facility] [address] [place] [facility] [place] [address] 10/05/2023 9:00 AM EDT Office Visit Cardiology, [facility] [address] [facility] [place] [address] Corrine Quinn PA-C [address] [place] [address] 10/26/2023 6:20 PM EDT Office Visit Family Practice, [place] [address] [place] [facility] [place] [address] Derrek Sparks MD [address] [place] [facility] [place] [facility] [place] [address] 12/08/2023 10:40 AM EDT Office Visit Rheumatology [place] [address] [facility] [address] Arnav Damon MD [facility] [place] [address] 05/11/2024 10:15 AM EST Office Visit Ophthalmology, [facility] [address] [facility] [place] [address] Doyle Heredia, DO [address] [place] [address] Pending Results Name Type Priority Associated Diagnoses Date /Time BASIC METABOLIC PANEL Lab Routine HTN, goal below 140/90 Localized edema PVD (peripheral vascular disease) (HCC) Chronic diastolic congestive heart failure (HCC) 08/05/2023 10:11 AM EST Health Maintenance Due Date Last Done Comments [...] D LEVEL ONCE IN A LIFETIME-USE SMARTSET# [id number] Completed 06/22/2023, 06/01/2023, 01/07/2023, Additional history exists GARDASIL-HPV IMMUNIZATION SERIES Aged Out No longer eligible based on patient's age to complete this topic MENINGOCOCCAL (MENACTRA/MENVEO) Aged Out No longer eligible based on patient's age to complete this topic documented as of this encounter Medical Devices Implanted Type Area Forest Fire Equipment Operator Device Identifier Shelf Expiration Date Model / Serial / Lot Clip Quick 2.8mm 230cm - [id number] Implanted:Qty: 4 on 11/14/2020 by Martina Cancino MD at ENDOSCOPY [facility] [employer] [facility] 06/27/2023 HX-202UR.A / / Lens 19.5 [id number] - [id number] - [id number] Implanted:Qty: 1 on 03/26/2021 by Doyle Heredia DO at OR [facility] Right: Eye BRII : SURGICAL 10/29/2025 [id number] / [id number] / Lens 19.5 [id number] - [id number] - [id number] Implanted:Qty: 1 on 03/11/2022 by Doyle Heredia DO at [facility] Left: Eye BRII : SURGICAL 10/29/2025 [id number] / [id number] / documented as of this encounter Visit Diagnoses Diagnosis HTN, goal below 140/90 Unspecified essential hypertension Localized edema Edema PVD (peripheral vascular disease) (HCC) Peripheral vascular disease, unspecified Chronic diastolic congestive heart failure (HCC) Chronic diastolic heart failure documented in this encounter Advance Directives Latest Code Status on File Code Status Date Activated Date Inactivated Comments Full Code 03/11/2022 7:56 AM 03/11/2022 2:41 PM Question Answer Comments Discussion of Advance Directives occurred with: Not Discussed due to patient's condition Care Teams Cartridge Loader Relationship Specialty Start Date End Date Derrek Sparks MD [address] [place] [facility] [place] [address] PCP - General Family Medicine 08/04/22 documented as of this encounter
--- OUTSIDE RECORDS SUMMARY | 2024-01-06 14:27 | External Medical Summary | Summary of Care ---
Author Name Unknown Organization [facility] Address [address] [place] [address] Phone [phone] Care Team Providers Care Pharmacy Resident Name Role Phone Derrek Sparks MD Primary Care Provider +1- [phone] Reason for Visit * Reason Comments eRx-Medication Refill Encounter Details Date Type Department Care Team (Late st Contact Info) Description 08/09/2023 Refill Cardiology, [facility] [address] [place] [address] Jhoana Jimenez PA-C [address] [place] [address] HTN, goal below 140/90 Allergies Active Allergy Reactions Criticality Noted Date Comments Tello Inhibitors 05/08/2021 Hyperkalemia resulting in 2 hospitalizations Metformin Diarrhea 11/05/2022 Nadolol Itching 03/17/1999 Corgard itchy Nitroglycerin Other (Please comment) 02/09/2011 Headache that is only relieved with Morphine. Nsaids Nausea/vomiting 03/17/1999 relafen documented as of this encounter (statuses as of 08/10/2023) Medications Medication Sig Dispensed Refills Start Date [...] 1 tablet in am 0 07/22/2020 Active OneTouch Verio w/Device KitIndications:DM type 2 with diabetic peripheral neuropathy (HCC) Use to check blood sugars daily as directed E11.9 1 Kit 0 10/10/2020 Active Fan[employer]apTouch Verio In Vitro Strip (Glucose Blood)Indications :DM [...] Oral Tablet (Coreg)Indication s:Coronary artery disease involving [place] coronary artery of [place] heart without angina pectoris,HTN, goal below 140/90 [...] 07/21/2023 Active Spironolactone 25 MG Oral Tablet (Aldactone)Indica tions:HTN, goal below 130/80 Take 1 Tablet by mouth in the morning. 0 07/29/2023 Active Terazosin HCl 2 MG Oral CapsuleIndication s:HTN, goal below 140/80,Dizziness TAKE 2 CAPSULES BY MOUTH AT ONCE DAILY AT BEDTIME. 180 Capsule 3 07/30/2023 Active hydrALAZINE HCl 100 MG Oral TabletIndications :HTN, goal below 140/90 TAKE 1 TABLET BY MOUTH IN THE MORNING AND 1 TABLET AT NOON AND 1 TABLET BEFORE BEDTIME 270 Tablet 3 08/10/2023 Active hydrALAZINE HCl 50 MG Oral Tablet (Apresoline)Indic ations:HTN, goal below 140/90 Take 1 Tablet by mouth in the morning and 1 Tablet at noon and 1 Tablet before bedtime. 270 Tablet 3 11/05/2022 4 Discontinue d(Refill) documented as of this encounter (statuses as of 08/10/2023) Active Problems Problem Noted Date Diagnosed Date [...] cancer 11/06/2019 Coronary artery disease invo lving [place] coronary artery of [place] heart without angina pectoris 07/04/2019 Senile osteoporosis [...] as of this encounter (statuses as of 08/10/2023) Resolved Problems Problem Noted Date Diagnosed Date [...] 36.9 with serious comorbidity 11/17/2018 Atherosclerosis of [place] co ronary artery of [place] heart without angina pectoris 11/17/201806/2021 Arteriosclerotic dementia [...] as of this encounter (statuses as of 08/10/2023) Immunizations Name Administration Dates Next Due COVID-19 [...] Telephone Encounter - Jhoana Jimenez PA-C - 08/10/2023 10:06 AM EST Signed Prescriptions: Disp Refills hydrALAZINE HCl 100 MG Oral Tablet 270 Ta*3 Sig: TAKE 1 TABLET BY MOUTH IN THE MORNING AND 1 TABLET AT NOON AND 1 TABLET BEFORE BEDTIME Authorizing Provider: JHOANA JIMENEZ * Telephone Encounter - Rachel Jimenes COT - 08/10/2023 9:04 AM ESTPending Prescriptions: Disp Refills hydrALAZINE HCl 100 MG Oral Tablet 270 Ta*3 Sig: TAKE 1 TABLET BY MOUTH IN THE MORNING AND 1 TABLET AT NOON AND 1 TABLET BEFORE BEDTIME * Telephone Encounter - Rachel Jimenes COT - 08/10/2023 9:02 AM EST Spoke with patient. She states she has been taking 100 mg, 3 times per day. * Telephone Encounter - Jhoana Jimenez PA-C - 08/10/2023 7:15 AM EST Pending Prescriptions: Disp Refills hydrALAZINE HCl 100 MG Oral Tablet 270 Ta*0 Sig: TAKE 1 TABLET BY MOUTH IN THE MORNING AND 1 TABLET AT NOON AND 1 TABLET BEFORE BEDTIME * Telephone Encounter - Jhoana Jimenez PA-C - 08/10/2023 7:13 AM EST There are 2 doses of hydralazine listed on patient's medication list 100 mg - 1 tab 3 times per day AND 50 mg - 1 tab 3 times per day. It is not clear as to what dose patient is currently taking? Please call the patient and have her look at her bottles. If she is taking 50 mg tabs, does she remember when this was changed? * Telephone Encounter - Rachel Jimenes COT - 08/09/2023 1:15 PM ESTPending Prescriptions: Disp Refills hydrALAZINE HCl 100 MG Oral Tablet 270 Ta*0 Sig: TAKE 1 TABLET BY MOUTH IN THE MORNING AND 1 TABLET AT NOON AND 1 TABLET BEFORE BEDTIME * Telephone Encounter - Rachel Jimenes, COT - 08/09/2023 1:15 PM EST Did you pend patient's preferred pharmacy and medication before forwarding?yes Pharmacy: [id number] [place] Pending Prescriptions: Disp Refills hydrALAZINE HCl 100 MG Oral Tablet [Pharm*270 Ta*0 Sig: TAKE 1 TABLET BY MOUTH IN THE MORNING AND 1 TABLET AT NOON AND 1 TABLET BEFORE BEDTIME Last Visit: 07/02/2023 (in office), Visit date not found (telemedicine) Next Visit: 10/05/2023 If no future appointments scheduled, and last appointment is greater than a year ago, please schedule patient for a follow-up appointment Last date the medication was ordered: 11-05-2022 Is this request for a controlled substance?No [...] Description 08/25/2023 1:50 PM EST Anticoagulation Pharmacy, [place] [address] [place] [facility] [place] [address] [facility] [address] [place] [facility] [place] [address] 10/05/2023 9:00 AM EDT Office Visit Cardiology, [facility] [address] [facility] [place] [address] Jhoana Jimenez, PAAmita [address] [facility] [place] [address] 10/26/2023 6:20 PM EDT Office Visit Family Practice, [place] [address] [place] [facility] [place] [address] Derrek Sparks MD [address] [place] [facility] [place] [address] 12/08/2023 10:40 AM EDT Office Visit Rheumatology [place] [address] [facility] [place] [address] Arnav Damon MD [address] [facility] [place] [address] 05/11/2024 10:15 AM EST Office Visit Ophthalmology, [facility] [address] [facility] [place] [address] Doyle Heredia, DO [address] [facility] [address] [place] [id number] Health Maintenance Due Date Last Done Comments [...] D LEVEL ONCE IN A LIFETIME-USE SMARTSET# [id number] Completed 06/22/2023, 06/01/2023, 01/07/2023, Additional history exists GARDASIL-HPV IMMUNIZATION SERIES Aged Out No longer eligible based on patient's age to complete this topic MENINGOCOCCAL (MENACTRA/MENVEO) Aged Out No longer eligible based on patient's age to complete this topic documented as of this encounter Medical Devices Implanted Type Area Corner Cutter Device Identifier Shelf Expiration Date Model / Serial / Lot Clip Quick 2.8mm 230cm - [id number] Implanted:Qty: 4 on 11/14/2020 by Martina Cancino MD at ENDOSCOPY [facility] [employer] [facility] 06/27/2023 HX-202UR.A / / Lens 19.5 [id number] - [id number] - [id number] Implanted:Qty: 1 on 03/26/2021 by Doyle Heredia DO at OR [facility] Right: Eye BRII : SURGICAL 10/29/2025 [id number] / [id number] / Lens 19.5 [id number] - [id number] - [id number] Implanted:Qty: 1 on 03/11/2022 by Doyle Heredia DO at OR [facility] Left: Eye BRII : SURGICAL 10/29/2025 [id number] / [id number] / documented as of this encounter Visit Diagnoses Diagnosis HTN, goal below 140/90 Unspecified essential hypertension documented in this encounter Advance Directives Latest Code Status on File Code Status Date Activated Date Inactivated Comments Full Code 03/11/2022 7:56 AM 03/11/2022 2:41 PM Question Answer Comments Discussion of Advance Directives occurred with: Not Discussed due to patient's condition Care Teams Pharmacy Resident Relationship Specialty Start Date End Date Derrek Sparks MD [address] [place], [place] [phone] PCP - General Family Medicine 08/04/22 documented as of this encounter
--- OUTSIDE RECORDS SUMMARY | 2024-01-06 14:27 | External Medical Summary | Summary of Care ---
Author Name Unknown Organization [facility] Address [address] [place] [address] Phone [phone] Care Team Providers Care Data Integration Architect Name Role Phone Derrek Sparks MD Primary Care Provider [phone]- [phone] Reason for Visit * Reason Onset Date Comments Advice 08/20/2023 Growth on gluteu s Encounter Details Date Type Department Care Team (Late st Contact Info) Description 08/20/2023 Telephone [facility] [address] [place] [address] Derrek Sparks MD [address] [place] [address] Advice (Growth on gluteus ) Allergies Active Allergy Reactions Criticality Noted Date Comments Tello Inhibitors 05/08/2021 Hyperkalemia resulting in 2 hospitalizations Metformin Diarrhea 11/05/2022 Nadolol Itching 03/17/1999 Corgard itchy Nitroglycerin Other (Please comment) 02/09/2011 Headache that is only relieved with Morphine. Nsaids Nausea/vomiting 03/17/1999 relafen documented as of this encounter (statuses as of 2023) Medications Medication Sig Dispensed Refills Start Date [...] 1 tablet in am 0 07/22/2020 Active VirnetXTouch Verio w/Device KitIndications:DM type 2 with diabetic peripheral neuropathy (HCC) Use to check blood sugars daily as directed E11.9 1 Kit 0 10/10/2020 Active VirnetXTouch Verio In Vitro Strip (Glucose Blood)Indications: DM [...] BEFORE BEDTIME 270 Tablet 3 08/10/2023 Active documented as of this encounter (statuses as of 2023) Active Problems Problem Noted Date Diagnosed Date [...] as of this encounter (statuses as of 2023) Resolved Problems Problem Noted Date Diagnosed Date [...] with negative rheumatoid factor 07/04/2019 09/27/19 Old AR (myocardial infarction) 07/04/2019 09/26/2021 Severe obesity with [...] as of this encounter (statuses as of 2023) Immunizations Name Administration Dates Next Due COVID-19 [...] Telephone Encounter - Sully Terry OSA - 2023 9:39 AM EST LMOM to schedule. 2023 * Telephone Encounter - Deneen Ramirez LPN - 08/20/2023 1:18 PM EST Needs seen. Please assist with scheduling * Telephone Encounter - Daniel Rashid OSA - 08/20/2023 9:42 AM EST Pt called to leave a message for pcp- She stated she has a growth on her gluteus area that is bruised and sore. Pt states she has a hard time sitting. No acute appts available. Please advise. documented in this encounter Plan of Treatment Upcoming Encounters Date Type Department Care Team (Late st Contact Info) Description 08/25/2023 1:50 PM EST Anticoagulation Pharmacy, [place] [address] [place] [address] [facility] [address] [place] [address] 10/05/2023 9:00 AM EDT Office Visit Cardiology, [facility] [address] [place] [address] Corrine Quinn PA-C [address] [place] [address] 10/26/2023 6:20 PM EDT [facility] [address] [place] [address] Derrek Sparks MD [address] [place] [address] 12/08/2023 10:40 AM EDT Office Visit Rheumatology [place] [id number] [facility] [place], [place] [address] Arnav Damon MD [address] [facility] [place], [place] [address] 05/11/2024 10:15 AM EST Office Visit Ophthalmology, [facility] 132 [facility] [place] [address] Doyle Heredia, DO [facility] [place] [address] Health Maintenance Due Date Last Done Comments Zoster Vaccines (2 of 3) 03/11/2016 01/15/2016 Pneumococcal Vaccine: 65+ Years (3 of 3 - PPSV23 or PCV20) 03/15/2019 03/15/2018, 01/12/2002, 06/28/2001, Additional history exists COVID-19 Vaccine ( - season) 2023 10/30/2020, 10/09/2020 *NEPHROLOGY REFERRAL [...] D LEVEL ONCE IN A LIFETIME-USE SMARTSET# 04139 Completed 06/22/2023, 06/01/2023, 01/07/2023, Additional history exists [...] this encounter Medical Devices Implanted Type Area Cardiopulmonary Technologist Chief Device Identifier Shelf Expiration Date Model / Serial / Lot Clip Quick 2.8mm 230cm - [id number] Implanted:Qty: 4 on 11/14/2020 by Martina Cancino MD at ENDOSCOPY [facility] [employer] 06/27/2023 HX-202UR.A / / Lens 19.5 [id number] - [id number] - [id number] Implanted:Qty: 1 on 03/26/2021 by Doyle Heredia DO at OR [facility] Right: Eye BRII : SURGICAL 10/29/2025 [id number] / [id number] / Lens 19.5 [id number] - [id number] - [id number] Implanted:Qty: 1 on 03/11/2022 by Doyle Heredia DO at OR [facility] Left: Eye BRII : SURGICAL 10/29/2025 [id number] / [id number] / documented as of this encounter Advance Directives Latest Code Status on File Code Status Date Activated Date Inactivated Comments Full Code 03/11/2022 7:56 AM 03/11/2022 2:41 PM Question Answer Comments Discussion of Advance Directives occurred with: Not Discussed due to patient's condition Care Teams Data Integration Architect Relationship Specialty Start Date End Date Derrek Sparks MD [address] [place] [address] PCP - General Family Medicine 08/04/22 documented as of this encounter
--- OUTSIDE RECORDS SUMMARY | 2024-01-06 14:27 | External Medical Summary | Summary of Care ---
Author Name Unknown Organization [facility] Address [address] [place] [address] Phone [phone] Care Team Providers Care Operations Research Scientist Name Role Phone Derrek Sparks MD Primary Care Provider +1- [phone] Encounter Details Date Type Department Care Team (Late st Contact Info) Description 07/30/2023 Orders Only PATIENT PORTAL DO NOT DELETE THIS DEPT USED BY [place] [id number] Allergies Active Allergy Reactions Criticality Noted Date Comments Tello Inhibitors 05/08/2021 Hyperkalemia resulting in 2 hospitalizations Metformin Diarrhea 11/05/2022 Nadolol Itching 03/17/1999 Corgard itchy Nitroglycerin Other (Please comment) 02/09/2011 Headache that is only relieved with Morphine. Nsaids Nausea/vomiting 03/17/1999 relafen documented as of this encounter (statuses as of 07/30/2023) Medications Medication Sig Dispensed Refills Start Date [...] directed E11.9 1 Kit 0 10/10/2020 Active OneTouch Verio In Vitro Strip [...] Oral Tablet (Coreg)Indications :Coronary artery disease involving [place] coronary artery of [place] heart without angina pectoris,HTN, goal below 140/90 [...] as of this encounter (statuses as of 07/30/2023) Active Problems Problem Noted Date Diagnosed Date [...] cancer 11/06/2019 Coronary artery disease invo lving [place] coronary artery of [place] heart without angina pectoris 07/04/2019 Senile osteoporosis [...] as of this encounter (statuses as of 07/30/2023) Resolved Problems Problem Noted Date Diagnosed Date [...] 22 Old [place] (myocardial infarction) 07/04/2019 09/26/2021 Severe obesity with body mas s index (BMI) of 36.0 to 36.9 with serious comorbidity 11/17/2018 Atherosclerosis of [place] co ronary artery of [place] heart without angina pectoris 11/17/201806/2021 Arteriosclerotic dementia [...] as of this encounter (statuses as of 07/30/2023) Immunizations Name Administration Dates Next Due COVID-19 [...] Description 08/25/2023 1:50 PM EST [facility], [place] [address] [facility] [address] [facility] [address] [place] [facility] [place] [address] 10/05/2023 9:00 AM EDT Office Visit Cardiology, [facility] 132 [facility] [place] [address] Corrine Quinn PA-C 132 [facility] [place] [address] 10/26/2023 6:20 PM EDT Office Visit Family Practice, [place] [address] [place] [facility] [place] [address] Derrek Sparks MD [address] [place] [facility] [place] [address] 12/08/2023 10:40 AM EDT Office Visit Rheumatology [address] [place] [address] Arnav Damon MD [facility] [place] [address] 05/11/2024 10:15 AM EST Office Visit Ophthalmology, [facility] 132 [facility] [place] [address] Doyle Heredia, DO 21 [facility] [place] [address] Health Maintenance Due Date Last Done Comments [...] D LEVEL ONCE IN A LIFETIME-USE SMARTSET# [id number] Completed 06/22/2023, 06/01/2023, 01/07/2023, Additional history exists GARDASIL-HPV IMMUNIZATION SERIES Aged Out No longer eligible based on patient's age to complete this topic MENINGOCOCCAL (MENACTRA/MENVEO) Aged Out No longer eligible based on patient's age to complete this topic documented as of this encounter Medical Devices Implanted Type Area Ultrasound Technologist Sonographer Device Identifier Shelf Expiration Date Model / Serial / Lot Clip Quick 2.8mm 230cm - [id number] Implanted:Qty: 4 on 11/14/2020 by Martina Cancino MD at ENDOSCOPY [facility] [employer] [facility] 06/27/2023 HX-202UR.A / / Lens 19.5 [id number] - [id number] - [id number] Implanted:Qty: 1 on 03/26/2021 by Doyle Heredia DO at OR [facility] Right: Eye BRII : SURGICAL 10/29/2025 [id number] / [id number] / Lens 19.5 [id number] - [id number] - [id number] Implanted:Qty: 1 on 03/11/2022 by Doyle Heredia DO at OR [facility] Left: Eye BRII : SURGICAL 10/29/2025 [id number] / [id number] / documented as of this encounter Advance Directives Latest Code Status on File Code Status Date Activated Date Inactivated Comments Full Code 03/11/2022 7:56 AM 03/11/2022 2:41 PM Question Answer Comments Discussion of Advance Directives occurred with: Not Discussed due to patient's condition Care Teams Operations Research Scientist Relationship Specialty Start Date End Date Derrek Sparks MD [address] [place] [address] PCP - General Family Medicine 08/04/22 documented as of this encounter
--- OUTSIDE RECORDS SUMMARY | 2024-01-06 14:27 | External Medical Summary | Summary of Care ---
Author Name Unknown Organization [facility] Address [address] [place] [address] Phone [phone] Care Team Providers Care Strategies Analyst Name Role Phone Derrek Sparks MD Primary Care Provider +1- [phone] Reason for Visit * Reason Comments eRx-Medication Refill Encounter Details Date Type Department Care Team (Late st Contact Info) Description 07/30/2023 Refill Cardiology, [facility] [address] [place] [address] Jhoana Jimenez PA-C [address] [place] [address] HTN, goal below 140/80; Dizziness Allergies Active Allergy Reactions Criticality Noted Date [...] am 0 1 Active OneTouch Verio w/Device KitIndications:DM type 2 [...] Tablet by mouth daily. 0 3 Active cloNIDine HCl 0.1 MG Oral Tablet (Catapres)Indicat ions:HTN, goal below 140/80 TAKE 1 TABLET BY MOUTH IN THE MORNING AND 1 TABLET BEFORE BEDTIME. 180 Tablet 3 3 Active hydrALAZINE HCl 50 MG Oral Tablet (Apresoline)Indic ations:HTN, goal below 140/90 Take 1 Tablet by mouth in the morning and 1 Tablet at noon and 1 Tablet before bedtime. 270 Tablet 3 3 Active Dicyclomine HCl 10 MG Oral Capsule (Bentyl)Indicatio ns:Abdominal cramps Take 1 capsule by mouth twice per day as needed for abd pain. 60 Capsule 0 05/17/202 3 Active Sertraline HCl 25 MG Oral Tablet (Zoloft)Indicatio ns:in am Take 1 tablet by mouth daily. 90 Tablet 3 3 Active Atorvastatin Calcium 80 MG Oral Tablet (Lipitor) Take 1 Tablet by mouth in the morning. 100 Tablet 3 3 Active Linzess 145 MCG Oral Capsule (linaCLOtide)Briseida cations:Constipat ion, unspecified constipation type,Chronic idiopathic constipation Take 1 Capsule by mouth daily before breakfast. 90 Capsule 3 3 Active amLODIPine Besylate 5 MG Oral Tablet (Norvasc)Indicati ons:Resistant hypertension,HTN, goal below 140/90,Longstandi ng persistent atrial fibrillation (HCC),Atheroscler osis of aorta (HCC) Take 1 Tablet by mouth in the morning and 1 Tablet before bedtime. 180 Tablet 1 3 08/05/19 24 Active Carvedilol 25 MG Oral Tablet (Coreg)Indication s:Coronary artery disease involving [place] coronary artery of [place] heart without angina pectoris,HTN, goal below 140/90 [...] [facility] 135 Tablet 1 4 Active Spironolactone 25 MG Oral Tablet (Aldactone)Indica tions:HTN, goal below 130/80 Take 1 Tablet by mouth in the morning. 0 4 Active Terazosin HCl 2 MG Oral CapsuleIndication s:HTN, goal below 140/80,Dizziness TAKE 2 CAPSULES BY MOUTH AT ONCE DAILY AT BEDTIME. 180 Capsule 3 4 Active Terazosin HCl 2 MG Oral CapsuleIndication s:HTN, goal below 140/80,Dizziness TAKE TWO CAPSULES BY MOUTH ONCE DAILY AT BEDTIME 180 Capsule 3 3 07/30/19 24 Discontinued documented as of this encounter [...] Coronary artery disease invo lving [place] coronary artery of [place] heart without angina pectoris 07/04/2019 Senile osteoporosis 05/15/2019 Major depression single episode, in partial yimi ssion 03/23/2019 Nontoxic uninodular goiter 11/17/2018 Gastroesophageal reflux disease without esophagi tis 11/01/2018 Rheumatoid arthritis 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 03/24/2018 HTN, goal below 140/90 03/24/2018 Old [place] (myocardial infarction) 03/24/2018 Type 2 diabetes mellitus [...] negative rheumatoid factor 07/04/2019 09/27/19 22 Old [place] (myocardial infarction) 07/04/2019 09/26/2021 Severe obesity with body mas s index (BMI) of 36.0 to 36.9 with serious comorbidity 11/17/2018 Atherosclerosis of [place] co ronary artery of [place] heart without angina pectoris 11/17/201806/2021 Arteriosclerotic dementia wi th depressive features 11/17/2018 12/16/2018 Compression fracture of lumbar vertebra 11/10/2018 11/07/2021 Iron deficiency anemia 05/26/201812/16 Colorectal polyps 04/22/2018 09/12/2018 Rheumatoid arthritis 12/28/2017 023 Overview: More specified Dx listed on PL Acute GA 11/19/2017 11/19/2017 Inflammatory polyarthropathy 11/19/2017 12/16/2018 Loosening [...] Telephone Encounter - Jhoana Jimenez PA-C - 07/30/2023 10:38 AM EST Signed Prescriptions: Disp Refills Terazosin HCl 2 MG Oral Capsule 180 Ca*3 Sig: TAKE 2 CAPSULES BY MOUTH AT ONCE DAILY AT BEDTIME. Authorizing Provider: JHOANA JIMENEZ * Telephone Encounter - Rachel Jimenes COT - 07/30/2023 9:49 AM ESTPending Prescriptions: Disp Refills Terazosin HCl 2 MG Oral Capsule 180 Ca*3 Sig: TAKE 2 CAPSULES BY MOUTH AT ONCE DAILY AT BEDTIME. * Telephone Encounter - Rachel Jimenes, COT - 07/30/2023 9:49 AM EST Did you pend patient's preferred pharmacy and medication before forwarding?yes Pharmacy: [id number] Pending Prescriptions: Disp Refills Terazosin HCl 2 MG Oral Capsule [Pharmacy*180 Ca*3 Sig: TAKE 2 CAPSULES BY MOUTH AT ONCE DAILY AT BEDTIME. Last Visit: 07/02/2023 (in office), Visit date not found (telemedicine) Next Visit: 10/05/2023 If no future appointments scheduled, and last appointment is greater than a year ago, please schedule patient for a follow-up appointment Last date the medication was ordered: 07-15-2022 Is this request for a controlled substance?No Urine Drug Screen:No results found. However, due to the size of the patient record, not all encounters were searched. Please check Results Review for a complete set of results. Patient Phone Numbers Labs: Lab Results Component Value Date/Time CREAT 0.8 07/28/2023 02:31 PM CREAT 0.72 01/12/2023 12:00 AM CREAT 0.7 07/19/2020 10:10 AM CREAT 0.7 09/22/1996 06:30 PM POTASSIUM 4.1 07/28/2023 02:31 PM POTASSIUM 3.6 01/12/2023 12:00 AM POTASSIUM 4.6 [...] Description 08/25/2023 1:50 PM EST Anticoagulation Pharmacy, [place] [address] [place] [address] [facility] [address] [place] [address] 10/05/2023 9:00 AM EDT Office Visit Cardiology, [facility] [address] Jhoana Jimenez PA-C 132 [facility] [place] [address] 10/26/2023 6:20 PM EDT Office Visit Family Practice, [place] [address] [place] [address] Derrek Sparks MD [address] [place] [address] 12/08/2023 10:40 AM EDT Office Visit Rheumatology [place] [address] [facility] [place] [address] Arnav Damon MD [address] [facility] [place] [address] 05/11/2024 10:15 AM EST Office Visit Ophthalmology, [facility] 132 [facility] [place] [address] Doyle Heredia DO [address] [facility] [address] [place] [address] Health Maintenance Due Date Last Done Comments [...] D LEVEL ONCE IN A LIFETIME-USE SMARTSET# 36628 Completed 06/22/2023, 06/01/2023, 01/07/2023, Additional history exists GARDASIL-HPV IMMUNIZATION SERIES Aged Out No longer eligible based on patient's age to complete this topic MENINGOCOCCAL (MENACTRA/MENVEO) Aged Out No longer eligible based on patient's age to complete this topic documented as of this encounter Medical Devices Implanted Type Area Dry Box Operator Device Identifier Shelf Expiration Date Model / Serial / Lot Clip Quick 2.8mm 230cm - [id number] Implanted:Qty: 4 on 11/14/2020 by Martina aCncino MD at ENDOSCOPY [facility] [employer] [facility] 06/27/2023 HX-202UR.A / / Lens 19.5 [id number] - [id number] - [id number] Implanted:Qty: 1 on 03/26/2021 by Doyle Heredia DO at OR [facility] Right: Eye BRII : SURGICAL 10/29/2025 [id number] / [id number] / Lens 19.5 [id number] - [id number] - [id number] Implanted:Qty: 1 on 03/11/2022 by Doyle Heredia DO at OR [facility] Left: Eye BRII : SURGICAL 10/29/2025 [id number] / [id number] / documented as of this encounter Visit Diagnoses Diagnosis HTN, goal below 140/80 Unspecified essential hypertension Dizziness Dizziness and giddiness documented in this encounter Advance Directives Latest Code Status on File Code Status Date Activated Date Inactivated Comments Full Code 03/11/2022 7:56 AM 03/11/2022 2:41 PM Question Answer Comments Discussion of Advance Directives occurred with: Not Discussed due to patient's condition Care Teams Strategies Analyst Relationship Specialty Start Date End Date Derrek Sparks MD [address] [place] [address] PCP - General Family Medicine 08/04/22 documented as of this encounter
--- OUTSIDE RECORDS SUMMARY | 2024-01-06 14:27 | External Medical Summary ---
Author Name Unknown Address Unknown Organization : Laboratory Report Ordering Provider Test Date Status ILIA CHAVEZ 08/25/2023 13:54:16 Final Therapeutic ranges for non-o perative patients:
Prophylaxsis/treatment of DVT: (Range:2.0-3.0)
Treatment of pulmonary embolism:(Range:2.0-3.0)
Prevention of systemic embolism from:
-tissue heart valves
-acute myocardial infarction
-valvular heart disease
-atrial fibrillation
(Range: 2.0-3.0)
Mechanical prosthetic valves: (Range: 2.5-3.5) Observation Date Value Abnormality Reference (Units ) Status INR in Capillary blood by Coagulation assay 08/25/2023 13:54:16 2.0 (INR) Final Performing Location
--- OUTSIDE RECORDS SUMMARY | 2024-01-06 14:27 | External Medical Summary | Summary of Care ---
Author Name Unknown Organization [facility] Address [address] [place] [address] Phone [phone] Care Team Providers Care Supervisor Commercial Fish Hatchery Name Role Phone Derrek Sparks MD Primary Care Provider +1- [phone] Reason for Visit * Reason Onset Date Comments Advice 08/20/2023 Growth on gluteu s Encounter Details Date Type Department Care Team (Late st Contact Info) Description 08/20/2023 Telephone [facility] [address] [place] [address] Derrek Sparks MD [address] [place] [address] Advice (Growth on gluteus ) [...] directed E11.9 1 Kit 0 10/10/2020 Active Physician Practice [employer] SolutionsTouch Verio In Vitro Strip (Glucose Blood)Indications :DM [...] Oral Tablet (Coreg)Indication s:Coronary artery disease involving [place] coronary artery of [place] heart without angina pectoris,HTN, goal below 140/90 [...] by mouth in the morning. 0 07/29/2023 Discontinue d(Refill) documented as of this encounter [...] cancer 11/06/2019 Coronary artery disease invo lving [place] coronary artery of [place] heart without angina pectoris 07/04/2019 Senile osteoporosis [...] negative rheumatoid factor 07/04/2019 09/27/[address] (myocardial infarction) 07/04/2019 09/26/2021 Severe obesity with body mas s index (BMI) of 36.0 to 36.9 with serious comorbidity 11/17/2018 Atherosclerosis of [place] co ronary artery of [place] heart without angina pectoris 11/17/201806/2021 Arteriosclerotic dementia [...] Telephone Encounter - Sully Terry OSA - 08/25/2023 12:22 PM EST Scheduled. 08/25/2023 * Telephone Encounter - Sully Terry OSA [...] Info) Description 08/25/2023 1:50 PM EST Anticoagulation [facility] [place] [address] [place] [address] [place] [address] [facility] [address] [facility] [place] [address] 08/26/2023 7:40 AM EST Office Visit [facility], [place] [address] [address] [facility] [id number] Chelly Kessler MD [address] [facility] [place] [address] 10/05/2023 9:00 AM EDT Office Visit Cardiology, [facility] 132 [facility] [place] [address] Corrine Quinn, PA-Judith 132 [facility] [place] [address] 10/26/2023 6:20 PM EDT Office Visit [facility], [place] [address] [facility] [place] [address] Derrek Sparks MD [address] [place] [facility] [place] [address] 12/08/2023 10:40 AM EDT Office Visit Rheumatology [address], [place] [address] Arnav Damon MD [address] [place] [address], [place] [address] 05/11/2024 10:15 AM EST Office Visit Ophthalmology, [facility] 132 [facility] [place] [address] Doyle Heredia, DO [address] [place] [address] Health Maintenance Due Date Last Done Comments [...] D LEVEL ONCE IN A LIFETIME-USE SMARTSET# [id number] Completed 06/22/2023, 06/01/2023, 01/07/2023, Additional history exists [...] this encounter Medical Devices Implanted Type Area Policy Checker Device Identifier Shelf Expiration Date Model / Serial / Lot Clip Quick 2.8mm 230cm - [id number] Implanted:Qty: 4 on 11/14/2020 by Martina Cancino MD at ENDOSCOPY [facility] [employer] 06/27/2023 HX-202UR.A / / Lens 19.5 [id number] - [id number] - [id number] Implanted:Qty: 1 on 03/26/2021 by Doyle Heredia DO at OR [facility] Right: Eye BRII : SURGICAL 10/29/2025 [id number] / [id number] / Lens 19.5 [id number] - [id number] - [id number] Implanted:Qty: 1 on 03/11/2022 by Doyle Heredia DO at OR [facility] Left: Eye BRII : SURGICAL 10/29/2025 [id number] / [id number] / documented as of this encounter Advance Directives Latest Code Status on File Code Status Date Activated Date Inactivated Comments Full Code 03/11/2022 7:56 AM 03/11/2022 2:41 PM Question Answer Comments Discussion of Advance Directives occurred with: Not Discussed due to patient's condition Care Teams Supervisor [employer] Hatcher[employer] Relationship Specialty Start Date End Date Derrek Sparks MD [address] [place] [address] PCP - General Family Medicine 08/04/22 documented as of this encounter
--- OUTSIDE RECORDS SUMMARY | 2024-01-06 14:27 | External Medical Summary | Summary of Care ---
Author Name Unknown Organization [facility] Address [address] [place] [address] Phone [phone] Care Team Providers Care Ophthalmic Medical Technician Name Role Phone Derrek Sparks MD Primary Care Provider +1- [phone] Reason for Visit * Reason Onset Date Comments Advice 07/28/2023 Encounter Details Date Type Department Care Team (Late st Contact Info) Description 07/28/2023 Telephone Cardiology, [facility] [address] [place] [address] Corrine Quinn PA-C [address] [place] [address] Advice Allergies Active Allergy Reactions Criticality Noted Date [...] 1 tablet in am 0 07/22/2020 Active [employer]Wizard[employer] Verio w/Device KitIndications:DM type 2 with diabetic peripheral neuropathy (HCC) Use to check blood sugars daily as directed E11.9 1 Kit 0 10/10/2020 Active [employer]Wizard[employer] Verio In Vitro Strip (Glucose Blood)Indications :DM [...] 07/07/2022 Active Terazosin HCl 2 MG Oral CapsuleIndication [...] 05/07/2023 Active Carvedilol 25 MG Oral Tablet (Coreg)Indication s:Coronary artery disease involving [place] coronary artery of [place] heart without angina pectoris,HTN, goal below 140/90 [...] mouth in the morning. 0 07/29/2023 Active Spironolactone 25 MG Oral Tablet (Aldactone)Indica tions:HTN, goal below 130/80 Take 0.5 Tablets by mouth in the morning. 15 Tablet 5 06/11/2023 4 Discontinue d(Refill) documented as of this [...] cancer 11/06/2019 Coronary artery disease invo lving [place] coronary artery of [place] heart without angina pectoris 07/04/2019 Senile osteoporosis [...] 22 Old [place] (myocardial infarction) 07/04/2019 09/26/2021 Severe obesity with body mas s index (BMI) of 36.0 to 36.9 with serious comorbidity 11/17/2018 Atherosclerosis of [place] co ronary artery of [place] heart without angina pectoris 11/17/201806/2021 Arteriosclerotic dementia [...] encounter Miscellaneous Notes * Telephone Encounter - Rashaad Rodriguez RN - 07/29/2023 10:30 AM EST Called and spoke to the patient and reviewed the message wit her from Corrine Quinn in regards to her medication and BP. She stated she understood. Lab orders placed and med list updated. * Telephone Encounter - Corrine Quinn PA-C - 07/29/2023 8:22 AM EST Increase spironolactone to 25 mg - 1 full tablet daily Hopefully this will aid her swelling and BP Repeat BMP in 1 week to recheck kidney function and potassium. Continue to monitor BP at home and report readings in 1 week as well. * Telephone Encounter - Rashaad Rodriguez RN - 07/28/2023 12:40 PM EST Patient phoned the clinic and stated she has been monitoring her BP at home. She has been taking it2 hours after she takes am meds. BP on 07/23/2023 is 178/102 07/24/2023 is 157/51 today 163/80. She also stated her left foot is swelling and by bedtime is is bad. She is asking for further advice. documented in this encounter Plan of Treatment Upcoming Encounters Date Type Department Care Team (Late st Contact Info) Description 08/25/2023 1:50 PM EST Anticoagulation Pharmacy, [place] [address] [place] [address] [facility] [address] [place] [address] 10/05/2023 9:00 AM EDT Office Visit Cardiology, [facility] [address] [facility] [place] [address] Corrine Quinn PA-C [address] [facility] [place] [address] 10/26/2023 6:20 PM EDT Office Visit Family Practice, [place] [address] [place] [address] Derrek Sparks MD [address] [place] [address] 12/08/2023 10:40 AM EDT Office Visit Rheumatology [address] [place] [address] Arnav Damon MD [address] [place], [place] [address] [address] 05/11/2024 10:15 AM EST Office Visit Ophthalmology, [facility] [address] [facility] [place] [address] Doyle Heredia DO [address] [place] [address] Scheduled Orders Name Type Priority Associated Diagnoses Orde r Schedule BASIC METABOLIC PANEL Lab Routine HTN, goal below 140/90 Localized edema PVD (peripheral vascular disease) (HCC) Chronic diastolic congestive heart failure (HCC) Expected: 08/05/2023 (Approximate), Expires: 07/29/2024 Health Maintenance Due Date Last Done Comments [...] D LEVEL ONCE IN A LIFETIME-USE SMARTSET# 01343 Completed 06/22/2023, 06/01/2023, 01/07/2023, Additional history exists GARDASIL-HPV IMMUNIZATION SERIES Aged Out No longer eligible based on patient's age to complete this topic MENINGOCOCCAL (MENACTRA/MENVEO) Aged Out No longer eligible based on patient's age to complete this topic documented as of this encounter Medical Devices Implanted Type Area Investigative Reporter Device Identifier Shelf Expiration Date Model / Serial / Lot Clip Quick 2.8mm 230cm - [id number] Implanted:Qty: 4 on 11/14/2020 by Martina Cancino MD at ENDOSCOPY [facility] [email or web address] [facility] 06/27/2023 [id number]-202UR.A / / Lens 19.5 [id number] - [id number] - [id number] Implanted:Qty: 1 on 03/26/2021 by Doyle Heredia DO at OR [facility] Right: Eye BRII : SURGICAL 10/29/2025 [id number] / [id number] / Lens 19.5 [id number] - [id number] - [id number] Implanted:Qty: 1 on 03/11/2022 by Doyle Heredia DO at OR [facility] Left: Eye BRII : SURGICAL 10/29/2025 [id number] / [id number] / documented as of this encounter Visit Diagnoses Diagnosis HTN, goal below 140/90- Primary Unspecified essential hypertension Localized edema Edema PVD (peripheral vascular disease) (HCC) Peripheral vascular disease, unspecified Chronic diastolic congestive heart failure (HCC) Chronic diastolic heart failure HTN, goal below 130/80 Unspecified essential hypertension documented in this encounter Advance Directives Latest Code Status on File Code Status Date Activated Date Inactivated Comments Full Code 03/11/2022 7:56 AM 03/11/2022 2:41 PM Question Answer Comments Discussion of Advance Directives occurred with: Not Discussed due to patient's condition Care Teams Ophthalmic Medical Technician Relationship Specialty Start Date End Date Oesterling, Derrek R, MD [address] [facility] [place] [address] PCP - General Family Medicine 08/04/22 documented as of this encounter
--- OUTSIDE RECORDS SUMMARY | 2024-01-06 14:28 | External Medical Summary ---
Author Name Unknown Address Unknown Organization K01:[facility] [place] - [address] [place] [address] Laboratory Report Ordering Provider Test Date Status TONY ELY 07/28/2023 14:31:45 Final Observation Date Value Abnormality Reference (Units ) Status BUN 07/28/2023 14:31:45 14 6-20 (mg/dL) Final Creatinine 07/28/2023 14:31:45 0.8 0.5-1.0 (mg/dL) Final Glomerular filtration rate/1.73 sq M.predicted [Volume Rate/Area] in Serum, Plasma or Blood by Creatinine-based formula (CKD-EPI) 07/28/2023 14:31:45 73 >=60 (mL/min) Final eGFR is calculated based on the CKD-EPI 2020 equation SODIUM 07/28/2023 14:31:45 140 135-146 (m mol/L) Final Potassium 07/28/2023 14:31:45 4.1 3.5-5.1 (m mol/L) Final Cl 07/28/2023 14:31:45 101 98-107 (mm ol/L) Final CO2 07/28/2023 14:31:45 27 22-32 (mmo l/L) Final Anion gap 07/28/2023 14:31:45 12 7-15 (mmol /L) Final Glucose 07/28/2023 14:31:45 200 Above high normal 70 -120 (mg/dL) Final Calcium 07/28/2023 14:31:45 9.9 8.4-10.2 ( mg/dL) Final Performing Location [facility] [place] - [address] [place] [address]
--- OUTSIDE RECORDS SUMMARY | 2024-01-06 14:28 | External Medical Summary | Summary of Care ---
Author Name Unknown Organization [facility] Address [address] [place] [address] Phone [phone] Care Team Providers Care Circular Stuffer Name Role Phone Derrek Sparks MD Primary Care Provider +1- [phone] Reason for Visit * Reason Comments Dosage Adjustment In Person (Anticoag Cl inic) Encounter Details Date Type Department Care Team (Latest Contact Info) Description 07/28/2023 2:00 PM EST Anticoagulation Pharmacy, [place] [address] [place] [address] [facility] [address] [place] [address] Longstanding persistent atrial fibrillation (HCC)*; Anticoagulation management encounter; [facility] current use of anticoagulant therapy Allergies Active Allergy Reactions Criticality Noted Date Comments Tello Inhibitors 05/08/2021 Hyperkalemia resulting in 2 hospitalizations Metformin Diarrhea 11/05/2022 Nadolol Itching 03/17/1999 Corgard itchy Nitroglycerin Other (Please comment) 02/09/2011 Headache that is only relieved with Morphine. Nsaids Nausea/vomiting 03/17/1999 relafen documented as of this encounter (statuses as of 07/28/2023) Medications Medication Sig Dispensed Refills Start Date [...] 1 tablet in am 0 07/22/2020 Active [employer] Verio w/Device KitIndications:DM type 2 with diabetic peripheral neuropathy (HCC) Use to check blood sugars daily as directed E11.9 1 Kit 0 10/10/2020 Active [employer] Verio In Vitro Strip (Glucose Blood)Indications: DM [...] (Coreg)Indications :Coronary artery disease involving [place] coronary artery of [place] heart without angina pectoris,HTN, goal below 140/90 Take 1.5 Tablets by mouth 2 times a day with morning and evening meals. 10 Tablet 3 05/29/2023 Active Levothyroxine Sodium 25 MCG Oral Tablet (Levoxyl) TAKE 1 TABLET BY MOUTH EVERY MORNING. AT LEAST 30 MINUTES PRIOR TO BREAKFAST OR OTHER MEDICATIONS 90 Tablet 3 06/07/2023 Active Spironolactone 25 MG Oral Tablet (Aldactone)Indicat ions:HTN, goal below 130/80 Take 0.5 Tablets by mouth in the morning. 15 Tablet 5 06/11/2023 Active Pantoprazole Sodium 40 MG Oral Tablet [...] [facility] 135 Tablet 1 07/21/2023 Active documented as of this encounter (statuses as of 07/28/2023) Active Problems Problem Noted Date Diagnosed Date [...] Coronary artery disease invo lving [place] coronary artery of [place] heart without angina pectoris 07/04/2019 Senile osteoporosis [...] as of this encounter (statuses as of 07/28/2023) Resolved Problems Problem Noted Date Diagnosed Date [...] 22 Old [place] (myocardial infarction) 07/04/2019 09/26/2021 Severe obesity with body mas s index (BMI) of 36.0 to 36.9 with serious comorbidity 11/17/2018 Atherosclerosis of [place] co ronary artery of [place] heart without angina pectoris 11/17/201806/2021 Arteriosclerotic dementia [...] as of this encounter (statuses as of 07/28/2023) Immunizations Name Administration Dates Next Due COVID-19 [...] as of this encounter Progress Notes * Jim Gonzalez RPh - 07/28/2023 2:13 PM EST Images from the original note were not included. Medication Therapy Disease Management - Anticoagulation Patient: Elmira Tavares | : 1945 Subjective Patient-Reported Symptoms: Patient Findings Positives: Missed doses (Believes to have missed 1/2 a dose last week but isn't sure when.) Negatives: Signs/symptoms of thrombosis, Signs/symptoms of bleeding, Change in health, Change in alcohol use, Change in activity, Upcoming invasive procedure, Extra doses, Change in medications, Change in diet/appetite, Bruising Objective Current Warfarin Dose As of 07/28/2023 Warfarin maintenance plan: 6 mg (4 mg x 1.5) every Mon, Fri; 4 mg (4 mg x 1) all other days INR Result As of 07/28/2023 INR goal: 1.8-2.2 INR used for dosin.7 (07/28/2023) Assessment & Plan Warfarin Plan As of 07/28/2023 Full warfarin instructions: 6 mg every Mon, Fri; 4 mg all other days No change documented: Jim Gonzalez RPh Next INR check: 08/25/2023 Repeat PT/INR in 4 week(s) Weekly dose: not changed Additional Dosing Information: Description Can speak with daughterYa (lives with patient)- who manages her medicine Jim Gonzalez RPh Clinical Pharmacist 07/28/2023, 2:14 PM documented in this encounter Plan of Treatment Upcoming Encounters Date Type Department Care Team (Late st Contact Info) Description 08/25/2023 1:50 PM EST [facility], [place] [address] [facility] [address] [place] [address] [address] 10/05/2023 9:00 AM EDT Office Visit Cardiology, [facility] [address] [place] [address] Corrine Quinn PA-C [address] [facility] [place] [address] 10/26/2023 6:20 PM EDT Office Visit Family Practice, [place] [address] [address] Derrek Sparks [facility] [address] [facility] [address] 12/08/2023 10:40 AM EDT Office [address] [address] Arnav Damon MD [address] [place] [address], [place] [address] 05/11/2024 10:15 AM EST Office Visit Ophthalmology, [facility] [address] [facility] [place] [address] Doyle Heredia, DO [address] [place] [address] Health Maintenance Due Date Last Done Comments [...] 06/01/2023, 07/29, 04/21/2021, Additional history exists GFR 06/22/2024 06/22/2023, 1210/2022, 01/12/2023, Additional history exists COLONOSCOPY-EVERY 3 YRS AGES 18-100 08/18/2025 08/18/2022, 08/18/2022, 11/14/2020, Additional history exists DTaP,Tdap,and Td Vaccines (4 - Td or Tdap) 03/15/2028 03/15/2018, 03/15/2018, 01/25/2017, Additional history exists COLONOSCOPY-ANNUAL AGES 18-100 Discontinued 08/18/2022, 08/18/2022, 11/14/2020, Additional history exists Influenza Vaccine (FLU shot) Completed 04/13/2023, 03/13/2021, 03/13/2021, Additional history exists VITAMIN D LEVEL ONCE IN A LIFETIME-USE SMARTSET# [id number] Completed 06/22/2023, 06/01/2023, 01/07/2023, Additional history exists GARDASIL-HPV IMMUNIZATION SERIES Aged Out No longer eligible based on patient's age to complete this topic MENINGOCOCCAL (MENACTRA/MENVEO) Aged Out No longer eligible based on patient's age to complete this topic documented as of this encounter Medical Devices Implanted Type Area Slide Developer Device Identifier Shelf Expiration Date Model / Serial / Lot Clip Quick 2.8mm 230cm - [id number] Implanted:Qty: 4 on 11/14/2020 by Martina Cancino MD at ENDOSCOPY [facility] [employer] 06/27/2023 HX-202UR.A / / Lens 19.5 [id number] - [id number] - [id number] Implanted:Qty: 1 on 03/26/2021 by Doyle Heredia DO at OR [facility] Right: Eye BRII : SURGICAL 10/29/2025 [id number] / [id number] / Lens 19.5 [id number] - [id number] - [id number] Implanted:Qty: 1 on 03/11/2022 by Doyle Heredia DO at OR [facility] Left: Eye BRII : SURGICAL 10/29/2025 [id number] / [id number] / documented as of this encounter Procedures Procedure Name Priority Date/Time Associated Diagnosis Comments INR FINGERSTICK, POINT OF CARE STAT 07/28/2023 2:14 PM EST Longstanding persistent atrial fibrillation (HCC) Anticoagulation management encounter [facility] current use of anticoagulant therapy documented in this encounter Results * INR FINGERSTICK, POINT OF CARE (07/28/2023 2:14 PM EST) Fingerstick INR 1.7 INR 2:16 PM EST [facility] 56-01 Blood 07/28/2023 2:14 PM EST 07/28/2023 2:16 PM EST [facility] 56-01 - 07/28/2023 2:16 PM EST Therapeutic ranges for non-operative patients: Prophylaxsis/treatment of DVT: (Range:2.0-3.0) Treatment of pulmonary embolism:(Range:2.0-3.0) Prevention of systemic embolism from: -tissue heart valves -acute myocardial infarction -valvular heart disease -atrial fibrillation (Range: 2.0-3.0) Mechanical prosthetic valves: (Range: 2.5-3.5) Alanna Osborn [facility] POINT OF CARE TEST DOCKED DEVICE [facility]OLIC[facility] [address] [place] [address] documented in this encounter Visit Diagnoses Diagnosis Longstanding persistent atrial fibrillation (HCC)- Primary Anticoagulation management encounter Encounter for therapeutic drug monitoring [facility] current use of anticoagulant therapy documented in this encounter Advance Directives Latest Code Status on File Code Status Date Activated Date Inactivated Comments Full Code 03/11/2022 7:56 AM 03/11/2022 2:41 PM Question Answer Comments Discussion of Advance Directives occurred with: Not Discussed due to patient's condition Care Teams Circular Stuffer Relationship Specialty Start Date End Date Derrek Sparks MD [address] [place] [address] PCP - General Family Medicine 08/04/22 documented as of this encounter"
--- OUTSIDE RECORDS SUMMARY | 2024-01-06 14:28 | External Medical Summary | Summary of Care ---
Author Name Unknown Organization [facility] Address [address] [place] [address] Phone [phone] Care Team Providers Care Transmission Worker Name Role Phone Fabio Clarke MD Primary Care Provider +1- [phone] Reason for Visit * Reason Comments eRx-Medication Refill Encounter Details Date Type Department Care Team (Late st Contact Info) Description 07/20/2023 Refill [facility] [address] [place] [address] Fabio Clarke MD [address] [place] [address] Allergies Active Allergy Reactions Criticality Noted Date Comments Tello Inhibitors 05/08/2021 Hyperkalemia resulting in 2 hospitalizations Metformin Diarrhea 11/05/2022 Nadolol Itching 03/17/1999 Corgard itchy Nitroglycerin Other (Please comment) 02/09/2011 Headache that is only relieved with Morphine. Nsaids Nausea/vomiting 03/17/1999 relafen documented as of this encounter (statuses as of 07/21/2023) Medications Medication Sig Dispensed Refills Start Date [...] bilateral feet. 150 g 2 3 Active Terazosin HCl 2 MG Oral CapsuleIndication s:HTN, goal below 140/80,Dizziness TAKE TWO CAPSULES BY MOUTH ONCE DAILY AT BEDTIME 180 Capsule 3 3 Active Valsartan 160 MG Oral Tablet [...] for abd pain. 60 Capsule 0 3 Active Sertraline HCl 25 MG Oral [...] Oral Tablet (Coreg)Indication s:Coronary artery disease involving [place] coronary artery of [place] heart without angina pectoris,HTN, goal below 140/90 Take 1.5 Tablets by mouth 2 times a day with morning and evening meals. 10 Tablet 3 3 Active Levothyroxine Sodium 25 MCG Oral Tablet (Levoxyl) TAKE 1 TABLET BY MOUTH EVERY MORNING. AT LEAST 30 MINUTES PRIOR TO BREAKFAST OR OTHER MEDICATIONS 90 Tablet 3 3 Active Spironolactone 25 MG Oral Tablet (Aldactone)Indica tions:HTN, goal below 130/80 Take 0.5 Tablets by mouth in the morning. 15 Tablet 5 3 Active Pantoprazole Sodium 40 MG Oral [...] MG Oral Tablet (Jantoven) TAKE 1 TO ONE AND ONE-HALF TABLETS (4MG TO 6MG) BY MOUTH DAILY OR DIRECTED BY [facility]ADIN CLINIC 135 Tablet 1 3 07/21/19 24 Discontinued documented as of this encounter (statuses as of 07/21/2023) Active Problems Problem Noted Date Diagnosed Date [...] cancer 11/06/2019 Coronary artery disease invo lving [place] coronary artery of [place] heart without angina pectoris 07/04/2019 Senile osteoporosis [...] as of this encounter (statuses as of 07/21/2023) Resolved Problems Problem Noted Date Diagnosed Date [...] 22 Old [place] (myocardial infarction) 07/04/2019 09/26/2021 Severe obesity with body mas s index (BMI) of 36.0 to 36.9 with serious comorbidity 11/17/2018 Atherosclerosis of [place] co ronary artery of [place] heart without angina pectoris 11/17/201806/2021 Arteriosclerotic dementia [...] as of this encounter (statuses as of 07/21/2023) Immunizations Name Administration Dates Next Due COVID-19 [...] encounter Miscellaneous Notes * Telephone Encounter - Lazaro James [facility] - 07/21/2023 10:39 AM ESTSigned Prescriptions: Disp Refills Warfarin Sodium 4 MG Oral Tablet (Jantoven)135 Ta*1 Sig: TAKE 1 TO 1& 1/2 TABLETS BY MOUTH EVERY DAY OR DIRECTED BY COUMADIN CLINICAuthorizing Provider: FABIO CLARKE User: LAZARO RUANO documented in this encounter Plan of Treatment Upcoming Encounters Date Type Department Care Team (Late st Contact Info) Description 07/28/2023 2:00 PM EST Anticoagulation Pharmacy, [place] [address] [place] [address] [facility] [address] [place] [address] 10/05/2023 9:00 AM EDT Office Visit Cardiology, [address] [place] [address] Corrine Quinn PA-C [address] [place] [address] 10/26/2023 6:20 PM EDT Office Visit [facility] [address] [place] [facility] [id number] Fabio Clarke MD [address] [place] [address] 12/08/2023 10:40 AM EDT Office Visit Rheumatology [address] [place] [address] Arnav Damon MD [facility] [place] [address] 05/11/2024 10:15 AM EST Office Visit Ophthalmology, [facility] [address] [place] [address] Doyle Heredia DO 21 [facility] [place] [address] Health Maintenance Due Date Last Done Comments [...] Additional history exists DXA Scan 05/03/2024 05/03/2023, 07/2020, 01/10/2018 Albumin/Creatinine Ratio 06/01/2024 023, 05/07/2022, 12/06/2020, Additional history exists TSH 06/01/2024 06/01/2023, 07/29, 04/21/2021, Additional history exists GFR 06/22/2024 06/22/2023, 10/2022, 01/12/2023, Additional history exists COLONOSCOPY-EVERY 3 YRS AGES 18-100 08/18/2025 08/18/2022, 08/18/2022, 11/14/2020, Additional history exists DTaP,Tdap,and Td Vaccines (4 - Td or Tdap) 03/15/2028 03/15/2018, 03/15/2018, 01/25/2017, Additional history exists COLONOSCOPY-ANNUAL AGES 18-100 Discontinued 08/18/2022, 08/18/2022, 11/14/2020, Additional history exists Influenza Vaccine (FLU shot) Completed 04/13/2023, 03/13/2021, 03/13/2021, Additional history exists VITAMIN D LEVEL ONCE IN A LIFETIME-USE SMARTSET# [id number] Completed 06/22/2023, 06/01/2023, 01/07/2023, Additional history exists GARDASIL-HPV IMMUNIZATION SERIES Aged Out No longer eligible based on patient's age to complete this topic MENINGOCOCCAL (MENACTRA/MENVEO) Aged Out No longer eligible based on patient's age to complete this topic documented as of this encounter Medical Devices Implanted Type Area Hack Driver Device Identifier Shelf Expiration Date Model / Serial / Lot Clip Quick 2.8mm 230cm - [id number] Implanted:Qty: 4 on 11/14/2020 by Martina Cancino MD at ENDOSCOPY [facility] [employer] 06/27/2023 HX-202UR.A / / Lens 19.5 [id number] - [id number] - [id number] Implanted:Qty: 1 on 03/26/2021 by Doyle Heredia DO at OR [facility] Right: Eye BRII : SURGICAL 10/29/2025 [id number] / [id number] / Lens 19.5 [id number] - [id number] - [id number] Implanted:Qty: 1 on 03/11/2022 by Doyle Heredia DO at OR [facility] Left: Eye BRII : SURGICAL 10/29/2025 [id number] / [id number] / documented as of this encounter Advance Directives Latest Code Status on File Code Status Date Activated Date Inactivated Comments Full Code 03/11/2022 7:56 AM 03/11/2022 2:41 PM Question Answer Comments Discussion of Advance Directives occurred with: Not Discussed due to patient's condition Care Teams Transmission Worker Relationship Specialty Start Date End Date Fabio Clarke MD [address] [place] [address] PCP - General Family Medicine 08/04/22 documented as of this encounter
--- OUTSIDE RECORDS SUMMARY | 2024-01-06 14:28 | External Medical Summary ---
Author Name Unknown Address Unknown Organization : Laboratory Report Ordering Provider Test Date Status ILIA CHAVEZ 07/28/2023 14:14:04 Final Therapeutic ranges for non-o perative patients:
Prophylaxsis/treatment of DVT: (Range:2.0-3.0)
Treatment of pulmonary embolism:(Range:2.0-3.0)
Prevention of systemic embolism from:
-tissue heart valves
-acute myocardial infarction
-valvular heart disease
-atrial fibrillation
(Range: 2.0-3.0)
Mechanical prosthetic valves: (Range: 2.5-3.5) Observation Date Value Abnormality Reference (Units ) Status INR in Capillary blood by Coagulation assay 07/28/2023 14:14:04 1.7 (INR) Final Performing Location
--- OUTSIDE RECORDS SUMMARY | 2024-01-06 14:28 | External Medical Summary | Summary of Care ---
Author Name Unknown Organization [facility] Address [address] [place] [address] Phone [phone] Care Team Providers Care Anodizer Name Role Phone Derrek Sparks MD Primary Care Provider [phone] Reason for Visit * Reason Comments Outpatient Testing Encounter Details Date Type Department Care Team (Late st Contact Info) Description 07/28/2023 2:20 PM EST Laboratory Laboratory, [place] [address] [place] [address] [place] [address], [place] [id number] HTN, goal below 140/90; Localized edema Allergies Active Allergy Reactions Criticality Noted Date [...] 1 tablet in am 0 07/22/2020 Active Red AmbientalTouch Verio w/Device KitIndications:DM type 2 with diabetic peripheral neuropathy (HCC) Use to check blood sugars daily as directed E11.9 1 Kit 0 10/10/2020 Active Red AmbientalTouch Verio In Vitro Strip (Glucose Blood)Indications: DM [...] Tablet (Coreg)Indications :Coronary artery disease involving [place] coronary artery of [place] heart without angina pectoris,HTN, goal below 140/90 [...] 11/06/2019 Coronary artery disease invo lving [place] coronary artery of [place] heart without angina pectoris 07/04/2019 Senile osteoporosis 05/15/2019 Major depression single episode, in partial yimi ssion 03/23/2019 Nontoxic uninodular goiter 11/17/2018 Gastroesophageal reflux disease without esophagi tis 11/01/2018 Rheumatoid arthritis 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 03/24/2018 HTN, goal below 140/90 03/24/2018 Old CO (myocardial infarction) 03/24/2018 Type [...] 22 Old CO (myocardial infarction) 07/04/2019 09/26/2021 Severe obesity with body mas s index (BMI) of 36.0 to 36.9 with serious comorbidity 11/17/2018 Atherosclerosis of [place] co ronary artery of [place] heart without angina pectoris 11/17/201806/2021 Arteriosclerotic dementia [...] Description 08/25/2023 1:50 PM EST Anticoagulation Pharmacy, [place] [address] [place] [facility] [place] [address] [facility] [address] [place] [facility] [place] [address] 10/05/2023 9:00 AM EDT Office Visit Cardiology, [facility] [address] [facility] [address] Corrine Quinn, ANIA [address] [place] [address] 10/26/2023 6:20 PM EDT Office Visit Family Practice, [place] [address] [facility] [place] [id number] Derrek Sparks MD [address] [place] [facility] [place] [address] 12/08/2023 10:40 AM EDT Office Visit Rheumatology [place] [id number] [address] [place] [address] Arnav Damon MD [address] [facility] [place] [address] 05/11/2024 10:15 AM EST Office Visit Ophthalmology, [facility] [address] [place] [address] Doyle Heredia, DO [address] [facility] [place] [address] Pending Results Name Type Priority Associated Diagnoses Date /Time BASIC METABOLIC PANEL Lab Routine HTN, goal below 140/90 Localized edema 07/28/2023 2:31 PM EST Health Maintenance Due Date Last Done [...] D LEVEL ONCE IN A LIFETIME-USE SMARTSET# [id number] Completed 06/22/2023, 06/01/2023, 01/07/2023, Additional history exists GARDASIL-HPV IMMUNIZATION SERIES Aged Out No longer eligible based on patient's age to complete this topic MENINGOCOCCAL (MENACTRA/MENVEO) Aged Out No longer eligible based on patient's age to complete this topic documented as of this encounter Medical Devices Implanted Type Area Guest Services Director Device Identifier Shelf Expiration Date Model / Serial / Lot Clip Quick 2.8mm 230cm - [id number] Implanted:Qty: 4 on 11/14/2020 by Martina Cancino MD at ENDOSCOPY [facility] [employer] 06/27/2023 [id number] / / Lens 19.5 [id number] - [id number] - [id number] Implanted:Qty: 1 on 03/26/2021 by Doyle Heredia DO at OR [facility] Right: Eye BRII : SURGICAL 10/29/2025 [id number] / [id number] / Lens 19.5 [id number] - [id number] - [id number] Implanted:Qty: 1 on 03/11/2022 by Doyle Heredia DO at OR [facility] Left: Eye BRII : SURGICAL 10/29/2025 [id number] / [id number] / documented as of this encounter Visit Diagnoses Diagnosis HTN, goal below 140/90 Unspecified essential hypertension Localized edema Edema documented in this encounter Advance Directives Latest Code Status on File Code Status Date Activated Date Inactivated Comments Full Code 03/11/2022 7:56 AM 03/11/2022 2:41 PM Question Answer Comments Discussion of Advance Directives occurred with: Not Discussed due to patient's condition Care Teams Anodizer Relationship Specialty Start Date End Date Derrek Sparks MD [address] [place] [address] PCP - General Family Medicine 08/04/22 documented as of this encounter
[2024-01-06] MEDS: TERAZOSIN HCL 1 MG CAP PO SCH (20:50)
[2024-01-07] MEDS: ACETAMINOPHEN 325 MG TAB PO PRN (05:51)
[2024-01-07 06:27] LABS: Hematocrit (blood only) 32.3 % (37.0-47.0); Hemoglobin 10.9 g/dl (12.0-16.0); Mean Corpuscular Hemoglobin 34.8 pg (25.0-34.0); Mean Corpuscular Hgb Conc 33.7 g/dL (32.0-36.0); Mean Corpuscular Volume 103.2 fL (80.0-100.0); Mean Platelet Volume 8.7 fL (9.4-12.4); Platelet Count 160 K/uL (130-400); RDW Coefficient of Variation 13.4 % (11.5-14.5); RDW Standard Deviation 49.1 fL (36.4-46.3); Red Blood Count 3.13 M/uL (4.20-5.40); White Blood Count 6.75 K/ul (4.8-10.8)
[2024-01-07 06:53] LABS: Albumin Globulin Ratio 1.5 (0.9-2); BUN Creatinine Ratio 13.3 (10-20); Bilirubin,Total 3.3 mg/dl (0.2-1.0); Calcium 8.9 mg/dl (8.6-10.3); Creatinine Clr Calc Pharmacy 56.3 ml/min; Est GFR (African American) 63.6 ml/min; Est GFR (Non-African American) 54.9 ml/min; Globulin 2.7 gm/dl (2.5-4.0); Magnesium 1.7 mg/dl (1.7-2.4); Phosphorus 2.8 mg/dl (2.5-4.9); Potassium 3.8 mmol/L (3.5-5.1); Total Protein 6.7 gm/dl (6.0-8.3)
[2024-01-07 07:02] LABS: INR 1.1 (0.9-1.1); Prothrombin Time 11.5 Seconds (9.0-12.0)
[2024-01-07 07:03] LABS: Estimated Average Glucose 197 mg/dl; Hemoglobin A1C 8.5 % (4.5-5.6)
[2024-01-07] MEDS ORDERED: Nursing to Pharmacy Communication SCH (10:00)
--- NOTE | 2024-01-07 10:01 | Gastroenterology Progress Note ---
<Statement entered by Luis A Fletcher MD - 01/07/24 19:51> Patient seen and examined. Case discussed with PA. Patient feels improved - ate solid food without incident. Abdominal exam benign. Hemodynamically stable and Hgb seems stable. Agree with f/u OP with her private GI MDs IP GI Service will sign off. Date of Service January 07, 2024 Assessment & Plan (1) Anemia: Plan: Patient admitted with complaints of abdominal pain over several weeks. she also endorses constipation. she has darker stools but does use oral iron. No bowel movements since admission. This does not seem to be an active GI bleed as if she was bleeding, I suspect we would be seeing it. I suspect that her nausea, vomiting, and abdominal pain are secondary to constipation issues. - Continue miralax 17gm daily. can titrate up to TID as needed. - continue with protonix 40mg IV bid. - follow hgb/hct and transfuse as needed. - patient is not interested in any endoscopic evaluation at this time. - will advance to [facility]. - she should follow up with her primary GI team on discharge. Admission and Anticipated Discharge Date Admission Date: January 05, 2024 Subjective Patient has not had any bowel movements since admission. no episodes of melena or bleeidng. no abdominal pain. no further nausea/vomiting. GI ros unremarkable. she is requesting something to eat. she does not want to pursue endoscopic work up. hgb today was 10.9 (10.8 previous) Review of Systems Review of Systems: All systems reviewed & are unremarkable except as noted in HPI & below Physical Exam Constitutional: WD/WN, vitals as above Respiratory: normal respiratory effort, lungs clear to auscultation Cardiovascular: RRR, no murmur, no edema Gastrointestinal (Abdomen): normal bowel sounds, soft, nontender, no hepatosplenomegaly Psychiatric: Orientation: alert and oriented x 3 Affect: euthymic affect Results & Data Results & Data Vital Signs (Past 12 Hours) Vital Signs Temp Pulse Pulse Resp BP Pulse Ox O2 Del Method 01/07/24 07:24 97.7 F 69 100/62 97 Room Air 01/07/24 07:15 71 01/07/24 04:30 97.5 F L 69 16 108/64 93 Room Air 01/07/24 01:30 84 07/11/24 23:56 98.1 F 74 18 121/66 97 Room Air 01/06/24 22:22 Room Air Coding Level of Care Code 26888 SUB INP/OBS CARE 07/22MIN Diagnoses Anemia D64.9
[2024-01-07] MEDS: SODIUM CHLORIDE 0.9% 500 ML IV ONE (11:15)
[2024-01-07 12:51] LABS: Adenovirus F 40/41 PCR Not Detected (NotDetected); Astrovirus PCR Not Detected (NotDetected); Campylobacter PCR Not Detected (NotDetected); Cryptosporidium PCR Not Detected (NotDetected); Cyclospora cayetanensis PCR Not Detected (NotDetected); Entamoeba histolytica PCR Not Detected (NotDetected); Enteroaggregative E.coli(EAEC) Not Detected (NotDetected); Enteropathogenic E.coli (EPEC) Not Detected (NotDetected); Enterotoxigenic E.coli (ETEC) Not Detected (NotDetected); Giardia lamblia PCR Not Detected (NotDetected); Norovirus GI/GII PCR Not Detected (NotDetected); Plesiomonas shigelloides PCR Not Detected (NotDetected); Rotavirus A PCR Not Detected (NotDetected); Salmonella PCR Not Detected (NotDetected); Sapovirus PCR Not Detected (NotDetected); Shiga-like Toxin E.coli (STEC) Not Detected (NotDetected); Shigella/Enteroinvasive E.coli Not Detected (NotDetected); Vibrio cholerae PCR Not Detected (NotDetected); Vibrio species PCR Not Detected (NotDetected); Yersinia enterocolitica PCR Not Detected (NotDetected)
[2024-01-07] MEDS: INSULIN ASPART PER UNIT CHARGE SC SCH (12:58)
--- NOTE | 2024-01-07 14:37 | Hospitalist Progress Note ---
Date of Service January 07, 2024 Assessment & Plan (1) Abdominal pain: (2) Melena: (3) Permanent atrial fibrillation: (4) HTN (hypertension): (5) Diabetes mellitus, type II: (6) CAD (coronary artery disease): (7) Chronic heart failure with preserved ejection fraction (HFpEF): (8) Rheumatoid arthritis: (9) Hypothyroidism: (10) GERD (gastroesophageal reflux disease): Plan Patient is 78-year-old female with PMHx significant for DM II, HTN, dyslipidemia, PVD, chronic HFpEF, CAD, persistent atrial fibrillation anticoagulated on Coumadin, TIA, chronic anemia (baseline Hgb: 13), RA, hypothyroidism, GERD, ISATU, history of breast cancer s/p chemo & surgery who presented to the ER with concern for abdominal pain and black stools. Melena Possible GI Bleed Abdominal Pain Anemia, macrocytic Pt presenting with abdominal pain and black stools Hgb trend of 11.0 to 11.7 to 10.8 on admission, was 13.2 a year ago MCV macrocytic FOBT pending Anemia panel- folate and b12 levels given macrocytosis, iron panel and ferritin wnl Pt takes daily warfarin, received Vit K on admission for reversal, held home warfarin CT abd pelvis noting no possible cause holding home lasix and spironolactone in setting of possible GI bleed Continue IV ppi BID Continue home iron and folate supplements at this time GI consulted, appreciate recs Patient admitted with complaints of abdominal pain over several weeks. she also endorses constipation. she has darker stools but does use oral iron. No bowel movements since admission. This does not seem to be an active GI bleed as if she was bleeding, I suspect we would be seeing it. I suspect that her nausea, vomiting, and abdominal pain are secondary to constipation issues. - Continue miralax 17gm daily. can titrate up to TID as needed. - continue with protonix 40mg IV bid. - follow hgb/hct and transfuse as needed. - patient is not interested in any endoscopic evaluation at this time. - will advance to [facility]. - she should follow up with her primary GI team on discharge. Pt's warfarin was restarted since per GI, not GI bleed. Advanced from clears to soft diet. Hypotension Pt with episode of hypotension on 01/06 Copious watery stools in setting of miralax use and clear liquid diet NSS fluid bolus x1 Holding home antihypertensives Continue with IV fluids Continue to monitor UTI UA suggestive of infection Urine Cx growing gram negative bacilli currently Blood Cx x 2 ordered given elevated lactate on admission IV rocephin Follow cultures Elevated lactate Noted on admission, downtrended after fluids Likely in setting of above (infection, bleed) Improved Hypokalemia Replete as needed Subtherapeutic INR INR currently not at goal of 2-3 received Vit K on admission for reversal, holding home warfarin at this time Continue to monitor INR daily Resume warfarin as soon as able Abdominal Aorta Stenosis, high grade CT abd/pelvis noting "severe atherosclerosis with high grade stenosis of the infrarenal abdominal aorta and proximal branch vessels." ? cause of abdominal pain Consider Vascular Surgery consult Atrophic Left Kidney Left Nephrolithiasis Stable PCP followup, consider outpt Urology followup Elevated bilirubin Appears chronic Stable Atrial Fibrillation On Coreg and warfarin Warfarin currently on hold as above Resume as able CHF Chronic diastolic heart failure (EF 64%, TTE 2022) On spironolactone and Lasix Currently on hold in setting of GI bleed Resume as soon as able DMII Hyperglycemia noted AM [id number] ISS while hospitalized Not on home meds currently Continue other home meds as ordered DVT prophylaxis: warfarin resumed, follow INR Diet: advancing diet Dispo: PT/OT ordered for further recs Admission and Anticipated Discharge Date Admission Date: January 05, 2024 Subjective pt was seen multiple times throughout the day. In the AM was having multiple loose BMs after miralax. Was also on clears. Also feeling lightheaded. Received fluid bolus. Later resting comfortably, no dizziness, BP improved. Review of Systems Review of Systems: All systems reviewed & are unremarkable except as noted in Subjective Physical Exam Physical Exam: General: Alert, oriented. No acute distress Psych: Appropriate mood and affect Neuro: weak HEENT: NC/AT Chest: noted chest wall deformity CV: RRR Resp: Breath sounds clear bilaterally, no increased effort of breathing Abdomen: Soft, nontender Extremities: No edema in lower extremities bilaterally. Results & Data Results & Data Vital Signs (Past 12 Hours) Vital Signs Temp Pulse Pulse Resp BP Pulse Ox O2 Del Method 01/07/24 13:33 112/65 01/07/24 10:55 85/56 L 01/07/24 10:54 36.4 C L 76 18 88/61 L 98 Room Air 01/07/24 08:50 Room Air 01/07/24 07:24 36.5 C 69 100/62 97 Room Air 01/07/24 07:15 71 01/07/24 04:30 36.4 C L 69 16 108/64 93 Room Air (4) HTN (hypertension) Hypertension type: unspecified Qualified Code(s): I10 - Essential (primary) hypertension
[2024-01-07] MEDS: SODIUM CHLORIDE 0.9% 1,000 ML IV SCH (17:07)
[2024-01-07] MEDS: WARFARIN SOD 6 MG TAB PO SCH (17:17)
[2024-01-08 06:34] LABS: Hemoglobin 9.7 g/dl (12.0-16.0); Mean Corpuscular Hemoglobin 34.9 pg (25.0-34.0); Mean Corpuscular Hgb Conc 33.4 g/dL (32.0-36.0); Mean Corpuscular Volume 104.3 fL (80.0-100.0); Mean Platelet Volume 8.9 fL (9.4-12.4); Platelet Count 133 K/uL (130-400); RDW Coefficient of Variation 13.2 % (11.5-14.5); RDW Standard Deviation 49.4 fL (36.4-46.3); Red Blood Count 2.78 M/uL (4.20-5.40)
[2024-01-08 06:54] LABS: INR 1.1 (0.9-1.1); Prothrombin Time 11.4 Seconds (9.0-12.0)
[2024-01-08 06:57] LABS: Albumin Globulin Ratio 1.5 (0.9-2); Albumin Level 3.5 gm/dl (3.4-5.0); BUN Creatinine Ratio 12.5 (10-20); Bilirubin,Total 1.8 mg/dl (0.2-1.0); Calcium 8.4 mg/dl (8.6-10.3); Est GFR (African American) 65.2 ml/min; Est GFR (Non-African American) 56.2 ml/min; Globulin 2.4 gm/dl (2.5-4.0); Magnesium 1.6 mg/dl (1.7-2.4); Phosphorus 2.8 mg/dl (2.5-4.9); Potassium 3.7 mmol/L (3.5-5.1); Total Protein 5.9 gm/dl (6.0-8.3)
[2024-01-08] MEDS: MAGNESIUM SULFATE / D5W 1 GM/100 ML BAG IV SCH (11:02)
--- NOTE | 2024-01-08 14:42 | Discharge Summary ---
Discharge Summary Date of Service January 08, 2024 Principal Dx & Hospital Course #1 = Principal Diagnosis (1) Abdominal pain: (2) Melena: (3) Permanent atrial fibrillation: (4) HTN (hypertension): (5) Diabetes mellitus, type II: (6) CAD (coronary artery disease): (7) Chronic heart failure with preserved ejection fraction (HFpEF): (8) Rheumatoid arthritis: (9) Hypothyroidism: (10) GERD (gastroesophageal reflux disease): Plan Patient is 78-year-old female with PMHx significant for DM II, HTN, dyslipidemia, PVD, chronic HFpEF, CAD, persistent atrial fibrillation anticoagulated on Coumadin, TIA, chronic anemia (baseline Hgb: 13), RA, hypothyroidism, GERD, ISATU, history of breast cancer s/p chemo & surgery who presented to the ER with concern for abdominal pain and black stools. Melena Possible GI Bleed Abdominal Pain Anemia, macrocytic Pt presenting with abdominal pain and black stools Hgb trend of 11.0 to 11.7 to 10.8 to 9.7 on admission, was 13.2 a year ago MCV macrocytic FOBT Anemia panel- folate and b12 levels wnl, iron panel and ferritin wnl Pt takes daily warfarin, received Vit K on admission for reversal, held home warfarin CT abd pelvis noting no possible cause helding home lasix and spironolactone in setting of possible GI bleed initially Treated with IV ppi BID Continued home iron and folate supplements GI consulted, appreciate recs Patient admitted with complaints of abdominal pain over several weeks. she also endorses constipation. she has darker stools but does use oral iron. No bowel movements since admission. This does not seem to be an active GI bleed as if she was bleeding, I suspect we would be seeing it. I suspect that her nausea, vomiting, and abdominal pain are secondary to constipation issues. - Continue miralax 17gm daily. can titrate up to TID as needed. (Pt completed treatment) - continue with protonix 40mg IV bid (transitioned to po pantoprazole 40mg BID on discharge) - follow hgb/hct and transfuse as needed (no transfusions were needed). - patient is not interested in any endoscopic evaluation at this time. - will advance to clears (diet was eventually advanced to a soft DMII diet) - she should follow up with her primary GI team on discharge. Please ensure followup with GI after discharge Pt's warfarin was restarted on 01/06 since per GI, not GI bleed. Please continue to monitor H/H after discharge. Hypotension Pt with episode of hypotension on 01/06 Copious watery stools in setting of miralax use and clear liquid diet NSS fluid bolus x1 Held home antihypertensives-amlodipine, hydralazine, terazosin, spironolactone and furosemide. held on discharge as well until pcp f/u on 01/10 Please continue to monitor BP after discharge and resume home antihypertensives as able UTI UA suggestive of infection Urine Cx grew pansensitive E coli Blood Cx x 2 sets with NGTD Treated with IV rocephin for 3 days, discharged with po cefdinir 300mg BID x 7 more days Elevated lactate Noted on admission, downtrended after fluids Likely in setting of above (infection, bleed) resolved Hypokalemia Replete as needed Subtherapeutic INR INR currently not at goal of 2-3 received Vit K on admission for reversal, held home warfarin intiially Pt's warfarin was restarted on 01/06 since per GI, not GI bleed. INR 1.1 on discharge Continue home warfarin please ensure close follow up with the coumadin clinic Continue to closely monitor INR after discharge Abdominal Aorta Stenosis, high grade CT abd/pelvis noting "severe atherosclerosis with high grade stenosis of the infrarenal abdominal aorta and proximal branch vessels." Consider Vascular Surgery consult pt on baby aspirin, not currently on statin PCP followup after discharge Atrophic Left Kidney Left Nephrolithiasis Stable PCP followup, consider outpt Urology followup Elevated bilirubin Appears chronic Stable Atrial Fibrillation On Coreg and warfarin Warfarin resumed as above please ensure close follow up with the coumadin clinic Continue to closely monitor INR after discharge CHF Chronic diastolic heart failure (EF 64%, TTE 2022) On spironolactone and Lasix Currently on hold in setting of GI bleed, hypotension Resume as soon as able Close PCP followup DMII Hyperglycemia noted hgba1c of 8.5 ISS while hospitalized Not on home meds currently Needs close PCP followup for better control Continue other home meds as ordered Notes For Next Care Provider Per GI: Please ensure followup with pt's GI provider after discharge Continue to monitor H/H closely as well as blood pressure Resume home antihypertensives and diuretics as soon as able based on blood pressure at followup appt. High grade abdominal aorta stenosis noted on CT abd/pelvis- please ensure followup Hgba1c of 8.5, not currently at goal. Please ensure followup Medication Changes From Visit cefdinir 300mg BID x 7 more days Pantoprazole 40mg BID Holding home amlodipine, hydralazine, terazosin, spironolactone and furosemide until pcp followup on 01/11/24 Admission HPI Per Admitting Provider Patient is 78-year-old female with PMH DM II, HTN, dyslipidemia, PVD, chronic HFpEF, CAD, persistent atrial fibrillation anticoagulated on Coumadin, TIA, chronic anemia (baseline Hgb: 13), RA, hypothyroidism, GERD, ISATU, history of breast cancer s/p chemo & surgery, and others listed below presented to ER with c/o abdominal pain. Patient states for the past 1 to 2 months has been having intermittent abdominal pain. She reports typically occurs approximately once a week and is usually an aching type sensation across to her abdomen with associated nausea, vomiting followed by dry heaves. Also reports will have several loose stools associated with this. Patient reports symptoms usually last 24 hours and then resolve. Patient states around noon today had sudden onset of abdominal pain across abdomen however this time was more sharp with associated nausea, vomiting. She also reports has had multiple episodes of loose stool that is black in color. She felt chilled today. Has not taken her temperature. Denies any dizziness or syncope. Denies diaphoresis, hematemesis, MAXWELL, neck pain, CP, SOB, palpitations, cough, otalgia, rhinorrhea, paresthesias, extremity weakness, extremity edema, rashes, urinary symptoms. per outpatient chart review: A1c: 9.0 on 10/29/23 Hgb: 13.4 on 06/01/23 08/18/2022 colonoscopy: Poor colon prep, stool entire examined colon. Tattoo seen in transverse colon, post polypectomy scar found at tattoo site 05/16/2018: EGD: Inlet patch. 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 Small hiatal hernia. Very mild thrush 05/31/2018 video capsule study: No abnormality found Admission Exam Per Admitting Provider General: no distress currently, overweight elderly female Head: normocephalic, atraumatic Eyes: conjunctiva non-injected, anicteric ENT: normal inspection external ears, nose, mucous membranes moist Neck: supple, trachea midline Lungs: clear, no respiratory distress, no wheezing/rhonchi/rales CV: RRR, no murmur, no pretibial edema Abd: normal BS, soft, +tender to palpation across RUQ, epigastric, LUQ and RLQ currently Ext: no cyanosis, no calf tenderness Neuro: A&O x 3, no focal deficits noted, normal affect Skin: warm, dry Discharge Exam General: Alert, oriented. No acute distress Psych: Appropriate mood and affect HEENT: NC/AT, black skin lesion on right chin Chest: noted chest wall deformity CV: RRR Resp: Breath sounds clear bilaterally, no increased effort of breathing Abdomen: Soft, nontender Extremities: No edema in lower extremities bilaterally. Updated Medication List Medication Instructions Recorded Confirmed Type aspirin 81 mg tablet,delayed 81 mg PO QAM 04/02/18 01/05/24 History release (Ashly Low Dose Aspirin) ascorbic acid (vitamin C) 500 mg 500 mg PO QAM 11/20/20 01/05/24 History tablet acetaminophen 500 mg tablet 500 mg PO Q4H PRN Pain 10/02/21 01/05/24 History levothyroxine 25 mcg tablet 25 mcg PO QAM 10/02/21 01/05/24 History atorvastatin 80 mg tablet 80 mg PO DAILY 11/20/21 01/05/24 History ferrous sulfate 325 mg (65 mg 325 mg PO QAM 11/20/21 01/05/24 History iron) tablet carvedilol 25 mg tablet 37.5 mg PO AMPM 11/22/21 01/05/24 History clonidine HCl 0.1 mg tablet 0.1 mg PO AMHS 11/22/21 01/05/24 History sertraline 25 mg tablet 25 mg PO QAM 11/22/21 01/05/24 History terazosin 2 mg capsule 4 mg PO HS 11/22/21 01/05/24 History cholecalciferol (vitamin D3) 50 50 mcg PO DAILY 03/27/22 01/05/24 History mcg (2,000 unit) capsule (Vitamin D3) amlodipine 5 mg tablet 5 mg PO AMHS 01/05/24 01/05/24 History dicyclomine 10 mg capsule 10 mg PO BID PRN Abdominal Pain 01/05/24 01/05/24 History folic acid 1 mg tablet 1 mg PO DAILY 01/05/24 01/05/24 History furosemide 40 mg tablet 40 mg PO QAM 01/05/24 01/05/24 History hydralazine 100 mg tablet 100 mg PO TID 01/05/24 01/05/24 History methotrexate sodium 2.5 mg tablet 15 mg PO WK 01/05/24 01/05/24 History pregabalin 25 mg capsule 25 mg PO AMHS 01/05/24 01/05/24 History spironolactone 25 mg tablet 25 mg PO QAM 01/05/24 01/05/24 History warfarin 4 mg tablet (Jantoven) See Rx Instructions .Route .COMPLEX 01/05/24 01/05/24 History cefdinir 300 mg capsule 300 mg PO BID #14 caps 01/08/24 Rx pantoprazole 40 mg tablet,delayed 40 mg PO BID #60 tabs 01/08/24 Rx release Hospital Stay Data Consultations 01/05/24 21:04 ED Decision to Admit Stat 01/05/24 23:30 Consult Gastroenterology Routine Diagnostic Imagining Performed 01/05/24 15:00 CT abd pelvis IV con only Stat Abdomen/Pelvis CT 01/05/24 15:[address] WITH IV CONTRAST CT DOSE: 1414.79 mGy.cm HISTORY: Acute onset abdominal pain with nausea and vomiting abdominal pain; vomiting/diarrhea TECHNIQUE: Multiaxial CT images of the abdomen and pelvis were performed following the IV administration of 91 cc of Optiray, A dose lowering technique was utilized adhering to the principles of ALARA. COMPARISON STUDY: 11/20/2021 FINDINGS: Extensive coronary artery calcifications with cardiomegaly. Moderate right hemidiaphragmatic elevation. No free air. Unremarkable spleen, mildly atrophic pancreas and adrenal glands. Cholecystectomy is likely postsurgical biliary ductal dilation. Unremarkable liver. Patent portal vein. No hydronephrosis. Atrophic left kidney measures up to 6.4 cm. 5 mm nonobstructing calculus of the inferior pole left kidney. No ureteral calculi or hydronephrosis. Mild urinary bladder distention. Severe atherosclerosis of the aorta and branch vessels with resultant high-grade stenosis at the origin of the celiac trunk, superior mesenteric and renal arteries. Areas of severe stenosis noted within the abdominal aorta, notably image 143 series 3 prior. Small hiatal hernia with distal esophageal wall thickening. No bowel obstruction or bowel wall thickening. Colonic diverticulosis. Noninflamed appendix. Postoperative changes of the lumbosacral spine. Chronic T12 and L1 compression deformities with kyphoplasty. Spinal stimulator device is noted. IMPRESSION: 1. No bowel obstruction or bowel wall thickening. 2. Left nephrolithiasis. 3. Colonic diverticulosis. 4. Severe atherosclerosis with high grade stenosis of the infrarenal abdominal aorta and proximal branch vessels. 5. Atrophic left kidney. ACT 112: Negative or not required by law. The above report was generated using voice recognition software. It may contain grammatical, syntax or spelling errors. Electronically signed by: Monty Juarez M.D. 01/05/2024 6:49 PM Pending Results Patient Have Any Pending Studies at Discharge: No Discharge Instructions Given to Patient (Per Discharging Provider) [place], You were admitted and treated for a urinary tract infection. We are discharging you with 7 more days of antibiotics for that. Your blood pressure was very low while here so we held some of your medications that can affect your blood pressure. Please hold your home amlodipine, hydralazine, terazosin, spironolactone and furosemide until you see your primary care provider on 01/11/24. They will re-check your blood pressure at that time and re-start your home medications as needed. Continue with your home clonidine and carvedilol at this time. You were seen by the oil refinery process technician and they did not think you were bleeding in your GI tract. They think you are constipated and we treated you for that. They recommend that you follow up with your own oil refinery process technician after di schargabriella. We increased the dose of your pantoprazole to 40mg twice a day to help with that. Again, please keep close follow up with your primary care provider after discharge for your further evaluation. Please do not hesitate to come back to the emergency room if your symptoms worsen or return. It was a pleasure taking care of you while you were here. Total Time Total Time Spent Total Time Spent (In Minutes): 75
[2024-01-08] MEDS: WARFARIN SOD 4 MG TAB PO SCH (15:50)
== END 2024-01-08 16:07 | disposition home or self-care (01) | DRG 378 ==
LOC: ED 14:57 → EDINP 23:08 → 2N 01-06 03:36

== ENCOUNTER 2024-02-07 11:19 | Inpatient (IN) ==
--- NOTE | 2024-02-07 11:31 | Emergency Department Note ---
Impression & Plan Sepsis ADMIT ED Provider Note HPI: History obtained from patient. The patient is a 78-year-old female with history of hypertension, type 2 diabetes, coronary artery disease, paroxysmal atrial fibrillation on Coumadin, who presents the emergency department with a chief complaint of diarrhea and generalized weakness. Patient states that she has had the symptoms for over the past week. Patient states today she did not feel like she could ambulate or get out of bed because she felt so generally weak. Patient denies any vomiting, denies any abdominal pain. Patient denies any chest pain or shortness of breath. Patient does state that she has had diarrhea during this time. On arrival here to the ER, the patient is alert, she does not have any focal deficits. Heart rate is mildly elevated in the low 100s on arrival and the patient's blood pressure is low at 82/53. ROS: - Per HPI Differential Diagnosis: Sepsis, urinary tract infection, pneumonia, acute colitis, C. difficile colitis, bowel obstruction,, amongst other potential pathologies. *Outpatient medications and allergy history reviewed. PE: General: Alert, frail-appearing HEENT: Normocephalic, trachea midline Eyes: Extraocular eye movement is intact, no scleral erythema Pulmonary: Clear to auscultation bilaterally, no wheezing Cardio: Mildly tachycardic rate and irregular rhythm GI: Abdomen is soft to palpation, there is mild distention and mild tenderness to palpation in the lower abdomen, no guarding or rigidity : No suprapubic tenderness MSK: No evidence of trauma or malformation of the extremities, no edema Skin: No evidence of rash Neuro: Alert, no focal deficits, equal bilateral paper tube cutter strength, symmetrical facial movements are appreciated, patient ambulates all extremity spontaneously Psychiatric: Cooperative INDEPENDENT INTERPRETATIONS: 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 Lab work shows a significant leukocytosis of 26.69, hemoglobin is stable at 11.2, platelet count is normal, INR is supratherapeutic at 4.1. CMP shows hypokalemia 3.0, serum bicarbonate level is reduced at 16, lactic acid is critically elevated at 9.1, creatinine is also elevated at 1.74 with a BUN of 41. Initial high-sensitivity troponin level is elevated at 112 and procalcitonin is elevated at 29.6. Patient denies any chest pain, I suspect the troponin elevation is likely from demand ischemia/sepsis. Low suspicion for ACS. EKG per my interpretation does not show any evidence of acute ischemic changes. Chest x-ray per my interpretation does not show any evidence of pneumonia, CT imaging of the abdomen pelvis was obtained that shows evidence of possible emphysematous cystitis. Patient did not have any recent instrumentation or catheter placement within the urinary bladder. Stool PCR is noted to be negative. Patient was IV fluid resuscitated with greater than 30 cc/kg of IV fluid. Blood pressure did remain hypotensive but stable in the low 90s and high 80s. Patient remained alert. Heart rate did downtrend. Patient was given IV cefepime and IV clindamycin over concern for emphysematous cystitis is the source for her sepsis. I did discuss the patient's presentation with the on-call hospitalist for [facility], Dr. Barton, the patient was placed for admission in stable condition. I do not feel currently that she requires vasopressor support. Lactic acid is downtrending on recheck to 7.0. Patient remains alert and saturating well on room air with now normal heart rate. Patient and her at the bedside are in agreement for admission. Consultants/Discussions held with other healthcare providers: -Hospitalist, Dr. Barton Disposition discussion held by myself with: -Patient and at bedside * CRITICAL CARE TIME: ( 43 ) minutes -Stabilization of patient with sepsis secondary to urinary tract infection/acute cystitis with elevated lactic acid and hypotension on arrival requiring aggressive IV fluid resuscitation and initiation of broad-spectrum antibiotics, time spent at the bedside, interpretation of diagnostic studies and lab work, discussion with other physicians and arrangement of admission. Diagnosis: 1. Urinary tract infection with acute cystitis 2. Sepsis, acute 3. Lactic acidosis, acute 4. Leukocytosis, acute 5. Acute kidney injury 6. Elevated BUN 7. Hypokalemia, acute 8. Supratherapeutic INR, acute 9. Elevated procalcitonin 10. Diarrhea, acute 11. Elevated high-sensitivity troponin level, acute Disposition: Admission Rya Dyer, Emergency Medicine Past Med/Surg History Problem List Sepsis (Acute) (HFpEF) heart failure with preserved ejection fraction Troponin level elevated Lactic acidosis Emphysematous cystitis Severe sepsis Physical deconditioning Mild cognitive impairment Hypothyroidism Chronic heart failure with preserved ejection fraction (HFpEF) Permanent atrial fibrillation Melena (Acute) Acute GI bleeding (Acute) Abdominal pain (Acute) Hypertensive emergency 2017 Rheumatoid arthritis PAD (peripheral artery disease) Postoperative back pain (Acute) Compression fracture of L1 lumbar vertebra Back pain (Acute) Venous ulcer-leg syndrome, left Abnormal CT of the abdomen Postlaminectomy syndrome of lumbar region Hematoma following procedure Blood loss anemia Encounter for pre-operative examination Postoperative hematoma (Acute) Postlaminectomy syndrome of lumbar region Anemia Hgb 10-13 over past year PAF (paroxysmal atrial fibrillation) post operative, follows with [facility] cardio, on warfarin Depression CAD (coronary artery disease) 1991 - PTCA/PCI to ramus intermedius complicated by spiral dissection non-obstructive per 2017 cardiac cath Follows with [facility] cardiology Diabetes mellitus, type II no longer on medication-waiting to hear back from about a new medicine as the Jardiance was too expensive GERD (gastroesophageal reflux disease) controlled, stable per pt HTN (hypertension) (Acute) controlled, stable per pt Dyslipidemia IBS (irritable bowel syndrome) History of breast cancer Right breast- RUE limb restriction* Status post renal artery angioplasty 1994 History of bilateral knee arthroplasty Left (1995) x2 , right (2005) History of cholecystectomy 1998 History of modified radical mastectomy of right breast 2010 H/O repair of right rotator cuff 2012 Medical History Limb alert care status RUE limb restriction Aortic stenosis "Mild" per 12/2022 echo Sleep apnea no treatment History of COVID-19 x 01/2020 and 05/[address] [facility] for rehab, denies residual issues Myocardial Infarction 1994, had a balloon angioplasty, [facility] Jung MRSA infection Hx-more than 1 year ago Atrial fibrillation with RVR f/u [facility] PAD (peripheral artery disease) severe right brachiocephalic stenosis and moderate to severe abdominal aortic stenosis- under surveillance by cardiovascular-on warfarin Chronic back pain LLE radiculopathy Rheumatoid arthritis Hiatal hernia Hypothyroidism CVA (cerebral vascular accident) 2017, residual unsteady, left sided weakness Surgical History History of surgery on left wrist "put a plate in for the arthritis" History of surgery Hematoma evacuation, stimulator check (11/20/21): Grade 1 view, MAC#3, ETT 7.0 at [facility]. No issues noted per post-op anesthesia progress note. S/P insertion of spinal cord stimulator placed in 2021, [facility]>has had it checked multiple times History of fracture of nasal bone no sx. History of shoulder replacement R Status post lumbar surgery History of back surgery x3, 2019 History of cardiac cath 2017 ([facility]) > no stents History of colonoscopy Family History Daughter Family history of reaction to anesthesia SLOW TO WAKE UP Mother Family history of diabetes mellitus Other Heart disease Hypertension Social History Smoking Status: Former smoker Second Hand Exposure: No; Do You Dip or Chew Tobacco: No; Hx Alcohol Use: No Hx Substance Use: No Preferred Language: Cuban Communication Ability: Effective Visual Impairment: No Limitations Hearing Ability: Normal Sales Development Coordinator Required: No Beliefs That Will Affect Care: None marital status: Current Living Situation: Spouse current occupational status: retired Other Information That Helps Us Care for You: No Feels Safe at Home: Yes Safety Concerns: Feels Safe At This Time Assistive Devices: Denture - Upper, Denture - Lower and Walker Assistive Devices Comment: not with patient, at home Allergies Allergies Allergy/AdvReac Type Severity Reaction Status Date / Time ABRIL Inhibitors AdvReac Severe hyperkalemi Verified 01/12/24 08:07 a nadolol AdvReac Unknown GI UPSET Verified 01/12/24 08:07 nitroglycerin AdvReac Unknown HEADACHE Verified 01/12/24 08:07 NSAIDS (Non-Steroidal AdvReac Unknown GI UPSET Verified 01/12/24 08:07 Anti-Inflamma metformin AdvReac Diarrhea Verified 01/12/24 08:07 Home Meds Home Medications Medication Instructions Recorded Confirmed aspirin 81 mg tablet,delayed 81 mg PO QAM 04/02/18 02/07/24 release (Ashly Low Dose Aspirin) acetaminophen 500 mg tablet 500 mg PO Q4H PRN Pain 10/02/21 02/07/24 levothyroxine 25 mcg tablet 25 mcg PO QAM 10/02/21 02/07/24 atorvastatin 80 mg tablet 80 mg PO DAILY 11/20/21 02/07/24 ferrous sulfate 325 mg (65 mg 325 mg PO QAM 11/20/21 02/07/24 iron) tablet carvedilol 25 mg tablet 37.5 mg PO AMPM 11/22/21 02/07/24 clonidine HCl 0.1 mg tablet 0.1 mg PO AMHS 11/22/21 02/07/24 sertraline 25 mg tablet 25 mg PO QAM 11/22/21 02/07/24 terazosin 2 mg capsule 0 mg PO HS 11/22/21 02/07/24 cholecalciferol (vitamin D3) 50 50 mcg PO DAILY 03/27/22 02/07/24 mcg (2,000 unit) capsule (Vitamin D3) amlodipine 5 mg tablet 5 mg PO AMHS 01/05/24 02/07/24 dicyclomine 10 mg capsule 10 mg PO BID PRN Abdominal Pain 01/05/24 02/07/24 folic acid 1 mg tablet 1 mg PO DAILY 01/05/24 02/07/24 furosemide 40 mg tablet 40 mg PO QAM 01/05/24 02/07/24 hydralazine 100 mg tablet 0 mg PO TID 01/05/24 02/07/24 methotrexate sodium 2.5 mg tablet 15 mg PO WK 01/05/24 02/07/24 pregabalin 25 mg capsule 25 mg PO AMHS 01/05/24 02/07/24 spironolactone 25 mg tablet 25 mg PO QAM 01/05/24 02/07/24 warfarin 4 mg tablet (Jantoven) See Rx Instructions .Route .COMPLEX 01/05/24 02/07/24 ascorbate calcium (vitamin C) 500 500 mg PO DAILY 01/10/24 02/07/24 mg tablet magnesium hydroxide 400 mg/5 mL 5 ml PO DAILY PRN Constipation 01/10/24 02/07/24 oral suspension (Dulcolax (magnesium hydroxide)) Previous Rx's Medication Instructions Recorded pantoprazole 40 mg tablet,delayed 40 mg PO BID #60 tabs 01/08/24 release donepezil 5 mg tablet 5 mg PO DAILY #30 tabs 01/12/24 Results & Data (ED) Vital Signs Vital Signs - 24 hr 02/07/24 11:30 02/07/24 11:35 02/07/24 12:06 Temperature 36.8 C Temperature Source Oral Pulse Rate 101 H 97 H Pulse Rate [Apical] Pulse Rhythm Regular Pulse Strength Normal Respiratory Rate 22 Respiratory Effort / Characteristics Non-Labored Spontaneous Respiratory Depth Normal Respiratory Pattern Regular Blood Pressure 82/53 L Blood Pressure [Left Arm] Blood Pressure Mean 62 Blood Pressure Mean [Left Arm] Pulse Oximetry 97 98 Oxygen Delivery Method Room Air Room Air Sepsis Recent Fever Within 48 Hours No Sepsis New/Unexplained Change in Mental Status No Sepsis Action Taken by Nursing Physician Notified 02/07/24 12:16 02/07/24 12:55 02/07/24 13:33 Temperature 36.8 C 36.5 C Temperature Source Oral Oral Pulse Rate Pulse Rate [Apical] 84 86 85 Pulse Rhythm Pulse Strength Respiratory Rate 19 19 20 Respiratory Effort / Characteristics Non-Labored Spontaneous Non-Labored Spontaneous Non-Labored Spontaneous Respiratory Depth Normal Normal Respiratory Pattern Regular Regular Regular Blood Pressure Blood Pressure [Left Arm] 94/65 L 94/69 L 87/53 L Blood Pressure Mean Blood Pressure Mean [Left Arm] 74 77 64 Pulse Oximetry 95 100 96 Oxygen Delivery Method Room Air Room Air Room Air Sepsis Recent Fever Within 48 Hours Sepsis New/Unexplained Change in Mental Status Sepsis Action Taken by Nursing 02/07/24 13:48 02/07/24 14:04 Temperature 36 C L Temperature Source Oral Pulse Rate Pulse Rate [Apical] 82 81 Pulse Rhythm Pulse Strength Respiratory Rate 22 22 Respiratory Effort / Characteristics Non-Labored Spontaneous Respiratory Depth Respiratory Pattern Regular Blood Pressure Blood Pressure [Left Arm] 87/65 L 85/49 L Blood Pressure Mean Blood Pressure Mean [Left Arm] 72 61 Pulse Oximetry 99 99 Oxygen Delivery Method Room Air Room Air Sepsis Recent Fever Within 48 Hours Sepsis New/Unexplained Change in Mental Status Sepsis Action Taken by Nursing Laboratory Data 02/07/24 11:31 02/07/24 11:31 Lab Results 02/07/24 02/07/24 02/07/24 Range/Units 11:31 13:15 13:30 WBC 26.69 H (4.8-10.8) K/ul RBC 3.24 L (4.20-5.40) M/uL Hgb 11.2 L (12.0-16.0) g/dl Hct 33.8 L (37.0-47.0) % MCV 104.3 H (80.0-100.0) fL MCH 34.6 H (25.0-34.0) pg MCHC 33.1 (32.0-36.0) g/dL RDW Std Deviation 55.2 H (36.4-46.3) fL RDW Coeff of Farheen 14.5 (11.5-14.5) % Plt Count 131 (130-400) K/uL MPV 10.0 (9.4-12.4) fL Immature Gran % (Auto) 3.2 % Neut % (Auto) 90.8 % Lymph % (Auto) 2.6 % Carbon % (Auto) 3.3 % Eos % (Auto) 0.0 % Baso % (Auto) 0.1 % Neut # (Auto) 24.23 H (1.40-6.50) K/uL Lymph # (Auto) 0.69 L (1.20-3.40) K/uL Carbon # (Auto) 0.88 H (0.11-0.59) K/uL Eos # (Auto) 0.01 (0.00-0.50) K/uL Baso # (Auto) 0.03 (0.00-0.20) K/uL Immature Gran # (Auto) 0.85 H (0.01-0.20) K/uL Absolute Nucleated RBC 0.03 (0.00-0.12) K/uL Nucleated RBC % (auto) 0.1 % Dohle Bodies 2+ Polychromasia 1+ Tear Drop Cells 1+ Echinocytes 1+ PT 39.2 H (9.0-12.0) Seconds INR 4.1 H (0.9-1.1) Sodium 132 L (136-145) mmol/L Potassium 3.0 L (3.5-5.1) mmol/L Chloride 97 L (98-107) mmol/L Carbon Dioxide 16 L (21-32) mmol/L Anion Gap 19 H (3-11) BUN 41 H (6-23) mg/dl Creatinine 1.74 H (0.6-1.2) mg/dl Est Cr Clr Drug Dosing 28.8 ml/min Est GFR ( Amer) 31.8 ml/min Est GFR (Non-Af Amer) 27.4 ml/min BUN/Creatinine Ratio 23.6 H (10-20) Glucose 250 H (70-99(Fasting)) mg/dl Lactate 9.1 H* 7.0 H* (0.4-2.0) mmol/L Calcium 9.1 (8.6-10.3) mg/dl Magnesium 1.8 (1.7-2.4) mg/dl Total Bilirubin 5.1 H (0.2-1.0) mg/dl Direct Bilirubin 0.8 H (0-0.2) mg/dl AST 34 (13-39) U/L ALT 22 (7-52) U/L Alkaline Phosphatase 171 H (34-104) U/L Troponin I High Sens 112.3 H* (0-14) pg/ml Total Protein 6.6 (6.0-8.3) gm/dl Albumin 3.8 (3.4-5.0) gm/dl Procalcitonin 29.60 H (0-0.5) ng/ml Stl C. cayetanensis PCR Not Detected (NotDetected) Stool Rotavirus A PCR Not Detected (NotDetected) Stl Adenov F 40/41 PCR Not Detected (NotDetected) Stool Astrovirus (PCR) Not Detected (NotDetected) Stool Campylobacter PCR Not Detected (NotDetected) Stool Cryptosporidium PCR Not Detected (NotDetected) Stl E.coli Shiga Tox PCR Not Detected (NotDetected) Stl Enterotoxigenic E PCR Not Detected (NotDetected) Stool EPEC (PCR) Not Detected (NotDetected) Stool EAEC (PCR) Not Detected (NotDetected) Stl E. histolytica PCR Not Detected (NotDetected) Stool Giardia Lamblia PCR Not Detected (NotDetected) Stool Salmonella PCR Not Detected (NotDetected) Stool Sapovirus (PCR) Not Detected (NotDetected) Stl P. shigelloides PCR Not Detected (NotDetected) Stl Shigella/EIEC PCR Not Detected (NotDetected) St Y.enterocolitica PCR Not Detected (NotDetected) Stool Vibrio (PCR) Not Detected (NotDetected) Stl Vibrio cholerae PCR Not Detected (NotDetected) Stl Norovirus GI/GII PCR Not Detected (NotDetected) 02/07/24 Range/Units 14:05 WBC (4.8-10.8) K/ul RBC (4.20-5.40) M/uL Hgb (12.0-16.0) g/dl Hct (37.0-47.0) % MCV (80.0-100.0) fL MCH (25.0-34.0) pg MCHC (32.0-36.0) g/dL RDW Std Deviation (36.4-46.3) fL RDW Coeff of Farheen (11.5-14.5) % Plt Count (130-400) K/uL MPV (9.4-12.4) fL Immature Gran % (Auto) % Neut % (Auto) % Lymph % (Auto) % Carbon % (Auto) % Eos % (Auto) % Baso % (Auto) % Neut # (Auto) (1.40-6.50) K/uL Lymph # (Auto) (1.20-3.40) K/uL Carbon # (Auto) (0.11-0.59) K/uL Eos # (Auto) (0.00-0.50) K/uL Baso # (Auto) (0.00-0.20) K/uL Immature Gran # (Auto) (0.01-0.20) K/uL Absolute Nucleated RBC (0.00-0.12) K/uL Nucleated RBC % (auto) % Dohle Bodies Polychromasia Tear Drop Cells Echinocytes PT (9.0-12.0) Seconds INR (0.9-1.1) Sodium (136-145) mmol/L Potassium (3.5-5.1) mmol/L Chloride (98-107) mmol/L Carbon Dioxide (21-32) mmol/L Anion Gap (3-11) BUN (6-23) mg/dl Creatinine (0.6-1.2) mg/dl Est Cr Clr Drug Dosing ml/min Est GFR ( Amer) ml/min Est GFR (Non-Af Amer) ml/min BUN/Creatinine Ratio (10-20) Glucose (70-99(Fasting)) mg/dl Lactate (0.4-2.0) mmol/L Calcium (8.6-10.3) mg/dl Magnesium (1.7-2.4) mg/dl Total Bilirubin (0.2-1.0) mg/dl Direct Bilirubin (0-0.2) mg/dl AST (13-39) U/L ALT (7-52) U/L Alkaline Phosphatase (34-104) U/L Troponin I High Sens 63.8 H* D (0-14) pg/ml Total Protein (6.0-8.3) gm/dl Albumin (3.4-5.0) gm/dl Procalcitonin (0-0.5) ng/ml Stl C. cayetanensis PCR (NotDetected) Stool Rotavirus A PCR (NotDetected) Stl Adenov F 40/41 PCR (NotDetected) Stool Astrovirus (PCR) (NotDetected) Stool Campylobacter PCR (NotDetected) Stool Cryptosporidium PCR (NotDetected) Stl E.coli Shiga Tox PCR (NotDetected) Stl Enterotoxigenic E PCR (NotDetected) Stool EPEC (PCR) (NotDetected) Stool EAEC (PCR) (NotDetected) Stl E. histolytica PCR (NotDetected) Stool Giardia Lamblia PCR (NotDetected) Stool Salmonella PCR (NotDetected) Stool Sapovirus (PCR) (NotDetected) Stl P. shigelloides PCR (NotDetected) Stl Shigella/EIEC PCR (NotDetected) St Y.enterocolitica PCR (NotDetected) Stool Vibrio (PCR) (NotDetected) Stl Vibrio cholerae PCR (NotDetected) Stl Norovirus GI/GII PCR (NotDetected) Administered Medications Potassium Chloride/Sodium Chloride (Normal Saline W/20 Meq Kcl) 20 meq in 1,000 mls @ 100 mls/hr IV .Q10H DIAMOND; Protocol Stop: 03/08/24 16:29 Last Admin: 08/12/24 16:58 Dose: 100 mls/hr Documented By: DANN Lactobacillus Acidophilus (Advanced Probiotic 625 Mg Capsule) 1,250 mg PO DAILY DIAMOND Stop: 03/08/24 16:13 Last Admin: 02/07/24 17:04 Dose: 1,250 mg Documented By: DANN Lidocaine (Lidocaine 5% 1 Patch) 1 patch TD QAM DIAMOND Stop: 03/08/24 16:13 Last Admin: 02/07/24 17:03 Dose: 1 patch Documented By: DANN Discontinued Medications Acetaminophen (Acetaminophen 325 Mg Tab) 650 mg PO NOW STA Stop: 02/07/24 15:29 Last Admin: 02/07/24 15:35 Dose: 650 mg Documented By: SUNNY Fentanyl Citrate (Fentanyl Citrate Pf 100 Mcg/2 Ml Vial) 25 mcg IV NOW STA Stop: 02/07/24 13:39 Last Admin: 02/07/24 13:46 Dose: 25 mcg Documented By: KATHRYN Sodium Chloride (Nss) 1,000 mls @ 999 mls/hr IV .Q1H1M DIAMOND Stop: 02/07/24 12:30 Last Infusion: 02/07/24 13:38 Dose: Infused Documented By: Admin: 02/07/24 11:51 Dose: 999 mls/hr Documented By: KATHRYN Sodium Chloride (Nss) 1,000 mls @ 999 mls/hr IV .Q1H1M ONE Stop: 02/07/24 12:50 Last Infusion: 02/07/24 13:38 Dose: Infused Documented By: Admin: 02/07/24 12:15 Dose: 999 mls/hr Documented By: KATHRYN Sodium Chloride (Nss) 1,000 mls @ 600 mls/hr IV .Q1H40M ONE Stop: 02/07/24 13:29 Last Infusion: 02/07/24 14:12 Dose: Infused Documented By: Admin: 02/07/24 12:20 Dose: 600 mls/hr Documented By: KATHRYN Cefepime HCl (Maxipime) 2,000 mg in 20 mls @ 5 mls/min IV NOW STA; Protocol Stop: 02/07/24 12:07 Last Admin: 02/07/24 12:15 Dose: 5 mls/min Documented By: KATHRYN Clindamycin Phosphate (Cleocin/D5w) 600 mg in 50 mls @ 100 mls/hr IV NOW ONE Stop: 02/07/24 14:19 Last Infusion: 02/07/24 14:50 Dose: Infused Documented By: Admin: 02/07/24 14:03 Dose: 100 mls/hr Documented By: KATHRYN Sodium Chloride (Nss) 500 mls @ 999 mls/hr IV .Q31M ONE Stop: 02/07/24 16:58 Last Admin: 02/07/24 17:00 Dose: 999 mls/hr Documented By: DANN Promethazine HCl (Phenergan) 12.5 mg in 50.5 mls @ 202 mls/hr IV 1645 ONE Stop: 02/07/24 16:59 Last Admin: 02/07/24 16:58 Dose: 202 mls/hr Documented By: DANN Ondansetron HCl (Ondansetron Inj 2 Mg/Ml 2 Ml Vial) 4 mg IV NOW STA Stop: 02/07/24 13:39 Last Admin: 02/07/24 13:46 Dose: 4 mg Documented By: KATHRYN Potassium Chloride (Potassium Chloride Crtab 20 Meq Tabcr) 40 meq PO NOW STA Stop: 02/07/24 12:19 Last Admin: 02/07/24 12:54 Dose: 40 meq Documented By: KATHRYN Tramadol HCl (Tramadol Hcl 50 Mg Tablet) 50 mg PO NOW STA Stop: 02/07/24 16:11 Last Admin: 02/07/24 16:20 Dose: 50 mg Documented By: DANN Imaging Data Radiologist's Impression: Chest X-Ray 02/07/24 11:27 XR chest 1V portable CLINICAL HISTORY: Sepsis TECHNIQUE: Single frontal radiograph of the chest was obtained. Comparison: Comparison is made to chest radiograph 01/06/2023 FINDINGS: Right shoulder arthroplasty is seen. Calcified aortic knob is seen. The lungs are clear. Elevation of the right hemidiaphragm is again seen. No evidence of pleural effusion or pneumothorax. IMPRESSION: No acute chest disease. ACT 112: Negative or not required by law. Electronically signed by: Ajay Arnold M.D. 02/07/2024 12:10 PM Abdomen/Pelvis CT 02/07/24 12:[address] WITHOUT CONTRAST CT DOSE: 1986.33 mGy.cm HISTORY: Diarrhea, sepsis TECHNIQUE: Multiaxial CT images of the abdomen and pelvis were performed without contrast. A dose lowering technique was utilized adhering to the principles of ALARA. COMPARISON STUDY: Abdomen and pelvis CT 01/05/2024. FINDINGS: Mild interstitial thickening at the lung bases which is likely chronic. There is mild elevation of the right hemidiaphragm, unchanged. The heart remains mildly enlarged. Extensive posterior decompression and fusion from L2 through S1 1 with pedicle screws and rods. Bilateral sacroiliac altered again noted with chronic compression deformities and vertebroplasty at T12 and L1. There is normal compression deformity noted at T11. Spinal stimulator leads are partially visualized. No acute fractures identified. Old left lower rib fractures are noted. The unenhanced liver, spleen, adrenal glands, and pancreas are unremarkable. Prior cholecystectomy. Stable left-sided nephrolithiasis. Stable 2 cm left renal hypodense lesion which favors a cyst. The left kidney is moderately atrophic. No ureteral stones. No hydronephrosis. There is a small hiatus hernia. Extensive calcified plaque within the normal caliber abdominal aorta. No retroperitoneal or pelvic lymphadenopathy. No pelvic free fluid. Suboptimal evaluation for bowel pathology due to the lack of intravenous and oral contrast. However, there is no definite bowel wall thickening or obstruction. Normal appendix. Colonic diverticulosis. No evidence for acute diverticulitis. Fluid-filled nondistended loops of large and small bowel. This can be seen in the setting of a diarrheal illness/gastroenteritis. Scattered small foci of gas seen within the perineum near the vaginal introitus/urethra. There is also small foci of gas extending in and around the vaginal wall, bladder wall, and myometrium of the uterus. There are small foci of scattered gas within the deep pelvis which appear to be within the surrounding pelvic veins. There is small focus of gas within the left common femoral vein. These findings are indeterminate and could be due to recent trauma/iatrogenic process such as insertion of a [place] or rectal catheter. However, a gas-forming organism also remains in the differential diagnosis raise the possibility of an emphysematous cystitis. IMPRESSION: 1. Scattered small foci of gas seen within the perineum near the vaginal introitus/urethra. There is also small foci of gas extending in and around the vaginal wall, bladder wall, and myometrium of the uterus. There are small foci of scattered gas within the deep pelvis which appear to be within the surrounding pelvic veins. There is small focus of gas within the left common femoral vein. These findings are indeterminate and could be due to recent trauma/iatrogenic process such as insertion of a Granger or rectal catheter. However, a gas-forming organism also remains in the differential diagnosis raising the possibility of an emphysematous cystitis. Therefore, clinical correlation recommended. 2. Fluid-filled nondistended loops of large and small bowel. This can be seen in the setting of a diarrheal illness/gastroenteritis. 3. Left-sided nephrolithiasis. No hydronephrosis. 4. Colonic diverticulosis. No evidence for acute diverticulitis. 5. Additional findings as described above. ACT 112: Negative or not required by law. Electronically signed by: Shaun bAreu M.D. 02/07/2024 1:19 PM Discharge Plan Visit Data Chief Complaint: Weakness ED Provider: Ray Dyer Discharge Problem: Sepsis Patient Disposition: Admitted As Inpatient Discharge Instructions Interventions: ED Discharge Assessment Last Done: 02/07/24 15:40 Discharge Problem: Sepsis Qualifiers: Sepsis type: sepsis due to unspecified organism Sepsis acute organ dysfunction status: with acute organ dysfunction Severe sepsis acute organ dysfunction type: acute renal failure Acute renal failure type: unspecified Severe sepsis shock status: with septic shock Qualified Code(s): A41.9 - Sepsis, unspecified organism
[2024-02-07] MEDS: SODIUM CHLORIDE 0.9% 1,000 ML IV SCH (11:51)
[2024-02-07 11:59] LABS: Hematocrit (blood only) 33.8 % (37.0-47.0); Hemoglobin 11.2 g/dl (12.0-16.0); Mean Corpuscular Hemoglobin 34.6 pg (25.0-34.0); Mean Corpuscular Hgb Conc 33.1 g/dL (32.0-36.0); Mean Corpuscular Volume 104.3 fL (80.0-100.0); Nucleated RBC # (auto) 0.03 K/uL (0.00-0.12); Nucleated RBC % (auto) 0.1 %; Platelet Count 131 K/uL (130-400); RDW Coefficient of Variation 14.5 % (11.5-14.5); RDW Standard Deviation 55.2 fL (36.4-46.3); Red Blood Count 3.24 M/uL (4.20-5.40); White Blood Count 26.69 K/ul (4.8-10.8)
--- NOTE | 2024-02-07 12:11 | XRay Report ---
XR chest 1V portable CLINICAL HISTORY: Sepsis TECHNIQUE: Single frontal radiograph of the chest was obtained. Comparison: Comparison is made to chest radiograph 01/06/2023 FINDINGS: Right shoulder arthroplasty is seen. Calcified aortic knob is seen. The lungs are clear. Elevation of the right hemidiaphragm is again seen. No evidence of pleural effusion or pneumothorax. IMPRESSION: No acute chest disease. ACT 112: Negative or not required by law. Electronically signed by: Ajay Arnold M.D. 02/07/2024 12:10 PM
[2024-02-07 12:12] LABS: Albumin Level 3.8 gm/dl (3.4-5.0); BUN Creatinine Ratio 23.6 (10-20); Bilirubin Direct 0.8 mg/dl (0-0.2); Bilirubin,Total 5.1 mg/dl (0.2-1.0); Calcium 9.1 mg/dl (8.6-10.3); Creatinine Clr Calc Pharmacy 28.8 ml/min; Est GFR (African American) 31.8 ml/min; Est GFR (Non-African American) 27.4 ml/min; Magnesium 1.8 mg/dl (1.7-2.4); Total Protein 6.6 gm/dl (6.0-8.3)
[2024-02-07] MEDS: SODIUM CHLORIDE 0.9% 1,000 ML IV ONE ×2 (12:15→12:20)
[2024-02-07] MEDS: CEFEPIME 2,000 MG/20 ML VIAL IV STA (12:15)
[2024-02-07 12:23] LABS: Troponin I High Sensitivity 112.3 pg/ml (0-14)
[2024-02-07 12:26] LABS: Basophils # (auto) 0.03 K/uL (0.00-0.20); Basophils % (auto) 0.1 %; Echinocytes 1+; Eosinophils # (auto) 0.01 K/uL (0.00-0.50); Immature Granulocytes # (auto) 0.85 K/uL (0.01-0.20); Immature Granulocytes % (auto) 3.2 %; Lymphocytes # (auto) 0.69 K/uL (1.20-3.40); Lymphocytes % (auto) 2.6 %; Monocytes # (auto) 0.88 K/uL (0.11-0.59); Monocytes % (auto) 3.3 %; Neutrophils # (auto) 24.23 K/uL (1.40-6.50); Neutrophils % (auto) 90.8 %; Polychromasia 1+; Tear Drop Cells 1+
[2024-02-07 12:30] LABS: INR 4.1 (0.9-1.1); Prothrombin Time 39.2 Seconds (9.0-12.0)
[2024-02-07 12:40] LABS: Appearance Urine Cloudy (Clear); Bacteria Urine Automated 4+ (None Seen); Bilirubin Urine Negative (Negative); Blood Urine 2+ (Negative); Cast Urine Automated 0-2 /lpf (0-2); Color Urine Yellow; Glucose Urine UA 3+ (Negative); Ketones Urine Negative (Negative); Leukocyte Esterase Urine 1+ (Negative); Nitrite Urine Negative (Negative); Protein Urine 2+ (Negative); Specific Gravity Urine 1.027 (1.000-1.030); Urobilinogen Urine Negative (Negative); WBC Urine Automated >50 /hpf (0-5); pH Urine 5.5 (4.5-7.5)
[2024-02-07 12:45] LABS: Dohle Bodies 2+
[2024-02-07] MEDS: POTASSIUM CHLORIDE CRTAB 20 MEQ TABCR PO STA (12:54)
--- NOTE | 2024-02-07 13:20 | CT Scan Report ---
ABDOMEN AND PELVIS CT WITHOUT CONTRAST CT DOSE: 1986.33 mGy.cm HISTORY: Diarrhea, sepsis TECHNIQUE: Multiaxial CT images of the abdomen and pelvis were performed without contrast. A dose lo wering technique was utilized adhering to the principles of ALARA. COMPARISON STUDY: Abdomen and pelvis CT 01/05/2024. FINDINGS: Mild interstitial thickening at the lung bases which is likely chronic. There is mild eleva tion of the right hemidiaphragm, unchanged. The heart remains mildly enlarged. Extensive posterior de compression and fusion from L2 through S1 1 with pedicle screws and rods. Bilateral sacroiliac altere d again noted with chronic compression deformities and vertebroplasty at T12 and L1. There is normal compression deformity noted at T11. Spinal stimulator leads are partially visualized. No acute fractu res identified. Old left lower rib fractures are noted. The unenhanced liver, spleen, adrenal glands, and pancreas are unremarkable. Prior cholecystectomy. Stable left-sided nephrolithiasis. Stable 2 cm left renal hypodense lesion which favors a cyst. The left kidney is moderately atrophic. No ureteral stones. No hydronephrosis. There is a small hiatus hernia. Extensive calcified plaque within the nor mal caliber abdominal aorta. No retroperitoneal or pelvic lymphadenopathy. No pelvic free fluid. Subo ptimal evaluation for bowel pathology due to the lack of intravenous and oral contrast. However, ther e is no definite bowel wall thickening or obstruction. Normal appendix. Colonic diverticulosis. No ev idence for acute diverticulitis. Fluid-filled nondistended loops of large and small bowel. This can b e seen in the setting of a diarrheal illness/gastroenteritis. Scattered small foci of gas seen within the perineum near the vaginal introitus/urethra. There is also small foci of gas extending in and ar ound the vaginal wall, bladder wall, and myometrium of the uterus. There are small foci of scattered gas within the deep pelvis which appear to be within the surrounding pelvic veins. There is small foc us of gas within the left common femoral vein. These findings are indeterminate and could be due to r ecent trauma/iatrogenic process such as insertion of a Granger or rectal catheter. However, a gas-formi ng organism also remains in the differential diagnosis raise the possibility of an emphysematous cyst itis. IMPRESSION: 1. Scattered small foci of gas seen within the perineum near the vaginal introitus/urethra. There is also small foci of gas extending in and around the vaginal wall, bladder wall, and myometrium of the uterus. There are small foci of scattered gas within the deep pelvis which appear to be within the victor rrounding pelvic veins. There is small focus of gas within the left common femoral vein. These findin gs are indeterminate and could be due to recent trauma/iatrogenic process such as insertion of a Fole y or rectal catheter. However, a gas-forming organism also remains in the differential diagnosis rais ing the possibility of an emphysematous cystitis. Therefore, clinical correlation recommended. 2. Fluid-filled nondistended loops of large and small bowel. This can be seen in the setting of a dallin rrheal illness/gastroenteritis. 3. Left-sided nephrolithiasis. No hydronephrosis. 4. Colonic diverticulosis. No evidence for acute diverticulitis. 5. Additional findings as described above. ACT 112: Negative or not required by law. Electronically signed by: Shaun Abreu M.D. 02/07/2024 1:19 PM
--- NOTE | 2024-02-07 13:23 | Electrocardiogram Report ---
Test Reason : Blood Pressure : */* mmHG Vent. Rate : 86 BPM Atrial Rate : * BPM P-R Int : * ms QRS Dur : 96 ms QT Int : 410 ms P-R-T Axes : * 69 72 degrees QTcB Int : 490 ms Atrial fibrillation Prolonged QT Abnormal ECG When compared with ECG of 05-Jan-2024 15:53, No significant change was found Confirmed by Isiah Shepherd ([id number]) on 02/07/2024 1:23:12 PM Referred By: Confirmed By: Isiah Shepherd
[2024-02-07] MEDS: fentaNYL citrate PF 100 MCG/2 ML VIAL IV STA (13:46)
[2024-02-07] MEDS: ONDANSETRON INJ 2 MG/ML 2 ML VIAL IV STA (13:46)
[2024-02-07] MEDS: CLINDAMYCIN/D5W 600 MG/50 ML BAG IV ONE (14:03)
--- NOTE | 2024-02-07 14:32 | History & Physical Report ---
Date of Service February 07, 2024 Assessment & Plan (1) Severe sepsis: (2) Emphysematous cystitis: (3) Lactic acidosis: (4) Troponin level elevated: (5) (HFpEF) heart failure with preserved ejection fraction: (6) Permanent atrial fibrillation: (7) Diabetes mellitus, type II: Plan: 78-year-old female with history of CAD, CHF with preserved ejection fraction, atrial fibrillation on Coumadin, diabetes type 2, hypertension, severe abdominal stenosis, UTI, TIA, chronic anemia, RA on methotrexate, hypothyroidism, GERD, breast cancer, presenting with diarrhea and weakness x 1 week. Severe sepsis secondary to complicated UTI, emphysematous cystitis Rule out bacteremia Diarrhea Blood culture pending Urine culture pending Stool culture PCR pending C. difficile PCR pending Chest x-ray no pneumonia MRSA swab pending Bio fire pending Lactic acid elevated at 9, 7.0, repeat at 7 PM Has received total of 2.5 L of NSS at the ER per sepsis protocol Continue IV NSS at 100 cc/h Imipenem 250 mg every 8 hours Infectious ease consult Neurology consult Hypotension secondary to #1 Continue IV normal saline s/p Mechanical Fall secondary to Weakness Xray R rib ordered Lidoderm patch, PRN Tylenol Anion gap metabolic acidosis secondary to lactic acidosis Management per #1 Acute kidney injury on CKD stage III secondary to sepsis, likely prerenal etiology CT abdomen pelvis: No obstruction Continue IV NSS Troponin elevation likely secondary to demand ischemia, severe sepsis Denies cardiac symptoms 112, second Trope pending EKG no signs of ischemia Echocardiogram pending Indirect bilirubinemia CT abdomen/pelvis: Liver unremarkable Likely secondary to sepsis Continue liver panel daily Coronary disease Continue aspirin and Lipitor Hold off on carvedilol in light of hypotension CHF with preserved ejection fraction Currently dehydrated Hold Lasix, spironolactone Atrial fibrillation Heart rate controlled INR 4.1, hold Coumadin INR daily Hold carvedilol until blood pressure stable Hypertension Hold clonidine, terazosin, amlodipine, hydralazine in light of hypotension and sepsis Diabetes type 2 Insulin sliding scale Pharmacy glycemic consult Chronic anemia Hemoglobin stable Continue ferrous sulfate, folic acid Rheumatoid arthritis On methotrexate-hold until infection has been treated Other chronic conditions Hypothyroidism GERD History of breast cancer Severe abdominal aortic aneurysm DVT prophylaxis INR 4.0, Coumadin on hold CODE STATUS Full code Disposition Will need PT and OT evaluation History of Present Illness Chief Complaint: diarrhea and weakness x 1 week Primary Care Provider: Derrek Sparks MD 78-year-old female with history of CAD, CHF with preserved ejection fraction, atrial fibrillation on Coumadin, diabetes type 2, hypertension, severe abdominal stenosis, UTI, TIA, chronic anemia, RA on methotrexate, hypothyroidism, GERD, breast cancer, presenting with diarrhea and weakness x 1 week. Patient reports 1 week history of diarrhea- loose, water, nonbloody, associated with generalized abdominal cramping, nausea/vomitng, progressive weakness to the point that she could not get up from bed. She had a fall yesterday as she was too weak to ambulate. Patient also reports dysuria, no hematuria. At the ER, patient was received afebrile blood pressure was systolic 90s. WBC 26,000, creatinine 1.7 with bicarb of 16, lactic acid 9, troponin 112. Urinalysis showing possible UTI CT abdomen and pelvis showing possible emphysematous cystitis On exam, seen resting in bed, not in distress, weak. State she has right sided chest wall pain but no shortness of breath, cough etc Allergies Allergy/AdvReac Type Severity Reaction Status Date / Time ABRIL Inhibitors AdvReac Severe hyperkalemi Verified 01/12/24 08:07 a nadolol AdvReac Unknown GI UPSET Verified 01/12/24 08:07 nitroglycerin AdvReac Unknown HEADACHE Verified 01/12/24 08:07 NSAIDS (Non-Steroidal AdvReac Unknown GI UPSET Verified 01/12/24 08:07 Anti-Inflamma metformin AdvReac Diarrhea Verified 01/12/24 08:07 Home Medications Medication Instructions Recorded Confirmed Type aspirin 81 mg tablet,delayed 81 mg PO QAM 04/02/18 01/12/24 History release (Ashly Low Dose Aspirin) acetaminophen 500 mg tablet 500 mg PO Q4H PRN Pain 10/02/21 01/12/24 History levothyroxine 25 mcg tablet 25 mcg PO QAM 10/02/21 01/12/24 History atorvastatin 80 mg tablet 80 mg PO DAILY 11/20/21 01/12/24 History ferrous sulfate 325 mg (65 mg 325 mg PO QAM 11/20/21 01/12/24 History iron) tablet carvedilol 25 mg tablet 37.5 mg PO AMPM 11/22/21 01/12/24 History clonidine HCl 0.1 mg tablet 0.1 mg PO AMHS 11/22/21 01/12/24 History sertraline 25 mg tablet 25 mg PO QAM 11/22/21 01/12/24 History terazosin 2 mg capsule 4 mg PO HS 11/22/21 01/12/24 History cholecalciferol (vitamin D3) 50 50 mcg PO DAILY 03/27/22 01/12/24 History mcg (2,000 unit) capsule (Vitamin D3) amlodipine 5 mg tablet 5 mg PO AMHS 01/05/24 01/12/24 History dicyclomine 10 mg capsule 10 mg PO BID PRN Abdominal Pain 01/05/24 01/12/24 History folic acid 1 mg tablet 1 mg PO DAILY 01/05/24 01/12/24 History furosemide 40 mg tablet 40 mg PO QAM 01/05/24 01/12/24 History hydralazine 100 mg tablet 100 mg PO TID 01/05/24 01/12/24 History methotrexate sodium 2.5 mg tablet 15 mg PO WK 01/05/24 01/12/24 History pregabalin 25 mg capsule 25 mg PO AMHS 01/05/24 01/12/24 History spironolactone 25 mg tablet 25 mg PO QAM 01/05/24 01/12/24 History warfarin 4 mg tablet (Jantoven) See Rx Instructions .Route .COMPLEX 01/05/24 01/12/24 History pantoprazole 40 mg tablet,delayed 40 mg PO BID #60 tabs 01/08/24 01/12/24 Rx release ascorbate calcium (vitamin C) 500 500 mg PO DAILY 01/10/24 01/12/24 History mg tablet magnesium hydroxide 400 mg/5 mL 5 ml PO DAILY PRN 01/10/24 01/12/24 History oral suspension (Dulcolax (magnesium hydroxide)) donepezil 5 mg tablet 5 mg PO DAILY #30 tabs 01/12/24 01/12/24 Rx Past Med/Surg History Problem List (HFpEF) heart failure with preserved ejection fraction Troponin level elevated Lactic acidosis Emphysematous cystitis Severe sepsis Physical deconditioning Mild cognitive impairment Hypothyroidism Chronic heart failure with preserved ejection fraction (HFpEF) Permanent atrial fibrillation Melena (Acute) Acute GI bleeding (Acute) Abdominal pain (Acute) Hypertensive emergency 2017 Rheumatoid arthritis PAD (peripheral artery disease) Postoperative back pain (Acute) Compression fracture of L1 lumbar vertebra Back pain (Acute) Venous ulcer-leg syndrome, left Abnormal CT of the abdomen Postlaminectomy syndrome of lumbar region Hematoma following procedure Blood loss anemia Encounter for pre-operative examination Postoperative hematoma (Acute) Postlaminectomy syndrome of lumbar region Anemia Hgb 10-13 over past year PAF (paroxysmal atrial fibrillation) post operative, follows with [facility] cardio, on warfarin Depression CAD (coronary artery disease) 1991 - PTCA/PCI to ramus intermedius complicated by spiral dissection non-obstructive per 2017 cardiac cath Follows with [facility] cardiology Diabetes mellitus, type II no longer on medication-waiting to hear back from about a new medicine as the Jardiance was too expensive GERD (gastroesophageal reflux disease) controlled, stable per pt HTN (hypertension) (Acute) controlled, stable per pt Dyslipidemia IBS (irritable bowel syndrome) History of breast cancer Right breast- RUE limb restriction* Status post renal artery angioplasty 1994 History of bilateral knee arthroplasty Left (1995) x2 , right (2005) History of cholecystectomy 1998 History of modified radical mastectomy of right breast 2010 H/O repair of right rotator cuff 2012 Medical History Limb alert care status RUE limb restriction Aortic stenosis "Mild" per 12/2022 echo Sleep apnea no treatment History of COVID-19 x 01/2020 and 05/2020 while in [facility] for rehab, denies residual issues Myocardial Infarction 1994, had a balloon angioplasty, [facility] MRSA infection Hx-more than 1 year ago Atrial fibrillation with RVR f/u [facility] PAD (peripheral artery disease) severe right brachiocephalic stenosis and moderate to severe abdominal aortic stenosis- under surveillance by cardiovascular-on warfarin Chronic back pain LLE radiculopathy Rheumatoid arthritis Hiatal hernia Hypothyroidism CVA (cerebral vascular accident) 2016, residual unsteady, left sided weakness Surgical History History of surgery on left wrist "put a plate in for the arthritis" History of surgery Hematoma evacuation, stimulator check (11/20/21): Grade 1 view, MAC#3, ETT 7.0 at [facility]. No issues noted per post-op anesthesia progress note. S/P insertion of spinal cord stimulator placed in 2021, [facility]>has had it checked multiple times History of fracture of nasal bone no sx. History of shoulder replacement R Status post lumbar surgery History of back surgery x3, 2019 History of cardiac cath 2017 ([facility]) > no stents History of colonoscopy Family History Daughter Family history of reaction to anesthesia SLOW TO WAKE UP Mother Family history of diabetes mellitus Other Heart disease Hypertension Social History Smoking Status: Former smoker Second Hand Exposure: No; Do You Dip or Chew Tobacco: No; Hx Alcohol Use: No Hx Substance Use: No Preferred Language: Kinyarwanda Communication Ability: Effective Visual Impairment: No Limitations Hearing Ability: Normal Engineer And Geologist Required: No Beliefs That Will Affect Care: None marital status: Current Living Situation: Spouse current occupational status: retired Feels Safe at Home: Yes Assistive Devices: Bedside Commode, Walker and Wheelchair Review of Systems Review of Systems: all noted and negative except for above Results & Data Results & Data Vital Signs (Past 12 Hours) Vital Signs Temp Pulse Pulse Resp BP BP Pulse Ox 02/07/24 14:04 36 C L 81 22 85/49 L 99 02/07/24 13:48 82 22 87/65 L 99 02/07/24 13:33 36.5 C 85 20 87/53 L 96 02/07/24 12:55 86 19 94/69 L 100 02/07/24 12:16 36.8 C 84 19 94/65 L 95 02/07/24 12:06 98 02/07/24 11:35 97 H 02/07/24 11:30 36.8 C 101 H 22 82/53 L 97 O2 Del Method 02/07/24 14:04 Room Air 02/07/24 13:48 Room Air 02/07/24 13:33 Room Air 02/07/24 12:55 Room Air 02/07/24 12:16 Room Air 02/07/24 12:06 Room Air 02/07/24 11:35 02/07/24 11:30 Room Air
[2024-02-07 15:21] LABS: Adenovirus F 40/41 PCR Not Detected (NotDetected); Astrovirus PCR Not Detected (NotDetected); Campylobacter PCR Not Detected (NotDetected); Cryptosporidium PCR Not Detected (NotDetected); Cyclospora cayetanensis PCR Not Detected (NotDetected); Entamoeba histolytica PCR Not Detected (NotDetected); Enteroaggregative E.coli(EAEC) Not Detected (NotDetected); Enteropathogenic E.coli (EPEC) Not Detected (NotDetected); Enterotoxigenic E.coli (ETEC) Not Detected (NotDetected); Giardia lamblia PCR Not Detected (NotDetected); Norovirus GI/GII PCR Not Detected (NotDetected); Plesiomonas shigelloides PCR Not Detected (NotDetected); Rotavirus A PCR Not Detected (NotDetected); Salmonella PCR Not Detected (NotDetected); Sapovirus PCR Not Detected (NotDetected); Shiga-like Toxin E.coli (STEC) Not Detected (NotDetected); Shigella/Enteroinvasive E.coli Not Detected (NotDetected); Vibrio cholerae PCR Not Detected (NotDetected); Vibrio species PCR Not Detected (NotDetected); Yersinia enterocolitica PCR Not Detected (NotDetected)
[2024-02-07] MEDS: ACETAMINOPHEN 325 MG TAB PO STA (15:35)
[2024-02-07] MEDS ORDERED: ACETAMINOPHEN 325 MG TAB PO PRN (16:14)
[2024-02-07] MEDS ORDERED: GLUCAGON FOR INJ 1 MG VIAL SQ PRN (16:14)
[2024-02-07] MEDS ORDERED: MEROPENEM 1,000 MG in SYRINGE 0 ML IV SCH (16:14)
[2024-02-07] MEDS ORDERED: PHARMACY GLYCEMIC MGMT CONSULT PRN (16:14)
[2024-02-07] MEDS ORDERED: GLUCOSE 10 TAB/TUBE PO PRN (16:14)
[2024-02-07] MEDS ORDERED: CARBOHYDRATES FOR HYPOGLYCEMIA PO PRN (16:14)
[2024-02-07] MEDS ORDERED: DEXTROSE 50% 50 ML SYRINGE IV PRN (16:14)
[2024-02-07] MEDS ORDERED: GLUCOSE 40% GEL 15 GM TUBE PO PRN (16:14)
[2024-02-07] MEDS: traMADol HCL 50 MG TABLET PO STA (16:20)
[2024-02-07] MEDS ORDERED: PROMETHAZINE 12.5 MG/50.5 ML BAG IV PRN (16:25)
[2024-02-07] MEDS: NSS + 20MEQ KCL 20 MEQ/1,000 ML BAG IV SCH (16:58)
[2024-02-07] MEDS: PROMETHAZINE 12.5 MG/50.5 ML BAG IV ONE (16:58)
[2024-02-07] MEDS: SODIUM CHLORIDE 0.9% 500 ML IV ONE (17:00)
[2024-02-07] MEDS: LIDOCAINE 5% 1 PATCH TD SCH (17:03)
[2024-02-07] MEDS: ADVANCED PROBIOTIC 625 MG CAPSULE PO SCH (17:04)
[2024-02-07] MEDS: MEROPENEM 500 MG in SYRINGE 0 ML IV SCH (17:27)
--- NOTE | 2024-02-07 17:29 | Communication Note ---
Date of Service: February 07, 2024 Communication with hospitalist at approximately 1710. Consultation was sent for possible emphysematous cystitis. Patient's records were evaluated and imaging was reviewed. After reviewing the imaging, the hospitalist was reached out to and spoke to Dr. Barton by telephone. Based on patient records appears to be acutely septic with mild hypotension severely elevated white count and lactic acidosis. Imaging is showing likely air within the bladder possibly into the bladder sidewall. Also numerous pockets of air throughout the pelvis including the reproductive system and around the bowel. Suspicious appearance for active infection and new from imaging earlier in the summer. Very concerning for possible active infection with gas-forming organism. Most significant concern would be a developing Guzman's gangrene Recommended reaching out to gynecology to see if they felt that the patient may need to be transferred to a higher level of care if they would be unable to offer emergent surgical service. May require extensive surgical debridement and intervention if does develop into a necrotizing fasciitis and may require gynecologic and possibly general surgery intervention and possibly assistance urologically. Will be readily available if emergently debridement is necessary while at our facility. Will likely need close likely critical care management and aggressive antibiotic management based on developing sepsis. Will await decision on whether transfer to higher level is felt necessary. May need to be transferred urgently. At this point, would recommend catheterization of the bladder to decompress the system as well as broad-spectrum antibiotics and resuscitation.
[2024-02-07] MEDS: INSULIN ASPART PER UNIT CHARGE SC SCH (17:42)
[2024-02-07 19:03] LABS: Adenovirus PCR Not Detected (NotDetected); Bordetella parapertussis PCR Not Detected (NotDetected); Bordetella pertussis PCR Not Detected (NotDetected); Chlamydia pneumoniae PCR Not Detected (NotDetected); Coronavirus 229E PCR Not Detected (NotDetected); Coronavirus CoV-2 (COVID19)PCR Not Detected (NotDetected); Coronavirus HKU1 PCR Not Detected (NotDetected); Coronavirus NL63 PCR Not Detected (NotDetected); Coronavirus OC43PCR Not Detected (NotDetected); Human Metapneumovirus PCR Not Detected (NotDetected); Influenza A PCR Not Detected (NotDetected); Influenza B PCR Not Detected (NotDetected); Mycoplasma pneumoniae PCR Not Detected (NotDetected); Parainfluenza Virus 1 PCR Not Detected (NotDetected); Parainfluenza Virus 2 PCR Not Detected (NotDetected); Parainfluenza Virus 3 PCR Not Detected (NotDetected); Parainfluenza Virus 4 PCR Not Detected (NotDetected); Respiratory Syncytial VirusPCR Not Detected (NotDetected); Rhinovirus/Enterovirus PCR Not Detected (NotDetected)
--- NOTE | 2024-02-07 19:32 | OB/GYN Consultation ---
Date of Consultation February 07, 2024 Assessment & Plan (1) Sepsis: (2) Troponin level elevated: (3) Atrophy of vulva: (4) Postmenopausal atrophic vaginitis: 78-year-old G3, P3 postmenopausal female admitted for severe sepsis and UTI, incidental finding of small air in pelvic area, Patient is asymptomatic, no BRAND COORDINATOR history, Pelvic exam is normal, Except physiologic menopausal vulvar vaginal atrophy, mild erythema of labia was likely from moisture and Ivanna, Recommend Mycolog external cream to labia/vulvar introitus area twice a day, Continue to monitor per protocol, Plan per hospitalist/medicine team. History of Present Illness Reason for Consultation: Incidental finding on CT of abdomen pelvis Attending Physician: Guilherme Barton MD History of Present Illness Patient is a 78-year-old -0-0-3 postmenopausal female who was admitted for severe sepsis caused by UTI this afternoon. During workup she had abdomen pe lvis CT scan which showed the following findings: IMPRESSION: 1. Scattered small foci of gas seen within the perineum near the vaginal introitus/urethra. There is also small foci of gas extending in and around the vaginal wall, bladder wall, and myometrium of the uterus. There are small foci of scattered gas within the deep pelvis which appear to be within the surrounding pelvic veins. There is small focus of gas within the left common femoral vein. These findings are indeterminate and could be due to recent trauma/iatrogenic process such as insertion of a [place] or rectal catheter. However, a gas-forming organism also remains in the differential diagnosis raising the possibility of an emphysematous cystitis. Therefore, clinical correlation recommended. 2. Fluid-filled nondistended loops of large and small bowel. This can be seen in the setting of a diarrheal illness/gastroenteritis. 3. Left-sided nephrolithiasis. No hydronephrosis. 4. Colonic diverticulosis. No evidence for acute diverticulitis. 5. Additional findings as described above. Patient has no BRAND COORDINATOR symptoms. Patient denies vulvar pain, edema, discomfort. She denies pelvic pain. She denies any history of BRAND COORDINATOR surgeries or procedures. She had 2 vaginal deliveries with no complications. She has been menopausal for over 25 years. She has never used hormonal replacement therapy for menopause. She has not been sexually active for the last 10 years. patient denies any history of abnormal Pap smears nor STDs. She has been with same partner, Her who is with her today. She complains of pain burning during urination. Allergies Allergy/AdvReac Type Severity Reaction Status Date / Time ABRIL Inhibitors AdvReac Severe hyperkalemi Verified 01/12/24 08:07 a nadolol AdvReac Unknown GI UPSET Verified 01/12/24 08:07 nitroglycerin AdvReac Unknown HEADACHE Verified 01/12/24 08:07 NSAIDS (Non-Steroidal AdvReac Unknown GI UPSET Verified 01/12/24 08:07 Anti-Inflamma metformin AdvReac Diarrhea Verified 01/12/24 08:07 Home Medications Medication Instructions Recorded Confirmed Type aspirin 81 mg tablet,delayed 81 mg PO QAM 04/02/18 02/07/24 History release (Ashly Low Dose Aspirin) acetaminophen 500 mg tablet 500 mg PO Q4H PRN Pain 10/02/21 02/07/24 History levothyroxine 25 mcg tablet 25 mcg PO QAM 10/02/21 02/07/24 History atorvastatin 80 mg tablet 80 mg PO DAILY 11/20/21 02/07/24 History ferrous sulfate 325 mg (65 mg 325 mg PO QAM 11/20/21 02/07/24 History iron) tablet carvedilol 25 mg tablet 37.5 mg PO AMPM 11/22/21 02/07/24 History clonidine HCl 0.1 mg tablet 0.1 mg PO AMHS 11/22/21 02/07/24 History sertraline 25 mg tablet 25 mg PO QAM 11/22/21 02/07/24 History terazosin 2 mg capsule 0 mg PO HS 11/22/21 02/07/24 History cholecalciferol (vitamin D3) 50 50 mcg PO DAILY 03/27/22 02/07/24 History mcg (2,000 unit) capsule (Vitamin D3) amlodipine 5 mg tablet 5 mg PO AMHS 01/05/24 02/07/24 History dicyclomine 10 mg capsule 10 mg PO BID PRN Abdominal Pain 01/05/24 02/07/24 History folic acid 1 mg tablet 1 mg PO DAILY 01/05/24 02/07/24 History furosemide 40 mg tablet 40 mg PO QAM 01/05/24 02/07/24 History hydralazine 100 mg tablet 0 mg PO TID 01/05/24 02/07/24 History methotrexate sodium 2.5 mg tablet 15 mg PO WK 01/05/24 02/07/24 History pregabalin 25 mg capsule 25 mg PO AMHS 01/05/24 02/07/24 History spironolactone 25 mg tablet 25 mg PO QAM 01/05/24 02/07/24 History warfarin 4 mg tablet (Jantoven) See Rx Instructions .Route .COMPLEX 01/05/24 02/07/24 History pantoprazole 40 mg tablet,delayed 40 mg PO BID #60 tabs 01/08/24 02/07/24 Rx release ascorbate calcium (vitamin C) 500 500 mg PO DAILY 01/10/24 02/07/24 History mg tablet magnesium hydroxide 400 mg/5 mL 5 ml PO DAILY PRN Constipation 01/10/24 02/07/24 History oral suspension (Dulcolax (magnesium hydroxide)) donepezil 5 mg tablet 5 mg PO DAILY #30 tabs 01/12/24 02/07/24 Rx Patient History Medical History Limb alert care status RUE limb restriction Aortic stenosis "Mild" per 12/2022 echo Sleep apnea no treatment History of COVID-19 x 01/2020 and 05/2020 while in [place] [place] [facility] for rehab, denies residual issues Myocardial Infarction 1994, had a balloon angioplasty, [facility] [place] MRSA infection Hx-more than 1 year ago Atrial fibrillation with RVR f/u [facility] PAD (peripheral artery disease) severe right brachiocephalic stenosis and moderate to severe abdominal aortic stenosis- under surveillance by cardiovascular-on warfarin Chronic back pain LLE radiculopathy Rheumatoid arthritis Hiatal hernia CVA (cerebral vascular accident) 2016, residual unsteady, left sided weakness Surgical History History of surgery on left wrist "put a plate in for the arthritis" History of surgery Hematoma evacuation, stimulator check (11/20/21): Grade 1 view, MAC#3, ETT 7.0 at [facility]. No issues noted per post-op anesthesia progress note. S/P insertion of spinal cord stimulator placed in 2021, [facility]>has had it checked multiple times History of fracture of nasal bone no sx. History of shoulder replacement R Status post lumbar surgery History of back surgery x3, 2019 History of cardiac cath 2017 ([facility]) > no stents History of colonoscopy Family History Daughter Family history of reaction to anesthesia SLOW TO WAKE UP Mother Family history of diabetes mellitus Other Heart disease Hypertension Social History Smoking Status: Former smoker Second Hand Exposure: No; Do You Dip or Chew Tobacco: No; Hx Alcohol Use: No Hx Substance Use: No Preferred Language: Pakistani Communication Ability: Effective Visual Impairment: No Limitations Hearing Ability: Normal Chief Marketing Officer Required: No Beliefs That Will Affect Care: None marital status: Current Living Situation: Spouse current occupational status: retired Other Information That Helps Us Care for You: No Feels Safe at Home: Yes Safety Concerns: Feels Safe At This Time Assistive Devices: Denture - Upper, Denture - Lower and Walker Assistive Devices Comment: not with patient, at home Review of Systems Constitutional: as per Subjective / HPI, + fatigue and + weakness Physical Exam Constitutional: WD/WN, vitals as above + thin, + frail appearing, cooperative and + lethargic Gastrointestinal (Abdomen): normal bowel sounds, soft, nontender, no hepa tosplenomegaly Genitourinary: normal external appearance (Except physiologic vulvar atrophy, mild erythema), bladder normal to inspection, + external erythema and normal appearance of the urethra Speculum/Bimanual Exam: normal appearance of the vagina, bladder normal to palpation, normal vaginal palpation and normal cervical palpation bimanual exam revealed nontender normal vagina, uterus is not tender, normal size, adnexa nontender nonpalpable. External genitalia is normal to palpation and inspection except mild erythema most likely from mild Ivanna versus atrophy, I have not felt any gas or crepitus during palpation of the genital area nor vagina nor in the pelvis Results & Data Vital Signs (Past 12 Hours) Vital Signs Temp Pulse Pulse Resp BP BP Pulse Ox 02/07/24 18:00 101/62 02/07/24 17:17 02/07/24 16:25 37 C 95 H 20 91/54 L 94 02/07/24 15:46 36 C L 76 20 87/66 L 95 02/07/24 14:04 36 C L 81 22 85/49 L 99 02/07/24 13:48 82 22 87/65 L 99 02/07/24 13:33 36.5 C 85 20 87/53 L 96 02/07/24 12:55 86 19 94/69 L 100 02/07/24 12:16 36.8 C 84 19 94/65 L 95 02/07/24 12:06 98 02/07/24 11:35 97 H 02/07/24 11:30 36.8 C 101 H 22 82/53 L 97 O2 Del Method 02/07/24 18:00 02/07/24 17:17 Room Air 02/07/24 16:25 Room Air 02/07/24 15:46 Room Air 02/07/24 14:04 Room Air 02/07/24 13:48 Room Air 02/07/24 13:33 Room Air 02/07/24 12:55 Room Air 02/07/24 12:16 Room Air 02/07/24 12:06 Room Air 02/07/24 11:35 02/07/24 11:30 Room Air Laboratory Results Lab Results 02/07/24 02/07/24 02/07/24 Range/Units 11:31 13:15 13:30 WBC 26.69 H (4.8-10.8) K/ul RBC 3.24 L (4.20-5.40) M/uL Hgb 11.2 L (12.0-16.0) g/dl Hct 33.8 L (37.0-47.0) % MCV 104.3 H (80.0-100.0) fL MCH 34.6 H (25.0-34.0) pg MCHC 33.1 (32.0-36.0) g/dL RDW Std Deviation 55.2 H (36.4-46.3) fL RDW Coeff of Farheen 14.5 (11.5-14.5) % Plt Count 131 (130-400) K/uL MPV 10.0 (9.4-12.4) fL Immature Gran % (Auto) 3.2 % Neut % (Auto) 90.8 % Lymph % (Auto) 2.6 % [place] % (Auto) 3.3 % Eos % (Auto) 0.0 % Baso % (Auto) 0.1 % Neut # (Auto) 24.23 H (1.40-6.50) K/uL Lymph # (Auto) 0.69 L (1.20-3.40) K/uL [place] # (Auto) 0.88 H (0.11-0.59) K/uL Eos # (Auto) 0.01 (0.00-0.50) K/uL Baso # (Auto) 0.03 (0.00-0.20) K/uL Immature Gran # (Auto) 0.85 H (0.01-0.20) K/uL Absolute Nucleated RBC 0.03 (0.00-0.12) K/uL Nucleated RBC % (auto) 0.1 % Dohle Bodies 2+ Polychromasia 1+ Tear Drop Cells 1+ Echinocytes 1+ PT 39.2 H (9.0-12.0) Seconds INR 4.1 H (0.9-1.1) Sodium 132 L (136-145) mmol/L Potassium 3.0 L (3.5-5.1) mmol/L Chloride 97 L (98-107) mmol/L Carbon Dioxide 16 L (21-32) mmol/L Anion Gap 19 H (3-11) BUN 41 H (6-23) mg/dl Creatinine 1.74 H (0.6-1.2) mg/dl Est Cr Clr Drug Dosing 28.8 ml/min Est GFR ( Amer) 31.8 ml/min Est GFR (Non-Af Amer) 27.4 ml/min BUN/Creatinine Ratio 23.6 H (10-20) Glucose 250 H (70-99(Fasting)) mg/dl POC Glucose (70-99) mg/dl Lactate 9.1 H* 7.0 H* (0.4-2.0) mmol/L Calcium 9.1 (8.6-10.3) mg/dl Magnesium 1.8 (1.7-2.4) mg/dl Total Bilirubin 5.1 H (0.2-1.0) mg/dl Direct Bilirubin 0.8 H (0-0.2) mg/dl AST 34 (13-39) U/L ALT 22 (7-52) U/L Alkaline Phosphatase 171 H (34-104) U/L Troponin I High Sens 112.3 H* (0-14) pg/ml Total Protein 6.6 (6.0-8.3) gm/dl Albumin 3.8 (3.4-5.0) gm/dl Procalcitonin 29.60 H (0-0.5) ng/ml Urine Color Urine Appearance (Clear) Urine pH (4.5-7.5) Ur Specific [place] (1.000-1.030) Urine Protein (Negative) Urine Glucose (UA) (Negative) Urine Ketones (Negative) Urine Blood (Negative) Urine Nitrite (Negative) Urine Bilirubin (Negative) Urine Urobilinogen (Negative) Ur Leukocyte Esterase (Negative) Urine WBC (Auto) (0-5) /hpf Urine RBC (Auto) (0-2) /hpf U Hyaline Cast (Auto) (0-2) /lpf U Epithel Cells (Auto) (0-2) /hpf Urine Bacteria (Auto) (None Seen) Nasal Screen MRSA (PCR) (Negative) Stl C. cayetanensis PCR Not Detected (NotDetected) Stool Rotavirus A PCR Not Detected (NotDetected) Stl Adenov F 40/41 PCR Not Detected (NotDetected) Stool Astrovirus (PCR) Not Detected (NotDetected) Stool Campylobacter PCR Not Detected (NotDetected) Stl C. diff Tox B Gene Negative Cdiff Gene (Neg) Stool Cryptosporidium PCR Not Detected (NotDetected) Stl E.coli Shiga Tox PCR Not Detected (NotDetected) Stl Enterotoxigenic E PCR Not Detected (NotDetected) Stool EPEC (PCR) Not Detected (NotDetected) Stool EAEC (PCR) Not Detected (NotDetected) Stl E. histolytica PCR Not Detected (NotDetected) Stool Giardia Lamblia PCR Not Detected (NotDetected) Stool Salmonella PCR Not Detected (NotDetected) Stool Sapovirus (PCR) Not Detected (NotDetected) Stl P. shigelloides PCR Not Detected (NotDetected) Stl Shigella/EIEC PCR Not Detected (NotDetected) St Y.enterocolitica PCR Not Detected (NotDetected) Stool Vibrio (PCR) Not Detected (NotDetected) Stl Vibrio cholerae PCR Not Detected (NotDetected) Stl Norovirus GI/GII PCR Not Detected (NotDetected) Adenovirus (PCR) (NotDetected) B. pertussis DNA (PCR) (NotDetected) B.parapertussis DNA PCR (NotDetected) C. pneumoniae DNA (PCR) (NotDetected) Coronavirus OC43 (PCR) (NotDetected) Coronavirus HKU1 (PCR) (NotDetected) Coronavirus 229E (PCR) (NotDetected) SARS-CoV-2 (PCR) (NotDetected) Coronavirus NL63 (PCR) (NotDetected) Human Metapneumovir PCR (NotDetected) Influenza Type A (PCR) (NotDetected) Influenza Type B (PCR) (NotDetected) M. pneumoniae (PCR) (NotDetected) Parainfluenza 1 (PCR) (NotDetected) Parainfluenza 2 (PCR) (NotDetected) Parainfluenza 3 (PCR) (NotDetected) Parainfluenza 4 (PCR) (NotDetected) RSV (PCR) (NotDetected) Entero/Rhino (PCR) (NotDetected) 02/07/24 02/07/24 02/07/24 Range/Units 14:05 16:18 17:06 WBC (4.8-10.8) K/ul RBC (4.20-5.40) M/uL Hgb (12.0-16.0) g/dl Hct (37.0-47.0) % MCV (80.0-100.0) fL MCH (25.0-34.0) pg MCHC (32.0-36.0) g/dL RDW Std Deviation (36.4-46.3) fL RDW Coeff of Farheen (11.5-14.5) % Plt Count (130-400) K/uL MPV (9.4-12.4) fL Immature Gran % (Auto) % Neut % (Auto) % Lymph % (Auto) % [place] % (Auto) % Eos % (Auto) % Baso % (Auto) % Neut # (Auto) (1.40-6.50) K/uL Lymph # (Auto) (1.20-3.40) K/uL [place] # (Auto) (0.11-0.59) K/uL Eos # (Auto) (0.00-0.50) K/uL Baso # (Auto) (0.00-0.20) K/uL Immature Gran # (Auto) (0.01-0.20) K/uL Absolute Nucleated RBC (0.00-0.12) K/uL Nucleated RBC % (auto) % Dohle Bodies Polychromasia Tear Drop Cells Echinocytes PT (9.0-12.0) Seconds INR (0.9-1.1) Sodium (136-145) mmol/L Potassium (3.5-5.1) mmol/L Chloride (98-107) mmol/L Carbon Dioxide (21-32) mmol/L Anion Gap (3-11) BUN (6-23) mg/dl Creatinine (0.6-1.2) mg/dl Est Cr Clr Drug Dosing ml/min Est GFR ( Amer) ml/min Est GFR (Non-Af Amer) ml/min BUN/Creatinine Ratio (10-20) Glucose (70-99(Fasting)) mg/dl POC Glucose 238 H (70-99) mg/dl Lactate (0.4-2.0) mmol/L Calcium (8.6-10.3) mg/dl Magnesium (1.7-2.4) mg/dl Total Bilirubin (0.2-1.0) mg/dl Direct Bilirubin (0-0.2) mg/dl AST (13-39) U/L ALT (7-52) U/L Alkaline Phosphatase (34-104) U/L Troponin I High Sens 63.8 H* D (0-14) pg/ml Total Protein (6.0-8.3) gm/dl Albumin (3.4-5.0) gm/dl Procalcitonin (0-0.5) ng/ml Urine Color Urine Appearance (Clear) Urine pH (4.5-7.5) Ur Specific [place] (1.000-1.030) Urine Protein (Negative) Urine Glucose (UA) (Negative) Urine Ketones (Negative) Urine Blood (Negative) Urine Nitrite (Negative) Urine Bilirubin (Negative) Urine Urobilinogen (Negative) Ur Leukocyte Esterase (Negative) Urine WBC (Auto) (0-5) /hpf Urine RBC (Auto) (0-2) /hpf U Hyaline Cast (Auto) (0-2) /lpf U Epithel Cells (Auto) (0-2) /hpf Urine Bacteria (Auto) (None Seen) Nasal Screen MRSA (PCR) Negative (Negative) Stl C. cayetanensis PCR (NotDetected) Stool Rotavirus A PCR (NotDetected) Stl Adenov F 40/41 PCR (NotDetected) Stool Astrovirus (PCR) (NotDetected) Stool Campylobacter PCR (NotDetected) Stl C. diff Tox B Gene (Neg) Stool Cryptosporidium PCR (NotDetected) Stl E.coli Shiga Tox PCR (NotDetected) Stl Enterotoxigenic E PCR (NotDetected) Stool EPEC (PCR) (NotDetected) Stool EAEC (PCR) (NotDetected) Stl E. histolytica PCR (NotDetected) Stool Giardia Lamblia PCR (NotDetected) Stool Salmonella PCR (NotDetected) Stool Sapovirus (PCR) (NotDetected) Stl P. shigelloides PCR (NotDetected) Stl Shigella/EIEC PCR (NotDetected) St Y.enterocolitica PCR (NotDetected) Stool Vibrio (PCR) (NotDetected) Stl Vibrio cholerae PCR (NotDetected) Stl Norovirus GI/GII PCR (NotDetected) Adenovirus (PCR) Not Detected (NotDetected) B. pertussis DNA (PCR) Not Detected (NotDetected) B.parapertussis DNA PCR Not Detected (NotDetected) C. pneumoniae DNA (PCR) Not Detected (NotDetected) Coronavirus OC43 (PCR) Not Detected (NotDetected) Coronavirus HKU1 (PCR) Not Detected (NotDetected) Coronavirus 229E (PCR) Not Detected (NotDetected) SARS-CoV-2 (PCR) Not Detected (NotDetected) Coronavirus NL63 (PCR) Not Detected (NotDetected) Human Metapneumovir PCR Not Detected (NotDetected) Influenza Type A (PCR) Not Detected (NotDetected) Influenza Type B (PCR) Not Detected (NotDetected) M. pneumoniae (PCR) Not Detected (NotDetected) Parainfluenza 1 (PCR) Not Detected (NotDetected) Parainfluenza 2 (PCR) Not Detected (NotDetected) Parainfluenza 3 (PCR) Not Detected (NotDetected) Parainfluenza 4 (PCR) Not Detected (NotDetected) RSV (PCR) Not Detected (NotDetected) Entero/Rhino (PCR) Not Detected (NotDetected) 02/07/24 Range/Units Unknown WBC (4.8-10.8) K/ul RBC (4.20-5.40) M/uL Hgb (12.0-16.0) g/dl Hct (37.0-47.0) % MCV (80.0-100.0) fL MCH (25.0-34.0) pg MCHC (32.0-36.0) g/dL RDW Std Deviation (36.4-46.3) fL RDW Coeff of Farheen (11.5-14.5) % Plt Count (130-400) K/uL MPV (9.4-12.4) fL Immature Gran % (Auto) % Neut % (Auto) % Lymph % (Auto) % [place] % (Auto) % Eos % (Auto) % Baso % (Auto) % Neut # (Auto) (1.40-6.50) K/uL Lymph # (Auto) (1.20-3.40) K/uL [place] # (Auto) (0.11-0.59) K/uL Eos # (Auto) (0.00-0.50) K/uL Baso # (Auto) (0.00-0.20) K/uL Immature Gran # (Auto) (0.01-0.20) K/uL Absolute Nucleated RBC (0.00-0.12) K/uL Nucleated RBC % (auto) % Dohle Bodies Polychromasia Tear Drop Cells Echinocytes PT (9.0-12.0) Seconds INR (0.9-1.1) Sodium (136-145) mmol/L Potassium (3.5-5.1) mmol/L Chloride (98-107) mmol/L Carbon Dioxide (21-32) mmol/L Anion Gap (3-11) BUN (6-23) mg/dl Creatinine (0.6-1.2) mg/dl Est Cr Clr Drug Dosing ml/min Est GFR ( Amer) ml/min Est GFR (Non-Af Amer) ml/min BUN/Creatinine Ratio (10-20) Glucose (70-99(Fasting)) mg/dl POC Glucose (70-99) mg/dl Lactate (0.4-2.0) mmol/L Calcium (8.6-10.3) mg/dl Magnesium (1.7-2.4) mg/dl Total Bilirubin (0.2-1.0) mg/dl Direct Bilirubin (0-0.2) mg/dl AST (13-39) U/L ALT (7-52) U/L Alkaline Phosphatase (34-104) U/L Troponin I High Sens (0-14) pg/ml Total Protein (6.0-8.3) gm/dl Albumin (3.4-5.0) gm/dl Procalcitonin (0-0.5) ng/ml Urine Color Yellow Urine Appearance Cloudy A (Clear) Urine pH 5.5 (4.5-7.5) Ur Specific [place] 1.027 (1.000-1.030) Urine Protein 2+ H (Negative) Urine Glucose (UA) 3+ H (Negative) Urine Ketones Negative (Negative) Urine Blood 2+ H (Negative) Urine Nitrite Negative (Negative) Urine Bilirubin Negative (Negative) Urine Urobilinogen Negative (Negative) Ur Leukocyte Esterase 1+ H (Negative) Urine WBC (Auto) >50 H (0-5) /hpf Urine RBC (Auto) 6-10 H (0-2) /hpf U Hyaline Cast (Auto) 0-2 (0-2) /lpf U Epithel Cells (Auto) 6-10 H (0-2) /hpf Urine Bacteria (Auto) 4+ H (None Seen) Nasal Screen MRSA (PCR) (Negative) Stl C. cayetanensis PCR (NotDetected) Stool Rotavirus A PCR (NotDetected) Stl Adenov F 40/41 PCR (NotDetected) Stool Astrovirus (PCR) (NotDetected) Stool Campylobacter PCR (NotDetected) Stl C. diff Tox B Gene (Neg) Stool Cryptosporidium PCR (NotDetected) Stl E.coli Shiga Tox PCR (NotDetected) Stl Enterotoxigenic E PCR (NotDetected) Stool EPEC (PCR) (NotDetected) Stool EAEC (PCR) (NotDetected) Stl E. histolytica PCR (NotDetected) Stool Giardia Lamblia PCR (NotDetected) Stool Salmonella PCR (NotDetected) Stool Sapovirus (PCR) (NotDetected) Stl P. shigelloides PCR (NotDetected) Stl Shigella/EIEC PCR (NotDetected) St Y.enterocolitica PCR (NotDetected) Stool Vibrio (PCR) (NotDetected) Stl Vibrio cholerae PCR (NotDetected) Stl Norovirus GI/GII PCR (NotDetected) Adenovirus (PCR) (NotDetected) B. pertussis DNA (PCR) (NotDetected) B.parapertussis DNA PCR (NotDetected) C. pneumoniae DNA (PCR) (NotDetected) Coronavirus OC43 (PCR) (NotDetected) Coronavirus HKU1 (PCR) (NotDetected) Coronavirus 229E (PCR) (NotDetected) SARS-CoV-2 (PCR) (NotDetected) Coronavirus NL63 (PCR) (NotDetected) Human Metapneumovir PCR (NotDetected) Influenza Type A (PCR) (NotDetected) Influenza Type B (PCR) (NotDetected) M. pneumoniae (PCR) (NotDetected) Parainfluenza 1 (PCR) (NotDetected) Parainfluenza 2 (PCR) (NotDetected) Parainfluenza 3 (PCR) (NotDetected) Parainfluenza 4 (PCR) (NotDetected) RSV (PCR) (NotDetected) Entero/Rhino (PCR) (NotDetected) (1) Sepsis Acute renal failure type: unspecified Sepsis acute organ dysfunction status: with acute organ dysfunction Sepsis type: sepsis due to unspecified organism Severe sepsis acute organ dysfunction type: acute renal failure Severe sepsis shock status: with septic shock Qualified Code(s): A41.9 - Sepsis, unspecified organism; R65.21 - Severe sepsis with septic shock; N17.9 - Acute kidney failure, unspecified
--- OUTSIDE RECORDS SUMMARY | 2024-02-07 19:32 | External Medical Summary | Summary of Care ---
Author Name Unknown Organization [facility] Address [address] [place] [address] Phone [phone] Care Team Providers Care Director Of Property Management Name Role Phone Derrek Sparks MD Primary Care Provider [phone] Reason for Visit * Reason Onset Date Comments Order Request 11/04/2023 Encounter Details Date Type Department Care Team (Late st Contact Info) Description 11/04/2023 Telephone [facility] [address] [place] [address] Derrek Sparks MD [address] [place] [address] Order Request Allergies Active Allergy Reactions Criticality Noted Date Comments Tello Inhibitors 05/08/2021 Hyperkalemia resulting in 2 hospitalizations Metformin Diarrhea 11/05/2022 Nadolol Itching 03/17/1999 Corgard itchy Nitroglycerin Other (Please comment) 02/09/2011 Headache that is only relieved with Morphine. Nsaids Nausea/vomiting 03/17/1999 relafen documented as of this encounter (statuses as of 02/03/2024) Medications Medication Sig Dispensed Refills Start Date [...] by mouth in the morning. 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 180 Capsule 3 4 Active Additional Information Patient not taking.Reported on 01/17/2024 hydrALAZINE HCl 100 MG Oral TabletIndications :HTN, goal below 140/90 TAKE 1 TABLET BY MOUTH IN THE MORNING AND 1 TABLET AT NOON AND 1 TABLET BEFORE BEDTIME 270 Tablet 3 4 Active Additional Information Patient not taking.Reported on 01/17/2024 Spironolactone 25 MG Oral Tablet (Aldactone)Indica tions:HTN, goal below 130/80,Chronic diastolic congestive heart failure (HCC),Persistent atrial fibrillation (HCC) Take 1 Tablet by mouth in the morning. 90 Tablet 3 4 Active cloNIDine HCl 0.1 MG Oral Tablet (Catapres)Indicat ions:HTN, goal below 140/80 TAKE 1 TABLET BY MOUTH IN THE MORNING AND 1 TABLET BEFORE BEDTIME. 180 Tablet 3 3 11/08/19 24 Discontinued Sertraline HCl 25 MG Oral Tablet (Zoloft)Indicatio ns:in am Take 1 tablet by mouth daily. 90 Tablet 3 3 12/11/19 24 Discontinued amLODIPine Besylate 5 MG Oral Tablet (Norvasc)Indicati ons:Resistant hypertension,HTN, goal below 140/90,Longstandi ng persistent atrial fibrillation (HCC),Atheroscler osis of aorta (HCC) Take 1 Tablet by mouth in the morning and 1 Tablet before bedtime. 180 Tablet 1 3 11/08/19 24 Discontinued Warfarin Sodium 4 MG Oral Tablet (Jantoven) TAKE 1 TO 1& 1/2 TABLETS BY MOUTH EVERY DAY OR DIRECTED BY COUMADIN CLINIC 135 Tablet 1 4 11/26/19 24 Discontinued Pregabalin 25 MG Oral Capsule (Lyrica)Indicatio ns:Type 2 diabetes mellitus with diabetic neuropathy, without long-term current use of insulin (HCC) Take 1 Capsule by mouth in the morning and 1 Capsule before bedtime. 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 03/24/2018 Old AR (myocardial infarction) 03/24/2018 Type [...] as of this encounter (statuses as of 02/03/2024) Resolved Problems Problem Noted Date Diagnosed Date [...] 36.9 with serious comorbidity 11/17/2018 Atherosclerosis of gambell co ronary artery of gambell heart without angina pectoris 11/17/201806/2021 Arteriosclerotic dementia [...] as of this encounter (statuses as of 02/03/2024) Immunizations Name Administration Dates Next Due COVID-19 mRNA, LNP-s, No Pre serve, 2-Dose Series (Pfizer) 10/30/2020,10/09/2020 DT - Diptheria/Tetanus (PEDS) 04/13/2002 PPD 01/19/2018 Pneumococcal Conjugate Vacc, 13 Valent (Prevnar) 03/15/2018 Pneumococcal Conjugate Vacci ne, 20-valent ([id number]) 10/26/2023 Pneumococcal Conjugate Vacci ne, 7 Valent [...] you got the money to buy more. Never true 01/17/20 24 Within the past 12 months, t he food you bought just didn't last and you didn't have money to get more. Never true 01/17/2024 Childcare Answer Date Recorded Do you feel overwhelmed with taking care of a child, family member or friend? No 01/17/2024 Does your family need help f inding childcare? (Household - for ages 0-17 years) Not on file 01/17/2024 Clothing Answer Date Recorded Have you been unable to get clothing when it was really needed? No 01/17/2024 Is your family able to get c lothes or diapers when needed? (Household - for ages 0-17 years) Not on file 01/17/2024 Personal Safety Answer Date Recorded Do you feel unsafe or have concerns for your saf ety? No 01/17/2024 Do you have concerns for you r family's safety? (Household - for ages 0-17 years) Not on file 01/17/2024 Utilities Answer Date Recorded Do you have trouble paying y our heating, water, or electric bill? Yes 01/17/2024 Is your family able to pay t he heat, water, or electric bill? (Household - for ages 0-17 years) Not on file 01/17/2024 Does your family have access to good internet? (Household - for ages 0-17 years) Not on file 01/17/2024 Employment Status Answer Date Recorded Are you unemployed or without regular income? No 01/17/2024 Does the household have a re gular source of income? (Household - for ages 0-17 years) Not on file 01/17/2024 Social Connections Answer Date Recorded How often do you feel lonely or isolated from th ose around you? Never 01/17/2024 Financial Resource Strain Answer Date R ecorded Do you have any trouble payi ng for your medications, or do you think you might in the future? Yes 01/17/2024 Does your family have troubl e paying for medicine? (Household - for ages 0-17 years) Not on file 01/17/2024 Transportation Needs Answer Date Record ed READ ONLY Do you have troubl e getting a ride to medical visits or work? Never True 01/17/2024 Does your family have a hard time getting a ride to doctors visits? (Household - for ages 0-17 years) Not on file 01/17/2024 Has lack of transportation k ept you from medical appointments, meetings, work, or from getting things needed for daily living? Check all that apply. No 01/17/2024 Do you (or your family) have trouble finding or paying for a ride (transportation)? (Household - for ages 0-17 years) Not on file 01/17/2024 Housing Stability Answer Date Recorded Do you currently live in a s helter or have no steady place to sleep at night? No 01/17/2024 READ ONLY Do you think you a re at risk of becoming homeless? No 01/17/2024 Does your family worry about paying for your home or becoming homeless? (Household - for ages 0-17 years) Not on file 0 01/17/2024 Are you homeless or worried that you might be in the future? No 01/17/2024 Are you (or your family) moe eless or worried that you might be in the future? (Household - for ages 0-17 years) Not on file Food Insecurity Answer Date Recorded Do you need food for this week? No 01/17/2024 Are you able to get enough f ood for your family? (Household - for ages 0-17 years) Not on file 01/17/2024 Does your family need food t his week? (Household - for ages 0-17 years) Not on file 01/17/2024 Do you always have enough fo od for your family? (Household - for ages 0-17 years) Not on file 01/17/2024 Sex and Gender Information Value Date Recorded Sex Assigned at Female 07/07/2022 8:10 AM EST Gender Identity Female 07/07/2022 8:10 AM EST Sexual Orientation Straight 04/29/2019 3: 38 PM EDT Job Start Date Occupation Industry Not on file Not on file Not on file documented as of this encounter Miscellaneous Notes * Telephone Encounter - Derrek Sparks MD - 11/04/2023 5:52 PM EDT ordered * Telephone Encounter - Johana Larsen OSA - 11/04/2023 2:18 PM EDT Pt will need an order For an xray of the T spine prior to MRI schd on 11/26/23 could we get an orderplease documented in this encounter Plan of Treatment Upcoming Encounters Date Type Department Care Team (Latest Contact Info) Description 02/07/20 9:30 AM EDT Home Visit Care Coordination and Integration [address] [place] [address] Agustina Shafer, [facility] Liaison [address] [place] [address] 02/10/20 10:50 AM EDT Anticoagulation Pharmacy, [place] [address] [place] [address] [facility] [place] [address] 02/18/20 11:00 AM EDT Anticoagulation Pharmacy, [place] [address] [place] [address] [facility] [address] [place] [address] 02/24/20 2:00 PM EDT Hospital Encounter ENDO [facility], Endoscopy Room [facility] [address] [place] [id number] Ni Dos Santos DO [address] [place] [address] 02/24/20 24 2:00 PM EDT - 02/24/20 24 2:30 PM EDT Surgery ENDO [facility], Endoscopy Room [facility] [address] [place] [phone] Ni Dos Santos, DO [address] [place] [address] ESOPHAGOGASTRODUODENOSCOPY (EGD), FLEXIBLE, TRANSORAL, DIAGNOSTIC 04/04/20 9:00 AM EDT Office Visit [facility], [facility] [place] [address] Corrine Quinn, PANehalC [address] [facility] [place] [address] 05/11/20 24 10:15 AM EST Office Visit Ophthalmology, [facility] [address] [facility] [place] [address] Doyle Heredia, DO [address] [facility] [place] [address] 05/18/20 24 10:40 AM EST [facility] [place] [address] [facility] [phone] [facility]ks [facility] [address] [facility] [address] 05/18/20 24 1:00 PM EST Office Visit [facility]at[facility], [place] [address] [facility] [address] [place] [address] [place] [address] [place] [address] 06/12/20 24 10:30 AM EST Office Visit Rheumatology [facility] [address] [facility] [place], [place] [address] Carlitos Castro CRNP [address] [facility] [place], [place] [address] 12/15/19 9:00 AM EDT Home Visit Care at Home [address], [place] [id number] Delmy Boggs PA-C [address], [place] [phone] Scheduled Procedures Name Priority Associated Diagnoses Date/Ti me ESOPHAGOGASTRODUODENOSCOPY ( EGD), FLEXIBLE, TRANSORAL, DIAGNOSTIC Gastrointestinal hemorrhage with melena Anemia, unspecified type Abdominal pain, generalized 02/24/2024 2:00 PM EDT Health Maintenance Due Date Last Done Comments Zoster Vaccines (1 of 2) 03/11/2016 01/15/2016 COVID-19 Vaccine (3 - Pfizer risk series) 11/27/2020 10/30/2020, 10/09/2020 Influenza Vaccine (FLU shot) (#1) 2024 04/13/2023, 03/13/2021, 03/13/2021, Additional history exists Diabetic Eye Exam 04/29/2024 04/29/2023, , 04/29/2023, Additional history exists DXA Scan 05/03/2024 05/03/2023, 11/2022, 04/29/2021, Additional history exists Albumin/Creatinine Ratio 06/01/20242 023, 05/07/2022, 12/06/2020, Additional history exists TSH 06/01/2024 06/01/2023, 07/29, 04/21/2021, Additional history exists HbA1c 07/13/2024 01/11/2024, 08/2023, 06/01/2023, Additional history exists Adult Wellness Visit 12/13/2024 12/14/2023, 12/18/19 21 Depression Screening 12/13/2024 12/14/2023, 10/26/19 24 Diabetic Foot Exam 01/10/2025 01/11/2024, 0 07/07/2022, 10/22/2020, Additional history exists GFR 01/10/2025 01/11/2024, 09/27, 08/05/2023, Additional history exists Colonoscopy 08/18/2025 08/18/2022, 07/30, 11/14/2020, Additional history exists DTaP,Tdap,and Td Vaccines (4 - Td or Tdap) 03/15/2028 03/15/2018, 03/15/2018, 01/25/2017, Additional history exists RETIRED - COLONOSCOPY-ANNUAL AGES 18-100 Discontinued 08/18/2022, 08/18/2022, 11/14/2020, Additional history exists Pneumococcal Vaccine: 65+ Years Completed 10/26/2023, 03/15/2018, 01/12/2002, Additional history exists VITAMIN D LEVEL ONCE IN A LIFETIME-USE SMARTSET# [id number] Completed 12/03/2023, 06/22/2023, 06/01/2023, Additional history exists [...] this encounter Medical Devices Implanted Type Area Barker Operator Device Identifier Shelf Expiration Date Model / Serial / Lot Lead- 3 Implanted:Qt y: 1 on 01/26/[address] DO Lead Back 1295.04 07/28/2025 [id number] / / Description:Implanted at [facility] Neurostimula tor-01/26/2023 Implanted: by Rashaad Street DO (Quantity not on file) Neurostimulator 1295.04 10/25/2025 [id number] / [id number] / Description:Nikita page at [facility] Clip Quick 2.8mm 230cm - [id number] Implanted:Qt y: 4 on 11/14/2020 by Martina Cancino MD at ENDOSCOPY [facility] [employer] 06/27/2023 [id number] / / Lens 19.5 [id number] - [id number] - [id number] Implanted:Qt y: 1 on 03/26/2021 by Doyle Heredia DO at OR [facility] Right: Eye BRII : SURGICAL 10/29/2025 [id number] / [id number] / Lens 19.5 [id number] - [id number] - [id number] Implanted:Qt y: 1 on 03/11/2022 by Doyle Heredia DO at OR [facility] Left: Eye BRII : SURGICAL 10/29/2025 [id number] / [id number] / documented as of this encounter Results * XR THORACOLUMBAR SPINE MIN 2 VIEWS (11/26/2023 11:51 AM EDT) Anatomical Region Laterality Modality Vertebra, Spine, Tspine, Lspine Digital Radiography 11/26/2023 12:2 4 PM EDT Impressions 11/26/2023 12:22 PM EDT IMPRESSION Spinal cord stimulator as above. Narrative 11/26/2023 12:22 PM EDT EXAM XR THORACOLUMBAR SPINE MIN 2 VIEWS- 11/26/2023 11:51 am HISTORY Provided clinical history: "spinal cord stimulator in place, needed prior to MRI" TECHNIQUE Three views of the thoracolumbar spine were obtained. COMPARISON None. FINDINGS Spinal cord stimulator device is located in the right lower flank/upper buttock region, with the electrodes located in the dorsal aspect of the spinal canal at the T8-10 levels. No visible lead discontinuity. Status post posterolateral instrumented fusion extending from L2 to the pelvis and interbody fusion at L3-S1. Chronic T12 and L1 compression deformities, status post vertebroplasty. No acute fracture identified. Tfxc-[id number] multilevel intervertebral disc degeneration at the unfused levels. Atherosclerotic calcifications. Procedure Note Willem Seymour MD - 11/26/2023 EXAM XR THORACOLUMBAR SPINE MIN 2 VIEWS- 11/26/2023 11:51 am HISTORY Provided clinical history: "spinal cord stimulator in place, needed priorto MRI" TECHNIQUE Three views of the thoracolumbar spine were obtained. COMPARISON None. FINDINGS Spinal cord stimulator device is located in the right lower flank/upperbuttock region, with the electrodes located in the dorsal aspect of thespinal canal at the T8-10 levels. No visible lead discontinuity. Status post posterolateral instrumented fusion extending from L2 to thepelvis and interbody fusion at L3-S1. Chronic T12 and L1 compressiondeformities, status post vertebroplasty. No acute fracture identified.Jumh-yg-tzkaqslu multilevel intervertebral disc degeneration at theunfused levels. Atherosclerotic calcifications. IMPRESSION IMPRESSION Spinal cord stimulator as above. Derrek Sparks MD RADIOLOGY (RAD GEN ERAL) documented in this encounter Visit Diagnoses Diagnosis Lumbar radiculopathy- Primary Thoracic or lumbosacral neuritis or radiculitis, unspecified Lumbar radiculopathy Thoracic or lumbosacral neuritis or radiculitis, unspecified Gastrointestinal hemorrhage with melena Anemia, unspecified type Abdominal pain, generalized documented in this encounter Advance Directives * Full Code (Latest Code Status on File) Date Activated Date Inactivated Comments 03/11/2022 7:56 AM 03/11/2022 2:41 PM Question Answer Comments Discussion of Advance Direct donnie occurred with: Not Discussed due to patient's condition Care Teams Director Of Property Management Relationship Specialty Start Date End Date Derrek Sparks MD [address] [place] [address] PCP - General Family Medicine 08/04/22 documented as of this encounter
--- OUTSIDE RECORDS SUMMARY | 2024-02-07 19:32 | External Medical Summary | Summary of Care ---
Author Name Unknown Organization [facility] Address [address] [place] [address] Phone [phone] Care Team Providers Care Recruitment Director Name Role Phone Derrek Sparks MD Primary Care Provider [phone]- [phone] Encounter Details Date Type Department Care Team (Late st Contact Info) Description 02/04/2024 Telephone Gastroenterology, [facility] [address] [place] [address] Ni Dos Santos DO [address] [place] [address] Allergies Active Allergy Reactions Criticality Noted Date Comments Tello Inhibitors 05/08/2021 Hyperkalemia resulting in 2 hospitalizations Metformin Diarrhea 11/05/2022 Nadolol Itching 03/17/1999 Corgard itchy Nitroglycerin Other (Please comment) 02/09/2011 Headache that is only relieved with Morphine. Nsaids Nausea/vomiting 03/17/1999 relafen documented as of this encounter (statuses as of 02/04/2024) Medications Medication Sig Dispensed Refills Start Date [...] by mouth in the morning. 07/22/2020 Active Sim[employer] Verio w/Device KitIndications:DM type 2 with diabetic peripheral neuropathy (HCC) Use to check blood sugars daily as directed E11.9 1 Kit 10/10/2020 Active [employer] Verio In Vitro Strip (Glucose Blood)Indications: DM [...] Oral Tablet (Coreg)Indications :Coronary artery disease involving [place] coronary artery of buck[place] heart without angina pectoris,HTN, goal below 140/90 [...] AT BEDTIME. 180 Capsule 3 07/30/2023 Active Additional Information Patient not taking.Reported on 01/17/2024 hydrALAZINE HCl 100 MG Oral TabletIndications: HTN, goal below 140/90 TAKE 1 TABLET BY MOUTH IN THE MORNING AND 1 TABLET AT NOON AND 1 TABLET BEFORE BEDTIME 270 Tablet 3 08/10/2023 Active Additional Information Patient not taking.Reported on 01/17/2024 Spironolactone 25 MG Oral Tablet (Aldactone)Indicat ions:HTN, [...] ONCE DAILY 90 Tablet 1 12/11/2023 Active Pregabalin 25 MG Oral Capsule (Lyrica)Indication s:Type 2 diabetes mellitus with diabetic neuropathy, without long-term current use of insulin (HCC) Take 1 Capsule by mouth in the morning and 1 Capsule before bedtime. 60 Capsule 1 12/29/2023 Active Trulance 3 MG Oral Tablet (Plecanatide) Take 3 mg by mouth daily. 30 Tablet 01/13/2024 Active Empagliflozin 10 MG Oral Tablet (Jardiance) Take 1 Tablet by mouth in the morning. 30 Tablet 01/13/2024 Active Dicyclomine HCl 10 MG Oral Capsule (Bentyl)Indication s:Abdominal cramps Take 1 capsule by mouth twice daily as needed for abdominal pain. 60 Capsule 5 01/26/2024 Active documented as of this encounter (statuses as of 02/04/2024) Active Problems Problem Noted Date Diagnosed Date [...] cancer 11/06/2019 Coronary artery disease invo lving buck[place] coronary artery of buck[place] heart without angina pectoris 07/04/2019 Senile osteoporosis 05/15/2019 Nontoxic uninodular goiter 11/17/2018 Gastroesophageal reflux disease without esophagi tis 11/01/2018 Rheumatoid arthritis 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 03/24/2018 Old [place] (myocardial infarction) 03/24/2018 Type [...] as of this encounter (statuses as of 02/04/2024) Resolved Problems Problem Noted Date Diagnosed Date [...] of feces 01/25/20212023 Black tarry stools 01/25/2021 3 Overview: Noted in 2020 historical Postprocedural seroma [...] 36.9 with serious comorbidity 11/17/2018 Atherosclerosis of [place] co ronary artery of buck[place] heart without angina pectoris 11/17/201806/2021 Arteriosclerotic dementia [...] as of this encounter (statuses as of 02/04/2024) Immunizations Name Administration Dates Next Due COVID-19 mRNA, LNP-s, No Pre serve, 2-Dose Series (Pfizer) 10/30/2020,10/09/2020 DT - Diptheria/Tetanus (PEDS) 04/13/2002 PPD 01/19/2018 Pneumococcal Conjugate Vacc, 13 Valent (Prevnar) 03/15/2018 Pneumococcal Conjugate Vacci ne, 20-valent ([id number]) 10/26/2023 Pneumococcal Conjugate Vacci ne, 7 Valent [...] Cigarettes 1 30 0 02/12/1963 - 02/12/1993 Passive Smoke Exposure: Never Smokeless Tobacco: Never Alcohol Use Standard Drinks/Week [...] Visit Care Coordination and Integration [address] [place] [facility] [place] [address] Agustina Shafer, Community Health Vitamin Manager [address] [place] [address] 02/10/20 10:50 AM EDT Anticoagulation Pharmacy, [place] [address] [place] [address] [facility] [address] [place] [address] 02/18/20 11:00 AM EDT Anticoagulation Pharmacy, [place] [address] [place] [address] [facility] [address] [place] [address] 02/24/20 2:00 PM EDT Hospital Encounter ENDO [facility], Endoscopy Room [facility] [address] [place] [phone] Ni Dos Santos DO [address] [place] [address] 02/24/20 2:00 PM EDT - 02/24/20 2:30 PM EDT Surgery ENDO [facility], Endoscopy Room [facility] [address] [place] [phone] Ni Dos Santos, DO [address] [place] [address] ESOPHAGOGASTRODUODENOSCOPY (EGD), FLEXIBLE, TRANSORAL, DIAGNOSTIC 04/04/20 24 9:00 AM EDT Office Visit Cardiology, [facility] [address] [facility] [place] [address] Corrine Quinn, PANehalC [facility] [place] [address] 05/11/20 24 10:15 AM EST Office Visit [facility]hthal[facility], [facility] [place] [address] Doyle Heredia, DO [address] [facility] [place] [address] 05/18/20 24 10:40 AM EST Office Visit [facility] [place] [address] [facility] [address] Derrek Sparks MD [address] [place] [address] 05/18/20 24 1:00 PM EST Office Visit Dermatology, [place] [address] [facility], [place] [address] Sully Kearns, PAAmita [address] [place] [address] [place] [address] 06/12/20 24 10:30 AM EST Office Visit Rheumatology [place] [phone] [facility] [place] [address] Carlitos Castro CRNP [address] [facility] [place] [address] 12/15/19 9:00 AM EDT Home Visit Care at Home [address] [place] [address] Delmy Boggs PA-C [address] [place] [address] Scheduled Procedures Name Priority Associated Diagnoses Date/Ti [...] 04/21/2021, Additional history exists HbA1c 07/13/2024 01/11/2024, 050 08/2023, 06/01/2023, Additional history exists Adult Wellness [...] D LEVEL ONCE IN A LIFETIME-USE SMARTSET# 74110 Completed 12/03/2023, 06/22/2023, 06/01/2023, Additional history exists [...] this encounter Medical Devices Implanted Type Area Employee'S Representative Device Identifier Shelf Expiration Date Model / Serial / Lot Lead- 3 Implanted:Qt y: 1 on 01/26/[address] DO Lead Back 1295.04 07/28/2025 [id number] / / Description:Implanted at [facility] Neurostimula tor-01/26/2023 Implanted: by Rashaad Street DO (Quantity not on file) Neurostimulator 1295.04 10/25/2025 [id number] / [id number] / Description:Nikita page at [facility] Clip Quick 2.8mm 230cm - [id number] Implanted:Qt y: 4 on 11/14/2020 by Martina Cancino MD at ENDOSCOPY [facility] [employer] 06/27/2023 [id number]-202UR. A / / Lens 19.5 [id number] - [id number] - [id number] Implanted:Qt y: 1 on 03/26/2021 by Doyle Heredia DO at OR [facility] Right: Eye BRII : SURGICAL 10/29/2025 [id number] / [id number] 37 / Lens 19.5 [id number] - [id number] - [id number] Implanted:Qt y: 1 on 03/11/2022 by Doyle Heredia DO at OR [facility] Left: Eye BRII : SURGICAL 10/29/2025 [id number] / [id number] / documented as of this encounter Advance Directives * Full Code (Latest Code Status on File) Date Activated Date Inactivated Comments 03/11/2022 7:56 AM 03/11/2022 2:41 PM Question Answer Comments Discussion of Advance Direct donnie occurred with: Not Discussed due to patient's condition Care Teams Recruitment Director Relationship Specialty Start Date End Date Derrek Sparks MD [address] [place] [address] PCP - General Family Medicine 08/04/22 documented as of this encounter
--- OUTSIDE RECORDS SUMMARY | 2024-02-07 19:33 | External Medical Summary | Summary of Care ---
Author Name Unknown Organization [facility] Address [address] [place] [address] Phone [phone] Care Team Providers Care Health Clinician Name Role Phone Derrek Sparks MD Primary Care Provider +1- [phone] Reason for Visit * Reason Comments Dosage Adjustment In Person (Anticoag Cl inic) Encounter Details Date Type Department Care Team (Latest Contact Info) Description 01/28/2024 10:30 AM EDT Anticoagulation Pharmacy, [address] [address] [facility] [address] [place] [address] Anticoagulation management encounter*; Longstanding persistent atrial fibrillation (HCC) Allergies Active Allergy Reactions Criticality Noted Date Comments Tello Inhibitors 05/08/2021 Hyperkalemia resulting in 2 hospitalizations Metformin Diarrhea 11/05/2022 Nadolol Itching 03/17/1999 Corgard itchy Nitroglycerin Other (Please comment) 02/09/2011 Headache that is only relieved with Morphine. Nsaids Nausea/vomiting 03/17/1999 relafen documented as of this encounter (statuses as of 01/28/2024) Medications Medication Sig Dispensed Refills Start Date [...] by mouth in the morning. 07/22/2020 Active [employer] Verio w/Device KitIndications:DM type 2 with diabetic peripheral neuropathy (HCC) Use to check blood sugars daily as directed E11.9 1 Kit 10/10/2020 Active [employer] In Vitro Strip (Glucose Blood)Indications: DM type [...] Oral Tablet (Coreg)Indications :Coronary artery disease involving [place] coronary artery of [place] heart without angina pectoris,HTN, goal below 140/90 [...] 3 mg by mouth daily. 30 Tablet 11 01/13/2024 Active Empagliflozin 10 MG Oral Tablet (Jardiance) Take 1 Tablet by mouth in the morning. 30 Tablet 11 01/13/2024 Active Dicyclomine HCl 10 MG Oral Capsule (Bentyl)Indication s:Abdominal cramps Take 1 capsule by mouth twice daily as needed for abdominal pain. 60 Capsule 5 01/26/2024 Active documented as of this encounter (statuses as of 01/28/2024) Active Problems Problem Noted Date Diagnosed Date [...] cancer 11/06/2019 Coronary artery disease invo lving [place] coronary artery of [place] heart without angina pectoris 07/04/2019 Senile osteoporosis 05/15/2019 Nontoxic uninodular goiter 11/17/2018 Gastroesophageal reflux disease without esophagi tis 11/01/2018 Rheumatoid arthritis 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 03/24/2018 Old [place] (myocardial infarction) 03/24/2018 Type [...] as of this encounter (statuses as of 01/28/2024) Resolved Problems Problem Noted Date Diagnosed Date [...] 36.9 with serious comorbidity 11/17/2018 Atherosclerosis of [place] co ronary artery of [place] heart without angina pectoris 11/17/201806/2021 Arteriosclerotic dementia [...] as of this encounter (statuses as of 01/28/2024) Immunizations Name Administration Dates Next Due COVID-19 mRNA, LNP-s, No Pre serve, 2-Dose Series (Pfizer) 10/30/2020,10/09/2020 DT - Diptheria/Tetanus (PEDS) 04/13/2002 Diptheria/Tetanus (Adult) 06/28/1989 PPD 01/19/2018 Pneumococcal Conjugate Vacc, 13 Valent (Prevnar) 03/15/2018 Pneumococcal Conjugate Vacci ne, 20-valent ([id number]) 10/26/2023 Pneumococcal Conjugate Vacci ne, 7 Valent 07/12/2014 Pneumococcal Polysaccharide PPV23 (Pneumovax) 01/12/2002,06/28/2001,03/25/1993 Seasonal Influenza Virus Vac cine, Unspecified Formulation 03/13/2021,04/11/2020,05/10/2019,03/15,04/10/2017,03/25/2016,03/26/2015 ,04/13/2002,06/17/2001,04/08/1998,11/0 06/1994 Seasonal Influenza, PF, 6 M & above, [...] as of this encounter Progress Notes * Kathy Morillo [facility] - 01/28/2024 11:46 AM EDT Agree with plan as documented. I was present and in the exam room for the entirety of the visit. Kathy Morillo [facility] Clinical Pharmacist 01/28/2024, 11:46 AM * Gisel Rushing [facility] - 01/28/2024 10:32 AM EDT Medication Therapy Disease Management - Anticoagulation Patient: Elmira Tavares | : 1945 Subjective Patient-Reported Symptoms: Patient Findings Negatives: Signs/symptoms of thrombosis, Signs/symptoms of bleeding, Change in health, Change in alcohol use, Change in activity, Upcoming invasive procedure, Missed doses, Extra doses, Change in medications, Change in diet/appetite, Bruising Objective Current Warfarin Dose As of 01/28/2024 Warfarin maintenance plan: 6 mg (4 mg x 1.5) every Mon, Wed, Fri; 4 mg (4 mg x 1) all other days INR Result As of 01/28/2024 INR goal: 1.8-2.2 INR used for dosin.4 (01/28/2024) Assessment & Plan Warfarin Plan As of 01/28/2024 Full warfarin instructions: 01/27: Hold; Otherwise 6 mg every Mon, Wed, Fri; 4 mg all other days Next INR check: 02/10/2024 Repeat PT/INR in 2 week(s) Weekly dose: not changed Additional Dosing Information: Description Patient is having a endoscopy on 02/23. Diagosis for coumadin therapy is AFib. Hx of TIA, however, pt has complication with bridging with Lovenox previously. CHADS-VASc score of 8. Patient will take their last dose of coumadin 02/18/24, then restart coumadin the evening of the procedure with 8 mg for2 days, then resume previous regimen. Repeat pt/inr 1 week after procedure. I spent a total of 10-19 minutes (exact time 19 mins) on the date of service in preparation, delivery, and documentation of the care provided to Elmira Tavares excluding any time spent in the performance of separately billed services or time spent by another provider/QHP. Gisel Ruhsing (Tina), PharmD, [facility] PGY1 Dampener Operator Medication Therapy Management Clinic 01/28/2024 11:41 AM documented in this encounter Miscellaneous Notes * Addendum Note - Kathy Morillo RPh - 01/28/2024 11:47 AM EDT Addended by: KATHY MORILLO on: 01/28/2024 11:47 AM Modules accepted: Level of Service documented in this encounter Plan of Treatment Upcoming Encounters Date Type Department Care Team (Latest Contact Info) Description 01/31/20 9:30 AM EDT Scheduled Telephone Care Coordination and Integration [address] [place] [address] Agustina Shafer, Community Health Resident In Diagnostic Radiology [address] [place] [address] 02/10/20 10:50 AM EDT Anticoagulation Pharmacy, [place] [address] [place] [facility] [address] [facility] [address] [place] [facility] [address] 02/18/20 11:00 AM EDT Anticoagulation Pharmacy, [place] [address] [place] [facility] [address] [facility] [address] [place] [facility] [address] 02/24/20 2:00 PM EDT Hospital Encounter ENDO [facility], Endoscopy Room [facility] [address] [place] [phone] Ni Dos Santos DO [address] [place] [address] 02/24/20 2:00 PM EDT - 02/24/20 2:30 PM EDT Surgery ENDO [facility], Endoscopy Room [facility] [address] [place] [phone] Ni Dos Santos DO [address] [place] [address] ESOPHAGOGASTRODUODENOSCOPY (EGD), FLEXIBLE, TRANSORAL, DIAGNOSTIC 04/04/20 9:00 AM EDT Office Visit Cardiology, [facility] [address] [place] [address] Corrine Quinn PA-C [address] [place] [address] 05/11/20 10:15 AM EST Office Visit Ophthalmology, [facility] [address] [place] [address] Doyle Heredia, DO [address] [facility] [place] [address] 05/18/20 10:40 AM EST Office Visit Family [facility], [place] [address] [place] [facility] [address] Derrek Sparks MD [address] [place] [address] 05/18/20 1:00 PM EST Office Visit Dermatology, [place] [address] [place] [facility] [address] Sully Kearns, PA-C [address] [place] [address] [place] [address] 06/12/20 10:30 AM EST Office Visit Rheumatology [place] [address] [facility] [place] [address] Carlitos Castro CRNP [address] [facility] [place] [address] 12/15/19 9:00 AM EDT Home Visit Care at Home [address] [place], [place] [id number] Delmy Boggs PA-C [address] [place], [place] [id number] Scheduled Procedures Name Priority Associated Diagnoses Date/Ti [...] 07/13/2024 01/11/2024, 08/2023, 06/01/2023, Additional history exists Depression Screening 12/13/2024 12/14/2023, 10/26/19 24 Diabetic [...] D LEVEL ONCE IN A LIFETIME-USE SMARTSET# [id number] Completed 12/03/2023, 06/22/2023, 06/01/2023, Additional history exists [...] this encounter Medical Devices Implanted Type Area Terrazzo Mechanic Helper Device Identifier Shelf Expiration Date Model / Serial / Lot Lead- 3 Implanted:Qt y: 1 on 01/26/[address] DO Lead Back 1295.04 07/28/2025 [id number] / / Description:Implanted at [facility] Neurostimula tor-01/26/2023 Implanted: by Rashaad Street DO (Quantity not on file) Neurostimulator 1295.04 10/25/2025 [id number] / [id number] / Description:Nikita Soto anted at [facility] Clip Quick 2.8mm 230cm - [id number] Implanted:Qt y: 4 on 11/14/2020 by Martina Cancino MD at ENDOSCOPY [facility] [employer] 06/27/2023 HX-202UR. A / / Lens 19.5 [id number] - [id number] - [id number] Implanted:Qt y: 1 on 03/26/2021 by Doyle Heredia DO at OR [facility] Right: Eye BRII : SURGICAL 10/29/2025 [id number] / [id number] 37 / Lens 19.5 [id number] - [id number] - [id number] Implanted:Qt y: 1 on 03/11/2022 by Doyle Heredia DO at OR [facility] Left: Eye BRII : SURGICAL 10/29/2025 [id number] / [id number] 29 / documented as of this encounter Procedures Procedure Name Priority Date/Time Associated Diagnosis Comments INR FINGERSTICK, POINT OF CARE STAT 01/28/2024 10:38 AM EDT Longstanding persistent atrial fibrillation (HCC) Anticoagulation management encounter documented in this encounter Results * INR FINGERSTICK, POINT OF CARE (01/28/2024 10:38 AM EDT) Fingerstick INR 2.4 INR 10:44 AM EDT LABORATORY [place] [id number] Blood 01/28/2024 10:3 8 AM EDT 01/28/2024 10:44 AM EDT Narrative RASHAD CASTLE 55- - 01/28/2024 10:44 AM EDT Therapeutic ranges for non-operative patients: Prophylaxsis/treatment of DVT: (Range:2.0-3.0) Treatment of pulmonary embolism:(Range:2.0-3.0) Prevention of systemic embolism from: -tissue heart valves -acute myocardial infarction -valvular heart disease -atrial fibrillation (Range: 2.0-3.0) Mechanical prosthetic valves: (Range: 2.5-3.5) Kathy Morillo [facility] LAB POINT OF CARE TEST DOCKED DEVICE UNSOLICITED RESULTS RASHAD CASTLE [address] [place] [address] documented in this encounter Visit Diagnoses Diagnosis Anticoagulation management encounter- Primary Encounter for therapeutic drug monitoring Longstanding persistent atrial fibrillation (HCC) Gastrointestinal hemorrhage with melena Anemia, unspecified type Abdominal pain, generalized documented in this encounter Advance Directives * Full Code (Latest Code Status on File) Date Activated Date Inactivated Comments 03/11/2022 7:56 AM 03/11/2022 2:41 PM Question Answer Comments Discussion of Advance Direct donnie occurred with: Not Discussed due to patient's condition Care Teams Health Clinician Relationship Specialty Start Date End Date Derrek Sparks MD [address] [place] [address] PCP - General Family Medicine 08/04/22 documented as of this encounter"
--- OUTSIDE RECORDS SUMMARY | 2024-02-07 19:33 | External Medical Summary ---
Author Name Unknown Address Unknown Organization : Laboratory Report Ordering Provider Test Date Status ILIA CHAVEZ 01/28/2024 10:38:03 Final Therapeutic ranges for non-o perative patients:
Prophylaxsis/treatment of DVT: (Range:2.0-3.0)
Treatment of pulmonary embolism:(Range:2.0-3.0)
Prevention of systemic embolism from:
-tissue heart valves
-acute myocardial infarction
-valvular heart disease
-atrial fibrillation
(Range: 2.0-3.0)
Mechanical prosthetic valves: (Range: 2.5-3.5) Observation Date Value Abnormality Reference (Units ) Status INR in Capillary blood by Coagulation assay 01/28/2024 10:38:03 2.4 (INR) Final Performing Location
--- OUTSIDE RECORDS SUMMARY | 2024-02-07 19:33 | External Medical Summary | Summary of Care ---
Author Name Unknown Organization [facility] Address [address] [place] [address] Phone [phone] Care Team Providers Care Sales Contractor Name Role Phone Derrek Sparks MD Primary Care Provider [phone]- [phone] Reason for Visit * Reason Onset Date Comments Advice 01/26/2024 Alternative to T rulance Encounter Details Date Type Department Care Team (Latest Contact Info) Description 01/26/2024 Rotary Shear Worker Helper Telephone Care Coordination and Integration [address], [place] [phone] Janet Petersen, ELISEO [address], [place] [phone] Advice (Alternative to Trulance) Allergies Active Allergy Reactions Criticality Noted Date Comments Tello Inhibitors 05/08/2021 Hyperkalemia resulting in 2 hospitalizations Metformin Diarrhea 11/05/2022 Nadolol Itching 03/17/1999 Corgard itchy Nitroglycerin Other (Please comment) 02/09/2011 Headache that is only relieved with Morphine. Nsaids Nausea/vomiting 03/17/1999 relafen documented as of this encounter (statuses as of 01/27/2024) Medications Medication Sig Dispensed Refills Start Date [...] by mouth in the morning. 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 30 Tablet 11 01/13/2024 Active documented as of this encounter (statuses as of 01/27/2024) Active Problems Problem Noted Date Diagnosed Date [...] cancer 11/06/2019 Coronary artery disease invo lving lumbee coronary artery of lumbee heart without angina pectoris 07/04/2019 Senile osteoporosis [...] as of this encounter (statuses as of 01/27/2024) Resolved Problems Problem Noted Date Diagnosed Date [...] 36.9 with serious comorbidity 11/17/2018 Atherosclerosis of lumbee co ronary artery of lumbee heart without angina pectoris 11/17/201806/2021 Arteriosclerotic dementia [...] as of this encounter (statuses as of 01/27/2024) Immunizations Name Administration Dates Next Due COVID-19 mRNA, LNP-s, No Pre serve, 2-Dose Series (Photofy) 10/30/2020,10/09/2020 DT - Diptheria/Tetanus (PEDS) 04/13/2002 PPD 01/19/2018 Pneumococcal Conjugate Vacc, 13 Valent (Prevnar) 03/15/2018 Pneumococcal Conjugate Vacci ne, 20-valent ([id number]) 10/26/2023 Pneumococcal Conjugate Vacci ne, 7 Valent [...] encounter Miscellaneous Notes * Telephone Encounter - Chelly Kessler MD - 01/27/2024 4:18 PM EDT The other same class medication is motegrity But I doubt this will be cheaper ( newer med) But at first, pt can check out with insurance too * Telephone Encounter - Janet Petersen RN - 01/26/2024 2:10 PM EDT Patient was recently prescribed Trulance as an alternative to Linzess due to the high cost of Linzess. Upon speaking with [facility] in [place], the Trulance is not on patient's formulary and it would be around $600 out of pocket for the medication, which patient cannot afford. The pharmacistmentioned a fax was sent to the PCP office on noting such. Is there an alternative to Linzess or Trulance that may be on patient's formulary? Thanks, Janet Petersen RN, BSN Float Rotary Shear Worker Helper [phone] documented in this encounter Plan of Treatment Upcoming Encounters Date Type Department Care Team (Latest Contact Info) Description 01/28/20 10:30 AM EDT [facility], [place] [address] [facility] [address] [facility] [address] [place] [address] [facility] [place] [address] 01/31/20 9:30 AM EDT Scheduled Telephone Care Coordination and Integration [address] [facility] [place], [place] [address] Agustina Shafer, Community [facility] Smart Energy Specialist [address] [facility] [place], [place] [address] 02/18/20 11:00 AM EDT [facility] [address] [facility] [facility], [place] [address] [place], [facility] [address] [facility] [facility], [place] [address] 02/24/20 2:00 PM EDT Hospital Encounter ENDO [facility], Endoscopy Room [facility] [address] [place] [address] Ni Dos Santos DO [address] [place] [address] 02/24/20 2:00 PM EDT - 02/24/20 2:30 PM EDT Surgery ENDO [facility], Endoscopy Room [facility] [address] [place] [address] Ni Dos Santos DO [address] [place] [address] ESOPHAGOGASTRODUODENOSCOPY (EGD), FLEXIBLE, TRANSORAL, DIAGNOSTIC 04/04/20 9:00 AM EDT Office Visit Cardiology, [facility] [address] [place] [address] Corrine Quinn PA-C [address] [place] [address] 05/11/20 24 10:15 AM EST Office Visit Ophthalmology, [facility] [address] [place] [address] Doyle Heredia, DO [address] [facility] [place] [address] 05/18/20 10:40 AM EST Office Visit Family [facility], [place] [address] [facility] [address] Derrek Sparks MD [address] [place] [address] 05/18/20 1:00 PM EST Office Visit Dermatology, [place] [address] [facility] [place] [address] Sully Kearns, PA-C [address] [place] [address] [place] [address] 06/12/20 10:30 AM EST Office Visit Rheumatology [place] 6[address] [facility] [place] [address] Carlitos Castro CRNP [address] [facility] [place] [address] 12/15/19 9:00 AM EDT Home Visit Care at Home [address], [place] [phone] Delmy Boggs PA-C [address], [place] [phone] Scheduled Procedures Name Priority Associated Diagnoses Date/Ti [...] D LEVEL ONCE IN A LIFETIME-USE SMARTSET# 43230 Completed 12/03/2023, 06/22/2023, 06/01/2023, Additional history exists [...] this encounter Medical Devices Implanted Type Area Feed Management Advisor Device Identifier Shelf Expiration Date Model / Serial / Lot Lead- 3 Implanted:Qt y: 1 on 01/26/[address] DO Lead Back [id number] 07/28/2025 [id number] / / Description:Implanted at [facility] Neurostimula tor-01/26/2023 Implanted: by Rashaad Street DO (Quantity not on file) Neurostimulator 1295.04 10/25/2025 [id number] / [id number] / Description:Nikita Soto anted at [facility] Clip Quick 2.8mm 230cm - [id number] Implanted:Qt y: 4 on 11/14/2020 by Martina Cancino MD at ENDOSCOPY [facility] [employer] 06/27/2023 HX-202UR. A / / Lens 19.5 [id number] - [id number] - [id number] Implanted:Qt y: 1 on 03/26/2021 by Doyle Heredia DO at OR [facility] Right: Eye BRII : SURGICAL 10/29/2025 [id number] / [id number] / Lens 19.5 [id number] - [id number] - [id number] Implanted:Qt y: 1 on 03/11/2022 by Doyle Heredia DO at OR [facility] Left: Eye BRII : SURGICAL 10/29/2025 [id number] / [id number] / documented as of this encounter Advance Directives * Full Code (Latest Code Status on File) Date Activated Date Inactivated Comments 03/11/2022 7:56 AM 03/11/2022 2:41 PM Question Answer Comments Discussion of Advance Direct donnie occurred with: Not Discussed due to patient's condition Care Teams Sales Contractor Relationship Specialty Start Date End Date Derrek Sparks MD [address] [facility] [place] [address] PCP - General Family Medicine 08/04/22 documented as of this encounter
--- OUTSIDE RECORDS SUMMARY | 2024-02-07 19:33 | External Medical Summary | Summary of Care ---
Author Name Unknown Organization [facility] Address [address] [place] [address] Phone [phone] Care Team Providers Care Bilingual Inside Sales Representative Name Role Phone Derrek Sparks MD Primary Care Provider +1- [phone] Reason for Visit * Reason Comments Dosage Adjustment In Person (Anticoag Cl inic) Encounter Details Date Type Department Care Team (Latest Contact Info) Description 01/20/2024 11:30 AM EDT Anticoagulation Pharmacy, [address] [address] [facility] [address] [place] [address] Anticoagulation management encounter*; Longstanding persistent atrial fibrillation (HCC) Allergies Active Allergy Reactions Criticality Noted Date Comments Tello Inhibitors 05/08/2021 Hyperkalemia resulting in 2 hospitalizations Metformin Diarrhea 11/05/2022 Nadolol Itching 03/17/1999 Corgard itchy Nitroglycerin Other (Please comment) 02/09/2011 Headache that is only relieved with Morphine. Nsaids Nausea/vomiting 03/17/1999 relafen documented as of this encounter (statuses as of 01/20/2024) Medications Medication Sig Dispensed Refills Start Date [...] by mouth in the morning. 07/22/2020 Active [employer] Verio w/Device KitIndications:DM type 2 with diabetic peripheral neuropathy (HCC) Use to check blood sugars daily as directed E11.9 1 Kit 10/10/2020 Active [employer] In Vitro Strip (Glucose Blood)Indications: DM type [...] as of this encounter (statuses as of 01/20/2024) Active Problems Problem Noted Date Diagnosed Date [...] hands with negative rheumatoid factor 03/24/2018 Old NV (myocardial infarction) 03/24/2018 Type [...] as of this encounter (statuses as of 01/20/2024) Resolved Problems Problem Noted Date Diagnosed Date [...] as of this encounter (statuses as of 01/20/2024) Immunizations Name Administration Dates Next Due COVID-19 mRNA, LNP-s, No Pre serve, 2-Dose Series (Pfizer) 10/30/2020,10/09/2020 DT - Diptheria/Tetanus (PEDS) 04/13/2002 PPD 01/19/2018 Pneumococcal Conjugate Vacc, 13 Valent (Prevnar) 03/15/2018 Pneumococcal Conjugate Vacci ne, 20-valent ([id number]) 10/26/2023 Pneumococcal Conjugate Vacci ne, 7 Valent [...] this encounter Progress Notes * Alanna Osborn [facility] - 01/20/2024 12:20 PM EDT Agree with plan as documented. Alanna Osborn [facility] Clinical Pharmacist 01/20/2024, 12:20 PM * Gisel Rushing, Pharmacy Ap Processor - 01/20/2024 11:16 AM EDT Images from the original note were not included. Medication Therapy Disease Management - Anticoagulation Patient: Elmira Tavares | : 1945 Subjective Patient-Reported Symptoms: Patient Findings Positives: Upcoming invasive procedure (Endoscopy scheduled on 02/23) Negatives: Signs/symptoms of thrombosis, Signs/symptoms of bleeding, Change in health, Change in alcohol use, Change in activity, Missed doses, Extra doses, Change in medications, Change in diet/appetite, Bruising Objective Current Warfarin Dose As of 01/20/2024 Warfarin maintenance plan: 6 mg (4 mg x 1.5) every Mon, Fri; 4 mg (4 mg x 1) all other days INR Result As of 01/20/2024 INR goal: 1.8-2.2 INR used for dosin.3 (01/20/2024) Assessment & Plan Warfarin Plan As of 01/20/2024 Full warfarin instructions: 01/19: 6 mg; Otherwise 6 mg every Mon, Wed, Fri; 4 mg all other days Next INR check: 01/27/2024 Repeat PT/INR in 1 week(s) Weekly dose: increased: Increased today's dose to 6 mg; increased Wednesday's dose to 6 mg, other days remain the same dosing. Additional Dosing Information: Description Patient is having [...] regimen. Repeat pt/inr 1 week after procedure. Gisel Rushing, MalloryD, [facility] PGY1 Assembler Piano Medication Therapy [facility] 01/20/2024 12:00 PM documented in this encounter Plan of Treatment Upcoming Encounters Date Type Department Care Team (Latest Contact Info) Description 01/28/20 10:30 AM EDT Anticoagulation Pharmacy, [address] [address] [facility] [place] [address] 01/31/20 9:30 AM EDT Scheduled Telephone Care Coordination and Integration [address] [place] [address] Agustina Shafer [facility] Last Putter Away [address] [place] [address] 02/18/20 11:00 AM EDT Anticoagulation Pharmacy, [address] [address] [facility] [address] [place] [address] 02/24/20 2:00 PM EDT Hospital Encounter ENDO [facility], Endoscopy Room [facility] [address] [place] [address] [place] [address] Leonora Liu MD [address] [place] [address] 02/24/20 24 2:00 PM EDT - 02/24/20 24 2:30 PM EDT Surgery ENDO [facility], Endoscopy Room [facility] [address] [place] [place] [phone] Leonora iLu MD [address] [place] [address] ESOPHAGOGASTRODUODENOSCOPY (EGD), FLEXIBLE, TRANSORAL, DIAGNOSTIC 04/04/20 24 9:00 AM EDT Office Visit [facility], [facility] [place] [address] Corrine Quinn PA-C [address] [place] [address] 05/11/20 24 10:15 AM EST Office Visit Ophthalmology, [facility] [place] [address] Doyle Heredia DO [address] [place] [address] 05/18/20 24 10:40 AM EST Office Visit [place] [address] [facility] [phone] Derrek Sparks MD [address] [facility] [address] 05/18/20 24 1:00 PM EST Office Visit [place] [address] [address] [facility], [place] [address] Sully Kearns PA-C [address] [place] [address] [place] [address] 06/12/20 24 10:30 AM EST Office Visit Rheumatology [place] [address] [facility] [place] [address] Carlitos Castro CRNP [address] [facility] [place] [address] 12/15/19 9:00 AM EDT Home Visit Care at Home [address] [facility] [place], [place] [phone] Delmy Boggs PA-C [address] [place] [address] Scheduled Procedures Name Priority Associated Diagnoses Date/Ti [...] 01/11/2024, 050 08/2023, 06/01/2023, Additional history exists Depression Screening [...] D LEVEL ONCE IN A LIFETIME-USE SMARTSET# 61196 Completed 12/03/2023, 06/22/2023, 06/01/2023, Additional history exists [...] this encounter Medical Devices Implanted Type Area Vice President Regulatory Device Identifier Shelf Expiration Date Model / Serial / Lot Lead- 3 Implanted:Qt y: 1 on 01/26/[address] DO Lead Back [id number] 07/28/2025 3005-50B / / Description:Implanted at [facility] Neurostimula tor-01/26/2023 Implanted: by Rashaad Street DO (Quantity not on file) Neurostimulator 1295.04 10/25/2025 [id number] / [id number] / Description:Nikita Cole Impl anted at [facility] Clip Quick 2.8mm 230cm - [id number] Implanted:Qt y: 4 on 11/14/2020 by Martina Cancino MD at ENDOSCOPY [facility] [employer] 06/27/2023 HX-202UR. A / / Lens 19.5 [id number] - [id number] - [id number] Implanted:Qt y: 1 on 03/26/2021 by Doyle Heredia, DO at OR [facility] Right: Eye BRII : SURGICAL 10/29/2025 [id number] / [id number] / Lens 19.5 [id number] - [id number] - [id number] Implanted:Qt y: 1 on 03/11/2022 by Doyle Heredia, at OR [facility] Left: Eye BRII : SURGICAL 10/29/2025 [id number] / [id number] / documented as of this encounter Procedures Procedure Name Priority Date/Time Associated Diagnosis Comments INR FINGERSTICK, POINT OF CARE LISANDRA 01/20/2024 11:35 AM EDT documented in this encounter Results * INR FINGERSTICK, POINT OF CARE (01/20/2024 11:35 AM EDT) Fingerstick INR 1.3 INR 11:44 AM EDT [facility]- Blood 01/20/2024 11:3 5 AM EDT 01/20/2024 11:44 AM EDT Narrative [facility]- - 01/20/2024 11:44 AM EDT Therapeutic ranges for non-operative patients: Prophylaxsis/treatment of DVT: (Range:2.0-3.0) Treatment of pulmonary embolism:(Range:2.0-3.0) Prevention of systemic embolism from: -tissue heart valves -acute myocardial infarction -valvular heart disease -atrial fibrillation (Range: 2.0-3.0) Mechanical prosthetic valves: (Range: 2.5-3.5) [facility] [place] [facility] POINT OF CARE TEST DOCKED DEVICE UNSOLICITED RESULTS [facility] [address] [place] [address] documented in this encounter Visit Diagnoses Diagnosis [...] Discussed due to patient's condition Care Teams Bilingual Inside Sales Representative Relationship Specialty Start Date End Date Derrek Sparks MD [address] [place] [address] PCP - General Family Medicine 08/04/22 documented as of this encounter"
--- OUTSIDE RECORDS SUMMARY | 2024-02-07 19:33 | External Medical Summary | Summary of Care ---
Author Name Unknown Organization [facility] Address [address] [place] [address] Phone [phone] Care Team Providers Care Third Hand Name Role Phone Fabio Clarke MD Primary Care Provider +1- [phone] Reason for Visit * Reason Comments eRx-Medication Refill Encounter Details Date Type Department Care Team (Late st Contact Info) Description 01/25/2024 Refill [facility] [address] [place] [address] Fabio Clarke MD [address] [place], [place] [phone] Abdominal cramps Allergies Active Allergy Reactions Criticality Noted Date Comments Tello Inhibitors 05/08/2021 Hyperkalemia resulting in 2 hospitalizations Metformin Diarrhea 11/05/2022 Nadolol Itching 03/17/1999 Corgard itchy Nitroglycerin Other (Please comment) 02/09/2011 Headache that is only relieved with Morphine. Nsaids Nausea/vomiting 03/17/1999 relafen documented as of this encounter (statuses as of 01/26/2024) Medications Medication Sig Dispensed Refills Start Date [...] by mouth in the morning. 1 Active Days of Wonder Verio w/Device KitIndications:DM type 2 with diabetic peripheral neuropathy (HCC) Use to check blood sugars daily as directed E11.9 1 Kit 1 Active Days of Wonder Verio In Vitro Strip (Glucose Blood)Indications :DM [...] Oral Tablet (Coreg)Indication s:Coronary artery disease involving mohegan coronary artery of mohegan heart without angina pectoris,HTN, goal below 140/90 [...] before bedtime. 60 Capsule 1 4 Active Trulance 3 MG Oral Tablet (Plecanatide) Take 3 mg by mouth daily. 30 Tablet 11 4 Active Empagliflozin 10 MG Oral Tablet (Jardiance) Take 1 Tablet by mouth in the morning. 30 Tablet 11 4 Active Dicyclomine HCl 10 MG Oral Capsule (Bentyl)Indicatio ns:Abdominal cramps Take 1 capsule by mouth twice daily as needed for abdominal pain. 60 Capsule 5 4 Active Dicyclomine HCl 10 MG Oral Capsule (Bentyl)Indicatio ns:Abdominal cramps Take 1 capsule by mouth twice per day as needed for abdominal pain. 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 03/24/2018 Old MS (myocardial infarction) 03/24/2018 Type [...] as of this encounter (statuses as of 01/26/2024) Resolved Problems Problem Noted Date Diagnosed Date [...] 36.9 with serious comorbidity 11/17/2018 Atherosclerosis of mohegan co ronary artery of mohegan heart without angina pectoris 11/17/201806/2021 Arteriosclerotic dementia [...] as of this encounter (statuses as of 01/26/2024) Immunizations Name Administration Dates Next Due COVID-19 mRNA, LNP-s, No Pre serve, 2-Dose Series (Message Systems) 10/30/2020,10/09/2020 DT - Diptheria/Tetanus (PEDS) 04/13/2002 PPD 01/19/2018 Pneumococcal Conjugate Vacc, 13 Valent (Prevnar) 03/15/2018 Pneumococcal Conjugate Vacci ne, 20-valent ([id number]) 10/26/2023 Pneumococcal Conjugate Vacci ne, 7 Valent [...] Telephone Encounter - Fabio Clarke MD - 01/26/2024 4:38 PM EDTSigned Prescriptions: Disp Refills Dicyclomine HCl 10 MG Oral Capsule (Bentyl)60 Cap*5 Sig: Take 1 capsule by mouth twice daily as needed for abdominal pain.Authorizing Provider: FABIO CLARKE-- * Telephone Encounter - Chandrika Edgar LPN - 01/26/2024 9:45 AM EDTPending Prescriptions: Disp Refills Dicyclomine HCl 10 MG Oral Capsule [Pharma*60 Cap*0 Sig: Take 1 capsule by mouth twice daily as needed for abdominal pain. * Telephone Encounter - Bela Field - 01/25/2024 7:58 PM EDTPending Prescriptions: Disp Refills Dicyclomine HCl 10 MG Oral Capsule [Pharma*60 Cap*0 Sig: Take 1capsule by mouth twice daily as needed for abdominal pain. documented in this encounter Plan of Treatment Upcoming Encounters Date Type Department Care Team (Latest Contact Info) Description 01/28/20 10:30 AM EDT Anticoagulation Pharmacy, [place] [address] [place] [facility] [place] [address] [facility] [place] [facility] [address] [place] [address] 01/31/20 9:30 AM EDT Scheduled Telephone Care Coordination and Integration [address] [place] [address] Agustina Shafer, [facility] Health Pens And Pencils Repairer [address] [place] [address] 02/18/20 11:00 AM EDT Anticoagulation Pharmacy, [place] [address] [place] [address] [facility] [address] [place] [address] 02/24/20 2:00 PM EDT Hospital Encounter ENDO [facility], Endoscopy Room [facility] [address] [place] [address] [place] [address] Ni Dos Santos DO [address] [place] [address] 02/24/20 24 2:00 PM EDT - 02/24/20 24 2:30 PM EDT Surgery ENDO [facility], Endoscopy Room [facility] [address] [place] [address] Ni Dos Santos, DO [address] [place] [address] ESOPHAGOGASTRODUODENOSCOPY (EGD), FLEXIBLE, TRANSORAL, DIAGNOSTIC 04/04/20 24 9:00 AM EDT Office Visit Card[facility], [facility] [place] [address] Corrine Quinn, PANehalC [address] [facility] [place] [address] 05/11/20 24 10:15 AM EST Office Visit Ophthalmology, [facility] [address] [facility] [place] [address] Doyle Heredia, DO [address] [facility] [place] [address] 05/18/20 24 10:40 AM EST Office Visit [place] [address] [facility] [phone] Fabio Clarke MD [address] [facility], [place] [address] 05/18/20 24 1:00 PM EST Office Visit Dermatology, [place] [address] [facility], [place] [address] Sully Kearns, PANehalC [address] [place] [address] [place] [address] 06/12/20 24 10:30 AM EST Office Visit Rheumatology [facility] [address] [facility] [place], [place] [address] Carlitos Castro CRNP [address] [facility] [place] [address] 12/15/19 9:00 AM EDT Home Visit Care at Home [address] [place], [place] [phone] Delmy Boggs PA-C [address] [place], [place] [phone] Scheduled Procedures Name Priority Associated Diagnoses Date/Ti [...] 03/15/2028 03/15/2018, 03/15/2018, 01/25/2017, Additional history exists Hepatitis C Screening Completed 06/27/2018 RETIRED - COLONOSCOPY-ANNUAL AGES 18-100 Discontinued 08/18/2022, 08/18/2022, 11/14/2020, Additional history exists Pneumococcal Vaccine: 65+ Years Completed 10/26/2023, 03/15/2018, 01/12/2002, Additional history exists VITAMIN D LEVEL ONCE IN A LIFETIME-USE SMARTSET# 78794 Completed 12/03/2023, 06/22/2023, 06/01/2023, Additional history exists [...] this encounter Medical Devices Implanted Type Area Grinding And Polishing Laborer Device Identifier Shelf Expiration Date Model / Serial / Lot Lead- 3 Implanted:Qt y: 1 on 01/26/[address] DO Lead Back 1295.04 07/28/2025 [id number] / / Description:Implanted at [facility] Neurostimula tor-01/26/2023 Implanted: by Rashaad Street DO (Quantity not on file) Neurostimulator 1295.04 10/25/2025 [id number] / [id number] / Description:Nikita Soto anted at [facility] Clip Quick 2.8mm 230cm - [id number] Implanted:Qt y: 4 on 11/14/2020 by Martina Cancino MD at ENDOSCOPY [facility] [employer] 06/27/2023 HX-202UR. A / / Lens 19.5 [id number] - [id number] - [id number] Implanted:Qt y: 1 on 03/26/2021 by Doyle Heredia DO at OR [facility] Right: Eye BRII : SURGICAL 10/29/2025 [id number] / [id number] 37 / Lens 19.5 [id number] - [id number] - [id number] Implanted:Qt y: 1 on 03/11/2022 by Doyle Heredia DO at OR [facility] Left: Eye BRII : SURGICAL 10/29/2025 [id number] / [id number] 29 / documented as of this encounter Visit Diagnoses Diagnosis Abdominal cramps Abdominal pain, unspecified site Gastrointestinal hemorrhage with melena Anemia, unspecified type Abdominal pain, generalized documented in this encounter Advance Directives * Full Code (Latest Code Status on File) Date Activated Date Inactivated Comments 03/11/2022 7:56 AM 03/11/2022 2:41 PM Question Answer Comments Discussion of Advance Direct donnie occurred with: Not Discussed due to patient's condition Care Teams Third Hand Relationship Specialty Start Date End Date Fabio Clarke MD [address] [place] [facility] [place] [address] PCP - General Family Medicine 08/04/22 documented as of this encounter
--- OUTSIDE RECORDS SUMMARY | 2024-02-07 19:33 | External Medical Summary | Summary of Care ---
Author Name Unknown Organization [facility] Address [address] [place] [address] Phone [phone] Care Team Providers Care Clinical Nurse Reviewer Name Role Phone Derrek Sparks MD Primary Care Provider +1- [phone] Reason for Visit * Reason Comments Dosage Adjustment In Person (Anticoag Cl inic) Encounter Details Date Type Department Care Team (Latest Contact Info) Description 01/28/2024 10:30 AM EDT Anticoagulation Pharmacy, [address] [address] [facility] [address] [place] [address] Anticoagulation management encounter*; Longstanding persistent atrial fibrillation [...] by mouth in the morning. 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 pectoris,HTN, goal below 140/90 [...] cancer 11/06/2019 Coronary artery disease invo lving tribal coronary artery of tribal heart without angina pectoris 07/04/2019 Senile osteoporosis 05/15/2019 Nontoxic uninodular goiter 11/17/2018 Gastroesophageal reflux disease without esophagi tis 11/01/2018 Rheumatoid arthritis 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 03/24/2018 Old [place] (myocardial infarction) 03/24/2018 Type [...] 36.9 with serious comorbidity 11/17/2018 Atherosclerosis of tribal co ronary artery of tribal heart without angina pectoris 11/17/201806/2021 Arteriosclerotic dementia [...] (Prevnar) 03/15/2018 Pneumococcal Conjugate Vacci ne, 20-valent ([id number]) 10/26/2023 Pneumococcal Conjugate Vacci ne, 7 Valent [...] this encounter Progress Notes * Kathy Morillo [facility] - 01/28/2024 11:46 AM EDT Agree with plan as documented. I was present and in the exam room for the entirety of the visit. Kathy Morillo [facility] Clinical Pharmacist 01/28/2024, 11:46 AM * Gisel Rushing [facility] - 01/28/2024 10:32 AM EDT Medication [...] or time spent by another provider/QHP. Gisel Rushing (Tina), PharmD, [facility] PGY1 Design Technology Professor Medication Therapy Management [facility] 01/28/2024 11:41 AM [...] Telephone Care Coordination and Integration [address] [place] [address] Agustina Shafer, Community Health Gl Accountant [address] [place] [address] 02/10/20 10:50 AM EDT Anticoagulation Pharmacy, [place] [address] [place] [facility] [address] [facility] [address] [place] [facility] [address] 02/18/20 11:00 AM EDT Anticoagulation Pharmacy, [place] [address] [place] [facility] [address] [facility] [address] [place] [facility] [address] 02/24/20 2:00 PM EDT Hospital Encounter ENDO [facility], Endoscopy Room [facility] [address] [place] [address] Ni Dos Santos DO [address] [place] [address] 02/24/20 2:00 PM EDT - 02/24/20 2:30 PM EDT Surgery ENDO [facility], Endoscopy Room [facility] [address] [place] [address] Ni Dos Santos DO [address] [place] [address] ESOPHAGOGASTRODUODENOSCOPY (EGD), FLEXIBLE, TRANSORAL, DIAGNOSTIC 04/04/20 9:00 AM EDT Office Visit Cardiology, [facility] [address] [place] [address] Corrine Quinn PA-C [address] [place] [address] 05/11/20 10:15 AM EST Office Visit Ophthalmology, [facility] [address] [place] [address] Doyle Heredia, DO [address] [facility] [place] [address] 05/18/20 10:40 AM EST Office Visit Family [facility], [place] [address] [place] [facility] [address] Derrek Sparks MD [address] [place] [address] 05/18/20 1:00 PM EST Office Visit Dermatology, [place] [address] [place] [facility] [address] Sully Kearns, PA-C [address] [place] [address] [place] [address] 06/12/20 10:30 AM EST Office Visit Rheumatology [place] [address] [facility] [place] [address] Carlitos Castro CRNP [address] [facility] [place] [address] 12/15/19 9:00 AM EDT Home Visit Care at Home [address] [place], [place] [phone] Delmy Boggs PA-C [address] [place], [place] [phone] Scheduled Procedures Name Priority Associated Diagnoses Date/Ti [...] D LEVEL ONCE IN A LIFETIME-USE SMARTSET# 53093 Completed 12/03/2023, 06/22/2023, 06/01/2023, Additional history exists [...] this encounter Medical Devices Implanted Type Area Claims Clerk Device Identifier Shelf Expiration Date Model / Serial / Lot Lead- 3 Implanted:Qt y: 1 on 01/26/[address] DO Lead Back 1295.04 07/28/2025 3005-50B / / Description:Implanted at [facility] Neurostimula tor-01/26/2023 Implanted: by Rashaad Street DO (Quantity not on file) Neurostimulator 1295.04 10/25/2025 [id number] / [id number] / Description:Nikita Soto anted at [facility] Clip Quick 2.8mm 230cm - [id number] Implanted:Qt y: 4 on 11/14/2020 by Martina Cancino MD at ENDOSCOPY [facility] [employer] 06/27/2023 HX-202UR. A / / Lens 19.5 [id number] - [id number] - [id number] Implanted:Qt y: 1 on 03/26/2021 by Doyle Heredia DO at OR [facility] Right: Eye BRII : SURGICAL 10/29/2025 [id number] / [id number] 37 / Lens 19.5 [id number] - [id number] - [id number] Implanted:Qt y: 1 on 03/11/2022 by Doyle Heredia DO at OR [facility] Left: Eye BRII : SURGICAL 10/29/2025 [id number] / [id number] 29 / documented as of this encounter Procedures Procedure Name Priority Date/Time Associated Diagnosis Comments INR FINGERSTICK, POINT OF CARE STAT 01/28/2024 10:38 AM EDT Longstanding persistent atrial fibrillation (HCC) Anticoagulation management encounter documented in this encounter Results * INR FINGERSTICK, POINT OF CARE (01/28/2024 10:38 AM EDT) Fingerstick INR 2.4 INR 10:44 AM EDT [place]ORATORY [place] [id number] Blood 01/28/2024 10:3 8 AM EDT 01/28/2024 10:44 AM EDT Narrative RASHAD CASTLE 55- - 01/28/2024 10:44 AM EDT Therapeutic ranges for non-operative patients: Prophylaxsis/treatment of DVT: (Range:2.0-3.0) Treatment of pulmonary embolism:(Range:2.0-3.0) Prevention of systemic embolism from: -tissue heart valves -acute myocardial infarction -valvular heart disease -atrial fibrillation (Range: 2.0-3.0) Mechanical prosthetic valves: (Range: 2.5-3.5) Kathy Morillo [facility] LAB POINT OF CARE TEST DOCKED DEVICE UNSOLICITED RESULTS RASHAD CASTLE [address] [place] [address] documented in this encounter Visit Diagnoses Diagnosis [...] Discussed due to patient's condition Care Teams Clinical Nurse Reviewer Relationship Specialty Start Date End Date Derrek Sparks MD [address] [place] [address] PCP - General Family Medicine 08/04/22 documented as of this encounter"
--- OUTSIDE RECORDS SUMMARY | 2024-02-07 19:33 | External Medical Summary | Summary of Care ---
Author Name Unknown Organization [facility] Address [address] [place] [address] Phone [phone] Care Team Providers Care Storm Sash Maker Name Role Phone Derrek Sparks MD Primary Care Provider +1- [phone] Encounter Details Date Type Department Care Team (Late st Contact Info) Description 01/24/2024 1:45 PM EDT Scheduled Telephone Care Coordination and Integration [address] [place], [place] [phone] Marycarmen Silva, Community Health Charge Auditor [address] [place], [place] [phone] Allergies Active Allergy Reactions Criticality Noted Date Comments Tello Inhibitors 05/08/2021 Hyperkalemia resulting in 2 hospitalizations Metformin Diarrhea 11/05/2022 Nadolol Itching 03/17/1999 Corgard itchy Nitroglycerin Other (Please comment) 02/09/2011 Headache that is only relieved with Morphine. Nsaids Nausea/vomiting 03/17/1999 relafen documented as of this encounter (statuses as of 01/24/2024) Medications Medication Sig Dispensed Refills Start Date [...] by mouth in the morning. 07/22/2020 Active TradiioTouch Verio w/Device KitIndications:DM type 2 with diabetic peripheral neuropathy (HCC) Use to check blood sugars daily as directed E11.9 1 Kit 10/10/2020 Active TradiioTouch Verio In Vitro Strip (Glucose Blood)Indications: DM [...] as of this encounter (statuses as of 01/24/2024) Active Problems Problem Noted Date Diagnosed Date [...] as of this encounter (statuses as of 01/24/2024) Resolved Problems Problem Noted Date Diagnosed Date [...] as of this encounter (statuses as of 01/24/2024) Immunizations Name Administration Dates Next Due COVID-19 mRNA, LNP-s, No Pre serve, 2-Dose Series (Pfizer) 10/30/2020,10/09/2020 DT - Diptheria/Tetanus (PEDS) 04/13/2002 PPD 01/19/2018 Pneumococcal Conjugate Vacc, 13 Valent (Prevnar) 03/15/2018 Pneumococcal Conjugate Vacci ne, 20-valent ([id number]) 10/26/2023 Pneumococcal Conjugate Vacci ne, 7 Valent [...] as of this encounter Progress Notes * Marycarmen Silva, Community Health Charge Auditor - 01/24/2024 2:21 PM EDT Telemedicine visit: No Community Health Charge Auditor (JORGITO) documentation: CHW placed 2nd PC to patient per CM's request Patient reported that she took Milk of [place]anes[place] last evening for constipation and at 6am this morning she had a bowel movement but it came on so fast she couldn't get to the bathroom in time. It wasso loose and black and tarry no blood thought. She is not going to take the Milk of [place] anymore. She is still going 4-5 days without having a BM. She is taking Elizabeth lax as well. Her BS today was 146 and she is still really weak. She is not dizzy. She has a spot on her chin that they feel is cancerous however they can't get her in until April. They put her on a cancellation list so hopefully she can get in sooner and get it taken care of. She keeps breaking open the scape at night whileshe sleeps. She is not sure what to do for it. No one has told her what to do to help it. She does put antibiotic ointment on it and that keeps it soft. CHW encouraged patient to reach out to CM withany concerns or questions. Marycarmen Silva- Community Health Worker 1 Support Services/[facility] [email or web address] documented in this encounter Plan of Treatment Upcoming Encounters Date Type Department Care Team (Latest Contact Info) Description 01/28/20 10:30 AM EDT Anticoagulation Pharmacy, [place] [address] [facility], [place] [address] [facility] [address] [place] [facility] [place] [address] 01/31/20 9:30 AM EDT Scheduled Telephone Care Coordination and Integration [address] [place] [facility] [place] [address] Agustina Shafer [facility] Health Charge Auditor [address] [place] [facility] [place] [place] [address] 02/18/20 11:00 AM EDT Anticoagulation Pharmacy, [place] [address] [facility], [place] [address] [facility] [address] [place] [facility] [place] [address] 02/24/20 2:00 PM EDT Hospital Encounter ENDO [facility], Endoscopy Room [facility] [address] [place] [phone] Ni Dos Santos, [address] [place] [address] 02/24/20 2:00 PM EDT - 02/24/20 2:30 PM EDT Surgery [facility]O [facility], Endoscopy Room [facility] [address] [place] [phone] Ni Dos Santos DO [address] [place] [address] ESOPHAGOGASTRODUODENOSCOPY (EGD), FLEXIBLE, TRANSORAL, DIAGNOSTIC 04/04/20 9:00 AM EDT Office Visit Cardiology, [facility] [address] [place] [address] Corrine Quinn PA-C [address] [place] [address] 05/11/20 24 10:15 AM EST Office Visit Ophthalmology, [facility] [address] [place] [address] Doyle Heredia, [address] [facility] [place] [address] 05/18/20 24 10:40 AM EST Office Visit Family Practice, [place] [address] [place] [address] Derrek Sparks MD [address] [place] [address] 05/18/20 24 1:00 PM EST Office Visit Dermatology, [place] [address] [place] [address] Sully Kearns PA-C [address] [place] [address] [place] [address] 06/12/20 24 10:30 AM EST Office Visit Rheumatology [address] [place] [address] Carlitos Castro CRNP [address] [place] [address] [place] [address] 12/15/19 25 9:00 AM EDT Home Visit Care at Home [address] [place], [place] [phone] Delmy Boggs PA-C [address] [facility] [place] [address] Scheduled Procedures Name Priority Associated Diagnoses [...] 04/21/2021, Additional history exists HbA1c 07/13/2024 01/11/2024, 05/0 08/2023, 06/01/2023, Additional history exists Depression Screening 12/13/2024 12/14/2023, 10/26/19 24 Diabetic Foot Exam 01/10/2025 01/11/2024, 0 07/07/2022, 10/22/2020, Additional history exists GFR 01/10/2025 01/11/2024, 2 08/2023, 08/05/2023, Additional history exists Colonoscopy 08/18/2025 08/18/2022, 07/30, 11/14/2020, Additional history exists DTaP,Tdap,and Td Vaccines (4 - Td or Tdap) 03/15/2028 03/15/2018, 03/15/2018, 01/25/2017, Additional history exists RETIRED - COLONOSCOPY-ANNUAL AGES 18-100 Discontinued 08/18/2022, 08/18/2022, 11/14/2020, Additional history exists Pneumococcal Vaccine: 65+ Years Completed 10/26/2023, 03/15/2018, 01/12/2002, Additional history exists VITAMIN D LEVEL ONCE IN A LIFETIME-USE SMARTSET# 59963 Completed 12/03/2023, 06/22/2023, 06/01/2023, Additional history exists [...] this encounter Medical Devices Implanted Type Area Datapower Developer Device Identifier Shelf Expiration Date Model / Serial / Lot Lead- 3 Implanted:Qt y: 1 on 01/26/[address] DO Lead Back 1295.04 07/28/2025 3005-50B / / Description:Implanted at [facility] Neurostimula tor-01/26/2023 Implanted: by Rashaad Street DO (Quantity not on file) Neurostimulator 1295.04 10/25/2025 [id number] / [id number] / Description:Juan Pablomingo Kelsey Impl anted at [facility] Clip Quick 2.8mm 230cm - [id number] Implanted:Qt y: 4 on 11/14/2020 by Martina Cancino MD at ENDOSCOPY [facility] [employer] 06/27/2023 HX-202UR. A / / Lens 19.5 [id number] - [id number] - [id number] Implanted:Qt y: 1 on 03/26/2021 by Doyle Heredia DO at OR [facility] Right: Eye BRII : SURGICAL 10/29/2025 [id number] / [id number] 37 / Lens 19.5 [id number] - [id number] - [id number] Implanted:Qt y: 1 on 03/11/2022 by Doyle Heredia DO at OR [facility] Left: Eye BRII : SURGICAL 10/29/2025 [id number] / [id number] 29 / documented as of this encounter Advance Directives * Full Code (Latest Code Status on File) Date Activated Date Inactivated Comments 03/11/2022 7:56 AM 03/11/2022 2:41 PM Question Answer Comments Discussion of Advance Direct donnie occurred with: Not Discussed due to patient's condition Care Teams Storm Sash Maker Relationship Specialty Start Date End Date Derrek Sparks MD [address] [place] [address] PCP - General Family Medicine 08/04/22 documented as of this encounter
--- OUTSIDE RECORDS SUMMARY | 2024-02-07 19:33 | External Medical Summary | Summary of Care ---
Author Name Unknown Organization [facility] Address [address] [place] [address] Phone [phone] Care Team Providers Care Vender Name Role Phone Derrek Sparks MD Primary Care Provider [phone]- [phone] Reason for Visit * Reason Onset Date Comments Appointment 01/12/2024 Upper endoscopy Encounter Details Date Type Department Care Team (Late st Contact Info) Description 01/12/2024 Telephone Gastroenterology, [place] [address] [place] [address] Bert, Stephanie No Resource [address] [place] [address] Appointment (Upper endoscopy ) Allergies Active Allergy Reactions Criticality Noted [...] by mouth in the morning. 1 Active [employer] Verio w/Device KitIndications:DM type 2 with diabetic peripheral neuropathy (HCC) Use to check blood sugars daily as directed E11.9 1 Kit 1 Active [employer] VerFreed Foods In Vitro Strip (Glucose Blood)Indications :DM type [...] Oral Tablet (Coreg)Indication s:Coronary artery disease involving cheesh-na coronary artery of cheesh-na heart without angina pectoris,HTN, goal below 140/90 [...] ONCE DAILY 90 Tablet 1 4 Active Dicyclomine HCl 10 MG Oral Capsule (Bentyl)Indicatio ns:Abdominal cramps Take 1 capsule by mouth twice per day as needed for abdominal pain. 60 Capsule 4 Active Pregabalin 25 MG Oral Capsule (Lyrica)Indicatio ns:Type 2 diabetes mellitus with diabetic neuropathy, without long-term current use of insulin (HCC) Take 1 Capsule by mouth in the morning and 1 Capsule before bedtime. 60 Capsule 1 4 Active linaCLOtide 145 MCG Oral Capsule (Linzess)Indicati ons:Chronic constipation,Irri table bowel syndrome with constipation,Abdo daphnie pain, generalized Take 1 Capsule by mouth daily before breakfast. 90 Capsule 3 4 01/13/20 24 Discontinued documented as of this encounter [...] cancer 11/06/2019 Coronary artery disease invo lving cheesh-na coronary artery of cheesh-na heart without angina pectoris 07/04/2019 Senile osteoporosis 05/15/2019 Nontoxic uninodular goiter 11/17/2018 Gastroesophageal reflux disease without esophagi tis 11/01/2018 Rheumatoid arthritis 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 03/24/2018 Old [place] (myocardial infarction) 03/24/2018 Type [...] 36.9 with serious comorbidity 11/17/2018 Atherosclerosis of cheesh-na co ronary artery of cheesh-na heart without angina pectoris 11/17/201806/2021 Arteriosclerotic dementia [...] (Prevnar) 03/15/2018 Pneumococcal Conjugate Vacci ne, 20-valent ([id number]) 10/26/2023 Pneumococcal Conjugate Vacci ne, 7 Valent [...] encounter Miscellaneous Notes * Telephone Encounter - Merissa Reeder OSA - 01/20/2024 3:22 PM EDT Scheduled 02/23 * Telephone Encounter - Deedee Dupont OSA - 01/12/2024 10:08 AM EDT Lmm for pt. * Telephone Encounter - Shira Leo OSA - 01/12/2024 7:33 AM EDT Order UPPER ENDOSCOPY GI REFERRAL OP [[id number]] (Order [id number]) Elmira Tavares 01/11/2024 11:20 AM Office Visit Description: 78 year old female Provider: Chelly Kessler MD Department: [facility] Order Information Date and Time Department Ordering/Authorizing 01/11/2024 11:46 AM Chelly Bentley MD Order Providers Authorizing Provider Encounter Provider ([id number]) Chelly Kessler MD ([id number]) Chelly Kessler MD Priority and Order Details Priority Class Within 10 days (routine) Referral Quantity Ordering Quantity 1 Collection Information Visit Disposition Check-out Note EGD schedule Comments Upper Endoscopy ASGE Guidelines Melena ADDITIONAL INFORMATION 1. Is the patient on Coumadin? Yes--Coumadin can be stopped for 5 days 2. Is the patient on Pradaxa? No Order Questions Question Answer Referral Priority Within 10 days (routine) Where should this appointment be scheduled? [facility] Referral (Authorized) ID: [id number] Created on: 01/11/2024 Referred by Referred to Chelly Kessler MD Gastroenterology Reason: Ancillary Services Required Priority: Within 10 days (routine) Type: Ancillary Services Visits Requested: 999 Decision Date: 01/11/2024 Start Date: 01/11/2024 Related Appointments None Associated Diagnoses Abdominal pain, generalized [R10.84] - Primary Anemia, unspecified type [D64.9] Gastrointestinal hemorrhage with melena [K92.1] Encounter View Encounter Reprint Requisition UPPER ENDOSCOPY GI REFERRAL OP (Order #[id number]) on 01/11/24 Detailed Information Priority and Order Details Reference Links Neighborly Acct Guarantor Acct Type [id number] ELMIRA TAVARES Personal/Family [1] Service Location Name Address Phone [facility] [address] [facility] [phone] Currently Active Insurance Payor Plan Subscriber Member ID GHP GOLD GHJordan GOLD PREFERRED ENHANCED MP-DD ELMIRA TAVARES [id number] documented in this encounter Plan of Treatment Upcoming Encounters Date Type Department Care Team (Latest Contact Info) Description 01/28/20 10:30 AM EDT Anticoagulation Pharmacy, [place] [address] [place] [address] [place] [facility] [address] [place] [address] 01/31/20 9:30 AM EDT Scheduled Telephone Care Coordination and Integration [address], [place] [phone] Agustina Shafer [facility] Health Paint Line Operator [address] [place] [address] 02/18/20 24 11:00 AM EDT Anticoagulation [facility] [address] [facility], [place] [address] [facility] [address] [place] [facility] [place] [address] 02/24/20 2:00 PM EDT Hospital Encounter ENDO [facility], Endoscopy Room [facility] [address] [place] [address] Leonora Liu MD [address] [place] [address] 02/24/20 2:00 PM EDT - 02/24/20 2:30 PM EDT Surgery ENDO [facility], Endoscopy Room [facility] [address] [place] [address] Leonora Liu MD [address] [place] [address] ESOPHAGOGASTRODUODENOSCOPY (EGD), FLEXIBLE, TRANSORAL, DIAGNOSTIC 04/04/20 9:00 AM EDT Office Visit Cardiology, [facility] [address] [place] [address] Corrine Quinn PA-C [address] [place] [address] 05/11/20 24 10:15 AM EST Office Visit Ophthalmology, [facility] [address] [place] [address] Doyle Heredia, DO [address] [place] [address] 05/18/20 24 10:40 AM EST Office Visit Family Practice, [place] [address] [facility] [place] [phone] Derrek Sparks MD [address] [place] [address] 05/18/20 24 1:00 PM EST Office Visit Dermatology, [place] [address] [place] [facility] [place] [address] Sully Kearns, PAAmita [address] [place] [address] [place] [address] 06/12/20 24 10:30 AM EST Office Visit Rheumatology [place] [address] [facility] [place] [address] Carlitos Castro CRNP [address] [facility] [place] [address] 12/15/19 9:00 AM EDT Home Visit Care at Home [address], [place] [phone] Delmy Boggs PA-C [address], [place] [phone] Scheduled Procedures Name Priority Associated Diagnoses Date/Ti [...] D LEVEL ONCE IN A LIFETIME-USE SMARTSET# [id number] Completed 12/03/2023, 06/22/2023, 06/01/2023, Additional history exists [...] this encounter Medical Devices Implanted Type Area Academic Specialist Device Identifier Shelf Expiration Date Model / Serial / Lot Lead- 3 Implanted:Qt y: 1 on 01/26/[address] DO Lead Back 1295.04 07/28/2025 [id number] / / Description:Implanted at [facility] Neurostimula tor-01/26/2023 Implanted: by Rashaad Street DO (Quantity not on file) Neurostimulator 1295.04 10/25/2025 [id number] / [id number] / Description:Nikita Soto anted at [facility] Clip Quick 2.8mm 230cm - [id number] Implanted:Qt y: 4 on 11/14/2020 by Martina Cancino MD at ENDOSCOPY [facility] [employer] 06/27/2023 HX-202UR. A / / Lens 19.5 [id number] - [id number] - [id number] Implanted:Qt y: 1 on 03/26/2021 by Doyle Heredia DO at OR [facility] Right: Eye BRII : SURGICAL 10/29/2025 [id number] / [id number] / Lens 19.5 [id number] - [id number] - [id number] Implanted:Qt y: 1 on 03/11/2022 by Doyle Heredia DO at OR [facility] Left: Eye BRII : SURGICAL 10/29/2025 [id number] / [id number] / documented as of this encounter Advance Directives * Full Code (Latest Code Status on File) Date Activated Date Inactivated Comments 03/11/2022 7:56 AM 03/11/2022 2:41 PM Question Answer Comments Discussion of Advance Direct donnie occurred with: Not Discussed due to patient's condition Care Teams Vender Relationship Specialty Start Date End Date Derrek Sparks MD [address] [facility] [place] [id number] PCP - General Family Medicine 08/04/22 documented as of this encounter
--- OUTSIDE RECORDS SUMMARY | 2024-02-07 19:33 | External Medical Summary | Summary of Care ---
Author Name Unknown Organization [facility] Address [address] [place] [address] Phone [phone] Care Team Providers Care Painter Touch Up Name Role Phone Derrek Sparks MD Primary Care Provider [phone]- [phone] Encounter Details Date Type Department Care Team (Late st Contact Info) Description 01/31/2024 9:30 AM EDT Scheduled Telephone Care Coordination and Integration [address], [place] [phone] Agustina Shafer [facility] Nuclear Waste Management Engineer [address], [place] [phone] Allergies Active Allergy Reactions Criticality Noted Date Comments Tello Inhibitors 05/08/2021 Hyperkalemia resulting in 2 hospitalizations Metformin Diarrhea 11/05/2022 Nadolol Itching 03/17/1999 Corgard itchy Nitroglycerin Other (Please comment) 02/09/2011 Headache that is only relieved with Morphine. Nsaids Nausea/vomiting 03/17/1999 relafen documented as of this encounter (statuses as of 01/31/2024) Medications Medication Sig Dispensed Refills Start Date [...] by mouth in the morning. 07/22/2020 Active [employer] Verio w/Device KitIndications:DM type 2 with diabetic [...] Oral Tablet (Coreg)Indications :Coronary artery disease involving nome coronary artery of nome heart without angina pectoris,HTN, goal below 140/90 [...] and 1 Capsule before bedtime. 60 Capsule 12/29/2023 Active Trulance 3 MG Oral Tablet [...] as of this encounter (statuses as of 01/31/2024) Active Problems Problem Noted Date Diagnosed Date Mild mitral regurgitation 12/14/2023 Mild tricuspid regurgitation 12/14/2023 Mild aortic stenosis 12/14/2023 Thyroid cyst 12/14/2023 Cerebral atrophy 12/14/2023 Food insecurity 11/08/2023 Overview: Per [facility] Protocol Hypertensive heart disease w [...] cancer 11/06/2019 Coronary artery disease invo lving nome coronary artery of nome heart without angina pectoris 07/04/2019 Senile osteoporosis [...] as of this encounter (statuses as of 01/31/2024) Resolved Problems Problem Noted Date Diagnosed Date [...] 36.9 with serious comorbidity 11/17/2018 Atherosclerosis of nome co ronary artery of nome heart without angina pectoris 11/17/201806/2021 Arteriosclerotic dementia [...] as of this encounter (statuses as of 01/31/2024) Immunizations Name Administration Dates Next Due COVID-19 mRNA, LNP-s, No Pre serve, 2-Dose Series ([employer]) 10/30/2020,10/09/2020 DT - Diptheria/Tetanus (PEDS) 04/13/2002 PPD 01/19/2018 Pneumococcal Conjugate Vacc, 13 Valent (Prevnar) 03/15/2018 Pneumococcal Conjugate Vacci ne, 20-valent (Puastlu65) 10/26/2023 Pneumococcal Conjugate Vacci ne, 7 Valent [...] as of this encounter Progress Notes * Agustina Shafer [facility] Nuclear Waste Management Engineer - 01/31/2024 3:46 PM EDT Telemedicine visit: No [facility] Nuclear Waste Management Engineer (JORGITO) documentation: [facility] 2 week f/u call regarding application for rent/homeowner rebate. Pt stated that they don't know how to fill it out. [facility]W scheduled a time next week to do a return home visit and fill out the application for pt and her spouse. documented in this encounter Plan of Treatment Upcoming Encounters Date Type Department Care Team (Latest Contact Info) Description 02/07/20 9:30 AM EDT Home Visit Care Coordination and Integration [address] [place] [address] Agustina Shafer [facility] Nuclear Waste Management Engineer [address] [place] [address] 02/10/20 10:50 AM EDT [facility] [place] [address] [facility] [address] [place], [facility] [address] [place] [address] 02/18/20 11:00 AM EDT [facility]tico[facility], [place] [address] [facility] [address] [place] [facility] [address] [facility] [address] 02/24/20 24 2:00 PM EDT Hospital Encounter [facility], Endoscopy Room [facility] [address] [place], [place] [phone] Ni Dos Santos, DO [address] [place] [address] 02/24/20 24 2:00 PM EDT - 02/24/20 24 2:30 PM EDT Surgery ENDO [facility], Endoscopy Room [facility] [address] [place] [phone] Ni Dos Santos, [address] [place] [address] ESOPHAGOGASTRODUODENOSCOPY (EGD), FLEXIBLE, TRANSORAL, DIAGNOSTIC 04/04/20 24 9:00 AM EDT Office Visit Cardiology, [facility] [address] [facility] [place] [address] Corrine Quinn PA-C [facility] [place] [address] 05/11/20 24 10:15 AM EST Office Visit Ophthalmology, [facility] [address] [facility] [place] [address] Doyle Heredia, DO [address] [facility] [place] [address] 05/18/20 24 10:40 AM EST Office Visit [facility] [address] [facility], [place] [phone] Derrek Sparks MD [address] [facility], [place] [address] 05/18/20 24 1:00 PM EST [facility] [address] [facility], [place] [address] Sully Kearns, ANIA [address] [place] [address] [place] [address] 06/12/20 10:30 AM EST Office Visit Rheumatology [place] [phone] [facility] [place] [address] Carlitos Castro CRNP [address] [facility] [place] [address] 12/15/19 9:00 AM EDT Home Visit Care at Home [address] [place] [address] Delmy Boggs PA-C [address], [place] [phone] Scheduled Procedures Name Priority Associated Diagnoses Date/Ti [...] D LEVEL ONCE IN A LIFETIME-USE SMARTSET# [id number] Completed 12/03/2023, 06/22/2023, 06/01/2023, Additional history exists [...] this encounter Medical Devices Implanted Type Area Brew House Supervisor Device Identifier Shelf Expiration Date Model / Serial / Lot Lead- 3 Implanted:Qt y: 1 on 01/26/[address] DO Lead Back 1295.04 07/28/2025 [id number] / / Description:Implanted at [facility] Neurostimula tor-01/26/2023 Implanted: by Rashaad Street DO (Quantity not on file) Neurostimulator 1295.04 10/25/2025 [id number] / [id number] / Description:Nikita Soto anted at [facility] Clip Quick 2.8mm 230cm - [id number] Implanted:Qt y: 4 on 11/14/2020 by Martina Cancino MD at [facility]OSCOPY [facility] [employer] 06/27/2023 HX-202UR. A / / Lens 19.5 [id number] - [id number] - [id number] Implanted:Qt y: 1 on 03/26/2021 by Doyle Heredia DO at OR [facility] Right: Eye BRII : SURGICAL 10/29/2025 [id number] / [id number] 37 / Lens 19.5 [id number] - [id number] - [id number] Implanted:Qt y: 1 on 03/11/2022 by Doyle Heredia DO at OR [facility] Left: Eye BRII : SURGICAL 10/29/2025 [id number] / [id number] 29 / documented as of this encounter Advance Directives * Full Code (Latest Code Status on File) Date Activated Date Inactivated Comments 03/11/2022 7:56 AM 03/11/2022 2:41 PM Question Answer Comments Discussion of Advance Direct donnie occurred with: Not Discussed due to patient's condition Care Teams Painter Touch Up Relationship Specialty Start Date End Date Derrek Sparks MD [address] [place] [address] PCP - General Family Medicine 08/04/22 documented as of this encounter
--- OUTSIDE RECORDS SUMMARY | 2024-02-07 19:34 | External Medical Summary | Summary of Care ---
Author Name Unknown Organization [facility] Address [address] [place] [address] Phone [phone] Care Team Providers Care Specialty Food Products Supervisor Name Role Phone Derrek Sparks MD Primary Care Provider [phone]- [phone] Reason for Visit * Reason Onset Date Comments Advice 01/18/2024 Encounter Details Date Type Department Care Team (Late st Contact Info) Description 01/18/2024 Telephone [facility] [address] [place] [address] Marycarmen Hylton, RN [address] [place] [address] Advice Allergies Active Allergy Reactions Criticality Noted [...] by mouth in the morning. 07/22/2020 Active [employer] Verio w/Device KitIndications:DM type 2 with diabetic peripheral neuropathy (HCC) Use to check blood sugars daily as directed E11.9 1 Kit 10/10/2020 Active [employer] In Vitro Strip (Glucose Blood)Indications: DM type [...] Oral Tablet (Coreg)Indications :Coronary artery disease involving ute coronary artery of ute heart without angina pectoris,HTN, goal below [...] cancer 11/06/2019 Coronary artery disease invo lving ute coronary artery of ute heart without angina pectoris 07/04/2019 Senile osteoporosis 05/15/2019 Nontoxic uninodular goiter 11/17/2018 Gastroesophageal reflux disease without esophagi tis 11/01/2018 Rheumatoid arthritis 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 03/24/2018 Old MO (myocardial infarction) 03/24/2018 Type 2 diabetes mellitus [...] December of 2020 Historical Incontinence of feces 01/25/20214 Black tarry stools 01/25/2021 3 Overview: Noted in 2020 historical Postprocedural seroma of a m usculoskeletal structure following a musculoskeletal system procedure 02/21/2020 12/14/2023 Anxiety state 07/04/2019 09/20/2022 Diabetes mellitus with peripheral angiopathy 0 09/26/2021 Rheumatoid arthritis 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 07/04/2019 09/27/19 22 Old MO (myocardial infarction) 07/04/2019 09/26/2021 Major depression single epis ode, in partial remission 03/23/2019 08/26/2023 Severe obesity with body mas s index (BMI) of 36.0 to 36.9 with serious comorbidity 11/17/2018 Atherosclerosis of ute co ronary artery of ute heart without angina pectoris 11/17/201806/2021 Arteriosclerotic dementia wi th depressive features 11/17/2018 12/16/2018 Compression fracture of lumbar vertebra 11/10/2018 11/07/2021 Iron deficiency anemia 05/26/201812/16 Colorectal polyps 04/22/2018 09/12/2018 HTN, goal below 140/90 03/24/201812/13 Rheumatoid arthritis 12/28/2017 023 Overview: More specified Dx listed on PL Acute MO 11/19/2017 11/19/2017 Inflammatory polyarthropathy 11/19/2017 12/16/2018 Loosening [...] (Prevnar) 03/15/2018 Pneumococcal Conjugate Vacci ne, 20-valent ([id number]) 10/26/2023 Pneumococcal Conjugate Vacci ne, 7 Valent [...] encounter Miscellaneous Notes * Telephone Encounter - Alexandria Ruff LPN - 01/20/2024 10:31 AM EDT Called and spoke with patient and she is aware of information from Dr. Sparks and she states she has to come today for a finger prick so she is going to give the lab a urine while here. Patient is going to start all recommendations or bowel movements as well. * Telephone Encounter - Derrek Sparks MD - 01/19/2024 9:57 PM EDT Sounds like ov would be best if there is anything available in the clinic. If not, would suggest repeat UA and culture (ordered) for eval of urinary symptoms since they have returned after the abx was completed. If patient is only taking linzess for bowels, suggest that she start miralax - 1 capful daily and can also take milk of magnesia 1-2 tablespoons twice per day until result and then stop the milk of magnesia but continue daily linzess and miralax * Telephone Encounter - Marycarmen Hylton RN - 01/18/2024 3:35 PM EDT SITUATION: pt reporting having burning pain with urination and no BM for past 5 days. BACKGROUND: Pt was discharged from [facility] on 01/07 with hypotension, UTI and Melena ASSESSMENT: PT repots last BM was about 5 days ago. Is on Linzess daily. Was hospitalized for Melena with HG 9.7 on admission. Taking Pantoprazole 40mg BID. Has not had f/u with GI yet. Saw Dr. Kessler on 01/10. Reports she is having burning and pain still with urination. Finished antibiotic started while inpatient (cefdinir). Denies fevers or chills-but overall does not feel well. RECOMMENDATION: CM helping to cover [facility]. Please advise. Thank you Marycarmen Hylton RN Family Practice, [place] [address] [facility] [address] documented in this encounter Plan of Treatment Upcoming Encounters Date Type Department Care Team (Latest Contact Info) Description 01/20/20 11:30 AM EDT Anticoagulation Pharmacy, [place] [address] [place] [facility] [place] [address] [facility] [address] [place] [address] 01/31/20 9:30 AM EDT Scheduled Telephone Care Coordination and Integration [address] [place] [facility] [address] Agustina Shafer, Community Health Tenter Frame Operator [address] [place] [facility] [place] [address] 02/18/20 11:00 AM EDT Anticoagulation Pharmacy, [place] [address] [place] [facility] [place] [address] [facility] [address] [facility] [address] 02/24/20 24 2:00 PM EDT Hospital Encounter ENDO [facility], Endoscopy Room [facility] [address] [place], [place] [address] Leonora Liu MD [address] [place] [address] 02/24/20 24 2:00 PM EDT - 02/24/20 2:30 PM EDT Surgery ENDO [facility], Endoscopy Room [facility] [address] [place] [address] Leonora Liu MD [address] [place], [place] [address] ESOPHAGOGASTRODUODENOSCOPY (EGD), FLEXIBLE, TRANSORAL, DIAGNOSTIC 04/04/20 9:00 AM EDT Office Visit Cardiology, [facility] [address] [facility] [place] [address] Corrine Quinn PA-C [address] [facility] [place] [address] 05/11/20 24 10:15 AM EST Office Visit Ophthalmology, [facility] [address] [facility] [place], [place] [address] Doyle Heredia, DO [address] [place] [address] 05/18/20 24 10:40 AM EST Office Visit [facility] [address] [facility] [id number] Derrek Sparks MD [address] [facility] [address] 05/18/20 24 1:00 PM EST Office Visit Dermatology, [place] [address] [facility], [place] [address] Sully Kearns PA-C [address] [place] [address] [place] [address] 06/12/20 10:30 AM EST Office Visit Rheumatology [facility] [address] [facility] [place] [address] Carlitos Castro, BLAYNE [address] [facility] [place] [address] 12/15/19 9:00 AM EDT Home Visit Care at Home [address], [place] [phone] Delmy Boggs PA-C [address] [place], [place] [id number] Scheduled Orders Name Type Priority Associated Diagnoses Orde r Schedule URINALYSIS, REFLEX TO MICROSCOPIC Lab Routine Dysuria Expected: 01/19/2024, Expires: 01/18/2025 CULTURE, URINE, QUANTITATIVE Lab Routine Dysuria Expected: 01/19/2024, Expires: 01/18/2025 Scheduled Procedures Name Priority Associated Diagnoses Date/Ti [...] D LEVEL ONCE IN A LIFETIME-USE SMARTSET# 74717 Completed 12/03/2023, 06/22/2023, 06/01/2023, Additional history exists [...] this encounter Medical Devices Implanted Type Area Motion Picture Projectionist Apprentice Device Identifier Shelf Expiration Date Model / Serial / Lot Lead- 3 Implanted:Qt y: 1 on 01/26/[address], DO Lead Back 1295.04 07/28/2025 [id number] / / Description:Implanted at [facility] Neurostimula tor-01/26/2023 Implanted: by Rashaad Street DO (Quantity not on file) Neurostimulator 1295.04 10/25/2025 [id number] / [id number] / Description:Nikita Cole Impl anted at [facility] Clip Quick 2.8mm 230cm - [id number] Implanted:Qt y: 4 on 11/14/2020 by Martina Cancino MD at ENDOSCOPY [facility] [employer] 06/27/2023 HX-202UR. A / / Lens 19.5 [id number] - [id number] - [id number] Implanted:Qt y: 1 on 03/26/2021 by Doyle Heredia DO at OR [facility] Right: Eye BRII : SURGICAL 10/29/2025 [id number] / [id number] 37 / Lens 19.5 [id number] - [id number] - [id number] Implanted:Qt y: 1 on 03/11/2022 by Doyle Heredia DO at OR [facility] Left: Eye BRII : SURGICAL 10/29/2025 [id number] / [id number] 29 / documented as of this encounter Visit Diagnoses Diagnosis Dysuria- Primary Gastrointestinal hemorrhage with melena Anemia, unspecified type Abdominal pain, generalized documented in this encounter Advance Directives * Full Code (Latest Code Status on File) Date Activated Date Inactivated Comments 03/11/2022 7:56 AM 03/11/2022 2:41 PM Question Answer Comments Discussion of Advance Direct donnie occurred with: Not Discussed due to patient's condition Care Teams Specialty Food Products Supervisor Relationship Specialty Start Date End Date Derrek Sparks MD [address] [place] [address] PCP - General Family Medicine 08/04/22 documented as of this encounter
--- OUTSIDE RECORDS SUMMARY | 2024-02-07 19:34 | External Medical Summary | Summary of Care ---
Author Name Unknown Organization [facility] Address [address] [place] [address] Phone [phone] Care Team Providers Care Senior Payroll Administrator Name Role Phone Derrek Sparks MD Primary Care Provider +1- [phone] Reason for Visit * Reason Comments Outpatient Testing Encounter Details Date Type Department Care Team (Late st Contact Info) Description 01/20/2024 11:50 AM EDT Laboratory Laboratory, [place] [address] [place] [address] [facility], [facility] [address], [place] [phone] Dysuria Allergies Active Allergy Reactions Criticality Noted Date [...] by mouth in the morning. 07/22/2020 Active [employer] Verio w/Device KitIndications:DM type 2 with diabetic peripheral neuropathy (HCC) Use to check blood sugars daily as directed E11.9 1 Kit 10/10/2020 Active [employer] In Vitro Strip (Glucose Blood)Indications: DM type [...] Oral Tablet (Coreg)Indications :Coronary artery disease involving [place] coronary artery of [place] heart without angina pectoris,HTN, goal below 140/90 [...] cancer 11/06/2019 Coronary artery disease invo lving [place] coronary artery of [place] heart without angina pectoris 07/04/2019 Senile osteoporosis 05/15/2019 Nontoxic uninodular goiter 11/17/2018 Gastroesophageal reflux disease without esophagi tis 11/01/2018 Rheumatoid arthritis 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 03/24/2018 Old GA (myocardial infarction) 03/24/2018 Type [...] 22 Old GA (myocardial infarction) 07/04/2019 09/26/2021 Major depression single epis ode, in partial remission 03/23/2019 08/26/2023 Severe obesity with body mas s index (BMI) of 36.0 to 36.9 with serious comorbidity 11/17/2018 Atherosclerosis of [place] co ronary artery of [place] heart without angina pectoris 11/17/201806/2021 Arteriosclerotic dementia [...] (Prevnar) 03/15/2018 Pneumococcal Conjugate Vacci ne, 20-valent ([id number]) 10/26/2023 Pneumococcal Conjugate Vacci ne, 7 Valent [...] Description 01/28/20 10:30 AM EDT Anticoagulation Pharmacy, [place] [address] [place] [address] [facility] [address] [place] [address] 01/31/20 9:30 AM EDT Scheduled Telephone Care Coordination and Integration [address] [place] [address] Agustina Shafer, Community Health Supervisor [employer] [address] [place] [address] 02/18/20 11:00 AM EDT Anticoagulation Pharmacy, [place] [address] [place] [address] [facility] [address] [place] [address] 02/24/20 2:00 PM EDT Hospital Encounter ENDO [facility], Endoscopy Room [facility] [address] [place] [phone] Leonora Liu MD [address] [place] [address] 02/24/20 2:00 PM EDT - 08/29/20 24 2:30 PM EDT Surgery [facility], Endoscopy Room [facility] [address] [facility] [place] [address] Leonora Liu MD [address] [place] [address] ESOPHAGOGASTRODUODENOSCOPY (EGD), FLEXIBLE, TRANSORAL, DIAGNOSTIC 04/04/20 24 9:00 AM EDT Office Visit Cardiology, [facility] [address] [facility] [place] [address] Corrine Quinn PANehalC 132 [facility] [place] [address] 05/11/20 24 10:15 AM EST Office Visit Ophthalmology, [facility] [address] [facility] [place] [address] Doyle Heredia, DO [facility] [place] [address] 05/18/20 24 10:40 AM EST Office Visit [place] [address] [place] [address] Derrek Sparks MD [address] [place] [address] 05/18/20 24 1:00 PM EST Office Visit Dermatology[address] [address] Sully Kearns PAAmita [address] [place] [address] [place] [address] 06/12/20 10:30 AM EST Office Visit Rheumatology [place] [address] [facility] [place] [address] Carlitos Castro CRNP [address] [place] [address] [place] [address] 12/15/19 9:00 AM EDT Home Visit Care at Home [address] [place] [address] Delmy Boggs PA-C [address] [place], [place] [phone] Pending Results Name Type Priority Associated Diagnoses Date /Time URINALYSIS, REFLEX TO MICROSCOPIC Lab Routine Dysuria 01/20/2024 11:48 AM EDT CULTURE, URINE, QUANTITATIVE Lab Routine Dysuria 01/20/2024 11:48 AM EDT Scheduled Procedures Name Priority Associated Diagnoses Date/Ti [...] D LEVEL ONCE IN A LIFETIME-USE SMARTSET# 74417 Completed 12/03/2023, 06/22/2023, 06/01/2023, Additional history exists [...] this encounter Medical Devices Implanted Type Area Orthopaedic General Device Identifier Shelf Expiration Date Model / Serial / Lot Lead- Implanted:Qt y: 1 on 01/26/[address] DO Lead Back 1295.04 07/28/2025 [id number] / / Description:Implanted at [facility] Neurostimula tor-01/26/2023 Implanted: by Rashaad tSreet DO (Quantity not on file) Neurostimulator 1295.04 10/25/2025 [id number] / [id number] / Description:Nikita page at [facility] Clip Quick 2.8mm 230cm - [id number] Implanted:Qt y: 4 on 11/14/2020 by Martina Cancino MD at ENDOSCOPY [facility] [employer] 06/27/2023 HX-202UR. A / / Lens 19.5 [id number] - [id number] - [id number] Implanted:Qt y: 1 on 03/26/2021 by Doyle Hreedia DO at OR [facility] Right: Eye BRII : SURGICAL 10/29/2025 [id number] / [id number] 37 / Lens 19.5 [id number] - [id number] - [id number] Implanted:Qt y: 1 on 03/11/2022 by Doyle Heredia DO at OR [facility] Left: Eye BRII : SURGICAL 10/29/2025 [id number] / [id number] 29 / documented as of this encounter Visit Diagnoses Diagnosis Dysuria Gastrointestinal hemorrhage with melena Anemia, unspecified type Abdominal pain, generalized documented in this encounter Advance Directives * Full Code (Latest Code Status on File) Date Activated Date Inactivated Comments 03/11/2022 7:56 AM 03/11/2022 2:41 PM Question Answer Comments Discussion of Advance Direct donnie occurred with: Not Discussed due to patient's condition Care Teams Senior Payroll Administrator Relationship Specialty Start Date End Date Derrek Sparks MD [address], [place] [phone] PCP - General Family Medicine 08/04/22 documented as of this encounter
--- OUTSIDE RECORDS SUMMARY | 2024-02-07 19:35 | External Medical Summary | Summary of Care ---
Author Name Unknown Organization [facility] Address [address] [place] [address] Phone [phone] Care Team Providers Care Damage Assessor Name Role Phone Derrek Sparks MD Primary Care Provider +1- [phone] Encounter Details Date Type Department Care Team (Late st Contact Info) Description 01/13/2024 Telephone [facility] [address] [place] [address] Chelly Kessler MD [address] [place] [address] Allergies Active Allergy Reactions Criticality Noted Date Comments Tello Inhibitors 05/08/2021 Hyperkalemia resulting in 2 hospitalizations Metformin Diarrhea 11/05/2022 Nadolol Itching 03/17/1999 Corgard itchy Nitroglycerin Other (Please comment) 02/09/2011 Headache that is only relieved with Morphine. Nsaids Nausea/vomiting 03/17/1999 relafen documented as of this encounter (statuses as of 01/13/2024) Medications Medication Sig Dispensed Refills Start Date [...] by mouth in the morning. 07/22/2020 Active [employer] Verio w/Device KitIndications:DM type 2 with diabetic [...] Tablet (Coreg)Indications :Coronary artery disease involving [place] co[place] coronary artery of [place] heart without angina pectoris,HTN, goal below 140/90 [...] mouth daily. 30 Tablet 11 01/13/2024 Active documented as of this encounter (statuses as of 01/13/2024) Active Problems Problem Noted Date Diagnosed Date [...] 11/06/2019 Coronary artery disease invo lving [place] coos coronary artery of conf[place] coos heart without angina pectoris 07/04/2019 Senile osteoporosis 05/15/2019 Nontoxic uninodular goiter 11/17/2018 Gastroesophageal reflux disease without esophagi tis 11/01/2018 Rheumatoid arthritis 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 03/24/2018 Old HI (myocardial infarction) 03/24/2018 Type 2 diabetes mellitus [...] as of this encounter (statuses as of 01/13/2024) Resolved Problems Problem Noted Date Diagnosed Date [...] negative rheumatoid factor 07/04/2019 09/27/19 22 Old HI (myocardial infarction) 07/04/2019 09/26/2021 Major depression single epis ode, in partial remission 03/23/2019 08/26/2023 Severe obesity with body mas s index (BMI) of 36.0 to 36.9 with serious comorbidity 11/17/2018 Atherosclerosis of confed[place] coos co ronary artery of confed[place] coos heart without angina pectoris 11/17/201806/2021 Arteriosclerotic dementia wi th depressive features 11/17/2018 12/16/2018 Compression fracture of lumbar vertebra 11/10/2018 11/07/2021 Iron deficiency anemia 05/26/201812/16 Colorectal polyps 04/22/2018 09/12/2018 HTN, goal below 140/90 03/24/201812/13 Rheumatoid arthritis 12/28/2017 023 Overview: More specified Dx listed on PL Acute HI 11/19/2017 11/19/2017 Inflammatory polyarthropathy 11/19/2017 12/16/2018 Loosening [...] as of this encounter (statuses as of 01/13/2024) Immunizations Name Administration Dates Next Due COVID-19 mRNA, LNP-s, No Pre serve, 2-Dose Series (Pfizer) 10/30/2020,10/09/2020 DT - Diptheria/Tetanus (PEDS) 04/13/2002 Diptheria/Tetanus (Adult) 06/28/1989 PPD 01/19/2018 Pneumococcal Conjugate Vacc, 13 Valent (Prevnar) 03/15/2018 Pneumococcal Conjugate Vacci ne, 20-valent ([id number]) 10/26/2023 Pneumococcal Conjugate Vacci ne, 7 Valent [...] encounter Miscellaneous Notes * Telephone Encounter - Nesha Shafer LPN - 01/13/2024 10:36 AM EDT Left generic message on answering machine asking patient to return our call. * Telephone Encounter - Chelly Kessler MD - 01/13/2024 9:24 AM EDT Her blood tests showed still uncontrolled DM Hba1c 8.2 Would like to start medication , called jardiance 10 mg daily which is also helpful for her heart condition For constipation, sent out different med , trulance due to martinez Let me know if this is also expensive documented in this encounter Plan of Treatment Upcoming Encounters Date Type Department Care Team (Latest Contact Info) Description 01/17/20 11:00 AM EDT Home Visit Care Coordination and Integration [address] [place] [facility] [place] [address] Agustina Shafer, [facility] Caretaker [address] [place] [facility] [place] [address] 01/20/20 11:30 AM EDT Anticoagulation Pharmacy, [place] [address] [place] [address] [place] [facility] [address] [place] [address] 02/18/20 24 11:00 AM EDT Anticoagulation [facility], [place] [address] [facility], [place] [address] [facility] [address] [facility], [place] [address] 02/24/20 2:00 PM EDT Hospital Encounter ENDO [facility], Endoscopy Room [facility] [address] [place] [address] Leonora Liu MD [address] [place] [address] 02/24/20 2:00 PM EDT - 02/24/20 2:30 PM EDT Surgery ENDO [facility], Endoscopy Room [facility] [address] [place] [address] Leonora Liu MD [address] [place] [address] ESOPHAGOGASTRODUODENOSCOPY (EGD), FLEXIBLE, TRANSORAL, DIAGNOSTIC 04/04/20 9:00 AM EDT Office Visit Cardiology, [facility] [address] [place] [address] Corrine Quinn, PAAmita [address] [place] [address] 05/11/20 24 10:15 AM EST Office Visit Ophthalmology, [facility] [place] [address] Doyle Heredia, DO [facility] [place] [address] 05/18/20 10:40 AM EST Office Visit [facility] [address] [facility], [place] [phone] Derrek Sparks MD [address] [place] [facility] [place] [address] 05/18/20 24 1:00 PM EST Office Visit Dermatology, [place] [address] [place] [facility] [place] [place] [address] Sully Kearns, PAAmita [address] [place] [address] [place] [address] 06/12/20 24 10:30 AM EST Office Visit Rheumatology [facility] [address] [facility] [place] [address] Carlitos Castro CRNP [address] [facility] [place] [address] 12/15/19 9:00 AM EDT Home Visit Care at Home [address] [place] [address] Delmy Boggs PA-C [address] [place] [address] Scheduled Procedures Name Priority Associated Diagnoses Date/Ti [...] D LEVEL ONCE IN A LIFETIME-USE SMARTSET# 44927 Completed 12/03/2023, 06/22/2023, 06/01/2023, Additional history exists [...] this encounter Medical Devices Implanted Type Area Skating Carhop Device Identifier Shelf Expiration Date Model / Serial / Lot Lead- 3 Implanted:Qt y: 1 on 01/26/[address], DO Lead Back 1295.04 07/28/2025 3005-50B / / Description:Implanted at [facility] Neurostimula tor-01/26/2023 Implanted: by Rashaad Street DO (Quantity not on file) Neurostimulator 1295.04 10/25/2025 [id number] / [id number] / Description:Nikita Soto anted at [facility] Clip Quick 2.8mm 230cm - [id number] Implanted:Qt y: 4 on 11/14/2020 by Martina Cancino MD at ENDOSCOPY [facility] [employer] 06/27/2023 HX-202UR. A / / Lens 19.5 [id number] - [id number] - [id number] Implanted:Qt y: 1 on 03/26/2021 by Doyle Heredia DO at OR [facility] Right: Eye BRII : SURGICAL 10/29/2025 [id number] / [id number] 37 / Lens 19.5 [id number] - [id number] - [id number] Implanted:Qt y: 1 on 03/11/2022 by Doyle Heredia DO at OR [facility] Left: Eye BRII : SURGICAL 10/29/2025 [id number] / [id number] 29 / documented as of this encounter Advance Directives * Full Code (Latest Code Status on File) Date Activated Date Inactivated Comments 03/11/2022 7:56 AM 03/11/2022 2:41 PM Question Answer Comments Discussion of Advance Direct donnie occurred with: Not Discussed due to patient's condition Care Teams Damage Assessor Relationship Specialty Start Date End Date Derrek Sparks MD [address] [facility] [address] PCP - General Family Medicine 08/04/22 documented as of this encounter
--- OUTSIDE RECORDS SUMMARY | 2024-02-07 19:35 | External Medical Summary | Summary of Care ---
Author Name Unknown Organization [facility] Address [address] [place] [address] Phone [phone] Care Team Providers Care Water Treatment Plant Operator Name Role Phone Derrek Sparks MD Primary Care Provider +1- [phone] Encounter Details Date Type Department Care Team (Late st Contact Info) Description 01/13/2024 Refill [facility] [address] [place] [address] Chelly Kessler MD [address] [place] [address] Allergies Active Allergy Reactions Criticality [...] by mouth in the morning. 07/22/2020 Active DoutíssimaTouch Verio w/Device KitIndications:DM type 2 with diabetic [...] Oral Tablet (Coreg)Indications :Coronary artery disease involving lime coronary artery of lime heart without angina pectoris,HTN, goal below 140/90 [...] cancer 11/06/2019 Coronary artery disease invo lving lime coronary artery of lime heart without angina pectoris 07/04/2019 Senile osteoporosis [...] 36.9 with serious comorbidity 11/17/2018 Atherosclerosis of lime co ronary artery of lime heart without angina pectoris 11/17/201806/2021 Arteriosclerotic dementia [...] (Prevnar) 03/15/2018 Pneumococcal Conjugate Vacci ne, 20-valent ([id number]) 10/26/2023 Pneumococcal Conjugate Vacci ne, 7 Valent [...] encounter Miscellaneous Notes * Addendum Note - May Mcpherson LPN - 01/13/2024 1:07 PM EDTAddended by: MAY MCPHERSON on: 01/13/2024 01:07 PM Modules accepted: Orders * Telephone Encounter - May Mcpherson LPN - 01/13/2024 1:06 PM EDT Patient aware and verbalized understanding, will comply Pt agreeable to try jardiance order pending. * Telephone Encounter - Nesha Shafer LPN - 01/13/2024 10:36 AM EDT Left generic message on answering machine asking patient to return our call. * Telephone Encounter - Chelly Keslser MD - 01/13/2024 9:24 AM EDT Her [...] Visit [facility] [address] [facility] [place] [address] Agustina Shafer, [facility] Tape Recorder Repairer [address] [facility] [place] [address] 01/20/20 11:30 AM EDT Anticoagulation Pharmacy, [place] [address] [place] [address] [facility] [address] [place] [address] 02/18/20 11:00 AM EDT Anticoagulation Pharmacy, [place] [address] [place] [address] [facility] [address] [place] [address] 02/24/20 2:00 PM EDT Hospital Encounter ENDO OSSC, Endoscopy Room [facility] [address] [place] [phone] Leonora Liu MD [address] [place] [address] 02/24/20 2:00 PM EDT - 02/24/20 2:30 PM EDT Surgery ENDO OSSC, Endoscopy Room [facility] [address] [place] [phone] Leonora Liu MD [address] [place] [address] ESOPHAGOGASTRODUODENOSCOPY (EGD), FLEXIBLE, TRANSORAL, DIAGNOSTIC 04/04/20 9:00 AM EDT Office Visit Cardiology, [facility] [address] [place] [address] Corrine Quinn PA-C [address] [place] [address] 05/11/20 24 10:15 AM EST Office Visit Ophthalmology, [facility] [address] [place] [address] Doyle Heredia, [address] [facility] [place] [address] 05/18/20 24 10:40 AM EST [facility] [address] [place] [address] Derrek Sparks MD [address] [place] [address] 05/18/20 24 1:00 PM EST Office Visit Dermatology, [place] [address] [place] [address] Sully Kearns PA-C [address] [place] [address] [place] [address] 06/12/20 24 10:30 AM EST Office Visit Rheumatology [address] [place] [address] Carlitos Castro CRNP [facility] [place] [address] 12/15/19 25 9:00 AM EDT Home Visit [facility] [address] [facility] [address] Delmy Boggs PA-C [address] [facility] [place] [address] Scheduled Procedures Name Priority Associated Diagnoses [...] 12/06/2020, Additional history exists TSH 06/01/2024 06/01/2023, 1 08/2022, 04/21/2021, Additional history exists HbA1c 07/13/2024 01/11/2024, 05/0 08/2023, 06/01/2023, Additional history exists Depression Screening 12/13/2024 12/14/2023, 10/26/19 24 Diabetic Foot Exam 01/10/2025 01/11/2024, 0 07/07/2022, 10/22/2020, Additional history exists GFR 01/10/2025 01/11/2024, 2 08/2023, 08/05/2023, Additional history exists Colonoscopy 08/18/2025 08/18/2022, 022 06/2022, 11/14/2020, Additional history exists DTaP,Tdap,and Td Vaccines (4 - Td or Tdap) 03/15/2028 03/15/2018, 03/15/2018, 01/25/2017, Additional history exists RETIRED - COLONOSCOPY-ANNUAL AGES 18-100 Discontinued 08/18/2022, 08/18/2022, 11/14/2020, Additional history exists Pneumococcal Vaccine: 65+ Years Completed 10/26/2023, 03/15/2018, 01/12/2002, Additional history exists VITAMIN D LEVEL ONCE IN A LIFETIME-USE SMARTSET# 86089 Completed 12/03/2023, 06/22/2023, 06/01/2023, Additional history exists [...] this encounter Medical Devices Implanted Type Area Folding Machine Feeder Device Identifier Shelf Expiration Date Model / Serial / Lot Lead- 3 Implanted:Qt y: 1 on 01/26/[address] DO Lead Back 1295.04 07/28/2025 [id number] / / Description:Implanted at [facility] Neurostimula tor-01/26/2023 Implanted: by Rashaad Street DO (Quantity not on file) Neurostimulator 1295.04 10/25/2025 [id number] / [id number] / Description:Nikita Cole Impl anted at [facility] Clip Quick 2.8mm 230cm - [id number] Implanted:Qt y: 4 on 11/14/2020 by Martina Cancino MD at ENDOSCOPY [facility] [employer] 06/27/2023 HX-202UR. A / / Lens 19.5 [id number] - [id number] - [id number] Implanted:Qt y: 1 on 03/26/2021 by Doyle Heredia DO at OR [facility] Right: Eye BRII : SURGICAL 10/29/2025 [id number] / [id number] / Lens 19.5 [id number] - [id number] - [id number] Implanted:Qt y: 1 on 03/11/2022 by Doyle Heredia DO at OR [facility] Left: Eye BRII : SURGICAL 10/29/2025 [id number] / [id number] / documented as of this encounter Advance Directives * Full Code (Latest Code Status on File) Date Activated Date Inactivated Comments 03/11/2022 7:56 AM 03/11/2022 2:41 PM Question Answer Comments Discussion of Advance Direct donnie occurred with: Not Discussed due to patient's condition Care Teams Water Treatment Plant Operator Relationship Specialty Start Date End Date Derrek Sparks MD [address] [place] [phone] PCP - General Family Medicine 08/04/22 documented as of this encounter
--- OUTSIDE RECORDS SUMMARY | 2024-02-07 19:35 | External Medical Summary ---
Author Name Unknown Address Unknown Organization : Laboratory Report Ordering Provider Test Date Status TIN ENRIQUEZ 01/20/2024 11:35:45 Final Therapeutic ranges for non-o perative patients:
Prophylaxsis/treatment of DVT: (Range:2.0-3.0)
Treatment of pulmonary embolism:(Range:2.0-3.0)
Prevention of systemic embolism from:
-tissue heart valves
-acute myocardial infarction
-valvular heart disease
-atrial fibrillation
(Range: 2.0-3.0)
Mechanical prosthetic valves: (Range: 2.5-3.5) Observation Date Value Abnormality Reference (Units ) Status INR in Capillary blood by Coagulation assay 01/20/2024 11:35:45 1.3 (INR) Final Performing Location
--- OUTSIDE RECORDS SUMMARY | 2024-02-07 19:35 | External Medical Summary | Summary of Care ---
Author Name Unknown Organization [facility] Address [address] [place] [address] Phone [phone] Care Team Providers Care Director Translational Name Role Phone Derrek Sparks MD Primary Care Provider +1- [phone] Encounter Details Date Type Department Care Team (Late st Contact Info) Description 01/17/2024 11:00 AM EDT Home Visit Care Coordination and Integration [address], [place] [id number] Agustina Shafer Community Health Manager Of Internal [address] [place] [address] Allergies Active Allergy Reactions Criticality Noted Date Comments Tello Inhibitors 05/08/2021 Hyperkalemia resulting in 2 hospitalizations Metformin Diarrhea 11/05/2022 Nadolol Itching 03/17/1999 Corgard itchy Nitroglycerin Other (Please comment) 02/09/2011 Headache that is only relieved with Morphine. Nsaids Nausea/vomiting 03/17/1999 relafen documented as of this encounter (statuses as of 01/17/2024) Medications Medication Sig Dispensed Refills Start Date [...] Oral Tablet (Coreg)Indications :Coronary artery disease involving yavapai-apache coronary artery of yavapai-apache heart without angina pectoris,HTN, goal below 140/90 [...] as of this encounter (statuses as of 01/17/2024) Active Problems Problem Noted Date Diagnosed Date [...] cancer 11/06/2019 Coronary artery disease invo lving yavapai-apache coronary artery of yavapai-apache heart without angina pectoris 07/04/2019 Senile osteoporosis 05/15/2019 Nontoxic uninodular goiter 11/17/2018 Gastroesophageal reflux disease without esophagi tis 11/01/2018 Rheumatoid arthritis 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 03/24/2018 Old PA (myocardial infarction) 03/24/2018 Type [...] as of this encounter (statuses as of 01/17/2024) Resolved Problems Problem Noted Date Diagnosed Date [...] 36.9 with serious comorbidity 11/17/2018 Atherosclerosis of yavapai-apache co ronary artery of yavapai-apache heart without angina pectoris 11/17/201806/2021 Arteriosclerotic dementia [...] as of this encounter (statuses as of 01/17/2024) Immunizations Name Administration Dates Next Due COVID-19 mRNA, LNP-s, No Pre serve, 2-Dose Series ([email or web address]) 10/30/2020,10/09/2020 DT - Diptheria/Tetanus (PEDS) 04/13/2002 PPD 01/19/2018 Pneumococcal Conjugate Vacc, 13 Valent (Prevnar) 03/15/2018 Pneumococcal Conjugate Vacci ne, 20-valent (Velfuch31) 10/26/2023 Pneumococcal Conjugate Vacci ne, 7 Valent [...] our heating, water, or electric bill? No 01/17/2024 Is your family able to pay [...] of this encounter Progress Notes * Agustina Shafer, Community Health Manager Of Internal - 01/17/2024 10:59 AM EDT Telemedicine visit: No Community Health Manager Of Internal (JORGITO) documentation: CHW home visit with bottles out review and home safety assessment. CHW met with pt and her spouse at their home. CHW survey completed SDOH completed Medications req with bottles out completed: One discrepency noted Donepezil HCI 5 MG one daily by mouth . Pt's spouse says she is taking this at night. Pt needs refills for Jantoven. No other discrepancies or refill needs noted. Pt's spouse stated they sometimes have difficulties paying for medications. CHW attempted to get them set up with [employer], however, they were above the income level. \ CHW did talk to them about the renters/homeowners rebate through the state. They had never applied.CHW left an application for them, as they stated family would look it over and help them apply. According to the quidelines, they should qualify for this program. Pt does not have any grab bars around her tub. Spouse states that the landlord won't allow them to get any. CHW educated about the suction cup type that don not require holes to be drilled to attach.Pt's spouse stated he would check into that. Pt has walker, canes, raised toilet with rails, wheelchair etc. At home. Pt's entrance is 2 steps down and the doorways are nice and wide. Pt has no difficulty accessing home. Pt's spouse tends to her medications and does a daily minder box. Pt's spouse provides transportation to appointments. Pt denies any falls in a long time. CHW will call pt in 2 weeks to assess further needs and see if they were able to fill out the application for rent rebate through the state. documented in this encounter Plan of Treatment Upcoming Encounters Date Type Department Care Team (Latest Contact Info) Description 01/20/20 11:30 AM EDT Anticoagulation Pharmacy, [place] [address] [place] [facility] [place] [address] [facility] [address] [place] [address] 01/31/20 9:30 AM EDT Scheduled Telephone Care Coordination and Integration [address] [place] [address] Agustina Shafer Community Health Manager Of Internal [address] [place] [address] 02/18/20 11:00 AM EDT Anticoagulation Pharmacy, [place] [address] [place] [facility] [place] [address] [facility] [address] [place] [address] 02/24/20 2:00 PM EDT Hospital Encounter ENDO OSS, Endoscopy Room [facility] [address] [facility] [place] [phone] Leonora Liu MD [address] [place] [address] 02/24/20 2:00 PM EDT - 02/24/20 2:30 PM EDT Surgery ENDO OSS, Endoscopy Room [facility] [address] [place] [phone] Leonora Liu MD [address] [place] [address] ESOPHAGOGASTRODUODENOSCOPY (EGD), FLEXIBLE, TRANSORAL, DIAGNOSTIC 04/04/20 9:00 AM EDT Office Visit Cardiology, [facility] [address] [place] [address] Corrine Quinn PA-C [address] [facility] [place] [address] 05/11/20 24 10:15 AM EST Office Visit Ophthalmology, [facility] [address] [place] [address] Doyle Heredia, [address] [place] [address] 05/18/20 10:40 AM EST Office Visit [facility] [address] [place] [address] Derrek Sparks MD [address] [place] [address] 05/18/20 1:00 PM EST Office Visit Dermatology, [place] [address] [place] [address] Sully Kearns PA-C [address] [place] [address] [place] [address] 06/12/20 24 10:30 AM EST Office Visit Rheumatology [place] [id number] [facility] [place] [address] Carlitos Castro CRNP [facility] [place] [address] 12/15/19 9:00 AM EDT Home Visit Care at Home [address] [place] [address] Delmy Boggs PA-C [address] [place] [address] Scheduled Procedures Name Priority Associated [...] D LEVEL ONCE IN A LIFETIME-USE SMARTSET# 41028 Completed 12/03/2023, 06/22/2023, 06/01/2023, Additional history exists [...] this encounter Medical Devices Implanted Type Area Kier Operator Device Identifier Shelf Expiration Date Model / Serial / Lot Lead- Implanted:Qt y: 1 on 01/26/[address] DO Lead Back 1295.04 07/28/2025 3005-50B / / Description:Implanted at [facility] Neurostimula [facility]-01/26/2023 Implanted: by Rashaad Street DO (Quantity not on file) Neurostimulator 1295.04 10/25/2025 [id number] / [id number] / Description:Nikita Cole Charles anted at [facility] Clip Quick 2.8mm 230cm - [id number] Implanted:Qt y: 4 on 11/14/2020 by Martina Cancino MD at ENDOSCOPY [facility] [employer] 06/27/2023 HX-202UR. A / / Lens 19.5 [id number] - [id number] - [id number] Implanted:Qt y: 1 on 03/26/2021 by Doyle Heredia DO at OR [facility] Right: Eye BRII : SURGICAL 10/29/2025 [id number] / [id number] 37 / Lens 19.5 [id number] - [id number] - [id number] Implanted:Qt y: 1 on 03/11/2022 by Doyle Heredia DO at OR [facility] Left: Eye BRII : SURGICAL 10/29/2025 [id number] / [id number] 29 / documented as of this encounter Advance Directives * Full Code (Latest Code Status on File) Date Activated Date Inactivated Comments 03/11/2022 7:56 AM 03/11/2022 2:41 PM Question Answer Comments Discussion of Advance Direct donnie occurred with: Not Discussed due to patient's condition Care Teams Director Translational Relationship Specialty Start Date End Date Derrek Sparks MD [address] [facility] [place] [address] PCP - General Family Medicine 08/04/22 documented as of this encounter
--- OUTSIDE RECORDS SUMMARY | 2024-02-07 19:35 | External Medical Summary | Summary of Care ---
Author Name Unknown Organization [facility] Address [address] [place] [address] Phone [phone] Care Team Providers Care Management Information Systems Director Name Role Phone Derrek Sparks MD Primary Care Provider +1- [phone] Reason for Visit * Reason Onset Date Comments Advice 01/11/2024 Medication Cost Encounter Details Date Type Department Care Team (Late st Contact Info) Description 01/11/2024 Telephone [facility] [address] [place] [address] Chelly Kessler MD [address] [place] [address] Advice (Medication Cost) Allergies Active Allergy Reactions Criticality Noted Date [...] by mouth in the morning. 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 30 Tablet 11 4 Active linaCLOtide 145 MCG Oral Capsule [...] cancer 11/06/2019 Coronary artery disease invo lving rosebud coronary artery of rosebud heart without angina pectoris 07/04/2019 Senile osteoporosis 05/15/2019 Nontoxic uninodular goiter 11/17/2018 Gastroesophageal reflux disease without esophagi tis 11/01/2018 Rheumatoid arthritis 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 03/24/2018 Old [place] (myocardial infarction) 03/24/2018 Type 2 diabetes mellitus [...] negative rheumatoid factor 07/04/2019 09/27/19 22 Old NM (myocardial infarction) 07/04/2019 09/26/2021 Major depression single epis ode, in partial remission 03/23/2019 08/26/2023 Severe obesity with body mas s index (BMI) of 36.0 to 36.9 with serious comorbidity 11/17/2018 Atherosclerosis of rosebud co ronary artery of rosebud heart without angina pectoris 11/17/201806/2021 Arteriosclerotic dementia wi th depressive features 11/17/2018 12/16/2018 Compression fracture of lumbar vertebra 11/10/2018 11/07/2021 Iron deficiency anemia 05/26/201812/16 Colorectal polyps 04/22/2018 09/12/2018 HTN, goal below 140/90 03/24/201812/13 Rheumatoid arthritis 12/28/2017 023 Overview: More specified Dx listed on PL Acute NM 11/19/2017 11/19/2017 Inflammatory polyarthropathy 11/19/2017 12/16/2018 Loosening [...] (Prevnar) 03/15/2018 Pneumococcal Conjugate Vacci ne, 20-valent ([id number]) 10/26/2023 Pneumococcal Conjugate Vacci ne, 7 Valent [...] 12/14/2023 Does the household have a re lar source of income? (Household - for ages [...] encounter Miscellaneous Notes * Telephone Encounter - Rodolfo Gardner MED JONATHAN - 01/13/2024 9:49 AM EDT Called Patient understood * Telephone Encounter - Chelly Kessler MD - 01/13/2024 9:02 AM EDT Will try trulance 3 mg Sent out * Telephone Encounter - Alexandria Ruff LPN - 01/12/2024 9:59 AM EDT Please advise, thank you! * Telephone Encounter - Salomon Mcgowan, scuba diver - 01/11/2024 4:15 PM EDT Pt calling stating that prescriber told her to call if her linaCLOtide 145 MCG Oral Capsule (Linzess) was too expensive. Pt states this medication is too expensive for her and would like a cheaper alternative. Please advise. Thank you, Salomon Mcgowan Flexo Folder Gluer Operator I [facility] 01/11/2024,4:17 PM documented in this encounter Plan of Treatment Upcoming Encounters Date Type Department Care Team (Latest Contact Info) Description 01/17/20 11:00 AM EDT Home Visit Care Coordination and Integration [address] [place] [address] Agustina Shafer, Community Health Digital Experience Manager [address] [place] [address] 01/20/20 11:30 AM EDT Anticoagulation Pharmacy, [place] [address] [place] [address] [facility] [address] [place] [address] 02/18/20 11:00 AM EDT Anticoagulation Pharmacy, [place] [address] [place] [address] [facility] [address] [place] [address] 02/24/20 2:00 PM EDT Hospital Encounter ENDO OSSC, Endoscopy Room [facility] [address] [place] [phone] Leonora Liu MD [address] [place] [address] 02/24/20 2:00 PM EDT - 02/24/20 2:30 PM EDT Surgery ENDO O[facility]C, Endoscopy Room [facility] [address] [place] [phone] Leonora Liu MD [address] [place] [address] ESOPHAGOGASTRODUODENOSCOPY (EGD), FLEXIBLE, TRANSORAL, DIAGNOSTIC 04/04/20 24 9:00 AM EDT Office Visit Cardiology, [facility] [address] [place] [address] Corrine Quinn PA-C [address] [place] [address] 05/11/20 24 10:15 AM EST Office Visit Ophthalmology, [facility] [address] [facility] [place] [address] Doyle Heredia, DO [address] [facility] [place] [address] 05/18/20 24 10:40 AM EST Office Visit Family Practice, [place] [address] [place] [address] Derrek Sparks MD [address] [place] [address] 05/18/20 24 1:00 PM EST Office Visit Dermatology, [place] [address] [place] [address] Sully Kearns PA-C [address] [place] [address] [place] [address] 06/12/20 24 10:30 AM EST Office Visit Rheumatology [facility] [address] [facility] [place] [address] Carlitos Castro CRNP [address] [facility] [place] [address] 12/15/19 9:00 AM EDT Home Visit Care at Home [address] [place] [address] Delmy Boggs PA-C [address] [place] [address] Scheduled Procedures Name Priority Associated Diagnoses Date/Ti [...] D LEVEL ONCE IN A LIFETIME-USE SMARTSET# 99874 Completed 12/03/2023, 06/22/2023, 06/01/2023, Additional history exists [...] this encounter Medical Devices Implanted Type Area Sap Bi Developer Device Identifier Shelf Expiration Date Model / Serial / Lot Lead- Implanted:Qt y: 1 on 01/26/[address] DO Lead Back 1295.04 07/28/2025 3005-50B / / Description:Implanted at [facility] Neurostimula tor-01/26/2023 Implanted: by Rashaad Street DO (Quantity not on file) Neurostimulator 1295.04 10/25/2025 [id number] / [id number] / Description:Nikita Cole Impl anted at [facility] Clip Quick 2.8mm 230cm - [id number] Implanted:Qt y: 4 on 11/14/2020 by Martina Cancino MD at ENDOSCOPY [facility] [employer] 06/27/2023 HX-202UR. A / / Lens 19.5 [id number] - [id number] - [id number] Implanted:Qt y: 1 on 03/26/2021 by Doyle Heredia DO at OR [facility] Right: Eye BRII : SURGICAL 10/29/2025 [id number] / [id number] / Lens 19.5 [id number] - [id number] - [id number] Implanted:Qt y: 1 on 03/11/2022 by Doyle Heredia DO at OR [facility] Left: Eye BRII : SURGICAL 10/29/2025 [id number] / [id number] / documented as of this encounter Advance Directives * Full Code (Latest Code Status on File) Date Activated Date Inactivated Comments 03/11/2022 7:56 AM 03/11/2022 2:41 PM Question Answer Comments Discussion of Advance Direct donnie occurred with: Not Discussed due to patient's condition Care Teams Management Information Systems Director Relationship Specialty Start Date End Date Derrek Sparks MD [address] [facility] [place] [address] PCP - General Family Medicine 08/04/22 documented as of this encounter
--- OUTSIDE RECORDS SUMMARY | 2024-02-07 19:35 | External Medical Summary | Summary of Care ---
Author Name Unknown Organization [facility] Address [address] [place] [address] Phone [phone] Care Team Providers Care Dairy Technologist Name Role Phone Derrek Sparks MD Primary Care Provider +1- [phone] Encounter Details Date Type Department Care Team (Late st Contact Info) Description 01/17/2024 1:45 PM EDT Scheduled Telephone Care Coordination and Integration [address] [place], [place] [phone] Marycarmen Silva, Community Health Appraiser Real Estate [address], [place] [phone] Allergies Active Allergy Reactions Criticality Noted Date [...] by mouth in the morning. 07/22/2020 Active Landscape MobileTouch Verio w/Device KitIndications:DM type 2 with diabetic [...] (Coreg)Indications :Coronary artery disease involving [place] coronary artery of [place] heart without angina pectoris,HTN, goal below 140/90 [...] Coronary artery disease invo lving [place] coronary artery of [place] heart without angina pectoris 07/04/2019 Senile osteoporosis [...] serious comorbidity 11/17/2018 Atherosclerosis of [place] co ronary artery of [place] heart without angina pectoris 11/17/201806/2021 Arteriosclerotic dementia [...] mRNA, LNP-s, No Pre serve, 2-Dose Series ([employer]) 10/30/2020,10/09/2020 DT - Diptheria/Tetanus (PEDS) 04/13/2002 PPD 01/19/2018 Pneumococcal Conjugate Vacc, 13 Valent (Prevnar) 03/15/2018 Pneumococcal Conjugate Vacci ne, 20-valent ([id number]) 10/26/2023 Pneumococcal Conjugate Vacci ne, 7 Valent [...] Progress Notes * Marycarmen Silva, Community Health Appraiser Real Estate - 01/17/2024 2:36 PM EDT Telemedicine visit: No Community Health Appraiser Real Estate (JORGITO) documentation: CHW placed PC to patient per CM's request Patient reported that she was not doing so well at the moment. She is still dealing with constipation and the pill that she was given to take to help with this is not helping at all. She has not moved her bowels in 4-5 days. It is also burning and stinging when she urinates. She finished her antibiotic a few days ago for a UTI. Her BS today was 184 and she is still really weak. CHW completed the SDOH assessment with patient. Patient reported that some women was there today and was looking into help with paying for medications. And [facility]. They do not qualify for LIHEAP. CHW confirmed CM's contact number with patient as patient did not have this info. CHW encouraged patient to reach out to CM with questions or concerns. Marycarmen Silva- Community Health Worker 1 Support Services/[employer] Plan [email or web address] documented in this encounter Plan of Treatment Upcoming Encounters Date Type Department Care Team (Latest Contact Info) Description 01/20/20 11:30 AM EDT [facility], [place] [address] [facility] [id number] [facility] [address] [facility] [address] 01/31/20 9:30 AM EDT Scheduled Telephone Care Coordination and Integration [address] [facility], [place] [address] Agustina Shafer, Community Health Appraiser Real Estate [address] [facility] [place] [address] 02/18/20 11:00 AM EDT [facility] [address] [facility] [address] [place], [facility] [address] [place] [address] 02/24/20 2:00 PM EDT Hospital Encounter ENDO [facility], Endoscopy Room [facility] [address] [place] [phone] Leonora Liu MD [address] [place] [address] 02/24/20 2:00 PM EDT - 02/24/20 2:30 PM EDT Surgery ENDO [facility], Endoscopy Room [facility] [address] [place] [phone] Leonora Liu MD [address] [place] [address] ESOPHAGOGASTRODUODENOSCOPY (EGD), FLEXIBLE, TRANSORAL, DIAGNOSTIC 04/04/20 9:00 AM EDT Office Visit Cardiology, [facility] [address] [place] [address] Corrine Quinn PA-C [address] [place] [address] 05/11/20 10:15 AM EST Office Visit Ophthalmology, [facility] [address] [place] [address] Doyle Heredia, DO [facility] [place] [address] 05/18/20 10:40 AM EST Office Visit Family Practice, [place] [address] [place] [phone] Derrek Sparks MD [address] [place] [address] 05/18/20 1:00 PM EST Office Visit Dermatology, [place] [address] [place] [facility] [place] [address] Sully Kearns, ANIA [address] [place] [address] [place] [address] 06/12/20 10:30 AM EST Office Visit Rheumatology [address] [place], [place] [address] Carlitos Castro CRNP [address] [place] [address] [place] [address] 12/15/19 9:00 AM EDT Home Visit Care at Home [address] [place], [place] [phone] Delmy Boggs PA-C [address] [place] [address] Scheduled Procedures Name Priority Associated Diagnoses Date/Ti [...] 04/21/2021, Additional history exists HbA1c 07/13/2024 01/11/2024, 0508/2023, 06/01/2023, Additional history exists Depression Screening 12/13/2024 [...] D LEVEL ONCE IN A LIFETIME-USE SMARTSET# 11898 Completed 12/03/2023, 06/22/2023, 06/01/2023, Additional history exists [...] this encounter Medical Devices Implanted Type Area Physician In Private Practice Device Identifier Shelf Expiration Date Model / Serial / Lot Lead- Implanted:Qt y: 1 on 01/26/[address] DO Lead Back 1295.04 07/28/2025 [id number] / / Description:Implanted at [facility] Neurostimula tor-01/26/2023 Implanted: by Rashaad Street DO (Quantity not on file) Neurostimulator 1295.04 10/25/2025 [id number] / [id number] / Description:Nikita Soto anted at [facility] Clip Quick 2.8mm 230cm - [id number] Implanted:Qt y: 4 on 11/14/2020 by Martina Cancino MD at ENDOSCOPY [facility] [employer] 06/27/2023 HX-202UR. A / / Lens 19.5 [id number] - [id number] - [id number] Implanted:Qt y: 1 on 03/26/2021 by Doyle Heredia DO at OR [facility] Right: Eye BRII : SURGICAL 10/29/2025 [id number] / [id number] / Lens 19.5 [id number] - [id number] - [id number] Implanted:Qt y: 1 on 03/11/2022 by Doyle Heredia DO at OR [facility] Left: Eye BRII : SURGICAL 10/29/2025 [id number] / [id number] / documented as of this encounter Advance Directives * Full Code (Latest Code Status on File) Date Activated Date Inactivated Comments 03/11/2022 7:56 AM 03/11/2022 2:41 PM Question Answer Comments Discussion of Advance Direct donnie occurred with: Not Discussed due to patient's condition Care Teams Dairy Technologist Relationship Specialty Start Date End Date Derrek Sparks MD [address] [place] [address] PCP - General Family Medicine 08/04/22 documented as of this encounter
--- OUTSIDE RECORDS SUMMARY | 2024-02-07 19:35 | External Medical Summary ---
Author Name Unknown Address Unknown Organization K01:[facility] [place] [address] [facility] [place] [address] Laboratory Report Ordering Provider Test Date Status TRICIA MCCARTHY 01/20/2024 11:48:55 Final <10,000 colonies/ml mixed no rmal john Observation Date Value Abnormality Reference (Units ) Status Bacteria identified in Specimen by Culture 01/20/2024 11:48:55 [id number]^ENTEROC OCCUS SPECIES Abnormal Final 10,000 to 100,000 colonies/m L Enterococcus species Performing Location [facility] [place] [address] [place] [address] Ordering Provider Test Date Status TRICIA MCCARTHY 01/20/2024 11:48:55 Final Observation Date Value Abnormality Reference (Units ) Status Ampicillin 01/20/2024 11:48:55 <=2 Susceptible Final Nitrofurantoin susceptibility 01/20/2024 11:48:55 <=16 Susceptible Final Tetracyclinesusceptibility 01/20/2024 11:48:55 <=1 Susceptible Final Vancomycinsusceptibility 01/20/2024 11:48:55 1 Susceptible Final Test: Culture, Urine, Quanti tative
Specimen Source: Urine, Clean Catch
Specimen Type: Urine
Specimen Date: 01/20/2024 1148
Result Date: 01/23/2024 1506
Result Status: Final result
Abnormal: Yes
Resulting Lab: [facility]
[address]
[place] [address]

CULTURE

10,000 to 100,000 colonies/mL Enterococcus species (Abnormal)

<10,000 colonies/ml mixed normal john

SUSCEPTIBILITY

Enterococcus
species
METHOD MICROBROTH
DILUTIONS

AMPICILLIN <=2 Susceptible
NITROFURANTOIN <=16 Susceptible
TETRACYCLINE <=1 Susceptible
VANCOMYCIN 1 Susceptible

null Performing Location [facility] - [address] [place] [address]
--- OUTSIDE RECORDS SUMMARY | 2024-02-07 19:35 | External Medical Summary | Summary of Care ---
Author Name Unknown Organization [facility] Address [address] [place] [address] Phone [phone] Care Team Providers Care Mascara Molder Name Role Phone Derrek Sparks MD Primary Care Provider +1- [phone] Reason for Visit * Reason Onset Date Comments Advice 01/18/2024 Encounter Details Date Type Department Care Team (Late st Contact Info) Description 01/18/2024 Telephone [facility] [address] [place] [address] Marycarmen Hylton, RN [address] [place] [address] Advice Allergies Active Allergy Reactions [...] by mouth in the morning. 07/22/2020 Active [employer] Verio w/Device KitIndications:DM type 2 with diabetic peripheral neuropathy (HCC) Use to check blood sugars daily as directed E11.9 1 Kit 10/10/2020 Active Alum[employer]ni In Vitro Strip (Glucose Blood)Indications: DM type [...] Oral Tablet (Coreg)Indications :Coronary artery disease involving [place] coronary artery of [place] heart without angina pectoris,HTN, goal below 140/90 [...] cancer 11/06/2019 Coronary artery disease invo lving [place] coronary artery of [place] heart without angina pectoris 07/04/2019 Senile osteoporosis 05/15/2019 Nontoxic uninodular goiter 11/17/2018 Gastroesophageal reflux disease without esophagi tis 11/01/2018 Rheumatoid arthritis 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 03/24/2018 Old [place] (myocardial infarction) 03/24/2018 Type [...] 36.9 with serious comorbidity 11/17/2018 Atherosclerosis of [place] co ronary artery of [place] heart without angina pectoris 11/17/201806/2021 Arteriosclerotic dementia [...] (Prevnar) 03/15/2018 Pneumococcal Conjugate Vacci ne, 20-valent ([id number]) 10/26/2023 Pneumococcal Conjugate Vacci ne, 7 Valent [...] 5 days. BACKGROUND: Pt was discharged from [facility] on 01/07 with hypotension, UTI and Melena [...] feel well. RECOMMENDATION: CM helping to cover [facility]. Please advise. Thank you Marycarmen A Concetta, supply coordinator, [facility] [address] [facility] [address] documented in this encounter Plan of Treatment Upcoming Encounters Date Type Department Care Team (Latest Contact Info) Description 01/20/20 11:30 AM EDT Anticoagulation Pharmacy, [place] [address] [place] [address] [facility] [address] [place] [address] 01/31/20 9:30 AM EDT Scheduled Telephone Care Coordination and Integration [address] [place] [address] Agustina Shafer, Community Health Production Support Developer [address] [place] [address] 02/18/20 11:00 AM EDT Anticoagulation Pharmacy, [place] [address] [place] [address] [facility] [address] [place] [address] 02/24/20 2:00 PM EDT Hospital Encounter [facility]O [facility], Endoscopy Room [facility] [address] [place] [address] Leonora Liu MD [address] [place] [address] 02/24/20 2:00 PM EDT - 02/24/20 2:30 PM EDT Surgery [facility], Endoscopy Room [facility] [address] [place] [address] Lenoora Liu MD [address] [place] [address] ESOPHAGOGASTRODUODENOSCOPY (EGD), FLEXIBLE, TRANSORAL, DIAGNOSTIC 04/04/20 24 9:00 AM EDT Office Visit Cardiology, [facility] [address] [facility] [place] [address] Corrine Quinn PA-C [address] [facility] [place] [address] 05/11/20 24 10:15 AM EST Office Visit Ophthalmology, [facility] [address] [facility] [place] [address] Doyle Heredia, [facility] [place] [address] 05/18/20 24 10:40 AM EST Office Visit Family Practice, [place] [address] [place] [address] Derrek Sparks MD [address] [place] [address] 05/18/20 24 1:00 PM EST Office Visit Dermatology, [place] [address] [place] [address] Sully Kearns PA-C [address] [place] [address] [place] [address] 06/12/20 24 10:30 AM EST Office Visit Rheumatology [facility] [address] [facility] [place] [address] Carlitos Castro CRNP [address] [facility] [place] [address] 12/15/19 9:00 AM EDT Home Visit Care at Home [address] [facility] [place] [address] Delmy Boggs PA-C [address] [place] [address] Scheduled Orders Name Type Priority Associated Diagnoses [...] D LEVEL ONCE IN A LIFETIME-USE SMARTSET# 90410 Completed 12/03/2023, 06/22/2023, 06/01/2023, Additional history exists [...] this encounter Medical Devices Implanted Type Area Media Services Specialist Device Identifier Shelf Expiration Date Model / Serial / Lot Lead- 3 Implanted:Qt y: 1 on 01/26/[address] DO Lead Back 1295.04 07/28/2025 3005-50B / / Description:Implanted at [facility] Neurostimula tor-01/26/2023 Implanted: by Rashaad Street DO (Quantity not on file) Neurostimulator 1295.04 10/25/2025 [id number] / [id number] / Description:Nikita page at [facility] Clip Quick 2.8mm 230cm - [id number] Implanted:Qt y: 4 on 11/14/2020 by Martina Cancino MD at ENDOSCOPY [facility] [employer] 06/27/2023 HX-202UR. A / / Lens 19.5 [id number] - [id number] - [id number] Implanted:Qt y: 1 on 03/26/2021 by Doyle Heredia DO at OR [facility] Right: Eye BRII : SURGICAL 10/29/2025 [id number] / [id number] 37 / Lens 19.5 [id number] - [id number] - [id number] Implanted:Qt y: 1 on 03/11/2022 by Doyle Heredia DO at OR [facility] Left: Eye BRII : SURGICAL 10/29/2025 [id number] / [id number] 29 / documented as of this encounter [...] Discussed due to patient's condition Care Teams Mascara Molder Relationship Specialty Start Date End Date Derrek Sparks MD [address] [place] [address] PCP - General Family Medicine 08/04/22 documented as of this encounter
--- OUTSIDE RECORDS SUMMARY | 2024-02-07 19:35 | External Medical Summary ---
Author Name Unknown Address Unknown Organization K01:[facility] - [address] [place] [address] Laboratory Report Ordering Provider Test Date Status TRICIA MCCARTHY 01/20/2024 11:48:55 Final Observation Date Value Abnormality Reference (Units ) Status Color of Urine by Auto 01/20/2024 11:48:55 Light Yellow Colorless, Light Yellow, Yellow, Dark Yellow Final Clarity, Urine 01/20/2024 11:48:55 Clear Clear Final Glucose [Mass/volume] in Urine by Automated test strip 01/20/2024 11:48:55 >=1000 Abnormal Negative (mg/dL) Final Bilirubin.total [Presence] in Urine by Automated test strip 01/20/2024 11:48:55 Negative Negative Final Ketones [Mass/volume] in Urine by Automated test strip 01/20/2024 11:48:55 Negative Negative (mg/dL) Final Specific gravity, Urine 01/20/2024 11:48:55 1.016 1.003-1.030 Final Hemoglobin [Presence] in Urine by Automated test strip 01/20/2024 11:48:55 Negative Negative Final pH, Urine 01/20/2024 11:48:55 6.0 5.0-7.5 (Units) Final Protein [Mass/volume] in Urine by Automated test strip 01/20/2024 11:48:55 Negative Negative (mg/dL) Final Urobilinogen [Mass/volume] in Urine by Automated test strip 01/20/2024 11:48:55 Normal Normal (mg/dL) Final Nitrite [Presence] in Urine by Automated test strip 01/20/2024 11:48:55 Negative Negative Final Leukocyte esterase [Presence] in Urine by Automated test strip 01/20/2024 11:48:55 Negative Negative Final Annotation Comment 01/20/2024 11:48:55 Final Screen negative - Microscopi c not performed. Performing Location LABORATORY [facility] - [address] [place] [address]
--- OUTSIDE RECORDS SUMMARY | 2024-02-07 19:36 | External Medical Summary | Summary of Care ---
Author Name Unknown Organization [facility] Address [address] [place] [address] Phone [phone] Care Team Providers Care Business Analysis Professional Name Role Phone Derrek Sparks MD Primary Care Provider +1- [phone] Reason for Visit * Reason Onset Date Comments Advice 01/11/2024 Medication Cost Encounter Details Date Type Department Care Team (Late st Contact Info) Description 01/11/2024 Telephone [facility] [address] [place] [address] Chelly Kessler MD [address] [place] [address] Advice (Medication Cost) Allergies Active [...] by mouth in the morning. 1 Active Desecuritrex Verio w/Device KitIndications:DM type 2 with diabetic peripheral neuropathy (HCC) Use to check blood sugars daily as directed E11.9 1 Kit 1 Active Desecuritrex Verio In Vitro Strip (Glucose Blood)Indications :DM [...] hands with negative rheumatoid factor 03/24/2018 Old [place] (myocardial infarction) 03/24/2018 Type 2 diabetes mellitus [...] negative rheumatoid factor 07/04/2019 09/27/19 22 Old [place] (myocardial infarction) 07/04/2019 09/26/2021 Major depression single [...] More specified Dx listed on PL Acute LA 11/19/2017 11/19/2017 Inflammatory polyarthropathy 11/19/2017 12/16/2018 Loosening [...] (Prevnar) 03/15/2018 Pneumococcal Conjugate Vacci ne, 20-valent ([id number]) 10/26/2023 Pneumococcal Conjugate Vacci ne, 7 Valent [...] thank you! * Telephone Encounter - Salomon Mcgowan PHARM Tech - 01/11/2024 4:15 PM EDT Pt calling stating that prescriber told her to call if her linaCLOtide 145 MCG Oral Capsule (Linzess) was too expensive. Pt states this medication is too expensive for her and would like a cheaper alternative. Please advise. Thank you, Salomon Mcgowan Oral Surgery Technician [facility] 01/11/2024,4:17 PM documented in this encounter Plan of Treatment Upcoming Encounters Date Type Department Care Team (Latest Contact Info) Description 01/17/20 11:00 AM EDT Home Visit Care Coordination and Integration [address] [place] [address] Agustina Shafer, Community Health Merchandise Appraiser [address] [place] [address] 01/20/20 11:30 AM EDT Anticoagulation Pharmacy, [place] [address] [place] [facility] [place] [address] [facility] [address] [place] [facility] [place] [address] 02/18/20 11:00 AM EDT Anticoagulation Pharmacy, [place] [address] [place] [facility] [place] [address] [facility] [address] [place] [facility] [place] [address] 02/24/20 2:00 PM EDT Hospital Encounter ENDO [facility], Endoscopy Room [facility] [address] [place] [phone] Leonora Liu MD [address] [place] [address] 02/24/20 24 2:00 PM EDT - 02/24/20 2:30 PM EDT Surgery ENDO [facility], Endoscopy Room [facility] [address] [place] [phone] Leonora Liu MD [address] [place] [address] ESOPHAGOGASTRODUODENOSCOPY (EGD), FLEXIBLE, TRANSORAL, DIAGNOSTIC 04/04/20 24 9:00 AM EDT Office Visit Cardiology, [facility] [address] [place] [address] Corrine Quinn, PANehalC [address] [place] [address] 05/11/20 10:15 AM EST Office Visit Ophthalmology, [facility] [address] [place] [address] Doyle Heredia, DO [address] [place] [address] 05/18/20 10:40 AM EST Office Visit Family Practice, [place] [address] [place] [address] Derrek Sparks MD [address] [place] [address] 05/18/20 1:00 PM EST Office Visit Dermatology, [place] [address] [place] [address] Sully eKarns PA-C [address] [place] [address] [place] [address] 06/12/20 10:30 AM EST Office Visit Rheumatology [facility] [address] [facility] [place], [place] [address] Carlitos Castro CRNP [address] [facility] [place] [address] 12/15/19 9:00 AM EDT Home Visit Care at Home [address] [place], [place] [phone] Delmy Boggs PA-C [address] [place] [address] Scheduled Procedures Name Priority Associated Diagnoses Date/Ti [...] D LEVEL ONCE IN A LIFETIME-USE SMARTSET# 04525 Completed 12/03/2023, 06/22/2023, 06/01/2023, Additional history exists [...] encounter Medical Devices Implanted Type Area Political Organizer Device Identifier Shelf Expiration Date Model / Serial / Lot Lead- Implanted:Qt y: 1 on 01/26/[address] DO Lead Back 1295.04 07/28/2025 3005-50B / / Description:Implanted at [facility] Neurostimula tor-01/26/2023 Implanted: by Rashaad Street DO (Quantity not on file) Neurostimulator 1295.04 10/25/2025 [id number] / [id number] / Description:Nikita Cole Impl anted at [facility] Clip Quick 2.8mm 230cm - [id number] Implanted:Qt y: 4 on 11/14/2020 by Martina Cancino MD at ENDOSCOPY [facility] [employer] 06/27/2023 HX-202UR. A / / Lens 19.5 [id number] - [id number] - [id number] Implanted:Qt y: 1 on 03/26/2021 by Doyle Heredia DO at OR [facility] Right: Eye BRII : SURGICAL 10/29/2025 [id number] / [id number] / Lens 19.5 [id number] - [id number] - [id number] Implanted:Qt y: 1 on 03/11/2022 by Doyle Heredia DO at OR [facility] Left: Eye BRII : SURGICAL 10/29/2025 [id number] / [id number] 29 / documented as of this encounter Advance Directives * Full Code (Latest Code Status on File) Date Activated Date Inactivated Comments 03/11/2022 7:56 AM 03/11/2022 2:41 PM Question Answer Comments Discussion of Advance Direct donnie occurred with: Not Discussed due to patient's condition Care Teams Business Analysis Professional Relationship Specialty Start Date End Date Derrek Sparks MD [address] [place] [address] PCP - General Family Medicine 08/04/22 documented as of this encounter
--- OUTSIDE RECORDS SUMMARY | 2024-02-07 19:36 | External Medical Summary | Summary of Care ---
Author Name Unknown Organization [facility] Address [address] [place] [address] Phone [phone] Care Team Providers Care Web Search Evaluator Name Role Phone Derrek Sparks MD Primary Care Provider +1- [phone] Encounter Details Date Type Department Care Team (Late st Contact Info) Description 01/13/2024 Telephone [facility] [address] [place] [address] Chelly Kessler MD [address] [place] [address] Allergies Active Allergy Reactions Criticality [...] by mouth in the morning. 07/22/2020 Active Parametric SoundTouch Verio w/Device KitIndications:DM type 2 with diabetic [...] Oral Tablet (Coreg)Indications :Coronary artery disease involving [place] coronary artery of [place] heart without angina pectoris,HTN, goal below 140/90 [...] cancer 11/06/2019 Coronary artery disease invo lving [place] coronary artery of [place] heart without angina pectoris 07/04/2019 Senile osteoporosis [...] 36.9 with serious comorbidity 11/17/2018 Atherosclerosis of [place] co ronary artery of [place] heart without angina pectoris 11/17/201806/2021 Arteriosclerotic dementia [...] (Prevnar) 03/15/2018 Pneumococcal Conjugate Vacci ne, 20-valent ([id number]) 10/26/2023 Pneumococcal Conjugate Vacci ne, 7 Valent [...] Visit Care Coordination and Integration [address] [place] [address] Agustina Shafer, Community Health Venetian Blind Cleaner [address] [place] [address] 01/20/20 11:30 AM EDT Anticoagulation Pharmacy, [place] [address] [place] [address] [facility] [place] [address] 02/18/20 11:00 AM EDT Anticoagulation Pharmacy, [place] [address] [place] [address] [facility] [address] [place] [address] 02/24/20 2:00 PM EDT Hospital Encounter ENDO [facility], Endoscopy Room [facility] [address] [place] [phone] Leonora Liu MD [address] [place] [address] 02/24/20 24 2:00 PM EDT - 02/24/20 24 2:30 PM EDT Surgery ENDO [facility], Endoscopy Room [facility] [address] [place] [address] Leonora Liu MD [address] [place] [address] ESOPHAGOGASTRODUODENOSCOPY (EGD), FLEXIBLE, TRANSORAL, DIAGNOSTIC 04/04/20 9:00 AM EDT Office Visit Cardiology, [facility] [place] [address] Corrine Quinn, PANehalC 132 [facility] [place] [address] 05/11/20 24 10:15 AM EST Office Visit Ophthalmology, [facility] 132 [facility] [place] [address] Doyle Heredia DO [address] [facility] [place] [address] 05/18/20 24 10:40 AM EST [facility] [place] [address] [facility] [address] Derrek Sparks MD [address] [facility], [place] [address] 05/18/20 24 1:00 PM EST Office Visit Dermatology, [place] [address] [facility], [place] [address] Sully Kearns, PA-C [address] [place] [address] [place] [address] 06/12/20 24 10:30 AM EST Office Visit Rheumatology [facility] [address] [facility] [place], [place] [address] Carlitos Castro CRNP [address] [facility] [place] [address] 12/15/19 9:00 AM EDT Home Visit Care at Home [address] [place], [place] [id number] Delmy Boggs PA-C [address] [place], [place] [phone] Scheduled Procedures Name Priority Associated Diagnoses Date/Ti [...] D LEVEL ONCE IN A LIFETIME-USE SMARTSET# 87787 Completed 12/03/2023, 06/22/2023, 06/01/2023, Additional history exists [...] Medical Devices Implanted Type Area Real Estate Appraiser Device Identifier Shelf Expiration Date Model / Serial / Lot Lead- 3 Implanted:Qt y: 1 on 01/26/[address] DO Lead Back 1295.04 07/28/2025 3005-50B / / Description:Implanted at [facility] Neurostimula tor-01/26/2023 Implanted: by Rashaad Street DO (Quantity not on file) Neurostimulator 1295.04 10/25/2025 [id number] / [id number] / Description:Nikita page at [facility] Clip Quick 2.8mm 230cm - [id number] Implanted:Qt y: 4 on 11/14/2020 by Martina Cancino MD at ENDOSCOPY [facility] [email or web address] 06/27/2023 HX-202UR. A / / Lens 19.5 [id number] - [id number] - [id number] Implanted:Qt y: 1 on 03/26/2021 by Doyle Heredia DO at OR [facility] Right: Eye BRII : SURGICAL 10/29/2025 [id number] / [id number] / Lens 19.5 [id number] - [id number] - [id number] Implanted:Qt y: 1 on 03/11/2022 by Doyle Heredia DO at OR [facility] Left: Eye BRII : SURGICAL 10/29/2025 [id number] / [id number] 29 / documented as of this encounter Advance Directives * Full Code (Latest Code Status on File) Date Activated Date Inactivated Comments 03/11/2022 7:56 AM 03/11/2022 2:41 PM Question Answer Comments Discussion of Advance Direct donnie occurred with: Not Discussed due to patient's condition Care Teams Web Search Evaluator Relationship Specialty Start Date End Date Derrek Sparks MD [address] [place] [address] PCP - General Family Medicine 08/04/22 documented as of this encounter
--- OUTSIDE RECORDS SUMMARY | 2024-02-07 19:36 | External Medical Summary | Summary of Care ---
Author Name Unknown Organization [facility] Address [address] [place] [address] Phone [phone] Care Team Providers Care Manager Rehab Name Role Phone Derrek Sparks MD Primary Care Provider +1- [phone] Reason for Visit * Reason Onset Date Comments Advice 01/12/2024 Encounter Details Date Type Department Care Team (Late st Contact Info) Description 01/12/2024 Telephone [facility] [address] [place] [address] Derrek Sparks MD [address] [place] [address] Advice Allergies Active Allergy Reactions Criticality Noted [...] by mouth in the morning. 1 Active HypiosTouch Verio w/Device KitIndications:DM type 2 with diabetic peripheral neuropathy (HCC) Use to check blood sugars daily as directed E11.9 1 Kit 1 Active HypiosTouch Verio In Vitro Strip (Glucose Blood)Indications :DM [...] Oral Tablet (Coreg)Indication s:Coronary artery disease involving [place] coronary artery of [place] heart without angina pectoris,HTN, goal below 140/90 [...] cancer 11/06/2019 Coronary artery disease invo lving [place] coronary artery of [place] heart without angina pectoris 07/04/2019 Senile osteoporosis 05/15/2019 Nontoxic uninodular goiter 11/17/2018 Gastroesophageal reflux disease without esophagi tis 11/01/2018 Rheumatoid arthritis 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 03/24/2018 Old [place] (myocardial infarction) 03/24/2018 Type 2 diabetes mellitus [...] negative rheumatoid factor 07/04/2019 09/27/19 22 Old [place] (myocardial infarction) 07/04/2019 09/26/2021 Major depression single epis ode, in partial remission 03/23/2019 08/26/2023 Severe obesity with body mas s index (BMI) of 36.0 to 36.9 with serious comorbidity 11/17/2018 Atherosclerosis of [place] co ronary artery of [place] heart without angina pectoris 11/17/201806/2021 Arteriosclerotic dementia wi th depressive features 11/17/2018 12/16/2018 Compression fracture of lumbar vertebra 11/10/2018 11/07/2021 Iron deficiency anemia 05/26/201812/16 Colorectal polyps 04/22/2018 09/12/2018 HTN, goal below 140/90 03/24/201812/13 Rheumatoid arthritis 12/28/2017 023 Overview: More specified Dx listed on PL Acute SC 11/19/2017 11/19/2017 Inflammatory polyarthropathy 11/19/2017 12/16/2018 Loosening [...] (Prevnar) 03/15/2018 Pneumococcal Conjugate Vacci ne, 20-valent ([id number]) 10/26/2023 Pneumococcal Conjugate Vacci ne, 7 Valent [...] * Telephone Encounter - Rodolfo Gardner MED ASSIST - 01/13/2024 9:50 AM EDT Called patient, she understood * Telephone Encounter - Chelly Kessler MD - 01/13/2024 8:58 AM EDT Ok to hold coumadin for 5 days prior to procedure * Telephone Encounter - Alexandria Ruff LPN - 01/12/2024 11:23 AM EDT Please advise, thank you! * Telephone Encounter - Elodia Fitzpatrick OSA - 01/12/2024 11:12 AM EDT Pt has an upper scope scheduled with us on 02/23 she is needing instructions on how she should hold the coumadin before the procedure please contact pt with what is recommended. Please advise. documented in this encounter Plan of Treatment Upcoming Encounters Date Type Department Care Team (Latest Contact Info) Description 01/17/20 11:00 AM EDT Home Visit Care Coordination and Integration [address] [facility] [place] [address] Agustina Shafer, Community Health Hose Tender [address] [facility] [place] [address] 01/20/20 11:30 AM EDT Anticoagulation Pharmacy, [place] [address] [place] [facility] [address] [facility] [address] [place] [facility] [address] 02/18/20 11:00 AM EDT Anticoagulation Pharmacy, [place] [address] [place] [facility] [address] [facility] [address] [place] [facility] [address] 02/24/20 2:00 PM EDT Hospital Encounter ENDO [facility], Endoscopy Room [facility] [address] [place] [phone] Leonora Liu MD [address] [place] [address] 02/24/20 2:00 PM EDT - 02/24/20 2:30 PM EDT Surgery ENDO [facility], Endoscopy Room [facility] [address] [place] [phone] Leonora Liu MD [address] [place] [address] ESOPHAGOGASTRODUODENOSCOPY (EGD), FLEXIBLE, TRANSORAL, DIAGNOSTIC 04/04/20 9:00 AM EDT Office Visit Cardiology, [facility] [address] [place] [address] Corrine Quinn PA-C 132 [facility] [place] [address] 05/11/20 24 10:15 AM EST Office Visit Ophthalmology, [facility] 132 [facility] [place] [address] Doyle Heredia, [address] [place] [address] 05/18/20 24 10:40 AM EST Office Visit Family Practice, [place] [address] [place] [address] Derrek Sparks MD [address] [place] [address] 05/18/20 24 1:00 PM EST Office Visit Dermatology, [place] [address] [place] [address] Sully Kearns PA-C [address] [place] [address] [place] [address] 06/12/20 24 10:30 AM EST Office Visit Rheumatology [address] [place] [address] Carlitos Castro CRNP [address] [place] [address] [place] [address] 12/15/19 25 9:00 AM EDT Home Visit Care at Home [address] [facility] [place] [address] Delmy Boggs PA-C [address] [facility] [place] [phone] Scheduled Procedures Name Priority Associated Diagnoses Date/Ti [...] D LEVEL ONCE IN A LIFETIME-USE SMARTSET# 17135 Completed 12/03/2023, 06/22/2023, 06/01/2023, Additional history exists [...] this encounter Medical Devices Implanted Type Area Trouble Shooter Device Identifier Shelf Expiration Date Model / Serial / Lot Lead- 3 Implanted:Qt y: 1 on 01/26/[address] DO Lead Back 1295.04 07/28/2025 3005-50B / / Description:Implanted at [facility] Neurostimula tor-01/26/2023 Implanted: by Rashaad Street DO (Quantity not on file) Neurostimulator 1295.04 10/25/2025 [id number] / [id number] / Description:Nikita Cole Impl anted at [facility] Clip Quick 2.8mm 230cm - [id number] Implanted:Qt y: 4 on 11/14/2020 by Martina Cancino MD at ENDOSCOPY [facility] [employer] 06/27/2023 HX-202UR. A / / Lens 19.5 [id number] - [id number] - [id number] Implanted:Qt y: 1 on 03/26/2021 by Doyle Heredia DO at OR [facility] Right: Eye BRII : SURGICAL 10/29/2025 [id number] / [id number] 37 / Lens 19.5 [id number] - [id number] - [id number] Implanted:Qt y: 1 on 03/11/2022 by Doyle Heredia DO at OR [facility] Left: Eye BRII : SURGICAL 10/29/2025 [id number] / [id number] 29 / documented as of this encounter Advance Directives * Full Code (Latest Code Status on File) Date Activated Date Inactivated Comments 03/11/2022 7:56 AM 03/11/2022 2:41 PM Question Answer Comments Discussion of Advance Direct donnie occurred with: Not Discussed due to patient's condition Care Teams Manager Rehab Relationship Specialty Start Date End Date Derrek Sparks MD [address] [place] [address] PCP - General Family Medicine 08/04/22 documented as of this encounter
--- OUTSIDE RECORDS SUMMARY | 2024-02-07 19:38 | External Medical Summary | Summary of Care ---
Author Name Unknown Organization [facility] Address [address] [place] [address] Phone [phone] Care Team Providers Care Psychodramatist Name Role Phone Derrek Sparks MD Primary Care Provider +1- [phone] Reason for Visit * Reason Onset Date Comments Advice 01/12/2024 Encounter Details Date Type Department Care Team (Late st Contact Info) Description 01/12/2024 Telephone [facility] [address] [place] [address] Derrek Sparks MD [address] [place] [address] Advice Allergies Active Allergy Reactions [...] by mouth in the morning. 07/22/2020 Active Syracuse UniversityTouch Verio w/Device KitIndications:DM type 2 with diabetic peripheral neuropathy (HCC) Use to check blood sugars daily as directed E11.9 1 Kit 10/10/2020 Active Syracuse UniversityTouch Verio In Vitro Strip (Glucose Blood)Indications: DM [...] Oral Tablet (Coreg)Indications :Coronary artery disease involving [place] coronary artery of [place] heart without angina pectoris,HTN, goal below 140/90 [...] before bedtime. 60 Capsule 1 12/29/2023 Active linaCLOtide 145 MCG Oral Capsule (Linzess)Indicatio ns:Chronic constipation,Irrit able bowel syndrome with constipation,Abdom inal pain, generalized Take 1 Capsule by mouth daily before breakfast. 90 Capsule 3 01/11/2024 Active documented as of this encounter (statuses [...] cancer 11/06/2019 Coronary artery disease invo lving [place] coronary artery of [place] heart without angina pectoris 07/04/2019 Senile osteoporosis 05/15/2019 Nontoxic uninodular goiter 11/17/2018 Gastroesophageal reflux disease without esophagi tis 11/01/2018 Rheumatoid arthritis 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 03/24/2018 Old [place] (myocardial infarction) 03/24/2018 Type 2 diabetes mellitus [...] negative rheumatoid factor 07/04/2019 09/27/19 22 Old [place] (myocardial infarction) 07/04/2019 09/26/2021 Major depression single epis ode, in partial remission 03/23/2019 08/26/2023 Severe obesity with body mas s index (BMI) of 36.0 to 36.9 with serious comorbidity 11/17/2018 Atherosclerosis of [place] co ronary artery of [place] heart without angina pectoris 11/17/201806/2021 Arteriosclerotic dementia wi th depressive features 11/17/2018 12/16/2018 Compression fracture of lumbar vertebra 11/10/2018 11/07/2021 Iron deficiency anemia 05/26/201812/16 Colorectal polyps 04/22/2018 09/12/2018 HTN, goal below 140/90 03/24/201812/13 Rheumatoid arthritis 12/28/2017 023 Overview: More specified Dx listed on PL Acute [place] 11/19/2017 11/19/2017 Inflammatory polyarthropathy 11/19/2017 12/16/2018 Loosening [...] (Prevnar) 03/15/2018 Pneumococcal Conjugate Vacci ne, 20-valent ([id number]) 10/26/2023 Pneumococcal Conjugate Vacci ne, 7 Valent [...] Care Team (Latest Contact Info) Description 01/17/20 24 11:00 AM EDT Home Visit Care Coordination and Integration [address] [place] [address] Agustina Shafer, Community Health Rail Switch Operator [address] [place] [address] 01/20/20 11:30 AM EDT Anticoagulation Pharmacy, [place] [address] [place] [facility] [place] [address] [facility] [address] [place] [facility] [address] 02/18/20 11:00 AM EDT Anticoagulation Pharmacy, [place] [address] [place] [facility] [address] [facility] [address] [place] [facility] [address] 02/24/20 2:00 PM EDT Hospital Encounter ENDO [facility], Endoscopy Room [facility] [address] [place] [phone] Leonora Liu MD [address] [place] [address] 02/24/20 2:00 PM EDT - 02/24/20 2:30 PM EDT Surgery ENDO [facility], Endoscopy Room [facility] [address] [place] [phone] Leonora Liu MD [address] [place] [address] ESOPHAGOGASTRODUODENOSCOPY (EGD), FLEXIBLE, TRANSORAL, DIAGNOSTIC 04/04/20 9:00 AM EDT Office Visit Cardiology, [facility] [address] [place] [address] Corrine Quinn PA-C [address] [place] [address] 05/11/20 10:15 AM EST Office Visit Ophthalmology, [facility] [address] [facility] [place] [address] Doyle Heredia, 21 [facility] [place] [address] 05/18/20 10:40 AM EST Office Visit Family Practice, [place] [address] [place] [address] Derrek Sparks MD [address] [place] [address] 05/18/20 1:00 PM EST Office Visit Dermatology, [place] [address] [place] [address] Sully Kearns, PAAmita [address] [place] [address] [place] [address] 06/12/20 10:30 AM EST Office Visit Rheumatology [place] [address] [facility] [place], [place] [address] Carlitos Castro CRNP [facility] [place] [address] 12/15/19 9:00 AM EDT Home Visit Care at Home [address] [place], [place] [phone] Delmy Boggs PA-C [address] [place], [place] [phone] Scheduled Procedures Name Priority Associated Diagnoses Date/Ti [...] D LEVEL ONCE IN A LIFETIME-USE SMARTSET# 50561 Completed 12/03/2023, 06/22/2023, 06/01/2023, Additional history exists [...] this encounter Medical Devices Implanted Type Area Athletic Trainer Device Identifier Shelf Expiration Date Model / Serial / Lot Lead- 3 Implanted:Qt y: 1 on 01/26/[address] DO Lead Back 1295.04 07/28/2025 3005-50B / / Description:Implanted at [facility] Neurostimula tor-01/26/2023 Implanted: by Rashaad Street DO (Quantity not on file) Neurostimulator 1295.04 10/25/2025 [id number] / [id number] / Description:Nikita Soto anted at [facility] Clip Quick 2.8mm 230cm - [id number] Implanted:Qt y: 4 on 11/14/2020 by Martina Cancino MD at ENDOSCOPY [facility] [employer] 06/27/2023 HX-202UR. A / / Lens 19.5 [id number] - [id number] - [id number] Implanted:Qt y: 1 on 03/26/2021 by Doyle Heredia DO at OR [facility] Right: Eye BRII : SURGICAL 10/29/2025 [id number] / [id number] / Lens 19.5 [id number] - [id number] - [id number] Implanted:Qt y: 1 on 03/11/2022 by Doyle Heredia DO at OR [facility] Left: Eye BRII : SURGICAL 10/29/2025 [id number] / [id number] 29 / documented as of this encounter Advance Directives * Full Code (Latest Code Status on File) Date Activated Date Inactivated Comments 03/11/2022 7:56 AM 03/11/2022 2:41 PM Question Answer Comments Discussion of Advance Direct donnie occurred with: Not Discussed due to patient's condition Care Teams Psychodramatist Relationship Specialty Start Date End Date Derrek Sparks MD [address] [place] [facility] [place] [address] PCP - General Family Medicine 08/04/22 documented as of this encounter
--- OUTSIDE RECORDS SUMMARY | 2024-02-07 19:39 | External Medical Summary | Summary of Care ---
Author Name Unknown Organization [facility] Address [address] [place] [address] Phone [phone] Care Team Providers Care Nib Finisher Name Role Phone Derrek Sparks MD Primary Care Provider [phone]- [phone] Reason for Visit * Reason Onset Date Comments Appointment 01/12/2024 Upper endoscopy Encounter Details Date Type Department Care Team (Late st Contact Info) Description 01/12/2024 Telephone Gastroenterology, [place] [address] [place] [address] Bert, Stephanie No Resource [address] [place] [address] Appointment (Upper endoscopy ) Allergies Active Allergy Reactions Criticality Noted Date Comments Tello Inhibitors 05/08/2021 Hyperkalemia resulting in 2 hospitalizations Metformin Diarrhea 11/05/2022 Nadolol Itching 03/17/1999 Corgard itchy Nitroglycerin Other (Please comment) 02/09/2011 Headache that is only relieved with Morphine. Nsaids Nausea/vomiting 03/17/1999 relafen documented as of this encounter (statuses as of 01/12/2024) Medications Medication Sig Dispensed Refills Start Date [...] by mouth in the morning. 07/22/2020 Active Desura Verio w/Device KitIndications:DM type 2 with diabetic peripheral neuropathy (HCC) Use to check blood sugars daily as directed E11.9 1 Kit 10/10/2020 Active [employer] In Vitro Strip (Glucose Blood)Indications: DM type [...] Oral Tablet (Coreg)Indications :Coronary artery disease involving [place] coronary artery of [place] heart without angina pectoris,HTN, goal below [...] as of this encounter (statuses as of 01/12/2024) Active Problems Problem Noted Date Diagnosed Date [...] cancer 11/06/2019 Coronary artery disease invo lving [place] coronary artery of [place] heart without angina pectoris 07/04/2019 Senile [...] as of this encounter (statuses as of 01/12/2024) Resolved Problems Problem Noted Date Diagnosed Date [...] 36.9 with serious comorbidity 11/17/2018 Atherosclerosis of [place] co ronary artery of [place] heart without angina pectoris 11/17/201806/2021 Arteriosclerotic [...] as of this encounter (statuses as of 01/12/2024) Immunizations Name Administration Dates Next Due COVID-19 mRNA, LNP-s, No Pre serve, 2-Dose Series ([facility]) 10/30/2020,10/09/2020 DT - Diptheria/Tetanus (PEDS) 04/13/2002 PPD 01/19/2018 Pneumococcal Conjugate Vacc, 13 Valent (Prevnar) 03/15/2018 Pneumococcal Conjugate Vacci ne, 20-valent ([id number]) 10/26/2023 Pneumococcal Conjugate Vacci ne, 7 Valent [...] encounter Miscellaneous Notes * Telephone Encounter - Deedee Dupont OSA - 01/12/2024 10:08 AM EDT Lmm for pt. * Telephone Encounter - Shira Leo OSA - 01/12/2024 7:33 AM EDT Order UPPER ENDOSCOPY GI REFERRAL OP [[id number]] (Order [id number]) Elmira Tavares 01/11/2024 11:20 AM Office Visit Description: 78 year old female Provider: Chelly Kessler MD Department: [facility] Order Information Date and Time Department Ordering/Authorizing 01/11/2024 11:46 AM Chelly Bentley MD Order Providers Authorizing Provider Encounter Provider ([id number]) Chelly Kessler MD ([id number]) Chelly Kessler MD Priority and Order Details [...] (routine) Where should this appointment be scheduled? [facility] Referral (Authorized) ID: [id number] Created on: 01/11/2024 Referred by Referred to Chelly Kessler MD Gastroenterology Reason: Ancillary Services Required Priority: Within 10 days (routine) Type: Ancillary Services Visits Requested: 999 Decision Date: 01/11/2024 Start Date: 01/11/2024 Related Appointments None Associated Diagnoses Abdominal pain, generalized [R10.84] - Primary Anemia, unspecified type [D64.9] Gastrointestinal hemorrhage with melena [K92.1] Encounter View Encounter Reprint Requisition UPPER ENDOSCOPY GI REFERRAL OP (Order #[id number]) on 01/11/24 Detailed Information Priority and Order Details Reference Links Neighborly Acct Guarantor Acct Type [id number] ELMIRA TAVARES Personal/Family [1] Service Location Name Address Phone [facility] [address] [facility] [phone] Currently Active Insurance Payor Plan Subscriber Member ID GHP GOLD GHP GOLD PREFERRED ENHANCED MP-DD ELMIRA TAVARES [id number] documented in this encounter Plan of Treatment Upcoming Encounters Date Type Department Care Team (Latest Contact Info) Description 01/14/20 11:15 AM EDT Hospital Encounter ENDO [facility], Endoscopy Room [facility] [address] [place] [phone] Everette Alberto MD [address] [place] [address] 01/14/20 11:15 AM EDT - 01/14/20 11:45 AM EDT Surgery ENDO [facility], Endoscopy Room [facility] [address] [place] [phone] Everette Alberto MD [address] [place] [address] ESOPHAGOGASTRODUODENOSCOPY (EGD), FLEXIBLE, TRANSORAL, DIAGNOSTIC 01/17/20 11:00 AM EDT Home Visit Care Coordination and Integration [address] [place] [facility] [place] [address] Agustina Shafer, Community Health Admin Asst [address] [place] [address] 02/18/20 11:00 AM EDT [address] [address] [facility] [address] [facility] [address] 04/04/20 24 9:00 AM EDT Office Visit Cardiology, [facility] [address] [facility] [place] [address] Corrine Quinn PA-C [address] [facility] [place] [address] 05/11/20 10:15 AM EST Office Visit Ophthalmology, [facility] [address] [facility] [place] [address] Doyle Heredia DO [address] [facility] [place] [address] 05/18/20 10:40 AM EST Office Visit Family Practice, [place] [address] [facility] [address] Derrek Sparks MD [address] [place] [address] 05/18/20 24 1:00 PM EST Office Visit Dermatology, [place] [address] [place] [address] Sully Kearns PA-C [address] [place] [address] [place] [address] 06/12/20 10:30 AM EST Office Visit Rheumatology [place] [address] [facility] [place] [address] Carlitos Castro CRNP [address] [facility] [place] [address] 12/15/19 9:00 AM EDT Home Visit Care at Home [address] [place] [address] Delmy Boggs PA-C [address] [place] [address] Scheduled Procedures Name Priority Associated Diagnoses Date/Ti me ESOPHAGOGASTRODUODENOSCOPY ( EGD), FLEXIBLE, TRANSORAL, DIAGNOSTIC Gastrointestinal hemorrhage with melena Anemia, unspecified type Abdominal pain, generalized 01/14/2024 11:15 AM EDT Health Maintenance Due Date Last [...] D LEVEL ONCE IN A LIFETIME-USE SMARTSET# [id number] Completed 12/03/2023, 06/22/2023, 06/01/2023, Additional history exists [...] this encounter Medical Devices Implanted Type Area Pneumatic System Conveyor Operator Device Identifier Shelf Expiration Date Model / Serial / Lot Lead- 3 Implanted:Qt y: 1 on 01/26/[address] DO Lead Back 1295.04 07/28/2025 [id number] / / Description:Implanted at [facility] [address] Neurostimula [facility]-01/26/2023 Implanted: by Rashaad Street DO (Quantity not on file) Neurostimulator 1295.04 10/25/2025 [id number] / [id number] / Description:Nikita page at [facility] [address] Clip Quick 2.8mm 230cm - [id number] Implanted:Qt y: 4 on 11/14/2020 by Martina Cancino MD at ENDOSCOPY [facility] [employer] 06/27/2023 HX-202UR. A / / Lens 19.5 [id number] - [id number] - [id number] Implanted:Qt y: 1 on 03/26/2021 by Doyle Heredia DO at OR [facility] Right: Eye BRII : SURGICAL 10/29/2025 [id number] / [id number] / Lens 19.5 [id number] - [id number] - [id number] Implanted:Qt y: 1 on 03/11/2022 by Doyle Heredia DO at OR [facility] Left: Eye BRII : SURGICAL 10/29/2025 [id number] / [id number] / documented as of this encounter Advance Directives * Full Code (Latest Code Status on File) Date Activated Date Inactivated Comments 03/11/2022 7:56 AM 03/11/2022 2:41 PM Question Answer Comments Discussion of Advance Direct donnie occurred with: Not Discussed due to patient's condition Care Teams Nib Finisher Relationship Specialty Start Date End Date Derrek Sparks MD [address], [place] [phone] PCP - General Family Medicine 08/04/22 documented as of this encounter
--- OUTSIDE RECORDS SUMMARY | 2024-02-07 19:39 | External Medical Summary | Summary of Care ---
Author Name Unknown Organization [facility] Address [address] [place] [address] Phone [phone] Care Team Providers Care Systems Support Specialist Name Role Phone Derrek Sparks MD Primary Care Provider [phone]- [phone] Reason for Visit * Reason Comments Dosage Adjustment Via Phone (anticoag Cl inic) Encounter Details Date Type Department Care Team (Latest Contact Info) Description 01/12/2024 6:30 AM EDT Anticoagulation Pharmacy, [address] [address] [facility] [address] [place] [address] Anticoagulation management encounter*; Longstanding persistent atrial fibrillation [...] by mouth in the morning. 07/22/2020 Active [employer] Verio w/Device KitIndications:DM type 2 with diabetic peripheral neuropathy (HCC) Use to check blood sugars daily as directed E11.9 1 Kit 10/10/2020 Active [employer] In Vitro Strip (Glucose Blood)Indications: DM type [...] Oral Tablet (Coreg)Indications :Coronary artery disease involving [place] coronary artery of [place] heart without angina pectoris,HTN, goal below 140/90 [...] cancer 11/06/2019 Coronary artery disease invo lving [place] coronary artery of [place] heart without angina pectoris 07/04/2019 Senile osteoporosis [...] 36.9 with serious comorbidity 11/17/2018 Atherosclerosis of [place] co ronary artery of tet[place] heart without angina pectoris 11/17/201806/2021 Arteriosclerotic dementia [...] (Prevnar) 03/15/2018 Pneumococcal Conjugate Vacci ne, 20-valent ([id number]) 10/26/2023 Pneumococcal Conjugate Vacci ne, 7 Valent [...] Progress Notes * Alanna Osborn RPh - 01/12/2024 7:41 AM EDT Images from the original note were not included. Medication Therapy Disease Management - Anticoagulation Patient: Elmira Tavares | : 1945 Subjective Contacts Type Contact Phone/Fax 01/12/2024 11:52 AM EDT Phone (Outgoing) Elmira Tavares "Amber" (Self) [phone] (H) Spoke to Patient Patient-Reported Symptoms: Patient Findings Positives: Hospital admission (Admitted at [facility] 01/04-01/07 for potential GIB; recieved vit K upon admission; warfarin held and restarted 01/06 after OK'd by GI.) Objective Current Warfarin Dose As of 01/12/2024 Warfarin maintenance plan: 6 mg (4 mg x 1.5) every Mon, Fri; 4 mg (4 mg x 1) all other days INR Result As of 01/12/2024 INR goal: 1.8-2.2 INR used for dosin.3 (01/11/2024) Assessment & Plan Warfarin Plan As of 01/12/2024 Full warfarin instructions: 6 mg every Mon, Fri; 4 mg all other days Next INR check: 01/20/2024 Repeat PT/INR in 1 week(s) Weekly dose: not changed- choosing not to have pt take bolus doses either, anticipate the INR to return to goal range by next week Additional Dosing Information: Alanna Osborn RPh Clinical Pharmacist 01/12/2024, 7:41 AM documented in this encounter Plan of Treatment Upcoming Encounters Date Type Department Care Team (Latest Contact Info) Description 01/17/20 11:00 AM EDT Home Visit Care Coordination and Integration [address] [place] [facility] [facility] [address] Agustina Shafer, Community Health Health Care Social Worker [address] [place] [facility] [address] 01/20/20 11:30 AM EDT Anticoagulation Pharmacy, [place] [address] [place] [facility] [address] [facility] [address] [place] [facility] [address] 02/18/20 11:00 AM EDT Anticoagulation Pharmacy, [place] [address] [place] [address] [facility] [address] [place] [facility] [address] 02/24/20 2:00 PM EDT Hospital Encounter [facility]O [facility], Endoscopy Room [facility] [address] [place] [phone] Leonora Liu MD [address] [place] [address] 02/24/20 2:00 PM EDT - 02/24/20 2:30 PM EDT Surgery ENDO [facility], Endoscopy Room [facility] [address] [place] [phone] Leonora Liu MD [address] [place] [address] ESOPHAGOGASTRODUODENOSCOPY (EGD), FLEXIBLE, TRANSORAL, DIAGNOSTIC 04/04/20 9:00 AM EDT Office Visit Cardiology, [facility] [address] [place] [address] Corrine Quinn PA-C [address] [facility] [place] [address] 05/11/20 24 10:15 AM EST Office Visit Ophthalmology, [facility] [address] [facility] [place] [address] Doyle Heredia, [address] [place] [address] 05/18/20 24 10:40 AM EST Office Visit Family Practice, [place] [address] [place] [phone] Derrek Sparks MD [address] [place] [address] 05/18/20 24 1:00 PM EST Office Visit Dermatology, [place] [address] [place] [address] Sully Kearns PA-C [address] [place] [address] [place] [address] 06/12/20 24 10:30 AM EST Office Visit Rheumatology [address] [place] [address] Carlitos Castro CRNP [address] [place] [address] [place] [address] 12/15/19 25 9:00 AM EDT Home Visit Care at Home [address] [facility] [place] [address] Delmy Boggs PA-C [address] [facility] [place] [phone] Scheduled Procedures Name Priority Associated Diagnoses Date/Ti [...] D LEVEL ONCE IN A LIFETIME-USE SMARTSET# 48652 Completed 12/03/2023, 06/22/2023, 06/01/2023, Additional history exists [...] this encounter Medical Devices Implanted Type Area Chief Ii Dispatcher Device Identifier Shelf Expiration Date Model / Serial / Lot Lead- 3 Implanted:Qt y: 1 on 01/26/[address] DO Lead Back 1295.04 07/28/2025 3005-50B / / Description:Implanted at [facility] Neurostimula tor-01/26/2023 Implanted: by Rashaad Street DO (Quantity not on file) Neurostimulator 1295.04 10/25/2025 [id number] / [id number] / Description:Nikita Cole Impl anted at [facility] Clip Quick 2.8mm 230cm - [id number] Implanted:Qt y: 4 on 11/14/2020 by Martina Cancino MD at ENDOSCOPY [facility] [employer] 06/27/2023 HX-202UR. A / / Lens 19.5 [id number] - [id number] - [id number] Implanted:Qt y: 1 on 03/26/2021 by Doyle Heredia DO at OR [facility] Right: Eye BRII : SURGICAL 10/29/2025 [id number] / [id number] 37 / Lens 19.5 [id number] - [id number] - [id number] Implanted:Qt y: 1 on 03/11/2022 by Doyle Heredia DO at OR [facility] Left: Eye BRII : SURGICAL 10/29/2025 [id number] / [id number] 29 / documented as of this encounter Visit Diagnoses Diagnosis Anticoagulation management [...] Discussed due to patient's condition Care Teams Systems Support Specialist Relationship Specialty Start Date End Date Derrek Sparks MD [address] [place] [address] PCP - General Family Medicine 08/04/22 documented as of this encounter
--- OUTSIDE RECORDS SUMMARY | 2024-02-07 19:39 | External Medical Summary | Summary of Care ---
Author Name Unknown Organization [facility] Address [address] [place] [address] Phone [phone] Care Team Providers Care Finance Manager Name Role Phone Derrek Sparks MD Primary Care Provider +1- [phone] Reason for Visit * Reason Onset Date Comments Advice 01/12/2024 Encounter Details Date Type Department Care Team (Late st Contact Info) Description 01/12/[address] [facility] [address] [place] [address] Derrek Sparks MD [address] [place] [address] Advice Allergies Active Allergy Reactions [...] by mouth in the morning. 07/22/2020 Active [employer]Touch Verio w/Device KitIndications:DM type 2 with diabetic peripheral neuropathy (HCC) Use to check blood sugars daily as directed E11.9 1 Kit 10/10/2020 Active [employer]ferTouch Verio In Vitro Strip (Glucose Blood)Indications: DM [...] Oral Tablet (Coreg)Indications :Coronary artery disease involving [place] coronary artery of [place] heart without angina pectoris,HTN, goal below 140/90 [...] cancer 11/06/2019 Coronary artery disease invo lving [place] coronary artery of [place] heart without angina pectoris 07/04/2019 Senile osteoporosis 05/15/2019 Nontoxic uninodular goiter 11/17/2018 Gastroesophageal reflux disease without esophagi tis 11/01/2018 Rheumatoid arthritis 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 03/24/2018 Old VT (myocardial infarction) 03/24/2018 Type [...] 36.9 with serious comorbidity 11/17/2018 Atherosclerosis of [place] co ronary artery of [place] heart without angina pectoris 11/17/201806/2021 Arteriosclerotic dementia [...] (Prevnar) 03/15/2018 Pneumococcal Conjugate Vacci ne, 20-valent ([id number]) 10/26/2023 Pneumococcal Conjugate Vacci ne, 7 Valent [...] Visit Care Coordination and Integration [address] [place] [address] Agustina Shafer, Community Health First Assist [address] [place] [address] 02/18/20 11:00 AM EDT Anticoagulation Pharmacy, [place] [address] [place] [address] [facility] [address] [place] [address] 02/24/20 2:00 PM EDT Hospital Encounter ENDO [facility], Endoscopy Room [facility] [address] [place] [address] Leonora Liu MD [address] [place] [address] 02/24/20 2:00 PM EDT - 02/24/20 2:30 PM EDT Surgery ENDO [facility], Endoscopy Room [facility] [address] [place] [address] Leonora Liu MD [address] [place] [address] ESOPHAGOGASTRODUODENOSCOPY (EGD), FLEXIBLE, TRANSORAL, DIAGNOSTIC 04/04/20 9:00 AM EDT Office Visit Cardiology, [facility] [address] [place] [facility] [place] [address] Corrine Quinn PA-C [facility] [place] [place] [address] 05/11/20 10:15 AM EST Office Visit Ophthalmology, [facility] [address] [place] [address] Doyle Heredia, DO [address] [place] [address] 05/18/20 10:40 AM EST Office Visit [facility] [address] [facility], [place] [address] Derrek Sparks MD [address] [facility], [place] [address] 05/18/20 1:00 PM EST Office Visit Dermatology, [place] [address] [facility], [place] [address] Sully Kearns PA-C [address] [place] [address] [place] [address] 06/12/20 10:30 AM EST Office Visit Rheumatology [facility] [address] [facility] [place] [address] Carlitos Castro, BLAYNE [address] [facility] [place] [address] 12/15/19 9:00 AM EDT Home Visit Care at Home [address] [place] [address] Delmy Boggs PA-C [address] [place], [place] [address] Scheduled Procedures Name Priority Associated Diagnoses Date/Ti [...] D LEVEL ONCE IN A LIFETIME-USE SMARTSET# 47677 Completed 12/03/2023, 06/22/2023, 06/01/2023, Additional history exists [...] encounter Medical Devices Implanted Type Area Medical Van Driver Device Identifier Shelf Expiration Date Model / Serial / Lot Lead- 3 Implanted:Qt y: 1 on 01/26/[address] DO Lead Back 1295.04 07/28/2025 3005-50B / / Description:Implanted at [facility] Neurostimula tor-01/26/2023 Implanted: by Rashaad Srteet DO (Quantity not on file) Neurostimulator 1295.04 10/25/2025 [id number] / [id number] / Description:Nikita Soto anted at [facility] Clip Quick 2.8mm 230cm - [id number] Implanted:Qt y: 4 on 11/14/2020 by Martina Cancion MD at ENDOSCOPY [facility] [employer] 06/27/2023 HX-202UR. A / / Lens 19.5 [id number] - [id number] - [id number] Implanted:Qt y: 1 on 03/26/2021 by Doyle Heredia DO at OR [facility] Right: Eye BRII : SURGICAL 10/29/2025 [id number] / [id number] / Lens 19.5 [id number] - [id number] - [id number] Implanted:Qt y: 1 on 03/11/2022 by Doyle Heredia, at OR [facility] Left: Eye BRII : SURGICAL 10/29/2025 [id number] / [id number] / documented as of this encounter Advance Directives * Full Code (Latest Code Status on File) Date Activated Date Inactivated Comments 03/11/2022 7:56 AM 03/11/2022 2:41 PM Question Answer Comments Discussion of Advance Direct donnie occurred with: Not Discussed due to patient's condition Care Teams Finance Manager Relationship Specialty Start Date End Date Derrek Sparks MD [address] [place] [facility] [place] [address] PCP - General Family Medicine 08/04/22 documented as of this encounter
--- OUTSIDE RECORDS SUMMARY | 2024-02-07 19:39 | External Medical Summary | Summary of Care ---
Author Name Unknown Organization [facility] Address [address] [place] [address] Phone [phone] Care Team Providers Care Roof Bolter Operator Name Role Phone Derrek Sparks MD Primary Care Provider +1- [phone] Reason for Visit * Reason Onset Date Comments Appointment 01/10/2024 Encounter Details Date Type Department Care Team (Late st Contact Info) Description 01/10/2024 Telephone [facility] [address] [place] [address] Marycarmen Hylton, RN [address] [place] [address] Appointment Allergies Active Allergy Reactions Criticality Noted [...] by mouth in the morning. 07/22/2020 Active Data Driven Delivery System Verio w/Device KitIndications:DM type 2 with diabetic peripheral neuropathy (HCC) Use to check blood sugars daily as directed E11.9 1 Kit 10/10/2020 Active Data Driven Delivery System VerRespira [employer]rapeutics In Vitro Strip (Glucose Blood)Indications: DM type [...] (Coreg)Indications :Coronary artery disease involving [place] coronary artery of [place] heart without angina pectoris,HTN, goal below 140/90 [...] Coronary artery disease invo lving [place] coronary artery of [place] heart without angina pectoris 07/04/2019 Senile osteoporosis [...] with negative rheumatoid factor 07/04/2019 09/27/19 Old MO (myocardial infarction) 07/04/2019 09/26/2021 Major depression single epis ode, in partial remission 03/23/2019 08/26/2023 Severe obesity with body mas s index (BMI) of 36.0 to 36.9 with serious comorbidity 11/17/2018 Atherosclerosis of [place] co ronary artery of [place] heart without angina pectoris 11/17/201806/2021 Arteriosclerotic dementia [...] (Prevnar) 03/15/2018 Pneumococcal Conjugate Vacci ne, 20-valent ([id number]) 10/26/2023 Pneumococcal Conjugate Vacci ne, 7 Valent [...] Encounter - Deedee Dupont OSA - 01/12/2024 12:24 PM EDT Pt eamon'd for EGD 02/24/24. * Telephone Encounter - Deedee Dupont OSA - 01/10/2024 1:53 PM EDT Please review records from [place] 01/05/24 if ok to schedule office appt. * Telephone Encounter - Marycarmen Hylton RN - 01/10/2024 11:57 AM EDT Patient needs an appointment scheduled with GI for follow up with hospitalization for GI bleed. documented in this encounter Plan of Treatment Upcoming Encounters Date Type Department Care Team (Latest Contact Info) Description 01/17/20 11:00 AM EDT Home Visit Care Coordination and Integration [address] [place] [address] Agustina Shafer, Community Health Imposer [address] [place] [address] 01/20/20 11:30 AM EDT Anticoagulation Pharmacy, [place] [address] [place] [address] [facility] [address] [facility], [place] [address] 02/18/20 11:00 AM EDT Anticoagulation Pharmacy, [place] [address] [facility], [place] [address] [place], [facility] [address] [facility], [place] [address] 02/24/20 24 2:00 PM EDT Hospital Encounter ENDO OSSC, Endoscopy Room [facility] [address] [place] [phone] Leonora Liu MD [address] [place] [address] 02/24/20 2:00 PM EDT - 02/24/20 2:30 PM EDT Surgery ENDO OSS, Endoscopy Room [facility] [address] [place] [phone] Leonora Liu MD [address] [place] [address] ESOPHAGOGASTRODUODENOSCOPY (EGD), FLEXIBLE, TRANSORAL, DIAGNOSTIC 04/04/20 9:00 AM EDT Office Visit Cardiology, [facility] [address] [place] [address] Corrine Quinn PA-C [address] [place] [address] 05/11/20 10:15 AM EST Office Visit Ophthalmology, [facility] [address] [place] [address] Doyle Heredia, DO [address] [facility] [place] [address] 05/18/20 24 10:40 AM EST Office Visit Family [facility], [place] [address] [place] [address] Derrek Sparks MD [address] [place] [address] 05/18/20 24 1:00 PM EST Office Visit Dermatology, [place] [address] [place] [address] Sully Kearns, PAAmita [address] [place] [address] [place] [address] 06/12/20 10:30 AM EST Office Visit Rheumatology [facility] [address] [facility] [place] [address] Carlitos Castro CRNP [address] [facility] [place] [address] 12/15/19 9:00 AM EDT Home Visit Care at Home [address] [place], [place] [phone] Delmy Boggs PA-C [address] [place], [place] [phone] Scheduled Procedures Name Priority Associated Diagnoses Date/Ti [...] D LEVEL ONCE IN A LIFETIME-USE SMARTSET# 06344 Completed 12/03/2023, 06/22/2023, 06/01/2023, Additional history exists [...] this encounter Medical Devices Implanted Type Area Natural Resources Faculty Member Device Identifier Shelf Expiration Date Model / Serial / Lot Lead- 3 Implanted:Qt y: 1 on 01/26/[address] DO Lead Back 1295.04 07/28/2025 3005-50B / / Description:Implanted at [facility] Neurostimula tor-01/26/2023 Implanted: by Rashaad Street DO (Quantity not on file) Neurostimulator 1295.04 10/25/2025 [id number] / [id number] / Description:Nikita Cole Impl anted at [facility] Clip Quick 2.8mm 230cm - [id number] Implanted:Qt y: 4 on 11/14/2020 by Martina Cancino MD at ENDOSCOPY OSS [employer] 06/27/2023 HX-202UR. A / / Lens 19.5 [id number] - [id number] - [id number] Implanted:Qt y: 1 on 03/26/2021 by Doyle Heredia DO at OR [facility] Right: Eye BRII : SURGICAL 10/29/2025 [id number] / [id number] 37 / Lens 19.5 [id number] - [id number] - [id number] Implanted:Qt y: 1 on 03/11/2022 by Doyle Heredia DO at OR [facility] Left: Eye BRII : SURGICAL 10/29/2025 [id number] / [id number] 29 / documented as of this encounter Advance Directives * Full Code (Latest Code Status on File) Date Activated Date Inactivated Comments 03/11/2022 7:56 AM 03/11/2022 2:41 PM Question Answer Comments Discussion of Advance Direct donnie occurred with: Not Discussed due to patient's condition Care Teams Roof Bolter Operator Relationship Specialty Start Date End Date Derrek Sparks MD [address] [facility] [place] [address] PCP - General Family Medicine 08/04/22 documented as of this encounter
--- OUTSIDE RECORDS SUMMARY | 2024-02-07 19:39 | External Medical Summary | Summary of Care ---
Author Name Unknown Organization [facility] Address [address] [place] [address] Phone [phone] Care Team Providers Care Plant Pathology Teacher Name Role Phone Derrek Sparks MD Primary Care Provider +1- [phone] Reason for Visit * Reason Onset Date Comments Advice 01/12/2024 Encounter Details Date Type Department Care Team (Late st Contact Info) Description 01/12/2024 Telephone [facility] [address] [place] [address] Derrek Sparks MD [address] [place] [address] Advice Allergies Active Allergy Reactions [...] by mouth in the morning. 07/22/2020 Active OpenbayTouch Verio w/Device KitIndications:DM type 2 with diabetic peripheral neuropathy (HCC) Use to check blood sugars daily as directed E11.9 1 Kit 10/10/2020 Active [employer] Verio In Vitro Strip (Glucose Blood)Indications: DM [...] Oral Tablet (Coreg)Indications :Coronary artery disease involving [place] coronary artery of [place] heart without angina pectoris,HTN, goal below 140/90 [...] cancer 11/06/2019 Coronary artery disease invo lving [place] coronary artery of [place] heart without angina pectoris 07/04/2019 Senile osteoporosis [...] 36.9 with serious comorbidity 11/17/2018 Atherosclerosis of [place] co ronary artery of [place] heart without angina pectoris 11/17/201806/2021 Arteriosclerotic dementia [...] (Prevnar) 03/15/2018 Pneumococcal Conjugate Vacci ne, 20-valent ([id number]) 10/26/2023 Pneumococcal Conjugate Vacci ne, 7 Valent [...] Visit Care Coordination and Integration [address] [place] [address] Agustina Shafer, Community Health Data Processing Systems Consultant [address] [place] [address] 02/18/20 11:00 AM EDT Anticoagulation Pharmacy, [place] [address] [place] [address] [facility] [address] [place] [address] 02/24/20 2:00 PM EDT Hospital Encounter ENDO OSS, Endoscopy Room [facility] [address] [place] [address] Leonora Lui MD [address] [place] [address] 02/24/20 2:00 PM EDT - 02/24/20 2:30 PM EDT Surgery ENDO [facility], Endoscopy Room [facility] [address] [place] [address] Leonora Liu MD [address] [place] [address] ESOPHAGOGASTRODUODENOSCOPY (EGD), FLEXIBLE, TRANSORAL, DIAGNOSTIC 04/04/20 9:00 AM EDT Office Visit Cardiology, [facility] [address] [facility] [place] [address] Corrine Quinn PA-C [facility] [place] [place] [address] 05/11/20 10:15 AM EST Office Visit Ophthalmology, [facility] [address] [facility] [place] [address] Doyle Heredia, DO [address] [facility] [place] [address] 05/18/20 10:40 AM EST Office Visit [facility] [address] [facility], [place] [address] Derrek Sparks MD [address] [facility], [place] [address] 05/18/20 1:00 PM EST Office Visit Dermatology, [place] [address] [facility], [place] [address] Sully Kearns PA-C [address] [place] [address] [place] [address] 06/12/20 10:30 AM EST Office Visit Rheumatology [facility] [address] [facility] [place] [address] Carlitos Castro, BLAYNE [address] [facility] [place] [address] 12/15/19 9:00 AM EDT Home Visit Care at Home [address] [place] [address] Delmy Boggs PA-C [address] [place], [place] [phone] Scheduled Procedures Name Priority Associated Diagnoses Date/Ti [...] D LEVEL ONCE IN A LIFETIME-USE SMARTSET# 78324 Completed 12/03/2023, 06/22/2023, 06/01/2023, Additional history exists [...] this encounter Medical Devices Implanted Type Area Civil Defense Director Device Identifier Shelf Expiration Date Model / Serial / Lot Lead- 3 Implanted:Qt y: 1 on 01/26/[address] DO Lead Back 1295.04 07/28/2025 3005-50B / / Description:Implanted at [facility] Neurostimula tor-01/26/2023 Implanted: by Rashaad Street DO (Quantity not on file) Neurostimulator 1295.04 10/25/2025 [id number] / [id number] / Description:Nikita Soto anted at [facility] Clip Quick 2.8mm 230cm - [id number] Implanted:Qt y: 4 on 11/14/2020 by Martina Cancino MD at ENDOSCOPY [facility] [employer] 06/27/2023 HX-202UR. A / / Lens 19.5 [id number] - [id number] - [id number] Implanted:Qt y: 1 on 03/26/2021 by Doyle Heredia DO at OR [facility] Right: Eye BRII : SURGICAL 10/29/2025 [id number] / [id number] 37 / Lens 19.5 [id number] - [id number] - [id number] Implanted:Qt y: 1 on 03/11/2022 by Doyle Heredia, at OR [facility] Left: Eye BRII : SURGICAL 10/29/2025 [id number] / [id number] 29 / documented as of this encounter Advance Directives * Full Code (Latest Code Status on File) Date Activated Date Inactivated Comments 03/11/2022 7:56 AM 03/11/2022 2:41 PM Question Answer Comments Discussion of Advance Direct donnie occurred with: Not Discussed due to patient's condition Care Teams Plant Pathology Teacher Relationship Specialty Start Date End Date Derrek Sparks MD [address] [place] [facility] [place] [address] PCP - General Family Medicine 08/04/22 documented as of this encounter
--- OUTSIDE RECORDS SUMMARY | 2024-02-07 19:39 | External Medical Summary | Summary of Care ---
Author Name Unknown Organization [facility] Address [address] [place] [address] Phone [phone] Care Team Providers Care Chair Inspector Name Role Phone Derrek Sparks MD Primary Care Provider +1- [phone] Reason for Visit * Reason Onset Date Comments Patient Instructions 01/12/2024 EGD Encounter Details Date Type Department Care Team (Late st Contact Info) Description 01/12/2024 Telephone Gastroenterology, [facility] [address] [place] [address] Everette Alberto MD [address] [place] [address] Patient Instructions (EGD) Allergies Active Allergy Reactions Criticality Noted Date [...] by mouth in the morning. 07/22/2020 Active [employer] [email or web address] w/Device KitIndications:DM type 2 with diabetic peripheral neuropathy (HCC) Use to check blood sugars daily as directed E11.9 1 Kit 10/10/2020 Active [email or web address] In Vitro Strip (Glucose Blood)Indications: DM type [...] Oral Tablet (Coreg)Indications :Coronary artery disease involving [place] coronary artery of [place] heart without angina pectoris,HTN, goal below 140/90 [...] atrophy 12/14/2023 Food insecurity 11/08/2023 Overview: Per [facility] Protocol Hypertensive heart disease w [...] 11/06/2019 Coronary artery disease invo lving [place] coronary artery of [place] heart without angina pectoris 07/04/2019 Senile osteoporosis [...] of feces 01/25/20212023 Black tarry stools 01/25/2021 03/28/202 3 Overview: Noted in 2020 historical Postprocedural [...] with serious comorbidity 11/17/2018 Atherosclerosis of [place] co ronary artery of [place] heart without angina pectoris 11/17/201806/2021 Arteriosclerotic dementia [...] (Prevnar) 03/15/2018 Pneumococcal Conjugate Vacci ne, 20-valent ([id number]) 10/26/2023 Pneumococcal Conjugate Vacci ne, 7 Valent [...] Miscellaneous Notes * Telephone Encounter - Elodia Fitzpatrick OSA - 01/12/2024 10:26 AM EDT PATIENT INSTRUCTIONS FOR EGD 01/14/24 documented in this encounter Plan of Treatment Upcoming Encounters Date Type Department Care Team (Late st Contact Info) Description 01/14/2024 Hospital Encounter ENDO [facility], Endoscopy Room [facility] [address] [place] [address] Everette Alberto MD [address] [place] [address] 01/17/2024 11:00 AM EDT Home Visit Care Coordination and Integration [address] [facility] [place] [address] Agustina Shafer, Community Health Fish Cake Maker [address] [place] [address] 02/18/2024 11:00 AM EDT Anticoagulation Pharmacy, [place] [address] [place] [address] [place], [facility] [address] [place] [address] 04/04/2024 9:00 AM EDT Office Visit Cardiology, [facility] [address] [place] [address] Corrine Quinn PA-C [address] [place] [address] 05/11/2024 10:15 AM EST Office Visit Ophthalmology, [facility] [place] [address] Doyle Heredia, 21 [facility] [place] [address] 05/18/2024 10:40 AM EST Office Visit Family Practice, [place] [address] [place] [address] Derrek Sparks MD [address] [place] [address] 05/18/2024 1:00 PM EST Office Visit Dermatology, [place] [address] [place] [address] Sully Kearns PA-C [address] [place] [address] [place] [address] 06/12/2024 10:30 AM EST Office Visit Rheumatology [address] [place] [address] Carlitos Castro CRNP [address] [place] [address] [place] [address] 12/14/2024 9:00 AM EDT Home Visit Care at Home [address] [place] [address] Delmy Boggs PA-C [address] [place] [address] Scheduled Procedures Name Priority Associated Diagnoses Date/Ti me ESOPHAGOGASTRODUODENOSCOPY ( EGD), FLEXIBLE, TRANSORAL, DIAGNOSTIC Gastrointestinal hemorrhage with melena Anemia, unspecified type Abdominal pain, generalized Health Maintenance Due Date Last Done Comments [...] D LEVEL ONCE IN A LIFETIME-USE SMARTSET# 38924 Completed 12/03/2023, 06/22/2023, 06/01/2023, Additional history exists [...] encounter Medical Devices Implanted Type Area Car Cooper Device Identifier Shelf Expiration Date Model / Serial / Lot Lead- 3 Implanted:Qt y: 1 on 01/26/[address] DO Lead Back 1295.04 07/28/2025 3005-50B / / Description:Implanted at [facility] Neurostimula tor-01/26/2023 Implanted: by Rashaad Street DO (Quantity not on file) Neurostimulator 1295.04 10/25/2025 [id number] / [id number] / Description:Nikita Soto anted at [facility] Clip Quick 2.8mm 230cm - [id number] Implanted:Qt y: 4 on 11/14/2020 by Martina Cancino MD at ENDOSCOPY OSS [employer] 06/27/2023 HX-202UR. A / / Lens 19.5 [id number] - [id number] - [id number] Implanted:Qt y: 1 on 03/26/2021 by Doyle Heredia DO at OR [facility] Right: Eye BRII : SURGICAL 10/29/2025 [id number] / [id number] 37 / Lens 19.5 [id number] - [id number] - [id number] Implanted:Qt y: 1 on 03/11/2022 by Doyle Heredia DO at OR [facility] Left: Eye BRII : SURGICAL 10/29/2025 [id number] / [id number] 29 / documented as of this encounter Advance Directives * Full Code (Latest Code Status on File) Date Activated Date Inactivated Comments 03/11/2022 7:56 AM 03/11/2022 2:41 PM Question Answer Comments Discussion of Advance Direct donnie occurred with: Not Discussed due to patient's condition Care Teams Chair Inspector Relationship Specialty Start Date End Date Derrek Sparks MD [address] [place] [address] PCP - General Family Medicine 08/04/22 documented as of this encounter
[2024-02-07 19:55] LABS: BUN Creatinine Ratio 29.7 (10-20); Calcium 7.8 mg/dl (8.6-10.3); Creatinine Clr Calc Pharmacy 32.3 ml/min; Est GFR (African American) 36.5 ml/min; Est GFR (Non-African American) 31.5 ml/min; Potassium 4.8 mmol/L (3.5-5.1); Troponin I High Sensitivity 43.8 pg/ml (0-14)
--- NOTE | 2024-02-07 20:10 | Surgery Consultation ---
Date of Consultation February 07, 2024 Assessment & Plan (1) Sepsis: no obvious fourniers gangrene likely severe cystitis, possibly emphysematous IV abx await urology/nurse gynecology evaluation History of Present Illness Attending Physician: Guilherme Barton MD History of Present Illness This is a 78-year-old female with history of CAD, CHF, atrial fibrillation on Coumadin, diabetes type 2, hypertension, severe abdominal stenosis, UTI, TIA, chronic anemia, RA on methotrexate, hypothyroidism, GERD, breast cancer, who is admitted with sepsis and a UTI with associated diarrhea and weakness x [address] scan shows cystis with some scattered air. Allergies Allergy/AdvReac Type Severity Reaction Status Date / Time ABRIL Inhibitors AdvReac Severe hyperkalemi Verified 01/12/24 08:07 a nadolol AdvReac Unknown GI UPSET Verified 01/12/24 08:07 nitroglycerin AdvReac Unknown HEADACHE Verified 01/12/24 08:07 NSAIDS (Non-Steroidal AdvReac Unknown GI UPSET Verified 01/12/24 08:07 Anti-Inflamma metformin AdvReac Diarrhea Verified 01/12/24 08:07 Home Medications Medication Instructions Recorded Confirmed Type aspirin 81 mg tablet,delayed 81 mg PO QAM 04/02/18 02/07/24 History release (Ashly Low Dose Aspirin) acetaminophen 500 mg tablet 500 mg PO Q4H PRN Pain 10/02/21 02/07/24 History levothyroxine 25 mcg tablet 25 mcg PO QAM 10/02/21 02/07/24 History atorvastatin 80 mg tablet 80 mg PO DAILY 11/20/21 02/07/24 History ferrous sulfate 325 mg (65 mg 325 mg PO QAM 11/20/21 02/07/24 History iron) tablet carvedilol 25 mg tablet 37.5 mg PO AMPM 11/22/21 02/07/24 History clonidine HCl 0.1 mg tablet 0.1 mg PO AMHS 11/22/21 02/07/24 History sertraline 25 mg tablet 25 mg PO QAM 11/22/21 02/07/24 History terazosin 2 mg capsule 0 mg PO HS 11/22/21 02/07/24 History cholecalciferol (vitamin D3) 50 50 mcg PO DAILY 03/27/22 02/07/24 History mcg (2,000 unit) capsule (Vitamin D3) amlodipine 5 mg tablet 5 mg PO AMHS 01/05/24 02/07/24 History dicyclomine 10 mg capsule 10 mg PO BID PRN Abdominal Pain 01/05/24 02/07/24 History folic acid 1 mg tablet 1 mg PO DAILY 01/05/24 02/07/24 History furosemide 40 mg tablet 40 mg PO QAM 01/05/24 02/07/24 History hydralazine 100 mg tablet 0 mg PO TID 01/05/24 02/07/24 History methotrexate sodium 2.5 mg tablet 15 mg PO WK 01/05/24 02/07/24 History pregabalin 25 mg capsule 25 mg PO AMHS 01/05/24 02/07/24 History spironolactone 25 mg tablet 25 mg PO QAM 01/05/24 02/07/24 History warfarin 4 mg tablet (Jantoven) See Rx Instructions .Route .COMPLEX 01/05/24 02/07/24 History pantoprazole 40 mg tablet,delayed 40 mg PO BID #60 tabs 01/08/24 02/07/24 Rx release ascorbate calcium (vitamin C) 500 500 mg PO DAILY 01/10/24 02/07/24 History mg tablet magnesium hydroxide 400 mg/5 mL 5 ml PO DAILY PRN Constipation 01/10/24 02/07/24 History oral suspension (Dulcolax (magnesium hydroxide)) donepezil 5 mg tablet 5 mg PO DAILY #30 tabs 01/12/24 02/07/24 Rx Patient History Medical History Limb alert care status RUE limb restriction Aortic stenosis "Mild" per 12/2022 echo Sleep apnea no treatment History of COVID-19 x 01/2020 and 05/2020 while in [place] for rehab, denies residual issues Myocardial Infarction 1994, had a balloon angioplasty, [facility] Jung MRSA infection Hx-more than 1 year ago Atrial fibrillation with RVR f/u [facility] PAD (peripheral artery disease) severe right brachiocephalic stenosis and moderate to severe abdominal aortic stenosis- under surveillance by cardiovascular-on warfarin Chronic back pain LLE radiculopathy Rheumatoid arthritis Hiatal hernia CVA (cerebral vascular accident) 2016, residual unsteady, left sided weakness Surgical History History of surgery on left wrist "put a plate in for the arthritis" History of surgery Hematoma evacuation, stimulator check (11/20/21): Grade 1 view, MAC#3, ETT 7.0 at [facility]. No issues noted per post-op anesthesia progress note. S/P insertion of spinal cord stimulator placed in 2021, [facility]>has had it checked multiple times History of fracture of nasal bone no sx. History of shoulder replacement R Status post lumbar surgery History of back surgery x3, 2019 History of cardiac cath 2017 ([facility]) > no stents History of colonoscopy Family History Daughter Family history of reaction to anesthesia SLOW TO WAKE UP Mother Family history of diabetes mellitus Other Heart disease Hypertension Social History Smoking Status: Former smoker Second Hand Exposure: No; Do You Dip or Chew Tobacco: No; Hx Alcohol Use: No Hx Substance Use: No Preferred Language: Gabonese Communication Ability: Effective Visual Impairment: No Limitations Hearing Ability: Normal Licensed Therapist Required: No Beliefs That Will Affect Care: None marital status: Current Living Situation: Spouse current occupational status: retired Other Information That Helps Us Care for You: No Feels Safe at Home: Yes Safety Concerns: Feels Safe At This Time Assistive Devices: Denture - Upper, Denture - Lower and Walker Assistive Devices Comment: not with patient, at home Review of Systems Constitutional: + fever, + chills, + fatigue and + anore ethan Eyes: no problem reported Ear, Nose, Mouth, Throat: no problem reported Respiratory: no cough and no dyspnea Cardiovascular: no chest pain Gastrointestinal: + nausea and + diarrhea/loose stools; no abdominal pain, no vomiting and no blood in stools Genitourinary: + dysuria Musculoskeletal: no problem reported Integumentary: no problem reported Neurologic: + generalized weakness; no localized wea kness Psychiatric: no behavioral changes Endocrine: no problem reported Physical Exam Constitutional: WD/WN, vitals as above Eyes: PERRL, conjunctivae normal, anicteric sclerae ENMT: external ear and nose normal, oropharynx normal Neck: trachea midline Respiratory: no respiratory distress Cardiovascular: Rate/Rhythm: + tachycardic Gastrointestinal (Abdomen): normal bowel sounds, soft, nontender, no hepatosplenomegaly Musculoskeletal: Head/Neck/Chest: normocephalic and head atraumatic Skin: no rashes, warm and dry (perneal area without fluctuance, no crepitus) Psychiatric: Orientation: alert Results & Data Vital Signs (Past 12 Hours) Vital Signs Temp Pulse Pulse Resp BP BP Pulse Ox 02/07/24 19:39 82 98 02/07/24 19:38 36.4 C L 102/59 L 02/07/24 18:00 101/62 02/07/24 17:17 02/07/24 16:25 37 C 95 H 20 91/54 L 94 02/07/24 15:46 36 C L 76 20 87/66 L 95 02/07/24 14:04 36 C L 81 22 85/49 L 99 02/07/24 13:48 82 22 87/65 L 99 02/07/24 13:33 36.5 C 85 20 87/53 L 96 02/07/24 12:55 86 19 94/69 L 100 02/07/24 12:16 36.8 C 84 19 94/65 L 95 02/07/24 12:06 98 02/07/24 11:35 97 H 02/07/24 11:30 36.8 C 101 H 22 82/53 L 97 O2 Del Method 02/07/24 19:39 Room Air 02/07/24 19:38 02/07/24 18:00 02/07/24 17:17 Room Air 02/07/24 16:25 Room Air 02/07/24 15:46 Room Air 02/07/24 14:04 Room Air 02/07/24 13:48 Room Air 02/07/24 13:33 Room Air 02/07/24 12:55 Room Air 02/07/24 12:16 Room Air 02/07/24 12:06 Room Air 02/07/24 11:35 02/07/24 11:30 Room Air Diagnostic Findings ABDOMEN AND PELVIS CT WITHOUT CONTRAST CT DOSE: 1986.33 mGy.cm HISTORY: Diarrhea, sepsis TECHNIQUE: Multiaxial CT images of the abdomen and pelvis were performed without contrast. A dose lowering technique was utilized adhering to the principles of ALARA. COMPARISON STUDY: Abdomen and pelvis CT 01/05/2024. FINDINGS: Mild interstitial thickening at the lung bases which is likely chronic. There is mild elevation of the right hemidiaphragm, unchanged. The heart remains mildly enlarged. Extensive posterior decompression and fusion from L2 through S1 1 with pedicle screws and rods. Bilateral sacroiliac altered again noted with chronic compression deformities and vertebroplasty at T12 and L1. There is normal compression deformity noted at T11. Spinal stimulator leads are partially visualized. No acute fractures identified. Old left lower rib fractures are noted. The unenhanced liver, spleen, adrenal glands, and pancreas are unremarkable. Prior cholecystectomy. Stable left-sided nephrolithiasis. Stable 2 cm left renal hypodense lesion which favors a cyst. The left kidney is moderately atrophic. No ureteral stones. No hydronephrosis. There is a small hiatus hernia. Extensive calcified plaque within the normal caliber abdominal aorta. No retroperitoneal or pelvic lymphadenopathy. No pelvic free fluid. Mendez boptimal evaluation for bowel pathology due to the lack of intravenous and oral contrast. However, there is no definite bowel wall thickening or obstruction. Normal appendix. Colonic diverticulosis. No evidence for acute diverticulitis. Fluid-filled nondistended loops of large and small bowel. This can be seen in the setting of a diarrheal illness/gastroenteritis. Scattered small foci of gas seen within the perineum near the vaginal introitus/urethra. There is also small foci of gas extending in and around the vaginal wall, bladder wall, and myometrium of the uterus. There are small foci of scattered gas within the deep pelvis which appear to be within the surrounding pelvic veins. There is small focus of gas within the left common femoral vein. These findings are indeterminate and could be due to recent trauma/iatrogenic process such as insertion of a Granger or rectal catheter. However, a gas-forming organism also remains in the differential diagnosis raise the possibility of an emphysematous cystitis. IMPRESSION: 1. Scattered small foci of gas seen within the perineum near the vaginal introitus/urethra. There is also small foci of gas extending in and around the vaginal wall, bladder wall, and myometrium of the uterus. There are small foci of scattered gas within the deep pelvis which appear to be within the surrounding pelvic veins. There is small focus of gas within the left common femoral vein. These findings are indeterminate and could be due to recent trauma/iatrogenic process such as insertion of a Granger or rectal catheter. However, a gas-forming organism also remains in the differential diagnosis raising the possibility of an emphysematous cystitis. Therefore, clinical correlation recommended. 2. Fluid-filled nondistended loops of large and small bowel. This can be seen in the setting of a diarrheal illness/gastroenteritis. 3. Left-sided nephrolithiasis. No hydronephrosis. 4. Colonic diverticulosis. No evidence for acute diverticulitis. 5. Additional findings as described above. (1) Sepsis Acute renal failure type: unspecified Sepsis acute organ dysfunction status: with acute organ dysfunction Sepsis type: sepsis due to unspecified organism Severe sepsis acute organ dysfunction type: acute renal failure Severe sepsis shock status: with septic shock Qualified Code(s): A41.9 - Sepsis, unspecified organism; R65.21 - Severe sepsis with septic shock; N17.9 - Acute kidney failure, unspecified
[2024-02-07] MEDS: PHENAZOPYRIDINE HCL 100 MG TAB PO PRN (20:24)
[2024-02-07] MEDS: PANTOprazole 40 MG TAB PO SCH (20:25)
[2024-02-07] MEDS: PREGABALIN 25 MG CAP PO SCH (20:31)
[2024-02-07] MEDS ORDERED: NYSTATIN/TRIAMCIN OINT 30 GM TUBE EXT SCH (21:00)
[2024-02-07] MEDS: SODIUM BICARBONATE 8.4% 150 MEQ in SODIUM CHLORIDE 0.45 % 1,000 ML IV SCH (21:03)
--- NOTE | 2024-02-07 21:42 | Urology Consultation ---
Date of Consultation February 07, 2024 Assessment & Plan (1) Sepsis: (2) Emphysematous cystitis: (3) Severe sepsis: (4) Physical deconditioning: (5) Melena: (6) Diabetes mellitus, type II: (7) CAD (coronary artery disease): (8) Troponin level elevated: (9) Lactic acidosis: (10) Fecal incontinence: (11) Diarrhea: Plan Acute sepsis with concerns for pelvic subcutaneous air with air seen on CT imaging within the reproductive and system. Significant bowel inflammation and distention seen also on imaging after independently reviewing. Suspicious for possible emphysematous cystitis with air within the bladder lumen possibly within the bladder wall. Significant lactic acidosis with hypotension. Mild tachycardia which is improved with resuscitation. Patient independently assessed, examined, interviewed, and evaluated. Patient's vitals and labs were all reviewed. Lactic acidosis with lactic date on admission at 7.0 mildly improved to 6.9 on reassessment. White count markedly elevated 26.69. Creatinine was 1.55. Mildly improved from 1.74 earlier in the day. Normal creatinine runs around 0.9 - 1.0. All vitals were reviewed all labs were reviewed please see pertinent values in the HPI and plan section. Imaging was reviewed interpreted by myself. Small pockets of air seen throughout the pelvis. Patient had CT examination approximately a month ago marked change on CT imaging. No significant changes air within the bladder possibly within the bladder wall. Vitals were reviewed. Some mild improvement with resuscitation. Discussed findings extensively with patient. Reviewed with consulting physicians/team. Had recommended gynecologic assessment as the air within the reproductive system and in the pelvis may be early sign of developing pelvic abscess or necrotizing fasciitis. Patient was evaluated by gynecology please see their note for their full assessment. Patient's complicated medical and surgical history was reviewed and summarized above. Patient's surgical, medical, social, and family history were all reviewed with pertinent values as above. Discussed patient's current diagnosis as well as concerns and issues. Reviewed different options moving forward. Discussed potential risks and benefits as well as possible options and concerns. Discussed importance of continued resuscitation. Did review extensively with patient need for decompression of the bladder. Recommended Granger catheterization in order to clear the urine and allow complete drainage to improve stagnation of urine and drainage in order to allow improved treatment of likely ongoing infection. Did discuss possibility of a sending infection developing to pyelo-. Discussed concerns found on CT imaging. If patient does not improve or worsens will likely need repeat CT imaging of the pelvis in order to reassess to see if developing abscess or other issue. Would also need reevaluation of reproductive system. Patient major complaint is ongoing fecal incontinence with severe diarrhea. Had undergone micro assessment and per nursing is C. difficile negative. Patient is on broad-spectrum antibiotics and undergoing resuscitation. Had significant elevation of troponins. Is undergoing close management and monitoring by the hospitalist team Reviewed potential options and interventions. Discussed potential issues and concerns related to intervention if abscess does start to form or if there is concern for developing necrotizing fasciitis. Concern for possible anaerobic infection. Risk and benefits were discussed extensively with patient especially eventually with catheter placement for management of the urinary system. Patient also had significant history of diabetes. Blood sugars have been slightly improved with diabetic control. Has been tolerated fluid resuscitation. Is continuing to undergo antibiotic management. Will need to monitor culture results for further guidance on length of course for antibiotic treatment. Will plan to follow patient. History of Present Illness Attending Physician: Guilherme Barton MD History of Present Illness Hospitalist consultation for acutely ill and septic patient with severe diarrhea and dehydration with sepsis, lactic acidosis, elevated troponin. Concern for UTI/Pyelo with small pockets of gas throughout pelvis and bladder with possible involvement of the bladder lumen and bladder wall. Patient with significant bowel issues, discomfort, and ill feelings. Patient developed sudden onset of pain into abdomen going down and radiating into groin and back in waves comes and goes. Can be severe at times. Mild Altered mental status due to acute illness Discussed and reviewed patient's personal medical, surgical, social, and family history for any history of issues, infections, and disease. Spoke with hospitalist earlier due to findings of possible air in the pelvis and reproductive system as well as bladder. Also, discussed patient's medical/surgery history especially related to any history of urinary issues or disease. Patient is undergoing acute management for acute illness and is being admitted to undergo resuscitation. Hospitalist team has admitted and is undergoing observation with broad spectrum IV antibiotics. Gynecology also has assessed patient. Allergies Allergy/AdvReac Type Severity Reaction Status Date / Time ABRIL Inhibitors AdvReac Severe hyperkalemi Verified 01/12/24 08:07 a nadolol AdvReac Unknown GI UPSET Verified 01/12/24 08:07 nitroglycerin AdvReac Unknown HEADACHE Verified 01/12/24 08:07 NSAIDS (Non-Steroidal AdvReac Unknown GI UPSET Verified 01/12/24 08:07 Anti-Inflamma metformin AdvReac Diarrhea Verified 01/12/24 08:07 Home Medications Medication Instructions Recorded Confirmed Type aspirin 81 mg tablet,delayed 81 mg PO QAM 04/02/18 02/07/24 History release (Ashly Low Dose Aspirin) acetaminophen 500 mg tablet 500 mg PO Q4H PRN Pain 10/02/21 02/07/24 History levothyroxine 25 mcg tablet 25 mcg PO QAM 10/02/21 02/07/24 History atorvastatin 80 mg tablet 80 mg PO DAILY 11/20/21 02/07/24 History ferrous sulfate 325 mg (65 mg 325 mg PO QAM 11/20/21 02/07/24 History iron) tablet carvedilol 25 mg tablet 37.5 mg PO AMPM 11/22/21 02/07/24 History clonidine HCl 0.1 mg tablet 0.1 mg PO AMHS 11/22/21 02/07/24 History sertraline 25 mg tablet 25 mg PO QAM 11/22/21 02/07/24 History terazosin 2 mg capsule 0 mg PO HS 11/22/21 02/07/24 History cholecalciferol (vitamin D3) 50 50 mcg PO DAILY 03/27/22 02/07/24 History mcg (2,000 unit) capsule (Vitamin D3) amlodipine 5 mg tablet 5 mg PO AMHS 01/05/24 02/07/24 History dicyclomine 10 mg capsule 10 mg PO BID PRN Abdominal Pain 01/05/24 02/07/24 History folic acid 1 mg tablet 1 mg PO DAILY 01/05/24 02/07/24 History furosemide 40 mg tablet 40 mg PO QAM 01/05/24 02/07/24 History hydralazine 100 mg tablet 0 mg PO TID 01/05/24 02/07/24 History methotrexate sodium 2.5 mg tablet 15 mg PO WK 01/05/24 02/07/24 History pregabalin 25 mg capsule 25 mg PO AMHS 01/05/24 02/07/24 History spironolactone 25 mg tablet 25 mg PO QAM 01/05/24 02/07/24 History warfarin 4 mg tablet (Tristontoven) See Rx Instructions .Route .COMPLEX 01/05/24 02/07/24 History pantoprazole 40 mg tablet,delayed 40 mg PO BID #60 tabs 01/08/24 02/07/24 Rx release ascorbate calcium (vitamin C) 500 500 mg PO DAILY 01/10/24 02/07/24 History mg tablet magnesium hydroxide 400 mg/5 mL 5 ml PO DAILY PRN Constipation 01/10/24 02/07/24 History oral suspension (Dulcolax (magnesium hydroxide)) donepezil 5 mg tablet 5 mg PO DAILY #30 tabs 01/12/24 02/07/24 Rx Patient History Medical History Limb alert care status RUE limb restriction Aortic stenosis "Mild" per 12/2022 echo Sleep apnea no treatment History of COVID-19 x 01/2020 and 05/2020 while in [place] for rehab, denies residual issues Myocardial Infarction 1994, had a balloon angioplasty, [facility] Jung MRSA infection Hx-more than 1 year ago Atrial fibrillation with RVR f/u [facility] PAD (peripheral artery disease) severe right brachiocephalic stenosis and moderate to severe abdominal aortic stenosis- under surveillance by cardiovascular-on warfarin Chronic back pain LLE radiculopathy Rheumatoid arthritis Hiatal hernia CVA (cerebral vascular accident) 2016, residual unsteady, left sided weakness Surgical History History of surgery on left wrist "put a plate in for the arthritis" History of surgery Hematoma evacuation, stimulator check (11/20/21): Grade 1 view, MAC#3, ETT 7.0 at [facility]. No issues noted per post-op anesthesia progress note. S/P insertion of spinal cord stimulator placed in 2021, [facility]>has had it checked multiple times History of fracture of nasal bone no sx. History of shoulder replacement R Status post lumbar surgery History of back surgery x3, 2019 History of cardiac cath 2017 ([facility]) > no stents History of colonoscopy Family History Daughter Family history of reaction to anesthesia SLOW TO WAKE UP Mother Family history of diabetes mellitus Other Heart disease Hypertension Social History Smoking Status: Former smoker Second Hand Exposure: No; Do You Dip or Chew Tobacco: No; Hx Alcohol Use: No Hx Substance Use: No Preferred Language: Serbian Communication Ability: Effective Visual Impairment: No Limitations Hearing Ability: Normal Daytime Caregiver Required: No Beliefs That Will Affect Care: None marital status: Current Living Situation: Spouse current occupational status: retired Other Information That Helps Us Care for You: No Feels Safe at Home: Yes Safety Concerns: Feels Safe At This Time Assistive Devices: Denture - Upper, Denture - Lower and Walker Assistive Devices Comment: not with patient, at home Review of Systems Review of Systems: All systems reviewed & are unremarkable except as noted in HPI & below Limited due to patient illness Physical Exam Physical Exam: General: Acutely ill. Undergoing supportive management for acute severe infection. Mild chills/rigors HEENT: Normocephalic Atraumatic. Inspection normal. Cranial Nerves 2-12 Grossly intact. Nares are clear. Neck is supple. Normal inspection of face. Normal inspection of neck. Neurologic: No deficits on inspection. Baseline for motor function and sensory. Psychologic: Anxious, mild delirium secondary to illness Respiratory: Mild labored. No use of accessory muscles. No severe dyspnea. Cardiovascular: mild tachycardia Skin: Cuney and Dry. No rashes or visible lesions. Significant irritation of pelvic area skin, likely chemical secondary to severe bowel incontinence. Extremities: Moving without issues. No motor deficits on inspection Lymphatics: Mild edema Abdomen: Distended. No rebound or guarding. No significant suprapubic/flank tenderness : skin with mild excoriation, likely chemical secondary to bowel incontinence. Had topical cream placed by nursing right before examination. No crepitus. No significant fluctuance on external exam Results & Data Vital Signs (Past 12 Hours) Vital Signs Temp Pulse Pulse Resp BP BP Pulse Ox 02/07/24 19:39 82 98 02/07/24 19:38 36.4 C L 102/59 L 02/07/24 18:00 101/62 02/07/24 17:17 02/07/24 16:25 37 C 95 H 20 91/54 L 94 02/07/24 15:46 36 C L 76 20 87/66 L 95 02/07/24 14:04 36 C L 81 22 85/49 L 99 02/07/24 13:48 82 22 87/65 L 99 02/07/24 13:33 36.5 C 85 20 87/53 L 96 02/07/24 12:55 86 19 94/69 L 100 02/07/24 12:16 36.8 C 84 19 94/65 L 95 02/07/24 12:06 98 02/07/24 11:35 97 H 02/07/24 11:30 36.8 C 101 H 22 82/53 L 97 O2 Del Method 02/07/24 19:39 Room Air 02/07/24 19:38 02/07/24 18:00 02/07/24 17:17 Room Air 02/07/24 16:25 Room Air 02/07/24 15:46 Room Air 02/07/24 14:04 Room Air 02/07/24 13:48 Room Air 02/07/24 13:33 Room Air 02/07/24 12:55 Room Air 02/07/24 12:16 Room Air 02/07/24 12:06 Room Air 02/07/24 11:35 02/07/24 11:30 Room Air PG Care Time/CCT Total # of Minutes Spent Total Time Spent with Patient: Total time spent is greater than 50% in coordination of care (as documented) at patient's floor/unit and/or counseling patient: Coding Level of Care Code 44827 INT INP/OBS CARE 3/75MIN Diagnoses Sepsis A41.9; R65.21; N17.9 Acute renal failure type: unspecified Sepsis acute organ dysfunction status: with acute organ dysfunction Sepsis type: sepsis due to unspecified organism Severe sepsis acute organ dysfunction type: acute renal failure Severe sepsis shock status: with septic shock Emphysematous cystitis N30.80 Severe sepsis A41.9; R65.20 Physical deconditioning R53.81 Melena K92.1 Diabetes mellitus, type II E11.9 CAD (coronary artery disease) I25.10 Troponin level elevated R79.89 Lactic acidosis E87.20 Fecal incontinence R15.9 Diarrhea R19.7 (1) Sepsis Acute renal failure type: unspecified Sepsis acute organ dysfunction status: with acute organ dysfunction Sepsis type: sepsis due to unspecified organism Severe sepsis acute organ dysfunction type: acute renal failure Severe sepsis shock status: with septic shock Qualified Code(s): A41.9 - Sepsis, unspecified organism; R65.21 - Severe sepsis with septic shock; N17.9 - Acute kidney failure, unspecified
[2024-02-07] MEDS: LOPERAMIDE HCL 2 MG CAP PO STA (22:31)
[2024-02-07] MEDS: LANTUS PER UNIT CHARGE SC SCH (23:00)
[2024-02-08] MEDS: traMADol HCL 50 MG TABLET PO PRN (00:17)
[2024-02-08] MEDS: NYSTATIN/TRIAMCIN OINT 15 GM TUBE EXT SCH (00:18)
[2024-02-08 00:20] LABS: A calco-baum cmplx NotReported Not Detected (NotDetected); Bact fragilis Not Reported Not Detected (NotDetected); Blood Culture Id Panel See PCR Comment (NotDetected); C auris Not Reported Not Detected (NotDetected); CTX-M Resistant Gene Not Detected (NotDetected); Calbicans Not Reported Not Detected (NotDetected); Candida glabrata Not Reported Not Detected (NotDetected); Candida krusei Not Reported Not Detected (NotDetected); Cneoformans/gatti Not Reported Not Detected (NotDetected); Cparapsilosis Not Reported Not Detected (NotDetected); E cloacae compx Not Reported Not Detected (NotDetected); Efaecalis Not Reported Not Detected (NotDetected); Efaecium Not Reported Not Detected (NotDetected); Enterobacterales DETECTED (NotDetected); Enterobacterales Not Reported DETECTED (NotDetected); Escherichia coli Not Reported DETECTED (NotDetected); H influenzae Not Reported Not Detected (NotDetected); IMP Resistant Gene Not Detected (NotDetected); K aerogenes Not Reported Not Detected (NotDetected); KPC Resistant Gene Not Detected (NotDetected); Koxytoca Not Reported Not Detected (NotDetected); Kpneumoniae grp Not Reported Not Detected (NotDetected); Lmonocyt Not Reported Not Detected (NotDetected); N meningitidis Not Reported Not Detected (NotDetected); NDM Resistant Gene Not Detected (NotDetected); OXA 48 Like Resistant Gene Not Detected (NotDetected); P aeruginosa Not Reported Not Detected (NotDetected); Proteus spp Not Reported Not Detected (NotDetected); Salmonella spp Not Reported Not Detected (NotDetected); Staph lugdunensis Not Reported Not Detected (NotDetected); Staph spp. Not Reported Not Detected (NotDetected); Staphaureus Not Reported Not Detected (NotDetected); Staphepi Not Reported Not Detected (NotDetected); Stenmaltophilia Not Reported Not Detected (NotDetected); Strep agal(GrpB) Not Reported Not Detected (NotDetected); Strep pneum Not Reported Not Detected (NotDetected); Strep pyog (GrpA) Not Reported Not Detected (NotDetected); Strep spp Not Reported Not Detected (NotDetected); VIM Resistant Gene Not Detected (NotDetected); mcr-1 Colistin Resistant Gene Not Detected (NotDetected)
[2024-02-08] MEDS: INSULIN ASPART PER UNIT CHARGE SC SCH (00:45)
[2024-02-08] MEDS: MoRPHine SULFATE 2 MG/ML CARP IV STA (03:49)
[2024-02-08 04:50] LABS: Albumin Level 3.1 gm/dl (3.4-5.0); Alkaline Phosphatase 76 U/L (34-104); Anion Gap 7 (3-11); BUN Creatinine Ratio 35.4 (10-20); Blood Urea Nitrogen 40 mg/dl (6-23); Calcium 6.6 mg/dl (8.6-10.3); Carbon Dioxide 32 mmol/L (21-32); Chloride 100 mmol/L (98-107); Creatinine Clr Calc Pharmacy 44.3 ml/min; Est GFR (African American) 53.5 ml/min; Est GFR (Non-African American) 46.2 ml/min; Glucose 130 mg/dl (70-99(Fasting)); Potassium 3.2 mmol/L (3.5-5.1); Sodium 139 mmol/L (136-145)
[2024-02-08 05:02] LABS: Prothrombin Time > 90.0 Seconds (9.0-12.0)
[2024-02-08 05:04] LABS: Alanine Aminotransferase > 2500 U/L (7-52); Aspartate Aminotransferase 8328 U/L (13-39); Troponin I High Sensitivity 41.3 pg/ml (0-14)
[2024-02-08 05:05] LABS: Hematocrit (blood only) 26.1 % (37.0-47.0); Hemoglobin 8.9 g/dl (12.0-16.0); Mean Corpuscular Hemoglobin 34.5 pg (25.0-34.0); Mean Corpuscular Hgb Conc 34.1 g/dL (32.0-36.0); Mean Corpuscular Volume 101.2 fL (80.0-100.0); Nucleated RBC # (auto) 0.02 K/uL (0.00-0.12); Nucleated RBC % (auto) 0.1 %; Platelet Count 78 K/uL (130-400); RDW Coefficient of Variation 14.6 % (11.5-14.5); RDW Standard Deviation 52.7 fL (36.4-46.3); Red Blood Count 2.58 M/uL (4.20-5.40); White Blood Count 18.51 K/ul (4.8-10.8)
[2024-02-08 05:06] LABS: Basophils # (auto) 0.03 K/uL (0.00-0.20); Basophils % (auto) 0.2 %; Dohle Bodies 1+; Eosinophils # (auto) 0.03 K/uL (0.00-0.50); Eosinophils % (auto) 0.2 %; Immature Granulocytes # (auto) 0.68 K/uL (0.01-0.20); Immature Granulocytes % (auto) 3.7 %; Lymphocytes # (auto) 0.69 K/uL (1.20-3.40); Lymphocytes % (auto) 3.7 %; Monocytes # (auto) 0.45 K/uL (0.11-0.59); Monocytes % (auto) 2.4 %; Neutrophils # (auto) 16.63 K/uL (1.40-6.50); Neutrophils % (auto) 89.8 %; Platelet Estimate Decreased (Normal); Polychromasia 1+
[2024-02-08] MEDS: CALCIUM GLUCONATE 1,000 MG/60 ML BAG IV SCH (05:53)
[2024-02-08 06:01] LABS: INR > 9.5 (0.9-1.1)
[2024-02-08] MEDS: LEVOTHYROXINE SODIUM 25 MCG TABLET PO SCH (06:23)
[2024-02-08] MEDS: POTASSIUM CHLORIDE CRTAB 20 MEQ TABCR PO STA (06:24)
[2024-02-08] MEDS: PHYTONADIONE 10 MG in DEXTROSE 5% 50 ML IV ONE (06:34)
[2024-02-08 06:58] LABS: Estimated Average Glucose 166 mg/dl; Hemoglobin A1C 7.4 % (4.5-5.6)
--- NOTE | 2024-02-08 07:00 | Critical Care Consultation ---
Date of Consultation February 08, 2024 Assessment & Plan (1) Acute liver failure: Impression: 78-year-old female with multiple comorbidities presents to the ICU with severe sepsis due to cystitis, and you development of liver failure. Patient requested monitoring and ICU by gastroenterology this a.m. Neuro - Depressioncontinue Zoloft Cardiac - Currently hemodynamically stable without use of vasopressor support. Previous history of diastolic heart failure with normal EF. Stable at this time. Cont inuous monitoring on telemetry - Patient was noted to have chest pain with no ST elevation on EKG. Troponin pending. Monitor for now Atrial fibrillationpatient with persistent atrial fibrillation currently rate controlled on monitor. Coumadin hold hold due to supratherapeutic INR. CADcontinue ASA Respiratory - No history of pulmonary disease. Currently maintaining oxygen saturation on ro om air. Chest x-ray unremarkable. Continuous monitoring pulse ox GI - N.p.o. for now GERD Continue PPI Acute liver failurepatient with significantly elevated ALT and AST which were normal on admission, along with total bilirubin of 5. CT abdomen and pelvis with previous cholecystectomy, and no note of liver disease. - GI consulted and suspects shock liver in the setting of sepsis/hypotension - Will order portal vein duplex to rule out thrombus - Acetaminophen level pending - Acute hepatitis panel pending - Follow GI recommendations -Trend LFTs RENAL/LYTES - Creatinine within normal limits. Monitor routine BMPs and replete electrolytes as indicated - Foleystrict I's and O's Emphysematous cystitispatient noted to have evidence of air within the bladder on the CT abdomen and pelvis. Urology following. Continue broad-spectrum antibiotic coverage. ENDO - DM type II Continue basal bolus/sliding scale. ICU hyperglycemic protocol HypothyroidismContinue Synthroid. Rheumatoid arthritisstable. Methotrexate on hold due to underlying liver disease. HEME - Anemiacontinue folic acid, ferrous sulfate. H&H stable, monitor routine CBC Supratherapeutic INRCoumadin on hold. INR this a.m. greater than 9.5. 10 mg IV vitamin K administered. No evidence of bleeding at this time. Will monitor closely ID - Sepsislikely urinary source given findings of urinalysis with +4 bacteria and evidence of cystitis on CT abdomen and pelvis. - Continue broad-spectrum coverage with meropenem. - Urine culture and blood cultures pending. LINES/IV ACCESS - Peripheral IVs DVT PROPHYLAXIS - SCDs, Coumadin on hold due to supratherapeutic INR CODE STATUS: Full code Thank you for allowing us to participate in the care of this patient. Please refer to my attending physician's documentation for any further recommendations. (2) Sepsis: (3) (HFpEF) heart failure with preserved ejection fraction: (4) Lactic acidosis: (5) Emphysematous cystitis: (6) Hypothyroidism: (7) Rheumatoid arthritis: (8) PAF (paroxysmal atrial fibrillation): (9) Diabetes mellitus, type II: (10) GERD (gastroesophageal reflux disease): Supervising Physician Co-Signing Physician Notes I have personally evaluated and examined this patient. I agree with assessment and plan of Gloria CISNEROS. Reviewed ID consult, transition from meropenem to cefepime -Given 10 mg IV vitamin K -Ammonia elevated however patient alert and oriented during my exam History of Present Illness Attending Physician: Guilherme Barton MD History of Present Illness Patient is a 78-year-old female with past medical history significant for atrial fibrillation (anticoagulated on Coumadin), DM type II, CHF, CAD, HTN, TIA, anemia, RA (on methotrexate), hypothyroidism, GERD [facility] with complaints of diarrhea and weakness x 1 week and urinary symptoms x [address] abdomen and pelvis showed cystitis with some scattered air, possible emphysematous. Initially hypotensive, but responded to fluid resuscitation. Yesterday evening patient was seen by General surgery he felt air seen on CT abdomen pelvis likely due to severe cystitis, with no obvious gangrene. Patient was also evaluated by gynecology and urology yesterday evening. He she was undergoing treatment for complicated UTI with sepsis with broad-spectrum antibiotics. This morning I was notified by the patient's primary team that she had developed worsening liver dysfunction With AST 8328, ALT greater than 2500, and total bilirubin of 5.0. She was also noted to have supratherapeutic INR greater than 9.5 and was given 10 mg IV vitamin K. Her lactic acid is continuing to trend down and currently still a little elevated at 2.2. No liver disease noted on previous CT abdomen and pelvis from yesterday, but she was noted to have previous cholecystectomy. Primary team did speak with gastroenterology who recommended closer monitoring of the patient in the ICU for which she is now being transferred. On arrival to the ICU the patient is alert and oriented, And hemodynamically stable without need for vasopressor support. She is without acute distress but does complain of poor appetite, substernal chest pain which is new as of this morning, and right upper and lower quadrant abdominal pain. She reaffirms that she has had diarrhea for the past week and urinary symptoms for the past 4 days. She also states that she had dizziness and weakness at home prior to hospitalization. She currently denies any dizziness or syncope, headaches, Cough or congestion, fevers, shortness of breath, vomiting, changes in gait, swelling in hands or feet. Allergies Allergy/AdvReac Type Severity Reaction Status Date / Time ABRIL Inhibitors AdvReac Severe hyperkalemi Verified 01/12/24 08:07 a nadolol AdvReac Unknown GI UPSET Verified 01/12/24 08:07 nitroglycerin AdvReac Unknown HEADACHE Verified 01/12/24 08:07 NSAIDS (Non-Steroidal AdvReac Unknown GI UPSET Verified 01/12/24 08:07 Anti-Inflamma metformin AdvReac Diarrhea Verified 01/12/24 08:07 Home Medications Medication Instructions Recorded Confirmed Type aspirin 81 mg tablet,delayed 81 mg PO QAM 04/02/18 02/07/24 History release (Ashly Low Dose Aspirin) acetaminophen 500 mg tablet 500 mg PO Q4H PRN Pain 10/02/21 02/07/24 History levothyroxine 25 mcg tablet 25 mcg PO QAM 10/02/21 02/07/24 History atorvastatin 80 mg tablet 80 mg PO DAILY 11/20/21 02/07/24 History ferrous sulfate 325 mg (65 mg 325 mg PO QAM 11/20/21 02/07/24 History iron) tablet carvedilol 25 mg tablet 37.5 mg PO AMPM 11/22/21 02/07/24 History clonidine HCl 0.1 mg tablet 0.1 mg PO AMHS 11/22/21 02/07/24 History sertraline 25 mg tablet 25 mg PO QAM 11/22/21 02/07/24 History terazosin 2 mg capsule 0 mg PO HS 11/22/21 02/07/24 History cholecalciferol (vitamin D3) 50 50 mcg PO DAILY 03/27/22 02/07/24 History mcg (2,000 unit) capsule (Vitamin D3) amlodipine 5 mg tablet 5 mg PO AMHS 01/05/24 02/07/24 History dicyclomine 10 mg capsule 10 mg PO BID PRN Abdominal Pain 01/05/24 02/07/24 History folic acid 1 mg tablet 1 mg PO DAILY 01/05/24 02/07/24 History furosemide 40 mg tablet 40 mg PO QAM 01/05/24 02/07/24 History hydralazine 100 mg tablet 0 mg PO TID 01/05/24 02/07/24 History methotrexate sodium 2.5 mg tablet 15 mg PO WK 01/05/24 02/07/24 History pregabalin 25 mg capsule 25 mg PO AMHS 01/05/24 02/07/24 History spironolactone 25 mg tablet 25 mg PO QAM 01/05/24 02/07/24 History warfarin 4 mg tablet (Jantoven) See Rx Instructions .Route .COMPLEX 01/05/24 02/07/24 History pantoprazole 40 mg tablet,delayed 40 mg PO BID #60 tabs 01/08/24 02/07/24 Rx release ascorbate calcium (vitamin C) 500 500 mg PO DAILY 01/10/24 02/07/24 History mg tablet magnesium hydroxide 400 mg/5 mL 5 ml PO DAILY PRN Constipation 01/10/24 02/07/24 History oral suspension (Dulcolax (magnesium hydroxide)) donepezil 5 mg tablet 5 mg PO DAILY #30 tabs 01/12/24 02/07/24 Rx Patient History Medical History Limb alert care status RUE limb restriction Aortic stenosis "Mild" per 12/2022 echo Sleep apnea no treatment History of COVID-19 x 01/2020 and 05/2020 while in [place] for rehab, denies residual issues Myocardial Infarction 1994, had a balloon angioplasty, [facility] MRSA infection Hx-more than 1 year ago Atrial fibrillation with RVR f/u [facility] PAD (peripheral artery disease) severe right brachiocephalic stenosis and moderate to severe abdominal aortic stenosis- under surveillance by cardiovascular-on warfarin Chronic back pain LLE radiculopathy Rheumatoid arthritis Hiatal hernia CVA (cerebral vascular accident) 2016, residual unsteady, left sided weakness Surgical History History of surgery on left wrist "put a plate in for the arthritis" History of surgery Hematoma evacuation, stimulator check (11/20/21): Grade 1 view, MAC#3, ETT 7.0 at [facility]. No issues noted per post-op anesthesia progress note. S/P insertion of spinal cord stimulator placed in 2021, [facility]>has had it checked multiple times History of fracture of nasal bone no sx. History of shoulder replacement R Status post lumbar surgery History of back surgery x3, 2019 History of cardiac cath 2017 ([facility]) > no stents History of colonoscopy Family History Daughter Family history of reaction to anesthesia SLOW TO WAKE UP Mother Family history of diabetes mellitus Other Heart disease Hypertension Social History Smoking Status: Former smoker Second Hand Exposure: No; Do You Dip or Chew Tobacco: No; Hx Alcohol Use: No Hx Substance Use: No Preferred Language: Swedish Communication Ability: Effective Visual Impairment: No Limitations Hearing Ability: Normal 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: No Beliefs That Will Affect Care: None marital status: Current Living Situation: Spouse current occupational status: retired Other Information That Helps Us Care for You: No Feels Safe at Home: Yes Safety Concerns: Feels Safe At This Time Assistive Devices: Bedside Commode, Walker and Wheelchair Assistive Devices Comment: not with patient, at home Review of Systems Review of Systems: All systems reviewed & are unremarkable except as noted in HPI & below Physical Exam Constitutional: cooperative and comfortable Eyes: PERRL, conjunctivae normal, anicteric sclerae ENMT: external ear and nose normal, oropharynx normal Neck: trachea midline, no thyromegaly Respiratory: normal respiratory effort, lungs clear to auscultation Cardiovascular: RRR, no murmur, no edema Heart Sounds: normal S1 and normal S2; no murmur Extremities: no edema Gastrointestinal (Abdomen): Abdomen soft, flat, patient is tender to the right upper quadrant with palpation without guarding. Normal bowel sounds Musculoskeletal: no cyanosis or clubbing, extremities motor strength 5/5 Skin: no rashes, warm and dry Neurologic: PERRL, EOMI, accommodation nl, no face palsy, no dysarthria Psychiatric: A+Ox3, euthymic affect Results & Data Results & Data Vital Signs (Past 12 Hours) Vital Signs Temp Pulse Pulse Pulse Resp BP Pulse Ox 02/08/24 06:39 92 H 02/08/24 06:05 36.5 C 88 18 141/70 H 97 02/08/24 03:27 36.4 C L 86 16 104/67 95 02/07/24 23:26 36.7 C 85 14 110/66 96 02/07/24 22:00 87 02/07/24 19:39 82 98 02/07/24 19:38 36.4 C L 102/59 L 02/07/24 19:15 O2 Del Method O2 Flow Rate 02/08/24 06:39 02/08/24 06:05 Nasal Cannula 1 02/08/24 03:27 Room Air 02/07/24 23:26 Room Air 02/07/24 22:00 02/07/24 19:39 Room Air 02/07/24 19:38 02/07/24 19:15 Room Air Coding Level of Care Code 97931 IN/OBS CONSULT LVL 3,45M Diagnoses Acute liver failure K72.00 Sepsis A41.9; R65.21; N17.9 Acute renal failure type: unspecified Sepsis acute organ dysfunction status: with acute organ dysfunction Sepsis type: sepsis due to unspecified organism Severe sepsis acute organ dysfunction type: acute renal failure Severe sepsis shock status: with septic shock (HFpEF) heart failure with preserved ejection fraction I50.30 Lactic acidosis E87.20 Emphysematous cystitis N30.80 Hypothyroidism E03.9 Rheumatoid arthritis M06.9 PAF (paroxysmal atrial fibrillation) I48.0 Diabetes mellitus, type II E11.9 GERD (gastroesophageal reflux disease) K21.9 Time Spent (min) 56 (2) Sepsis Acute renal failure type: unspecified Sepsis acute organ dysfunction status: with acute organ dysfunction Sepsis type: sepsis due to unspecified organism Severe sepsis acute organ dysfunction type: acute renal failure Severe sepsis shock status: with septic shock Qualified Code(s): A41.9 - Sepsis, unspecified organism; R65.21 - Severe sepsis with septic shock; N17.9 - Acute kidney failure, unspecified
[2024-02-08 07:04] LABS: Base Excess VBG -2.5 mEq/L; HCO3 VBG 23 mmol/L; Oxygen Saturation VBG < 60.0 %; PCO2 VBG 39 mmHg (38-50); PO2 VBG 32 mmHg; pH VBG 7.37 (7.36-7.41)
[2024-02-08 07:40] LABS: Acetaminophen < 3 ug/ml (10-30); Salicylate < 3.0 mg/dl (3.0-30)
--- NOTE | 2024-02-08 07:57 | Hospitalist Progress Note ---
Date of Service February 08, 2024 Assessment & Plan (1) Severe sepsis: (2) Emphysematous cystitis: (3) Lactic acidosis: (4) Troponin level elevated: (5) (HFpEF) heart failure with preserved ejection fraction: (6) Permanent atrial fibrillation: (7) Diabetes mellitus, type II: Plan: 78-year-old female with history of CAD, CHF with preserved ejection fraction, atrial fibrillation on Coumadin, diabetes type 2, hypertension, severe abdominal stenosis, UTI, TIA, chronic anemia, RA on methotrexate, hypothyroidism, GERD, breast cancer, presenting with diarrhea and weakness x 1 week. 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 difficile PCR negative Chest x-ray no pneumonia MRSA swab negative Bio fire noting E coli in blood without suggestion of ESBL (CTX-M gene negative) Continue IV NSS at 100 cc/h Imipenem 250 mg every 8 hours- switched to Cefepime per ID recs ID consulted, appreciate recs [employer] consulted appreciate recs General Surgery consulted, appreciate recs urology consulted, appreciate recs Hypotension secondary to #1 Continue IV normal saline s/p Mechanical Fall secondary to Weakness Xray chest ordered- no acute fractures Lidoderm patch, PRN Tylenol Anion gap metabolic acidosis secondary to lactic acidosis Management per #1 Acute kidney injury on CKD stage III secondary to sepsis, likely prerenal etiology CT abdomen pelvis: No obstruction Continue IV NSS Nephrology consulted, appreciate recs Troponin elevation likely secondary to demand ischemia, severe sepsis Denies cardiac symptoms trop 112,peaked and downtrending EKG no signs of ischemia Echocardiogram with no wall motion abn Continue telemetry monitoring Indirect bilirubinemia CT abdomen/pelvis: Liver unremarkable Likely secondary to sepsis Continue liver panel daily Worsening, GI consulted likely shock liver, recommended pt be transferred to the ICU monitor mental status- if worsening will need tertiary care transfer Coronary disease Continue aspirin and Lipitor Hold off on carvedilol in light of hypotension CHF with preserved ejection fraction Currently dehydrated Hold Lasix, spironolactone Atrial fibrillation Heart rate controlled INR 4.1, hold Coumadin INR daily Hold carvedilol until blood pressure stable Hypertension Hold clonidine, terazosin, amlodipine, hydralazine in light of hypotension and sepsis Diabetes type 2 Insulin sliding scale Pharmacy glycemic consult Chronic anemia Hemoglobin stable Continue ferrous sulfate, folic acid Rheumatoid arthritis On methotrexate-hold until infection has been treated Other chronic conditions Hypothyroidism GERD History of breast cancer Severe abdominal aortic aneurysm DVT prophylaxis INR 4.0, Coumadin on hold CODE STATUS Full code Disposition Will need PT and OT evaluation Currently in the ICU requiring critical care Admission and Anticipated Discharge Date Admission Date: February 07, 2024 Subjective Pt currently admitted to the ICU. Seen while there. States she feels tired. Review of Systems Review of Systems: All systems reviewed & are unremarkable except as noted in Subjective Physical Exam Physical Exam: General: Alert, oriented. Skin: No noted rashes or bruises Psych: Appropriate mood and affect HEENT: NC/AT CV: RRR Resp: Breath sounds clear bilaterally, no increased effort of breathing. Abdomen: Soft, tender Extremities: No edema in lower extremities bilaterally. Results & Data Results & Data Vital Signs (Past 12 Hours) Vital Signs Temp Pulse Pulse Pulse Resp BP Pulse Ox 02/08/24 07:00 36.7 C 88 15 139/83 93 02/08/24 06:39 92 H 02/08/24 06:05 36.5 C 88 18 141/70 H 97 02/08/24 03:27 36.4 C L 86 16 104/67 95 02/07/24 23:26 36.7 C 85 14 110/66 96 02/07/24 22:00 87 O2 Del Method O2 Flow Rate 02/08/24 07:00 Room Air 02/08/24 06:39 02/08/24 06:05 Nasal Cannula 1 02/08/24 03:27 Room Air 02/07/24 23:26 Room Air 02/07/24 22:00 Diagnostic Findings Chest X-Ray 02/07/24 11:27 XR chest 1V portable CLINICAL HISTORY: Sepsis TECHNIQUE: Single frontal radiograph of the chest was obtained. Comparison: Comparison is made to chest radiograph 01/06/2023 FINDINGS: Right shoulder arthroplasty is seen. Calcified aortic knob is seen. The lungs are clear. Elevation of the right hemidiaphragm is again seen. No evidence of pleural effusion or pneumothorax. IMPRESSION: No acute chest disease. ACT 112: Negative or not required by law. Electronically signed by: Ajay Arnold M.D. 02/07/2024 12:10 PM Abdomen/Pelvis CT 02/07/24 12:[address] WITHOUT CONTRAST CT DOSE: 1986.33 mGy.cm HISTORY: Diarrhea, sepsis TECHNIQUE: Multiaxial CT images of the abdomen and pelvis were performed without contrast. A dose lowering technique was utilized adhering to the principles of ALARA. COMPARISON STUDY: Abdomen and pelvis CT 01/05/2024. FINDINGS: Mild interstitial thickening at the lung bases which is likely chronic. There is mild elevation of the right hemidiaphragm, unchanged. The heart remains mildly enlarged. Extensive posterior decompression and fusion from L2 through S1 1 with pedicle screws and rods. Bilateral sacroiliac altered again noted with chronic compression deformities and vertebroplasty at T12 and L1. There is normal compression deformity noted at T11. Spinal stimulator leads are partially visualized. No acute fractures identified. Old left lower rib fractures are noted. The unenhanced liver, spleen, adrenal glands, and pancreas are unremarkable. Prior cholecystectomy. Stable left-sided nephrolithiasis. Stable 2 cm left renal hypodense lesion which favors a cyst. The left kidney is moderately atrophic. No ureteral stones. No hydronephrosis. There is a small hiatus hernia. Extensive calcified plaque within the normal caliber abdominal aorta. No retroperitoneal or pelvic lymphadenopathy. No pelvic free fluid. Suboptimal evaluation for bowel pathology due to the lack of intravenous and oral contrast. However, there is no definite bowel wall thickening or obstruction. Normal appendix. Colonic diverticulosis. No evidence for acute diverticulitis. Fluid-filled nondistended loops of large and small bowel. This can be seen in the setting of a diarrheal illness/gastroenteritis. Scattered small foci of gas seen within the perineum near the vaginal introitus/urethra. There is also small foci of gas extending in and around the vaginal wall, bladder wall, and myometrium of the uterus. There are small foci of scattered gas within the deep pelvis which appear to be within the surrounding pelvic veins. There is small focus of gas within the left common femoral vein. These findings are indeterminate and could be due to recent trauma/iatrogenic process such as insertion of a Granger or rectal catheter. However, a gas-forming organism also remains in the differential diagnosis raise the possibility of an emphysematous cystitis. IMPRESSION: 1. Scattered small foci of gas seen within the perineum near the vaginal introitus/urethra. There is also small foci of gas extending in and around the vaginal wall, bladder wall, and myometrium of the uterus. There are small foci of scattered gas within the deep pelvis which appear to be within the surrounding pelvic veins. There is small focus of gas within the left common femoral vein. These findings are indeterminate and could be due to recent trauma/iatrogenic process such as insertion of a Granger or rectal catheter. However, a gas-forming organism also remains in the differential diagnosis raising the possibility of an emphysematous cystitis. Therefore, clinical correlation recommended. 2. Fluid-filled nondistended loops of large and small bowel. This can be seen in the setting of a diarrheal illness/gastroenteritis. 3. Left-sided nephrolithiasis. No hydronephrosis. 4. Colonic diverticulosis. No evidence for acute diverticulitis. 5. Additional findings as described above. ACT 112: Negative or not required by law. Electronically signed by: Shaun Abreu M.D. 02/07/2024 1:19 PM Portal Vein US 02/08/24 07:14 US duplex portal hepatic veins HISTORY: 78 years-old Female Acute liver failure COMPARISON: CT 02/07/2024 TECHNIQUE: Multiple real-time sonographic images of the hepatic vasculature were obtained assessing grayscale appearance, color and spectral flow FINDINGS: Patent hepatic and portal veins with portal hepatopedal flow. Patent hepatic artery with low resistance waveforms. Common bile duct measures up to 7 mm, unchanged status post cholecystectomy. IMPRESSION: 1. Patent portal vein. 2. Mild biliary ductal dilation again noted status post cholecystectomy. ACT 112: Negative or not required by law. The above report was generated using voice recognition software. It may contain grammatical, syntax or spelling errors. Electronically signed by: Monty Juarez M.D. 02/08/2024 8:33 AM
[2024-02-08] MEDS: ASPIRIN 81 MG ECTAB PO SCH (08:33)
--- NOTE | 2024-02-08 08:34 | Ultrasound Report ---
US duplex portal hepatic veins HISTORY: 78 years-old Female Acute liver failure COMPARISON: CT 02/07/2024 TECHNIQUE: Multiple real-time sonographic images of the hepatic vasculature were obtained assessing g rayscale appearance, color and spectral flow FINDINGS: Patent hepatic and portal veins with portal hepatopedal flow. Patent hepatic artery with low resistan ce waveforms. Common bile duct measures up to 7 mm, unchanged status post cholecystectomy. IMPRESSION: 1. Patent portal vein. 2. Mild biliary ductal dilation again noted status post cholecystectomy. ACT 112: Negative or not required by law. The above report was generated using voice recognition software. It may contain grammatical, syntax o r spelling errors. Electronically signed by: Monty Juarez M.D. 02/08/2024 8:33 AM
[2024-02-08] MEDS ORDERED: ATORVASTATIN 40 MG TAB PO SCH (09:00)
[2024-02-08 09:35] LABS: Hep B Surface Ag with confirm Negative (Negative)
[2024-02-08 09:40] LABS: Hep C Ab Rflx HepCQuant RNA Negative (Negative)
--- NOTE | 2024-02-08 09:46 | Surgery Progress Note ---
Date of Service February 08, 2024 Assessment & Plan (1) Emphysematous cystitis: Plan: no obvious perineal infection con't abx if does not respond to treatment possible repeat CT scan of pelvis Admission and Anticipated Discharge Date Admission Date: February 07, 2024 Subjective patient feels about the same complaints of pelvic pain Review of Systems Constitutional: + fever, + chills and + fatigue Respiratory: no cough and no dyspnea Cardiovascular: no chest pain Gastrointestinal: no abdominal pain Genitourinary: + dysuria Neurologic: + generalized weakness; no localized wea kness Psychiatric: no behavioral changes Physical Exam Constitutional: WD/WN, vitals as above ENMT: external ear and nose normal, oropharynx normal Neck: trachea midline Respiratory: normal respiratory effort, lungs clear to auscultation Cardiovascular: RRR, no murmur, no edema Gastrointestinal (Abdomen): Inspection/Auscultation: normal bowel sounds; abdomen not distended Percussion/Palpation: abdomen soft; abdomen nontender, no guarding and abdomen not rigid Musculoskeletal: Head/Neck/Chest: normocephalic and head atraumatic Skin: no rashes, warm and dry perineum without fluctuance or crepitus Psychiatric: Orientation: alert Results & Data Vital Signs (Past 12 Hours) Vital Signs Temp Pulse Pulse Pulse Resp BP Pulse Ox 02/08/24 09:00 91 H 20 130/79 92 02/08/24 07:00 36.7 C 88 15 139/83 93 02/08/24 06:39 92 H 02/08/24 06:05 36.5 C 88 18 141/70 H 97 02/08/24 03:27 36.4 C L 86 16 104/67 95 02/07/24 23:26 36.7 C 85 14 110/66 96 02/07/24 22:00 87 O2 Del Method O2 Flow Rate 02/08/24 09:00 Room Air 02/08/24 07:00 Room Air 02/08/24 06:39 02/08/24 06:05 Nasal Cannula 1 02/08/24 03:27 Room Air 02/07/24 23:26 Room Air 02/07/24 22:00
--- NOTE | 2024-02-08 09:52 | Gastrointestinal Consultation ---
Date of Consultation February 08, 2024 Assessment & Plan (1) Elevated LFTs: 78 year old critically ill female w/ history of CAD, CHF, atrial fibrillation on Coumadin, T2DM, HTN, UTI, TIA, chronic anemia, RA on methotrexate, hypothyroidism, GERD, breast cancer admitted to the ICU with hypotension (BP 82/53) severe sepsis due to cystitis - GI asked to evaluate for elevated transaminases which quickly became elevated overnight. She is awake, alert and oriented w/ clear mentation without asterixis on examination. Suspected her INR elevation is due to decreased oral intake and ongoing Coumadin use and her transaminitis is related to shock liver 1. Suspected Shock Liver - Supportive care - Management of sepsis - Blood pressure support as needed - Follow acute hepatitis panel - Portal vein US reviewed - CT imaging reviewed - Trend LFTs, INR - Hold Coumadin - Reverse INR - Frequent mental status assessments - If any change in mental status, recommend transfer to a tertiary care center 2. Nausea/Vomiting/Diarrhea - Supportive measures - Improving - Stool studies negative - Follow hepatitis panel 3. Fecal occult positive, chronic anemia - Follows with [facility] - Last EGD 2017 - Last Colonoscopy 2022 - Recommend she follows up with her established team for outpatient EGD/ Colonoscopy - Can continue oral iron - Trend H&H - Monitor and document GI output - Transfuse PRN per primary team I spent a total of 80 minutes on the date of service in review of patient's ric[address] rd, and previously obtained information in person and appropriate medical visit, discussion and education of plan, with patient and/or caregiver, placing orders for tests/referral/procedures as medically necessary and documentation of pertinent clinical information in patient's medical records for their visit today.Thank you for allowing us to participate in the care of this patient. Please call with any acute changes, questions or concerns. Please see addendum below with additional recommendation from my supervising physician. Supervising Physician Co-Signing Physician Notes I saw and examined this patient with our nurse practitioner and agree with her assessment and plan. Abdominal exam unremarkable abdomen soft no hepatomegaly no rebound no guarding. No asterixis. No confusion no acute distress. Etiology of normal LFTs consistent with ischemic hepatitis related to recent hypotension and sepsis. No signs of hepatic decompensation. Documented bacteremia due to urosepsis. Will continue present regimen for treatment of urosepsis. Continue to monitor liver enzymes INR. Will follow. History of Present Illness Reason for Consultation: elevated LFTs Requesting Physician: Cuong Attending Physician: Josephine Santoro MD History of Present Illness 78 year old female with history of CAD, CHF, atrial fibrillation on Coumadin, T2DM, HTN, UTI, TIA, chronic anemia, RA on methotrexate, hypothyroidism, GERD, breast cancer who presented through the ED for evaluation of abdominal pain, nausea/vomiting/diarrhea and weakness x 1 week. She was admitted with severe sepsis secondary to complicated UTI, cystitis, hypotension - GI was asked to evaluate for elevated LFTs. Pt was seen and evaluated, chart reviewed. At time of consultation this AM around 0820, she was awake, alert and oriented x 4 providing appropriate history. She notes about one week ago she developed bilateral lower abd pain. This was explained as cramping, pressure sensation. Associated with nausea, vomiting and diarrhea. Stools were ranging from dark brown/black at times but denies any BRBPR. Notes she progressively felt more weak which led to ED evaluation. She notes she is feeling somewhat improved this AM. Pain is less severe. Nov vomiting. Still moving stools, documented as green and mucoid. WBC 26.69 --> 18.51 PLT 78 INR 4.1 --> over 9.5 BUN 40, ADVERTISING AGENT 1.13 Lactic acid 9.1 --> 7 --> 6.9 --> 5.6 --> 2.2 --> 2.3 Tbili 3.3 --> 1.8 --> 5.1 --> 5 AST 39 --> 32 --> 34 --> 8328 ALT 23 --> 18 -->22 --> 2500 ALKP 53 --> 49 --> 171 --> 76 Lipase 35 + fecal occult Stool cultures negative C.diff negative Acetaminophen/Salicylated level negative Hep A pending Hep B pending Hep C negative Portal Vein US 2023: Patent portal vein. Mild biliary ductal dilation again noted status post cholecystectomy. CTAP 2023: Scattered small foci of gas seen within the perineum near the vaginal introitus/urethra. There is also small foci of gas extending in and around the vaginal wall, bladder wall, and myometrium of the uterus. There are small foci of scattered gas within the deep pelvis which appear to be within the surrounding pelvic veins. There is small focus of gas within the left common femoral vein. These findings are indeterminate and could be due to recent trauma/iatrogenic process such as insertion of a Granger or rectal catheter. However, a gas-forming organism also remains in the differential diagnosis raising the possibility of an emphysematous cystitis. Therefore, clinical graham elation recommended. Fluid-filled nondistended loops of large and small bowel. This can be seen in the setting of a diarrheal illness/gastroenteritis. Left- sided nephrolithiasis. No hydronephrosis. Colonic diverticulosis. No evidence for acute diverticulitis.Additional findings as described above. Allergies Allergy/AdvReac Type Severity Reaction Status Date / Time ABRIL Inhibitors AdvReac Severe hyperkalemi Verified 01/12/24 08:07 a nadolol AdvReac Unknown GI UPSET Verified 01/12/24 08:07 nitroglycerin AdvReac Unknown HEADACHE Verified 01/12/24 08:07 NSAIDS (Non-Steroidal AdvReac Unknown GI UPSET Verified 01/12/24 08:07 Anti-Inflamma metformin AdvReac Diarrhea Verified 01/12/24 08:07 Home Medications Medication Instructions Recorded Confirmed Type aspirin 81 mg tablet,delayed 81 mg PO QAM 04/02/18 02/07/24 History release (Ashly Low Dose Aspirin) acetaminophen 500 mg tablet 500 mg PO Q4H PRN Pain 10/02/21 02/07/24 History levothyroxine 25 mcg tablet 25 mcg PO QAM 10/02/21 02/07/24 History atorvastatin 80 mg tablet 80 mg PO DAILY 11/20/21 02/07/24 History ferrous sulfate 325 mg (65 mg 325 mg PO QAM 11/20/21 02/07/24 History iron) tablet carvedilol 25 mg tablet [facility].5 mg [facility] 11/[facility] 02/07/24 History clonidine HCl 0.1 mg tablet 0.1 mg PO [facility] 11/22/21 02/07/24 History sertraline 25 mg tablet 25 mg PO QAM 11/22/21 02/07/24 History terazosin 2 mg capsule 0 mg PO HS 11/22/21 02/07/24 History cholecalciferol (vitamin D3) 50 50 mcg PO DAILY 03/27/22 02/07/24 History mcg (2,000 unit) capsule (Vitamin D3) amlodipine 5 mg tablet 5 mg PO [facility] 01/05/24 02/07/24 History dicyclomine 10 mg capsule 10 mg PO BID PRN Abdominal Pain 01/05/24 02/07/24 History folic acid 1 mg tablet 1 mg PO DAILY 01/05/24 02/07/24 History furosemide 40 mg tablet 40 mg PO QAM 01/05/24 02/07/24 History hydralazine 100 mg tablet 0 mg PO TID 01/05/24 02/07/24 History methotrexate sodium 2.5 mg tablet 15 mg PO WK 01/05/24 02/07/24 History pregabalin 25 mg capsule 25 mg PO [facility] 01/05/24 02/07/24 History spironolactone 25 mg tablet 25 mg PO QAM 01/05/24 02/07/24 [facility] See Rx Instructions .Route .COMPLEX 01/05/24 02/07/24 History pantoprazole 40 mg tablet,delayed 40 mg PO BID #60 tabs 01/08/24 02/07/24 Rx release ascorbate calcium (vitamin C) 500 500 mg PO DAILY 01/10/24 02/07/24 History mg tablet magnesium hydroxide 400 mg/5 mL 5 ml PO DAILY PRN Constipation 01/10/24 02/07/24 History oral suspension (Dulcolax (magnesium hydroxide)) donepezil 5 mg tablet 5 mg PO DAILY #30 tabs 01/12/24 02/07/24 Rx Patient History Medical History Limb alert care status RUE limb restriction Aortic stenosis "Mild" per 12/2022 echo Sleep apnea no treatment History of COVID-19 x 01/2020 and 05/2020 while in [place] [facility] for rehab, denies residual issues Myocardial Infarction 1994, had a balloon angioplasty, [facility] Jung MRSA infection Hx-more than 1 year ago Atrial fibrillation with RVR f/u ruby thomas PAD (peripheral artery disease) severe right brachiocephalic stenosis and moderate to severe abdominal aortic stenosis- under surveillance by cardiovascular-on warfarin Chronic back pain LLE radiculopathy Rheumatoid arthritis Hiatal hernia CVA (cerebral vascular accident) 2016, residual unsteady, left sided weakness Surgical History History of surgery on left wrist "put a plate in for the arthritis" History of surgery Hematoma evacuation, stimulator check (11/20/21): Grade 1 view, MAC#3, ETT 7.0 at [facility]. No issues noted per post-op anesthesia progress note. S/P insertion of spinal cord stimulator placed in 2021, [facility]>has had it checked multiple times History of fracture of nasal bone no sx. History of shoulder replacement R Status post lumbar surgery History of back surgery x3, 2019 History of cardiac cath 2017 ([facility]) > no stents History of colonoscopy Family History Daughter Family history of reaction to anesthesia SLOW TO WAKE UP Mother Family history of diabetes mellitus Other Heart disease Hypertension Social History Smoking Status: Former smoker Second Hand Exposure: No; Do You Dip or Chew Tobacco: No; Hx Alcohol Use: No Hx Substance Use: No Preferred Language: Cameroonian Communication Ability: Effective Visual Impairment: No Limitations Hearing Ability: Normal Dimension Warehouse Supervisor Required: No Beliefs That Will Affect Care: None marital status: Current Living Situation: Spouse current occupational status: retired Other Information That Helps Us Care for You: No Feels Safe at Home: Yes Safety Concerns: Feels Safe At This Time Assistive Devices: Bedside Commode, Walker and Wheelchair Assistive Devices Comment: not with patient, at home Review of Systems Review of Systems: All other findings negative except as noted in HPI. Physical Exam Constitutional: WD/WN, vitals as above Respiratory: normal respiratory effort, lungs clear to auscultation Cardiovascular: Rate/Rhythm: regular rate Gastrointestinal (Abdomen): normal bowel sounds, soft, nontender, no hepatosplenomegaly Skin: no rashes, warm and dry Results & Data Vital Signs (Past 12 Hours) Vital Signs Temp Pulse Pulse Pulse Resp BP Pulse Ox 02/08/24 09:00 91 H 20 130/79 92 02/08/24 07:00 36.7 C 88 15 139/83 93 02/08/24 06:39 92 H 02/08/24 06:05 36.5 C 88 18 141/70 H 97 02/08/24 03:27 36.4 C L 86 16 104/67 95 02/07/24 23:26 36.7 C 85 14 110/66 96 02/07/24 22:00 87 O2 Del Method O2 Flow Rate 02/08/24 09:00 Room Air 02/08/24 07:00 Room Air 02/08/24 06:39 02/08/24 06:05 Nasal Cannula 1 02/08/24 03:27 Room Air 02/07/24 23:26 Room Air 02/07/24 22:00 Laboratory Results 02/08/24 02/08/24 02/08/24 Range/Units 09:21 07:12 06:50 WBC (4.8-10.8) K/ul RBC (4.20-5.40) M/uL Hgb (12.0-16.0) g/dl Hct (37.0-47.0) % MCV (80.0-100.0) fL MCH (25.0-34.0) pg MCHC (32.0-36.0) g/dL RDW Std Deviation (36.4-46.3) fL RDW Coeff of Farheen (11.5-14.5) % Plt Count (130-400) K/uL MPV (9.4-12.4) fL Immature Gran % (Auto) % Neut % (Auto) % Lymph % (Auto) % Simpson % (Auto) % Eos % (Auto) % Baso % (Auto) % Neut # (Auto) (1.40-6.50) K/uL Lymph # (Auto) (1.20-3.40) K/uL Simpson # (Auto) (0.11-0.59) K/uL Eos # (Auto) (0.00-0.50) K/uL Baso # (Auto) (0.00-0.20) K/uL Immature Gran # (Auto) (0.01-0.20) K/uL Absolute Nucleated RBC (0.00-0.12) K/uL Nucleated RBC % (auto) % Dohle Bodies Platelet Estimate (Normal) Polychromasia Tear Drop Cells Echinocytes PT (9.0-12.0) Seconds INR (0.9-1.1) VBG pH 7.37 (7.36-7.41) VBG pCO2 39 (38-50) mmHg VBG pO2 32 mmHg VBG HCO3 23 mmol/L VBG O2 Saturation < 60.0 % VBG Base Excess -2.5 mEq/L Sodium (136-145) mmol/L Potassium (3.5-5.1) mmol/L Chloride (98-107) mmol/L Carbon Dioxide (21-32) mmol/L Anion Gap (3-11) BUN (6-23) mg/dl Creatinine (0.6-1.2) mg/dl Est Cr Clr Drug Dosing ml/min Est GFR ( Amer) ml/min Est GFR (Non-Af Amer) ml/min BUN/Creatinine Ratio (10-20) Glucose (70-99(Fasting)) mg/dl POC Glucose 141 H (70-99) mg/dl Estimat Average Glucose mg/dl Hemoglobin A1c (4.5-5.6) % Lactate 2.3 H* (0.4-2.0) mmol/L Calcium (8.6-10.3) mg/dl Magnesium (1.7-2.4) mg/dl Total Bilirubin (0.2-1.0) mg/dl Direct Bilirubin (0-0.2) mg/dl AST (13-39) U/L ALT (7-52) U/L Alkaline Phosphatase (34-104) U/L Troponin I High Sens (0-14) pg/ml Total Protein (6.0-8.3) gm/dl Albumin (3.4-5.0) gm/dl Lipase 35 (11-82) U/L Procalcitonin (0-0.5) ng/ml Urine Color Urine Appearance (Clear) Urine pH (4.5-7.5) Ur Specific [place] (1.000-1.030) Urine Protein (Negative) Urine Glucose (UA) (Negative) Urine Ketones (Negative) Urine Blood (Negative) Urine Nitrite (Negative) Urine Bilirubin (Negative) Urine Urobilinogen (Negative) Ur Leukocyte Esterase (Negative) Urine WBC (Auto) (0-5) /hpf Urine RBC (Auto) (0-2) /hpf U Hyaline Cast (Auto) (0-2) /lpf U Epithel Cells (Auto) (0-2) /hpf Urine Bacteria (Auto) (None Seen) Nasal Screen MRSA (PCR) (Negative) Stool Occult Bld Scrn Positive A (Negative) Stl C. cayetanensis PCR (NotDetected) Stool Rotavirus A PCR (NotDetected) Stl Adenov F 40/41 PCR (NotDetected) Stool Astrovirus (PCR) (NotDetected) Stool Campylobacter PCR (NotDetected) Stl C. diff Tox B Gene (Neg) Stool Cryptosporidium PCR (NotDetected) Stl E.coli Shiga Tox PCR (NotDetected) Stl Enterotoxigenic E PCR (NotDetected) Stool EPEC (PCR) (NotDetected) Stool EAEC (PCR) (NotDetected) Stl E. histolytica PCR (NotDetected) Stool Giardia Lamblia PCR (NotDetected) Stool Salmonella PCR (NotDetected) Stool Sapovirus (PCR) (NotDetected) Stl P. shigelloides PCR (NotDetected) Stl Shigella/EIEC PCR (NotDetected) St Y.enterocolitica PCR (NotDetected) Stool Vibrio (PCR) (NotDetected) Stl Vibrio cholerae PCR (NotDetected) Stl Norovirus GI/GII PCR (NotDetected) Salicylates < 3.0 L (3.0-30) mg/dl Acetaminophen < 3 L (10-30) ug/ml Adenovirus (PCR) (NotDetected) B. pertussis DNA (PCR) (NotDetected) B.parapertussis DNA PCR (NotDetected) C. pneumoniae DNA (PCR) (NotDetected) Coronavirus OC43 (PCR) (NotDetected) Coronavirus HKU1 (PCR) (NotDetected) Coronavirus 229E (PCR) (NotDetected) SARS-CoV-2 (PCR) (NotDetected) Coronavirus NL63 (PCR) (NotDetected) Enterobacterales (PCR) (NotDetected) E. coli (PCR) (NotDetected) Hepatitis A IgM Ab Pending Hep Bs Antigen Negative (Negative) Hep B Core IgM Ab Pending Hepatitis C Antibody Negative (Negative) Human Metapneumovir PCR (NotDetected) Influenza Type A (PCR) (NotDetected) Influenza Type B (PCR) (NotDetected) M. pneumoniae (PCR) (NotDetected) Parainfluenza 1 (PCR) (NotDetected) Parainfluenza 2 (PCR) (NotDetected) Parainfluenza 3 (PCR) (NotDetected) Parainfluenza 4 (PCR) (NotDetected) RSV (PCR) (NotDetected) Entero/Rhino (PCR) (NotDetected) mcr-1 Colistin Res Gene PCR (NotDetected) blaIMP Car res Gene PCR (NotDetected) KPC-Carbap Res Gene PCR (NotDetected) blaNDM Car Res Gene PCR (NotDetected) OXA-48 Carbapenem Resis Gene (PCR) (NotDetected) blaVIM Car Res Gene PCR (NotDetected) CTX-M Gene Resistance (PCR) (NotDetected) Bld Cult ID Panel PCR (NotDetected) 02/08/24 02/08/24 02/07/24 Range/Units 04:04 00:15 Unknown WBC 18.51 H (4.8-10.8) K/ul RBC 2.58 L (4.20-5.40) M/uL Hgb 8.9 L (12.0-16.0) g/dl Hct 26.1 L (37.0-47.0) % MCV 101.2 H (80.0-100.0) fL MCH 34.5 H (25.0-34.0) pg MCHC 34.1 (32.0-36.0) g/dL RDW Std Deviation 52.7 H (36.4-46.3) fL RDW Coeff of Farheen 14.6 H (11.5-14.5) % Plt Count 78 L (130-400) K/uL MPV 10.0 (9.4-12.4) fL Immature Gran % (Auto) 3.7 % Neut % (Auto) 89.8 % Lymph % (Auto) 3.7 % Simpson % (Auto) 2.4 % Eos % (Auto) 0.2 % Baso % (Auto) 0.2 % Neut # (Auto) 16.63 H (1.40-6.50) K/uL Lymph # (Auto) 0.69 L (1.20-3.40) K/uL Simpson # (Auto) 0.45 (0.11-0.59) K/uL Eos # (Auto) 0.03 (0.00-0.50) K/uL Baso # (Auto) 0.03 (0.00-0.20) K/uL Immature Gran # (Auto) 0.68 H (0.01-0.20) K/uL Absolute Nucleated RBC 0.02 (0.00-0.12) K/uL Nucleated RBC % (auto) 0.1 % Dohle Bodies 1+ Platelet Estimate Decreased L (Normal) Polychromasia 1+ Tear Drop Cells Echinocytes PT > 90.0 H (9.0-12.0) Seconds INR > 9.5 H* (0.9-1.1) VBG pH (7.36-7.41) VBG pCO2 (38-50) mmHg VBG pO2 mmHg VBG HCO3 mmol/L VBG O2 Saturation % VBG Base Excess mEq/L Sodium 139 (136-145) mmol/L Potassium 3.2 L D (3.5-5.1) mmol/L Chloride 100 (98-107) mmol/L Carbon Dioxide 32 (21-32) mmol/L Anion Gap 7 (3-11) BUN 40 H (6-23) mg/dl Creatinine 1.13 D (0.6-1.2) mg/dl Est Cr Clr Drug Dosing 44.3 ml/min Est GFR ( Amer) 53.5 ml/min Est GFR (Non-Af Amer) 46.2 ml/min BUN/Creatinine Ratio 35.4 H (10-20) Glucose 130 H (70-99(Fasting)) mg/dl POC Glucose 185 H (70-99) mg/dl Estimat Average Glucose 166 mg/dl Hemoglobin A1c 7.4 H (4.5-5.6) % Lactate 2.2 H* (0.4-2.0) mmol/L Calcium 6.6 L (8.6-10.3) mg/dl Magnesium (1.7-2.4) mg/dl Total Bilirubin 5.0 H (0.2-1.0) mg/dl Direct Bilirubin 1.0 H (0-0.2) mg/dl AST 8328 H (13-39) U/L ALT > 2500 H (7-52) U/L Alkaline Phosphatase 76 (34-104) U/L Troponin I High Sens 41.3 H (0-14) pg/ml Total Protein 5.0 L D (6.0-8.3) gm/dl Albumin 3.1 L (3.4-5.0) gm/dl Lipase (11-82) U/L Procalcitonin (0-0.5) ng/ml Urine Color Yellow Urine Appearance Cloudy A (Clear) Urine pH 5.5 (4.5-7.5) Ur Specific [place] 1.027 (1.000-1.030) Urine Protein 2+ H (Negative) Urine Glucose (UA) 3+ H (Negative) Urine Ketones Negative (Negative) Urine Blood 2+ H (Negative) Urine Nitrite Negative (Negative) Urine Bilirubin Negative (Negative) Urine Urobilinogen Negative (Negative) Ur Leukocyte Esterase 1+ H (Negative) Urine WBC (Auto) >50 H (0-5) /hpf Urine RBC (Auto) 6-10 H (0-2) /hpf U Hyaline Cast (Auto) 0-2 (0-2) /lpf U Epithel Cells (Auto) 6-10 H (0-2) /hpf Urine Bacteria (Auto) 4+ H (None Seen) Nasal Screen MRSA (PCR) (Negative) Stool Occult Bld Scrn (Negative) Stl C. cayetanensis PCR (NotDetected) Stool Rotavirus A PCR (NotDetected) Stl Adenov F 40/41 PCR (NotDetected) Stool Astrovirus (PCR) (NotDetected) Stool Campylobacter PCR (NotDetected) Stl C. diff Tox B Gene (Neg) Stool Cryptosporidium PCR (NotDetected) Stl E.coli Shiga Tox PCR (NotDetected) Stl Enterotoxigenic E PCR (NotDetected) Stool EPEC (PCR) (NotDetected) Stool EAEC (PCR) (NotDetected) Stl E. histolytica PCR (NotDetected) Stool Giardia Lamblia PCR (NotDetected) Stool Salmonella PCR (NotDetected) Stool Sapovirus (PCR) (NotDetected) Stl P. shigelloides PCR (NotDetected) Stl Shigella/EIEC PCR (NotDetected) St Y.enterocolitica PCR (NotDetected) Stool Vibrio (PCR) (NotDetected) Stl Vibrio cholerae PCR (NotDetected) Stl Norovirus GI/GII PCR (NotDetected) Salicylates (3.0-30) mg/dl Acetaminophen (10-30) ug/ml Adenovirus (PCR) (NotDetected) B. pertussis DNA (PCR) (NotDetected) B.parapertussis DNA PCR (NotDetected) C. pneumoniae DNA (PCR) (NotDetected) Coronavirus OC43 (PCR) (NotDetected) Coronavirus HKU1 (PCR) (NotDetected) Coronavirus 229E (PCR) (NotDetected) SARS-CoV-2 (PCR) (NotDetected) Coronavirus NL63 (PCR) (NotDetected) Enterobacterales (PCR) (NotDetected) E. coli (PCR) (NotDetected) Hepatitis A IgM Ab Hep Bs Antigen (Negative) Hep B Core IgM Ab Hepatitis C Antibody (Negative) Human Metapneumovir PCR (NotDetected) Influenza Type A (PCR) (NotDetected) Influenza Type B (PCR) (NotDetected) M. pneumoniae (PCR) (NotDetected) Parainfluenza 1 (PCR) (NotDetected) Parainfluenza 2 (PCR) (NotDetected) Parainfluenza 3 (PCR) (NotDetected) Parainfluenza 4 (PCR) (NotDetected) RSV (PCR) (NotDetected) Entero/Rhino (PCR) (NotDetected) mcr-1 Colistin Res Gene PCR (NotDetected) blaIMP Car res Gene PCR (NotDetected) KPC-Carbap Res Gene PCR (NotDetected) blaNDM Car Res Gene PCR (NotDetected) OXA-48 Carbapenem Resis Gene (PCR) (NotDetected) blaVIM Car Res Gene PCR (NotDetected) CTX-M Gene Resistance (PCR) (NotDetected) Bld Cult ID Panel PCR (NotDetected) 02/07/24 02/07/24 02/07/24 Range/Units 21:29 20:10 19:12 WBC (4.8-10.8) K/ul RBC (4.20-5.40) M/uL Hgb (12.0-16.0) g/dl Hct (37.0-47.0) % MCV (80.0-100.0) fL MCH (25.0-34.0) pg MCHC (32.0-36.0) g/dL RDW Std Deviation (36.4-46.3) fL RDW Coeff of Farheen (11.5-14.5) % Plt Count (130-400) K/uL MPV (9.4-12.4) fL Immature Gran % (Auto) % Neut % (Auto) % Lymph % (Auto) % Simpson % (Auto) % Eos % (Auto) % Baso % (Auto) % Neut # (Auto) (1.40-6.50) K/uL Lymph # (Auto) (1.20-3.40) K/uL Simpson # (Auto) (0.11-0.59) K/uL Eos # (Auto) (0.00-0.50) K/uL Baso # (Auto) (0.00-0.20) K/uL Immature Gran # (Auto) (0.01-0.20) K/uL Absolute Nucleated RBC (0.00-0.12) K/uL Nucleated RBC % (auto) % Dohle Bodies Platelet Estimate (Normal) Polychromasia Tear Drop Cells Echinocytes PT (9.0-12.0) Seconds INR (0.9-1.1) VBG pH (7.36-7.41) VBG pCO2 (38-50) mmHg VBG pO2 mmHg VBG HCO3 mmol/L VBG O2 Saturation % VBG Base Excess mEq/L Sodium 133 L (136-145) mmol/L Potassium 4.8 D (3.5-5.1) mmol/L Chloride 105 (98-107) mmol/L Carbon Dioxide 13 L (21-32) mmol/L Anion Gap 15 H (3-11) BUN 46 H (6-23) mg/dl Creatinine 1.55 H (0.6-1.2) mg/dl Est Cr Clr Drug Dosing 32.3 ml/min Est GFR ( Amer) 36.5 ml/min Est GFR (Non-Af Amer) 31.5 ml/min BUN/Creatinine Ratio 29.7 H (10-20) Glucose 215 H (70-99(Fasting)) mg/dl POC Glucose 228 H (70-99) mg/dl Estimat Average Glucose mg/dl Hemoglobin A1c (4.5-5.6) % Lactate 5.6 H* 6.9 H* (0.4-2.0) mmol/L Calcium 7.8 L (8.6-10.3) mg/dl Magnesium (1.7-2.4) mg/dl Total Bilirubin (0.2-1.0) mg/dl Direct Bilirubin (0-0.2) mg/dl AST (13-39) U/L ALT (7-52) U/L Alkaline Phosphatase (34-104) U/L Troponin I High Sens 43.8 H D (0-14) pg/ml Total Protein (6.0-8.3) gm/dl Albumin (3.4-5.0) gm/dl Lipase (11-82) U/L Procalcitonin (0-0.5) ng/ml Urine Color Urine Appearance (Clear) Urine pH (4.5-7.5) Ur Specific [place] (1.000-1.030) Urine Protein (Negative) Urine Glucose (UA) (Negative) Urine Ketones (Negative) Urine Blood (Negative) Urine Nitrite (Negative) Urine Bilirubin (Negative) Urine Urobilinogen (Negative) Ur Leukocyte Esterase (Negative) Urine WBC (Auto) (0-5) /hpf Urine RBC (Auto) (0-2) /hpf U Hyaline Cast (Auto) (0-2) /lpf U Epithel Cells (Auto) (0-2) /hpf Urine Bacteria (Auto) (None Seen) Nasal Screen MRSA (PCR) (Negative) Stool Occult Bld Scrn (Negative) Stl C. cayetanensis PCR (NotDetected) Stool Rotavirus A PCR (NotDetected) Stl Adenov F 40/41 PCR (NotDetected) Stool Astrovirus (PCR) (NotDetected) Stool Campylobacter PCR (NotDetected) Stl C. diff Tox B Gene (Neg) Stool Cryptosporidium PCR (NotDetected) Stl E.coli Shiga Tox PCR (NotDetected) Stl Enterotoxigenic E PCR (NotDetected) Stool EPEC (PCR) (NotDetected) Stool EAEC (PCR) (NotDetected) Stl E. histolytica PCR (NotDetected) Stool Giardia Lamblia PCR (NotDetected) Stool Salmonella PCR (NotDetected) Stool Sapovirus (PCR) (NotDetected) Stl P. shigelloides PCR (NotDetected) Stl Shigella/EIEC PCR (NotDetected) St Y.enterocolitica PCR (NotDetected) Stool Vibrio (PCR) (NotDetected) Stl Vibrio cholerae PCR (NotDetected) Stl Norovirus GI/GII PCR (NotDetected) Salicylates (3.0-30) mg/dl Acetaminophen (10-30) ug/ml Adenovirus (PCR) (NotDetected) B. pertussis DNA (PCR) (NotDetected) B.parapertussis DNA PCR (NotDetected) C. pneumoniae DNA (PCR) (NotDetected) Coronavirus OC43 (PCR) (NotDetected) Coronavirus HKU1 (PCR) (NotDetected) Coronavirus 229E (PCR) (NotDetected) SARS-CoV-2 (PCR) (NotDetected) Coronavirus NL63 (PCR) (NotDetected) Enterobacterales (PCR) (NotDetected) E. coli (PCR) (NotDetected) Hepatitis A IgM Ab Hep Bs Antigen (Negative) Hep B Core IgM Ab Hepatitis C Antibody (Negative) Human Metapneumovir PCR (NotDetected) Influenza Type A (PCR) (NotDetected) Influenza Type B (PCR) (NotDetected) M. pneumoniae (PCR) (NotDetected) Parainfluenza 1 (PCR) (NotDetected) Parainfluenza 2 (PCR) (NotDetected) Parainfluenza 3 (PCR) (NotDetected) Parainfluenza 4 (PCR) (NotDetected) RSV (PCR) (NotDetected) Entero/Rhino (PCR) (NotDetected) mcr-1 Colistin Res Gene PCR (NotDetected) blaIMP Car res Gene PCR (NotDetected) KPC-Carbap Res Gene PCR (NotDetected) blaNDM Car Res Gene PCR (NotDetected) OXA-48 Carbapenem Resis Gene (PCR) (NotDetected) blaVIM Car Res Gene PCR (NotDetected) CTX-M Gene Resistance (PCR) (NotDetected) Bld Cult ID Panel PCR (NotDetected) 02/07/24 02/07/24 02/07/24 Range/Units 17:06 16:18 14:05 WBC (4.8-10.8) K/ul RBC (4.20-5.40) M/uL Hgb (12.0-16.0) g/dl Hct (37.0-47.0) % MCV (80.0-100.0) fL [facility] (25.0-34.0) pg MCHC (32.0-36.0) g/dL RDW Std Deviation (36.4-46.3) fL RDW Coeff of Fahreen (11.5-14.5) % Plt Count (130-400) K/uL MPV (9.4-12.4) fL Immature Gran % (Auto) % Neut % (Auto) % Lymph % (Auto) % Simpson % (Auto) % Eos % (Auto) % Baso % (Auto) % Neut # (Auto) (1.40-6.50) K/uL Lymph # (Auto) (1.20-3.40) K/uL Simpson # (Auto) (0.11-0.59) K/uL Eos # (Auto) (0.00-0.50) K/uL Baso # (Auto) (0.00-0.20) K/uL Immature Gran # (Auto) (0.01-0.20) K/uL Absolute Nucleated RBC (0.00-0.12) K/uL Nucleated RBC % (auto) % Dohle Bodies Platelet Estimate (Normal) Polychromasia Tear Drop Cells Echinocytes PT (9.0-12.0) Seconds INR (0.9-1.1) VBG pH (7.36-7.41) VBG pCO2 (38-50) mmHg VBG pO2 mmHg VBG HCO3 mmol/L VBG O2 Saturation % VBG Base Excess mEq/L Sodium (136-145) mmol/L Potassium (3.5-5.1) mmol/L Chloride (98-107) mmol/L Carbon Dioxide (21-32) mmol/L Anion Gap (3-11) BUN (6-23) mg/dl Creatinine (0.6-1.2) mg/dl Est Cr Clr Drug Dosing ml/min Est GFR ( Amer) ml/min Est GFR (Non-Af Amer) ml/min BUN/Creatinine Ratio (10-20) Glucose (70-99(Fasting)) mg/dl POC Glucose 238 H (70-99) mg/dl Estimat Average Glucose mg/dl Hemoglobin A1c (4.5-5.6) % Lactate (0.4-2.0) mmol/L Calcium (8.6-10.3) mg/dl Magnesium (1.7-2.4) mg/dl Total Bilirubin (0.2-1.0) mg/dl Direct Bilirubin (0-0.2) mg/dl AST (13-39) U/L ALT (7-52) U/L Alkaline Phosphatase (34-104) U/L Troponin I High Sens 63.8 H* D (0-14) pg/ml Total Protein (6.0-8.3) gm/dl Albumin (3.4-5.0) gm/dl Lipase (11-82) U/L Procalcitonin (0-0.5) ng/ml Urine Color Urine Appearance (Clear) Urine pH (4.5-7.5) Ur Specific [place] (1.000-1.030) Urine Protein (Negative) Urine Glucose (UA) (Negative) Urine Ketones (Negative) Urine Blood (Negative) Urine Nitrite (Negative) Urine Bilirubin (Negative) Urine Urobilinogen (Negative) Ur Leukocyte Esterase (Negative) Urine WBC (Auto) (0-5) /hpf Urine RBC (Auto) (0-2) /hpf U Hyaline Cast (Auto) (0-2) /lpf U Epithel Cells (Auto) (0-2) /hpf Urine Bacteria (Auto) (None Seen) Nasal Screen MRSA (PCR) Negative (Negative) Stool Occult Bld Scrn (Negative) Stl C. cayetanensis PCR (NotDetected) Stool Rotavirus A PCR (NotDetected) Stl Adenov F 40/41 PCR (NotDetected) Stool Astrovirus (PCR) (NotDetected) Stool Campylobacter PCR (NotDetected) Stl C. diff Tox B Gene (Neg) Stool Cryptosporidium PCR (NotDetected) Stl E.coli Shiga Tox PCR (NotDetected) Stl Enterotoxigenic E PCR (NotDetected) Stool EPEC (PCR) (NotDetected) Stool EAEC (PCR) (NotDetected) Stl E. histolytica PCR (NotDetected) Stool Giardia Lamblia PCR (NotDetected) Stool Salmonella PCR (NotDetected) Stool Sapovirus (PCR) (NotDetected) Stl P. shigelloides PCR (NotDetected) Stl Shigella/EIEC PCR (NotDetected) St Y.enterocolitica PCR (NotDetected) Stool Vibrio (PCR) (NotDetected) Stl Vibrio cholerae PCR (NotDetected) Stl Norovirus GI/GII PCR (NotDetected) Salicylates (3.0-30) mg/dl Acetaminophen (10-30) ug/ml Adenovirus (PCR) Not Detected (NotDetected) B. pertussis DNA (PCR) Not Detected (NotDetected) B.parapertussis DNA PCR Not Detected (NotDetected) C. pneumoniae DNA (PCR) Not Detected (NotDetected) Coronavirus OC43 (PCR) Not Detected (NotDetected) Coronavirus HKU1 (PCR) Not Detected (NotDetected) Coronavirus 229E (PCR) Not Detected (NotDetected) SARS-CoV-2 (PCR) Not Detected (NotDetected) Coronavirus NL63 (PCR) Not Detected (NotDetected) Enterobacterales (PCR) (NotDetected) E. coli (PCR) (NotDetected) Hepatitis A IgM Ab Hep Bs Antigen (Negative) Hep B Core IgM Ab Hepatitis C Antibody (Negative) Human Metapneumovir PCR Not Detected (NotDetected) Influenza Type A (PCR) Not Detected (NotDetected) Influenza Type B (PCR) Not Detected (NotDetected) M. pneumoniae (PCR) Not Detected (NotDetected) Parainfluenza 1 (PCR) Not Detected (NotDetected) Parainfluenza 2 (PCR) Not Detected (NotDetected) Parainfluenza 3 (PCR) Not Detected (NotDetected) Parainfluenza 4 (PCR) Not Detected (NotDetected) RSV (PCR) Not Detected (NotDetected) Entero/Rhino (PCR) Not Detected (NotDetected) mcr-1 Colistin Res Gene PCR (NotDetected) blaIMP Car res Gene PCR (NotDetected) KPC-Carbap Res Gene PCR (NotDetected) blaNDM Car Res Gene PCR (NotDetected) OXA-48 Carbapenem Resis Gene (PCR) (NotDetected) blaVIM Car Res Gene PCR (NotDetected) CTX-M Gene Resistance (PCR) (NotDetected) Bld Cult ID Panel PCR (NotDetected) 02/07/24 02/07/24 02/07/24 Range/Units 13:30 13:15 11:31 WBC 26.69 H (4.8-10.8) K/ul RBC 3.24 L (4.20-5.40) M/uL Hgb 11.2 L (12.0-16.0) g/dl Hct 33.8 L (37.0-47.0) % MCV 104.3 H (80.0-100.0) fL MCH 34.6 H (25.0-34.0) pg MCHC 33.1 (32.0-36.0) g/dL RDW Std Deviation 55.2 H (36.4-46.3) fL RDW Coeff of Farheen 14.5 (11.5-14.5) % Plt Count 131 (130-400) K/uL MPV 10.0 (9.4-12.4) fL Immature Gran % (Auto) 3.2 % Neut % (Auto) 90.8 % Lymph % (Auto) 2.6 % Simpson % (Auto) 3.3 % Eos % (Auto) 0.0 % Baso % (Auto) 0.1 % Neut # (Auto) 24.23 H (1.40-6.50) K/uL Lymph # (Auto) 0.69 L (1.20-3.40) K/uL Simpson # (Auto) 0.88 H (0.11-0.59) K/uL Eos # (Auto) 0.01 (0.00-0.50) K/uL Baso # (Auto) 0.03 (0.00-0.20) K/uL Immature Gran # (Auto) 0.85 H (0.01-0.20) K/uL Absolute Nucleated RBC 0.03 (0.00-0.12) K/uL Nucleated RBC % (auto) 0.1 % Dohle Bodies 2+ Platelet Estimate (Normal) Polychromasia 1+ Tear Drop Cells 1+ Echinocytes 1+ PT 39.2 H (9.0-12.0) Seconds INR 4.1 H (0.9-1.1) VBG pH (7.36-7.41) VBG pCO2 (38-50) mmHg VBG pO2 mmHg VBG HCO3 mmol/L VBG O2 Saturation % VBG Base Excess mEq/L Sodium 132 L (136-145) mmol/L Potassium 3.0 L (3.5-5.1) mmol/L Chloride 97 L (98-107) mmol/L Carbon Dioxide 16 L (21-32) mmol/L Anion Gap 19 H (3-11) BUN 41 H (6-23) mg/dl Creatinine 1.74 H (0.6-1.2) mg/dl Est Cr Clr Drug Dosing 28.8 ml/min Est GFR ( Amer) 31.8 ml/min Est GFR (Non-Af Amer) 27.4 ml/min BUN/Creatinine Ratio 23.6 H (10-20) Glucose 250 H (70-99(Fasting)) mg/dl POC Glucose (70-99) mg/dl Estimat Average Glucose mg/dl Hemoglobin A1c (4.5-5.6) % Lactate 7.0 H* 9.1 H* (0.4-2.0) mmol/L Calcium 9.1 (8.6-10.3) mg/dl Magnesium 1.8 (1.7-2.4) mg/dl Total Bilirubin 5.1 H (0.2-1.0) mg/dl Direct Bilirubin 0.8 H (0-0.2) mg/dl AST 34 (13-39) U/L ALT 22 (7-52) U/L Alkaline Phosphatase 171 H (34-104) U/L Troponin I High Sens 112.3 H* (0-14) pg/ml Total Protein 6.6 (6.0-8.3) gm/dl Albumin 3.8 (3.4-5.0) gm/dl Lipase (11-82) U/L Procalcitonin 29.60 H (0-0.5) ng/ml Urine Color Urine Appearance (Clear) Urine pH (4.5-7.5) Ur Specific [place] (1.000-1.030) Urine Protein (Negative) Urine Glucose (UA) (Negative) Urine Ketones (Negative) Urine Blood (Negative) Urine Nitrite (Negative) Urine Bilirubin (Negative) Urine Urobilinogen (Negative) Ur Leukocyte Esterase (Negative) Urine WBC (Auto) (0-5) /hpf Urine RBC (Auto) (0-2) /hpf U Hyaline Cast (Auto) (0-2) /lpf U Epithel Cells (Auto) (0-2) /hpf Urine Bacteria (Auto) (None Seen) Nasal Screen MRSA (PCR) (Negative) Stool Occult Bld Scrn (Negative) Stl C. cayetanensis PCR Not Detected (NotDetected) Stool Rotavirus A PCR Not Detected (NotDetected) Stl Adenov F 40/41 PCR Not Detected (NotDetected) Stool Astrovirus (PCR) Not Detected (NotDetected) Stool Campylobacter PCR Not Detected (NotDetected) Stl C. diff Tox B Gene Negative Cdiff Gene (Neg) Stool Cryptosporidium PCR Not Detected (NotDetected) Stl E.coli Shiga Tox PCR Not Detected (NotDetected) Stl Enterotoxigenic E PCR Not Detected (NotDetected) Stool EPEC (PCR) Not Detected (NotDetected) Stool EAEC (PCR) Not Detected (NotDetected) Stl E. histolytica PCR Not Detected (NotDetected) Stool Giardia Lamblia PCR Not Detected (NotDetected) Stool Salmonella PCR Not Detected (NotDetected) Stool Sapovirus (PCR) Not Detected (NotDetected) Stl P. shigelloides PCR Not Detected (NotDetected) Stl Shigella/EIEC PCR Not Detected (NotDetected) St Y.enterocolitica PCR Not Detected (NotDetected) Stool Vibrio (PCR) Not Detected (NotDetected) Stl Vibrio cholerae PCR Not Detected (NotDetected) Stl Norovirus GI/GII PCR Not Detected (NotDetected) Salicylates (3.0-30) mg/dl Acetaminophen (10-30) ug/ml Adenovirus (PCR) (NotDetected) B. pertussis DNA (PCR) (NotDetected) B.parapertussis DNA PCR (NotDetected) C. pneumoniae DNA (PCR) (NotDetected) Coronavirus OC43 (PCR) (NotDetected) Coronavirus HKU1 (PCR) (NotDetected) Coronavirus 229E (PCR) (NotDetected) SARS-CoV-2 (PCR) (NotDetected) Coronavirus NL63 (PCR) (NotDetected) Enterobacterales (PCR) DETECTED A (NotDetected) E. coli (PCR) DETECTED A (NotDetected) Hepatitis A IgM Ab Hep Bs Antigen (Negative) Hep B Core IgM Ab Hepatitis C Antibody (Negative) Human Metapneumovir PCR (NotDetected) Influenza Type A (PCR) (NotDetected) Influenza Type B (PCR) (NotDetected) M. pneumoniae (PCR) (NotDetected) Parainfluenza 1 (PCR) (NotDetected) Parainfluenza 2 (PCR) (NotDetected) Parainfluenza 3 (PCR) (NotDetected) Parainfluenza 4 (PCR) (NotDetected) RSV (PCR) (NotDetected) Entero/Rhino (PCR) (NotDetected) mcr-1 Colistin Res Gene PCR Not Detected (NotDetected) blaIMP Car res Gene PCR Not Detected (NotDetected) KPC-Carbap Res Gene PCR Not Detected (NotDetected) blaNDM Car Res Gene PCR Not Detected (NotDetected) OXA-48 Carbapenem Resis Gene (PCR) Not Detected (NotDetected) blaVIM Car Res Gene PCR Not Detected (NotDetected) CTX-M Gene Resistance (PCR) Not Detected (NotDetected) Bld Cult ID Panel PCR See PCR Comment (NotDetected) PG Care Time/CCT Total # of Minutes Spent Total Time Spent with Patient: Total time spent is greater than 50% in coordination of care (as documented) at patient's floor/unit and/or counseling patient: Coding Level of Care Code 58278 INT INP/OBS CARE 3/75MIN Diagnoses Elevated LFTs R79.89
[2024-02-08] MEDS: FOLIC ACID 1 MG TAB PO SCH (10:16)
[2024-02-08] MEDS: FERROUS SULFATE 325 MG TAB PO SCH (10:16)
[2024-02-08] MEDS: SERTRALINE HCL 50 MG TABLET PO SCH (10:17)
--- NOTE | 2024-02-08 10:56 | Electrocardiogram Report ---
Test Reason : Blood Pressure : */* mmHG Vent. Rate : 81 BPM Atrial Rate : 312 BPM P-R Int : * ms QRS Dur : 92 ms QT Int : 416 ms P-R-T Axes : * 72 49 degrees QTcB Int : 483 ms Atrial fibrillation Abnormal ECG When compared with ECG of 07-Feb-2024 11:27, No significant change was found Confirmed by Isiah Shepherd ([id number]) on 02/08/2024 10:56:05 AM Referred By: REFERRED SELF Confirmed By: Isiah Shepherd
--- NOTE | 2024-02-08 11:09 | Nephrology Consultation ---
Date of Consultation February 08, 2024 Assessment & Plan (1) OMA (acute kidney injury): Patient with acute kidney injury due to prerenal azotemia. Admission creatinine of 1.7 from a normal baseline. Creatinine downtrending to 1.1 today. Patient had metabolic acidosis with bicarb of 13 but that has improved with sodium bicarbonate infusion. Will stop sodium bicarbonate infusion. Will start Plasma-Lyte at 8 mL/h. Monitor input output. Avoid nephrotoxins such as contrast and NSAIDs. We will give potassium chloride 40 mill equivalents once today (2) Sepsis: Patient with sepsis likely urinary source. She is on meropenem. Blood pressure is stable and white count is reducing from 26-18 today. Will follow cultures. History of Present Illness Reason for Consultation: Acute kidney injury Requesting Physician: Josephine Santoro MD Attending Physician: Josephine Santoro MD History of Present Illness This is 78-year-old female with history of hypertension, hyperlipidemia, coronary disease, heart failure with preserved EF, A-fib on Coumadin, type 2 diabetes, rheumatoid arthritis on methotrexate, breast cancer, hypothyroidism who was admitted with weakness and profuse diarrhea found to have sepsis due to cystitis. WBC was 26,000. She also had acute kidney injury with creatinine of 1.7 from a normal baseline. She has received over 5 L of fluids. She put out 1.3 L of urine. Creatinine downtrending to 1.1 this morning. She feels better today denies shortness of breath or leg swelling. No abdominal pain. No diarrhea this morning. was at the bedside and provided additional history. Allergies Allergy/AdvReac Type Severity Reaction Status Date / Time ABRIL Inhibitors AdvReac Severe hyperkalemi Verified 01/12/24 08:07 a nadolol AdvReac Unknown GI UPSET Verified 01/12/24 08:07 nitroglycerin AdvReac Unknown HEADACHE Verified 01/12/24 08:07 NSAIDS (Non-Steroidal AdvReac Unknown GI UPSET Verified 01/12/24 08:07 Anti-Inflamma metformin AdvReac Diarrhea Verified 01/12/24 08:07 Home Medications Medication Instructions Recorded Confirmed Type aspirin 81 mg tablet,delayed 81 mg PO QAM 04/02/18 02/07/24 History release (Ashly Low Dose Aspirin) acetaminophen 500 mg tablet 500 mg PO Q4H PRN Pain 10/02/21 02/07/24 History levothyroxine 25 mcg tablet 25 mcg PO QAM 10/02/21 02/07/24 History atorvastatin 80 mg tablet 80 mg PO DAILY 11/20/21 02/07/24 History ferrous sulfate 325 mg (65 mg 325 mg PO QAM 11/20/21 02/07/24 History iron) tablet carvedilol 25 mg tablet 37.5 mg PO AMPM 11/22/21 02/07/24 History clonidine HCl 0.1 mg tablet 0.1 mg PO AMHS 11/22/21 02/07/24 History sertraline 25 mg tablet 25 mg PO QAM 11/22/21 02/07/24 History terazosin 2 mg capsule 0 mg PO HS 11/22/21 02/07/24 History cholecalciferol (vitamin D3) 50 50 mcg PO DAILY 03/27/22 02/07/24 History mcg (2,000 unit) capsule (Vitamin D3) amlodipine 5 mg tablet 5 mg PO AMHS 01/05/24 02/07/24 History dicyclomine 10 mg capsule 10 mg PO BID PRN Abdominal Pain 01/05/24 02/07/24 History folic acid 1 mg tablet 1 mg PO DAILY 01/05/24 02/07/24 History furosemide 40 mg tablet 40 mg PO QAM 01/05/24 02/07/24 History hydralazine 100 mg tablet 0 mg PO TID 01/05/24 02/07/24 History methotrexate sodium 2.5 mg tablet 15 mg PO WK 01/05/24 02/07/24 History pregabalin 25 mg capsule 25 mg PO AMHS 01/05/24 02/07/24 History spironolactone 25 mg tablet 25 mg PO QAM 01/05/24 02/07/24 History warfarin 4 mg tablet (Jantoven) See Rx Instructions .Route .COMPLEX 01/05/24 02/07/24 History pantoprazole 40 mg tablet,delayed 40 mg PO BID #60 tabs 01/08/24 02/07/24 Rx release ascorbate calcium (vitamin C) 500 500 mg PO DAILY 01/10/24 02/07/24 History mg tablet magnesium hydroxide 400 mg/5 mL 5 ml PO DAILY PRN Constipation 01/10/24 02/07/24 History oral suspension (Dulcolax (magnesium hydroxide)) donepezil 5 mg tablet 5 mg PO DAILY #30 tabs 01/12/24 02/07/24 Rx Patient History Medical History Limb alert care status RUE limb restriction Aortic stenosis "Mild" per 12/2022 echo Sleep apnea no treatment History of COVID-19 x 01/2020 and 05/2020 while in [place] for rehab, denies residual issues Myocardial Infarction 1994, had a balloon angioplasty, [facility] MRSA infection Hx-more than 1 year ago Atrial fibrillation with RVR f/u [facility] PAD (peripheral artery disease) severe right brachiocephalic stenosis and moderate to severe abdominal aortic stenosis- under surveillance by cardiovascular-on warfarin Chronic back pain LLE radiculopathy Rheumatoid arthritis Hiatal hernia CVA (cerebral vascular accident) 2016, residual unsteady, left sided weakness Surgical History History of surgery on left wrist "put a plate in for the arthritis" History of surgery Hematoma evacuation, stimulator check (11/20/21): Grade 1 view, MAC#3, ETT 7.0 at [facility]. No issues noted per post-op anesthesia progress note. S/P insertion of spinal cord stimulator placed in 2021, [facility]>has had it checked multiple times History of fracture of nasal bone no sx. History of shoulder replacement R Status post lumbar surgery History of back surgery x3, 2019 History of cardiac cath 2017 ([facility]) > no stents History of colonoscopy Family History Daughter Family history of reaction to anesthesia SLOW TO WAKE UP Mother Family history of diabetes mellitus Other Heart disease Hypertension Social History Smoking Status: Former smoker Second Hand Exposure: No; Do You Dip or Chew Tobacco: No; Hx Alcohol Use: No Hx Substance Use: No Preferred Language: Swedish Communication Ability: Effective Visual Impairment: No Limitations Hearing Ability: Normal Corporate Relations Director Required: No Beliefs That Will Affect Care: None marital status: Current Living Situation: Spouse current occupational status: retired Other Information That Helps Us Care for You: No Feels Safe at Home: Yes Safety Concerns: Feels Safe At This Time Assistive Devices: Bedside Commode, Walker and Wheelchair Assistive Devices Comment: not with patient, at home Review of Systems 2 Review of Systems: All other systems were reviewed and negative except as noted in HPI Physical Exam 2 Physical Exam: General exam: Appears comfortable, no acute distress HEENT: Pupils are equal and reactive to light Neck: No JVD, neck is supple trachea is midline Respiratory system: Clear breath sounds bilaterally. Gastrointestinal: Abdomen is soft, non distended, non tender, bowel sounds are present CVS: Regular rate and rhythm. No murmurs, rubs or gallops Musculoskeletal: No joint or muscle tenderness Extremities: Non tender, no edema, peripheral pulses are present Neuro: Oriented, no tremors, no focal neurological deficits Skin: No rashes Results & Data Vital Signs (Past 12 Hours) Vital Signs Temp Pulse Pulse Pulse Resp BP Pulse Ox 02/08/24 09:00 91 H 20 130/79 92 02/08/24 07:00 36.7 C 88 15 139/83 93 02/08/24 06:39 92 H 02/08/24 06:05 36.5 C 88 18 141/70 H 97 02/08/24 03:27 36.4 C L 86 16 104/67 95 02/07/24 23:26 36.7 C 85 14 110/66 96 O2 Del Method O2 Flow Rate 02/08/24 09:00 Room Air 02/08/24 07:00 Room Air 02/08/24 06:39 02/08/24 06:05 Nasal Cannula 1 02/08/24 03:27 Room Air 02/07/24 23:26 Room Air Laboratory Results 02/08/24 04:04 02/07/24 02/08/24 11:31 04:04 WBC 26.69 H 18.51 H RBC 3.24 L 2.58 L MCV 104.3 H 101.2 H MCH 34.6 H 34.5 H MCHC 33.1 34.1 RDW Std Deviation 55.2 H 52.7 H RDW Coeff of Farheen 14.5 14.6 H Plt Count 131 78 L MPV 10.0 10.0 Albumin 3.8 3.1 L (2) Sepsis Acute renal failure type: unspecified Sepsis acute organ dysfunction status: with acute organ dysfunction Sepsis type: sepsis due to unspecified organism S evere sepsis acute organ dysfunction type: acute renal failure Severe sepsis shock status: with septic shock Qualified Code(s): A41.9 - Sepsis, unspecified organism; R65.21 - Severe sepsis with septic shock; N17.9 - Acute kidney failure, unspecified
[2024-02-08 11:12] LABS: Fibrinogen 444 mg/dl (184-400)
[2024-02-08] MEDS: LACTATED RINGER'S 1,000 ML IV SCH (11:38)
--- NOTE | 2024-02-08 11:38 | Urology Progress Note ---
Date of Service February 08, 2024 Assessment & Plan (1) Emphysematous cystitis: (2) Severe sepsis: Plan: Follow-up of emphysematous cystitis, sepsis Patient afebrile, hemodynamically stable Labs reviewedcreatinine 1.13, WBC 18.51, hemoglobin 8.9 Urine and blood cultures preliminary with gram-negative bacilli Continue with broad-spectrum antibiotics and narrow per sensitivity data when available Maintain Granger catheter for maximum drainage Continue to trend labs Recommend repeat CT imaging if patient deteriorates or no improvement with antibiotics Continue supportive care, antibiotics and medical management per hospital medicine service SWEATBAND SEPARATOR, general surgery, and GI consults reviewed will follow Admission and Anticipated Discharge Date Admission Date: February 07, 2024 Subjective Patient seen and examined at bedside. She reports fatigue. Denies fever or chills. Granger intact. She reports some mild lower abdominal/pelvic discomfort. No nausea or vomiting. Review of Systems Constitutional: as per Subjective / HPI Genitourinary: as per Subjective / HPI Physical Exam Constitutional: no acute distress Respiratory: no respiratory distress and no labored breathing Gastrointestinal (Abdomen): Percussion/Palpation: abdomen soft; abdomen nontender Musculoskeletal: Head/Neck/Chest: normocephalic Neurologic: moves all extremities and awake Psychiatric: Orientation: alert and oriented x 3 Genitourinary: Granger patent and draining light slick urine Results & Data Vital Signs (Past 12 Hours) Vital Signs Temp Pulse Pulse Pulse Resp BP Pulse Ox 02/08/24 11:00 90 19 132/77 95 02/08/24 10:00 82 19 110/68 95 02/08/24 09:00 91 H 20 130/79 92 02/08/24 07:00 36.7 C 88 15 139/83 93 02/08/24 06:39 92 H 02/08/24 06:05 36.5 C 88 18 141/70 H 97 02/08/24 03:27 36.4 C L 86 16 104/67 95 O2 Del Method O2 Flow Rate 02/08/24 11:00 Room Air 02/08/24 10:00 Room Air 02/08/24 09:00 Room Air 02/08/24 07:00 Room Air 02/08/24 06:39 02/08/24 06:05 Nasal Cannula 1 02/08/24 03:27 Room Air PG Care Time/CCT Total # of Minutes Spent Total Time Spent with Patient: Total time spent is greater than 50% in coordination of care (as documented) at patient's floor/unit and/or counseling patient: Coding Level of Care Code 08792 SUB INP/OBS CARE Diagnoses Emphysematous cystitis N30.80 Severe sepsis A41.9; R65.20
--- NOTE | 2024-02-08 11:49 | Communication Note ---
Date of Service: February 08, 2024 Ms. Tavares is a 78-year-old woman with medical history of CAD, congestive heart failure with preserved ejection fraction, atrial fibrillation, HTN, type 2 diabetes, severe abdominal stenosis, TIA, rheumatoid arthritis, hypothyroidism and remote history of breast cancer who was admitted to [facility] because of generalized weakness and diarrhea on 02/07/2024. On presentation, she had leukocytosis of 26.6 (ANC 24), significantly elevated lactic acid with anion gap metabolic acidosis and OMA on top of CKD. Shortly after admission, 2 sets of blood culture came back positive for gram-negative bacilli (on Gram stain) which were identified via PCR as E. coli and CTX M gene was negative. CT abdomen and pelvis was performed which showed multiple foci of gas in the perineal area and around the vaginal vault, bladder wall and myometrium of the uterus. As well as within the left femoral vein. There was some concern for Guzman's gangrene. She was evaluated by the surgical team and urology team and Guzman's gangrene was ruled out. At this point, she is being treated for E. coli bacteremia and emphysematous cystitis. Impression: 1. E. coli bacteremia 2. Emphysematous cystitis with complicated urinary tract infection 3. Severe sepsis 4. Anion gap metabolic acidosis 5. OMA on top of CKD Recommendations: Since there are no concerns for Guzman's gangrene and patient's vitals have been stable with available organism which is E. coli with negative CTX M gene, I would recommend de-escalating IV meropenem to IV cefepime pending the E. coli susceptibilities. The treatment should not be different from complicated urinary tract infection likely for a total of 14 days with the possibility of stepping down to an oral regimen on discharge. Thank you for involving us in the care of Ms. Tavares. We will continue to follow.
[2024-02-08] MEDS: CEFEPIME 1,000 MG in SYRINGE 0 ML IV SCH (12:50)
--- NOTE | 2024-02-08 12:53 | Electrocardiogram Report ---
Test Reason : Blood Pressure : */* mmHG Vent. Rate : 90 BPM Atrial Rate : 104 BPM P-R Int : * ms QRS Dur : 90 ms QT Int : 410 ms P-R-T Axes : * 61 47 degrees QTcB Int : 501 ms Atrial fibrillation Prolonged QT Abnormal ECG When compared with ECG of 08-Feb-2024 03:33, No significant change was found Confirmed by Isiah Shepherd ([id number]) on 02/08/2024 12:53:02 PM Referred By: REFERRED SELF Confirmed By: Isiah Shepherd
--- NOTE | 2024-02-08 14:46 | Pharmacy Report ---
Pharmacy Glycemic Short Note 2 - Date of Service February 08, 2024 - Glycemic Short BSG Results (Last 24 hours): 02/07/24 02/07/24 02/07/24 16:18 19:12 20:10 Glucose 215 H POC Glucose 238 H 228 H 02/08/24 02/08/24 02/08/24 00:15 04:04 07:12 Glucose 130 H POC Glucose 185 H 141 H 02/08/24 11:19 Glucose POC Glucose 142 H OUTPATIENT ANTIDIABETIC REGIMEN: * N/A * A1C: 7.4% 02/08/24 ASSESSMENT: * Patient presented acute liver failure, elevated INR and sepsis. BSGs on admission last evening were 238-228-215 mg/dL. * Patient received 8 units of Lantus last evening. BSG this morning was 141 mg/dL. * Will use a moderate stress novolog scale and a conservative Lantus scale based on BSG this evening given minimal PO intake. PLAN FOR INPATIENT GLYCEMIC CONTROL: * Hold outpatient oral diabetes medications * Basal insulin * Lantus 5 or 8 units SQ HS based on BSG- See MAR for details * Bolus insulin * NovoLog per scale ACHS or Q6hrs while NPO * Goal Range: Low 120 mg/dL - High 150 mg/dL * Correction Factor: 30 mg/dL/unit * Nutritional / Prandial insulin per carb ratio of 1 unit per 12 grams CHO consumed
[2024-02-08] MEDS: LANTUS PER UNIT CHARGE SC SCH (20:59)
[2024-02-09 05:25] LABS: Basophils # (auto) 0.04 K/uL (0.00-0.20); Basophils % (auto) 0.3 %; Eosinophils # (auto) 0.03 K/uL (0.00-0.50); Eosinophils % (auto) 0.2 %; Hematocrit (blood only) 32.2 % (37.0-47.0); Hemoglobin 10.6 g/dl (12.0-16.0); Immature Granulocytes # (auto) 0.25 K/uL (0.01-0.20); Immature Granulocytes % (auto) 1.6 %; Lymphocytes # (auto) 1.02 K/uL (1.20-3.40); Lymphocytes % (auto) 6.6 %; Mean Corpuscular Hemoglobin 34.3 pg (25.0-34.0); Mean Corpuscular Hgb Conc 32.9 g/dL (32.0-36.0); Mean Corpuscular Volume 104.2 fL (80.0-100.0); Monocytes % (auto) 4.5 %; Neutrophils # (auto) 13.42 K/uL (1.40-6.50); Neutrophils % (auto) 86.8 %; Nucleated RBC # (auto) 0.07 K/uL (0.00-0.12); Nucleated RBC % (auto) 0.5 %; Platelet Count 83 K/uL (130-400); RDW Coefficient of Variation 14.7 % (11.5-14.5); RDW Standard Deviation 54.7 fL (36.4-46.3); Red Blood Count 3.09 M/uL (4.20-5.40); White Blood Count 15.46 K/ul (4.8-10.8)
[2024-02-09 05:35] LABS: Anion Gap 8 (3-11); BUN Creatinine Ratio 32.2 (10-20); Blood Urea Nitrogen 28 mg/dl (6-23); Calcium 8.1 mg/dl (8.6-10.3); Carbon Dioxide 22 mmol/L (21-32); Chloride 106 mmol/L (98-107); Creatinine Clr Calc Pharmacy 57.6 ml/min; Est GFR (African American) 73.4 ml/min; Est GFR (Non-African American) 63.4 ml/min; Glucose 117 mg/dl (70-99(Fasting)); Potassium 3.7 mmol/L (3.5-5.1); Sodium 136 mmol/L (136-145)
[2024-02-09 05:43] LABS: Albumin Level 3.2 gm/dl (3.4-5.0); Alkaline Phosphatase 80 U/L (34-104); Bilirubin Direct 0.7 mg/dl (0-0.2); Bilirubin,Total 3.4 mg/dl (0.2-1.0); Magnesium 1.8 mg/dl (1.7-2.4); Phosphorus 1.5 mg/dl (2.5-4.9); Total Protein 5.5 gm/dl (6.0-8.3)
[2024-02-09 05:44] LABS: INR 1.2 (0.9-1.1); Prothrombin Time 13.1 Seconds (9.0-12.0)
[2024-02-09 06:02] LABS: Alanine Aminotransferase > 2500 U/L (7-52); Aspartate Aminotransferase 2056 U/L (13-39)
[2024-02-09] MEDS ORDERED: POTASSIUM PHOS 3 MMOL/1 ML INFUSION IV STA (06:08)
[2024-02-09] MEDS: MAGNESIUM SULFATE / D5W 1 GM/100 ML BAG IV SCH (06:28)
[2024-02-09] MEDS: POTASSIUM PHOSPHATE 21 MMOL in SODIUM CHLORIDE 0.9% 500 ML IV ONE (06:32)
--- NOTE | 2024-02-09 07:25 | Hospitalist Progress Note ---
Date of Service February 09, 2024 Assessment & Plan (1) Severe sepsis: (2) Emphysematous cystitis: (3) Lactic acidosis: (4) Troponin level elevated: (5) (HFpEF) heart failure with preserved ejection fraction: (6) Permanent atrial fibrillation: (7) Diabetes mellitus, type II: Plan: Ms. Tavares is a 78-year-old female with history of CAD, CHF with preserved ejection fraction, atrial fibrillation on Coumadin, diabetes type 2, hypertension, severe abdominal stenosis, UTI, TIA, chronic anemia, RA on methotrexate, hypothyroidism, GERD, breast cancer, presented on 02/06 with diarrhea and weakness x 1 week. Admitted for severe sepsis and transferred to ICU on 02/07 for hemodynamic monitoring in ICU and acute liver failure. HDS for over 24 hours,SBP in 120-130s. Rates controlled less than 110 iso permanent a fib Plan to resume home medications in stepwise manner, however, will opt for looser bp control until appetite and mobility much improved. Likely start with lower dose coreg for BB PT/OT ordered #Severe sepsis secondary to complicated UTI, emphysematous cystitis #E coli Bacteremia Pt hypotensive, leukocytosis of 26K on admission, downtrending Lactic acid elevated at 9, downtrending to 2.3 Received NSS at the ER per sepsis protocol procalcitonin elevated at 29 Blood culture 02/06 pansensitive ecoli Urine culture 02/06 pansensitive ecoli Stool culture PCR negative; C. difficile PCR negative Chest x-ray no pneumonia MRSA swab negative Bio fire noting E coli in blood without suggestion of ESBL (CTX-M gene negative) General Surgery consulted, appreciate recs no obvious fourniers gangrene likely severe cystitis, possibly emphysematous urology consulted, appreciate recs Recommended OBGYN given gas foci on CT imaging, if suspicious for Guzman, transfer; suspicion low at this point. 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 rather than Fourniers Recommended Mycolog external cream to labia/vulvar introitus area twice a day #Diarrhea, history of IBS #Chronic idiopathic constipation #FOBT positive iso iron supplementation reports history of diarrhea during times of illness Cdiff negative, stool pcr negative - Follows with [facility] - Last EGD 2017 - Last Colonoscopy 2022 Plan for OP GI follow up Bentyl for cramping Will consider bulking agents/lopermide as needed Advance diet to full liquid/as tolerated # Mechanical Fall secondary to Weakness Xray chest ordered- no acute fractures Lidoderm patch, PRN Tylenol PT/OT ordered #Anion gap metabolic acidosis secondary to lactic acidosis resolved #Acute kidney injury on CKD stage III secondary to sepsis, likely prerenal etiology Resolved CT abdomen pelvis: No obstruction Nephrology consulted, appreciate recs acidosis recolved with sodium bicarb infusion, discontinued 02/07 Continue IV LR @ 80cc, d/c as able #Troponin elevation likely secondary to demand ischemia, severe sepsis Denies cardiac symptoms trop 112,peaked and downtrending EKG no signs of ischemia Echocardiogram with no wall motion abn Continue telemetry monitoring #Acute liver failure, c/f shock liver #Thrombocytopenia iso liver failure ALT undetectable, AST downtrending, bili downtrending CT abdomen/pelvis: Liver unremarkable Likely secondary to sepsis Continue management as above Acute hepatitis panel pending Continue to trend LFTs and INR Hold Coumadin #Ischemic hear disease 2/2 nonobstructive coronary disease #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 Nonischemic nuclear stress test 09/2021 Continue aspirin Hold Lipitor iso NIKA Resume coreg as able #Chronic heart failure with preserved EF #Mild Aortic stebisus - TTE 2022: LVEF 64% - Home diuretics: Lasix 40mg daily, hold - GDMT: *BetaB: Coreg 37.5mg BID *RAAS: documented ADR 2/2 hyperK *Ilia: Spironolactone 25mg daily--held *SGLT: Jardiance 10mg daily--held #Prior TIA 2/2 right vertebral artery stenosis 2016, continue asa hold statin 2/2 CARE HOME #Permanent Atrial fibrillation #Supratherapeutic INR Heart rate controlled INR 4.1, hold Coumadin INR daily Hold carvedilol until blood pressure stable Start DVT ppx #Hypertension #HX of recurrent Hyperkalemia on ACEi Held patients home regimen, resume in stepwise fashion as able: Hydralazine 100mg TID Terazosin 2mg qhs Clonidine 0.1mg BID Amlodipine 5mg daily #Diabetes type 2 Insulin sliding scale Pharmacy glycemic consult #Chronic anemia Hemoglobin stable Continue ferrous sulfate, folic acid #Rheumatoid arthritis On methotrexate-continue to hold until infection has been treated on folate supplementation Other chronic conditions Hypothyroidism-continue synthroid GERD-continue ppi History of breast cancer Severe abdominal aortic aneurysm- bp control DVT prophylaxis INR 4.0, Coumadin on hold heparin sq for plt > 50K CODE STATUS Full code Disposition PT/OT ordered Currently in the ICU requiring critical care Admission and Anticipated Discharge Date Admission Date: February 07, 2024 Subjective NAEO Remains HDS, no pressor requirements, Afebrile with TMAX 36.8 Patient reports abdominal cramping--reports that often when stressed or ill she will have loose stool and cramping Reports pain predominately in suprapubic area, TTP Denies any nausea, vomiting Endorses subjective improvement, but still significantly weak/fatigued Physical Exam Constitutional: weak, ill appearing woman, alert oriented person,place, time, situation Respiratory: normal respiratory effort, lungs clear to auscultation Cardiovascular: irregularly irregular, JEANETH+ Gastrointestinal (Abdomen): TTP suprapubic area Results & Data Results & Data Vital Signs (Past 12 Hours) Vital Signs Temp Pulse Pulse Resp BP BP Pulse Ox 02/09/24 05:00 108 H 24 132/91 95 02/09/24 04:00 36.8 C 105 H 18 140/84 94 02/09/24 03:00 98 H 20 137/82 93 02/09/24 02:00 108 H 18 134/82 95 02/09/24 01:00 115 H 20 123/72 93 02/09/24 00:00 36.8 C 116 H 20 137/96 95 02/08/24 23:00 111 H 15 125/58 L 95 02/08/24 22:00 36.8 C 110 H 21 152/94 H 93 02/08/24 21:00 97 H 21 146/90 H 94 02/08/24 20:00 103 H 19 92 O2 Del Method 02/09/24 05:00 Room Air 02/09/24 04:00 Room Air 02/09/24 03:00 Room Air 02/09/24 02:00 Room Air 02/09/24 01:00 Room Air 02/09/24 00:00 Room Air 02/08/24 23:00 Room Air 02/08/24 22:00 Room Air 02/08/24 21:00 02/08/24 20:00 Laboratory Results Short CBC 02/09/24 Range/Units 04:30 WBC 15.46 H (4.8-10.8) K/ul Hgb 10.6 L (12.0-16.0) g/dl Hct 32.2 L (37.0-47.0) % Plt Count 83 L (130-400) K/uL BMP 02/09/24 04:30 Sodium 136 Potassium 3.7 Chloride 106 Carbon Dioxide 22 BUN 28 H Creatinine 0.87 Glucose 117 H Calcium 8.1 L Liver Function 02/09/24 Range/Units 04:30 Total Bilirubin 3.4 H (0.2-1.0) mg/dl Direct Bilirubin 0.7 H (0-0.2) mg/dl AST 2056 H (13-39) U/L ALT > 2500 H (7-52) U/L Alkaline Phosphatase 80 (34-104) U/L Albumin 3.2 L (3.4-5.0) gm/dl Medications Administered Home Medications Medication Instructions Recorded Confirmed Last Taken aspirin 81 mg tablet,delayed 81 mg PO QAM 04/02/18 02/07/24 01/05/24 release (Ashly Low Dose Aspirin) acetaminophen 500 mg tablet 500 mg PO Q4H PRN Pain 10/02/21 02/07/24 01/25/23 22:00 levothyroxine 25 mcg tablet 25 mcg PO QAM 10/02/21 02/07/24 01/26/23 07:30 atorvastatin 80 mg tablet 80 mg PO DAILY 11/20/21 02/07/24 01/25/23 08:30 ferrous sulfate 325 mg (65 mg 325 mg PO QAM 11/20/21 02/07/24 01/25/23 08:30 iron) tablet carvedilol 25 mg tablet 37.5 mg PO AMPM 11/22/21 02/07/24 01/26/23 07:30 clonidine HCl 0.1 mg tablet 0.1 mg PO AMHS 11/22/21 02/07/24 01/25/23 21:30 sertraline 25 mg tablet 25 mg PO QAM 11/22/21 02/07/24 01/25/23 08:30 terazosin 2 mg capsule 0 mg PO 11/22/21 02/07/24 01/25/23 21:30 cholecalciferol (vitamin D3) 50 50 mcg PO DAILY 03/27/22 02/07/24 01/24/23 08:30 mcg (2,000 unit) capsule (Vitamin D3) amlodipine 5 mg tablet 5 mg PO AMHS 01/05/24 02/07/24 01/05/24 dicyclomine 10 mg capsule 10 mg PO BID PRN Abdominal Pain 01/05/24 02/07/24 Unknown folic acid 1 mg tablet 1 mg PO DAILY 01/05/24 02/07/24 Unknown furosemide 40 mg tablet 40 mg PO QAM 01/05/24 02/07/24 Unknown hydralazine 100 mg tablet 0 mg PO TID 01/05/24 02/07/24 01/05/24 methotrexate sodium 2.5 mg tablet 15 mg PO WK 01/05/24 02/07/24 01/03/24 pregabalin 25 mg capsule 25 mg PO AMHS 01/05/24 02/07/24 Unknown spironolactone 25 mg tablet 25 mg PO QAM 01/05/24 02/07/24 Unknown warfarin 4 mg tablet (Jantoven) See Rx Instructions .Route .COMPLEX 01/05/24 02/07/24 01/04/24 pantoprazole 40 mg tablet,delayed 40 mg PO BID #60 tabs 01/08/24 02/07/24 Unk nown release ascorbate calcium (vitamin C) 500 500 mg PO DAILY 01/10/24 02/07/24 Unknown mg tablet magnesium hydroxide 400 mg/5 mL 5 ml PO DAILY PRN Constipation 01/10/24 02/07/24 Unknown oral suspension (Dulcolax (magnesium hydroxide)) donepezil 5 mg tablet 5 mg PO DAILY #30 tabs 01/12/24 02/07/24 Unknown Active Medications Generic Name Dose Route Start Last Admin Trade Name Freq PRN Reason Stop Dose Admin Aspirin 81 mg 02/08/24 09:00 02/08/24 08:33 Aspirin 81 Mg Ectab PO 03/09/24 08:59 Not Given [facility] Ferrous Sulfate 325 mg 02/08/24 09:00 02/08/24 10:16 Ferrous Sulfate 325 Mg Tab PO 03/09/24 08:59 Not Given [facility] Folic Acid 1 mg 02/08/24 09:00 02/08/24 10:16 Folic Acid 1 Mg Tab PO 03/09/24 08:59 Not Given DAILY DIAMOND Lactated Ringer's 1,000 mls @ 80 mls/hr 02/08/24 11:00 02/08/24 23:57 Lr IV 03/09/24 10:59 80 mls/hr .[id number] DIAMOND Administration Cefepime HCl 1,000 mg/ Syringe 10 mls @ 5 mls/min 02/08/24 12:00 02/08/24 23:57 IV 02/18/24 11:59 5 mls/min Q12H DIAMOND Administration Protocol Magnesium Sulfate/Dextrose 1 gm in 100 mls @ 50 mls/hr 02/09/24 06:15 02/09/24 06:28 Magnesium Sulfate / D5w IV 02/09/24 10:14 50 mls/hr Q2H DIAMOND Administration Potassium Phosphate 21 mmol/ 507 mls @ 145 mls/hr 02/09/24 06:15 02/09/24 06:32 Sodium Chloride IV 02/09/24 09:44 145 mls/hr ONE ONE Administration Insulin Aspart 0 units 02/07/24 16:30 02/08/24 21:00 Insulin Aspart Per Unit Charge SC 03/08/24 16:29 Not Given ACHS [facility] Insulin Glargine 0 units 02/08/24 21:00 02/08/24 20:59 Lantus Per Unit Charge SC 03/09/24 20:59 5 units HS DIAMOND Administration Protocol Lactobacillus Acidophilus 1,250 mg 02/07/24 16:14 02/08/24 10:16 Advanced Probiotic 625 Mg Capsule PO 03/08/24 16:13 Not Given DAILY DIAMOND Levothyroxine Sodium 25 mcg 02/08/24 06:30 02/09/24 05:50 Levothyroxine Sodium 25 Mcg Tablet PO 03/09/24 06:29 25 mcg DAILYBB DIAMOND Administration Lidocaine 1 patch 02/07/24 16:14 02/08/24 09:08 Lidocaine 5% 1 Patch TD 03/08/24 16:13 1 patch QAM DIAMOND Administration Miscellaneous 1 each 02/07/24 21:00 02/08/24 20:45 Remove Lidoderm Patch N/A 03/08/24 20:59 1 each DAILY@2100 DIAMOND Administration Nystatin/Triamcinolone Acetonide 1 appln 02/07/24 23:30 08/13/24 20:45 Nystatin/Triamcin Oint 15 Gm Tube EXT 03/08/24 23:29 1 appln BID DIAMOND Administration Pantoprazole Sodium 40 mg 02/07/24 21:00 02/08/24 20:45 Pantoprazole 40 Mg Tab PO 03/08/24 20:59 40 mg BID DIAMOND Administration Phenazopyridine HCl 100 mg 02/07/24 19:49 02/08/24 20:44 Phenazopyridine Hcl 100 Mg Tab PO 03/08/24 19:48 100 mg TID PRN Administration Dysuria Pregabalin 25 mg 02/07/24 21:00 02/08/24 10:16 Pregabalin 25 Mg Cap PO 03/08/24 20:59 Not Given AMHS DIAMOND Sertraline HCl 25 mg 02/08/24 09:00 02/08/24 10:17 Sertraline Hcl 50 Mg Tablet PO 03/09/24 08:59 Not Given QAM DIAMOND Tramadol HCl 50 mg 02/07/24 16:10 02/08/24 00:17 Tramadol Hcl 50 Mg Tablet PO 03/08/24 16:09 50 mg Q8H PRN Administration Pain
--- NOTE | 2024-02-09 08:18 | Surgery Progress Note ---
Date of Service February 09, 2024 Assessment & Plan (1) Emphysematous cystitis: Plan: severe sepsis responding to abx and conservative treatment if progress stalled or worsens recommend repeat pelvic CT to revisit possible undrained infection WBC improving Admission and Anticipated Discharge Date Admission Date: February 07, 2024 Subjective pelvic pain improved maybe slightly alert and cooperative Review of Systems Constitutional: + anorexia; no fever and no chills Respiratory: no cough and no dyspnea Cardiovascular: no chest pain Gastrointestinal: + abdominal pain and + diarrhea/loose st ools; no nausea and no vomiting Genitourinary: + dysuria Musculoskeletal: no back pain Neurologic: + generalized weakness; no localized wea kness Psychiatric: no behavioral changes Physical Exam Constitutional: WD/WN, vitals as above Respiratory: normal respiratory effort Cardiovascular: Rate/Rhythm: + tachycardic Gastrointestinal (Abdomen): Inspection/Auscultation: abdomen normal to inspection and normal bowel sounds; abdomen not distended Percussion/Palpation: abdomen soft; abdomen nontender, no guarding and abdomen not rigid Musculoskeletal: Head/Neck/Chest: normocephalic and head atraumatic Skin: no rashes, warm and dry perineum with swelling but no fluctuance or crepitus Psychiatric: Orientation: alert Results & Data Vital Signs (Past 12 Hours) Vital Signs Temp Pulse Pulse Resp BP BP Pulse Ox 02/09/24 05:00 108 H 24 132/91 95 02/09/24 04:00 36.8 C 105 H 18 140/84 94 02/09/24 03:00 98 H 20 137/82 93 02/09/24 02:00 108 H 18 134/82 95 02/09/24 01:00 115 H 20 123/72 93 02/09/24 00:00 36.8 C 116 H 20 137/96 95 02/08/24 23:00 111 H 15 125/58 L 95 02/08/24 22:00 36.8 C 110 H 21 152/94 H 93 02/08/24 21:00 97 H 21 146/90 H 94 O2 Del Method 02/09/24 05:00 Room Air 02/09/24 04:00 Room Air 02/09/24 03:00 Room Air 02/09/24 02:00 Room Air 02/09/24 01:00 Room Air 02/09/24 00:00 Room Air 02/08/24 23:00 Room Air 02/08/24 22:00 Room Air 02/08/24 21:00
--- NOTE | 2024-02-09 09:03 | Gastroenterology Progress Note ---
Date of Service February 09, 2024 Assessment & Plan (1) Elevated LFTs: Plan: 78 year old critically ill female w/ history of CAD, CHF, atrial fibrillation on Coumadin, T2DM, HTN, UTI, TIA, chronic anemia, RA on methotrexate, hypothyroidism, GERD, breast cancer admitted to the ICU with hypotension (BP 82/53) severe sepsis due to cystitis - GI asked to evaluate for elevated transaminases which quickly became elevated overnight. She is awake, alert and oriented w/ clear mentation without asterixis on examination. Suspected her INR elevation is due to decreased oral intake and ongoing Coumadin use and her transaminitis is related to shock liver 1. Suspected Shock Liver - Transaminases improving - INR reversed - Supportive care - Management of sepsis - Blood pressure support as needed - Follow acute hepatitis panel - Portal vein US reviewed - CT imaging reviewed - Trend LFTs, INR - Frequent mental status assessments - If any change in mental status, recommend transfer to a tertiary care center 2. Nausea/Vomiting/Diarrhea - Supportive measures - Improving - Stool studies negative - Follow hepatitis panel 3. Fecal occult positive, chronic anemia - Follows with [facility] - Last EGD 2017 - Last Colonoscopy 2022 - Recommend she follows up with her established team for outpatient EGD/Colonoscopy - Can continue oral iron - Trend H&H - Monitor and document GI output - Transfuse PRN per primary team I spent a total of 50 minutes on the date of service in review of patient's record, and previously obtained information in person and appropriate medical visit, discussion and education of plan, with patient and/or caregiver, placing orders for tests/referral/procedures as medically necessary and documentation of pertinent clinical information in patient's medical records for their visit today.Thank you for allowing us to participate in the care of this patient. Please call with any acute changes, questions or concerns. Please see addendum below with additional recommendation from my supervising physician. Admission and Anticipated Discharge Date Admission Date: February 07, 2024 Supervising Physician Co-Signing Physician Notes I saw and examined this patient with our nurse practitioner and agree with her assessment and plan. Liver enzymes are starting to normalize no evidence of hepatic decompensation. Continues to improve from her urosepsis. Continue to monitor her liver enzymes. Subjective Pt was seen and evaluated, chart reviewed. Endorses intermittent lower abd pain/pressure. Has had some loose stools since admission. No nausea, vomiting. Awake, alert and oriented, answering questions appropriately. WBC 26.69 --> 18.51 --> 15.46 PLT 83 INR 4.1 --> over 9.5 --> 1.2 BUN 28, CRM [employer] 0.87 Lactic acid 9.1 --> 7 --> 6.9 --> 5.6 --> 2.2 --> 2.3 Tbili 3.3 --> 1.8 --> 5.1 --> 5 --> 3.4 AST 39 --> 32 --> 34 --> 8328 --> 2056 ALT 23 --> 18 -->22 --> 2500 --> 2500 ALKP 53 --> 49 --> 171 --> 76 --> 80 Lipase 35 + fecal occult Stool cultures negative C.diff negative Acetaminophen/Salicylated level negative Hep A pending Hep B pending Hep C negative Portal Vein US 2023: Patent portal vein. Mild biliary ductal dilation again noted status post cholecystectomy. CTAP 2023: Scattered small foci of gas seen within the perineum near the vaginal introitus/urethra. There is also small foci of gas extending in and around the vaginal wall, bladder wall, and myometrium of the uterus. There are small foci of scattered gas within the deep pelvis which appear to be within the surrounding pelvic veins. There is small focus of gas within the left common femoral vein. These findings are indeterminate and could be due to recent trauma/iatrogenic process such as insertion of a [place] or rectal catheter. However, a gas-forming organism also remains in the differential diagnosis raising the possibility of an emphysematous cystitis. Therefore, clinical correlation recommended. Fluid-filled nondistended loops of large and small bowel. This can be seen in the setting of a diarrheal illness/gastroenteritis. Left-sided nephrolithiasis. No hydronephrosis. Colonic diverticulosis. No evidence for acute diverticulitis.Additional findings as described above. Review of Systems Review of Systems: All other findings negative except as noted in HPI. Physical Exam Constitutional: WD/WN, vitals as above Respiratory: normal respiratory effort, lungs clear to auscultation Cardiovascular: Rate/Rhythm: regular rate Gastrointestinal (Abdomen): normal bowel sounds, soft, nontender, no hepatosplenomegaly Skin: no rashes, warm and dry Results & Data Results & Data Vital Signs (Past 12 Hours) Vital Signs Temp Pulse Pulse Resp BP BP Pulse Ox 02/09/24 05:00 108 H 24 132/91 95 02/09/24 04:00 36.8 C 105 H 18 140/84 94 02/09/24 03:00 98 H 20 137/82 93 02/09/24 02:00 108 H 18 134/82 95 02/09/24 01:00 115 H 20 123/72 93 02/09/24 00:00 36.8 C 116 H 20 137/96 95 02/08/24 23:00 111 H 15 125/58 L 95 02/08/24 22:00 36.8 C 110 H 21 152/94 H 93 02/08/24 21:00 97 H 21 146/90 H 94 O2 Del Method 02/09/24 05:00 Room Air 02/09/24 04:00 Room Air 02/09/24 03:00 Room Air 02/09/24 02:00 Room Air 02/09/24 01:00 Room Air 02/09/24 00:00 Room Air 02/08/24 23:00 Room Air 02/08/24 22:00 Room Air 02/08/24 21:00 Laboratory Results 02/09/24 02/09/24 02/08/24 Range/Units 07:19 04:30 20:49 WBC 15.46 H (4.8-10.8) K/ul RBC 3.09 L (4.20-5.40) M/uL Hgb 10.6 L (12.0-16.0) g/dl Hct 32.2 L (37.0-47.0) % MCV 104.2 H (80.0-100.0) fL MCH 34.3 H (25.0-34.0) pg MCHC 32.9 (32.0-36.0) g/dL RDW Std Deviation 54.7 H (36.4-46.3) fL RDW Coeff of [place]he[place] 14.7 H (11.5-14.5) % Plt Count 83 L (130-400) K/uL MPV 10.0 (9.4-12.4) fL Immature Gran % (Auto) 1.6 % Neut % (Auto) 86.8 % Lymph % (Auto) 6.6 % [place] % (Auto) 4.5 % Eos % (Auto) 0.2 % Baso % (Auto) 0.3 % Neut # (Auto) 13.42 H (1.40-6.50) K/uL Lymph # (Auto) 1.02 L (1.20-3.40) K/uL [place] # (Auto) 0.70 H (0.11-0.59) K/uL Eos # (Auto) 0.03 (0.00-0.50) K/uL Baso # (Auto) 0.04 (0.00-0.20) K/uL Immature Gran # (Auto) 0.25 H (0.01-0.20) K/uL Absolute Nucleated RBC 0.07 (0.00-0.12) K/uL Nucleated RBC % (auto) 0.5 % PT 13.1 H (9.0-12.0) Seconds INR 1.2 H (0.9-1.1) Fibrinogen (184-400) mg/dl Sodium 136 (136-145) mmol/L Potassium 3.7 (3.5-5.1) mmol/L Chloride 106 (98-107) mmol/L Carbon Dioxide 22 (21-32) mmol/L Anion Gap 8 (3-11) BUN 28 H (6-23) mg/dl Creatinine 0.87 (0.6-1.2) mg/dl Est Cr Clr Drug Dosing 57.6 ml/min Est GFR ( Amer) 73.4 ml/min Est GFR (Non-Af Amer) 63.4 ml/min BUN/Creatinine Ratio 32.2 H (10-20) Glucose 117 H (70-99(Fasting)) mg/dl POC Glucose 122 H 148 H (70-99) mg/dl Calcium 8.1 L (8.6-10.3) mg/dl Phosphorus 1.5 L* (2.5-4.9) mg/dl Magnesium 1.8 (1.7-2.4) mg/dl Total Bilirubin 3.4 H (0.2-1.0) mg/dl Direct Bilirubin 0.7 H (0-0.2) mg/dl AST 2056 H (13-39) U/L ALT > 2500 H (7-52) U/L Alkaline Phosphatase 80 (34-104) U/L Ammonia (18-72) umol/L Total Protein 5.5 L (6.0-8.3) gm/dl Albumin 3.2 L (3.4-5.0) gm/dl Stool Occult Bld Scrn (Negative) Hep Bs Antigen (Negative) Hepatitis C Antibody (Negative) Blood Type Antibody Screen Antibody Identification Antibody ID Comment Crossmatch 02/08/24 02/08/24 02/08/24 Range/Units 16:13 11:19 10:09 WBC (4.8-10.8) K/ul RBC (4.20-5.40) M/uL Hgb (12.0-16.0) g/dl Hct (37.0-47.0) % MCV (80.0-100.0) fL MCH (25.0-34.0) pg MCHC (32.0-36.0) g/dL RDW Std Deviation (36.4-46.3) fL RDW Coeff of [place]he[place] (11.5-14.5) % Plt Count (130-400) K/uL MPV (9.4-12.4) fL Immature Gran % (Auto) % Neut % (Auto) % Lymph % (Auto) % [place] % (Auto) % Eos % (Auto) % Baso % (Auto) % Neut # (Auto) (1.40-6.50) K/uL Lymph # (Auto) (1.20-3.40) K/uL [place] # (Auto) (0.11-0.59) K/uL Eos # (Auto) (0.00-0.50) K/uL Baso # (Auto) (0.00-0.20) K/uL Immature Gran # (Auto) (0.01-0.20) K/uL Absolute Nucleated RBC (0.00-0.12) K/uL Nucleated RBC % (auto) % PT (9.0-12.0) Seconds INR (0.9-1.1) Fibrinogen (184-400) mg/dl Sodium (136-145) mmol/L Potassium (3.5-5.1) mmol/L Chloride (98-107) mmol/L Carbon Dioxide (21-32) mmol/L Anion Gap (3-11) BUN (6-23) mg/dl Creatinine (0.6-1.2) mg/dl Est Cr Clr Drug Dosing ml/min Est GFR ( Amer) ml/min Est GFR (Non-Af Amer) ml/min BUN/Creatinine Ratio (10-20) Glucose (70-99(Fasting)) mg/dl POC Glucose 148 H 142 H (70-99) mg/dl Calcium (8.6-10.3) mg/dl Phosphorus (2.5-4.9) mg/dl Magnesium (1.7-2.4) mg/dl Total Bilirubin (0.2-1.0) mg/dl Direct Bilirubin (0-0.2) mg/dl AST (13-39) U/L ALT (7-52) U/L Alkaline Phosphatase (34-104) U/L Ammonia (18-72) umol/L Total Protein (6.0-8.3) gm/dl Albumin (3.4-5.0) gm/dl Stool Occult Bld Scrn (Negative) Hep Bs Antigen (Negative) Hepatitis C Antibody (Negative) Blood Type Antibody Screen Antibody Identification Anti-K Antibody ID Comment Crossmatch See Detail 02/08/24 02/08/24 02/08/24 Range/Units 10:09 09:21 06:50 WBC (4.8-10.8) K/ul RBC (4.20-5.40) M/uL Hgb (12.0-16.0) g/dl Hct (37.0-47.0) % MCV (80.0-100.0) fL MCH (25.0-34.0) pg MCHC (32.0-36.0) g/dL RDW Std Deviation (36.4-46.3) fL RDW Coeff of [place]he[place] (11.5-14.5) % Plt Count (130-400) K/uL MPV (9.4-12.4) fL Immature Gran % (Auto) % Neut % (Auto) % Lymph % (Auto) % [place] % (Auto) % Eos % (Auto) % Baso % (Auto) % Neut # (Auto) (1.40-6.50) K/uL Lymph # (Auto) (1.20-3.40) K/uL [place] # (Auto) (0.11-0.59) K/uL Eos # (Auto) (0.00-0.50) K/uL Baso # (Auto) (0.00-0.20) K/uL Immature Gran # (Auto) (0.01-0.20) K/uL Absolute Nucleated RBC (0.00-0.12) K/uL Nucleated RBC % (auto) % PT (9.0-12.0) Seconds INR (0.9-1.1) Fibrinogen 444 H (184-400) mg/dl Sodium (136-145) mmol/L Potassium (3.5-5.1) mmol/L Chloride (98-107) mmol/L Carbon Dioxide (21-32) mmol/L Anion Gap (3-11) BUN (6-23) mg/dl Creatinine (0.6-1.2) mg/dl Est Cr Clr Drug Dosing ml/min Est GFR ( Amer) ml/min Est GFR (Non-Af Amer) ml/min BUN/Creatinine Ratio (10-20) Glucose (70-99(Fasting)) mg/dl POC Glucose (70-99) mg/dl Calcium (8.6-10.3) mg/dl Phosphorus (2.5-4.9) mg/dl Magnesium (1.7-2.4) mg/dl Total Bilirubin (0.2-1.0) mg/dl Direct Bilirubin (0-0.2) mg/dl AST (13-39) U/L ALT (7-52) U/L Alkaline Phosphatase (34-104) U/L Ammonia 78.0 H (18-72) umol/L Total Protein (6.0-8.3) gm/dl Albumin (3.4-5.0) gm/dl Stool Occult Bld Scrn Positive A (Negative) Hep Bs Antigen Negative (Negative) Hepatitis C Antibody Negative (Negative) Blood Type O Positive Antibody Screen POSITIVE A Antibody Identification Anti-E Antibody ID Comment Crossmatch PG Care Time/CCT Total # of Minutes Spent Total Time Spent with Patient: Total time spent is greater than 50% in coordination of care (as documented) at patient's floor/unit and/or counseling patient: Coding Level of Care Code 13275 SUB INP/OBS CARE 3/50MIN Diagnoses Elevated LFTs R79.89
--- NOTE | 2024-02-09 10:03 | Critical Care Progress Note ---
Date of Service February 09, 2024 Assessment & Plan (1) Acute liver failure: Plan: Impression: 78-year-old female with multiple comorbidities presents to the ICU with severe sepsis due to cystitis, and you development of liver failure. Patient requested monitoring and ICU by gastroenterology this a.m. Neuro - Depressioncontinue Zoloft Cardiac - Currently hemodynamically stable without use of vasopressor support. Atrial fibrillationpatient with persistent atrial fibrillation currently rate controlled on monitor. CADcontinue ASA Respiratory - No history of pulmonary disease. Currently maintaining oxygen saturation on room air. Chest x-ray unremarkable. Continuous monitoring pulse ox GI - N.p.o. for now GERD Continue PPI Acute liver failuremildly improved -Imaging and GI consultation reviewed -Trend LFTs RENAL/LYTES - Creatinine within normal limits. Monitor routine BMPs and replete electrolytes as indicated - Foleystrict I's and O's Emphysematous cystitis ENDO - DM type II Continue basal bolus/sliding scale. ICU hyperglycemic protocol HypothyroidismContinue Synthroid. Rheumatoid arthritisstable. Methotrexate on hold due to underlying liver disease. HEME - Anemiacontinue folic acid, ferrous sulfate. H&H stable, monitor routine CBC Supratherapeutic INR: Resolved -Coverage with Lovenox 1.5 mg/kg daily, give 5 mg Coumadin ID - Sepsislikely urinary source given findings of urinalysis with +4 bacteria and evidence of cystitis on CT abdomen and pelvis. -Pansensitive E. coli, decreasing spectrum to Rocephin x 14 days of effective therapy LINES/IV ACCESS - Peripheral IVs DVT PROPHYLAXIS - SCDs, Coumadin on hold due to supratherapeutic INR CODE STATUS: Full code Critical care needs have largely resolved, stable for downgrade/critical care will sign off please contact us with any questions or concerns. (2) Sepsis: (3) (HFpEF) heart failure with preserved ejection fraction: (4) Lactic acidosis: (5) Emphysematous cystitis: (6) Hypothyroidism: (7) Rheumatoid arthritis: (8) PAF (paroxysmal atrial fibrillation): (9) Diabetes mellitus, type II: (10) GERD (gastroesophageal reflux disease): Admission and Anticipated Discharge Date Admission Date: February 07, 2024 Subjective No overnight events Physical Exam Physical Exam: General: Alert. nontoxic. Skin: Warm, dry, Head: Atraumatic Ears, nose, mouth and throat: airway patent Cardiovascular: Normal peripheral perfusion Respiratory: no respiratory distress Gastrointestinal: Non distended, no guarding no rebound, mild tenderness with moderate to deep palpation, nonsurgical abdomen Musculoskeletal: No deformity Results & Data Results & Data Vital Signs (Past 12 Hours) Vital Signs Temp Pulse Pulse Resp BP BP Pulse Ox 02/09/24 09:33 106 H 21 96 02/09/24 09:00 106 H 22 97 02/09/24 08:57 152/86 H 02/09/24 08:57 152/86 H 02/09/24 08:57 152/86 H 02/09/24 08:54 108 H 22 95 02/09/24 08:30 103 H 17 97 02/09/24 08:12 105 H 22 95 02/09/24 07:42 103 H 14 95 02/09/24 07:00 102 H 21 91 02/09/24 06:42 107 H 17 95 02/09/24 06:03 113 H 38 H 94 02/09/24 06:00 142/89 H 02/09/24 06:00 142/89 H 02/09/24 05:57 112 H 24 94 02/09/24 05:33 105 H 25 H 95 02/09/24 05:03 99 H 38 H 94 02/09/24 05:00 132/91 02/09/24 05:00 132/91 02/09/24 05:00 108 H 24 132/91 95 02/09/24 04:48 116 H 22 94 02/09/24 04:33 117 H 36 H 96 02/09/24 04:06 106 H 19 94 02/09/24 04:00 140/84 02/09/24 04:00 36.8 C 105 H 18 140/84 94 02/09/24 03:45 118 H 19 94 02/09/24 03:33 106 H 20 94 02/09/24 03:03 120 H 19 93 02/09/24 03:00 137/82 02/09/24 03:00 137/82 02/09/24 03:00 137/82 02/09/24 03:00 137/82 02/09/24 03:00 98 H 20 137/82 93 02/09/24 02:48 103 H 20 93 02/09/24 02:00 108 H 18 134/82 95 02/09/24 01:00 115 H 20 123/72 93 02/09/24 00:00 36.8 C 116 H 20 137/96 95 02/08/24 23:00 111 H 15 125/58 L 95 O2 Del Method 02/09/24 09:33 02/09/24 09:00 02/09/24 08:57 02/09/24 08:57 02/09/24 08:57 02/09/24 08:54 02/09/24 08:30 02/09/24 08:12 02/09/24 07:42 02/09/24 07:00 02/09/24 06:42 02/09/24 06:03 02/09/24 06:00 02/09/24 06:00 02/09/24 05:57 02/09/24 05:33 02/09/24 05:03 02/09/24 05:00 02/09/24 05:00 02/09/24 05:00 Room Air 02/09/24 04:48 02/09/24 04:33 02/09/24 04:06 02/09/24 04:00 02/09/24 04:00 Room Air 02/09/24 03:45 02/09/24 03:33 02/09/24 03:03 02/09/24 03:00 02/09/24 03:00 02/09/24 03:00 02/09/24 03:00 02/09/24 03:00 Room Air 02/09/24 02:48 02/09/24 02:00 Room Air 02/09/24 01:00 Room Air 02/09/24 00:00 Room Air 02/08/24 23:00 Room Air Critical Care Results & Data Vital Signs (Past 12 Hours) Vital Signs Temp Pulse Pulse Resp BP BP Pulse Ox 02/09/24 14:53 100 H 22 133/77 02/09/24 14:32 109 H 22 02/09/24 14:06 107 H 19 02/09/24 13:33 105 H 17 02/09/24 13:24 118 H 22 02/09/24 13:00 36.9 C 105 H 02/09/24 12:33 106 H 17 02/09/24 12:00 142/98 H 02/09/24 12:00 113 H 19 02/09/24 12:00 118 H 02/09/24 11:51 104 H 19 02/09/24 11:09 91 H 23 02/09/24 10:33 110 H 19 96 02/09/24 10:00 131/93 02/09/24 09:51 110 H 17 98 02/09/24 09:33 106 H 21 96 02/09/24 09:00 36.8 C 02/09/24 09:00 106 H 22 97 02/09/24 08:57 152/86 H 02/09/24 08:57 152/86 H 02/09/24 08:57 152/86 H 02/09/24 08:54 108 H 22 95 02/09/24 08:30 103 H 17 97 02/09/24 08:12 105 H 22 95 02/09/24 07:42 103 H 14 95 02/09/24 07:00 102 H 21 91 02/09/24 06:42 107 H 17 95 02/09/24 06:03 113 H 38 H 94 02/09/24 06:00 142/89 H 02/09/24 06:00 142/89 H 02/09/24 05:57 112 H 24 94 02/09/24 05:33 105 H 25 H 95 02/09/24 05:03 99 H 38 H 94 02/09/24 05:00 132/91 02/09/24 05:00 132/91 02/09/24 05:00 108 H 24 132/91 95 02/09/24 04:48 116 H 22 94 02/09/24 04:33 117 H 36 H 96 02/09/24 04:06 106 H 19 94 02/09/24 04:00 140/84 02/09/24 04:00 36.8 C 105 H 18 140/84 94 02/09/24 03:45 118 H 19 94 02/09/24 03:33 106 H 20 94 O2 Del Method 02/09/24 14:53 02/09/24 14:32 02/09/24 14:06 02/09/24 13:33 02/09/24 13:24 02/09/24 13:00 02/09/24 12:33 02/09/24 12:00 02/09/24 12:00 02/09/24 12:00 02/09/24 11:51 08/14/24 11:09 02/09/24 10:33 02/09/24 10:00 02/09/24 09:51 02/09/24 09:33 02/09/24 09:00 02/09/24 09:00 02/09/24 08:57 02/09/24 08:57 02/09/24 08:57 02/09/24 08:54 02/09/24 08:30 02/09/24 08:12 02/09/24 07:42 02/09/24 07:00 02/09/24 06:42 02/09/24 06:03 02/09/24 06:00 02/09/24 06:00 02/09/24 05:57 02/09/24 05:33 02/09/24 05:03 02/09/24 05:00 02/09/24 05:00 02/09/24 05:00 Room Air 02/09/24 04:48 02/09/24 04:33 02/09/24 04:06 02/09/24 04:00 02/09/24 04:00 Room Air 02/09/24 03:45 02/09/24 03:33 Lab & Micro Results (Past 24 Hours) RBC 3.09 M/uL (4.20-5.40) L 02/09/24 WBC 15.46 K/ul (4.8-10.8) H 02/09/24 Hgb 10.6 g/dl (12.0-16.0) L 02/09/24 Hct 32.2 % (37.0-47.0) L 02/09/24 MCV 104.2 fL (80.0-100.0) H 02/09/24 MCH 34.3 pg (25.0-34.0) H 02/09/24 MCHC 32.9 g/dL (32.0-36.0) 02/09/24 RDW Standard Deviation 54.7 fL (36.4-46.3) H 02/09/24 RDW Coefficient of Variation 14.7 % (11.5-14.5) H 02/09/24 Plt Count 83 K/uL (130-400) L 02/09/24 MPV 10.0 fL (9.4-12.4) 02/09/24 Nucleated Red Blood Cells % (auto) 0.5 % 02/08 Nucleated RBC Absolute Count (auto) 0.07 K/uL (0.00-0.12) 0 02/09/24 Neutrophils (%) (Auto) 86.8 % 02/09/24 Lymphocytes (%) (Auto) 6.6 % 02/09/24 Monocytes # (Auto) 0.70 K/uL (0.11-0.59) H 02/09/24 Eosinophils # (Auto) 0.03 K/uL (0.00-0.50) 02/09/24 Immature Granulocyte % (Auto) 1.6 % 02/09/24 Neutrophils # (Auto) 13.42 K/uL (1.40-6.50) H 02/09/24 Lymphocytes # (Auto) 1.02 K/uL (1.20-3.40) L 02/09/24 Monocytes # (Auto) 0.70 K/uL (0.11-0.59) H 02/09/24 Eosinophils # (Auto) 0.03 K/uL (0.00-0.50) 02/09/24 Basophils # (Auto) 0.04 K/uL (0.00-0.20) 02/09/24 Immature Granulocyte # (Auto) 0.25 K/uL (0.01-0.20) H 02/08 Na 136 mmol/L (136-145) 02/09/24 K 3.7 mmol/L (3.5-5.1) 02/09/24 Cl 106 mmol/L (98-107) 02/09/24 CO2 22 mmol/L (21-32) 02/09/24 Anion Gap 8 (3-11) 02/09/24 BUN 28 mg/dl (6-23) H 02/09/24 Creatinine 0.87 mg/dl (0.6-1.2) 02/09/24 Estimated GFR ( Amer) 73.4 ml/min 02/09/24 Estimated GFR (Non-Af Amer) 63.4 ml/min 02/09/24 BUN/Creatinine Ratio 32.2 (10-20) H 02/09/24 Glu 117 mg/dl (70-99(Fasting)) H 02/09/24 Ca 8.1 mg/dl (8.6-10.3) L 02/09/24 Phosphorus Level 1.5 mg/dl (2.5-4.9) L* 02/09/24 Total Bilirubin 3.4 mg/dl (0.2-1.0) H 02/09/24 Direct Bilirubin 0.7 mg/dl (0-0.2) H 02/09/24 AST 2056 U/L (13-39) H 02/09/24 ALT > 2500 U/L (7-52) H 02/09/24 Alkaline Phosphatase 80 U/L (34-104) 02/09/24 TP 5.5 gm/dl (6.0-8.3) L 02/09/24 Albumin 3.2 gm/dl (3.4-5.0) L 02/09/24 Mg 1.8 mg/dl (1.7-2.4) 02/09/24 04:30 Calcium Level 8.1 mg/dl (8.6-10.3) L 02/09/24 04:30 Prothromb Time International Ratio 1.2 (0.9-1.1) H 02/09/24 04 :30 Microbiology 02/07/24 Unknown Urine Culture - Final Urine,Clean Catch Escherichia coli 02/07/24 11:31 Aerobic Blood Culture - Final Blood Escherichia coli Anaerobic Blood Culture - Final Escherichia coli I & O Totals 24 Hours 02/08/24 02/09/24 02/10/24 06:59 06:59 06:59 Intake Total 5248.833 / 5248.833 2228.833 / 2228.833 2427 / 2427 Output Total 1153 / 1153 2380 / 2380 1700 / 1700 Balance 4095.833 / 4095.833 -151.167 / -151.167 727 / 727 Cumulative 02/07/24 11:07 thru 02/09/24 14:44 Intake Total 9904.666 Output Total 5233 Balance 4671.666 RT Ventilator Mngmt (Last Documented) Ventilator Ordered Settings Respiratory Rate 22 02/09/24 14:53 Ventilator - PT Measurements Respiratory Rate 22 Coding Level of Care Code 10857 SUB INP/OBS CARE 2/35MIN Diagnoses Acute liver failure K72.00 Sepsis A41.9; R65.21; N17.9 Acute renal failure type: unspecified Sepsis acute organ dysfunction status: with acute organ dysfunction Sepsis type: sepsis due to unspecified organism Severe sepsis acute organ dysfunction type: acute renal failure Severe sepsis shock status: with septic shock (HFpEF) heart failure with preserved ejection fraction I50.30 Lactic acidosis E87.20 Emphysematous cystitis N30.80 Hypothyroidism E03.9 Rheumatoid arthritis M06.9 PAF (paroxysmal atrial fibrillation) I48.0 Diabetes mellitus, type II E11.9 GERD (gastroesophageal reflux disease) K21.9 (2) Sepsis Acute renal failure type: unspecified Sepsis acute organ dysfunction status: with acute organ dysfunction Sepsis type: sepsis due to unspecified organism Severe sepsis acute organ dysfunction type: acute renal failure Severe sepsis shock status: with septic shock Qualified Code(s): A41.9 - Sepsis, unspecified organism; R65.21 - Severe sepsis with septic shock; N17.9 - Acute kidney failure, unspecified
[2024-02-09] MEDS: cefTRIAXone SODIUM 2,000 MG/50 ML BAG IV SCH (11:43)
[2024-02-09] MEDS: ENOXAPARIN 150 MG/ML SYR SQ SCH (11:43)
[2024-02-09] MEDS: WARFARIN SOD 5 MG TAB PO ONE (11:44)
[2024-02-09] MEDS: CALCIUM POLYCARBOPHIL 625MG TAB PO SCH (11:44)
[2024-02-09] MEDS: DICYCLOMINE HCL 10 MG CAP PO SCH (13:00)
--- NOTE | 2024-02-09 13:30 | Urology Progress Note ---
Date of Service February 09, 2024 Assessment & Plan (1) Emphysematous cystitis: (2) Severe sepsis: Plan: Follow-up of emphysematous cystitis, sepsis Patient afebrile, tachycardic Labs reviewedcreatinine 0.87, WBC downtrending (15.46), hemoglobin 10.6 Urine culture with pansensitive E. coli Blood cultures with E. coli Continue with IV antibiotics Continue with Granger catheter for maximum drainage, maintain for at least 1 week Continue to trend labs Continue supportive care, antibiotics and medical management per hospital medicine service Recommend repeat CT if she is worsening or not improving will follow peripherally, please contact our service with any additional questions or concerns Admission and Anticipated Discharge Date Admission Date: February 07, 2024 Subjective Patient seen and examined at bedside. She is resting in bed, arouses easily to her name. Continues to feel tired/weak. No fever or chills. Reports lower abdominal discomfort. No nausea or vomiting. Granger intact. Review of Systems Constitutional: as per Subjective / HPI Genitourinary: as per Subjective / HPI Physical Exam Constitutional: no acute distress Respiratory: no respiratory distress and no labored breathing Gastrointestinal (Abdomen): Percussion/Palpation: abdomen soft; abdomen nontender Musculoskeletal: Head/Neck/Chest: normocephalic Neurologic: moves all extremities and awake Psychiatric: Orientation: alert and oriented x 3 Genitourinary: Granger patent and draining yellow urine Results & Data Vital Signs (Past 12 Hours) Vital Signs Temp Pulse Pulse Resp BP BP Pulse Ox 02/09/24 10:33 110 H 19 96 02/09/24 10:00 131/93 02/09/24 09:51 110 H 17 98 02/09/24 09:33 106 H 21 96 02/09/24 09:00 36.8 C 02/09/24 09:00 106 H 22 97 02/09/24 08:57 152/86 H 02/09/24 08:57 152/86 H 02/09/24 08:57 152/86 H 02/09/24 08:54 108 H 22 95 02/09/24 08:30 103 H 17 97 02/09/24 08:12 105 H 22 95 02/09/24 07:42 103 H 14 95 02/09/24 07:00 102 H 21 91 02/09/24 06:42 107 H 17 95 02/09/24 06:03 113 H 38 H 94 02/09/24 06:00 142/89 H 02/09/24 06:00 142/89 H 02/09/24 05:57 112 H 24 94 02/09/24 05:33 105 H 25 H 95 02/09/24 05:03 99 H 38 H 94 02/09/24 05:00 132/91 02/09/24 05:00 132/91 02/09/24 05:00 108 H 24 132/91 95 02/09/24 04:48 116 H 22 94 02/09/24 04:33 117 H 36 H 96 02/09/24 04:06 106 H 19 94 02/09/24 04:00 140/84 02/09/24 04:00 36.8 C 105 H 18 140/84 94 02/09/24 03:45 118 H 19 94 02/09/24 03:33 106 H 20 94 02/09/24 03:03 120 H 19 93 02/09/24 03:00 137/82 02/09/24 03:00 137/82 02/09/24 03:00 137/82 02/09/24 03:00 137/82 02/09/24 03:00 98 H 20 137/82 93 02/09/24 02:48 103 H 20 93 02/09/24 02:00 108 H 18 134/82 95 O2 Del Method 02/09/24 10:33 02/09/24 10:00 02/09/24 09:51 02/09/24 09:33 02/09/24 09:00 02/09/24 09:00 02/09/24 08:57 02/09/24 08:57 02/09/24 08:57 02/09/24 08:54 02/09/24 08:30 02/09/24 08:12 02/09/24 07:42 02/09/24 07:00 02/09/24 06:42 02/09/24 06:03 02/09/24 06:00 02/09/24 06:00 02/09/24 05:57 02/09/24 05:33 02/09/24 05:03 02/09/24 05:00 02/09/24 05:00 02/09/24 05:00 Room Air 02/09/24 04:48 02/09/24 04:33 02/09/24 04:06 02/09/24 04:00 02/09/24 04:00 Room Air 02/09/24 03:45 02/09/24 03:33 02/09/24 03:03 02/09/24 03:00 02/09/24 03:00 02/09/24 03:00 02/09/24 03:00 02/09/24 03:00 Room Air 02/09/24 02:48 02/09/24 02:00 Room Air PG Care Time/CCT Total # of Minutes Spent Total Time Spent with Patient: Total time spent is greater than 50% in coordination of care (as documented) at patient's floor/unit and/or counseling patient: Coding Level of Care Code 23788 SUB INP/OBS CARE 07/22MIN Diagnoses Emphysematous cystitis N30.80 Severe sepsis A41.9; R65.20
[2024-02-09] MEDS ORDERED: HEPARIN SOD 5,000 UNIT/0.5 ML VIAL SQ SCH (14:00)
[2024-02-09 16:42] LABS: Hepatitis A Antibody IgM NON-REACTIVE (NON-REACTIVE); Hepatitis B Core Antibody IgM NON-REACTIVE (NON-REACTIVE)
[2024-02-09] MEDS: carvediloL 3.125 MG TAB PO SCH (18:05)
[2024-02-10 06:55] LABS: Basophils # (auto) 0.04 K/uL (0.00-0.20); Basophils % (auto) 0.3 %; Eosinophils # (auto) 0.06 K/uL (0.00-0.50); Eosinophils % (auto) 0.4 %; Hematocrit (blood only) 33.4 % (37.0-47.0); Hemoglobin 11.3 g/dl (12.0-16.0); Immature Granulocytes # (auto) 0.38 K/uL (0.01-0.20); Immature Granulocytes % (auto) 2.7 %; Lymphocytes # (auto) 1.21 K/uL (1.20-3.40); Lymphocytes % (auto) 8.5 %; Mean Corpuscular Hemoglobin 34.6 pg (25.0-34.0); Mean Corpuscular Hgb Conc 33.8 g/dL (32.0-36.0); Mean Corpuscular Volume 102.1 fL (80.0-100.0); Mean Platelet Volume 9.7 fL (9.4-12.4); Monocytes # (auto) 0.84 K/uL (0.11-0.59); Monocytes % (auto) 5.9 %; Neutrophils # (auto) 11.71 K/uL (1.40-6.50); Neutrophils % (auto) 82.2 %; Nucleated RBC # (auto) 0.02 K/uL (0.00-0.12); Nucleated RBC % (auto) 0.1 %; Platelet Count 88 K/uL (130-400); RDW Coefficient of Variation 14.3 % (11.5-14.5); RDW Standard Deviation 53.2 fL (36.4-46.3); Red Blood Count 3.27 M/uL (4.20-5.40); White Blood Count 14.24 K/ul (4.8-10.8)
[2024-02-10 07:07] LABS: BUN Creatinine Ratio 20.5 (10-20); Calcium 8.5 mg/dl (8.6-10.3); Creatinine Clr Calc Pharmacy 68.2 ml/min; Est GFR (African American) 90.8 ml/min; Est GFR (Non-African American) 78.3 ml/min; Potassium 4.3 mmol/L (3.5-5.1)
[2024-02-10 07:18] LABS: INR 1.1 (0.9-1.1)
[2024-02-10 07:25] LABS: Albumin Level 3.2 gm/dl (3.4-5.0); Bilirubin Direct 0.5 mg/dl (0-0.2); Bilirubin,Total 2.4 mg/dl (0.2-1.0); Magnesium 1.7 mg/dl (1.7-2.4); Phosphorus 2.1 mg/dl (2.5-4.9); Total Protein 5.6 gm/dl (6.0-8.3)
[2024-02-10] MEDS: metroNIDAZOLE 500 MG/100 ML BAG IV SCH (08:11)
[2024-02-10] MEDS ORDERED: SODIUM PHOSPHATE 3 MMOL/1 ML INFUSION IV STA (08:15)
--- NOTE | 2024-02-10 08:23 | Surgery Progress Note ---
Date of Service February 10, 2024 Assessment & Plan (1) Emphysematous cystitis: Plan: con't abx per medical team no perineal infection will sign off Admission and Anticipated Discharge Date Admission Date: February 07, 2024 Subjective more alert perineal pain improved Review of Systems Constitutional: no fever and no chills Respiratory: no cough and no dyspnea Cardiovascular: no chest pain Gastrointestinal: no abdominal pain, no nausea and no vomiting Physical Exam Constitutional: WD/WN, vitals as above Respiratory: normal respiratory effort Cardiovascular: Rate/Rhythm: + tachycardic Gastrointestinal (Abdomen): Inspection/Auscultation: abdomen normal to inspection and normal bowel sounds; abdomen not distended Percussion/Palpation: abdomen soft; abdomen nontender, no guarding and abdomen not rigid Skin: no rashes, warm and dry Results & Data Vital Signs (Past 12 Hours) Vital Signs Temp Pulse Pulse Resp BP Pulse Ox O2 Del Method 02/10/24 07:00 Room Air 02/10/24 03:12 36.7 C 118 H 18 124/76 95 Room Air 02/09/24 23:05 101 H 02/09/24 22:58 36.6 C 111 H 18 146/86 H 94 Room Air
--- NOTE | 2024-02-10 09:17 | Gastroenterology Progress Note ---
Date of Service February 10, 2024 Assessment & Plan (1) Elevated LFTs: Plan: 78 year old critically ill female w/ history of CAD, CHF, atrial fibrillation on Coumadin, T2DM, HTN, UTI, TIA, chronic anemia, RA on methotrexate, hypothyroidism, GERD, breast cancer admitted to the ICU with hypotension (BP 82/53) severe sepsis due to cystitis - GI asked to evaluate for elevated transaminases which quickly became elevated overnight. She is awake, alert and oriented w/ clear mentation without asterixis on examination. Suspected her INR elevation is due to decreased oral intake and ongoing Coumadin use and her transaminitis is related to shock liver 1. Suspected Shock Liver - Transaminases improving - INR reversed - Supportive care - Management of sepsis - Blood pressure support as needed - Follow acute hepatitis panel - Portal vein US reviewed - CT imaging reviewed - Trend LFTs, INR - Frequent mental status assessments - If any change in mental status, recommend transfer to a tertiary care center 2. Nausea/Vomiting/Diarrhea - Supportive measures - Improving - Stool studies negative - Follow hepatitis panel 3. Fecal occult positive, chronic anemia - Follows with [facility] - Last EGD 2017 - Last Colonoscopy 2022 - Recommend she follows up with her established team for outpatient EGD/Colonoscopy - Can continue oral iron - Trend H&H - Monitor and document GI output - Transfuse PRN per primary team Recall GI as needed. I spent a total of 50 minutes on the date of service in review of patient's record, and previously obtained information in person and appropriate medical visit, discussion and education of plan, with patient and/or caregiver, placing orders for tests/referral/procedures as medically necessary and documentation of pertinent clinical information in patient's medical records for their visit today.Thank you for allowing us to participate in the care of this patient. Please call with any acute changes, questions or concerns. Please see addendum below with additional recommendation from my supervising physician. Admission and Anticipated Discharge Date Admission Date: February 07, 2024 Supervising Physician Co-Signing Physician Notes I saw and examined this patient with our nurse practitioner and agree with her assessment and plan. Enzymes continue to normalize. No signs of hepatic decompensation. Abdominal exam soft nontender no masses no hepatomegaly. Continue to monitor her liver tests as she continues to improve. Subjective Transferred to . Feeling well. Less abd pain. No nausea, vomiting. Tolerating PO intake. WBC 26.69 --> 18.51 --> 15.46 --> 14.24 PLT 88 INR 4.1 --> over 9.5 --> 1.2 --> 1.1 BUN 15, [employer] 0.73 Lactic acid 9.1 --> 7 --> 6.9 --> 5.6 --> 2.2 --> 2.3 Tbili 3.3 --> 1.8 --> 5.1 --> 5 --> 3.4 --> 2.4 AST 39 --> 32 --> 34 --> 8328 --> 2056 --> 628 ALT 23 --> 18 -->22 --> 2500 --> 2500 --> 1613 ALKP 53 --> 49 --> 171 --> 76 --> 80 --> 100 Lipase 35 + fecal occult Stool cultures negative C.diff negative Acetaminophen/Salicylated level negative Hep A/B/C negative Portal Vein US 2023: Patent portal vein. Mild biliary ductal dilation again noted status post cholecystectomy. CTAP 2023: Scattered small foci of gas seen within the perineum near the vaginal introitus/urethra. There is also small foci of gas extending in and around the vaginal wall, bladder wall, and myometrium of the uterus. There are small foci of scattered gas within the deep pelvis which appear to be within the surrounding pelvic veins. There is small focus of gas within the left common femoral vein. These findings are indeterminate and could be due to recent trauma/iatrogenic process such as insertion of a Granger or rectal catheter. However, a gas-forming organism also remains in the differential diagnosis raising the possibility of an emphysematous cystitis. Therefore, clinical correlation recommended. Fluid-filled nondistended loops of large and small bowel. This can be seen in the setting of a diarrheal illness/gastroenteritis. Left-sided nephrolithiasis. No hydronephrosis. Colonic diverticulosis. No evidence for acute diverticulitis.Additional findings as described above. Review of Systems Review of Systems: All other findings negative except as noted in HPI. Physical Exam Constitutional: WD/WN, vitals as above Respiratory: normal respiratory effort, lungs clear to auscultation Gastrointestinal (Abdomen): normal bowel sounds, soft, nontender, no hepatosplenomegaly Skin: no rashes, warm and dry Results & Data Results & Data Vital Signs (Past 12 Hours) Vital Signs Temp Pulse Pulse Resp BP Pulse Ox O2 Del Method 02/10/24 08:39 115 H 02/10/24 07:37 36.7 C 96 H 17 139/86 96 Room Air 02/10/24 07:00 Room Air 02/10/24 03:12 36.7 C 118 H 18 124/76 95 Room Air 02/09/24 23:05 101 H 02/09/24 22:58 36.6 C 111 H 18 146/86 H 94 Room Air Laboratory Results 02/10/24 02/10/24 02/09/24 Range/Units 07:37 06:09 19:49 WBC 14.24 H (4.8-10.8) K/ul RBC 3.27 L (4.20-5.40) M/uL Hgb 11.3 L (12.0-16.0) g/dl Hct 33.4 L (37.0-47.0) % MCV 102.1 H (80.0-100.0) fL MCH 34.6 H (25.0-34.0) pg MCHC 33.8 (32.0-36.0) g/dL RDW Std Deviation 53.2 H (36.4-46.3) fL RDW Coeff of Farheen 14.3 (11.5-14.5) % Plt Count 88 L (130-400) K/uL MPV 9.7 (9.4-12.4) fL Immature Gran % (Auto) 2.7 % Neut % (Auto) 82.2 % Lymph % (Auto) 8.5 % Amite % (Auto) 5.9 % Eos % (Auto) 0.4 % Baso % (Auto) 0.3 % Neut # (Auto) 11.71 H (1.40-6.50) K/uL Lymph # (Auto) 1.21 (1.20-3.40) K/uL Am[place] # (Auto) 0.84 H (0.11-0.59) K/uL Eos # (Auto) 0.06 (0.00-0.50) K/uL Baso # (Auto) 0.04 (0.00-0.20) K/uL Immature Gran # (Auto) 0.38 H (0.01-0.20) K/uL Absolute Nucleated RBC 0.02 (0.00-0.12) K/uL Nucleated RBC % (auto) 0.1 % PT 12.0 (9.0-12.0) Seconds INR 1.1 (0.9-1.1) Sodium 139 (136-145) mmol/L Potassium 4.3 (3.5-5.1) mmol/L Chloride 106 (98-107) mmol/L Carbon Dioxide 28 (21-32) mmol/L Anion Gap 5 (3-11) BUN 15 (6-23) mg/dl Creatinine 0.73 (0.6-1.2) mg/dl Est Cr Clr Drug Dosing 68.2 ml/min Est GFR ( Amer) 90.8 ml/min Est GFR (Non-Af Amer) 78.3 ml/min BUN/Creatinine Ratio 20.5 H (10-20) Glucose 117 H (70-99(Fasting)) mg/dl POC Glucose 122 H 134 H (70-99) mg/dl Calcium 8.5 L (8.6-10.3) mg/dl Phosphorus 2.1 L (2.5-4.9) mg/dl Magnesium 1.7 (1.7-2.4) mg/dl Total Bilirubin 2.4 H (0.2-1.0) mg/dl Direct Bilirubin 0.5 H (0-0.2) mg/dl AST 628 H (13-39) U/L ALT 1613 H (7-52) U/L Alkaline Phosphatase 100 (34-104) U/L Total Protein 5.6 L (6.0-8.3) gm/dl Albumin 3.2 L (3.4-5.0) gm/dl Hepatitis A IgM Ab (NON-REACTIVE) Hep B Core IgM Ab (NON-REACTIVE) 02/09/24 02/09/24 02/08/24 Range/Units 16:36 11:10 06:50 WBC (4.8-10.8) K/ul RBC (4.20-5.40) M/uL Hgb (12.0-16.0) g/dl Hct (37.0-47.0) % MCV (80.0-100.0) fL MCH (25.0-34.0) pg MCHC (32.0-36.0) g/dL RDW Std Deviation (36.4-46.3) fL RDW Coeff of Farheen (11.5-14.5) % Plt Count (130-400) K/uL MPV (9.4-12.4) fL Immature Gran % (Auto) % Neut % (Auto) % Lymph % (Auto) % [place] % (Auto) % Eos % (Auto) % Baso % (Auto) % Neut # (Auto) (1.40-6.50) K/uL Lymph # (Auto) (1.20-3.40) K/uL Amite # (Auto) (0.11-0.59) K/uL Eos # (Auto) (0.00-0.50) K/uL Baso # (Auto) (0.00-0.20) K/uL Immature Gran # (Auto) (0.01-0.20) K/uL Absolute Nucleated RBC (0.00-0.12) K/uL Nucleated RBC % (auto) % PT (9.0-12.0) Seconds INR (0.9-1.1) Sodium (136-145) mmol/L Potassium (3.5-5.1) mmol/L Chloride (98-107) mmol/L Carbon Dioxide (21-32) mmol/L Anion Gap (3-11) BUN (6-23) mg/dl Creatinine (0.6-1.2) mg/dl Est Cr Clr Drug Dosing ml/min Est GFR ( Amer) ml/min Est GFR (Non-Af Amer) ml/min BUN/Creatinine Ratio (10-20) Glucose (70-99(Fasting)) mg/dl POC Glucose 118 H 159 H (70-99) mg/dl Calcium (8.6-10.3) mg/dl Phosphorus (2.5-4.9) mg/dl Magnesium (1.7-2.4) mg/dl Total Bilirubin (0.2-1.0) mg/dl Direct Bilirubin (0-0.2) mg/dl AST (13-39) U/L ALT (7-52) U/L Alkaline Phosphatase (34-104) U/L Total Protein (6.0-8.3) gm/dl Albumin (3.4-5.0) gm/dl Hepatitis A IgM Ab NON-REACTIVE (NON-REACTIVE) Hep B Core IgM Ab NON-REACTIVE (NON-REACTIVE) PG Care Time/CCT Total # of Minutes Spent Total Time Spent with Patient: Total time spent is greater than 50% in coordination of care (as documented) at patient's floor/unit and/or counseling patient: Coding Level of Care Code 23641 SUB INP/OBS CARE 3/50MIN Diagnoses Elevated LFTs R79.89
[2024-02-10] MEDS: SODIUM PHOSPHATE 15 MMOL in SODIUM CHLORIDE 0.9% 250 ML IV ONE (10:17)
--- NOTE | 2024-02-10 13:46 | Pharmacy Report ---
Pharmacy Glycemic Short Note 2 - Date of Service February 10, 2024 - Glycemic Short BSG Results (Last 24 hours): 02/09/24 02/09/24 02/10/24 16:36 19:49 06:09 Glucose 117 H POC Glucose 118 H 134 H 02/10/24 02/10/24 07:37 11:39 Glucose POC Glucose 122 H 184 H OUTPATIENT ANTIDIABETIC REGIMEN: * N/A * A1C: 7.4% 02/08/24 ASSESSMENT: 02/09: * [place] received 10 units of insulin yesterday (10 were basal) * Fasting BSG within goal range, diet advanced today, no indication to increase basal insulin at this time, will continue to monitor * BSGs well controlled, slight increase at lunchtime today with diet advancement, will slightly tighten carbohydrate ratio. 02/07: * Patient presented acute liver failure, elevated INR and sepsis. BSGs on admission last evening were 238-228-215 mg/dL. * Patient received 8 units of Lantus last evening. BSG this morning was 141 mg/dL. * Will use a moderate stress novolog scale and a conservative Lantus scale based on BSG this evening given minimal PO intake. PLAN FOR INPATIENT GLYCEMIC CONTROL: * Hold outpatient oral diabetes medications * Basal insulin * Lantus 5 or 8 units SQ HS based on BSG- See MAR for details * Bolus insulin * NovoLog per scale ACHS or Q6hrs while NPO * Goal Range: Low 120 mg/dL - High 150 mg/dL * Correction Factor: 30 mg/dL/unit * Nutritional / Prandial insulin per carb ratio of 1 unit per 10 grams CHO consumed
--- NOTE | 2024-02-10 14:49 | Hospitalist Progress Note ---
Date of Service February 10, 2024 Assessment & Plan (1) Severe sepsis: (2) Emphysematous cystitis: (3) Lactic acidosis: (4) Troponin level elevated: (5) (HFpEF) heart failure with preserved ejection fraction: (6) Permanent atrial fibrillation: (7) Diabetes mellitus, type II: Plan: Ms. Tavares is a 78-year-old female with history of CAD, CHF with preserved ejection fraction, atrial fibrillation on Coumadin, diabetes type 2, hypertension, severe abdominal stenosis, UTI, TIA, chronic anemia, RA on methotrexate, hypothyroidism, GERD, breast cancer, presented on 02/06 with diarrhea and weakness x 1 week. Admitted for severe sepsis and transferred to ICU on 02/07 for hemodynamic monitoring in ICU and acute liver failure. HDS for over 24 hours,SBP in 120-130s. Rates controlled less than 110 iso permanent a fib Plan to resume home medications in stepwise manner, however, will opt for looser bp control until appetite and mobility much improved. Likely start with lower dose coreg for BB PT/OT: recommended SNF, family declined. Recommends HH otherwise #Severe sepsis secondary to complicated UTI, emphysematous cystitis #E coli Bacteremia Pt hypotensive, leukocytosis of 26K on admission, downtrending Lactic acid elevated at 9, downtrending to 2.3 Received NSS at the ER per sepsis protocol procalcitonin elevated at 29 Blood culture 02/06 pansensitive ecoli Urine culture 02/06 pansensitive ecoli Stool culture PCR negative; C. difficile PCR negative Chest x-ray no pneumonia MRSA swab negative Bio fire noting E coli in blood without suggestion of ESBL (CTX-M gene negative) General Surgery consulted, appreciate recs no obvious fourniers gangrene likely severe cystitis, possibly emphysematous urology consulted, appreciate recs Recommended OBGYN given gas foci on CT imaging, if suspicious for Guzman, transfer; suspicion low at this point. ID consulted, appreciate recs Initially on Imipenem 250 mg every 8 hours- switched to Cefepime per ID recs No concern for Guzman gangrene, continue Cefepime Treatment likely for duration of 14 days Treatment narrowed to CTX/Flagyl (given gi sx) GUEST RELATIONS OFFICER consulted appreciate recs suspected Atrophic vaginitis rather than Fourniers Recommended Mycolog external cream to labia/vulvar introitus area twice a day #Diarrhea, history of IBS #Chronic idiopathic constipation #FOBT positive iso iron supplementation reports history of diarrhea during times of illness Cdiff negative, stool pcr negative - Follows with [facility] - Last EGD 2017 - Last Colonoscopy 2022 Plan for OP GI follow up Bentyl for cramping Will consider bulking agents/lopermide as needed Advance diet to full liquid/as tolerated # Mechanical Fall secondary to Weakness Xray chest ordered- no acute fractures Lidoderm patch, PRN Tylenol PT/OT HH on d/c #Anion gap metabolic acidosis secondary to lactic acidosis resolved #Acute kidney injury on CKD stage III secondary to sepsis, likely prerenal etiology Resolved CT abdomen pelvis: No obstruction Nephrology consulted, appreciate recs acidosis recolved with sodium bicarb infusion, discontinued 02/07 discontinue IV LR @ 80cc #Troponin elevation likely secondary to demand ischemia, severe sepsis Denies cardiac symptoms trop 112,peaked and downtrending EKG no signs of ischemia Echocardiogram with no wall motion abn Continue telemetry monitoring #Acute liver failure, c/f shock liver *improving #Thrombocytopenia iso liver failure *improving ALT undetectable, AST downtrending, bili downtrending CT abdomen/pelvis: Liver unremarkable Likely secondary to sepsis Continue management as above Acute hepatitis panel pending Continue to trend LFTs and INR Lovenox bridge, Warfarin po daily #Ischemic hear disease 2/2 nonobstructive coronary disease #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 Nonischemic nuclear stress test 09/2021 Continue aspirin Hold Lipitor iso NIKA Resume coreg as able -Increase to 6.25mg BID coreg #Chronic heart failure with preserved EF #Mild Aortic stenosis - TTE 2022: LVEF 64% - Home diuretics: Lasix 40mg daily, hold - GDMT: *BetaB: Coreg 37.5mg BID *RAAS: documented ADR 2/2 hyperK *Ilia: Spironolactone 25mg daily--held *SGLT: Jardiance 10mg daily--held (will discontinue given recurrent UTI) #Prior TIA 2/2 right vertebral artery stenosis 2016, continue asa hold statin 2/2 [facility] #Permanent Atrial fibrillation #Supratherapeutic INR *resolved Heart rate controlled INR 4.1, hold Coumadin INR daily Hold carvedilol until blood pressure stable Start DVT ppx #Hypertension #HX of recurrent Hyperkalemia on ACEi Held patients home regimen, resume in stepwise fashion as able: No longer on Hydralazine/Terazosin Clonidine 0.1mg BID (hold) Amlodipine 5mg BID (hold) #Diabetes type 2 Insulin sliding scale Pharmacy glycemic consult #Chronic anemia Hemoglobin stable Continue ferrous sulfate, folic acid #Rheumatoid arthritis On methotrexate-continue to hold until infection has been treated on folate supplementation Other chronic conditions Hypothyroidism-continue synthroid GERD-continue ppi History of breast cancer Severe abdominal aortic aneurysm- bp control DVT prophylaxis INR 1.1 resumed coumadin CODE STATUS Full code Disposition PT/OT: declined rehab, plan PCU, likely 2-3 days Admission and Anticipated Discharge Date Admission Date: February 07, 2024 Subjective NAEO reports feeling much improved even since day prior Reports significant improvement in abdominal pain Able to walk some distance today in room and states that she will not go to a rehab at bedside, brought updated medication list and reflected change in med rec Physical Exam Constitutional: WD/WN, vitals as above Respiratory: normal respiratory effort, lungs clear to auscultation Cardiovascular: irregularly irregular Gastrointestinal (Abdomen): suprapubic tenderness in lower abdomen Results & Data Results & Data Vital Signs (Past 12 Hours) Vital Signs Temp Pulse Resp BP Pulse Ox O2 Del Method 02/10/24 11:00 36.6 C 118 H 17 126/81 97 Room Air 02/10/24 08:39 115 H 02/10/24 07:37 36.7 C 96 H 17 139/86 96 Room Air 02/10/24 07:00 Room Air 02/10/24 03:12 36.7 C 118 H 18 124/76 95 Room Air Laboratory Results Short CBC 02/10/24 Range/Units 06:09 WBC 14.24 H (4.8-10.8) K/ul Hgb 11.3 L (12.0-16.0) g/dl Hct 33.4 L (37.0-47.0) % Plt Count 88 L (130-400) K/uL BMP 02/10/24 06:09 Sodium 139 Potassium 4.3 Chloride 106 Carbon Dioxide 28 BUN 15 Creatinine 0.73 Glucose 117 H Calcium 8.5 L Liver Function 02/10/24 Range/Units 06:09 Total Bilirubin 2.4 H (0.2-1.0) mg/dl Direct Bilirubin 0.5 H (0-0.2) mg/dl AST 628 H (13-39) U/L ALT 1613 H (7-52) U/L Alkaline Phosphatase 100 (34-104) U/L Albumin 3.2 L (3.4-5.0) gm/dl Medications Administered Home Medications Medication Instructions Recorded Confirmed Last Taken aspirin 81 mg tablet,delayed 81 mg PO QAM 04/02/18 02/07/24 01/05/24 release (Ashly Low Dose Aspirin) acetaminophen 500 mg tablet 500 mg PO Q4H PRN Pain 10/02/21 02/07/24 01/25/23 22:00 levothyroxine 25 mcg tablet 25 mcg PO QAM 10/02/21 02/07/24 01/26/23 07:30 atorvastatin 80 mg tablet 80 mg PO DAILY 11/20/21 02/07/24 01/25/23 08:30 ferrous sulfate 325 mg (65 mg 325 mg PO QA 11/20/21 02/07/24 01/25/23 08:30 iron) tablet carvedilol 25 mg tablet 37.5 mg PO AMPM 11/22/21 02/07/24 01/26/23 07:30 clonidine HCl 0.1 mg tablet 0.1 mg PO [facility] 11/22/21 02/07/24 01/25/23 21:30 sertraline 25 mg tablet 25 mg PO QAM 11/22/21 02/07/24 01/25/23 08:30 cholecalciferol (vitamin D3) 50 50 mcg PO DAILY 03/27/22 02/07/24 01/24/23 08:30 mcg (2,000 unit) capsule (Vitamin D3) amlodipine 5 mg tablet 5 mg PO [facility] 01/05/24 02/07/24 01/05/24 dicyclomine 10 mg capsule 10 mg PO BID PRN Abdominal Pain 01/05/24 02/07/24 Unknown folic acid 1 mg tablet 1 mg PO DAILY 01/05/24 02/07/24 Unknown furosemide 40 mg tablet 40 mg PO QAM 01/05/24 02/07/24 Unknown methotrexate sodium 2.5 mg tablet 15 mg PO WK 01/05/24 02/07/24 01/03/24 pregabalin 25 mg capsule 25 mg PO [facility] 01/05/24 02/07/24 Unknown spironolactone 25 mg tablet 25 mg PO QAM 01/05/24 02/07/24 Unknown warfarin 4 mg tablet (Jantoven) See Rx Instructions .Route .COMPLEX 01/05/24 02/07/24 01/04/24 pantoprazole 40 mg tablet,delayed 40 mg PO BID #60 tabs 01/08/24 02/07/24 Unknown release ascorbate calcium (vitamin C) 500 500 mg PO DAILY 01/10/24 02/07/24 Unknown mg tablet magnesium hydroxide 400 mg/5 mL 5 ml PO DAILY PRN Constipation 01/10/24 02/07/24 Unknown oral suspension (Dulcolax (magnesium hydroxide)) empagliflozin 10 mg tablet 10 mg PO DAILY 02/10/24 02/10/24 Unknown (Jardiance) Active Medications Generic Name Dose Route Start Last Admin Trade Name Freq PRN Reason Stop Dose Admin Aspirin 81 mg 02/08/24 09:00 02/10/24 10:38 Aspirin 81 Mg Ectab PO 03/09/24 08:59 81 mg QAM DIAMOND Administration Calcium Polycarbophil 625 mg 02/09/24 10:15 02/10/24 09:50 Calcium Polycarbophil 625mg Tab PO 02/10/24 21:01 625 mg BID DIAMOND Administration Dicyclomine HCl 10 mg 02/09/24 13:00 02/10/24 12:44 Dicyclomine Hcl 10 Mg Cap PO 03/10/24 12:59 10 mg QID DIAMOND Administration Enoxaparin Sodium 135 mg 02/09/24 11:00 02/10/24 11:12 Enoxaparin 150 Mg/Ml Syr SQ 03/10/24 10:59 135 mg Q24H DIAMOND Administration Ferrous Sulfate 325 mg 02/08/24 09:00 02/10/24 09:51 Ferrous Sulfate 325 Mg Tab PO 03/09/24 08:59 325 mg QAM DIAMOND Administration Folic Acid 1 mg 02/08/24 09:00 02/10/24 09:51 Folic Acid 1 Mg Tab PO 03/09/24 08:59 1 mg DAILY DIAMOND Administration Lactated Ringer's 1,000 mls @ 80 mls/hr 02/08/24 11:00 02/10/24 15:14 Lr IV 03/09/24 10:59 Infused .[id number] DIAMOND Infusion Ceftriaxone Sodium 2,000 mg in 50 mls @ 100 mls/hr 02/09/24 12:00 02/10/24 14:34 Rocephin IV 02/22/24 23:59 Infused Q24H DIAMOND Infusion Metronidazole 500 mg in 100 mls @ 100 mls/hr 02/10/24 07:30 02/10/24 15:10 Flagyl IV 02/12/24 07:29 100 mls/hr Q8H DIAMOND Administration Protocol Insulin Aspart 0 units 02/07/24 16:30 02/10/24 12:24 Insulin Aspart Per Unit Charge SC 03/08/24 16:29 6 units ACHS DIAMOND Administration Insulin Glargine 0 units 02/08/24 21:00 02/09/24 20:07 Lantus Per Unit Charge SC 03/09/24 20:59 5 units HS DIAMOND Administration Protocol Lactobacillus Acidophilus 1,250 mg 02/07/24 16:14 02/10/24 09:51 Advanced Probiotic 625 Mg Capsule PO 03/08/24 16:13 1,250 mg DAILY DIAMOND Administration Levothyroxine Sodium 25 mcg 02/08/24 06:30 02/10/24 06:24 Levothyroxine Sodium 25 Mcg Tablet PO 03/09/24 06:29 25 mcg DAILYBB DIAMOND Administration Lidocaine 1 patch 02/07/24 16:14 02/10/24 09:51 Lidocaine 5% 1 Patch TD 03/08/24 16:13 1 patch QAM DIAMOND Administration Miscellaneous 1 each 02/07/24 21:00 02/09/24 19:42 Remove Lidoderm Patch N/A 03/08/24 20:59 1 each DAILY@2100 DIAMOND Administration Nystatin/Triamcinolone Acetonide 1 appln 02/07/24 23:30 02/10/24 09:50 Nystatin/Triamcin Oint 15 Gm Tube EXT 03/08/24 23:29 1 appln BID DIAMOND Administration Pantoprazole Sodium 40 mg 02/07/24 21:00 02/10/24 09:51 Pantoprazole 40 Mg Tab PO 03/08/24 20:59 40 mg BID DIAMOND Administration Phenazopyridine HCl 100 mg 02/07/24 19:49 02/08/24 20:44 Phenazopyridine Hcl 100 Mg Tab PO 03/08/24 19:48 100 mg TID PRN Administration Dysuria Pregabalin 25 mg 02/07/24 21:00 02/08/24 10:16 Pregabalin 25 Mg Cap PO 03/08/24 20:59 Not Given AMHS DIAMOND Sertraline HCl 25 mg 02/08/24 09:00 02/10/24 10:17 Sertraline Hcl 50 Mg Tablet PO 03/09/24 08:59 25 mg QAM DIAMOND Administration Tramadol HCl 50 mg 02/07/24 16:10 02/08/24 00:17 Tramadol Hcl 50 Mg Tablet PO 03/08/24 16:09 50 mg Q8H PRN Administration Pain
[2024-02-10] MEDS: WARFARIN SOD 5 MG TAB PO SCH (16:17)
[2024-02-10] MEDS: carvediloL 6.25 MG TAB PO SCH (17:27)
[2024-02-11 07:54] LABS: INR 1.5 (0.9-1.1)
[2024-02-11] MEDS: carvediloL 12.5 MG TAB PO SCH (09:19)
[2024-02-11 09:23] LABS: BUN Creatinine Ratio 22.5 (10-20); Calcium 8.8 mg/dl (8.6-10.3); Creatinine Clr Calc Pharmacy 71.3 ml/min; Est GFR (African American) 93.9 ml/min; Magnesium 1.3 mg/dl (1.7-2.4); Phosphorus 2.6 mg/dl (2.5-4.9)
--- NOTE | 2024-02-11 12:44 | Pharmacy Report ---
Pharmacy Glycemic Sign Off Nt - Date of Service February 11, 2024 - Assessment & Plan ASSESSMENT: * Pharmacy was consulted by Dr Barton on 02/07/24 for glycemic control and to write orders per [facility] inpatient glycemic control protocol. * Major changes made by pharmacy to antidiabetic regimen include: * Titration of SC basal/bolus regimen * Patient has been receiving/requiring 6-17 units of insulin per day for adequate glycemic control * BSGs ranging 119-161 mg/dl * Regimen has only required minor adjustments over the past 48hrs to achieve this level of control * Do not anticipate further changes in patient status that would quickly deteriorate glycemic control (i.e. patient to be NPO for upcoming procedure, steroids tapering, starting tube feedings, etc). PLAN FOR INPATIENT GLYCEMIC CONTROL: No changes needed to current regimen. * Continue basal insulin with Lantus 5 units SQ HS * Continue NovoLog per scale ACHS/Q6hrs while NPO * Goal range = 120-150 mg/dl * CF = 30 mg/dl/unit * CR = 1 unit for ever 10 g CHO consumed * Pharmacy is signing off of glycemic consult and will no longer be making adjustments to inpatient regimen. Please feel free to re-consult if needed. Thank you.
[2024-02-11] MEDS: bisacodyL 5 MG TABEC PO ONE (13:30)
[2024-02-11] MEDS: DOCUSATE SODIUM/SENNA 50/8.6MG TAB PO SCH (13:30)
--- NOTE | 2024-02-11 13:57 | Hospitalist Progress Note ---
Date of Service February 11, 2024 Assessment & Plan (1) Severe sepsis: (2) Emphysematous cystitis: (3) Lactic acidosis: (4) Troponin level elevated: (5) (HFpEF) heart failure with preserved ejection fraction: (6) Permanent atrial fibrillation: (7) Diabetes mellitus, type II: Plan: Ms. Tavares is a 78-year-old female with history of CAD, CHF with preserved ejection fraction, atrial fibrillation on Coumadin, diabetes type 2, hypertension, severe abdominal stenosis, UTI, TIA, chronic anemia, RA on methotrexate, hypothyroidism, GERD, breast cancer, presented on 02/06 with diarrhea and weakness x 1 week. Admitted for severe sepsis and transferred to ICU on 02/07 for hemodynamic monitoring in ICU and acute liver failure. Patient transitioned from ICU to PCU on 02/09 without event, will downgrade further Plan to resume home medications in stepwise manner, however, will opt for looser bp control until appetite and mobility much improved. Likely start with lower dose coreg for BB PT/OT: recommended SNF, family declined. Recommends HH otherwise, however patient seems to have declined this resource as well #Severe sepsis secondary to complicated UTI, emphysematous cystitis #E coli Bacteremia Pt hypotensive, leukocytosis of 26K on admission, downtrending Lactic acid elevated at 9, downtrending to 2.3 Received NSS at the ER per sepsis protocol procalcitonin elevated at 29 Blood culture 02/06 pansensitive ecoli Urine culture 02/06 pansensitive ecoli Stool culture PCR negative; C. difficile PCR negative Chest x-ray no pneumonia MRSA swab negative Bio fire noting E coli in blood without suggestion of ESBL (CTX-M gene negative) General Surgery consulted, appreciate recs no obvious fourniers gangrene likely severe cystitis, possibly emphysematous urology consulted, appreciate recs Recommended OBGYN given gas foci on CT imaging, if suspicious for Guzman, transfer; suspicion low at this point. ID consulted, appreciate recs Initially on Imipenem 250 mg every 8 hours- switched to Cefepime per ID recs No concern for Guzman gangrene, continue Cefepime Treatment likely for duration of 14 days Treatment narrowed to CTX/Flagyl (given gi sx) MEDICAL DIAGNOSTIC RADIOGRAPHER consulted appreciate recs suspected Atrophic vaginitis rather than Fourniers Recommended Mycolog external cream to labia/vulvar introitus area twice a day Possible dispo tomorrow/Wednesday with PO regimen #Diarrhea, history of IBS #Chronic idiopathic constipation #FOBT positive iso iron supplementation reports history of diarrhea during times of illness Cdiff negative, stool pcr negative - Follows with [facility] - Last EGD 2017 - Last Colonoscopy 2022 Plan for OP GI follow up Bentyl for cramping Will consider bulking agents/lopermide as needed Advance diet to full liquid/as tolerated # Mechanical Fall secondary to Weakness Xray chest ordered- no acute fractures Lidoderm patch, PRN Tylenol PT/OT HH on d/c #Anion gap metabolic acidosis secondary to lactic acidosis resolved #Acute kidney injury on CKD stage III secondary to sepsis, likely prerenal etiology Resolved CT abdomen pelvis: No obstruction Nephrology consulted, appreciate recs acidosis recolved with sodium bicarb infusion, discontinued 02/07 discontinue IV LR @ 80cc #Troponin elevation likely secondary to demand ischemia, severe sepsis Denies cardiac symptoms trop 112,peaked and downtrending EKG no signs of ischemia Echocardiogram with no wall motion abn Continue telemetry monitoring #Acute liver failure, c/f shock liver *improving #Thrombocytopenia iso liver failure *improving ALT undetectable, AST downtrending, bili downtrending CT abdomen/pelvis: Liver unremarkable Likely secondary to sepsis Continue management as above Acute hepatitis panel pending Continue to trend LFTs and INR Lovenox bridge, Warfarin po daily #Ischemic hear disease 2/2 nonobstructive coronary disease #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 Nonischemic nuclear stress test 09/2021 Continue aspirin Hold Lipitor iso ASSISTED Resume coreg as able -Increased coreg to 12.5 mg BID #Chronic heart failure with preserved EF #Mild Aortic stenosis - TTE 2022: LVEF 64% - Home diuretics: Lasix 40mg daily, hold - GDMT: *BetaB: Coreg 37.5mg BID *RAAS: documented ADR 2/2 hyperK *Ilia: Spironolactone 25mg daily--held *SGLT: Jardiance 10mg daily--held (will discontinue given recurrent UTI) #Prior TIA 2/2 right vertebral artery stenosis 2016, continue asa hold statin 2/2 NIKA #Permanent Atrial fibrillation #Supratherapeutic INR *resolved Heart rate controlled INR 4.1, hold Coumadin INR daily Hold carvedilol until blood pressure stable Start DVT ppx #Hypertension #HX of recurrent Hyperkalemia on ACEi Held patients home regimen, resume in stepwise fashion as able: No longer on Hydralazine/Terazosin Clonidine 0.1mg BID (hold) Amlodipine 5mg BID (hold) #Diabetes type 2 Insulin sliding scale Pharmacy glycemic consult #Chronic anemia Hemoglobin stable Continue ferrous sulfate, folic acid #Rheumatoid arthritis On methotrexate-continue to hold until infection has been treated on folate supplementation Other chronic conditions Hypothyroidism-continue synthroid GERD-continue ppi History of breast cancer Severe abdominal aortic aneurysm- bp control DVT prophylaxis INR 1.5 resumed coumadin CODE STATUS Full code Disposition PT/OT: declined rehab, plan PCU, likely 2-3 days Admission and Anticipated Discharge Date Admission Date: February 07, 2024 Subjective NAEO Continue improvement Requesting bowel regimen as diarrhea has stopped and now concerned for constipation Reports near resolution of abdominal concerns Physical Exam Constitutional: WD/WN, vitals as above Respiratory: normal respiratory effort, lungs clear to auscultation Cardiovascular: irregularly irregular, rates in low 100s Results & Data Results & Data Vital Signs (Past 12 Hours) Vital Signs Temp Pulse Resp BP Pulse Ox O2 Del Method 02/11/24 11:06 36.7 C 105 H 19 119/76 98 Room Air 02/11/24 09:17 109 H 02/11/24 07:00 Room Air 02/11/24 06:58 36.8 C 107 H 19 154/83 H 96 Room Air 02/11/24 03:34 36.7 C 55 L 16 150/76 H 96 Room Air Laboratory Results BMP 02/11/24 02/11/24 07:19 08:45 Sodium Cancelled 136 Potassium Cancelled 4.0 Chloride Cancelled 105 Carbon Dioxide Cancelled 24 BUN Cancelled 16 Creatinine Cancelled 0.71 Glucose Cancelled 166 H Calcium Cancelled 8.8 Medications Administered Home Medications Medication Instructions Recorded Confirmed Last Taken aspirin 81 mg tablet,delayed 81 mg PO QAM 04/02/18 02/07/24 01/05/24 release (Ashly Low Dose Aspirin) acetaminophen 500 mg tablet 500 mg PO Q4H PRN Pain 10/02/21 02/07/24 01/25/23 22:00 levothyroxine 25 mcg tablet 25 mcg PO QAM 10/02/21 02/07/24 01/26/23 07:30 atorvastatin 80 mg tablet 80 mg PO DAILY 05/26/22 08/12/24 07/31/23 08:30 ferrous sulfate 325 mg (65 mg 325 mg PO QAM 11/20/21 02/07/24 01/25/23 08:30 iron) tablet carvedilol 25 mg tablet 37.5 mg PO AMPM 11/22/21 02/07/24 01/26/23 07:30 clonidine HCl 0.1 mg tablet 0.1 mg PO AMHS 11/22/21 02/07/24 01/25/23 21:30 sertraline 25 mg tablet 25 mg PO QAM 11/22/21 02/07/24 01/25/23 08:30 cholecalciferol (vitamin D3) 50 50 mcg PO DAILY 03/27/22 02/07/24 01/24/23 08:30 mcg (2,000 unit) capsule (Vitamin D3) amlodipine 5 mg tablet 5 mg PO [facility] 01/05/24 02/07/24 01/05/24 dicyclomine 10 mg capsule 10 mg PO BID PRN Abdominal Pain 01/05/24 02/07/24 Unknown folic acid 1 mg tablet 1 mg PO DAILY 01/05/24 02/07/24 Unknown furosemide 40 mg tablet 40 mg PO QAM 01/05/24 02/07/24 Unknown methotrexate sodium 2.5 mg tablet 15 mg PO WK 01/05/24 02/07/24 01/03/24 pregabalin 25 mg capsule 25 mg PO [facility] 01/05/24 02/07/24 Unknown spironolactone 25 mg tablet 25 mg PO QAM 01/05/24 02/07/24 Unknown warfarin 4 mg tablet (Jantoven) See Rx Instructions .Route .COMPLEX 01/05/24 02/07/24 01/04/24 pantoprazole 40 mg tablet,delayed 40 mg PO BID #60 tabs 01/08/24 02/07/24 Unknown release ascorbate calcium (vitamin C) 500 500 mg PO DAILY 01/10/24 02/07/24 Unknown mg tablet magnesium hydroxide 400 mg/5 mL 5 ml PO DAILY PRN Constipation 01/10/24 02/07/24 Unknown oral suspension (Dulcolax (magnesium hydroxide)) empagliflozin 10 mg tablet 10 mg PO DAILY 02/10/24 02/10/24 Unknown (Jardiance) Active Medications Generic Name Dose Route Start Last Admin Trade Name Alyssa PRN Reason Stop Dose Admin Aspirin 81 mg 02/08/24 09:00 02/11/24 09:19 Aspirin 81 Mg Ectab PO 03/09/24 08:59 81 mg QAM DIAMOND Administration Carvedilol 12.5 mg 02/11/24 08:00 02/11/24 09:19 Carvedilol 12.5 Mg Tab PO 03/12/24 07:59 12.5 mg BIDM DIAMOND Administration Dicyclomine HCl 10 mg 02/09/24 13:00 02/11/24 12:30 Dicyclomine Hcl 10 Mg Cap PO 03/10/24 12:59 10 mg QID DIAMOND Administration Enoxaparin Sodium 135 mg 02/09/24 11:00 02/11/24 11:51 Enoxaparin 150 Mg/Ml Syr SQ 03/10/24 10:59 135 mg Q24H DIAMOND Administration Ferrous Sulfate 325 mg 02/08/24 09:00 02/11/24 09:20 Ferrous Sulfate 325 Mg Tab PO 03/09/24 08:59 325 mg QAM DIAMOND Administration Folic Acid 1 mg 02/08/24 09:00 02/11/24 09:20 Folic Acid 1 Mg Tab PO 03/09/24 08:59 1 mg DAILY DIAMOND Administration Ceftriaxone Sodium 2,000 mg in 50 mls @ 100 mls/hr 02/09/24 12:00 02/11/24 13:08 Rocephin IV 02/22/24 23:59 Infused Q24H DIAMOND Infusion Metronidazole 500 mg in 100 mls @ 100 mls/hr 02/10/24 07:30 02/11/24 07:38 Flagyl IV 02/12/24 07:29 Infused Q8H DIAMOND Infusion Protocol Insulin Aspart 0 units 02/07/24 16:30 02/11/24 11:50 Insulin Aspart Per Unit Charge SC 03/08/24 16:29 3 units ACHS DIAMOND Administration Lactobacillus Acidophilus 1,250 mg 02/07/24 16:14 02/11/24 09:20 Advanced Probiotic 625 Mg Capsule PO 03/08/24 16:13 1,250 mg DAILY DIAMOND Administration Levothyroxine Sodium 25 mcg 02/08/24 06:30 02/11/24 06:28 Levothyroxine Sodium 25 Mcg Tablet PO 03/09/24 06:29 25 mcg DAILYBB DIAMOND Administration Lidocaine 1 patch 02/07/24 16:14 02/11/24 09:20 Lidocaine 5% 1 Patch TD 03/08/24 16:13 1 patch QAM DIAMOND Administration Miscellaneous 1 each 02/07/24 21:00 02/10/24 21:52 Remove Lidoderm Patch N/A 03/08/24 20:59 1 each DAILY@2100 DIAMOND Administration Nystatin/Triamcinolone Acetonide 1 appln 02/07/24 23:30 02/11/24 09:18 Nystatin/Triamcin Oint 15 Gm Tube EXT 03/08/24 23:29 1 appln BID DIAMOND Administration Pantoprazole Sodium 40 mg 02/07/24 21:00 02/11/24 09:20 Pantoprazole 40 Mg Tab PO 03/08/24 20:59 40 mg BID DIAMOND Administration Phenazopyridine HCl 100 mg 02/07/24 19:49 02/08/24 20:44 Phenazopyridine Hcl 100 Mg Tab PO 03/08/24 19:48 100 mg TID PRN Administration Dysuria Pregabalin 25 mg 02/07/24 21:00 02/08/24 10:16 Pregabalin 25 Mg Cap PO 03/08/24 20:59 Not Given AMHS DIAMOND Senna/Docusate Sodium 1 tab 02/11/24 13:15 02/11/24 13:30 Docusate Sodium/Senna 50/8.6mg Tab PO 03/12/24 13:14 1 tab QAM DIAMOND Administration Sertraline HCl 25 mg 02/08/24 09:00 02/11/24 09:20 Sertraline Hcl 50 Mg Tablet PO 03/09/24 08:59 25 mg QAM DIAMOND Administration Tramadol HCl 50 mg 02/07/24 16:10 02/08/24 00:17 Tramadol Hcl 50 Mg Tablet PO 03/08/24 16:09 50 mg Q8H PRN Administration Pain Warfarin Sodium 5 mg 02/10/24 16:00 02/10/24 16:17 Warfarin Sod 5 Mg Tab PO 03/11/24 15:59 5 mg DAILY@1600 DIAMOND Administration
[2024-02-11] MEDS: POLYETHYLENE (MIRALAX) 17 GM PACK PO SCH (14:31)
[2024-02-11] MEDS: MAGNESIUM SULFATE / D5W 1 GM/100 ML BAG IV SCH (14:34)
[2024-02-11 14:50] LABS: Hematocrit (blood only) 35.5 % (37.0-47.0); Hemoglobin 11.3 g/dl (12.0-16.0); Mean Corpuscular Hemoglobin 33.6 pg (25.0-34.0); Mean Corpuscular Hgb Conc 31.8 g/dL (32.0-36.0); Mean Corpuscular Volume 105.7 fL (80.0-100.0); Mean Platelet Volume 9.7 fL (9.4-12.4); Platelet Count 104 K/uL (130-400); RDW Coefficient of Variation 14.6 % (11.5-14.5); Red Blood Count 3.36 M/uL (4.20-5.40); White Blood Count 12.45 K/ul (4.8-10.8)
[2024-02-11 15:16] LABS: Albumin Level 3.4 gm/dl (3.4-5.0); Bilirubin Direct 0.4 mg/dl (0-0.2); Bilirubin,Total 1.4 mg/dl (0.2-1.0); Total Protein 6.1 gm/dl (6.0-8.3)
[2024-02-11] MEDS: LANTUS PER UNIT CHARGE SC SCH (20:13)
[2024-02-12 06:00] LABS: Hematocrit (blood only) 32.2 % (37.0-47.0); Hemoglobin 10.8 g/dl (12.0-16.0); Mean Corpuscular Hemoglobin 34.2 pg (25.0-34.0); Mean Corpuscular Hgb Conc 33.5 g/dL (32.0-36.0); Mean Corpuscular Volume 101.9 fL (80.0-100.0); Mean Platelet Volume 9.9 fL (9.4-12.4); Platelet Count 92 K/uL (130-400); RDW Standard Deviation 51.8 fL (36.4-46.3); Red Blood Count 3.16 M/uL (4.20-5.40); White Blood Count 9.77 K/ul (4.8-10.8)
[2024-02-12 06:09] LABS: BUN Creatinine Ratio 20.9 (10-20); Calcium 8.9 mg/dl (8.6-10.3); Creatinine Clr Calc Pharmacy 55.6 ml/min; Est GFR (African American) 69.5 ml/min; Potassium 4.2 mmol/L (3.5-5.1)
[2024-02-12 06:17] LABS: INR 1.5 (0.9-1.1); Prothrombin Time 15.4 Seconds (9.0-12.0)
[2024-02-12 06:51] LABS: Albumin Level 3.2 gm/dl (3.4-5.0); Bilirubin Direct 0.3 mg/dl (0-0.2); Bilirubin,Total 1.4 mg/dl (0.2-1.0); Magnesium 1.8 mg/dl (1.7-2.4); Phosphorus 3.4 mg/dl (2.5-4.9); Total Protein 5.5 gm/dl (6.0-8.3)
--- NOTE | 2024-02-12 07:37 | Hospitalist Progress Note ---
Date of Service February 12, 2024 Assessment & Plan (1) Severe sepsis: (2) Emphysematous cystitis: (3) Lactic acidosis: (4) Troponin level elevated: (5) (HFpEF) heart failure with preserved ejection fraction: (6) Permanent atrial fibrillation: (7) Diabetes mellitus, type II: Plan: Ms. Tavares is a 78-year-old female with history of CAD, CHF with preserved ejection fraction, atrial fibrillation on Coumadin, diabetes type 2, hypertension, severe abdominal stenosis, UTI, TIA, chronic anemia, RA on methotrexate, hypothyroidism, GERD, breast cancer, presented on 02/06 with diarrhea and weakness x 1 week. Admitted for severe sepsis and transferred to ICU on 02/07 for hemodynamic monitoring in ICU and acute liver failure. Patient transitioned from ICU to PCU on 02/09 without event, will downgrade further Plan to resume home medications in stepwise manner, however, will opt for looser bp control until appetite and mobility much improved. Likely start with lower dose coreg for BB PT/OT: recommended SNF, family declined. Recommends HH otherwise, however patient seems to have declined this resource as well #Severe sepsis secondary to complicated UTI, emphysematous cystitis #E coli Bacteremia Pt hypotensive, leukocytosis of 26K on admission, downtrending Lactic acid elevated at 9, downtrending to 2.3 Received NSS at the ER per sepsis protocol procalcitonin elevated at 29 Blood culture 02/06 pansensitive ecoli Urine culture 02/06 pansensitive ecoli Stool culture PCR negative; C. difficile PCR negative Chest x-ray no pneumonia MRSA swab negative Bio fire noting E coli in blood without suggestion of ESBL (CTX-M gene negative) General Surgery consulted, appreciate recs no obvious fourniers gangrene likely severe cystitis, possibly emphysematous urology consulted, appreciate recs Recommended OBGYN given gas foci on CT imaging, if suspicious for Guzman, transfer; suspicion low at this point. ID consulted, appreciate recs Initially on Imipenem 250 mg every 8 hours- switched to Cefepime per ID recs No concern for Guzman gangrene, continue Cefepime Treatment likely for duration of 14 days Transitioned to PO cipro 750mg BID EOT 02/20 Close monitoring of INR CALL CENTER SUPPORT CONSULTANT consulted appreciate recs suspected Atrophic vaginitis rather than Fourniers Recommended Mycolog external cream to labia/vulvar introitus area twice a day Possible dispo tomorr/Wednesday with PO regimen Watch INR in am to determine plan for AC recommendations #Diarrhea, history of IBS *resolved #Chronic idiopathic constipation #FOBT positive iso iron supplementation reports history of diarrhea during times of illness Cdiff negative, stool pcr negative - Follows with [facility] - Last EGD 2017 - Last Colonoscopy 2022 Plan for OP GI follow up Bentyl for cramping Will consider bulking agents/lopermide as needed Advance diet to full liquid/as tolerated # Mechanical Fall secondary to Weakness Xray chest ordered- no acute fractures Lidoderm patch, PRN Tylenol PT/OT declines services upon d/c #Anion gap metabolic acidosis secondary to lactic acidosis resolved #Acute kidney injury on CKD stage III secondary to sepsis, likely prerenal etiology Resolved CT abdomen pelvis: No obstruction Nephrology consulted, appreciate recs acidosis recolved with sodium bicarb infusion, discontinued 02/07 discontinue IV LR @ 80cc #Troponin elevation likely secondary to demand ischemia, severe sepsis Denies cardiac symptoms trop 112,peaked and downtrending EKG no signs of ischemia Echocardiogram with no wall motion abn Continue telemetry monitoring #Acute liver failure, c/f shock liver *improving #Thrombocytopenia iso liver failure *improving ALT undetectable, AST downtrending, bili downtrending CT abdomen/pelvis: Liver unremarkable Likely secondary to sepsis Continue management as above Acute hepatitis panel pending Continue to trend LFTs and INR Lovenox bridge, Warfarin po daily #Ischemic hear disease 2/2 nonobstructive coronary disease #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 Nonischemic nuclear stress test 09/2021 Continue aspirin Hold Lipitor iso RETIREMENT Resume coreg as able -coreg 25mg bid -resumed amlodipine -Start furosemide and spironolactone in am #Chronic heart failure with preserved EF #Mild Aortic stenosis - TTE 2022: LVEF 64% - Home diuretics: Lasix 40mg daily, tomorrow resume - GDMT: *BetaB: Coreg 37.5mg BID---currently 25mg BID *RAAS: documented ADR 2/2 hyperK *Ilia: Spironolactone 25mg daily--resume in am *SGLT: Jardiance 10mg daily--held (will discontinue given recurrent UTI) #Prior TIA 2/2 right vertebral artery stenosis 2016, continue asa hold statin 2/2 RETIREMENT #Permanent Atrial fibrillation #Supratherapeutic INR *resolved Heart rate controlled INR daily Coumadin and lovenix for now #Hypertension #HX of recurrent Hyperkalemia on ACEi Held patients home regimen, resume in stepwise fashion as able: No longer on Hydralazine/Terazosin Clonidine 0.1mg BID (hold) Amlodipine 5mg BID resume #Diabetes type 2 Insulin sliding scale Pharmacy glycemic consult #Chronic anemia Hemoglobin stable Continue ferrous sulfate, folic acid #Rheumatoid arthritis On methotrexate-continue to hold until infection has been treated on folate supplementation Other chronic conditions Hypothyroidism-continue synthroid GERD-continue ppi History of breast cancer Severe abdominal aortic aneurysm- bp control DVT prophylaxis INR 1.5 resumed coumadin CODE STATUS Full code Disposition PT/OT: declined rehab and HH, now med/surg, likely dispo tomorrow Admission and Anticipated Discharge Date Admission Date: February 07, 2024 Subjective NAEO reports continued improvement, reports plans to discharge tomorrow Adding back home regimen stepwise fashion States appetite is returning No acute concerns Physical Exam Constitutional: WD/WN, vitals as above Respiratory: normal respiratory effort, lungs clear to auscultation Cardiovascular: irregularly irregular Results & Data Results & Data Vital Signs (Past 12 Hours) Vital Signs Temp Pulse Pulse Resp BP Pulse Ox O2 Del Method 02/12/24 07:11 96 H 02/12/24 03:42 36.9 C 93 H 18 131/62 95 Room Air 02/11/24 23:35 104 H 02/11/24 23:25 37 C 109 H 16 134/66 98 Room Air 02/11/24 22:00 Room Air 02/11/24 19:59 Room Air Laboratory Results Short CBC 02/11/24 02/12/24 Range/Units 14:18 05:10 WBC 12.45 H 9.77 (4.8-10.8) K/ul Hgb 11.3 L 10.8 L (12.0-16.0) g/dl Hct 35.5 L 32.2 L (37.0-47.0) % Plt Count 104 L 92 L (130-400) K/uL BMP 02/11/24 02/11/24 02/12/24 07:19 08:45 05:10 Sodium Cancelled 136 136 Potassium Cancelled 4.0 4.2 Chloride Cancelled 105 104 Carbon Dioxide Cancelled 24 26 BUN Cancelled 16 19 Creatinine Cancelled 0.71 0.91 Glucose Cancelled 166 H 139 H Calcium Cancelled 8.8 8.9 Liver Function 02/11/24 02/12/24 Range/Units 14:18 05:10 Total Bilirubin 1.4 H 1.4 H (0.2-1.0) mg/dl Direct Bilirubin 0.4 H 0.3 H (0-0.2) mg/dl AST 176 H 107 H (13-39) U/L ALT 932 H 677 H (7-52) U/L Alkaline Phosphatase 107 H 94 (34-104) U/L Albumin 3.4 3.2 L (3.4-5.0) gm/dl Medications Administered Home Medications Medication Instructions Recorded Confirmed Last Taken aspirin 81 mg tablet,delayed 81 mg PO QAM 04/02/18 02/07/24 01/05/24 release (Ashly Low Dose Aspirin) acetaminophen 500 mg tablet 500 mg PO Q4H PRN Pain 10/02/21 02/07/24 01/25/23 22:00 levothyroxine 25 mcg tablet 25 mcg PO QAM 10/02/21 02/07/24 01/26/23 07:30 atorvastatin 80 mg tablet 80 mg PO DAILY 11/20/21 02/07/24 01/25/23 08:30 ferrous sulfate 325 mg (65 mg 325 mg PO QA 11/20/21 02/07/24 01/25/23 08:30 iron) tablet carvedilol 25 mg tablet 37.5 mg PO AMPM 11/22/21 02/07/24 01/26/23 07:30 clonidine HCl 0.1 mg tablet 0.1 mg PO [facility] 11/22/21 02/07/24 01/25/23 21:30 sertraline 25 mg tablet 25 mg PO QA 11/22/21 02/07/24 01/25/23 08:30 cholecalciferol (vitamin D3) 50 50 mcg PO DAILY 03/27/22 02/07/24 01/24/23 08:30 mcg (2,000 unit) capsule (Vitamin D3) amlodipine 5 mg tablet 5 mg PO [facility] 01/05/24 02/07/24 01/05/24 dicyclomine 10 mg capsule 10 mg PO BID PRN Abdominal Pain 01/05/24 02/07/24 Unknown folic acid 1 mg tablet 1 mg PO DAILY 01/05/24 02/07/24 Unknown furosemide 40 mg tablet 40 mg PO QAM 01/05/24 02/07/24 Unknown methotrexate sodium 2.5 mg tablet 15 mg PO WK 01/05/24 02/07/24 01/03/24 pregabalin 25 mg capsule 25 mg PO AMHS 01/05/24 02/07/24 Unknown spironolactone 25 mg tablet 25 mg PO QAM 01/05/24 02/07/24 Unknown warfarin 4 mg tablet (Juntoven) See Rx Instructions .Route .COMPLEX 01/05/24 02/07/24 01/04/24 pantoprazole 40 mg tablet,delayed 40 mg PO BID #60 tabs 01/08/24 02/07/24 Unknown release ascorbate calcium (vitamin C) 500 500 mg PO DAILY 01/10/24 02/07/24 Unknown mg tablet magnesium hydroxide 400 mg/5 mL 5 ml PO DAILY PRN Constipation 01/10/24 02/07/24 Unknown oral suspension (Dulcolax (magnesium hydroxide)) empagliflozin 10 mg tablet 10 mg PO DAILY 02/10/24 02/10/24 Unknown (Jardiance) Active Medications Generic Name Dose Route Start Last Admin Trade Name Alyssa PRN Reason Stop Dose Admin Aspirin 81 mg 02/08/24 09:00 02/11/24 09:19 Aspirin 81 Mg Ectab PO 03/09/24 08:59 81 mg QAM DIAMOND Administration Dicyclomine HCl 10 mg 02/09/24 13:00 02/11/24 19:51 Dicyclomine Hcl 10 Mg Cap PO 03/10/24 12:59 10 mg QID DIAMOND Administration Enoxaparin Sodium 135 mg 02/09/24 11:00 02/11/24 11:51 Enoxaparin 150 Mg/Ml Syr SQ 03/10/24 10:59 135 mg Q24H DIAMOND Administration Ferrous Sulfate 325 mg 02/08/24 09:00 02/11/24 09:20 Ferrous Sulfate 325 Mg Tab PO 03/09/24 08:59 325 mg QAM DIAMOND Administration Folic Acid 1 mg 02/08/24 09:00 02/11/24 09:20 Folic Acid 1 Mg Tab PO 03/09/24 08:59 1 mg DAILY DIAMOND Administration Insulin Aspart 0 units 02/07/24 16:30 02/11/24 20:08 Insulin Aspart Per Unit Charge UT 03/08/24 16:29 Not Given ACHS DIAMOND Insulin Glargine 5 units 02/11/24 21:00 02/11/24 20:13 Lantus Per Unit Charge UT 03/09/24 20:59 5 units HS DIAMOND Administration Lactobacillus Acidophilus 1,250 mg 02/07/24 16:14 02/11/24 09:20 Advanced Probiotic 625 Mg Capsule PO 03/08/24 16:13 1,250 mg DAILY DIAMOND Administration Levothyroxine Sodium 25 mcg 02/08/24 06:30 02/12/24 05:46 Levothyroxine Sodium 25 Mcg Tablet PO 03/09/24 06:29 25 mcg DAILYBB DIAMOND Administration Lidocaine 1 patch 02/07/24 16:14 02/11/24 09:20 Lidocaine 5% 1 Patch TD 03/08/24 16:13 1 patch QAM DIAMOND Administration Miscellaneous 1 each 02/07/24 21:00 02/11/24 19:53 Remove Lidoderm Patch N/A 03/08/24 20:59 1 each DAILY@2100 DIAMOND Administration Nystatin/Triamcinolone Acetonide 1 appln 02/07/24 23:30 02/11/24 19:52 Nystatin/Triamcin Oint 15 Gm Tube EXT 03/08/24 23:29 1 appln BID DIAMOND Administration Pantoprazole Sodium 40 mg 02/07/24 21:00 02/11/24 19:52 Pantoprazole 40 Mg Tab PO 03/08/24 20:59 40 mg BID DIAMOND Administration Phenazopyridine HCl 100 mg 02/07/24 19:49 02/08/24 20:44 Phenazopyridine Hcl 100 Mg Tab PO 03/08/24 19:48 100 mg TID PRN Administration Dysuria Polyethylene Glycol 17 gm 02/11/24 13:15 02/11/24 14:31 Polyethylene (Miralax) 17 Gm Pack PO 03/12/24 13:14 17 gm DAILY DIAMOND Administration Pregabalin 25 mg 02/07/24 21:00 02/08/24 10:16 Pregabalin 25 Mg Cap PO 03/08/24 20:59 Not Given AMHS DIAMOND Senna/Docusate Sodium 1 tab 02/11/24 13:15 02/11/24 13:30 Docusate Sodium/Senna 50/8.6mg Tab PO 03/12/24 13:14 1 tab QAM DIAMOND Administration Sertraline HCl 25 mg 02/08/24 09:00 02/11/24 09:20 Sertraline Hcl 50 Mg Tablet PO 03/09/24 08:59 25 mg QAM DIAMOND Administration Tramadol HCl 50 mg 02/07/24 16:10 02/08/24 00:17 Tramadol Hcl 50 Mg Tablet PO 03/08/24 16:09 50 mg Q8H PRN Administration Pain Warfarin Sodium 5 mg 02/10/24 16:00 02/11/24 16:47 Warfarin Sod 5 Mg Tab PO 03/11/24 15:59 5 mg DAILY@1600 DIAMOND Administration
[2024-02-12] MEDS: carvediloL 25 MG TAB PO SCH (08:39)
[2024-02-12] MEDS: CIPROFLOXACIN 250 MG TAB PO SCH (08:39)
[2024-02-12] MEDS: amLODIPine BESYLATE 5 MG TAB PO SCH (12:40)
[2024-02-13 03:11] VITALS: RESP 18; TEMP 98.4
[2024-02-13 06:51] LABS: Hematocrit (blood only) 32.8 % (37.0-47.0); Hemoglobin 10.6 g/dl (12.0-16.0); Mean Corpuscular Hemoglobin 34.4 pg (25.0-34.0); Mean Corpuscular Hgb Conc 32.3 g/dL (32.0-36.0); Mean Corpuscular Volume 106.5 fL (80.0-100.0); Mean Platelet Volume 9.5 fL (9.4-12.4); Platelet Count 109 K/uL (130-400); RDW Coefficient of Variation 14.6 % (11.5-14.5); Red Blood Count 3.08 M/uL (4.20-5.40); White Blood Count 9.67 K/ul (4.8-10.8)
[2024-02-13 07:07] LABS: BUN Creatinine Ratio 22.5 (10-20); Calcium 9.1 mg/dl (8.6-10.3); Creatinine Clr Calc Pharmacy 62.5 ml/min; Est GFR (African American) 81.3 ml/min; Est GFR (Non-African American) 70.1 ml/min; Magnesium 1.4 mg/dl (1.7-2.4); Potassium 4.3 mmol/L (3.5-5.1)
[2024-02-13 07:29] LABS: INR 1.7 (0.9-1.1); Prothrombin Time 17.4 Seconds (9.0-12.0)
[2024-02-13] MEDS: FUROSEMIDE 40 MG TAB PO SCH (07:40)
[2024-02-13] MEDS: SPIRONOLACTONE 25 MG TAB PO SCH (07:41)
[2024-02-13 07:55] VITALS: BP 135/81; O2SAT 97
[2024-02-13] MEDS: MAGNESIUM CHLORIDE W/CALCIUM 64MG DELAYED REL TAB PO SCH (08:41)
[2024-02-13 10:35] VITALS: PULSE 68
--- NOTE | 2024-02-13 10:39 | Discharge Summary ---
Discharge Summary Date of Service February 13, 2024 Principal Dx & Hospital Course #1 = Principal Diagnosis (1) Severe sepsis: (2) Emphysematous cystitis: (3) Lactic acidosis: (4) Troponin level elevated: (5) (HFpEF) heart failure with preserved ejection fraction: (6) Permanent atrial fibrillation: (7) Diabetes mellitus, type II: Ms. Tavares is a 78-year-old female with history of CAD, CHF with preserved ejection fraction, atrial fibrillation on Coumadin, diabetes type 2, hypertension, severe abdominal stenosis, UTI, TIA, chronic anemia, RA on methotrexate, hypothyroidism, GERD, breast cancer, presented on 02/06 with diarrhea and weakness x 1 week. Admitted for severe sepsis and transferred to ICU on 02/07 for hemodynamic monitoring in ICU and acute liver failure. Patient did not require pressors. Patient improved with IV antibiotics. Cultures with pansensitive ecoli on urine and blood cultures. There was concern for a nec fasc given CT findings, however, after eval from Surgery and OBGYN, this concern was less likley and patient started on topical nystatin. Patient transitioned from ICU to PCU on 02/09 without event and downgraded to [facility] with continued improvement. LFTs continued to downtrend. PT/OT: recommended SNF, family declined. Recommends HH otherwise, however patient seems to have declined this resource as well Patient ultimately transitioned to ciprofloxacin 750mg bid for complicated cystitis and bacteremia. Patient to follow up closely with PCP and Anticoag clinic given cipro/warfarin interaction. #Severe sepsis secondary to complicated UTI, emphysematous cystitis #E coli Bacteremia Pt hypotensive, leukocytosis of 26K on admission, downtrending Lactic acid elevated at 9, downtrending to 2.3 Received NSS at the ER per sepsis protocol procalcitonin elevated at 29 Blood culture 02/06 pansensitive ecoli Urine culture 02/06 pansensitive ecoli Stool culture PCR negative; C. difficile PCR negative Chest x-ray no pneumonia MRSA swab negative Bio fire noting E coli in blood without suggestion of ESBL (CTX-M gene negative) General Surgery consulted, appreciate recs no obvious fourniers gangrene likely severe cystitis, possibly emphysematous urology consulted, appreciate recs Recommended OBGYN given gas foci on CT imaging, if suspicious for Guzman, transfer; suspicion low at this point. ID consulted, appreciate recs Initially on Imipenem 250 mg every 8 hours- switched to Cefepime per ID recs No concern for Guzman gangrene, continue Cefepime Treatment likely for duration of 14 days Transitioned to PO cipro 750mg BID EOT 02/20 Close monitoring of INR MEDICAL REVIEWER consulted appreciate recs suspected Atrophic vaginitis rather than Fourniers Recommended Mycolog external cream to labia/vulvar introitus area twice a day -Continued for 14 more days. #Diarrhea, history of IBS *resolved #Chronic idiopathic constipation #FOBT positive iso iron supplementation reports history of diarrhea during times of illness Cdiff negative, stool pcr negative - [facility]s [facility] - Last EGD 2017 - Last Colonoscopy 2022 Plan for OP GI follow up # Mechanical Fall secondary to Weakness Xray chest ordered- no acute fractures Lidoderm patch, PRN Tylenol PT/OT declines services upon d/c #Anion gap metabolic acidosis secondary to lactic acidosis resolved #Acute kidney injury on CKD stage III secondary to sepsis, likely prerenal etiology Resolved CT abdomen pelvis: No obstruction Nephrology consulted, appreciate recs acidosis recolved with sodium bicarb infusion, discontinued 02/07 #Troponin elevation likely secondary to demand ischemia, severe sepsis Denies cardiac symptoms trop 112,peaked and downtrending EKG no signs of ischemia Echocardiogram with no wall motion abn #Acute liver failure, c/f shock liver *improving #Thrombocytopenia iso liver failure *improving ALT undetectable, AST downtrending, bili downtrending CT abdomen/pelvis: Liver unremarkable Likely secondary to sepsis Continue management as above Acute hepatitis panel negative Follow up OP LFTS #Ischemic hear disease 2/2 nonobstructive coronary disease #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 Nonischemic nuclear stress test 09/2021 Continue aspirin Hold Lipitor iso SNF Resumed home regimen with the exeception of clonidine, can discuss resumpation as op #Chronic heart failure with preserved EF #Mild Aortic stenosis - TTE 2022: LVEF 64% - Home diuretics: Lasix 40mg daily, resume - GDMT: *BetaB: Coreg 37.5mg BID---resumed *RAAS: documented ADR 2/2 hyperK *Ilia: Spironolactone 25mg daily--resumed *SGLT: Jardiance 10mg daily--held (will discontinue given recurrent UTI) #Prior TIA 2/2 right vertebral artery stenosis 2016, continue asa hold statin 2/2 NIKA #Permanent Atrial fibrillation #Supratherapeutic INR *resolved Heart rate controlled coumadin home dosing Follow up [facility]TM clinic #Hypertension #HX of recurrent Hyperkalemia on ACEi Held patients home regimen, resume in stepwise fashion as able: No longer on Hydralazine/Terazosin Clonidine 0.1mg BID (hold) Amlodipine 5mg BID resume #Diabetes type 2 resume home regimen #Chronic anemia Hemoglobin stable Continue ferrous sulfate, folic acid #Rheumatoid arthritis On methotrexate-continue to hold until infection has been treated on folate supplementation Other chronic conditions Hypothyroidism-continue synthroid GERD-continue ppi History of breast cancer Severe abdominal aortic aneurysm- bp control Notes For Next Care Provider Needs CMP in 1 week for liver function Needs follow up with GI [facility] clinic follow up Medication Changes From Visit cipro 750mg BID EOT 02/20 Hold clonidine Hold Jardiance 2/2 severe and frequent UTI Hold MTX until completion of ABX Resume home warfarin Admission HPI Per Admitting Provider 78-year-old female with history of CAD, CHF with preserved ejection fraction, atrial fibrillation on Coumadin, diabetes type 2, hypertension, severe abdominal stenosis, UTI, TIA, chronic anemia, RA on methotrexate, hypothyroidism, GERD, breast cancer, presenting with diarrhea and weakness x 1 week. Patient reports 1 week history of diarrhea- loose, water, nonbloody, associated with generalized abdominal cramping, nausea/vomitng, progressive weakness to the point that she could not get up from bed. She had a fall yesterday as she was too weak to ambulate. Patient also reports dysuria, no hematuria. At the ER, patient was received afebrile blood pressure was systolic 90s. WBC 26,000, creatinine 1.7 with bicarb of 16, lactic acid 9, troponin 112. Urinalysis showing possible UTI CT abdomen and pelvis showing possible emphysematous cystitis On exam, seen resting in bed, not in distress, weak. State she has right sided chest wall pain but no shortness of breath, cough etc Admission Exam Per Admitting Provider General: Alert, frail-appearing HEENT: Normocephalic, trachea midline Eyes: Extraocular eye movement is intact, no scleral erythema Pulmonary: Clear to auscultation bilaterally, no wheezing Cardio: Mildly tachycardic rate and irregular rhythm GI: Abdomen is soft to palpation, there is mild distention and mild tenderness to palpation in the lower abdomen, no guarding or rigidity : No suprapubic tenderness MSK: No evidence of trauma or malformation of the extremities, no edema Skin: No evidence of rash Neuro: Alert, no focal deficits, equal bilateral recovery rn strength, symmetrical facial movements are appreciated, patient ambulates all extremity spontaneously Psychiatric: Cooperative Discharge Exam Constitutional WD/WN, vitals as above Respiratory irregularly irregular Gastrointestinal (Abdomen) normal bowel sounds, soft, nontender, no hepatosplenomegaly Updated Medication List Medication Instructions Recorded Confirmed Type aspirin 81 mg tablet,delayed 81 mg PO QAM 04/02/18 02/07/24 History release (Ashly Low Dose Aspirin) acetaminophen 500 mg tablet 500 mg PO Q4H PRN Pain 10/02/21 02/07/24 History levothyroxine 25 mcg tablet 25 mcg PO QAM 10/02/21 02/07/24 History atorvastatin 80 mg tablet 80 mg PO DAILY 11/20/21 02/07/24 History ferrous sulfate 325 mg (65 mg 325 mg PO QAM 11/20/21 02/07/24 History iron) tablet carvedilol 25 mg tablet 37.5 mg PO AMPM 11/22/21 02/07/24 History clonidine HCl 0.1 mg tablet 0.1 mg PO AMHS 11/22/21 02/07/24 History sertraline 25 mg tablet 25 mg PO QAM 11/22/21 02/07/24 History cholecalciferol (vitamin D3) 50 50 mcg PO DAILY 03/27/22 02/07/24 History mcg (2,000 unit) capsule (Vitamin D3) amlodipine 5 mg tablet 5 mg PO AMHS 01/05/24 02/07/24 History dicyclomine 10 mg capsule 10 mg PO BID PRN Abdominal Pain 01/05/24 02/07/24 History folic acid 1 mg tablet 1 mg PO DAILY 01/05/24 02/07/24 History furosemide 40 mg tablet 40 mg PO QAM 01/05/24 02/07/24 History methotrexate sodium 2.5 mg tablet 15 mg PO WK 01/05/24 02/07/24 History pregabalin 25 mg capsule 25 mg PO AMHS 01/05/24 02/07/24 History spironolactone 25 mg tablet 25 mg PO QAM 01/05/24 02/07/24 History warfarin 4 mg tablet (Jantoven) See Rx Instructions .Route .COMPLEX 01/05/24 02/07/24 History pantoprazole 40 mg tablet,delayed 40 mg PO BID #60 tabs 01/08/24 02/07/24 Rx release ascorbate calcium (vitamin C) 500 500 mg PO DAILY 01/10/24 02/07/24 History mg tablet magnesium hydroxide 400 mg/5 mL 5 ml PO DAILY PRN Constipation 01/10/24 02/07/24 History oral suspension (Dulcolax (magnesium hydroxide)) empagliflozin 10 mg tablet 10 mg PO DAILY 02/10/24 02/10/24 History (Jardiance) ciprofloxacin HCl 750 mg tablet 750 mg PO BID 9 days #18 tabs 02/13/24 Rx magnesium chloride 64 mg 64 mg PO DAILY #30 tabs 02/13/24 Rx (magnesium chloride) tablet,delayed release (Mag 64) nystatin-triamcinolone 100,000 1 applic topical BID 2 weeks #30 02/13/24 Rx unit/g-0.1 % topical cream grams Hospital Stay Data Consultations 02/07/24 16:14 Consult Infectious Diseases Routine Consult Urology Routine 02/07/24 17:41 Consult Gynecology Stat 02/07/24 17:42 Consult General Surgery Stat 02/07/24 21:10 Consult Nephrology Routine 02/08/24 05:24 Consult Gastroenterology Routine 02/08/24 06:09 Consult Manager Baby Routine Diagnostic Imagining Performed 02/07/24 12:22 CT abd pelvis wo con Stat 02/08/24 07:14 US duplex portal hepatic veins Stat Pending Results Patient Have Any Pending Studies at Discharge: No Discharge Instructions Given to Patient (Per Discharging Provider) You were admitted for sepsis due to bacteria in blood (bacteremia) and severe urinary tract infection. You were treated with IV antibiotics and transitioned to oral antibiotics. Please continue the following -Ciprofloxacin 750mg two times a day. Your next dose is this evening. Please take until all pills are completed. You had low blood pressures due to sepsis. Your pressures are starting to return to normal. Please continue all home medications except: -HOLD clonidine 0.1mg two times a day until directed to resume by your primary care provider You were noted to have persistently low magnesium. Please consider a daily supplement, one recommendation has been sent to your pharmacy. Please HOLD Jardiance. Given the recent UTI, please discuss if resuming is warranted and at what time. Please HOLD Methotrexate until complete with your antibiotics. You had some noted vaginal irritation, please continue to apply the topical nystatin two times a day to the labia/vulvar introitus (opening). Please continue home dosing of Warfarin. Follow up with your Anticoagulation clinic to discuss dosing and monitor INR levels. It was recommended you participate at rehab or go home with home health services, however, you reported sufficent support at home. Total Time Total Time Spent Total Time Spent (In Minutes): 35
== END 2024-02-13 11:41 | disposition home or self-care (01) | DRG 871 ==
LOC: ED 11:19 → 2S 14:19 → SUATTDRO 14:19 → 2S 15:40 → 1E 02-08 06:07 → 2S 02-09 19:07 → 2W 02-11 21:52